=== PATIENT | male | born 1960 | race Caucasian/White ===

== ENCOUNTER → 2017-05-13 08:49 | Outpatient (CLI) | payer OTHER, SELFPAY ==
[2017-05-13 10:08] LABS: Absolute Lymphocyte Count 1.38 X10^3/ul (0.83-4.51); Absolute Neutrophil Count 2.8 X10^3/uL (2.0-7.7); Basophil# 0.06 X10^3/uL; Basophil% 1.3 % (0-1); Eosinophil# 0.06 X10^3/uL; Eosinophils% 1.3 % (0-5); Hematocrit 47.2 % (40-54); Hemoglobin 15.5 g/dl (13.0-16.5); Lymphocyte # 1.38 X10^3/ul (4.0); Lymphocyte % 28.9 % (19-41); Mean Corp Hgb Conc 32.8 g/gl (32-36); Mean Corpuscular Hgb 29.8 pg (27.0-32.0); Mean Corpuscular Volume 90.6 fL (80-94); Mean Platelet Vol. 10.5 fl (6.2-12.0); Monocyte% 10.5 % (0-10); Neutrophil # 2.76 X10^3/uL (2.7-7.7); Neutrophil % 57.8 % (47-70); POSITIVE COUNT NO; POSITIVE DIFFERENTIAL NO; POSITIVE MORPHOLOGY NO; Platelet Count 218 K/mm3 (150-450); RBC Distribution Width SD 43.3 fl (35.1-43.9); Red Blood Count 5.21 M/mm3 (4.6-6.2); White Blood Count 4.8 K/mm3 (4.4-11.0)
[2017-05-13 10:25] LABS: ALB/GLOB Ratio 1.1 RATIO (0.9-2.4); AST(SGOT) 20 U/L (15-37); Alanine Aminotransfer ALT/SGPT 21 U/L (16-61); Albumin, Serum 3.7 g/dL (3.2-5.0); Alkaline Phosphatase 82 U/L (45-117); Anion Gap 5 (5-15); BUN 12 mg/dL (7-18); BUN/Creat Ratio 15.7 RATIO (10-20); Calcium,Total 8.4 mg/dL (8.5-10.1); Chloride 105 mmol/L (98-107); Creatinine, Serum 0.76 mg/dL (0.70-1.30); EST Glomerular Filtration Rate 112 mL/min (>60); Est Glom Filt Rate - Afr Amer 135 mL/min (>60); Globulin 3.5 g/dL (2.2-4.2); Glucose 94 mg/dL (74-106); Potassium 4.2 mmol/L (3.5-5.1); Protein, Total 7.2 g/dL (6.4-8.2); Sodium Level 139 mmol/L (136-145)
== END ==
PROVIDERS: Family Provider Family Medicine; PCP Family Medicine; Visit Provider Family Medicine
DX: K62.5 Hemorrhage of anus and rectum (principal); R10.13 Epigastric pain
CPT/HCPCS: 36415; 80053; 85025

== ENCOUNTER 2017-07-01 19:18 | Emergency (ER) | payer OTHER, SELFPAY ==
[2017-07-01 19:19] VITALS: BP 145/88; PULSE 91; RESP 16; TEMP 37.1; O2SAT 96; BMI 25.0
--- NOTE | 2017-07-01 20:23 | RAD_ITS ---
STUDY: X-RAY - RIGHT KNEE REASON FOR EXAM: Male, 56 years old. Arthritis. Pain. TECHNIQUE: 4 view(s) of the knee. COMPARISON: None. FINDINGS: Normal visualized distal femur. Normal visualized proximal tibia and fibula. Normal proximal tibiofibular articulation. There is mild degenerative arthrosis of the medial femorotibial compartment. There is severe degenerative arthrosis of the lateral femorotibial compartment with severe joint space narrowing. Normal patellofemoral articulation. There is a moderate volume joint effusion. There is valgus angulation and lateral subluxation of the tibia. The soft tissue structures are unremarkable. RAD/Knee 4 or More Views IMPRESSION: No acute fracture or dislocation. Degenerative changes. Moderate effusion. Electronically Signed: Oscar Sher MD at 20:37 EDT , Service support ,
[2017-07-01] MEDS: Ibuprofen 400 MG Tablet 800 MG PO (20:34)
--- NOTE | 2017-07-01 22:02 | ED.DCSUM_ITS ---
- ER Visit Summary Date of Service: 07/01/17 Chief Complaint: [] Right knee pain/swelling History of Present Illness: The patient is a 56 M [] complaining of right knee pain/swelling beginning today. Reports she has a history of osteoarthritis in the knee. Denies a history of gout. He does have a history of pulmonary embolus for which he is chronically on Coumadin. Denies any injury to the knee. Patient reports he has so much swelling currently that he has a hard time flexing the leg and has painful ambulation. Denies fever or rash. No other complaints at this time. Physical Examination: [] There is significant swelling to the right knee. There is no warmth. There is no significant tenderness to palpation. There is difficulty with flexion past 15? as a result of pain. Remainder of exam is unremarkable. Test Results: [] Right knee x-ray 4 view reveals significant osteoarthritis with [id number] in the medial compartment. Emergency Department Course and Treatment: [] Patient provided ibuprofen orally for analgesia and swelling, Ritesh bandage. Patient was encouraged to follow-up with orthopedic surgeon for arthrocentesis and evaluation for total knee replacement. He voices understanding of discharge instructions. He was encouraged to ice. Return if symptoms worsen. Treatment Plan: [] Follow-up with orthopedic surgery. Disposition: [] Discharge, stable. Impression: [] Severe right knee osteoarthritis This note was generated with Llesiant dictation software. It may contain incorrect words, spelling, and punctuation that were not noted in review of the chart prior to signing ED Disposition - Plan for ED Patient: Chief Complaint: Lower Extremity Injury Referrals: Dc Glez MD [Primary Care Provider] -
--- NOTE | 2017-07-01 22:02 | ED.DEP ---
ED Disposition - Plan for ED Patient: Disposition: Home or Assisted Living Chief Complaint: Lower Extremity Injury Instructions: ED Effusion Knee, Osteoarthritis: Coping with Pain Prescriptions: Ibuprofen 800 mg PO TID PRN PRN #30 tab PRN Reason: Pain Referrals: Dc Glez MD [Primary Care Provider] -
[2017-07-01 22:14] VITALS: BP 141/70; PULSE 85; RESP 14; O2SAT 99
== END 2017-07-01 22:15 | disposition home or self-care (01) ==
PROVIDERS: Emergency Provider Emergency Medicine; Family Provider Family Medicine; PCP Family Medicine
DX: M17.11 Unilateral primary osteoarthritis, right knee (principal); Z86.711 Personal history of pulmonary embolism; Z79.01 Long term (current) use of anticoagulants
CPT/HCPCS: 73564; 99283

== ENCOUNTER 2017-08-15 07:18 | Inpatient (IN) | payer OTHER, SELFPAY ==
[2017-08-05 15:15] LABS: Hematocrit 36.6 % (40-54); Hemoglobin 11.5 g/dl (13.0-16.5); Mean Corp Hgb Conc 31.4 g/gl (32-36); Mean Corpuscular Hgb 28.9 pg (27.0-32.0); Mean Platelet Vol. 9.3 fl (6.2-12.0); Platelet Count 255 K/mm3 (150-450); RBC Distribution Width CV 14.4 % (11.6-14.6); RBC Distribution Width SD 48.4 fl (35.1-43.9); Red Blood Count 3.98 M/mm3 (4.6-6.2); White Blood Count 6.4 K/mm3 (4.4-11.0)
[2017-08-05 15:16] LABS: Scan Indicated on CBC? Y/N NO
--- NOTE | 2017-08-05 15:31 | RAD_ITS ---
STUDY: X-RAY CHEST REASON FOR EXAM: Male, 56 years old. Pre-op TECHNIQUE: Frontal and lateral views of the chest. COMPARISON: None. FINDINGS: There is hyperinflation of the lungs consistent with chronic obstructive lung disease (COPD). No infiltrates. No effusions. There is no demonstrated pleural abnormality. Normal size heart. Normal mediastinum and delia. Normal visualized pulmonary arteries. Normal visualized aortic arch and descending thoracic aorta. There are diffuse degenerative changes of the visualized thoracic spine. Normal visualized ribs, clavicles, and shoulders. There is no demonstrated abnormality of the visualized soft tissue structures of the upper abdomen. RAD/Chest PA and Lateral IMPRESSION: There are findings consistent with COPD. There is no evidence of acute chest disease. Electronically Signed: Oscar Sher MD at 15:40 EDT , Service support ,
[2017-08-05 15:39] VITALS: BP 109/63; PULSE 67; RESP 14; TEMP 37.4; O2SAT 97; BMI 24.7
--- NOTE | 2017-08-05 15:45 | EKG12_ITS ---
Test Reason : PRE OP Blood Pressure : / mmHG Vent. Rate : 057 BPM Atrial Rate : 057 BPM P-R Int : 144 ms QRS Dur : 078 ms QT Int : 406 ms P-R-T Axes : 048 019 022 degrees QTc Int : 395 ms Sinus bradycardia Otherwise normal ECG Confirmed by JENNIFER CONDON, SHAKEEL ([id number]), book or script editor MINA GRAYSON ([id number]) on 08/10/2017 3:18:37 PM Referred By: Hussain Flores Confirmed By:SHAKEEL RODRIGUEZ MD
[2017-08-05 15:55] LABS: Anion Gap 5 (5-15); BUN 14 mg/dL (7-18); BUN/Creat Ratio 17.7 RATIO (10-20); Calcium,Total 8.3 mg/dL (8.5-10.1); Chloride 106 mmol/L (98-107); Creatinine, Serum 0.79 mg/dL (0.70-1.30); EST Glomerular Filtration Rate 108 mL/min (>60); Est Glom Filt Rate - Afr Amer 130 mL/min (>60); Glucose 94 mg/dL (74-106); Potassium 4.3 mmol/L (3.5-5.1); Sodium Level 143 mmol/L (136-145)
[2017-08-05 16:50] LABS: AST(SGOT) 16 U/L (15-37); Alanine Aminotransfer ALT/SGPT 14 U/L (16-61); Albumin, Serum 3.1 g/dL (3.2-5.0); Alkaline Phosphatase 96 U/L (45-117); Bilirubin, Direct 0.15 mg/dL (0.00-0.30); Protein, Total 7.1 g/dL (6.4-8.2)
[2017-08-15] VITALS (20 sets, daily range): BP systolic 77–122; BP diastolic 39–85; PULSE 52–95; RESP 14–18; TEMP 36.3–37.2; O2SAT 97–100; BMI 24.7
[2017-08-15] MEDS: Acetaminophen 500 MG Tablet 1000 MG PO ×3 (06:03→22:57)
[2017-08-15] MEDS: oxyCODONE HCl Cr 10 MG Tablet PO (06:03)
[2017-08-15] MEDS: Lactated Ringers 1,000 ML 999 ML IV ×2 (06:30→13:30)
[2017-08-15 06:45] LABS: Partial Thromboplast Time 28.8 Seconds (24.1-36.2); Prothrombin Time (Protime)PT. 13.5 SECONDS (11.7-14.9)
[2017-08-15] MEDS: Cefazolin 2 GM in 0.9% Normal Saline 100 ML IV (07:22)
--- NOTE | 2017-08-15 07:25 | PCM.OPRPT ---
Report of Operation Date of Procedure: 08/15/17 Pre-Operative Diagnosis: Severe end-stage osteoarthritis right knee Post-Operative Diagnosis: Severe end-stage osteoarthritis right knee Surgery/Procedure Performed:: Total knee arthroplasty right Description of Surgical Findings:: Eburnation of bone, periarticular osteophytes consistent with tricompartmental osteoarthritis heat treat worker: Hussain Flores Type of Anesthesia:: Spinal Anesthesiologist: Chris Huber Special Medications: txa Specimen's removed: Bone and soft tissue Estimated Blood Loss (mL): 100 Fluids Replaced: See anesthesia report Description of Procedure: Implants: Beth triathlon size 5 CR femur, 6 tibia, 35 x 10 mm patella all cemented with Simplex. 11 mm ultra congruent CR implant Indications: Patient has severe end-stage osteoarthritis diagnosed via x-rays in the knee. They have failed all forms of conservative measures including activity modification, injections, anti-inflammatories, use of assistive device. The patient has pain that affects on a daily basis and prevents him from doing things that they enjoyed. They have elected to undergo the above procedure. The risks of the procedure were discussed at length and their questions were answered. Procedure description: The patient was greeted in the preoperative area. The right knee was then marked with a surgical marker. Patient was then taken to or [address]. They were administered a dose of antibiotics as well as tranexamic acid. Once adequate anesthesia was obtained and airway was secured to placed in supine position on the operating room table. A well-padded tourniquet was placed on the affected extremity. Leg was then prepped and draped in the usual sterile fashion from the knee down. Ioban was used on the skin. Surgical timeout was then performed and confirmed with all present. Six-inch Esmarch was used to examine the limb and tourniquet was then inflated to 250 mmHg. A longitudinal incision was then planned and carried out in the anterior aspect of the knee. The dissection was then carried the length of the incision the extensor mechanism was identified. Standard medial parapatellar arthrotomy was then performed revealing severe eburnation of bone and periarticular osteophytes. There is complete loss of cartilage especially in the medial compartment with varus alignment. Anterior fat pad was removed for visualization purposes and the anterior medial aspect of the tibia was skeletonized for exposure to the knee. The knee was then flexed the patella was inverted. Opening reamer was then used in the femur approximately 1 cm anterior to the attachment of the PCL. The intramedullary valgus wand was then placed in the femur set at 5? of valgus. The distal femoral cutting jig was then applied to the femur with anticipated resection of approximately 8 mm. This was then made with a oscillating saw. The sizing guide was then placed referencing off the posterior condyles and also reference off the epicondylar axis. This was measured and the appropriate size 4-in-1 cutting jig was then applied to the distal femur. Anterior posterior cuts were made followed by the anterior and posterior chamfer cuts. These bony pieces and fragments were removed and placed on the back table. Posterior retractor was then utilized and the tibia was subluxed anteriorly. Extramedullary tibial alignment jig was then applied to the tibia referencing off the medial one third of the tibial tubercle the anterior tibial spine the middle aspect of the tibiotalar joint. Also reference off patient's [place] slope. The tibial cutting jig was then pinned with anticipated resection of 2 mm off of the deficient medial tibial condyle. This cut was made with the oscillating saw. Once this was complete a laminar marketing data specialist was utilized in both medial lateral meniscus were removed and a posterior capsular osteophytes were also removed. Posterior capsule release was performed in the posterior capsule as well as the geniculate arteries are treated with the aqua Meron. The tibia was incised and the appropriate sized tibial tray was then pinned. The femoral trial was then placed and the knee was trialed. Full flexion-extension were easily achieved. The knee seemed to balance quite nicely. Any remaining osteophytes were removed at this time. Once this was complete the patella was everted and the Pedro patella reaming device was then utilized the patella was then placed in the appropriate jig and reamer was then used to remove approximately 9 mm of the undersurface of the patella. A soft tissue remaining was in the way was removed and patella trial was then placed listed maintain excellent tracking using the no thumbs technique. The tibial tray at this point was punched to accommodate the fins of the final implant. At this point cement was mixed on the back table. The trial components were removed and the knee was copiously irrigated. Did use a cocktail of injection for postoperative pain control. The final components were then cemented in the standard fashion and excess cement was removed with cement removal tools and patellar clamp is placed in the patella. As the cement had cured in full extension tourniquet was deflated and hemostasis was perfect with Bovie cautery as well as the aqua Manus. Needle is once again trialed with different size polyethylenes to ensure the full range of motion was achieved as well as excellent balancing ligamentously was achieved. At this point the knee was copiously irrigated. Final implant was then inserted locking mechanism was engaged and confirmed to be locked. The arthrotomy was then closed with #1 Vicryl aggravate type fashion interrupted. Subcutaneous tissue was closed with 0 Vicryl and surgical nirmal were placed in the skin. A occlusive silver impregnated dressing was then applied followed by well-padded sterile dressing secured with an Ritesh wrap. The patient was taken to the PACU in stable condition. No complications known at this time. Postoperatively we will maintain standard total knee postoperative protocol. The use of the physician phlebotomy lab assistant was integral during this procedure. They assisted with positioning placement of the tourniquet retracting closure and placement of the dressing. The procedure would have been much more difficult without their expertise and assistance. Given the patient's history of DVT as well as pulmonary embolism patient will likely require 2 midnight stay in full admission as he has been off Coumadin and has been bridged with Lovenox. He is certainly a higher level of care than standard total knee arthroplasty because of his medical comorbidities - Admit VTE Documentation VTE Present on Admission: Yes VTE Mechan Device Prophylaxis: SCD's, Thigh High SHINE Hose VTE Pharm Prophylaxis ordered?: Yes
[2017-08-15] MEDS: Scopolamine 1mg/72hr Patch 1 PATCH TD (09:38)
--- NOTE | 2017-08-15 09:44 | RAD_ITS ---
STUDY: X-RAY - RIGHT KNEE REASON FOR EXAM: Male, 56 years old. Total knee replacement. TECHNIQUE: AP and lateral view(s) of the knee. COMPARISON: Comparison is made with prior study dated July 01, 2017. FINDINGS: Normal visualized distal femur. Normal visualized proximal tibia and fibula. Normal proximal tibiofibular articulation. The patient is status post total knee replacement. There is good alignment. Postoperative soft tissue changes. RAD/Knee 1 or 2 Views IMPRESSION: Status post total knee replacement. There is good alignment. Postoperative soft tissue changes. Electronically Signed: Froylan Sims MD at 10:27 EDT Tel [phone], Service support ,
[2017-08-15] MEDS: Famotidine 20 MG Tablet PO (11:59)
[2017-08-15] MEDS: Celecoxib 200 MG Capsule PO ×2 (11:59→22:57)
[2017-08-15] MEDS: oxyCODONE 5 MG Tablet PO ×2 (12:49→19:17)
--- NOTE | 2017-08-15 13:42 | NURSING ---
Addendum entered by Jose Antonio Hirsch 08/15/17 14:28: Code blue hit to patient's room. Staff response to room. patient had apparently had a syncopal episode and was hypotensive at 77/39 just before syncope episode when patient begin complaining of feeling dizzy. Patient was assisted back to the bed once he regained conciousness and was placed in Trendelenburg position. His blood pressure progressively improved after returning to the bed (see vital signs intervention for values). Dr Vaz was paged and notified of the event. He ordered an IV bolus which was initiated. He also ordered a consultation for hospitalist service. Dr Vaz agreed to contact the hospitalist but requested that the electronic order be placed. Electronic order placed by this RN. Original Note: Code blue hit to patient's room. Staff response to room. patient had apparently had a syncopal episode and was hypotensive at 77/39 just before syncope episode when patient begin complaining of feeling dizzy. Patient was assisted back to the bed once he regained conciousness and was placed in reverse trendelenberg. His vital blood pressure progressively improved after returning to the bed. Dr Vaz was paged and notified of the event ordering an IV bolus of normal saline which was initiated. he also ordered a consultation for hospitalist service. Dr Vaz agreed to contact the hospitalist but requested that the electronic order be placed. electronic order placed.
[2017-08-15 13:50] LABS: Bedside Glucose 108 mg/dL (70-110)
[2017-08-15] MEDS: Lactated Ringers 1,000 ML 125 ML IV (14:04)
--- NOTE | 2017-08-15 14:27 | CHAPLAIN ---
Type of Pastoral Visit _x__ Initial Visit ___ Follow-up Visit ___ On-call Visit ___ General Patient Visit ___ Spiritual Assessment ___ Family Conference ___ Bereavement ___ Rapid Response ___ Code Blue ___ Other (describe below) Pastoral Care Referral From _x__ Patient _x__ Family ___ Nurse ___ Physician ___ Cable Installation Technician ___ Protection Officer ___ Other (describe below) Sacrament/Intervention _x__ Active listening ___ Anointing ___ Congregation ___ Bereavement ___ Communion ___ Dedra exploration ___ ___ Life review _x__ Prayer ___ Reconciliation ___ Sacrament of Sick _x__ Supportive presence ___ Wedding ___ Other (describe below) Pastoral Comments visit requested by daughter who is employee at hospital; visit occurred just moments after a fainting episode of patient, patient and family welcoming of support and a prayer
[2017-08-15] MEDS: Cefazolin 1 GM/50 ML BAG IV ×2 (14:51→23:00)
--- NOTE | 2017-08-15 15:29 | NURSING ---
spoke to Dr Vaz regarding patient condition and previous orders. Dr Vaz verified that he notified Dr Mas of the patient consult but could not confirm who would be seeing the patient
--- NOTE | 2017-08-15 16:21 | PCM.PROGNOTE ---
Subjective: Patient seen and examined. Patient is status post right total knee arthroplasty with Dr. Vaz earlier today. Patient reports a few hours after he was in his room from surgery, he was ambulated and became dizzy. He reports he told nursing he did not feel well and shortly after had an episode of syncope lasting a few minutes. He denies chest pain, shortness of breath. Denies other associated symptoms. He now states he feels well and has not had further episodes of dizziness or syncope. - Physical Exam General: Alert, Oriented x3, Cooperative HEENT: Atraumatic, PERRLA, EOMI, Normocephalic Neck: Supple, No JVD, Negative Carotid Bruits Lungs: Clear to auscultation, Normal air movement Cardiovascular: Regular rate, Regular Rhythm, Normal S1, Normal S2, No murmurs Abdomen: Bowel Sounds Present, Soft, Non Tender, Non-Distended Extremities: No clubbing, No cyanosis, No edema, Capillary Refill Less than 3 Seconds Skin: No rashes, No breakdown, - - Postop dressing dry and intact. Musculoskeletal: No Tenderness to Palpation of Joints or Extremities Neurological: Cranial nerves II-XII grossly intact, Neuro grossly intact Psych/Mental Status: Normal Affect, Appropriate Vital Signs Temp Pulse Resp BP Pulse Ox 98.4 F 57 L 16 119/85 H 100 08/15/17 14:58 08/15/17 14:58 08/15/17 14:58 08/15/17 14:58 08/15/17 14:58 Oxygen Flow Rate (L/min) 97 Oxygen Delivery Method Room Air Weight: 87.543 kg Body Mass Index (BMI) 24.7 Intake and Output for Last 24 Hours 08/13/17 08/14/17 08/15/17 23:59 23:59 23:59 Intake Total 1400 / 1400 Balance 1400 / 1400 Laboratory Tests Past 24 Hrs 08/15/17 06:20 PT 13.5 INR 1.0 APTT 28.8 POC Glucose 08/15/17 13:35 POC Glucose 108 Medical Necessity - Tobacco Use Smoking Status: Never smoker Assessment/Plan 1. Status post right total knee arthroplasty secondary to severe end-stage osteoarthritis right knee per Dr. Vaz. PT/OT. PRN pain regimen. IV cefazolin for 2 doses per surgery. 2. Syncopal episode-suspect secondary to hypotension. Blood pressure 77/39 at time of the event. Blood pressure now stable. Obtain orthostatic vitals. Continue IV fluids. Continue to monitor. 3. History of DVT/PE-restart Coumadin with Lovenox bridge tomorrow per surgery. Trend INR. DVT prophylaxis-Coumadin, bridge with Lovenox subcu This patient was seen by ELSY Kilpatrick under the supervision of Dr. Mas.
[2017-08-15] MEDS: 0.9% Normal Saline 1,000 ML 125 ML IV (16:50)
[2017-08-15] MEDS: Senna/Docusate Sodium 1 Tablet 2 TABLET PO (22:57)
[2017-08-15] MEDS: morphine SR 15 MG Tablet PO (22:57)
[2017-08-16] VITALS (11 sets, daily range): BP systolic 108–122; BP diastolic 53–70; PULSE 54–107; RESP 18; TEMP 36.5–37.3; O2SAT 97–100
[2017-08-16] MEDS: Acetaminophen 500 MG Tablet 1000 MG PO ×3 (05:52→21:11)
[2017-08-16 06:02] LABS: Hematocrit 34.8 % (40-54); Hemoglobin 10.6 g/dl (13.0-16.5); Mean Corp Hgb Conc 30.5 g/gl (32-36); Mean Corpuscular Hgb 28.6 pg (27.0-32.0); Mean Corpuscular Volume 93.8 fL (80-94); Mean Platelet Vol. 9.8 fl (6.2-12.0); Platelet Count 172 K/mm3 (150-450); RBC Distribution Width CV 14.8 % (11.6-14.6); RBC Distribution Width SD 50.6 fl (35.1-43.9); Red Blood Count 3.71 M/mm3 (4.6-6.2); White Blood Count 6.8 K/mm3 (4.4-11.0)
[2017-08-16 06:03] LABS: International Normalized Ratio 1.1; Prothrombin Time (Protime)PT. 14.3 SECONDS (11.7-14.9)
[2017-08-16 06:06] LABS: Scan Indicated on CBC? Y/N NO
[2017-08-16 06:18] LABS: Anion Gap 6 (5-15); BUN 10 mg/dL (7-18); Chloride 108 mmol/L (98-107); Creatinine, Serum 0.71 mg/dL (0.70-1.30); EST Glomerular Filtration Rate 121 mL/min (>60); Est Glom Filt Rate - Afr Amer 146 mL/min (>60); Estimated Creatinine Clearance 135.07 ml/min; Glucose 96 mg/dL (74-106); Potassium 4.3 mmol/L (3.5-5.1); Sodium Level 144 mmol/L (136-145)
--- NOTE | 2017-08-16 07:32 | PN.ORTHO_ITS ---
Subjective: Patient sitting up in bed sleeping. Patient easy to awake. Patient states pain is well-managed. Patient states he had an episode where he briefly passed out yesterday. States having fluid and rest he feels fine, and has not had any further episodes. Denies chest pain, shortness breath, calf pain, nausea vomiting. Objective: Dressing has a small amount of blood soaked at the distal third of the dressing , otherwise intact. Patient afebrile, neurovascular intact. Patient is bradycardic with a rate of 54. Vital signs otherwise within normal limits. Labs within normal limits. Negative signs and symptoms of DVT. - Physical Exam General: Alert, Oriented x3, Cooperative HEENT: PERRLA Oral: Moist Mucosa Neurological: Cranial nerves II-XII grossly intact Psych/Mental Status: Normal Affect, Alert and oriented to time, place, person, mood and affect Vital Signs Temp Pulse Resp BP Pulse Ox 98.8 F 54 L 18 111/59 L 98 08/16/17 04:15 08/16/17 04:15 08/16/17 04:15 08/16/17 04:15 08/16/17 04:15 Oxygen Flow Rate (L/min) 97 Oxygen Delivery Method Room Air Weight: 87.543 kg Body Mass Index (BMI) 24.7 Intake and Output for Last 24 Hours 08/14/17 08/15/17 08/16/17 23:59 23:59 23:59 Intake Total 2581 / 2581 2828 / 2828 Output Total 350 / 350 3200 / 3200 Balance 2231 / 2231 -372 / -372 Laboratory Tests Past 24 Hrs 08/16/17 08/16/17 08/16/17 05:30 05:30 05:30 WBC 6.8 RBC 3.71 L Hgb 10.6 L Hct 34.8 L MCV 93.8 MCH 28.6 MCHC 30.5 L RDW 14.8 H RDW Differential 50.6 H Plt Count 172 MPV 9.8 PT 14.3 INR 1.1 Sodium 144 Potassium 4.3 Chloride 108 H Carbon Dioxide 30.0 Anion Gap 6 BUN 10 Creatinine 0.71 Estim Creat Clear Calc 135.07 Est GFR (MDRD) Af Amer 146 Est GFR (MDRD) Non-Af 121 BUN/Creatinine Ratio 14.0 Glucose 96 Calcium 8.0 L POC Glucose 08/15/17 13:35 POC Glucose 108 Medical Necessity - Tobacco Use Smoking Status: Never smoker Assessment/Plan Status post right total knee arthroplasty Plan 1. Continue all pain medications as prescribed 2. Begin physical therapy today, weight-bear as tolerated, with walker. 3. Restart Coumadin today as prescribed, bridge with Lovenox as prescribed for postop DVT prophylaxis 4. Encourage incentive spirometry 5. Possible discharge home tomorrow 6. Medicine will continue to follow and manage medically
[2017-08-16] MEDS: oxyCODONE 5 MG Tablet PO (07:56)
[2017-08-16] MEDS: 0.9% NaCl Peripheral Flush Adult/Peds IV (07:57)
--- NOTE | 2017-08-16 08:45 | NURSING ---
Pt up with therapy in [place]. stated that he felt dizzy and lightheaded and clammy when sitting up. Pt lying on therapy cot when this nurse entered room. Pt states he was doing heel slides and felt a pop in his knee and then became lightheaded. Kelly charge nurse into therapy room and obtained bp. Marni Champagne RUG CLEANER HELPER also at pt's side. EKG completed, new orders obtained.
[2017-08-16 09:21] LABS: Bedside Glucose 100 mg/dL (70-110)
--- NOTE | 2017-08-16 09:25 | ECHOD_ITS ---
Reason For Study: Syncope Procedure This was a 2D Doppler, Color Flow transthoracic echocardiogram. Testing done with patient supine. Patient said he was unable to lay on his left side due to the recent surgery on his right knee. Exam performed portable in patient room. Left Ventricle Normal LV size. Left ventricular systolic function is normal. The estimated ejection fraction is 65 %. Diastolic function: considered indeterminate. No regional wall motion abnormalities noted. Right Ventricle Normal RV size. Normal systolic function. Atria Normal left atrium. Normal right atrium. No doppler evidence for ASD. Mitral Valve There is no mitral annular calcification. Normal mitral valve. Trivial mitral valve insufficiency. Tricuspid Valve Normal tricuspid valve. Trivial tricuspid valve insufficiency. Right ventricular systolic pressure estimated to be 35 mmHg. Aortic Valve Trisinus/trileaflet aortic valve. Normal aortic valve. Pulmonic Valve The pulmonic valve is not well visualized. Trivial pulmonic valve insufficiency. Great Vessels Normal sized aortic root. Pericardium/Pleural No pericardial effusion. MMode/2D Measurements & Calculations LVIDd: 5.4 cm IVSd: 1.0 cm LVOT diam: 2.0 cm LVIDs: 3.0 cm LVPWd: 0.95 cm LVOT area: 3.2 cm2 FS: 45.4 % Ao root diam: 3.0 cm LAV(MOD-bp): 42.7 ml LA A4 area: 19.4 cm2 LA dimension: 3.6 cm LAV(MOD-bp) Indexed: 20.0 ml/m2 LAV(MOD-sp2): 31.2 ml LAV(MOD-sp4): 53.0 ml RA A4 area: 16.6 cm2 Time Measurements MV dec time: 0.27 sec Doppler Measurements & Calculations MV E max michael: 83.4 cm/sec Lat Peak E' Michael: 19.7 cm/sec Med Peak E' Michael: 15.1 cm/sec MV A max michael: 84.6 cm/sec E/E' lat: 4.2 E/E' med: 5.5 MV E/A: 0.99 MV V2 max: 98.7 cm/sec MV P1/2t max michael: 99.2 cm/sec Ao V2 max: 185.5 cm/sec MV max P.9 mmHg MV P1/2t: 72.6 msec Ao max P.8 mmHg MV V2 mean: 48.1 cm/sec MV dec slope: 400.3 cm/sec2 Ao V2 mean: 117.5 cm/sec MV mean P.1 mmHg MVA(P1/2t): 3.0 cm2 Ao mean P.6 mmHg MV V2 VTI: 28.2 cm Ao V2 VTI: 33.4 cm MVA(VTI): 2.5 cm2 JOSE ANTONIO(I,D): 2.1 cm2 JOSE ANTONIO(V,D): 2.2 cm2 LV V1 max: 128.5 cm/sec SV(LVOT): 70.7 ml PA V2 max: 142.5 cm/sec LV V1 max P.6 mmHg LV V1 mean P.2 mmHg LV V1 mean: 81.7 cm/sec LV V1 VTI: 21.8 cm TR max michael: 281.7 cm/sec TR max P.7 mmHg Interpretation Summary Left ventricular systolic function is normal. The estimated ejection fraction is 65 %. Trivial mitral valve insufficiency. Trivial tricuspid valve insufficiency. Trivial pulmonic valve insufficiency. Right ventricular systolic pressure estimated to be 35 mmHg. Diastolic function: considered indeterminate. Ordering Physician: ELSY Kilpatrick Referring Physician: Hussain Flores Performed By: Mikel Fontanez RCS
--- NOTE | 2017-08-16 09:30 | NURSING ---
scopolamine patch removed at this time per Marni Champagne NP's order.
[2017-08-16] MEDS: Enoxaparin 80 MG/0.8 ML Syringe SC ×2 (10:35→21:49)
[2017-08-16] MEDS: Famotidine 20 MG Tablet PO (10:36)
[2017-08-16] MEDS: Celecoxib 200 MG Capsule PO (10:36)
[2017-08-16] MEDS: Senna/Docusate Sodium 1 Tablet 2 TABLET PO ×2 (10:36→21:10)
[2017-08-16] MEDS: traMADol 50 MG Tablet PO (13:25)
--- NOTE | 2017-08-16 13:45 | CASEMGMT ---
JG CASTANO Face to Face with patient for initial transition planning/care coordination assessment. RN OMAIRA introduced self and role at [facility]. Patient lying in bed, alert and oriented. Patient willing to participate in assessment and is able to answer all questions appropriately. Care providers, pharmacy, and demographics verified. Patient lives in 1 story home with . Patient states that he has a walker, cane, and crutches at home. Patient wishes to discharge home and is setup with outpatient therapy at [facility] with providing transportation. Patient states he has no further needs or concerns at this time. CM to follow for discharge planning needs that may arise. Disposition Plan: Patient to discharge home with outpatient therapy, family support and follow-up plans in place.
--- NOTE | 2017-08-16 13:56 | EKG12_ITS ---
Test Reason : Blood Pressure : / mmHG Vent. Rate : 060 BPM Atrial Rate : 060 BPM P-R Int : 146 ms QRS Dur : 088 ms QT Int : 402 ms P-R-T Axes : 056 009 061 degrees QTc Int : 402 ms Normal sinus rhythm Normal ECG When compared with ECG of 05-AUG-2017 15:09, No significant change was found Confirmed by DARSHANA CONDON, CRAMENZA ([id number]), proposal editor MINA GRAYSON ([id number]) on 08/30/2017 12:59:19 PM Referred By: Hussain Flores Confirmed By:CARMENZA GILLILAND MD
--- NOTE | 2017-08-16 16:04 | PN_ITS ---
<Marni Wills - Last Filed: 08/16/17 16:04> Subjective: Patient seen and examined. Currently in therapy room working with physical therapy. Patient suddenly became diaphoretic and felt like he was going to pass out, similar to yesterday's episode. He was lying flat at that time. Vital signs were stable. EKG without evidence of ischemia or acute changes. Patient did not pass out and felt better within a few minutes time. He denied chest pain, shortness of breath. - Physical Exam General: Alert, Oriented x3, Cooperative HEENT: Atraumatic, PERRLA, EOMI, Normocephalic Neck: Supple, No JVD, Negative Carotid Bruits Lungs: Clear to auscultation, Normal air movement Cardiovascular: Regular rate, Regular Rhythm, Normal S1, Normal S2, No murmurs Abdomen: Bowel Sounds Present, Soft, Non Tender, Non-Distended Extremities: No clubbing, No cyanosis, No edema, Capillary Refill Less than 3 Seconds Skin: No rashes, No breakdown, - - Right knee dressing clean dry and intact. Musculoskeletal: No Tenderness to Palpation of Joints or Extremities Neurological: Cranial nerves II-XII grossly intact, Neuro grossly intact Psych/Mental Status: Normal Affect, Appropriate Vital Signs Temp Pulse Resp BP Pulse Ox 98.7 F 72 18 108/53 L 97 08/16/17 14:38 08/16/17 14:38 08/16/17 14:38 08/16/17 14:38 08/16/17 14:38 Oxygen Flow Rate (L/min) 97 Oxygen Delivery Method Room Air Weight: 87.543 kg Body Mass Index (BMI) 24.7 Orthostatic Vital Signs Start: 08/16/17 11:55 Freq: Status: Active Protocol: Activity Type Activity Date Activity User E-Sign Co-Sign Detail Recorded Client Recorded Date Recorded By Document 08/16/17 11:55 [id number] 08/16/17 11:56 08/16/17 11:55 Orthostatic Vitals Sitting -Blood Pressure (90/60-120/80) 119/70 -Extremity Use Right Arm -Pulse Rate (60-100) 107 H Lying -Blood Pressure (90/60-120/80) 116/65 -Extremity Use Right Arm -Pulse Rate (60-100) 55 L Intake and Output for Last 24 Hours 08/14/17 08/15/17 08/16/17 23:59 23:59 23:59 Intake Total 2581 / 2581 2828 / 2828 Output Total 350 / 350 3200 / 3200 Balance 2231 / 2231 -372 / -372 Laboratory Tests Past 24 Hrs 08/16/17 08/16/17 08/16/17 05:30 05:30 05:30 WBC 6.8 RBC 3.71 L Hgb 10.6 L Hct 34.8 L MCV 93.8 MCH 28.6 MCHC 30.5 L RDW 14.8 H RDW Differential 50.6 H Plt Count 172 MPV 9.8 PT 14.3 INR 1.1 Sodium 144 Potassium 4.3 Chloride 108 H Carbon Dioxide 30.0 Anion Gap 6 BUN 10 Creatinine 0.71 Estim Creat Clear Calc 135.07 Est GFR (MDRD) Af Amer 146 Est GFR (MDRD) Non-Af 121 BUN/Creatinine Ratio 14.0 Glucose 96 Calcium 8.0 L Troponin I 08/16/17 05:30 WBC RBC Hgb Hct MCV MCH MCHC RDW RDW Differential Plt Count MPV PT INR Sodium Potassium Chloride Carbon Dioxide Anion Gap BUN Creatinine Estim Creat Clear Calc Est GFR (MDRD) Af Amer Est GFR (MDRD) Non-Af BUN/Creatinine Ratio Glucose Calcium Troponin I < 0.015 POC Glucose 08/16/17 09:13 POC Glucose 100 Medical Necessity - Tobacco Use Smoking Status: Never smoker Assessment/Plan 1. Status post right total knee arthroplasty secondary to severe end-stage osteoarthritis right knee per Dr. Vaz. PT/OT. PRN pain regimen. IV cefazolin for 2 doses per surgery. 2. Syncopal episode-suspect secondary to hypotension during initial episode. Patient had additional episode of presyncope today. His blood pressure was stable at that time. Further suspect his syncope/presyncope is due to previous pain regimen. Patient was placed on scheduled MS Contin as well as as needed OxyIR. Scheduled MS Contin has been discontinued. His pain is now well controlled on tramadol. EKG during presyncopal episode today unremarkable. Troponin negative. Echocardiogram ordered which is pending. Patient worked with therapy this afternoon after medication adjustments and denied further dizziness, presyncope. Continue to monitor. 3. History of DVT/PE-restart Coumadin with Lovenox bridge tomorrow per surgery. Trend INR. Discussed with patient's novel anticoagulation such as Eliquis or Xarelto. Patient is going to consider this however he feels like he will stay with Coumadin at this time. DVT prophylaxis-Coumadin, bridge with Lovenox subcu This patient was seen by ELSY Kilpatrick under the supervision of Dr. Greenwood. <TimoIram E - Last Filed: 08/16/17 16:32> - Physical Exam Vital Signs Temp Pulse Resp BP Pulse Ox 98.7 F 72 18 108/53 L 97 08/16/17 14:38 08/16/17 14:38 08/16/17 14:38 08/16/17 14:38 08/16/17 14:38 Oxygen Flow Rate (L/min) 97 Oxygen Delivery Method Room Air Weight: 193 lb Body Mass Index (BMI) 24.7 Orthostatic Vital Signs Start: 08/16/17 11:55 Freq: Status: Active Protocol: Activity Type Activity Date Activity User E-Sign Co-Sign Detail Recorded Client Recorded Date Recorded By Document 08/16/17 11:55 [id number] 08/16/17 11:56 08/16/17 11:55 Orthostatic Vitals Sitting -Blood Pressure (90/60-120/80) 119/70 -Extremity Use Right Arm -Pulse Rate (60-100) 107 H Lying -Blood Pressure (90/60-120/80) 116/65 -Extremity Use Right Arm -Pulse Rate (60-100) 55 L Intake and Output for Last 24 Hours 08/14/17 08/15/17 08/16/17 23:59 23:59 23:59 Intake Total 2581 / 2581 3228 / 3228 Output Total 350 / 350 3475 / 3475 Balance 2231 / 2231 -247 / -247 Laboratory Tests Past 24 Hrs 08/16/17 08/16/17 08/16/17 05:30 05:30 05:30 WBC 6.8 RBC 3.71 L Hgb 10.6 L Hct 34.8 L MCV 93.8 MCH 28.6 MCHC 30.5 L RDW 14.8 H RDW Differential 50.6 H Plt Count 172 MPV 9.8 PT 14.3 INR 1.1 Sodium 144 Potassium 4.3 Chloride 108 H Carbon Dioxide 30.0 Anion Gap 6 BUN 10 Creatinine 0.71 Estim Creat Clear Calc 135.07 Est GFR (MDRD) Af Amer 146 Est GFR (MDRD) Non-Af 121 BUN/Creatinine Ratio 14.0 Glucose 96 Calcium 8.0 L Troponin I 08/16/17 05:30 WBC RBC Hgb Hct MCV MCH MCHC RDW RDW Differential Plt Count MPV PT INR Sodium Potassium Chloride Carbon Dioxide Anion Gap BUN Creatinine Estim Creat Clear Calc Est GFR (MDRD) Af Amer Est GFR (MDRD) Non-Af BUN/Creatinine Ratio Glucose Calcium Troponin I < 0.015 POC Glucose 08/16/17 09:13 POC Glucose 100 Assessment/Plan Hospitalist note: I am seeing this patient in conjunction with Marni Wills. I independently seen and examined the patient. Progress note above and laboratory data reviewed and I agree with above treatment plan. Patient was seen for consultation after he had postoperative syncope. He underwent right total knee arthroplasty yesterday. Was supposed to be, patient became hypotensive and he passed out. Today, he had another episode of dizziness while he is doing physical therapy. He denies any preceding symptoms such as chest pain or shortness of breath. Denied palpitations. He stated that he was cold and clammy as well as sweating suggestive of vasovagal syncope. His EKG done today and revealed normal sinus rhythm without evidence of acute ischemic changes or cardiac arrhythmias. Troponin was negative ?1. He denies any past cardiac history. - Physical Exam General: Alert, Oriented x3, Cooperative, No apparent distress. HEENT: Atraumatic, PERRLA, EOMI. Neck: Supple, No JVD, Negative Carotid Bruits, Trachea Midline, Thyroid Normal. Lungs: Clear to auscultation, Normal air movement, No rhonchi, No wheeze, No rales. Cardiovascular: Regular rate, Regular Rhythm, Normal S1, Normal S2, PMI Normal. Abdomen: Bowel Sounds Present, Soft, Non Tender, Non-Distended, No Hepato- splenomegaly. Extremities: No clubbing, No cyanosis, No edema Skin: No rashes, No breakdown Neurological: Neuro grossly intact Vital Signs are stable. Assessment and plan: #1 syncope: Likely vasovagal syncope. EKG was unremarkable. He has been on IV fluids. Routine blood work was unremarkable except for postoperative anemia. 2D echocardiogram ordered. Plan to continue IV fluids, repeat orthostatic vitals tomorrow morning. #2 status post right total knee replacement: Orthopedic surgery is managing. #3 history of DVT/PE: Patient used to be on Coumadin. At this time, is on Lovenox twice daily for bridging as well as 20, INR still subtherapeutic. This note was generated with [email or web address] dictation software. It may contain incorrect words, spelling, and punctuation that were not noted in checking the note before signing. Code Visit Inpatient E&M: 58665 Subs Hosp L2
[2017-08-17] VITALS (12 sets, daily range): BP systolic 88–136; BP diastolic 51–97; PULSE 70–109; RESP 16–18; TEMP 36.4–37.1; O2SAT 97–99
[2017-08-17 05:49] LABS: Hematocrit 33.8 % (40-54); Hemoglobin 10.5 g/dl (13.0-16.5); Mean Corp Hgb Conc 31.1 g/gl (32-36); Mean Corpuscular Hgb 28.7 pg (27.0-32.0); Mean Corpuscular Volume 92.3 fL (80-94); Platelet Count 174 K/mm3 (150-450); RBC Distribution Width CV 14.6 % (11.6-14.6); RBC Distribution Width SD 49.7 fl (35.1-43.9); Red Blood Count 3.66 M/mm3 (4.6-6.2); White Blood Count 8.5 K/mm3 (4.4-11.0)
[2017-08-17 05:51] LABS: International Normalized Ratio 1.3; Prothrombin Time (Protime)PT. 15.8 SECONDS (11.7-14.9); Scan Indicated on CBC? Y/N NO
[2017-08-17] MEDS: Acetaminophen 500 MG Tablet 1000 MG PO ×3 (06:41→21:35)
[2017-08-17] MEDS: Senna/Docusate Sodium 1 Tablet 2 TABLET PO (09:52)
[2017-08-17] MEDS: Famotidine 20 MG Tablet PO (09:52)
[2017-08-17] MEDS: Enoxaparin 80 MG/0.8 ML Syringe SC ×2 (09:52→21:35)
--- NOTE | 2017-08-17 09:59 | PCM.PROGNOTE ---
<Marni Wills - Last Filed: 08/17/17 10:05> Subjective: Patient seen and examined. Working with therapy. States pain has been well controlled on tramadol. Did have another episode of dizziness this morning while standing from seated position to go to the restroom. No syncope. He states this was not is severe as previous episodes of dizziness/syncope. No other current complaints. - Physical Exam General: Alert, Oriented x3, Cooperative, No apparent distress HEENT: Atraumatic, PERRLA, EOMI, Normocephalic Neck: Supple, No JVD, Negative Carotid Bruits Lungs: Clear to auscultation, Normal air movement Cardiovascular: Regular rate, Regular Rhythm, Normal S1, Normal S2, No murmurs Abdomen: Bowel Sounds Present, Soft, Non Tender, Non-Distended Extremities: No clubbing, No cyanosis, No edema, Capillary Refill Less than 3 Seconds Skin: - - Right knee dressing clean dry and intact. Musculoskeletal: No Tenderness to Palpation of Joints or Extremities Neurological: Cranial nerves II-XII grossly intact Psych/Mental Status: Normal Affect, Appropriate Vital Signs Temp Pulse Resp BP Pulse Ox 97.6 F L 98 16 115/65 98 08/17/17 07:43 08/17/17 09:29 08/17/17 07:43 08/17/17 09:29 08/17/17 07:43 Oxygen Flow Rate (L/min) 97 Oxygen Delivery Method Room Air Weight: 87.543 kg Body Mass Index (BMI) 24.7 Orthostatic Vital Signs Start: 08/16/17 11:55 Freq: Status: Active Protocol: Activity Type Activity Date Activity User E-Sign Co-Sign Detail Recorded Client Recorded Date Recorded By Document 08/17/17 09:29 TDW [id number] 08/17/17 09:30 TDW 08/17/17 09:29 Orthostatic Vitals Standing -Blood Pressure (90/60-120/80) 88/61 L -Extremity Use Left Arm -Pulse Rate (60-100) 107 H Sitting -Blood Pressure (90/60-120/80) 106/58 L -Extremity Use Left Arm -Pulse Rate (60-100) 81 Lying -Blood Pressure (90/60-120/80) 115/65 -Extremity Use Left Arm -Pulse Rate (60-100) 98 Intake and Output for Last 24 Hours 08/15/17 08/16/17 08/17/17 23:59 23:59 23:59 Intake Total 2581 / 2581 3928 / 3928 400 / 400 Output Total 350 / 350 4125 / 4125 925 / 925 Balance 2231 / 2231 -197 / -197 -525 / -525 Laboratory Tests Past 24 Hrs 08/16/17 08/17/17 08/17/17 05:30 05:35 05:35 WBC 8.5 RBC 3.66 L Hgb 10.5 L Hct 33.8 L MCV 92.3 MCH 28.7 MCHC 31.1 L RDW 14.6 RDW Differential 49.7 H Plt Count 174 MPV 10.0 PT 15.8 H INR 1.3 Troponin I < 0.015 Medical Necessity - Tobacco Use Smoking Status: Never smoker Assessment/Plan 1. Status post right total knee arthroplasty secondary to severe end-stage osteoarthritis right knee per Dr. Vaz. PT/OT. PRN pain regimen. Patient's pain is well controlled on tramadol. Recommend discharging on tramadol. Patient did not tolerate MS Contin or OxyIR. 2. Orthostatic hypotension/dizziness/syncopal episode during admission-patient has not had further episodes of syncope but continues to have dizziness. Orthostatic vitals positive this morning. 500 mL normal saline bolus ordered, then continue normal saline at 125 mL an hour. Repeat orthostatic vitals in a.m. EKG unremarkable. Troponin negative. Echocardiogram showed an EF of 65%, RVSP 35 mmHg. No episodes on telemetry. 3. History of DVT/PE-continue Coumadin with Lovenox bridge. Trend INR. Discussed with patient's novel anticoagulation such as Eliquis or Xarelto. Patient is going to consider this however he feels like he will stay with Coumadin at this time. 4. Postoperative anemia, mild-expected outcome secondary to orthopedic surgery. Stable. DVT prophylaxis-Coumadin, bridge with Lovenox subcu This patient was seen by ELSY Kilpatrick under the supervision of Dr. Greenwood. <Iram Greenwood E - Last Filed: 08/17/17 10:56> - Physical Exam Vital Signs Temp Pulse Resp BP Pulse Ox 97.6 F L 98 16 115/65 98 08/17/17 07:43 08/17/17 09:29 08/17/17 07:43 08/17/17 09:29 08/17/17 07:43 Oxygen Flow Rate (L/min) 97 Oxygen Delivery Method Room Air Weight: 193 lb Body Mass Index (BMI) 24.7 Orthostatic Vital Signs Start: 08/16/17 11:55 Freq: Status: Active Protocol: Activity Type Activity Date Activity User E-Sign Co-Sign Detail Recorded Client Recorded Date Recorded By Document 08/17/17 09:29 TDW [id number] 08/17/17 09:30 TDW 08/17/17 09:29 Orthostatic Vitals Standing -Blood Pressure (90/60-120/80) 88/61 L -Extremity Use Left Arm -Pulse Rate (60-100) 107 H Sitting -Blood Pressure (90/60-120/80) 106/58 L -Extremity Use Left Arm -Pulse Rate (60-100) 81 Lying -Blood Pressure (90/60-120/80) 115/65 -Extremity Use Left Arm -Pulse Rate (60-100) 98 Intake and Output for Last 24 Hours 08/15/17 08/16/17 08/17/17 23:59 23:59 23:59 Intake Total 2581 / 2581 3928 / 3928 400 / 400 Output Total 350 / 350 4125 / 4125 925 / 925 Balance 2231 / 2231 -197 / -197 -525 / -525 Laboratory Tests Past 24 Hrs 08/17/17 08/17/17 05:35 05:35 WBC 8.5 RBC 3.66 L Hgb 10.5 L Hct 33.8 L MCV 92.3 MCH 28.7 MCHC 31.1 L RDW 14.6 RDW Differential 49.7 H Plt Count 174 MPV 10.0 PT 15.8 H INR 1.3 Assessment/Plan Hospitalist note: I am seeing this patient in conjunction with Marni Wills. I independently seen and examined the patient. Progress note above and I agree with the above treatment plan. He has no more syncopal episodes. He is still having dizziness on standing, had one episode this morning but he did not pass out. His orthostatic vitals are still positive this morning. a - Physical Exam General: Alert, Oriented x3, Cooperative, No apparent distress. HEENT: Atraumatic, PERRLA, EOMI. Neck: Supple, No JVD, Negative Carotid Bruits, Trachea Midline, Thyroid Normal. Lungs: Clear to auscultation, Normal air movement, No rhonchi, No wheeze, No rales. Cardiovascular: Regular rate, Regular Rhythm, Normal S1, Normal S2, PMI Normal. Abdomen: Bowel Sounds Present, Soft, Non Tender, Non-Distended, No Hepato-splenomegaly. Extremities: No clubbing, No cyanosis, No edema Skin: No rashes, No breakdown Neurological: Neuro grossly intact Vital Signs are stable. Assessment and plan: #1 syncope: Likely vasovagal syncope. Orthostatic vitals are still positive. EKG was unremarkable. 2D echocardiogram revealed normal ejection fraction, no significant valvular heart disease and no wall motion abnormalities. Plan to give him bolus of IV fluids and maintain him on IV fluids. #2 status post right total knee replacement: Orthopedic surgery is managing. #3 history of DVT/PE: Patient used to be on Coumadin. At this time, is on Lovenox twice daily for bridging as well as Coumadin, INR still subtherapeutic. This note was generated with [employer] dictation software. It may contain incorrect words, spelling, and punctuation that were not noted in checking the note before signing. Code Visit Inpatient E&M: 16694 Subs Hosp L2
--- NOTE | 2017-08-17 10:05 | PN_ITS ---
<Marni Wills - Last Filed: 08/17/17 10:05> Subjective: Patient seen and examined. Working with therapy. States pain has been well controlled on tramadol. Did have another episode of dizziness this morning while standing from seated position to go to the restroom. No syncope. He states this was not is severe as previous episodes of dizziness/syncope. No other current complaints. - Physical Exam General: Alert, Oriented x3, Cooperative, No apparent distress HEENT: Atraumatic, PERRLA, EOMI, Normocephalic Neck: Supple, No JVD, Negative Carotid Bruits Lungs: Clear to auscultation, Normal air movement Cardiovascular: Regular rate, Regular Rhythm, Normal S1, Normal S2, No murmurs Abdomen: Bowel Sounds Present, Soft, Non Tender, Non-Distended Extremities: No clubbing, No cyanosis, No edema, Capillary Refill Less than 3 Seconds Skin: - - Right knee dressing clean dry and intact. Musculoskeletal: No Tenderness to Palpation of Joints or Extremities Neurological: Cranial nerves II-XII grossly intact Psych/Mental Status: Normal Affect, Appropriate Vital Signs Temp Pulse Resp BP Pulse Ox 97.6 F L 98 16 115/65 98 08/17/17 07:43 08/17/17 09:29 08/17/17 07:43 08/17/17 09:29 08/17/17 07:43 Oxygen Flow Rate (L/min) 97 Oxygen Delivery Method Room Air Weight: 87.543 kg Body Mass Index (BMI) 24.7 Orthostatic Vital Signs Start: 08/16/17 11:55 Freq: Status: Active Protocol: Activity Type Activity Date Activity User E-Sign Co-Sign Detail Recorded Client Recorded Date Recorded By Document 08/17/17 09:29 TDW [id number] 08/17/17 09:30 TDW 08/17/17 09:29 Orthostatic Vitals Standing -Blood Pressure (90/60-120/80) 88/61 L -Extremity Use Left Arm -Pulse Rate (60-100) 107 H Sitting -Blood Pressure (90/60-120/80) 106/58 L -Extremity Use Left Arm -Pulse Rate (60-100) 81 Lying -Blood Pressure (90/60-120/80) 115/65 -Extremity Use Left Arm -Pulse Rate (60-100) 98 Intake and Output for Last 24 Hours 08/15/17 08/16/17 08/17/17 23:59 23:59 23:59 Intake Total 2581 / 2581 3928 / 3928 400 / 400 Output Total 350 / 350 4125 / 4125 925 / 925 Balance 2231 / 2231 -197 / -197 -525 / -525 Laboratory Tests Past 24 Hrs 08/16/17 08/17/17 08/17/17 05:30 05:35 05:35 WBC 8.5 RBC 3.66 L Hgb 10.5 L Hct 33.8 L MCV 92.3 MCH 28.7 MCHC 31.1 L RDW 14.6 RDW Differential 49.7 H Plt Count 174 MPV 10.0 PT 15.8 H INR 1.3 Troponin I < 0.015 Medical Necessity - Tobacco Use Smoking Status: Never smoker Assessment/Plan 1. Status post right total knee arthroplasty secondary to severe end-stage osteoarthritis right knee per Dr. Vaz. PT/OT. PRN pain regimen. Patient's pain is well controlled on tramadol. Recommend discharging on tramadol. Patient did not tolerate MS Contin or OxyIR. 2. Orthostatic hypotension/dizziness/syncopal episode during admission-patient has not had further episodes of syncope but continues to have dizziness. Orthostatic vitals positive this morning. 500 mL normal saline bolus ordered, then continue normal saline at 125 mL an hour. Repeat orthostatic vitals in a.m. EKG unremarkable. Troponin negative. Echocardiogram showed an EF of 65% , RVSP 35 mmHg. No episodes on telemetry. 3. History of DVT/PE-continue Coumadin with Lovenox bridge. Trend INR. Discussed with patient's novel anticoagulation such as Eliquis or Xarelto. Patient is going to consider this however he feels like he will stay with Coumadin at this time. 4. Postoperative anemia, mild-expected outcome secondary to orthopedic surgery. Stable. DVT prophylaxis-Coumadin, bridge with Lovenox subcu This patient was seen by ELSY Kilpatrick under the supervision of Dr. Greenwood. <Iram Greenwood E - Last Filed: 08/17/17 10:56> - Physical Exam Vital Signs Temp Pulse Resp BP Pulse Ox 97.6 F L 98 16 115/65 98 08/17/17 07:43 08/17/17 09:29 08/17/17 07:43 08/17/17 09:29 08/17/17 07:43 Oxygen Flow Rate (L/min) 97 Oxygen Delivery Method Room Air Weight: 193 lb Body Mass Index (BMI) 24.7 Orthostatic Vital Signs Start: 08/16/17 11:55 Freq: Status: Active Protocol: Activity Type Activity Date Activity User E-Sign Co-Sign Detail Recorded Client Recorded Date Recorded By Document 08/17/17 09:29 TDW [id number] 08/17/17 09:30 TDW 08/17/17 09:29 Orthostatic Vitals Standing -Blood Pressure (90/60-120/80) 88/61 L -Extremity Use Left Arm -Pulse Rate (60-100) 107 H Sitting -Blood Pressure (90/60-120/80) 106/58 L -Extremity Use Left Arm -Pulse Rate (60-100) 81 Lying -Blood Pressure (90/60-120/80) 115/65 -Extremity Use Left Arm -Pulse Rate (60-100) 98 Intake and Output for Last 24 Hours 08/15/17 08/16/17 08/17/17 23:59 23:59 23:59 Intake Total 2581 / 2581 3928 / 3928 400 / 400 Output Total 350 / 350 4125 / 4125 925 / 925 Balance 2231 / 2231 -197 / -197 -525 / -525 Laboratory Tests Past 24 Hrs 08/17/17 08/17/17 05:35 05:35 WBC 8.5 RBC 3.66 L Hgb 10.5 L Hct 33.8 L MCV 92.3 MCH 28.7 MCHC 31.1 L RDW 14.6 RDW Differential 49.7 H Plt Count 174 MPV 10.0 PT 15.8 H INR 1.3 Assessment/Plan Hospitalist note: I am seeing this patient in conjunction with Marni Wills. I independently seen and examined the patient. Progress note above and I agree with the above treatment plan. He has no more syncopal episodes. He is still having dizziness on standing, had one episode this morning but he did not pass out. His orthostatic vitals are still positive this morning. a - Physical Exam General: Alert, Oriented x3, Cooperative, No apparent distress. HEENT: Atraumatic, PERRLA, EOMI. Neck: Supple, No JVD, Negative Carotid Bruits, Trachea Midline, Thyroid Normal. Lungs: Clear to auscultation, Normal air movement, No rhonchi, No wheeze, No rales. Cardiovascular: Regular rate, Regular Rhythm, Normal S1, Normal S2, PMI Normal. Abdomen: Bowel Sounds Present, Soft, Non Tender, Non-Distended, No Hepato- splenomegaly. Extremities: No clubbing, No cyanosis, No edema Skin: No rashes, No breakdown Neurological: Neuro grossly intact Vital Signs are stable. Assessment and plan: #1 syncope: Likely vasovagal syncope. Orthostatic vitals are still positive. EKG was unremarkable. 2D echocardiogram revealed normal ejection fraction, no significant valvular heart disease and no wall motion abnormalities. Plan to give him bolus of IV fluids and maintain him on IV fluids. #2 status post right total knee replacement: Orthopedic surgery is managing. #3 history of DVT/PE: Patient used to be on Coumadin. At this time, is on Lovenox twice daily for bridging as well as Coumadin, INR still subtherapeutic. This note was generated with [employer] dictation software. It may contain incorrect words, spelling, and punctuation that were not noted in checking the note before signing. Code Visit Inpatient E&M: 62536 Subs Hosp L2
[2017-08-17] MEDS: 0.9% Normal Saline 1,000 ML 125 ML IV ×3 (10:33→23:04)
--- NOTE | 2017-08-17 14:16 | PCM.PN.ORT ---
Subjective: Patient sitting at bedside. Patient states pain is well-managed. Per nursing and patient he had one episode of near syncopal episode. But denied any other associated symptoms, and was symptom-free after sitting down for a few minutes. Patient states he has had no other episodes since this morning. Denies chest pain, shortness breath, calf pain, nausea vomiting. Objective: Dressings clean dry intact. Negative signs and symptoms of DVT. Vitals labs all within normal limits. Patient is afebrile neurovascular is otherwise intact. - Physical Exam General: Alert, Oriented x3, Cooperative HEENT: PERRLA Cardiovascular: Regular rate Neurological: Cranial nerves II-XII grossly intact Psych/Mental Status: Normal Affect, Alert and oriented to time, place, person, mood and affect Vital Signs Temp Pulse Resp BP Pulse Ox 98.8 F 94 16 114/69 98 08/17/17 13:58 08/17/17 13:58 08/17/17 13:58 08/17/17 13:58 08/17/17 13:58 Oxygen Flow Rate (L/min) 97 Oxygen Delivery Method Room Air Weight: 87.543 kg Body Mass Index (BMI) 24.7 Orthostatic Vital Signs Start: 08/16/17 11:55 Freq: Status: Active Protocol: Activity Type Activity Date Activity User E-Sign Co-Sign Detail Recorded Client Recorded Date Recorded By Document 08/17/17 09:29 TDW [id number] 08/17/17 09:30 TDW 08/17/17 09:29 Orthostatic Vitals Standing -Blood Pressure (90/60-120/80) 88/61 L -Extremity Use Left Arm -Pulse Rate (60-100) 107 H Sitting -Blood Pressure (90/60-120/80) 106/58 L -Extremity Use Left Arm -Pulse Rate (60-100) 81 Lying -Blood Pressure (90/60-120/80) 115/65 -Extremity Use Left Arm -Pulse Rate (60-100) 98 Intake and Output for Last 24 Hours 08/15/17 08/16/17 08/17/17 23:59 23:59 23:59 Intake Total 2581 / 2581 3928 / 3928 1455 / 1455 Output Total 350 / 350 4125 / 4125 1275 / 1275 Balance 2231 / 2231 -197 / -197 180 / 180 Laboratory Tests Past 24 Hrs 08/17/17 08/17/17 05:35 05:35 WBC 8.5 RBC 3.66 L Hgb 10.5 L Hct 33.8 L MCV 92.3 MCH 28.7 MCHC 31.1 L RDW 14.6 RDW Differential 49.7 H Plt Count 174 MPV 10.0 PT 15.8 H INR 1.3 Medical Necessity - Tobacco Use Smoking Status: Never smoker Assessment/Plan Status post right total knee arthroplasty Plan 1. Discontinue all pain medications. Tylenol Extra Strength every 8 hours ?2. Ultram 1 or 2 every 6 hours as needed severe pain 2. Begin physical therapy today, weight-bear as tolerated, with walker. 3. Restart Coumadin today as prescribed, bridge with Lovenox as prescribed for postop DVT prophylaxis 4. Encourage incentive spirometry 5. Possible discharge home tomorrow 6. Medicine will continue to follow and manage medically
--- NOTE | 2017-08-17 17:47 | CHAPLAIN ---
Type of Pastoral Visit ___ Initial Visit _x__ Follow-up Visit ___ On-call Visit ___ General Patient Visit ___ Spiritual Assessment ___ Family Conference ___ Bereavement ___ Rapid Response ___ Code Blue ___ Other (describe below) Pastoral Care Referral From _x__ Patient _x__ Family ___ Nurse ___ Physician ___ Radiography Technician ___ Automatic Spinning Lathe Setter ___ Other (describe below) Sacrament/Intervention _x__ Active listening ___ Anointing ___ Bahai ___ Bereavement ___ Communion ___ Dedra exploration ___ ___ Life review ___ Prayer ___ Reconciliation ___ Sacrament of Sick _x__ Supportive presence ___ Wedding ___ Other (describe below) Pastoral Comments
[2017-08-18 02:15] VITALS: BP 118/72; PULSE 91; RESP 16; TEMP 36.9; O2SAT 96
[2017-08-18 03:59] VITALS: PULSE 86
[2017-08-18 06:09] LABS: International Normalized Ratio 1.3; Prothrombin Time (Protime)PT. 15.9 SECONDS (11.7-14.9)
[2017-08-18 06:13] LABS: Absolute Neutrophil Count 6.1 X10^3/uL (2.0-7.7); Basophil# 0.02 X10^3/uL; Basophil% 0.2 % (0-1); Eosinophil# 0.29 X10^3/uL; Eosinophils% 3.5 % (0-5); Hematocrit 30.1 % (40-54); Hemoglobin 9.4 g/dl (13.0-16.5); Lymphocyte % 13.4 % (19-41); Mean Corp Hgb Conc 31.2 g/gl (32-36); Mean Corpuscular Hgb 29.3 pg (27.0-32.0); Mean Corpuscular Volume 93.8 fL (80-94); Mean Platelet Vol. 10.5 fl (6.2-12.0); Monocyte# 0.64 X10^3/uL; Monocyte% 7.8 % (0-10); Neutrophil # 6.14 X10^3/uL (2.7-7.7); Platelet Count 169 K/mm3 (150-450); RBC Distribution Width CV 14.5 % (11.6-14.6); RBC Distribution Width SD 47.7 fl (35.1-43.9); Red Blood Count 3.21 M/mm3 (4.6-6.2); White Blood Count 8.2 K/mm3 (4.4-11.0)
[2017-08-18 06:17] VITALS: BP 106/71; BP 109/71; BP 130/79; PULSE 105; PULSE 121; PULSE 91
[2017-08-18 06:21] LABS: POSITIVE COUNT NO; POSITIVE DIFFERENTIAL NO; POSITIVE MORPHOLOGY NO
[2017-08-18] MEDS: Acetaminophen 500 MG Tablet 1000 MG PO ×2 (06:24→10:54)
[2017-08-18 06:31] LABS: Anion Gap 6 (5-15); BUN 7 mg/dL (7-18); BUN/Creat Ratio 12.5 RATIO (10-20); Calcium,Total 7.9 mg/dL (8.5-10.1); Chloride 109 mmol/L (98-107); Creatinine, Serum 0.56 mg/dL (0.70-1.30); EST Glomerular Filtration Rate 159 mL/min (>60); Est Glom Filt Rate - Afr Amer 193 mL/min (>60); Estimated Creatinine Clearance 171.25 ml/min; Glucose 96 mg/dL (74-106); Potassium 3.9 mmol/L (3.5-5.1); Sodium Level 143 mmol/L (136-145)
[2017-08-18] MEDS: 0.9% Normal Saline 1,000 ML 125 ML IV (07:24)
--- NOTE | 2017-08-18 07:30 | PCM.PN.ORT ---
Subjective: Patient sitting at bedside, pain well-managed. States he had no period of lightheaded or dizziness this morning while getting out of bed. Patient denies chest pain, shortness breath, calf pain, nausea vomiting. Patient states ready for discharge home. Objective: Incision, has a large fracture blister along the lateral aspect of with some diffuse swelling, the incision is otherwise intact. Knee is cool to touch nonerythematous. Negative signs and symptoms of DVT. Patient is afebrile, neurovascular intact. INR is 1.3 today - Physical Exam General: Alert, Oriented x3 Cardiovascular: Regular rate Neurological: Cranial nerves II-XII grossly intact Psych/Mental Status: Normal Affect, Alert and oriented to time, place, person, mood and affect Vital Signs Temp Pulse Resp BP Pulse Ox 98.5 F 91 16 130/79 H 96 08/18/17 02:15 08/18/17 06:17 08/18/17 02:15 08/18/17 06:17 08/18/17 02:15 Oxygen Flow Rate (L/min) 97 Oxygen Delivery Method Room Air Weight: 87.543 kg Body Mass Index (BMI) 24.7 Orthostatic Vital Signs Start: 08/16/17 11:55 Freq: Status: Active Protocol: Activity Type Activity Date Activity User E-Sign Co-Sign Detail Recorded Client Recorded Date Recorded By Document 08/18/17 06:17 [facility] [id number] 08/18/17 06:17 KRYSTYNA 08/18/17 06:17 Orthostatic Vitals Standing -Blood Pressure (90/60-120/80) 109/71 -Extremity Use Left Arm -Pulse Rate (60-100) 105 H Sitting -Blood Pressure (90/60-120/80) 106/71 -Extremity Use Left Arm -Pulse Rate (60-100) 121 H Lying -Blood Pressure (90/60-120/80) 130/79 H -Extremity Use Left Arm -Pulse Rate (60-100) 91 Intake and Output for Last 24 Hours 08/16/17 08/17/17 08/18/17 23:59 23:59 23:59 Intake Total 3928 / 3928 3161 / 3161 1652 / 1652 Output Total 4125 / 4125 1275 / 1275 1800 / 1800 Balance -197 / -197 1886 / 1886 -148 / -148 Laboratory Tests Past 24 Hrs 08/18/17 08/18/17 08/18/17 05:30 05:30 05:30 WBC 8.2 RBC 3.21 L Hgb 9.4 L Hct 30.1 L MCV 93.8 MCH 29.3 MCHC 31.2 L RDW 14.5 RDW Differential 47.7 H Plt Count 169 MPV 10.5 Immature Gran % (Auto) 0.100 Neut % (Auto) 75.0 H Lymph % (Auto) 13.4 L [place] % (Auto) 7.8 Eos % (Auto) 3.5 Baso % (Auto) 0.2 Absolute Neuts (auto) 6.1 Absolute Lymphs (auto) 1.10 Total Counted Not Reportable PT 15.9 H INR 1.3 Sodium 143 Potassium 3.9 Chloride 109 H Carbon Dioxide 28.0 Anion Gap 6 BUN 7 Creatinine 0.56 L Estim Creat Clear Calc 171.25 Est GFR (MDRD) Af Amer 193 Est GFR (MDRD) Non-Af 159 BUN/Creatinine Ratio 12.5 Glucose 96 Calcium 7.9 L Medical Necessity - Tobacco Use Smoking Status: Never smoker Assessment/Plan Status post right total knee arthroplasty Fracture blister Plan 1. Discontinue all pain medications. Tylenol Extra Strength every 8 hours ?2. Ultram 1 or 2 every 6 hours as needed severe pain 2. Continue physical therapy outpatient, weight-bear as tolerated, with walker. 3. Continue Coumadin, bridging with Lovenox as prescribed. Repeat PT/INR 08/20/2017 with results to PCP 4. Follow-up with PCP on 08/22/2017 5. Follow-up with Dr. Vaz as scheduled 6. DC home today if clear with medicine.
--- NOTE | 2017-08-18 07:40 | PN.ORTHO_ITS ---
Subjective: Patient sitting at bedside, pain well-managed. States he had no period of lightheaded or dizziness this morning while getting out of bed. Patient denies chest pain, shortness breath, calf pain, nausea vomiting. Patient states ready for discharge home. Objective: Incision, has a large fracture blister along the lateral aspect of with some diffuse swelling, the incision is otherwise intact. Knee is cool to touch nonerythematous. Negative signs and symptoms of DVT. Patient is afebrile, neurovascular intact. INR is 1.3 today - Physical Exam General: Alert, Oriented x3 Cardiovascular: Regular rate Neurological: Cranial nerves II-XII grossly intact Psych/Mental Status: Normal Affect, Alert and oriented to time, place, person, mood and affect Vital Signs Temp Pulse Resp BP Pulse Ox 98.5 F 91 16 130/79 H 96 08/18/17 02:15 08/18/17 06:17 08/18/17 02:15 08/18/17 06:17 08/18/17 02:15 Oxygen Flow Rate (L/min) 97 Oxygen Delivery Method Room Air Weight: 87.543 kg Body Mass Index (BMI) 24.7 Orthostatic Vital Signs Start: 08/16/17 11:55 Freq: Status: Active Protocol: Activity Type Activity Date Activity User E-Sign Co-Sign Detail Recorded Client Recorded Date Recorded By Document 08/18/17 06:17 [facility] [id number] 08/18/17 06:17 KRYSTYNA 08/18/17 06:17 Orthostatic Vitals Standing -Blood Pressure (90/60-120/80) 109/71 -Extremity Use Left Arm -Pulse Rate (60-100) 105 H Sitting -Blood Pressure (90/60-120/80) 106/71 -Extremity Use Left Arm -Pulse Rate (60-100) 121 H Lying -Blood Pressure (90/60-120/80) 130/79 H -Extremity Use Left Arm -Pulse Rate (60-100) 91 Intake and Output for Last 24 Hours 08/16/17 08/17/17 08/18/17 23:59 23:59 23:59 Intake Total 3928 / 3928 3161 / 3161 1652 / 1652 Output Total 4125 / 4125 1275 / 1275 1800 / 1800 Balance -197 / -197 1886 / 1886 -148 / -148 Laboratory Tests Past 24 Hrs 08/18/17 08/18/17 08/18/17 05:30 05:30 05:30 WBC 8.2 RBC 3.21 L Hgb 9.4 L Hct 30.1 L MCV 93.8 MCH 29.3 MCHC 31.2 L RDW 14.5 RDW Differential 47.7 H Plt Count 169 MPV 10.5 Immature Gran % (Auto) 0.100 Neut % (Auto) 75.0 H Lymph % (Auto) 13.4 L [place] % (Auto) 7.8 Eos % (Auto) 3.5 Baso % (Auto) 0.2 Absolute Neuts (auto) 6.1 Absolute Lymphs (auto) 1.10 Total Counted Not Reportable PT 15.9 H INR 1.3 Sodium 143 Potassium 3.9 Chloride 109 H Carbon Dioxide 28.0 Anion Gap 6 BUN 7 Creatinine 0.56 L Estim Creat Clear Calc 171.25 Est GFR (MDRD) Af Amer 193 Est GFR (MDRD) Non-Af 159 BUN/Creatinine Ratio 12.5 Glucose 96 Calcium 7.9 L Medical Necessity - Tobacco Use Smoking Status: Never smoker Assessment/Plan Status post right total knee arthroplasty Fracture blister Plan 1. Discontinue all pain medications. Tylenol Extra Strength every 8 hours ?2. Ultram 1 or 2 every 6 hours as needed severe pain 2. Continue physical therapy outpatient, weight-bear as tolerated, with walker. 3. Continue Coumadin, bridging with Lovenox as prescribed. Repeat PT/INR 2017 with results to PCP 4. Follow-up with PCP on 08/22/2017 5. Follow-up with Dr. Vaz as scheduled 6. DC home today if clear with medicine.
--- NOTE | 2017-08-18 07:46 | PCM.DC.TKR ---
Discharge Diet: No Restrictions Discharge Activity: May Not Drive, May Shower, Use Walker May shower in (days): 2 Ice area for (Minutes): 20 - each hour while awake. Weight Bearing Status: Weight bearing as tolerated Elevate: Operative Extremity Additional Activity Instructions:: Wear elastic stockings for 2 weeks after your surgery. Call your doctor if your incision/area has: Continuous Slow Oozing, Sudden Increased Bleeding, Increased Pain/ Swelling, Increased Redness, Foul Smelling Discharge Call your doctor if you observe: Fever of 101 or Higher, Coldness, Increased Pain - in extremity, Numbness or Tingling, Change in Color, Calf discomfort, Uncontrolled pain Change Dressing in (Days):: 1 - and daily as needed. Cleanse incision/area with: Soap & Water Allergies/Adverse Reactions: Allergies Sulfa (Sulfonamide Antibiotics) Allergy (Verified 07/01/17 19:21) Unknown Medications to take at Discharge Warfarin Sodium 5 mg PO DAILY 09/05/13 Enoxaparin [Lovenox] 80 mg SC Q12 #28 syringe 08/17/17 Acetaminophen [Tylenol] 1,000 mg PO Q8 #90 tab 08/18/17 traMADol [Ultram] 50 mg PO Q6H PRN PRN #90 tab 08/18/17 traMADol [Ultram] 100 mg PO Q6H PRN PRN 7 Days #90 tab 08/18/17 The following prescriptions were given: traMADol [Ultram] 50 mg PO Q6H PRN PRN #90 tab PRN Reason: Moderate Pain (4-5/10) traMADol [Ultram] 100 mg PO Q6H PRN PRN 7 Days #90 tab PRN Reason: Mod-Severe Pain (4-10/10) Acetaminophen [Tylenol] 1,000 mg PO Q8 #90 tab Enoxaparin [Lovenox] 80 mg SC Q12 #28 syringe Orders to be completed after discharge: Prothrombin Time w/INR Time Frame: 08/20/17, Facility: [facility], Location: Laboratory Primary Care Physician: Dc Glez MD [Primary Care Provider] - Please Follow Up With: Chas Vaz DO When: as scheduled
--- NOTE | 2017-08-18 09:32 | PN_ITS ---
Subjective: Chief complaint: Follow-up after consultation for postoperative syncope and orthostatic hypotension. Patient seen and examined. No acute events overnight. He had no more episodes of dizziness or lightheadedness. He has no more syncopal episodes. His right knee pain is manageable at this time. This morning, his blood pressure dropped around 20 points from laying to standing he was asymptomatic. Other vital signs are stable. - Physical Exam General: Alert, Oriented x3, Cooperative, No apparent distress HEENT: Atraumatic, PERRLA, EOMI, Normocephalic Oral: Moist Mucosa, No Gingival or Mucosal Lesions/ Ulcerations Neck: Supple, No JVD, Negative Carotid Bruits, Trachea Midline, Thyroid Normal Size and Texture Lungs: Clear to auscultation, Normal air movement, No rhonchi, No wheeze, No rales Cardiovascular: Regular rate, Regular Rhythm, Normal S1, Normal S2, No murmurs Abdomen: Bowel Sounds Present, Soft, Non Tender, Non-Distended, No Hepato- splenomegaly Extremities: No clubbing, No cyanosis, No edema Skin: No rashes, No breakdown Lymphatic: No Cervical, Supraclavicular, or Inguinal Adenopathy Neurological: Cranial nerves II-XII grossly intact, Motor Exam 5/5 strength throughout Psych/Mental Status: Normal Affect, Appropriate Vital Signs Temp Pulse Resp BP Pulse Ox 98.5 F 91 16 130/79 H 96 08/18/17 02:15 08/18/17 06:17 08/18/17 02:15 08/18/17 06:17 08/18/17 02:15 Oxygen Flow Rate (L/min) 97 Oxygen Delivery Method Room Air Weight: 193 lb Body Mass Index (BMI) 24.7 Orthostatic Vital Signs Start: 08/16/17 11:55 Freq: Status: Active Protocol: Activity Type Activity Date Activity User E-Sign Co-Sign Detail Recorded Client Recorded Date Recorded By Document 08/18/17 06:17 KRYSTYNA [id number] 08/18/17 06:17 KRYSTYNA 08/18/17 06:17 Orthostatic Vitals Standing -Blood Pressure (90/60-120/80) 109/71 -Extremity Use Left Arm -Pulse Rate (60-100) 105 H Sitting -Blood Pressure (90/60-120/80) 106/71 -Extremity Use Left Arm -Pulse Rate (60-100) 121 H Lying -Blood Pressure (90/60-120/80) 130/79 H -Extremity Use Left Arm -Pulse Rate (60-100) 91 Intake and Output for Last 24 Hours 08/16/17 08/17/17 08/18/17 23:59 23:59 23:59 Intake Total 3928 / 3928 3161 / 3161 1652 / 1652 Output Total 4125 / 4125 1275 / 1275 1800 / 1800 Balance -197 / -197 1886 / 1886 -148 / -148 Laboratory Tests Past 24 Hrs 08/18/17 08/18/17 08/18/17 05:30 05:30 05:30 WBC 8.2 RBC 3.21 L Hgb 9.4 L Hct 30.1 L MCV 93.8 MCH 29.3 MCHC 31.2 L RDW 14.5 RDW Differential 47.7 H Plt Count 169 MPV 10.5 Immature Gran % (Auto) 0.100 Neut % (Auto) 75.0 H Lymph % (Auto) 13.4 L [place] % (Auto) 7.8 Eos % (Auto) 3.5 Baso % (Auto) 0.2 Absolute Neuts (auto) 6.1 Absolute Lymphs (auto) 1.10 Total Counted Not Reportable PT 15.9 H INR 1.3 Sodium 143 Potassium 3.9 Chloride 109 H Carbon Dioxide 28.0 Anion Gap 6 BUN 7 Creatinine 0.56 L Estim Creat Clear Calc 171.25 Est GFR (MDRD) Af Amer 193 Est GFR (MDRD) Non-Af 159 BUN/Creatinine Ratio 12.5 Glucose 96 Calcium 7.9 L Medical Necessity - Tobacco Use Smoking Status: Never smoker Assessment/Plan This is a 56 years old male patient underwent elective right total knee replacement for severe right knee osteoarthritis and postoperative course complicated by syncopal episode and orthostatic hypotension. #1 syncopal episode/orthostatic hypotension/dizziness: The syncopal episode attributed to vasovagal syncope. Repeat orthostatic vitals from today still positive but patient has normal symptoms. His EKG revealed normal sinus rhythm and without evidence of acute ischemic changes or cardiac arrhythmias. 2D echocardiogram revealed normal ejection fraction and no significant valvular disease or wall motion abnormalities. Routine blood work from today revealed postoperative anemia, otherwise unremarkable. From medical standpoint, patient has normal symptoms even with positive orthostatic vitals, he can be discharged from my standpoint, recommended to ambulate and stand up slowly. At this time, no indication for further workup. #2 status post right total knee replacement: Postoperative day 3. He is on Tylenol and tramadol for pain control, pain is manageable. Orthopedic surgery is managing. #3 history of PE/DVT: He is on Coumadin and Lovenox for bridging. INR still subtherapeutic. Today's INR is 1.3. Patient can be discharged on Lovenox injections twice a day 80 mg twice daily along with Coumadin same current dose, repeat daily INR and Lovenox can be discontinued once INR is above 2. #4 postoperative anemia: Hemoglobin has been dropping, today is 9.4 g/dL. This is most likely because of hemodilution as well as probable blood loss during surgery. Patient has been getting large amounts of IV fluids. No evidence of active bleeding at this time, no indication for transfusion. #5 DVT prophylaxis: He is on Coumadin and Lovenox for bridging as above. This note was generated with [employer] dictation software. It may contain incorrect words, spelling, and punctuation that were not noted in checking the note before signing. Code Visit Inpatient E&M: 68448 Subs Hosp L2
[2017-08-18 09:59] VITALS: PULSE 94
[2017-08-18] MEDS: Enoxaparin 80 MG/0.8 ML Syringe SC (10:53)
[2017-08-18] MEDS: Famotidine 20 MG Tablet PO (10:55)
[2017-08-18] MEDS: Senna/Docusate Sodium 1 Tablet 2 TABLET PO (10:55)
[2017-08-18 11:00] VITALS: BP 113/66; PULSE 94; RESP 16; TEMP 36.6; O2SAT 98
[2017-08-18 15:45] VITALS: BP 105/63; PULSE 93; RESP 18; TEMP 37.1; O2SAT 98
== END 2017-08-18 15:50 | disposition home or self-care (01) | DRG 470 ==
LOC: SDC 09:24 → MS3 09:28
PROVIDERS: Nurse Practitioner Family; Physician Assistant; Admitting Provider Orthopaedic Surgery; Family Provider Family Medicine; PCP Family Medicine; Visit Provider Orthopaedic Surgery
PROC: (CPT 27447; principal; 2017-08-15 06:50)
DX: M17.11 Unilateral primary osteoarthritis, right knee (principal); D68.51 Activated protein C resistance; D62 Acute posthemorrhagic anemia; Z86.718 Personal history of other venous thrombosis and embolism; Z86.711 Personal history of pulmonary embolism; R55 Syncope and collapse
CPT/HCPCS: 36415; 71046; 73560; 80048; 80076; 82962; 84484; 85025; 85027; 85610; 85730; 87081; 93005; 93306; 97110; 97116; 97162; 97165; 97530; 97535; C1776; J7030; J7040; J7120; A4216

== ENCOUNTER → 2017-08-20 10:53 | Outpatient (CLI) | payer OTHER, SELFPAY ==
[2017-08-20 12:25] LABS: International Normalized Ratio 1.4; Prothrombin Time (Protime)PT. 17.4 SECONDS (11.7-14.9)
== END ==
PROVIDERS: Family Provider Family Medicine; PCP Family Medicine; Visit Provider Physician Assistant
DX: Z79.01 Long term (current) use of anticoagulants (principal)
CPT/HCPCS: 36415; 85610

== ENCOUNTER 2017-08-24 12:32 | Inpatient (IN) | payer OTHER, SELFPAY ==
[2017-08-24] VITALS (11 sets, daily range): BP systolic 90–107; BP diastolic 49–65; PULSE 89–167; RESP 16–22; TEMP 36.9–39.2; O2SAT 93–97; BMI 25.4; BMI 25.1
--- NOTE | 2017-08-24 12:36 | RAD_ITS ---
STUDY: X-RAY CHEST REASON FOR EXAM: Male, 56 years old. Syncope TECHNIQUE: Single AP portable view of the chest. COMPARISON: 08/05/2017 FINDINGS: Cardiac monitoring leads overlie the chest. The lungs are clear and expanded. There is no demonstrated pleural abnormality. There is mild cardiac enlargement. Normal mediastinum and delia. Normal visualized pulmonary arteries. Normal visualized aortic arch and descending thoracic aorta. There are diffuse degenerative changes of the visualized thoracic spine. Normal visualized ribs, clavicles, and shoulders. There is no demonstrated abnormality of the visualized soft tissue structures of the upper abdomen. RAD/Chest 1 View (Portable) IMPRESSION: Mild cardiomegaly. No focal consolidation. Electronically Signed: Jorge Wills DO at 13:11 EDT Tel , Service support ,
--- NOTE | 2017-08-24 12:36 | EKG12_ITS ---
Test Reason : REPEAT Blood Pressure : / mmHG Vent. Rate : 102 BPM Atrial Rate : 102 BPM P-R Int : 136 ms QRS Dur : 086 ms QT Int : 350 ms P-R-T Axes : 041 018 009 degrees QTc Int : 456 ms Sinus tachycardia with Premature atrial complexes Otherwise normal ECG Confirmed by DARSHANA CONDON, CARMENZA ([id number]), editor in chief MINA GRAYSON ([id number]) on 08/29/2017 3:40:23 PM Referred By: Hussain Flores Confirmed By:CARMENZA GILLILAND MD
--- NOTE | 2017-08-24 12:38 | RAD_ITS ---
STUDY: X-RAY - RIGHT KNEE REASON FOR EXAM: Male, 56 years old. Fever, recent knee surgery TECHNIQUE: 2 view(s) of the knee. COMPARISON: 08/15/2017 FINDINGS: Postoperative changes are seen of recent total knee arthroplasty. There is a joint effusion, and increasing subcutaneous edema. The orthopedic hardware is intact. Surgical nirmal project along the anterior knee. RAD/Knee 1 or 2 Views IMPRESSION: Soft tissue edema, which appears increased from the prior study. Suprapatellar effusion. Intact orthopedic hardware. Electronically Signed: Jorge Wills DO at 13:18 EDT Tel , Service support ,
[2017-08-24] MEDS: 0.9% Normal Saline 1,000 ML IV.SOLN. 2000 ML IV (12:45)
[2017-08-24 12:49] LABS: Absolute Lymphocyte Count 1.19 X10^3/ul (0.83-4.51); Basophil# 0.02 X10^3/uL; Basophil% 0.2 % (0-1); Eosinophil# 0.02 X10^3/uL; Eosinophils% 0.2 % (0-5); Hemoglobin 9.1 g/dl (13.0-16.5); Lymphocyte # 1.19 X10^3/ul (4.0); Mean Corp Hgb Conc 31.4 g/gl (32-36); Mean Corpuscular Hgb 28.3 pg (27.0-32.0); Mean Corpuscular Volume 90.1 fL (80-94); Mean Platelet Vol. 8.7 fl (6.2-12.0); Monocyte# 0.55 X10^3/uL; Monocyte% 5.1 % (0-10); Neutrophil % 83.4 % (47-70); POSITIVE COUNT NO; POSITIVE DIFFERENTIAL NO; POSITIVE MORPHOLOGY NO; Platelet Count 298 K/mm3 (150-450); RBC Distribution Width CV 15.1 % (11.6-14.6); RBC Distribution Width SD 49.7 fl (35.1-43.9); Red Blood Count 3.22 M/mm3 (4.6-6.2); White Blood Count 10.8 K/mm3 (4.4-11.0)
[2017-08-24] MEDS: Ibuprofen 200 MG Tablet 800 MG PO (12:49)
[2017-08-24 12:56] LABS: International Normalized Ratio 2.2; Prothrombin Time (Protime)PT. 24.9 SECONDS (11.7-14.9)
[2017-08-24 12:57] LABS: Partial Thromboplast Time 70.8 Seconds (24.1-36.2)
[2017-08-24 13:05] LABS: ALB/GLOB Ratio 0.5 RATIO (0.9-2.4); AST(SGOT) 94 U/L (15-37); Alanine Aminotransfer ALT/SGPT 112 U/L (16-61); Albumin, Serum 2.2 g/dL (3.2-5.0); Alkaline Phosphatase 195 U/L (45-117); Anion Gap 6 (5-15); BUN 13 mg/dL (7-18); BUN/Creat Ratio 13.1 RATIO (10-20); Calcium,Total 7.8 mg/dL (8.5-10.1); Chloride 100 mmol/L (98-107); Creatinine, Serum 0.99 mg/dL (0.70-1.30); EST Glomerular Filtration Rate 83 mL/min (>60); Est Glom Filt Rate - Afr Amer 100 mL/min (>60); Estimated Creatinine Clearance 96.87 ml/min; Globulin 4.1 g/dL (2.2-4.2); Glucose 121 mg/dL (74-106); Potassium 3.7 mmol/L (3.5-5.1); Protein, Total 6.3 g/dL (6.4-8.2); Sodium Level 137 mmol/L (136-145)
[2017-08-24 13:16] LABS: Lactic Acid 2.5 mmol/L (0.4-2.0)
--- NOTE | 2017-08-24 13:38 | EKG12_ITS ---
Test Reason : SYNCOPE Blood Pressure : / mmHG Vent. Rate : 137 BPM Atrial Rate : 192 BPM P-R Int : 000 ms QRS Dur : 076 ms QT Int : 280 ms P-R-T Axes : 000 028 -25 degrees QTc Int : 422 ms Atrial fibrillation with premature ventricular or aberrantly conducted complexes Nonspecific ST abnormality Abnormal ECG Confirmed by DARSHANA CONDON, CARMENZA ([id number]), editor dictionary MINA GRAYSON ([id number]) on 08/29/2017 3:40:44 PM Referred By: Hussain Flores Confirmed By:CARMENZA GILLILAND MD
[2017-08-24 14:07] LABS: Color, Urine Yellow (Yellow); Glucose, Dipstick Normal (Normal); Ketone-Dipstick 5 mg/dl (Negative); Leukocyte Esterase-Dipstick 500 /ul (Negative); Nitrite-Dipstick Positive (Negative); Occult Blood-Urine 150 /ul (Negative); Protein-Dipstick 100 mg/dl (Negative); Urine Clarity Cloudy (Clear); Urine Urobilinogen 4 mg/dl (Normal)
[2017-08-24 14:08] LABS: Urine Bilirubin Dipstick 3 mg/dL (Negative)
[2017-08-24 14:15] LABS: Bacteria 2+ /hpf (None Seen); Hyaline Cast 0-5 SEEN /lpf (0-5); Mucous, Urine 1+ /hpf (<or=2+); Red Blood Cells-Urine 0-5 SEEN /hpf (0-5); Squamous Epithelial Cells - UA 0-5 SEEN /hpf (0-5); White Blood Cells 10-25 SEEN /hpf (0-5)
[2017-08-24] MEDS: Ceftriaxone 1 GM/50 ML BAG IV ×2 (14:58→18:04)
--- NOTE | 2017-08-24 15:04 | ED.VISSUMM ---
- ER Visit Summary Date of Service: 08/24/17 Chief Complaint: Generalized illness History of Present Illness: The patient is a 56 M presenting for evaluation secondary to generalized illness. Patient had a total knee replacement performed approximately 1 week ago. Patient reports that today he started to have generalized fevers and chills. He has had a mild cough that is nonproductive of sputum. He denies any other infectious signs or symptoms such as nausea vomiting or diarrhea. Denies any increase pain in his knee. Physical Examination: Vital signs notable for blood pressure 90/49 temperature of 102.6 heart rate of 140. Well-nourished male no acute distress. Head normocephalic. Moist mucous membranes. Heart was tachycardic and irregular. Lungs sounds are clear. Abdomen soft nontender. Lower extremity exam shows right knee with incision clean dry and intact no evidence of drainage. There is an effusion and mild warmth compared to the contralateral side but there is no erythema area Test Results: CBC shows no leukocytosis but shows a neutrophilic predominance, chemistry unremarkable, INR elevated at 2.2 lactic acid 2.5 chest x-ray unremarkable urinalysis shows evidence of nitrates and white blood cells Emergency Department Course and Treatment: Patient presented for evaluation secondary to fever in setting of recent surgery. Physical exam really does not exhibit that the patient's source is from his knee. Workup actually ended up being negative except for elevated lactic acid and urine as being the patient's source. I believe the patient requires admission at this time. He was given a dose of Rocephin. An initial EKG on presentation showed atrial fibrillation with rapid ventricular rate of 137 and the patient spontaneously converted to a sinus rate. Troponin was found to be negative. Patient was given a 30 cc/kg fluid bolus and the patient will be admitted. Disposition: Admission Impression: 1. Sepsis 2. UTI 3. A. fib with RVR, resolved 4. Recent knee replacement This note was generated with [employer] dictation software. It may contain incorrect words, spelling, and punctuation that were not noted in review of the chart prior to signing ED Disposition - Plan for ED Patient: Chief Complaint: Syncope Referrals: Dc Glez MD [Primary Care Provider] -
--- NOTE | 2017-08-24 15:42 | PCM.HP.STD ---
Problem List (1) Atrial fibrillation with RVR Status: Acute (2) Elevated LFTs Status: Acute (3) Acute cystitis Status: Acute (4) Severe sepsis Status: Acute (5) Anemia Status: Acute (6) Status post total right knee replacement Status: Acute (7) History of pulmonary embolism Status: Chronic (8) History of DVT (deep vein thrombosis) Status: Chronic History of Present Illness Date of Admission: 08/24/17 Chief Complaint: Fever, chills, nausea and vomiting. The patient is a 56 year old M with past medical history as mentioned above presented to the emergency room because of symptoms of not feeling well, fever, chills as well as nausea and vomiting. This patient had recent history of right total knee replacement for osteoarthritis on August 15, 2017 and his postoperative course complicated by syncopal episode, orthostatic hypotension and postoperative anemia. He was discharged from the hospital 6 days ago. According to his daughter, he had an episode of fever of up to 103 Fahrenheit at home 1 day after discharge and they contacted his orthopedic surgeon who recommended Tylenol and ibuprofen. Since yesterday, patient complained that he is not feeling well, having no specific symptoms and he had a fever of up to 102 Fahrenheit. Today, again he had a spike of fever, associated with nausea and vomiting, he threw up 3 times, also associated with generalized weakness and malaise and without aggravating or relieving factors. He complains of dry cough without sputum production. He mentioned that his right knee pain is fairly under control. He denied abdominal pain, constipation or diarrhea. He mentioned that his urine has been dark since yesterday. He denied hematuria or foul-smelling urine. Today after EMS arrived at the house, he had a syncopal episode. He denied chest pain or shortness of breath. At this time, his blood pressure stabilized, febrile, heart rate and pulse ox is normal. Upon arrival to ER, patient was in A. fib with RVR, heart rate was up to 140s and after he received IV fluid bolus, he converted spontaneously to sinus rhythm and now he is in sinus rhythm. Routine blood work is remarkable for hemoglobin of 9.1 g/dL, otherwise normal. His lactic acid is 2.5. LFT revealed elevated total bilirubin as well as liver transaminases and alkaline phosphatase. Troponin is negative. Chest x-ray showed no acute infiltrate, consolidation or effusion. Initial EKG revealed A. fib with RVR, heart rate was in the 130s, no acute ischemic changes. Repeat EKG revealed sinus tachycardia without evidence of acute ischemic changes. X-ray of the right knee revealed soft tissue edema. He is being admitted for severe sepsis secondary to acute cystitis, A. fib with RVR, elevated LFT, anemia and syncope. Past Medical History Past Medical History (Chronic Problems): Chronic Problems History of pulmonary embolism (Chronic) History of DVT (deep vein thrombosis) (Chronic) Allergies Sulfa (Sulfonamide Antibiotics) Allergy (Verified 08/24/17 12:40) Unknown Home Medications: Ambulatory Orders Medication Instructions Recorded Warfarin Sodium 5 mg PO DAILY 09/05/13 Enoxaparin [Lovenox] 80 mg SC Q12 #28 syringe 08/17/17 traMADol [Ultram] 50 mg PO Q6H PRN PRN #90 tab 08/18/17 Acetaminophen [Tylenol] 1,000 mg PO Q8 PRN 08/24/17 Ibuprofen [Motrin] 800 mg PO TID 08/24/17 Surgical History: total knee arthroplasty Psychiatric History: No pertinent psych hx Lives: Spouse/ Significant Other Smoking Status: Never smoker Alcohol: None Drugs: None - *Family History Maternal History Items: No pertinent history Paternal History Items: No pertinent history Review of Systems Constitutional: Reports: Chills, Fever, Weakness. Denies: Anorexia Eyes: Denies: Blurred vision, Double vision, Drainage, Redness HEENT: Denies: Difficulty Hearing, Ear Pain, Eye Pain, Nasal Congestion, Sore Throat Cardiovascular: Reports: Syncope. Denies: Chest Pain, Chest Pressure, Chest Tightness, Heaviness, Light Headedness, Palpitations Respiratory: Reports: Cough. Denies: Pleuritic Pain, Shortness of Breath, Sputum production, Wheezing Gastrointestinal: Reports: Nausea, Vomiting. Denies: Abdominal Pain, Constipation, Diarrhea Genitourinary: Denies: Dysuria, Frequency, Hematuria Musculoskeletal: Reports: Joint Pain. Denies: Arm Pain, Back Pain, Foot Pain Skin: Denies: Dryness, Rash Neurological: Denies: Balance problems, Double vision, Change in Speech, Slurred speech, Confusion, Headaches, Incoordination, Numbness Psychiatric: Denies: Anxiety, Depression Endocrine: Denies: Change in Body Habitus, Polydipsia VTE Information - Inpt Only VTE Present on Admission: No VTE Mechan Device Prophylaxis: None VTE Pharm Prophylaxis ordered?: No Patient Problems: Active and Suspected Problems Atrial fibrillation with RVR (Acute) Elevated LFTs (Acute) Acute cystitis (Acute) Severe sepsis (Acute) Anemia (Acute) Status post total right knee replacement (Acute) - Physical Exam General: Alert, Oriented x3, Cooperative, No apparent distress HEENT: Atraumatic, PERRLA, EOMI, Normocephalic Oral: Moist Mucosa, No Gingival or Mucosal Lesions/ Ulcerations Neck: Supple, No JVD, Negative Carotid Bruits, Trachea Midline, Thyroid Normal Size and Texture Lungs: Clear to auscultation, No rhonchi, No wheeze, No rales, Diminished Cardiovascular: Regular rate, Normal S1, Normal S2, No murmurs, PMI Normal, Tachycardic Abdomen: Bowel Sounds Present, Soft, Non Tender, Non-Distended, No Hepato-splenomegaly Extremities: No clubbing, No cyanosis, No edema Skin: No rashes, No breakdown, Incision - Surgical incision of the right knee is intact, dry and no evidence of infection. Lymphatic: No Cervical, Supraclavicular, or Inguinal Adenopathy Neurological: Cranial nerves II-XII grossly intact, Motor Exam 5/5 strength throughout Psych/Mental Status: Normal Affect, Appropriate, Alert and oriented to time, place, person, mood and affect Vital Signs Temp Pulse Resp BP Pulse Ox 99 F 94 18 103/51 L 97 08/24/17 15:00 08/24/17 15:00 08/24/17 15:00 08/24/17 15:00 08/24/17 15:00 Oxygen Flow Rate (L/min) 2 Oxygen Delivery Method Room Air Weight: 198 lb 10.184 oz Body Mass Index (BMI) 25.4 Laboratory Tests Past 24 Hrs 08/24/17 08/24/17 08/24/17 12:30 12:30 12:30 WBC 10.8 RBC 3.22 L Hgb 9.1 L Hct 29.0 L MCV 90.1 MCH 28.3 MCHC 31.4 L RDW 15.1 H RDW Differential 49.7 H Plt Count 298 MPV 8.7 Immature Gran % (Auto) 0.100 Neut % (Auto) 83.4 H Lymph % (Auto) 11.0 L Metcalfe % (Auto) 5.1 Eos % (Auto) 0.2 Baso % (Auto) 0.2 Absolute Neuts (auto) 9.0 H Absolute Lymphs (auto) 1.19 Total Counted Not Reportable PT 24.9 H INR 2.2 APTT 70.8 H Sodium 137 Potassium 3.7 Chloride 100 Carbon Dioxide 31.0 Anion Gap 6 BUN 13 Creatinine 0.99 Estim Creat Clear Calc 96.87 Est GFR (MDRD) Af Amer 100 Est GFR (MDRD) Non-Af 83 BUN/Creatinine Ratio 13.1 Glucose 121 H Lactic Acid Calcium 7.8 L Total Bilirubin 1.20 H AST 94 H ALT 112 H Alkaline Phosphatase 195 H Troponin I < 0.015 Total Protein 6.3 L Albumin 2.2 L Globulin 4.1 Albumin/Globulin Ratio 0.5 L Urine Color Urine Clarity Urine pH Ur Specific [place] Urine Protein Urine Glucose (UA) Urine Ketones Urine Occult Blood Urine Nitrite Urine Bilirubin Urine Urobilinogen Ur Leukocyte Esterase Urine RBC Urine WBC Ur Squamous Epith Cells Urine Bacteria Hyaline Casts Urine Mucus 08/24/17 08/24/17 12:30 14:00 WBC RBC Hgb Hct MCV MCH MCHC RDW RDW Differential Plt Count MPV Immature Gran % (Auto) Neut % (Auto) Lymph % (Auto) [place] % (Auto) Eos % (Auto) Baso % (Auto) Absolute Neuts (auto) Absolute Lymphs (auto) Total Counted PT INR APTT Sodium Potassium Chloride Carbon Dioxide Anion Gap BUN Creatinine Estim Creat Clear Calc Est GFR (MDRD) Af Amer Est GFR (MDRD) Non-Af BUN/Creatinine Ratio Glucose Lactic Acid 2.5 H Calcium Total Bilirubin AST ALT Alkaline Phosphatase Troponin I Total Protein Albumin Globulin Albumin/Globulin Ratio Urine Color Yellow Urine Clarity Cloudy Urine pH 5.0 Ur Specific [place] 1.020 Urine Protein 100 H Urine Glucose (UA) Normal Urine Ketones 5 H Urine Occult Blood 150 H Urine Nitrite Positive H Urine Bilirubin 3 H Urine Urobilinogen 4 H Ur Leukocyte Esterase 500 H Urine RBC 0-5 SEEN Urine WBC 10-25 SEEN Ur Squamous Epith Cells 0-5 SEEN Urine Bacteria 2+ Hyaline Casts 0-5 SEEN Urine Mucus 1+ Clinical Impression(s) from Imaging Studies Chest X-Ray 08/24/17 12:36 IMPRESSION: Mild cardiomegaly. No focal consolidation. Electronically Signed: Jorge WillsDO at 13:11 EDT Tel , Service support , Knee X-Ray 08/24/17 12:38 IMPRESSION: Soft tissue edema, which appears increased from the prior study. Suprapatellar effusion. Intact orthopedic hardware. Electronically Signed: Jorge WillsDO at 13:18 EDT Tel , Service support , Assessment/Plan All Active Problems Atrial fibrillation with RVR (Acute) Elevated LFTs (Acute) Acute cystitis (Acute) Severe sepsis (Acute) Anemia (Acute) Status post total right knee replacement (Acute) This is a 56 years old male patient presented to the emergency room because of fever, malaise, general illness, nausea and vomiting in context of recent history of right total knee replacement and he was found to have severe sepsis secondary to acute cystitis, went into A. fib with RVR and then converted back to sinus rhythm after IV fluid bolus, found to have elevated LFT, syncope and anemia. #1 severe sepsis/acute cystitis: Lactic acid is 2.5, heart rate and blood pressure stabilized. Initially, he was in A. fib with RVR, converted back to sinus rhythm with IV fluid bolus. Urinalysis reviewed. Urine culture and culture sent. He received 1 g of IV Rocephin. Plan: Admit to PCU, cardiac monitoring, follow blood and urine cultures, Rocephin 2 g IV every 24 hours, repeat lactic acid in 3 hours, IV fluids, input output chart, repeat CBC and CMP tomorrow morning, PT OT evaluation and treatment. #2 A. fib with RVR: Initial EKG revealed A. fib with RVR, rate of around 137 without acute ischemic changes. Repeat EKG after IV fluid bolus therapy, patient converted back to sinus tachycardia and heart rate has been around 90s. Blood pressure remained stable. He never history of A. fib and no history of cardiac disease. Plan: Cardiac monitoring, serial cardiac enzymes, check serum magnesium, TSH. He had 2D echocardiogram during his last admission 3 days ago and that showed ejection fraction 65%, no significant valvular heart disease and RVSP of 35. #3 syncope: This is chronic, last time attributed to orthostatic hypotension. Infection and sepsis contributing. Plan for IV fluids, cardiac monitoring, repeat orthostatic vitals tomorrow. #4 postoperative anemia: Due to blood loss and hemodilution. Admission hemoglobin is 9.1 g/dL. No evidence of active bleeding, no indication for transfusion. Plan to transfuse if hemoglobin less than 8 g/dL. #5 elevated LFT: Total bilirubin, alk phos and liver transaminases are elevated. This could be due to severe sepsis. Patient denied any right upper quadrant abdominal pain. Plan: Ultrasound gallbladder, repeat LFTs tomorrow morning. #6 status post recent right total knee replacement: Surgical incision is dry and clean, no evidence of infection. Plan to consult orthopedic surgery. #7 history of DVT/PE: His back on Coumadin, INR stable to 2.2. Plan to continue Coumadin, repeat INR tomorrow morning. #8 DVT prophylaxis: INR is 2.2. This note was generated with [employer] dictation software. It may contain incorrect words, spelling, and punctuation that were not noted in checking the note before signing. Code Visit Inpatient E&M: 67072 Init Hosp L3
--- NOTE | 2017-08-24 16:32 | ECHOD_ITS ---
Reason For Study: AFIB Procedure This was a 2D Doppler, Color Flow transthoracic echocardiogram. Exam performed portable in patient room. Left Ventricle Normal LV size. Left ventricular systolic function is normal. The estimated ejection fraction is 65 %. Unable to assess diastolic dysfunction due to arrhythmia. No regional wall motion abnormalities noted. Right Ventricle Normal RV size. Normal systolic function. Atria The left atrium is mildly enlarged. The right atrium is mildly enlarged. Hypermobile atrial septum. Mitral Valve Normal mitral valve. Tricuspid Valve Normal tricuspid valve. Mild (1+) tricuspid valve insufficiency. Pulmonary artery systolic pressure is 31 mmHg. Aortic Valve Normal aortic valve. Trisinus/trileaflet aortic valve. Pulmonic Valve Normal pulmonic valve. Great Vessels Normal aortic root. The pulmonary artery is normal size. Normal inferior vena cava. Pericardium/Pleural No pericardial effusion. MMode/2D Measurements & Calculations LVIDd: 5.6 cm IVSd: 0.96 cm Ao root diam: 3.1 cm LVIDs: 3.6 cm LVPWd: 1.0 cm RVDd: 4.1 cm FS: 36.5 % LAV(MOD-bp): 78.1 ml EDV(MOD-sp4): 168.7 ml EDV(MOD-sp2): 127.6 ml LAV(MOD-bp) Indexed: 36.3 ml/m2 ESV(MOD-sp4): 62.4 ml EF(MOD-sp2): 64.2 % LAV(MOD-sp2): 63.0 ml EF(MOD-sp4): 63.0 % LAV(MOD-sp4): 87.0 ml SV(MOD-sp4): 106.3 ml SV(MOD-sp2): 81.9 ml LA A4 area: 25.9 cm2 RA A4 area: 21.4 cm2 Doppler Measurements & Calculations MV E max ghassan: 99.7 cm/sec Ao V2 max: 156.3 cm/sec LV V1 max: 136.7 cm/sec MV A max ghassan: 60.6 cm/sec Ao max P.8 mmHg LV V1 max P.5 mmHg MV E/A: 1.6 TR max ghassan: 266.8 cm/sec TR max P.6 mmHg Interpretation Summary Hypermobile atrial septum. Normal LV size. Left ventricular systolic function is normal. The estimated ejection fraction is 65 %. Unable to assess diastolic dysfunction due to arrhythmia. Compared to prior study, there is no significant change. Ordering Physician: Iram Greenwood Referring Physician: SHAKEEL LOPEZ Performed By: Fernanda Guerrero, KEVAN, RVT
[2017-08-24 16:43] LABS: Reflex Lactate? Y
[2017-08-24 17:07] LABS: Lipase 95 U/L (73-393); Thyroid Stim Hormone (TSH) 1.43 uIU/mL (0.358-3.74)
[2017-08-24 17:46] LABS: Lactic Acid 1.1 mmol/L (0.4-2.0)
[2017-08-24] MEDS: Docusate Sodium 100 MG Capsule PO (22:46)
[2017-08-25] VITALS (12 sets, daily range): BP systolic 102–109; BP diastolic 54–62; PULSE 85–100; RESP 16–20; TEMP 37.1–38.2; O2SAT 92–97
[2017-08-25 06:27] LABS: Absolute Lymphocyte Count 1.37 X10^3/ul (0.83-4.51); Absolute Neutrophil Count 6.9 X10^3/uL (2.0-7.7); Basophil# 0.04 X10^3/uL; Basophil% 0.4 % (0-1); Eosinophil# 0.04 X10^3/uL; Eosinophils% 0.4 % (0-5); Hematocrit 26.5 % (40-54); Hemoglobin 8.4 g/dl (13.0-16.5); Lymphocyte # 1.37 X10^3/ul (4.0); Mean Corp Hgb Conc 31.7 g/gl (32-36); Mean Corpuscular Hgb 28.6 pg (27.0-32.0); Mean Corpuscular Volume 90.1 fL (80-94); Mean Platelet Vol. 9.4 fl (6.2-12.0); Monocyte# 0.75 X10^3/uL; Monocyte% 8.2 % (0-10); Neutrophil # 6.89 X10^3/uL (2.7-7.7); Neutrophil % 75.3 % (47-70); Platelet Count 292 K/mm3 (150-450); RBC Distribution Width CV 15.1 % (11.6-14.6); RBC Distribution Width SD 48.6 fl (35.1-43.9); Red Blood Count 2.94 M/mm3 (4.6-6.2); White Blood Count 9.2 K/mm3 (4.4-11.0)
[2017-08-25 06:31] LABS: POSITIVE COUNT NO; POSITIVE DIFFERENTIAL NO; POSITIVE MORPHOLOGY NO
[2017-08-25 06:34] LABS: International Normalized Ratio 2.1; Prothrombin Time (Protime)PT. 23.4 SECONDS (11.7-14.9)
[2017-08-25 06:46] LABS: ALB/GLOB Ratio 0.6 RATIO (0.9-2.4); AST(SGOT) 69 U/L (15-37); Alanine Aminotransfer ALT/SGPT 96 U/L (16-61); Albumin, Serum 2.1 g/dL (3.2-5.0); Alkaline Phosphatase 163 U/L (45-117); Anion Gap 7 (5-15); BUN 12 mg/dL (7-18); BUN/Creat Ratio 16.8 RATIO (10-20); Calcium,Total 7.8 mg/dL (8.5-10.1); Chloride 104 mmol/L (98-107); Creatinine, Serum 0.71 mg/dL (0.70-1.30); EST Glomerular Filtration Rate 121 mL/min (>60); Est Glom Filt Rate - Afr Amer 146 mL/min (>60); Estimated Creatinine Clearance 135.07 ml/min; Globulin 3.8 g/dL (2.2-4.2); Glucose 109 mg/dL (74-106); Potassium 3.6 mmol/L (3.5-5.1); Protein, Total 5.9 g/dL (6.4-8.2); Sodium Level 140 mmol/L (136-145)
--- NOTE | 2017-08-25 07:28 | PCM.PN.BLA ---
Progress Note Subjective: Shelton is a 56-year-old male that is well known to me. He had a total knee replacement on the right August 15, 2017. He has a history of previous DVTs as well as PEs. Postoperatively he did have a syncopal episode secondary to orthostatic hypotension. He did have an episode of spiking a fever 103?. I did speak with the family and instructed them to use ibuprofen and Tylenol and if this did not improve he was instructed to contact his primary care physician following day as the daughter who is a nurse felt that the knee did not look to be involved. Apparently he spiked another fever and had several episodes of nausea vomiting therefore he went to the emergency department and found to have a urine infection. He was admitted to the hospitalist service Objective: Temp 99.1 blood pressure 109/60 pulse 96 Patient's right lower extremity is neurovascularly intact. Head Waters are in place. There is some resolving blisters on the lateral aspect of the knee. There is no drainage no erythema and minimal swelling to the knee. No calf pain is identified. Range of motion 0-45? Assessment: Patient is status post right total knee arthroplasty August 15, 2017 Plan: Patient will require aggressive physical therapy in order to assist with his range of motion especially into flexion. He did have a contracture intraoperatively and some scarring especially in the quadriceps preventing him from flexing. The setbacks of affected his ability to participate in therapy aggressively and encouraged him to continue with that. The wound can be open to air at this time. Maintain nirmal until seen in the office. Okay to shower and get nirmal wet. Will follow remotely please contact me if things worsen for his knee
--- NOTE | 2017-08-25 08:00 | US_ITS ---
STUDY: ABDOMINAL ULTRASOUND - RIGHT UPPER QUADRANT REASON FOR VISIT: Male, 56 years old. Elevated LFTs TECHNIQUE: Ultrasound evaluation of the right upper quadrant was performed with real-time and static hampton-scale imaging. TECHNICAL QUALITY: Adequate. COMPARISON: None. FINDINGS: Liver: The liver measures 18.4 cm. There is normal echogenicity of the liver. The bile ducts are within normal limits. There is hepatic color flow. The direction of portal flow is hepatopetal. There is no demonstrated mass lesion. Gallbladder: Normal distended gallbladder. The gallbladder wall measures 2 mm. There is a negative sonographic Harper's sign. There is no pericholecystic fluid. There are no gallstones. Common Bile Duct (C.B.D.): The common bile duct measures 3.8 mm. Pancreas: Normal size of the head, body and tail of the pancreas. There is normal echogenicity of the pancreas. There is no demonstrated pancreatic mass or cyst. Right Kidney: Normal size of the right kidney. The right kidney measures 12.8 x 4.9 x 4.6 cm. Normal renal cortex. The right cortex measures 1.5 cm. There is again noted a hypoechoic focus of the midpole of the right kidney measuring 2.8 x 2.5 x 1.5 cm on this study. This is of unknown etiology or significance and may merely represent a prominent column of Hector. There is no right hydronephrosis. US/Gallbladder IMPRESSION: Hypoechoic focus of the midpole of the right kidney measuring 2.8 x 2.5 x 1.5 cm which is of unknown etiology or significance. Noncontrast CT of the kidneys or MRI may be helpful for further evaluation of this at this time. Electronically Signed: Nolberto Ambrocio MD at 19:20 EDT , Service support ,
[2017-08-25] MEDS: 0.9% NaCl Peripheral Flush Adult/Peds IV ×3 (09:47→21:24)
--- NOTE | 2017-08-25 10:44 | CASEMGMT ---
Face to Face with patient for initial transition planning/care coordination assessment. JG CASTANO introduced self and role at [facility], pt voices understanding and consents to assessment at this time. Pt is lying in bed in no distress at this time. Pt is A/O x4 at this time and answers all questions appropriately at this time. Care providers, pharmacy, and demographics verified. See attached link. Pt voices no further concerns/needs at this time. Advised pt to ask for CM if any further questions/concerns/needs arise, voices understanding. PLAN: [place] JG [place]ST[place]O
--- NOTE | 2017-08-25 10:45 | US_ITS ---
STUDY: RENAL ULTRASOUND - COMPLETE REASON FOR EXAM: Male, 56 years old. Renal insufficiency TECHNIQUE: Ultrasound evaluation of the kidneys was performed with real-time and static goyal-scale imaging. COMPARISON: None. FINDINGS: RIGHT KIDNEY: Normal location of the right kidney, which is normal in size. The right kidney measures 12.7 x 4.7 x 4.9 cm. There is a normal cortex of the right kidney. The renal cortex measures 1.4 cm. There is a hypoechoic focus in the midpole of the right kidney measuring 3.0 x 3.0 x 2.3 cm. There are no right renal calculi. There is no right hydronephrosis. DISTAL RIGHT URETER: There is non-visualization of the distal right ureter. There is no demonstrated right ureterovesical junction calculus. There is no demonstrated right ureteral jet. LEFT KIDNEY: Normal location of the left kidney, which is normal in size. The left kidney measures 12.8 x 6.4 x 6.8 cm. There is a normal cortex of the left kidney. The renal cortex measures 1.5 cm. There is no left renal mass or cyst. There are no left renal calculi. There is no left hydronephrosis. DISTAL LEFT URETER: There is non-visualization of the distal left ureter. There is no demonstrated left ureterovesical junction calculus. There is no demonstrated left ureteral jet. BLADDER: The distended urinary bladder has a volume of 115. ml. There is a normal wall thickness of the distended urinary bladder. There is no demonstrated mass within the urinary bladder. There are no demonstrated bladder calculi. US/Kidney and Bladder IMPRESSION: 1. There is a hypoechoic focus of the midpole of the right kidney measuring 3.0 x 3.0 x 2.3 cm. This does not appear to represent a simple cyst. This may merely represent a prominent column of Hector. 2. A small left renal cyst reported on prior CT of 2012 is not seen on this ultrasound study. 3. Noncontrast CT of the kidneys may be helpful for further evaluation at this time. Electronically Signed: Nolberto Ambrocio MD at 16:57 EDT , Service support ,
--- NOTE | 2017-08-25 11:13 | PCM.PN.HOSP ---
Patient Problems: Active and Suspected Problems Atrial fibrillation with RVR (Acute) Elevated LFTs (Acute) Acute cystitis (Acute) Severe sepsis (Acute) Anemia (Acute) Status post total right knee replacement (Acute) Subjective: Patient denies any previous history of nephrolithiasis or urinary tract stone, stricture or obstruction, urinary tract instrumentation or recent urology procedure. Patient is admitted with severe sepsis secondary to UTI. Was having fever at home, 103 Fahrenheit. The patient was started on ceftriaxone. Prelim urine culture suggestive of gram-negative walter possible Pseudomonas. Antibiotic changed to cefepime to cover Pseudomonas. In ED, he had fever 102.6 Fahrenheit, currently temperature range 99.1-99.7 Fahrenheit. Vitals/I&O's: Vital Signs Temp Pulse Resp BP Pulse Ox 99.7 F H 100 20 H 102/62 94 08/25/17 09:32 08/25/17 09:32 08/25/17 09:32 08/25/17 09:32 08/25/17 09:32 Oxygen Delivery Method Room Air Weight: 195 lb 8.8 oz Body Mass Index (BMI) 25.1 Intake and Output for Last 24 Hours 08/23/17 08/24/17 08/25/17 23:59 23:59 23:59 Intake Total 240 / 240 199.8 / 199.8 Balance 240 / 240 199.8 / 199.8 General: Alert, Oriented x3, Cooperative HEENT: Atraumatic, PERRLA, EOMI, Normocephalic Neck: Supple, No JVD, Negative Carotid Bruits Lungs: Clear to auscultation, Normal air movement, No rhonchi, No wheeze Cardiovascular: Regular rate, No murmurs Abdomen: Bowel Sounds Present, Soft, Non Tender, Non-Distended, - - No suprapubic tenderness. Hernial sites intact. Extremities: No edema, Capillary Refill Less than 3 Seconds Skin: No rashes, No breakdown Musculoskeletal: Arthritic Changes, - - Right knee is swollen. Marii intact. No obvious erythema or signs of infection on the postoperative site Neurological: Cranial nerves II-XII grossly intact, Motor Exam 5/5 strength throughout Psych/Mental Status: Normal Affect, Appropriate Laboratory Results 08/24/17 17:05: Troponin I < 0.015 08/24/17 17:05: Lactic Acid 1.1 08/24/17 20:10: Troponin I < 0.015 08/25/17 06:05: WBC 9.2, RBC 2.94 L, Hgb 8.4 L, Hct 26.5 L, MCV 90.1, MCH 28.6, MCHC 31.7 L, RDW 15.1 H, RDW Differential 48.6 H, Plt Count 292, MPV 9.4, Immature Gran % (Auto) 0.700, Neut % (Auto) 75.3 H, Lymph % (Auto) 15.0 L, Yates % (Auto) 8.2, Eos % (Auto) 0.4, Baso % (Auto) 0.4, Absolute Neuts (auto) 6.9, Absolute Lymphs (auto) 1.37, Total Counted Not Reportable 08/25/17 06:05: PT 23.4 H, INR 2.1 08/25/17 06:05: Sodium 140, Potassium 3.6, Chloride 104, Carbon Dioxide 29.0, Anion Gap 7, BUN 12, Creatinine 0.71, Estim Creat Clear Calc 135.07, Est GFR (MDRD) Af Amer 146, Est GFR (MDRD) Non-Af 121, BUN/Creatinine Ratio 16.8, Glucose 109 H, Calcium 7.8 L, Total Bilirubin 0.80, AST 69 H, ALT 96 H, Alkaline Phosphatase 163 H, Total Protein 5.9 L, Albumin 2.1 L, Globulin 3.8, Albumin/Globulin Ratio 0.6 L Current Medications Acetaminophen (Tylenol) 1,000 mg PO Q8H PRN PRN PRN Reason: Pain, headache, fever Docusate Sodium (Colace) 100 mg PO BID MAGDA Last Admin: 08/24/17 22:46 Dose: 100 mg Cefepime HCl 2 gm/ Sodium (Chloride) 100 mls @ 200 mls/hr IV Q12 MAGDA Magnesium Hydroxide (Milk Of Magnesia) 30 ml PO DAILY PRN PRN Reason: Constipation Ondansetron HCl (Zofran) 4 mg IV Q6H PRN PRN PRN Reason: NAUSEA/VOMITING Sodium Chloride () 5 - 30 ml IV UD PRN PRN Reason: SALINE FLUSH Last Admin: 08/25/17 09:47 Dose: 10 ml Tramadol HCl (Ultram) 50 mg PO Q6H PRN PRN PRN Reason: MODERATE PAIN (4-5/10) Warfarin Sodium (Coumadin (Pbkc)) 5 mg PO DAILY@1700 MAGDA Last Admin: 08/24/17 18:04 Dose: 5 mg Medical Necessity - Tobacco Use Smoking Status: Never smoker Assessment/Plan All Active Problems Atrial fibrillation with RVR (Acute) Elevated LFTs (Acute) Acute cystitis (Acute) Severe sepsis (Acute) Anemia (Acute) Status post total right knee replacement (Acute) This is a 56 years old male patient presented to the emergency room because of fever, malaise, general illness, nausea and vomiting in context of recent history of right total knee replacement and he was found to have severe sepsis secondary to acute cystitis, went into A. fib with RVR and then converted back to sinus rhythm after IV fluid bolus, found to have elevated LFT, syncope and anemia. #1 severe sepsis secondary to gram-negative walter acute cystitis lower UTI: Lactic acid is 2.5, heart rate and blood pressure stabilized. Initially, he was in A. fib with RVR, converted back to sinus rhythm with IV fluid bolus. Repeat lactic acid is normal. Urinalysis reviewed. Preliminary urine culture shows gram-negative rods with possibility of Pseudomonas. Initially was started on IV Rocephin and then changed to IV cefepime 2 g every 12 hourly. Patient is being admitted in PCU. Continue cardiac monitoring, follow blood and urine cultures, IV fluids, input output chart, repeat CBC and CMP tomorrow morning, PT OT evaluation and treatment. #2 A. fib with RVR; most probably precipitated by severe sepsis/UTI: Initial EKG revealed A. fib with RVR, rate of around 137 without acute ischemic changes. Repeat EKG after IV fluid bolus therapy, patient converted back to sinus tachycardia and heart rate has been around 90s. Blood pressure remained stable. He never history of A. fib and no history of cardiac disease. Serum magnesium normal, K3.6, TSH 1.43. Serial troponin enzymes are negative. He had 2D echocardiogram during his last admission 3 days ago and that showed ejection fraction 65%, no significant valvular heart disease and RVSP of 35. #3 syncope: This is chronic, last time attributed to orthostatic hypotension. Infection and sepsis contributing. Plan for IV fluids, cardiac monitoring, repeat orthostatic vitals today #4 postoperative anemia: Due to blood loss and hemodilution. Admission hemoglobin is 9.1 g/dL. No evidence of active bleeding, no indication for transfusion. Today 8.4. Plan to transfuse if hemoglobin less than 8 g/dL. #5 elevated LFT; most probably secondary to severe sepsis: Total bilirubin, alk phos and liver transaminases are elevated. Transaminases and alkaline phosphatase are improving. Patient denied any right upper quadrant abdominal pain. Plan: Ultrasound gallbladder, repeat LFTs tomorrow morning. #6 status post recent right total knee replacement: Surgical incision is dry and clean, no evidence of infection. Plan to consult orthopedic surgery. #7 history of DVT/PE with history of factor V Leiden positive/hypercoagulable disorder: The patient had pulmonary embolism. The patient is told to be on Coumadin lifelong. Continue Coumadin and monitor INR daily. #8 DVT prophylaxis: INR is 2.2. Code Visit Inpatient E&M: 19344 [facility] L3
[2017-08-25] MEDS: Docusate Sodium 100 MG Capsule PO (16:11)
[2017-08-25 20:32] LABS: Hematocrit 25.4 % (40-54); Hemoglobin 8.1 g/dl (13.0-16.5)
[2017-08-25] MEDS: Acetaminophen 500 MG Tablet 1000 MG PO (21:20)
[2017-08-25] MEDS: Zolpidem Tartrate 5 MG Tablet PO (21:28)
[2017-08-26] VITALS (9 sets, daily range): BP systolic 114–125; BP diastolic 66–76; PULSE 74–137; RESP 16; TEMP 36.7–36.9; O2SAT 94–97
[2017-08-26 06:32] LABS: International Normalized Ratio 2.2; Prothrombin Time (Protime)PT. 24.7 SECONDS (11.7-14.9)
[2017-08-26 06:51] LABS: ALB/GLOB Ratio 0.5 RATIO (0.9-2.4); AST(SGOT) 42 U/L (15-37); Alanine Aminotransfer ALT/SGPT 75 U/L (16-61); Albumin, Serum 2.1 g/dL (3.2-5.0); Alkaline Phosphatase 168 U/L (45-117); Anion Gap 7 (5-15); BUN 9 mg/dL (7-18); BUN/Creat Ratio 15.2 RATIO (10-20); Calcium,Total 8.1 mg/dL (8.5-10.1); Chloride 104 mmol/L (98-107); Creatinine, Serum 0.59 mg/dL (0.70-1.30); EST Glomerular Filtration Rate 150 mL/min (>60); Est Glom Filt Rate - Afr Amer 182 mL/min (>60); Estimated Creatinine Clearance 162.54 ml/min; Glucose 102 mg/dL (74-106); Potassium 3.3 mmol/L (3.5-5.1); Protein, Total 6.1 g/dL (6.4-8.2); Sodium Level 142 mmol/L (136-145)
[2017-08-26 07:00] LABS: Absolute Lymphocyte Count 1.66 X10^3/ul (0.83-4.51); Absolute Neutrophil Count 6.8 X10^3/uL (2.0-7.7); Basophil# 0.04 X10^3/uL; Basophil% 0.4 % (0-1); Eosinophil# 0.17 X10^3/uL; Eosinophils% 1.8 % (0-5); Hematocrit 27.4 % (40-54); Hemoglobin 8.6 g/dl (13.0-16.5); Lymphocyte # 1.66 X10^3/ul (4.0); Lymphocyte % 17.1 % (19-41); Mean Corp Hgb Conc 31.4 g/gl (32-36); Mean Corpuscular Hgb 28.4 pg (27.0-32.0); Mean Corpuscular Volume 90.4 fL (80-94); Mean Platelet Vol. 9.7 fl (6.2-12.0); Monocyte# 0.96 X10^3/uL; Monocyte% 9.9 % (0-10); Neutrophil # 6.76 X10^3/uL (2.7-7.7); Neutrophil % 69.9 % (47-70); Platelet Count 331 K/mm3 (150-450); RBC Distribution Width CV 15.2 % (11.6-14.6); Red Blood Count 3.03 M/mm3 (4.6-6.2); White Blood Count 9.7 K/mm3 (4.4-11.0)
[2017-08-26 07:02] LABS: Differential Indicated SCAN CRITERIA MET; POSITIVE COUNT NO; POSITIVE DIFFERENTIAL NO; POSITIVE MORPHOLOGY YES
--- NOTE | 2017-08-26 11:48 | DCINST_ITS ---
- Discharge Diagnoses Current Active Problems: Current Active and Chronic Problems Atrial fibrillation with RVR (Acute) Elevated LFTs (Acute) Acute cystitis (Acute) Severe sepsis (Acute) Anemia (Acute) Status post total right knee replacement (Acute) History of pulmonary embolism (Chronic) History of DVT (deep vein thrombosis) (Chronic) You will use the following diet at home:: Cardiac Discharge Activity: May not drive while taking narcotic pain medications. Additional Activity Instructions:: OUTPATIENT REHAB FOR RIGHT TKR Suture Line Care: Avoid Pulling/Pushing, Avoid Pinching/Bending Allergies/Adverse Reactions: Allergies Sulfa (Sulfonamide Antibiotics) Allergy (Verified 08/24/17 12:40) Unknown Medications to take at Discharge Warfarin Sodium 5 mg PO DAILY 09/05/13 traMADol [Ultram] 50 mg PO Q6H PRN PRN #90 tab 08/18/17 Acetaminophen [Tylenol] 1,000 mg PO Q8 PRN 08/24/17 Ibuprofen [Motrin] 800 mg PO TID 08/24/17 Ciprofloxacin [Cipro] 500 mg PO BID #14 tab 08/26/17 Ferrous Sulfate [Iron] 325 mg PO BID #60 tab 08/26/17 The following prescriptions were given: Ciprofloxacin [Cipro] 500 mg PO BID #14 tab Ferrous Sulfate [Iron] 325 mg PO BID #60 tab Primary Care Physician: Dc Glez MD [Primary Care Provider] - Please follow up with your Primary Care Physician in: in 1-2 weeks Test Results: Test results from this visit will be discussed in further detail at your follow- up appointment, if applicable. Please Follow Up With: Chas Vaz, When: in 2 weeks
--- NOTE | 2017-08-26 11:48 | PCM.DC.SUM ---
Discharge Date and Diagnosis Date of Admission: 08/24/17 Date of Discharge: 08/26/17 - Primary Discharge Diagnosis Active and Suspected Problems #1 severe sepsis secondary to Pseudomonas acute cystitis lower UTI: #2 A. fib with RVR; most probably precipitated by severe sepsis/UTI: Resolved. Converted to normal sinus rhythm #3 syncope, most probably from sepsis and orthostatic hypotension: #4 postoperative anemia from recent right TKR and possible due to Coumadin and Lovenox: #5 elevated LFT; most probably secondary to severe sepsis: - Secondary Discharge Diagnosis Chronic Problems History of pulmonary embolism (Chronic) History of DVT (deep vein thrombosis) (Chronic) Hospital Course and Treatment Summary of Care Provided: Herbert is a 56 years old male patient presented to the emergency room because of fever, malaise, general illness, nausea and vomiting in context of recent history of right total knee replacement and he was found to have severe sepsis secondary to acute cystitis, went into A. fib with RVR and then converted back to sinus rhythm after IV fluid bolus, found to have elevated LFT, syncope and anemia. Seen and examined. Patient feels much better. Does not have suprapubic pain/burning micturition or other lower urinary tract symptoms. No fever. Vital signs stable.; General: Alert, Oriented x3, Cooperative HEENT: Atraumatic, PERRLA, EOMI, Normocephalic Neck: Supple, No JVD, Negative Carotid Bruits Lungs: Clear to auscultation, Normal air movement, No rhonchi, No wheeze Cardiovascular: Regular rate, No murmurs Abdomen: Bowel Sounds Present, Soft, Non Tender, Non-Distended, - No suprapubic tenderness. Hernial sites intact. Extremities: No edema, Capillary Refill Less than 3 Seconds Skin: No rashes, No breakdown Musculoskeletal: Arthritic Changes, - Right knee is swollen. Marii intact. No obvious erythema or signs of infection on the postoperative site Neurological: Cranial nerves II-XII grossly intact, Motor Exam 5/5 strength throughout Psych/Mental Status: Normal Affect, Appropriate #1 severe sepsis secondary to Pseudomonas acute cystitis lower UTI: Lactic acid is 2.5, heart rate and blood pressure stabilized. Initially, he was in A. fib with RVR, converted back to sinus rhythm with IV fluid bolus. Repeat lactic acid is normal. Urinalysis reviewed. Urine culture grew Pseudomonas more than 100,000 colonies. Initially was started on IV Rocephin and then changed to IV cefepime 2 g every 12 hourly. Patient is being admitted in PCU. Continue cardiac monitoring, follow blood and urine cultures, IV fluids, input output chart, repeat CBC and CMP tomorrow morning, PT OT evaluation and treatment. Percentage of the report, patient is discharged on ciprofloxacin for 7 more days. Follow with PCP Ultrasound kidney and bladder was done as the patient has Pseudomonas UTI with no previous UTI or history of obstructive uropathy in the past. It is reported as there is a hypoechoic focus of the midpole of the right kidney measuring 3.0 x 3.0 x 2.3 cm which is dermatology sales representative of prominent column of Hector. This was discussed physically with the radiologist Dr. Gonzalez. This was present on the previous CT scan of 2012 with no change.. As per radiologist Dr. 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 No need to follow-up until clinical circumstances changes. #2 A. fib with RVR; most probably precipitated by severe sepsis/UTI: Initial EKG revealed A. fib with RVR, rate of around 137 without acute ischemic changes. Repeat EKG after IV fluid bolus therapy, patient converted back to sinus tachycardia and heart rate has been around 90s. Blood pressure remained stable. He never history of A. fib and no history of cardiac disease. Serum magnesium normal, K3.6, TSH 1.43. Serial troponin enzymes are negative. He had 2D echocardiogram during his last admission 3 days ago and that showed ejection fraction 65%, no significant valvular heart disease and RVSP of 35. #3 syncope, most probably from sepsis and orthostatic hypotension: This is chronic, last time attributed to orthostatic hypotension. Infection and sepsis contributing. She was treated with IV fluid. Orthostatic vital signs shows increasing heart rate from 83 in supine position to 118 in standing position but no significant change in blood pressure. #4 postoperative anemia and possible due to Coumadin and Lovenox: Due to blood loss and hemodilution. Admission hemoglobin is 9.1 g/dL. and hemoglobin stays between 8-9 g percent. No evidence of active bleeding but patient might have slow chronic GI loss because of Coumadin and was also on Lovenox prior to admission because INR was subtherapeutic. Patient did not require transfusion. IV iron sucrose infusion was given. Patient discharged on ferrous sulfate. #5 elevated LFT; most probably secondary to severe sepsis: Total bilirubin, alk phos and liver transaminases are elevated. Transaminases and alkaline phosphatase showed improving trend.. Patient denied any right upper quadrant abdominal pain. Right upper quadrant sonogram is negative for acute cholecystitis or cholelithiasis. #6 status post recent right total knee replacement: Surgical incision is dry and clean, no evidence of infection. Plan to consult orthopedic surgery. #7 history of DVT/PE with history of factor V Leiden positive/hypercoagulable disorder: The patient had pulmonary embolism. The patient is told to be on Coumadin lifelong. INR therapeutic. Coumadin dose decreased to 4 mg daily and prescription given. Coumadin dose decreased as the patient started on Cipro which tends to increase INR. #8 DVT prophylaxis: INR is 2.2. Discharge medication reconciliation done. Discharge follow-up instructions completed and discussed with the patient in detail. Potential drug to drug interaction of Cipro with Coumadin and requirement of low-dose Coumadin discussed with the patient. Patient was emphasized to follow-up with CBC and INR on 08/29/2017. Message left with the PCP Dr. Dc Le to follow-up on that. Total time spent, exact 35 minutes on discharge meds reconciliation, examination, review of imaging and blood test and discussion with the patient on follow-up instructions. Clinical Impression(s) from Imaging Studies Chest X-Ray 08/24/17 12:36 IMPRESSION: Mild cardiomegaly. No focal consolidation. Electronically Signed: Jorge Wills DO at 13:11 EDT Tel , Service support , Knee X-Ray 08/24/17 12:38 IMPRESSION: Soft tissue edema, which appears increased from the prior study. Suprapatellar effusion. Intact orthopedic hardware. Electronically Signed: Jorge Wills DO at 13:18 EDT Tel , Service support , Gallbladder Ultrasound 08/25/17 08:00 IMPRESSION: Hypoechoic focus of the midpole of the right kidney measuring 2.8 x 2.5 x 1.5 cm which is of unknown etiology or significance. Noncontrast CT of the kidneys or MRI may be helpful for further evaluation of this at this time. Electronically Signed: Nolberto Ambrocio MD at 19:20 EDT , Service support , Renal Ultrasound 08/25/17 10:45 IMPRESSION: 1. There is a hypoechoic focus of the midpole of the right kidney measuring 3.0 x 3.0 x 2.3 cm. This does not appear to represent a simple cyst. This may merely represent a prominent column of Hector. 2. A small left renal cyst reported on prior CT of 2012 is not seen on this ultrasound study. 3. Noncontrast CT of the kidneys may be helpful for further evaluation at this time. Electronically Signed: Nolberto Ambrocio MD at 16:57 EDT , Service support , Discharge Activity: May not drive while taking narcotic pain medications. Additional Activity Instructions:: OUTPATIENT REHAB FOR RIGHT TKR Suture Line Care: Avoid Pulling/Pushing, Avoid Pinching/Bending Home Medications: Medications to take at Discharge traMADol [Ultram] 50 mg PO Q6H PRN PRN #90 tab 08/18/17 Acetaminophen [Tylenol] 1,000 mg PO Q8 PRN 08/24/17 Ibuprofen [Motrin] 800 mg PO TID 08/24/17 Ciprofloxacin [Cipro] 500 mg PO BID #14 tab 08/26/17 Ferrous Sulfate [Iron] 325 mg PO BID #60 tab 08/26/17 Warfarin [Coumadin] 4 mg PO DAILY@1700 #7 tab 08/26/17 Following Prescrptions Were Given to Patient: Warfarin [Coumadin] 4 mg PO DAILY@1700 #7 tab Ciprofloxacin [Cipro] 500 mg PO BID #14 tab Ferrous Sulfate [Iron] 325 mg PO BID #60 tab Primary Care Physician: Dc Glez MD [Primary Care Provider] - Please follow up with your Primary Care Physician in: in 1-2 weeks Please Follow Up With: Milind,Chas, DO When: in 2 weeks Medical Necessity - Tobacco Use Smoking Status: Never smoker Meaningful Use Info Meaningful Use Diagnoses (Choose all that apply): None applicable Code Visit Inpatient E&M: 89601 Disch Hosp
== END 2017-08-26 14:32 | disposition home or self-care (01) | DRG 872 ==
LOC: ED 15:06 → PCU 16:02
PROVIDERS: Admitting Provider Hospitalist; Emergency Provider Emergency Medicine; Family Provider Family Medicine; PCP Family Medicine; Visit Provider Internal Medicine
DX: A41.9 Sepsis, unspecified organism (principal); N30.00 Acute cystitis without hematuria; D68.51 Activated protein C resistance; D62 Acute posthemorrhagic anemia; R65.20 Severe sepsis without septic shock; Z86.711 Personal history of pulmonary embolism; I95.1 Orthostatic hypotension; I48.91 Unspecified atrial fibrillation; Z96.651 Presence of right artificial knee joint; B96.5 Pseudomonas (aeruginosa) (mallei) (pseudomallei) as the cause of diseases classified elsewhere; Z86.718 Personal history of other venous thrombosis and embolism; Z79.01 Long term (current) use of anticoagulants
CPT/HCPCS: 36415; 71045; 73560; 76705; 76770; 80053; 81001; 83605; 83690; 83735; 84443; 84484; 85014; 85018; 85025; 85610; 85730; 87040; 87077; 87086; 87088; 87184; 87186; 93005; 93306; 97110; 97116; 97162; 97166; 97530; 99285; J1756; A4216; J0696

== ENCOUNTER → 2017-08-29 13:56 | Outpatient (CLI) | payer OTHER, SELFPAY ==
[2017-08-29 16:18] LABS: Hematocrit 28.3 % (40-54); Hemoglobin 8.7 g/dl (13.0-16.5); Mean Corp Hgb Conc 30.7 g/gl (32-36); Mean Corpuscular Hgb 28.2 pg (27.0-32.0); Mean Corpuscular Volume 91.6 fL (80-94); Mean Platelet Vol. 10.4 fl (6.2-12.0); Platelet Count 660 K/mm3 (150-450); RBC Distribution Width CV 15.5 % (11.6-14.6); RBC Distribution Width SD 50.4 fl (35.1-43.9); Red Blood Count 3.09 M/mm3 (4.6-6.2); White Blood Count 16.5 K/mm3 (4.4-11.0)
[2017-08-29 16:19] LABS: Scan Indicated on CBC? Y/N NO
[2017-08-29 16:20] LABS: International Normalized Ratio 2.5; Prothrombin Time (Protime)PT. 26.8 SECONDS (11.7-14.9)
== END ==
PROVIDERS: Family Provider Family Medicine; PCP Family Medicine; Visit Provider Internal Medicine
DX: D64.9 Anemia, unspecified (principal); Z79.01 Long term (current) use of anticoagulants
CPT/HCPCS: 36415; 85027; 85610

== ENCOUNTER → 2017-09-13 09:13 | Outpatient (CLI) | payer OTHER, SELFPAY ==
[2017-09-13 10:43] LABS: Absolute Lymphocyte Count 1.22 X10^3/ul (0.83-4.51); Absolute Neutrophil Count 13.9 X10^3/uL (2.0-7.7); Basophil# 0.06 X10^3/uL; Basophil% 0.4 % (0-1); Eosinophil# 0.05 X10^3/uL; Eosinophils% 0.3 % (0-5); Hemoglobin 9.7 g/dl (13.0-16.5); Lymphocyte # 1.22 X10^3/ul (4.0); Lymphocyte % 7.4 % (19-41); Mean Corp Hgb Conc 30.3 g/gl (32-36); Mean Corpuscular Hgb 26.4 pg (27.0-32.0); Mean Platelet Vol. 9.2 fl (6.2-12.0); Monocyte# 1.24 X10^3/uL; Monocyte% 7.5 % (0-10); Neutrophil # 13.87 X10^3/uL (2.7-7.7); Neutrophil % 84.2 % (47-70); POSITIVE COUNT NO; POSITIVE DIFFERENTIAL NO; POSITIVE MORPHOLOGY NO; Platelet Count 524 K/mm3 (150-450); RBC Distribution Width CV 16.5 % (11.6-14.6); RBC Distribution Width SD 52.6 fl (35.1-43.9); Red Blood Count 3.68 M/mm3 (4.6-6.2); White Blood Count 16.5 K/mm3 (4.4-11.0)
[2017-09-13 10:44] LABS: Erythrocyte Sedimentation Rate 65 mm/hr (0-20)
[2017-09-13 10:53] LABS: Prothrombin Time (Protime)PT. 22.6 SECONDS (11.7-14.9)
[2017-09-13 10:54] LABS: Partial Thromboplast Time 60.6 Seconds (24.1-36.2)
== END ==
PROVIDERS: Family Provider Family Medicine; PCP Family Medicine; Visit Provider Physician Assistant
DX: Z01.818 Encounter for other preprocedural examination (principal); I48.91 Unspecified atrial fibrillation
CPT/HCPCS: 36415; 85025; 85610; 85652; 85730; 86140; 93005

== ENCOUNTER → 2017-09-15 15:06 | Outpatient (CLI) | payer OTHER, SELFPAY ==
[2017-09-15 16:59] LABS: RBC /Synovial Fluid 0.067 10^6/uL (0); Synovial Fld Mononuclear WBC % 3.4 %; Synovial Fld Polynuclear WBC % 96.6 %
[2017-09-15 18:48] LABS: AUTO B FLUID DILUENT BKGD CT WBC <0.1 RBC <0.01 (W<.1,R<.01)
[2017-09-15 18:49] LABS: Color / Synovial Fluid Red (Pale Yellow)
[2017-09-15 18:50] LABS: Appearance /Synovial Fluid Turbid (CLEAR)
[2017-09-15 18:51] LABS: Source / Synovial Fluid RT KNEE
[2017-09-15 19:01] LABS: Lymph 1 %; Monocyte /Synovial Fluid 1 %; Neutrophil 98 % (0-25)
[2017-09-15 19:06] LABS: Body Fluid QC Type(s) BF4Q,BF5Q
[2017-09-16 09:33] LABS: Pathologist Comment Reviewed
== END ==
PROVIDERS: Family Provider Family Medicine; PCP Family Medicine; Visit Provider Orthopaedic Surgery
DX: Z96.651 Presence of right artificial knee joint (principal)
CPT/HCPCS: 87070; 87075; 87205; 89050; 89051

== ENCOUNTER 2017-09-18 17:36 | Inpatient (IN) | payer OTHER, SELFPAY ==
[2017-09-18 17:40] VITALS: BMI 23.6
[2017-09-18 17:48] VITALS: BP 109/74; PULSE 86; RESP 17; TEMP 36.8; O2SAT 100
[2017-09-18 17:56] VITALS: BMI 23.7
[2017-09-18 18:05] VITALS: PULSE 80
[2017-09-18] MEDS: 0.9% NaCl Peripheral Flush Adult/Peds IV ×2 (19:33→20:32)
[2017-09-18 19:35] LABS: Absolute Lymphocyte Count 2.31 X10^3/ul (0.83-4.51); Absolute Neutrophil Count 4.8 X10^3/uL (2.0-7.7); Basophil% 1.2 % (0-1); Eosinophil# 0.39 X10^3/uL; Eosinophils% 4.8 % (0-5); Hematocrit 30.1 % (40-54); Hemoglobin 9.2 g/dl (13.0-16.5); Lymphocyte # 2.31 X10^3/ul (4.0); Lymphocyte % 28.4 % (19-41); Mean Corp Hgb Conc 30.6 g/gl (32-36); Mean Corpuscular Hgb 26.1 pg (27.0-32.0); Mean Corpuscular Volume 85.3 fL (80-94); Mean Platelet Vol. 8.5 fl (6.2-12.0); Monocyte# 0.47 X10^3/uL; Monocyte% 5.8 % (0-10); Neutrophil # 4.84 X10^3/uL (2.7-7.7); Neutrophil % 59.6 % (47-70); Platelet Count 420 K/mm3 (150-450); RBC Distribution Width CV 16.4 % (11.6-14.6); RBC Distribution Width SD 51.3 fl (35.1-43.9); Red Blood Count 3.53 M/mm3 (4.6-6.2); White Blood Count 8.1 K/mm3 (4.4-11.0)
[2017-09-18 19:39] LABS: POSITIVE COUNT NO; POSITIVE DIFFERENTIAL NO; POSITIVE MORPHOLOGY NO
[2017-09-18 19:43] LABS: International Normalized Ratio 1.3; Prothrombin Time (Protime)PT. 16.6 SECONDS (11.7-14.9)
[2017-09-18 19:44] LABS: Anion Gap 4 (5-15); BUN 13 mg/dL (7-18); BUN/Creat Ratio 15.5 RATIO (10-20); Calcium,Total 8.7 mg/dL (8.5-10.1); Chloride 103 mmol/L (98-107); Creatinine, Serum 0.84 mg/dL (0.70-1.30); EST Glomerular Filtration Rate 100 mL/min (>60); Est Glom Filt Rate - Afr Amer 121 mL/min (>60); Estimated Creatinine Clearance 114.17 ml/min; Glucose 97 mg/dL (74-106); Potassium 3.8 mmol/L (3.5-5.1); Sodium Level 138 mmol/L (136-145)
--- NOTE | 2017-09-18 19:48 | HP.PCM_ITS ---
History of Present Illness Date of Admission: 09/18/17 Chief Complaint: Right knee pain status post total knee arthroplasty The patient is a 56 year old M that is well known to me. Shelton had a total knee arthroplasty completed on August 15, 2017. During the course of his postoperative recovery he did develop a severe urinary tract infection with fevers of over 102?F that required admission. He did appear to recover from that however earlier this week started developing severe pain in his knee that resulted on him coming to my office for evaluation. Preliminary lab work was obtained which was suspicious for possibility of further infection therefore his knee was aspirated on which did reveal a high suspicion for periprosthetic joint infection as his white blood cell count was over 20,000 in the knee aspirate and 98% neutrophils. Because of patient's chronic coagulopathy I have bridged him with Lovenox over the weekend and stopped his Coumadin in anticipation of proceeding with irrigation debridement and polyethylene exchange tomorrow. Patient has not had any antibiotics in the past 2 weeks. He is doing fairly well today with minimal discomfort Past Medical History Past Medical History (Chronic Problems): Chronic Problems History of pulmonary embolism (Chronic) History of DVT (deep vein thrombosis) (Chronic) Allergies Sulfa (Sulfonamide Antibiotics) Allergy (Verified 08/24/17 12:40) Unknown Home Medications: Ambulatory Orders Medication Instructions Recorded Acetaminophen [Tylenol] 1,000 mg PO BID 08/24/17 Ferrous Sulfate [Iron] 325 mg PO BID #60 tab 08/26/17 Docusate Sodium [Colace] 100 mg PO BID 09/18/17 Surgical History: total knee arthroplasty Psychiatric History: No pertinent psych hx Smoking Status: Never smoker - *Family History Maternal History Items: No pertinent history Paternal History Items: No pertinent history Review of Systems Constitutional: Denies: Chills, Fever, Weight Change HEENT: Denies: Head Aches, Sinus Congestion, Sinus Drainage Cardiovascular: Denies: Chest Pain, Palpitations Respiratory: Denies: Cough, Shortness of breath at rest, Sputum production Gastrointestinal: Denies: Abdominal Pain, Nausea, Vomiting Genitourinary: Denies: Dysuria Musculoskeletal: Reports: - - Per history of present illness. Denies: Joint Pain, Joint Tenderness Skin: Reports: Wounds - Healed anterior right knee incision Neurological: Denies: Numbness, Tingling, Focal weakness Psychiatric: Denies: Anxiety, Depression, Homicidal Ideations, Suicidal Ideations VTE Information - Inpt Only VTE Present on Admission: Yes VTE Mechan Device Prophylaxis: SCD's, Thigh High SHINE Hose VTE Pharm Prophylaxis ordered?: Yes - Physical Exam General: Alert, Oriented x3, Cooperative HEENT: Atraumatic, PERRLA, EOMI, Normocephalic Neck: Supple - What ever supposed Lungs: Normal air movement Cardiovascular: Regular rate Abdomen: Soft, Non Tender Skin: Incision Musculoskeletal: - - No calf pain is identified. Well-healed incision. Patient 's range of motion is 3?70? flexion. He is neurovascularly intact. Able to wiggle all of his toes. Neurological: Cranial nerves II-XII grossly intact Psych/Mental Status: Normal Affect Vital Signs Temp Pulse Resp BP Pulse Ox 98.2 F 80 17 109/74 100 09/18/17 17:48 09/18/17 18:05 09/18/17 17:48 09/18/17 17:48 09/18/17 17:48 Oxygen Delivery Method Room Air Weight: 184 lb 5 oz Body Mass Index (BMI) 23.6 Laboratory Tests Past 24 Hrs 09/18/17 09/18/17 09/18/17 19:15 19:15 19:15 WBC 8.1 RBC 3.53 L Hgb 9.2 L Hct 30.1 L MCV 85.3 MCH 26.1 L MCHC 30.6 L RDW 16.4 H RDW Differential 51.3 H Plt Count 420 MPV 8.5 Immature Gran % (Auto) 0.200 Neut % (Auto) 59.6 Lymph % (Auto) 28.4 [place] % (Auto) 5.8 Eos % (Auto) 4.8 Baso % (Auto) 1.2 H Absolute Neuts (auto) 4.8 Absolute Lymphs (auto) 2.31 Total Counted Not Reportable PT Pending INR Pending Sodium 138 Potassium 3.8 Chloride 103 Carbon Dioxide 31.0 Anion Gap 4 L BUN 13 Creatinine 0.84 Estim Creat Clear Calc 114.17 Est GFR (MDRD) Af Amer 121 Est GFR (MDRD) Non-Af 100 BUN/Creatinine Ratio 15.5 Glucose 97 Calcium 8.7 Assessment/Plan All Active Problems Atrial fibrillation with RVR (Acute) Elevated LFTs (Acute) Acute cystitis (Acute) Severe sepsis (Acute) Anemia (Acute) Status post total right knee replacement (Acute) 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 I discussed this with the patient at length including risks of surgery and alternatives to surgery. Patient is in agreement that aggressive treatment of this suspected infection is warranted and we will proceed with the above procedure. We will hold antibiotics until good cultures have been obtained intraoperatively and will consult medicine as well as infectious disease tomorrow after the procedure
[2017-09-18 20:21] VITALS: BMI 23.6
[2017-09-18] MEDS: Lactated Ringers 1,000 ML 100 ML IV (20:32)
[2017-09-18 20:40] VITALS: BP 128/69; PULSE 71; RESP 18; TEMP 36.9; O2SAT 99
[2017-09-18 20:42] VITALS: PULSE 71; RESP 18; O2SAT 99
[2017-09-18] MEDS: Enoxaparin 80 MG/0.8 ML Syringe SC (23:11)
[2017-09-19] VITALS (16 sets, daily range): BP systolic 100–133; BP diastolic 57–89; PULSE 58–100; RESP 14–18; TEMP 36.3–36.8; O2SAT 92–100; BMI 23.6
--- NOTE | 2017-09-19 05:55 | EKG12_ITS ---
Test Reason : Blood Pressure : / mmHG Vent. Rate : 067 BPM Atrial Rate : 067 BPM P-R Int : 156 ms QRS Dur : 088 ms QT Int : 422 ms P-R-T Axes : 047 002 031 degrees QTc Int : 445 ms Normal sinus rhythm Low voltage QRS (limb leads) Confirmed by JENNIFER CONDON, SHAKEEL ([id number]), food editor MINA GRAYSON ([id number] on 09/28/2017 11:20:16 AM Referred By: Confirmed By:SHAKEEL RODRIGUEZ MD
[2017-09-19] MEDS: Lactated Ringers 1,000 ML 100 ML IV (06:01)
--- NOTE | 2017-09-19 08:51 | NURSING ---
report called to AC
--- NOTE | 2017-09-19 10:35 | CASEMGMT ---
RN CM attempted to complete RN CM assessment at this time. Patient out of room and currently in surgery. RN CM will attempt again at a later time.
--- NOTE | 2017-09-19 11:22 | PCA ---
pt off floor
--- NOTE | 2017-09-19 11:30 | PCM.PN.HOSP ---
Subjective: Patient is a 56-year-old male with past medical history of DVT and PE due to Factor V Leiden deficiency. He was admitted by orthopedic surgery for periprosthetic knee infection and is due for surgery. He had total knee arthroplasty in July 2017 and during the postop recovery was noted to have a severe UTI with fevers of over 102 Fahrenheit that required admission. He subsequently recovered from the UTI but earlier during the week of presentation started having severe pain in his knee; he had aspiration of the left knee analysis of the fluid showed white cell count over 20,000 with 90% neutrophils. He was bridged with Lovenox on account of his history of coagulopathy and Coumadin stopped in anticipation of irrigation debridement and polyethylene exchange which occurred on 09/19/2017. Hospitalist service was consulted for medical management. Patient seen and examined after surgery. He complains of pain in the left knee, but says it is manageable. He denies any SOB, chest pain, palpitations, abdominal pain, diarrhea or vomiting. Review of systems is otherwise negative. Vitals/I&O's: Vital Signs Temp Pulse Resp BP Pulse Ox 98.2 F 72 18 128/70 H 97 09/19/17 08:53 09/19/17 08:53 09/19/17 08:53 09/19/17 08:53 09/19/17 08:53 Oxygen Delivery Method Room Air Weight: 184 lb 5 oz Body Mass Index (BMI) 23.6 Intake and Output for Last 24 Hours 09/17/17 09/18/17 09/19/17 23:59 23:59 23:59 Intake Total 1460 / 1460 Output Total 1350 / 1350 Balance 110 / 110 General: Alert, Oriented x3, Cooperative, No apparent distress HEENT: Atraumatic, PERRLA, EOMI, Normocephalic Oral: Moist Mucosa Neck: Supple, No JVD, Negative Carotid Bruits Lungs: Clear to auscultation, Normal air movement, No rhonchi, No wheeze, No rales Cardiovascular: Regular rate, Regular Rhythm, Normal S1, Normal S2, No murmurs Abdomen: Bowel Sounds Present, Soft, Non Tender, Non-Distended, No Hepato-splenomegaly Extremities: No edema, Capillary Refill Less than 3 Seconds Skin: No rashes, No breakdown Musculoskeletal: - - RLE knee wrapped in bandage Lymphatic: No Cervical, Supraclavicular, or Inguinal Adenopathy Neurological: Cranial nerves II-XII grossly intact Psych/Mental Status: Normal Affect, Alert and oriented to time, place, person, mood and affect Laboratory Results 09/18/17 19:15: WBC 8.1, RBC 3.53 L, Hgb 9.2 L, Hct 30.1 L, MCV 85.3, MCH 26.1 L, MCHC 30.6 L, RDW 16.4 H, RDW Differential 51.3 H, Plt Count 420, MPV 8.5, Immature Gran % (Auto) 0.200, Neut % (Auto) 59.6, Lymph % (Auto) 28.4, [place] % (Auto) 5.8, Eos % (Auto) 4.8, Baso % (Auto) 1.2 H, Absolute Neuts (auto) 4.8, Absolute Lymphs (auto) 2.31, Total Counted Not Reportable 09/18/17 19:15: Sodium 138, Potassium 3.8, Chloride 103, Carbon Dioxide 31.0, Anion Gap 4 L, BUN 13, Creatinine 0.84, Estim Creat Clear Calc 114.17, Est GFR (MDRD) Af Amer 121, Est GFR (MDRD) Non-Af 100, BUN/Creatinine Ratio 15.5, Glucose 97, Calcium 8.7 09/18/17 19:15: PT 16.6 H, INR 1.3 Current Medications Lactated Ringer's () 1,000 mls @ 125 mls/hr IV .Q8H COUNTS INCLUDE 234 BEDS AT THE [facility] Nutritional Formula (Lactose Free) (Ensure Enlive) 120 ml PO 4X/DAY COUNTS INCLUDE 234 BEDS AT THE [facility] Last Admin: 09/19/17 08:52 Dose: Not Given Sodium Chloride () 5 - 30 ml IV UD PRN PRN Reason: SALINE FLUSH Last Admin: 09/18/17 20:32 Dose: 10 ml Medical Necessity - Tobacco Use Smoking Status: Never smoker Assessment/Plan All Active Problems Atrial fibrillation with RVR (Acute) Elevated LFTs (Acute) Acute cystitis (Acute) Severe sepsis (Acute) Anemia (Acute) Status post total right knee replacement (Acute) 1.Periprosthetic right knee infection s/p debridement of knee arthroplasty with polyethylene exchange today is POD 0. complains of pain in his right knee, but pain is well controlled. pain meds as per orthopedics PT/OT on board incentive spirometry on ketorolac and morphine for pain. 2. Factor V Leiden deficiency with history of DVT and PE (2004 and 2005 respectively) on coumadin for senior living anticoagulation; was bridged with lovenox for this surgery will resume coumadin tomorrow will monitor INR 3. ANemia: Hb is 9.5; baseline ~ 11. due to possible blood loss from surgery. Currently stable. 'Will monitor DVT prophylaxis: currently PCDs and lovenox. To resume coumadin tomorrow Thank you for the courtesy of the consult. We will continue to follow with you. This note was generated with [employer] dictation software. It may contain incorrect words, spelling, and punctuation that were not noted in checking the note before signing. Code Visit OBSV E&M: 36079 Initial observation care L2
[2017-09-19] MEDS: Vancomycin IV 1,000 MG/200 ML BAG 200 MG IV (11:43)
--- NOTE | 2017-09-19 12:45 | PCM.OPRPT ---
Report of Operation Date of Procedure: 09/19/17 Pre-Operative Diagnosis: Periprosthetic joint infection right knee Post-Operative Diagnosis: Same with abscess right thigh Surgery/Procedure Performed:: Irrigation debridement with polyethylene exchange right knee and thigh Description of Surgical Findings:: Abscess noted deep to quadriceps muscle in anterior thigh precision lens grinder apprentice: Hussain Flores Type of Anesthesia:: General Anesthesiologist: Chris Huber Specimen's removed: Cultures within the knee and thigh Estimated Blood Loss (mL): 100 Fluids Replaced: See anesthesia report Description of Procedure: Implants: [place] triathlon ultra congruent size 6 9 mm polyethylene Surgical indications: Please see history and physical dated 09/18/2017 Procedure description: Tanmay was greeted in the preoperative area. His right thigh was marked with surgical marker. Preoperative antibiotics were held until cultures were obtained. She he was then taken or [address] 2 in a stable condition. After adequate anesthesia was obtained and airway secured a well-padded tourniquet was placed the patient's right thigh the leg was then prepped draped in usual sterile fashion. Surgical times performed surgery was commenced. Patient's previous incision site was utilized and extended proximally the extensor mechanism was identified and the Ethibond suture was noted a medial parapatellar arthrotomy was performed and the previous Ethibond suture material was removed. There is some sanguinous fluid within the knee. I did extend the incision and the quadriceps tendon proximally and quickly encountered substantial amount of purulent material in the anterior thigh deep to the quadriceps muscle superficial to the femur this was evacuated and extensively debrided. Separate cultures were obtained of this material but certainly this did appear to be grossly infection. This was copiously irrigated with approximately 12,000 mL of fluid also use a [facility] surgical scrub brush in order to debride the knee mechanically. Extensive removal of the involved tissue was also performed. The previous polyethylene was removed and the back of the knee was also irrigated and debrided. After adequate debridement was achieved I did place a drain in the knee high up in the thigh also replace the polyethylene with a slightly smaller 9 mm appropriate size polyethylene. The locking mechanism was engaged and this is confirmed to be locked. The wound was then closed with absorbable non-braided suture in layers. Unfortunately there is significant tightness to the knee because of the quadriceps involvement. Clinically intraoperatively he only has 0-65? of flexion. Postoperatively I am going to place him in a CPM machine in order to obtain additional motion as the patient rests and slowly hopefully to increase this to greater than 90? as this heals. Anticipate the patient will require 6 weeks of IV antibiotics and I am going to ask infectious disease to assist with managing this as well as S the hospitalist to consult because of his coagulopathy. Patient did tolerate the procedure well and was taken to the recovery room in stable condition Physician speech pathologist assistant was integral in all portions of this procedure. They assisted with positioning the patient, draping the extremity, holding retractors, closing the wound, and applying the dressing. This was all done under my direct supervision. The physician speech pathologist assistant was essential for a successful, efficient surgery. - Complications None known - Admit VTE Documentation VTE Present on Admission: Yes VTE Mechan Device Prophylaxis: SCD's, Thigh High SHINE Hose VTE Pharm Prophylaxis ordered?: Yes
--- NOTE | 2017-09-19 12:51 | OP.PCM_ITS ---
Report of Operation Date of Procedure: 09/19/17 Pre-Operative Diagnosis: Periprosthetic joint infection right knee Post-Operative Diagnosis: Same with abscess right thigh Surgery/Procedure Performed:: Irrigation debridement with polyethylene exchange right knee and thigh Description of Surgical Findings:: Abscess noted deep to quadriceps muscle in anterior thigh engraving operator: Hussain Flores Type of Anesthesia:: General Anesthesiologist: Chris Huber Specimen's removed: Cultures within the knee and thigh Estimated Blood Loss (mL): 100 Fluids Replaced: See anesthesia report Description of Procedure: Implants: [place] triathlon ultra congruent size 6 9 mm polyethylene Surgical indications: Please see history and physical dated 09/18/2017 Procedure description: Tanmay was greeted in the preoperative area. His right thigh was marked with surgical marker. Preoperative antibiotics were held until cultures were obtained. She he was then taken or [address] 2 in a stable condition. After adequate anesthesia was obtained and airway secured a well- padded tourniquet was placed the patient's right thigh the leg was then prepped draped in usual sterile fashion. Surgical times performed surgery was commenced. Patient's previous incision site was utilized and extended proximally the extensor mechanism was identified and the Ethibond suture was noted a medial parapatellar arthrotomy was performed and the previous Ethibond suture material was removed. There is some sanguinous fluid within the knee. I did extend the incision and the quadriceps tendon proximally and quickly encountered substantial amount of purulent material in the anterior thigh deep to the quadriceps muscle superficial to the femur this was evacuated and extensively debrided. Separate cultures were obtained of this material but certainly this did appear to be grossly infection. This was copiously irrigated with approximately 12,000 mL of fluid also use a [facility] surgical scrub brush in order to debride the knee mechanically. Extensive removal of the involved tissue was also performed. The previous polyethylene was removed and the back of the knee was also irrigated and debrided. After adequate debridement was achieved I did place a drain in the knee high up in the thigh also replace the polyethylene with a slightly smaller 9 mm appropriate size polyethylene. The locking mechanism was engaged and this is confirmed to be locked. The wound was then closed with absorbable non-braided suture in layers. Unfortunately there is significant tightness to the knee because of the quadriceps involvement. Clinically intraoperatively he only has 0-65? of flexion. Postoperatively I am going to place him in a CPM machine in order to obtain additional motion as the patient rests and slowly hopefully to increase this to greater than 90? as this heals. Anticipate the patient will require 6 weeks of IV antibiotics and I am going to ask infectious disease to assist with managing this as well as S the hospitalist to consult because of his coagulopathy. Patient did tolerate the procedure well and was taken to the recovery room in stable condition Physician practice assistant was integral in all portions of this procedure. They assisted with positioning the patient, draping the extremity, holding retractors , closing the wound, and applying the dressing. This was all done under my direct supervision. The physician practice assistant was essential for a successful, efficient surgery. - Complications None known - Admit VTE Documentation VTE Present on Admission: Yes VTE Mechan Device Prophylaxis: SCD's, Thigh High SHINE Hose VTE Pharm Prophylaxis ordered?: Yes
--- NOTE | 2017-09-19 13:11 | PCA ---
pt off floor
[2017-09-19] MEDS: Lactated Ringers 1,000 ML 125 ML IV ×2 (14:08→21:57)
[2017-09-19] MEDS: Acetaminophen 500 MG Tablet 1000 MG PO ×2 (15:30→21:58)
[2017-09-19] MEDS: Ketorolac 15 MG/ML Vial IV (15:31)
--- NOTE | 2017-09-19 15:45 | PCA ---
cori/rn in with pt
[2017-09-19] MEDS: Enoxaparin 80 MG/0.8 ML Syringe SC (21:57)
[2017-09-19] MEDS: Senna/Docusate Sodium 1 Tablet 2 TABLET PO (21:58)
[2017-09-20] MEDS: Ketorolac 15 MG/ML Vial IV (00:19)
[2017-09-20 03:50] VITALS: BP 103/57; PULSE 79; RESP 18; TEMP 36.6; O2SAT 98
[2017-09-20 03:56] VITALS: PULSE 79
[2017-09-20 06:06] LABS: Hematocrit 29.3 % (40-54); Hemoglobin 8.9 g/dl (13.0-16.5); Mean Corp Hgb Conc 30.4 g/gl (32-36); Mean Corpuscular Hgb 26.7 pg (27.0-32.0); Mean Platelet Vol. 8.8 fl (6.2-12.0); Platelet Count 386 K/mm3 (150-450); RBC Distribution Width CV 16.6 % (11.6-14.6); RBC Distribution Width SD 51.8 fl (35.1-43.9); Red Blood Count 3.33 M/mm3 (4.6-6.2); White Blood Count 8.8 K/mm3 (4.4-11.0)
[2017-09-20 06:09] LABS: International Normalized Ratio 1.2; Prothrombin Time (Protime)PT. 15.6 SECONDS (11.7-14.9)
[2017-09-20 06:21] LABS: Scan Indicated on CBC? Y/N NO
[2017-09-20] MEDS: Acetaminophen 500 MG Tablet 1000 MG PO ×3 (06:34→21:37)
[2017-09-20 06:39] LABS: Anion Gap 6 (5-15); BUN 9 mg/dL (7-18); BUN/Creat Ratio 14.3 RATIO (10-20); Calcium,Total 8.7 mg/dL (8.5-10.1); Chloride 104 mmol/L (98-107); Creatinine, Serum 0.63 mg/dL (0.70-1.30); EST Glomerular Filtration Rate 140 mL/min (>60); Est Glom Filt Rate - Afr Amer 170 mL/min (>60); Estimated Creatinine Clearance 152.22 ml/min; Glucose 89 mg/dL (74-106); Potassium 4.3 mmol/L (3.5-5.1); Sodium Level 143 mmol/L (136-145)
[2017-09-20] MEDS: 0.9% NaCl Peripheral Flush Adult/Peds IV ×4 (06:42→21:53)
[2017-09-20] MEDS: traMADol 50 MG Tablet PO ×2 (06:42→13:27)
--- NOTE | 2017-09-20 07:59 | PCM.PN.ORT ---
Subjective: Patient sitting at bedside, pain well-managed. Denies chest pain, shortness breath, calf pain, nausea vomiting. No other complaints Objective: Dressing was clean dry intact. Drain was removed, patient tolerated very well. Approximate 50 cc of fluid were noted in chamber. Patient's vitals and labs were all within normal limits. Vision is afebrile, neurovascular is otherwise intact. Negative signs and symptoms of DVT. The right knee thigh and calf are nonerythematous patient still has significant stiffness with any attempted flexion with flexion no greater than approximately 55? - Physical Exam General: Alert, Oriented x3, Cooperative HEENT: PERRLA Oral: Moist Mucosa Neurological: Cranial nerves II-XII grossly intact Psych/Mental Status: Normal Affect, Alert and oriented to time, place, person, mood and affect Vital Signs Temp Pulse Resp BP Pulse Ox 98 F 79 18 103/57 L 98 09/20/17 03:50 09/20/17 03:56 09/20/17 03:50 09/20/17 03:50 09/20/17 03:50 Oxygen Delivery Method Room Air Weight: 83.603 kg Body Mass Index (BMI) 23.6 Intake and Output for Last 24 Hours 09/18/17 09/19/17 09/20/17 23:59 23:59 23:59 Intake Total 4618 / 4618 2421 / 2421 Output Total 2750 / 2750 2054 / 2054 Balance 1868 / 1868 366 / 366 Laboratory Tests Past 24 Hrs 09/20/17 09/20/17 09/20/17 05:35 05:35 05:35 WBC 8.8 RBC 3.33 L Hgb 8.9 L Hct 29.3 L MCV 88.0 MCH 26.7 L MCHC 30.4 L RDW 16.6 H RDW Differential 51.8 H Plt Count 386 MPV 8.8 PT 15.6 H INR 1.2 Sodium 143 Potassium 4.3 Chloride 104 Carbon Dioxide 33.0 H Anion Gap 6 BUN 9 Creatinine 0.63 L Estim Creat Clear Calc 152.22 Est GFR (MDRD) Af Amer 170 Est GFR (MDRD) Non-Af 140 BUN/Creatinine Ratio 14.3 Glucose 89 Calcium 8.7 Medical Necessity - Tobacco Use Smoking Status: Never smoker Assessment/Plan All Active Problems Atrial fibrillation with RVR (Acute) Elevated LFTs (Acute) Acute cystitis (Acute) Severe sepsis (Acute) Anemia (Acute) Status post total right knee replacement (Acute) Status post incision,irrigated ,and debridement of right total knee periprosthetic infection with poly-exchange Plan 1. Continue all pain medications as prescribed 2. Begin physical therapy today ambulate weight-bear as tolerated 3. Continue bridging with Lovenox, restart Coumadin 4. Pending evaluation by I&D 5. Possible discharge home after evaluation by ID and antibiotic plan in place.
[2017-09-20] MEDS: Senna/Docusate Sodium 1 Tablet 2 TABLET PO ×2 (09:44→21:37)
[2017-09-20 09:50] VITALS: BP 104/66; PULSE 72; RESP 16; TEMP 36.6; O2SAT 99
[2017-09-20] MEDS: Enoxaparin 80 MG/0.8 ML Syringe SC ×2 (10:00→22:15)
--- NOTE | 2017-09-20 10:38 | PCM.PN.HOSP ---
Subjective: Patient seen and examined. Today's postop day 1. He has no complaints and feels well. Pain is well controlled. He was working with physical therapy at time of review. He denied any fever or chills, any cough or chest pain, shortness of breath, abdominal pain, any diarrhea vomiting. Review of systems otherwise negative. Vitals/I&O's: Vital Signs Temp Pulse Resp BP Pulse Ox 97.8 F 72 16 104/66 99 09/20/17 09:50 09/20/17 09:50 09/20/17 09:50 09/20/17 09:50 09/20/17 09:50 Oxygen Delivery Method Room Air Weight: 184 lb 5 oz Body Mass Index (BMI) 23.6 Intake and Output for Last 24 Hours 09/18/17 09/19/17 09/20/17 23:59 23:59 23:59 Intake Total 4618 / 4618 2421 / 2421 Output Total 2750 / 2750 5 / 2054 Balance 1868 / 1868 366 / 366 General: Alert, Oriented x3, Cooperative, No apparent distress HEENT: Atraumatic, PERRLA, EOMI, Normocephalic Oral: Moist Mucosa Neck: Supple, No JVD, Negative Carotid Bruits Lungs: Clear to auscultation, Normal air movement, No rhonchi, No wheeze, No rales Cardiovascular: Regular rate, Regular Rhythm, Normal S1, Normal S2, No murmurs Abdomen: Bowel Sounds Present, Soft, Non Tender, Non-Distended, No Hepato-splenomegaly Extremities: No edema, Capillary Refill Less than 3 Seconds, - - RLE knee bandaged Skin: No rashes, No breakdown Musculoskeletal: No Tenderness to Palpation of Joints or Extremities Lymphatic: No Cervical, Supraclavicular, or Inguinal Adenopathy Neurological: Cranial nerves II-XII grossly intact Psych/Mental Status: Normal Affect, Appropriate, Alert and oriented to time, place, person, mood and affect Microbiology Past 72 Hours 09/19/17 11:42 Tissue - Knee Gram Stain - Final 09/19/17 11:42 Tissue - Knee Wound Culture - Preliminary No growth-Final to follow 09/19/17 11:42 Tissue - Knee Gram Stain - Final 09/19/17 11:42 Tissue - Knee Wound Culture - Preliminary No growth-Final to follow 09/19/17 11:42 Tissue - Knee Gram Stain - Final 09/19/17 11:42 Tissue - Knee Wound Culture - Preliminary No growth-Final to follow Laboratory Results 09/20/17 05:35: WBC 8.8, RBC 3.33 L, Hgb 8.9 L, Hct 29.3 L, MCV 88.0, MCH 26.7 L, MCHC 30.4 L, RDW 16.6 H, RDW Differential 51.8 H, Plt Count 386, MPV 8.8 09/20/17 05:35: Sodium 143, Potassium 4.3, Chloride 104, Carbon Dioxide 33.0 H, Anion Gap 6, BUN 9, Creatinine 0.63 L, Estim Creat Clear Calc 152.22, Est GFR (MDRD) Af Amer 170, Est GFR (MDRD) Non-Af 140, BUN/Creatinine Ratio 14.3, Glucose 89, Calcium 8.7 09/20/17 05:35: PT 15.6 H, INR 1.2 Current Medications Acetaminophen (Tylenol) 1,000 mg PO Q8 [facility] Last Admin: 09/20/17 06:34 Dose: 1,000 mg Enoxaparin Sodium (Lovenox) 80 mg SC BID [facility] Last Admin: 09/20/17 10:00 Dose: 80 mg Vancomycin IV Pharmacy to Dose (1 ea/ Sodium Chloride) 500 mls @ 250 mls/hr IV X1 PRN; Protocol PRN Reason: Rx to Dose Ceftriaxone Sodium 2 gm/ (Dextrose) 50 mls @ 100 mls/hr IV Q24 [facility] Ketorolac Tromethamine (Toradol) 15 mg IV Q6H PRN PRN PRN Reason: MILD-MOD PAIN (1-5/10) Last Admin: 09/20/17 00:19 Dose: 15 mg Nutritional Formula (Lactose Free) (Ensure Enlive) 120 ml PO 4X/DAY [facility] Last Admin: 09/20/17 09:44 Dose: 120 ml Ondansetron HCl (Zofran) 4 mg IV Q8H PRN PRN PRN Reason: NAUSEA Oxycodone HCl (Oxyir) 5 - 10 mg PO Q4H PRN PRN PRN Reason: MOD-SEVERE PAIN (4-10/10) Promethazine HCl (Phenergan) 12.5 mg IM Q6H PRN PRN; Protocol PRN Reason: NAUSEA/VOMITING Senna/Docusate Sodium (Senokot-S, Adrienne-Colace) 2 tablet PO BID [facility] Last Admin: 09/20/17 09:44 Dose: 2 tablet Sodium Chloride () 5 - 30 ml IV UD PRN PRN Reason: SALINE FLUSH Last Admin: 09/20/17 06:42 Dose: 10 ml Tramadol HCl (Ultram) 50 mg PO Q6H PRN PRN PRN Reason: MODERATE PAIN (4-5/10) Last Admin: 09/20/17 06:42 Dose: 50 mg Warfarin Sodium (Coumadin (Pbkc)) 2.5 mg PO DAILY@1700 [facility] Medical Necessity - Tobacco Use Smoking Status: Never smoker Assessment/Plan All Active Problems Atrial fibrillation with RVR (Acute) Elevated LFTs (Acute) Acute cystitis (Acute) Severe sepsis (Acute) Anemia (Acute) Status post total right knee replacement (Acute) 1.Periprosthetic right knee infection s/p debridement of knee arthroplasty with polyethylene exchange today is POD 1. has no complaints. Pain is well controlled PT/OT on board on ketorolac and morphine for pain. management as per ortho 2. Factor V Leiden deficiency with history of DVT and PE (2004 and 2005 respectively) on coumadin for care home anticoagulation; was bridged with lovenox for this surgery will resume coumadin 2.5mg daily today; INR today is 1.2; continue lovenox for bridging 3. ANemia: Hb is 8.9 today; baseline ~ 11. due to possible blood loss from surgery. Currently stable. 'Will monitor DVT prophylaxis: currently PCDs and lovenox. Jeremias resume coumadin today, and monitor INR. This note was generated with [employer] dictation software. It may contain incorrect words, spelling, and punctuation that were not noted in checking the note before signing. Code Visit Inpatient E&M: 95819 Subs Hosp L2
--- NOTE | 2017-09-20 10:41 | PCM.HP.ID ---
Problem List (1) 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 knee joint Status: Acute Reason for Consult: pji Consulted by: Dr. Vaz History of Present Illness: The patient is a 56 year old M who had R TKA by Dr. Vaz on 08/15/17 due to severe OA. Did well until the past week when he noticed stiffness in the knee. Developed some medial redness, minimal pain, no fever or chills. Had aspiration done 09/15 which showed purulence. Taken to OR 09/19 for I&D and poly exchange; anterior thigh abscess was drained. Feeling better, given perioperative vanc/cefazolin. No h/o staph infection or skin boils/abscesses. Full ROS performed and neg except as noted above. - Medical History Past Medical History (Chronic Problems): Chronic Problems History of pulmonary embolism (Chronic) History of DVT (deep vein thrombosis) (Chronic) Allergies/Adverse Reactions: Allergies Sulfa (Sulfonamide Antibiotics) Allergy (Verified 08/24/17 12:40) Unknown Home Medications: Ambulatory Orders Medication Instructions Recorded Acetaminophen [Tylenol] 1,000 mg PO BID 08/24/17 Ferrous Sulfate [Iron] 325 mg PO BID #60 tab 08/26/17 Docusate Sodium [Colace] 100 mg PO BID 09/18/17 - Social History SMOKING STATUS:: Never smoker Vital Signs Temp Pulse Resp BP Pulse Ox 97.8 F 72 16 104/66 99 09/20/17 09:50 09/20/17 09:50 09/20/17 09:50 09/20/17 09:50 09/20/17 09:50 Oxygen Delivery Method Room Air Weight: 83.603 kg Body Mass Index (BMI) 23.6 Microbiology Past 72 Hours 09/19/17 11:42 Gram Stain - Final Tissue - Knee Wound Culture - Preliminary No growth-Final to follow 09/19/17 11:42 Gram Stain - Final Tissue - Knee Wound Culture - Preliminary No growth-Final to follow 09/19/17 11:42 Gram Stain - Final Tissue - Knee Wound Culture - Preliminary No growth-Final to follow Laboratory Tests Past 24 Hrs 09/20/17 09/20/17 09/20/17 05:35 05:35 05:35 WBC 8.8 RBC 3.33 L Hgb 8.9 L Hct 29.3 L MCV 88.0 MCH 26.7 L MCHC 30.4 L RDW 16.6 H RDW Differential 51.8 H Plt Count 386 MPV 8.8 PT 15.6 H INR 1.2 Sodium 143 Potassium 4.3 Chloride 104 Carbon Dioxide 33.0 H Anion Gap 6 BUN 9 Creatinine 0.63 L Estim Creat Clear Calc 152.22 Est GFR (MDRD) Af Amer 170 Est GFR (MDRD) Non-Af 140 BUN/Creatinine Ratio 14.3 Glucose 89 Calcium 8.7 - Other Studies Radiology: [] reviewed Other Studies: [] Route of nutrition/ use of supplements: [] Nutritional Intake: [] IV Site: [] [place] Catheter: [] - Physical Exam General: Alert, Oriented x3, Cooperative, No apparent distress HEENT: Atraumatic, PERRLA, EOMI Neck: Supple, No Nodes Lungs: Clear to auscultation, Normal air movement Cardiovascular: Regular rate, Regular Rhythm, No murmurs Abdomen: Soft, Non Tender, Non-Distended Extremities: - - RLE wrapped Skin: No rashes IV Site: Peripheral, without redness Neurological: Cranial nerves II-XII grossly intact - Assessment/Plan Antibiotics: [] Assessment/Plan: [] R knee PJI with thigh abscess - s/p TKA 08/15/[address] Vaz. Aspiration 09/15 with 28k wbc and 98%N. Taken back to OR 09/19 for I&D, poly exchange and abscess drainage. Fluid and surg cx pending. Plan is for 6 weeks iv abx. Will order picc. Cover with vanc and ceftriaxone for now. Weekly bmp, cbc, esr, and vanc trough while on iv abx. Stop date for iv abx will be 10/31/17 and then long course of po abx. Thank you, will follow, wrote rx for labs and abx pending further cx data. D/w wrapper caser.
--- NOTE | 2017-09-20 10:42 | PN_ITS ---
Subjective: Patient seen and examined. Today's postop day 1. He has no complaints and feels well. Pain is well controlled. He was working with physical therapy at time of review. He denied any fever or chills, any cough or chest pain, shortness of breath, abdominal pain, any diarrhea vomiting. Review of systems otherwise negative. Vitals/I&O's: Vital Signs Temp Pulse Resp BP Pulse Ox 97.8 F 72 16 104/66 99 09/20/17 09:50 09/20/17 09:50 09/20/17 09:50 09/20/17 09:50 09/20/17 09:50 Oxygen Delivery Method Room Air Weight: 184 lb 5 oz Body Mass Index (BMI) 23.6 Intake and Output for Last 24 Hours 09/18/17 09/19/17 09/20/17 23:59 23:59 23:59 Intake Total 4618 / 4618 2421 / 2421 Output Total 2750 / 2750 5 / 2054 Balance 1868 / 1868 366 / 366 General: Alert, Oriented x3, Cooperative, No apparent distress HEENT: Atraumatic, PERRLA, EOMI, Normocephalic Oral: Moist Mucosa Neck: Supple, No JVD, Negative Carotid Bruits Lungs: Clear to auscultation, Normal air movement, No rhonchi, No wheeze, No rales Cardiovascular: Regular rate, Regular Rhythm, Normal S1, Normal S2, No murmurs Abdomen: Bowel Sounds Present, Soft, Non Tender, Non-Distended, No Hepato- splenomegaly Extremities: No edema, Capillary Refill Less than 3 Seconds, - - RLE knee bandaged Skin: No rashes, No breakdown Musculoskeletal: No Tenderness to Palpation of Joints or Extremities Lymphatic: No Cervical, Supraclavicular, or Inguinal Adenopathy Neurological: Cranial nerves II-XII grossly intact Psych/Mental Status: Normal Affect, Appropriate, Alert and oriented to time, place, person, mood and affect Microbiology Past 72 Hours 09/19/17 11:42 Tissue - Knee Gram Stain - Final 09/19/17 11:42 Tissue - Knee Wound Culture - Preliminary No growth-Final to follow 09/19/17 11:42 Tissue - Knee Gram Stain - Final 09/19/17 11:42 Tissue - Knee Wound Culture - Preliminary No growth-Final to follow 09/19/17 11:42 Tissue - Knee Gram Stain - Final 09/19/17 11:42 Tissue - Knee Wound Culture - Preliminary No growth-Final to follow Laboratory Results 09/20/17 05:35: WBC 8.8, RBC 3.33 L, Hgb 8.9 L, Hct 29.3 L, MCV 88.0, MCH 26.7 L , MCHC 30.4 L, RDW 16.6 H, RDW Differential 51.8 H, Plt Count 386, MPV 8.8 09/20/17 05:35: Sodium 143, Potassium 4.3, Chloride 104, Carbon Dioxide 33.0 H, Anion Gap 6, BUN 9, Creatinine 0.63 L, Estim Creat Clear Calc 152.22, Est GFR ( MDRD) Af Amer 170, Est GFR (MDRD) Non-Af 140, BUN/Creatinine Ratio 14.3, Glucose 89, Calcium 8.7 09/20/17 05:35: PT 15.6 H, INR 1.2 Current Medications Acetaminophen (Tylenol) 1,000 mg PO Q8 [facility] Last Admin: 09/20/17 06:34 Dose: 1,000 mg Enoxaparin Sodium (Lovenox) 80 mg SC BID [facility] Last Admin: 09/20/17 10:00 Dose: 80 mg Vancomycin IV Pharmacy to Dose (1 ea/ Sodium Chloride) 500 mls @ 250 mls/hr IV X1 PRN; Protocol PRN Reason: Rx to Dose Ceftriaxone Sodium 2 gm/ (Dextrose) 50 mls @ 100 mls/hr IV Q24 [facility] Ketorolac Tromethamine (Toradol) 15 mg IV Q6H PRN PRN PRN Reason: MILD-MOD PAIN (1-5/10) Last Admin: 09/20/17 00:19 Dose: 15 mg Nutritional Formula (Lactose Free) (Ensure Enlive) 120 ml PO 4X/DAY [facility] Last Admin: 09/20/17 09:44 Dose: 120 ml Ondansetron HCl (Zofran) 4 mg IV Q8H PRN PRN PRN Reason: NAUSEA Oxycodone HCl (Oxyir) 5 - 10 mg PO Q4H PRN PRN PRN Reason: MOD-SEVERE PAIN (4-10/10) Promethazine HCl (Phenergan) 12.5 mg IM Q6H PRN PRN; Protocol PRN Reason: NAUSEA/VOMITING Senna/Docusate Sodium (Senokot-S, Adrienne-Colace) 2 tablet PO BID [facility] Last Admin: 09/20/17 09:44 Dose: 2 tablet Sodium Chloride () 5 - 30 ml IV UD PRN PRN Reason: SALINE FLUSH Last Admin: 09/20/17 06:42 Dose: 10 ml Tramadol HCl (Ultram) 50 mg PO Q6H PRN PRN PRN Reason: MODERATE PAIN (4-5/10) Last Admin: 09/20/17 06:42 Dose: 50 mg Warfarin Sodium (Coumadin (Pbkc)) 2.5 mg PO DAILY@1700 [facility] Medical Necessity - Tobacco Use Smoking Status: Never smoker Assessment/Plan All Active Problems Atrial fibrillation with RVR (Acute) Elevated LFTs (Acute) Acute cystitis (Acute) Severe sepsis (Acute) Anemia (Acute) Status post total right knee replacement (Acute) 1.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 * has no complaints. Pain is well controlled * PT/OT on board * on ketorolac and morphine for pain. * management as per ortho * 2. Factor V Leiden deficiency with history of DVT and PE (2004 and 2005 respectively) * on coumadin for correction anticoagulation; was bridged with lovenox for this surgery * will resume coumadin 2.5mg daily today; INR today is 1.2; continue lovenox for bridging * 3. ANemia: Hb is 8.9 today; baseline ~ 11. due to possible blood loss from surgery. Currently stable. 'Will monitor DVT prophylaxis: currently PCDs and lovenox. Jeremias resume coumadin today, and monitor INR. This note was generated with [employer] dictation software. It may contain incorrect words, spelling, and punctuation that were not noted in checking the note before signing. Code Visit Inpatient E&M: 08094 Subs Hosp L2
--- NOTE | 2017-09-20 10:49 | CASEMGMT ---
Readmission Note: Patient lives in a two story home with first floor setup. He resides with his , Aby Peck. No change in providers. Preferred Pharmacy is [facility] in [place]. Patient denies having advance directives and declines assistance at this time. No oxygen at home. Patient has a cane, crutches and walker at home. He had been in outpatient therapy at [facility] in [place]. He was told he may call to schedule further appointments if found to be appropriate for outpatient therapy rather than home health therapy. DC Plan: Patient is likely to need IV antibiotics at home. Cultures pending at this time. CM to follow for [facility] needs. Patient states he does not have a preferred company to provided services.
--- NOTE | 2017-09-20 11:03 | PCM.RX.CS ---
Consult Pharmacy has been consulted to manage selected antiobiotic: Vancomycin Type of Consult: New start Suspected Infection: Other Prior Doses of Antibiotics Received/Current Regimen: Received 1000mg IV vancomycin on 09/19/17 at 11:43 and 1250mg early this morning 09/20/17 at 00:11. Labs: Sodium 143 mmol/L (136-145) 09/20/17 05:35 Potassium 4.3 mmol/L (3.5-5.1) 09/20/17 05:35 Chloride 104 mmol/L (98-107) 09/20/17 05:35 Carbon Dioxide 33.0 mmol/L (21.0-32.0) H 09/20/17 05:35 Anion Gap 6 (5-15) 09/20/17 05:35 BUN 9 mg/dL (7-18) 09/20/17 05:35 Creatinine 0.63 mg/dL (0.70-1.30) L 09/20/17 05:35 Est GFR (MDRD) Af Amer 170 mL/min (>60) 09/20/17 05:35 Est GFR (MDRD) Non-Af 140 mL/min (>60) 09/20/17 05:35 BUN/Creatinine Ratio 14.3 RATIO (10-20) 09/20/17 05:35 Glucose 89 mg/dL (74-106) 09/20/17 05:35 Microbiology: Microbiology 09/19/17 11:42 Tissue - Knee Gram Stain - Final 09/19/17 11:42 Tissue - Knee Wound Culture - Preliminary No growth-Final to follow 09/19/17 11:42 Tissue - Knee Gram Stain - Final 09/19/17 11:42 Tissue - Knee Wound Culture - Preliminary No growth-Final to follow 09/19/17 11:42 Tissue - Knee Gram Stain - Final 09/19/17 11:42 Tissue - Knee Wound Culture - Preliminary No growth-Final to follow Weight used for dosin.6 kg Estimated Creatinine Clearance: 152 ml/min Goal Trough: 15-20 mcg/mL Pharmacy Plan for Drug Dosing: Patient received a preop dose of 1000mg yesterday and then 1 dose of 1250mg 12 hours later. Vancomycin will now be continued at 1000mg IV q8h. Pharmacy Service will continue to monitor and adjust dosing as required. Follow-Up Labs: Trough Vancomycin Labs to be done on [date and time ordered]: 09/21/17 11:30
--- NOTE | 2017-09-20 11:26 | NURSING ---
rail operator notified of order for PICC line. Will call back with an ETA.
[2017-09-20] MEDS: Vancomycin IV 1,000 MG/200 ML BAG 200 MG IV ×2 (13:15→21:37)
--- NOTE | 2017-09-20 14:46 | CASEMGMT ---
Per Dr. Estrada, pt to be sent home on IV antibx and script obtained from him at this time. Referral faxed to I at this time. Pt states would like [facility] at this time and this RN OMAIRA spoke with Kia at [facility] and she states that they will be able to take pt at this time. Script faxed to [facility] at this time and [facility] to be updated with pt discharge date when known. Order placed for C RN at this time. Shanell GREGORIO CM
[2017-09-20 15:50] VITALS: BP 113/73; PULSE 87; RESP 16; TEMP 36.4; O2SAT 100
[2017-09-20 21:20] VITALS: BP 115/71; PULSE 82; RESP 14; TEMP 36.4; O2SAT 100
[2017-09-21 03:27] VITALS: BP 124/72; PULSE 73; RESP 16; TEMP 36.4; O2SAT 97
[2017-09-21] MEDS: Acetaminophen 500 MG Tablet 1000 MG PO ×2 (05:06→14:26)
[2017-09-21] MEDS: Vancomycin IV 1,000 MG/200 ML BAG 200 MG IV ×2 (05:06→11:55)
[2017-09-21] MEDS: 0.9% NaCl Peripheral Flush Adult/Peds IV ×3 (05:07→09:08)
[2017-09-21 05:25] LABS: Hematocrit 28.5 % (40-54); Hemoglobin 8.9 g/dl (13.0-16.5); Mean Corp Hgb Conc 31.2 g/gl (32-36); Mean Corpuscular Hgb 27.1 pg (27.0-32.0); Mean Corpuscular Volume 86.6 fL (80-94); Mean Platelet Vol. 8.9 fl (6.2-12.0); Platelet Count 400 K/mm3 (150-450); RBC Distribution Width CV 16.9 % (11.6-14.6); RBC Distribution Width SD 52.8 fl (35.1-43.9); Red Blood Count 3.29 M/mm3 (4.6-6.2); White Blood Count 10.5 K/mm3 (4.4-11.0)
[2017-09-21 05:26] LABS: Scan Indicated on CBC? Y/N NO
[2017-09-21 08:21] LABS: International Normalized Ratio 1.2
[2017-09-21 08:50] VITALS: BP 110/58; PULSE 98; RESP 16; TEMP 37.5; O2SAT 99
[2017-09-21] MEDS: Ketorolac 15 MG/ML Vial IV (09:08)
[2017-09-21] MEDS: Enoxaparin 80 MG/0.8 ML Syringe SC (09:11)
[2017-09-21] MEDS: Senna/Docusate Sodium 1 Tablet 2 TABLET PO (09:11)
[2017-09-21 09:15] VITALS: PULSE 92
--- NOTE | 2017-09-21 09:53 | CASEMGMT ---
Call to [facility] to verify referral received and to check on benefits. Per Shante, this is her referral and she is still waiting on the financials to go through. Updated her that [facility], voices understanding. This RN OMAIRA is awaiting call back from Shante with financials at this time. Shanell GREGORIO CM
--- NOTE | 2017-09-21 11:55 | PCM.PN.ID ---
Patient Problems: Active and Suspected Problems 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 knee joint (Acute) Subjective: Feeling fine, no fever, no n/v/d. - Physical Exam General: Alert, Cooperative, No apparent distress Lungs: Clear to auscultation, Normal air movement Cardiovascular: Regular rate, Regular Rhythm Abdomen: Soft, Non Tender, Non-Distended Skin: No rashes Vital Signs Temp Pulse Resp BP Pulse Ox 99.5 F H 92 16 110/58 L 99 09/21/17 08:50 09/21/17 09:15 09/21/17 08:50 09/21/17 08:50 09/21/17 08:50 Oxygen Delivery Method Room Air Weight: 83.603 kg Body Mass Index (BMI) 23.6 Intake and Output for Last 24 Hours 09/19/17 09/20/17 09/21/17 23:59 23:59 23:59 Intake Total 4618 / 4618 2421 / 2421 1648 / 1648 Output Total 2750 / 2750 2055 / 2055 1800 / 1800 Balance 1868 / 1868 366 / 366 -152 / -152 Microbiology Past 72 Hours 09/19/17 11:42 Gram Stain - Final Tissue - Knee Wound Culture - Preliminary No growth-Final to follow 09/19/17 11:42 Gram Stain - Final Tissue - Knee Wound Culture - Preliminary No growth-Final to follow 09/19/17 11:42 Gram Stain - Final Tissue - Knee Wound Culture - Preliminary No growth-Final to follow Laboratory Tests Past 24 Hrs 09/21/17 09/21/17 09/21/17 05:15 08:00 11:24 WBC 10.5 RBC 3.29 L Hgb 8.9 L Hct 28.5 L MCV 86.6 MCH 27.1 MCHC 31.2 L RDW 16.9 H RDW Differential 52.8 H Plt Count 400 MPV 8.9 PT 15.0 H INR 1.2 Vancomycin Trough Pending Medical Necessity - Tobacco Use Smoking Status: Never smoker Route of nutrition/ use of supplements: [] Nutritional Intake: [] IV Site: [] [place] Catheter: [] - Assessment/Plan Antibiotics: [] Assessment/Plan: [] R knee PJI with thigh abscess - s/p TKA 08/15/[address] Vaz. Aspiration 09/15 with 28k wbc and 98%N. Taken back to OR 09/19 for I&D, poly exchange and abscess drainage. Fluid and surg cx pending. Plan is for 6 weeks iv abx. Placed picc. Cover with vanc and ceftriaxone for now. Weekly bmp, cbc, esr, and vanc trough while on iv abx. Stop date for iv abx will be 10/31/17 and then long course of po abx. Vanc trough pending. will follow, wrote rx for labs and abx pending further cx data. D/w caseworker protective services.
--- NOTE | 2017-09-21 12:11 | PCM.PN.ORT ---
Patient Problems: Active and Suspected Problems 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 knee joint (Acute) Subjective: Patient sitting at bedside. Pain well managed. Patient denies chest pain, shortness breath, calf pain, nausea vomiting. No other complaints. Patient states he is ready for discharge home. Objective: Dressing is clean dry intact. Negative signs and symptoms of DVT. Patient is lacking 5? full extension and has flexion to approximately 85?. Of the right knee patient is afebrile, and neurovascular is otherwise intact - Physical Exam General: Alert, Oriented x3, Cooperative HEENT: PERRLA Oral: Moist Mucosa Neurological: Cranial nerves II-XII grossly intact Psych/Mental Status: Normal Affect, Alert and oriented to time, place, person, mood and affect Vital Signs Temp Pulse Resp BP Pulse Ox 99.5 F H 92 16 110/58 L 99 09/21/17 08:50 09/21/17 09:15 09/21/17 08:50 09/21/17 08:50 09/21/17 08:50 Oxygen Delivery Method Room Air Weight: 83.603 kg Body Mass Index (BMI) 23.6 Intake and Output for Last 24 Hours 09/19/17 09/20/17 09/21/17 23:59 23:59 23:59 Intake Total 4618 / 4618 2421 / 2421 1648 / 1648 Output Total 2750 / 2750 2055 / 2055 1800 / 1800 Balance 1868 / 1868 366 / 366 -152 / -152 Microbiology Past 72 Hours 09/19/17 11:42 Gram Stain - Final Tissue - Knee Wound Culture - Preliminary No growth-Final to follow 09/19/17 11:42 Gram Stain - Final Tissue - Knee Wound Culture - Preliminary No growth-Final to follow 09/19/17 11:42 Gram Stain - Final Tissue - Knee Wound Culture - Preliminary No growth-Final to follow Laboratory Tests Past 24 Hrs 09/21/17 09/21/17 09/21/17 05:15 08:00 11:24 WBC 10.5 RBC 3.29 L Hgb 8.9 L Hct 28.5 L MCV 86.6 MCH 27.1 MCHC 31.2 L RDW 16.9 H RDW Differential 52.8 H Plt Count 400 MPV 8.9 PT 15.0 H INR 1.2 Vancomycin Trough Pending Medical Necessity - Tobacco Use Smoking Status: Never smoker Assessment/Plan All Active Problems 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 knee joint (Acute) Atrial fibrillation with RVR (Acute) Elevated LFTs (Acute) Acute cystitis (Acute) Severe sepsis (Acute) Anemia (Acute) Status post total right knee replacement (Acute) Status post incision,irrigated ,and debridement of right total knee periprosthetic infection with poly-exchange Plan 1. Continue all pain medications as prescribed 2. Continue physical therapy today ambulate weight-bear as tolerated 3. Continue bridging with Lovenox, restart Coumadin 4. Continue antibiotic therapy as directed by ID 5. Discharge home when home health has been approved and arranged.
--- NOTE | 2017-09-21 12:14 | CASEMGMT ---
Received call from Shante at [facility] and she states that pt's daily co-pay will be $26.00 until $619 out of pocket met and then will be paid at 100%. Mayi GREGORIO CM updated at this time and into speak with pt regarding co-pay and also preferred pharmacy for printed scripts so that CM can check Lovenox co-pay. Shanell GREGORIO CM
--- NOTE | 2017-09-21 12:21 | CASEMGMT ---
Pt's last vancomycin dose was 1000mg iv at 1155 and is pt's 2nd dose today. Call to Edin, pharmacist, to verify when next vancomycin home dose 1.25gm every 12hours should be given. He states that they are waiting on the Vanc trough, which was drawn about 1 hour ago. He states that he will call this RN CM back when obtained and with next dose time. SStgustavo GREGORIO CM
[2017-09-21 12:41] LABS: Vancomycin, Trough Level 19.1 ug/mL (5.0-15.0)
--- NOTE | 2017-09-21 12:43 | CASEMGMT ---
Addendum entered by Ayah Andrews 09/21/17 12:51: Received a call back from Shante at [facility] and she states that meds/supplies can be delivered today and she just needs to know when they need to be delivered by for next dose. This RN CM will call back when next dose time obtained. Shanell GREGORIO CM Original Note: Message left with Shante at [facility] to notify her that pt will be discharged today and to verify that meds/supplies can be obtained today. This RN CM asked for Shante to call this RN CM back regarding same. Shanell GREGORIO CM
--- NOTE | 2017-09-21 13:05 | PCM.PROGNOTE ---
<Kenji Calix - Last Filed: 09/21/17 13:05> Patient Problems: Active and Suspected Problems 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 knee joint (Acute) Subjective: No complaints. Pt has done lovenox bid at home before and does not think he will have any issues doing it again. No fevers or chills. No SOB/cough. No N/V. - Physical Exam General: Alert, Oriented x3, Cooperative HEENT: Atraumatic, PERRLA, EOMI, Normocephalic Neck: Supple, No JVD, Negative Carotid Bruits Lungs: Clear to auscultation, Normal air movement Cardiovascular: Regular rate, No murmurs Abdomen: Bowel Sounds Present, Soft, Non Tender Extremities: No edema, Capillary Refill Less than 3 Seconds Skin: No rashes, No breakdown Musculoskeletal: No Tenderness to Palpation of Joints or Extremities Neurological: Cranial nerves II-XII grossly intact Psych/Mental Status: Normal Affect, Appropriate Vital Signs Temp Pulse Resp BP Pulse Ox 99.5 F H 92 16 110/58 L 99 09/21/17 08:50 09/21/17 09:15 09/21/17 08:50 09/21/17 08:50 09/21/17 08:50 Oxygen Delivery Method Room Air Weight: 184 lb 5 oz Body Mass Index (BMI) 23.6 Intake and Output for Last 24 Hours 09/19/17 09/20/17 09/21/17 23:59 23:59 23:59 Intake Total 4618 / 4618 2421 / 2421 1648 / 1648 Output Total 2750 / 2750 2055 / 2055 1800 / 1800 Balance 1868 / 1868 366 / 366 -152 / -152 Microbiology Past 72 Hours 09/19/17 11:42 Gram Stain - Final Tissue - Knee Wound Culture - Preliminary No growth-Final to follow 09/19/17 11:42 Gram Stain - Final Tissue - Knee Wound Culture - Preliminary No growth-Final to follow 09/19/17 11:42 Gram Stain - Final Tissue - Knee Wound Culture - Preliminary No growth-Final to follow Laboratory Tests Past 24 Hrs 09/21/17 09/21/17 09/21/17 05:15 08:00 11:24 WBC 10.5 RBC 3.29 L Hgb 8.9 L Hct 28.5 L MCV 86.6 MCH 27.1 MCHC 31.2 L RDW 16.9 H RDW Differential 52.8 H Plt Count 400 MPV 8.9 PT 15.0 H INR 1.2 Vancomycin Trough 19.1 H Medical Necessity - Tobacco Use Smoking Status: Never smoker Assessment/Plan All Active Problems 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 knee joint (Acute) Atrial fibrillation with RVR (Acute) Elevated LFTs (Acute) Acute cystitis (Acute) Severe sepsis (Acute) Anemia (Acute) Status post total right knee replacement (Acute) 1. Periprosthetic right knee infection s/p debridement - to complete outpatient Abx per ID with 6 weeks of vanc and rocephin. PICC line in place 2. Factor V leiden - hx DVT PE. He will continue bridging at home. 5 mg Coumadin x 3 doses. check INR 2 days. back to 2.5 mg PO qd after that. Further care to be directed by PCP. I sent 5 days of lovenox 1mg/kg BID to the pharmacy for approval by his insurance. More can be ordered if he needs a longer bridge depending on his INR changes. 3. Anemia - stable Thank you for the opportunity to participate in the care of this patient. Kenji Calix PA-C, seen under the supervision of Dr. Mac. <Sandi Mac - Last Filed: 09/21/17 15:15> - Physical Exam Vital Signs Temp Pulse Resp BP Pulse Ox 99.5 F H 92 16 110/58 L 99 09/21/17 08:50 09/21/17 09:15 09/21/17 08:50 09/21/17 08:50 09/21/17 08:50 Oxygen Delivery Method Room Air Weight: 184 lb 5 oz Body Mass Index (BMI) 23.6 Intake and Output for Last 24 Hours 09/19/17 09/20/17 09/21/17 23:59 23:59 23:59 Intake Total 4618 / 4618 2421 / 2421 1648 / 1648 Output Total 2750 / 2750 2055 / 2055 1800 / 1800 Balance 1868 / 1868 366 / 366 -152 / -152 Microbiology Past 72 Hours 09/19/17 11:42 Gram Stain - Final Tissue - Knee Wound Culture - Preliminary No growth-Final to follow 09/19/17 11:42 Gram Stain - Final Tissue - Knee Wound Culture - Preliminary No growth-Final to follow 09/19/17 11:42 Gram Stain - Final Tissue - Knee Wound Culture - Preliminary No growth-Final to follow Laboratory Tests Past 24 Hrs 09/21/17 09/21/17 09/21/17 05:15 08:00 11:24 WBC 10.5 RBC 3.29 L Hgb 8.9 L Hct 28.5 L MCV 86.6 MCH 27.1 MCHC 31.2 L RDW 16.9 H RDW Differential 52.8 H Plt Count 400 MPV 8.9 PT 15.0 H INR 1.2 Vancomycin Trough 19.1 H Assessment/Plan Patient seen and examined. He has no complaint and feels well. Being discharged today per ortho. HE is to go on IV vancomycin and iV rocephine x 6 weeks, per ID. INR today is 1.2 today. He usually takes Coumadin 2.5 mg daily. Will give 5 mg today and is to go on bridging with therapeutic Lovenox 80 mg subcutaneous twice daily until INR is therapeutic. He is get his INR checked in 2 days and to follow-up with his primary care doctor for adjustment of his Coumadin dose. In light of his recent knee surgery, will be conservative with increasing Coumadin dose due to risk of bleeding into his knee. However he is at risk of blood clots in light of his factor V Leiden deficiency. He is to take 5 mg today and for the next 2 days. He is to get his INR checked in 2 days. He is to revert back to 2.5 mg of Coumadin daily after he completes a 3 day of 5 mg daily of Coumadin. His follow-up with his primary care doctor and Coumadin dose to be adjusted as per INR and bridging to be stopped once INR is therapeutic. Patient seen and examined prior to discharge. Agree with Kenji Calix's note and assessment and plan. Code Visit Inpatient E&M: 03409 Subs Hosp L2
--- NOTE | 2017-09-21 13:42 | PCM.RX.CS ---
Consult Pharmacy has been consulted to manage selected antiobiotic: Vancomycin Type of Consult: Follow-up Suspected Infection: Other Prior Doses of Antibiotics Received/Current Regimen: Currently on vancomycin 1000mg IV q8h and doses were given on 09/20/17 at 13:15 and 21:37 and today 09/21/17 at 05:06 and 11:55. Labs: Sodium 143 mmol/L (136-145) 09/20/17 05:35 Potassium 4.3 mmol/L (3.5-5.1) 09/20/17 05:35 Chloride 104 mmol/L (98-107) 09/20/17 05:35 Carbon Dioxide 33.0 mmol/L (21.0-32.0) H 09/20/17 05:35 Anion Gap 6 (5-15) 09/20/17 05:35 BUN 9 mg/dL (7-18) 09/20/17 05:35 Creatinine 0.63 mg/dL (0.70-1.30) L 09/20/17 05:35 Est GFR (MDRD) Af Amer 170 mL/min (>60) 09/20/17 05:35 Est GFR (MDRD) Non-Af 140 mL/min (>60) 09/20/17 05:35 BUN/Creatinine Ratio 14.3 RATIO (10-20) 09/20/17 05:35 Glucose 89 mg/dL (74-106) 09/20/17 05:35 Vancomycin Trough 19.1 ug/mL (5.0-15.0) H 09/21/17 11:24 Microbiology: Microbiology 09/19/17 11:42 Tissue - Knee Gram Stain - Final 09/19/17 11:42 Tissue - Knee Wound Culture - Preliminary No growth-Final to follow 09/19/17 11:42 Tissue - Knee Gram Stain - Final 09/19/17 11:42 Tissue - Knee Wound Culture - Preliminary No growth-Final to follow 09/19/17 11:42 Tissue - Knee Gram Stain - Final 09/19/17 11:42 Tissue - Knee Wound Culture - Preliminary No growth-Final to follow Goal Trough: 15-20 mcg/mL Pharmacy Plan for Drug Dosing: Vancomycin trough was obtained today at 11:24 and although being drawn a little early at only 6.5 hours after the previous dose, it still came back as 19.1 which was within goal range of 15-20. Plan is to continue the current dosing regimen of 1000mg IV q8h. Since patient is likely to be discharged soon, no further troughs will be scheduled at this time. Pharmacy Service will continue to monitor and adjust dosing as required.
--- NOTE | 2017-09-21 13:54 | CASEMGMT ---
JG CASTANO NOTE: Pt informed ATB'S and supplies will be $26/day, that he has $619 left on deductible, and then coverage will be 100%. Pt agreeable to this amt and proceeding with [facility] delivery. JG CASTANO also spoke with pt and daughter, Raheel, re: Lovenox. Raheel reports pt has a lot of Lovenox injections remaining and they would like to use those before purchasing additional medication. Raheel states they are 80 mg and are not /was just filled about 4 weeks ago. Lovenox Script given to pt so he can have filled if runs out of current supply. Pt and daughter both aware is to stop Lovenox injections once INR is between 2.0-3.0. Jo TUBBS RN, CM
--- NOTE | 2017-09-21 14:53 | CASEMGMT ---
This JG CASTANO received a call from Edin, pharmacist, and he states that pt's next Vancomycin dose will be due at 2000 tonight. Call to Mayi GREGORIO CM to inform and she states that [facility] is with her at this time and she will update her. Message left with Shante at [facility] to notify her of dose time and advised her to call this RN OMAIRA back with any concerns. Shanell GREGORIO CM
[2017-09-21 15:19] VITALS: BP 116/63; PULSE 96; RESP 18; TEMP 37.6; O2SAT 95
--- NOTE | 2017-09-30 08:56 | DS.PCM_ITS ---
Discharge Date and Diagnosis Date of Admission: 09/18/17 Date of Discharge: 09/21/17 - Primary Discharge Diagnosis Acute postop septic right total knee, with poly-exchange and washout - Secondary Discharge Diagnosis Chronic Problems History of pulmonary embolism (Chronic) History of DVT (deep vein thrombosis) (Chronic) Hospital Course and Treatment Operations: - - Poly-exchange, synovectomy, washout Procedures: None Summary of Care Provided: The patient is a 56 year old M [] Patient admitted with a painful postop right total knee with loss of motion patient had a poly-exchange with a synovectomy and washout for complete details of the procedure please see the dictated op note patient remained stable with his was admitted with [facility] third floor where infectious disease medicine were consulted for continued medical management and infectious disease management for complete details of their interaction please see their dictated notes pain patient orthopedically was stable upon discharge will follow-up in [address] Vaz Discharge Diet: No Restrictions Discharge Activity: May Not Drive, May Not Shower, Use Walker May shower in (days): 0 May resume sexual activity in: No Restrictions Weight Bearing Status: Weight bearing as tolerated Call your doctor if you observe: Fever of 101 or Higher, Coldness, Increased Pain, Numbness or Tingling, Change in Color, Inability to urinate, Inability to have a bowel movement, Using more than one pad per hour, Shortness of breath, Dizziness, Fainting spells, Swelling in the ankles, Chest pain, Prolonged hiccoughing, Increased palpitations (irregular heartbeat), Calf discomfort, Uncontrolled pain Change Dressing in (Days):: 7 Home Medications: Medications to take at Discharge Acetaminophen [Tylenol] 1,000 mg PO BID 08/24/17 Ferrous Sulfate [Iron] 325 mg PO BID #60 tab 08/26/17 Docusate Sodium [Colace] 100 mg PO BID 09/18/17 Enoxaparin Sodium [Lovenox] 80 mg SQ BID 5 Days #10 syringe 09/21/17 Warfarin [Coumadin] 2.5 mg PO DAILY #14 tablet 09/21/17 Warfarin [Coumadin] 5 mg PO DAILY #2 tablet 09/21/17 Following Prescrptions Were Given to Patient: Warfarin [Coumadin] 2.5 mg PO DAILY #14 tablet Warfarin [Coumadin] 5 mg PO DAILY #2 tablet Enoxaparin Sodium [Lovenox] 80 mg SQ BID 5 Days #10 syringe Primary Care Physician: Dc Glez MD [Primary Care Provider] - Please Follow Up With: Chas Vaz, DO When: 5 days Medical Necessity - Tobacco Use Smoking Status: Never smoker Meaningful Use Info Meaningful Use Diagnoses (Choose all that apply): None applicable
== END 2017-09-21 15:42 | disposition home or self-care (01) | DRG 486 ==
PROVIDERS: Internal Medicine Infectious Disease; Student in an Organized Health Care Education/Training Program; Admitting Provider Orthopaedic Surgery; Family Provider Family Medicine; PCP Family Medicine; Visit Provider Orthopaedic Surgery
PROC: 0SPC09Z Removal of Liner from Right Knee Joint, Open Approach (ICD-10-PCS; CPT 27301; principal; 2017-09-19 09:00)
DX: T84.53XA Infection and inflammatory reaction due to internal right knee prosthesis, initial encounter (principal); L02.415 Cutaneous abscess of right lower limb; D68.51 Activated protein C resistance; Z86.718 Personal history of other venous thrombosis and embolism; Z86.711 Personal history of pulmonary embolism; D64.9 Anemia, unspecified; Z79.01 Long term (current) use of anticoagulants
CPT/HCPCS: 36415; 36569; 80048; 80202; 85025; 85027; 85610; 87070; 87075; 87102; 87205; 87206; 93005; 97110; 97116; 97162; 97166; 97530; 97535; C1776; J7050; J7120; A4216; J0696; J2405

== ENCOUNTER 2017-09-26 10:04 | Outpatient (RCR) | payer OTHER, SELFPAY ==
[2017-09-26 10:22] LABS: Erythrocyte Sedimentation Rate 70 mm/hr (0-20)
[2017-09-26 10:26] LABS: Anion Gap 9 (5-15); BUN 8 mg/dL (7-18); BUN/Creat Ratio 11.4 RATIO (10-20); Calcium,Total 8.6 mg/dL (8.5-10.1); Chloride 104 mmol/L (98-107); EST Glomerular Filtration Rate 124 mL/min (>60); Est Glom Filt Rate - Afr Amer 150 mL/min (>60); Glucose 81 mg/dL (74-106); Hematocrit 29.4 % (40-54); Hemoglobin 8.7 g/dl (13.0-16.5); Mean Corp Hgb Conc 29.6 g/gl (32-36); Mean Corpuscular Hgb 25.8 pg (27.0-32.0); Mean Corpuscular Volume 87.2 fL (80-94); Mean Platelet Vol. 9.5 fl (6.2-12.0); Platelet Count 443 K/mm3 (150-450); Potassium 3.8 mmol/L (3.5-5.1); RBC Distribution Width CV 17.8 % (11.6-14.6); RBC Distribution Width SD 57.3 fl (35.1-43.9); Red Blood Count 3.37 M/mm3 (4.6-6.2); Sodium Level 143 mmol/L (136-145); White Blood Count 8.3 K/mm3 (4.4-11.0)
[2017-09-26 10:27] LABS: Vancomycin, Trough Level 9.3 ug/mL (5.0-15.0)
[2017-09-26 10:33] LABS: Scan Indicated on CBC? Y/N NO
[2017-10-04 10:55] LABS: Erythrocyte Sedimentation Rate 31 mm/hr (0-20)
[2017-10-04 10:57] LABS: Hematocrit 31.8 % (40-54); Hemoglobin 9.5 g/dl (13.0-16.5); Mean Corp Hgb Conc 29.9 g/gl (32-36); Mean Corpuscular Hgb 26.9 pg (27.0-32.0); Mean Corpuscular Volume 90.1 fL (80-94); Mean Platelet Vol. 9.7 fl (6.2-12.0); Platelet Count 305 K/mm3 (150-450); RBC Distribution Width CV 18.6 % (11.6-14.6); RBC Distribution Width SD 61.2 fl (35.1-43.9); Red Blood Count 3.53 M/mm3 (4.6-6.2); Scan Indicated on CBC? Y/N NO; White Blood Count 5.9 K/mm3 (4.4-11.0)
[2017-10-04 11:17] LABS: Anion Gap 10 (5-15); BUN 9 mg/dL (7-18); BUN/Creat Ratio 14.7 RATIO (10-20); Calcium,Total 8.1 mg/dL (8.5-10.1); Chloride 106 mmol/L (98-107); Creatinine, Serum 0.61 mg/dL (0.70-1.30); EST Glomerular Filtration Rate 144 mL/min (>60); Est Glom Filt Rate - Afr Amer 174 mL/min (>60); Glucose 84 mg/dL (74-106); Potassium 4.2 mmol/L (3.5-5.1); Sodium Level 144 mmol/L (136-145)
[2017-10-04 11:21] LABS: Vancomycin, Trough Level 10.4 ug/mL (5.0-15.0)
== END 2017-10-21 23:59 ==
LOC: HHLAB 10:04
PROVIDERS: Family Provider Family Medicine; PCP Family Medicine; Visit Provider Internal Medicine Infectious Disease
DX: M00.9 Pyogenic arthritis, unspecified (principal)
CPT/HCPCS: 80048; 80202; 85027; 85652

== ENCOUNTER → 2017-10-06 09:24 | Outpatient (CLI) | payer OTHER, SELFPAY ==
[2017-10-06 10:15] LABS: Absolute Lymphocyte Count 0.98 X10^3/ul (0.83-4.51); Absolute Neutrophil Count 3.9 X10^3/uL (2.0-7.7); Basophil# 0.07 X10^3/uL; Basophil% 1.2 % (0-1); Eosinophil# 0.44 X10^3/uL; Eosinophils% 7.3 % (0-5); Hematocrit 34.9 % (40-54); Hemoglobin 10.4 g/dl (13.0-16.5); Lymphocyte # 0.98 X10^3/ul (4.0); Lymphocyte % 16.3 % (19-41); Mean Corp Hgb Conc 29.8 g/gl (32-36); Mean Corpuscular Hgb 26.7 pg (27.0-32.0); Mean Corpuscular Volume 89.5 fL (80-94); Mean Platelet Vol. 9.8 fl (6.2-12.0); Monocyte# 0.67 X10^3/uL; Monocyte% 11.1 % (0-10); Neutrophil # 3.85 X10^3/uL (2.7-7.7); Neutrophil % 64.1 % (47-70); Platelet Count 279 K/mm3 (150-450); RBC Distribution Width CV 18.5 % (11.6-14.6); RBC Distribution Width SD 60.3 fl (35.1-43.9)
[2017-10-06 10:17] LABS: POSITIVE COUNT NO; POSITIVE DIFFERENTIAL NO; POSITIVE MORPHOLOGY NO
[2017-10-06 10:25] LABS: Erythrocyte Sedimentation Rate 75 mm/hr (0-20)
== END ==
PROVIDERS: Family Provider Family Medicine; PCP Family Medicine; Visit Provider Orthopaedic Surgery
DX: T84.53XD Infection and inflammatory reaction due to internal right knee prosthesis, subsequent encounter (principal)
CPT/HCPCS: 36415; 85025; 85652; 86140

== ENCOUNTER 2017-10-09 10:23 | Inpatient (IN) | payer OTHER, SELFPAY ==
[2017-10-09] VITALS (10 sets, daily range): BP systolic 100–107; BP diastolic 52–71; PULSE 82–105; RESP 16–18; TEMP 37.5–39.2; O2SAT 95–99; BMI 24.7; BMI 24.8
--- NOTE | 2017-10-09 10:40 | ED.VISSUMM ---
- ER Visit Summary Date of Service: 10/09/17 Chief Complaint: Fever, rash History of Present Illness: The patient is a 56 M presenting with fever, rash. He started to have a fever yesterday. At home his temperature went up to 103. He was given Tylenol at home. He has a history of right knee replacement in July per Dr. Vaz. This was followed by a UTI and infection above his right knee. He was taken to the operating room for washout of his right knee and was had found to have infection above the knee that did not involve the joint. He has a PICC line in place and is on ceftriaxone and vancomycin. This morning he noticed a rash to his entire body. He denies increasing pain, redness or swelling to his right knee. Denies other complaints. He is on Coumadin for history of PE. No other medical problems. Physical Examination: Vitals are stable. Temperature 100, heart rate 100. Alert no acute distress. HEENT exam is unremarkable. No mucous membrane involvement Neck is supple. No meningismus Lungs are clear and equal bilaterally. Heart is regular and tachycardic Abdomen is soft nontender nondistended. Extremities right knee incision clean dry and intact with mild swelling. Active full range of motion without pain. PICC line site clean dry and intact. Skin is warm and dry. Diffuse blanchable maculopapular rash No focal neurologic deficit. Remainder of exam is unremarkable. Emergency Department Course and Treatment: CBC shows a white count of 4.1, hemoglobin 10.9. Chemistries unremarkable other than sodium 135. INR 1.8. Urinalysis unremarkable. Lactic acid is normal. Blood cultures were sent. Chest x-ray shows atelectasis. EKG is sinus rate of 90 with no acute changes. Right knee x-ray shows soft tissue swelling. Patient has no increase in pain with range of motion of his right knee. Discussed with Dr. Carbajal and patient will be admitted. Disposition: Admission Impression: Febrile illness This note was generated with [employer] dictation software. It may contain incorrect words, spelling, and punctuation that were not noted in review of the chart prior to signing ED Disposition - Plan for ED Patient: Chief Complaint: Fever
[2017-10-09 11:07] LABS: Absolute Lymphocyte Count 0.32 X10^3/ul (0.83-4.51); Absolute Neutrophil Count 3.2 X10^3/uL (2.0-7.7); Basophil# 0.01 X10^3/uL; Basophil% 0.2 % (0-1); Eosinophil# 0.35 X10^3/uL; Eosinophils% 8.5 % (0-5); Hematocrit 34.3 % (40-54); Hemoglobin 10.9 g/dl (13.0-16.5); Lymphocyte # 0.32 X10^3/ul (4.0); Lymphocyte % 7.8 % (19-41); Mean Corp Hgb Conc 31.8 g/gl (32-36); Mean Corpuscular Hgb 27.6 pg (27.0-32.0); Mean Corpuscular Volume 86.8 fL (80-94); Mean Platelet Vol. 9.9 fl (6.2-12.0); Monocyte% 4.9 % (0-10); Neutrophil # 3.22 X10^3/uL (2.7-7.7); Neutrophil % 78.4 % (47-70); Platelet Count 188 K/mm3 (150-450); RBC Distribution Width CV 17.9 % (11.6-14.6); RBC Distribution Width SD 56.6 fl (35.1-43.9); Red Blood Count 3.95 M/mm3 (4.6-6.2); White Blood Count 4.1 K/mm3 (4.4-11.0)
[2017-10-09 11:08] LABS: Differential Indicated SCAN CRITERIA MET; POSITIVE COUNT NO; POSITIVE DIFFERENTIAL YES; POSITIVE MORPHOLOGY NO
[2017-10-09 11:12] LABS: International Normalized Ratio 1.8; Prothrombin Time (Protime)PT. 20.6 SECONDS (11.7-14.9)
[2017-10-09 11:35] LABS: Anion Gap 5 (5-15); BUN 11 mg/dL (7-18); BUN/Creat Ratio 11.2 RATIO (10-20); Calcium,Total 8.3 mg/dL (8.5-10.1); Chloride 101 mmol/L (98-107); Creatinine, Serum 0.98 mg/dL (0.70-1.30); EST Glomerular Filtration Rate 83 mL/min (>60); Est Glom Filt Rate - Afr Amer 101 mL/min (>60); Estimated Creatinine Clearance 97.86 ml/min; Glucose 105 mg/dL (74-106); Sodium Level 135 mmol/L (136-145)
[2017-10-09 11:38] LABS: Lactic Acid 1.1 mmol/L (0.4-2.0)
[2017-10-09 12:49] LABS: Bacteria 0 SEEN /hpf (None Seen); Mucous, Urine 0 SEEN /hpf (<or=2+); Red Blood Cells-Urine 0 SEEN /hpf (0-5)
[2017-10-09 12:50] LABS: Color, Urine Yellow (Yellow); Glucose, Dipstick Normal (Normal); Ketone-Dipstick Negative (Negative); Leukocyte Esterase-Dipstick 25 /ul (Negative); Nitrite-Dipstick Negative (Negative); Occult Blood-Urine 25 /ul (Negative); Protein-Dipstick 30 mg/dl (Negative); Urine Bilirubin Dipstick Negative (Negative); Urine Clarity Sl. Cloudy (Clear); Urine Urobilinogen Normal (Normal)
[2017-10-09 12:57] LABS: Squamous Epithelial Cells - UA 0-5 SEEN /hpf (0-5)
[2017-10-09 12:58] LABS: White Blood Cells 0-5 SEEN /hpf (0-5)
--- NOTE | 2017-10-09 14:25 | PCM.HP.STD ---
Problem List (1) Fever with exanthematous rash Status: Acute (2) Anemia Status: Chronic (3) Elevated LFTs Status: Chronic (4) Status post total right knee replacement Status: Chronic (5) History of DVT (deep vein thrombosis) Status: Chronic (6) History of pulmonary embolism Status: Chronic History of Present Illness Date of Admission: 10/09/17 Chief Complaint: Feverwith rash for 1 day The patient is a 56 year old M with history of right TKR in July by Dr. Vaz which was complicated by right knee infection status post washout and found to have infectious [id number] but did not involve the joint and then Pseudomonas UTI for which she was admitted in August 2017 came to ER for fever with rash for 1 day. As per the patient, his temperature at home was 103 Fahrenheit but in ER, temperature 100 Fahrenheit, 100.6, heart rate 9200/min, no hypotension, no tachypnea or hypoxia. WBC count is 4.1 thousand. INR 1.8 Patient has an erythematous rash mainly over trunk, both front and back and neck and little bit on thighs but his right operated knee does not have increased swelling or pain but is doing good with crutches. Lactic acid normal. UA negative [] Past Medical History Past Medical History (Chronic Problems): Chronic Problems Elevated LFTs (Chronic) Anemia (Chronic) Status post total right knee replacement (Chronic) History of pulmonary embolism (Chronic) History of DVT (deep vein thrombosis) (Chronic) Allergies Sulfa (Sulfonamide Antibiotics) Allergy (Verified 10/09/17 10:25) Unknown Home Medications: Ambulatory Orders Medication Instructions Recorded Acetaminophen [Tylenol] 1,000 mg PO PRN PRN 08/24/17 Ferrous Sulfate [Iron] 325 mg PO BID #60 tab 08/26/17 Docusate Sodium [Colace] 100 mg PO BID 09/18/17 Ceftriaxone 10/09/17 Vancomycin 10/09/17 Warfarin [Coumadin] 8 mg PO DAILY 10/09/17 Surgical History: total knee arthroplasty Psychiatric History: No pertinent psych hx Smoking Status: Never smoker - *Family History Maternal History Items: No pertinent history Paternal History Items: No pertinent history Review of Systems Constitutional: Reports: Chills, Fever, Malaise, Weakness HEENT: Denies: Head Aches, Sinus Congestion, Sinus Drainage Cardiovascular: Denies: Chest Pain, Palpitations Respiratory: Denies: Cough, Shortness of breath at rest, Sputum production Gastrointestinal: Denies: Abdominal Pain, Nausea, Vomiting Genitourinary: Denies: Dysuria Musculoskeletal: Reports: Joint stiffness, Joint swelling - Mild right knee swelling but no increased tenderness.. Denies: Joint Pain, Joint Tenderness Skin: Denies: Rash, Wounds Neurological: Denies: Numbness, Tingling, Focal weakness Psychiatric: Denies: Anxiety, Depression, Homicidal Ideations, Suicidal Ideations Hematologic/ Lymphatic: Denies: Easy Bruising, Easy Bleeding VTE Information - Inpt Only VTE Present on Admission: No VTE Mechan Device Prophylaxis: SCD's VTE Pharm Prophylaxis ordered?: Yes Patient Problems: Active and Suspected Problems Fever with exanthematous rash (Acute) - Physical Exam General: Alert, Oriented x3, Cooperative HEENT: Atraumatic, PERRLA, EOMI, Normocephalic Neck: Supple, No JVD, Negative Carotid Bruits Lungs: Clear to auscultation, Normal air movement, No rhonchi, No wheeze Cardiovascular: Regular rate, Regular Rhythm, Normal S1, Normal S2, No murmurs Abdomen: Bowel Sounds Present, Soft, Non Tender Extremities: No edema, Capillary Refill Less than 3 Seconds, Edema Skin: Rash Present - Diffuse erythematous maculopapular rash over trunk, front and back, back of neck and sparsely on the upper thighs. Musculoskeletal: No Tenderness to Palpation of Joints or Extremities, Arthritic Changes, - - Range of motion of right knee still about 60? Neurological: Cranial nerves II-XII grossly intact Psych/Mental Status: Normal Affect, Appropriate Vital Signs Temp Pulse Resp BP Pulse Ox 100.6 F H 95 18 102/60 95 10/09/17 14:17 10/09/17 14:17 10/09/17 14:17 10/09/17 14:17 10/09/17 14:17 Oxygen Delivery Method Room Air Weight: 193 lb Body Mass Index (BMI) 24.7 Assessment/Plan All Active Problems Fever with exanthematous rash (Acute) 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 knee joint (Resolved) Atrial fibrillation with RVR (Resolved) Acute cystitis (Resolved) Severe sepsis (Resolved) The patient is a 56 year old M with history of right TKR in July by Dr. Vaz which was complicated by right knee infection status post washout and found to have infectious [id number]-[id number] but did not involve the joint and then Pseudomonas UTI for which she was admitted in August 2017 came to ER for fever with rash for 1 day. As per the patient, his temperature at home was 103 Fahrenheit but in ER, temperature 100 Fahrenheit, 100.6, heart rate 9200/min, no hypotension, no tachypnea or hypoxia. WBC count is 4.1 thousand. INR 1.8 Patient has an erythematous rash mainly over trunk, both front and back and neck and little bit on thighs but his right operated knee does not have increased swelling or pain but is doing good with crutches. Lactic acid normal. UA negative 1. Fever with diffuse maculopapular rash, suspicion of drug fever/viral exanthem: Patient is being admitted on regular MedSurg floor. Discussed with ID Dr. Estrada and he advised to check vancomycin level. Blood cultures ?2 have been drawn. ESR and CRP are ordered. At home, patient is on ceftriaxone and vancomycin at week 3/ total 6 week. Hold antibiotics for now as the patient already had antibiotics in the morning. Monitor the rash. IV Solu-Medrol and Benadryl ordered. IV Pepcid ordered 2. Right TKR complicated with postoperative anemia, status post wash and recent history of Pseudomonas UTI. I do not see any appreciable change in x-ray as compared to previous x-ray in August 2017. Patient does not complain of pain and swelling although it has been better for last 3 weeks. 3. History of arrhythmia, last time paroxysmal A. fib probably prescribed by severe sepsis: In ED, EKG shows normal sinus rhythm 4. History of DVT/PE: INR is 1.8. On Coumadin. One dose of therapeutic Lovenox given. Coumadin 8 mg now and then 5 mg daily from tomorrow a.m. Daily INR and adjust her dose of Coumadin accordingly. 5. DVT prophylaxis: As mentioned above: Total time spent spent in [id number] encounter with patient, H&P, review of labs and imaging and discussion with workday consultant Dr. Estrada and review of plan of management with patient and his : 50 minutes. Plan of management discussed with the patient, patient daughter who is the nurse and his . Code Visit Inpatient E&M: 54900 Init Hosp L3
--- NOTE | 2017-10-09 14:29 | HP.PCM_ITS ---
Problem List (1) Fever with exanthematous rash Status: Acute (2) Anemia Status: Chronic (3) Elevated LFTs Status: Chronic (4) Status post total right knee replacement Status: Chronic (5) History of DVT (deep vein thrombosis) Status: Chronic (6) History of pulmonary embolism Status: Chronic History of Present Illness Date of Admission: 10/09/17 Chief Complaint: Fever?with rash for 1 day The patient is a 56 year old M with history of right TKR in July by Dr. Vaz which was complicated by right knee infection status post washout and found to have infectious [id number]-krj-jcyh but did not involve the joint and then Pseudomonas UTI for which she was admitted in August 2017 came to ER for fever with rash for 1 day. As per the patient, his temperature at home was 103 Fahrenheit but in ER, temperature 100 Fahrenheit, 100.6, heart rate 9200/min, no hypotension, no tachypnea or hypoxia. WBC count is 4.1 thousand. INR 1.8 Patient has an erythematous rash mainly over trunk, both front and back and neck and little bit on thighs but his right operated knee does not have increased swelling or pain but is doing good with crutches. Lactic acid normal. UA negative [] Past Medical History Past Medical History (Chronic Problems): Chronic Problems Elevated LFTs (Chronic) Anemia (Chronic) Status post total right knee replacement (Chronic) History of pulmonary embolism (Chronic) History of DVT (deep vein thrombosis) (Chronic) Allergies Sulfa (Sulfonamide Antibiotics) Allergy (Verified 10/09/17 10:25) Unknown Home Medications: Ambulatory Orders Medication Instructions Recorded Acetaminophen [Tylenol] 1,000 mg PO PRN PRN 08/24/17 Ferrous Sulfate [Iron] 325 mg PO BID #60 tab 08/26/17 Docusate Sodium [Colace] 100 mg PO BID 09/18/17 Ceftriaxone 10/09/17 Vancomycin 10/09/17 Warfarin [Coumadin] 8 mg PO DAILY 10/09/17 Surgical History: total knee arthroplasty Psychiatric History: No pertinent psych hx Smoking Status: Never smoker - *Family History Maternal History Items: No pertinent history Paternal History Items: No pertinent history Review of Systems Constitutional: Reports: Chills, Fever, Malaise, Weakness HEENT: Denies: Head Aches, Sinus Congestion, Sinus Drainage Cardiovascular: Denies: Chest Pain, Palpitations Respiratory: Denies: Cough, Shortness of breath at rest, Sputum production Gastrointestinal: Denies: Abdominal Pain, Nausea, Vomiting Genitourinary: Denies: Dysuria Musculoskeletal: Reports: Joint stiffness, Joint swelling - Mild right knee swelling but no increased tenderness.. Denies: Joint Pain, Joint Tenderness Skin: Denies: Rash, Wounds Neurological: Denies: Numbness, Tingling, Focal weakness Psychiatric: Denies: Anxiety, Depression, Homicidal Ideations, Suicidal Ideations Hematologic/ Lymphatic: Denies: Easy Bruising, Easy Bleeding VTE Information - Inpt Only VTE Present on Admission: No VTE Mechan Device Prophylaxis: SCD's VTE Pharm Prophylaxis ordered?: Yes Patient Problems: Active and Suspected Problems Fever with exanthematous rash (Acute) - Physical Exam General: Alert, Oriented x3, Cooperative HEENT: Atraumatic, PERRLA, EOMI, Normocephalic Neck: Supple, No JVD, Negative Carotid Bruits Lungs: Clear to auscultation, Normal air movement, No rhonchi, No wheeze Cardiovascular: Regular rate, Regular Rhythm, Normal S1, Normal S2, No murmurs Abdomen: Bowel Sounds Present, Soft, Non Tender Extremities: No edema, Capillary Refill Less than 3 Seconds, Edema Skin: Rash Present - Diffuse erythematous maculopapular rash over trunk, front and back, back of neck and sparsely on the upper thighs. Musculoskeletal: No Tenderness to Palpation of Joints or Extremities, Arthritic Changes, - - Range of motion of right knee still about 60? Neurological: Cranial nerves II-XII grossly intact Psych/Mental Status: Normal Affect, Appropriate Vital Signs Temp Pulse Resp BP Pulse Ox 100.6 F H 95 18 102/60 95 10/09/17 14:17 10/09/17 14:17 10/09/17 14:17 10/09/17 14:17 10/09/17 14:17 Oxygen Delivery Method Room Air Weight: 193 lb Body Mass Index (BMI) 24.7 Assessment/Plan All Active Problems Fever with exanthematous rash (Acute) 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 knee joint (Resolved) Atrial fibrillation with RVR (Resolved) Acute cystitis (Resolved) Severe sepsis (Resolved) The patient is a 56 year old M with history of right TKR in July by Dr. Vaz which was complicated by right knee infection status post washout and found to have infectious porlt-kel-usmm but did not involve the joint and then Pseudomonas UTI for which she was admitted in August 2017 came to ER for fever with rash for 1 day. As per the patient, his temperature at home was 103 Fahrenheit but in ER, temperature 100 Fahrenheit, 100.6, heart rate 9200/min, no hypotension, no tachypnea or hypoxia. WBC count is 4.1 thousand. INR 1.8 Patient has an erythematous rash mainly over trunk, both front and back and neck and little bit on thighs but his right operated knee does not have increased swelling or pain but is doing good with crutches. Lactic acid normal. UA negative 1. Fever with diffuse maculopapular rash, suspicion of drug fever/viral exanthem: Patient is being admitted on regular MedSurg floor. Discussed with ID Dr. Estrada and he advised to check vancomycin level. Blood cultures ?2 have been drawn. ESR and CRP are ordered. At home, patient is on ceftriaxone and vancomycin at week 3/ total 6 week. Hold antibiotics for now as the patient already had antibiotics in the morning. Monitor the rash. IV Solu- Medrol and Benadryl ordered. IV Pepcid ordered 2. Right TKR complicated with postoperative anemia, status post wash and recent history of Pseudomonas UTI. I do not see any appreciable change in x- ray as compared to previous x-ray in August 2017. Patient does not complain of pain and swelling although it has been better for last 3 weeks. 3. History of arrhythmia, last time paroxysmal A. fib probably prescribed by severe sepsis: In ED, EKG shows normal sinus rhythm 4. History of DVT/PE: INR is 1.8. On Coumadin. One dose of therapeutic Lovenox given. Coumadin 8 mg now and then 5 mg daily from tomorrow a.m. Daily INR and adjust her dose of Coumadin accordingly. 5. DVT prophylaxis: As mentioned above: Total time spent spent in [id number] encounter with patient, H&P, review of labs and imaging and discussion with medical sales consultant Dr. Estrada and review of plan of management with patient and his : 50 minutes. Plan of management discussed with the patient, patient daughter who is the nurse and his . Code Visit Inpatient E&M: 34440 Init Hosp L3
[2017-10-09] MEDS: 0.9% NaCl Peripheral Flush Adult/Peds IV ×2 (15:10→17:41)
[2017-10-09] MEDS: MethylPREDNISolone 125 MG/2 ML Vial 60 MG IV ×2 (15:15→22:41)
[2017-10-09 15:26] LABS: Erythrocyte Sedimentation Rate 19 mm/hr (0-20)
[2017-10-09 15:34] LABS: Vancomycin, Random Level 14.1 ug/mL (0.0-15.0)
[2017-10-09 15:36] LABS: AST(SGOT) 52 U/L (15-37); Alanine Aminotransfer ALT/SGPT 72 U/L (16-61); Alkaline Phosphatase 213 U/L (45-117); Bilirubin, Direct 0.39 mg/dL (0.00-0.30); Globulin 4.4 g/dL (2.2-4.2); Protein, Total 7.4 g/dL (6.4-8.2)
[2017-10-09] MEDS: Enoxaparin 100 MG/ML Syringe 90 MG SC (16:43)
[2017-10-09] MEDS: Acetaminophen 325 MG Tablet 650 MG PO (16:43)
[2017-10-09] MEDS: NYSTATIN 500,000 UNIT/5 ML UDC 500000 UNIT PO ×2 (17:41→22:42)
[2017-10-09 18:06] LABS: M R Staph aureus DNA By PCR Negative (Negative); Probe Check PASS; Specimen Processing Control PASS
[2017-10-09] MEDS: Docusate Sodium 100 MG Capsule PO (22:41)
[2017-10-09] MEDS: DiphenhydrAMINE 50 MG/ML Syringe 25 MG IV (22:49)
[2017-10-10] VITALS (10 sets, daily range): BP systolic 106–130; BP diastolic 63–85; PULSE 54–96; RESP 16–20; TEMP 36.8–37.2; O2SAT 93–96
[2017-10-10] MEDS: DiphenhydrAMINE 50 MG/ML Syringe 25 MG IV ×2 (05:13→23:48)
[2017-10-10] MEDS: MethylPREDNISolone 125 MG/2 ML Vial 60 MG IV (05:14)
[2017-10-10 06:31] LABS: Prothrombin Time (Protime)PT. 22.9 SECONDS (11.7-14.9)
[2017-10-10 06:49] LABS: Absolute Neutrophil Count 2.6 X10^3/uL (2.0-7.7); Basophil# 0.04 X10^3/uL; Basophil% 1.2 % (0-1); Eosinophil# 0.13 X10^3/uL; Eosinophils% 3.8 % (0-5); Hematocrit 33.6 % (40-54); Hemoglobin 10.6 g/dl (13.0-16.5); Lymphocyte % 11.8 % (19-41); Mean Corp Hgb Conc 31.5 g/gl (32-36); Mean Corpuscular Hgb 27.5 pg (27.0-32.0); Mean Platelet Vol. 10.3 fl (6.2-12.0); Monocyte# 0.28 X10^3/uL; Monocyte% 8.2 % (0-10); Neutrophil # 2.55 X10^3/uL (2.7-7.7); Platelet Count 166 K/mm3 (150-450); RBC Distribution Width CV 17.9 % (11.6-14.6); RBC Distribution Width SD 56.7 fl (35.1-43.9); Red Blood Count 3.86 M/mm3 (4.6-6.2); White Blood Count 3.4 K/mm3 (4.4-11.0)
[2017-10-10 06:52] LABS: Anion Gap 7 (5-15); BUN 10 mg/dL (7-18); BUN/Creat Ratio 13.1 RATIO (10-20); Calcium,Total 8.7 mg/dL (8.5-10.1); Chloride 103 mmol/L (98-107); Creatinine, Serum 0.76 mg/dL (0.70-1.30); EST Glomerular Filtration Rate 112 mL/min (>60); Est Glom Filt Rate - Afr Amer 136 mL/min (>60); Estimated Creatinine Clearance 126.18 ml/min; Glucose 119 mg/dL (74-106); Potassium 4.1 mmol/L (3.5-5.1); Sodium Level 137 mmol/L (136-145)
[2017-10-10 06:58] LABS: Differential Indicated SCAN CRITERIA MET; POSITIVE COUNT NO; POSITIVE DIFFERENTIAL YES; POSITIVE MORPHOLOGY NO
[2017-10-10 07:07] LABS: Differential Comment SCANNED
[2017-10-10] MEDS: 0.9% NaCl Peripheral Flush Adult/Peds IV ×2 (09:35→21:53)
[2017-10-10] MEDS: NYSTATIN 500,000 UNIT/5 ML UDC 500000 UNIT PO ×4 (09:35→21:57)
--- NOTE | 2017-10-10 11:49 | PCM.HP.ID ---
Problem List (1) Fever with exanthematous rash Status: Acute Reason for Consult: rash Consulted by: Dr. Karimi History of Present Illness: The patient is a 56 year old M with recent admit for R knee PJI with thigh abscess after TKA 08/15/[address] Vaz. Aspiration 09/15 with 28k wbc and 98%N. Taken back to OR 09/19 for I&D, poly exchange and abscess drainage. Fluid and surg cx finalized as neg, discharged on 6 week course of iv vanc/ceftriaxone. Had been doing well, no issues with picc. Knee healing well with no drainage. No abd pain or n/v/d. Yesterday, had new onset rash on chest/abd/back/limbs. Mild itching. Some fever/chills. No prior h/o rash with PCNs. Came to ED, given steroids and benadryl. Abx held. Vanc trough at goal. This AM feeling better, still rash. Full ROS performed and neg except as noted above. - Medical History Past Medical History (Chronic Problems): Chronic Problems Elevated LFTs (Chronic) Anemia (Chronic) Status post total right knee replacement (Chronic) History of pulmonary embolism (Chronic) History of DVT (deep vein thrombosis) (Chronic) Allergies/Adverse Reactions: Allergies Sulfa (Sulfonamide Antibiotics) Allergy (Verified 10/09/17 10:25) Unknown Home Medications: Ambulatory Orders Medication Instructions Recorded Acetaminophen [Tylenol] 1,000 mg PO PRN PRN 08/24/17 Ferrous Sulfate [Iron] 325 mg PO BID #60 tab 08/26/17 Docusate Sodium [Colace] 100 mg PO BID 09/18/17 Ceftriaxone 10/09/17 Vancomycin 10/09/17 Warfarin [Coumadin] 8 mg PO DAILY 10/09/17 - Social History SMOKING STATUS:: Never smoker Vital Signs Temp Pulse Resp BP Pulse Ox 98.2 F 96 16 130/85 H 93 10/10/17 09:28 10/10/17 09:28 10/10/17 09:28 10/10/17 09:28 10/10/17 11:20 Oxygen Delivery Method Room Air Weight: 87.543 kg Laboratory Tests Past 24 Hrs 10/10/17 10/10/17 10/10/17 05:45 05:45 05:45 WBC 3.4 L RBC 3.86 L Hgb 10.6 L Hct 33.6 L MCV 87.0 MCH 27.5 MCHC 31.5 L RDW 17.9 H RDW Differential 56.7 H Plt Count 166 MPV 10.3 Immature Gran % (Auto) 0.000 Neut % (Auto) 75.0 H Lymph % (Auto) 11.8 L [place] % (Auto) 8.2 Eos % (Auto) 3.8 Baso % (Auto) 1.2 H Absolute Neuts (auto) 2.6 Absolute Lymphs (auto) 0.40 L Total Counted Not Reportable Differential Comment SCANNED PT 22.9 H INR 2.0 Sodium 137 Potassium 4.1 Chloride 103 Carbon Dioxide 27.0 Anion Gap 7 BUN 10 Creatinine 0.76 Estim Creat Clear Calc 126.18 Est GFR (MDRD) Af Amer 136 Est GFR (MDRD) Non-Af 112 BUN/Creatinine Ratio 13.1 Glucose 119 H Calcium 8.7 - Other Studies Radiology: [] reviewed Other Studies: [] Route of nutrition/ use of supplements: [] Nutritional Intake: [] IV Site: [] [place] Catheter: [] - Physical Exam General: Alert, Oriented x3, Cooperative, No apparent distress HEENT: Atraumatic, PERRLA, EOMI Neck: Supple, No Nodes Lungs: Clear to auscultation, Normal air movement Cardiovascular: No murmurs, Irregular Rate Abdomen: Soft, Non Tender, Non-Distended Extremities: No edema Skin: Incision - R knee well healed, - - blanching erythema on trunk/limbs. Some petechiae on anterior thighs. IV Site: PICC, without redness Musculoskeletal: No Tenderness to Palpation of Joints or Extremities Neurological: Cranial nerves II-XII grossly intact - Assessment/Plan Antibiotics: [] Assessment/Plan: [] Active and Suspected Problems Fever with exanthematous rash (Acute) Drug rash - elevated eos. Hold ceftriaxone, ok to continue iv vanc. May add additional oral antibiotic tomorrow for broader coverage. R knee PJI with thigh abscess - s/p TKA 08/15/[address] Vaz. Aspiration 09/15 with 28k wbc and 98%N. Taken back to OR 09/19 for I&D, poly exchange and abscess drainage. Fluid and surg cx finalized as neg. Plan is for him to complete 6 week total course of vanc. Ceftriaxone stopped. ESR is now normal, no fever here, normal wbc. Weekly bmp, cbc, esr, and vanc trough while on iv abx. Stop date for iv abx will be 10/31/17 and then long course of po abx. Will follow, d/w primary team, thank you.
--- NOTE | 2017-10-10 11:50 | CASEMGMT ---
RN OMAIRA Face to Face with patient for initial transition planning/care coordination assessment. RN OMAIRA introduced self and role at [facility]. Patient lying in bed, alert and oriented. Patient willing to participate in assessment and is able to answer all questions appropriately. Care providers, pharmacy, and demographics verified. Patient was admitted 09/18/17-09/21/17 for total knee poly exchange. Patient was setup with HHC with [facility]HC and IV ATBs. Patient wishes to discharge home with resumption of HHC and IV ATBs. Patient states he has no further needs or concerns at this time. CM to follow for discharge planning needs that may arise. Disposition Plan: Patient to discharge home with resumption of HHC, family support, and follow-up plans in place.
--- NOTE | 2017-10-10 12:03 | PCM.PN.HOSP ---
Patient Problems: Active and Suspected Problems Fever with exanthematous rash (Acute) Subjective: still with rash, no change. Vitals/I&O's: Vital Signs Temp Pulse Resp BP Pulse Ox 36.8 C 96 16 130/85 H 93 10/10/17 09:28 10/10/17 09:28 10/10/17 09:28 10/10/17 09:28 10/10/17 11:20 Oxygen Delivery Method Room Air Weight: 87.543 kg Intake and Output for Last 24 Hours 10/08/17 10/09/17 10/10/17 23:59 23:59 23:59 Intake Total 436 / 436 972 / 972 Balance 436 / 436 972 / 972 General: Alert, No apparent distress HEENT: Atraumatic, Normocephalic Oral: Moist Mucosa, No Gingival or Mucosal Lesions/ Ulcerations Neck: No Nodes, Thyroid Normal Size and Texture Lungs: Clear to auscultation, Normal air movement, No rhonchi, No wheeze Cardiovascular: Regular rate, Regular Rhythm, Normal S1, Normal S2, No murmurs Abdomen: Bowel Sounds Present, Soft, Non Tender, Non-Distended, No Hepato-splenomegaly Extremities: No edema, No Calf Tenderness Skin: - - diffuse macular papular rash, most intense on abd and legs, less marked on arms. Musculoskeletal: No Tenderness to Palpation of Joints or Extremities, No Muscle Wasting Psych/Mental Status: Normal Affect, Appropriate Laboratory Results 10/10/17 05:45: WBC 3.4 L, RBC 3.86 L, Hgb 10.6 L, Hct 33.6 L, MCV 87.0, MCH 27.5, MCHC 31.5 L, RDW 17.9 H, RDW Differential 56.7 H, Plt Count 166, MPV 10.3, Immature Gran % (Auto) 0.000, Neut % (Auto) 75.0 H, Lymph % (Auto) 11.8 L, [place] % (Auto) 8.2, Eos % (Auto) 3.8, Baso % (Auto) 1.2 H, Absolute Neuts (auto) 2.6, Absolute Lymphs (auto) 0.40 L, Total Counted Not Reportable, Differential Comment SCANNED 10/10/17 05:45: Sodium 137, Potassium 4.1, Chloride 103, Carbon Dioxide 27.0, Anion Gap 7, BUN 10, Creatinine 0.76, Estim Creat Clear Calc 126.18, Est GFR (MDRD) Af Amer 136, Est GFR (MDRD) Non-Af 112, BUN/Creatinine Ratio 13.1, Glucose 119 H, Calcium 8.7 10/10/17 05:45: PT 22.9 H, INR 2.0 Current Medications Acetaminophen (Tylenol) 650 mg PO Q6H PRN PRN PRN Reason: FEVER OR TEMP >100.4 Last Admin: 10/09/17 16:43 Dose: 650 mg Al Hydroxide/Mg Hydroxide (Mylanta Ii) 30 ml PO Q6H PRN PRN PRN Reason: Gastric burning Diphenhydramine HCl (Benadryl) 25 mg IV Q4H PRN PRN PRN Reason: RASH/TOPICAL IRRITATION Last Admin: 10/10/17 05:13 Dose: 25 mg Docusate Sodium (Colace) 100 mg PO BID [facility] [place] Last Admin: 10/10/17 09:34 Dose: Not Given Famotidine 20 mg/ Sodium (Chloride) 10 mls @ 300 mls/hr IV Q12 [facility] Last Admin: 10/10/17 09:35 Dose: 300 mls/hr Magnesium Hydroxide (Milk Of Magnesia) 30 ml PO DAILY PRN PRN PRN Reason: Constipation Methylprednisolone (Solu-Medrol) 60 mg IV Q8 [facility] Last Admin: 10/10/17 05:14 Dose: 60 mg Nystatin (Nystatin) 500,000 unit PO 4X/DAY [facility] [place] Last Admin: 10/10/17 09:35 Dose: 500,000 unit Ondansetron HCl (Zofran) 4 mg IV Q6H PRN PRN PRN Reason: NAUSEA Promethazine HCl (Phenergan) 12.5 mg IV Q6H PRN PRN PRN Reason: NAUSEA/VOMITING Sodium Chloride () 5 - 30 ml IV UD PRN PRN Reason: SALINE FLUSH Last Admin: 10/10/17 09:35 Dose: 10 ml Warfarin Sodium (Coumadin (Pbkc)) 5 mg PO DAILY@1700 [facility] [place] [place] Zolpidem Tartrate (Ambien (Generic)) 5 mg PO QHS PRN PRN PRN Reason: INSOMNIA Medical Necessity - Tobacco Use Smoking Status: Never smoker Assessment/Plan All Active Problems Fever with exanthematous rash (Acute) 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 knee joint (Resolved) Atrial fibrillation with RVR (Resolved) Acute cystitis (Resolved) Severe sepsis (Resolved) 1. drug rash suspect ceftriaxone monitor Eos have decreased doubt viral exanthem, nor food allergy. 2. Right knee prosthetic joint infection DW Dr. Estrada, plan is to just continue vanc ID may consider addition of oral antibiotics 3.VTE: on warfarin 4. DVT proph: on warfarin, INR 2. Dispo: monitor rash and eosinophils. If improved may be ready for dc in next 24-48h. Code Visit Inpatient E&M: 90978 Subs Hosp L2
--- NOTE | 2017-10-10 12:08 | PN_ITS ---
Patient Problems: Active and Suspected Problems Fever with exanthematous rash (Acute) Subjective: still with rash, no change. Vitals/I&O's: Vital Signs Temp Pulse Resp BP Pulse Ox 36.8 C 96 16 130/85 H 93 10/10/17 09:28 10/10/17 09:28 10/10/17 09:28 10/10/17 09:28 10/10/17 11:20 Oxygen Delivery Method Room Air Weight: 87.543 kg Intake and Output for Last 24 Hours 10/08/17 10/09/17 10/10/17 23:59 23:59 23:59 Intake Total 436 / 436 972 / 972 Balance 436 / 436 972 / 972 General: Alert, No apparent distress HEENT: Atraumatic, Normocephalic Oral: Moist Mucosa, No Gingival or Mucosal Lesions/ Ulcerations Neck: No Nodes, Thyroid Normal Size and Texture Lungs: Clear to auscultation, Normal air movement, No rhonchi, No wheeze Cardiovascular: Regular rate, Regular Rhythm, Normal S1, Normal S2, No murmurs Abdomen: Bowel Sounds Present, Soft, Non Tender, Non-Distended, No Hepato- splenomegaly Extremities: No edema, No Calf Tenderness Skin: - - diffuse macular papular rash, most intense on abd and legs, less marked on arms. Musculoskeletal: No Tenderness to Palpation of Joints or Extremities, No Muscle Wasting Psych/Mental Status: Normal Affect, Appropriate Laboratory Results 10/10/17 05:45: WBC 3.4 L, RBC 3.86 L, Hgb 10.6 L, Hct 33.6 L, MCV 87.0, MCH 27.5, MCHC 31.5 L, RDW 17.9 H, RDW Differential 56.7 H, Plt Count 166, MPV 10.3 , Immature Gran % (Auto) 0.000, Neut % (Auto) 75.0 H, Lymph % (Auto) 11.8 L, [place] % (Auto) 8.2, Eos % (Auto) 3.8, Baso % (Auto) 1.2 H, Absolute Neuts (auto) 2.6, Absolute Lymphs (auto) 0.40 L, Total Counted Not Reportable, Differential Comment SCANNED 10/10/17 05:45: Sodium 137, Potassium 4.1, Chloride 103, Carbon Dioxide 27.0, Anion Gap 7, BUN 10, Creatinine 0.76, Estim Creat Clear Calc 126.18, Est GFR ( MDRD) Af Amer 136, Est GFR (MDRD) Non-Af 112, BUN/Creatinine Ratio 13.1, Glucose 119 H, Calcium 8.7 10/10/17 05:45: PT 22.9 H, INR 2.0 Current Medications Acetaminophen (Tylenol) 650 mg PO Q6H PRN PRN PRN Reason: FEVER OR TEMP >100.4 Last Admin: 10/09/17 16:43 Dose: 650 mg Al Hydroxide/Mg Hydroxide (Mylanta Ii) 30 ml PO Q6H PRN PRN PRN Reason: Gastric burning Diphenhydramine HCl (Benadryl) 25 mg IV Q4H PRN PRN PRN Reason: RASH/TOPICAL IRRITATION Last Admin: 10/10/17 05:13 Dose: 25 mg Docusate Sodium (Colace) 100 mg PO BID [facility] Last Admin: 10/10/17 09:34 Dose: Not Given Famotidine 20 mg/ Sodium (Chloride) 10 mls @ 300 mls/hr IV Q12 [facility] Last Admin: 10/10/17 09:35 Dose: 300 mls/hr Magnesium Hydroxide (Milk Of Magnesia) 30 ml PO DAILY PRN PRN PRN Reason: Constipation Methylprednisolone (Solu-Medrol) 60 mg IV Q8 [facility] Last Admin: 10/10/17 05:14 Dose: 60 mg Nystatin (Nystatin) 500,000 unit PO 4X/DAY [facility] Last Admin: 10/10/17 09:35 Dose: 500,000 unit Ondansetron HCl (Zofran) 4 mg IV Q6H PRN PRN PRN Reason: NAUSEA Promethazine HCl (Phenergan) 12.5 mg IV Q6H PRN PRN PRN Reason: NAUSEA/VOMITING Sodium Chloride () 5 - 30 ml IV UD PRN PRN Reason: SALINE FLUSH Last Admin: 10/10/17 09:35 Dose: 10 ml Warfarin Sodium (Coumadin (Pbkc)) 5 mg PO DAILY@1700 [facility] Zolpidem Tartrate (Ambien (Generic)) 5 mg PO QHS PRN PRN PRN Reason: INSOMNIA Medical Necessity - Tobacco Use Smoking Status: Never smoker Assessment/Plan All Active Problems Fever with exanthematous rash (Acute) 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 knee joint (Resolved) Atrial fibrillation with RVR (Resolved) Acute cystitis (Resolved) Severe sepsis (Resolved) 1. drug rash * suspect ceftriaxone * monitor * Eos have decreased * doubt viral exanthem, nor food allergy. 2. Right knee prosthetic joint infection * DW Dr. Estrada, plan is to just continue vanc * ID may consider addition of oral antibiotics 3.VTE: on warfarin 4. DVT proph: on warfarin, INR 2. Dispo: monitor rash and eosinophils. If improved may be ready for dc in next 24- 48h. Code Visit Inpatient E&M: 92451 Subs Hosp L2
--- NOTE | 2017-10-10 12:20 | PCM.RX.CS ---
<Jesse Pradhan - Last Filed: 10/10/17 12:20> Consult Pharmacy has been consulted to manage selected antiobiotic: Vancomycin Type of Consult: New start Suspected Infection: Skin/Soft tissue Prior Doses of Antibiotics Received/Current Regimen: 1250mg IV q12h at home @ 08-20 Labs: Sodium 137 mmol/L (136-145) 10/10/17 05:45 Potassium 4.1 mmol/L (3.5-5.1) 10/10/17 05:45 Chloride 103 mmol/L (98-107) 10/10/17 05:45 Carbon Dioxide 27.0 mmol/L (21.0-32.0) 10/10/17 05:45 Anion Gap 7 (5-15) 10/10/17 05:45 BUN 10 mg/dL (7-18) 10/10/17 05:45 Creatinine 0.76 mg/dL (0.70-1.30) 10/10/17 05:45 Est GFR (MDRD) Af Amer 136 mL/min (>60) 10/10/17 05:45 Est GFR (MDRD) Non-Af 112 mL/min (>60) 10/10/17 05:45 BUN/Creatinine Ratio 13.1 RATIO (10-20) 10/10/17 05:45 Glucose 119 mg/dL (74-106) H 10/10/17 05:45 Random Vancomycin 14.1 ug/mL (0.0-15.0) 10/09/17 15:00 Weight used for dosin kg Estimated Creatinine Clearance: > 100 Goal Trough: 10-15 mcg/mL Pharmacy Plan for Drug Dosing: Patient was previously maintained at home on vancomycin 1250mg IV q12h. Per Dr Estrada, will restart. Pharmacy Service will continue to monitor and adjust dosing as required. Follow-Up Labs: Trough Vancomycin - 10/12/17 @ 0800 <Shane Bullock - Last Filed: 10/10/17 13:11> Consult Labs: Sodium 137 mmol/L (136-145) 10/10/17 05:45 Potassium 4.1 mmol/L (3.5-5.1) 10/10/17 05:45 Chloride 103 mmol/L (98-107) 10/10/17 05:45 Carbon Dioxide 27.0 mmol/L (21.0-32.0) 10/10/17 05:45 Anion Gap 7 (5-15) 10/10/17 05:45 BUN 10 mg/dL (7-18) 10/10/17 05:45 Creatinine 0.76 mg/dL (0.70-1.30) 10/10/17 05:45 Est GFR (MDRD) Af Amer 136 mL/min (>60) 10/10/17 05:45 Est GFR (MDRD) Non-Af 112 mL/min (>60) 10/10/17 05:45 BUN/Creatinine Ratio 13.1 RATIO (10-20) 10/10/17 05:45 Glucose 119 mg/dL (74-106) H 10/10/17 05:45 Random Vancomycin 14.1 ug/mL (0.0-15.0) 10/09/17 15:00 Goal Trough: 15-20 mcg/mL Pharmacy Plan for Drug Dosing: Pharmacy Service will continue to monitor and adjust dosing as required.
[2017-10-10] MEDS: predniSONE 20 MG Tablet 40 MG PO (12:54)
[2017-10-11] VITALS (12 sets, daily range): BP systolic 102–128; BP diastolic 53–65; PULSE 77–107; RESP 16–20; TEMP 36.8–38.7; O2SAT 92–98
[2017-10-11 06:08] LABS: International Normalized Ratio 1.9; Prothrombin Time (Protime)PT. 22.2 SECONDS (11.7-14.9)
[2017-10-11 06:17] LABS: Anion Gap 7 (5-15); BUN 11 mg/dL (7-18); BUN/Creat Ratio 12.7 RATIO (10-20); Calcium,Total 8.4 mg/dL (8.5-10.1); Chloride 105 mmol/L (98-107); Creatinine, Serum 0.86 mg/dL (0.70-1.30); EST Glomerular Filtration Rate 97 mL/min (>60); Est Glom Filt Rate - Afr Amer 117 mL/min (>60); Estimated Creatinine Clearance 110.18 ml/min; Glucose 108 mg/dL (74-106); Potassium 3.7 mmol/L (3.5-5.1); Sodium Level 138 mmol/L (136-145)
[2017-10-11 06:37] LABS: Absolute Lymphocyte Count 0.57 X10^3/ul (0.83-4.51); Absolute Neutrophil Count 6.2 X10^3/uL (2.0-7.7); Basophil# 0.02 X10^3/uL; Basophil% 0.3 % (0-1); Eosinophils% 6.6 % (0-5); Hematocrit 32.9 % (40-54); Hemoglobin 10.2 g/dl (13.0-16.5); Lymphocyte # 0.57 X10^3/ul (4.0); Lymphocyte % 7.5 % (19-41); Mean Corpuscular Hgb 26.7 pg (27.0-32.0); Mean Corpuscular Volume 86.1 fL (80-94); Mean Platelet Vol. 9.6 fl (6.2-12.0); Monocyte# 0.32 X10^3/uL; Monocyte% 4.2 % (0-10); Neutrophil # 6.17 X10^3/uL (2.7-7.7); Neutrophil % 81.4 % (47-70); Platelet Count 186 K/mm3 (150-450); RBC Distribution Width CV 18.2 % (11.6-14.6); RBC Distribution Width SD 57.6 fl (35.1-43.9); Red Blood Count 3.82 M/mm3 (4.6-6.2); White Blood Count 7.6 K/mm3 (4.4-11.0)
[2017-10-11 06:46] LABS: Differential Indicated SCAN CRITERIA MET; POSITIVE COUNT NO; POSITIVE DIFFERENTIAL YES; POSITIVE MORPHOLOGY NO
[2017-10-11 07:31] LABS: Differential Comment SCANNED
[2017-10-11] MEDS: predniSONE 20 MG Tablet 40 MG PO (08:18)
[2017-10-11] MEDS: DiphenhydrAMINE 50 MG/ML Syringe 25 MG IV (08:26)
[2017-10-11] MEDS: 0.9% NaCl Peripheral Flush Adult/Peds IV ×3 (08:27→13:20)
[2017-10-11] MEDS: Acetaminophen 325 MG Tablet 650 MG PO ×2 (08:27→16:14)
--- NOTE | 2017-10-11 08:32 | NURSING ---
benadryl and tylenol given at this time. temp 101.6 and rash appears more red and solid today
--- NOTE | 2017-10-11 10:30 | PCM.PN.ID ---
Patient Problems: Active and Suspected Problems Fever with exanthematous rash (Acute) Subjective: Worsened rash and itching. Denies feeling fever or chills last night. - Physical Exam General: Alert, Cooperative Lungs: Clear to auscultation, Normal air movement Cardiovascular: Regular rate, Regular Rhythm Abdomen: Soft, Non Tender, Non-Distended Skin: Rash Present - diffuse maculopapular rash on trunk and extremities, worse today Vital Signs Temp Pulse Resp BP Pulse Ox 101.6 F H 107 H 16 116/57 L 94 10/11/17 08:14 10/11/17 08:14 10/11/17 08:14 10/11/17 08:14 10/11/17 08:14 Oxygen Delivery Method Room Air Weight: 87.543 kg Intake and Output for Last 24 Hours 10/09/17 10/10/17 10/11/17 23:59 23:59 23:59 Intake Total 436 / 436 3117 / 3117 100 / 100 Balance 436 / 436 3117 / 3117 100 / 100 Laboratory Tests Past 24 Hrs 10/11/17 10/11/17 10/11/17 05:40 05:40 05:40 WBC 7.6 RBC 3.82 L Hgb 10.2 L Hct 32.9 L MCV 86.1 MCH 26.7 L MCHC 31.0 L RDW 18.2 H RDW Differential 57.6 H Plt Count 186 MPV 9.6 Immature Gran % (Auto) 0.000 Neut % (Auto) 81.4 H Lymph % (Auto) 7.5 L [place] % (Auto) 4.2 Eos % (Auto) 6.6 H Baso % (Auto) 0.3 Absolute Neuts (auto) 6.2 Absolute Lymphs (auto) 0.57 L Total Counted Not Reportable Differential Comment SCANNED PT 22.2 H INR 1.9 Sodium 138 Potassium 3.7 Chloride 105 Carbon Dioxide 26.0 Anion Gap 7 BUN 11 Creatinine 0.86 Estim Creat Clear Calc 110.18 Est GFR (MDRD) Af Amer 117 Est GFR (MDRD) Non-Af 97 BUN/Creatinine Ratio 12.7 Glucose 108 H Calcium 8.4 L Medical Necessity - Tobacco Use Smoking Status: Never smoker Route of nutrition/ use of supplements: [] Nutritional Intake: [] IV Site: [] Morejon Catheter: [] - Assessment/Plan Antibiotics: [] Assessment/Plan: [] Active and Suspected Problems Fever with exanthematous rash (Acute) Drug rash - elevated eos. Stopped ceftriaxone, now rash worse. Will stop vanc. Start po doxy in the meantime, will need to eval for additional coverage tomorrow. Did get vanc this AM. R knee PJI with thigh abscess - s/p TKA 08/15/[address] Vaz. Aspiration 09/15 with 28k wbc and 98%N. Taken back to OR 09/19 for I&D, poly exchange and abscess drainage. Fluid and surg cx finalized as neg. Plan is for him to complete 6 week total course of iv abx then shelter po abx. Stop date for iv abx will be 10/31/17. Will follow, d/w primary team
[2017-10-11] MEDS: Doxycycline 100 MG CAPSULE PO ×2 (11:21→22:03)
[2017-10-11] MEDS: NYSTATIN 500,000 UNIT/5 ML UDC 500000 UNIT PO ×4 (11:21→22:03)
--- NOTE | 2017-10-11 11:36 | NURSING ---
0835-dr grimes instructed rate of vanc to be decreased by half and monitor rate. rate was decreased at that time.
--- NOTE | 2017-10-11 11:37 | NURSING ---
rash not quite as bright red as previously noted. pt c/o itching and mostly burning at this time.
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
[2017-10-11] MEDS: DiphenhydrAMINE 50 MG/ML Syringe IV ×2 (13:20→20:24)
--- NOTE | 2017-10-11 13:53 | PCM.PN.HOSP ---
Patient Problems: Active and Suspected Problems Fever with exanthematous rash (Acute) Subjective: Rash worsened this am per the nurse and the patient. The rash became more intensely red and warmer. Not itchy, mostly blanching Vitals/I&O's: Vital Signs Temp Pulse Resp BP Pulse Ox 99.0 F 98 16 116/53 L 98 10/11/17 13:28 10/11/17 13:28 10/11/17 13:28 10/11/17 13:28 10/11/17 13:28 Oxygen Delivery Method Room Air Weight: 193 lb Intake and Output for Last 24 Hours 10/09/17 10/10/17 10/11/17 23:59 23:59 23:59 Intake Total 436 / 436 3117 / 3117 100 / 100 Balance 436 / 436 3117 / 3117 100 / 100 General: Alert, Oriented x3, Cooperative, No apparent distress HEENT: Atraumatic, EOMI, Normocephalic Oral: Moist Mucosa Neck: Supple, No JVD Lungs: Clear to auscultation, Normal air movement, No rhonchi, No wheeze, No rales Cardiovascular: Regular rate, Regular Rhythm, Normal S1, Normal S2, No murmurs Abdomen: Soft, Non Tender, Non-Distended, No Hepato-splenomegaly Extremities: No edema, Capillary Refill Less than 3 Seconds Skin: - - total body, blanching, confluent rash Psych/Mental Status: Normal Affect, Appropriate Laboratory Results 10/11/17 05:40: PT 22.2 H, INR 1.9 10/11/17 05:40: WBC 7.6, RBC 3.82 L, Hgb 10.2 L, Hct 32.9 L, MCV 86.1, MCH 26.7 L, MCHC 31.0 L, RDW 18.2 H, RDW Differential 57.6 H, Plt Count 186, MPV 9.6, Immature Gran % (Auto) 0.000, Neut % (Auto) 81.4 H, Lymph % (Auto) 7.5 L, [place] % (Auto) 4.2, Eos % (Auto) 6.6 H, Baso % (Auto) 0.3, Absolute Neuts (auto) 6.2, Absolute Lymphs (auto) 0.57 L, Total Counted Not Reportable, Differential Comment SCANNED 10/11/17 05:40: Sodium 138, Potassium 3.7, Chloride 105, Carbon Dioxide 26.0, Anion Gap 7, BUN 11, Creatinine 0.86, Estim Creat Clear Calc 110.18, Est GFR (MDRD) Af Amer 117, Est GFR (MDRD) Non-Af 97, BUN/Creatinine Ratio 12.7, Glucose 108 H, Calcium 8.4 L Current Medications Acetaminophen (Tylenol) 650 mg PO Q6H PRN PRN PRN Reason: FEVER OR TEMP >100.4 Last Admin: 10/11/17 08:27 Dose: 650 mg Al Hydroxide/Mg Hydroxide (Mylanta Ii) 30 ml PO Q6H PRN PRN PRN Reason: Gastric burning Diphenhydramine HCl (Benadryl) 25 - 50 mg IV Q4H PRN PRN PRN Reason: rash/itching Last Admin: 10/11/17 13:20 Dose: 50 mg Docusate Sodium (Colace) 100 mg PO BID [facility] Last Admin: 10/11/17 08:18 Dose: Not Given Doxycycline Monohydrate (Doxycycline) 100 mg PO BID [facility] Last Admin: 10/11/17 11:21 Dose: 100 mg Famotidine 20 mg/ Sodium (Chloride) 10 mls @ 300 mls/hr IV Q12 [facility] Last Admin: 10/11/17 11:21 Dose: 300 mls/hr Magnesium Hydroxide (Milk Of Magnesia) 30 ml PO DAILY PRN PRN PRN Reason: Constipation Nystatin (Nystatin) 500,000 unit PO 4X/DAY [facility] Last Admin: 10/11/17 13:21 Dose: 500,000 unit Ondansetron HCl (Zofran) 4 mg IV Q6H PRN PRN PRN Reason: NAUSEA Prednisone () 40 mg PO DAILY@0800 [facility] Last Admin: 10/11/17 08:18 Dose: 40 mg Promethazine HCl (Phenergan) 12.5 mg IV Q6H PRN PRN PRN Reason: NAUSEA/VOMITING Sodium Chloride () 5 - 30 ml IV UD PRN PRN Reason: SALINE FLUSH Last Admin: 10/11/17 13:20 Dose: 10 ml Warfarin Sodium (Coumadin (Pbkc)) 5 mg PO DAILY@1700 [facility] Last Admin: 10/10/17 17:55 Dose: 5 mg Zolpidem Tartrate (Ambien (Generic)) 5 mg PO QHS PRN PRN PRN Reason: INSOMNIA Medical Necessity - Tobacco Use Smoking Status: Never smoker Assessment/Plan All Active Problems Fever with exanthematous rash (Acute) 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 knee joint (Resolved) Atrial fibrillation with RVR (Resolved) Acute cystitis (Resolved) Severe sepsis (Resolved) 1. S/p RTK/abscess formation s/p I&D/Drug rash - Completed 3 weeks of rocephin and vancomycin IV - Developed the rash on tuesday and stopped his rocephin - Today with the worsening rash, his vancomycin was stopped and his benadryl was increased to 50 mg - Start doxy PO and re-eval in the am, appreciate ID recs - c/w prednisone and taper on DC 2. Afib with RVR - Stable currently - c/w coumadin DVT: Coumadin Diet: regular Code: FULL Code Visit Inpatient E&M: 66002 Subs Hosp L2
[2017-10-11] MEDS: Zolpidem Tartrate 5 MG Tablet PO (22:03)
[2017-10-12 02:00] VITALS: BP 118/64; PULSE 82; RESP 16; TEMP 37.4; O2SAT 94
[2017-10-12 06:00] VITALS: PULSE 77
[2017-10-12 06:25] LABS: Prothrombin Time (Protime)PT. 23.1 SECONDS (11.7-14.9)
[2017-10-12 06:28] LABS: Absolute Neutrophil Count 2.8 X10^3/uL (2.0-7.7); Basophil# 0.06 X10^3/uL; Basophil% 1.1 % (0-1); Eosinophils% 17.5 % (0-5); Hematocrit 31.7 % (40-54); Hemoglobin 9.9 g/dl (13.0-16.5); Mean Corp Hgb Conc 31.2 g/gl (32-36); Mean Corpuscular Hgb 27.2 pg (27.0-32.0); Mean Corpuscular Volume 87.1 fL (80-94); Mean Platelet Vol. 10.6 fl (6.2-12.0); Monocyte# 0.66 X10^3/uL; Monocyte% 11.6 % (0-10); Neutrophil # 2.78 X10^3/uL (2.7-7.7); Neutrophil % 48.6 % (47-70); Platelet Count 186 K/mm3 (150-450); RBC Distribution Width CV 18.3 % (11.6-14.6); RBC Distribution Width SD 57.8 fl (35.1-43.9); Red Blood Count 3.64 M/mm3 (4.6-6.2); White Blood Count 5.7 K/mm3 (4.4-11.0)
[2017-10-12 06:29] LABS: POSITIVE COUNT NO; POSITIVE DIFFERENTIAL NO; POSITIVE MORPHOLOGY NO
[2017-10-12 06:53] VITALS: O2SAT 94
[2017-10-12 06:55] LABS: Albumin, Serum 2.5 g/dL (3.2-5.0); BUN 7 mg/dL (7-18); BUN/Creat Ratio 9.9 RATIO (10-20); EST Glomerular Filtration Rate 123 mL/min (>60); Est Glom Filt Rate - Afr Amer 148 mL/min (>60); Estimated Creatinine Clearance 135.37 ml/min; Glucose 93 mg/dL (74-106); Protein, Total 6.3 g/dL (6.4-8.2)
[2017-10-12 06:56] LABS: ALB/GLOB Ratio 0.7 RATIO (0.9-2.4); AST(SGOT) 27 U/L (15-37); Alanine Aminotransfer ALT/SGPT 51 U/L (16-61); Alkaline Phosphatase 183 U/L (45-117); Anion Gap 12 (5-15); Calcium,Total 8.1 mg/dL (8.5-10.1); Chloride 106 mmol/L (98-107); Globulin 3.8 g/dL (2.2-4.2); Potassium 3.3 mmol/L (3.5-5.1); Sodium Level 143 mmol/L (136-145)
[2017-10-12 08:37] VITALS: BP 112/72; PULSE 91; RESP 18; TEMP 36.8; O2SAT 98
[2017-10-12] MEDS: Docusate Sodium 100 MG Capsule PO (08:49)
[2017-10-12] MEDS: predniSONE 20 MG Tablet 40 MG PO (08:49)
[2017-10-12] MEDS: NYSTATIN 500,000 UNIT/5 ML UDC 500000 UNIT PO ×2 (08:49→14:15)
[2017-10-12] MEDS: 0.9% NaCl Peripheral Flush Adult/Peds IV ×3 (10:37→12:47)
[2017-10-12] MEDS: Doxycycline 100 MG CAPSULE PO ×2 (10:38→16:31)
--- NOTE | 2017-10-12 11:56 | PCM.PN.ID ---
Patient Problems: Active and Suspected Problems Fever with exanthematous rash (Acute) Subjective: Rash much better today, feeling good, no fever. - Physical Exam General: Alert, Cooperative, No apparent distress Lungs: Clear to auscultation, Normal air movement Cardiovascular: Regular rate, Regular Rhythm Abdomen: Soft, Non Tender, Non-Distended Skin: Rash Present - improved on trunk and extremities, Incision - R knee well healed Vital Signs Temp Pulse Resp BP Pulse Ox 98.3 F 91 18 112/72 98 10/12/17 08:37 10/12/17 08:37 10/12/17 08:37 10/12/17 08:37 10/12/17 08:37 Oxygen Delivery Method Room Air Weight: 87.543 kg Intake and Output for Last 24 Hours 10/10/17 10/11/17 10/12/17 23:59 23:59 23:59 Intake Total 3117 / 3117 100 / 100 500 / 500 Balance 3117 / 3117 100 / 100 500 / 500 Laboratory Tests Past 24 Hrs 10/12/17 10/12/17 10/12/17 05:45 05:45 05:45 WBC 5.7 RBC 3.64 L Hgb 9.9 L Hct 31.7 L MCV 87.1 MCH 27.2 MCHC 31.2 L RDW 18.3 H RDW Differential 57.8 H Plt Count 186 MPV 10.6 Immature Gran % (Auto) 0.200 Neut % (Auto) 48.6 Lymph % (Auto) 21.0 [place] % (Auto) 11.6 H Eos % (Auto) 17.5 H Baso % (Auto) 1.1 H Absolute Neuts (auto) 2.8 Absolute Lymphs (auto) 1.20 Total Counted Not Reportable PT 23.1 H INR 2.0 Sodium 143 Potassium 3.3 L Chloride 106 Carbon Dioxide 25.0 Anion Gap 12 BUN 7 Creatinine 0.70 Estim Creat Clear Calc 135.37 Est GFR (MDRD) Af Amer 148 Est GFR (MDRD) Non-Af 123 BUN/Creatinine Ratio 9.9 L Glucose 93 Calcium 8.1 L Total Bilirubin 0.30 AST 27 ALT 51 Alkaline Phosphatase 183 H Total Protein 6.3 L Albumin 2.5 L Globulin 3.8 Albumin/Globulin Ratio 0.7 L Medical Necessity - Tobacco Use Smoking Status: Never smoker Route of nutrition/ use of supplements: [] Nutritional Intake: [] IV Site: [] Morejon Catheter: [] - Assessment/Plan Antibiotics: [] Assessment/Plan: [] Active and Suspected Problems Fever with exanthematous rash (Acute) Drug rash - elevated eos. Stopped ceftriaxone. Rash improved today. Last vanc dose was yesterday AM. Discussed options with him, his daughter, and Dr. Gaines. Will try another dose of vanc; if he tolerates it, plan will be for d/c home on iv vanc and po doxy. Vanc to stop 10/31, doxy to continue after that. If rash worsens after vanc, would have him go home on po linezolid 600mg bid with stop date 10/31 and po doxy 100mg bid. R knee PJI with thigh abscess - s/p TKA 08/15/[address] Vaz. Aspiration 09/15 with 28k wbc and 98%N. Taken back to [place] 09/19 for I&D, poly exchange and abscess drainage. Fluid and surg cx finalized as neg. Plan is for him to complete 6 week total course of iv abx then residential po abx. Stop date for iv abx will be 10/31/17. Weekly bmp, cbc, and vanc trough. Will follow, d/w primary team. ID follow-up around 10/31. Rx written for iv vanc and labs.
--- NOTE | 2017-10-12 12:23 | NURSING ---
Checked on pt and states the redness has increased in legs, chest and arms. Medication stopped and Dr. Mohan was paged, left message with answering service to call nurse.
[2017-10-12] MEDS: DiphenhydrAMINE 50 MG/ML Syringe IV (12:47)
[2017-10-12 14:12] VITALS: BP 122/61; PULSE 84; RESP 18; TEMP 36.9; O2SAT 97
[2017-10-12] MEDS: Linezolid 600 MG Tablet PO (14:14)
--- NOTE | 2017-10-12 14:18 | PCM.DC ---
- Discharge Diagnoses Current Active Problems: Current Active and Chronic Problems Fever with exanthematous rash (Acute) You will use the following diet at home:: Regular Your food should be the consistency of: Regular Your liquids should be the consistency of: Regular/Thin Discharge Activity: Return to Normal Activity Call your doctor if your incision/area has: Increased Pain/ Swelling, Increased Redness Call your doctor if you observe: Fever of 101 or Higher Allergies/Adverse Reactions: Allergies Sulfa (Sulfonamide Antibiotics) Allergy (Verified 10/09/17 10:25) Unknown vancomycin Allergy (Verified 10/12/17 12:41) Fever and skin rash Medications to take at Discharge Acetaminophen [Tylenol] 1,000 mg PO PRN PRN 08/24/17 Ferrous Sulfate [Iron] 325 mg PO BID #60 tab 08/26/17 Docusate Sodium [Colace] 100 mg PO BID 09/18/17 Warfarin [Coumadin] 8 mg PO DAILY 10/09/17 Doxycycline 100 mg PO BID 30 Days #60 cap 10/12/17 Linezolid [Zyvox] 600 mg PO BID #40 tab 10/12/17 The following prescriptions were given: Doxycycline 100 mg PO BID 30 Days #60 cap Linezolid [Zyvox] 600 mg PO BID #40 tab Primary Care Physician: Dc Glez MD [Primary Care Provider] - Please follow up with your Primary Care Physician in: In 3-5 days Test Results: Test results from this visit will be discussed in further detail at your follow-up appointment, if applicable. Please Follow Up With: Shane Estrada MD When: On or after 10/31/2017
--- NOTE | 2017-10-12 14:23 | PCM.DC.SUM ---
Discharge Date and Diagnosis - Problem List Patient Problems: Active and Suspected Problems Fever with exanthematous rash (Acute) Date of Admission: 10/09/17 Date of Discharge: 10/12/17 - Primary Discharge Diagnosis Active and Suspected Problems Fever with exanthematous rash (Acute) - Secondary Discharge Diagnosis Chronic Problems Elevated LFTs (Chronic) Anemia (Chronic) Status post total right knee replacement (Chronic) History of pulmonary embolism (Chronic) History of DVT (deep vein thrombosis) (Chronic) Hospital Course and Treatment Imaging Results: None Consults: Infectious Disease Operations: None Procedures: None Summary of Care Provided: HPI: The patient is a 56 year old M with history of right TKR in July by Dr. Vaz which was complicated by right knee infection status post washout and found to have infectious [id number] but did not involve the joint and then Pseudomonas UTI for which she was admitted in August 2017 came to ER for fever with rash for 1 day. As per the patient, his temperature at home was 103 Fahrenheit but in ER, temperature 100 Fahrenheit, 100.6, heart rate 9200/min, no hypotension, no tachypnea or hypoxia. WBC count is 4.1 thousand. INR 1.8 Patient has an erythematous rash mainly over trunk, both front and back and neck and little bit on thighs but his right operated knee does not have increased swelling or pain but is doing good with crutches. Lactic acid normal. UA negative Vital Signs - 24 hr Temp Pulse Resp BP Pulse Ox 10/12/17 14:12 98.5 F 84 18 122/61 H 97 10/12/17 08:37 98.3 F 91 18 112/72 98 10/12/17 06:53 94 10/12/17 06:00 77 10/12/17 02:00 99.3 F H 82 16 118/64 94 10/11/17 22:00 77 10/11/17 20:03 98.2 F 77 18 102/59 L 97 10/11/17 17:18 98.4 F 10/11/17 16:12 99.9 F H General: Alert, Oriented x3, Cooperative, No apparent distress HEENT: Atraumatic, EOMI, Normocephalic Oral: Moist Mucosa Neck: Supple, No JVD Lungs: Clear to auscultation, Normal air movement, No rhonchi, No wheeze, No rales Cardiovascular: Regular rate, Regular Rhythm, Normal S1, Normal S2, No murmurs Abdomen: Soft, Non Tender, Non-Distended, No Hepato-splenomegaly Extremities: No edema, Capillary Refill Less than 3 Seconds Skin: - - total body, blanching, confluent rash Psych/Mental Status: Normal Affect, Appropriate Hospital Course: 1. S/p RTK/abscess formation s/p I&D/Drug rash - He was started on rocephin and vancomycin via PICC which he tolerated for 3 weeks before this drug rash emerged. Ultimately the rash was d/t the vancomycin as his rocephin was held on Tuesday and he continued to have the rash. Vanc was held yesterday and restarted today and his rash intensified within 10 minutes. He will transition to zyvox 600mg PO BID for 20 days with a stop date on 10/31 and he will continue with doxy for 30 days. He will need weekly CBC to follow his platelets while on the zyvox. Will hold off on a prednisone taper as he was feeling ok while the vancomycin was off. He will follow-up with his PCP who can restart the prednisone of needed. 2. His other diagnoses were evaluated and continued where appropriate. Discharge Activity: Return to Normal Activity Call your doctor if your incision/area has: Increased Pain/ Swelling, Increased Redness Call your doctor if you observe: Fever of 101 or Higher Home Medications: Medications to take at Discharge Acetaminophen [Tylenol] 1,000 mg PO PRN PRN 08/24/17 Ferrous Sulfate [Iron] 325 mg PO BID #60 tab 08/26/17 Docusate Sodium [Colace] 100 mg PO BID 09/18/17 Warfarin [Coumadin] 8 mg PO DAILY 10/09/17 Doxycycline 100 mg PO BID 30 Days #60 cap 10/12/17 Linezolid [Zyvox] 600 mg PO BID #40 tab 10/12/17 Following Prescrptions Were Given to Patient: Doxycycline 100 mg PO BID 30 Days #60 cap Linezolid [Zyvox] 600 mg PO BID #40 tab Primary Care Physician: Dc Glez MD [Primary Care Provider] - Please follow up with your Primary Care Physician in: In 3-5 days Please Follow Up With: Shane Estraad MD When: On or after 10/31/2017 Additional Instructions: Weekly CBC until seen by Dr. Estrada Disposition: Home Minutes spent on discharge:: 35 Patient Condition:: Good Medical Necessity - Tobacco Use Smoking Status: Never smoker Meaningful Use Info Meaningful Use Diagnoses (Choose all that apply): None applicable Code Visit Inpatient E&M: 59658 Disch Hosp
[2017-10-12 15:57] VITALS: PULSE 84
--- NOTE | 2017-10-12 16:01 | CASEMGMT ---
Patient is discharging home on oral antibiotics and would like outpatient therapy. JG CASTANO called [facility] and requested order for outpatient therapy be sent to [facility] in [place], patient preferred facility for outpatient therapy.
--- NOTE | 2017-10-13 16:06 | CASEMGMT ---
JG CASTANO Discharge Follow-up Phone Call: LACE: 9 Strata: 3 Call Date: 10/13/17 Discharge Date: 10/12/17 Time of Call: 1605 Duration: 3 min Admitting Diagnosis: S/P RTK, Cellulitis of RLE, Febrile illness JG CASTANO completed follow up phone call after recent hospitalization. Patient states that he is doing well but still has rash. Patient states that he has not received [facility] from [facility]. JG CASTANO instructed patient to call [facility] or [facility] to follow-up regarding outpatient therapy. Patient questioned what he should do regarding his PICC line. JG CASTANO instructed patient to call Dr. Estrada regard PICC line and to have daughter, who is RN, continue flushes and PICC line care.
== END 2017-10-12 16:39 | disposition home or self-care (01) | DRG 607 ==
LOC: ED 10:55 → MS3 13:36
PROVIDERS: Admitting Provider Internal Medicine; Emergency Provider Emergency Medicine; Family Provider Family Medicine; PCP Family Medicine; Visit Provider Family Medicine
DX: L27.0 Generalized skin eruption due to drugs and medicaments taken internally (principal); T36.8X5A Adverse effect of other systemic antibiotics, initial encounter; Z86.711 Personal history of pulmonary embolism; Z79.01 Long term (current) use of anticoagulants; Z96.651 Presence of right artificial knee joint
CPT/HCPCS: 36415; 71045; 73564; 80048; 80053; 80076; 80202; 81001; 83605; 85025; 85610; 85652; 86140; 87040; 87641; 93005; 97110; 97116; 97162; 97166; 97802; 99281; J7040; J7050; A4216; J3490

== ENCOUNTER 2017-10-28 18:48 | Inpatient (IN) | payer OTHER, SELFPAY ==
[2017-10-28] VITALS (12 sets, daily range): BP systolic 82–125; BP diastolic 38–79; PULSE 83–118; RESP 12–24; TEMP 36.7–39.3; O2SAT 87–99; BMI 24.6
--- NOTE | 2017-10-28 19:51 | EKG12_ITS ---
Test Reason : Blood Pressure : / mmHG Vent. Rate : 122 BPM Atrial Rate : 122 BPM P-R Int : 136 ms QRS Dur : 084 ms QT Int : 318 ms P-R-T Axes : 046 -03 054 degrees QTc Int : 453 ms Sinus tachycardia Low voltage QRS Cannot rule out Anterior infarct , age undetermined Abnormal ECG Confirmed by JESS BERMUDEZ ([id number]), brands editor MIAN GRAYSON ([id number]) on 11/01/2017 2:21:57 PM Referred By: Chas Vaz Confirmed By:JESS BERMUDEZ
[2017-10-28 20:35] LABS: ALB/GLOB Ratio 0.3 RATIO (0.9-2.4); AST(SGOT) 694 U/L (15-37); Alanine Aminotransfer ALT/SGPT 485 U/L (16-61); Albumin, Serum 1.7 g/dL (3.2-5.0); Alkaline Phosphatase 770 U/L (45-117); Anion Gap 9 (5-15); BUN 34 mg/dL (7-18); CPK Total, Creatine Kinase 22 U/L (39-308); Calcium,Total 7.9 mg/dL (8.5-10.1); Chloride 102 mmol/L (98-107); Creatinine, Serum 2.27 mg/dL (0.70-1.30); EST Glomerular Filtration Rate 32 mL/min (>60); Est Glom Filt Rate - Afr Amer 39 mL/min (>60); Estimated Creatinine Clearance 41.74 ml/min; Globulin 5.7 g/dL (2.2-4.2); Glucose 77 mg/dL (74-106); Potassium 4.7 mmol/L (3.5-5.1); Protein, Total 7.4 g/dL (6.4-8.2); Sodium Level 138 mmol/L (136-145)
[2017-10-28] MEDS: Acetaminophen 500 MG Tablet 1000 MG PO (20:39)
[2017-10-28] MEDS: 0.9% Normal Saline 1,000 ML 999 ML IV ×2 (20:39→22:42)
[2017-10-28 20:46] LABS: Hematocrit 29.1 % (40-54); Hemoglobin 9.5 g/dl (13.0-16.5); Mean Corp Hgb Conc 32.6 g/gl (32-36); Mean Corpuscular Volume 79.7 fL (80-94); Mean Platelet Vol. 10.7 fl (6.2-12.0); Platelet Count 166 K/mm3 (150-450); RBC Distribution Width SD 55.2 fl (35.1-43.9); Red Blood Count 3.65 M/mm3 (4.6-6.2); White Blood Count 23.2 K/mm3 (4.4-11.0)
[2017-10-28 20:47] LABS: Differential Indicated MANUAL DIFF; Lactic Acid 2.1 mmol/L (0.4-2.0); POSITIVE COUNT NO; POSITIVE DIFFERENTIAL YES; POSITIVE MORPHOLOGY YES
--- NOTE | 2017-10-28 20:47 | ED.RN ---
dr rubio notified of lactic acid results
[2017-10-28 20:53] LABS: Mucous, Urine 0 SEEN /hpf (<or=2+)
[2017-10-28] MEDS: 0.9% Normal Saline 1,000 ML IV.SOLN. 1000 ML IV (20:55)
[2017-10-28 20:58] LABS: International Normalized Ratio > 19.5; Partial Thromboplast Time 174.8 Seconds (24.1-36.2); Prothrombin Time (Protime)PT. > 120.0 SECONDS (11.7-14.9)
--- NOTE | 2017-10-28 21:04 | ED.RN ---
abnormal co ag lab results given to dr rubio
[2017-10-28 21:07] LABS: Color, Urine Amber (Yellow); Glucose, Dipstick Normal (Normal); Ketone-Dipstick 5 mg/dl (Negative); Leukocyte Esterase-Dipstick 25 /ul (Negative); Nitrite-Dipstick Negative (Negative); Occult Blood-Urine 150 /ul (Negative); Protein-Dipstick 30 mg/dl (Negative); Urine Bilirubin Dipstick Negative (Negative); Urine Clarity Clear (Clear); Urine Urobilinogen 4 mg/dl (Normal)
[2017-10-28 21:15] LABS: White Blood Cells 5-10 SEEN /hpf (0-5)
[2017-10-28 21:16] LABS: Red Blood Cells-Urine 10-25 SEEN /hpf (0-5)
[2017-10-28 21:17] LABS: Bacteria 2+ /hpf (None Seen); Squamous Epithelial Cells - UA 0-5 SEEN /hpf (0-5)
[2017-10-28 21:20] LABS: Eosinophil 23 % (0-5); Lymphocyte 19 % (19-41); Monocyte 1 % (0-10); Neutrophil-Band 1 % (0-5); Neutrophil-Segmented 56 % (47-70); Total Cells Counted 100 (MANUAL DIFF)
[2017-10-28 21:59] LABS: Absolute Lymphocyte Count 4.41 X10^3/ul (0.83-4.51); Absolute Neutrophil Count 13.2 X10^3/uL (2.0-7.7); Lymphocyte # 4.41 X10^3/ul (4.0); Neutrophil # 13.22 X10^3/uL (2.7-7.7)
[2017-10-28 22:00] LABS: Anisocytosis 2+; Platelet Estimate ADEQUATE (ADEQ)
[2017-10-28 22:01] LABS: Hypochromasia 2+; Microcytosis 1+
[2017-10-28 22:04] LABS: Differential Comment SCANNED; Smudge Cells 1+
[2017-10-28 22:13] LABS: Prothrombin Time (Protime)PT. > 120.0 SECONDS (11.7-14.9)
[2017-10-28 22:14] LABS: International Normalized Ratio > 19.5; Partial Thromboplast Time 184.5 Seconds (24.1-36.2)
--- NOTE | 2017-10-28 23:25 | ED.VISSUMM ---
- ER Visit Summary Date of Service: 10/28/17 Chief Complaint: Fever History of Present Illness: The patient is a [address] Dc Holt, Dr. Garcia, and Dr. Mohan. The patient had a right knee replacement August 15. He was admitted to the hospital August 24 with a pseudomonal UTI. He was taken back to the operating room September 07 and was found that his joint was not infected. However, he did have an abscess in his right thigh. He had a PICC line placed and was given ceftriaxone and vein through the PICC line. On October 09 he was admitted to the hospital with a fever and rash. Ultimately it was found that he was allergic to vancomycin and he was discharged on Zyvox and doxycycline. The Zyvox was stopped [address] 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 Patient developed a fever again today. Family reports that he has been more lethargic for the past 5 days. They report that his face and legs are more swollen. His skin is peeling. His tongue is swollen and bleeding. He has had a fever to 103.8? at home. He has also got generalized weakness. He has had nausea on and off. No emesis. Patient denies a sore throat or cough. No chest pain or shortness of breath. No abdominal pain, nausea, vomiting, diarrhea, melena, or hematochezia. No dysuria frequency. No headache. Physical Examination: Vitals: 102.7, 111/67, 118, 12, 92% on room air which is not hypoxic. General: Well-nourished and well-developed. Head: Normocephalic atraumatic. Neck: Supple, no lymphadenopathy. No JVD. Nontender. Cardiovascular: Tachycardic regular rhythm with a 2 out of 6 systolic murmur.. Respiratory: No respiratory distress. Clear to auscultation bilaterally. Abdominal: Soft, nontender, nondistended, normal bowel sounds. No guarding, rebound, or peritoneal signs. Back: Nontender. Extremities: Nontender, 3+ pitting edema of his lower extremities bilaterally. Right total knee arthroplasty incision is clean, dry and intact. There is no erythema or warmth here. He has good range of motion of his knee without any difficulty. Skin: Flaky, erythematous rash that is scattered over his face, trunk, and extremities. He has thickened skin on his face. He has no induration or fluctuance to the right thigh. It is nontender.. Neurologic: Alert and oriented ?3. Cranial nerves II through XII are intact. Normal strength and sensation. Psych: Normal affect. Test Results: EKG is sinus tach at [address] changes. CBC is remarkable for a white count of 23.2, H&H of 9.5 and 29.1. Chem-7 is more for BUN of 37 and creatinine of 2.27. Creatinine previously had range 0.560.98. LFTs marked for an Total bili of 2.6, alk phos of 770, ALT of 45, AST of 694, albumin 1.7, globulin of 5.7. INR is greater than 19.5 and PTT is greater than 174.8. This is repeated due to the concern for possible short drop. These numbers are accurate. UA is remarkable for 5-10 white blood cells, 10-25 red blood cells, and 2+ bacteria. This was sent for culture. CPK is 22. Lactic acid is 2.1. Clinical Impression(s) from Imaging Studies Chest X-Ray 10/28/17 19:51 IMPRESSION: Decreased inspiratory effort with bibasilar atelectasis. The study is otherwise unchanged. Electronically Signed: Frantz Paula DO at 20:07 EDT Tel [phone], Service support , Lower Extremity CT 10/28/17 19:52 IMPRESSION: 1. Right total knee arthroplasty. 2. Abscess which appears to involve the suprapatellar space and extends outward along the vastus medialis musculature. There is associated periosteal reaction on the femur without evidence of fracture or cortical disruption. Electronically Signed: Frantz Paula DO at 21:26 EDT Tel [phone], Service support , Gallbladder Ultrasound 10/28/17 20:42 IMPRESSION: 1. Mild hepatomegaly. This appears unchanged from prior study. 2. No evidence for gallbladder and biliary ductal abnormality. 3. Stable column of Hector within the right kidney. Electronically Signed: Frantz Paula DO at 21:32 EDT Tel [phone], Service support , Emergency Department Course and Treatment: Patient was given 3 L of normal saline the. This is greater than 30 cc/kg bolus. He is given Tylenol for the fever. He is given FFP and vitamin K for the coagulopathy. He was given Zosyn for the infection. He was started on Levophed IV through his PICC line. Treatment Plan: The patient was discussed with Dr. Wilson, Dr. Garcia, and Dr. Johansen. He will be admitted to the hospital for further evaluation and treatment. Family does understand that if he does not have improving liver function that he may need to be transferred to see a user support analyst supervisor. They also understand that if he needs go to the operating room that he may require transfer to a tertiary care center for this. Disposition: Admitted in critical condition Impression: 1. Septic shock. 2. Acute renal insufficiency. 3. Elevated liver enzymes. 4. Coagulopathy. 5. Right thigh abscess. 6. UTI. 7. Critical care time 30 minutes. This note was generated with [employer] dictation software. It may contain incorrect words, spelling, and punctuation that were not noted in review of the chart prior to signing ED Disposition - Plan for ED Patient: Chief Complaint: Fever Referrals: Dc Glez MD [Primary Care Provider] -
--- NOTE | 2017-10-28 23:32 | ED.DCSUM_ITS ---
- ER Visit Summary Date of Service: 10/28/17 Chief Complaint: Fever History of Present Illness: The patient is a [address] Dc Holt, Dr. Garcia, and Dr. Mohan. The patient had a right knee replacement August 15. He was admitted to the hospital August 24 with a pseudomonal UTI. He was taken back to the operating room September 07 and was found that his joint was not infected. However, he did have an abscess in his right thigh. He had a PICC line placed and was given ceftriaxone and vein through the PICC line. On October 09 he was admitted to the hospital with a fever and rash. Ultimately it was found that he was allergic to vancomycin and he was discharged on Zyvox and doxycycline. The Zyvox was stopped [address] 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 Patient developed a fever again today. Family reports that he has been more lethargic for the past 5 days. They report that his face and legs are more swollen. His skin is peeling. His tongue is swollen and bleeding. He has had a fever to 103.8? at home. He has also got generalized weakness. He has had nausea on and off. No emesis. Patient denies a sore throat or cough. No chest pain or shortness of breath. No abdominal pain, nausea, vomiting, diarrhea, melena, or hematochezia. No dysuria frequency. No headache. Physical Examination: Vitals: 102.7, 111/67, 118, 12, 92% on room air which is not hypoxic. General: Well-nourished and well-developed. Head: Normocephalic atraumatic. Neck: Supple, no lymphadenopathy. No JVD. Nontender. Cardiovascular: Tachycardic regular rhythm with a 2 out of 6 systolic murmur.. Respiratory: No respiratory distress. Clear to auscultation bilaterally. Abdominal: Soft, nontender, nondistended, normal bowel sounds. No guarding, rebound, or peritoneal signs. Back: Nontender. Extremities: Nontender, 3+ pitting edema of his lower extremities bilaterally. Right total knee arthroplasty incision is clean, dry and intact. There is no erythema or warmth here. He has good range of motion of his knee without any difficulty. Skin: Flaky, erythematous rash that is scattered over his face, trunk, and extremities. He has thickened skin on his face. He has no induration or fluctuance to the right thigh. It is nontender.. Neurologic: Alert and oriented ?3. Cranial nerves II through XII are intact. Normal strength and sensation. Psych: Normal affect. Test Results: EKG is sinus tach at [address] changes. CBC is remarkable for a white count of 23.2, H&H of 9.5 and 29.1. Chem-7 is more for BUN of 37 and creatinine of 2.27. Creatinine previously had range 0.560.98. LFTs marked for an Total bili of 2.6, alk phos of 770, ALT of 45, AST of 694, albumin 1.7, globulin of 5.7. INR is greater than 19.5 and PTT is greater than 174.8. This is repeated due to the concern for possible short drop. These numbers are accurate. UA is remarkable for 5-10 white blood cells, 10-25 red blood cells, and 2+ bacteria. This was sent for culture. CPK is 22. Lactic acid is 2.1. Clinical Impression(s) from Imaging Studies Chest X-Ray 10/28/17 19:51 IMPRESSION: Decreased inspiratory effort with bibasilar atelectasis. The study is otherwise unchanged. Electronically Signed: Frantz Paula DO at 20:07 EDT Tel [phone], Service support , Lower Extremity CT 10/28/17 19:52 IMPRESSION: 1. Right total knee arthroplasty. 2. Abscess which appears to involve the suprapatellar space and extends outward along the vastus medialis musculature. There is associated periosteal reaction on the femur without evidence of fracture or cortical disruption. Electronically Signed: Frantz Paula DO at 21:26 EDT Tel [phone], Service support , Gallbladder Ultrasound 10/28/17 20:42 IMPRESSION: 1. Mild hepatomegaly. This appears unchanged from prior study. 2. No evidence for gallbladder and biliary ductal abnormality. 3. Stable column of Hector within the right kidney. Electronically Signed: Frantz Paula DO at 21:32 EDT Tel [phone], Service support , Emergency Department Course and Treatment: Patient was given 3 L of normal saline the. This is greater than 30 cc/kg bolus. He is given Tylenol for the fever. He is given FFP and vitamin K for the coagulopathy. He was given Zosyn for the infection. He was started on Levophed IV through his PICC line. Treatment Plan: The patient was discussed with Dr. Wilson, Dr. Garcia, and Dr. Johansen. He will be admitted to the hospital for further evaluation and treatment. Family does understand that if he does not have improving liver function that he may need to be transferred to see a cdl flatbed truck driver. They also understand that if he needs go to the operating room that he may require transfer to a tertiary care center for this. Disposition: Admitted in critical condition Impression: 1. Septic shock. 2. Acute renal insufficiency. 3. Elevated liver enzymes. 4. Coagulopathy. 5. Right thigh abscess. 6. UTI. 7. Critical care time 30 minutes. This note was generated with [employer] dictation software. It may contain incorrect words, spelling, and punctuation that were not noted in review of the chart prior to signing ED Disposition - Plan for ED Patient: Chief Complaint: Fever Referrals: Dc Glez MD [Primary Care Provider] -
--- NOTE | 2017-10-28 23:42 | PCM.HP.STD ---
Problem List (1) Septic shock Status: Acute (2) Coagulopathy Status: Acute (3) DAYNA (acute kidney injury) Status: Acute (4) Abscess of right thigh Status: Acute (5) Elevated LFTs Status: Chronic History of Present Illness Date of Admission: 10/28/17 Chief Complaint: Fever and lethargy The patient is a 57 year old male w/ h/o factor V leiden, DVT on coumadin, and right knee replacement admitted for septic shock secondary to abscess of right thigh. He is a poor historian and history provided by his daughter. He has extensive history of hospitalization. He was admitted for pseudomonal UTI in August and was taken back to the OR for joint washout which was not infected. He had a PICC line placed for doxycycline treatment of abscess. He had an allergy rejection to vancomycin. 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 He has occasional fever despite being on antibiotic. He has been more confused and lethargic today compared to other days. He also spiked a fever to 103. Family took him to the ED for further workup. Past Medical History Past Medical History (Chronic Problems): Chronic Problems Elevated LFTs (Chronic) Anemia (Chronic) Status post total right knee replacement (Chronic) History of pulmonary embolism (Chronic) History of DVT (deep vein thrombosis) (Chronic) Allergies Sulfa (Sulfonamide Antibiotics) Allergy (Verified 10/09/17 10:25) Unknown vancomycin Allergy (Verified 10/12/17 12:41) Fever and skin rash ceftriaxone Adverse Reaction (Verified 10/28/17 18:59) Rash linezolid Adverse Reaction (Verified 10/28/17 18:59) Rash Home Medications: Ambulatory Orders Medication Instructions Recorded Acetaminophen [Tylenol] 1,000 mg PO PRN PRN 08/24/17 Ferrous Sulfate [Iron] 325 mg PO BID #60 tab 08/26/17 Docusate Sodium [Colace] 100 mg PO BID 09/18/17 Warfarin [Coumadin] 8 mg PO DAILY 10/09/17 Doxycycline 100 mg PO BID 30 Days #60 cap 10/12/17 Surgical History: total knee arthroplasty Psychiatric History: No pertinent psych hx Lives: With Family Smoking Status: Never smoker Alcohol: None Drugs: None - *Family History Maternal History Items: No pertinent history Paternal History Items: No pertinent history Review of Systems Constitutional: Reports: Chills, Fever. Denies: Weight Change HEENT: Denies: Head Aches, Sinus Congestion, Sinus Drainage Cardiovascular: Denies: Chest Pain, Palpitations Respiratory: Denies: Cough, Shortness of breath at rest, Sputum production Gastrointestinal: Denies: Abdominal Pain, Nausea, Vomiting Genitourinary: Denies: Dysuria Musculoskeletal: Denies: Joint Pain, Joint Tenderness Skin: Reports: Rash. Denies: Wounds Neurological: Denies: Numbness, Tingling, Focal weakness Psychiatric: Denies: Anxiety, Depression, Homicidal Ideations, Suicidal Ideations Hematologic/ Lymphatic: Reports: Easy Bruising, Easy Bleeding VTE Information - Inpt Only VTE Present on Admission: Yes VTE Mechan Device Prophylaxis: SCD's VTE Pharm Prophylaxis ordered?: No Patient Problems: Active and Suspected Problems Septic shock (Acute) Coagulopathy (Acute) DAYNA (acute kidney injury) (Acute) Abscess of right thigh (Acute) - Physical Exam General: Cooperative, Confused, Lethargic HEENT: Atraumatic, PERRLA, EOMI, Normocephalic Neck: Supple, No JVD, Negative Carotid Bruits Lungs: Clear to auscultation, Normal air movement Cardiovascular: Regular rate, No murmurs Abdomen: Bowel Sounds Present, Soft, Non Tender Extremities: Capillary Refill Less than 3 Seconds, Edema - 3+ edema, - - No noticable fluctuance or induration of right thigh Skin: Rash Present Musculoskeletal: No Tenderness to Palpation of Joints or Extremities Neurological: Cranial nerves II-XII grossly intact Psych/Mental Status: Appropriate Vital Signs Temp Pulse Resp BP Pulse Ox 98.1 F 100 18 90/48 L 96 10/28/17 23:27 10/28/17 23:27 10/28/17 23:27 10/28/17 23:27 10/28/17 23:27 Oxygen Flow Rate (L/min) 3 Oxygen Delivery Method Nasal Cannula Weight: 87 kg Body Mass Index (BMI) 24.6 Laboratory Tests Past 24 Hrs 10/28/17 10/28/17 10/28/17 19:15 19:15 19:15 WBC 23.2 H RBC 3.65 L Hgb 9.5 L Hct 29.1 L MCV 79.7 L MCH 26.0 L MCHC 32.6 RDW 19.0 H RDW Differential 55.2 H Plt Count 166 MPV 10.7 Neut % (Auto) Not Reportable Absolute Neuts (auto) 13.2 H Absolute Lymphs (auto) 4.41 Total Counted 100 Neutrophils % (Manual) 56 Band Neutrophils % 1 Lymphocytes % (Manual) 19 Monocytes % (Manual) 1 Eosinophils % (Manual) 23 H Differential Comment SCANNED Diff Path Review May foll Smudge Cells 1+ H Platelet Estimate ADEQUATE Hypochromasia 2+ Anisocytosis 2+ Microcytosis 1+ PT > 120.0 H INR > 19.5 H* APTT 174.8 H* Sodium 138 Potassium 4.7 Chloride 102 Carbon Dioxide 27.0 Anion Gap 9 BUN 34 H Creatinine 2.27 H Estim Creat Clear Calc 41.74 Est GFR (MDRD) Af Amer 39 L Est GFR (MDRD) Non-Af 32 L BUN/Creatinine Ratio 15.0 Glucose 77 Lactic Acid Calcium 7.9 L Total Bilirubin 2.60 H AST 694 H ALT 485 H Alkaline Phosphatase 770 H Total Creatine Kinase 22 L Total Protein 7.4 Albumin 1.7 L Globulin 5.7 H Albumin/Globulin Ratio 0.3 L Urine Color Urine Clarity Urine pH Ur Specific [place] Urine Protein Urine Glucose (UA) Urine Ketones Urine Occult Blood Urine Nitrite Urine Bilirubin Urine Urobilinogen Ur Leukocyte Esterase Urine RBC Urine WBC Ur Squamous Epith Cells Urine Bacteria Urine Mucus Blood Type Antibody Screen 10/28/17 10/28/17 10/28/17 19:15 20:40 21:37 WBC RBC Hgb Hct MCV MCH MCHC RDW RDW Differential Plt Count MPV Neut % (Auto) Absolute Neuts (auto) Absolute Lymphs (auto) Total Counted Neutrophils % (Manual) Band Neutrophils % Lymphocytes % (Manual) Monocytes % (Manual) Eosinophils % (Manual) Differential Comment Diff Path Review Smudge Cells Platelet Estimate Hypochromasia Anisocytosis Microcytosis PT > 120.0 H INR > 19.5 H* APTT 184.5 H* Sodium Potassium Chloride Carbon Dioxide Anion Gap BUN Creatinine Estim Creat Clear Calc Est GFR (MDRD) Af Amer Est GFR (MDRD) Non-Af BUN/Creatinine Ratio Glucose Lactic Acid 2.1 H Calcium Total Bilirubin AST ALT Alkaline Phosphatase Total Creatine Kinase Total Protein Albumin Globulin Albumin/Globulin Ratio Urine Color [place] Urine Clarity Clear Urine pH 7.0 Ur Specific [place] 1.010 Urine Protein 30 H Urine Glucose (UA) Normal Urine Ketones 5 H Urine Occult Blood 150 H Urine Nitrite Negative Urine Bilirubin Negative Urine Urobilinogen 4 H Ur Leukocyte Esterase 25 H Urine RBC 10-25 SEEN Urine WBC 5-10 SEEN Ur Squamous Epith Cells 0-5 SEEN Urine Bacteria 2+ Urine Mucus 0 SEEN Blood Type Antibody Screen 10/28/17 10/28/17 10/28/17 21:37 21:37 21:37 WBC RBC Hgb Hct MCV MCH MCHC RDW RDW Differential Plt Count MPV Neut % (Auto) Absolute Neuts (auto) Absolute Lymphs (auto) Total Counted Neutrophils % (Manual) Band Neutrophils % Lymphocytes % (Manual) Monocytes % (Manual) Eosinophils % (Manual) Differential Comment Diff Path Review Smudge Cells Platelet Estimate Hypochromasia Anisocytosis Microcytosis PT INR APTT Sodium Potassium Chloride Carbon Dioxide Anion Gap BUN Creatinine Estim Creat Clear Calc Est GFR (MDRD) Af Amer Est GFR (MDRD) Non-Af BUN/Creatinine Ratio Glucose Lactic Acid Calcium Total Bilirubin AST ALT Alkaline Phosphatase Total Creatine Kinase Total Protein Albumin Globulin Albumin/Globulin Ratio Urine Color Urine Clarity Urine pH Ur Specific [place] Urine Protein Urine Glucose (UA) Urine Ketones Urine Occult Blood Urine Nitrite Urine Bilirubin Urine Urobilinogen Ur Leukocyte Esterase Urine RBC Urine WBC Ur Squamous Epith Cells Urine Bacteria Urine Mucus Blood Type TNP A POSITIVE Antibody Screen Pending Assessment/Plan All Active Problems Fever with exanthematous rash (Acute) Septic shock (Acute) Coagulopathy (Acute) DAYNA (acute kidney injury) (Acute) Abscess of right thigh (Acute) 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 knee joint (Resolved) Atrial fibrillation with RVR (Resolved) Acute cystitis (Resolved) Severe sepsis (Resolved) 57 year old male w/ h/o factor V leiden, DVT on coumadin, and right knee replacement admitted for septic shock secondary to abscess of right thigh. 1) Septic shock secondary to abscess of right thigh: Cultures pending. Aggressive fluid resuscitation. C/w zosyn and vancomycin. Consulted architecture manager and ID. 2) Coagulopathy: Most likely secondary to coumadin. INR 19 S/p Vit K. No acute bleeding. Follow H and H. Hold coumadin. 3) DAYNA: Most likely secondary perfusion mediated. UA disclosed blood but likely secondary to coagulopathy. Hydration. Supportive care, ie avoid nephrotoxic drugs, renal dose meds. Serial labs. 4) Transaminitis: Total bili: 2.6, alk phos 770, AST 694, ALT 485 Probably secondary to shock liver? Will get LDH, heptatis panel. Consider transfer if worsening.
[2017-10-29] VITALS (40 sets, daily range): BP systolic 72–136; BP diastolic 45–99; PULSE 89–134; RESP 13–28; TEMP 37.5–39.7; O2SAT 91–100; BMI 23.6; BMI 23.7
[2017-10-29 00:10] LABS: Reflex Lactate? Y
[2017-10-29 01:08] LABS: Lactic Acid 1.8 mmol/L (0.4-2.0)
[2017-10-29 04:06] LABS: Red Blood Cells-Urine 0 SEEN /hpf (0-5)
[2017-10-29 04:12] LABS: Color, Urine YELLOW (Yellow); Glucose, Dipstick Normal (Normal); Ketone-Dipstick Negative (Negative); Protein-Dipstick 30 mg/dl (Negative); Specific Gravity, Urine 1.015 (1.002-1.030); Urine Bilirubin Dipstick Negative (Negative); Urine Clarity Clear (Clear); Urine Urobilinogen 1 mg/dl (Normal)
[2017-10-29 04:13] LABS: Leukocyte Esterase-Dipstick 25 /ul (Negative); Nitrite-Dipstick Negative (Negative); Occult Blood-Urine 150 /ul (Negative)
[2017-10-29 04:14] LABS: Bacteria RARE /hpf (None Seen); Squamous Epithelial Cells - UA 0-5 SEEN /hpf (0-5); White Blood Cells 0-5 SEEN /hpf (0-5)
[2017-10-29 04:15] LABS: Amorphous Sediment R; Mucous, Urine 1+ /hpf (<or=2+)
[2017-10-29 05:10] LABS: International Normalized Ratio 2.9; Prothrombin Time (Protime)PT. 30.6 SECONDS (11.7-14.9)
[2017-10-29 05:11] LABS: Hematocrit 25.2 % (40-54); Hemoglobin 8.1 g/dl (13.0-16.5); Mean Corp Hgb Conc 32.1 g/gl (32-36); Mean Corpuscular Volume 80.8 fL (80-94); Mean Platelet Vol. 10.2 fl (6.2-12.0); Partial Thromboplast Time 63.7 Seconds (24.1-36.2); Platelet Count 152 K/mm3 (150-450); RBC Distribution Width CV 19.3 % (11.6-14.6); Red Blood Count 3.12 M/mm3 (4.6-6.2); Scan Indicated on CBC? Y/N NO; White Blood Count 19.3 K/mm3 (4.4-11.0)
[2017-10-29 05:25] LABS: Anion Gap 8 (5-15); BUN 34 mg/dL (7-18); BUN/Creat Ratio 14.5 RATIO (10-20); Calcium,Total 7.2 mg/dL (8.5-10.1); Chloride 106 mmol/L (98-107); Creatinine, Serum 2.35 mg/dL (0.70-1.30); EST Glomerular Filtration Rate 31 mL/min (>60); Est Glom Filt Rate - Afr Amer 37 mL/min (>60); Estimated Creatinine Clearance 40.32 ml/min; Glucose 76 mg/dL (74-106); Potassium 4.5 mmol/L (3.5-5.1); Sodium Level 142 mmol/L (136-145)
[2017-10-29 05:27] LABS: LDH 645 U/L (87-241)
[2017-10-29] MEDS: Piperacil/Tazobactam 3.375 GM/50 ML ML IV ×3 (06:06→21:38)
--- NOTE | 2017-10-29 06:30 | CON.PCM_ITS ---
Problem List (1) Fever with exanthematous rash Status: Acute (2) Septic shock Status: Acute (3) Coagulopathy Status: Acute (4) DAYNA (acute kidney injury) Status: Acute (5) Abscess of right thigh Status: Acute (6) 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 knee joint Status: Resolved (7) Elevated LFTs Status: Chronic (8) Status post total right knee replacement Status: Chronic (9) History of pulmonary embolism Status: Chronic (10) History of DVT (deep vein thrombosis) Status: Chronic (11) Factor V Leiden Status: Chronic Reason for Consult Date of Consultation: 10/29/17 Reason for Consultation: Septic shock History of Present Illness: The patient is a 57 year old M, with past medical history listed below, who presented to [facility] multiple times over the last 3 months following a knee replacement on August 15. This has been complicated by pseudomonal UTI and a thigh abscess. While at home, patient reportedly developed a fever to 103.8?F, swelling of the legs and face, desquamation and a bleeding, swollen tongue. On presentation to the emergency room, patient was noted to be febrile at 102.7? F with generalized weakness and 3+ pitting edema of the lower extremities. Patient's INR was unmeasurable and lactate was elevated at 2.1. Patient was also found to be in acute renal failure with a creatinine above 2 (baseline less than 1). CT scan of the leg showed a possible abscess with osteomyelitis. Over patient's ER course, patient became profoundly hypotensive. Patient was given 3 L of saline, vitamin K and Zosyn. Patient was initiated on Levophed through his PICC line. Patient was then transferred to the intensive care unit for further evaluation. While in the intensive care unit, patient has remained on Levophed therapy. Patient feels subjectively improved compared to previous. No bleeding for the mouth is been reported. Patient does report some discomfort in the leg, but no nausea or vomiting is been noted. Patient has been urinating without a [place] catheter. Patient has been receiving antibiotics through a PICC line, but this was complicated by a fever that was reportedly attributed to vancomycin. Patient was placed on doxycycline and Zyvox, but patient's primary care physician recently discontinued Zyvox therapy. Throughout patient's complicated course, no cultures have ever come back positive for bacterial or fungal elements. Patient is on anticoagulation secondary to history of DVT, PE and factor V Leiden. Patient denies any history of smoking, drugs or alcohol. Patient tends to minimize symptoms, but review of systems otherwise negative ?10 systems outside of rash and easy bruising/bleeding. Past Medical History Past Medical History (Chronic Problems): Chronic Problems Factor V Leiden (Chronic) Elevated LFTs (Chronic) Anemia (Chronic) Status post total right knee replacement (Chronic) History of pulmonary embolism (Chronic) History of DVT (deep vein thrombosis) (Chronic) Allergies Sulfa (Sulfonamide Antibiotics) Allergy (Verified 10/09/17 10:25) Unknown vancomycin Allergy (Verified 10/12/17 12:41) Fever and skin rash ceftriaxone Adverse Reaction (Verified 10/28/17 18:59) Rash linezolid Adverse Reaction (Verified 10/28/17 18:59) Rash Home Medications: Ambulatory Orders Medication Instructions Recorded Acetaminophen [Tylenol] 1,000 mg PO PRN PRN 08/24/17 Ferrous Sulfate [Iron] 325 mg PO BID #60 tab 08/26/17 Docusate Sodium [Colace] 100 mg PO BID 09/18/17 Warfarin [Coumadin] 8 mg PO DAILY 10/09/17 Doxycycline 100 mg PO BID 30 Days #60 cap 10/12/17 Surgical History: total knee arthroplasty Psychiatric History: No pertinent psych hx Lives: With Family Smoking Status: Never smoker Alcohol: None Drugs: None - *Family History Maternal History Items: No pertinent history Paternal History Items: No pertinent history Review of Systems Comment: See HPI Patient Problems: Active and Suspected Problems Septic shock (Acute) Coagulopathy (Acute) DAYNA (acute kidney injury) (Acute) Abscess of right thigh (Acute) Objective: CT of the leg was reviewed. Area of interest was noted. Chest x-ray was relatively unremarkable except for some basilar atelectasis. - Physical Exam General: Alert, Oriented x3, Cooperative, No apparent distress, - - Speaking in full sentences. Appears stated age. HEENT: Atraumatic, PERRLA, EOMI, Normocephalic, - - Slight scleral injection without icterus Oral: Dry Mucosa, - - Some ulcerations noted of the tongue. Bleeding has subsided. Neck: Supple, No JVD, No Nodes, Trachea Midline Lungs: Clear to auscultation, No rhonchi, No wheeze, No rales, - - Symmetric expansion. No dullness to percussion. Cardiovascular: Regular rate, Regular Rhythm, Normal S1, Normal S2, No murmurs, No rub noted, No Gallop Abdomen: Bowel Sounds Present, Soft, Non Tender, Non-Distended Extremities: No clubbing, No cyanosis, Diminished Peripheral Pulses, Edema - 3-4 + pitting edema bilateral lower extremities Skin: - - This quadrant of the rash noted throughout body. Some chapping of the lips without obvious ulceration or desquamation. Musculoskeletal: Tenderness - Palpation of the knee Lymphatic: No Cervical, Supraclavicular, or Inguinal Adenopathy Neurological: Cranial nerves II-XII grossly intact, Neuro grossly intact, Motor Exam 5/5 strength throughout Psych/Mental Status: Alert and oriented to time, place, person, mood and affect Vital Signs Temp Pulse Resp BP Pulse Ox 37.7 C H 98 21 H 106/69 96 10/29/17 06:00 10/29/17 06:00 10/29/17 06:00 10/29/17 06:00 10/29/17 06:00 Oxygen Flow Rate (L/min) 1 Oxygen Delivery Method Room Air Weight: 85.2 kg Body Mass Index (BMI) 23.6 Intake and Output for Last 24 Hours 10/27/17 10/28/17 10/29/17 23:59 23:59 23:59 Intake Total 766 / 766 Output Total 200 / 200 Balance 566 / 566 Laboratory Tests Past 24 Hrs 10/29/17 10/29/17 10/29/17 00:35 03:55 04:35 WBC RBC Hgb Hct MCV MCH MCHC RDW RDW Differential Plt Count MPV PT INR APTT Sodium 142 Potassium 4.5 Chloride 106 Carbon Dioxide 28.0 Anion Gap 8 BUN 34 H Creatinine 2.35 H Estim Creat Clear Calc 40.32 Est GFR (MDRD) Af Amer 37 L Est GFR (MDRD) Non-Af 31 L BUN/Creatinine Ratio 14.5 Glucose 76 Lactic Acid 1.8 Calcium 7.2 L Lactate Dehydrogenase Troponin I 0.024 Urine Color YELLOW Urine Clarity Clear Urine pH 5.0 Ur Specific [place] 1.015 Urine Protein 30 H Urine Glucose (UA) Normal Urine Ketones Negative Urine Occult Blood 150 H Urine Nitrite Negative Urine Bilirubin Negative Urine Urobilinogen 1 H Ur Leukocyte Esterase 25 H Urine RBC 0 SEEN Urine WBC 0-5 SEEN Ur Squamous Epith Cells 0-5 SEEN Amorphous Sediment R Urine Bacteria RARE Urine Mucus 1+ Hepatitis A IgM Ab Hepatitis A Ab Total Hep Bs Antigen Hep B Core Total Ab Hep B Core IgM Ab 10/29/17 10/29/17 10/29/17 04:35 04:35 04:35 WBC 19.3 H RBC 3.12 L Hgb 8.1 L Hct 25.2 L MCV 80.8 MCH 26.0 L MCHC 32.1 RDW 19.3 H RDW Differential 57.0 H Plt Count 152 MPV 10.2 PT 30.6 H INR 2.9 APTT 63.7 H Sodium Potassium Chloride Carbon Dioxide Anion Gap BUN Creatinine Estim Creat Clear Calc Est GFR (MDRD) Af Amer Est GFR (MDRD) Non-Af BUN/Creatinine Ratio Glucose Lactic Acid Calcium Lactate Dehydrogenase 645 H Troponin I Urine Color Urine Clarity Urine pH Ur Specific [place] Urine Protein Urine Glucose (UA) Urine Ketones Urine Occult Blood Urine Nitrite Urine Bilirubin Urine Urobilinogen Ur Leukocyte Esterase Urine RBC Urine WBC Ur Squamous Epith Cells Amorphous Sediment Urine Bacteria Urine Mucus Hepatitis A IgM Ab Hepatitis A Ab Total Hep Bs Antigen Hep B Core Total Ab Hep B Core IgM Ab 10/29/17 05:00 WBC RBC Hgb Hct MCV MCH MCHC RDW RDW Differential Plt Count MPV PT INR APTT Sodium Potassium Chloride Carbon Dioxide Anion Gap BUN Creatinine Estim Creat Clear Calc Est GFR (MDRD) Af Amer Est GFR (MDRD) Non-Af BUN/Creatinine Ratio Glucose Lactic Acid Calcium Lactate Dehydrogenase Troponin I Urine Color Urine Clarity Urine pH Ur Specific [place] Urine Protein Urine Glucose (UA) Urine Ketones Urine Occult Blood Urine Nitrite Urine Bilirubin Urine Urobilinogen Ur Leukocyte Esterase Urine RBC Urine WBC Ur Squamous Epith Cells Amorphous Sediment Urine Bacteria Urine Mucus Hepatitis A IgM Ab Pending Hepatitis A Ab Total Pending Hep Bs Antigen Pending Hep B Core Total Ab Pending Hep B Core IgM Ab Pending Clinical Impression(s) from Imaging Studies Chest X-Ray 10/28/17 19:51 IMPRESSION: Decreased inspiratory effort with bibasilar atelectasis. The study is otherwise unchanged. Electronically Signed: Frantz Paula DO at 20:07 EDT Tel [phone], Service support , Lower Extremity CT 10/28/17 19:52 IMPRESSION: 1. Right total knee arthroplasty. 2. Abscess which appears to involve the suprapatellar space and extends outward along the vastus medialis musculature. There is associated periosteal reaction on the femur without evidence of fracture or cortical disruption. Electronically Signed: Frantz ChaiDO at 21:26 EDT Tel [phone], Service support , Gallbladder Ultrasound 10/28/17 20:42 IMPRESSION: 1. Mild hepatomegaly. This appears unchanged from prior study. 2. No evidence for gallbladder and biliary ductal abnormality. 3. Stable column of [place] within the right kidney. Electronically Signed: Frantz Paula DO at 21:32 EDT Tel [phone], Service support , Assessment/Plan Active and Suspected Problems Septic shock (Acute) Coagulopathy (Acute) DAYNA (acute kidney injury) (Acute) Abscess of right thigh (Acute) RECOMMENDATIONS: 1. Obtain ID consult for antibiotic recommendations 2. Obtain orthopedics consult for possible drainage 3. Wean Levophed as tolerated 4. Continue anticoagulation with daily INRs 5. Possible discontinuation of PICC line if blood cultures positive 6. Monitor hepatic panel 7. Obtain renal ultrasound IMPRESSIONS: 1. Septic shock secondary to thigh abscess Patient with right thigh abscess. Unfortunately, cultures previously have been showing no growth. Patient has been treated with vancomycin, Zyvox and doxycycline. Patient currently on pressor therapy. Infectious disease has been consulted for antibiotic recommendations. Will consult orthopedic surgery for possible drainage of area of interest. 2. Acute hepatitis Unclear etiology at this time. Patient does have hypotension, so this may be shock liver. Will monitor on a daily basis. Patient does have an elevated INR, but is on Coumadin therapy. Albumin level is significantly depressed, but this may be secondary to ongoing infectious issues. Gallbladder ultrasound was relatively unremarkable. 3. Acute kidney injury secondary to septic shock Likely secondary to septic shock with prerenal etiology. Patient's blood pressure will be maintained at appropriate levels. Patient's lab work does not show any immediate need for renal replacement therapy. Avoid dye if possible. 4. Factor V Leiden with history of PE/DVT with supratherapeutic INR On Coumadin therapy at baseline. Supratherapeutic INR on presentation likely secondary to ongoing sepsis, antibiotics and fever. INR currently in acceptable levels. Patient is on antibiotics, so anticipate prolongation. 5. 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 Unclear if patient's current erythema and desquamation is secondary to that allergic reaction or if patient has a scalded skin type of syndrome secondary to staph versus strep. Staph would be concerning given patient's reported intolerance to vancomycin or Zyvox therapy. May need to get dermatology to evaluate patient. This is likely leading to increased insensible losses, so volume resuscitation has been initiated. Patient is on doxycycline, which can lead to photosensitivity, but areas involved are typically covered and patient is not reporting any sun exposure. Patient does have some lesions in the mouth, but this appears to be secondary to severe dehydration and bleeding secondary to a supratherapeutic INR. We will continue to reevaluate. TIME: 33 minutes critical care time spent addressing patient's septic shock, acute kidney injury, acute hepatitis, review of all data and collaboration with care team (5:15 AM to 6:45 AM) Code Visit [id number]: [id number] Critical care first hour
[2017-10-29] MEDS: 0.9% Normal Saline 1,000 ML 150 ML IV ×3 (07:33→21:38)
[2017-10-29] MEDS: Acetaminophen 325 MG Tablet 650 MG PO ×2 (11:02→19:39)
--- NOTE | 2017-10-29 12:09 | CON.PCM_ITS ---
Reason for Consult Date of Consultation: 10/29/17 History of Present Illness: The patient is a 57 year old M who underwent a right TKR in july and then an I& D with poly exchange approximately 3 weeks later. Was admitted via ED last night with sepsis and possible osteomyelitis with abscess right thigh. He was on levophed and given IV antibiotics and is doing much better today. INR last night was unmeasurable and is 2.9 this morning. Patient is resting comfortably and family is at bedside. He reports minimal pain in the right leg and states PT has been going well.] Past Medical History Past Medical History (Chronic Problems): Chronic Problems Factor V Leiden (Chronic) Elevated LFTs (Chronic) Anemia (Chronic) Status post total right knee replacement (Chronic) History of pulmonary embolism (Chronic) History of DVT (deep vein thrombosis) (Chronic) Allergies Sulfa (Sulfonamide Antibiotics) Allergy (Verified 10/09/17 10:25) Unknown vancomycin Allergy (Verified 10/12/17 12:41) Fever and skin rash ceftriaxone Adverse Reaction (Verified 10/28/17 18:59) Rash linezolid Adverse Reaction (Verified 10/28/17 18:59) Rash Home Medications: Ambulatory Orders Medication Instructions Recorded Acetaminophen [Tylenol] 1,000 mg PO PRN PRN 08/24/17 Ferrous Sulfate [Iron] 325 mg PO BID #60 tab 08/26/17 Docusate Sodium [Colace] 100 mg PO BID 09/18/17 Warfarin [Coumadin] 8 mg PO DAILY 10/09/17 Doxycycline 100 mg PO BID 30 Days #60 cap 10/12/17 Surgical History: total knee arthroplasty Psychiatric History: No pertinent psych hx Lives: With Family Smoking Status: Never smoker Alcohol: None Drugs: None - *Family History Maternal History Items: No pertinent history Paternal History Items: No pertinent history Patient Problems: Active and Suspected Problems Septic shock (Acute) Coagulopathy (Acute) DAYNA (acute kidney injury) (Acute) Abscess of right thigh (Acute) - Physical Exam General: Alert, Oriented x3, Cooperative, No apparent distress Oral: Dry Mucosa - dried blood on lips secondary to tongue bleeding last night. Extremities: No Calf Tenderness, Edema - b/l le Skin: Incision - stable without erythema or drainage Musculoskeletal: Tenderness - RLE as expected but no increased tenderness to palpation about thigh. Right knee ROM -5 to 90 without significant pain. Neurological: Sensory exam intact to light touch and pain Psych/Mental Status: Appropriate Vital Signs Temp Pulse Resp BP Pulse Ox 102.3 F H 122 H 28 H 96/63 96 10/29/17 12:00 10/29/17 12:00 10/29/17 12:00 10/29/17 12:00 10/29/17 12:00 Oxygen Flow Rate (L/min) 1 Oxygen Delivery Method Room Air Weight: 187 lb 13.341 oz Body Mass Index (BMI) 23.6 Intake and Output for Last 24 Hours 10/27/17 10/28/17 10/29/17 23:59 23:59 23:59 Intake Total 766 / 766 Output Total 200 / 200 Balance 566 / 566 Laboratory Tests Past 24 Hrs 10/29/17 10/29/17 10/29/17 00:35 03:55 04:35 WBC RBC Hgb Hct MCV MCH MCHC RDW RDW Differential Plt Count MPV PT INR APTT Sodium 142 Potassium 4.5 Chloride 106 Carbon Dioxide 28.0 Anion Gap 8 BUN 34 H Creatinine 2.35 H Estim Creat Clear Calc 40.32 Est GFR (MDRD) Af Amer 37 L Est GFR (MDRD) Non-Af 31 L BUN/Creatinine Ratio 14.5 Glucose 76 Lactic Acid 1.8 Calcium 7.2 L Lactate Dehydrogenase Troponin I 0.024 Urine Color YELLOW Urine Clarity Clear Urine pH 5.0 Ur Specific [place] 1.015 Urine Protein 30 H Urine Glucose (UA) Normal Urine Ketones Negative Urine Occult Blood 150 H Urine Nitrite Negative Urine Bilirubin Negative Urine Urobilinogen 1 H Ur Leukocyte Esterase 25 H Urine RBC 0 SEEN Urine WBC 0-5 SEEN Ur Squamous Epith Cells 0-5 SEEN Amorphous Sediment R Urine Bacteria RARE Urine Mucus 1+ Hepatitis A IgM Ab Hepatitis A Ab Total Hep Bs Antigen Hep B Core Total Ab Hep B Core IgM Ab 10/29/17 10/29/17 10/29/17 04:35 04:35 04:35 WBC 19.3 H RBC 3.12 L Hgb 8.1 L Hct 25.2 L MCV 80.8 MCH 26.0 L MCHC 32.1 RDW 19.3 H RDW Differential 57.0 H Plt Count 152 MPV 10.2 PT 30.6 H INR 2.9 APTT 63.7 H Sodium Potassium Chloride Carbon Dioxide Anion Gap BUN Creatinine Estim Creat Clear Calc Est GFR (MDRD) Af Amer Est GFR (MDRD) Non-Af BUN/Creatinine Ratio Glucose Lactic Acid Calcium Lactate Dehydrogenase 645 H Troponin I Urine Color Urine Clarity Urine pH Ur Specific [place] Urine Protein Urine Glucose (UA) Urine Ketones Urine Occult Blood Urine Nitrite Urine Bilirubin Urine Urobilinogen Ur Leukocyte Esterase Urine RBC Urine WBC Ur Squamous Epith Cells Amorphous Sediment Urine Bacteria Urine Mucus Hepatitis A IgM Ab Hepatitis A Ab Total Hep Bs Antigen Hep B Core Total Ab Hep B Core IgM Ab 10/29/17 10/29/17 10/29/17 05:00 07:30 11:15 WBC RBC Hgb Hct MCV MCH MCHC RDW RDW Differential Plt Count MPV PT INR APTT Sodium Potassium Chloride Carbon Dioxide Anion Gap BUN Creatinine Estim Creat Clear Calc Est GFR (MDRD) Af Amer Est GFR (MDRD) Non-Af BUN/Creatinine Ratio Glucose Lactic Acid Calcium Lactate Dehydrogenase Troponin I 0.018 0.025 Urine Color Urine Clarity Urine pH Ur Specific [place] Urine Protein Urine Glucose (UA) Urine Ketones Urine Occult Blood Urine Nitrite Urine Bilirubin Urine Urobilinogen Ur Leukocyte Esterase Urine RBC Urine WBC Ur Squamous Epith Cells Amorphous Sediment Urine Bacteria Urine Mucus Hepatitis A IgM Ab Pending Hepatitis A Ab Total Pending Hep Bs Antigen Pending Hep B Core Total Ab Pending Hep B Core IgM Ab Pending Assessment/Plan All Active Problems Fever with exanthematous rash (Acute) Septic shock (Acute) Coagulopathy (Acute) DAYNA (acute kidney injury) (Acute) Abscess of right thigh (Acute) 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 knee joint (Resolved) Atrial fibrillation with RVR (Resolved) Acute cystitis (Resolved) Severe sepsis (Resolved) Sepsis with possible abscess and osteomyelitis right thigh versus post-op changes s/p TKR with subsequent I&D/poly exchange. Will monitor patient response to antibiotics closely. Will monitor serial INRs. May need repeat I&D if responds poorly and/or resumes septic shock picture.
[2017-10-29] MEDS: Lactated Ringers 500 ML 999 ML IV (14:30)
--- NOTE | 2017-10-29 15:03 | NURSING ---
Clarke catheter inserted following standard protocol. Resistance met at about the level of prostate, retracted and reinserted catheter and resistance still met. New catheter obtained and attempted insertion, was able to insert successfully. Urine return for dark blood and clots, manually irrigated clarke, draining well. Dr Wilson notified
[2017-10-29] MEDS: Lidocaine Jelly 2% 20 ML Syringe (URO-JET) 20 APPLIC TOPICAL (15:25)
[2017-10-29 16:16] LABS: Hemoglobin 8.1 g/dl (13.0-16.5)
--- NOTE | 2017-10-29 16:19 | PCM.PN.HOSP ---
Patient Problems: Active and Suspected Problems Septic shock (Acute) Coagulopathy (Acute) DAYNA (acute kidney injury) (Acute) Abscess of right thigh (Acute) Subjective: Patient was seen and examined. He feels slightly improved. No itching or burning of skin. Remains on low-dose pressors Vitals/I&O's: Vital Signs Temp Pulse Resp BP Pulse Ox 102.3 F H 122 H 28 H 96/63 96 10/29/17 12:00 10/29/17 12:00 10/29/17 12:00 10/29/17 12:00 10/29/17 12:00 Oxygen Flow Rate (L/min) 1 Oxygen Delivery Method Room Air Weight: 85.2 kg Body Mass Index (BMI) 23.6 Intake and Output for Last 24 Hours 10/27/17 10/28/17 10/29/17 23:59 23:59 23:59 Intake Total 766 / 766 Output Total 200 / 200 Balance 566 / 566 General: Alert, Oriented x3, Cooperative, - - Looks very unwell HEENT: Atraumatic, PERRLA, EOMI, Normocephalic Oral: Dry Mucosa Neck: Supple, No JVD, Negative Carotid Bruits Lungs: Normal air movement, Diminished, Rales - at the lung bases Cardiovascular: Regular rate, No murmurs Abdomen: Bowel Sounds Present, Soft, Non Tender, Non-Distended, No Hepato-splenomegaly Extremities: No edema Skin: - - Redness and peeling of the skin of the face and extremities, with some petechiae and evidence of old blood around the mouth Musculoskeletal: No Tenderness to Palpation of Joints or Extremities Lymphatic: No Cervical, Supraclavicular, or Inguinal Adenopathy Neurological: Cranial nerves II-XII grossly intact, Neuro grossly intact Psych/Mental Status: Normal Affect, Appropriate Microbiology Past 72 Hours 10/29/17 12:30 Stool C. difficile DNA Amplification - Final 10/29/17 12:30 Stool Stool Occult Blood (SANDRA) - Final Laboratory Results 10/29/17 00:35: Lactic Acid 1.8 10/29/17 03:55: Urine Color YELLOW, Urine Clarity Clear, Urine pH 5.0, Ur Specific [place] 1.015, Urine Protein 30 H, Urine Glucose (UA) Normal, Urine Ketones Negative, Urine Occult Blood 150 H, Urine Nitrite Negative, Urine Bilirubin Negative, Urine Urobilinogen 1 H, Ur Leukocyte Esterase 25 H, Urine RBC 0 SEEN, Urine WBC 0-5 SEEN, Ur Squamous Epith Cells 0-5 SEEN, Amorphous Sediment R, Urine Bacteria RARE, Urine Mucus 1+ 10/29/17 04:35: Sodium 142, Potassium 4.5, Chloride 106, Carbon Dioxide 28.0, Anion Gap 8, BUN 34 H, Creatinine 2.35 H, Estim Creat Clear Calc 40.32, Est GFR (MDRD) Af Amer 37 L, Est GFR (MDRD) Non-Af 31 L, BUN/Creatinine Ratio 14.5, Glucose 76, Calcium 7.2 L, Troponin I 0.024 10/29/17 04:35: WBC 19.3 H, RBC 3.12 L, Hgb 8.1 L, Hct 25.2 L, MCV 80.8, MCH 26.0 L, MCHC 32.1, RDW 19.3 H, RDW Differential 57.0 H, Plt Count 152, MPV 10.2 10/29/17 04:35: PT 30.6 H, INR 2.9, APTT 63.7 H 10/29/17 04:35: Lactate Dehydrogenase 645 H 10/29/17 05:00: Hepatitis A IgM Ab Pending, Hepatitis A Ab Total Pending, Hep Bs Antigen Pending, Hep B Core Total Ab Pending, Hep B Core IgM Ab Pending 10/29/17 07:30: Troponin I 0.018 10/29/17 11:15: Troponin I 0.025 10/29/17 16:00: Hgb 8.1 L, Hct 24.0 L Current Medications Acetaminophen (Tylenol) 650 mg PO Q6H PRN PRN PRN Reason: pain/Temp>101 Last Admin: 10/29/17 11:02 Dose: 650 mg Norepinephrine Bitartrate 8 mg (/ Dextrose) 258 mls @ 9.67 mls/hr IV .[id number] MAGDA PRN Reason: 5 MCG/MIN Last Admin: 10/28/17 23:06 Dose: 9.67 mls/hr Sodium Chloride () 1,000 mls @ 150 mls/hr IV .[id number] MAGDA Last Admin: 10/29/17 15:26 Dose: 150 mls/hr Piperacillin Sod/Tazobactam Sod (Zosyn) 3.375 gm in 50 mls @ 12.5 mls/hr IV Q8 [facility] Last Admin: 10/29/17 14:47 Dose: 12.5 mls/hr Doxycycline Hyclate 100 mg/ (Dextrose) 260 mls @ 250 mls/hr IV Q12 [facility] Last Admin: 10/29/17 10:24 Dose: 250 mls/hr Magnesium Hydroxide (Milk Of Magnesia) 30 ml PO DAILY PRN PRN PRN Reason: Constipation Nutritional Formula (Lactose Free) (Ensure Enlive) 120 ml PO 4X/DAY [facility] Last Admin: 10/29/17 15:26 Dose: Not Given Medical Necessity - Tobacco Use Smoking Status: Never smoker Assessment/Plan All Active Problems Fever with exanthematous rash (Acute) Septic shock (Acute) Coagulopathy (Acute) DAYNA (acute kidney injury) (Acute) Abscess of right thigh (Acute) 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 knee joint (Resolved) Atrial fibrillation with RVR (Resolved) Acute cystitis (Resolved) Severe sepsis (Resolved) 57 year old male with PMHx of factor V Leiden, DVT on coumadin, s/p right knee replacement in July and later I&D with poly exchange 3 weeks later admitted with septic shock secondary to abscess of right thigh. 1. Septic shock secondary to abscess of the right thigh, on doxycycline and Zosyn, reported allergy to vancomycin and Zyvox Blood culture and urine culture are pending Patient remains on low-dose pressors, remains in ICU, continue antibiotics, orthopedics consulted, having low-grade fevers, WBC count is slightly improved, will continue to monitor per protocol in the ICU. 2. Supratherapeutic INR, history of factor V Leiden with h/o DVT on Coumadin status post 2 units of FFP's, INR is 2.9 today, off Coumadin, will continue to monitor INR in am 3. Right thigh abscess, orthopedics consulted, on IV antibiotics 4. DAYNA, likely hemodynamic mediated, patient's baseline creatinine is normal 0.70, admitted with creatinine of 2.27, increased to 2.35, will continue on IV fluids trend BMP 5. Elevated liver enzymes likely related to septic shock/hypotension, will continue to trend 6. Allergic skin reaction, not likely to be Bender Alan's syndrome, possible cause medications stopped, will continue to monitor and treat symptomatically 7. DVT prophylaxis-INR is therapeutic Code Visit Inpatient E&M: 23052 Subs Hosp L3
--- NOTE | 2017-10-29 16:38 | CASEMGMT ---
Case Management Readmission Assessment: Patient has h/o right TKR in July, complicated by knee infection. Patient was admitted 09/18/17-09/21/17 for total knee poly exchange. Patient was setup with [facility] and IV ATBs. Patient was readmitted from 10/09/17 - 10/12/17 with fever and rash. Patient discharged home with oral antibiotics and outpatient therapy at [facility] in [place]. Patient returned on 10/28/17 in septic shock secondary to abscess of right thigh. DC Plan: TBD
[2017-10-29 17:27] LABS: AST(SGOT) 1016 U/L (15-37); Alanine Aminotransfer ALT/SGPT 484 U/L (16-61); Albumin, Serum 1.5 g/dL (3.2-5.0); Alkaline Phosphatase 640 U/L (45-117); Bilirubin, Direct 2.28 mg/dL (0.00-0.30); Globulin 4.9 g/dL (2.2-4.2); Protein, Total 6.4 g/dL (6.4-8.2)
[2017-10-29 18:12] LABS: International Normalized Ratio 2.9; Prothrombin Time (Protime)PT. 30.5 SECONDS (11.7-14.9)
[2017-10-30] VITALS (44 sets, daily range): BP systolic 77–113; BP diastolic 39–82; PULSE 94–113; RESP 14–22; TEMP 36.4–38.1; O2SAT 94–100
[2017-10-30] MEDS: Acetaminophen 325 MG Tablet 650 MG PO ×3 (01:44→20:17)
[2017-10-30] MEDS: 0.9% Normal Saline 1,000 ML 999 ML IV (03:19)
[2017-10-30] MEDS: CHLORHEXIDINE GLUC 2% CLOTH 1 EACH TOWELETTE TOPICAL (04:46)
[2017-10-30] MEDS: 0.9% NaCl Peripheral Flush Adult/Peds IV ×2 (04:46→17:39)
[2017-10-30] MEDS: Piperacil/Tazobactam 3.375 GM/50 ML ML IV ×3 (05:08→21:13)
[2017-10-30] MEDS: 0.9% Normal Saline 1,000 ML 150 ML IV (05:09)
[2017-10-30 05:14] LABS: Absolute Lymphocyte Count 5.07 X10^3/ul (0.83-4.51); Absolute Neutrophil Count 6.2 X10^3/uL (2.0-7.7); Basophil# 0.29 X10^3/uL; Basophil% 1.8 % (0-1); Eosinophils% 24.1 % (0-5); Hematocrit 20.1 % (40-54); Hemoglobin 6.6 g/dl (13.0-16.5); Lymphocyte # 5.07 X10^3/ul (4.0); Mean Corp Hgb Conc 32.8 g/gl (32-36); Mean Corpuscular Hgb 26.1 pg (27.0-32.0); Mean Corpuscular Volume 79.4 fL (80-94); Mean Platelet Vol. 9.7 fl (6.2-12.0); Monocyte# 0.79 X10^3/uL; Monocyte% 4.8 % (0-10); Neutrophil # 6.17 X10^3/uL (2.7-7.7); Neutrophil % 37.9 % (47-70); Platelet Count 125 K/mm3 (150-450); RBC Distribution Width CV 19.4 % (11.6-14.6); RBC Distribution Width SD 56.6 fl (35.1-43.9); Red Blood Count 2.53 M/mm3 (4.6-6.2); White Blood Count 16.3 K/mm3 (4.4-11.0)
[2017-10-30 05:15] LABS: Prothrombin Time (Protime)PT. 38.2 SECONDS (11.7-14.9)
[2017-10-30 05:37] LABS: Differential Indicated SCAN CRITERIA MET; Eosinophil# 3.94 X10^3/uL; POSITIVE COUNT NO; POSITIVE DIFFERENTIAL YES; POSITIVE MORPHOLOGY YES
[2017-10-30 05:40] LABS: ALB/GLOB Ratio 0.3 RATIO (0.9-2.4); AST(SGOT) 1723 U/L (15-37); Alanine Aminotransfer ALT/SGPT 659 U/L (16-61); Albumin, Serum 1.2 g/dL (3.2-5.0); Alkaline Phosphatase 559 U/L (45-117); Anion Gap 12 (5-15); BUN 37 mg/dL (7-18); BUN/Creat Ratio 13.6 RATIO (10-20); Calcium,Total 6.9 mg/dL (8.5-10.1); Chloride 110 mmol/L (98-107); Creatinine, Serum 2.72 mg/dL (0.70-1.30); EST Glomerular Filtration Rate 26 mL/min (>60); Est Glom Filt Rate - Afr Amer 31 mL/min (>60); Estimated Creatinine Clearance 34.84 ml/min; Globulin 4.3 g/dL (2.2-4.2); Glucose 61 mg/dL (74-106); Potassium 4.2 mmol/L (3.5-5.1); Protein, Total 5.5 g/dL (6.4-8.2); Sodium Level 143 mmol/L (136-145)
[2017-10-30 05:42] LABS: International Normalized Ratio 3.9
[2017-10-30 06:28] LABS: Differential Comment SCANNED
--- NOTE | 2017-10-30 06:39 | PN_ITS ---
Subjective: Patient did okay overnight. Yesterday's hospital course was complicated by hematuria after Morejon placement. Patient was able to come off of pressor agents , but did receive a 1 L bolus overnight secondary to hypotension. Patient does remain on room air, but continues to spike high fevers. Patient has received significant bladder irrigation. Patient reports he overall feels subjectively improved compared to previous. Patient feels that he is more alert and has better strength. Patient denies any dyspnea. General: Alert, Oriented x3, Cooperative, No apparent distress, - - Appears older than stated age. Speaking in full sentences. HEENT: Atraumatic, PERRLA, EOMI, Normocephalic, - - Slightly disconjugate gaze. Scleral injection without icterus noted. Oral: Moist Mucosa, No Gingival or Mucosal Lesions/ Ulcerations Neck: Supple, No JVD, No Nodes, Trachea Midline Lungs: No rhonchi, No wheeze, No rales, Diminished, - - Symmetric expansion. No dullness to percussion. Cardiovascular: Normal S1, Normal S2, No murmurs, No rub noted, No Gallop, Tachycardic Abdomen: Bowel Sounds Present, Soft, Non Tender, Non-Distended Extremities: No clubbing, No cyanosis, Diminished Peripheral Pulses, Edema Skin: Rash Present - Grossly unchanged compared to previous Musculoskeletal: No Tenderness to Palpation of Joints or Extremities, No Muscle Wasting Lymphatic: No Cervical, Supraclavicular, or Inguinal Adenopathy Neurological: Cranial nerves II-XII grossly intact, Neuro grossly intact, Motor Exam 5/5 strength throughout, Sensory exam intact to light touch and pain Psych/Mental Status: Alert and oriented to time, place, person, mood and affect Vital Signs Temp Pulse Resp BP Pulse Ox 37.0 C 97 16 92/55 L 96 10/30/17 04:00 10/30/17 05:00 10/30/17 05:00 10/30/17 05:00 10/30/17 05:00 Oxygen Flow Rate (L/min) 1 Oxygen Delivery Method Room Air Weight: 88 kg Body Mass Index (BMI) 23.6 Intake and Output for Last 24 Hours 10/28/17 10/29/17 10/30/17 23:59 23:59 23:59 Intake Total 4724 / 4724 Output Total 1100 / 1100 Balance 3624 / 3624 Labs (Last 48 Hours) 10/29/17 10/29/17 10/29/17 00:35 03:55 04:35 WBC RBC Hgb Hct MCV MCH MCHC RDW RDW Differential Plt Count MPV Immature Gran % (Auto) Neut % (Auto) Lymph % (Auto) [place] % (Auto) Eos % (Auto) Baso % (Auto) Absolute Neuts (auto) Absolute Lymphs (auto) Total Counted Differential Comment Diff Path Review PT INR APTT Sodium 142 Potassium 4.5 Chloride 106 Carbon Dioxide 28.0 Anion Gap 8 BUN 34 H Creatinine 2.35 H Estim Creat Clear Calc 40.32 Est GFR (MDRD) Af Amer 37 L Est GFR (MDRD) Non-Af 31 L BUN/Creatinine Ratio 14.5 Glucose 76 Lactic Acid 1.8 Calcium 7.2 L Total Bilirubin Direct Bilirubin AST ALT Alkaline Phosphatase Lactate Dehydrogenase Troponin I 0.024 Total Protein Albumin Globulin Albumin/Globulin Ratio Urine Color YELLOW Urine Clarity Clear Urine pH 5.0 Ur Specific [place] 1.015 Urine Protein 30 H Urine Glucose (UA) Normal Urine Ketones Negative Urine Occult Blood 150 H Urine Nitrite Negative Urine Bilirubin Negative Urine Urobilinogen 1 H Ur Leukocyte Esterase 25 H Urine RBC 0 SEEN Urine WBC 0-5 SEEN Ur Squamous Epith Cells 0-5 SEEN Amorphous Sediment R Urine Bacteria RARE Urine Mucus 1+ Hepatitis A IgM Ab Hepatitis A Ab Total Hep Bs Antigen Hep B Core Total Ab Hep B Core IgM Ab 10/29/17 10/29/17 10/29/17 04:35 04:35 04:35 WBC 19.3 H RBC 3.12 L Hgb 8.1 L Hct 25.2 L MCV 80.8 MCH 26.0 L MCHC 32.1 RDW 19.3 H RDW Differential 57.0 H Plt Count 152 MPV 10.2 Immature Gran % (Auto) Neut % (Auto) Lymph % (Auto) [place] % (Auto) Eos % (Auto) Baso % (Auto) Absolute Neuts (auto) Absolute Lymphs (auto) Total Counted Differential Comment Diff Path Review PT 30.6 H INR 2.9 APTT 63.7 H Sodium Potassium Chloride Carbon Dioxide Anion Gap BUN Creatinine Estim Creat Clear Calc Est GFR (MDRD) Af Amer Est GFR (MDRD) Non-Af BUN/Creatinine Ratio Glucose Lactic Acid Calcium Total Bilirubin Direct Bilirubin AST ALT Alkaline Phosphatase Lactate Dehydrogenase 645 H Troponin I Total Protein Albumin Globulin Albumin/Globulin Ratio Urine Color Urine Clarity Urine pH Ur Specific [place] Urine Protein Urine Glucose (UA) Urine Ketones Urine Occult Blood Urine Nitrite Urine Bilirubin Urine Urobilinogen Ur Leukocyte Esterase Urine RBC Urine WBC Ur Squamous Epith Cells Amorphous Sediment Urine Bacteria Urine Mucus Hepatitis A IgM Ab Hepatitis A Ab Total Hep Bs Antigen Hep B Core Total Ab Hep B Core IgM Ab 10/29/17 10/29/17 10/29/17 05:00 07:30 11:15 WBC RBC Hgb Hct MCV MCH MCHC RDW RDW Differential Plt Count MPV Immature Gran % (Auto) Neut % (Auto) Lymph % (Auto) [place] % (Auto) Eos % (Auto) Baso % (Auto) Absolute Neuts (auto) Absolute Lymphs (auto) Total Counted Differential Comment Diff Path Review PT INR APTT Sodium Potassium Chloride Carbon Dioxide Anion Gap BUN Creatinine Estim Creat Clear Calc Est GFR (MDRD) Af Amer Est GFR (MDRD) Non-Af BUN/Creatinine Ratio Glucose Lactic Acid Calcium Total Bilirubin Direct Bilirubin AST ALT Alkaline Phosphatase Lactate Dehydrogenase Troponin I 0.018 0.025 Total Protein Albumin Globulin Albumin/Globulin Ratio Urine Color Urine Clarity Urine pH Ur Specific [place] Urine Protein Urine Glucose (UA) Urine Ketones Urine Occult Blood Urine Nitrite Urine Bilirubin Urine Urobilinogen Ur Leukocyte Esterase Urine RBC Urine WBC Ur Squamous Epith Cells Amorphous Sediment Urine Bacteria Urine Mucus Hepatitis A IgM Ab Pending Hepatitis A Ab Total Pending Hep Bs Antigen Pending Hep B Core Total Ab Pending Hep B Core IgM Ab Pending 10/29/17 10/29/17 10/29/17 11:15 16:00 17:40 WBC RBC Hgb 8.1 L Hct 24.0 L MCV MCH MCHC RDW RDW Differential Plt Count MPV Immature Gran % (Auto) Neut % (Auto) Lymph % (Auto) [place] % (Auto) Eos % (Auto) Baso % (Auto) Absolute Neuts (auto) Absolute Lymphs (auto) Total Counted Differential Comment Diff Path Review PT 30.5 H INR 2.9 APTT Sodium Potassium Chloride Carbon Dioxide Anion Gap BUN Creatinine Estim Creat Clear Calc Est GFR (MDRD) Af Amer Est GFR (MDRD) Non-Af BUN/Creatinine Ratio Glucose Lactic Acid Calcium Total Bilirubin 3.10 H Direct Bilirubin 2.28 H AST 1016 H ALT 484 H Alkaline Phosphatase 640 H Lactate Dehydrogenase Troponin I Total Protein 6.4 Albumin 1.5 L Globulin 4.9 H Albumin/Globulin Ratio Urine Color Urine Clarity Urine pH Ur Specific [place] Urine Protein Urine Glucose (UA) Urine Ketones Urine Occult Blood Urine Nitrite Urine Bilirubin Urine Urobilinogen Ur Leukocyte Esterase Urine RBC Urine WBC Ur Squamous Epith Cells Amorphous Sediment Urine Bacteria Urine Mucus Hepatitis A IgM Ab Hepatitis A Ab Total Hep Bs Antigen Hep B Core Total Ab Hep B Core IgM Ab 10/30/17 10/30/17 10/30/17 04:50 04:50 04:50 WBC 16.3 H RBC 2.53 L Hgb 6.6 L Hct 20.1 L MCV 79.4 L MCH 26.1 L MCHC 32.8 RDW 19.4 H RDW Differential 56.6 H Plt Count 125 L MPV 9.7 Immature Gran % (Auto) 0.400 Neut % (Auto) 37.9 L Lymph % (Auto) 31.0 [place] % (Auto) 4.8 Eos % (Auto) 24.1 H Baso % (Auto) 1.8 H Absolute Neuts (auto) 6.2 Absolute Lymphs (auto) 5.07 H Total Counted Not Reportable Differential Comment SCANNED Diff Path Review ED TRANSPORTER PT 38.2 H INR 3.9 H* APTT Sodium 143 Potassium 4.2 Chloride 110 H Carbon Dioxide 21.0 Anion Gap 12 BUN 37 H Creatinine 2.72 H Estim Creat Clear Calc 34.84 Est GFR (MDRD) Af Amer 31 L Est GFR (MDRD) Non-Af 26 L BUN/Creatinine Ratio 13.6 Glucose 61 L Lactic Acid Calcium 6.9 L Total Bilirubin 4.10 H Direct Bilirubin AST 1723 H ALT 659 H Alkaline Phosphatase 559 H Lactate Dehydrogenase Troponin I Total Protein 5.5 L Albumin 1.2 L Globulin 4.3 H Albumin/Globulin Ratio 0.3 L Urine Color Urine Clarity Urine pH Ur Specific [place] Urine Protein Urine Glucose (UA) Urine Ketones Urine Occult Blood Urine Nitrite Urine Bilirubin Urine Urobilinogen Ur Leukocyte Esterase Urine RBC Urine WBC Ur Squamous Epith Cells Amorphous Sediment Urine Bacteria Urine Mucus Hepatitis A IgM Ab Hepatitis A Ab Total Hep Bs Antigen Hep B Core Total Ab Hep B Core IgM Ab Microbiology 10/29/17 12:30 Stool C. difficile DNA Amplification - Final 10/29/17 12:30 Stool Stool Occult Blood (SANDRA) - Final Medical Necessity - Tobacco Use Smoking Status: Never smoker Assessment/Plan All Active Problems Fever with exanthematous rash (Acute) Septic shock (Acute) Coagulopathy (Acute) DAYNA (acute kidney injury) (Acute) Abscess of right thigh (Acute) 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 knee joint (Resolved) Atrial fibrillation with RVR (Resolved) Acute cystitis (Resolved) Severe sepsis (Resolved) RECOMMENDATIONS: 1. Obtain ID consult for antibiotic recommendations 2. Defer to orthopedic some possible I&D 3. Transfuse 2 units of packed red blood cells 4. Continue daily INRs, FFP today 5. Possible discontinuation of PICC line if blood cultures positive 6. Initiate fingerstick blood sugars 7. Await renal ultrasound IMPRESSIONS: 1. Septic shock secondary to thigh abscess Patient with right thigh abscess. Unfortunately, cultures previously have been showing no growth. Patient has been treated with vancomycin, Zyvox and doxycycline in the past, but has had reported allergy complications to vancomycin and Zyvox. Patient currently off pressor therapy. Infectious disease has been consulted for antibiotic recommendations. Orthopedic surgery following for possible drainage of area of interest. 2. Acute hepatitis Unclear etiology at this time. Patient did have hypotension, so this may be shock liver. Will monitor on a daily basis. Patient does have an elevated INR, but was on Coumadin therapy. Albumin level is significantly depressed, but this may be secondary to ongoing infectious issues. Gallbladder ultrasound was relatively unremarkable. 3. Acute kidney injury secondary to septic shock Likely secondary to septic shock with prerenal etiology. Patient's blood pressure will be maintained at appropriate levels. Slight worsening compared to yesterday. Patient's lab work does not show any immediate need for renal replacement therapy. Avoid dye if possible. 4. Factor V Leiden with history of PE/DVT with supratherapeutic INR On Coumadin therapy at baseline. Supratherapeutic INR on presentation likely secondary to ongoing sepsis, antibiotics and fever. INR currently not at acceptable levels given hematuria. Patient is on antibiotics, so anticipate prolongation. FFP will be given today. Attempting to avoid complete reversal given patient's underlying factor V Leiden 5. 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 Unclear if patient's current erythema and desquamation is secondary to that allergic reaction or if patient has a scalded skin type of syndrome secondary to staph versus strep. Staph would be concerning given patient's reported intolerance to vancomycin or Zyvox therapy. May need to get dermatology to evaluate patient. This is likely leading to increased insensible losses, so volume resuscitation has been initiated. Patient is on doxycycline, which can lead to photosensitivity, but areas involved are typically covered and patient is not reporting any sun exposure. Patient does have some lesions in the mouth, but this appears to be secondary to severe dehydration and bleeding secondary to a supratherapeutic INR. We will continue to reevaluate. 6. Acute blood loss anemia secondary to hematuria Patient has been reporting hesitancy and [place] was difficult to place. Some concern for urethral stricture and dropping of the balloon into the prostate leading to bleeding. Extra fluid has been added to the balloon with clearing of urine. Significant irrigation overnight. Will transfuse 2 units of packed red blood cells and decrease INR to more acceptable levels. TIME: 31 minutes critical care time spent addressing patient's septic shock, acute kidney injury, acute hepatitis, review of all data and collaboration with care team (5:30 AM to 6:30 AM) Code Visit [id number]: [id number] Critical care first hour
[2017-10-30 06:51] LABS: Bedside Glucose 68 mg/dL (70-110)
[2017-10-30] MEDS: Dextrose 50%-Water 25 GM/50 ML DISP.SYRIN IV (07:01)
--- NOTE | 2017-10-30 08:25 | PCM.PN.HOSP ---
Patient Problems: Active and Suspected Problems Septic shock (Acute) Coagulopathy (Acute) DAYNA (acute kidney injury) (Acute) Abscess of right thigh (Acute) Subjective: Patient seen and examined. Had an eventful stay. Had hematuria, started on irrigation. Had consequent drop in hemoglobin. INR is elevated. He is getting whole blood as well as FFP. He feels well. Skin lesions are getting better. Had 3 BM yesterday, none today. Objective: Physical exam: General: Alert, Oriented x3, Cooperative, - - Looks very unwell HEENT: Atraumatic, PERRLA, EOMI, Normocephalic Oral: Dry Mucosa Neck: Supple, No JVD, Negative Carotid Bruits Lungs: Normal air movement, Diminished, Rales - at the lung bases Cardiovascular: Regular rate, No murmurs Abdomen: Bowel Sounds Present, Soft, Non Tender, Non-Distended, No Hepato-splenomegaly Extremities: No edema Skin: - - Redness and peeling of the skin of the face and extremities, with some petechiae and evidence of old blood around the mouth Musculoskeletal: No Tenderness to Palpation of Joints or Extremities Lymphatic: No Cervical, Supraclavicular, or Inguinal Adenopathy Neurological: Cranial nerves II-XII grossly intact, Neuro grossly intact Psych/Mental Status: Normal Affect, Appropriate Vitals/I&O's: Vital Signs Temp Pulse Resp BP Pulse Ox 98.2 F 102 H 19 H 91/58 L 96 10/30/17 06:00 10/30/17 07:00 10/30/17 06:00 10/30/17 06:00 10/30/17 06:00 Oxygen Flow Rate (L/min) 1 Oxygen Delivery Method Room Air Weight: 88 kg Body Mass Index (BMI) 23.6 Intake and Output for Last 24 Hours 10/28/17 10/29/17 10/30/17 23:59 23:59 23:59 Intake Total 4724 / 4724 2502 / 2502 Output Total 1100 / 1100 475 / 475 Balance 3624 / 3624 2026 / 2026 Microbiology Past 72 Hours 10/29/17 12:30 Stool C. difficile DNA Amplification - Final 10/29/17 12:30 Stool Stool Occult Blood (SANDRA) - Final Laboratory Results 10/29/17 07:30: Troponin I 0.018 10/29/17 11:15: Troponin I 0.025 10/29/17 11:15: Total Bilirubin 3.10 H, Direct Bilirubin 2.28 H, AST 1016 H, ALT 484 H, Alkaline Phosphatase 640 H, Total Protein 6.4, Albumin 1.5 L, Globulin 4.9 H 10/29/17 16:00: Hgb 8.1 L, Hct 24.0 L 10/29/17 17:40: PT 30.5 H, INR 2.9 10/30/17 04:50: WBC 16.3 H, RBC 2.53 L, Hgb 6.6 L, Hct 20.1 L, MCV 79.4 L, MCH 26.1 L, MCHC 32.8, RDW 19.4 H, RDW Differential 56.6 H, Plt Count 125 L, MPV 9.7, Immature Gran % (Auto) 0.400, Neut % (Auto) 37.9 L, Lymph % (Auto) 31.0, [place] % (Auto) 4.8, Eos % (Auto) 24.1 H, Baso % (Auto) 1.8 H, Absolute Neuts (auto) 6.2, Absolute Lymphs (auto) 5.07 H, Total Counted Not Reportable, Differential Comment SCANNED, Diff Path Review CONSTRUCTION OPERATIONS MANAGER 10/30/17 04:50: Sodium 143, Potassium 4.2, Chloride 110 H, Carbon Dioxide 21.0, Anion Gap 12, BUN 37 H, Creatinine 2.72 H, Estim Creat Clear Calc 34.84, Est GFR (MDRD) Af Amer 31 L, Est GFR (MDRD) Non-Af 26 L, BUN/Creatinine Ratio 13.6, Glucose 61 L, Calcium 6.9 L, Total Bilirubin 4.10 H, AST 1723 H, ALT 659 H, Alkaline Phosphatase 559 H, Total Protein 5.5 L, Albumin 1.2 L, Globulin 4.3 H, Albumin/Globulin Ratio 0.3 L 10/30/17 04:50: PT 38.2 H, INR 3.9 H* 10/30/17 06:45: POC Glucose 68 L Current Medications Acetaminophen (Tylenol) 650 mg PO Q6H PRN PRN PRN Reason: pain/Temp>101 Last Admin: 10/30/17 01:44 Dose: 650 mg Chlorhexidine Gluconate () 1 each TOPICAL DAILY MAGDA Last Admin: 10/30/17 04:46 Dose: 1 each Emollient Ointment (Eucerin Intensive Repair) 1 applic TOPICAL 4X/DAY PRN PRN; Protocol PRN Reason: Dry Skin Last Admin: 10/30/17 01:48 Dose: 1 applicatio Sodium Chloride () 1,000 mls @ 150 mls/hr IV .[id number] [facility] Last Admin: 10/30/17 05:09 Dose: 150 mls/hr Piperacillin Sod/Tazobactam Sod (Zosyn) 3.375 gm in 50 mls @ 12.5 mls/hr IV Q8 [facility] Last Admin: 10/30/17 05:08 Dose: 12.5 mls/hr Doxycycline Hyclate 100 mg/ (Dextrose) 260 mls @ 250 mls/hr IV Q12 [facility] Last Admin: 10/29/17 21:38 Dose: 250 mls/hr Magnesium Hydroxide (Milk Of Magnesia) 30 ml PO DAILY PRN PRN PRN Reason: Constipation Nutritional Formula (Lactose Free) (Ensure Enlive) 120 ml PO 4X/DAY [facility] Last Admin: 10/29/17 22:11 Dose: 120 ml Medical Necessity - Tobacco Use Smoking Status: Never smoker Assessment/Plan All Active Problems Fever with exanthematous rash (Acute) Septic shock (Acute) Coagulopathy (Acute) DAYNA (acute kidney injury) (Acute) Abscess of right thigh (Acute) 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 knee joint (Resolved) Atrial fibrillation with RVR (Resolved) Acute cystitis (Resolved) Severe sepsis (Resolved) 57 year old male with PMHx of factor V Leiden, DVT on coumadin, s/p right knee replacement in July and later I&D with poly exchange 3 weeks later admitted with septic shock secondary to abscess of right thigh. 1. Septic shock secondary to abscess of the right thigh, on doxycycline and Zosyn, reported allergy to vancomycin and Zyvox Urine culture is negative, Blood cultures are pending. Off pressors since 10/29/17. Remains in ICU. BP relatively stable. Had to be given bolus of 1L fluids, WBC slightly improved from 19.3 to 16.3 2. Hematuria, difficulty inserting clarke catheter, urine is bloody, likely secondary to supratherapeutic INR, will continue with bladder irrigation 3. Acute blood loss anemia from hematuria, HB dropped to 6.6, being transfused, will continue to monitor, 4. Supratherapeutic INR, history of factor V Leiden with h/o DV, was on Coumadin, now off because of supratherapeutic state Being transfused 2 units of FFP's, INR elevated at 3.9, INR in am 5. Right thigh abscess, orthopedics consulted, no indication for surgery yet, will need to have right thigh re-imaged in a couple days to monitor improvement, continue on IV antibiotics 6. DAYNA, likely hemodynamic mediated, patient's baseline creatinine is normal 0.70, admitted with creatinine of 2.27, slightly worse in light of blood loss from hematuria, will reassess in am. 7. Elevated liver enzymes likely related to septic shock/hypotension, mild hepatomegaly on ultrasound, hepatitis panel is pending, liver function is worse, will trend 8. Allergic skin reaction, not likely to be Bender Alan's syndrome, possible causal medications stopped, will continue to monitor and treat symptomatically 9. DVT prophylaxis-INR is therapeutic Code Visit Inpatient E&M: [id number] [facility] Hosp L3
--- NOTE | 2017-10-30 09:53 | PCM.PN.ORT ---
Patient Problems: Active and Suspected Problems Septic shock (Acute) Coagulopathy (Acute) DAYNA (acute kidney injury) (Acute) Abscess of right thigh (Acute) Subjective: Patient much improved today. Denies pain in right knee or thigh. - Physical Exam General: Alert, Oriented x3, No apparent distress HEENT: Atraumatic Oral: Moist Mucosa Extremities: Tenderness - Right knee as expected post TKR. No warmth or erythema. No pain with palpation of joint or right thigh. ROM well tolerated. Skin: Incision - stable without drainage Vital Signs Temp Pulse Resp BP Pulse Ox 97.8 F 98 16 98/60 99 10/30/17 09:47 10/30/17 09:47 10/30/17 09:47 10/30/17 09:47 10/30/17 09:47 Oxygen Flow Rate (L/min) 1 Oxygen Delivery Method Room Air Weight: 194 lb 0.108 oz Body Mass Index (BMI) 23.6 Intake and Output for Last 24 Hours 10/28/17 10/29/17 10/30/17 23:59 23:59 23:59 Intake Total 4724 / 4724 2502 / 2502 Output Total 1100 / 1100 475 / 475 Balance 3624 / 3624 2026 / 2026 Microbiology Past 72 Hours 10/29/17 12:30 C. difficile DNA Amplification - Final Stool 10/29/17 12:30 Stool Occult Blood (SANDRA) - Final Stool Laboratory Tests Past 24 Hrs 10/29/17 10/29/17 10/29/17 11:15 11:15 16:00 WBC RBC Hgb 8.1 L Hct 24.0 L MCV MCH MCHC RDW RDW Differential Plt Count MPV Immature Gran % (Auto) Neut % (Auto) Lymph % (Auto) [place] % (Auto) Eos % (Auto) Baso % (Auto) Absolute Neuts (auto) Absolute Lymphs (auto) Total Counted Differential Comment Diff Path Review PT INR Sodium Potassium Chloride Carbon Dioxide Anion Gap BUN Creatinine Estim Creat Clear Calc Est GFR (MDRD) Af Amer Est GFR (MDRD) Non-Af BUN/Creatinine Ratio Glucose Calcium Total Bilirubin 3.10 H Direct Bilirubin 2.28 H AST 1016 H ALT 484 H Alkaline Phosphatase 640 H Troponin I 0.025 Total Protein 6.4 Albumin 1.5 L Globulin 4.9 H Albumin/Globulin Ratio 10/29/17 10/30/17 10/30/17 17:40 04:50 04:50 WBC 16.3 H RBC 2.53 L Hgb 6.6 L Hct 20.1 L MCV 79.4 L MCH 26.1 L MCHC 32.8 RDW 19.4 H RDW Differential 56.6 H Plt Count 125 L MPV 9.7 Immature Gran % (Auto) 0.400 Neut % (Auto) 37.9 L Lymph % (Auto) 31.0 [place] % (Auto) 4.8 Eos % (Auto) 24.1 H Baso % (Auto) 1.8 H Absolute Neuts (auto) 6.2 Absolute Lymphs (auto) 5.07 H Total Counted Not Reportable Differential Comment SCANNED Diff Path Review DIRECT SELLING COUNSELOR PT 30.5 H INR 2.9 Sodium 143 Potassium 4.2 Chloride 110 H Carbon Dioxide 21.0 Anion Gap 12 BUN 37 H Creatinine 2.72 H Estim Creat Clear Calc 34.84 Est GFR (MDRD) Af Amer 31 L Est GFR (MDRD) Non-Af 26 L BUN/Creatinine Ratio 13.6 Glucose 61 L Calcium 6.9 L Total Bilirubin 4.10 H Direct Bilirubin AST 1723 H ALT 659 H Alkaline Phosphatase 559 H Troponin I Total Protein 5.5 L Albumin 1.2 L Globulin 4.3 H Albumin/Globulin Ratio 0.3 L 10/30/17 04:50 WBC RBC Hgb Hct MCV MCH MCHC RDW RDW Differential Plt Count MPV Immature Gran % (Auto) Neut % (Auto) Lymph % (Auto) [place] % (Auto) Eos % (Auto) Baso % (Auto) Absolute Neuts (auto) Absolute Lymphs (auto) Total Counted Differential Comment Diff Path Review PT 38.2 H INR 3.9 H* Sodium Potassium Chloride Carbon Dioxide Anion Gap BUN Creatinine Estim Creat Clear Calc Est GFR (MDRD) Af Amer Est GFR (MDRD) Non-Af BUN/Creatinine Ratio Glucose Calcium Total Bilirubin Direct Bilirubin AST ALT Alkaline Phosphatase Troponin I Total Protein Albumin Globulin Albumin/Globulin Ratio POC Glucose 10/30/17 06:45 POC Glucose 68 L Medical Necessity - Tobacco Use Smoking Status: Never smoker Assessment/Plan All Active Problems Fever with exanthematous rash (Acute) Septic shock (Acute) Coagulopathy (Acute) DAYNA (acute kidney injury) (Acute) Abscess of right thigh (Acute) 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 knee joint (Resolved) Atrial fibrillation with RVR (Resolved) Acute cystitis (Resolved) Severe sepsis (Resolved) Sepsis -- improving Case discussed with Dr. Rodriguez. No surgical intervention warranted at this time. Will re-image right thigh/knee in a few days and follow up as scheduled as an outpatient.
[2017-10-30 12:06] LABS: HEPATITIS B SURFACE AG Negative (Negative); Hepatitis A AB, Total Positive (Negative); Hepatitis A IgM Antibody Negative (Negative); Hepatitis B Core AB IgM Negative (Negative); Hepatitis B Core Ab Total Negative (Negative); Hepatitis C Ab 0.6 s/co ratio (0.0-0.9)
[2017-10-30 12:51] LABS: Bedside Glucose 98 mg/dL (70-110)
[2017-10-30] MEDS: Doxycycline 100 MG CAPSULE PO ×2 (12:57→21:07)
[2017-10-30 13:32] LABS: Hep B Surface Antibodies Non Reactive (.)
[2017-10-30 18:46] LABS: Bedside Glucose 118 mg/dL (70-110)
[2017-10-30 21:50] LABS: Bedside Glucose 102 mg/dL (70-110)
[2017-10-31] VITALS (27 sets, daily range): BP systolic 93–118; BP diastolic 53–73; PULSE 91–103; RESP 13–21; TEMP 36.4–37.3; O2SAT 94–100
[2017-10-31] MEDS: 0.9% Normal Saline 1,000 ML 150 ML IV (04:51)
[2017-10-31] MEDS: CHLORHEXIDINE GLUC 2% CLOTH 1 EACH TOWELETTE TOPICAL (04:51)
[2017-10-31] MEDS: Acetaminophen 325 MG Tablet 650 MG PO (04:53)
[2017-10-31 05:23] LABS: Anion Gap 12 (5-15); BUN 33 mg/dL (7-18); BUN/Creat Ratio 12.8 RATIO (10-20); Calcium,Total 7.9 mg/dL (8.5-10.1); Chloride 112 mmol/L (98-107); Creatinine, Serum 2.57 mg/dL (0.70-1.30); EST Glomerular Filtration Rate 28 mL/min (>60); Est Glom Filt Rate - Afr Amer 33 mL/min (>60); Estimated Creatinine Clearance 36.87 ml/min; Glucose 63 mg/dL (74-106); Potassium 4.5 mmol/L (3.5-5.1); Sodium Level 145 mmol/L (136-145)
[2017-10-31 05:37] LABS: Absolute Lymphocyte Count 5.89 X10^3/ul (0.83-4.51); Absolute Neutrophil Count 7.3 X10^3/uL (2.0-7.7); Basophil# 0.38 X10^3/uL; Basophil% 1.6 % (0-1); Hematocrit 27.1 % (40-54); Hemoglobin 8.9 g/dl (13.0-16.5); Lymphocyte # 5.89 X10^3/ul (4.0); Lymphocyte % 25.5 % (19-41); Mean Corp Hgb Conc 32.8 g/gl (32-36); Mean Corpuscular Hgb 26.6 pg (27.0-32.0); Mean Corpuscular Volume 81.1 fL (80-94); Mean Platelet Vol. 10.2 fl (6.2-12.0); Monocyte% 4.8 % (0-10); Neutrophil # 7.29 X10^3/uL (2.7-7.7); Neutrophil % 31.7 % (47-70); Platelet Count 125 K/mm3 (150-450); RBC Distribution Width CV 18.7 % (11.6-14.6); RBC Distribution Width SD 55.6 fl (35.1-43.9); Red Blood Count 3.34 M/mm3 (4.6-6.2); White Blood Count 23.1 K/mm3 (4.4-11.0)
[2017-10-31 05:55] LABS: Eosinophil# 8.32 X10^3/uL
[2017-10-31 05:56] LABS: Differential Indicated SCAN CRITERIA MET; POSITIVE COUNT NO; POSITIVE DIFFERENTIAL YES; POSITIVE MORPHOLOGY YES
[2017-10-31 06:09] LABS: International Normalized Ratio 4.4
[2017-10-31] MEDS: Piperacil/Tazobactam 3.375 GM/50 ML ML IV (06:11)
[2017-10-31] MEDS: Dextrose 50%-Water 25 GM/50 ML DISP.SYRIN IV (06:49)
[2017-10-31 06:56] LABS: Bedside Glucose 58 mg/dL (70-110)
[2017-10-31 07:08] LABS: Differential Comment SCANNED
--- NOTE | 2017-10-31 07:24 | PN_ITS ---
Subjective: The patient was seen and examined at the bedside this morning. Events from the last 24 hours have been reviewed. The patient is currently afebrile, hemodynamically stable and maintaining appropriate oxygen saturations on room air. No overnight issues were identified by the nursing staff. Hemoglobin is stable following transfusion of packed red blood cells. INR remains elevated at 4.4. The patient's rash is clinically improving, per patient and nursing staff reports. Issues still remain pertaining to the patient's Morejon catheter. There has been a significant amount of urine leakage around his current indwelling Morejon catheter. Objective: The patient's most recent lab work, culture data and imaging studies have all been personally reviewed. Blood and urine cultures have shown no growth to date. General: Alert, Oriented x3, Cooperative, No apparent distress HEENT: Atraumatic, PERRLA, Normocephalic Oral: No Gingival or Mucosal Lesions/ Ulcerations Neck: Supple, No Nodes, Trachea Midline Lungs: No rhonchi, No wheeze, No rales, Diminished Cardiovascular: Regular rate, Regular Rhythm, Normal S1, Normal S2, No murmurs Abdomen: Bowel Sounds Present, Soft, Non Tender Extremities: No clubbing, No cyanosis, Edema Skin: - - Diffuse desquamating maculopapular rash Musculoskeletal: No Muscle Wasting Lymphatic: No Cervical, Supraclavicular, or Inguinal Adenopathy Neurological: Neuro grossly intact Psych/Mental Status: Normal Affect, Appropriate Vital Signs Temp Pulse Resp BP Pulse Ox 99.2 F H 91 14 103/56 L 94 10/31/17 00:00 10/31/17 06:00 10/31/17 06:00 10/31/17 06:00 10/31/17 07:01 Oxygen Flow Rate (L/min) 1 Oxygen Delivery Method Room Air Weight: 199 lb 8.293 oz Body Mass Index (BMI) 23.6 Intake and Output for Last 24 Hours 10/29/17 10/30/17 10/31/17 23:59 23:59 23:59 Intake Total 4724 / 4724 6234.6 / 6234.6 1014 / 1014 Output Total 1100 / 1100 1635 / 1635 500 / 500 Balance 3624 / 3624 4599.6 / 4599.6 514 / 514 Labs (Last 48 Hours) 10/29/17 10/29/17 10/29/17 05:00 07:30 11:15 WBC RBC Hgb Hct MCV MCH MCHC RDW RDW Differential Plt Count MPV Immature Gran % (Auto) Neut % (Auto) Lymph % (Auto) [place] % (Auto) Eos % (Auto) Baso % (Auto) Absolute Neuts (auto) Absolute Lymphs (auto) Total Counted Differential Comment Diff Path Review PT INR Sodium Potassium Chloride Carbon Dioxide Anion Gap BUN Creatinine Estim Creat Clear Calc Est GFR (MDRD) Af Amer Est GFR (MDRD) Non-Af BUN/Creatinine Ratio Glucose Calcium Total Bilirubin Direct Bilirubin AST ALT Alkaline Phosphatase Troponin I 0.018 0.025 Total Protein Albumin Globulin Albumin/Globulin Ratio Hepatitis A IgM Ab Negative Hepatitis A Ab Total Positive H Hep Bs Antigen Negative Hep B Core Total Ab Negative Hep B Core IgM Ab Negative Hepatitis C Ab Confirm 0.6 Hepatitis C Comment Comment POC Glucose 10/29/17 10/29/17 10/29/17 11:15 16:00 17:40 WBC RBC Hgb 8.1 L Hct 24.0 L MCV MCH MCHC RDW RDW Differential Plt Count MPV Immature Gran % (Auto) Neut % (Auto) Lymph % (Auto) [place] % (Auto) Eos % (Auto) Baso % (Auto) Absolute Neuts (auto) Absolute Lymphs (auto) Total Counted Differential Comment Diff Path Review PT 30.5 H INR 2.9 Sodium Potassium Chloride Carbon Dioxide Anion Gap BUN Creatinine Estim Creat Clear Calc Est GFR (MDRD) Af Amer Est GFR (MDRD) Non-Af BUN/Creatinine Ratio Glucose Calcium Total Bilirubin 3.10 H Direct Bilirubin 2.28 H AST 1016 H ALT 484 H Alkaline Phosphatase 640 H Troponin I Total Protein 6.4 Albumin 1.5 L Globulin 4.9 H Albumin/Globulin Ratio Hepatitis A IgM Ab Hepatitis A Ab Total Hep Bs Antigen Hep B Core Total Ab Hep B Core IgM Ab Hepatitis C Ab Confirm Hepatitis C Comment POC Glucose 10/30/17 10/30/17 10/30/17 04:50 04:50 04:50 WBC 16.3 H RBC 2.53 L Hgb 6.6 L Hct 20.1 L MCV 79.4 L MCH 26.1 L MCHC 32.8 RDW 19.4 H RDW Differential 56.6 H Plt Count 125 L MPV 9.7 Immature Gran % (Auto) 0.400 Neut % (Auto) 37.9 L Lymph % (Auto) 31.0 [place] % (Auto) 4.8 Eos % (Auto) 24.1 H Baso % (Auto) 1.8 H Absolute Neuts (auto) 6.2 Absolute Lymphs (auto) 5.07 H Total Counted Not Reportable Differential Comment SCANNED Diff Path Review June foll PT 38.2 H INR 3.9 H* Sodium 143 Potassium 4.2 Chloride 110 H Carbon Dioxide 21.0 Anion Gap 12 BUN 37 H Creatinine 2.72 H Estim Creat Clear Calc 34.84 Est GFR (MDRD) Af Amer 31 L Est GFR (MDRD) Non-Af 26 L BUN/Creatinine Ratio 13.6 Glucose 61 L Calcium 6.9 L Total Bilirubin 4.10 H Direct Bilirubin AST 1723 H ALT 659 H Alkaline Phosphatase 559 H Troponin I Total Protein 5.5 L Albumin 1.2 L Globulin 4.3 H Albumin/Globulin Ratio 0.3 L Hepatitis A IgM Ab Hepatitis A Ab Total Hep Bs Antigen Hep B Core Total Ab Hep B Core IgM Ab Hepatitis C Ab Confirm Hepatitis C Comment POC Glucose 10/30/17 10/30/17 10/30/17 06:45 11:23 17:52 WBC RBC Hgb Hct MCV MCH MCHC RDW RDW Differential Plt Count MPV Immature Gran % (Auto) Neut % (Auto) Lymph % (Auto) [place] % (Auto) Eos % (Auto) Baso % (Auto) Absolute Neuts (auto) Absolute Lymphs (auto) Total Counted Differential Comment Diff Path Review PT INR Sodium Potassium Chloride Carbon Dioxide Anion Gap BUN Creatinine Estim Creat Clear Calc Est GFR (MDRD) Af Amer Est GFR (MDRD) Non-Af BUN/Creatinine Ratio Glucose Calcium Total Bilirubin Direct Bilirubin AST ALT Alkaline Phosphatase Troponin I Total Protein Albumin Globulin Albumin/Globulin Ratio Hepatitis A IgM Ab Hepatitis A Ab Total Hep Bs Antigen Hep B Core Total Ab Hep B Core IgM Ab Hepatitis C Ab Confirm Hepatitis C Comment POC Glucose 68 L 98 118 H 10/30/17 10/31/17 10/31/17 21:35 04:50 04:50 WBC RBC Hgb Hct MCV MCH MCHC RDW RDW Differential Plt Count MPV Immature Gran % (Auto) Neut % (Auto) Lymph % (Auto) [place] % (Auto) Eos % (Auto) Baso % (Auto) Absolute Neuts (auto) Absolute Lymphs (auto) Total Counted Differential Comment Diff Path Review PT 42.0 H INR 4.4 H* Sodium 145 Potassium 4.5 Chloride 112 H Carbon Dioxide 21.0 Anion Gap 12 BUN 33 H Creatinine 2.57 H Estim Creat Clear Calc 36.87 Est GFR (MDRD) Af Amer 33 L Est GFR (MDRD) Non-Af 28 L BUN/Creatinine Ratio 12.8 Glucose 63 L Calcium 7.9 L Total Bilirubin Direct Bilirubin AST ALT Alkaline Phosphatase Troponin I Total Protein Albumin Globulin Albumin/Globulin Ratio Hepatitis A IgM Ab Hepatitis A Ab Total Hep Bs Antigen Hep B Core Total Ab Hep B Core IgM Ab Hepatitis C Ab Confirm Hepatitis C Comment POC Glucose 102 10/31/17 10/31/17 04:50 06:48 WBC 23.1 H RBC 3.34 L Hgb 8.9 L Hct 27.1 L MCV 81.1 MCH 26.6 L MCHC 32.8 RDW 18.7 H RDW Differential 55.6 H Plt Count 125 L MPV 10.2 Immature Gran % (Auto) 0.400 Neut % (Auto) 31.7 L Lymph % (Auto) 25.5 [place] % (Auto) 4.8 Eos % (Auto) 36.0 H Baso % (Auto) 1.6 H Absolute Neuts (auto) 7.3 Absolute Lymphs (auto) 5.89 H Total Counted Not Reportable Differential Comment SCANNED Diff Path Review May foll PT INR Sodium Potassium Chloride Carbon Dioxide Anion Gap BUN Creatinine Estim Creat Clear Calc Est GFR (MDRD) Af Amer Est GFR (MDRD) Non-Af BUN/Creatinine Ratio Glucose Calcium Total Bilirubin Direct Bilirubin AST ALT Alkaline Phosphatase Troponin I Total Protein Albumin Globulin Albumin/Globulin Ratio Hepatitis A IgM Ab Hepatitis A Ab Total Hep Bs Antigen Hep B Core Total Ab Hep B Core IgM Ab Hepatitis C Ab Confirm Hepatitis C Comment POC Glucose 58 L Microbiology 10/29/17 12:30 Stool C. difficile DNA Amplification - Final 10/29/17 12:30 Stool Stool Occult Blood (SANDRA) - Final Clinical Impression(s) from Imaging Studies Chest X-Ray 10/28/17 19:51 IMPRESSION: Decreased inspiratory effort with bibasilar atelectasis. The study is otherwise unchanged. Electronically Signed: Frantz Paula DO at 20:07 EDT Tel [phone], Service support , Lower Extremity CT 10/28/17 19:52 IMPRESSION: 1. Right total knee arthroplasty. 2. Abscess which appears to involve the suprapatellar space and extends outward along the vastus medialis musculature. There is associated periosteal reaction on the femur without evidence of fracture or cortical disruption. Electronically Signed: Frantz Paula DO at 21:26 EDT Tel [phone], Service support , Gallbladder Ultrasound 10/28/17 20:42 IMPRESSION: 1. Mild hepatomegaly. This appears unchanged from prior study. 2. No evidence for gallbladder and biliary ductal abnormality. 3. Stable column of Hector within the right kidney. Electronically Signed: Frantz Paula DO at 21:32 EDT Tel [phone], Service support , Medical Necessity - Tobacco Use Smoking Status: Never smoker Assessment/Plan All Active Problems Fever with exanthematous rash (Acute) Septic shock (Acute) Coagulopathy (Acute) DAYNA (acute kidney injury) (Acute) Abscess of right thigh (Acute) Hematuria (Acute) 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 knee joint (Resolved) Atrial fibrillation with RVR (Resolved) Acute cystitis (Resolved) Severe sepsis (Resolved) RECOMMENDATIONS: 1. Hold all antibiotics pending evaluation by infectious diseases. 2. Discontinue supplemental IV fluids. 3. Check DARIELA, ANCA, urine eosinophils and dysmorphic RBCs. 4. Await evaluation by urology due to persistent leakage from Morejon catheter. 5. Continue to monitor INR daily along with hepatic function profile. 6. Check acetaminophen level. IMPRESSIONS: 1. Septic shock versus systemic drug reaction with multisystem involvement The patient was on treatment with IV antibiotics on an outpatient basis due to a right thigh abscess. However, culture data has been negative to date. The patient has been treated with vancomycin, Zyvox and doxycycline and reportedly developed a drug reaction to both vancomycin and Zyvox. The patient was transiently on vasopressor support. His antibiotics were transitioned to Zosyn and doxycycline on admission to the hospital. However, the patient had evidence of a desquamating rash concerning for a possible hypersensitivity reaction like DRESS vs SJS/TEN. Although he has stabilized from a hemodynamic perspective, the patient continues to have significant peripheral eosinophilia and worsening hepatitis and renal insufficiency. At this time, given the lack of culture data, I have advocated for the discontinuation of all antibiotics. I did have a lengthy discussion with dermatology regarding the patient's case. 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 I am also in agreement and do think it would be beneficial to have the patient evaluated by a formal dermatology team and followed longitudinally with regards to this issue. However, following a discussion with the patient, he is insistent that he remain here for ongoing treatment unless it becomes absolutely necessary that he be transferred. Therefore, I have discontinued all antibiotics and have placed the patient on IV steroids. We will continue to monitor him over the next 24-48 hours. 2. Acute hepatitis Unclear etiology at this time. Although the patient did have impaired hemodynamics, would anticipate plateau in transaminases if this is related to shock liver. Other potential etiologies include systemic involvement from a potential drug reaction. At this time, we will continue to monitor and provide supportive care. Recommend discontinuation of acetaminophen. Prior gallbladder ultrasound was unremarkable. 3. Acute kidney injury Possibly related to ischemic ATN from prior hypotension. Alternatively, given the patient's significant eosinophilia, acute interstitial nephritis is a possibility. Will check urine eosinophils and dysmorphic RBCs, given hematuria previously noted. Nephrology evaluation is pending. 4. Factor V Leiden with history of PE/DVT with supratherapeutic INR On Coumadin therapy at baseline. Supratherapeutic INR on presentation likely secondary to ongoing sepsis, antibiotics and fever. Continue to monitor INR daily. There is no evidence of active bleeding at this time. Systemic anticoagulation will need to be initiated, once the patient's INR becomes subtherapeutic. 5. Acute blood loss anemia secondary to hematuria The patient received 2 units of packed red blood cells with appropriate incrementation in hemoglobin level. Hematuria appears to have resolved at this time. However, there continues to be issues with the patient's Morejon. Urology consultation is currently pending. This note was generated with Peerideaation software. It may contain incorrect words, spelling, and punctuation that were not noted in checking the note before signing. Code Visit Inpatient E&M: 65171 [facility] L3
[2017-10-31 08:24] LABS: AST(SGOT) 2034 U/L (15-37); Alanine Aminotransfer ALT/SGPT 863 U/L (16-61); Albumin, Serum 1.6 g/dL (3.2-5.0); Alkaline Phosphatase 553 U/L (45-117); Bilirubin, Direct 5.12 mg/dL (0.00-0.30); Globulin 5.2 g/dL (2.2-4.2); Protein, Total 6.8 g/dL (6.4-8.2)
--- NOTE | 2017-10-31 09:52 | CASEMGMT ---
RN CM Note: Met with pt's daughter and . Pt's condition has weakened at home and they are concerned he may need rehab prior to returning home. 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 they request evaluation for [facility] first, and if this is not possible, then will consider SNF. CM will continue to follow and assist with dc planning. Sameera TUBBS RN ACM
--- NOTE | 2017-10-31 10:59 | PCM.PN.HOSP ---
Patient Problems: Active and Suspected Problems Septic shock (Acute) Coagulopathy (Acute) DAYNA (acute kidney injury) (Acute) Abscess of right thigh (Acute) Hematuria (Acute) Subjective: Patient seen and examined. He was lying comfortably in bed. He denies any fever or chills, any cough or chest pain, any shortness of breath, abdominal pain, any diarrhea vomiting. Review of systems is otherwise negative. Labs and vitals reviewed. Vitals/I&O's: Vital Signs Temp Pulse Resp BP Pulse Ox 97.8 F 94 18 112/55 L 99 10/31/17 08:00 10/31/17 08:00 10/31/17 08:00 10/31/17 08:00 10/31/17 08:00 Oxygen Flow Rate (L/min) 1 Oxygen Delivery Method Room Air Weight: 199 lb 8.293 oz Body Mass Index (BMI) 23.6 Intake and Output for Last 24 Hours 10/29/17 10/30/17 10/31/17 23:59 23:59 23:59 Intake Total 4724 / 4724 6234.6 / 6234.6 1014 / 1014 Output Total 1100 / 1100 1635 / 1635 500 / 500 Balance 3624 / 3624 4599.6 / 4599.6 514 / 514 General: Alert, Oriented x3, Cooperative HEENT: Atraumatic, PERRLA, EOMI, Normocephalic, - - Jaundiced sclera Oral: Moist Mucosa Neck: Supple, No JVD, Negative Carotid Bruits Lungs: Clear to auscultation, Normal air movement, No rhonchi, No wheeze, No rales Cardiovascular: Regular rate, Regular Rhythm, Normal S1, Normal S2, No murmurs Abdomen: Bowel Sounds Present, Soft, Non Tender, Non-Distended, No Hepato-splenomegaly Extremities: No clubbing, No cyanosis, No edema, Capillary Refill Less than 3 Seconds Skin: No breakdown, - - flaky rash all over his face and head. Musculoskeletal: No Tenderness to Palpation of Joints or Extremities Lymphatic: No Cervical, Supraclavicular, or Inguinal Adenopathy Neurological: Cranial nerves II-XII grossly intact, Neuro grossly intact, Motor Exam 5/5 strength throughout Psych/Mental Status: Normal Affect, Appropriate, Alert and oriented to time, place, person, mood and affect Microbiology Past 72 Hours 10/29/17 12:30 Stool C. difficile DNA Amplification - Final 10/29/17 12:30 Stool Stool Occult Blood (SANDRA) - Final Laboratory Results 10/29/17 05:00: Hepatitis A IgM Ab Negative, Hepatitis A Ab Total Positive H, Hep Bs Antigen Negative, Hep B Core Total Ab Negative, Hep B Core IgM Ab Negative, Hepatitis C Ab Confirm 0.6, Hepatitis C Comment Comment 10/30/17 04:50: Diff Path Review June [facility] 10/30/17 11:23: POC Glucose 98 10/30/17 17:52: POC Glucose 118 H 10/30/17 21:35: POC Glucose 102 10/31/17 04:50: PT 42.0 H, INR 4.4 H* 10/31/17 04:50: Sodium 145, Potassium 4.5, Chloride 112 H, Carbon Dioxide 21.0, Anion Gap 12, BUN 33 H, Creatinine 2.57 H, Estim Creat Clear Calc 36.87, Est GFR (MDRD) Af Amer 33 L, Est GFR (MDRD) Non-Af 28 L, BUN/Creatinine Ratio 12.8, Glucose 63 L, Calcium 7.9 L 10/31/17 04:50: WBC 23.1 H, RBC 3.34 L, Hgb 8.9 L, Hct 27.1 L, MCV 81.1, MCH 26.6 L, MCHC 32.8, RDW 18.7 H, RDW Differential 55.6 H, Plt Count 125 L, MPV 10.2, Immature Gran % (Auto) 0.400, Neut % (Auto) 31.7 L, Lymph % (Auto) 25.5, [place] % (Auto) 4.8, Eos % (Auto) 36.0 H, Baso % (Auto) 1.6 H, Absolute Neuts (auto) 7.3, Absolute Lymphs (auto) 5.89 H, Total Counted Not Reportable, Differential Comment SCANNED, Diff Path Review [facility] 10/31/17 04:50: Total Bilirubin 6.60 H, Direct Bilirubin 5.12 H, AST 2034 H, ALT 863 H, Alkaline Phosphatase 553 H, Total Protein 6.8, Albumin 1.6 L, Globulin 5.2 H 10/31/17 06:48: POC Glucose 58 L Current Medications Chlorhexidine Gluconate () 1 each TOPICAL DAILY [facility] Last Admin: 10/31/17 04:51 Dose: 1 each Doxycycline Monohydrate (Doxycycline) 100 mg PO Q12 [facility] Last Admin: 10/30/17 21:07 Dose: 100 mg Emollient Ointment (Eucerin Intensive Repair) 1 applic TOPICAL 4X/DAY PRN PRN; Protocol PRN Reason: Dry Skin Last Admin: 10/31/17 04:52 Dose: 1 applicatio Heparin Sodium (Beef Lung) (Heparin 500 Unit/5 Ml (100/Ml)) 500 unit IV UD PRN PRN Reason: HEPARIN FLUSH Piperacillin Sod/Tazobactam Sod (Zosyn) 3.375 gm in 50 mls @ 12.5 mls/hr IV Q8 [facility] Last Admin: 10/31/17 06:11 Dose: 12.5 mls/hr Sodium Chloride () 250 mls @ 15 mls/hr IV .[id number] PRN PRN Reason: SALINE FLUSH Lactobacillus Acidophilus (Acidophilus) 2 tablet PO 4X/DAY [facility] Last Admin: 10/30/17 21:07 Dose: 2 tablet Magnesium Hydroxide (Milk Of Magnesia) 30 ml PO DAILY PRN PRN PRN Reason: Constipation Nutritional Formula (Lactose Free) (Ensure Enlive) 120 ml PO 4X/DAY [facility] Last Admin: 10/30/17 21:13 Dose: 120 ml Sodium Chloride () 5 - 30 ml IV UD PRN PRN Reason: SALINE FLUSH Last Admin: 10/30/17 17:39 Dose: 30 ml Sodium Chloride () 10 - 20 ml IV UD PRN PRN Reason: PICC FLUSH Medical Necessity - Tobacco Use Smoking Status: Never smoker Assessment/Plan All Active Problems Fever with exanthematous rash (Acute) Septic shock (Acute) Coagulopathy (Acute) DAYNA (acute kidney injury) (Acute) Abscess of right thigh (Acute) Hematuria (Acute) 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 knee joint (Resolved) Atrial fibrillation with RVR (Resolved) Acute cystitis (Resolved) Severe sepsis (Resolved) 1. Septic shock due to possible left thigh abscess admitted with septic shock which has now resolved with ad inistration of IVF urine cultures and blood cultures negative. has been off pressors since 10/29/17 BP this morning is 112/55 wbc up to 23.1 today; was 23.2 on admission and trended down to 16.3, but is now up again; neutrophil count however is down. SIRS criteria is 1/4- leucocytosis; temperature peaked at 99.4F overnight. was on IV doxycycline and zosyn orhtopedics on board; do not think it is a thigh abscess recommend reimaging of thigh in a few days. 2. 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 Blood ultrasound done earlier during this admission was essentially normal with mild hepatomegaly unchanged from previous scans done. per discussion with critical care, plan is to trend liver enzymes as patient is clinically improving; critical care physician seeking dermatology opinion to see- channel rougher recommended transfer to tertiary facility as we dont have inhouse dermatology at [facility]. Patient refused transfer. Started on IV steroids 3. Anemia due to acute blood loss Hb dropped to 6.6 from hematuria. s/p transfusion of 2 units of pRBC Hb today is up to 8.9. will continue to monitor 4. Supratherapeutic INR, due to worsening liver function INR today is 4.4 coumadin on hold. is s/p infusion of FFP's. No Active bleeding focus now. will monitor 5. DAYNA Cr is 2.57; baseline Cr is <1 it was initially thought that DAYNA was due to septic shock; however, even though she has resolved, creatinine still remained elevated. It was believed that it was due to ATN; urine output was 1.1 on day of admission in 1 yesterday the patient has remained in positive balance of about 8.7 L since admission. will get nephrology consult 6. Factor V Leiden Deficiency coumadin held o/a of supratherapeutic INR will monitor DVT prophylaxis: SCDs. No anticoagulation o/a of liver derangement and elevated INR. This note was generated with [employer] software. It may contain incorrect words, spelling, and punctuation that were not noted in checking the note before signing. Code Visit Inpatient E&M: 37890 [facility] L3
--- NOTE | 2017-10-31 11:24 | PN_ITS ---
Patient Problems: Active and Suspected Problems Septic shock (Acute) Coagulopathy (Acute) DAYNA (acute kidney injury) (Acute) Abscess of right thigh (Acute) Hematuria (Acute) Subjective: Patient seen and examined. He was lying comfortably in bed. He denies any fever or chills, any cough or chest pain, any shortness of breath, abdominal pain, any diarrhea vomiting. Review of systems is otherwise negative. Labs and vitals reviewed. Vitals/I&O's: Vital Signs Temp Pulse Resp BP Pulse Ox 97.8 F 94 18 112/55 L 99 10/31/17 08:00 10/31/17 08:00 10/31/17 08:00 10/31/17 08:00 10/31/17 08:00 Oxygen Flow Rate (L/min) 1 Oxygen Delivery Method Room Air Weight: 199 lb 8.293 oz Body Mass Index (BMI) 23.6 Intake and Output for Last 24 Hours 10/29/17 10/30/17 10/31/17 23:59 23:59 23:59 Intake Total 4724 / 4724 6234.6 / 6234.6 1014 / 1014 Output Total 1100 / 1100 1635 / 1635 500 / 500 Balance 3624 / 3624 4599.6 / 4599.6 514 / 514 General: Alert, Oriented x3, Cooperative HEENT: Atraumatic, PERRLA, EOMI, Normocephalic, - - Jaundiced sclera Oral: Moist Mucosa Neck: Supple, No JVD, Negative Carotid Bruits Lungs: Clear to auscultation, Normal air movement, No rhonchi, No wheeze, No rales Cardiovascular: Regular rate, Regular Rhythm, Normal S1, Normal S2, No murmurs Abdomen: Bowel Sounds Present, Soft, Non Tender, Non-Distended, No Hepato- splenomegaly Extremities: No clubbing, No cyanosis, No edema, Capillary Refill Less than 3 Seconds Skin: No breakdown, - - flaky rash all over his face and head. Musculoskeletal: No Tenderness to Palpation of Joints or Extremities Lymphatic: No Cervical, Supraclavicular, or Inguinal Adenopathy Neurological: Cranial nerves II-XII grossly intact, Neuro grossly intact, Motor Exam 5/5 strength throughout Psych/Mental Status: Normal Affect, Appropriate, Alert and oriented to time, place, person, mood and affect Microbiology Past 72 Hours 10/29/17 12:30 Stool C. difficile DNA Amplification - Final 10/29/17 12:30 Stool Stool Occult Blood (SANDRA) - Final Laboratory Results 10/29/17 05:00: Hepatitis A IgM Ab Negative, Hepatitis A Ab Total Positive H, Hep Bs Antigen Negative, Hep B Core Total Ab Negative, Hep B Core IgM Ab Negative, Hepatitis C Ab Confirm 0.6, Hepatitis C Comment Comment 10/30/17 04:50: Diff Path Review [facility] 10/30/17 11:23: POC Glucose 98 10/30/17 17:52: POC Glucose 118 H 10/30/17 21:35: POC Glucose 102 10/31/17 04:50: PT 42.0 H, INR 4.4 H* 10/31/17 04:50: Sodium 145, Potassium 4.5, Chloride 112 H, Carbon Dioxide 21.0, Anion Gap 12, BUN 33 H, Creatinine 2.57 H, Estim Creat Clear Calc 36.87, Est GFR (MDRD) Af Amer 33 L, Est GFR (MDRD) Non-Af 28 L, BUN/Creatinine Ratio 12.8, Glucose 63 L, Calcium 7.9 L 10/31/17 04:50: WBC 23.1 H, RBC 3.34 L, Hgb 8.9 L, Hct 27.1 L, MCV 81.1, MCH 26.6 L, MCHC 32.8, RDW 18.7 H, RDW Differential 55.6 H, Plt Count 125 L, MPV 10.2, Immature Gran % (Auto) 0.400, Neut % (Auto) 31.7 L, Lymph % (Auto) 25.5, Gray % (Auto) 4.8, Eos % (Auto) 36.0 H, Baso % (Auto) 1.6 H, Absolute Neuts ( auto) 7.3, Absolute Lymphs (auto) 5.89 H, Total Counted Not Reportable, Differential Comment SCANNED, Diff Path Review [facility] 10/31/17 04:50: Total Bilirubin 6.60 H, Direct Bilirubin 5.12 H, AST 2034 H, ALT 863 H, Alkaline Phosphatase 553 H, Total Protein 6.8, Albumin 1.6 L, Globulin 5.2 H 10/31/17 06:48: POC Glucose 58 L Current Medications Chlorhexidine Gluconate () 1 each TOPICAL DAILY [facility] Last Admin: 10/31/17 04:51 Dose: 1 each Doxycycline Monohydrate (Doxycycline) 100 mg PO Q12 [facility] Last Admin: 10/30/17 21:07 Dose: 100 mg Emollient Ointment (Eucerin Intensive Repair) 1 applic TOPICAL 4X/DAY PRN PRN; Protocol PRN Reason: Dry Skin Last Admin: 10/31/17 04:52 Dose: 1 applicatio Heparin Sodium (Beef Lung) (Heparin 500 Unit/5 Ml (100/Ml)) 500 unit IV UD PRN PRN Reason: HEPARIN FLUSH Piperacillin Sod/Tazobactam Sod (Zosyn) 3.375 gm in 50 mls @ 12.5 mls/hr IV Q8 [facility] Last Admin: 10/31/17 06:11 Dose: 12.5 mls/hr Sodium Chloride () 250 mls @ 15 mls/hr IV .[id number] PRN PRN Reason: SALINE FLUSH Lactobacillus Acidophilus (Acidophilus) 2 tablet PO 4X/DAY [facility] Last Admin: 10/30/17 21:07 Dose: 2 tablet Magnesium Hydroxide (Milk Of Magnesia) 30 ml PO DAILY PRN PRN PRN Reason: Constipation Nutritional Formula (Lactose Free) (Ensure Enlive) 120 ml PO 4X/DAY [facility] Last Admin: 10/30/17 21:13 Dose: 120 ml Sodium Chloride () 5 - 30 ml IV UD PRN PRN Reason: SALINE FLUSH Last Admin: 10/30/17 17:39 Dose: 30 ml Sodium Chloride () 10 - 20 ml IV UD PRN PRN Reason: PICC FLUSH Medical Necessity - Tobacco Use Smoking Status: Never smoker Assessment/Plan All Active Problems Fever with exanthematous rash (Acute) Septic shock (Acute) Coagulopathy (Acute) DAYNA (acute kidney injury) (Acute) Abscess of right thigh (Acute) Hematuria (Acute) 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 knee joint (Resolved) Atrial fibrillation with RVR (Resolved) Acute cystitis (Resolved) Severe sepsis (Resolved) 1. Septic shock due to possible left thigh abscess * admitted with septic shock which has now resolved with ad inistration of IVF * urine cultures and blood cultures negative. * has been off pressors since 10/29/17 * BP this morning is 112/55 * wbc up to 23.1 today; was 23.2 on admission and trended down to 16.3, but is now up again; neutrophil count however is down. * SIRS criteria is 1/4- leucocytosis; temperature peaked at 99.4F overnight. * was on IV doxycycline and zosyn * orhtopedics on board; do not think it is a thigh abscess * recommend reimaging of thigh in a few days. * 2. 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 * Blood ultrasound done earlier during this admission was essentially normal with mild hepatomegaly unchanged from previous scans done. * per discussion with critical care, plan is to trend liver enzymes as patient is clinically improving; * critical care physician seeking dermatology opinion to see- presentation specialist recommended transfer to tertiary facility as we dont have inhouse dermatology at [facility]. Patient refused transfer. Started on IV steroids * 3. Anemia due to acute blood loss * Hb dropped to 6.6 from hematuria. s/p transfusion of 2 units of pRBC * Hb today is up to 8.9. * will continue to monitor * 4. Supratherapeutic INR, due to worsening liver function * INR today is 4.4 * coumadin on hold. is s/p infusion of FFP's. * No Active bleeding focus now. * will monitor * 5. DAYNA * Cr is 2.57; baseline Cr is <1 * it was initially thought that DAYNA was due to septic shock; however, even though she has resolved, creatinine still remained elevated. * It was believed that it was due to ATN; urine output was 1.1 on day of admission in 1 yesterday the patient has remained in positive balance of about 8.7 L since admission. * will get nephrology consult * 6. Factor V Leiden Deficiency * coumadin held o/a of supratherapeutic INR * will monitor * DVT prophylaxis: SCDs. No anticoagulation o/a of liver derangement and elevated INR. This note was generated with [employer] software. It may contain incorrect words, spelling, and punctuation that were not noted in checking the note before signing. Code Visit Inpatient E&M: 18618 Subs Hosp L3
[2017-10-31 11:55] LABS: Acetaminophen (Tylenol) Level 2.5 ug/mL (10.0-30.0)
--- NOTE | 2017-10-31 12:29 | PCM.HP.ID ---
Reason for Consult: Multiorgan system failure concern of severe sepsis. Rash Consulted by: Dr. Moeller History of Present Illness: The patient is a 57 year old M [] This a very pleasant 57-year-old gentleman with a recent history of a right total knee arthroplasty and had reexploration in late August. Patient is well-known to my partner with management of antimicrobial therapy. Patient was admitted late last week with high fevers and worsening diffuse rash. Patient was found to have multiorgan system failure with acute renal injury, markedly elevated liver function test, patient was also noted to have a leukocytosis with predominance of eosinophils. He is currently responsive conversive denies any abdominal pain denies any right knee pain. No significant gastrointestinal distress. Cardiopulmonary status appears stable. Patient was placed on broad-spectrum antimicrobial therapy early during this hospitalization. Patient apparently was on doxycycline as an outpatient. Patient has been on parenteral vancomycin upon discharge from his last hospitalization. Microbiological data from this admission and previous admissions reviewed. Also the opportunity to talk to Dr. Moeller critical care physician earlier today. - Medical History Past Medical History (Chronic Problems): Chronic Problems Factor V Leiden (Chronic) Elevated LFTs (Chronic) Anemia (Chronic) Status post total right knee replacement (Chronic) History of pulmonary embolism (Chronic) History of DVT (deep vein thrombosis) (Chronic) Allergies/Adverse Reactions: Allergies Sulfa (Sulfonamide Antibiotics) Allergy (Verified 10/09/17 10:25) Unknown vancomycin Allergy (Verified 10/12/17 12:41) Fever and skin rash ceftriaxone Adverse Reaction (Verified 10/28/17 18:59) Rash linezolid Adverse Reaction (Verified 10/28/17 18:59) Rash Home Medications: Ambulatory Orders Medication Instructions Recorded Acetaminophen [Tylenol] 1,000 mg PO PRN PRN 08/24/17 Ferrous Sulfate [Iron] 325 mg PO BID #60 tab 08/26/17 Docusate Sodium [Colace] 100 mg PO BID 09/18/17 Warfarin [Coumadin] 8 mg PO DAILY 10/09/17 Doxycycline 100 mg PO BID 30 Days #60 cap 10/12/17 - Social History SMOKING STATUS:: Never smoker Review of Systems Comment: Review of systems as stated in history of present illness others negative Vital Signs Temp Pulse Resp BP Pulse Ox 97.8 F 94 18 112/55 L 99 10/31/17 08:00 10/31/17 08:00 10/31/17 08:00 10/31/17 08:00 10/31/17 08:00 Oxygen Flow Rate (L/min) 1 Oxygen Delivery Method Room Air Weight: 90.5 kg Body Mass Index (BMI) 23.6 Microbiology Past 72 Hours 10/29/17 12:30 C. difficile DNA Amplification - Final Stool 10/29/17 12:30 Stool Occult Blood (SANDRA) - Final Stool Laboratory Tests Past 24 Hrs 10/29/17 10/30/17 10/31/17 05:00 04:50 04:50 WBC RBC Hgb Hct MCV MCH MCHC RDW RDW Differential Plt Count MPV Immature Gran % (Auto) Neut % (Auto) Lymph % (Auto) [place] % (Auto) Eos % (Auto) Baso % (Auto) Absolute Neuts (auto) Absolute Lymphs (auto) Total Counted Differential Comment Diff Path Review May foll PT 42.0 H INR 4.4 H* Sodium Potassium Chloride Carbon Dioxide Anion Gap BUN Creatinine Estim Creat Clear Calc Est GFR (MDRD) Af Amer Est GFR (MDRD) Non-Af BUN/Creatinine Ratio Glucose Calcium Total Bilirubin Direct Bilirubin AST ALT Alkaline Phosphatase Total Protein Albumin Globulin Acetaminophen DARIELA Screen c-ANCA Antibody p-ANCA Antibody ALIVIA-1 Antibody SS-A/Ro IgG Antibody SS-B/La IgG Antibody Sm (Howe) Antibody DROSS PULLER Antibody Scl-70 Scleroderma Ab Double Strand DNA Ab Centromere B Antibody Hepatitis A IgM Ab Negative Hepatitis A Ab Total Positive H Hep Bs Antigen Negative Hep B Core Total Ab Negative Hep B Core IgM Ab Negative Hepatitis C Ab Confirm 0.6 Hepatitis C Comment Comment 10/31/17 10/31/17 10/31/17 04:50 04:50 04:50 WBC 23.1 H RBC 3.34 L Hgb 8.9 L Hct 27.1 L MCV 81.1 MCH 26.6 L MCHC 32.8 RDW 18.7 H RDW Differential 55.6 H Plt Count 125 L MPV 10.2 Immature Gran % (Auto) 0.400 Neut % (Auto) 31.7 L Lymph % (Auto) 25.5 [place] % (Auto) 4.8 Eos % (Auto) 36.0 H Baso % (Auto) 1.6 H Absolute Neuts (auto) 7.3 Absolute Lymphs (auto) 5.89 H Total Counted Not Reportable Differential Comment SCANNED Diff Path Review May foll PT INR Sodium 145 Potassium 4.5 Chloride 112 H Carbon Dioxide 21.0 Anion Gap 12 BUN 33 H Creatinine 2.57 H Estim Creat Clear Calc 36.87 Est GFR (MDRD) Af Amer 33 L Est GFR (MDRD) Non-Af 28 L BUN/Creatinine Ratio 12.8 Glucose 63 L Calcium 7.9 L Total Bilirubin 6.60 H Direct Bilirubin 5.12 H AST 2034 H ALT 863 H Alkaline Phosphatase 553 H Total Protein 6.8 Albumin 1.6 L Globulin 5.2 H Acetaminophen DARIELA Screen c-ANCA Antibody p-ANCA Antibody ALIVIA-1 Antibody SS-A/Ro IgG Antibody SS-B/La IgG Antibody Sm (Howe) Antibody DROSS PULLER Antibody Scl-70 Scleroderma Ab Double Strand DNA Ab Centromere B Antibody Hepatitis A IgM Ab Hepatitis A Ab Total Hep Bs Antigen Hep B Core Total Ab Hep B Core IgM Ab Hepatitis C Ab Confirm Hepatitis C Comment 10/31/17 10/31/17 10/31/17 11:00 11:00 11:00 WBC RBC Hgb Hct MCV MCH MCHC RDW RDW Differential Plt Count MPV Immature Gran % (Auto) Neut % (Auto) Lymph % (Auto) [place] % (Auto) Eos % (Auto) Baso % (Auto) Absolute Neuts (auto) Absolute Lymphs (auto) Total Counted Differential Comment Diff Path Review PT INR Sodium Potassium Chloride Carbon Dioxide Anion Gap BUN Creatinine Estim Creat Clear Calc Est GFR (MDRD) Af Amer Est GFR (MDRD) Non-Af BUN/Creatinine Ratio Glucose Calcium Total Bilirubin Direct Bilirubin AST ALT Alkaline Phosphatase Total Protein Albumin Globulin Acetaminophen 2.5 L DARIELA Screen Pending c-ANCA Antibody Pending p-ANCA Antibody Pending ALIVIA-1 Antibody Pending SS-A/Ro IgG Antibody Pending SS-B/La IgG Antibody Pending Sm (Howe) Antibody Pending DROSS PULLER Antibody Pending Scl-70 Scleroderma Ab Pending Double Strand DNA Ab Pending Centromere B Antibody Pending Hepatitis A IgM Ab Hepatitis A Ab Total Hep Bs Antigen Hep B Core Total Ab Hep B Core IgM Ab Hepatitis C Ab Confirm Hepatitis C Comment - Other Studies Radiology: [] Other Studies: [] Route of nutrition/ use of supplements: [] Nutritional Intake: [] IV Site: [] Morejon Catheter: [] Patient is alert and oriented ?3 is uncomfortable he has a diffuse erythematous rash and some desquamation of skin in his forehead oral mucosa is dry but no evidence of mucosal involvement or conjunctival involvement lungs are clear heart exam S1-S2 abdomen soft nontender his right knee looks relatively benign with good range of motion. Patient has a Morejon catheter in place - Assessment/Plan Antibiotics: [] Assessment/Plan: [] Active and Suspected Problems Septic shock (Acute) Coagulopathy (Acute) DAYNA (acute kidney injury) (Acute) Abscess of right thigh (Acute) Diffuse rash which I suspect is related to his drug exposure. At this point I would discontinue antimicrobial therapy as discussed with Dr. Moeller and closely follow him off antimicrobial therapy.
--- NOTE | 2017-10-31 12:51 | PCM.CONS.GEN ---
Problem List (1) Hematuria Status: Acute (2) Fever with exanthematous rash Status: Acute (3) Septic shock Status: Acute (4) DAYNA (acute kidney injury) Status: Acute Reason for Consult Date of Consultation: 10/31/17 History of Present Illness: The patient is a 57 year old M admitted to the ICU with multiple medical issues regarding septic shock multiple organ injury. I was called by the nurse to assess his urethral Morejon catheter. Apparently the urine has been leaking around the catheter. It was inserted with difficulty 2 days ago and it has been draining clear urine since yesterday. He did have gross hematuria earlier. The Morejon catheter that is inserted presently is a 16 [place] coud?. The patient denies a previous urologic history. He does not have urinary tract infections at home, no previous gross hematuria, no incontinence, no prostate pathology. He denies a history of kidney stones. He has not had a Morejon catheter for over 30 years aside from this medical admission. Past Medical History Past Medical History (Chronic Problems): Chronic Problems Factor V Leiden (Chronic) Elevated LFTs (Chronic) Anemia (Chronic) Status post total right knee replacement (Chronic) History of pulmonary embolism (Chronic) History of DVT (deep vein thrombosis) (Chronic) Allergies Sulfa (Sulfonamide Antibiotics) Allergy (Verified 10/09/17 10:25) Unknown vancomycin Allergy (Verified 10/12/17 12:41) Fever and skin rash ceftriaxone Adverse Reaction (Verified 10/28/17 18:59) Rash linezolid Adverse Reaction (Verified 10/28/17 18:59) Rash Home Medications: Ambulatory Orders Medication Instructions Recorded Acetaminophen [Tylenol] 1,000 mg PO PRN PRN 08/24/17 Ferrous Sulfate [Iron] 325 mg PO BID #60 tab 08/26/17 Docusate Sodium [Colace] 100 mg PO BID 09/18/17 Warfarin [Coumadin] 8 mg PO DAILY 10/09/17 Doxycycline 100 mg PO BID 30 Days #60 cap 10/12/17 Surgical History: total knee arthroplasty Psychiatric History: No pertinent psych hx Lives: With Family Smoking Status: Never smoker Alcohol: None Drugs: None - *Family History Maternal History Items: No pertinent history Paternal History Items: No pertinent history Review of Systems Constitutional: Reports: Weakness, Fatigue. Denies: Chills Eyes: Denies: Vision Change HEENT: Denies: Difficulty Hearing, Dysphasia Cardiovascular: Denies: Chest Pain Respiratory: Denies: Shortness of Breath Gastrointestinal: Reports: Abdominal Pain - With palpation Genitourinary: Reports: Hematuria - Only with this Morejon catheter, not in the past., -. Denies: Dysuria, Frequency, Incontinence, Retention Skin: Reports: Rash, Skin Changes Neurological: Denies: Change in Speech Patient Problems: Active and Suspected Problems Septic shock (Acute) Coagulopathy (Acute) DAYNA (acute kidney injury) (Acute) Abscess of right thigh (Acute) Hematuria (Acute) - Physical Exam General: Alert, Oriented x3, Cooperative HEENT: Atraumatic Oral: Dry Mucosa Neck: Supple Lungs: Normal air movement Abdomen: Soft, Tender - Mild diffuse tenderness, bladder not significantly distended, - - Circumcised phallus within normal limits. A 16 [place]ian Morejon catheter irrigated with small clot and pink tinged urine out. I feel that the catheter is in good position and the urine in the bag is amina in color. Bladder scan at bedside with approximately 200 and at greatest 250 cc questionably secondary to some clot that may have formed from Saturdays traumatic Morejon catheter insertion. Morejon is now draining well. Skin: Rash Present Musculoskeletal: No Muscle Wasting Neurological: Cranial nerves II-XII grossly intact, Neuro grossly intact Psych/Mental Status: Appropriate Vital Signs Temp Pulse Resp BP Pulse Ox 97.8 F 94 18 112/55 L 99 10/31/17 08:00 10/31/17 08:00 10/31/17 08:00 10/31/17 08:00 10/31/17 08:00 Oxygen Flow Rate (L/min) 1 Oxygen Delivery Method Room Air Weight: 90.5 kg Body Mass Index (BMI) 23.6 Intake and Output for Last 24 Hours 10/29/17 10/30/17 10/31/17 23:59 23:59 23:59 Intake Total 4724 / 4724 6234.6 / 6234.6 1014 / 1014 Output Total 1100 / 1100 1635 / 1635 500 / 500 Balance 3624 / 3624 4599.6 / 4599.6 514 / 514 Microbiology Past 72 Hours 10/29/17 12:30 C. difficile DNA Amplification - Final Stool 10/29/17 12:30 Stool Occult Blood (SANDRA) - Final Stool Laboratory Tests Past 24 Hrs 10/29/17 10/30/17 10/31/17 05:00 04:50 04:50 WBC RBC Hgb Hct MCV MCH MCHC RDW RDW Differential Plt Count MPV Immature Gran % (Auto) Neut % (Auto) Lymph % (Auto) [place] % (Auto) Eos % (Auto) Baso % (Auto) Absolute Neuts (auto) Absolute Lymphs (auto) Total Counted Differential Comment Diff Path Review June foll PT 42.0 H INR 4.4 H* Sodium Potassium Chloride Carbon Dioxide Anion Gap BUN Creatinine Estim Creat Clear Calc Est GFR (MDRD) Af Amer Est GFR (MDRD) Non-Af BUN/Creatinine Ratio Glucose Calcium Total Bilirubin Direct Bilirubin AST ALT Alkaline Phosphatase Total Protein Albumin Globulin Acetaminophen DARIELA Screen c-ANCA Antibody p-ANCA Antibody ALIVIA-1 Antibody SS-A/Ro IgG Antibody SS-B/La IgG Antibody Sm (Howe) Antibody LDR NURSE Antibody Scl-70 Scleroderma Ab Double Strand DNA Ab Centromere B Antibody Hepatitis A IgM Ab Negative Hepatitis A Ab Total Positive H Hep Bs Antigen Negative Hep B Core Total Ab Negative Hep B Core IgM Ab Negative Hepatitis C Ab Confirm 0.6 Hepatitis C Comment Comment 10/31/17 10/31/17 10/31/17 04:50 04:50 04:50 WBC 23.1 H RBC 3.34 L Hgb 8.9 L Hct 27.1 L MCV 81.1 MCH 26.6 L MCHC 32.8 RDW 18.7 H RDW Differential 55.6 H Plt Count 125 L MPV 10.2 Immature Gran % (Auto) 0.400 Neut % (Auto) 31.7 L Lymph % (Auto) 25.5 [place] % (Auto) 4.8 Eos % (Auto) 36.0 H Baso % (Auto) 1.6 H Absolute Neuts (auto) 7.3 Absolute Lymphs (auto) 5.89 H Total Counted Not Reportable Differential Comment SCANNED Diff Path Review June foll PT INR Sodium 145 Potassium 4.5 Chloride 112 H Carbon Dioxide 21.0 Anion Gap 12 BUN 33 H Creatinine 2.57 H Estim Creat Clear Calc 36.87 Est GFR (MDRD) Af Amer 33 L Est GFR (MDRD) Non-Af 28 L BUN/Creatinine Ratio 12.8 Glucose 63 L Calcium 7.9 L Total Bilirubin 6.60 H Direct Bilirubin 5.12 H AST 2034 H ALT 863 H Alkaline Phosphatase 553 H Total Protein 6.8 Albumin 1.6 L Globulin 5.2 H Acetaminophen DARIELA Screen c-ANCA Antibody p-ANCA Antibody ALIVIA-1 Antibody SS-A/Ro IgG Antibody SS-B/La IgG Antibody Sm (Howe) Antibody LDR NURSE Antibody Scl-70 Scleroderma Ab Double Strand DNA Ab Centromere B Antibody Hepatitis A IgM Ab Hepatitis A Ab Total Hep Bs Antigen Hep B Core Total Ab Hep B Core IgM Ab Hepatitis C Ab Confirm Hepatitis C Comment 10/31/17 10/31/17 10/31/17 11:00 11:00 11:00 WBC RBC Hgb Hct MCV MCH MCHC RDW RDW Differential Plt Count MPV Immature Gran % (Auto) Neut % (Auto) Lymph % (Auto) [place] % (Auto) Eos % (Auto) Baso % (Auto) Absolute Neuts (auto) Absolute Lymphs (auto) Total Counted Differential Comment Diff Path Review PT INR Sodium Potassium Chloride Carbon Dioxide Anion Gap BUN Creatinine Estim Creat Clear Calc Est GFR (MDRD) Af Amer Est GFR (MDRD) Non-Af BUN/Creatinine Ratio Glucose Calcium Total Bilirubin Direct Bilirubin AST ALT Alkaline Phosphatase Total Protein Albumin Globulin Acetaminophen 2.5 L DARIELA Screen Pending c-ANCA Antibody Pending p-ANCA Antibody Pending ALIVIA-1 Antibody Pending SS-A/Ro IgG Antibody Pending SS-B/La IgG Antibody Pending Sm (Howe) Antibody Pending LDR NURSE Antibody Pending Scl-70 Scleroderma Ab Pending Double Strand DNA Ab Pending Centromere B Antibody Pending Hepatitis A IgM Ab Hepatitis A Ab Total Hep Bs Antigen Hep B Core Total Ab Hep B Core IgM Ab Hepatitis C Ab Confirm Hepatitis C Comment POC Glucose 10/31/17 10/30/17 10/30/17 06:48 21:35 17:52 POC Glucose 58 L 102 118 H 10/30/17 11:23 POC Glucose 98 Assessment/Plan All Active Problems Fever with exanthematous rash (Acute) Septic shock (Acute) Coagulopathy (Acute) DAYNA (acute kidney injury) (Acute) Abscess of right thigh (Acute) Hematuria (Acute) 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 knee joint (Resolved) Atrial fibrillation with RVR (Resolved) Acute cystitis (Resolved) Severe sepsis (Resolved) 57 yr old male admitted to the ICU with sepsis, had traumatic Morejon catheter insertion 2 days ago with some gross hematuria that is now resolving. 1. ICU and supportive care 2. From a standpoint, the Morejon catheter that is now indwelling appears to be draining clear urine and the blood in the catheter is likely secondary to traumatic Morejon insertion from 2 days ago. Do not recommend removal of Morejon at this time. Will continue as needed irrigation and will be more aggressive if necessary. Not concerned regarding urine leaking around catheter, likely secondary to bladder spasms. 3. Will follow with you. 4. For outpatient follow-up will be seeing Dr. Pedroza.
[2017-10-31 13:55] LABS: Pathologist Review Reviewed
[2017-10-31 14:04] LABS: Pathologist Review Reviewed
[2017-10-31] MEDS: 0.9% NaCl Peripheral Flush Adult/Peds IV (15:08)
[2017-10-31 15:42] LABS: Pathologist Review Reviewed
[2017-10-31 16:25] LABS: Bedside Glucose 102 mg/dL (70-110)
--- NOTE | 2017-10-31 17:30 | PCM.CONS.R ---
Problem List (1) DAYNA (acute kidney injury) Status: Acute Consultation - Renal PCP/ Referring MD: Requesting physician: [] Primary care physician: Dc Glez - History of Present Illness History of Present Illness: The patient is a 57 year old M past medical history of factor V deficiency, DVT on Coumadin. Patient presented on October 28 with septic shock from right thigh abscess. Patient also have worsening liver function tests with a skin rash from possible DRES . Renal team was consulted today for worsening kidney function. Patient has normal kidney function at the baseline. Creatinine peaked yesterday at 2.7. Creatinine slightly better today 2.5. Nonoliguric. Patient also has been having hematuria from Morejon catheter placement. Patient is getting bladder irrigation. No NSAID use. No IV contrast exposure. Patient said his skin rash is better. Has a Morejon catheter. Review of system: 12 systems review is negative except for hematuria, skin rash. [] - Allergies Allergies: Allergies Sulfa (Sulfonamide Antibiotics) Allergy (Verified 10/09/17 10:25) Unknown vancomycin Allergy (Verified 10/12/17 12:41) Fever and skin rash ceftriaxone Adverse Reaction (Verified 10/28/17 18:59) Rash linezolid Adverse Reaction (Verified 10/28/17 18:59) Rash - Current Medications Current Medications: Current Medications Chlorhexidine Gluconate () 1 each TOPICAL DAILY [facility] Last Admin: 10/31/17 04:51 Dose: 1 each Emollient Ointment (Eucerin Intensive Repair) 1 applic TOPICAL 4X/DAY PRN PRN; Protocol PRN Reason: Dry Skin Last Admin: 10/31/17 04:52 Dose: 1 applicatio Heparin Sodium (Beef Lung) (Heparin 500 Unit/5 Ml (100/Ml)) 500 unit IV UD PRN PRN Reason: HEPARIN FLUSH Sodium Chloride () 250 mls @ 15 mls/hr IV .[id number] PRN PRN Reason: SALINE FLUSH Lactobacillus Acidophilus (Acidophilus) 2 tablet PO 4X/DAY [facility] Last Admin: 10/31/17 15:08 Dose: 2 tablet Magnesium Hydroxide (Milk Of Magnesia) 30 ml PO DAILY PRN PRN PRN Reason: Constipation Methylprednisolone (Solu-Medrol) 40 mg IV DAILY [facility] Nutritional Formula (Lactose Free) (Ensure Enlive) 120 ml PO 4X/DAY [facility] Last Admin: 10/31/17 11:45 Dose: 120 ml Sodium Chloride () 5 - 30 ml IV UD PRN PRN Reason: SALINE FLUSH Last Admin: 10/31/17 15:08 Dose: 30 ml Sodium Chloride () 10 - 20 ml IV UD PRN PRN Reason: PICC FLUSH - Past Medical History Past Medical History (Chronic Problems): Chronic Problems Factor V Leiden (Chronic) Elevated LFTs (Chronic) Anemia (Chronic) Status post total right knee replacement (Chronic) History of pulmonary embolism (Chronic) History of DVT (deep vein thrombosis) (Chronic) - Past Surgical History Surgical History: total knee arthroplasty - Social History Smoking Status: Never smoker Alcohol: None Drugs: None - Family History Maternal History Items: No pertinent history Paternal History Items: No pertinent history Patient Problems: Active and Suspected Problems Septic shock (Acute) Coagulopathy (Acute) DAYNA (acute kidney injury) (Acute) Abscess of right thigh (Acute) Hematuria (Acute) - Physical Exam General: Alert, Oriented x3 HEENT: Atraumatic, PERRLA Oral: Moist Mucosa Neck: Supple, No JVD Lungs: Clear to auscultation, Normal air movement, No rhonchi, No wheeze Cardiovascular: Regular rate, Regular Rhythm, Normal S1, Normal S2 Abdomen: Bowel Sounds Present, Soft, Non Tender Extremities: No clubbing, No cyanosis, No edema Skin: Rash Present Musculoskeletal: No Tenderness to Palpation of Joints or Extremities Lymphatic: No Cervical, Supraclavicular, or Inguinal Adenopathy Neurological: Cranial nerves II-XII grossly intact Psych/Mental Status: Normal Affect Vital Signs Temp Pulse Resp BP Pulse Ox 97.5 F L 94 17 118/53 L 100 10/31/17 12:00 10/31/17 15:58 10/31/17 13:00 10/31/17 13:00 10/31/17 13:00 Oxygen Flow Rate (L/min) 1 Oxygen Delivery Method Room Air Weight: 90.5 kg Body Mass Index (BMI) 23.6 Intake and Output for Last 24 Hours 10/29/17 10/30/17 10/31/17 23:59 23:59 23:59 Intake Total 4724 / 4724 6234.6 / 6234.6 2065.4 / 2065.4 Output Total 1100 / 1100 1635 / 1635 1025 / 1025 Balance 3624 / 3624 4599.6 / 4599.6 1040.4 / 1040.4 Microbiology Past 72 Hours 10/29/17 12:30 C. difficile DNA Amplification - Final Stool 10/29/17 12:30 Stool Occult Blood (SANDRA) - Final Stool Laboratory Tests Past 24 Hrs 10/30/17 10/31/17 10/31/17 04:50 04:50 04:50 WBC RBC Hgb Hct MCV MCH MCHC RDW RDW Differential Plt Count MPV Immature Gran % (Auto) Neut % (Auto) Lymph % (Auto) [place] % (Auto) Eos % (Auto) Baso % (Auto) Absolute Neuts (auto) Absolute Lymphs (auto) Total Counted Differential Comment Diff Path Review Reviewed PT 42.0 H INR 4.4 H* Sodium 145 Potassium 4.5 Chloride 112 H Carbon Dioxide 21.0 Anion Gap 12 BUN 33 H Creatinine 2.57 H Estim Creat Clear Calc 36.87 Est GFR (MDRD) Af Amer 33 L Est GFR (MDRD) Non-Af 28 L BUN/Creatinine Ratio 12.8 Glucose 63 L Calcium 7.9 L Total Bilirubin Direct Bilirubin AST ALT Alkaline Phosphatase Total Protein Albumin Globulin Acetaminophen DARIELA Screen c-ANCA Antibody p-ANCA Antibody ALIVIA-1 Antibody SS-A/Ro IgG Antibody SS-B/La IgG Antibody Sm (Howe) Antibody [employer] Antibody Scl-70 Scleroderma Ab Double Strand DNA Ab Centromere B Antibody 10/31/17 10/31/17 10/31/17 04:50 04:50 11:00 WBC 23.1 H RBC 3.34 L Hgb 8.9 L Hct 27.1 L MCV 81.1 MCH 26.6 L MCHC 32.8 RDW 18.7 H RDW Differential 55.6 H Plt Count 125 L MPV 10.2 Immature Gran % (Auto) 0.400 Neut % (Auto) 31.7 L Lymph % (Auto) 25.5 [place] % (Auto) 4.8 Eos % (Auto) 36.0 H Baso % (Auto) 1.6 H Absolute Neuts (auto) 7.3 Absolute Lymphs (auto) 5.89 H Total Counted Not Reportable Differential Comment SCANNED Diff Path Review Reviewed PT INR Sodium Potassium Chloride Carbon Dioxide Anion Gap BUN Creatinine Estim Creat Clear Calc Est GFR (MDRD) Af Amer Est GFR (MDRD) Non-Af BUN/Creatinine Ratio Glucose Calcium Total Bilirubin 6.60 H Direct Bilirubin 5.12 H AST 2034 H ALT 863 H Alkaline Phosphatase 553 H Total Protein 6.8 Albumin 1.6 L Globulin 5.2 H Acetaminophen 2.5 L DARIELA Screen c-ANCA Antibody p-ANCA Antibody ALIVIA-1 Antibody SS-A/Ro IgG Antibody SS-B/La IgG Antibody Sm (Howe) Antibody [employer] Antibody Scl-70 Scleroderma Ab Double Strand DNA Ab Centromere B Antibody 10/31/17 10/31/17 11:00 11:00 WBC RBC Hgb Hct MCV MCH MCHC RDW RDW Differential Plt Count MPV Immature Gran % (Auto) Neut % (Auto) Lymph % (Auto) [place] % (Auto) Eos % (Auto) Baso % (Auto) Absolute Neuts (auto) Absolute Lymphs (auto) Total Counted Differential Comment Diff Path Review PT INR Sodium Potassium Chloride Carbon Dioxide Anion Gap BUN Creatinine Estim Creat Clear Calc Est GFR (MDRD) Af Amer Est GFR (MDRD) Non-Af BUN/Creatinine Ratio Glucose Calcium Total Bilirubin Direct Bilirubin AST ALT Alkaline Phosphatase Total Protein Albumin Globulin Acetaminophen DARIELA Screen Pending c-ANCA Antibody Pending p-ANCA Antibody Pending ALIVIA-1 Antibody Pending SS-A/Ro IgG Antibody Pending SS-B/La IgG Antibody Pending Sm (Howe) Antibody Pending [employer] Antibody Pending Scl-70 Scleroderma Ab Pending Double Strand DNA Ab Pending Centromere B Antibody Pending POC Glucose 10/31/17 10/31/17 10/30/17 16:21 06:48 21:35 POC Glucose 102 58 L 102 10/30/17 17:52 POC Glucose 118 H Assessment/Plan All Active Problems Fever with exanthematous rash (Acute) Septic shock (Acute) Coagulopathy (Acute) DAYNA (acute kidney injury) (Acute) Abscess of right thigh (Acute) Hematuria (Acute) 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 knee joint (Resolved) Atrial fibrillation with RVR (Resolved) Acute cystitis (Resolved) Severe sepsis (Resolved) 1-acute kidney injury. Patient has normal creatinine at baseline. Acute kidney injury is most probably from ischemic ATN. Creatinine peaked at 2.7 mg/dL yesterday. Creatinine is slightly better today. Nonoliguric. Hopefully the patient is in the recovery phase of ATN. I will continue to monitor kidney function daily along with urine output. No need for renal replacement therapy. Keep mean arterial pressure more than 65. 2-hematuria most probably traumatic Morejon catheter placement. Continue bladder irrigation. Continue bladder scan 3-skin rash most probably from IV antibiotics. Patient IV Solu-Medrol. Improving. 4-high LFTs most probably DRES. He might need to be transferred to tertiary center for further workup. Continue to monitor LFT. 5-septic shock. Better. Of pressor. Continue antibiotics as per the ID service Thank you for the consult. Renal team will continue to follow. Please do not hesitate to call me with any question at my cell phone [phone] Mary Medina MD
--- NOTE | 2017-10-31 17:36 | CON.PCM_ITS ---
Problem List (1) DAYNA (acute kidney injury) Status: Acute Consultation - Renal PCP/ Referring MD: Requesting physician: [] Primary care physician: Dc Glez - History of Present Illness History of Present Illness: The patient is a 57 year old M past medical history of factor V deficiency, DVT on Coumadin. Patient presented on October 28 with septic shock from right thigh abscess. Patient also have worsening liver function tests with a skin rash from possible DRES . Renal team was consulted today for worsening kidney function. Patient has normal kidney function at the baseline. Creatinine peaked yesterday at 2.7. Creatinine slightly better today 2.5. Nonoliguric. Patient also has been having hematuria from Morejon catheter placement. Patient is getting bladder irrigation. No NSAID use. No IV contrast exposure. Patient said his skin rash is better. Has a Morejon catheter. Review of system: 12 systems review is negative except for hematuria, skin rash. [] - Allergies Allergies: Allergies Sulfa (Sulfonamide Antibiotics) Allergy (Verified 10/09/17 10:25) Unknown vancomycin Allergy (Verified 10/12/17 12:41) Fever and skin rash ceftriaxone Adverse Reaction (Verified 10/28/17 18:59) Rash linezolid Adverse Reaction (Verified 10/28/17 18:59) Rash - Current Medications Current Medications: Current Medications Chlorhexidine Gluconate () 1 each TOPICAL DAILY [facility] Last Admin: 10/31/17 04:51 Dose: 1 each Emollient Ointment (Eucerin Intensive Repair) 1 applic TOPICAL 4X/DAY PRN PRN; Protocol PRN Reason: Dry Skin Last Admin: 10/31/17 04:52 Dose: 1 applicatio Heparin Sodium (Beef Lung) (Heparin 500 Unit/5 Ml (100/Ml)) 500 unit IV UD PRN PRN Reason: HEPARIN FLUSH Sodium Chloride () 250 mls @ 15 mls/hr IV .[id number] PRN PRN Reason: SALINE FLUSH Lactobacillus Acidophilus (Acidophilus) 2 tablet PO 4X/DAY [facility] Last Admin: 10/31/17 15:08 Dose: 2 tablet Magnesium Hydroxide (Milk Of Magnesia) 30 ml PO DAILY PRN PRN PRN Reason: Constipation Methylprednisolone (Solu-Medrol) 40 mg IV DAILY [facility] Nutritional Formula (Lactose Free) (Ensure Enlive) 120 ml PO 4X/DAY [facility] Last Admin: 10/31/17 11:45 Dose: 120 ml Sodium Chloride () 5 - 30 ml IV UD PRN PRN Reason: SALINE FLUSH Last Admin: 10/31/17 15:08 Dose: 30 ml Sodium Chloride () 10 - 20 ml IV UD PRN PRN Reason: PICC FLUSH - Past Medical History Past Medical History (Chronic Problems): Chronic Problems Factor V Leiden (Chronic) Elevated LFTs (Chronic) Anemia (Chronic) Status post total right knee replacement (Chronic) History of pulmonary embolism (Chronic) History of DVT (deep vein thrombosis) (Chronic) - Past Surgical History Surgical History: total knee arthroplasty - Social History Smoking Status: Never smoker Alcohol: None Drugs: None - Family History Maternal History Items: No pertinent history Paternal History Items: No pertinent history Patient Problems: Active and Suspected Problems Septic shock (Acute) Coagulopathy (Acute) DAYNA (acute kidney injury) (Acute) Abscess of right thigh (Acute) Hematuria (Acute) - Physical Exam General: Alert, Oriented x3 HEENT: Atraumatic, PERRLA Oral: Moist Mucosa Neck: Supple, No JVD Lungs: Clear to auscultation, Normal air movement, No rhonchi, No wheeze Cardiovascular: Regular rate, Regular Rhythm, Normal S1, Normal S2 Abdomen: Bowel Sounds Present, Soft, Non Tender Extremities: No clubbing, No cyanosis, No edema Skin: Rash Present Musculoskeletal: No Tenderness to Palpation of Joints or Extremities Lymphatic: No Cervical, Supraclavicular, or Inguinal Adenopathy Neurological: Cranial nerves II-XII grossly intact Psych/Mental Status: Normal Affect Vital Signs Temp Pulse Resp BP Pulse Ox 97.5 F L 94 17 118/53 L 100 10/31/17 12:00 10/31/17 15:58 10/31/17 13:00 10/31/17 13:00 10/31/17 13:00 Oxygen Flow Rate (L/min) 1 Oxygen Delivery Method Room Air Weight: 90.5 kg Body Mass Index (BMI) 23.6 Intake and Output for Last 24 Hours 10/29/17 10/30/17 10/31/17 23:59 23:59 23:59 Intake Total 4724 / 4724 6234.6 / 6234.6 2065.4 / 2065.4 Output Total 1100 / 1100 1635 / 1635 1025 / 1025 Balance 3624 / 3624 4599.6 / 4599.6 1040.4 / 1040.4 Microbiology Past 72 Hours 10/29/17 12:30 C. difficile DNA Amplification - Final Stool 10/29/17 12:30 Stool Occult Blood (SANDRA) - Final Stool Laboratory Tests Past 24 Hrs 10/30/17 10/31/17 10/31/17 04:50 04:50 04:50 WBC RBC Hgb Hct MCV MCH MCHC RDW RDW Differential Plt Count MPV Immature Gran % (Auto) Neut % (Auto) Lymph % (Auto) [place] % (Auto) Eos % (Auto) Baso % (Auto) Absolute Neuts (auto) Absolute Lymphs (auto) Total Counted Differential Comment Diff Path Review Reviewed PT 42.0 H INR 4.4 H* Sodium 145 Potassium 4.5 Chloride 112 H Carbon Dioxide 21.0 Anion Gap 12 BUN 33 H Creatinine 2.57 H Estim Creat Clear Calc 36.87 Est GFR (MDRD) Af Amer 33 L Est GFR (MDRD) Non-Af 28 L BUN/Creatinine Ratio 12.8 Glucose 63 L Calcium 7.9 L Total Bilirubin Direct Bilirubin AST ALT Alkaline Phosphatase Total Protein Albumin Globulin Acetaminophen DARIELA Screen c-ANCA Antibody p-ANCA Antibody ALIVIA-1 Antibody SS-A/Ro IgG Antibody SS-B/La IgG Antibody Sm (Howe) Antibody [employer] LECTURER Antibody Scl-70 Scleroderma Ab Double Strand DNA Ab Centromere B Antibody 10/31/17 10/31/17 10/31/17 04:50 04:50 11:00 WBC 23.1 H RBC 3.34 L Hgb 8.9 L Hct 27.1 L MCV 81.1 MCH 26.6 L MCHC 32.8 RDW 18.7 H RDW Differential 55.6 H Plt Count 125 L MPV 10.2 Immature Gran % (Auto) 0.400 Neut % (Auto) 31.7 L Lymph % (Auto) 25.5 [place] % (Auto) 4.8 Eos % (Auto) 36.0 H Baso % (Auto) 1.6 H Absolute Neuts (auto) 7.3 Absolute Lymphs (auto) 5.89 H Total Counted Not Reportable Differential Comment SCANNED Diff Path Review Reviewed PT INR Sodium Potassium Chloride Carbon Dioxide Anion Gap BUN Creatinine Estim Creat Clear Calc Est GFR (MDRD) Af Amer Est GFR (MDRD) Non-Af BUN/Creatinine Ratio Glucose Calcium Total Bilirubin 6.60 H Direct Bilirubin 5.12 H AST 2034 H ALT 863 H Alkaline Phosphatase 553 H Total Protein 6.8 Albumin 1.6 L Globulin 5.2 H Acetaminophen 2.5 L DARIELA Screen c-ANCA Antibody p-ANCA Antibody ALIVIA-1 Antibody SS-A/Ro IgG Antibody SS-B/La IgG Antibody Sm (Hoew) Antibody [employer] LECTURER Antibody Scl-70 Scleroderma Ab Double Strand DNA Ab Centromere B Antibody 10/31/17 10/31/17 11:00 11:00 WBC RBC Hgb Hct MCV MCH MCHC RDW RDW Differential Plt Count MPV Immature Gran % (Auto) Neut % (Auto) Lymph % (Auto) [place] % (Auto) Eos % (Auto) Baso % (Auto) Absolute Neuts (auto) Absolute Lymphs (auto) Total Counted Differential Comment Diff Path Review PT INR Sodium Potassium Chloride Carbon Dioxide Anion Gap BUN Creatinine Estim Creat Clear Calc Est GFR (MDRD) Af Amer Est GFR (MDRD) Non-Af BUN/Creatinine Ratio Glucose Calcium Total Bilirubin Direct Bilirubin AST ALT Alkaline Phosphatase Total Protein Albumin Globulin Acetaminophen DARIELA Screen Pending c-ANCA Antibody Pending p-ANCA Antibody Pending ALIVIA-1 Antibody Pending SS-A/Ro IgG Antibody Pending SS-B/La IgG Antibody Pending Sm (Howe) Antibody Pending [employer] LECTURER Antibody Pending Scl-70 Scleroderma Ab Pending Double Strand DNA Ab Pending Centromere B Antibody Pending POC Glucose 10/31/17 10/31/17 10/30/17 16:21 06:48 21:35 POC Glucose 102 58 L 102 10/30/17 17:52 POC Glucose 118 H Assessment/Plan All Active Problems Fever with exanthematous rash (Acute) Septic shock (Acute) Coagulopathy (Acute) DAYNA (acute kidney injury) (Acute) Abscess of right thigh (Acute) Hematuria (Acute) 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 knee joint (Resolved) Atrial fibrillation with RVR (Resolved) Acute cystitis (Resolved) Severe sepsis (Resolved) 1-acute kidney injury. Patient has normal creatinine at baseline. Acute kidney injury is most probably from ischemic ATN. Creatinine peaked at 2.7 mg/dL yesterday. Creatinine is slightly better today. Nonoliguric. Hopefully the patient is in the recovery phase of ATN. I will continue to monitor kidney function daily along with urine output. No need for renal replacement therapy. Keep mean arterial pressure more than 65. 2-hematuria most probably traumatic Morejon catheter placement. Continue bladder irrigation. Continue bladder scan 3-skin rash most probably from IV antibiotics. Patient IV Solu-Medrol. Improving. 4-high LFTs most probably DRES. He might need to be transferred to tertiary center for further workup. Continue to monitor LFT. 5-septic shock. Better. Of pressor. Continue antibiotics as per the ID service Thank you for the consult. Renal team will continue to follow. Please do not hesitate to call me with any question at my cell phone Mary Medina MD
[2017-10-31 23:40] LABS: Protein, Urine (Random) 187.4 mg/dL (<11.9); Protein:Creat Ratio 3042 mg/g CRE (0-200)
[2017-11-01] VITALS (25 sets, daily range): BP systolic 102–126; BP diastolic 64–86; PULSE 72–107; RESP 12–22; TEMP 36.4–37.1; O2SAT 92–100
[2017-11-01] MEDS: 0.9% NaCl Peripheral Flush Adult/Peds IV ×3 (04:10→10:54)
[2017-11-01 04:34] LABS: Prothrombin Time (Protime)PT. 58.9 SECONDS (11.7-14.9)
[2017-11-01 04:45] LABS: Absolute Lymphocyte Count 5.48 X10^3/ul (0.83-4.51); Absolute Neutrophil Count 7.7 X10^3/uL (2.0-7.7); Basophil# 0.41 X10^3/uL; Basophil% 2.6 % (0-1); Differential Indicated SCAN CRITERIA MET; Eosinophil# 0.82 X10^3/uL; Eosinophils% 5.3 % (0-5); Hematocrit 25.4 % (40-54); Hemoglobin 8.4 g/dl (13.0-16.5); Lymphocyte # 5.48 X10^3/ul (4.0); Lymphocyte % 35.2 % (19-41); Mean Corp Hgb Conc 33.1 g/gl (32-36); Mean Corpuscular Hgb 26.6 pg (27.0-32.0); Mean Corpuscular Volume 80.4 fL (80-94); Monocyte# 1.12 X10^3/uL; Monocyte% 7.2 % (0-10); Neutrophil # 7.71 X10^3/uL (2.7-7.7); Neutrophil % 49.4 % (47-70); POSITIVE COUNT NO; POSITIVE DIFFERENTIAL YES; POSITIVE MORPHOLOGY YES; Platelet Count 104 K/mm3 (150-450); RBC Distribution Width SD 56.2 fl (35.1-43.9); Red Blood Count 3.16 M/mm3 (4.6-6.2); White Blood Count 15.6 K/mm3 (4.4-11.0)
[2017-11-01 04:47] LABS: International Normalized Ratio 6.7
[2017-11-01 05:05] LABS: ALB/GLOB Ratio 0.3 RATIO (0.9-2.4); AST(SGOT) 1227 U/L (15-37); Alanine Aminotransfer ALT/SGPT 757 U/L (16-61); Albumin, Serum 1.4 g/dL (3.2-5.0); Alkaline Phosphatase 475 U/L (45-117); Anion Gap 13 (5-15); BUN 27 mg/dL (7-18); BUN/Creat Ratio 12.6 RATIO (10-20); Calcium,Total 8.3 mg/dL (8.5-10.1); Chloride 115 mmol/L (98-107); Creatinine, Serum 2.15 mg/dL (0.70-1.30); EST Glomerular Filtration Rate 34 mL/min (>60); Est Glom Filt Rate - Afr Amer 41 mL/min (>60); Estimated Creatinine Clearance 44.07 ml/min; Globulin 5.4 g/dL (2.2-4.2); Glucose 79 mg/dL (74-106); Potassium 4.8 mmol/L (3.5-5.1); Protein, Total 6.8 g/dL (6.4-8.2); Sodium Level 149 mmol/L (136-145)
--- NOTE | 2017-11-01 07:08 | PCM.PN.INT ---
Subjective: The patient was seen and examined at the bedside this morning. Events from the last 24 hours have been reviewed. The patient is currently afebrile, hemodynamically stable and maintaining appropriate oxygen saturations on room air. The patient's antibiotics were completely discontinued yesterday. He was additionally started on IV steroids over presumption for an underlying DRESS syndrome. The patient's leukocytosis is improving this morning. His peripheral eosinophilia has improved. However, his INR remains significantly elevated to 6.7. Creatinine is improved to 2.15 with appropriate urine output. Transaminases are now down trending. Nevertheless, the total bilirubin level remains elevated to 8.6. Objective: The patient's most recent lab work, culture data and imaging studies have all been personally reviewed. Infectious workup has been negative to date. General: Alert, Cooperative, No apparent distress HEENT: Atraumatic, PERRLA, Normocephalic, - - Jaundiced sclera present Oral: No Gingival or Mucosal Lesions/ Ulcerations Neck: Supple, No Nodes, Trachea Midline Lungs: Normal air movement, No rhonchi, No wheeze, No rales Cardiovascular: Regular rate, Regular Rhythm, Normal S1, Normal S2, No murmurs Abdomen: Bowel Sounds Present, Soft, Non Tender Extremities: No clubbing, No cyanosis, Edema Skin: - - Improving superficial desquamative rash Musculoskeletal: No Tenderness to Palpation of Joints or Extremities Lymphatic: No Cervical, Supraclavicular, or Inguinal Adenopathy Neurological: Neuro grossly intact Psych/Mental Status: Alert and oriented to time, place, person, mood and affect Vital Signs Temp Pulse Resp BP Pulse Ox 98.0 F 93 20 H 102/64 97 11/01/17 04:00 11/01/17 06:00 11/01/17 06:00 11/01/17 06:00 11/01/17 06:00 Oxygen Flow Rate (L/min) 1 Oxygen Delivery Method Room Air Weight: 200 lb 9.93 oz Body Mass Index (BMI) 23.6 Intake and Output for Last 24 Hours 10/30/17 10/31/17 11/01/17 23:59 23:59 23:59 Intake Total 6234.6 / 6234.6 2065.4 / 2065.4 480 / 480 Output Total 1635 / 1635 1325 / 1325 575 / 575 Balance 4599.6 / 4599.6 740.4 / 740.4 -95 / -95 Labs (Last 48 Hours) 10/29/17 10/30/17 10/30/17 05:00 04:50 11:23 WBC RBC Hgb Hct MCV MCH MCHC RDW RDW Differential Plt Count MPV Immature Gran % (Auto) Neut % (Auto) Lymph % (Auto) [place] % (Auto) Eos % (Auto) Baso % (Auto) Absolute Neuts (auto) Absolute Lymphs (auto) Total Counted Differential Comment Diff Path Review Reviewed Eos Smear Total Cells PT INR Sodium Potassium Chloride Carbon Dioxide Anion Gap BUN Creatinine Estim Creat Clear Calc Est GFR (MDRD) Af Amer Est GFR (MDRD) Non-Af BUN/Creatinine Ratio Glucose Calcium Total Bilirubin Direct Bilirubin AST ALT Alkaline Phosphatase Total Protein Albumin Globulin Albumin/Globulin Ratio U Random Total Protein Urine Creatinine Protein/Creatinin Ratio Acetaminophen DARIELA Screen c-ANCA Antibody p-ANCA Antibody ALIVIA-1 Antibody SS-A/Ro IgG Antibody SS-B/La IgG Antibody Sm (Howe) Antibody ASSISTANT COMMUNITY MANAGER Antibody Scl-70 Scleroderma Ab Double Strand DNA Ab Centromere B Antibody Hepatitis A IgM Ab Negative Hepatitis A Ab Total Positive H Hep Bs Antigen Negative Hep B Core Total Ab Negative Hep B Core IgM Ab Negative Hepatitis C Ab Confirm 0.6 Hepatitis C Comment Comment Miscellaneous Test POC Glucose 98 10/30/17 10/30/17 10/31/17 17:52 21:35 04:50 WBC RBC Hgb Hct MCV MCH MCHC RDW RDW Differential Plt Count MPV Immature Gran % (Auto) Neut % (Auto) Lymph % (Auto) [place] % (Auto) Eos % (Auto) Baso % (Auto) Absolute Neuts (auto) Absolute Lymphs (auto) Total Counted Differential Comment Diff Path Review Eos Smear Total Cells PT 42.0 H INR 4.4 H* Sodium Potassium Chloride Carbon Dioxide Anion Gap BUN Creatinine Estim Creat Clear Calc Est GFR (MDRD) Af Amer Est GFR (MDRD) Non-Af BUN/Creatinine Ratio Glucose Calcium Total Bilirubin Direct Bilirubin AST ALT Alkaline Phosphatase Total Protein Albumin Globulin Albumin/Globulin Ratio U Random Total Protein Urine Creatinine Protein/Creatinin Ratio Acetaminophen DARIELA Screen c-ANCA Antibody p-ANCA Antibody ALIVIA-1 Antibody SS-A/Ro IgG Antibody SS-B/La IgG Antibody Sm (Howe) Antibody ASSISTANT COMMUNITY MANAGER Antibody Scl-70 Scleroderma Ab Double Strand DNA Ab Centromere B Antibody Hepatitis A IgM Ab Hepatitis A Ab Total Hep Bs Antigen Hep B Core Total Ab Hep B Core IgM Ab Hepatitis C Ab Confirm Hepatitis C Comment Miscellaneous Test POC Glucose 118 H 102 10/31/17 10/31/17 10/31/17 04:50 04:50 04:50 WBC 23.1 H RBC 3.34 L Hgb 8.9 L Hct 27.1 L MCV 81.1 MCH 26.6 L MCHC 32.8 RDW 18.7 H RDW Differential 55.6 H Plt Count 125 L MPV 10.2 Immature Gran % (Auto) 0.400 Neut % (Auto) 31.7 L Lymph % (Auto) 25.5 [place] % (Auto) 4.8 Eos % (Auto) 36.0 H Baso % (Auto) 1.6 H Absolute Neuts (auto) 7.3 Absolute Lymphs (auto) 5.89 H Total Counted Not Reportable Differential Comment SCANNED Diff Path Review Reviewed Eos Smear Total Cells PT INR Sodium 145 Potassium 4.5 Chloride 112 H Carbon Dioxide 21.0 Anion Gap 12 BUN 33 H Creatinine 2.57 H Estim Creat Clear Calc 36.87 Est GFR (MDRD) Af Amer 33 L Est GFR (MDRD) Non-Af 28 L BUN/Creatinine Ratio 12.8 Glucose 63 L Calcium 7.9 L Total Bilirubin 6.60 H Direct Bilirubin 5.12 H AST 2034 H ALT 863 H Alkaline Phosphatase 553 H Total Protein 6.8 Albumin 1.6 L Globulin 5.2 H Albumin/Globulin Ratio U Random Total Protein Urine Creatinine Protein/Creatinin Ratio Acetaminophen DARIELA Screen c-ANCA Antibody p-ANCA Antibody ALIVIA-1 Antibody SS-A/Ro IgG Antibody SS-B/La IgG Antibody Sm (Howe) Antibody ASSISTANT COMMUNITY MANAGER Antibody Scl-70 Scleroderma Ab Double Strand DNA Ab Centromere B Antibody Hepatitis A IgM Ab Hepatitis A Ab Total Hep Bs Antigen Hep B Core Total Ab Hep B Core IgM Ab Hepatitis C Ab Confirm Hepatitis C Comment Miscellaneous Test POC Glucose 10/31/17 10/31/17 10/31/17 06:48 11:00 11:00 WBC RBC Hgb Hct MCV MCH MCHC RDW RDW Differential Plt Count MPV Immature Gran % (Auto) Neut % (Auto) Lymph % (Auto) [place] % (Auto) Eos % (Auto) Baso % (Auto) Absolute Neuts (auto) Absolute Lymphs (auto) Total Counted Differential Comment Diff Path Review Eos Smear Total Cells PT INR Sodium Potassium Chloride Carbon Dioxide Anion Gap BUN Creatinine Estim Creat Clear Calc Est GFR (MDRD) Af Amer Est GFR (MDRD) Non-Af BUN/Creatinine Ratio Glucose Calcium Total Bilirubin Direct Bilirubin AST ALT Alkaline Phosphatase Total Protein Albumin Globulin Albumin/Globulin Ratio U Random Total Protein Urine Creatinine Protein/Creatinin Ratio Acetaminophen 2.5 L DARIELA Screen Pending c-ANCA Antibody p-ANCA Antibody ALIVIA-1 Antibody Pending SS-A/Ro IgG Antibody Pending SS-B/La IgG Antibody Pending Sm (Howe) Antibody Pending ASSISTANT COMMUNITY MANAGER Antibody Pending Scl-70 Scleroderma Ab Pending Double Strand DNA Ab Pending Centromere B Antibody Pending Hepatitis A IgM Ab Hepatitis A Ab Total Hep Bs Antigen Hep B Core Total Ab Hep B Core IgM Ab Hepatitis C Ab Confirm Hepatitis C Comment Miscellaneous Test POC Glucose 58 L 10/31/17 10/31/17 10/31/17 11:00 16:21 22:45 WBC RBC Hgb Hct MCV MCH MCHC RDW RDW Differential Plt Count MPV Immature Gran % (Auto) Neut % (Auto) Lymph % (Auto) [place] % (Auto) Eos % (Auto) Baso % (Auto) Absolute Neuts (auto) Absolute Lymphs (auto) Total Counted Differential Comment Diff Path Review Eos Smear Total Cells Pending PT INR Sodium Potassium Chloride Carbon Dioxide Anion Gap BUN Creatinine Estim Creat Clear Calc Est GFR (MDRD) Af Amer Est GFR (MDRD) Non-Af BUN/Creatinine Ratio Glucose Calcium Total Bilirubin Direct Bilirubin AST ALT Alkaline Phosphatase Total Protein Albumin Globulin Albumin/Globulin Ratio U Random Total Protein Urine Creatinine Protein/Creatinin Ratio Acetaminophen DARIELA Screen c-ANCA Antibody Pending p-ANCA Antibody Pending ALIVIA-1 Antibody SS-A/Ro IgG Antibody SS-B/La IgG Antibody Sm (Howe) Antibody ASSISTANT COMMUNITY MANAGER Antibody Scl-70 Scleroderma Ab Double Strand DNA Ab Centromere B Antibody Hepatitis A IgM Ab Hepatitis A Ab Total Hep Bs Antigen Hep B Core Total Ab Hep B Core IgM Ab Hepatitis C Ab Confirm Hepatitis C Comment Miscellaneous Test POC Glucose 102 10/31/17 10/31/17 11/01/17 22:45 22:45 04:14 WBC RBC Hgb Hct MCV MCH MCHC RDW RDW Differential Plt Count MPV Immature Gran % (Auto) Neut % (Auto) Lymph % (Auto) [place] % (Auto) Eos % (Auto) Baso % (Auto) Absolute Neuts (auto) Absolute Lymphs (auto) Total Counted Differential Comment Diff Path Review Eos Smear Total Cells PT 58.9 H INR 6.7 H* Sodium Potassium Chloride Carbon Dioxide Anion Gap BUN Creatinine Estim Creat Clear Calc Est GFR (MDRD) Af Amer Est GFR (MDRD) Non-Af BUN/Creatinine Ratio Glucose Calcium Total Bilirubin Direct Bilirubin AST ALT Alkaline Phosphatase Total Protein Albumin Globulin Albumin/Globulin Ratio U Random Total Protein 187.4 H Urine Creatinine 61.60 Protein/Creatinin Ratio 3042 H Acetaminophen DARIELA Screen c-ANCA Antibody p-ANCA Antibody ALIVIA-1 Antibody SS-A/Ro IgG Antibody SS-B/La IgG Antibody Sm (Howe) Antibody ASSISTANT COMMUNITY MANAGER Antibody Scl-70 Scleroderma Ab Double Strand DNA Ab Centromere B Antibody Hepatitis A IgM Ab Hepatitis A Ab Total Hep Bs Antigen Hep B Core Total Ab Hep B Core IgM Ab Hepatitis C Ab Confirm Hepatitis C Comment Miscellaneous Test Pending POC Glucose 11/01/17 11/01/17 04:14 04:14 WBC 15.6 H RBC 3.16 L Hgb 8.4 L Hct 25.4 L MCV 80.4 MCH 26.6 L MCHC 33.1 RDW 19.0 H RDW Differential 56.2 H Plt Count 104 L MPV 10.0 Immature Gran % (Auto) 0.300 Neut % (Auto) 49.4 Lymph % (Auto) 35.2 [place] % (Auto) 7.2 Eos % (Auto) 5.3 H Baso % (Auto) 2.6 H Absolute Neuts (auto) 7.7 Absolute Lymphs (auto) 5.48 H Total Counted Not Reportable Differential Comment Diff Path Review Eos Smear Total Cells PT INR Sodium 149 H Potassium 4.8 Chloride 115 H Carbon Dioxide 21.0 Anion Gap 13 BUN 27 H Creatinine 2.15 H Estim Creat Clear Calc 44.07 Est GFR (MDRD) Af Amer 41 L Est GFR (MDRD) Non-Af 34 L BUN/Creatinine Ratio 12.6 Glucose 79 Calcium 8.3 L Total Bilirubin 8.60 H Direct Bilirubin AST 1227 H ALT 757 H Alkaline Phosphatase 475 H Total Protein 6.8 Albumin 1.4 L Globulin 5.4 H Albumin/Globulin Ratio 0.3 L U Random Total Protein Urine Creatinine Protein/Creatinin Ratio Acetaminophen DARIELA Screen c-ANCA Antibody p-ANCA Antibody ALIVIA-1 Antibody SS-A/Ro IgG Antibody SS-B/La IgG Antibody Sm (Howe) Antibody ASSISTANT COMMUNITY MANAGER Antibody Scl-70 Scleroderma Ab Double Strand DNA Ab Centromere B Antibody Hepatitis A IgM Ab Hepatitis A Ab Total Hep Bs Antigen Hep B Core Total Ab Hep B Core IgM Ab Hepatitis C Ab Confirm Hepatitis C Comment Miscellaneous Test POC Glucose Clinical Impression(s) from Imaging Studies Chest X-Ray 10/28/17 19:51 IMPRESSION: Decreased inspiratory effort with bibasilar atelectasis. The study is otherwise unchanged. Electronically Signed: Frantz Paula DO at 20:07 EDT Tel [phone], Service support , Lower Extremity CT 10/28/17 19:52 IMPRESSION: 1. Right total knee arthroplasty. 2. Abscess which appears to involve the suprapatellar space and extends outward along the vastus medialis musculature. There is associated periosteal reaction on the femur without evidence of fracture or cortical disruption. Electronically Signed: Frantz Paula DO at 21:26 EDT Tel [phone], Service support , Gallbladder Ultrasound 10/28/17 20:42 IMPRESSION: 1. Mild hepatomegaly. This appears unchanged from prior study. 2. No evidence for gallbladder and biliary ductal abnormality. 3. Stable column of Hector within the right kidney. Electronically Signed: Frantz Paula DO at 21:32 EDT Tel [phone], Service support , Medical Necessity - Tobacco Use Smoking Status: Never smoker Assessment/Plan All Active Problems Fever with exanthematous rash (Acute) Septic shock (Acute) Coagulopathy (Acute) DAYNA (acute kidney injury) (Acute) Abscess of right thigh (Acute) Hematuria (Acute) 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 knee joint (Resolved) Atrial fibrillation with RVR (Resolved) Acute cystitis (Resolved) Severe sepsis (Resolved) RECOMMENDATIONS: 1. Repeat gallbladder ultrasound, given rising bilirubin level. 2. Continue to hold antibiotics. 3. Continue steroids as ordered. 4. No indication currently for vitamin K or FFP. Continue to monitor INR daily. 5. Check ammonia level 6. Gentle IV fluid hydration with D5W given elevated sodium and chloride. IMPRESSIONS: 1. Septic shock versus systemic drug reaction with multisystem involvement The patient was on treatment with IV antibiotics on an outpatient basis due to a right thigh abscess. However, culture data has been negative to date. The patient had been treated with vancomycin, Zyvox and doxycycline and reportedly developed a drug reaction to both vancomycin and Zyvox. The patient was transiently on vasopressor support. His antibiotics were transitioned to Zosyn and doxycycline on admission to the hospital. However, the patient had evidence of a desquamating rash concerning for a possible hypersensitivity reaction like DRESS vs SJS/TEN. Although he has stabilized from a hemodynamic perspective, the patient continued to have significant peripheral eosinophilia and worsening hepatitis and renal insufficiency. At this time, given the lack of culture data, his antibiotics were discontinued and the patient was placed on IV steroids. He is improving clinically, with the exception of worsening hyperbilirubinemia. We will plan to repeat the patient's right upper quadrant ultrasound accordingly and check serum ammonia level. IV steroids can likely be transitioned to prednisone beginning tomorrow. 2. Acute hepatitis Unclear etiology at this time. Although the patient did have impaired hemodynamics, would anticipate plateau in transaminases if this is related to shock liver. Other potential etiologies include systemic involvement from a potential drug reaction. At this time, we will continue to monitor and provide supportive care. Recommend discontinuation of acetaminophen. Prior gallbladder ultrasound was unremarkable. However, given the patient's rising bilirubin level, a repeat right upper quadrant ultrasound will be repeated. 3. Acute kidney injury Possibly related to ischemic ATN from prior hypotension. Alternatively, given the patient's significant eosinophilia, acute interstitial nephritis is a possibility. The patient's creatinine has improved with stabilization of hemodynamics. Urine output is appropriate. No indication for renal replacement therapy. 4. Factor V Leiden with history of PE/DVT with supratherapeutic INR On Coumadin therapy at baseline. Supratherapeutic INR on presentation likely secondary to ongoing sepsis, antibiotics and fever. Continue to monitor INR daily. There is no evidence of active bleeding at this time. Systemic anticoagulation will need to be initiated, once the patient's INR becomes subtherapeutic. Anticipate continued derangements in coagulation, given the patient's underlying hepatic dysfunction. 5. Acute blood loss anemia secondary to hematuria The patient received 2 units of packed red blood cells with appropriate incrementation in hemoglobin level. Hematuria appears to have resolved at this time. However, there continues to be issues with the patient's More[place]. Urology is following. Unless indicated by urology, recommend consideration for removal of Morejon catheter. This note was generated with [employer] dictation software. It may contain incorrect words, spelling, and punctuation that were not noted in checking the note before signing. Code Visit Inpatient E&M: 44974 Subs Hosp L3
--- NOTE | 2017-11-01 07:11 | US_ITS ---
STUDY: ABDOMINAL ULTRASOUND - RIGHT UPPER QUADRANT REASON FOR VISIT: Male, 57 years old. Increasing bilirubin. TECHNIQUE: Ultrasound evaluation of the right upper quadrant was performed with real-time and static hampton-scale imaging. TECHNICAL QUALITY: Adequate. COMPARISON: Comparison is made with prior sonogram dated October 28, 2017. FINDINGS: Tiny right pleural effusion. Liver: The liver is enlarged and measures 18.5 cm. There is increased echogenicity consistent with fatty infiltration. The bile ducts are within normal limits. There is hepatic color flow. The direction of portal flow is hepatopetal. There is no demonstrated mass lesion. Minimal perihepatic fluid. Gallbladder: Normal distended gallbladder. The gallbladder wall is thickened and measures 4.9 mm. There is a negative sonographic Harper's sign. There is a small amount of pericholecystic fluid. Pericholecystic fluid. There are no gallstones. Common Bile Duct (C.B.D.): The common bile duct measures 4.4 mm. Pancreas: Normal size of the head, body and tail of the pancreas. There is normal echogenicity of the pancreas. There is no demonstrated pancreatic mass or cyst. Right Kidney: Normal size of the right kidney. The right kidney measures 14.2 cm x 6.3 cm x 4.9 cm. Normal renal cortex. The right cortex measures 1.3 cm. There is a 1.4 cm x 1.1 cm x 1.1 cm cyst. There is no right hydronephrosis. US/Gallbladder IMPRESSION: Thickened gallbladder wall with a small amount of pericholecystic fluid. Mild hepatomegaly and mild degree of fatty infiltration of the liver. Minimal amount of perihepatic fluid. Tiny right pleural effusion. Electronically Signed: Froylan Sims MD at 12:34 EDT Tel [phone], Service support ,
--- NOTE | 2017-11-01 08:31 | PCM.PN.REN ---
Patient Problems: Active and Suspected Problems Septic shock (Acute) Coagulopathy (Acute) DAYNA (acute kidney injury) (Acute) Abscess of right thigh (Acute) Hematuria (Acute) Subjective: Pt is doing okay. No CP. No SOB. No nausea No vomiting - Physical Exam General: Alert, Oriented x3 HEENT: Atraumatic Oral: Moist Mucosa Neck: Supple, No JVD Lungs: Clear to auscultation, Normal air movement, No rhonchi, No wheeze Cardiovascular: Regular rate, Regular Rhythm, Normal S1, Normal S2 Abdomen: Bowel Sounds Present, Soft, Non Tender Extremities: Edema Skin: Rash Present Lymphatic: No Cervical, Supraclavicular, or Inguinal Adenopathy Neurological: Cranial nerves II-XII grossly intact, Neuro grossly intact Psych/Mental Status: Normal Affect Vital Signs Temp Pulse Resp BP Pulse Ox 98.0 F 90 15 113/71 97 11/01/17 04:00 11/01/17 07:00 11/01/17 07:00 11/01/17 07:00 11/01/17 07:00 Oxygen Flow Rate (L/min) 1 Oxygen Delivery Method Room Air Weight: 91 kg Body Mass Index (BMI) 23.6 Intake and Output for Last 24 Hours 10/30/17 10/31/17 11/01/17 23:59 23:59 23:59 Intake Total 6234.6 / 6234.6 2065.4 / 2065.4 480 / 480 Output Total 1635 / 1635 1325 / 1325 575 / 575 Balance 4599.6 / 4599.6 740.4 / 740.4 -95 / -95 Microbiology Past 72 Hours 10/29/17 12:30 C. difficile DNA Amplification - Final Stool 10/29/17 12:30 Stool Occult Blood (SANDRA) - Final Stool Laboratory Tests Past 24 Hrs 10/30/17 10/31/17 10/31/17 04:50 04:50 11:00 WBC RBC Hgb Hct MCV MCH MCHC RDW RDW Differential Plt Count MPV Immature Gran % (Auto) Neut % (Auto) Lymph % (Auto) [place] % (Auto) Eos % (Auto) Baso % (Auto) Absolute Neuts (auto) Absolute Lymphs (auto) Total Counted Diff Path Review Reviewed Reviewed Eos Smear Total Cells PT INR Sodium Potassium Chloride Carbon Dioxide Anion Gap BUN Creatinine Estim Creat Clear Calc Est GFR (MDRD) Af Amer Est GFR (MDRD) Non-Af BUN/Creatinine Ratio Glucose Calcium Total Bilirubin AST ALT Alkaline Phosphatase Total Protein Albumin Globulin Albumin/Globulin Ratio U Random Total Protein Urine Creatinine Protein/Creatinin Ratio Acetaminophen 2.5 L DARIELA Screen c-ANCA Antibody p-ANCA Antibody ALIVIA-1 Antibody SS-A/Ro IgG Antibody SS-B/La IgG Antibody Sm (Howe) Antibody SENIOR SOFTWARE DEVELOPER Antibody Scl-70 Scleroderma Ab Double Strand DNA Ab Centromere B Antibody Miscellaneous Test 10/31/17 10/31/17 10/31/17 11:00 11:00 22:45 WBC RBC Hgb Hct MCV MCH MCHC RDW RDW Differential Plt Count MPV Immature Gran % (Auto) Neut % (Auto) Lymph % (Auto) [place] % (Auto) Eos % (Auto) Baso % (Auto) Absolute Neuts (auto) Absolute Lymphs (auto) Total Counted Diff Path Review Eos Smear Total Cells Pending PT INR Sodium Potassium Chloride Carbon Dioxide Anion Gap BUN Creatinine Estim Creat Clear Calc Est GFR (MDRD) Af Amer Est GFR (MDRD) Non-Af BUN/Creatinine Ratio Glucose Calcium Total Bilirubin AST ALT Alkaline Phosphatase Total Protein Albumin Globulin Albumin/Globulin Ratio U Random Total Protein Urine Creatinine Protein/Creatinin Ratio Acetaminophen DARIELA Screen Pending c-ANCA Antibody Pending p-ANCA Antibody Pending ALIVIA-1 Antibody Pending SS-A/Ro IgG Antibody Pending SS-B/La IgG Antibody Pending Sm (Howe) Antibody Pending SENIOR SOFTWARE DEVELOPER Antibody Pending Scl-70 Scleroderma Ab Pending Double Strand DNA Ab Pending Centromere B Antibody Pending Miscellaneous Test 10/31/17 10/31/17 11/01/17 22:45 22:45 04:14 WBC RBC Hgb Hct MCV MCH MCHC RDW RDW Differential Plt Count MPV Immature Gran % (Auto) Neut % (Auto) Lymph % (Auto) [place] % (Auto) Eos % (Auto) Baso % (Auto) Absolute Neuts (auto) Absolute Lymphs (auto) Total Counted Diff Path Review Eos Smear Total Cells PT 58.9 H INR 6.7 H* Sodium Potassium Chloride Carbon Dioxide Anion Gap BUN Creatinine Estim Creat Clear Calc Est GFR (MDRD) Af Amer Est GFR (MDRD) Non-Af BUN/Creatinine Ratio Glucose Calcium Total Bilirubin AST ALT Alkaline Phosphatase Total Protein Albumin Globulin Albumin/Globulin Ratio U Random Total Protein 187.4 H Urine Creatinine 61.60 Protein/Creatinin Ratio 3042 H Acetaminophen DARIELA Screen c-ANCA Antibody p-ANCA Antibody ALIVIA-1 Antibody SS-A/Ro IgG Antibody SS-B/La IgG Antibody Sm (Howe) Antibody SENIOR SOFTWARE DEVELOPER Antibody Scl-70 Scleroderma Ab Double Strand DNA Ab Centromere B Antibody Miscellaneous Test Pending 11/01/17 11/01/17 04:14 04:14 WBC 15.6 H RBC 3.16 L Hgb 8.4 L Hct 25.4 L MCV 80.4 MCH 26.6 L MCHC 33.1 RDW 19.0 H RDW Differential 56.2 H Plt Count 104 L MPV 10.0 Immature Gran % (Auto) 0.300 Neut % (Auto) 49.4 Lymph % (Auto) 35.2 [place] % (Auto) 7.2 Eos % (Auto) 5.3 H Baso % (Auto) 2.6 H Absolute Neuts (auto) 7.7 Absolute Lymphs (auto) 5.48 H Total Counted Not Reportable Diff Path Review Eos Smear Total Cells PT INR Sodium 149 H Potassium 4.8 Chloride 115 H Carbon Dioxide 21.0 Anion Gap 13 BUN 27 H Creatinine 2.15 H Estim Creat Clear Calc 44.07 Est GFR (MDRD) Af Amer 41 L Est GFR (MDRD) Non-Af 34 L BUN/Creatinine Ratio 12.6 Glucose 79 Calcium 8.3 L Total Bilirubin 8.60 H AST 1227 H ALT 757 H Alkaline Phosphatase 475 H Total Protein 6.8 Albumin 1.4 L Globulin 5.4 H Albumin/Globulin Ratio 0.3 L U Random Total Protein Urine Creatinine Protein/Creatinin Ratio Acetaminophen DARIELA Screen c-ANCA Antibody p-ANCA Antibody AILVIA-1 Antibody SS-A/Ro IgG Antibody SS-B/La IgG Antibody Sm (Howe) Antibody SENIOR SOFTWARE DEVELOPER Antibody Scl-70 Scleroderma Ab Double Strand DNA Ab Centromere B Antibody Miscellaneous Test POC Glucose 10/31/17 16:21 POC Glucose 102 Medical Necessity - Tobacco Use Smoking Status: Never smoker Assessment/Plan All Active Problems Fever with exanthematous rash (Acute) Septic shock (Acute) Coagulopathy (Acute) DAYNA (acute kidney injury) (Acute) Abscess of right thigh (Acute) Hematuria (Acute) 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 knee joint (Resolved) Atrial fibrillation with RVR (Resolved) Acute cystitis (Resolved) Severe sepsis (Resolved) 1-Acute kidney injury. Patient has normal creatinine at baseline. Acute kidney injury is most probably from ischemic ATN. Less likely AIN because the fist UA did not show RBC and or WBC in the urine. Creatinine peaked at 2.7 mg/dL 10/30. ATN is on the recovery phase. Cr is trending down. Nonoliguric. No polyuria Keep mean arterial pressure more than 65. 2-hematuria most probably traumatic More[place] catheter placement. Continue bladder irrigation. Improving 3- Proteinuria: Pro/Cr 3 g. Most probably related to hematuria. Will repeat the ratio when hematuria resolves 4-skin rash/impaired LFTs. 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 Patient is receiving IV Solu-Medrol. off Abx 5-septic shock. resolved.. Of pressor.Off Abx Renal team will continue to follow. Please do not hesitate to call me with any question at my cell phone [phone] Mary Medina MD
--- NOTE | 2017-11-01 08:37 | PN.RENAL_ITS ---
Patient Problems: Active and Suspected Problems Septic shock (Acute) Coagulopathy (Acute) DAYNA (acute kidney injury) (Acute) Abscess of right thigh (Acute) Hematuria (Acute) Subjective: Pt is doing okay. No CP. No SOB. No nausea No vomiting - Physical Exam General: Alert, Oriented x3 HEENT: Atraumatic Oral: Moist Mucosa Neck: Supple, No JVD Lungs: Clear to auscultation, Normal air movement, No rhonchi, No wheeze Cardiovascular: Regular rate, Regular Rhythm, Normal S1, Normal S2 Abdomen: Bowel Sounds Present, Soft, Non Tender Extremities: Edema Skin: Rash Present Lymphatic: No Cervical, Supraclavicular, or Inguinal Adenopathy Neurological: Cranial nerves II-XII grossly intact, Neuro grossly intact Psych/Mental Status: Normal Affect Vital Signs Temp Pulse Resp BP Pulse Ox 98.0 F 90 15 113/71 97 11/01/17 04:00 11/01/17 07:00 11/01/17 07:00 11/01/17 07:00 11/01/17 07:00 Oxygen Flow Rate (L/min) 1 Oxygen Delivery Method Room Air Weight: 91 kg Body Mass Index (BMI) 23.6 Intake and Output for Last 24 Hours 10/30/17 10/31/17 11/01/17 23:59 23:59 23:59 Intake Total 6234.6 / 6234.6 2065.4 / 2065.4 480 / 480 Output Total 1635 / 1635 1325 / 1325 575 / 575 Balance 4599.6 / 4599.6 740.4 / 740.4 -95 / -95 Microbiology Past 72 Hours 10/29/17 12:30 C. difficile DNA Amplification - Final Stool 10/29/17 12:30 Stool Occult Blood (SANDRA) - Final Stool Laboratory Tests Past 24 Hrs 10/30/17 10/31/17 10/31/17 04:50 04:50 11:00 WBC RBC Hgb Hct MCV MCH MCHC RDW RDW Differential Plt Count MPV Immature Gran % (Auto) Neut % (Auto) Lymph % (Auto) Bartholomew % (Auto) Eos % (Auto) Baso % (Auto) Absolute Neuts (auto) Absolute Lymphs (auto) Total Counted Diff Path Review Reviewed Reviewed Eos Smear Total Cells PT INR Sodium Potassium Chloride Carbon Dioxide Anion Gap BUN Creatinine Estim Creat Clear Calc Est GFR (MDRD) Af Amer Est GFR (MDRD) Non-Af BUN/Creatinine Ratio Glucose Calcium Total Bilirubin AST ALT Alkaline Phosphatase Total Protein Albumin Globulin Albumin/Globulin Ratio U Random Total Protein Urine Creatinine Protein/Creatinin Ratio Acetaminophen 2.5 L DARIELA Screen c-ANCA Antibody p-ANCA Antibody ALIVIA-1 Antibody SS-A/Ro IgG Antibody SS-B/La IgG Antibody Sm (Howe) Antibody HYDROPRESS OPERATOR Antibody Scl-70 Scleroderma Ab Double Strand DNA Ab Centromere B Antibody Miscellaneous Test 10/31/17 10/31/17 10/31/17 11:00 11:00 22:45 WBC RBC Hgb Hct MCV MCH MCHC RDW RDW Differential Plt Count MPV Immature Gran % (Auto) Neut % (Auto) Lymph % (Auto) Bartholomew % (Auto) Eos % (Auto) Baso % (Auto) Absolute Neuts (auto) Absolute Lymphs (auto) Total Counted Diff Path Review Eos Smear Total Cells Pending PT INR Sodium Potassium Chloride Carbon Dioxide Anion Gap BUN Creatinine Estim Creat Clear Calc Est GFR (MDRD) Af Amer Est GFR (MDRD) Non-Af BUN/Creatinine Ratio Glucose Calcium Total Bilirubin AST ALT Alkaline Phosphatase Total Protein Albumin Globulin Albumin/Globulin Ratio U Random Total Protein Urine Creatinine Protein/Creatinin Ratio Acetaminophen DARIELA Screen Pending c-ANCA Antibody Pending p-ANCA Antibody Pending ALIVIA-1 Antibody Pending SS-A/Ro IgG Antibody Pending SS-B/La IgG Antibody Pending Sm (Howe) Antibody Pending HYDROPRESS OPERATOR Antibody Pending Scl-70 Scleroderma Ab Pending Double Strand DNA Ab Pending Centromere B Antibody Pending Miscellaneous Test 10/31/17 10/31/17 11/01/17 22:45 22:45 04:14 WBC RBC Hgb Hct MCV MCH MCHC RDW RDW Differential Plt Count MPV Immature Gran % (Auto) Neut % (Auto) Lymph % (Auto) Bartholomew % (Auto) Eos % (Auto) Baso % (Auto) Absolute Neuts (auto) Absolute Lymphs (auto) Total Counted Diff Path Review Eos Smear Total Cells PT 58.9 H INR 6.7 H* Sodium Potassium Chloride Carbon Dioxide Anion Gap BUN Creatinine Estim Creat Clear Calc Est GFR (MDRD) Af Amer Est GFR (MDRD) Non-Af BUN/Creatinine Ratio Glucose Calcium Total Bilirubin AST ALT Alkaline Phosphatase Total Protein Albumin Globulin Albumin/Globulin Ratio U Random Total Protein 187.4 H Urine Creatinine 61.60 Protein/Creatinin Ratio 3042 H Acetaminophen DARIELA Screen c-ANCA Antibody p-ANCA Antibody ALIVIA-1 Antibody SS-A/Ro IgG Antibody SS-B/La IgG Antibody Sm (Howe) Antibody HYDROPRESS OPERATOR Antibody Scl-70 Scleroderma Ab Double Strand DNA Ab Centromere B Antibody Miscellaneous Test Pending 11/01/17 11/01/17 04:14 04:14 WBC 15.6 H RBC 3.16 L Hgb 8.4 L Hct 25.4 L MCV 80.4 MCH 26.6 L MCHC 33.1 RDW 19.0 H RDW Differential 56.2 H Plt Count 104 L MPV 10.0 Immature Gran % (Auto) 0.300 Neut % (Auto) 49.4 Lymph % (Auto) 35.2 Bartholomew % (Auto) 7.2 Eos % (Auto) 5.3 H Baso % (Auto) 2.6 H Absolute Neuts (auto) 7.7 Absolute Lymphs (auto) 5.48 H Total Counted Not Reportable Diff Path Review Eos Smear Total Cells PT INR Sodium 149 H Potassium 4.8 Chloride 115 H Carbon Dioxide 21.0 Anion Gap 13 BUN 27 H Creatinine 2.15 H Estim Creat Clear Calc 44.07 Est GFR (MDRD) Af Amer 41 L Est GFR (MDRD) Non-Af 34 L BUN/Creatinine Ratio 12.6 Glucose 79 Calcium 8.3 L Total Bilirubin 8.60 H AST 1227 H ALT 757 H Alkaline Phosphatase 475 H Total Protein 6.8 Albumin 1.4 L Globulin 5.4 H Albumin/Globulin Ratio 0.3 L U Random Total Protein Urine Creatinine Protein/Creatinin Ratio Acetaminophen DARIELA Screen c-ANCA Antibody p-ANCA Antibody ALIVIA-1 Antibody SS-A/Ro IgG Antibody SS-B/La IgG Antibody Sm (Howe) Antibody HYDROPRESS OPERATOR Antibody Scl-70 Scleroderma Ab Double Strand DNA Ab Centromere B Antibody Miscellaneous Test POC Glucose 10/31/17 16:21 POC Glucose 102 Medical Necessity - Tobacco Use Smoking Status: Never smoker Assessment/Plan All Active Problems Fever with exanthematous rash (Acute) Septic shock (Acute) Coagulopathy (Acute) DAYNA (acute kidney injury) (Acute) Abscess of right thigh (Acute) Hematuria (Acute) 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 knee joint (Resolved) Atrial fibrillation with RVR (Resolved) Acute cystitis (Resolved) Severe sepsis (Resolved) 1-Acute kidney injury. Patient has normal creatinine at baseline. Acute kidney injury is most probably from ischemic ATN. Less likely AIN because the fist UA did not show RBC and or WBC in the urine. Creatinine peaked at 2.7 mg/dL 10/30. ATN is on the recovery phase. Cr is trending down. Nonoliguric. No polyuria Keep mean arterial pressure more than 65. 2-hematuria most probably traumatic [place] catheter placement. Continue bladder irrigation. Improving 3- Proteinuria: Pro/Cr 3 g. Most probably related to hematuria. Will repeat the ratio when hematuria resolves 4-skin rash/impaired LFTs. 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 Patient is receiving IV Solu-Medrol. off Abx 5-septic shock. resolved.. Of pressor.Off Abx Renal team will continue to follow. Please do not hesitate to call me with any question at my cell phone [phone] Mary Medina MD
--- NOTE | 2017-11-01 08:57 | PCM.PN.GU ---
Physical Exam Subjective: Patient is awake, lying in bed. He is looking better overall than he did yesterday and reports feeling better than he did yesterday. Denies abdominal pain or complaints regarding his Clarke catheter. - Physical Exam Vital Signs Temp 98.0 F 11/01/17 08:00 Pulse 90 11/01/17 08:00 Resp 12 11/01/17 08:00 BP 114/73 11/01/17 08:00 Pulse Ox 100 11/01/17 08:00 Intake & Output 10/30/17 10/31/17 11/01/17 23:59 23:59 23:59 Intake Total 6234.6 / 6234.6 2065.4 / 2065.4 480 / 480 Output Total 1635 / 1635 1325 / 1325 575 / 575 Balance 4599.6 / 4599.6 740.4 / 740.4 -95 / -95 Weight: 88 kg 90.5 kg 91 kg Intake: Oral 1340 / 1340 540 / 540 480 / 480 IV fluid/meds 3834.6 / 3834.6 1525.4 / 1525.4 Blood Product 1000 / 1000 Frozen Plasma, Single Donor 200 / 200 Unit [id number] Frozen Plasma, Single Donor 200 / 200 Unit [id number] Frozen Plasma, Single Donor 200 / 200 Unit [id number] Leuko-Reduced Red Blood Cells 0 / 0 Unit [id number] Leuko-Reduced Red Blood Cells 400 / 400 Unit [id number] Other 60 / 60 Output: Urine 1635 / 1635 1325 / 1325 575 / 575 Other: Incontinent Amount Urine #2 Large Number of times incontinent 3 Urine #2 Number of Bowel Movements 1 2 General: Alert, Oriented x3, Cooperative, No apparent distress HEENT: Atraumatic, Normocephalic Oral: Moist Mucosa Neck: Trachea Midline Lungs: Normal air movement Abdomen: Soft Rectal: Exam deferred Groin: - - clarke catheter with clear yellow urine. Skin: Rash Present Neurological: Cranial nerves II-XII grossly intact, Neuro grossly intact Psych/Mental Status: Normal Affect Microbiology Past 72 Hours 10/29/17 12:30 C. difficile DNA Amplification - Final Stool 10/29/17 12:30 Stool Occult Blood (SANDRA) - Final Stool Laboratory Tests Past 24 Hrs 10/30/17 10/31/17 10/31/17 04:50 04:50 11:00 WBC RBC Hgb Hct MCV MCH MCHC RDW RDW Differential Plt Count MPV Immature Gran % (Auto) Neut % (Auto) Lymph % (Auto) Giles % (Auto) Eos % (Auto) Baso % (Auto) Absolute Neuts (auto) Absolute Lymphs (auto) Total Counted Diff Path Review Reviewed Reviewed Eos Smear Total Cells PT INR Sodium Potassium Chloride Carbon Dioxide Anion Gap BUN Creatinine Estim Creat Clear Calc Est GFR (MDRD) Af Amer Est GFR (MDRD) Non-Af BUN/Creatinine Ratio Glucose Calcium Total Bilirubin AST ALT Alkaline Phosphatase Ammonia Total Protein Albumin Globulin Albumin/Globulin Ratio U Random Total Protein Urine Creatinine Protein/Creatinin Ratio Acetaminophen 2.5 L DARIELA Screen c-ANCA Antibody p-ANCA Antibody ALIVIA-1 Antibody SS-A/Ro IgG Antibody SS-B/La IgG Antibody Sm (Howe) Antibody COMMERCIAL CONSTRUCTION PROJECT MANAGER Antibody Scl-70 Scleroderma Ab Double Strand DNA Ab Centromere B Antibody Miscellaneous Test 10/31/17 10/31/17 10/31/17 11:00 11:00 22:45 WBC RBC Hgb Hct MCV MCH MCHC RDW RDW Differential Plt Count MPV Immature Gran % (Auto) Neut % (Auto) Lymph % (Auto) Giles % (Auto) Eos % (Auto) Baso % (Auto) Absolute Neuts (auto) Absolute Lymphs (auto) Total Counted Diff Path Review Eos Smear Total Cells Pending PT INR Sodium Potassium Chloride Carbon Dioxide Anion Gap BUN Creatinine Estim Creat Clear Calc Est GFR (MDRD) Af Amer Est GFR (MDRD) Non-Af BUN/Creatinine Ratio Glucose Calcium Total Bilirubin AST ALT Alkaline Phosphatase Ammonia Total Protein Albumin Globulin Albumin/Globulin Ratio U Random Total Protein Urine Creatinine Protein/Creatinin Ratio Acetaminophen DARIELA Screen Pending c-ANCA Antibody Pending p-ANCA Antibody Pending ALIVIA-1 Antibody Pending SS-A/Ro IgG Antibody Pending SS-B/La IgG Antibody Pending Sm (Howe) Antibody Pending COMMERCIAL CONSTRUCTION PROJECT MANAGER Antibody Pending Scl-70 Scleroderma Ab Pending Double Strand DNA Ab Pending Centromere B Antibody Pending Miscellaneous Test 10/31/17 10/31/17 11/01/17 22:45 22:45 04:14 WBC RBC Hgb Hct MCV MCH MCHC RDW RDW Differential Plt Count MPV Immature Gran % (Auto) Neut % (Auto) Lymph % (Auto) Giles % (Auto) Eos % (Auto) Baso % (Auto) Absolute Neuts (auto) Absolute Lymphs (auto) Total Counted Diff Path Review Eos Smear Total Cells PT 58.9 H INR 6.7 H* Sodium Potassium Chloride Carbon Dioxide Anion Gap BUN Creatinine Estim Creat Clear Calc Est GFR (MDRD) Af Amer Est GFR (MDRD) Non-Af BUN/Creatinine Ratio Glucose Calcium Total Bilirubin AST ALT Alkaline Phosphatase Ammonia Total Protein Albumin Globulin Albumin/Globulin Ratio U Random Total Protein 187.4 H Urine Creatinine 61.60 Protein/Creatinin Ratio 3042 H Acetaminophen DARIELA Screen c-ANCA Antibody p-ANCA Antibody ALIVIA-1 Antibody SS-A/Ro IgG Antibody SS-B/La IgG Antibody Sm (Howe) Antibody COMMERCIAL CONSTRUCTION PROJECT MANAGER Antibody Scl-70 Scleroderma Ab Double Strand DNA Ab Centromere B Antibody Miscellaneous Test Cancelled 11/01/17 11/01/17 11/01/17 04:14 04:14 08:28 WBC 15.6 H RBC 3.16 L Hgb 8.4 L Hct 25.4 L MCV 80.4 MCH 26.6 L MCHC 33.1 RDW 19.0 H RDW Differential 56.2 H Plt Count 104 L MPV 10.0 Immature Gran % (Auto) 0.300 Neut % (Auto) 49.4 Lymph % (Auto) 35.2 Giles % (Auto) 7.2 Eos % (Auto) 5.3 H Baso % (Auto) 2.6 H Absolute Neuts (auto) 7.7 Absolute Lymphs (auto) 5.48 H Total Counted Not Reportable Diff Path Review Eos Smear Total Cells PT INR Sodium 149 H Potassium 4.8 Chloride 115 H Carbon Dioxide 21.0 Anion Gap 13 BUN 27 H Creatinine 2.15 H Estim Creat Clear Calc 44.07 Est GFR (MDRD) Af Amer 41 L Est GFR (MDRD) Non-Af 34 L BUN/Creatinine Ratio 12.6 Glucose 79 Calcium 8.3 L Total Bilirubin 8.60 H AST 1227 H ALT 757 H Alkaline Phosphatase 475 H Ammonia Pending Total Protein 6.8 Albumin 1.4 L Globulin 5.4 H Albumin/Globulin Ratio 0.3 L U Random Total Protein Urine Creatinine Protein/Creatinin Ratio Acetaminophen DARIELA Screen c-ANCA Antibody p-ANCA Antibody ALIVIA-1 Antibody SS-A/Ro IgG Antibody SS-B/La IgG Antibody Sm (Howe) Antibody COMMERCIAL CONSTRUCTION PROJECT MANAGER Antibody Scl-70 Scleroderma Ab Double Strand DNA Ab Centromere B Antibody Miscellaneous Test Medical Necessity - Tobacco Use Smoking Status: Never smoker Assessment/Plan All Active Problems Fever with exanthematous rash (Acute) Septic shock (Acute) Coagulopathy (Acute) DAYNA (acute kidney injury) (Acute) Abscess of right thigh (Acute) Hematuria (Acute) 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 knee joint (Resolved) Atrial fibrillation with RVR (Resolved) Acute cystitis (Resolved) Severe sepsis (Resolved) Continue clarke catheter until no longer medically necessary. Cr is trending down. No need for irrigation at present. Will need follow up as outpatient for cystoscopy. Will follow peripherally, please call with questions or concerns.
--- NOTE | 2017-11-01 09:01 | PN_ITS ---
Physical Exam Subjective: Patient is awake, lying in bed. He is looking better overall than he did yesterday and reports feeling better than he did yesterday. Denies abdominal pain or complaints regarding his Clarke catheter. - Physical Exam Vital Signs Temp 98.0 F 11/01/17 08:00 Pulse 90 11/01/17 08:00 Resp 12 11/01/17 08:00 BP 114/73 11/01/17 08:00 Pulse Ox 100 11/01/17 08:00 Intake & Output 10/30/17 10/31/17 11/01/17 23:59 23:59 23:59 Intake Total 6234.6 / 6234.6 2065.4 / 2065.4 480 / 480 Output Total 1635 / 1635 1325 / 1325 575 / 575 Balance 4599.6 / 4599.6 740.4 / 740.4 -95 / -95 Weight: 88 kg 90.5 kg 91 kg Intake: Oral 1340 / 1340 540 / 540 480 / 480 IV fluid/meds 3834.6 / 3834.6 1525.4 / 1525.4 Blood Product 1000 / 1000 Frozen Plasma, Single Donor 200 / 200 Unit [id number] Frozen Plasma, Single Donor 200 / 200 Unit [id number] Frozen Plasma, Single Donor 200 / 200 Unit [id number] Leuko-Reduced Red Blood Cells 0 / 0 Unit [id number] Leuko-Reduced Red Blood Cells 400 / 400 Unit [id number] Other 60 / 60 Output: Urine 1635 / 1635 1325 / 1325 575 / 575 Other: Incontinent Amount Urine #2 Large Number of times incontinent 3 Urine #2 Number of Bowel Movements 1 2 General: Alert, Oriented x3, Cooperative, No apparent distress HEENT: Atraumatic, Normocephalic Oral: Moist Mucosa Neck: Trachea Midline Lungs: Normal air movement Abdomen: Soft Rectal: Exam deferred Groin: - - clarke catheter with clear yellow urine. Skin: Rash Present Neurological: Cranial nerves II-XII grossly intact, Neuro grossly intact Psych/Mental Status: Normal Affect Microbiology Past 72 Hours 10/29/17 12:30 C. difficile DNA Amplification - Final Stool 10/29/17 12:30 Stool Occult Blood (SANDRA) - Final Stool Laboratory Tests Past 24 Hrs 10/30/17 10/31/17 10/31/17 04:50 04:50 11:00 WBC RBC Hgb Hct MCV MCH MCHC RDW RDW Differential Plt Count MPV Immature Gran % (Auto) Neut % (Auto) Lymph % (Auto) Parmer % (Auto) Eos % (Auto) Baso % (Auto) Absolute Neuts (auto) Absolute Lymphs (auto) Total Counted Diff Path Review Reviewed Reviewed Eos Smear Total Cells PT INR Sodium Potassium Chloride Carbon Dioxide Anion Gap BUN Creatinine Estim Creat Clear Calc Est GFR (MDRD) Af Amer Est GFR (MDRD) Non-Af BUN/Creatinine Ratio Glucose Calcium Total Bilirubin AST ALT Alkaline Phosphatase Ammonia Total Protein Albumin Globulin Albumin/Globulin Ratio U Random Total Protein Urine Creatinine Protein/Creatinin Ratio Acetaminophen 2.5 L DARIELA Screen c-ANCA Antibody p-ANCA Antibody ALIVIA-1 Antibody SS-A/Ro IgG Antibody SS-B/La IgG Antibody Sm (Howe) Antibody FIRE ALARM REPAIRER Antibody Scl-70 Scleroderma Ab Double Strand DNA Ab Centromere B Antibody Miscellaneous Test 10/31/17 10/31/17 10/31/17 11:00 11:00 22:45 WBC RBC Hgb Hct MCV MCH MCHC RDW RDW Differential Plt Count MPV Immature Gran % (Auto) Neut % (Auto) Lymph % (Auto) Parmer % (Auto) Eos % (Auto) Baso % (Auto) Absolute Neuts (auto) Absolute Lymphs (auto) Total Counted Diff Path Review Eos Smear Total Cells Pending PT INR Sodium Potassium Chloride Carbon Dioxide Anion Gap BUN Creatinine Estim Creat Clear Calc Est GFR (MDRD) Af Amer Est GFR (MDRD) Non-Af BUN/Creatinine Ratio Glucose Calcium Total Bilirubin AST ALT Alkaline Phosphatase Ammonia Total Protein Albumin Globulin Albumin/Globulin Ratio U Random Total Protein Urine Creatinine Protein/Creatinin Ratio Acetaminophen DARIELA Screen Pending c-ANCA Antibody Pending p-ANCA Antibody Pending ALIVIA-1 Antibody Pending SS-A/Ro IgG Antibody Pending SS-B/La IgG Antibody Pending Sm (Howe) Antibody Pending FIRE ALARM REPAIRER Antibody Pending Scl-70 Scleroderma Ab Pending Double Strand DNA Ab Pending Centromere B Antibody Pending Miscellaneous Test 10/31/17 10/31/17 11/01/17 22:45 22:45 04:14 WBC RBC Hgb Hct MCV MCH MCHC RDW RDW Differential Plt Count MPV Immature Gran % (Auto) Neut % (Auto) Lymph % (Auto) Parmer % (Auto) Eos % (Auto) Baso % (Auto) Absolute Neuts (auto) Absolute Lymphs (auto) Total Counted Diff Path Review Eos Smear Total Cells PT 58.9 H INR 6.7 H* Sodium Potassium Chloride Carbon Dioxide Anion Gap BUN Creatinine Estim Creat Clear Calc Est GFR (MDRD) Af Amer Est GFR (MDRD) Non-Af BUN/Creatinine Ratio Glucose Calcium Total Bilirubin AST ALT Alkaline Phosphatase Ammonia Total Protein Albumin Globulin Albumin/Globulin Ratio U Random Total Protein 187.4 H Urine Creatinine 61.60 Protein/Creatinin Ratio 3042 H Acetaminophen DARIELA Screen c-ANCA Antibody p-ANCA Antibody ALIVIA-1 Antibody SS-A/Ro IgG Antibody SS-B/La IgG Antibody Sm (Howe) Antibody FIRE ALARM REPAIRER Antibody Scl-70 Scleroderma Ab Double Strand DNA Ab Centromere B Antibody Miscellaneous Test Cancelled 11/01/17 11/01/17 11/01/17 04:14 04:14 08:28 WBC 15.6 H RBC 3.16 L Hgb 8.4 L Hct 25.4 L MCV 80.4 MCH 26.6 L MCHC 33.1 RDW 19.0 H RDW Differential 56.2 H Plt Count 104 L MPV 10.0 Immature Gran % (Auto) 0.300 Neut % (Auto) 49.4 Lymph % (Auto) 35.2 Parmer % (Auto) 7.2 Eos % (Auto) 5.3 H Baso % (Auto) 2.6 H Absolute Neuts (auto) 7.7 Absolute Lymphs (auto) 5.48 H Total Counted Not Reportable Diff Path Review Eos Smear Total Cells PT INR Sodium 149 H Potassium 4.8 Chloride 115 H Carbon Dioxide 21.0 Anion Gap 13 BUN 27 H Creatinine 2.15 H Estim Creat Clear Calc 44.07 Est GFR (MDRD) Af Amer 41 L Est GFR (MDRD) Non-Af 34 L BUN/Creatinine Ratio 12.6 Glucose 79 Calcium 8.3 L Total Bilirubin 8.60 H AST 1227 H ALT 757 H Alkaline Phosphatase 475 H Ammonia Pending Total Protein 6.8 Albumin 1.4 L Globulin 5.4 H Albumin/Globulin Ratio 0.3 L U Random Total Protein Urine Creatinine Protein/Creatinin Ratio Acetaminophen DARIELA Screen c-ANCA Antibody p-ANCA Antibody ALIVIA-1 Antibody SS-A/Ro IgG Antibody SS-B/La IgG Antibody Sm (Howe) Antibody FIRE ALARM REPAIRER Antibody Scl-70 Scleroderma Ab Double Strand DNA Ab Centromere B Antibody Miscellaneous Test Medical Necessity - Tobacco Use Smoking Status: Never smoker Assessment/Plan All Active Problems Fever with exanthematous rash (Acute) Septic shock (Acute) Coagulopathy (Acute) DAYNA (acute kidney injury) (Acute) Abscess of right thigh (Acute) Hematuria (Acute) 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 knee joint (Resolved) Atrial fibrillation with RVR (Resolved) Acute cystitis (Resolved) Severe sepsis (Resolved) Continue clarke catheter until no longer medically necessary. Cr is trending down. No need for irrigation at present. Will need follow up as outpatient for cystoscopy. Will follow peripherally, please call with questions or concerns.
--- NOTE | 2017-11-01 10:27 | PCM.PN.HOSP ---
Patient Problems: Active and Suspected Problems Septic shock (Acute) Coagulopathy (Acute) DAYNA (acute kidney injury) (Acute) Abscess of right thigh (Acute) Hematuria (Acute) Subjective: Patient seen and examined. He is more lethargic today. He denies any fever, chills, cough, chest pain, SOB, abdominal pain, diarrhea or vomiting. LAbs and vitals reviewed. Recommendation for transfer to to [facility] offered, but patient refused transfer. Vitals/I&O's: Vital Signs Temp Pulse Resp BP Pulse Ox 98.0 F 90 12 114/73 100 11/01/17 08:00 11/01/17 08:00 11/01/17 08:00 11/01/17 08:00 11/01/17 08:00 Oxygen Flow Rate (L/min) 1 Oxygen Delivery Method Room Air Weight: 200 lb 9.93 oz Body Mass Index (BMI) 23.6 Intake and Output for Last 24 Hours 10/30/17 10/31/17 11/01/17 23:59 23:59 23:59 Intake Total 6234.6 / 6234.6 2065.4 / 2065.4 480 / 480 Output Total 1635 / 1635 1325 / 1325 575 / 575 Balance 4599.6 / 4599.6 740.4 / 740.4 -95 / -95 General: Alert, Oriented x3, Cooperative, No apparent distress HEENT: Atraumatic, PERRLA, EOMI, Normocephalic, - - jaundiced sclera Oral: Moist Mucosa Neck: Supple, No JVD, Negative Carotid Bruits Lungs: Clear to auscultation, Normal air movement, No rhonchi, No wheeze, No rales Cardiovascular: Regular rate, Regular Rhythm, Normal S1, Normal S2, No murmurs Abdomen: Bowel Sounds Present, Soft, Non Tender, Non-Distended, No Hepato-splenomegaly Extremities: No clubbing, No cyanosis, No edema, Capillary Refill Less than 3 Seconds Skin: No rashes, No breakdown Musculoskeletal: No Tenderness to Palpation of Joints or Extremities Lymphatic: No Cervical, Supraclavicular, or Inguinal Adenopathy Neurological: Cranial nerves II-XII grossly intact, Motor Exam 5/5 strength throughout Psych/Mental Status: Normal Affect, Appropriate, Alert and oriented to time, place, person, mood and affect Microbiology Past 72 Hours 10/29/17 12:30 Stool C. difficile DNA Amplification - Final 10/29/17 12:30 Stool Stool Occult Blood (SANDRA) - Final Laboratory Results 10/30/17 04:50: Diff Path Review Reviewed 10/31/17 04:50: Diff Path Review Reviewed 10/31/17 11:00: Acetaminophen 2.5 L 10/31/17 11:00: DARIELA Screen Pending, ALIVIA-1 Antibody Pending, SS-A/Ro IgG Antibody Pending, SS-B/La IgG Antibody Pending, Sm (Howe) Antibody Pending, PRIMER POWDER BLENDER WET Antibody Pending, Scl-70 Scleroderma Ab Pending, Double Strand DNA Ab Pending, Centromere B Antibody Pending 10/31/17 11:00: c-ANCA Antibody Pending, p-ANCA Antibody Pending 10/31/17 16:21: POC Glucose 102 10/31/17 22:45: Eos Smear Total Cells Pending 10/31/17 22:45: Miscellaneous Test Cancelled 10/31/17 22:45: U Random Total Protein 187.4 H, Urine Creatinine 61.60, Protein/Creatinin Ratio 3042 H 11/01/17 04:14: PT 58.9 H, INR 6.7 H* 11/01/17 04:14: WBC 15.6 H, RBC 3.16 L, Hgb 8.4 L, Hct 25.4 L, MCV 80.4, MCH 26.6 L, MCHC 33.1, RDW 19.0 H, RDW Differential 56.2 H, Plt Count 104 L, MPV 10.0, Immature Gran % (Auto) 0.300, Neut % (Auto) 49.4, Lymph % (Auto) 35.2, [place] % (Auto) 7.2, Eos % (Auto) 5.3 H, Baso % (Auto) 2.6 H, Absolute Neuts (auto) 7.7, Absolute Lymphs (auto) 5.48 H, Total Counted Not Reportable 11/01/17 04:14: Sodium 149 H, Potassium 4.8, Chloride 115 H, Carbon Dioxide 21.0, Anion Gap 13, BUN 27 H, Creatinine 2.15 H, Estim Creat Clear Calc 44.07, Est GFR (MDRD) Af Amer 41 L, Est GFR (MDRD) Non-Af 34 L, BUN/Creatinine Ratio 12.6, Glucose 79, Calcium 8.3 L, Total Bilirubin 8.60 H, AST 1227 H, ALT 757 H, Alkaline Phosphatase 475 H, Total Protein 6.8, Albumin 1.4 L, Globulin 5.4 H, Albumin/Globulin Ratio 0.3 L 11/01/17 08:28: Ammonia 14.0 Current Medications Chlorhexidine Gluconate () 1 each TOPICAL DAILY MAGDA Last Admin: 10/31/17 04:51 Dose: 1 each Emollient Ointment (Eucerin Intensive Repair) 1 applic TOPICAL 4X/DAY PRN PRN; Protocol PRN Reason: Dry Skin Last Admin: 10/31/17 04:52 Dose: 1 applicatio Heparin Sodium (Beef Lung) (Heparin 500 Unit/5 Ml (100/Ml)) 500 unit IV UD PRN PRN Reason: HEPARIN FLUSH Sodium Chloride () 250 mls @ 15 mls/hr IV .[id number] PRN PRN Reason: SALINE FLUSH Dextrose () 1,000 mls @ 100 mls/hr IV .Q10H [facility] Last Admin: 11/01/17 08:43 Dose: 100 mls/hr Lactobacillus Acidophilus (Acidophilus) 2 tablet PO 4X/DAY MAGDA Last Admin: 10/31/17 21:52 Dose: 2 tablet Magnesium Hydroxide (Milk Of Magnesia) 30 ml PO DAILY PRN PRN PRN Reason: Constipation Methylprednisolone (Solu-Medrol) 40 mg IV DAILY [facility] Nutritional Formula (Lactose Free) (Ensure Enlive) 120 ml PO 4X/DAY MAGDA Last Admin: 10/31/17 21:52 Dose: 120 ml Sodium Chloride () 5 - 30 ml IV UD PRN PRN Reason: SALINE FLUSH Last Admin: 11/01/17 08:39 Dose: 20 ml Sodium Chloride () 10 - 20 ml IV UD PRN PRN Reason: PICC FLUSH Medical Necessity - Tobacco Use Smoking Status: Never smoker Assessment/Plan All Active Problems Fever with exanthematous rash (Acute) Septic shock (Acute) Coagulopathy (Acute) DAYNA (acute kidney injury) (Acute) Abscess of right thigh (Acute) Hematuria (Acute) 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 knee joint (Resolved) Atrial fibrillation with RVR (Resolved) Acute cystitis (Resolved) Severe sepsis (Resolved) 1. Septic shock due to possible left thigh abscess- resolved admitted with septic shock which has now resolved with ad inistration of IVF urine cultures and blood cultures negative. off pressors. BP now WNL wbc is 15.6. IV doxycycline and IV zosyn stopped orthopedics on board; dont think its a thigh abscess. recommend reimaging in a few days. 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 To have repeat ultrasound of the gallbladder today. Critical care on board. 3. Anemia due to acute blood loss Hb dropped to 6.6 from hematuria. s/p transfusion of 2 units of pRBC Hb today is up to 8.4 will continue to monitor 4. Supratherapeutic INR, due to worsening liver function INR today is up to 6.7 coumadin on hold. is s/p infusion of FFP's. No Active bleeding focus now. will monitor 5. DAYNA Cr trended down slightly to 2.17 today; baseline Cr is <1 discussed with nephrology, likely due to ATN continue to trend Cr and monitor nephrology on board 6. Factor V Leiden Deficiency coumadin held o/a of supratherapeutic INR will monitor DVT prophylaxis: SCDs. No anticoagulation o/a of liver derangement and elevated INR. This note was generated with [employer] dictation software. It may contain incorrect words, spelling, and punctuation that were not noted in checking the note before signing. Code Visit Inpatient E&M: 80783 Subs Hosp L3
--- NOTE | 2017-11-01 10:37 | PN_ITS ---
Patient Problems: Active and Suspected Problems Septic shock (Acute) Coagulopathy (Acute) DAYNA (acute kidney injury) (Acute) Abscess of right thigh (Acute) Hematuria (Acute) Subjective: Patient seen and examined. He is more lethargic today. He denies any fever, chills, cough, chest pain, SOB, abdominal pain, diarrhea or vomiting. LAbs and vitals reviewed. Recommendation for transfer to to [facility] offered, but patient refused transfer. Vitals/I&O's: Vital Signs Temp Pulse Resp BP Pulse Ox 98.0 F 90 12 114/73 100 11/01/17 08:00 11/01/17 08:00 11/01/17 08:00 11/01/17 08:00 11/01/17 08:00 Oxygen Flow Rate (L/min) 1 Oxygen Delivery Method Room Air Weight: 200 lb 9.93 oz Body Mass Index (BMI) 23.6 Intake and Output for Last 24 Hours 10/30/17 10/31/17 11/01/17 23:59 23:59 23:59 Intake Total 6234.6 / 6234.6 2065.4 / 2065.4 480 / 480 Output Total 1635 / 1635 1325 / 1325 575 / 575 Balance 4599.6 / 4599.6 740.4 / 740.4 -95 / -95 General: Alert, Oriented x3, Cooperative, No apparent distress HEENT: Atraumatic, PERRLA, EOMI, Normocephalic, - - jaundiced sclera Oral: Moist Mucosa Neck: Supple, No JVD, Negative Carotid Bruits Lungs: Clear to auscultation, Normal air movement, No rhonchi, No wheeze, No rales Cardiovascular: Regular rate, Regular Rhythm, Normal S1, Normal S2, No murmurs Abdomen: Bowel Sounds Present, Soft, Non Tender, Non-Distended, No Hepato- splenomegaly Extremities: No clubbing, No cyanosis, No edema, Capillary Refill Less than 3 Seconds Skin: No rashes, No breakdown Musculoskeletal: No Tenderness to Palpation of Joints or Extremities Lymphatic: No Cervical, Supraclavicular, or Inguinal Adenopathy Neurological: Cranial nerves II-XII grossly intact, Motor Exam 5/5 strength throughout Psych/Mental Status: Normal Affect, Appropriate, Alert and oriented to time, place, person, mood and affect Microbiology Past 72 Hours 10/29/17 12:30 Stool C. difficile DNA Amplification - Final 10/29/17 12:30 Stool Stool Occult Blood (SANDRA) - Final Laboratory Results 10/30/17 04:50: Diff Path Review Reviewed 10/31/17 04:50: Diff Path Review Reviewed 10/31/17 11:00: Acetaminophen 2.5 L 10/31/17 11:00: DARIELA Screen Pending, ALIVIA-1 Antibody Pending, SS-A/Ro IgG Antibody Pending, SS-B/La IgG Antibody Pending, Sm (Howe) Antibody Pending, VEGETABLE WASHING MACHINE OPERATOR Antibody Pending, Scl-70 Scleroderma Ab Pending, Double Strand DNA Ab Pending, Centromere B Antibody Pending 10/31/17 11:00: c-ANCA Antibody Pending, p-ANCA Antibody Pending 10/31/17 16:21: POC Glucose 102 10/31/17 22:45: Eos Smear Total Cells Pending 10/31/17 22:45: Miscellaneous Test Cancelled 10/31/17 22:45: U Random Total Protein 187.4 H, Urine Creatinine 61.60, Protein/ Creatinin Ratio 3042 H 11/01/17 04:14: PT 58.9 H, INR 6.7 H* 11/01/17 04:14: WBC 15.6 H, RBC 3.16 L, Hgb 8.4 L, Hct 25.4 L, MCV 80.4, MCH 26.6 L, MCHC 33.1, RDW 19.0 H, RDW Differential 56.2 H, Plt Count 104 L, MPV 10.0, Immature Gran % (Auto) 0.300, Neut % (Auto) 49.4, Lymph % (Auto) 35.2, [place] % (Auto) 7.2, Eos % (Auto) 5.3 H, Baso % (Auto) 2.6 H, Absolute Neuts (auto ) 7.7, Absolute Lymphs (auto) 5.48 H, Total Counted Not Reportable 11/01/17 04:14: Sodium 149 H, Potassium 4.8, Chloride 115 H, Carbon Dioxide 21.0 , Anion Gap 13, BUN 27 H, Creatinine 2.15 H, Estim Creat Clear Calc 44.07, Est GFR (MDRD) Af Amer 41 L, Est GFR (MDRD) Non-Af 34 L, BUN/Creatinine Ratio 12.6, Glucose 79, Calcium 8.3 L, Total Bilirubin 8.60 H, AST 1227 H, ALT 757 H, Alkaline Phosphatase 475 H, Total Protein 6.8, Albumin 1.4 L, Globulin 5.4 H, Albumin/Globulin Ratio 0.3 L 11/01/17 08:28: Ammonia 14.0 Current Medications Chlorhexidine Gluconate () 1 each TOPICAL DAILY MAGDA Last Admin: 10/31/17 04:51 Dose: 1 each Emollient Ointment (Eucerin Intensive Repair) 1 applic TOPICAL 4X/DAY PRN PRN; Protocol PRN Reason: Dry Skin Last Admin: 10/31/17 04:52 Dose: 1 applicatio Heparin Sodium (Beef Lung) (Heparin 500 Unit/5 Ml (100/Ml)) 500 unit IV UD PRN PRN Reason: HEPARIN FLUSH Sodium Chloride () 250 mls @ 15 mls/hr IV .[id number] PRN PRN Reason: SALINE FLUSH Dextrose () 1,000 mls @ 100 mls/hr IV .Q10H [facility] Last Admin: 11/01/17 08:43 Dose: 100 mls/hr Lactobacillus Acidophilus (Acidophilus) 2 tablet PO 4X/DAY MAGDA Last Admin: 10/31/17 21:52 Dose: 2 tablet Magnesium Hydroxide (Milk Of Magnesia) 30 ml PO DAILY PRN PRN PRN Reason: Constipation Methylprednisolone (Solu-Medrol) 40 mg IV DAILY [facility] Nutritional Formula (Lactose Free) (Ensure Enlive) 120 ml PO 4X/DAY MAGDA Last Admin: 10/31/17 21:52 Dose: 120 ml Sodium Chloride () 5 - 30 ml IV UD PRN PRN Reason: SALINE FLUSH Last Admin: 11/01/17 08:39 Dose: 20 ml Sodium Chloride () 10 - 20 ml IV UD PRN PRN Reason: PICC FLUSH Medical Necessity - Tobacco Use Smoking Status: Never smoker Assessment/Plan All Active Problems Fever with exanthematous rash (Acute) Septic shock (Acute) Coagulopathy (Acute) DAYNA (acute kidney injury) (Acute) Abscess of right thigh (Acute) Hematuria (Acute) 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 knee joint (Resolved) Atrial fibrillation with RVR (Resolved) Acute cystitis (Resolved) Severe sepsis (Resolved) 1. Septic shock due to possible left thigh abscess- resolved * admitted with septic shock which has now resolved with ad inistration of IVF * urine cultures and blood cultures negative. * off pressors. * BP now WNL * wbc is 15.6. * IV doxycycline and IV zosyn stopped * orthopedics on board; dont think its a thigh abscess. * recommend reimaging in a few days. 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 * To have repeat ultrasound of the gallbladder today. * Critical care on board. * 3. Anemia due to acute blood loss * Hb dropped to 6.6 from hematuria. s/p transfusion of 2 units of pRBC * Hb today is up to 8.4 * will continue to monitor * 4. Supratherapeutic INR, due to worsening liver function * INR today is up to 6.7 * coumadin on hold. is s/p infusion of FFP's. * No Active bleeding focus now. * will monitor * 5. DAYNA * Cr trended down slightly to 2.17 today; baseline Cr is <1 * discussed with nephrology, likely due to ATN * continue to trend Cr and monitor * nephrology on board * 6. Factor V Leiden Deficiency * coumadin held o/a of supratherapeutic INR * will monitor * DVT prophylaxis: SCDs. No anticoagulation o/a of liver derangement and elevated INR. This note was generated with [employer] dictation software. It may contain incorrect words, spelling, and punctuation that were not noted in checking the note before signing. Code Visit Inpatient E&M: [id number] [facility] Hosp L3
--- NOTE | 2017-11-01 12:57 | PCM.PN.ID ---
Patient Problems: Active and Suspected Problems Septic shock (Acute) Coagulopathy (Acute) DAYNA (acute kidney injury) (Acute) Abscess of right thigh (Acute) Hematuria (Acute) Subjective: Patient states of feeling better. No nausea or vomiting no abdominal pain. Morejon catheter removed earlier today. No fevers. Cardiopulmonary status appears stable Objective: Diffuse rash which appears dry. Sclera is icteric oral mucosa is moist lungs are clear heart exam S1-S2 abdomen soft no focal tenderness. Right knee appears stable - Physical Exam Vital Signs Temp Pulse Resp BP Pulse Ox 97.8 F 84 18 115/77 96 11/01/17 12:00 11/01/17 12:17 11/01/17 12:00 11/01/17 12:00 11/01/17 12:00 Oxygen Flow Rate (L/min) 1 Oxygen Delivery Method Room Air Weight: 91 kg Body Mass Index (BMI) 23.6 Intake and Output for Last 24 Hours 10/30/17 10/31/17 11/01/17 23:59 23:59 23:59 Intake Total 6234.6 / 6234.6 2065.4 / 2065.4 840 / 840 Output Total 1635 / 1635 1325 / 1325 575 / 575 Balance 4599.6 / 4599.6 740.4 / 740.4 265 / 265 Microbiology Past 72 Hours 10/29/17 12:30 C. difficile DNA Amplification - Final Stool 10/29/17 12:30 Stool Occult Blood (SANDRA) - Final Stool Laboratory Tests Past 24 Hrs 10/30/17 10/31/17 10/31/17 04:50 04:50 22:45 WBC RBC Hgb Hct MCV MCH MCHC RDW RDW Differential Plt Count MPV Immature Gran % (Auto) Neut % (Auto) Lymph % (Auto) [place] % (Auto) Eos % (Auto) Baso % (Auto) Absolute Neuts (auto) Absolute Lymphs (auto) Total Counted Diff Path Review Reviewed Reviewed Eos Smear Total Cells Pending PT INR Sodium Potassium Chloride Carbon Dioxide Anion Gap BUN Creatinine Estim Creat Clear Calc Est GFR (MDRD) Af Amer Est GFR (MDRD) Non-Af BUN/Creatinine Ratio Glucose Calcium Total Bilirubin AST ALT Alkaline Phosphatase Ammonia Total Protein Albumin Globulin Albumin/Globulin Ratio U Random Total Protein Urine Creatinine Protein/Creatinin Ratio Miscellaneous Test 09/12/0810/31/17 11/01/17 22:45 22:45 04:14 WBC RBC Hgb Hct MCV MCH MCHC RDW RDW Differential Plt Count MPV Immature Gran % (Auto) Neut % (Auto) Lymph % (Auto) [place] % (Auto) Eos % (Auto) Baso % (Auto) Absolute Neuts (auto) Absolute Lymphs (auto) Total Counted Diff Path Review Eos Smear Total Cells PT 58.9 H INR 6.7 H* Sodium Potassium Chloride Carbon Dioxide Anion Gap BUN Creatinine Estim Creat Clear Calc Est GFR (MDRD) Af Amer Est GFR (MDRD) Non-Af BUN/Creatinine Ratio Glucose Calcium Total Bilirubin AST ALT Alkaline Phosphatase Ammonia Total Protein Albumin Globulin Albumin/Globulin Ratio U Random Total Protein 187.4 H Urine Creatinine 61.60 Protein/Creatinin Ratio 3042 H Miscellaneous Test Cancelled 11/01/17 11/01/17 11/01/17 04:14 04:14 08:28 WBC 15.6 H RBC 3.16 L Hgb 8.4 L Hct 25.4 L MCV 80.4 MCH 26.6 L MCHC 33.1 RDW 19.0 H RDW Differential 56.2 H Plt Count 104 L MPV 10.0 Immature Gran % (Auto) 0.300 Neut % (Auto) 49.4 Lymph % (Auto) 35.2 [place] % (Auto) 7.2 Eos % (Auto) 5.3 H Baso % (Auto) 2.6 H Absolute Neuts (auto) 7.7 Absolute Lymphs (auto) 5.48 H Total Counted Not Reportable Diff Path Review Eos Smear Total Cells PT INR Sodium 149 H Potassium 4.8 Chloride 115 H Carbon Dioxide 21.0 Anion Gap 13 BUN 27 H Creatinine 2.15 H Estim Creat Clear Calc 44.07 Est GFR (MDRD) Af Amer 41 L Est GFR (MDRD) Non-Af 34 L BUN/Creatinine Ratio 12.6 Glucose 79 Calcium 8.3 L Total Bilirubin 8.60 H AST 1227 H ALT 757 H Alkaline Phosphatase 475 H Ammonia 14.0 Total Protein 6.8 Albumin 1.4 L Globulin 5.4 H Albumin/Globulin Ratio 0.3 L U Random Total Protein Urine Creatinine Protein/Creatinin Ratio Miscellaneous Test POC Glucose 10/31/17 16:21 POC Glucose 102 Medical Necessity - Tobacco Use Smoking Status: Never smoker Route of nutrition/ use of supplements: [] Nutritional Intake: [] IV Site: [] Morejon Catheter: [] - Assessment/Plan Diffuse rash with multiorgan system failure, clinically improving. Currently on 40 mg of Solu-Medrol daily. I agreed to hold off on antimicrobial therapy.
[2017-11-02] VITALS (11 sets, daily range): BP systolic 105–119; BP diastolic 62–72; PULSE 69–98; RESP 16–18; TEMP 36.4–36.7; O2SAT 92–98
[2017-11-02] MEDS: 0.9% NaCl Peripheral Flush Adult/Peds IV ×2 (05:51→08:36)
[2017-11-02 06:20] LABS: Prothrombin Time (Protime)PT. 78.3 SECONDS (11.7-14.9)
[2017-11-02 06:31] LABS: ALB/GLOB Ratio 0.3 RATIO (0.9-2.4); AST(SGOT) 566 U/L (15-37); Alanine Aminotransfer ALT/SGPT 585 U/L (16-61); Albumin, Serum 1.4 g/dL (3.2-5.0); Alkaline Phosphatase 467 U/L (45-117); Anion Gap 10 (5-15); BUN 23 mg/dL (7-18); BUN/Creat Ratio 12.3 RATIO (10-20); Calcium,Total 8.3 mg/dL (8.5-10.1); Chloride 112 mmol/L (98-107); Creatinine, Serum 1.87 mg/dL (0.70-1.30); EST Glomerular Filtration Rate 40 mL/min (>60); Est Glom Filt Rate - Afr Amer 48 mL/min (>60); Estimated Creatinine Clearance 50.67 ml/min; Globulin 5.5 g/dL (2.2-4.2); Glucose 115 mg/dL (74-106); Potassium 4.1 mmol/L (3.5-5.1); Protein, Total 6.9 g/dL (6.4-8.2); Sodium Level 146 mmol/L (136-145)
[2017-11-02 06:33] LABS: International Normalized Ratio 9.6
[2017-11-02 06:49] LABS: Absolute Lymphocyte Count 5.51 X10^3/ul (0.83-4.51); Basophil# 0.31 X10^3/uL; Basophil% 2.1 % (0-1); Eosinophil# 0.65 X10^3/uL; Eosinophils% 4.4 % (0-5); Hematocrit 22.2 % (40-54); Hemoglobin 7.2 g/dl (13.0-16.5); Lymphocyte # 5.51 X10^3/ul (4.0); Lymphocyte % 37.3 % (19-41); Mean Corp Hgb Conc 32.4 g/gl (32-36); Mean Corpuscular Hgb 26.1 pg (27.0-32.0); Mean Corpuscular Volume 80.4 fL (80-94); Mean Platelet Vol. 10.8 fl (6.2-12.0); Monocyte# 1.28 X10^3/uL; Monocyte% 8.7 % (0-10); Neutrophil % 47.2 % (47-70); Platelet Count 134 K/mm3 (150-450); RBC Distribution Width CV 19.5 % (11.6-14.6); RBC Distribution Width SD 57.2 fl (35.1-43.9); Red Blood Count 2.76 M/mm3 (4.6-6.2); White Blood Count 14.8 K/mm3 (4.4-11.0)
[2017-11-02 06:53] LABS: Differential Indicated SCAN CRITERIA MET; POSITIVE COUNT NO; POSITIVE DIFFERENTIAL YES; POSITIVE MORPHOLOGY YES
--- NOTE | 2017-11-02 07:12 | PN.ORTHO_ITS ---
Patient Problems: Active and Suspected Problems Septic shock (Acute) Coagulopathy (Acute) DAYNA (acute kidney injury) (Acute) Abscess of right thigh (Acute) Hematuria (Acute) Subjective: Pt reports some pain in right hip and low back. Denies pain in thigh or knee. - Physical Exam General: Alert, Oriented x3, No apparent distress Extremities: Tenderness - low back ROM right knee -8-95 without pain Skin: Incision - stable Musculoskeletal: No Tenderness to Palpation of Joints or Extremities Vital Signs Temp Pulse Resp BP Pulse Ox 97.9 F 69 16 109/62 92 11/02/17 03:24 11/02/17 03:24 11/02/17 03:24 11/02/17 03:24 11/02/17 03:24 Oxygen Flow Rate (L/min) 1 Oxygen Delivery Method Room Air Weight: 200 lb 9.93 oz Body Mass Index (BMI) 23.6 Intake and Output for Last 24 Hours 10/31/17 11/01/17 11/02/17 23:59 23:59 23:59 Intake Total 2065.4 / 2065.4 2751 / 2751 512 / 512 Output Total 1325 / 1325 1125 / 1125 350 / 350 Balance 740.4 / 740.4 1626 / 1626 162 / 162 Laboratory Tests Past 24 Hrs 10/31/17 11/01/17 11/02/17 22:45 08:28 05:40 WBC 14.8 H RBC 2.76 L Hgb 7.2 L Hct 22.2 L MCV 80.4 MCH 26.1 L MCHC 32.4 RDW 19.5 H RDW Differential 57.2 H Plt Count 134 L MPV 10.8 Immature Gran % (Auto) 0.300 Neut % (Auto) 47.2 Lymph % (Auto) 37.3 [place] % (Auto) 8.7 Eos % (Auto) 4.4 Baso % (Auto) 2.1 H Absolute Neuts (auto) 7.0 Absolute Lymphs (auto) 5.51 H Total Counted Pending PT INR Sodium Potassium Chloride Carbon Dioxide Anion Gap BUN Creatinine Estim Creat Clear Calc Est GFR (MDRD) Af Amer Est GFR (MDRD) Non-Af BUN/Creatinine Ratio Glucose Calcium Total Bilirubin AST ALT Alkaline Phosphatase Ammonia 14.0 Total Protein Albumin Globulin Albumin/Globulin Ratio Miscellaneous Test Cancelled 11/02/17 11/02/17 05:40 05:40 WBC RBC Hgb Hct MCV MCH MCHC RDW RDW Differential Plt Count MPV Immature Gran % (Auto) Neut % (Auto) Lymph % (Auto) [place] % (Auto) Eos % (Auto) Baso % (Auto) Absolute Neuts (auto) Absolute Lymphs (auto) Total Counted PT 78.3 H INR 9.6 H* Sodium 146 H Potassium 4.1 Chloride 112 H Carbon Dioxide 24.0 Anion Gap 10 BUN 23 H Creatinine 1.87 H Estim Creat Clear Calc 50.67 Est GFR (MDRD) Af Amer 48 L Est GFR (MDRD) Non-Af 40 L BUN/Creatinine Ratio 12.3 Glucose 115 H Calcium 8.3 L Total Bilirubin 9.50 H AST 566 H ALT 585 H Alkaline Phosphatase 467 H Ammonia Total Protein 6.9 Albumin 1.4 L Globulin 5.5 H Albumin/Globulin Ratio 0.3 L Miscellaneous Test Medical Necessity - Tobacco Use Smoking Status: Never smoker Assessment/Plan All Active Problems Fever with exanthematous rash (Acute) Septic shock (Acute) Coagulopathy (Acute) DAYNA (acute kidney injury) (Acute) Abscess of right thigh (Acute) Hematuria (Acute) 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 knee joint (Resolved) Atrial fibrillation with RVR (Resolved) Acute cystitis (Resolved) Severe sepsis (Resolved) Sepsis Rash Leukocytosis Hypernatremia Coagulopathy No surgical intervention warranted at this time. Consider updated CT of RLE to compare to one done on admission.
--- NOTE | 2017-11-02 07:31 | PCM.PROGNOTE ---
Patient Problems: Active and Suspected Problems Septic shock (Acute) Coagulopathy (Acute) DAYNA (acute kidney injury) (Acute) Abscess of right thigh (Acute) Hematuria (Acute) Subjective: The patient was seen and examined at the bedside this morning. Events from the last 24 hours have been reviewed. The patient is currently afebrile, hemodynamically stable and maintaining appropriate oxygen saturations on room air. Leukocytosis with peripheral eosinophilia is improved. The patient remains coagulopathic with an INR of 9.6. Hemoglobin is down this morning 7.2 g/dL. Creatinine continues to improve and urine output remains appropriate. Patient is without any significant complaints. Objective: The patient's most recent lab work, culture data and imaging studies have all been personally reviewed. Infectious workup remains negative to date. Repeat gallbladder ultrasound completed on November 01 revealed a thickened gallbladder wall with a small amount of pericholecystic fluid and mild hepatomegaly with a mild degree of fatty infiltration of the liver. - Physical Exam General: Alert, Cooperative, No apparent distress HEENT: Atraumatic, PERRLA, Normocephalic, - - Jaundiced sclera Oral: No Gingival or Mucosal Lesions/ Ulcerations Neck: Supple, No Nodes, Trachea Midline Lungs: Normal air movement, No rhonchi, No wheeze, No rales Cardiovascular: Regular rate, Regular Rhythm, Normal S1, Normal S2, No murmurs Abdomen: Bowel Sounds Present, Soft, Non Tender Extremities: No clubbing, No cyanosis, Edema Skin: - - The previously noted rash continues to improve Musculoskeletal: No Tenderness to Palpation of Joints or Extremities Lymphatic: No Cervical, Supraclavicular, or Inguinal Adenopathy Neurological: Neuro grossly intact Psych/Mental Status: Alert and oriented to time, place, person, mood and affect Vital Signs Temp Pulse Resp BP Pulse Ox 97.9 F 69 16 109/62 92 11/02/17 03:24 11/02/17 03:24 11/02/17 03:24 11/02/17 03:24 11/02/17 03:24 Oxygen Flow Rate (L/min) 1 Oxygen Delivery Method Room Air Weight: 200 lb 9.93 oz Body Mass Index (BMI) 23.6 Intake and Output for Last 24 Hours 10/31/17 11/01/17 11/02/17 23:59 23:59 23:59 Intake Total 2065.4 / 2065.4 2751 / 2751 512 / 512 Output Total 1325 / 1325 1125 / 1125 350 / 350 Balance 740.4 / 740.4 1626 / 1626 162 / 162 Laboratory Tests Past 24 Hrs 10/31/17 11/01/17 11/02/17 22:45 08:28 05:40 WBC 14.8 H RBC 2.76 L Hgb 7.2 L Hct 22.2 L MCV 80.4 MCH 26.1 L MCHC 32.4 RDW 19.5 H RDW Differential 57.2 H Plt Count 134 L MPV 10.8 Immature Gran % (Auto) 0.300 Neut % (Auto) 47.2 Lymph % (Auto) 37.3 [place] % (Auto) 8.7 Eos % (Auto) 4.4 Baso % (Auto) 2.1 H Absolute Neuts (auto) 7.0 Absolute Lymphs (auto) 5.51 H Total Counted Not Reportable PT INR Sodium Potassium Chloride Carbon Dioxide Anion Gap BUN Creatinine Estim Creat Clear Calc Est GFR (MDRD) Af Amer Est GFR (MDRD) Non-Af BUN/Creatinine Ratio Glucose Calcium Total Bilirubin AST ALT Alkaline Phosphatase Ammonia 14.0 Total Protein Albumin Globulin Albumin/Globulin Ratio Miscellaneous Test Cancelled 11/02/17 11/02/17 05:40 05:40 WBC RBC Hgb Hct MCV MCH MCHC RDW RDW Differential Plt Count MPV Immature Gran % (Auto) Neut % (Auto) Lymph % (Auto) [place] % (Auto) Eos % (Auto) Baso % (Auto) Absolute Neuts (auto) Absolute Lymphs (auto) Total Counted PT 78.3 H INR 9.6 H* Sodium 146 H Potassium 4.1 Chloride 112 H Carbon Dioxide 24.0 Anion Gap 10 BUN 23 H Creatinine 1.87 H Estim Creat Clear Calc 50.67 Est GFR (MDRD) Af Amer 48 L Est GFR (MDRD) Non-Af 40 L BUN/Creatinine Ratio 12.3 Glucose 115 H Calcium 8.3 L Total Bilirubin 9.50 H AST 566 H ALT 585 H Alkaline Phosphatase 467 H Ammonia Total Protein 6.9 Albumin 1.4 L Globulin 5.5 H Albumin/Globulin Ratio 0.3 L Miscellaneous Test Clinical Impression(s) from Imaging Studies Chest X-Ray 10/28/17 19:51 IMPRESSION: Decreased inspiratory effort with bibasilar atelectasis. The study is otherwise unchanged. Electronically Signed: Frantz ChaiDO at 20:07 EDT Tel [phone], Service support , Lower Extremity CT 10/28/17 19:52 IMPRESSION: 1. Right total knee arthroplasty. 2. Abscess which appears to involve the suprapatellar space and extends outward along the vastus medialis musculature. There is associated periosteal reaction on the femur without evidence of fracture or cortical disruption. Electronically Signed: Frantz Paula DO at 21:26 EDT Tel [phone], Service support , Gallbladder Ultrasound 10/28/17 20:42 IMPRESSION: 1. Mild hepatomegaly. This appears unchanged from prior study. 2. No evidence for gallbladder and biliary ductal abnormality. 3. Stable column of Hector within the right kidney. Electronically Signed: Frantz Paula DO at 21:32 EDT Tel [phone], Service support , Gallbladder Ultrasound 11/01/17 07:11 IMPRESSION: Thickened gallbladder wall with a small amount of pericholecystic fluid. Mild hepatomegaly and mild degree of fatty infiltration of the liver. Minimal amount of perihepatic fluid. Tiny right pleural effusion. Electronically Signed: Froylan Sims MD at 12:34 EDT Tel [phone], Service support , Medical Necessity - Tobacco Use Smoking Status: Never smoker Assessment/Plan All Active Problems Fever with exanthematous rash (Acute) Septic shock (Acute) Coagulopathy (Acute) DAYNA (acute kidney injury) (Acute) Abscess of right thigh (Acute) Hematuria (Acute) 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 knee joint (Resolved) Atrial fibrillation with RVR (Resolved) Acute cystitis (Resolved) Severe sepsis (Resolved) RECOMMENDATIONS: 1. Okay from my perspective to transition from IV steroids to prednisone 40 mg daily by mouth. 2. Give 5 mg of p.o. vitamin K given INR greater than 9 today. 3. Continue gentle IV fluid hydration with D5W given elevated sodium and chloride. 4. Monitor CBC daily and transfuse if hemoglobin drops below 7 g/dL. 5. Encourage incentive spirometer use and mobilize patient as tolerated. 6. Consider surgery evaluation given climbing bilirubin and negative gallbladder ultrasound. IMPRESSIONS: 1. Septic shock versus systemic drug reaction with multisystem involvement The patient was on treatment with IV antibiotics on an outpatient basis due to a right thigh abscess. However, culture data has been negative to date. The patient had been treated with vancomycin, Zyvox and doxycycline and reportedly developed a drug reaction to both vancomycin and Zyvox. The patient was transiently on vasopressor support. His antibiotics were transitioned to Zosyn and doxycycline on admission to the hospital. However, the patient had evidence of a desquamating rash concerning for a possible hypersensitivity reaction like DRESS vs SJS/TEN. Although he has stabilized from a hemodynamic perspective, the patient continued to have significant peripheral eosinophilia and worsening hepatitis and renal insufficiency. At this time, given the lack of culture data, his antibiotics were discontinued and the patient was placed on IV steroids. He is improving clinically, with the exception of worsening hyperbilirubinemia. A repeat gallbladder ultrasound was completed yesterday and revealed a thickened gallbladder wall with a small amount of pericholecystic fluid. 2. Acute hepatitis Unclear etiology at this time. Although the patient did have impaired hemodynamics, would anticipate plateau in transaminases if this is related to shock liver. Other potential etiologies include systemic involvement from a potential drug reaction. At this time, we will continue to monitor and provide supportive care. Recommend discontinuation of acetaminophen. Prior gallbladder ultrasound was unremarkable. However, given the patient's rising bilirubin level, a repeat right upper quadrant ultrasound was repeated. 3. Acute kidney injury Possibly related to ischemic ATN from prior hypotension. Alternatively, given the patient's significant eosinophilia, acute interstitial nephritis is a possibility. The patient's creatinine has improved with stabilization of hemodynamics. Urine output is appropriate. No indication for renal replacement therapy. 4. Factor V Leiden with history of PE/DVT with supratherapeutic INR On Coumadin therapy at baseline. Supratherapeutic INR on presentation likely secondary to ongoing sepsis, antibiotics and fever. Continue to monitor INR daily. There is no evidence of active bleeding at this time. Systemic anticoagulation will need to be initiated, once the patient's INR becomes subtherapeutic. Anticipate continued derangements in coagulation, given the patient's underlying hepatic dysfunction. 5. Acute blood loss anemia secondary to hematuria The patient received 2 units of packed red blood cells with appropriate incrementation in hemoglobin level. Hematuria appears to have resolved at this time. However, there continues to be issues with the patient's [place]. Urology is following. This note was generated with [employer] dictation software. It may contain incorrect words, spelling, and punctuation that were not noted in checking the note before signing. Code Visit Inpatient E&M: 16064 Subs Hosp L2
--- NOTE | 2017-11-02 07:35 | PN_ITS ---
Patient Problems: Active and Suspected Problems Septic shock (Acute) Coagulopathy (Acute) DAYNA (acute kidney injury) (Acute) Abscess of right thigh (Acute) Hematuria (Acute) Subjective: The patient was seen and examined at the bedside this morning. Events from the last 24 hours have been reviewed. The patient is currently afebrile, hemodynamically stable and maintaining appropriate oxygen saturations on room air. Leukocytosis with peripheral eosinophilia is improved. The patient remains coagulopathic with an INR of 9.6. Hemoglobin is down this morning 7.2 g /dL. Creatinine continues to improve and urine output remains appropriate. Patient is without any significant complaints. Objective: The patient's most recent lab work, culture data and imaging studies have all been personally reviewed. Infectious workup remains negative to date. Repeat gallbladder ultrasound completed on November 01 revealed a thickened gallbladder wall with a small amount of pericholecystic fluid and mild hepatomegaly with a mild degree of fatty infiltration of the liver. - Physical Exam General: Alert, Cooperative, No apparent distress HEENT: Atraumatic, PERRLA, Normocephalic, - - Jaundiced sclera Oral: No Gingival or Mucosal Lesions/ Ulcerations Neck: Supple, No Nodes, Trachea Midline Lungs: Normal air movement, No rhonchi, No wheeze, No rales Cardiovascular: Regular rate, Regular Rhythm, Normal S1, Normal S2, No murmurs Abdomen: Bowel Sounds Present, Soft, Non Tender Extremities: No clubbing, No cyanosis, Edema Skin: - - The previously noted rash continues to improve Musculoskeletal: No Tenderness to Palpation of Joints or Extremities Lymphatic: No Cervical, Supraclavicular, or Inguinal Adenopathy Neurological: Neuro grossly intact Psych/Mental Status: Alert and oriented to time, place, person, mood and affect Vital Signs Temp Pulse Resp BP Pulse Ox 97.9 F 69 16 109/62 92 11/02/17 03:24 11/02/17 03:24 11/02/17 03:24 11/02/17 03:24 11/02/17 03:24 Oxygen Flow Rate (L/min) 1 Oxygen Delivery Method Room Air Weight: 200 lb 9.93 oz Body Mass Index (BMI) 23.6 Intake and Output for Last 24 Hours 10/31/17 11/01/17 11/02/17 23:59 23:59 23:59 Intake Total 2065.4 / 2065.4 2751 / 2751 512 / 512 Output Total 1325 / 1325 1125 / 1125 350 / 350 Balance 740.4 / 740.4 1626 / 1626 162 / 162 Laboratory Tests Past 24 Hrs 10/31/17 11/01/17 11/02/17 22:45 08:28 05:40 WBC 14.8 H RBC 2.76 L Hgb 7.2 L Hct 22.2 L MCV 80.4 MCH 26.1 L MCHC 32.4 RDW 19.5 H RDW Differential 57.2 H Plt Count 134 L MPV 10.8 Immature Gran % (Auto) 0.300 Neut % (Auto) 47.2 Lymph % (Auto) 37.3 [place] % (Auto) 8.7 Eos % (Auto) 4.4 Baso % (Auto) 2.1 H Absolute Neuts (auto) 7.0 Absolute Lymphs (auto) 5.51 H Total Counted Not Reportable PT INR Sodium Potassium Chloride Carbon Dioxide Anion Gap BUN Creatinine Estim Creat Clear Calc Est GFR (MDRD) Af Amer Est GFR (MDRD) Non-Af BUN/Creatinine Ratio Glucose Calcium Total Bilirubin AST ALT Alkaline Phosphatase Ammonia 14.0 Total Protein Albumin Globulin Albumin/Globulin Ratio Miscellaneous Test Cancelled 11/02/17 11/02/17 05:40 05:40 WBC RBC Hgb Hct MCV MCH MCHC RDW RDW Differential Plt Count MPV Immature Gran % (Auto) Neut % (Auto) Lymph % (Auto) [place] % (Auto) Eos % (Auto) Baso % (Auto) Absolute Neuts (auto) Absolute Lymphs (auto) Total Counted PT 78.3 H INR 9.6 H* Sodium 146 H Potassium 4.1 Chloride 112 H Carbon Dioxide 24.0 Anion Gap 10 BUN 23 H Creatinine 1.87 H Estim Creat Clear Calc 50.67 Est GFR (MDRD) Af Amer 48 L Est GFR (MDRD) Non-Af 40 L BUN/Creatinine Ratio 12.3 Glucose 115 H Calcium 8.3 L Total Bilirubin 9.50 H AST 566 H ALT 585 H Alkaline Phosphatase 467 H Ammonia Total Protein 6.9 Albumin 1.4 L Globulin 5.5 H Albumin/Globulin Ratio 0.3 L Miscellaneous Test Clinical Impression(s) from Imaging Studies Chest X-Ray 10/28/17 19:51 IMPRESSION: Decreased inspiratory effort with bibasilar atelectasis. The study is otherwise unchanged. Electronically Signed: Frantz ChaiDO at 20:07 EDT Tel [phone], Service support , Lower Extremity CT 10/28/17 19:52 IMPRESSION: 1. Right total knee arthroplasty. 2. Abscess which appears to involve the suprapatellar space and extends outward along the vastus medialis musculature. There is associated periosteal reaction on the femur without evidence of fracture or cortical disruption. Electronically Signed: Frantz Paula DO at 21:26 EDT Tel [phone], Service support , Gallbladder Ultrasound 10/28/17 20:42 IMPRESSION: 1. Mild hepatomegaly. This appears unchanged from prior study. 2. No evidence for gallbladder and biliary ductal abnormality. 3. Stable column of [place]ector within the right kidney. Electronically Signed: Frantz Paula DO at 21:32 EDT Tel [phone], Service support , Gallbladder Ultrasound 11/01/17 07:11 IMPRESSION: Thickened gallbladder wall with a small amount of pericholecystic fluid. Mild hepatomegaly and mild degree of fatty infiltration of the liver. Minimal amount of perihepatic fluid. Tiny right pleural effusion. Electronically Signed: Froylan Sims MD at 12:34 EDT Tel [phone], Service support , Medical Necessity - Tobacco Use Smoking Status: Never smoker Assessment/Plan All Active Problems Fever with exanthematous rash (Acute) Septic shock (Acute) Coagulopathy (Acute) DAYNA (acute kidney injury) (Acute) Abscess of right thigh (Acute) Hematuria (Acute) 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 knee joint (Resolved) Atrial fibrillation with RVR (Resolved) Acute cystitis (Resolved) Severe sepsis (Resolved) RECOMMENDATIONS: 1. Okay from my perspective to transition from IV steroids to prednisone 40 mg daily by mouth. 2. Give 5 mg of p.o. vitamin K given INR greater than 9 today. 3. Continue gentle IV fluid hydration with D5W given elevated sodium and chloride. 4. Monitor CBC daily and transfuse if hemoglobin drops below 7 g/dL. 5. Encourage incentive spirometer use and mobilize patient as tolerated. 6. Consider surgery evaluation given climbing bilirubin and negative gallbladder ultrasound. IMPRESSIONS: 1. Septic shock versus systemic drug reaction with multisystem involvement The patient was on treatment with IV antibiotics on an outpatient basis due to a right thigh abscess. However, culture data has been negative to date. The patient had been treated with vancomycin, Zyvox and doxycycline and reportedly developed a drug reaction to both vancomycin and Zyvox. The patient was transiently on vasopressor support. His antibiotics were transitioned to Zosyn and doxycycline on admission to the hospital. However, the patient had evidence of a desquamating rash concerning for a possible hypersensitivity reaction like DRESS vs SJS/TEN. Although he has stabilized from a hemodynamic perspective, the patient continued to have significant peripheral eosinophilia and worsening hepatitis and renal insufficiency. At this time, given the lack of culture data, his antibiotics were discontinued and the patient was placed on IV steroids. He is improving clinically, with the exception of worsening hyperbilirubinemia. A repeat gallbladder ultrasound was completed yesterday and revealed a thickened gallbladder wall with a small amount of pericholecystic fluid. 2. Acute hepatitis Unclear etiology at this time. Although the patient did have impaired hemodynamics, would anticipate plateau in transaminases if this is related to shock liver. Other potential etiologies include systemic involvement from a potential drug reaction. At this time, we will continue to monitor and provide supportive care. Recommend discontinuation of acetaminophen. Prior gallbladder ultrasound was unremarkable. However, given the patient's rising bilirubin level, a repeat right upper quadrant ultrasound was repeated. 3. Acute kidney injury Possibly related to ischemic ATN from prior hypotension. Alternatively, given the patient's significant eosinophilia, acute interstitial nephritis is a possibility. The patient's creatinine has improved with stabilization of hemodynamics. Urine output is appropriate. No indication for renal replacement therapy. 4. Factor V Leiden with history of PE/DVT with supratherapeutic INR On Coumadin therapy at baseline. Supratherapeutic INR on presentation likely secondary to ongoing sepsis, antibiotics and fever. Continue to monitor INR daily. There is no evidence of active bleeding at this time. Systemic anticoagulation will need to be initiated, once the patient's INR becomes subtherapeutic. Anticipate continued derangements in coagulation, given the patient's underlying hepatic dysfunction. 5. Acute blood loss anemia secondary to hematuria The patient received 2 units of packed red blood cells with appropriate incrementation in hemoglobin level. Hematuria appears to have resolved at this time. However, there continues to be issues with the patient's [place]. Urology is following. This note was generated with [employer] dictation software. It may contain incorrect words, spelling, and punctuation that were not noted in checking the note before signing. Code Visit Inpatient E&M: 74310 Subs Hosp L2
[2017-11-02] MEDS: Phytonadione (Vit K) 10 MG/ML Ampul 5 MG PO (08:35)
--- NOTE | 2017-11-02 10:08 | CASEMGMT ---
According to [employer] website, the following are in-network tertiary facilities: [facility], [facility], [facility], [facility], [facility], [facility], [facility], [facility] and . Shanell GREGORIO CM
--- NOTE | 2017-11-02 10:21 | PCM.PN.HOSP ---
Patient Problems: Active and Suspected Problems Septic shock (Acute) Coagulopathy (Acute) DAYNA (acute kidney injury) (Acute) Abscess of right thigh (Acute) Hematuria (Acute) Subjective: Patient seen and examined. He has no complaints and feels well. He denies any fever or chills, any cough or chest pain, shortness of breath, any abdominal pain, any nausea vomiting or diarrhea. 12 point review of systems otherwise negative. Labs and vitals reviewed. Of note, patient's bilirubin still trending up so that the liver enzymes are trending down. Kidney function is also improving. Vitals/I&O's: Vital Signs Temp Pulse Resp BP Pulse Ox 98.1 F 70 16 111/72 96 11/02/17 09:00 11/02/17 09:00 11/02/17 09:00 11/02/17 09:00 11/02/17 09:00 Oxygen Flow Rate (L/min) 1 Oxygen Delivery Method Room Air Weight: 201 lb 4.513 oz Body Mass Index (BMI) 23.6 Intake and Output for Last 24 Hours 10/31/17 11/01/17 11/02/17 23:59 23:59 23:59 Intake Total 2065.4 / 2065.4 2751 / 2751 512 / 512 Output Total 1325 / 1325 1125 / 1125 350 / 350 Balance 740.4 / 740.4 1626 / 1626 162 / 162 General: Alert, Oriented x3, Cooperative, No apparent distress HEENT: Atraumatic, PERRLA, EOMI, Normocephalic, - - jaundiced sclera Oral: Moist Mucosa Neck: Supple, No JVD, Negative Carotid Bruits Lungs: Clear to auscultation, Normal air movement, No rhonchi, No wheeze, No rales Cardiovascular: Regular rate, Regular Rhythm, Normal S1, Normal S2, No murmurs Abdomen: Bowel Sounds Present, Soft, Non Tender, Non-Distended, No Hepato-splenomegaly Extremities: No clubbing, No cyanosis, No edema, Capillary Refill Less than 3 Seconds Skin: - - jaundiced skin. Has desquamating rash over face, head and neck. Musculoskeletal: No Tenderness to Palpation of Joints or Extremities Lymphatic: No Cervical, Supraclavicular, or Inguinal Adenopathy Neurological: Cranial nerves II-XII grossly intact, Motor Exam 5/5 strength throughout Psych/Mental Status: Normal Affect, Appropriate, Alert and oriented to time, place, person, mood and affect Laboratory Results 11/02/17 05:40: WBC 14.8 H, RBC 2.76 L, Hgb 7.2 L, Hct 22.2 L, MCV 80.4, MCH 26.1 L, MCHC 32.4, RDW 19.5 H, RDW Differential 57.2 H, Plt Count 134 L, MPV 10.8, Immature Gran % (Auto) 0.300, Neut % (Auto) 47.2, Lymph % (Auto) 37.3, [place] % (Auto) 8.7, Eos % (Auto) 4.4, Baso % (Auto) 2.1 H, Absolute Neuts (auto) 7.0, Absolute Lymphs (auto) 5.51 H, Total Counted Not Reportable 11/02/17 05:40: Sodium 146 H, Potassium 4.1, Chloride 112 H, Carbon Dioxide 24.0, Anion Gap 10, BUN 23 H, Creatinine 1.87 H, Estim Creat Clear Calc 50.67, Est GFR (MDRD) Af Amer 48 L, Est GFR (MDRD) Non-Af 40 L, BUN/Creatinine Ratio 12.3, Glucose 115 H, Calcium 8.3 L, Total Bilirubin 9.50 H, AST 566 H, ALT 585 H, Alkaline Phosphatase 467 H, Total Protein 6.9, Albumin 1.4 L, Globulin 5.5 H, Albumin/Globulin Ratio 0.3 L 11/02/17 05:40: PT 78.3 H, INR 9.6 H* Diagnostic Data Chest X-Ray 10/28/17 19:51 IMPRESSION: Decreased inspiratory effort with bibasilar atelectasis. The study is otherwise unchanged. Electronically Signed: Frantz Paula DO at 20:07 EDT Tel [phone], Service support , Lower Extremity CT 10/28/17 19:52 IMPRESSION: 1. Right total knee arthroplasty. 2. Abscess which appears to involve the suprapatellar space and extends outward along the vastus medialis musculature. There is associated periosteal reaction on the femur without evidence of fracture or cortical disruption. Electronically Signed: Frantz Paula DO at 21:26 EDT Tel [phone], Service support , Gallbladder Ultrasound 11/01/17 07:11 IMPRESSION: Thickened gallbladder wall with a small amount of pericholecystic fluid. Mild hepatomegaly and mild degree of fatty infiltration of the liver. Minimal amount of perihepatic fluid. Tiny right pleural effusion. Electronically Signed: Froylan Sims MD at 12:34 EDT Tel [phone], Service support , Current Medications Emollient Ointment (Eucerin Intensive Repair) 1 applic TOPICAL 4X/DAY PRN PRN; Protocol PRN Reason: Dry Skin Last Admin: 10/31/17 04:52 Dose: 1 applicatio Heparin Sodium (Beef Lung) (Heparin 500 Unit/5 Ml (100/Ml)) 500 unit IV UD PRN PRN Reason: HEPARIN FLUSH Sodium Chloride () 250 mls @ 15 mls/hr IV .[id number] PRN PRN Reason: SALINE FLUSH Dextrose () 1,000 mls @ 100 mls/hr IV .[facility] Last Admin: 11/02/17 10:12 Dose: 100 mls/hr Lactobacillus Acidophilus (Acidophilus) 2 tablet PO 4X/DAY MAGDA Last Admin: 11/02/17 08:36 Dose: 2 tablet Magnesium Hydroxide (Milk Of Magnesia) 30 ml PO DAILY PRN PRN PRN Reason: Constipation Methylprednisolone (Solu-Medrol) 40 mg IV DAILY MAGDA Last Admin: 11/02/17 09:04 Dose: 40 mg Nutritional Formula (Lactose Free) (Ensure Enlive) 120 ml PO 4X/DAY MAGDA Last Admin: 11/02/17 09:04 Dose: 120 ml Sodium Chloride () 5 - 30 ml IV UD PRN PRN Reason: SALINE FLUSH Last Admin: 11/02/17 08:36 Dose: 10 ml Sodium Chloride () 10 - 20 ml IV UD PRN PRN Reason: PICC FLUSH Medical Necessity - Tobacco Use Smoking Status: Never smoker Assessment/Plan All Active Problems Fever with exanthematous rash (Acute) Septic shock (Acute) Coagulopathy (Acute) DAYNA (acute kidney injury) (Acute) Abscess of right thigh (Acute) Hematuria (Acute) 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 knee joint (Resolved) Atrial fibrillation with RVR (Resolved) Acute cystitis (Resolved) Severe sepsis (Resolved) 1. Septic shock due to possible left thigh abscess- resolved now off antibiotics as there was no microbiologic evidence of infection Orthopedics on board-didnt think there was any evidence of an abscess and recommended conservative management o 2. 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 repeat RUQ USG showed fatty liver infiltration, measuring 18.5cm. Aldactone within normal limits and there is no demonstrated mass lesion. Gallbladder showed normal distended gallbladder with thickened gallbladder wall measuring about 4.9 mm. Negative sonographic Harper sign and there is a small amount of pericholecystic fluid. There are no gallstones. At this point, patient still prefers to stay [facility] and does want to be transferred. We will continue trending liver enzymes and bilirubin. If bilirubin trends up tomorrow, will discuss with patient about the need for experience GI assessment as we do not have a GI service here, so he is transferred continue IV solumedrol 40mg daily; to transition to oral steroids tomorrow will get general surgery to evaluate him due to thickened gallbladder and pericholecystic fluid. 3. Anemia due to acute blood loss Stable. Hemoglobin is 7.2 today. We will continue to monitor. Hematuria has not recurred. He status post transfusion of 2 units of packed red blood cells. will transfuse if Hb falls <7 4. Supratherapeutic INR, due to worsening liver function INR today has trended up to 9.6 coumadin on hold. Given oral vitamin K coumadin on hold. No Active bleeding focus now. will monitor 5. DAYNA Cr trended down to 1.87. likely due to ATN will monitor for further improvement 6. Factor V Leiden Deficiency coumadin held o/a of supratherapeutic INR will monitor 7. Thrombocytopenia platelets down to 134 today; was normal on admission will continue to monitor. 8. Hypernatremia: Na down to 146; was 149 yesterday. Will continue to trend and monitor DVT prophylaxis: SCDs. No anticoagulation o/a of liver derangement and elevated INR. This note was generated with [employer] dictation software. It may contain incorrect words, spelling, and punctuation that were not noted in checking the note before signing. Code Visit Inpatient E&M: 18450 Subs Hosp L3
--- NOTE | 2017-11-02 10:36 | PCM.PN.REN ---
Patient Problems: Active and Suspected Problems Septic shock (Acute) Coagulopathy (Acute) DAYNA (acute kidney injury) (Acute) Abscess of right thigh (Acute) Hematuria (Acute) Subjective: Doing okay. No nausea No vomiting. No SOB. No CP - Physical Exam General: Alert, Oriented x3 HEENT: Atraumatic Oral: Moist Mucosa Neck: Supple, No JVD Lungs: Clear to auscultation, No wheeze, No rales Cardiovascular: Regular rate, Regular Rhythm, Normal S1, Normal S2 Abdomen: Bowel Sounds Present, Soft, Non Tender Extremities: Edema Musculoskeletal: No Tenderness to Palpation of Joints or Extremities Lymphatic: No Cervical, Supraclavicular, or Inguinal Adenopathy Neurological: Cranial nerves II-XII grossly intact Psych/Mental Status: Normal Affect Vital Signs Temp Pulse Resp BP Pulse Ox 98.1 F 70 16 111/72 96 11/02/17 09:00 11/02/17 09:00 11/02/17 09:00 11/02/17 09:00 11/02/17 09:00 Oxygen Flow Rate (L/min) 1 Oxygen Delivery Method Room Air Weight: 91.3 kg Body Mass Index (BMI) 23.6 Intake and Output for Last 24 Hours 10/31/17 11/01/17 11/02/17 23:59 23:59 23:59 Intake Total 2065.4 / 2065.4 2751 / 2751 512 / 512 Output Total 1325 / 1325 1125 / 1125 350 / 350 Balance 740.4 / 740.4 1626 / 1626 162 / 162 Laboratory Tests Past 24 Hrs 11/02/17 11/02/17 11/02/17 05:40 05:40 05:40 WBC 14.8 H RBC 2.76 L Hgb 7.2 L Hct 22.2 L MCV 80.4 MCH 26.1 L MCHC 32.4 RDW 19.5 H RDW Differential 57.2 H Plt Count 134 L MPV 10.8 Immature Gran % (Auto) 0.300 Neut % (Auto) 47.2 Lymph % (Auto) 37.3 Elbert % (Auto) 8.7 Eos % (Auto) 4.4 Baso % (Auto) 2.1 H Absolute Neuts (auto) 7.0 Absolute Lymphs (auto) 5.51 H Total Counted Not Reportable PT 78.3 H INR 9.6 H* Sodium 146 H Potassium 4.1 Chloride 112 H Carbon Dioxide 24.0 Anion Gap 10 BUN 23 H Creatinine 1.87 H Estim Creat Clear Calc 50.67 Est GFR (MDRD) Af Amer 48 L Est GFR (MDRD) Non-Af 40 L BUN/Creatinine Ratio 12.3 Glucose 115 H Calcium 8.3 L Total Bilirubin 9.50 H AST 566 H ALT 585 H Alkaline Phosphatase 467 H Total Protein 6.9 Albumin 1.4 L Globulin 5.5 H Albumin/Globulin Ratio 0.3 L Medical Necessity - Tobacco Use Smoking Status: Never smoker Assessment/Plan All Active Problems Fever with exanthematous rash (Acute) Septic shock (Acute) Coagulopathy (Acute) DAYNA (acute kidney injury) (Acute) Abscess of right thigh (Acute) Hematuria (Acute) 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 knee joint (Resolved) Atrial fibrillation with RVR (Resolved) Acute cystitis (Resolved) Severe sepsis (Resolved) 1-Acute kidney injury. Patient has normal creatinine at baseline. Acute kidney injury is most probably from ischemic ATN. Less likely AIN because the fist UA did not show RBC and or WBC in the urine. Creatinine peaked at 2.7 mg/dL 10/30. ATN is on the recovery phase. Cr is trending down. Nonoliguric. No polyuria Keep mean arterial pressure more than 65. Might use lasix PRN for edema 2-hematuria most probably traumatic [place] catheter placement. Urology is following. Not on irrigation any more. 3- Proteinuria: Pro/Cr 3 g. Most probably related to hematuria. Will repeat the ratio when hematuria resolves 4-skin rash/impaired LFTs. 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 Patient is receiving IV Solu-Medrol. off Abx AST and ALT are trending down. INR and TB are trending up. Will defer management to the primary service 5-septic shock. resolved.. Of pressor.Off Abx Renal team will continue to follow. Please do not hesitate to call me with any question at my cell phone [phone] Mary Medina MD
--- NOTE | 2017-11-02 10:37 | PN_ITS ---
Patient Problems: Active and Suspected Problems Septic shock (Acute) Coagulopathy (Acute) DAYNA (acute kidney injury) (Acute) Abscess of right thigh (Acute) Hematuria (Acute) Subjective: Patient seen and examined. He has no complaints and feels well. He denies any fever or chills, any cough or chest pain, shortness of breath, any abdominal pain, any nausea vomiting or diarrhea. 12 point review of systems otherwise negative. Labs and vitals reviewed. Of note, patient's bilirubin still trending up so that the liver enzymes are trending down. Kidney function is also improving. Vitals/I&O's: Vital Signs Temp Pulse Resp BP Pulse Ox 98.1 F 70 16 111/72 96 11/02/17 09:00 11/02/17 09:00 11/02/17 09:00 11/02/17 09:00 11/02/17 09:00 Oxygen Flow Rate (L/min) 1 Oxygen Delivery Method Room Air Weight: 201 lb 4.513 oz Body Mass Index (BMI) 23.6 Intake and Output for Last 24 Hours 10/31/17 11/01/17 11/02/17 23:59 23:59 23:59 Intake Total 2065.4 / 2065.4 2751 / 2751 512 / 512 Output Total 1325 / 1325 1125 / 1125 350 / 350 Balance 740.4 / 740.4 1626 / 1626 162 / 162 General: Alert, Oriented x3, Cooperative, No apparent distress HEENT: Atraumatic, PERRLA, EOMI, Normocephalic, - - jaundiced sclera Oral: Moist Mucosa Neck: Supple, No JVD, Negative Carotid Bruits Lungs: Clear to auscultation, Normal air movement, No rhonchi, No wheeze, No rales Cardiovascular: Regular rate, Regular Rhythm, Normal S1, Normal S2, No murmurs Abdomen: Bowel Sounds Present, Soft, Non Tender, Non-Distended, No Hepato- splenomegaly Extremities: No clubbing, No cyanosis, No edema, Capillary Refill Less than 3 Seconds Skin: - - jaundiced skin. Has desquamating rash over face, head and neck. Musculoskeletal: No Tenderness to Palpation of Joints or Extremities Lymphatic: No Cervical, Supraclavicular, or Inguinal Adenopathy Neurological: Cranial nerves II-XII grossly intact, Motor Exam 5/5 strength throughout Psych/Mental Status: Normal Affect, Appropriate, Alert and oriented to time, place, person, mood and affect Laboratory Results 11/02/17 05:40: WBC 14.8 H, RBC 2.76 L, Hgb 7.2 L, Hct 22.2 L, MCV 80.4, MCH 26.1 L, MCHC 32.4, RDW 19.5 H, RDW Differential 57.2 H, Plt Count 134 L, MPV 10.8, Immature Gran % (Auto) 0.300, Neut % (Auto) 47.2, Lymph % (Auto) 37.3, [place] % (Auto) 8.7, Eos % (Auto) 4.4, Baso % (Auto) 2.1 H, Absolute Neuts (auto) 7.0, Absolute Lymphs (auto) 5.51 H, Total Counted Not Reportable 11/02/17 05:40: Sodium 146 H, Potassium 4.1, Chloride 112 H, Carbon Dioxide 24.0 , Anion Gap 10, BUN 23 H, Creatinine 1.87 H, Estim Creat Clear Calc 50.67, Est GFR (MDRD) Af Amer 48 L, Est GFR (MDRD) Non-Af 40 L, BUN/Creatinine Ratio 12.3, Glucose 115 H, Calcium 8.3 L, Total Bilirubin 9.50 H, AST 566 H, ALT 585 H, Alkaline Phosphatase 467 H, Total Protein 6.9, Albumin 1.4 L, Globulin 5.5 H, Albumin/Globulin Ratio 0.3 L 11/02/17 05:40: PT 78.3 H, INR 9.6 H* Diagnostic Data Chest X-Ray 10/28/17 19:51 IMPRESSION: Decreased inspiratory effort with bibasilar atelectasis. The study is otherwise unchanged. Electronically Signed: Frantz Paula DO at 20:07 EDT Tel [phone], Service support , Lower Extremity CT 10/28/17 19:52 IMPRESSION: 1. Right total knee arthroplasty. 2. Abscess which appears to involve the suprapatellar space and extends outward along the vastus medialis musculature. There is associated periosteal reaction on the femur without evidence of fracture or cortical disruption. Electronically Signed: Frantz Paula DO at 21:26 EDT Tel [phone], Service support , Gallbladder Ultrasound 11/01/17 07:11 IMPRESSION: Thickened gallbladder wall with a small amount of pericholecystic fluid. Mild hepatomegaly and mild degree of fatty infiltration of the liver. Minimal amount of perihepatic fluid. Tiny right pleural effusion. Electronically Signed: Froylan Sims MD at 12:34 EDT Tel [phone], Service support , Current Medications Emollient Ointment (Eucerin Intensive Repair) 1 applic TOPICAL 4X/DAY PRN PRN; Protocol PRN Reason: Dry Skin Last Admin: 10/31/17 04:52 Dose: 1 applicatio Heparin Sodium (Beef Lung) (Heparin 500 Unit/5 Ml (100/Ml)) 500 unit IV UD PRN PRN Reason: HEPARIN FLUSH Sodium Chloride () 250 mls @ 15 mls/hr IV .[id number] PRN PRN Reason: SALINE FLUSH Dextrose () 1,000 mls @ 100 mls/hr IV .Q10H [facility] Last Admin: 11/02/17 10:12 Dose: 100 mls/hr Lactobacillus Acidophilus (Acidophilus) 2 tablet PO 4X/DAY MAGDA Last Admin: 11/02/17 08:36 Dose: 2 tablet Magnesium Hydroxide (Milk Of Magnesia) 30 ml PO DAILY PRN PRN PRN Reason: Constipation Methylprednisolone (Solu-Medrol) 40 mg IV DAILY MAGDA Last Admin: 11/02/17 09:04 Dose: 40 mg Nutritional Formula (Lactose Free) (Ensure Enlive) 120 ml PO 4X/DAY MAGDA Last Admin: 11/02/17 09:04 Dose: 120 ml Sodium Chloride () 5 - 30 ml IV UD PRN PRN Reason: SALINE FLUSH Last Admin: 11/02/17 08:36 Dose: 10 ml Sodium Chloride () 10 - 20 ml IV UD PRN PRN Reason: PICC FLUSH Medical Necessity - Tobacco Use Smoking Status: Never smoker Assessment/Plan All Active Problems Fever with exanthematous rash (Acute) Septic shock (Acute) Coagulopathy (Acute) DAYNA (acute kidney injury) (Acute) Abscess of right thigh (Acute) Hematuria (Acute) 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 knee joint (Resolved) Atrial fibrillation with RVR (Resolved) Acute cystitis (Resolved) Severe sepsis (Resolved) 1. Septic shock due to possible left thigh abscess- resolved * now off antibiotics as there was no microbiologic evidence of infection * Orthopedics on board-didnt think there was any evidence of an abscess and recommended conservative management * o * 2. 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 * repeat RUQ USG showed fatty liver infiltration, measuring 18.5cm. Aldactone within normal limits and there is no demonstrated mass lesion. Gallbladder showed normal distended gallbladder with thickened gallbladder wall measuring about 4.9 mm. Negative sonographic Harper sign and there is a small amount of pericholecystic fluid. There are no gallstones. * At this point, patient still prefers to stay [facility] and does want to be transferred. We will continue trending liver enzymes and bilirubin. If bilirubin trends up tomorrow, will discuss with patient about the need for experience GI assessment as we do not have a GI service here, so he is transferred * continue IV solumedrol 40mg daily; to transition to oral steroids tomorrow * will get general surgery to evaluate him due to thickened gallbladder and pericholecystic fluid. * 3. Anemia due to acute blood loss * Stable. Hemoglobin is 7.2 today. We will continue to monitor. Hematuria has not recurred. He status post transfusion of 2 units of packed red blood cells. * will transfuse if Hb falls <7 * 4. Supratherapeutic INR, due to worsening liver function * INR today has trended up to 9.6 * coumadin on hold. Given oral vitamin K * coumadin on hold. * No Active bleeding focus now. * will monitor * 5. DAYNA * Cr trended down to 1.87. likely due to ATN * will monitor for further improvement * 6. Factor V Leiden Deficiency * coumadin held o/a of supratherapeutic INR * will monitor * 7. Thrombocytopenia * platelets down to 134 today; was normal on admission * will continue to monitor. * 8. Hypernatremia: Na down to 146; was 149 yesterday. Will continue to trend and monitor DVT prophylaxis: SCDs. No anticoagulation o/a of liver derangement and elevated INR. This note was generated with [employer] dictation software. It may contain incorrect words, spelling, and punctuation that were not noted in checking the note before signing. Code Visit Inpatient E&M: 71682 Subs Hosp L3
[2017-11-02 11:37] LABS: ANTINUCLEAR ANTIBODIES DIRECT Negative (Negative)
--- NOTE | 2017-11-02 12:11 | PCM.CONS.GEN ---
<Shane Caballero - Last Filed: 11/02/17 19:50> Reason for Consult History of Present Illness: The patient is a 57 year old M [] Past Medical History Past Medical History (Chronic Problems): Chronic Problems Factor V Leiden (Chronic) Elevated LFTs (Chronic) Anemia (Chronic) Status post total right knee replacement (Chronic) History of pulmonary embolism (Chronic) History of DVT (deep vein thrombosis) (Chronic) Allergies Sulfa (Sulfonamide Antibiotics) Allergy (Verified 10/09/17 10:25) Unknown vancomycin Allergy (Verified 10/12/17 12:41) Fever and skin rash ceftriaxone Adverse Reaction (Verified 10/28/17 18:59) Rash linezolid Adverse Reaction (Verified 10/28/17 18:59) Rash Home Medications: Ambulatory Orders Medication Instructions Recorded Acetaminophen [Tylenol] 1,000 mg PO PRN PRN 08/24/17 Ferrous Sulfate [Iron] 325 mg PO BID #60 tab 08/26/17 Docusate Sodium [Colace] 100 mg PO BID 09/18/17 Warfarin [Coumadin] 8 mg PO DAILY 10/09/17 Doxycycline 100 mg PO BID 30 Days #60 cap 10/12/17 Patient Problems: Active and Suspected Problems Septic shock (Acute) Coagulopathy (Acute) DAYNA (acute kidney injury) (Acute) Abscess of right thigh (Acute) Hematuria (Acute) - Physical Exam Vital Signs Temp Pulse Resp BP Pulse Ox 97.6 F L 78 18 119/71 98 11/02/17 15:00 11/02/17 15:09 11/02/17 15:00 11/02/17 15:00 11/02/17 15:00 Oxygen Flow Rate (L/min) 1 Oxygen Delivery Method Room Air Weight: 201 lb 4.513 oz Body Mass Index (BMI) 23.6 Intake and Output for Last 24 Hours 10/31/17 11/01/17 11/02/17 23:59 23:59 23:59 Intake Total 2065.4 / 2065.4 2751 / 2751 1559 / 1559 Output Total 1325 / 1325 1125 / 1125 500 / 500 Balance 740.4 / 740.4 1626 / 1626 1059 / 1059 Laboratory Tests Past 24 Hrs 10/31/17 11/02/17 11/02/17 11:00 05:40 05:40 WBC 14.8 H RBC 2.76 L Hgb 7.2 L Hct 22.2 L MCV 80.4 MCH 26.1 L MCHC 32.4 RDW 19.5 H RDW Differential 57.2 H Plt Count 134 L MPV 10.8 Immature Gran % (Auto) 0.300 Neut % (Auto) 47.2 Lymph % (Auto) 37.3 [place] % (Auto) 8.7 Eos % (Auto) 4.4 Baso % (Auto) 2.1 H Absolute Neuts (auto) 7.0 Absolute Lymphs (auto) 5.51 H Total Counted Not Reportable PT INR Sodium 146 H Potassium 4.1 Chloride 112 H Carbon Dioxide 24.0 Anion Gap 10 BUN 23 H Creatinine 1.87 H Estim Creat Clear Calc 50.67 Est GFR (MDRD) Af Amer 48 L Est GFR (MDRD) Non-Af 40 L BUN/Creatinine Ratio 12.3 Glucose 115 H Calcium 8.3 L Total Bilirubin 9.50 H AST 566 H ALT 585 H Alkaline Phosphatase 467 H Total Protein 6.9 Albumin 1.4 L Globulin 5.5 H Albumin/Globulin Ratio 0.3 L DARIELA Screen Negative 11/02/17 05:40 WBC RBC Hgb Hct MCV MCH MCHC RDW RDW Differential Plt Count MPV Immature Gran % (Auto) Neut % (Auto) Lymph % (Auto) [place] % (Auto) Eos % (Auto) Baso % (Auto) Absolute Neuts (auto) Absolute Lymphs (auto) Total Counted PT 78.3 H INR 9.6 H* Sodium Potassium Chloride Carbon Dioxide Anion Gap BUN Creatinine Estim Creat Clear Calc Est GFR (MDRD) Af Amer Est GFR (MDRD) Non-Af BUN/Creatinine Ratio Glucose Calcium Total Bilirubin AST ALT Alkaline Phosphatase Total Protein Albumin Globulin Albumin/Globulin Ratio DARIELA Screen Assessment/Plan All Active Problems Fever with exanthematous rash (Acute) Septic shock (Acute) Coagulopathy (Acute) DAYNA (acute kidney injury) (Acute) Abscess of right thigh (Acute) Hematuria (Acute) 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 knee joint (Resolved) Atrial fibrillation with RVR (Resolved) Acute cystitis (Resolved) Severe sepsis (Resolved) I have had an opportunity to completely review the patient's history and physical as noted above. Although the patient's admitting diagnosis was septic shock there seems to be some question from the consultants as to whether he actually has a right total knee related abscess or not. All antibiotics have currently been held and in fact the patient is being treated with methylprednisolone for his felt to be allergic rash related to previous antibiotic therapy. It is a very important note to make that upon his admission his gallbladder on ultrasound was completely normal. Since that time October 28 - November 02 he has gone from a body weight of 191 pounds to now 201 pounds. Although the current gallbladder ultrasound suggests gallbladder wall thickening and some pericholecystic fluid this would be very much consistent with shock liver and his generalized fluid sequestration. At no point has he been complaining of abdominal pain or epigastric pain or right upper quadrant pain. It is of additional note that upon admission 10/28/2017 his hemoglobin is 9.5 and currently it is 7.2. As noted he is received 2 units of packed red cells and 3 units of FFP. His INR on admission was greater than 19.5. On October 29 the subsequent day it was 2.9. And since that time it has been ever increasing. Today his INR was 9.6. The patient notes that he had a small bowel movement earlier today. Slightly diarrhea. He did not notice any bright red blood or clots. On his admission his total bilirubin was 2.6. It has steadily and progressively consistently increased since that time and today was 9.5. The patient is clearly jaundiced. On his presentation and his AST was 694. It climbed to a high of 4 on October 31 and now has declined to 566. On his admission his ALT was 485. It climbed to a high of 863 on October 31 and now has declined to 585. On admission his alkaline phosphatase was 770. That was a high and he has retreated to 467. He denies any previous history of hepatitis or cholelithiasis or cirrhosis. On his admission his BUN was 34 and it climbed to a high of 37 on October 30 and now has retreated to 23. On presentation his creatinine was 2.27 and it reached a high of 2.72 on October 30 and now has improved to 1.87 My impression currently is that the patient does not have an acute surgical illness or an acute surgical abdomen. He would not be a candidate for any type of surgical intervention be that cholecystectomy or percutaneous cholecystostomy or even endoscopy at this time because of his marked degree of anticoagulation. I do not believe however that he has acute cholecystitis as he has no symptoms or clinical exam findings that would correlate with this diagnosis. Might consider CT abdomen with oral contrast only for further liver definition pending labs in the a.m. I do not have distinct explanation for his elevated bilirubin unless there is a hidden degree of blood resorption. As mentioned by , if his bilirubin continues to climb then consulting GI would likely be beneficial. It is of note however with the patient's ongoing level of anticoagulation they could not pursue any intervention either. My current suspicion is that the patient will continue to benefit from maximization of his medical care. I appreciate the opportunity of assisting with her surgical care. We will review tomorrow morning's laboratory as well but unfortunately likely will not be able to provide any definitive diagnosis. Shane Caballero M.D., F.A.C.S. <Leana Walker - Last Filed: 11/03/17 06:15> Problem List (1) Elevated LFTs Status: Chronic Reason for Consult Date of Consultation: 11/02/17 Reason for Consultation: Elevated Bilirubin History of Present Illness: The patient is a 57 year old M who presents with fever, lethargy, and septic shock. Patient noted he had a right knee replacement on August [address] Vaz. He was treated 1 week later for a pseudomonal urinary tract infection. On September 19, patient developed a right anterior thigh abscess. He was taken back to the OR for perioperative joint infection. He had a PICC line placed and was given IV antibiotics, ceftriaxone. He has been following with Dr. Mohan. On Oct 08, patient developed a fever and rash and was hospitalized. He was switched to Zyvox and doxycycline due to allergy to Vanco. October 19, patient's PCP stopped the Zyvox due to concern of [id number]. Patient had developed a fever on 10/28 along with increased lethargy. He noted more swollen hands and face. His tongue was swollen and bleeding. His temperature at home was 103.8. Patient was brought into the ED with family. Patient is on chronic anticoagulation for history of DVT, PE, and factor V Leiden. In the ED patient had an INR of 19.5. Patient was given Vitamin K. Patient also had elevated liver enzymes which prompted RUQ u/s which demonstrated normal distended gallbladder, wall measures 2 mm, no pericholecystic fluid, no gallstones noted. CBD measured 4mm. CT of the right lower extremity demonstrated abscess involving suprapatellar space extending along musculature. Orthopedics is following the patient and recommending repeat imaging at some time. No surgical intervention is being recommended. Patient denies abdominal pain. He notes single episode of diarrhea. Patient's bilirubin continued to increase. Repeat RUQ u/s was repeated on 11/01 demonstrating normal distended gallbladder, wall measures 4.9 mm, small amount of pericholecystic fluid, no gallstones, mild hepatomegaly. CBD 4.4 mm. Patient has also been anemic. He has been given 2 units of PRBC and 3 units of Plasma. Patient's bilirubin has increased from 2.6 ---> 9.50. Patient's Hgb today is 7.2. Past Medical History Allergies Sulfa (Sulfonamide Antibiotics) Allergy (Verified 10/09/17 10:25) Unknown vancomycin Allergy (Verified 10/12/17 12:41) Fever and skin rash ceftriaxone Adverse Reaction (Verified 10/28/17 18:59) Rash linezolid Adverse Reaction (Verified 10/28/17 18:59) Rash Surgical History: total knee arthroplasty Lives: With Family Smoking Status: Never smoker Alcohol: None Drugs: None - *Family History Maternal History Items: No pertinent history Paternal History Items: No pertinent history Review of Systems Constitutional: Reports: Anorexia, Malaise HEENT: Denies: Head Aches, Sinus Congestion, Sinus Drainage Cardiovascular: Denies: Chest Pain, Palpitations Respiratory: Denies: Cough, Shortness of breath at rest, Sputum production Gastrointestinal: Reports: Diarrhea. Denies: Abdominal Pain, Nausea, Vomiting Genitourinary: Reports: Urgency Musculoskeletal: Reports: Joint stiffness, Joint swelling, Joint Tenderness Skin: Reports: Dryness, Jaundice, Rash Neurological: Denies: Numbness, Tingling, Focal weakness Psychiatric: Denies: Anxiety, Depression, Homicidal Ideations, Suicidal Ideations Hematologic/ Lymphatic: Reports: Anemia, Easy Bruising, Easy Bleeding, Hx of blood transfusion - Physical Exam General: Alert, Oriented x3, Cooperative, - - Jaundice appearance HEENT: Atraumatic, PERRLA, EOMI, Normocephalic Neck: Supple, No JVD, Negative Carotid Bruits Lungs: Clear to auscultation, Normal air movement Cardiovascular: Regular rate, No murmurs Abdomen: Bowel Sounds Present, Soft, Non Tender, Non-Distended Extremities: No edema, Capillary Refill Less than 3 Seconds Skin: Incision - Right anterior knee, - - Rede/purplish rash on abdomen/lower extremities Musculoskeletal: No Tenderness to Palpation of Joints or Extremities Neurological: Neuro grossly intact Psych/Mental Status: Normal Affect, Appropriate Vital Signs Temp Pulse Resp BP Pulse Ox 98.1 F 76 16 111/72 96 11/02/17 09:00 11/02/17 11:05 11/02/17 09:00 11/02/17 09:00 11/02/17 09:00 Oxygen Flow Rate (L/min) 1 Oxygen Delivery Method Room Air Weight: 201 lb 4.513 oz Body Mass Index (BMI) 23.6 Intake and Output for Last 24 Hours 10/31/17 11/01/17 11/02/17 23:59 23:59 23:59 Intake Total 2065.4 / 2065.4 2751 / 2751 1231 / 1231 Output Total 1325 / 1325 1125 / 1125 500 / 500 Balance 740.4 / 740.4 1626 / 1626 731 / 731 Laboratory Tests Past 24 Hrs 10/31/17 11/02/17 11/02/17 11:00 05:40 05:40 WBC 14.8 H RBC 2.76 L Hgb 7.2 L Hct 22.2 L MCV 80.4 MCH 26.1 L MCHC 32.4 RDW 19.5 H RDW Differential 57.2 H Plt Count 134 L MPV 10.8 Immature Gran % (Auto) 0.300 Neut % (Auto) 47.2 Lymph % (Auto) 37.3 [place] % (Auto) 8.7 Eos % (Auto) 4.4 Baso % (Auto) 2.1 H Absolute Neuts (auto) 7.0 Absolute Lymphs (auto) 5.51 H Total Counted Not Reportable PT INR Sodium 146 H Potassium 4.1 Chloride 112 H Carbon Dioxide 24.0 Anion Gap 10 BUN 23 H Creatinine 1.87 H Estim Creat Clear Calc 50.67 Est GFR (MDRD) Af Amer 48 L Est GFR (MDRD) Non-Af 40 L BUN/Creatinine Ratio 12.3 Glucose 115 H Calcium 8.3 L Total Bilirubin 9.50 H AST 566 H ALT 585 H Alkaline Phosphatase 467 H Total Protein 6.9 Albumin 1.4 L Globulin 5.5 H Albumin/Globulin Ratio 0.3 L DARIELA Screen Negative 11/02/17 05:40 WBC RBC Hgb Hct MCV MCH MCHC RDW RDW Differential Plt Count MPV Immature Gran % (Auto) Neut % (Auto) Lymph % (Auto) [place] % (Auto) Eos % (Auto) Baso % (Auto) Absolute Neuts (auto) Absolute Lymphs (auto) Total Counted PT 78.3 H INR 9.6 H* Sodium Potassium Chloride Carbon Dioxide Anion Gap BUN Creatinine Estim Creat Clear Calc Est GFR (MDRD) Af Amer Est GFR (MDRD) Non-Af BUN/Creatinine Ratio Glucose Calcium Total Bilirubin AST ALT Alkaline Phosphatase Total Protein Albumin Globulin Albumin/Globulin Ratio DARIELA Screen Assessment/Plan I have been consulted in conjunction with Dr. Caballero Impression: Acute hepatic injury Plan: I have discussed this patient with Dr. Caballero. Patient past events would indicate acute injury to the liver. Patient does not appear to have abdominal discomfort/pain. Surgical intervention is not being recommended at this time. Patient has had the opportunity to ask and have questions answered. Patient verbally understands and agrees with the plan. Thank you for allowing us to participate in this patient's care. Code Visit Office Visits / Consults: [id number] IP Consult L3
--- NOTE | 2017-11-02 12:27 | PN.ID_ITS ---
Patient Problems: Active and Suspected Problems Septic shock (Acute) Coagulopathy (Acute) DAYNA (acute kidney injury) (Acute) Abscess of right thigh (Acute) Hematuria (Acute) Subjective: Feeling a little better. Rash improving. No knee pain/redness/swelling/ drainage. - Physical Exam General: Alert, Cooperative, No apparent distress Lungs: Clear to auscultation, Normal air movement Cardiovascular: Regular rate, Regular Rhythm Abdomen: Soft, Non Tender, Non-Distended Skin: Rash Present - diffuse desquamation Musculoskeletal: No Tenderness to Palpation of Joints or Extremities Vital Signs Temp Pulse Resp BP Pulse Ox 98.1 F 76 16 111/72 96 11/02/17 09:00 11/02/17 11:05 11/02/17 09:00 11/02/17 09:00 11/02/17 09:00 Oxygen Flow Rate (L/min) 1 Oxygen Delivery Method Room Air Weight: 91.3 kg Body Mass Index (BMI) 23.6 Intake and Output for Last 24 Hours 10/31/17 11/01/17 11/02/17 23:59 23:59 23:59 Intake Total 2065.4 / 2065.4 2751 / 2751 1231 / 1231 Output Total 1325 / 1325 1125 / 1125 500 / 500 Balance 740.4 / 740.4 1626 / 1626 731 / 731 Laboratory Tests Past 24 Hrs 10/31/17 11/02/17 11/02/17 11:00 05:40 05:40 WBC 14.8 H RBC 2.76 L Hgb 7.2 L Hct 22.2 L MCV 80.4 MCH 26.1 L MCHC 32.4 RDW 19.5 H RDW Differential 57.2 H Plt Count 134 L MPV 10.8 Immature Gran % (Auto) 0.300 Neut % (Auto) 47.2 Lymph % (Auto) 37.3 [place] % (Auto) 8.7 Eos % (Auto) 4.4 Baso % (Auto) 2.1 H Absolute Neuts (auto) 7.0 Absolute Lymphs (auto) 5.51 H Total Counted Not Reportable PT INR Sodium 146 H Potassium 4.1 Chloride 112 H Carbon Dioxide 24.0 Anion Gap 10 BUN 23 H Creatinine 1.87 H Estim Creat Clear Calc 50.67 Est GFR (MDRD) Af Amer 48 L Est GFR (MDRD) Non-Af 40 L BUN/Creatinine Ratio 12.3 Glucose 115 H Calcium 8.3 L Total Bilirubin 9.50 H AST 566 H ALT 585 H Alkaline Phosphatase 467 H Total Protein 6.9 Albumin 1.4 L Globulin 5.5 H Albumin/Globulin Ratio 0.3 L DARIELA Screen Negative 11/02/17 05:40 WBC RBC Hgb Hct MCV MCH MCHC RDW RDW Differential Plt Count MPV Immature Gran % (Auto) Neut % (Auto) Lymph % (Auto) [place] % (Auto) Eos % (Auto) Baso % (Auto) Absolute Neuts (auto) Absolute Lymphs (auto) Total Counted PT 78.3 H INR 9.6 H* Sodium Potassium Chloride Carbon Dioxide Anion Gap BUN Creatinine Estim Creat Clear Calc Est GFR (MDRD) Af Amer Est GFR (MDRD) Non-Af BUN/Creatinine Ratio Glucose Calcium Total Bilirubin AST ALT Alkaline Phosphatase Total Protein Albumin Globulin Albumin/Globulin Ratio DARIELA Screen Medical Necessity - Tobacco Use Smoking Status: Never smoker Route of nutrition/ use of supplements: [] Nutritional Intake: [] IV Site: [] [place] Catheter: [] - Assessment/Plan Antibiotics: [] Assessment/Plan: [] Active and Suspected Problems Septic shock (Acute) Coagulopathy (Acute) DAYNA (acute kidney injury) (Acute) Abscess of right thigh (Acute) Hematuria (Acute) R knee PJI - stable off of abx. LFTs improving, Cr improving, BP better. On steroids. 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
[2017-11-03] VITALS (21 sets, daily range): BP systolic 81–116; BP diastolic 49–77; PULSE 77–105; RESP 15–21; TEMP 36.1–36.8; O2SAT 84–100
--- NOTE | 2017-11-03 03:33 | NURSING ---
Was with patient taking VS and changing bed with help of LITERACY COACH, patient began to be very tachypneic and anxious. He suddenly began to loose consciousness and his eyes rolled back in his head. He never lost a pulse, after about 10 seconds and after we raised his head in the bed he became alert and responsive. At that point he did complain of some dizziness. His BP was 99/[address] Osborne was already on the floor and had him come and elvaluate him. No new orders at this time. The patient quickly began to feel better. Will continue to monitor patient closely.
[2017-11-03] MEDS: 0.9% NaCl Peripheral Flush Adult/Peds IV ×3 (03:44→11:27)
[2017-11-03 04:09] LABS: Absolute Lymphocyte Count 6.07 X10^3/ul (0.83-4.51); Absolute Neutrophil Count 7.9 X10^3/uL (2.0-7.7); Basophil# 0.19 X10^3/uL; Basophil% 1.1 % (0-1); Eosinophil# 0.25 X10^3/uL; Eosinophils% 1.5 % (0-5); Hematocrit 16.9 % (40-54); Lymphocyte # 6.07 X10^3/ul (4.0); Lymphocyte % 36.6 % (19-41); Mean Corpuscular Hgb 25.8 pg (27.0-32.0); Mean Corpuscular Volume 80.9 fL (80-94); Mean Platelet Vol. 10.5 fl (6.2-12.0); Monocyte# 2.11 X10^3/uL; Monocyte% 12.7 % (0-10); Neutrophil # 7.85 X10^3/uL (2.7-7.7); Neutrophil % 47.5 % (47-70); Platelet Count 179 K/mm3 (150-450); RBC Distribution Width CV 20.2 % (11.6-14.6); RBC Distribution Width SD 59.6 fl (35.1-43.9); Red Blood Count 2.09 M/mm3 (4.6-6.2); White Blood Count 16.6 K/mm3 (4.4-11.0)
[2017-11-03 04:23] LABS: Prothrombin Time (Protime)PT. 66.7 SECONDS (11.7-14.9)
[2017-11-03 04:25] LABS: ALB/GLOB Ratio 0.2 RATIO (0.9-2.4); AST(SGOT) 284 U/L (15-37); Alanine Aminotransfer ALT/SGPT 428 U/L (16-61); Albumin, Serum 1.3 g/dL (3.2-5.0); Alkaline Phosphatase 474 U/L (45-117); Anion Gap 14 (5-15); BUN 28 mg/dL (7-18); BUN/Creat Ratio 12.1 RATIO (10-20); Calcium,Total 8.5 mg/dL (8.5-10.1); Chloride 112 mmol/L (98-107); Creatinine, Serum 2.32 mg/dL (0.70-1.30); EST Glomerular Filtration Rate 31 mL/min (>60); Est Glom Filt Rate - Afr Amer 38 mL/min (>60); Estimated Creatinine Clearance 40.84 ml/min; Globulin 5.5 g/dL (2.2-4.2); Glucose 115 mg/dL (74-106); Potassium 4.6 mmol/L (3.5-5.1); Protein, Total 6.8 g/dL (6.4-8.2); Sodium Level 146 mmol/L (136-145)
[2017-11-03 04:30] LABS: Differential Indicated SCAN CRITERIA MET; Hemoglobin 5.4 g/dl (13.0-16.5); International Normalized Ratio 7.8; POSITIVE COUNT YES; POSITIVE DIFFERENTIAL YES; POSITIVE MORPHOLOGY YES
[2017-11-03 04:31] LABS: Anisocytosis 2+; Differential Comment SCAN; Hypochromasia 2+; Microcytosis 2+
--- NOTE | 2017-11-03 06:15 | CT_ITS ---
STUDY: CT ABDOMEN AND PELVIS WITHOUT CONTRAST REASON FOR EXAM: Male, 57 years old. Hematuria. Anemia. Left flank pain and left lower quadrant pain. Hypotensive. Tachycardia. Patient is on anticoagulants. RADIATION DOSAGE (If Supplied By Facility): CTDIvol = ( 8.41 ) mGy, DLP = ( 479.31 ) mGycm TECHNIQUE: Transaxial images were obtained from the dome of the diaphragm to the symphysis pubis with oral contrast, and without intravenous contrast. Sagittal and coronal images were reconstructed. Individualized dose optimization techniques were used for this CT. COMPARISON: Comparison is made with prior examination dated June 17, 2012. FINDINGS: There are small bilateral pleural effusions with underlying bibasilar infiltration and/or atelectasis. Mild cardiomegaly. Small pericardial effusion. Perihepatic and perisplenic fluid. Normal liver. Mild contraction of the gallbladder with thickening of the gallbladder wall and small amount of pericholecystic fluid. Normal spleen. Normal pancreas. Normal bilateral adrenal glands. Mild degree of right perinephric stranding. The left kidney is displaced anteriorly due to the large left hematoma. There is left perinephric stranding as well as left posterior perinephric fluid collection. Increased density seen within the calyces of the mid and lower region of the left kidney. I suspect blood within the calyceal system. Normal visualized stomach. Normal small intestine. There are multiple colonic diverticula consistent with diverticulosis. The appendix is visualized and appears normal. Normal abdominal aorta. Normal inferior vena cava. There is evidence of a large retroperitoneal hematoma arising from the posterior aspect of the left kidney down into the lower abdomen and pelvis. This is more pronounced on the left side of the pelvis down to the region of the groin. This is of inhomogeneous density suggestive of acute on subacute bleed. This extends into the left psoas muscle. The hematoma measures 12.4 cm x 10.5 cm x 18.4 cm. Diffuse bladder wall thickening. Central prostatic calcification. Free fluid is seen in the posterior pelvis. There is a left-sided inguinal hernia containing adipose tissue. There are degenerative changes of the visualized lumbar spine. CT/Abdomen/Pel W ORAL Cont Only IMPRESSION: Large left retroperitoneal hematoma as described. Findings suggest a lumbar blood within the collecting system of the left kidney. Ascites. Diffuse bladder wall thickening. Bilateral pleural effusions with bibasilar atelectasis and/or infiltration. Electronically Signed: Froylan Sims MD at 8:44 EDT Tel [phone], Service support ,
--- NOTE | 2017-11-03 06:33 | PN.SURG_ITS ---
Patient Problems: Active and Suspected Problems Septic shock (Acute) Coagulopathy (Acute) DAYNA (acute kidney injury) (Acute) Abscess of right thigh (Acute) Hematuria (Acute) Subjective: Pt c/o new left lower quadrant,mid abdomen, flank pain When pt was moved last night he has acute tachypnea and dyspnea. Same thing occurred with my attempting to inspect his left flank this a.m. Labs Hgb 5.4 INR 7.8 TB 9.7 - Physical Exam General: - - weak, ill appearing Abdomen: Soft, - - tender with mild guarding LLQ and left mid abdomen and tender left flank Vital Signs Temp Pulse Resp BP Pulse Ox 97.5 F L 105 H 18 98/51 L 95 11/03/17 04:27 11/03/17 04:27 11/03/17 04:27 11/03/17 04:27 11/03/17 04:27 Oxygen Flow Rate (L/min) 1 Oxygen Delivery Method Room Air Weight: 201 lb 15.095 oz Body Mass Index (BMI) 23.6 Intake and Output for Last 24 Hours 11/01/17 11/02/17 11/03/17 23:59 23:59 23:59 Intake Total 2751 / 2751 1659 / 1659 Output Total 1125 / 1125 500 / 500 Balance 1626 / 1626 1159 / 1159 Laboratory Tests Past 24 Hrs 10/31/17 11/02/17 11/02/17 11:00 05:40 05:40 WBC 14.8 H RBC 2.76 L Hgb 7.2 L Hct 22.2 L MCV 80.4 MCH 26.1 L MCHC 32.4 RDW 19.5 H RDW Differential 57.2 H Plt Count 134 L MPV 10.8 Immature Gran % (Auto) 0.300 Neut % (Auto) 47.2 Lymph % (Auto) 37.3 [place] % (Auto) 8.7 Eos % (Auto) 4.4 Baso % (Auto) 2.1 H Absolute Neuts (auto) 7.0 Absolute Lymphs (auto) 5.51 H Total Counted Not Reportable Differential Comment Diff Path Review Hypochromasia Anisocytosis Microcytosis PT INR Sodium 146 H Potassium 4.1 Chloride 112 H Carbon Dioxide 24.0 Anion Gap 10 BUN 23 H Creatinine 1.87 H Estim Creat Clear Calc 50.67 Est GFR (MDRD) Af Amer 48 L Est GFR (MDRD) Non-Af 40 L BUN/Creatinine Ratio 12.3 Glucose 115 H Calcium 8.3 L Total Bilirubin 9.50 H AST 566 H ALT 585 H Alkaline Phosphatase 467 H Total Protein 6.9 Albumin 1.4 L Globulin 5.5 H Albumin/Globulin Ratio 0.3 L DARIELA Screen Negative Blood Type Antibody Screen Crossmatch 11/02/17 11/03/17 11/03/17 05:40 03:45 03:45 WBC 16.6 H RBC 2.09 L Hgb 5.4 L* Hct 16.9 L MCV 80.9 MCH 25.8 L MCHC 32.0 RDW 20.2 H RDW Differential 59.6 H Plt Count 179 MPV 10.5 Immature Gran % (Auto) 0.600 Neut % (Auto) 47.5 Lymph % (Auto) 36.6 [place] % (Auto) 12.7 H Eos % (Auto) 1.5 Baso % (Auto) 1.1 H Absolute Neuts (auto) 7.9 H Absolute Lymphs (auto) 6.07 H Total Counted Not Reportable Differential Comment SCAN Diff Path Review May foll Hypochromasia 2+ Anisocytosis 2+ Microcytosis 2+ PT 78.3 H INR 9.6 H* Sodium 146 H Potassium 4.6 Chloride 112 H Carbon Dioxide 20.0 L Anion Gap 14 BUN 28 H Creatinine 2.32 H Estim Creat Clear Calc 40.84 Est GFR (MDRD) Af Amer 38 L Est GFR (MDRD) Non-Af 31 L BUN/Creatinine Ratio 12.1 Glucose 115 H Calcium 8.5 Total Bilirubin 9.70 H AST 284 H ALT 428 H Alkaline Phosphatase 474 H Total Protein 6.8 Albumin 1.3 L Globulin 5.5 H Albumin/Globulin Ratio 0.2 L DARIELA Screen Blood Type Antibody Screen Crossmatch 11/03/17 11/03/17 03:45 04:55 WBC RBC Hgb Hct MCV MCH MCHC RDW RDW Differential Plt Count MPV Immature Gran % (Auto) Neut % (Auto) Lymph % (Auto) [place] % (Auto) Eos % (Auto) Baso % (Auto) Absolute Neuts (auto) Absolute Lymphs (auto) Total Counted Differential Comment Diff Path Review Hypochromasia Anisocytosis Microcytosis PT 66.7 H INR 7.8 H* Sodium Potassium Chloride Carbon Dioxide Anion Gap BUN Creatinine Estim Creat Clear Calc Est GFR (MDRD) Af Amer Est GFR (MDRD) Non-Af BUN/Creatinine Ratio Glucose Calcium Total Bilirubin AST ALT Alkaline Phosphatase Total Protein Albumin Globulin Albumin/Globulin Ratio DARIELA Screen Blood Type A POSITIVE Antibody Screen NEGATIVE Crossmatch See Detail Medical Necessity - Tobacco Use Smoking Status: Never smoker Assessment/Plan All Active Problems Fever with exanthematous rash (Acute) Septic shock (Acute) Coagulopathy (Acute) DAYNA (acute kidney injury) (Acute) Abscess of right thigh (Acute) Hematuria (Acute) 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 knee joint (Resolved) Atrial fibrillation with RVR (Resolved) Acute cystitis (Resolved) Severe sepsis (Resolved) Suspect left retroperitoneal bleed secondary to over anticoagulation. No stools since earlier yesterday so not likely GI source of loss. Suspect blood resorption as partial cause of increased TB. TB is currently stable Suspect fluid overload and pleural effusions as source of significant dyspnea with minimal movement complicated by anemia I will obtain an urgent abd/pelvic CT with oral contrast only Pt needs diuresis to allow for blood and plasma transfusion. Needs more urgent correction of anticoagulation. I will not have a surgical means of treatment. Might require interventional radiology for embolization if anticoagulation is corrected and bleeding persists. Pt appears more ill this a.m. than last night, Mild tachycardia and relative hypotension noted. Hospitalist notified by nursing.
[2017-11-03] MEDS: Phytonadione (Vit K) 10 MG/ML Ampul 5 MG PO (06:53)
[2017-11-03 08:16] LABS: Eosinophil Ct. Urine 14 % (.)
[2017-11-03 08:23] LABS: Cytoplasmic Ab (C-ANCA) 1:40 titer (Neg:<1:20); Perinuclear Ab (P-ANCA) <1:20 titer (Neg:<1:20)
--- NOTE | 2017-11-03 09:43 | NURSING ---
Report called to Mckayla with [facility] transport. She will be calling ICU with an ETA. Report should be called to [phone]. He will be going to [facility]
[2017-11-03] MEDS: 0.9% Normal Saline 1,000 ML 999 ML IV (09:45)
--- NOTE | 2017-11-03 09:48 | CASEMGMT ---
Patient's was in hallway tearful and shaking. SW and floorman provided emotional support until patient's daughter arrived. Joyce LUCAS MSW
--- NOTE | 2017-11-03 10:37 | PN.ID_ITS ---
Patient Problems: Active and Suspected Problems Septic shock (Acute) Coagulopathy (Acute) DAYNA (acute kidney injury) (Acute) Abscess of right thigh (Acute) Hematuria (Acute) Subjective: Hypotensive overnight, transferred to icu, found to have RP bleed. Some mild L flank pain. No issues with R knee. No fever. - Physical Exam General: Alert, Cooperative, No apparent distress Lungs: Clear to auscultation, Normal air movement Cardiovascular: Tachycardic Abdomen: Soft, Non Tender, Non-Distended Musculoskeletal: No Tenderness to Palpation of Joints or Extremities Vital Signs Temp Pulse Resp BP Pulse Ox 97.0 F L 94 20 H 96/74 100 11/03/17 10:15 11/03/17 10:15 11/03/17 10:15 11/03/17 10:15 11/03/17 10:15 Oxygen Flow Rate (L/min) 15 Oxygen Delivery Method Non-Rebreather Weight: 91.6 kg Body Mass Index (BMI) 23.6 Intake and Output for Last 24 Hours 11/01/17 11/02/17 11/03/17 23:59 23:59 23:59 Intake Total 2751 / 2751 1659 / 1659 800 / 800 Output Total 1125 / 1125 500 / 500 Balance 1626 / 1626 1159 / 1159 800 / 800 Laboratory Tests Past 24 Hrs 10/31/17 10/31/17 10/31/17 11:00 11:00 22:45 WBC RBC Hgb Hct MCV MCH MCHC RDW RDW Differential Plt Count MPV Immature Gran % (Auto) Neut % (Auto) Lymph % (Auto) [place] % (Auto) Eos % (Auto) Baso % (Auto) Absolute Neuts (auto) Absolute Lymphs (auto) Total Counted Differential Comment Diff Path Review Hypochromasia Anisocytosis Microcytosis Eos Smear Total Cells 14 PT INR Sodium Potassium Chloride Carbon Dioxide Anion Gap BUN Creatinine Estim Creat Clear Calc Est GFR (MDRD) Af Amer Est GFR (MDRD) Non-Af BUN/Creatinine Ratio Glucose Calcium Total Bilirubin AST ALT Alkaline Phosphatase Total Protein Albumin Globulin Albumin/Globulin Ratio DARIELA Screen Negative c-ANCA Antibody 1:40 H Atypical p-ANCA <1:20 p-ANCA Antibody <1:20 Blood Type Antibody Screen Crossmatch 11/03/17 11/03/17 11/03/17 03:45 03:45 03:45 WBC 16.6 H RBC 2.09 L Hgb 5.4 L* Hct 16.9 L MCV 80.9 MCH 25.8 L MCHC 32.0 RDW 20.2 H RDW Differential 59.6 H Plt Count 179 MPV 10.5 Immature Gran % (Auto) 0.600 Neut % (Auto) 47.5 Lymph % (Auto) 36.6 [place] % (Auto) 12.7 H Eos % (Auto) 1.5 Baso % (Auto) 1.1 H Absolute Neuts (auto) 7.9 H Absolute Lymphs (auto) 6.07 H Total Counted Not Reportable Differential Comment SCAN Diff Path Review May foll Hypochromasia 2+ Anisocytosis 2+ Microcytosis 2+ Eos Smear Total Cells PT 66.7 H INR 7.8 H* Sodium 146 H Potassium 4.6 Chloride 112 H Carbon Dioxide 20.0 L Anion Gap 14 BUN 28 H Creatinine 2.32 H Estim Creat Clear Calc 40.84 Est GFR (MDRD) Af Amer 38 L Est GFR (MDRD) Non-Af 31 L BUN/Creatinine Ratio 12.1 Glucose 115 H Calcium 8.5 Total Bilirubin 9.70 H AST 284 H ALT 428 H Alkaline Phosphatase 474 H Total Protein 6.8 Albumin 1.3 L Globulin 5.5 H Albumin/Globulin Ratio 0.2 L DARIELA Screen c-ANCA Antibody Atypical p-ANCA p-ANCA Antibody Blood Type Antibody Screen Crossmatch 11/03/17 04:55 WBC RBC Hgb Hct MCV MCH MCHC RDW RDW Differential Plt Count MPV Immature Gran % (Auto) Neut % (Auto) Lymph % (Auto) [place] % (Auto) Eos % (Auto) Baso % (Auto) Absolute Neuts (auto) Absolute Lymphs (auto) Total Counted Differential Comment Diff Path Review Hypochromasia Anisocytosis Microcytosis Eos Smear Total Cells PT INR Sodium Potassium Chloride Carbon Dioxide Anion Gap BUN Creatinine Estim Creat Clear Calc Est GFR (MDRD) Af Amer Est GFR (MDRD) Non-Af BUN/Creatinine Ratio Glucose Calcium Total Bilirubin AST ALT Alkaline Phosphatase Total Protein Albumin Globulin Albumin/Globulin Ratio DARIELA Screen c-ANCA Antibody Atypical p-ANCA p-ANCA Antibody Blood Type A POSITIVE Antibody Screen NEGATIVE Crossmatch See Detail Medical Necessity - Tobacco Use Smoking Status: Never smoker Route of nutrition/ use of supplements: [] Nutritional Intake: [] IV Site: [] [place] Catheter: [] - Assessment/Plan Antibiotics: [] Assessment/Plan: [] Active and Suspected Problems Septic shock (Acute) Coagulopathy (Acute) DAYNA (acute kidney injury) (Acute) Abscess of right thigh (Acute) Hematuria (Acute) R knee PJI - knee stable off of abx. Moved to icu due to RP bleed with hypotension. Will follow
--- NOTE | 2017-11-03 11:16 | PN.RENAL_ITS ---
Patient Problems: Active and Suspected Problems Septic shock (Acute) Coagulopathy (Acute) DAYNA (acute kidney injury) (Acute) Abscess of right thigh (Acute) Hematuria (Acute) Subjective: Pt was transferred back to ICU yesterday for hypotension, severe anemia, left flank pain and large RP bleeding. Pt was given RBC and FFP. BP is better this am. Pt is being transferred to [facility] - Physical Exam General: Alert, Oriented x3 HEENT: Atraumatic Oral: Moist Mucosa Neck: Supple, No JVD Lungs: Clear to auscultation Cardiovascular: Regular rate, Regular Rhythm, Normal S1, Normal S2 Abdomen: Bowel Sounds Present, Tender Extremities: Edema Musculoskeletal: No Tenderness to Palpation of Joints or Extremities Neurological: Cranial nerves II-XII grossly intact, Neuro grossly intact Vital Signs Temp Pulse Resp BP Pulse Ox 97.0 F L 92 21 H 103/60 100 11/03/17 10:30 11/03/17 10:30 11/03/17 10:30 11/03/17 10:30 11/03/17 10:30 Oxygen Flow Rate (L/min) 15 Oxygen Delivery Method Non-Rebreather Weight: 91.6 kg Body Mass Index (BMI) 23.6 Intake and Output for Last 24 Hours 11/01/17 11/02/17 11/03/17 23:59 23:59 23:59 Intake Total 2751 / 2751 1659 / 1659 1000 / 1000 Output Total 1125 / 1125 500 / 500 Balance 1626 / 1626 1159 / 1159 1000 / 1000 Laboratory Tests Past 24 Hrs 10/31/17 10/31/17 10/31/17 11:00 11:00 22:45 WBC RBC Hgb Hct MCV MCH MCHC RDW RDW Differential Plt Count MPV Immature Gran % (Auto) Neut % (Auto) Lymph % (Auto) [place] % (Auto) Eos % (Auto) Baso % (Auto) Absolute Neuts (auto) Absolute Lymphs (auto) Total Counted Differential Comment Diff Path Review Hypochromasia Anisocytosis Microcytosis Eos Smear Total Cells 14 PT INR Sodium Potassium Chloride Carbon Dioxide Anion Gap BUN Creatinine Estim Creat Clear Calc Est GFR (MDRD) Af Amer Est GFR (MDRD) Non-Af BUN/Creatinine Ratio Glucose Calcium Total Bilirubin AST ALT Alkaline Phosphatase Total Protein Albumin Globulin Albumin/Globulin Ratio DARIELA Screen Negative c-ANCA Antibody 1:40 H Atypical p-ANCA <1:20 p-ANCA Antibody <1:20 Blood Type Antibody Screen Crossmatch 11/03/17 11/03/17 11/03/17 03:45 03:45 03:45 WBC 16.6 H RBC 2.09 L Hgb 5.4 L* Hct 16.9 L MCV 80.9 MCH 25.8 L MCHC 32.0 RDW 20.2 H RDW Differential 59.6 H Plt Count 179 MPV 10.5 Immature Gran % (Auto) 0.600 Neut % (Auto) 47.5 Lymph % (Auto) 36.6 [place] % (Auto) 12.7 H Eos % (Auto) 1.5 Baso % (Auto) 1.1 H Absolute Neuts (auto) 7.9 H Absolute Lymphs (auto) 6.07 H Total Counted Not Reportable Differential Comment SCAN Diff Path Review May foll Hypochromasia 2+ Anisocytosis 2+ Microcytosis 2+ Eos Smear Total Cells PT 66.7 H INR 7.8 H* Sodium 146 H Potassium 4.6 Chloride 112 H Carbon Dioxide 20.0 L Anion Gap 14 BUN 28 H Creatinine 2.32 H Estim Creat Clear Calc 40.84 Est GFR (MDRD) Af Amer 38 L Est GFR (MDRD) Non-Af 31 L BUN/Creatinine Ratio 12.1 Glucose 115 H Calcium 8.5 Total Bilirubin 9.70 H AST 284 H ALT 428 H Alkaline Phosphatase 474 H Total Protein 6.8 Albumin 1.3 L Globulin 5.5 H Albumin/Globulin Ratio 0.2 L DARIELA Screen c-ANCA Antibody Atypical p-ANCA p-ANCA Antibody Blood Type Antibody Screen Crossmatch 11/03/17 04:55 WBC RBC Hgb Hct MCV MCH MCHC RDW RDW Differential Plt Count MPV Immature Gran % (Auto) Neut % (Auto) Lymph % (Auto) [place] % (Auto) Eos % (Auto) Baso % (Auto) Absolute Neuts (auto) Absolute Lymphs (auto) Total Counted Differential Comment Diff Path Review Hypochromasia Anisocytosis Microcytosis Eos Smear Total Cells PT INR Sodium Potassium Chloride Carbon Dioxide Anion Gap BUN Creatinine Estim Creat Clear Calc Est GFR (MDRD) Af Amer Est GFR (MDRD) Non-Af BUN/Creatinine Ratio Glucose Calcium Total Bilirubin AST ALT Alkaline Phosphatase Total Protein Albumin Globulin Albumin/Globulin Ratio DARIELA Screen c-ANCA Antibody Atypical p-ANCA p-ANCA Antibody Blood Type A POSITIVE Antibody Screen NEGATIVE Crossmatch See Detail Medical Necessity - Tobacco Use Smoking Status: Never smoker Assessment/Plan All Active Problems Fever with exanthematous rash (Acute) Septic shock (Acute) Coagulopathy (Acute) DAYNA (acute kidney injury) (Acute) Abscess of right thigh (Acute) Hematuria (Acute) 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 knee joint (Resolved) Atrial fibrillation with RVR (Resolved) Acute cystitis (Resolved) Severe sepsis (Resolved) 1-Acute kidney injury. Patient has normal creatinine at baseline. Acute kidney injury is most probably from ischemic ATN. Less likely AIN because the fist UA did not show RBC and or WBC in the urine. Creatinine peaked at 2.7 mg/dL 10/30. Cr improved to 1.8 mg/dL on 11/02. Cr started to g up again. Cr today is 2.2 mg/dL . this is most probably from hemodynamic instability. Pt remains non oliguric. Please keep MAP > 65. No need of STEREOPLOTTER OPERATOR today. Continue accurate I/O charting Might use lasix PRN for edema if he is hemodynamically stable 2-hematuria .CT showed blood in the left renal collecting system. most probably from high INR. Continue bladder irrigation as per urology team recs 3- Proteinuria: Pro/Cr 3 g. Most probably related to hematuria. Will repeat the ratio when hematuria resolves 4-skin rash/impaired LFTs. 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 Patient is receiving IV Solu-Medrol. off Abx AST and ALT are trending down. INR and TB are still elevated Pt needs GI input. Pt is being transferred to [facility] where GI physician will see him 5-Retroperitoneal bleeding with severe anemia and hemodynamic instability. due to coagulopathy . received FFP and RBC. BP is stable now. Keep MPA >65 D/W Dr. Moeller and Dr. Mac Please do not hesitate to call me with any question at my cell phone Mary Medina MD
--- NOTE | 2017-11-03 11:18 | PCM.PN.INT ---
Subjective: The patient was seen and examined at the bedside this morning. Events from the last 24 hours have been reviewed. The patient is currently afebrile, hemodynamically stable and maintaining appropriate oxygen saturations on a nonrebreather mask currently. The patient was noted to decompensate clinically overnight with worsening acute blood loss anemia, with a hemoglobin this morning of 5.4 g/dL. The patient continues to be coagulopathic with an elevated INR to 7.8. Creatinine also increased. A stat CT abdomen/pelvis was obtained this morning which revealed a large left retroperitoneal hematoma. The patient was noted to be hypotensive and was subsequently transferred back to the medical intensive care unit. He received 2 units of packed red blood cells and is currently receiving an infusion of FFP. Objective: The patient's most recent lab work, culture data and imaging studies have all been personally reviewed. Infectious workup remains negative to date. Repeat gallbladder ultrasound completed on November 01 revealed a thickened gallbladder wall with a small amount of pericholecystic fluid and mild hepatomegaly with a mild degree of fatty infiltration of the liver. General: Alert, Cooperative, Lethargic, - - Ill in appearance. HEENT: Atraumatic, PERRLA, Normocephalic, - - Scleral jaundice present Oral: Moist Mucosa Neck: Supple, No Nodes, Trachea Midline Lungs: No rhonchi, No wheeze, Diminished, Rales Cardiovascular: Regular rate, Regular Rhythm, Normal S1, Normal S2, No murmurs Abdomen: Bowel Sounds Present, Soft, Tender Extremities: No clubbing, No cyanosis, Edema Skin: - - No significant change from that previously noted. Musculoskeletal: No Muscle Wasting Lymphatic: No Cervical, Supraclavicular, or Inguinal Adenopathy Neurological: Neuro grossly intact Psych/Mental Status: Flat Affect Vital Signs Temp Pulse Resp BP Pulse Ox 97.7 F L 97 17 105/68 100 11/03/17 11:12 11/03/17 11:12 11/03/17 11:12 11/03/17 11:12 11/03/17 11:12 Oxygen Flow Rate (L/min) 15 Oxygen Delivery Method Non-Rebreather Weight: 201 lb 15.095 oz Body Mass Index (BMI) 23.6 Intake and Output for Last 24 Hours 11/01/17 11/02/17 11/03/17 23:59 23:59 23:59 Intake Total 2751 / 2751 1659 / 1659 1000 / 1000 Output Total 1125 / 1125 500 / 500 Balance 1626 / 1626 1159 / 1159 1000 / 1000 Labs (Last 48 Hours) 10/31/17 10/31/17 10/31/17 11:00 11:00 22:45 WBC RBC Hgb Hct MCV MCH MCHC RDW RDW Differential Plt Count MPV Immature Gran % (Auto) Neut % (Auto) Lymph % (Auto) [place] % (Auto) Eos % (Auto) Baso % (Auto) Absolute Neuts (auto) Absolute Lymphs (auto) Total Counted Differential Comment Diff Path Review Hypochromasia Anisocytosis Microcytosis Eos Smear Total Cells 14 PT INR Sodium Potassium Chloride Carbon Dioxide Anion Gap BUN Creatinine Estim Creat Clear Calc Est GFR (MDRD) Af Amer Est GFR (MDRD) Non-Af BUN/Creatinine Ratio Glucose Calcium Total Bilirubin AST ALT Alkaline Phosphatase Total Protein Albumin Globulin Albumin/Globulin Ratio DARIELA Screen Negative c-ANCA Antibody 1:40 H Atypical p-ANCA <1:20 p-ANCA Antibody <1:20 Blood Type Antibody Screen Crossmatch 11/02/17 11/02/17 11/02/17 05:40 05:40 05:40 WBC 14.8 H RBC 2.76 L Hgb 7.2 L Hct 22.2 L MCV 80.4 MCH 26.1 L MCHC 32.4 RDW 19.5 H RDW Differential 57.2 H Plt Count 134 L MPV 10.8 Immature Gran % (Auto) 0.300 Neut % (Auto) 47.2 Lymph % (Auto) 37.3 [place] % (Auto) 8.7 Eos % (Auto) 4.4 Baso % (Auto) 2.1 H Absolute Neuts (auto) 7.0 Absolute Lymphs (auto) 5.51 H Total Counted Not Reportable Differential Comment Diff Path Review Hypochromasia Anisocytosis Microcytosis Eos Smear Total Cells PT 78.3 H INR 9.6 H* Sodium 146 H Potassium 4.1 Chloride 112 H Carbon Dioxide 24.0 Anion Gap 10 BUN 23 H Creatinine 1.87 H Estim Creat Clear Calc 50.67 Est GFR (MDRD) Af Amer 48 L Est GFR (MDRD) Non-Af 40 L BUN/Creatinine Ratio 12.3 Glucose 115 H Calcium 8.3 L Total Bilirubin 9.50 H AST 566 H ALT 585 H Alkaline Phosphatase 467 H Total Protein 6.9 Albumin 1.4 L Globulin 5.5 H Albumin/Globulin Ratio 0.3 L DARIELA Screen c-ANCA Antibody Atypical p-ANCA p-ANCA Antibody Blood Type Antibody Screen Crossmatch 11/03/17 11/03/17 11/03/17 03:45 03:45 03:45 WBC 16.6 H RBC 2.09 L Hgb 5.4 L* Hct 16.9 L MCV 80.9 MCH 25.8 L MCHC 32.0 RDW 20.2 H RDW Differential 59.6 H Plt Count 179 MPV 10.5 Immature Gran % (Auto) 0.600 Neut % (Auto) 47.5 Lymph % (Auto) 36.6 [place] % (Auto) 12.7 H Eos % (Auto) 1.5 Baso % (Auto) 1.1 H Absolute Neuts (auto) 7.9 H Absolute Lymphs (auto) 6.07 H Total Counted Not Reportable Differential Comment SCAN Diff Path Review May foll Hypochromasia 2+ Anisocytosis 2+ Microcytosis 2+ Eos Smear Total Cells PT 66.7 H INR 7.8 H* Sodium 146 H Potassium 4.6 Chloride 112 H Carbon Dioxide 20.0 L Anion Gap 14 BUN 28 H Creatinine 2.32 H Estim Creat Clear Calc 40.84 Est GFR (MDRD) Af Amer 38 L Est GFR (MDRD) Non-Af 31 L BUN/Creatinine Ratio 12.1 Glucose 115 H Calcium 8.5 Total Bilirubin 9.70 H AST 284 H ALT 428 H Alkaline Phosphatase 474 H Total Protein 6.8 Albumin 1.3 L Globulin 5.5 H Albumin/Globulin Ratio 0.2 L DARIELA Screen c-ANCA Antibody Atypical p-ANCA p-ANCA Antibody Blood Type Antibody Screen Crossmatch 11/03/17 04:55 WBC RBC Hgb Hct MCV MCH MCHC RDW RDW Differential Plt Count MPV Immature Gran % (Auto) Neut % (Auto) Lymph % (Auto) [place] % (Auto) Eos % (Auto) Baso % (Auto) Absolute Neuts (auto) Absolute Lymphs (auto) Total Counted Differential Comment Diff Path Review Hypochromasia Anisocytosis Microcytosis Eos Smear Total Cells PT INR Sodium Potassium Chloride Carbon Dioxide Anion Gap BUN Creatinine Estim Creat Clear Calc Est GFR (MDRD) Af Amer Est GFR (MDRD) Non-Af BUN/Creatinine Ratio Glucose Calcium Total Bilirubin AST ALT Alkaline Phosphatase Total Protein Albumin Globulin Albumin/Globulin Ratio DARIELA Screen c-ANCA Antibody Atypical p-ANCA p-ANCA Antibody Blood Type A POSITIVE Antibody Screen NEGATIVE Crossmatch See Detail Clinical Impression(s) from Imaging Studies Chest X-Ray 10/28/17 19:51 IMPRESSION: Decreased inspiratory effort with bibasilar atelectasis. The study is otherwise unchanged. Electronically Signed: Frantz Paula DO at 20:07 EDT Tel [phone], Service support , Lower Extremity CT 10/28/17 19:52 IMPRESSION: 1. Right total knee arthroplasty. 2. Abscess which appears to involve the suprapatellar space and extends outward along the vastus medialis musculature. There is associated periosteal reaction on the femur without evidence of fracture or cortical disruption. Electronically Signed: Frantz Paula DO at 21:26 EDT Tel [phone], Service support , Gallbladder Ultrasound 10/28/17 20:42 IMPRESSION: 1. Mild hepatomegaly. This appears unchanged from prior study. 2. No evidence for gallbladder and biliary ductal abnormality. 3. Stable column of Hector within the right kidney. Electronically Signed: Frantz Paula DO at 21:32 EDT Tel [phone], Service support , Gallbladder Ultrasound 11/01/17 07:11 IMPRESSION: Thickened gallbladder wall with a small amount of pericholecystic fluid. Mild hepatomegaly and mild degree of fatty infiltration of the liver. Minimal amount of perihepatic fluid. Tiny right pleural effusion. Electronically Signed: Froylan Sims MD at 12:34 EDT Tel [phone], Service support , Abdomen CT 11/03/17 06:15 IMPRESSION: Large left retroperitoneal hematoma as described. Findings suggest a lumbar blood within the collecting system of the left kidney. Ascites. Diffuse bladder wall thickening. Bilateral pleural effusions with bibasilar atelectasis and/or infiltration. Electronically Signed: Froylan Sims MD at 8:44 EDT Tel [phone], Service support , Medical Necessity - Tobacco Use Smoking Status: Never smoker Assessment/Plan All Active Problems Fever with exanthematous rash (Acute) Septic shock (Acute) Coagulopathy (Acute) DAYNA (acute kidney injury) (Acute) Abscess of right thigh (Acute) Hematuria (Acute) 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 knee joint (Resolved) Atrial fibrillation with RVR (Resolved) Acute cystitis (Resolved) Severe sepsis (Resolved) RECOMMENDATIONS: 1. Continue transfusion of blood products as ordered. 2. Place appropriate large-bore peripheral IV access. 3. Vitamin K already given. FFP pending. 4. Continue steroids as ordered. 5. Awaiting transfer to tertiary care facility, given newly diagnosed retroperitoneal bleed. IMPRESSIONS: 1. Septic shock versus systemic drug reaction with multisystem involvement The patient was on treatment with IV antibiotics on an outpatient basis due to a right thigh abscess. However, culture data has been negative to date. The patient had been treated with vancomycin, Zyvox and doxycycline and reportedly developed a drug reaction to both vancomycin and Zyvox. The patient was transiently on vasopressor support. His antibiotics were transitioned to Zosyn and doxycycline on admission to the hospital. However, the patient had evidence of a desquamating rash concerning for a possible hypersensitivity reaction like DRESS vs SJS/TEN. Although he has stabilized from a hemodynamic perspective, the patient continued to have significant peripheral eosinophilia and worsening hepatitis and renal insufficiency. At this time, given the lack of culture data, his antibiotics were discontinued and the patient was placed on IV steroids. He had improved clinically, with the exception of worsening hyperbilirubinemia. A repeat gallbladder ultrasound was completed yesterday and revealed a thickened gallbladder wall with a small amount of pericholecystic fluid. The patient was evaluated by surgery without plans for any additional workup. 2. Acute blood loss anemia secondary to retroperitoneal bleed in the setting of coagulopathic state The patient underwent a stat CT abdomen/pelvis earlier this morning which revealed evidence of a retroperitoneal bleed. The patient's hemoglobin fell from 7.2 g/dL to 5.4 g/dL this morning. Despite this, he has remained hemodynamically stable. He is currently receiving transfusion of blood products, including packed red blood cells and fresh frozen plasma. Will place appropriate peripheral large bore IV access. There is a pending transfer already in process to the [facility]. The patient will continue to be monitored in the ICU setting until arrival of the transfer team. 3. Acute hepatitis Unclear etiology at this time. Although the patient did have impaired hemodynamics, would anticipate plateau in transaminases if this is related to shock liver. Other potential etiologies include systemic involvement from a potential drug reaction. At this time, we will continue to monitor and provide supportive care. Recommend discontinuation of acetaminophen. Prior gallbladder ultrasound was unremarkable. However, given the patient's rising bilirubin level, a repeat right upper quadrant ultrasound was repeated and also found to be negative. 4. Acute kidney injury Possibly related to ischemic ATN from prior hypotension. Alternatively, given the patient's significant eosinophilia, acute interstitial nephritis is a possibility. The patient's creatinine has improved with stabilization of hemodynamics. Urine output is appropriate. No indication for renal replacement therapy. 5. Factor V Leiden with history of PE/DVT with supratherapeutic INR On Coumadin therapy at baseline. Supratherapeutic INR on presentation likely secondary to ongoing sepsis, antibiotics and fever. Continue to monitor INR daily. This note was generated with [employer] dictation software. It may contain incorrect words, spelling, and punctuation that were not noted in checking the note before signing. Code Visit Inpatient E&M: [id number] [facility] L3
--- NOTE | 2017-11-03 11:21 | PN_ITS ---
Subjective: The patient was seen and examined at the bedside this morning. Events from the last 24 hours have been reviewed. The patient is currently afebrile, hemodynamically stable and maintaining appropriate oxygen saturations on a nonrebreather mask currently. The patient was noted to decompensate clinically overnight with worsening acute blood loss anemia, with a hemoglobin this morning of 5.4 g/dL. The patient continues to be coagulopathic with an elevated INR to 7.8. Creatinine also increased. A stat CT abdomen/pelvis was obtained this morning which revealed a large left retroperitoneal hematoma. The patient was noted to be hypotensive and was subsequently transferred back to the medical intensive care unit. He received 2 units of packed red blood cells and is currently receiving an infusion of FFP. Objective: The patient's most recent lab work, culture data and imaging studies have all been personally reviewed. Infectious workup remains negative to date. Repeat gallbladder ultrasound completed on November 01 revealed a thickened gallbladder wall with a small amount of pericholecystic fluid and mild hepatomegaly with a mild degree of fatty infiltration of the liver. General: Alert, Cooperative, Lethargic, - - Ill in appearance. HEENT: Atraumatic, PERRLA, Normocephalic, - - Scleral jaundice present Oral: Moist Mucosa Neck: Supple, No Nodes, Trachea Midline Lungs: No rhonchi, No wheeze, Diminished, Rales Cardiovascular: Regular rate, Regular Rhythm, Normal S1, Normal S2, No murmurs Abdomen: Bowel Sounds Present, Soft, Tender Extremities: No clubbing, No cyanosis, Edema Skin: - - No significant change from that previously noted. Musculoskeletal: No Muscle Wasting Lymphatic: No Cervical, Supraclavicular, or Inguinal Adenopathy Neurological: Neuro grossly intact Psych/Mental Status: Flat Affect Vital Signs Temp Pulse Resp BP Pulse Ox 97.7 F L 97 17 105/68 100 11/03/17 11:12 11/03/17 11:12 11/03/17 11:12 11/03/17 11:12 11/03/17 11:12 Oxygen Flow Rate (L/min) 15 Oxygen Delivery Method Non-Rebreather Weight: 201 lb 15.095 oz Body Mass Index (BMI) 23.6 Intake and Output for Last 24 Hours 11/01/17 11/02/17 11/03/17 23:59 23:59 23:59 Intake Total 2751 / 2751 1659 / 1659 1000 / 1000 Output Total 1125 / 1125 500 / 500 Balance 1626 / 1626 1159 / 1159 1000 / 1000 Labs (Last 48 Hours) 10/31/17 10/31/17 10/31/17 11:00 11:00 22:45 WBC RBC Hgb Hct MCV MCH MCHC RDW RDW Differential Plt Count MPV Immature Gran % (Auto) Neut % (Auto) Lymph % (Auto) [place] % (Auto) Eos % (Auto) Baso % (Auto) Absolute Neuts (auto) Absolute Lymphs (auto) Total Counted Differential Comment Diff Path Review Hypochromasia Anisocytosis Microcytosis Eos Smear Total Cells 14 PT INR Sodium Potassium Chloride Carbon Dioxide Anion Gap BUN Creatinine Estim Creat Clear Calc Est GFR (MDRD) Af Amer Est GFR (MDRD) Non-Af BUN/Creatinine Ratio Glucose Calcium Total Bilirubin AST ALT Alkaline Phosphatase Total Protein Albumin Globulin Albumin/Globulin Ratio DARIELA Screen Negative c-ANCA Antibody 1:40 H Atypical p-ANCA <1:20 p-ANCA Antibody <1:20 Blood Type Antibody Screen Crossmatch 11/02/17 11/02/17 11/02/17 05:40 05:40 05:40 WBC 14.8 H RBC 2.76 L Hgb 7.2 L Hct 22.2 L MCV 80.4 MCH 26.1 L MCHC 32.4 RDW 19.5 H RDW Differential 57.2 H Plt Count 134 L MPV 10.8 Immature Gran % (Auto) 0.300 Neut % (Auto) 47.2 Lymph % (Auto) 37.3 [place] % (Auto) 8.7 Eos % (Auto) 4.4 Baso % (Auto) 2.1 H Absolute Neuts (auto) 7.0 Absolute Lymphs (auto) 5.51 H Total Counted Not Reportable Differential Comment Diff Path Review Hypochromasia Anisocytosis Microcytosis Eos Smear Total Cells PT 78.3 H INR 9.6 H* Sodium 146 H Potassium 4.1 Chloride 112 H Carbon Dioxide 24.0 Anion Gap 10 BUN 23 H Creatinine 1.87 H Estim Creat Clear Calc 50.67 Est GFR (MDRD) Af Amer 48 L Est GFR (MDRD) Non-Af 40 L BUN/Creatinine Ratio 12.3 Glucose 115 H Calcium 8.3 L Total Bilirubin 9.50 H AST 566 H ALT 585 H Alkaline Phosphatase 467 H Total Protein 6.9 Albumin 1.4 L Globulin 5.5 H Albumin/Globulin Ratio 0.3 L DARIELA Screen c-ANCA Antibody Atypical p-ANCA p-ANCA Antibody Blood Type Antibody Screen Crossmatch 11/03/17 11/03/17 11/03/17 03:45 03:45 03:45 WBC 16.6 H RBC 2.09 L Hgb 5.4 L* Hct 16.9 L MCV 80.9 MCH 25.8 L MCHC 32.0 RDW 20.2 H RDW Differential 59.6 H Plt Count 179 MPV 10.5 Immature Gran % (Auto) 0.600 Neut % (Auto) 47.5 Lymph % (Auto) 36.6 [place] % (Auto) 12.7 H Eos % (Auto) 1.5 Baso % (Auto) 1.1 H Absolute Neuts (auto) 7.9 H Absolute Lymphs (auto) 6.07 H Total Counted Not Reportable Differential Comment SCAN Diff Path Review May foll Hypochromasia 2+ Anisocytosis 2+ Microcytosis 2+ Eos Smear Total Cells PT 66.7 H INR 7.8 H* Sodium 146 H Potassium 4.6 Chloride 112 H Carbon Dioxide 20.0 L Anion Gap 14 BUN 28 H Creatinine 2.32 H Estim Creat Clear Calc 40.84 Est GFR (MDRD) Af Amer 38 L Est GFR (MDRD) Non-Af 31 L BUN/Creatinine Ratio 12.1 Glucose 115 H Calcium 8.5 Total Bilirubin 9.70 H AST 284 H ALT 428 H Alkaline Phosphatase 474 H Total Protein 6.8 Albumin 1.3 L Globulin 5.5 H Albumin/Globulin Ratio 0.2 L DARIELA Screen c-ANCA Antibody Atypical p-ANCA p-ANCA Antibody Blood Type Antibody Screen Crossmatch 11/03/17 04:55 WBC RBC Hgb Hct MCV MCH MCHC RDW RDW Differential Plt Count MPV Immature Gran % (Auto) Neut % (Auto) Lymph % (Auto) [place] % (Auto) Eos % (Auto) Baso % (Auto) Absolute Neuts (auto) Absolute Lymphs (auto) Total Counted Differential Comment Diff Path Review Hypochromasia Anisocytosis Microcytosis Eos Smear Total Cells PT INR Sodium Potassium Chloride Carbon Dioxide Anion Gap BUN Creatinine Estim Creat Clear Calc Est GFR (MDRD) Af Amer Est GFR (MDRD) Non-Af BUN/Creatinine Ratio Glucose Calcium Total Bilirubin AST ALT Alkaline Phosphatase Total Protein Albumin Globulin Albumin/Globulin Ratio DARIELA Screen c-ANCA Antibody Atypical p-ANCA p-ANCA Antibody Blood Type A POSITIVE Antibody Screen NEGATIVE Crossmatch See Detail Clinical Impression(s) from Imaging Studies Chest X-Ray 10/28/17 19:51 IMPRESSION: Decreased inspiratory effort with bibasilar atelectasis. The study is otherwise unchanged. Electronically Signed: Frantz Paula DO at 20:07 EDT Tel [phone], Service support , Lower Extremity CT 10/28/17 19:52 IMPRESSION: 1. Right total knee arthroplasty. 2. Abscess which appears to involve the suprapatellar space and extends outward along the vastus medialis musculature. There is associated periosteal reaction on the femur without evidence of fracture or cortical disruption. Electronically Signed: Frantz Paula DO at 21:26 EDT Tel [phone], Service support , Gallbladder Ultrasound 10/28/17 20:42 IMPRESSION: 1. Mild hepatomegaly. This appears unchanged from prior study. 2. No evidence for gallbladder and biliary ductal abnormality. 3. Stable column of Hector within the right kidney. Electronically Signed: Frantz Paula DO at 21:32 EDT Tel [phone], Service support , Gallbladder Ultrasound 11/01/17 07:11 IMPRESSION: Thickened gallbladder wall with a small amount of pericholecystic fluid. Mild hepatomegaly and mild degree of fatty infiltration of the liver. Minimal amount of perihepatic fluid. Tiny right pleural effusion. Electronically Signed: Froylan Sims MD at 12:34 EDT Tel [phone], Service support , Abdomen CT 11/03/17 06:15 IMPRESSION: Large left retroperitoneal hematoma as described. Findings suggest a lumbar blood within the collecting system of the left kidney. Ascites. Diffuse bladder wall thickening. Bilateral pleural effusions with bibasilar atelectasis and/or infiltration. Electronically Signed: Froylan Sims MD at 8:44 EDT Tel [phone], Service support , Medical Necessity - Tobacco Use Smoking Status: Never smoker Assessment/Plan All Active Problems Fever with exanthematous rash (Acute) Septic shock (Acute) Coagulopathy (Acute) DAYNA (acute kidney injury) (Acute) Abscess of right thigh (Acute) Hematuria (Acute) 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 knee joint (Resolved) Atrial fibrillation with RVR (Resolved) Acute cystitis (Resolved) Severe sepsis (Resolved) RECOMMENDATIONS: 1. Continue transfusion of blood products as ordered. 2. Place appropriate large-bore peripheral IV access. 3. Vitamin K already given. FFP pending. 4. Continue steroids as ordered. 5. Awaiting transfer to tertiary care facility, given newly diagnosed retroperitoneal bleed. IMPRESSIONS: 1. Septic shock versus systemic drug reaction with multisystem involvement The patient was on treatment with IV antibiotics on an outpatient basis due to a right thigh abscess. However, culture data has been negative to date. The patient had been treated with vancomycin, Zyvox and doxycycline and reportedly developed a drug reaction to both vancomycin and Zyvox. The patient was transiently on vasopressor support. His antibiotics were transitioned to Zosyn and doxycycline on admission to the hospital. However, the patient had evidence of a desquamating rash concerning for a possible hypersensitivity reaction like DRESS vs SJS/TEN. Although he has stabilized from a hemodynamic perspective, the patient continued to have significant peripheral eosinophilia and worsening hepatitis and renal insufficiency. At this time, given the lack of culture data, his antibiotics were discontinued and the patient was placed on IV steroids. He had improved clinically, with the exception of worsening hyperbilirubinemia. A repeat gallbladder ultrasound was completed yesterday and revealed a thickened gallbladder wall with a small amount of pericholecystic fluid. The patient was evaluated by surgery without plans for any additional workup. 2. Acute blood loss anemia secondary to retroperitoneal bleed in the setting of coagulopathic state The patient underwent a stat CT abdomen/pelvis earlier this morning which revealed evidence of a retroperitoneal bleed. The patient's hemoglobin fell from 7.2 g/dL to 5.4 g/dL this morning. Despite this, he has remained hemodynamically stable. He is currently receiving transfusion of blood products , including packed red blood cells and fresh frozen plasma. Will place appropriate peripheral large bore IV access. There is a pending transfer already in process to the [facility]. The patient will continue to be monitored in the ICU setting until arrival of the transfer team. 3. Acute hepatitis Unclear etiology at this time. Although the patient did have impaired hemodynamics, would anticipate plateau in transaminases if this is related to shock liver. Other potential etiologies include systemic involvement from a potential drug reaction. At this time, we will continue to monitor and provide supportive care. Recommend discontinuation of acetaminophen. Prior gallbladder ultrasound was unremarkable. However, given the patient's rising bilirubin level, a repeat right upper quadrant ultrasound was repeated and also found to be negative. 4. Acute kidney injury Possibly related to ischemic ATN from prior hypotension. Alternatively, given the patient's significant eosinophilia, acute interstitial nephritis is a possibility. The patient's creatinine has improved with stabilization of hemodynamics. Urine output is appropriate. No indication for renal replacement therapy. 5. Factor V Leiden with history of PE/DVT with supratherapeutic INR On Coumadin therapy at baseline. Supratherapeutic INR on presentation likely secondary to ongoing sepsis, antibiotics and fever. Continue to monitor INR daily. This note was generated with [employer] dictation software. It may contain incorrect words, spelling, and punctuation that were not noted in checking the note before signing. Code Visit Inpatient E&M: [id number] [facility] L3
--- NOTE | 2017-11-03 13:07 | NURSING ---
Report called to [facility]. JG Willams received a detailed report. Belongings sent with family. Pt left our facility at 1220 with mobile ICU.
--- NOTE | 2017-11-03 13:27 | DS.PCM_ITS ---
Discharge Date and Diagnosis Date of Admission: 10/28/17 Date of Discharge: 11/03/17 - Primary Discharge Diagnosis DRESS synrome Acute liver failure with coagulopathy septic shock due to thigh abscess - Secondary Discharge Diagnosis Chronic Problems Factor V Leiden (Chronic) Elevated LFTs (Chronic) Anemia (Chronic) Status post total right knee replacement (Chronic) History of pulmonary embolism (Chronic) History of DVT (deep vein thrombosis) (Chronic) Hospital Course and Treatment Imaging Results: 11/03/17 06:15 CT Abd [Abdomen/Pel W ORAL Cont Only] [CT] Urgent Diagnostic Data Chest X-Ray 10/28/17 19:51 IMPRESSION: Decreased inspiratory effort with bibasilar atelectasis. The study is otherwise unchanged. Electronically Signed: Frantz Paula DO at 20:07 EDT Tel [phone], Service support , Lower Extremity CT 10/28/17 19:52 IMPRESSION: 1. Right total knee arthroplasty. 2. Abscess which appears to involve the suprapatellar space and extends outward along the vastus medialis musculature. There is associated periosteal reaction on the femur without evidence of fracture or cortical disruption. Electronically Signed: Frantz Paula DO at 21:26 EDT Tel [phone], Service support , Gallbladder Ultrasound 11/01/17 07:11 IMPRESSION: Thickened gallbladder wall with a small amount of pericholecystic fluid. Mild hepatomegaly and mild degree of fatty infiltration of the liver. Minimal amount of perihepatic fluid. Tiny right pleural effusion. Electronically Signed: Froylan Sims MD at 12:34 EDT Tel [phone], Service support , Abdomen CT 11/03/17 06:15 IMPRESSION: Large left retroperitoneal hematoma as described. Findings suggest a lumbar blood within the collecting system of the left kidney. Ascites. Diffuse bladder wall thickening. Bilateral pleural effusions with bibasilar atelectasis and/or infiltration. Electronically Signed: Froylan Sims MD at 8:44 EDT Tel [phone], Service support , Laboratory Tests 10/28/17 10/28/17 10/28/17 19:15 19:15 19:15 WBC 23.2 H RBC 3.65 L Hgb 9.5 L Hct 29.1 L MCV 79.7 L MCH 26.0 L MCHC 32.6 RDW 19.0 H RDW Differential 55.2 H Plt Count 166 MPV 10.7 Immature Gran % (Auto) Neut % (Auto) Not Reportable Lymph % (Auto) [place] % (Auto) Eos % (Auto) Baso % (Auto) Absolute Neuts (auto) 13.2 H Absolute Lymphs (auto) 4.41 Total Counted 100 Neutrophils % (Manual) 56 Band Neutrophils % 1 Lymphocytes % (Manual) 19 Monocytes % (Manual) 1 Eosinophils % (Manual) 23 H Differential Comment SCANNED Diff Path Review Reviewed Smudge Cells 1+ H Platelet Estimate ADEQUATE Hypochromasia 2+ Anisocytosis 2+ Microcytosis 1+ Eos Smear Total Cells PT > 120.0 H INR > 19.5 H* APTT 174.8 H* Sodium 138 Potassium 4.7 Chloride 102 Carbon Dioxide 27.0 Anion Gap 9 BUN 34 H Creatinine 2.27 H Estim Creat Clear Calc 41.74 Est GFR (MDRD) Af Amer 39 L Est GFR (MDRD) Non-Af 32 L BUN/Creatinine Ratio 15.0 Glucose 77 Lactic Acid Calcium 7.9 L Total Bilirubin 2.60 H Direct Bilirubin AST 694 H ALT 485 H Alkaline Phosphatase 770 H Ammonia Lactate Dehydrogenase Total Creatine Kinase 22 L Troponin I Total Protein 7.4 Albumin 1.7 L Globulin 5.7 H Albumin/Globulin Ratio 0.3 L Urine Color Urine Clarity Urine pH Ur Specific [place] Urine Protein Urine Glucose (UA) Urine Ketones Urine Occult Blood Urine Nitrite Urine Bilirubin Urine Urobilinogen Ur Leukocyte Esterase Urine RBC Urine WBC Ur Squamous Epith Cells Amorphous Sediment Urine Bacteria Urine Mucus U Random Total Protein Urine Creatinine Protein/Creatinin Ratio Acetaminophen DARIELA Screen c-ANCA Antibody Atypical p-ANCA p-ANCA Antibody Hepatitis A IgM Ab Hepatitis A Ab Total Hep Bs Antigen Hep B Core Total Ab Hep B Core IgM Ab Hepatitis C Ab Confirm Hepatitis C Comment Miscellaneous Test POC Glucose Blood Type A1 Antigen Typing Rho(D) Type Antibody Screen Crossmatch 10/28/17 10/28/17 10/28/17 19:15 20:40 21:37 WBC RBC Hgb Hct MCV MCH MCHC RDW RDW Differential Plt Count MPV Immature Gran % (Auto) Neut % (Auto) Lymph % (Auto) [place] % (Auto) Eos % (Auto) Baso % (Auto) Absolute Neuts (auto) Absolute Lymphs (auto) Total Counted Neutrophils % (Manual) Band Neutrophils % Lymphocytes % (Manual) Monocytes % (Manual) Eosinophils % (Manual) Differential Comment Diff Path Review Smudge Cells Platelet Estimate Hypochromasia Anisocytosis Microcytosis Eos Smear Total Cells PT > 120.0 H INR > 19.5 H* APTT 184.5 H* Sodium Potassium Chloride Carbon Dioxide Anion Gap BUN Creatinine Estim Creat Clear Calc Est GFR (MDRD) Af Amer Est GFR (MDRD) Non-Af BUN/Creatinine Ratio Glucose Lactic Acid 2.1 H Calcium Total Bilirubin Direct Bilirubin AST ALT Alkaline Phosphatase Ammonia Lactate Dehydrogenase Total Creatine Kinase Troponin I Total Protein Albumin Globulin Albumin/Globulin Ratio Urine Color [place] Urine Clarity Clear Urine pH 7.0 Ur Specific [place] 1.010 Urine Protein 30 H Urine Glucose (UA) Normal Urine Ketones 5 H Urine Occult Blood 150 H Urine Nitrite Negative Urine Bilirubin Negative Urine Urobilinogen 4 H Ur Leukocyte Esterase 25 H Urine RBC 10-25 SEEN Urine WBC 5-10 SEEN Ur Squamous Epith Cells 0-5 SEEN Amorphous Sediment Urine Bacteria 2+ Urine Mucus 0 SEEN U Random Total Protein Urine Creatinine Protein/Creatinin Ratio Acetaminophen DARIELA Screen c-ANCA Antibody Atypical p-ANCA p-ANCA Antibody Hepatitis A IgM Ab Hepatitis A Ab Total Hep Bs Antigen Hep B Core Total Ab Hep B Core IgM Ab Hepatitis C Ab Confirm Hepatitis C Comment Miscellaneous Test POC Glucose Blood Type A1 Antigen Typing Rho(D) Type Antibody Screen Crossmatch 10/28/17 10/28/17 10/28/17 21:37 21:37 21:37 WBC RBC Hgb Hct MCV MCH MCHC RDW RDW Differential Plt Count MPV Immature Gran % (Auto) Neut % (Auto) Lymph % (Auto) [place] % (Auto) Eos % (Auto) Baso % (Auto) Absolute Neuts (auto) Absolute Lymphs (auto) Total Counted Neutrophils % (Manual) Band Neutrophils % Lymphocytes % (Manual) Monocytes % (Manual) Eosinophils % (Manual) Differential Comment Diff Path Review Smudge Cells Platelet Estimate Hypochromasia Anisocytosis Microcytosis Eos Smear Total Cells PT INR APTT Sodium Potassium Chloride Carbon Dioxide Anion Gap BUN Creatinine Estim Creat Clear Calc Est GFR (MDRD) Af Amer Est GFR (MDRD) Non-Af BUN/Creatinine Ratio Glucose Lactic Acid Calcium Total Bilirubin Direct Bilirubin AST ALT Alkaline Phosphatase Ammonia Lactate Dehydrogenase Total Creatine Kinase Troponin I Total Protein Albumin Globulin Albumin/Globulin Ratio Urine Color Urine Clarity Urine pH Ur Specific [place] Urine Protein Urine Glucose (UA) Urine Ketones Urine Occult Blood Urine Nitrite Urine Bilirubin Urine Urobilinogen Ur Leukocyte Esterase Urine RBC Urine WBC Ur Squamous Epith Cells Amorphous Sediment Urine Bacteria Urine Mucus U Random Total Protein Urine Creatinine Protein/Creatinin Ratio Acetaminophen DARIELA Screen c-ANCA Antibody Atypical p-ANCA p-ANCA Antibody Hepatitis A IgM Ab Hepatitis A Ab Total Hep Bs Antigen Hep B Core Total Ab Hep B Core IgM Ab Hepatitis C Ab Confirm Hepatitis C Comment Miscellaneous Test POC Glucose Blood Type TNP A POSITIVE A1 Antigen Typing Rho(D) Type Antibody Screen Cancelled Crossmatch 10/28/17 10/28/17 10/29/17 21:37 21:37 00:35 WBC RBC Hgb Hct MCV MCH MCHC RDW RDW Differential Plt Count MPV Immature Gran % (Auto) Neut % (Auto) Lymph % (Auto) [place] % (Auto) Eos % (Auto) Baso % (Auto) Absolute Neuts (auto) Absolute Lymphs (auto) Total Counted Neutrophils % (Manual) Band Neutrophils % Lymphocytes % (Manual) Monocytes % (Manual) Eosinophils % (Manual) Differential Comment Diff Path Review Smudge Cells Platelet Estimate Hypochromasia Anisocytosis Microcytosis Eos Smear Total Cells PT INR APTT Sodium Potassium Chloride Carbon Dioxide Anion Gap BUN Creatinine Estim Creat Clear Calc Est GFR (MDRD) Af Amer Est GFR (MDRD) Non-Af BUN/Creatinine Ratio Glucose Lactic Acid 1.8 Calcium Total Bilirubin Direct Bilirubin AST ALT Alkaline Phosphatase Ammonia Lactate Dehydrogenase Total Creatine Kinase Troponin I Total Protein Albumin Globulin Albumin/Globulin Ratio Urine Color Urine Clarity Urine pH Ur Specific [place] Urine Protein Urine Glucose (UA) Urine Ketones Urine Occult Blood Urine Nitrite Urine Bilirubin Urine Urobilinogen Ur Leukocyte Esterase Urine RBC Urine WBC Ur Squamous Epith Cells Amorphous Sediment Urine Bacteria Urine Mucus U Random Total Protein Urine Creatinine Protein/Creatinin Ratio Acetaminophen DARIELA Screen c-ANCA Antibody Atypical p-ANCA p-ANCA Antibody Hepatitis A IgM Ab Hepatitis A Ab Total Hep Bs Antigen Hep B Core Total Ab Hep B Core IgM Ab Hepatitis C Ab Confirm Hepatitis C Comment Miscellaneous Test POC Glucose Blood Type Cancelled A1 Antigen Typing Cancelled Rho(D) Type Cancelled Antibody Screen NEGATIVE Cancelled Crossmatch See Detail 10/29/17 10/29/17 10/29/17 03:55 04:35 04:35 WBC 19.3 H RBC 3.12 L Hgb 8.1 L Hct 25.2 L MCV 80.8 MCH 26.0 L MCHC 32.1 RDW 19.3 H RDW Differential 57.0 H Plt Count 152 MPV 10.2 Immature Gran % (Auto) Neut % (Auto) Lymph % (Auto) [place] % (Auto) Eos % (Auto) Baso % (Auto) Absolute Neuts (auto) Absolute Lymphs (auto) Total Counted Neutrophils % (Manual) Band Neutrophils % Lymphocytes % (Manual) Monocytes % (Manual) Eosinophils % (Manual) Differential Comment Diff Path Review Smudge Cells Platelet Estimate Hypochromasia Anisocytosis Microcytosis Eos Smear Total Cells PT INR APTT Sodium 142 Potassium 4.5 Chloride 106 Carbon Dioxide 28.0 Anion Gap 8 BUN 34 H Creatinine 2.35 H Estim Creat Clear Calc 40.32 Est GFR (MDRD) Af Amer 37 L Est GFR (MDRD) Non-Af 31 L BUN/Creatinine Ratio 14.5 Glucose 76 Lactic Acid Calcium 7.2 L Total Bilirubin Direct Bilirubin AST ALT Alkaline Phosphatase Ammonia Lactate Dehydrogenase Total Creatine Kinase Troponin I 0.024 Total Protein Albumin Globulin Albumin/Globulin Ratio Urine Color YELLOW Urine Clarity Clear Urine pH 5.0 Ur Specific [place] 1.015 Urine Protein 30 H Urine Glucose (UA) Normal Urine Ketones Negative Urine Occult Blood 150 H Urine Nitrite Negative Urine Bilirubin Negative Urine Urobilinogen 1 H Ur Leukocyte Esterase 25 H Urine RBC 0 SEEN Urine WBC 0-5 SEEN Ur Squamous Epith Cells 0-5 SEEN Amorphous Sediment R Urine Bacteria RARE Urine Mucus 1+ U Random Total Protein Urine Creatinine Protein/Creatinin Ratio Acetaminophen DARIELA Screen c-ANCA Antibody Atypical p-ANCA p-ANCA Antibody Hepatitis A IgM Ab Hepatitis A Ab Total Hep Bs Antigen Hep B Core Total Ab Hep B Core IgM Ab Hepatitis C Ab Confirm Hepatitis C Comment Miscellaneous Test POC Glucose Blood Type A1 Antigen Typing Rho(D) Type Antibody Screen Crossmatch 10/29/17 10/29/17 10/29/17 04:35 04:35 05:00 WBC RBC Hgb Hct MCV MCH MCHC RDW RDW Differential Plt Count MPV Immature Gran % (Auto) Neut % (Auto) Lymph % (Auto) [place] % (Auto) Eos % (Auto) Baso % (Auto) Absolute Neuts (auto) Absolute Lymphs (auto) Total Counted Neutrophils % (Manual) Band Neutrophils % Lymphocytes % (Manual) Monocytes % (Manual) Eosinophils % (Manual) Differential Comment Diff Path Review Smudge Cells Platelet Estimate Hypochromasia Anisocytosis Microcytosis Eos Smear Total Cells PT 30.6 H INR 2.9 APTT 63.7 H Sodium Potassium Chloride Carbon Dioxide Anion Gap BUN Creatinine Estim Creat Clear Calc Est GFR (MDRD) Af Amer Est GFR (MDRD) Non-Af BUN/Creatinine Ratio Glucose Lactic Acid Calcium Total Bilirubin Direct Bilirubin AST ALT Alkaline Phosphatase Ammonia Lactate Dehydrogenase 645 H Total Creatine Kinase Troponin I Total Protein Albumin Globulin Albumin/Globulin Ratio Urine Color Urine Clarity Urine pH Ur Specific [place] Urine Protein Urine Glucose (UA) Urine Ketones Urine Occult Blood Urine Nitrite Urine Bilirubin Urine Urobilinogen Ur Leukocyte Esterase Urine RBC Urine WBC Ur Squamous Epith Cells Amorphous Sediment Urine Bacteria Urine Mucus U Random Total Protein Urine Creatinine Protein/Creatinin Ratio Acetaminophen DARIELA Screen c-ANCA Antibody Atypical p-ANCA p-ANCA Antibody Hepatitis A IgM Ab Negative Hepatitis A Ab Total Positive H Hep Bs Antigen Negative Hep B Core Total Ab Negative Hep B Core IgM Ab Negative Hepatitis C Ab Confirm 0.6 Hepatitis C Comment Comment Miscellaneous Test POC Glucose Blood Type A1 Antigen Typing Rho(D) Type Antibody Screen Crossmatch 10/29/17 10/29/17 10/29/17 07:30 11:15 11:15 WBC RBC Hgb Hct MCV MCH MCHC RDW RDW Differential Plt Count MPV Immature Gran % (Auto) Neut % (Auto) Lymph % (Auto) [place] % (Auto) Eos % (Auto) Baso % (Auto) Absolute Neuts (auto) Absolute Lymphs (auto) Total Counted Neutrophils % (Manual) Band Neutrophils % Lymphocytes % (Manual) Monocytes % (Manual) Eosinophils % (Manual) Differential Comment Diff Path Review Smudge Cells Platelet Estimate Hypochromasia Anisocytosis Microcytosis Eos Smear Total Cells PT INR APTT Sodium Potassium Chloride Carbon Dioxide Anion Gap BUN Creatinine Estim Creat Clear Calc Est GFR (MDRD) Af Amer Est GFR (MDRD) Non-Af BUN/Creatinine Ratio Glucose Lactic Acid Calcium Total Bilirubin 3.10 H Direct Bilirubin 2.28 H AST 1016 H ALT 484 H Alkaline Phosphatase 640 H Ammonia Lactate Dehydrogenase Total Creatine Kinase Troponin I 0.018 0.025 Total Protein 6.4 Albumin 1.5 L Globulin 4.9 H Albumin/Globulin Ratio Urine Color Urine Clarity Urine pH Ur Specific [place] Urine Protein Urine Glucose (UA) Urine Ketones Urine Occult Blood Urine Nitrite Urine Bilirubin Urine Urobilinogen Ur Leukocyte Esterase Urine RBC Urine WBC Ur Squamous Epith Cells Amorphous Sediment Urine Bacteria Urine Mucus U Random Total Protein Urine Creatinine Protein/Creatinin Ratio Acetaminophen DARIELA Screen c-ANCA Antibody Atypical p-ANCA p-ANCA Antibody Hepatitis A IgM Ab Hepatitis A Ab Total Hep Bs Antigen Hep B Core Total Ab Hep B Core IgM Ab Hepatitis C Ab Confirm Hepatitis C Comment Miscellaneous Test POC Glucose Blood Type A1 Antigen Typing Rho(D) Type Antibody Screen Crossmatch 10/29/17 10/29/17 10/30/17 16:00 17:40 04:50 WBC 16.3 H RBC 2.53 L Hgb 8.1 L 6.6 L Hct 24.0 L 20.1 L MCV 79.4 L MCH 26.1 L MCHC 32.8 RDW 19.4 H RDW Differential 56.6 H Plt Count 125 L MPV 9.7 Immature Gran % (Auto) 0.400 Neut % (Auto) 37.9 L Lymph % (Auto) 31.0 [place] % (Auto) 4.8 Eos % (Auto) 24.1 H Baso % (Auto) 1.8 H Absolute Neuts (auto) 6.2 Absolute Lymphs (auto) 5.07 H Total Counted Not Reportable Neutrophils % (Manual) Band Neutrophils % Lymphocytes % (Manual) Monocytes % (Manual) Eosinophils % (Manual) Differential Comment SCANNED Diff Path Review Reviewed Smudge Cells Platelet Estimate Hypochromasia Anisocytosis Microcytosis Eos Smear Total Cells PT 30.5 H INR 2.9 APTT Sodium Potassium Chloride Carbon Dioxide Anion Gap BUN Creatinine Estim Creat Clear Calc Est GFR (MDRD) Af Amer Est GFR (MDRD) Non-Af BUN/Creatinine Ratio Glucose Lactic Acid Calcium Total Bilirubin Direct Bilirubin AST ALT Alkaline Phosphatase Ammonia Lactate Dehydrogenase Total Creatine Kinase Troponin I Total Protein Albumin Globulin Albumin/Globulin Ratio Urine Color Urine Clarity Urine pH Ur Specific [place] Urine Protein Urine Glucose (UA) Urine Ketones Urine Occult Blood Urine Nitrite Urine Bilirubin Urine Urobilinogen Ur Leukocyte Esterase Urine RBC Urine WBC Ur Squamous Epith Cells Amorphous Sediment Urine Bacteria Urine Mucus U Random Total Protein Urine Creatinine Protein/Creatinin Ratio Acetaminophen DARIELA Screen c-ANCA Antibody Atypical p-ANCA p-ANCA Antibody Hepatitis A IgM Ab Hepatitis A Ab Total Hep Bs Antigen Hep B Core Total Ab Hep B Core IgM Ab Hepatitis C Ab Confirm Hepatitis C Comment Miscellaneous Test POC Glucose Blood Type A1 Antigen Typing Rho(D) Type Antibody Screen Crossmatch 10/30/17 10/30/17 10/30/17 04:50 04:50 06:45 WBC RBC Hgb Hct MCV MCH MCHC RDW RDW Differential Plt Count MPV Immature Gran % (Auto) Neut % (Auto) Lymph % (Auto) [place] % (Auto) Eos % (Auto) Baso % (Auto) Absolute Neuts (auto) Absolute Lymphs (auto) Total Counted Neutrophils % (Manual) Band Neutrophils % Lymphocytes % (Manual) Monocytes % (Manual) Eosinophils % (Manual) Differential Comment Diff Path Review Smudge Cells Platelet Estimate Hypochromasia Anisocytosis Microcytosis Eos Smear Total Cells PT 38.2 H INR 3.9 H* APTT Sodium 143 Potassium 4.2 Chloride 110 H Carbon Dioxide 21.0 Anion Gap 12 BUN 37 H Creatinine 2.72 H Estim Creat Clear Calc 34.84 Est GFR (MDRD) Af Amer 31 L Est GFR (MDRD) Non-Af 26 L BUN/Creatinine Ratio 13.6 Glucose 61 L Lactic Acid Calcium 6.9 L Total Bilirubin 4.10 H Direct Bilirubin AST 1723 H ALT 659 H Alkaline Phosphatase 559 H Ammonia Lactate Dehydrogenase Total Creatine Kinase Troponin I Total Protein 5.5 L Albumin 1.2 L Globulin 4.3 H Albumin/Globulin Ratio 0.3 L Urine Color Urine Clarity Urine pH Ur Specific [place] Urine Protein Urine Glucose (UA) Urine Ketones Urine Occult Blood Urine Nitrite Urine Bilirubin Urine Urobilinogen Ur Leukocyte Esterase Urine RBC Urine WBC Ur Squamous Epith Cells Amorphous Sediment Urine Bacteria Urine Mucus U Random Total Protein Urine Creatinine Protein/Creatinin Ratio Acetaminophen DARIELA Screen c-ANCA Antibody Atypical p-ANCA p-ANCA Antibody Hepatitis A IgM Ab Hepatitis A Ab Total Hep Bs Antigen Hep B Core Total Ab Hep B Core IgM Ab Hepatitis C Ab Confirm Hepatitis C Comment Miscellaneous Test POC Glucose 68 L Blood Type A1 Antigen Typing Rho(D) Type Antibody Screen Crossmatch 10/30/17 10/30/17 10/30/17 11:23 17:52 21:35 WBC RBC Hgb Hct MCV MCH MCHC RDW RDW Differential Plt Count MPV Immature Gran % (Auto) Neut % (Auto) Lymph % (Auto) [place] % (Auto) Eos % (Auto) Baso % (Auto) Absolute Neuts (auto) Absolute Lymphs (auto) Total Counted Neutrophils % (Manual) Band Neutrophils % Lymphocytes % (Manual) Monocytes % (Manual) Eosinophils % (Manual) Differential Comment Diff Path Review Smudge Cells Platelet Estimate Hypochromasia Anisocytosis Microcytosis Eos Smear Total Cells PT INR APTT Sodium Potassium Chloride Carbon Dioxide Anion Gap BUN Creatinine Estim Creat Clear Calc Est GFR (MDRD) Af Amer Est GFR (MDRD) Non-Af BUN/Creatinine Ratio Glucose Lactic Acid Calcium Total Bilirubin Direct Bilirubin AST ALT Alkaline Phosphatase Ammonia Lactate Dehydrogenase Total Creatine Kinase Troponin I Total Protein Albumin Globulin Albumin/Globulin Ratio Urine Color Urine Clarity Urine pH Ur Specific [place] Urine Protein Urine Glucose (UA) Urine Ketones Urine Occult Blood Urine Nitrite Urine Bilirubin Urine Urobilinogen Ur Leukocyte Esterase Urine RBC Urine WBC Ur Squamous Epith Cells Amorphous Sediment Urine Bacteria Urine Mucus U Random Total Protein Urine Creatinine Protein/Creatinin Ratio Acetaminophen DARIELA Screen c-ANCA Antibody Atypical p-ANCA p-ANCA Antibody Hepatitis A IgM Ab Hepatitis A Ab Total Hep Bs Antigen Hep B Core Total Ab Hep B Core IgM Ab Hepatitis C Ab Confirm Hepatitis C Comment Miscellaneous Test POC Glucose 98 118 H 102 Blood Type A1 Antigen Typing Rho(D) Type Antibody Screen Crossmatch 10/31/17 10/31/17 10/31/17 04:50 04:50 04:50 WBC 23.1 H RBC 3.34 L Hgb 8.9 L Hct 27.1 L MCV 81.1 MCH 26.6 L MCHC 32.8 RDW 18.7 H RDW Differential 55.6 H Plt Count 125 L MPV 10.2 Immature Gran % (Auto) 0.400 Neut % (Auto) 31.7 L Lymph % (Auto) 25.5 [place] % (Auto) 4.8 Eos % (Auto) 36.0 H Baso % (Auto) 1.6 H Absolute Neuts (auto) 7.3 Absolute Lymphs (auto) 5.89 H Total Counted Not Reportable Neutrophils % (Manual) Band Neutrophils % Lymphocytes % (Manual) Monocytes % (Manual) Eosinophils % (Manual) Differential Comment SCANNED Diff Path Review Reviewed Smudge Cells Platelet Estimate Hypochromasia Anisocytosis Microcytosis Eos Smear Total Cells PT 42.0 H INR 4.4 H* APTT Sodium 145 Potassium 4.5 Chloride 112 H Carbon Dioxide 21.0 Anion Gap 12 BUN 33 H Creatinine 2.57 H Estim Creat Clear Calc 36.87 Est GFR (MDRD) Af Amer 33 L Est GFR (MDRD) Non-Af 28 L BUN/Creatinine Ratio 12.8 Glucose 63 L Lactic Acid Calcium 7.9 L Total Bilirubin Direct Bilirubin AST ALT Alkaline Phosphatase Ammonia Lactate Dehydrogenase Total Creatine Kinase Troponin I Total Protein Albumin Globulin Albumin/Globulin Ratio Urine Color Urine Clarity Urine pH Ur Specific [place] Urine Protein Urine Glucose (UA) Urine Ketones Urine Occult Blood Urine Nitrite Urine Bilirubin Urine Urobilinogen Ur Leukocyte Esterase Urine RBC Urine WBC Ur Squamous Epith Cells Amorphous Sediment Urine Bacteria Urine Mucus U Random Total Protein Urine Creatinine Protein/Creatinin Ratio Acetaminophen DARIELA Screen c-ANCA Antibody Atypical p-ANCA p-ANCA Antibody Hepatitis A IgM Ab Hepatitis A Ab Total Hep Bs Antigen Hep B Core Total Ab Hep B Core IgM Ab Hepatitis C Ab Confirm Hepatitis C Comment Miscellaneous Test POC Glucose Blood Type A1 Antigen Typing Rho(D) Type Antibody Screen Crossmatch 10/31/17 10/31/17 10/31/17 04:50 06:48 11:00 WBC RBC Hgb Hct MCV MCH MCHC RDW RDW Differential Plt Count MPV Immature Gran % (Auto) Neut % (Auto) Lymph % (Auto) [place] % (Auto) Eos % (Auto) Baso % (Auto) Absolute Neuts (auto) Absolute Lymphs (auto) Total Counted Neutrophils % (Manual) Band Neutrophils % Lymphocytes % (Manual) Monocytes % (Manual) Eosinophils % (Manual) Differential Comment Diff Path Review Smudge Cells Platelet Estimate Hypochromasia Anisocytosis Microcytosis Eos Smear Total Cells PT INR APTT Sodium Potassium Chloride Carbon Dioxide Anion Gap BUN Creatinine Estim Creat Clear Calc Est GFR (MDRD) Af Amer Est GFR (MDRD) Non-Af BUN/Creatinine Ratio Glucose Lactic Acid Calcium Total Bilirubin 6.60 H Direct Bilirubin 5.12 H AST 2034 H ALT 863 H Alkaline Phosphatase 553 H Ammonia Lactate Dehydrogenase Total Creatine Kinase Troponin I Total Protein 6.8 Albumin 1.6 L Globulin 5.2 H Albumin/Globulin Ratio Urine Color Urine Clarity Urine pH Ur Specific [place] Urine Protein Urine Glucose (UA) Urine Ketones Urine Occult Blood Urine Nitrite Urine Bilirubin Urine Urobilinogen Ur Leukocyte Esterase Urine RBC Urine WBC Ur Squamous Epith Cells Amorphous Sediment Urine Bacteria Urine Mucus U Random Total Protein Urine Creatinine Protein/Creatinin Ratio Acetaminophen 2.5 L DARIELA Screen c-ANCA Antibody Atypical p-ANCA p-ANCA Antibody Hepatitis A IgM Ab Hepatitis A Ab Total Hep Bs Antigen Hep B Core Total Ab Hep B Core IgM Ab Hepatitis C Ab Confirm Hepatitis C Comment Miscellaneous Test POC Glucose 58 L Blood Type A1 Antigen Typing Rho(D) Type Antibody Screen Crossmatch 10/31/17 10/31/17 10/31/17 11:00 11:00 16:21 WBC RBC Hgb Hct MCV MCH MCHC RDW RDW Differential Plt Count MPV Immature Gran % (Auto) Neut % (Auto) Lymph % (Auto) [place] % (Auto) Eos % (Auto) Baso % (Auto) Absolute Neuts (auto) Absolute Lymphs (auto) Total Counted Neutrophils % (Manual) Band Neutrophils % Lymphocytes % (Manual) Monocytes % (Manual) Eosinophils % (Manual) Differential Comment Diff Path Review Smudge Cells Platelet Estimate Hypochromasia Anisocytosis Microcytosis Eos Smear Total Cells PT INR APTT Sodium Potassium Chloride Carbon Dioxide Anion Gap BUN Creatinine Estim Creat Clear Calc Est GFR (MDRD) Af Amer Est GFR (MDRD) Non-Af BUN/Creatinine Ratio Glucose Lactic Acid Calcium Total Bilirubin Direct Bilirubin AST ALT Alkaline Phosphatase Ammonia Lactate Dehydrogenase Total Creatine Kinase Troponin I Total Protein Albumin Globulin Albumin/Globulin Ratio Urine Color Urine Clarity Urine pH Ur Specific [place] Urine Protein Urine Glucose (UA) Urine Ketones Urine Occult Blood Urine Nitrite Urine Bilirubin Urine Urobilinogen Ur Leukocyte Esterase Urine RBC Urine WBC Ur Squamous Epith Cells Amorphous Sediment Urine Bacteria Urine Mucus U Random Total Protein Urine Creatinine Protein/Creatinin Ratio Acetaminophen DARIELA Screen Negative c-ANCA Antibody 1:40 H Atypical p-ANCA <1:20 p-ANCA Antibody <1:20 Hepatitis A IgM Ab Hepatitis A Ab Total Hep Bs Antigen Hep B Core Total Ab Hep B Core IgM Ab Hepatitis C Ab Confirm Hepatitis C Comment Miscellaneous Test POC Glucose 102 Blood Type A1 Antigen Typing Rho(D) Type Antibody Screen Crossmatch 10/31/17 10/31/17 10/31/17 22:45 22:45 22:45 WBC RBC Hgb Hct MCV MCH MCHC RDW RDW Differential Plt Count MPV Immature Gran % (Auto) Neut % (Auto) Lymph % (Auto) [place] % (Auto) Eos % (Auto) Baso % (Auto) Absolute Neuts (auto) Absolute Lymphs (auto) Total Counted Neutrophils % (Manual) Band Neutrophils % Lymphocytes % (Manual) Monocytes % (Manual) Eosinophils % (Manual) Differential Comment Diff Path Review Smudge Cells Platelet Estimate Hypochromasia Anisocytosis Microcytosis Eos Smear Total Cells 14 PT INR APTT Sodium Potassium Chloride Carbon Dioxide Anion Gap BUN Creatinine Estim Creat Clear Calc Est GFR (MDRD) Af Amer Est GFR (MDRD) Non-Af BUN/Creatinine Ratio Glucose Lactic Acid Calcium Total Bilirubin Direct Bilirubin AST ALT Alkaline Phosphatase Ammonia Lactate Dehydrogenase Total Creatine Kinase Troponin I Total Protein Albumin Globulin Albumin/Globulin Ratio Urine Color Urine Clarity Urine pH Ur Specific [place] Urine Protein Urine Glucose (UA) Urine Ketones Urine Occult Blood Urine Nitrite Urine Bilirubin Urine Urobilinogen Ur Leukocyte Esterase Urine RBC Urine WBC Ur Squamous Epith Cells Amorphous Sediment Urine Bacteria Urine Mucus U Random Total Protein 187.4 H Urine Creatinine 61.60 Protein/Creatinin Ratio 3042 H Acetaminophen DARIELA Screen c-ANCA Antibody Atypical p-ANCA p-ANCA Antibody Hepatitis A IgM Ab Hepatitis A Ab Total Hep Bs Antigen Hep B Core Total Ab Hep B Core IgM Ab Hepatitis C Ab Confirm Hepatitis C Comment Miscellaneous Test Cancelled POC Glucose Blood Type A1 Antigen Typing Rho(D) Type Antibody Screen Crossmatch 11/01/17 11/01/17 11/01/17 04:14 04:14 04:14 WBC 15.6 H RBC 3.16 L Hgb 8.4 L Hct 25.4 L MCV 80.4 MCH 26.6 L MCHC 33.1 RDW 19.0 H RDW Differential 56.2 H Plt Count 104 L MPV 10.0 Immature Gran % (Auto) 0.300 Neut % (Auto) 49.4 Lymph % (Auto) 35.2 [place] % (Auto) 7.2 Eos % (Auto) 5.3 H Baso % (Auto) 2.6 H Absolute Neuts (auto) 7.7 Absolute Lymphs (auto) 5.48 H Total Counted Not Reportable Neutrophils % (Manual) Band Neutrophils % Lymphocytes % (Manual) Monocytes % (Manual) Eosinophils % (Manual) Differential Comment Diff Path Review Smudge Cells Platelet Estimate Hypochromasia Anisocytosis Microcytosis Eos Smear Total Cells PT 58.9 H INR 6.7 H* APTT Sodium 149 H Potassium 4.8 Chloride 115 H Carbon Dioxide 21.0 Anion Gap 13 BUN 27 H Creatinine 2.15 H Estim Creat Clear Calc 44.07 Est GFR (MDRD) Af Amer 41 L Est GFR (MDRD) Non-Af 34 L BUN/Creatinine Ratio 12.6 Glucose 79 Lactic Acid Calcium 8.3 L Total Bilirubin 8.60 H Direct Bilirubin AST 1227 H ALT 757 H Alkaline Phosphatase 475 H Ammonia Lactate Dehydrogenase Total Creatine Kinase Troponin I Total Protein 6.8 Albumin 1.4 L Globulin 5.4 H Albumin/Globulin Ratio 0.3 L Urine Color Urine Clarity Urine pH Ur Specific [place] Urine Protein Urine Glucose (UA) Urine Ketones Urine Occult Blood Urine Nitrite Urine Bilirubin Urine Urobilinogen Ur Leukocyte Esterase Urine RBC Urine WBC Ur Squamous Epith Cells Amorphous Sediment Urine Bacteria Urine Mucus U Random Total Protein Urine Creatinine Protein/Creatinin Ratio Acetaminophen DARIELA Screen c-ANCA Antibody Atypical p-ANCA p-ANCA Antibody Hepatitis A IgM Ab Hepatitis A Ab Total Hep Bs Antigen Hep B Core Total Ab Hep B Core IgM Ab Hepatitis C Ab Confirm Hepatitis C Comment Miscellaneous Test POC Glucose Blood Type A1 Antigen Typing Rho(D) Type Antibody Screen Crossmatch 11/01/17 11/02/17 11/02/17 08:28 05:40 05:40 WBC 14.8 H RBC 2.76 L Hgb 7.2 L Hct 22.2 L MCV 80.4 MCH 26.1 L MCHC 32.4 RDW 19.5 H RDW Differential 57.2 H Plt Count 134 L MPV 10.8 Immature Gran % (Auto) 0.300 Neut % (Auto) 47.2 Lymph % (Auto) 37.3 [place] % (Auto) 8.7 Eos % (Auto) 4.4 Baso % (Auto) 2.1 H Absolute Neuts (auto) 7.0 Absolute Lymphs (auto) 5.51 H Total Counted Not Reportable Neutrophils % (Manual) Band Neutrophils % Lymphocytes % (Manual) Monocytes % (Manual) Eosinophils % (Manual) Differential Comment Diff Path Review Smudge Cells Platelet Estimate Hypochromasia Anisocytosis Microcytosis Eos Smear Total Cells PT INR APTT Sodium 146 H Potassium 4.1 Chloride 112 H Carbon Dioxide 24.0 Anion Gap 10 BUN 23 H Creatinine 1.87 H Estim Creat Clear Calc 50.67 Est GFR (MDRD) Af Amer 48 L Est GFR (MDRD) Non-Af 40 L BUN/Creatinine Ratio 12.3 Glucose 115 H Lactic Acid Calcium 8.3 L Total Bilirubin 9.50 H Direct Bilirubin AST 566 H ALT 585 H Alkaline Phosphatase 467 H Ammonia 14.0 Lactate Dehydrogenase Total Creatine Kinase Troponin I Total Protein 6.9 Albumin 1.4 L Globulin 5.5 H Albumin/Globulin Ratio 0.3 L Urine Color Urine Clarity Urine pH Ur Specific [place] Urine Protein Urine Glucose (UA) Urine Ketones Urine Occult Blood Urine Nitrite Urine Bilirubin Urine Urobilinogen Ur Leukocyte Esterase Urine RBC Urine WBC Ur Squamous Epith Cells Amorphous Sediment Urine Bacteria Urine Mucus U Random Total Protein Urine Creatinine Protein/Creatinin Ratio Acetaminophen DARIELA Screen c-ANCA Antibody Atypical p-ANCA p-ANCA Antibody Hepatitis A IgM Ab Hepatitis A Ab Total Hep Bs Antigen Hep B Core Total Ab Hep B Core IgM Ab Hepatitis C Ab Confirm Hepatitis C Comment Miscellaneous Test POC Glucose Blood Type A1 Antigen Typing Rho(D) Type Antibody Screen Crossmatch 11/02/17 11/03/17 11/03/17 05:40 03:45 03:45 WBC 16.6 H RBC 2.09 L Hgb 5.4 L* Hct 16.9 L MCV 80.9 MCH 25.8 L MCHC 32.0 RDW 20.2 H RDW Differential 59.6 H Plt Count 179 MPV 10.5 Immature Gran % (Auto) 0.600 Neut % (Auto) 47.5 Lymph % (Auto) 36.6 [place] % (Auto) 12.7 H Eos % (Auto) 1.5 Baso % (Auto) 1.1 H Absolute Neuts (auto) 7.9 H Absolute Lymphs (auto) 6.07 H Total Counted Not Reportable Neutrophils % (Manual) Band Neutrophils % Lymphocytes % (Manual) Monocytes % (Manual) Eosinophils % (Manual) Differential Comment SCAN Diff Path Review May foll Smudge Cells Platelet Estimate Hypochromasia 2+ Anisocytosis 2+ Microcytosis 2+ Eos Smear Total Cells PT 78.3 H INR 9.6 H* APTT Sodium 146 H Potassium 4.6 Chloride 112 H Carbon Dioxide 20.0 L Anion Gap 14 BUN 28 H Creatinine 2.32 H Estim Creat Clear Calc 40.84 Est GFR (MDRD) Af Amer 38 L Est GFR (MDRD) Non-Af 31 L BUN/Creatinine Ratio 12.1 Glucose 115 H Lactic Acid Calcium 8.5 Total Bilirubin 9.70 H Direct Bilirubin AST 284 H ALT 428 H Alkaline Phosphatase 474 H Ammonia Lactate Dehydrogenase Total Creatine Kinase Troponin I Total Protein 6.8 Albumin 1.3 L Globulin 5.5 H Albumin/Globulin Ratio 0.2 L Urine Color Urine Clarity Urine pH Ur Specific [place] Urine Protein Urine Glucose (UA) Urine Ketones Urine Occult Blood Urine Nitrite Urine Bilirubin Urine Urobilinogen Ur Leukocyte Esterase Urine RBC Urine WBC Ur Squamous Epith Cells Amorphous Sediment Urine Bacteria Urine Mucus U Random Total Protein Urine Creatinine Protein/Creatinin Ratio Acetaminophen DARIELA Screen c-ANCA Antibody Atypical p-ANCA p-ANCA Antibody Hepatitis A IgM Ab Hepatitis A Ab Total Hep Bs Antigen Hep B Core Total Ab Hep B Core IgM Ab Hepatitis C Ab Confirm Hepatitis C Comment Miscellaneous Test POC Glucose Blood Type A1 Antigen Typing Rho(D) Type Antibody Screen Crossmatch 11/03/17 11/03/17 03:45 04:55 WBC RBC Hgb Hct MCV MCH MCHC RDW RDW Differential Plt Count MPV Immature Gran % (Auto) Neut % (Auto) Lymph % (Auto) [place] % (Auto) Eos % (Auto) Baso % (Auto) Absolute Neuts (auto) Absolute Lymphs (auto) Total Counted Neutrophils % (Manual) Band Neutrophils % Lymphocytes % (Manual) Monocytes % (Manual) Eosinophils % (Manual) Differential Comment Diff Path Review Smudge Cells Platelet Estimate Hypochromasia Anisocytosis Microcytosis Eos Smear Total Cells PT 66.7 H INR 7.8 H* APTT Sodium Potassium Chloride Carbon Dioxide Anion Gap BUN Creatinine Estim Creat Clear Calc Est GFR (MDRD) Af Amer Est GFR (MDRD) Non-Af BUN/Creatinine Ratio Glucose Lactic Acid Calcium Total Bilirubin Direct Bilirubin AST ALT Alkaline Phosphatase Ammonia Lactate Dehydrogenase Total Creatine Kinase Troponin I Total Protein Albumin Globulin Albumin/Globulin Ratio Urine Color Urine Clarity Urine pH Ur Specific [place] Urine Protein Urine Glucose (UA) Urine Ketones Urine Occult Blood Urine Nitrite Urine Bilirubin Urine Urobilinogen Ur Leukocyte Esterase Urine RBC Urine WBC Ur Squamous Epith Cells Amorphous Sediment Urine Bacteria Urine Mucus U Random Total Protein Urine Creatinine Protein/Creatinin Ratio Acetaminophen DARIELA Screen c-ANCA Antibody Atypical p-ANCA p-ANCA Antibody Hepatitis A IgM Ab Hepatitis A Ab Total Hep Bs Antigen Hep B Core Total Ab Hep B Core IgM Ab Hepatitis C Ab Confirm Hepatitis C Comment Miscellaneous Test POC Glucose Blood Type A POSITIVE A1 Antigen Typing Rho(D) Type Antibody Screen NEGATIVE Crossmatch See Detail regulatory 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 He was admitted with a complaint of fever, swelling of the legs and face, desquamating rash over his face and a bleeding, swollen tongue. On admission, he had a fever of 102.7 Fahrenheit, 3+ pitting edema of the lower extremities and INR was greater than 19 and lactate was elevated at 2.1. He was also found to be in acute renal failure with creatinine more than 2. CT of the right lower extremity showed a possible abscess with osteomyelitis. Whilst in the ED, he became profoundly hypotensive and was resuscitated with 3 L of IV fluid he was given vitamin K for the elevated INR and started on Zosyn as well as Levophed through his PICC line. He was then admitted to the ICU . Patient did have an antecedent history of a knee replacement on August 15, complicated pseudomonal UTI and a thigh abscess. Patient was started on IV levophed in the ED. she remained on Levophed in the ED and subjectively improved with no evidence of bleeding. 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 PD surgery reviewed patient and did not believe there was an indication for surgery as they did not think he really had an abscess. Nephrology was also consulted on account of AK patient was hydrated with IV fluids. Patient had an episode of hematuria as well. Daycare was thought to be due to ATN from septic shock and gradually kidney function improved slightly with initiation of IV fluid. Patient's liver enzymes were however noted to be trending up with AST and ALT going up into the thousands and total bilirubin also trending up. 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 Passenger Conductor discussed with a insurance and financial services agent in the community and conclusion was that this was likely D RES syndrome versus SJS/CANDICE and syndrome. Patient was informed that he would benefit from a referral to a tertiary facility as we did not have an in-house insurance and financial services agent here. Patient however refused transfer and said he wanted staying [facility]. Patient was started on IV steroids. Patient's AST and ALT and ALP subsequently improved after steroids were started. However his total bilirubin continued trending upwards peaking at above 9. Again, we informed patient that in light of worsening bilirubin levels , we would need to transfer him to a tertiary facility. Again, patient refused transfer and said he wanted to stay in [facility]. gallbladder ultrasound obtained showed normal distended gallbladder, with thickened gallbladder wall measuring 4.9mm and small amount of pericholecystic fluid, and fatty liver. General surgery was consulted, and did not think the patient would benefit from any invasive intervention. During patient's admission, he received 2 units of blood on account of anemia. INR remained elevated and patient received 2 doses of vitamin K to help bring down INR. On 11/03/2017, patient was noted to become very short of breath with sitting up and also complained of severe left lower quadrant pain. His hemoglobin was noted to have dropped to 5.4 from 7.2 the day before. His baseline had been around [address] urgent [address] scan of the abdomen done on 11/03/2017 showed a large left-sided retroperitoneal hematoma. Patient was emergently transfused 2 units of blood and transfuse 2 units of FFP's as well. Decision was made to urgently transfer patient to [facility] and patient was accepted in the ICU. Patient was seen and examined prior to discharge. He was on oxygen in bed and looked uncomfortable. He complained of left lower quadrant pain and said it was quite severe. Was short of breath on lying down but said whenever he sat up he became very short of breath. He denied any fever or chills, any cough or chest pain, any neuro vomiting. 12 point review of systems is otherwise negative. On examination Vital Signs Height 6 ft 2 in Weight: 201 lb 15.095 oz Weight in Pounds 201.9 lbs Pulse Ox 100 Temperature 97.7 F Pulse Rate 99 Respiratory Rate 15 Blood Pressure [BP] 111/69 Blood Pressure 116/77 Blood Pressure Position [BP] Semi-Fowlers Blood Pressure Position Semi-Fowlers General: Alert, Oriented x3, Cooperative, No apparent distress HEENT: Atraumatic, PERRLA, EOMI, Normocephalic, - - jaundiced sclera Oral: Moist Mucosa Neck: Supple, No JVD, Negative Carotid Bruits Lungs: Clear to auscultation, Normal air movement, No rhonchi, No wheeze, No rales, on oxygen Cardiovascular: Regular rate, Regular Rhythm, Normal S1, Normal S2, No murmurs Abdomen: Bowel Sounds Present, Soft, moderate tenderness in LLQ, with fullness in left lower quadrant. Mild guarding but no rebound tenderness. N Extremities: No clubbing, No cyanosis, No edema, Capillary Refill Less than 3 Seconds Skin: - - worsening jaundiced skin. Has desquamating rash over face, head and neck. Musculoskeletal: No Tenderness to Palpation of Joints or Extremities Lymphatic: No Cervical, Supraclavicular, or Inguinal Adenopathy Neurological: Cranial nerves II-XII grossly intact, Motor Exam 5/5 strength throughout Psych/Mental Status: Normal Affect, Appropriate, Alert and oriented to time, place, person, mood and affect Patient was emergently transferred to [facility] by [facility] o/a of massive retroperitoneal bleed in light of acute liver failure and severe coagulopathy. Weight Bearing Status: Weight bearing as tolerated Home Medications: Medications to take at Discharge Acetaminophen [Tylenol] 1,000 mg PO PRN PRN 08/24/17 Ferrous Sulfate [Iron] 325 mg PO BID #60 tab 08/26/17 Docusate Sodium [Colace] 100 mg PO BID 09/18/17 Warfarin [Coumadin] 8 mg PO DAILY 10/09/17 Doxycycline 100 mg PO BID 30 Days #60 cap 10/12/17 Primary Care Physician: Dc Glez MD [Primary Care Provider] - Please follow up with your Primary Care Physician in: 1 week Disposition: Acute care Hospital - [facility] ICU Minutes spent on discharge:: 50 Patient Condition:: Critical Medical Necessity - Tobacco Use Smoking Status: Never smoker Meaningful Use Info Meaningful Use Diagnoses (Choose all that apply): None applicable Code Visit Inpatient E&M: 27852 Disch Hosp
[2017-11-04 10:14] LABS: Pathologist Review Reviewed
== END 2017-11-03 12:30 | disposition short-term general hospital (02) | DRG 871 ==
LOC: ED 19:24 → ICU 23:51 → PCU 11-01 16:41 → ICU 11-03 09:15
PROVIDERS: Hospitalist; Internal Medicine; Internal Medicine Critical Care Medicine; Admitting Provider Internal Medicine; Emergency Provider Emergency Medicine; Family Provider Family Medicine; PCP Family Medicine; Visit Provider Student in an Organized Health Care Education/Training Program
DX: A41.9 Sepsis, unspecified organism (principal); R65.21 Severe sepsis with septic shock; K72.00 Acute and subacute hepatic failure without coma; K66.1 Hemoperitoneum; D68.4 Acquired coagulation factor deficiency; D68.51 Activated protein C resistance; N17.9 Acute kidney failure, unspecified; L02.415 Cutaneous abscess of right lower limb; D62 Acute posthemorrhagic anemia; D72.1 Eosinophilia; R23.4 Changes in skin texture; L27.0 Generalized skin eruption due to drugs and medicaments taken internally; T50.905A Adverse effect of unspecified drugs, medicaments and biological substances, initial encounter; Z86.718 Personal history of other venous thrombosis and embolism; Z79.01 Long term (current) use of anticoagulants; Z96.651 Presence of right artificial knee joint; Z86.711 Personal history of pulmonary embolism; R31.0 Gross hematuria
CPT/HCPCS: 36592; 71045; 73700; 74176; 76705; 80048; 80053; 80076; 80329; 81001; 82140; 82274; 82550; 82570; 82962; 83605; 83615; 84156; 84484; 85014; 85018; 85025; 85027; 85610; 85730; 86038; 86225; 86235; 86256; 86644; 86704; 86705; 86706; 86708; 86709; 86803; 86850; 86900; 86901; 86920; 86922; 87040; 87086; 87205; 87340; 87493; 93005; 97110; 97162; 97165; 97530; 97535; 97802; 99285; J7030; J7040; J7120; P9016; P9017; A4216; G0480; J3490

== ENCOUNTER → 2017-11-21 09:59 | Outpatient (CLI) | payer OTHER, SELFPAY ==
[2017-11-21 12:16] LABS: Absolute Lymphocyte Count 2.48 X10^3/ul (0.83-4.51); Absolute Neutrophil Count 7.1 X10^3/uL (2.0-7.7); Basophil% 1.6 % (0-1); Eosinophils% 16.4 % (0-5); Hematocrit 31.8 % (40-54); Hemoglobin 9.6 g/dl (13.0-16.5); Lymphocyte # 2.48 X10^3/ul (4.0); Lymphocyte % 20.3 % (19-41); Mean Corp Hgb Conc 30.2 g/gl (32-36); Mean Corpuscular Hgb 29.8 pg (27.0-32.0); Mean Corpuscular Volume 98.8 fL (80-94); Mean Platelet Vol. 11.1 fl (6.2-12.0); Monocyte% 3.3 % (0-10); Neutrophil % 58.3 % (47-70); Platelet Count 229 K/mm3 (150-450); RBC Distribution Width CV 18.2 % (11.6-14.6); RBC Distribution Width SD 64.9 fl (35.1-43.9); Red Blood Count 3.22 M/mm3 (4.6-6.2); White Blood Count 12.2 K/mm3 (4.4-11.0)
[2017-11-21 12:24] LABS: POSITIVE COUNT NO; POSITIVE DIFFERENTIAL NO; POSITIVE MORPHOLOGY NO
[2017-11-21 12:29] LABS: ALB/GLOB Ratio 0.3 RATIO (0.9-2.4); AST(SGOT) 31 U/L (15-37); Alanine Aminotransfer ALT/SGPT 33 U/L (16-61); Albumin, Serum 2.4 g/dL (3.2-5.0); Alkaline Phosphatase 228 U/L (45-117); Anion Gap 6 (5-15); BUN 22 mg/dL (7-18); BUN/Creat Ratio 13.8 RATIO (10-20); Calcium,Total 8.4 mg/dL (8.5-10.1); Chloride 107 mmol/L (98-107); Creatinine, Serum 1.59 mg/dL (0.70-1.30); EST Glomerular Filtration Rate 48 mL/min (>60); Est Glom Filt Rate - Afr Amer 58 mL/min (>60); Glucose 83 mg/dL (74-106); Potassium 3.4 mmol/L (3.5-5.1); Protein, Total 9.4 g/dL (6.4-8.2); Sodium Level 140 mmol/L (136-145)
== END ==
PROVIDERS: Family Provider Family Medicine; PCP Family Medicine; Visit Provider Family Medicine
DX: L27.0 Generalized skin eruption due to drugs and medicaments taken internally (principal); D72.1 Eosinophilia
CPT/HCPCS: 36415; 80053; 85025

== ENCOUNTER 2017-12-11 21:19 | Observation (INO) | payer OTHER, SELFPAY ==
[2017-12-11 21:20] VITALS: BP 141/66; PULSE 107; RESP 24; TEMP 37.5; O2SAT 95; BMI 22.6
[2017-12-11 21:32] VITALS: BP 109/75; PULSE 96; RESP 21; O2SAT 98
--- NOTE | 2017-12-11 21:39 | EKG12_ITS ---
Test Reason : CP Blood Pressure : / mmHG Vent. Rate : 093 BPM Atrial Rate : 093 BPM P-R Int : 142 ms QRS Dur : 084 ms QT Int : 340 ms P-R-T Axes : 041 -21 017 degrees QTc Int : 422 ms Normal sinus rhythm Leftward axis Poor R wave progression Confirmed by JENNIFER CONDON, SHAKEEL ([id number]), scientific editor JOSE CARLOS AWAD ([id number]) on 12/13/2017 11:27:14 AM Referred By: DR SHERMAN Confirmed By:SHAKEEL RODRIGUEZ MD
[2017-12-11 21:49] LABS: Absolute Lymphocyte Count 1.48 X10^3/ul (0.83-4.51); Absolute Neutrophil Count 5.8 X10^3/uL (2.0-7.7); Basophil% 1.2 % (0-1); Eosinophil# 0.28 X10^3/uL; Eosinophils% 3.3 % (0-5); Hematocrit 35.9 % (40-54); Hemoglobin 11.4 g/dl (13.0-16.5); Lymphocyte # 1.48 X10^3/ul (4.0); Lymphocyte % 17.4 % (19-41); Mean Corp Hgb Conc 31.8 g/gl (32-36); Mean Corpuscular Hgb 30.7 pg (27.0-32.0); Mean Corpuscular Volume 96.8 fL (80-94); Mean Platelet Vol. 9.9 fl (6.2-12.0); Monocyte# 0.82 X10^3/uL; Monocyte% 9.7 % (0-10); Neutrophil # 5.78 X10^3/uL (2.7-7.7); POSITIVE COUNT NO; POSITIVE DIFFERENTIAL NO; POSITIVE MORPHOLOGY NO; Platelet Count 242 K/mm3 (150-450); RBC Distribution Width SD 50.3 fl (35.1-43.9); Red Blood Count 3.71 M/mm3 (4.6-6.2); White Blood Count 8.5 K/mm3 (4.4-11.0)
--- NOTE | 2017-12-11 21:50 | RAD_ITS ---
STUDY: X-RAY CHEST REASON FOR EXAM: Male, 57 years old. Right chest pain TECHNIQUE: A single frontal view of the chest was obtained. COMPARISON: October 28, 2017 FINDINGS: The lungs are underaerated. There are patchy airspace opacities in the mid right lung. There is bibasilar atelectasis and possible minimal scarring in the left lung base. There is no demonstrated pleural abnormality. The cardiac silhouette is normal in size allowing for low volume inspiration. The mediastinum and hilar regions are unremarkable. Normal visualized pulmonary arteries. Normal visualized aortic arch and descending thoracic aorta. There are diffuse degenerative changes of the visualized spine. The visualized ribs, clavicles, and shoulders are unremarkable. There is no demonstrated abnormality of the visualized upper abdomen. RAD/Chest 1 View (Portable) IMPRESSION: Patchy opacities in the mid right lung likely represent mild focal consolidation/pneumonia. There is no obvious effusion. Electronically Signed: Caryl Arias MD at 22:39 EDT Tel Direct: [phone], Service support ,
--- NOTE | 2017-12-11 21:54 | ED.VISSUMM ---
- ER Visit Summary Date of Service: 12/11/17 Chief Complaint: Right-sided chest pain History of Present Illness: The patient is a 57 M history of recent septic shock from after having a knee replacement developed postop lower extremity infection. And a prolonged hospital stay both here and at the [facility]. Patient was on anticoagulation at one time. He is currently off of that. He has had prior DVTs and PEs. States tonight around 830 he developed right-sided chest pain. No significant shortness of breath. No hemoptysis. No chest wall trauma. Physical Examination: Vital signs are stable. Pulse ox is 98% on oxygen. Temperature 99.5. H EENT exam small bruise in the mid forehead from a recent fall. He was round reactive light. Scalp nontender. C-spine nontender. Trachea midline. No JVD. No lymphadenopathy. Lungs clear to auscultation bilaterally. Heart regular rhythm rate about 90 no murmur. Chest wall nontender. No ecchymosis or bruising. No subcu air. No crepitance. No bony deformities. Abdomen soft nontender. Normal bowel sounds no peritoneal signs. Moving all 4 extremities. Neurovascular intact. Calves nontender without edema or cords. Neurologically awake alert with no focal motor deficits. Back nontender. Test Results: EKG shows a sinus rhythm rate of 93 with no acute signs of [place] or ischemia. Chest x-ray has density on the right lateral lower aspect of the upper lung that may be pulmonary infarct versus density versus overlapping shadows.. CBC shows a white count of 8. Hemoglobin of 11 previously was 9. Electrolytes unremarkable. BUN of 12 and creatinine of 1. Normal gap. Troponin is normal. D-dimer is elevated at 16.1. I discussed this with the patient and his due to my concern for a PE, his elevated d-dimer and his now normal renal function I am been obtained a CTA of his chest. CT of the chest shows a right-sided pulmonary embolus involving the right superior pulmonary artery tract. I spoke to the radiologist about the CTA. She stated that otherwise it was a limited study due to cardiac motion artifact. Emergency Department Course and Treatment: Middle-age male recent prolonged hospitalization for sepsis. Prior history of DVT and PEs. Complaining of right-sided chest pain that is pleuritic. I am very concerned this could be recurrent pulmonary emboli. Versus other etiologies. Treatment Plan: Patient will be admitted to the hospitalist. He will need to be started on anticoagulation I will discuss what anticoagulation the hospitalist has a preference for. Patient previously did have a GI bleed while on Coumadin. Disposition: Admission Impression: Acute right-sided chest pain secondary to right pulmonary emboli Prior history of DVT and PEs. This note was generated with [email or web address] dictation software. It may contain incorrect words, spelling, and punctuation that were not noted in review of the chart prior to signing ED Disposition - Plan for ED Patient: Chief Complaint: Chest Pain Referrals: Dc Glez MD [Primary Care Provider] -
--- NOTE | 2017-12-11 21:58 | ED.DCSUM_ITS ---
- ER Visit Summary Date of Service: 12/11/17 Chief Complaint: Right-sided chest pain History of Present Illness: The patient is a 57 M history of recent septic shock from after having a knee replacement developed postop lower extremity infection. And a prolonged hospital stay both here and at the [facility]. Patient was on anticoagulation at one time. He is currently off of that. He has had prior DVTs and PEs. States tonight around 830 he developed right-sided chest pain. No significant shortness of breath. No hemoptysis. No chest wall trauma. Physical Examination: Vital signs are stable. Pulse ox is 98% on oxygen. Temperature 99.5. H EENT exam small bruise in the mid forehead from a recent fall. He was round reactive light. Scalp nontender. C-spine nontender. Trachea midline. No JVD. No lymphadenopathy. Lungs clear to auscultation bilaterally. Heart regular rhythm rate about 90 no murmur. Chest wall nontender. No ecchymosis or bruising. No subcu air. No crepitance. No bony deformities. Abdomen soft nontender. Normal bowel sounds no peritoneal signs. Moving all 4 extremities. Neurovascular intact. Calves nontender without edema or cords. Neurologically awake alert with no focal motor deficits. Back nontender. Test Results: EKG shows a sinus rhythm rate of 93 with no acute signs of [place] or ischemia. Chest x-ray has density on the right lateral lower aspect of the upper lung that may be pulmonary infarct versus density versus overlapping shadows.. CBC shows a white count of 8. Hemoglobin of 11 previously was 9. Electrolytes unremarkable. BUN of 12 and creatinine of 1. Normal gap. Troponin is normal. D-dimer is elevated at 16.1. I discussed this with the patient and his due to my concern for a PE, his elevated d-dimer and his now normal renal function I am been obtained a CTA of his chest. CT of the chest shows a right-sided pulmonary embolus involving the right superior pulmonary artery tract. I spoke to the radiologist about the CTA. She stated that otherwise it was a limited study due to cardiac motion artifact. Emergency Department Course and Treatment: Middle-age male recent prolonged hospitalization for sepsis. Prior history of DVT and PEs. Complaining of right-sided chest pain that is pleuritic. I am very concerned this could be recurrent pulmonary emboli. Versus other etiologies. Treatment Plan: Patient will be admitted to the hospitalist. He will need to be started on anticoagulation I will discuss what anticoagulation the hospitalist has a preference for. Patient previously did have a GI bleed while on Coumadin. Disposition: Admission Impression: Acute right-sided chest pain secondary to right pulmonary emboli Prior history of DVT and PEs. This note was generated with [employer] dictation software. It may contain incorrect words, spelling, and punctuation that were not noted in review of the chart prior to signing ED Disposition - Plan for ED Patient: Chief Complaint: Chest Pain Referrals: Dc Glez MD [Primary Care Provider] -
[2017-12-11 22:07] LABS: Anion Gap 7 (5-15); BUN 12 mg/dL (7-18); BUN/Creat Ratio 11.3 RATIO (10-20); Calcium,Total 8.5 mg/dL (8.5-10.1); Chloride 101 mmol/L (98-107); Creatinine, Serum 1.06 mg/dL (0.70-1.30); EST Glomerular Filtration Rate 77 mL/min (>60); Est Glom Filt Rate - Afr Amer 93 mL/min (>60); Estimated Creatinine Clearance 86.89 ml/min; Glucose 99 mg/dL (74-106); Sodium Level 135 mmol/L (136-145)
[2017-12-11 22:27] VITALS: BP 105/77; PULSE 90; RESP 25; O2SAT 100
[2017-12-11] MEDS: 0.9% Normal Saline 1,000 ML 999 ML IV (22:32)
[2017-12-11 22:52] LABS: D-Dimer Quantitative (DVT/PE) 16.14 FEU/ug/m (0.27-0.49)
--- NOTE | 2017-12-11 22:53 | ED.RN ---
DR SHERMAN MADE AWARE OF D-DIMER OF 16.14.
--- NOTE | 2017-12-11 22:54 | CT_ITS ---
STUDY: CTA CHEST REASON FOR EXAM: Male, 57 years old. Right-sided chest pain and elevated d-dimer, history of PE, DVT, currently not on thinners. RADIATION DOSAGE (If Supplied By Facility): CTDIvol = ( 15.79 ) mGy, DLP = ( 547.99 ) mGycm TECHNIQUE: The examination was performed with the intravenous administration of 75 ml of Isovue 370 contrast material. Post-processing of the angiographic images was performed, with multiplanar reformation and 3D reconstruction. There is image blurring as a result of cardiac motion. Diagnostic accuracy is severely reduced. However, there is substantial diagnostic information remaining available on this study. Individualized dose optimization techniques were used for this CT. COMPARISON: Chest x-ray 12/11/2017. Prior CT examination of the chest from 2009 are not available but were requested. FINDINGS: Normal enhancement of the main pulmonary artery and filling defect in the right right pulmonary arteries. Normal enhancement of the bilateral peripheral pulmonary arteries. There is no demonstrated pulmonary embolism. Normal thoracic aorta and visualized great vessels. There is no demonstrated aortic dissection. There is cardiomegaly. There are calcifications of the coronary arteries. Normal mediastinum. Normal hilar regions. Normal visualized trachea and bronchi. The lungs are well expanded. Peripheral airspace opacification in the right upper lobe lung periphery corresponding to the filling defects within the right superior pulmonary artery. No cavitation or effusions. There are few scattered calcified small parenchymal nodules. Normal pleura. Normal chest wall structures. There are degenerative changes of thoracic spine. Normal visualized upper abdomen. CT/CTA Chest W/WO Contrast IMPRESSION: Central right pulmonary artery filling defect including the superior pulmonary artery. The remainder of the pulmonary arteries are slightly degraded due to the cardiac motion. Other sites of pulmonary emboli cannot be verified or excluded. Airspace opacification peripheral right upper lobe corresponding to the filling defects, no cavitation seen. Early pulmonary infarcts may be present. No aneurysm, leak or arterial dissection. These findings were discussed on the telephone with Dr. Gunter at [address] [place] [address]. EST on 12/12/2017. Electronically Signed: Payton Rothman MD at 0:10 EDT , Service support ,
[2017-12-11 23:06] VITALS: BP 115/77; PULSE 82; RESP 16; O2SAT 99
[2017-12-12] VITALS (11 sets, daily range): BP systolic 121–128; BP diastolic 72–80; PULSE 84–111; RESP 16–21; TEMP 36.6–37.3; O2SAT 94–96; BMI 22.6
[2017-12-12 04:17] LABS: International Normalized Ratio 1.1; Prothrombin Time (Protime)PT. 14.6 SECONDS (11.7-14.9)
[2017-12-12 04:18] LABS: Partial Thromboplast Time 32.6 Seconds (24.1-36.2)
[2017-12-12] MEDS: Heparin Injection (Vial) 5,000 UNIT/ML VIAL 5000 UNIT IV (04:34)
[2017-12-12] MEDS: HEPARIN/D5w 25,000 UNITS 25,000 UNITS/250 ML IV.SOLN. 11 UNITS IV (04:35)
[2017-12-12] MEDS: 0.9% NaCl Peripheral Flush Adult/Peds IV ×2 (04:35→11:55)
--- NOTE | 2017-12-12 04:42 | PCM.HP.STD ---
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 He rates his pain as 3 out of 10. When his pain started it was sharp but now his pain is dull. His pain is constant and of same severity; it is nonradiating. Patient was admitted at ICU about 2 months ago but because of DRESS syndrome he was sent to [facility] where he had a complicated illness and even ended up having dialysis for 2 days. Patient was on Coumadin but his Coumadin was stopped about 6-1/2 weeks ago. Patient reported that because of the DRESS Syndrome, doctors wanted all his medications to be stopped until he is stabilized. Further he had a GI bleed and probable hematuria. Because of the reasons stated above his Coumadin was stopped. Patient denies any recent history of travel. He had a knee replacement in July of this year. He denies any shortness of breath. On presentation to the emergency department patient had severely elevated d-dimer. Chest CT showed right upper lobe airspace disease and right superior pulmonary artery embolus. Past Medical History Past Medical History (Chronic Problems): Chronic Problems Factor V Leiden (Chronic) Elevated LFTs (Chronic) Anemia (Chronic) Status post total right knee replacement (Chronic) History of pulmonary embolism (Chronic) History of DVT (deep vein thrombosis) (Chronic) Allergies Sulfa (Sulfonamide Antibiotics) Allergy (Verified 12/11/17 21:20) Unknown vancomycin Allergy (Verified 12/11/17 21:20) Fever and skin rash ceftriaxone Adverse Reaction (Verified 12/11/17 21:20) Rash linezolid Adverse Reaction (Verified 12/11/17 21:20) Rash Home Medications: Ambulatory Orders Medication Instructions Recorded Omeprazole 40 mg PO DAILY 12/11/17 Prednisone 10 mg PO DAILY 12/11/17 Surgical History: total knee arthroplasty Lives: Spouse/ Significant Other Smoking Status: Never smoker Alcohol: Occasional - *Family History Maternal History Items: - - Patient denies that her mother had any medical condition Paternal History Items: Diabetes Review of Systems Constitutional: Denies: Chills, Fever, Weight Change HEENT: Denies: Head Aches, Sinus Congestion, Sinus Drainage Cardiovascular: Reports: Chest Pain - Pain at the right breast.. Denies: Palpitations Respiratory: Denies: Cough, Shortness of breath at rest, Sputum production Gastrointestinal: Denies: Abdominal Pain, Nausea, Vomiting Genitourinary: Denies: Dysuria Musculoskeletal: Denies: Joint Pain, Joint Tenderness Skin: Denies: Rash, Wounds Neurological: Denies: Numbness, Tingling, Focal weakness Psychiatric: Denies: Anxiety, Depression, Homicidal Ideations, Suicidal Ideations Hematologic/ Lymphatic: Denies: Easy Bruising, Easy Bleeding VTE Information - Inpt Only VTE Present on Admission: Yes VTE Mechan Device Prophylaxis: None VTE Pharm Prophylaxis ordered?: No Reason prophylaxis not ordered:: Treatment Not Indicated - Patient started on heparin drip for treatment of PE - Physical Exam General: Alert, Oriented x3, Cooperative HEENT: Atraumatic, PERRLA, EOMI, Normocephalic Neck: Supple, No JVD, Negative Carotid Bruits Lungs: Clear to auscultation, Normal air movement Cardiovascular: Regular rate, No murmurs Abdomen: Bowel Sounds Present, Soft, Non Tender Extremities: No edema, Capillary Refill Less than 3 Seconds Skin: No rashes, No breakdown Musculoskeletal: No Tenderness to Palpation of Joints or Extremities Neurological: Cranial nerves II-XII grossly intact Psych/Mental Status: Normal Affect, Appropriate Vital Signs Temp Pulse Resp BP Pulse Ox 98.1 F 88 16 122/72 H 95 12/12/17 04:36 12/12/17 04:36 12/12/17 04:36 12/12/17 04:36 12/12/17 04:36 Oxygen Flow Rate (L/min) 2 Oxygen Delivery Method Room Air Weight: 79.8 kg Body Mass Index (BMI) 22.6 Laboratory Tests Past 24 Hrs 12/11/17 12/11/17 12/11/17 21:35 21:35 22:20 WBC 8.5 RBC 3.71 L Hgb 11.4 L Hct 35.9 L MCV 96.8 H MCH 30.7 MCHC 31.8 L RDW 15.0 H RDW Differential 50.3 H Plt Count 242 MPV 9.9 Immature Gran % (Auto) 0.400 Neut % (Auto) 68.0 Lymph % (Auto) 17.4 L Swain % (Auto) 9.7 Eos % (Auto) 3.3 Baso % (Auto) 1.2 H Absolute Neuts (auto) 5.8 Absolute Lymphs (auto) 1.48 Total Counted Not Reportable PT INR APTT D-Dimer Quant (PE/DVT) 16.14 H* Sodium 135 L Potassium 4.0 Chloride 101 Carbon Dioxide 27.0 Anion Gap 7 BUN 12 Creatinine 1.06 Estim Creat Clear Calc 86.89 Est GFR (MDRD) Af Amer 93 Est GFR (MDRD) Non-Af 77 BUN/Creatinine Ratio 11.3 Glucose 99 Calcium 8.5 Troponin I < 0.015 12/12/17 03:54 WBC RBC Hgb Hct MCV MCH MCHC RDW RDW Differential Plt Count MPV Immature Gran % (Auto) Neut % (Auto) Lymph % (Auto) Swain % (Auto) Eos % (Auto) Baso % (Auto) Absolute Neuts (auto) Absolute Lymphs (auto) Total Counted PT 14.6 INR 1.1 APTT 32.6 D-Dimer Quant (PE/DVT) Sodium Potassium Chloride Carbon Dioxide Anion Gap BUN Creatinine Estim Creat Clear Calc Est GFR (MDRD) Af Amer Est GFR (MDRD) Non-Af BUN/Creatinine Ratio Glucose Calcium Troponin I Assessment/Plan All Active Problems Fever with exanthematous rash (Acute) Septic shock (Acute) Coagulopathy (Acute) DAYNA (acute kidney injury) (Acute) Abscess of right thigh (Acute) Hematuria (Acute) 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 knee joint (Resolved) Atrial fibrillation with RVR (Resolved) Acute cystitis (Resolved) Severe sepsis (Resolved) The patient is a 57 year old M with a significant history of factor V Leiden deficiency with subsequent blood clot in his right knee and two blood clot in his lungs and previously on Coumadin; dress syndrome attributed to vancomycin that was started for infected right knee; who presents with pain under the right side of his breast and found to have severely elevated d-dimer; and chest CT findings of right upper lobe airspace disease and right superior pulmonary artery embolus. Acute PE Because of his history of GI bleed and probably hematuria from warfarin; heparin has been started. Echocardiogram and Doppler studies of bilateral leg. Tylenol as needed for pain. Patient patient is hemodynamically stable. Patient can be probably discharged home after home regimen is worked out with patient. History of DRESS syndrome On prednisone taper 10 mg on 12/12/2017 after which he will be started on 5 mg daily; continue. GERD Omeprazole continued. DVT prophylaxis Not indicated in the setting of heparin for acute PE. Code Visit OBSV E&M: 16688 Initial observation care L3
[2017-12-12] MEDS: predniSONE 10 MG Tablet PO (09:12)
--- NOTE | 2017-12-12 11:22 | ECHOD_ITS ---
Reason For Study: Emboli Procedure This was a 2D Doppler, Color Flow transthoracic echocardiogram. The exam was of adequate technical quality. Exam performed portable in patient room. Left Ventricle Normal LV size. Left ventricular systolic function is normal. The estimated ejection fraction is 70 %. No evidence for diastolic dysfunction. No regional wall motion abnormalities noted. Right Ventricle Normal RV size. Normal systolic function. Atria The left atrium is mildly enlarged. Normal right atrium. No doppler evidence for ASD. Bubble contrast study negative for right to left interatrial shunt. Mitral Valve There is no mitral annular calcification. Normal mitral valve. Trivial mitral valve insufficiency. Tricuspid Valve Normal tricuspid valve. Trivial tricuspid valve insufficiency. Right ventricular systolic pressure estimated to be 30 mmHg. Aortic Valve Trisinus/trileaflet aortic valve. Normal aortic valve. Pulmonic Valve The pulmonic valve is not well visualized. Trivial pulmonic valve insufficiency. Great Vessels Normal sized aortic root. Pericardium/Pleural No pericardial effusion. Medication Performed a rapid injection of agitated mix of 9 cc saline and 1cc air to assess for atrial septal defect. MMode/2D Measurements & Calculations LVIDd: 5.3 cm IVSd: 1.0 cm Ao root diam: 2.9 cm LVIDs: 3.3 cm LVPWd: 1.0 cm RVDd: 4.5 cm FS: 38.9 % LAV(MOD-bp): 60.0 ml LVAd ap4: 32.8 cm2 SV(MOD-sp4): 70.2 ml LAV(MOD-bp) Indexed: 29.2 ml/m2 EDV(MOD-sp4): 105.7 ml LAV(MOD-sp2): 53.5 ml EDV(sp4-el): 105.8 ml LAV(MOD-sp4): 56.9 ml LVAs ap4: 16.6 cm2 ESV(MOD-sp4): 35.5 ml ESV(sp4-el): 34.4 ml EF(MOD-sp4): 66.4 % EF(sp4-el): 67.5 % SV(sp4-el): 71.4 ml LA A4 area: 21.2 cm2 RA A4 area: 19.7 cm2 Doppler Measurements & Calculations MV E max michael: 57.1 cm/sec Lat Peak E' Michael: 19.6 cm/sec Med Peak E' Michael: 7.6 cm/sec MV A max michael: 62.0 cm/sec E/E' lat: 2.9 E/E' med: 7.5 MV E/A: 0.92 Ao V2 max: 155.8 cm/sec LV V1 max: 121.1 cm/sec PA V2 max: 130.8 cm/sec Ao max P.7 mmHg LV V1 max P.9 mmHg Ao V2 mean: 118.7 cm/sec Ao mean P.3 mmHg Ao V2 VTI: 27.1 cm TR max michael: 258.5 cm/sec TR max P.7 mmHg Interpretation Summary Left ventricular systolic function is normal. The estimated ejection fraction is 70 %. The left atrium is mildly enlarged. Trivial mitral valve insufficiency. Trivial tricuspid valve insufficiency. Trivial pulmonic valve insufficiency. Right ventricular systolic pressure estimated to be 30 mmHg. No evidence for diastolic dysfunction. Bubble contrast study negative for right to left interatrial shunt. Ordering Physician: Kenji Calix Referring Physician: Dc Glez Performed By: Mesha Sullivan RDCS, RVT
--- NOTE | 2017-12-12 11:26 | DCINST_ITS ---
You will use the following diet at home:: Cardiac Your food should be the consistency of: Regular Your liquids should be the consistency of: Regular/Thin Discharge Activity: Return to Normal Activity Allergies/Adverse Reactions: Allergies Sulfa (Sulfonamide Antibiotics) Allergy (Verified 12/11/17 21:20) Unknown vancomycin Allergy (Verified 12/11/17 21:20) Fever and skin rash ceftriaxone Adverse Reaction (Verified 12/11/17 21:20) Rash linezolid Adverse Reaction (Verified 12/11/17 21:20) Rash Medications to take at Discharge Omeprazole 40 mg PO DAILY 12/11/17 Prednisone 10 mg PO DAILY 12/11/17 Rivaroxaban [Xarelto] 15 mg PO BIDCM #41 tablet 12/12/17 Rivaroxaban [Xarelto] 20 mg PO DAILY #30 tablet 12/12/17 The following prescriptions were given: Rivaroxaban [Xarelto] 15 mg PO BIDCM #41 tablet Rivaroxaban [Xarelto] 20 mg PO DAILY #30 tablet Primary Care Physician: Dc Glez MD [Primary Care Provider] - Please follow up with your Primary Care Physician in: 1 week Test Results: Test results from this visit will be discussed in further detail at your follow- up appointment, if applicable. Please Follow Up With: Orthopedics When: As directed
[2017-12-12 11:27] LABS: Partial Thromboplast Time 42.8 Seconds (24.1-36.2)
--- NOTE | 2017-12-12 11:28 | CASEMGMT ---
Addendum entered by Ayah Andrews 12/12/17 11:56: This RN CM received call from Elieser at [facility] retail pharmacy and he states that pt's co-pay is $30 and they will apply a coupon card for the 1st month for pt. Pt to be updated on all at this time. Shanell GREGORIO CM Original Note: Call to Kia at [facility] and she is aware that pt to be discharged today. Resumption of care order placed in [facility] at this time. Call to [facility] retail pharmacy to check loya on Xarelto and per Feb, they have not run med yet but will call this RN CM once they do. Shanell GREGORIO CM
[2017-12-12] MEDS: Rivaroxaban 15 MG Tablet PO (11:54)
--- NOTE | 2017-12-12 12:00 | CASEMGMT ---
JG CASTANO assessment: Face to Face with patient for initial transition planning/care coordination assessment. JG CASTANO introduced self and role at [facility], pt voices understanding and consents to assessment at this time. Pt's is at bedside during assessment. Pt is sitting up in bed in no distress at this time. Pt is A/Ox4 at this time and answers all questions appropriately at this time. Care providers, pharmacy, and demographics verified/updated at this time. PCP: Amaris Specialists: Radha-ortho; Mike-jonathan Preferred Pharmacy: [facility] retail pharmacy/[facility] [place] Insurance: MMO Prescription Benefit: MMO Living Will/HPOA: Pt states does not have LW/HPOA and states no interest in info at this time. LNOK: Aby Peck, Living Arrangements: Pt lives on main level of 2 story home and states no concerns at home at this time. Transportation: Pt is still not cleared to drive but /family drive and states no transportation concerns at this time. DME/HHC: Pt has the following DME: cane, crutches and walker. Pt states no need for any further DME at this time. Pt is current with [facility] for RN and PT at this time. Resumption of care order placed at this time. Kia at [facility] aware that pt to be discharged today, voices understanding. Pt has been to [facility] in the recent past. Pt/ voice no concerns with pt going home at time of discharge. Pt states does not smoke and drinks ETOH occasionally. Pt/ voice no further concerns/needs at this time. Advised pt/ to ask for CM if any further questions/concerns/needs arise, voices understanding. Plan: Home w/ resumption of care [place] JG CASTANO
--- NOTE | 2017-12-12 13:17 | PCM.DC.SUM ---
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 There is no obvious effusion. CT/CTA Chest W/WO Contrast IMPRESSION: Central right pulmonary artery filling defect including the superior pulmonary artery. The remainder of the pulmonary arteries are slightly degraded due to the cardiac motion. Other sites of pulmonary emboli cannot be verified or excluded. Airspace opacification peripheral right upper lobe corresponding to the filling defects, no cavitation seen. Early pulmonary infarcts may be present. No aneurysm, leak or arterial dissection. These findings were discussed on the telephone with Dr. Gunter at [address] [place] [address] on 12/12/2017. Operations: None Procedures: 2-D Echocardiogram Summary of Care Provided: Physical exam on day of discharge: General: Resting comfortably NAD Psych: A/Ox3 normal affect HEENT: PEARRLA AT NC Neck: Supple NT CV: RRR no m/t/r/g/h Resp: CTA Abd: [id number] Soft NT no guarding or rigidity Ext: DP2+= no edema Skin: W/D normal turgor Lymph/Heme: No active bleeding or adenopathy Neuro: CN2-12 intact Hospital course: The patient is a 57 year old M with a past medical history of factor V Leiden with prior DVTs and PEs, who used to be on warfarin however had his warfarin discontinued after developing severely elevated INR with retroperitoneal bleeding which required urgent transfer to [facility] about 1 month prior to this presentation. 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 After he was discharged from the clinic he was taken off of most of his medications and started on prednisone for dress. The day of presentation he had a sudden onset of right-sided chest pain and came to the emergency room. In the ER he had a severely elevated d-dimer and a CTA of the chest was performed which did reveal pulmonary embolism. He is placed on a heparin drip and admitted to the PCU for monitoring. An echo was obtained which is pending at this time. He had no further chest pain after admission. He had no shortness of breath and no increased oxygen demand. His vital signs remained stable. The decision was made to start him on oral anticoagulation with Xarelto. As he had no further symptoms he was discharged home with resumption of his previous home health care in stable condition. He will follow-up with his PCP in 1-2 weeks. He will need to follow-up with his orthopedic surgeon as previously directed. This patient was seen by Kenji Calix PA-C under the supervision of Doctor Eder. [] - Physical Exam General: Alert, Oriented x3, Cooperative HEENT: Atraumatic, PERRLA, EOMI, Normocephalic Neck: Supple, No JVD, Negative Carotid Bruits Lungs: Clear to auscultation, Normal air movement Cardiovascular: Regular rate, No murmurs Abdomen: Bowel Sounds Present, Soft, Non Tender Extremities: No edema, Capillary Refill Less than 3 Seconds Skin: No rashes, No breakdown Musculoskeletal: No Tenderness to Palpation of Joints or Extremities Neurological: Cranial nerves II-XII grossly intact Psych/Mental Status: Normal Affect, Appropriate Vital Signs Temp Pulse Resp BP Pulse Ox 98.7 F 111 H 18 122/77 H 94 12/12/17 09:07 12/12/17 11:38 12/12/17 09:07 12/12/17 09:07 12/12/17 09:07 Oxygen Flow Rate (L/min) 2 Oxygen Delivery Method Room Air Weight: 175 lb 14.862 oz Body Mass Index (BMI) 22.6 Intake and Output for Last 24 Hours 12/10/17 12/11/17 12/12/17 23:59 23:59 23:59 Intake Total 440 / 440 Balance 440 / 440 Laboratory Tests Past 24 Hrs 12/11/17 12/11/17 12/11/17 21:35 21:35 22:20 WBC 8.5 RBC 3.71 L Hgb 11.4 L Hct 35.9 L MCV 96.8 H MCH 30.7 MCHC 31.8 L RDW 15.0 H RDW Differential 50.3 H Plt Count 242 MPV 9.9 Immature Gran % (Auto) 0.400 Neut % (Auto) 68.0 Lymph % (Auto) 17.4 L Ada % (Auto) 9.7 Eos % (Auto) 3.3 Baso % (Auto) 1.2 H Absolute Neuts (auto) 5.8 Absolute Lymphs (auto) 1.48 Total Counted Not Reportable PT INR APTT D-Dimer Quant (PE/DVT) 16.14 H* Sodium 135 L Potassium 4.0 Chloride 101 Carbon Dioxide 27.0 Anion Gap 7 BUN 12 Creatinine 1.06 Estim Creat Clear Calc 86.89 Est GFR (MDRD) Af Amer 93 Est GFR (MDRD) Non-Af 77 BUN/Creatinine Ratio 11.3 Glucose 99 Calcium 8.5 Troponin I < 0.015 12/12/17 12/12/17 03:54 10:40 WBC RBC Hgb Hct MCV MCH MCHC RDW RDW Differential Plt Count MPV Immature Gran % (Auto) Neut % (Auto) Lymph % (Auto) Ada % (Auto) Eos % (Auto) Baso % (Auto) Absolute Neuts (auto) Absolute Lymphs (auto) Total Counted PT 14.6 INR 1.1 APTT 32.6 42.8 H D-Dimer Quant (PE/DVT) Sodium Potassium Chloride Carbon Dioxide Anion Gap BUN Creatinine Estim Creat Clear Calc Est GFR (MDRD) Af Amer Est GFR (MDRD) Non-Af BUN/Creatinine Ratio Glucose Calcium Troponin I Discharge Diet: No Restrictions Discharge Activity: Return to Normal Activity Home Medications: Medications to take at Discharge Omeprazole 40 mg PO DAILY 12/11/17 Prednisone 10 mg PO DAILY 12/11/17 Rivaroxaban [Xarelto] 15 mg PO BIDCM #41 tablet 12/12/17 Rivaroxaban [Xarelto] 20 mg PO DAILY #30 tablet 12/12/17 Following Prescrptions Were Given to Patient: Rivaroxaban [Xarelto] 15 mg PO BIDCM #41 tablet Rivaroxaban [Xarelto] 20 mg PO DAILY #30 tablet Primary Care Physician: Dc Santa MD [Primary Care Provider] - Please follow up with your Primary Care Physician in: 1 week Please Follow Up With: Orthopedics When: As directed Please Follow Up With: dc santa Disposition: Home with Home Health Minutes spent on discharge:: 35 Patient Condition:: Stable Medical Necessity - Tobacco Use Smoking Status: Never smoker Meaningful Use Info Meaningful Use Diagnoses (Choose all that apply): VTE - VTE Anticoag overlap given w/in hospital stay or rx'd at dc?: No Pt receive overlap for 5 days?: No Reason overlap not ordered, prescribed, or given for 5 days: Procedure Not Indicated <Chaparro Gaines F - Last Filed: 12/12/17 16:26> Discharge Date and Diagnosis - Secondary Discharge Diagnosis Chronic Problems Factor V Leiden (Chronic) Elevated LFTs (Chronic) Anemia (Chronic) Status post total right knee replacement (Chronic) History of pulmonary embolism (Chronic) History of DVT (deep vein thrombosis) (Chronic) Hospital Course and Treatment Imaging Results: 12/12/17 11:22 Echo Complete [ECHO] Routine Summary of Care Provided: The patient is a 57 year old M [] - Physical Exam Vital Signs Temp Pulse Resp BP Pulse Ox 99.2 F H 86 17 123/80 H 94 12/12/17 14:59 12/12/17 14:59 12/12/17 14:59 12/12/17 14:59 12/12/17 14:59 Oxygen Flow Rate (L/min) 2 Oxygen Delivery Method Room Air Weight: 175 lb 14.862 oz Body Mass Index (BMI) 22.6 Intake and Output for Last 24 Hours 12/10/17 12/11/17 12/12/17 23:59 23:59 23:59 Intake Total 440 / 440 Balance 440 / 440 Laboratory Tests Past 24 Hrs 12/11/17 12/11/17 12/11/17 21:35 21:35 22:20 WBC 8.5 RBC 3.71 L Hgb 11.4 L Hct 35.9 L MCV 96.8 H MCH 30.7 MCHC 31.8 L RDW 15.0 H RDW Differential 50.3 H Plt Count 242 MPV 9.9 Immature Gran % (Auto) 0.400 Neut % (Auto) 68.0 Lymph % (Auto) 17.4 L Ada % (Auto) 9.7 Eos % (Auto) 3.3 Baso % (Auto) 1.2 H Absolute Neuts (auto) 5.8 Absolute Lymphs (auto) 1.48 Total Counted Not Reportable PT INR APTT D-Dimer Quant (PE/DVT) 16.14 H* Sodium 135 L Potassium 4.0 Chloride 101 Carbon Dioxide 27.0 Anion Gap 7 BUN 12 Creatinine 1.06 Estim Creat Clear Calc 86.89 Est GFR (MDRD) Af Amer 93 Est GFR (MDRD) Non-Af 77 BUN/Creatinine Ratio 11.3 Glucose 99 Calcium 8.5 Troponin I < 0.015 12/12/17 12/12/17 03:54 10:40 WBC RBC Hgb Hct MCV MCH MCHC RDW RDW Differential Plt Count MPV Immature Gran % (Auto) Neut % (Auto) Lymph % (Auto) Ada % (Auto) Eos % (Auto) Baso % (Auto) Absolute Neuts (auto) Absolute Lymphs (auto) Total Counted PT 14.6 INR 1.1 APTT 32.6 42.8 H D-Dimer Quant (PE/DVT) Sodium Potassium Chloride Carbon Dioxide Anion Gap BUN Creatinine Estim Creat Clear Calc Est GFR (MDRD) Af Amer Est GFR (MDRD) Non-Af BUN/Creatinine Ratio Glucose Calcium Troponin I Code Visit Addendum: Dr. Gaines I personally examined the patient and reviewed the chart. I agree with the above. 7-year-old male with a history of factor V Leiden, who was previously on Coumadin for the last 16 years presenting with a PE after having his Coumadin stopped for the last 6 weeks secondary to a retroperitoneal bleed when he was supratherapeutic to an INR of 20. Currently the PE is symptomatic with only mild chest pain and echo is pending however patient is agreeable to discharge home with 3 weeks of Xarelto twice daily followed by maintenance on Xarelto 20. His diagnosis of factor V Leiden and the PE after stopping Coumadin, I feel that he will need to be on lifelong anticoagulated on Xarelto. Inpatient E&M: [id number] [facility]
--- NOTE | 2017-12-12 13:23 | DS.PCM_ITS ---
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 There is no obvious effusion. CT/CTA Chest W/WO Contrast IMPRESSION: Central right pulmonary artery filling defect including the superior pulmonary artery. The remainder of the pulmonary arteries are slightly degraded due to the cardiac motion. Other sites of pulmonary emboli cannot be verified or excluded. Airspace opacification peripheral right upper lobe corresponding to the filling defects, no cavitation seen. Early pulmonary infarcts may be present. No aneurysm, leak or arterial dissection. These findings were discussed on the telephone with Dr. Gunter at [address] [place] [address] on 12/12/2017. Operations: None Procedures: 2-D Echocardiogram Summary of Care Provided: Physical exam on day of discharge: General: Resting comfortably NAD Psych: A/Ox3 normal affect HEENT: PEARRLA AT NC Neck: Supple NT CV: RRR no m/t/r/g/h Resp: CTA Abd: [id number] Soft NT no guarding or rigidity Ext: DP2+= no edema Skin: W/D normal turgor Lymph/Heme: No active bleeding or adenopathy Neuro: CN2-12 intact Hospital course: The patient is a 57 year old M with a past medical history of factor V Leiden with prior DVTs and PEs, who used to be on warfarin however had his warfarin discontinued after developing severely elevated INR with retroperitoneal bl eeding which required urgent transfer to [facility] about 1 month prior to this presentation. He was treated at the [place] [facility] and was diagnosed with dress syndrome. 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 After he was discharged from the clinic he was taken off of most of his medications and started on prednisone for dress. The day of presentation he had a sudden onset of right-sided chest pain and came to the emergency room. In the ER he had a severely elevated d-dimer and a CTA of the chest was performed which did reveal pulmonary embolism. He is placed on a heparin drip and admitted to the PCU for monitoring. An echo was obtained which is pending at this time. He had no further chest pain after admission. He had no shortness of breath and no increased oxygen demand. His vital signs remained stable. The decision was made to start him on oral anticoagulation with Xarelto. As he had no further symptoms he was discharged home with resumption of his previous home health care in stable condition. He will follow-up with his PCP in 1-2 weeks. He will need to follow-up with his orthopedic surgeon as previously directed. This patient was seen by Kenji Calix PA-C under the supervision of Doctor Eder. [] - Physical Exam General: Alert, Oriented x3, Cooperative HEENT: Atraumatic, PERRLA, EOMI, Normocephalic Neck: Supple, No JVD, Negative Carotid Bruits Lungs: Clear to auscultation, Normal air movement Cardiovascular: Regular rate, No murmurs Abdomen: Bowel Sounds Present, Soft, Non Tender Extremities: No edema, Capillary Refill Less than 3 Seconds Skin: No rashes, No breakdown Musculoskeletal: No Tenderness to Palpation of Joints or Extremities Neurological: Cranial nerves II-XII grossly intact Psych/Mental Status: Normal Affect, Appropriate Vital Signs Temp Pulse Resp BP Pulse Ox 98.7 F 111 H 18 122/77 H 94 12/12/17 09:07 12/12/17 11:38 12/12/17 09:07 12/12/17 09:07 12/12/17 09:07 Oxygen Flow Rate (L/min) 2 Oxygen Delivery Method Room Air Weight: 175 lb 14.862 oz Body Mass Index (BMI) 22.6 Intake and Output for Last 24 Hours 12/10/17 12/11/17 12/12/17 23:59 23:59 23:59 Intake Total 440 / 440 Balance 440 / 440 Laboratory Tests Past 24 Hrs 12/11/17 12/11/17 12/11/17 21:35 21:35 22:20 WBC 8.5 RBC 3.71 L Hgb 11.4 L Hct 35.9 L MCV 96.8 H MCH 30.7 MCHC 31.8 L RDW 15.0 H RDW Differential 50.3 H Plt Count 242 MPV 9.9 Immature Gran % (Auto) 0.400 Neut % (Auto) 68.0 Lymph % (Auto) 17.4 L [place] % (Auto) 9.7 Eos % (Auto) 3.3 Baso % (Auto) 1.2 H Absolute Neuts (auto) 5.8 Absolute Lymphs (auto) 1.48 Total Counted Not Reportable PT INR APTT D-Dimer Quant (PE/DVT) 16.14 H* Sodium 135 L Potassium 4.0 Chloride 101 Carbon Dioxide 27.0 Anion Gap 7 BUN 12 Creatinine 1.06 Estim Creat Clear Calc 86.89 Est GFR (MDRD) Af Amer 93 Est GFR (MDRD) Non-Af 77 BUN/Creatinine Ratio 11.3 Glucose 99 Calcium 8.5 Troponin I < 0.015 12/12/17 12/12/17 03:54 10:40 WBC RBC Hgb Hct MCV MCH MCHC RDW RDW Differential Plt Count MPV Immature Gran % (Auto) Neut % (Auto) Lymph % (Auto) [place] % (Auto) Eos % (Auto) Baso % (Auto) Absolute Neuts (auto) Absolute Lymphs (auto) Total Counted PT 14.6 INR 1.1 APTT 32.6 42.8 H D-Dimer Quant (PE/DVT) Sodium Potassium Chloride Carbon Dioxide Anion Gap BUN Creatinine Estim Creat Clear Calc Est GFR (MDRD) Af Amer Est GFR (MDRD) Non-Af BUN/Creatinine Ratio Glucose Calcium Troponin I Discharge Diet: No Restrictions Discharge Activity: Return to Normal Activity Home Medications: Medications to take at Discharge Omeprazole 40 mg PO DAILY 12/11/17 Prednisone 10 mg PO DAILY 12/11/17 Rivaroxaban [Xarelto] 15 mg PO BIDCM #41 tablet 12/12/17 Rivaroxaban [Xarelto] 20 mg PO DAILY #30 tablet 12/12/17 Following Prescrptions Were Given to Patient: Rivaroxaban [Xarelto] 15 mg PO BIDCM #41 tablet Rivaroxaban [Xarelto] 20 mg PO DAILY #30 tablet Primary Care Physician: Dc Santa MD [Primary Care Provider] - Please follow up with your Primary Care Physician in: 1 week Please Follow Up With: Orthopedics When: As directed Please Follow Up With: dc santa Disposition: Home with Home Health Minutes spent on discharge:: 35 Patient Condition:: Stable Medical Necessity - Tobacco Use Smoking Status: Never smoker Meaningful Use Info Meaningful Use Diagnoses (Choose all that apply): VTE - VTE Anticoag overlap given w/in hospital stay or rx'd at dc?: No Pt receive overlap for 5 days?: No Reason overlap not ordered, prescribed, or given for 5 days: Procedure Not Indicated <Chaparro Gaines - Last Filed: 12/12/17 16:26> Discharge Date and Diagnosis - Secondary Discharge Diagnosis Chronic Problems Factor V Leiden (Chronic) Elevated LFTs (Chronic) Anemia (Chronic) Status post total right knee replacement (Chronic) History of pulmonary embolism (Chronic) History of DVT (deep vein thrombosis) (Chronic) Hospital Course and Treatment Imaging Results: 12/12/17 11:22 Echo Complete [ECHO] Routine Summary of Care Provided: The patient is a 57 year old M [] - Physical Exam Vital Signs Temp Pulse Resp BP Pulse Ox 99.2 F H 86 17 123/80 H 94 12/12/17 14:59 12/12/17 14:59 12/12/17 14:59 12/12/17 14:59 12/12/17 14:59 Oxygen Flow Rate (L/min) 2 Oxygen Delivery Method Room Air Weight: 175 lb 14.862 oz Body Mass Index (BMI) 22.6 Intake and Output for Last 24 Hours 12/10/17 12/11/17 12/12/17 23:59 23:59 23:59 Intake Total 440 / 440 Balance 440 / 440 Laboratory Tests Past 24 Hrs 12/11/17 12/11/17 12/11/17 21:35 21:35 22:20 WBC 8.5 RBC 3.71 L Hgb 11.4 L Hct 35.9 L MCV 96.8 H MCH 30.7 MCHC 31.8 L RDW 15.0 H RDW Differential 50.3 H Plt Count 242 MPV 9.9 Immature Gran % (Auto) 0.400 Neut % (Auto) 68.0 Lymph % (Auto) 17.4 L [place] % (Auto) 9.7 Eos % (Auto) 3.3 Baso % (Auto) 1.2 H Absolute Neuts (auto) 5.8 Absolute Lymphs (auto) 1.48 Total Counted Not Reportable PT INR APTT D-Dimer Quant (PE/DVT) 16.14 H* Sodium 135 L Potassium 4.0 Chloride 101 Carbon Dioxide 27.0 Anion Gap 7 BUN 12 Creatinine 1.06 Estim Creat Clear Calc 86.89 Est GFR (MDRD) Af Amer 93 Est GFR (MDRD) Non-Af 77 BUN/Creatinine Ratio 11.3 Glucose 99 Calcium 8.5 Troponin I < 0.015 12/12/17 12/12/17 03:54 10:40 WBC RBC Hgb Hct MCV MCH MCHC RDW RDW Differential Plt Count MPV Immature Gran % (Auto) Neut % (Auto) Lymph % (Auto) [place] % (Auto) Eos % (Auto) Baso % (Auto) Absolute Neuts (auto) Absolute Lymphs (auto) Total Counted PT 14.6 INR 1.1 APTT 32.6 42.8 H D-Dimer Quant (PE/DVT) Sodium Potassium Chloride Carbon Dioxide Anion Gap BUN Creatinine Estim Creat Clear Calc Est GFR (MDRD) Af Amer Est GFR (MDRD) Non-Af BUN/Creatinine Ratio Glucose Calcium Troponin I Code Visit Addendum: Dr. Gaines I personally examined the patient and reviewed the chart. I agree with the above. 7-year-old male with a history of factor V Leiden, who was previously on Coumadin for the last 16 years presenting with a PE after having his Coumadin stopped for the last 6 weeks secondary to a retroperitoneal bleed when he was supratherapeutic to an INR of 20. Currently the PE is symptomatic with only mild chest pain and echo is pending however patient is agreeable to discharge home with 3 weeks of Xarelto twice daily followed by maintenance on Xarelto 20. His diagnosis of factor V Leiden and the PE after stopping Coumadin, I feel that he will need to be on lifelong anticoagulated on Xarelto. Inpatient E&M: [id number] [facility] H[facility]
== END 2017-12-12 17:30 | disposition home health service (06) ==
LOC: ED 21:59 → PCU 12-12 00:51
PROVIDERS: Admitting Provider Hospitalist; Emergency Provider Emergency Medicine; Family Provider Family Medicine; PCP Family Medicine; Visit Provider Family Medicine
DX: R07.89 Other chest pain (principal); Z23 Encounter for immunization; Z86.718 Personal history of other venous thrombosis and embolism; Z86.711 Personal history of pulmonary embolism; Z79.899 Other long term (current) drug therapy; Z79.52 Long term (current) use of systemic steroids; D68.51 Activated protein C resistance; K21.9 Gastro-esophageal reflux disease without esophagitis
CPT/HCPCS: 36415; 71045; 71275; 80048; 84484; 85025; 85379; 85610; 85730; 93005; 93306; 96361; 96365; 96366; 96376; 99218; 99282; J7030; Q9967; 90686; A4216; G0378

== ENCOUNTER → 2017-12-26 10:12 | Outpatient (CLI) | payer OTHER, SELFPAY ==
[2017-12-26 11:16] LABS: Color, Urine Yellow (Yellow); Glucose, Dipstick Normal (Normal); Ketone-Dipstick Negative (Negative); Leukocyte Esterase-Dipstick 25 /ul (Negative); Nitrite-Dipstick Negative (Negative); Occult Blood-Urine Negative /ul (Negative); Protein-Dipstick 30 mg/dl (Negative); Urine Bilirubin Dipstick Negative (Negative); Urine Clarity Sl. Cloudy (Clear); Urine Urobilinogen Normal (Normal)
[2017-12-26 11:24] LABS: Absolute Lymphocyte Count 1.56 X10^3/ul (0.83-4.51); Absolute Neutrophil Count 5.5 X10^3/uL (2.0-7.7); Basophil# 0.12 X10^3/uL; Basophil% 1.5 % (0-1); Eosinophil# 0.21 X10^3/uL; Eosinophils% 2.6 % (0-5); Hemoglobin 11.8 g/dl (13.0-16.5); Lymphocyte # 1.56 X10^3/ul (4.0); Lymphocyte % 19.6 % (19-41); Mean Corp Hgb Conc 31.1 g/gl (32-36); Mean Corpuscular Hgb 30.1 pg (27.0-32.0); Mean Corpuscular Volume 96.9 fL (80-94); Mean Platelet Vol. 9.9 fl (6.2-12.0); Monocyte# 0.57 X10^3/uL; Monocyte% 7.2 % (0-10); Neutrophil # 5.47 X10^3/uL (2.7-7.7); Neutrophil % 68.8 % (47-70); Platelet Count 332 K/mm3 (150-450); RBC Distribution Width CV 14.3 % (11.6-14.6); RBC Distribution Width SD 48.9 fl (35.1-43.9); Red Blood Count 3.92 M/mm3 (4.6-6.2)
[2017-12-26 11:31] LABS: POSITIVE COUNT NO; POSITIVE DIFFERENTIAL NO; POSITIVE MORPHOLOGY NO
[2017-12-26 11:55] LABS: AST(SGOT) 24 U/L (15-37); Alanine Aminotransfer ALT/SGPT 17 U/L (16-61); Albumin, Serum 2.7 g/dL (3.2-5.0); Alkaline Phosphatase 107 U/L (45-117); Anion Gap 7 (5-15); BUN 19 mg/dL (7-18); BUN/Creat Ratio 19.1 RATIO (10-20); Bilirubin, Direct 0.32 mg/dL (0.00-0.30); Calcium,Total 9.1 mg/dL (8.5-10.1); Chloride 101 mmol/L (98-107); EST Glomerular Filtration Rate 82 mL/min (>60); Est Glom Filt Rate - Afr Amer 99 mL/min (>60); Globulin 6.3 g/dL (2.2-4.2); Glucose 85 mg/dL (74-106); Potassium 4.5 mmol/L (3.5-5.1); Sodium Level 139 mmol/L (136-145); T4 Free Direct 0.87 ng/dL (0.76-1.46); Thyroid Stim Hormone (TSH) 2.02 uIU/mL (0.358-3.74)
== END ==
PROVIDERS: Family Provider Family Medicine; PCP Family Medicine; Referring Provider Dermatology; Visit Provider Dermatology
DX: T50.995A Adverse effect of other drugs, medicaments and biological substances, initial encounter (principal)
CPT/HCPCS: 36415; 80048; 80076; 81002; 84439; 84443; 85025

== ENCOUNTER → 2018-01-11 14:38 | Outpatient (CLI) | payer OTHER, SELFPAY ==
[2017-12-12 01:20] VITALS: BMI 22.6
[2018-01-14 03:06] LABS: HEPATITIS B SURFACE AG 6510 Negative (Negative); Hepatitis C Ab 0.2 s/co ratio (0.0-0.9)
[2018-01-16 16:12] LABS: Hep B Surface Antibodies Non Reactive (.)
== END ==
PROVIDERS: Family Provider Family Medicine; PCP Family Medicine; Visit Provider Family Medicine
DX: Z20.5 Contact with and (suspected) exposure to viral hepatitis (principal)
CPT/HCPCS: 36415; 86706; 86803; 87340

== ENCOUNTER → 2018-02-09 09:09 | Outpatient (CLI) | payer OTHER, SELFPAY ==
[2018-02-02 16:02] VITALS: BMI 25.1
--- NOTE | 2018-02-09 09:29 | CDU_ITS ---
Reason For Study: syncope Rt. Velocities/BP Lt. Velocities/BP Prox CCA 116/31.4 cm/sec. Prox CCA 129/26.7 cm/sec. Mid CCA 101/30.6 cm/sec. Mid CCA 102/27.5 cm/sec. Dist CCA 87.2/26.7 cm/sec. Dist CCA 73.3/27.0 cm/sec. Prox ICA 39.3/20.5 cm/sec. Prox ICA 42.2/21.7 cm/sec. Mid ICA 59.8/27.6 cm/sec. Mid ICA 62.1/26.4 cm/sec. Dist ICA 67.4/29.9 cm/sec. Dist ICA 82.7/34.0 cm/sec. Rt. ICA/CCA = .7. Lt. ICA/CCA = .8. Prox ECA 115/18.9 cm/sec. Prox ECA 115/20.5 cm/sec. Rt. Vert. 38.1/15.8 cm/sec. Lt. Vert. 48.1/18.2 cm/sec. Right Extracranial There is intimal thickening but no significant atherosclerotic plaque noted in the right common carotid artery. There is intimal thickening but no significant atherosclerotic plaque noted in the right internal carotid artery. There is intimal thickening but no significant atherosclerotic plaque noted in the right external carotid artery. Antegrade flow is noted in the right vertebral artery. Left Extracranial There is intimal thickening but no significant atherosclerotic plaque noted in the left common carotid artery. There is intimal thickening but no significant atherosclerotic plaque noted in the left internal carotid artery. There is intimal thickening but no significant atherosclerotic plaque noted in the left external carotid artery. Antegrade flow is noted in the left vertebral artery. Procedure Carotid Duplex [id number]. The exam was diagnostic. Exam performed in department. Interpretation Summary No hemodynamically significant plague or stenosis bilateral extracranial internal carotids with <50% stenosis bilaterally Normal flow bilateral external carotids Patent and antegrade vertebrals bilaterally Ordering Physician: Dc Mazariegos Performed By: Ridge Chu RVT
[2018-02-09 10:13] LABS: Anion Gap 6 (5-15); BUN 16 mg/dL (7-18); BUN/Creat Ratio 17.5 RATIO (10-20); Calcium,Total 8.9 mg/dL (8.5-10.1); Chloride 105 mmol/L (98-107); Creatinine, Serum 0.91 mg/dL (0.70-1.30); EST Glomerular Filtration Rate 91 mL/min (>60); Est Glom Filt Rate - Afr Amer 110 mL/min (>60); Glucose 74 mg/dL (74-106); Potassium 4.2 mmol/L (3.5-5.1); Sodium Level 141 mmol/L (136-145)
== END ==
PROVIDERS: Family Provider Family Medicine; PCP Family Medicine; Referring Provider Internal Medicine Cardiovascular Disease; Visit Provider Internal Medicine Cardiovascular Disease
DX: I48.91 Unspecified atrial fibrillation (principal); R55 Syncope and collapse
CPT/HCPCS: 36415; 80048; 93880

== ENCOUNTER → 2018-02-23 08:13 | Outpatient (CLI) | payer OTHER, SELFPAY ==
[2018-02-02 16:02] VITALS: BMI 25.1
[2018-02-23 09:13] LABS: Hematocrit 42.6 % (40-54); Hemoglobin 13.7 g/dl (13.0-16.5); Mean Corp Hgb Conc 32.2 g/gl (32-36); Mean Corpuscular Hgb 30.4 pg (27.0-32.0); Mean Corpuscular Volume 94.7 fL (80-94); Mean Platelet Vol. 10.3 fl (6.2-12.0); Platelet Count 245 K/mm3 (150-450); RBC Distribution Width CV 12.8 % (11.6-14.6); White Blood Count 6.2 K/mm3 (4.4-11.0)
[2018-02-23 09:14] LABS: Scan Indicated on CBC? Y/N NO
[2018-02-23 19:38] VITALS: BP 0/0; BP 101/68; BP 112/66
--- NOTE | 2018-02-23 19:38 | TILTTABLE_ITS ---
- Staff Staff: Nguyen Villa, - - Leana Lott - Summary Pre Test Resting HR: 50 - Alert and oriented: Warm and dry Pre Test Resting BP: 101/68 - Alert and oriented: Warm and dry Minimum Test HR: 45 - Alert and oriented: Clammy Maximum Test HR: 80 - Alert and oriented: Warm and dry Minimum Test BP: 0/0 - Unresponsive Maximum Test BP: 112/66 - Alert and oriented: Warm and dry Reason for Test Termination: Syncope Physician Tilt Table Report - Patient's Physicians Primary Care Physician: Dc Glez Child Monitor: Dc Mazariegos Indications/Diagnosis: Syncope Procedure Comments: The patient presented to the tilt table laboratory. The patient was alert and oriented and warm and dry. The baseline heart rate was 50 bpm with a baseline blood pressure 101/68 mmHg. The baseline ECG demonstrated sinus bradycardia. The patient was placed in the 70 degree upright tilt table position for approximately 23 minutes. The patient was initially alert and oriented and warm and dry, however, at peak tilt table time the patient became unresponsive. The minimal heart rate was 45 bpm (patient had been returned to the supine position) and the patient was alert and oriented and clammy. The minimal blood pressure was 0/0 when the patient was unresponsive. The maximal heart rate was 80 bpm at which time the patient was alert and oriented and warm and dry. The maximal blood pressure was 112/66 mmHg (during recovery) with the patient was alert and oriented and warm and dry. The cardiac rhythm remained sinus rhythm with PACs. The patient noted initially no symptoms and then subsequently noting the fingers felt cool and the hands felt clammy prior to becoming unresponsive. The patient was returned to the supine position. The patient became alert and oriented and was subsequently noted to be warm and dry. The concluding heart rate was 61 bpm with a concluding blood pressure 101/56 mmHg. The cardiac rhythm remained sinus rhythm. The patient had no further complaints. The patient was subsequently released from the tilt table laboratory. Summary: 70 degree upright tilt table study considered positive for reproducible vasovagal/neurocardiogenic disease combined cardioinhibitory and vasodilatory) syncope.
== END ==
PROVIDERS: Family Provider Family Medicine; PCP Family Medicine; Referring Provider Internal Medicine Cardiovascular Disease; Visit Provider Internal Medicine Cardiovascular Disease
DX: D68.51 Activated protein C resistance (principal); R55 Syncope and collapse
CPT/HCPCS: 36415; 85027; 93660; J7040; A4216

== ENCOUNTER → 2018-02-28 06:09 | Outpatient (CLI) | payer OTHER, SELFPAY ==
[2018-02-02 16:02] VITALS: BMI 25.1
--- NOTE | 2018-02-28 16:21 | STRESSREP_ITS ---
Stress Test Report Date: 03/01/2018 Procedure: Pharmacologic stress nuclear imaging study Indications: Atrial fibrillation Consent: Per the patient Procedure: The patient underwent pharmacologic (Regadenoson) evaluation with a peak heart rate of 123 beats per minute (75 predicted maximal heart rate) and a peak blood pressure of 118/80 mmHg. The baseline ECG demonstrated sinus rhythm. The peak pharmacologic ECG demonstrated no obvious ECG changes. There were no cardiac dysrhythmias pretest, during pharmacologic infusion, or recovery. There was no complaint of chest discomfort during pharmacologic infusion or recovery. The examination was discontinued secondary to completion of protocol. Impression: 1. Pharmacologic (Regadenoson) evaluation 2. Peak pharmacologic ECG with no obvious ECG changes. 3. There were no cardiac dysrhythmias pretest, during pharmacologic infusion, or recovery. 4. Nuclear images pending Myocardial perfusion imaging study: Technique: The patient was injected with 14.5 millicuries of technetium 99m Cardiolite and subsequently rest SPECT Cardiolite nuclear imaging was obtained in the horizontal long, vertical long, and short axis views. The patient underwent pharmacologic (Regadenoson) evaluation with a peak heart rate of 123 beats per minute (75 % percent predicted maximal heart rate) and a peak blood pressure of 118/80 mmHg. The patient was injected with 44.3 millicuries of technetium 99m Cardiolite and subsequently stress SPECT Cardiolite nuclear imaging was obtained in the horizontal long, vertical long, and short axis views. A gated Cardiolite study at peak stress was obtained. Interpretation: Rest and stress SPECT Cardiolite nuclear imaging status post realignment, normalization, and attenuation correction demonstrate relative uniform tracer uptake in myocardial perfusion appearing within normal limits. There is end systolic thickening and brightening. The gated Cardiolite study demonstrates myocardial thickening and inward wall motion. The reported LVEF is 66 %. Impression: 1. Rest and stress SPECT Cardiolite nuclear imaging demonstrate relative uniform tracer uptake and myocardial perfusion appearing within normal limits. 2. The gated Cardiolite study reports an LVEF of 66 %. This note was generated with [employer] software. It may contain incorrect words, spelling, and punctuation that were not noted in checking the note before signing.
== END ==
PROVIDERS: Family Provider Family Medicine; PCP Family Medicine; Referring Provider Nurse Practitioner Family; Visit Provider Nurse Practitioner Family
DX: I48.91 Unspecified atrial fibrillation (principal); I25.10 Atherosclerotic heart disease of native coronary artery without angina pectoris
CPT/HCPCS: 78452; 93017; A9500; A4216; J2785

== ENCOUNTER → 2018-04-03 15:37 | Outpatient (CLI) | payer OTHER, SELFPAY ==
[2018-02-02 16:02] VITALS: BMI 25.1
[2018-04-03 16:24] LABS: Absolute Lymphocyte Count 1.97 X10^3/ul (0.83-4.51); Absolute Neutrophil Count 5.5 X10^3/uL (2.0-7.7); Basophil# 0.08 X10^3/uL; Eosinophil# 0.15 X10^3/uL; Eosinophils% 1.8 % (0-5); Hematocrit 43.8 % (40-54); Hemoglobin 13.7 g/dl (13.0-16.5); Lymphocyte # 1.97 X10^3/ul (4.0); Lymphocyte % 23.9 % (19-41); Mean Corp Hgb Conc 31.3 g/gl (32-36); Mean Corpuscular Hgb 29.2 pg (27.0-32.0); Mean Corpuscular Volume 93.4 fL (80-94); Mean Platelet Vol. 10.2 fl (6.2-12.0); Monocyte# 0.57 X10^3/uL; Monocyte% 6.9 % (0-10); Neutrophil # 5.46 X10^3/uL (2.7-7.7); Neutrophil % 66.2 % (47-70); Platelet Count 241 K/mm3 (150-450); RBC Distribution Width CV 13.1 % (11.6-14.6); RBC Distribution Width SD 44.3 fl (35.1-43.9); Red Blood Count 4.69 M/mm3 (4.6-6.2); White Blood Count 8.3 K/mm3 (4.4-11.0)
[2018-04-03 16:30] LABS: POSITIVE COUNT NO; POSITIVE DIFFERENTIAL NO; POSITIVE MORPHOLOGY NO
[2018-04-03 16:52] LABS: AST(SGOT) 16 U/L (15-37); Alanine Aminotransfer ALT/SGPT 14 U/L (16-61); Albumin, Serum 3.4 g/dL (3.2-5.0); Alkaline Phosphatase 109 U/L (45-117); Globulin 4.6 g/dL (2.2-4.2); T4 Free Direct 1.02 ng/dL (0.76-1.46)
== END ==
PROVIDERS: Family Provider Family Medicine; PCP Family Medicine; Referring Provider Dermatology; Visit Provider Dermatology
DX: T50.995A Adverse effect of other drugs, medicaments and biological substances, initial encounter (principal); L21.8 Other seborrheic dermatitis
CPT/HCPCS: 36415; 80076; 84439; 85025

== ENCOUNTER 2018-07-03 16:13 | Outpatient (RCR) | payer OTHER, SELFPAY ==
[2018-04-28 14:02] VITALS: BMI 25.1
--- NOTE | 2018-07-12 08:54 | HP.OTFCE_ITS ---
HP OT Functional Capacity Eval - Task Lift Floor (Occasional 1-33% of Day): 55# Floor (Frequent 34-66% of Day): 27# Floor (Constant 67-100% of Day): 11# Floor PDL: Medium Knee (Occasional 1-33% of Day): 55# Knee (Frequent 34-66% of Day): 27# Knee (Constant 67-100% of Day): 11# Knee PDL: Medium Waist (Occasional 1-33% of Day): 55# Waist (Frequent 34-66% of Day): 27# Waist (Constant 67-100% of Day): 11# Waist PDL: Medium Shoulder (Occasional 1-33% of Day): 35# Shoulder (Frequent 34-66% of Day): 18# Shoulder (Constant 67-100% of Day): 7# Shoulder PDL: Light-Medium Overhead (Occasional 1-33% of Day): 25# Overhead (Frequent 34-66% of Day): 12# Overhead (Constant 67-100% of Day): 5# Overhead PDL: Light Comments: pt demo good ability to lift from all levels. Demo good body mechanics with lift. - Work Activity/Posture Bending: Frequent Ability (34-66% of day) Squatting: Occasional Ability (1-33% of day) Kneeling: Occasional Ability (1-33% of day) Comments: with external support Reaching out: Frequent Ability (34-66% of day) Reaching up: Frequent Ability (34-66% of day) Sitting: Frequent Ability (34-66% of day) Walking: Frequent Ability (34-66% of day) Standing: Frequent Ability (34-66% of day) - Reference Duration Sedentary Sedentary Light Light Light Medium Medium Medium Heavy Very Heavy Heavy Occasional (0-33% of day) Frequent (34-66% of day) Constant (67-100% of day) 10 # Negligible Negligible 15 # 8 # Negligible 20 # 10# Negli. 35 # 18 # 7 # 50 # 25 # 10 # 75 # 100 # >100 # 38 # 50 # >50 # 15 # 20 # >20 # - Patient Information Height: 1.88 m Weight:: 93.894 kg Hand Dominance: right - Medical History Medical History Including Restrictions: Pt reports he was in good health until he underwent a right TKR in July 2017. He had his knee replaced and then ended up with an infection pt states it affected his entire body. pt states he did go through physical therapy for his need. Pt states he used both the wheeled walker and a cane following. Pt noticed weakness and numbness in his hands. Numbness mostly on ulnar side of his hand-little finger and ring finger. pt states sometimes they all go numb. - Diagnoses Diagnoses: Bilateral hand numbness. Bilateral hand weakness - Symptoms Symptoms: weakness in hands. weakness in arms. numbness. tingling - Pain Pain: Denies pain - Work History Work History: [employer] and has worked there 33 years. 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 - Behavioral Behavioral: Pt pleasant and cooperative during the assessment. - ADLS ADLS: This 57 year old male lives with his in a two story home with 2 entry stesps with one rail. pt states he has not difficulty getting in his home. Bedroom and bathroom on second floor with railing. pt states his is ind with all ADls and IADLS. pt ind. with driving etc. - Physical Examination ROM: pt demo overall ROM WFL. Strength: Pt demo with bilateral shoulder flex at 4/5. bilateral bicep flex 4/5 tricep 3+/5. all other LB ROM 4/5 grossly throughout. 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 Right thumb 3.84 left 3.84. right IF 3.84 left 3.84. right MF 3.84 left 3.84. right RF 3.84 left 3.84. right LF 3.84 left 4.31. sensory testing indicates pt demo with a decrease in sensation. Fine Motor: 9 hole peg test. right 21.09 seconds = 50%. left 18.94 seconds = 90% Balance: No loss of balance noted during assessment. - Non Material Handling Activities Bending: Pt demo the ability to bend forward three times, ten times and ten times rapidly, Pt can bend forward on a frequent basis. Squatting: Pt demo the ability to squat three times and ten times. pt was unable to completed squatting ten times rapidly due to right knee discomfort /. pt can squat on a occasional basis. Kneeling: pt demo the ability to kneel three times and then ten times with external support pt unable to perform ten times rapidly. Pt c/o LE muscle burning and feeling of being fatigue. Pt can kneel on a low occasional basis with external support. Reaching out/up: Pt demo the ability to reach up/out three times, ten times and ten times rapidly- pt states he noticed a increase in finger tip tingling. Pt can reach out/up on a frequent basis. Walking: pt amb with reciprical gait with tilted pelvis and keeping knees slightly bent with amb. pt amb 15 min with good reciprical step pattern. Pt can ambulate on a frequent basis. Standing: pt demo good standing ability for 6 min with no expressed or apparent discomfort. pt can stand on a frequent basis with shifting body weight. Sitting: Pt demo the ability to sit for 30 min with no expressed or apparent discomfort. Pt can sit on a frequent basis. Climbing Stairs: pt demo the ability to ascend/descend ten steps with a reciprical step pattern. - Dynamic Occasional Lifting Capacity Floor Lift: Pt demo the ability to lift 55# from floor level Knee Lift: pt will demo the ability to lift 55# from knee level Waist Lift: pt demo the ability to lift 55# from waist level Shoulder Lift: pt demo the ability to lift 35# from shoulder level Overhead Lift: pt demo the ability to lift 25# from overhead level. Carrying: pt demo the ability to carry 35# for 40 feet with good ability- reported increase tingling with carry. Comments: pt reported increase lifting tingling in bilateral hands increased- pt numerous times would open close hands throughout. It is indicated that with increased use of UE pts symptoms of tingling/numbness increases.
== END 2018-07-03 19:00 | disposition home or self-care (01) ==
LOC: OT 16:13
PROVIDERS: Family Provider Family Medicine; PCP Family Medicine; Referring Provider Family Medicine; Visit Provider Family Medicine
DX: R20.0 Anesthesia of skin (principal); R53.1 Weakness
CPT/HCPCS: 97750

== ENCOUNTER → 2018-07-12 07:31 | Outpatient (CLI) | payer OTHER, SELFPAY ==
[2018-02-02 16:02] VITALS: BMI 25.1
[2018-04-28 14:02] VITALS: BMI 25.1
--- NOTE | 2018-07-12 14:24 | NEURO ---
NCS and/or EMG Patient Report Ordering Doctor: Dc Glez DATE OF SERVICE: 07/12/18 Tanmay Peck is a 57-year-old male presents for electrodiagnostic testing of the upper limbs. He reports numbness and weakness in both hands. Electrodiagnostic findings: Right median motor nerve demonstrates prolonged distal latency with normal amplitude and reduced conduction velocity. Left median motor nerve demonstrates prolonged distal latency with normal amplitude and conduction velocity. Ulnar motor responses within normal limits bilaterally. Prolonged median F wave bilaterally. Prolonged right ulnar F-wave. Prolonged median sensory latency noted at the wrist bilaterally. Prolonged median palmar latency noted bilaterally. Prolonged ulnar sensory latency is noted bilaterally. Needle EMG testing reveals no evidence of denervation in muscles tested. Motor action potentials are of normal amplitude and duration. Electrodiagnostic findings: This is an abnormal study in the upper limbs. 1. Electrodiagnostic findings demonstrate bilateral median mononeuropathy. This is consistent with a moderate right carpal tunnel syndrome and a mild left carpal tunnel syndrome 2. 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 3. No electrodiagnostic evidence noted for cervical radiculopathy. If there are any further questions, please do not hesitate to contact me.
--- NOTE | 2018-07-12 14:28 | NEURO_ITS ---
NCS and/or EMG Patient Report Ordering Doctor: Dc Glez DATE OF SERVICE: 07/12/18 Tanmay Peck is a 57-year-old male presents for electrodiagnostic testing of the upper limbs. He reports numbness and weakness in both hands. Electrodiagnostic findings: Right median motor nerve demonstrates prolonged distal latency with normal amplitude and reduced conduction velocity. Left median motor nerve demonstrates prolonged distal latency with normal amplitude and conduction velocity. Ulnar motor responses within normal limits bilaterally. Prolonged median F wave bilaterally. Prolonged right ulnar F- wave. Prolonged median sensory latency noted at the wrist bilaterally. Prolonged median palmar latency noted bilaterally. Prolonged ulnar sensory latency is noted bilaterally. Needle EMG testing reveals no evidence of denervation in muscles tested. Motor action potentials are of normal amplitude and duration. Electrodiagnostic findings: This is an abnormal study in the upper limbs. 1. Electrodiagnostic findings demonstrate bilateral median mononeuropathy. This is consistent with a moderate right carpal tunnel syndrome and a mild left carpal tunnel syndrome 2. 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 3. No electrodiagnostic evidence noted for cervical radiculopathy. If there are any further questions, please do not hesitate to contact me.
== END ==
PROVIDERS: Family Provider Family Medicine; PCP Family Medicine; Referring Provider Family Medicine; Visit Provider Family Medicine
DX: R20.2 Paresthesia of skin (principal)
CPT/HCPCS: 95886; 95912

== ENCOUNTER → 2018-10-25 16:03 | Outpatient (CLI) | payer OTHER, SELFPAY ==
[2018-10-25 15:11] VITALS: BMI 25.7
[2018-10-25 17:22] LABS: Absolute Lymphocyte Count 2.21 X10^3/uL (0.83-4.51); Absolute Neutrophil Count 5.5 X10^3/uL (2.0-7.7); Basophil% 0.8 % (0-1); Eosinophils% 1.1 % (0-5); Hematocrit 47.6 % (40-54); Lymphocyte # 2.21 X10^3/ul (4.0); Mean Corp Hgb Conc 31.5 g/dL (32-36); Mean Corpuscular Hgb 29.8 pg (27.0-32.0); Mean Corpuscular Volume 94.6 fL (80-94); Mean Platelet Vol. 10.5 fl (6.2-12.0); Monocyte% 7.1 % (0-10); Neutrophil # 5.51 X10^3/uL (2.7-7.7); Neutrophil % 64.6 % (47-70); Platelet Count 231 K/mm3 (150-450); RBC Distribution Width CV 12.9 % (11.6-14.6); RBC Distribution Width SD 43.8 fl (35.1-43.9); Red Blood Count 5.03 M/mm3 (4.6-6.2); White Blood Count 8.5 K/mm3 (4.4-11.0)
[2018-10-25 17:23] LABS: Basophil# 0.07 X10^3/uL; Eosinophil# 0.09 X10^3/uL; NRBC Flagged by Analyzer 0 % (0-5)
[2018-10-25 18:11] LABS: Anion Gap 3 (5-15); BUN 14 mg/dL (7-18); BUN/Creat Ratio 14.1 RATIO (10-20); Calcium,Total 8.9 mg/dL (8.5-10.1); Chloride 107 mmol/L (98-107); Creatinine, Serum 0.99 mg/dL (0.70-1.30); EST Glomerular Filtration Rate 83 mL/min (>60); Est Glom Filt Rate - Afr Amer 100 mL/min (>60); Glucose 72 mg/dL (74-106); Potassium 4.2 mmol/L (3.5-5.1); Sodium Level 141 mmol/L (136-145); T4 Total, Thyroxin 9.6 ug/dL (4.5-12.1); Thyroid Stim Hormone (TSH) 1.97 uIU/mL (0.358-3.74)
== END ==
PROVIDERS: Family Provider Family Medicine; PCP Family Medicine; Referring Provider Internal Medicine Cardiovascular Disease; Visit Provider Internal Medicine Cardiovascular Disease
DX: I48.91 Unspecified atrial fibrillation (principal); I48.92 Unspecified atrial flutter
CPT/HCPCS: 36415; 80048; 84436; 84443; 85025

== ENCOUNTER → 2020-06-25 09:42 | Outpatient (CLI) | payer OTHER, SELFPAY ==
[2020-06-25 08:48] VITALS: BMI 27.5
[2020-06-25 10:34] LABS: Absolute Neutrophil Count 3.7 X10^3/uL (2.0-7.7); Basophil# 0.06 X10^3/uL; Eosinophil# 0.14 X10^3/uL; Eosinophils% 2.3 % (0-5); Hematocrit 50.3 % (40-54); Hemoglobin 15.9 g/dL (13.0-16.5); Lymphocyte % 26.5 % (19-41); Mean Corp Hgb Conc 31.6 g/dL (32-36); Mean Corpuscular Hgb 29.9 pg (27.0-32.0); Mean Corpuscular Volume 94.5 fL (80-94); Mean Platelet Vol. 10.5 fl (6.2-12.0); Monocyte# 0.48 X10^3/uL; Monocyte% 7.9 % (0-10); NRBC Flagged by Analyzer 0 % (0-5); Neutrophil # 3.74 X10^3/uL (2.7-7.7); Platelet Count 206 K/mm3 (150-450); RBC Distribution Width CV 12.7 % (11.6-14.6); Red Blood Count 5.32 M/mm3 (4.6-6.2)
[2020-06-25 11:11] LABS: Anion Gap 3 (5-15); BUN 13 mg/dL (7-18); BUN/Creat Ratio 13.2 RATIO (10-20); Calcium,Total 8.8 mg/dL (8.5-10.1); Chloride 106 mmol/L (98-107); Creatinine, Serum 0.98 mg/dL (0.70-1.30); EST Glomerular Filtration Rate 83 mL/min (>60); Est Glom Filt Rate - Afr Amer 100 mL/min (>60); Glucose 85 mg/dL (74-106); Potassium 4.5 mmol/L (3.5-5.1); Sodium Level 141 mmol/L (136-145)
== END ==
PROVIDERS: PCP Family Medicine; Referring Provider Nurse Practitioner Family; Visit Provider Nurse Practitioner Family
DX: R06.00 Dyspnea, unspecified (principal); I48.0 Paroxysmal atrial fibrillation; I47.2 Ventricular tachycardia; I49.3 Ventricular premature depolarization; I49.1 Atrial premature depolarization; D68.51 Activated protein C resistance
CPT/HCPCS: 36415; 80048; 83880; 85025

== ENCOUNTER → 2020-07-10 14:36 | Outpatient (CLI) | payer OTHER, SELFPAY ==
[2020-06-25 08:48] VITALS: BMI 27.5
--- NOTE | 2020-07-10 14:39 | ECHOD_ITS ---
Reason For Study: DYSPNEA/SOB Procedure This was a 2D Doppler, Color Flow transthoracic echocardiogram. The study was technically difficult. Due to arrhythmia. Exam performed in department. Left Ventricle Normal LV size. Left ventricular systolic function is normal. The estimated ejection fraction is 65 %. Unable to assess diastolic dysfunction. No regional wall motion abnormalities noted. Right Ventricle Normal RV size. Normal systolic function. Atria The left atrium is mildly enlarged. The right atrium is mildly enlarged. No doppler evidence for ASD. Mitral Valve There is no mitral annular calcification. Normal mitral valve. Trivial mitral valve insufficiency. Tricuspid Valve Normal tricuspid valve. Mild tricuspid valve insufficiency. Right ventricular systolic pressure estimated to be 30 mmHg. Aortic Valve Trisinus/trileaflet aortic valve. Normal aortic valve. Pulmonic Valve The pulmonic valve is not well visualized. Great Vessels Normal sized aortic root. Pericardium/Pleural No pericardial effusion. MMode/2D Measurements & Calculations LVIDd: 5.2 cm IVSd: 1.0 cm Ao root diam: 3.2 cm LVIDs: 3.1 cm LVPWd: 1.1 cm RVDd: 3.9 cm FS: 39.1 % LAV(MOD-bp): 88.7 ml LA A4 area: 26.0 cm2 LA dimension(2D): 4.9 cm LAV(MOD-bp) Indexed: 45.7 ml/m2 LAV(MOD-sp2): 80.6 ml LAV(MOD-sp4): 80.9 ml RA A4 area: 24.3 cm2 Doppler Measurements & Calculations MV E max ghassan: 96.6 cm/sec Ao V2 max: 103.5 cm/sec LV V1 max: 82.6 cm/sec Ao max P.3 mmHg LV V1 max P.7 mmHg TR max ghassan: 257.8 cm/sec TR max P.6 mmHg ECHO/Echo Complete Interpretation Summary The study was technically difficult. Left ventricular systolic function is normal. The estimated ejection fraction is 65 %. The left atrium is mildly enlarged. The right atrium is mildly enlarged. Trivial mitral valve insufficiency. Mild tricuspid valve insufficiency. Right ventricular systolic pressure estimated to be 30 mmHg. Unable to assess diastolic dysfunction. Ordering Physician: Robbie Sullivan Referring Physician: Dc Glez Performed By: Magdalena Corado, KEVAN, RVT
== END ==
PROVIDERS: PCP Family Medicine; Referring Provider Nurse Practitioner Family; Visit Provider Nurse Practitioner Family
DX: R06.00 Dyspnea, unspecified (principal); I48.0 Paroxysmal atrial fibrillation; I47.2 Ventricular tachycardia; I49.3 Ventricular premature depolarization; I49.1 Atrial premature depolarization; D68.51 Activated protein C resistance; R06.02 Shortness of breath
CPT/HCPCS: 93306

== ENCOUNTER 2020-12-22 12:45 | Emergency (ER) | payer BC, OTHER, SELFPAY ==
[2020-12-22 12:45] VITALS: BP 116/83; PULSE 74; RESP 18; TEMP 37.1; O2SAT 99; BMI 24.3
--- NOTE | 2020-12-22 12:57 | EKG12_ITS ---
Test Reason : SOB Blood Pressure : / mmHG Vent. Rate : 068 BPM Atrial Rate : 441 BPM P-R Int : 000 ms QRS Dur : 084 ms QT Int : 386 ms P-R-T Axes : 000 -18 -19 degrees QTc Int : 410 ms Atrial fibrillation Low voltage QRS (Limb Leads) Abnormal ECG Confirmed by JENNIFER CONDON, SHAKEEL ([id number]), supervising editor trailer ANDREI NAVARRO ([id number]) on 12/24/2020 8:30:05 AM Referred By: YAMILET/SUSAN Confirmed By:SHAKEEL RODRIGUEZ MD
--- NOTE | 2020-12-22 14:30 | EDS_ITS ---
HPI History of Present Illness Chief Complaint: Shortness of Breath Detail of Chief Complaint: Shortness of breath and lightheadedness that lasted 15 minutes with 1 minut Informant: patient and spouse/S.O. Onset/Context/Timing Onset: Today (This morning upon awakening) and Yesterday (Last evening at work) Context: sudden and exertion Timing: Intermittent (Last night's episode lasted 15 minutes this morning's episode lasted minutes as well) Quality: Positive for Orthopnea (Last night which is unusual for patient); Negative for Dyspnea on exertion, PND and Wheezing Current Severity: Gone Maximum Severity: Moderate Worsened by: Nothing Relieved by: Nothing Associated Symptoms cough and other; Negative for rhinorrhea, post nasal drip, ear pain, fever, sore throat, subjective, chills, sweats, clear sputum, white sputum, yellow sputum or green sputum Chest Pain: Positive for Intermittent (Approximately 1 minute) and Aching (Aching tight sensation) Narrative Narrative: Patient is a 60-year-old male who had an episode of lightheadedness shortness of breath lasting the last to 15 minutes. This was associated with 1 minute of chest tightness. He denied diaphoresis, nausea vomiting or radiation of pain. He denies pleuritic chest pain. Does have history of DVT and PE. He has a history of factor V Leiden deficiency. Patient states he has not missed any of his Xarelto doses. Patient denies fever, chills night sweats. He denies rhinorrhea, postnasal drainage or sore throat. He states he has chronic ringing of his ears. Said no decreased hearing or drainage from his ears. He denies any blurred vision, change in vision or double vision. He denies black or maroon-colored stool. He denies bruising easily. He denies blood in his urine or bleeding from his gums. He denies any leg pain, swelling or discoloration. He denies paresthesia, anesthesia motors. He denies problems with balance. PE Risk Factors: Positive for Prior DVT or PE; Negative for Cancer, OCP + Smokin g + > 35, Recent immobilization, Recent surgery and Recent travel Prior similar symptoms: No Recent Illness/Hospitalization: No [facility] Medical History Abscess of right thigh Acute cystitis DAYNA (acute kidney injury) Anemia Asymptomatic premature ventricular contractions Atrial fibrillation with RVR Coagulopathy Dyspnea on exertion Elevated LFTs Factor V Leiden Fever with exanthematous rash Hematuria History of DVT (deep vein thrombosis) History of pulmonary embolism 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 knee joint Paroxysmal atrial fibrillation Premature atrial contraction Septic shock Severe sepsis Syncope and collapse Wide-complex tachycardia Home Medications rivaroxaban 20 mg PO DAILY #30 tab 12/12/17 [Rx Last Taken Unknown] B-complex with vitamin C 1 tab PO DAILY 04/28/18 [History Last Taken Unknown] fludrocortisone 0.1 mg tablet 0.1 mg PO DAILY #90 tablet 05/12/20 [Rx Last Taken Unknown] metoprolol tartrate 50 mg tablet 50 mg PO BID #180 tab 05/12/20 [Rx Last Taken Unknown] Allergy/AdvReac Type Severity Reaction Status Date / Time Sulfa (Sulfonamide Allergy Unknown Verified 06/25/20 08:45 Antibiotics) vancomycin Allergy Fever and Verified 06/25/20 08:45 skin rash ceftriaxone AdvReac Rash Verified 06/25/20 08:45 linezolid AdvReac Rash Verified 06/25/20 08:45 Surgical History History of ankle surgery Status post total right knee replacement Social History (Updated 12/22/20 @ 14:[address] Brayden Melendez MD) household members: spouse Smoking Status: Never smoker alcohol intake: current details: occasional substance use type: does not use caffeine: No ROS ROS ED Constitutional Constitutional ED: Denies chills, fever(s), sweats or weight loss Eyes Eyes: Denies blurry vision, change in vision or diplopia ENT ENT ED: Reports other Details: He endorses hoarse voice for the past 3 days. ; Denies ear pain, rhinorrhea or sore throat Cardiovascular Cardiovascular: Reports chest pain and orthopnea; Denies paroxysmal nocturnal dyspnea Respiratory/Chest Respiratory/Chest: Reports orthopnea; Denies cough, dyspnea on exertion, paroxysmal nocturnal dyspnea or sputum Gastrointestinal Gastrointestinal: Denies abdominal pain, diarrhea, melena, nausea or vomiting Genitourinary Genitourinary ED: Denies dysuria, hematuria or urinary frequency Musculoskeletal Musculoskeletal: Denies arthralgias, back pain, myalgias or neck pain Integumentary Denies rash Neurologic Neurologic: Denies headache(s), paresthesias or weakness Endocrine Endocrinology: Reports polydipsia and polyuria; Denies cold intolerance, heat intolerance or polyphagia Hematologic/Lymphatic Hematologic/Lymphatic: Reports easy bruising; Denies easy bleeding EXAM Physical Exam Const Vital Signs: 12/22/20 12:45 12/22/20 14:43 12/22/20 14:44 Temperature 98.7 F Temperature Source Temporal Pulse Rate 74 70 Pulse Rate [Lying] 70 Pulse Rate [Sitting] 89 Pulse Rate [Standing] 82 Respiratory Rate 18 17 Respiratory Effort Respiratory Depth Respiratory Pattern Blood Pressure 116/83 H Blood Pressure [Lying] 117/79 Blood Pressure [Sitting] 125/93 H Blood Pressure [Standing] 107/87 H Blood Pressure Mean 94 Blood Pressure Mean [Lying] 91 Blood Pressure Mean [Sitting] 103 Blood Pressure Mean [Standing] 93 Pulse Ox 99 96 Oxygen Delivery Method Room Air Room Air 12/22/20 14:50 12/22/20 16:07 Temperature Temperature Source Pulse Rate 70 Pulse Rate [Lying] Pulse Rate [Sitting] Pulse Rate [Standing] Respiratory Rate 15 Respiratory Effort Normal Respiratory Depth Normal Respiratory Pattern Normal Blood Pressure 109/85 H Blood Pressure [Lying] Blood Pressure [Sitting] Blood Pressure [Standing] Blood Pressure Mean 93 Blood Pressure Mean [Lying] Blood Pressure Mean [Sitting] Blood Pressure Mean [Standing] Pulse Ox 98 Oxygen Delivery Method Room Air Room Air Positive well nourished and well developed General Appearance ED: well developed and NAD; Negative for pallor HEENT Reports TM's clear and moist mucous membranes atraumatic and trauma Tympanic Membrane ED: Yes TM's clear Eyes PERRL and EOMs intact bilaterally General Eye ED: Negative for pale conjunctiva or scleral icterus Neck no lymphadenopathy, supple, no meningeal signs and no JVD Resp normal respiratory effort and clear to auscultation bilaterally Cardio regular rate and no murmurs Rhythm: abnormal rhythm GI non-tender, non-distended and no masses GI Narrative: No palpable or pulsatile mass. No abdominal bruit. Auscultation: normoactive bowel sounds Palpation: soft; Negative for hepatomegaly or splenomegaly Back/Spine no CVA tenderness and normal to inspection Extremity normal to inspection General Extremety ED: Negative for edema or tenderness General Extremity: Negative for edema Neuro oriented x3 and no sensory deficits noted Sensorium / Orientation: alert Speech: speech normal Motor Exam: strength 5/5 throughout Psych mental status grossly normal Thought Process: normal thought process Skin no wounds and skin turgor normal General Skin Exam: Negative for jaundice or pallor Lesions: no lesions Rashes: no rashes MDM MDM MDM Narrative Medical decision making narrative: Patient with short duration shortness of breath and lightheadedness. He and his state that he has had problems with lightheadedness before but never with shortness of breath. The orthopnea is new as well. He denies history of coronary disease. He denies history of congestive heart failure. Will obtain troponin to assess for atypical presentation for cardiac ischemia. With him not complain shortness of breath presently compliant with Xarelto no pleuritic chest pain no swelling of his legs with discoloration or leg redness or leg vein distention doubt VTE. EKG was taken to rule out cardiac ischemia. CBC to rule out anemia. Lab Data Attestation: I reviewed the patient's lab results. Lab results narrative: High-sensitivity troponin is normal with onset of pain greater than 12 hours ago. Basic metabolic panel is unremarkable. CBC is unremarkable. Labs: Laboratory Results - last 24 hr 12/22/20 12/22/20 14:41 14:41 WBC 6.4 RBC 5.08 Hgb 15.2 Hct 46.2 MCV 90.9 MCH 29.9 MCHC 32.9 RDW Std Deviation 41.4 RDW Coeff of Donna 12.5 Plt Count 212 MPV 10.2 Immature Gran % (Auto) 0.200 Neut % (Auto) 65.9 Lymph % (Auto) 22.5 Mccracken % (Auto) 8.5 Eos % (Auto) 2.0 Baso % (Auto) 0.9 Absolute Neuts (auto) 4.2 Absolute Lymphs (auto) 1.43 Nucleated RBC % 0 Sodium 141 Potassium 4.8 Chloride 109 H Carbon Dioxide 31.0 Anion Gap 1 L BUN 15 Creatinine 0.90 Estim Creat Clear Calc 101.48 Est GFR (MDRD) Af Amer 110 Est GFR (MDRD) Non-Af 91 BUN/Creatinine Ratio 16.6 Glucose 85 Calcium 8.9 Troponin I High Sens 6 EKG Initial EKG: Attestation: I personally reviewed and interpreted this EKG as follows: Interpretation: Atrial Fibrillation (Ventricular rate 68. Cures duration 84 ms. QT duration 386 ms. [place] is normal. There is low voltage. There is no acute ischemic changes noted.) Discharge Plan Triage Chief Complaint: Shortness of Breath ED Provider: Brayden Melendez Dx/Rx/DC Orders Clinical Impression: Dyspnea, Light-headedness, Left-sided chest pain Instructions: ED Chest Pain, Noncardiac, ED Dyspnea Prescriptions: No Action B-complex with vitamin C [Super B Complex-Vitamin C] tablet 1 tab PO DAILY RF: 0 rivaroxaban 20 MG tablet 20 mg PO DAILY Qty: 30 RF: 0 fludrocortisone 0.1 mg tablet 0.1 mg PO DAILY Qty: 90 RF: 4 metoprolol tartrate 50 mg tablet 50 mg PO BID Qty: 180 RF: 4 Primary Care Provider: Dc Glez Referrals: Dc Mazariegos MD [STAFF PHYSICIAN] - 3-5 Days Dc Glez MD [Primary Care Provider] - 3-5 Days Disposition Disposition: Home, Self Care
[2020-12-22 14:43] VITALS: PULSE 70; RESP 17; O2SAT 96
[2020-12-22 14:44] VITALS: BP 107/87; BP 117/79; BP 125/93; PULSE 70; PULSE 82; PULSE 89
[2020-12-22 14:50] VITALS: O2SAT 98
[2020-12-22 15:09] LABS: Absolute Lymphocyte Count 1.43 X10^3/uL (0.83-4.51); Absolute Neutrophil Count 4.2 X10^3/uL (2.0-7.7); Basophil# 0.06 X10^3/uL; Basophil% 0.9 % (0-1); Eosinophil# 0.13 X10^3/uL; Hematocrit 46.2 % (40-54); Hemoglobin 15.2 g/dL (13.0-16.5); Lymphocyte # 1.43 X10^3/ul (0.83-4.51); Lymphocyte % 22.5 % (19-41); Mean Corp Hgb Conc 32.9 g/dL (32-36); Mean Corpuscular Hgb 29.9 pg (27.0-32.0); Mean Corpuscular Volume 90.9 fL (80-94); Mean Platelet Vol. 10.2 fl (6.2-12.0); Monocyte# 0.54 X10^3/uL; Monocyte% 8.5 % (0-10); NRBC Flagged by Analyzer 0 % (0-5); Neutrophil # 4.19 X10^3/uL (2.7-7.7); Neutrophil % 65.9 % (47-70); Platelet Count 212 K/mm3 (150-450); RBC Distribution Width CV 12.5 % (11.6-14.6); RBC Distribution Width SD 41.4 fl (35.1-43.9); Red Blood Count 5.08 M/mm3 (4.6-6.2); White Blood Count 6.4 K/mm3 (4.4-11.0)
[2020-12-22 15:27] LABS: Anion Gap 1 (5-15); BUN 15 mg/dL (7-18); BUN/Creat Ratio 16.6 RATIO (10-20); Calcium,Total 8.9 mg/dL (8.5-10.1); Chloride 109 mmol/L (98-107); EST Glomerular Filtration Rate 91 mL/min (>60); Est Glom Filt Rate - Afr Amer 110 mL/min (>60); Estimated Creatinine Clearance 101.48 ml/min; Glucose 85 mg/dL (74-106); Potassium 4.8 mmol/L (3.5-5.1); Sodium Level 141 mmol/L (136-145); Troponin-I HS 6 pg/mL (3.0-78.0)
[2020-12-22 16:07] VITALS: BP 109/85; PULSE 70; RESP 15; O2SAT 98
[2020-12-22 17:17] VITALS: BP 122/74; PULSE 78; RESP 18; O2SAT 98
== END 2020-12-22 17:18 | disposition home or self-care (01) ==
PROVIDERS: Emergency Provider Emergency Medicine; PCP Family Medicine
DX: R06.00 Dyspnea, unspecified (principal); R42 Dizziness and giddiness; R07.9 Chest pain, unspecified; I48.0 Paroxysmal atrial fibrillation; Z79.01 Long term (current) use of anticoagulants; Z86.711 Personal history of pulmonary embolism; Z86.718 Personal history of other venous thrombosis and embolism; Z79.899 Other long term (current) drug therapy
CPT/HCPCS: 80048; 84484; 85025; 93005; 99285

== ENCOUNTER → 2021-07-31 | Outpatient (CLI) | payer SELFPAY ==
[2021-07-31 12:52] LABS: Anion Gap 3 (5-15); BUN 17 mg/dL (7-18); BUN/Creat Ratio 16.5 RATIO (10-20); Calcium,Total 9.2 mg/dL (8.5-10.1); Chloride 106 mmol/L (98-107); Cholesterol 189 mg/dL (200); Creatinine, Serum 1.03 mg/dL (0.70-1.30); EST Glomerular Filtration Rate 78 mL/min (>60); Est Glom Filt Rate - Afr Amer 95 mL/min (>60); Glucose 86 mg/dL (74-106); High Density Lipoprotein 56 mg/dL; PSA,Total - Annual Screen 0.76 ng/mL (0.00-4.00); Potassium 3.9 mmol/L (3.5-5.1); Sodium Level 140 mmol/L (136-145); Triglycerides 70 mg/dL; Very Low Density Lipoprotein 14 mg/dL (5-40)
== END | disposition home or self-care (01) ==
LOC: MFPLAB 10:50
PROVIDERS: PCP Family Medicine; Referring Provider Family Medicine; Visit Provider Family Medicine
DX: Z00.00 Encounter for general adult medical examination without abnormal findings (principal)
CPT/HCPCS: 36415; 80048; 80061; 84153; G0103

== ENCOUNTER → 2021-09-01 | Outpatient (CLI) | payer SELFPAY ==
--- NOTE | 2021-09-01 10:34 | ART_ITS ---
Reason For Study: Pain Procedure A bilateral lower extremity continuous wave Doppler with analog waveform analysis,segmental pressures,and ankle brachial indexes with exercise. Left Segmental Pressures Left brachial= 119mmHg. Left posterior tibial artery = 166mmHg. Left dorsalis pedis artery = 146mmHg. The left dorsalis pedis waveforms are triphasic. The left posterior tibial artery waveforms are triphasic. Right Segmental Pressures Right brachial= 122mmHg. Right posterior tibial artery = 165mmHg. Right dorsalis pedis artery = 158mmHg. The right dorsalis pedis waveforms are triphasic. The right posterior tibial artery waveforms are triphasic. Indices The right ankle brachial index by the dorsalis pedis is 1.30. The right ankle brachial index by the posterior tibial artery is 1.35. The right post exercise ankle brachial index is 1.28. The left ankle brachial index by the dorsalis pedis is 1.20. The left ankle brachial index by the posterior tibial artery is 1.36. The left post exercise ankle brachial index is 1.42. VL/Lower Ext Art Exam w/ Exercise Interpretation Summary Triphasic Doppler waveforms are noted at ankle level bilaterally. Pulse-volume recordings appear satisfactory at ankle level bilaterally. Resting ankle-brachial indices are nor mal bilaterally. The patient was ambulated on a treadmill for 5 minutes at 1.5 MPH and a 5% grade, f ollowing which ankle pressures augmented bilaterally, a normal physiological response. There is no evidence of significant arterial occlusive disease in the lower ext remities bilaterally. Ordering Physician: Dc Glez Referring Physician: Dc Glez Performed By: Ayah Sosa RVT
== END | disposition home or self-care (01) ==
PROVIDERS: PCP Family Medicine; Visit Provider Family Medicine
DX: M79.604 Pain in right leg (principal); M79.605 Pain in left leg
CPT/HCPCS: 93924

== ENCOUNTER → 2021-09-16 | Outpatient (CLI) | payer SELFPAY ==
[2021-09-16 10:47] LABS: Hematocrit 46.4 % (40-54); Mean Corp Hgb Conc 32.3 g/dL (32-36); Mean Corpuscular Hgb 30.7 pg (27.0-32.0); Mean Corpuscular Volume 94.9 fL (80-94); Mean Platelet Vol. 11.4 fl (6.2-12.0); Platelet Count 193 K/mm3 (150-450); RBC Distribution Width CV 13.3 % (11.6-14.6); RBC Distribution Width SD 46.7 fl (35.1-43.9); Red Blood Count 4.89 M/mm3 (4.6-6.2); White Blood Count 6.9 K/mm3 (4.4-11.0)
[2021-09-16 11:12] LABS: Anion Gap 5 (5-15); BUN 16 mg/dL (7-18); BUN/Creat Ratio 15.1 RATIO (10-20); Calcium,Total 8.8 mg/dL (8.5-10.1); Chloride 107 mmol/L (98-107); Creatinine, Serum 1.06 mg/dL (0.70-1.30); EST Glomerular Filtration Rate 76 mL/min (>60); Est Glom Filt Rate - Afr Amer 91 mL/min (>60); Glucose 88 mg/dL (74-106); Potassium 4.1 mmol/L (3.5-5.1); Sodium Level 142 mmol/L (136-145)
== END | disposition home or self-care (01) ==
PROVIDERS: PCP Family Medicine; Referring Provider Nurse Practitioner Family; Visit Provider Nurse Practitioner Family
DX: R55 Syncope and collapse (principal); I47.2 Ventricular tachycardia; I48.0 Paroxysmal atrial fibrillation; I49.3 Ventricular premature depolarization; I49.1 Atrial premature depolarization
CPT/HCPCS: 36415; 80048; 85027; 93225; 93226

== ENCOUNTER 2021-11-10 16:00 | Inpatient (IN) | payer OTHER, SELFPAY ==
[2021-11-10 16:01] VITALS: BP 134/82; PULSE 45; RESP 16; TEMP 36.6; O2SAT 97; BMI 25.2
[2021-11-10 19:18] VITALS: PULSE 41; RESP 12; O2SAT 99
[2021-11-10 19:32] VITALS: BP 120/71; BP 135/78; BP 141/75; PULSE 41; PULSE 44; PULSE 52
--- NOTE | 2021-11-10 19:33 | EX.ED.DYSGE1 ---
HPI History of Present Illness Chief Complaint: Syncope Informant: patient Onset/Context/Timing Onset: Today Context: Sudden Onset Timing: Intermittent and Lasts (Few seconds) Quality: Dizzy, lightheaded Location: Generalized Worsened by: Nothing Relieved by: Nothing Narrative Narrative: Patient presents with syncopal episode that occurred today. Patient states he was feeling lightheaded and dizzy. Patient states he sat down on the floor and laid down. Patient states he then passed out for a few seconds. Patient denies any palpitations. Patient denies any shortness of breath. Patient states he did have some palpitations yesterday but was not feeling any heart racing or skipping tonight. Patient denies any chest pain. Patient denies any nausea or vomiting. [facility] Medical History Abscess of right thigh Acute cystitis DAYNA (acute kidney injury) Anemia Asymptomatic premature ventricular contractions Atrial fibrillation with RVR Coagulopathy Dyspnea on exertion Elevated LFTs Factor V Leiden Fever with exanthematous rash Hematuria History of DVT (deep vein thrombosis) History of pulmonary embolism 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 knee joint Paroxysmal atrial fibrillation Premature atrial contraction Septic shock Severe sepsis Syncope and collapse Ventricular tachycardia Wide-complex tachycardia Home Medications fludrocortisone 0.1 mg tablet 0.1 mg PO DAILY #90 tabs 01/29/21 [Rx Last Taken Unknown] rivaroxaban 20 mg tablet 20 mg PO DAILY #90 tabs 06/16/21 [Rx Last Taken Unknown] metoprolol tartrate 25 mg tablet 25 mg PO BID #180 tabs 09/29/21 [Rx Last Taken Unknown] amiodarone 200 mg tablet 200 mg PO BID 11/10/21 [History Last Taken Unknown] Allergy/AdvReac Type Severity Reaction Status Date / Time Sulfa (Sulfonamide Allergy Unknown Verified 11/10/21 16:01 Antibiotics) vancomycin Allergy Fever and Verified 11/10/21 16:01 skin rash ceftriaxone AdvReac Rash Verified 11/10/21 16:01 linezolid AdvReac Rash Verified 11/10/21 16:01 Family History (Updated 11/10/21 @ 19:[address] America Lei MD) Mother Ulcerative colitis Grandfather No problems noted. Father Diabetes Hypertension BPH (benign prostatic hyperplasia) Surgical History History of ankle surgery Status post total right knee replacement Social History household members: spouse Smoking Status: Never smoker alcohol intake: current details: occasional substance use type: does not use caffeine: No ROS ROS ED Constitutional Constitutional ED: Denies chills or fever(s) Eyes Eyes: Denies blurry vision or change in vision ENT ENT ED: Denies rhinorrhea or sore throat Cardiovascular Cardiovascular: Reports palpitations; Denies chest pain Respiratory/Chest Respiratory/Chest: Denies cough or dyspnea Gastrointestinal Gastrointestinal: Denies nausea or vomiting Genitourinary Genitourinary ED: Denies dysuria or hematuria Musculoskeletal Musculoskeletal: Reports back pain; Denies neck pain Integumentary Denies abscess or rash Neurologic Neurologic: Denies headache(s) or weakness Allergic/Immunologic Allergic/Immunologic ED: Denies mouth swelling or urticaria EXAM Physical Exam Const Vital Signs: 11/10/21 16:01 11/10/21 19:18 11/10/21 19:18 Temperature 97.9 F Temperature Source Temporal Pulse Rate 45 L 41 L Pulse Rate [Lying] Pulse Rate [Sitting (for 1 minute prior to obtaining)] Pulse Rate [Standing (for 1 minute prior to obtaining)] Respiratory Rate 16 12 Respiratory Effort Respiratory Pattern Blood Pressure 134/82 H Blood Pressure [Lying] Blood Pressure [Sitting (for 1 minute prior to obtaining)] Blood Pressure [Standing (for 1 minute prior to obtaining)] Blood Pressure Mean 99 Blood Pressure Mean [Lying] Blood Pressure Mean [Sitting (for 1 minute prior to obtaining)] Blood Pressure Mean [Standing (for 1 minute prior to obtaining)] Pulse Ox 97 99 Oxygen Delivery Method Room Air Room Air Room Air 11/10/21 19:20 11/10/21 19:32 Temperature Temperature Source Pulse Rate Pulse Rate [Lying] 41 L Pulse Rate [Sitting (for 1 minute prior to obtaining)] 44 L Pulse Rate [Standing (for 1 minute prior to obtaining)] 52 L Respiratory Rate Respiratory Effort Normal Non-Labored Respiratory Pattern Normal Blood Pressure Blood Pressure [Lying] 120/71 Blood Pressure [Sitting (for 1 minute prior to obtaining)] 141/75 H Blood Pressure [Standing (for 1 minute prior to obtaining)] 135/78 H Blood Pressure Mean Blood Pressure Mean [Lying] 87 Blood Pressure Mean [Sitting (for 1 minute prior to obtaining)] 97 Blood Pressure Mean [Standing (for 1 minute prior to obtaining)] 97 Pulse Ox Oxygen Delivery Method Positive well nourished and well developed General Appearance ED: well developed HEENT Reports moist mucous membranes Neck supple and no JVD Resp normal respiratory effort and clear to auscultation bilaterally Cardio regular rhythm and no murmurs Rate: bradycardia GI normal to inspection, nondistended, normoactive bowel sounds and non-tender Palpation: soft Extremity normal to inspection General Extremety ED: Negative for edema or tenderness General Extremity: Negative for edema Neuro oriented x3, CN's II-XII intact bilaterally and no sensory deficits noted Sensorium / Orientation: alert Motor Exam: strength 5/5 throughout Psych mental status grossly normal Skin no rashes or lesions noted MDM MDM MDM Narrative Medical decision making narrative: EKG was obtained. On my interpretation, shows sinus bradycardia with a rate of 40. RI interval and QRS intervals were within normal limits. QTc interval was normal. There is left axis deviation at -34. There are no acute ST or T wave changes. Previous EKG dated 12/22/2020 shows atrial fibrillation but was otherwise unchanged. CBC was obtained and was within normal limits. Comprehensive metabolic profile was within normal limits. High-sensitivity troponin was normal. Orthostatic vital signs were obtained and were within normal limits. Portable 1 view chest x-ray was obtained. On my interpretation, lung teixeira are clear. There is normal cardiac silhouette. Bony thorax is normal. There is no acute process noted. Radiologist also interpreted the x-ray and agrees. Due to the patient's bradycardia, I feel the patient would benefit from admission to the hospital. Case was discussed with the hospitalist. She will admit the patient to her service. Patient understood and was agreeable with the plan. All questions were answered. Lab Data Attestation: I reviewed the patient's lab results. Labs: Laboratory Results - last 24 hr 11/10/21 11/10/21 19:30 19:30 WBC 6.1 RBC 4.89 Hgb 14.8 Hct 45.1 MCV 92.2 MCH 30.3 MCHC 32.8 RDW Std Deviation 46.2 H RDW Coeff of Donna 13.3 Plt Count 192 MPV 10.1 Immature Gran % (Auto) 0.300 Neut % (Auto) 63.3 Lymph % (Auto) 24.3 Cole % (Auto) 8.5 Eos % (Auto) 2.3 Baso % (Auto) 1.3 H Absolute Neuts (auto) 3.9 Absolute Lymphs (auto) 1.49 Nucleated RBC % 0 Sodium 142 Potassium 4.0 Chloride 107 Carbon Dioxide 30.0 Anion Gap 5 BUN 18 Creatinine 1.08 Estim Creat Clear Calc 83.51 Est GFR (MDRD) Af Amer 89 Est GFR (MDRD) Non-Af 74 BUN/Creatinine Ratio 16.7 Glucose 87 Calcium 9.1 Total Bilirubin 1.10 H AST 16 ALT 17 Alkaline Phosphatase 80 Troponin I High Sens 8 Total Protein 7.3 Albumin 3.8 Globulin 3.5 Albumin/Globulin Ratio 1.1 Radiography Chest X-Ray - ED: 1 View, Read by ED Physician, Read by Radiologist and No Acute Disease EKG Initial EKG: Attestation: I personally reviewed and interpreted this EKG as follows: Interpretation: No Acute Injury Pattern and Sinus Bradycardia (40) Prior EKG tracings: available for review Prior: Unchanged (12/22/2020) Discharge Plan Triage Chief Complaint: Syncope ED Provider: Dhruv De La Fuente Dx/Rx/DC Orders Clinical Impression: Syncope and collapse, Bradycardia Prescriptions: No Action metoprolol tartrate 25 mg tablet 25 mg PO BID Qty: 180 3RF amiodarone 200 mg tablet 200 mg PO BID fludrocortisone 0.1 mg tablet 0.1 mg PO DAILY Qty: 90 4RF rivaroxaban 20 mg tablet 20 mg PO DAILY Qty: 90 3RF Primary Care Provider: Dc Glez Referrals: Dc Glez MD [Primary Care Provider] - Disposition Disposition: Acute Care Hospital [facility]
--- NOTE | 2021-11-10 19:48 | RAD_ITS ---
STUDY: AP UPRIGHT CHEST X-RAY OF 1949 HOURS ON 11/10/2021 REASON FOR EXAM: 61-year-old male with syncope. TECHNIQUE: A 2 view portable AP upright chest x-ray was performed per protocol COMPARISON: 12/11/2017. FINDINGS: Moderate osteophytic degenerative changes of the thoracic spine. Otherwise, normal osseous structures. Mild cardiomegaly, unchanged since the previous study of 12/11/2017. No heart failure, infiltrates, atelectasis, effusion. No pulmonary mass lesions. Mild emphysema. No significant interval change since the previous study of 12/11/2017. RAD/Chest 1 View (Portable) IMPRESSION: 1. No significant interval change since the previous study of 12/11/2017. 2. Mild cardiomegaly without heart failure. 3. Mild emphysema. 4. No other active cardiopulmonary disease. Electronically Signed: Fritz Erwin MD at 20:26 EDT ,
[2021-11-10 19:52] LABS: Absolute Lymphocyte Count 1.49 X10^3/uL (0.83-4.51); Absolute Neutrophil Count 3.9 X10^3/uL (2.0-7.7); Basophil# 0.08 X10^3/uL; Basophil% 1.3 % (0-1); Eosinophil# 0.14 X10^3/uL; Eosinophils% 2.3 % (0-5); Hematocrit 45.1 % (40-54); Hemoglobin 14.8 g/dL (13.0-16.5); Lymphocyte # 1.49 X10^3/ul (0.83-4.51); Lymphocyte % 24.3 % (19-41); Mean Corp Hgb Conc 32.8 g/dL (32-36); Mean Corpuscular Hgb 30.3 pg (27.0-32.0); Mean Corpuscular Volume 92.2 fL (80-94); Mean Platelet Vol. 10.1 fl (6.2-12.0); Monocyte# 0.52 X10^3/uL; Monocyte% 8.5 % (0-10); NRBC Flagged by Analyzer 0 % (0-5); Neutrophil # 3.88 X10^3/uL (2.7-7.7); Neutrophil % 63.3 % (47-70); Platelet Count 192 K/mm3 (150-450); RBC Distribution Width CV 13.3 % (11.6-14.6); RBC Distribution Width SD 46.2 fl (35.1-43.9); Red Blood Count 4.89 M/mm3 (4.6-6.2); White Blood Count 6.1 K/mm3 (4.4-11.0)
[2021-11-10 20:12] LABS: ALB/GLOB Ratio 1.1 RATIO (0.9-2.4); AST(SGOT) 16 U/L (15-37); Alanine Aminotransfer ALT/SGPT 17 U/L (16-61); Albumin, Serum 3.8 g/dL (3.2-5.0); Alkaline Phosphatase 80 U/L (45-117); Anion Gap 5 (5-15); BUN 18 mg/dL (7-18); BUN/Creat Ratio 16.7 RATIO (10-20); Calcium,Total 9.1 mg/dL (8.5-10.1); Chloride 107 mmol/L (98-107); Creatinine, Serum 1.08 mg/dL (0.70-1.30); EST Glomerular Filtration Rate 74 mL/min (>60); Est Glom Filt Rate - Afr Amer 89 mL/min (>60); Estimated Creatinine Clearance 83.51 ml/min; Globulin 3.5 g/dL (2.2-4.2); Glucose 87 mg/dL (74-106); Protein, Total 7.3 g/dL (6.4-8.2); Sodium Level 142 mmol/L (136-145); Troponin-I HS (w/2H Reflex) 8 pg/mL (3.0-78.0)
--- NOTE | 2021-11-10 20:29 | PCM.HP.STD ---
HPI - General General Date of Admission: 11/10/21 Date of Service: 11/10/21 Chief Complaint: Syncope, tachycardia, bradycardia. HPI Narrative The patient is a 61 y/o M w/ PMHx: Hx Syncopal events, PAF, Hx frequent PAC/PVC, Hx Wide-complex tachycardia with ? ventricular rhythm versus atrial fibrillation with aberrancy on holter monitor, Factor V Leiden with prior VTE (DVT, PE), Hx DRESS, Previously on coumadin with unfortunate supratherapeutic INR with associated retroperitoneal bleed transitioned eventually to andreas who presents to the [facility] ED on 11/10/21 with history of onset the evening prior to presentation while at rest palpitations, sensation of racing heart which eventually subsided; however, upon day of presentation at ~ 2:30 pm onset while in the restroom getting ready for work lightheadedness, dizziness with near syncope sensation prompting him to try to lay himself down, knocking a chair down while doing so with eventual syncope, noted to have lasted maximum 5 seconds, found diaphoretic and pale per family. He recalls the entire event. He notes he does have chronic issues with lightheadedness and dizziness with positional changes often. He was able to get up from the bathroom floor and go to the EMS transport without any notable symptoms. Since transition to the ED he notes feeling improved even with noted persistent bradycardia while in the ED with rates 30-40s. He denies any marked or recurrent symptoms with orthostatic VS assessment in the ED. In the ED included or the static vital signs with laying BP 120/71, heart rate 41, sitting BP 141/75, heart rate 44, standing BP 135/78, heart rate 52 noted to be asymptomatic with no lightheadedness or dizziness at that time, initial presentation EKG vital signs included T97.9, heart rate 45, BP 134/82, respiratory rate 16, 97% on room air, chest x-ray with mild cardiomegaly with no overt evidence of overload, mild emphysematous changes with otherwise no acute cardiopulmonary finding, EKG with sinus bradycardia with no acute evidence of ischemia and noted continued bradycardia with rate down into the 30s on monitor during evaluation, CBC with WC 6.1, hemoglobin 14.8, platelet 192 without marked shift, CMP unremarkable aside mild total bilirubin elevation 1.10. Discussed case with Dr. Moodispaw upon patient admission as prior recent Cardiology notes discuss concept of possible pacemaker placement needs. [facility] Medical History Abscess of right thigh Acute cystitis DAYNA (acute kidney injury) Anemia Asymptomatic premature ventricular contractions Atrial fibrillation with RVR Coagulopathy Dyspnea on exertion Elevated LFTs Factor V Leiden Fever with exanthematous rash Hematuria History of DVT (deep vein thrombosis) History of pulmonary embolism 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 knee joint Paroxysmal atrial fibrillation Premature atrial contraction Septic shock Severe sepsis Syncope and collapse Ventricular tachycardia Wide-complex tachycardia Home Medications fludrocortisone 0.1 mg tablet 0.1 mg PO DAILY #90 tabs 01/29/21 [Rx Last Taken Unknown] rivaroxaban 20 mg tablet 20 mg PO DAILY #90 tabs 06/16/21 [Rx Last Taken Unknown] metoprolol tartrate 25 mg tablet 25 mg PO BID #180 tabs 09/29/21 [Rx Last Taken Unknown] amiodarone 200 mg tablet 200 mg PO BID 11/10/21 [History Last Taken Unknown] Allergy/AdvReac Type Severity Reaction Status Date / Time Sulfa (Sulfonamide Allergy Unknown Verified 11/10/21 16:01 Antibiotics) vancomycin Allergy Fever and Verified 11/10/21 16:01 skin rash ceftriaxone AdvReac Rash Verified 11/10/21 16:01 linezolid AdvReac Rash Verified 11/10/21 16:01 Family History Mother Ulcerative colitis Grandfather No problems noted. 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 HEENT: Eyes: No visual loss, blurred vision, double vision or yellow sclerae. Ears, Nose, Throat: No hearing loss, sneezing, congestion, runny nose or sore throat. SKIN: No rash or itching, lesions, wounds. CARDIOVASCULAR: + Syncope/LH/Dizziness, palpitations. No chest pain, chest pressure or chest discomfort, edema, orthopnea. RESPIRATORY: No shortness of breath, cough or sputum, wheezing, hemoptysis. GASTROINTESTINAL: No anorexia, nausea, vomiting or diarrhea, abdominal pain, melena, BRBPR. GENITOURINARY: No dysuria, frequency, urgency or retention. NEUROLOGICAL: + LH/Dizziness, syncope. No headache, paralysis, ataxia, numbness or tingling in the extremities, focal weakness, change in bowel or bladder control, seizure. MUSCULOSKELETAL: No muscle, back pain, joint pain or stiffness. HEMATOLOGIC: + anemia, bleeding or bruising. LYMPHATICS: No enlarged nodes. No history of splenectomy. PSYCHIATRIC: No history of depression or anxiety. ENDOCRINOLOGIC: + reports of sweating. No cold or heat intolerance. No polyuria or polydipsia. ALLERGIES: No history of asthma, hives, eczema or rhinitis. Vital Signs Vital Signs Vital Signs: 11/10/21 16:01 11/10/21 19:18 11/10/21 19:18 Temperature 97.9 F Temperature Source Temporal Pulse Rate 45 L 41 L Pulse Rate [Lying] Pulse Rate [Sitting (for 1 minute prior to obtaining)] Pulse Rate [Standing (for 1 minute prior to obtaining)] Respiratory Rate 16 12 Respiratory Effort Respiratory Pattern Blood Pressure 134/82 H Blood Pressure [Lying] Blood Pressure [Sitting (for 1 minute prior to obtaining)] Blood Pressure [Standing (for 1 minute prior to obtaining)] Blood Pressure Mean 99 Blood Pressure Mean [Lying] Blood Pressure Mean [Sitting (for 1 minute prior to obtaining)] Blood Pressure Mean [Standing (for 1 minute prior to obtaining)] Pulse Ox 97 99 Oxygen Delivery Method Room Air Room Air Room Air 11/10/21 19:20 11/10/21 19:32 Temperature Temperature Source Pulse Rate Pulse Rate [Lying] 41 L Pulse Rate [Sitting (for 1 minute prior to obtaining)] 44 L Pulse Rate [Standing (for 1 minute prior to obtaining)] 52 L Respiratory Rate Respiratory Effort Normal Non-Labored Respiratory Pattern Normal Blood Pressure Blood Pressure [Lying] 120/71 Blood Pressure [Sitting (for 1 minute prior to obtaining)] 141/75 H Blood Pressure [Standing (for 1 minute prior to obtaining)] 135/78 H Blood Pressure Mean Blood Pressure Mean [Lying] 87 Blood Pressure Mean [Sitting (for 1 minute prior to obtaining)] 97 Blood Pressure Mean [Standing (for 1 minute prior to obtaining)] 97 Pulse Ox Oxygen Delivery Method Weight Weight: 197 lb Body Mass Index (BMI) 25.2 Physical Exam Narrative Physical Examination: General: Awake, alert, oriented x 3 and cooperative, seated upright in the ED bed in no apparent distress. Skin: Normal color, normal turgor, no icterus, no cyanosis. HEENT: AT/NC, EOMI, PERRLA, MMM, no carotid bruits or JVD noted. Lungs: Mildly diminished, greater bases, appropriate effort, no rales, ronchi or wheezing. Heart: Bradycardic with regular rhythm; no gallop, rub audible, + SM. Abdomen: Soft, NTTP, ND, normal BS, no HSM. Extremities: No cyanosis, clubbing, or edema. Neurological: Patient awake, alert, oriented as noted, cognitive function intact; pupils equally reactive to light and accommodation, cranial nerves II-XII grossly normal, moving all 4 extremities, no focal deficits, strength improved, mildly globally decreased. Psychiatric: Affect appears mildly fatigued otherwise normal, no acute evidence of depressive or anxiety feelings. Results Lab / Micro Data Result Diagrams: 11/10/21 19:30 11/10/21 19:30 Labs: Laboratory Results - last 24 hr 11/10/21 19:30: WBC 6.1, RBC 4.89, Hgb 14.8, Hct 45.1, MCV 92.2, MCH 30.3, MCHC 32.8, RDW Std Deviation 46.2 H, RDW Coeff of Donna 13.3, Plt Count 192, MPV 10.1, Immature Gran % (Auto) 0.300, Neut % (Auto) 63.3, Lymph % (Auto) 24.3, Phelps % (Auto) 8.5, Eos % (Auto) 2.3, Baso % (Auto) 1.3 H, Absolute Neuts (auto) 3.9, Absolute Lymphs (auto) 1.49, Nucleated RBC % 0 11/10/21 19:30: Sodium 142, Potassium 4.0, Chloride 107, Carbon Dioxide 30.0, Anion Gap 5, BUN 18, Creatinine 1.08, Estim Creat Clear Calc 83.51, Est GFR (MDRD) Af Amer 89, Est GFR (MDRD) Non-Af 74, BUN/Creatinine Ratio 16.7, Glucose 87, Calcium 9.1, Total Bilirubin 1.10 H, AST 16, ALT 17, Alkaline Phosphatase 80, Troponin I High Sens 8, Total Protein 7.3, Albumin 3.8, Globulin 3.5, Albumin/Globulin Ratio 1.1 Radiology Impression Chest X-Ray 11/10/21 19:48 IMPRESSION: 1. No significant interval change since the previous study of 12/11/2017. 2. Mild cardiomegaly without heart failure. 3. Mild emphysema. 4. No other active cardiopulmonary disease. Electronically Signed: Fritz Erwin MD at 20:26 EDT , Assessment & Plan Assessment/Plan (1) Syncope and collapse: (2) Bradycardia: PLAN: Plan The patient is a 61 y/o M w/ PMHx: Hx Syncopal events, PAF, Hx frequent PAC/PVC, Hx Wide-complex tachycardia with ? ventricular rhythm versus atrial fibrillation with aberrancy on holter monitor, Factor V Leiden with prior VTE (DVT, PE), Hx DRESS, Previously on coumadin with unfortunate supratherapeutic INR with associated retroperitoneal bleed transitioned eventually to xarelto who presents to the [facility] ED on 11/10/21 with history of onset the evening prior to presentation while at rest palpitations, sensation of racing heart which eventually subsided; however, upon day of presentation at ~ 2:30 pm onset while in the restroom getting ready for work lightheadedness, dizziness with near syncope sensation prompting him to try to lay himself down, knocking a chair down while doing so with eventual syncope, noted to have lasted maximum 5 seconds, found diaphoretic and pale per family. He recalls the entire event. #1. Syncopal Event with associated bradycardia and potentially tachycardia in the evening prior: EKG in ED w/ sinus bradycardia without evidence of acute ischemia, CXR w/ no acute cardiopulmonary findings, initial trop normal. Will admit to PCU, place on a monitored bed, will cycle cardiac enzymes, will obtain magnesium as well as TSH level, will obtain echocardiogram, maintain on fall precautions, cardiology consulted and aware of case with planned evaluation a.m. and at this time plan continuation of Xarelto regimen with hold on metoprolol and amiodarone given bradycardia. #2. PAF with history frequent PAC/PVC, history of wide-complex tachycardia: Patient with recent Holter monitor assessment, closely following with cardiology, will hold metoprolol and amiodarone temporarily given bradycardia upon presentation as noted, resume once appropriate, continue home Xarelto regimen. #3. History of syncopal events with orthostatic hypotension history: Will continue home fludrocortisone oral regimen. #4. Factor V Leiden with Prior VTE: Prior history of DVT, PE, also noted recurrent events, history of retroperitoneal bleed on coumadin w/ supratherapeutic INR, transitioned to xarelto, will continue. #5. Hx DRESS: Patient with history 2018 with notable elevated LFT, bili at that time, since normalized, admission T bili mildly elevated 1.10, plan repeat CMP in AM. #6. DVT prophylaxis: SCDs, continue home xarelto regimen. Charges/Coding Visit Charges OBSV E&M: 41097 Initial observation care L3
[2021-11-10 20:52] VITALS: BP 125/90; PULSE 39; RESP 18; TEMP 36.7; O2SAT 98
[2021-11-10 21:13] LABS: Magnesium 2.5 mg/dL (1.6-2.6)
--- NOTE | 2021-11-10 21:23 | ECHOD_ITS ---
Reason For Study: BRADYCARDIA Procedure This was a 2D Doppler, Color Flow transthoracic echocardiogram. The exam was of adequate technical quality. Exam performed portable in patient room. Left Ventricle Normal LV size. Left ventricular systolic function is normal. The estimated ejection fraction is 60 %. Diastolic function is indeterminate. No regional wall motion abnormalities noted. Right Ventricle Normal RV size. Normal systolic function. Atria The left atrium is mildly enlarged. Normal right atrium. No doppler evidence for ASD. Mitral Valve There is no mitral annular calcification. Normal mitral valve. Mild (1+) mitral valve insufficiency. Tricuspid Valve Normal tricuspid valve. Mild tricuspid valve insufficiency. Right ventricular systolic pressure estimated to be 36 mmHg. Aortic Valve Trisinus/trileaflet aortic valve. Normal aortic valve. Pulmonic Valve The pulmonic valve is not well visualized. Trivial pulmonic valve insufficiency. Great Vessels Normal sized aortic root. Pericardium/Pleural No pericardial effusion. MMode/2D Measurements & Calculations LVIDd: 6.0 cm IVSd: 0.80 cm Ao root diam: 3.4 cm LVIDs: 3.8 cm LVPWd: 0.81 cm RVDd: 4.2 cm FS: 36.2 % LAV(MOD-bp): 88.7 ml LVAd ap4: 45.9 cm2 SV(MOD-sp4): 131.6 ml LAV(MOD-bp) Indexed: 41.9 ml/m2 LVLd ap4: 8.9 cm LAV(MOD-sp2): 83.3 ml EDV(MOD-sp4): 199.8 ml LAV(MOD-sp4): 80.5 ml EDV(sp4-el): 201.9 ml LVAs ap4: 24.0 cm2 LVLs ap4: 6.9 cm ESV(MOD-sp4): 68.2 ml ESV(sp4-el): 70.5 ml EF(MOD-sp4): 65.9 % EF(sp4-el): 65.1 % SV(sp4-el): 131.4 ml LA A4 area: 26.5 cm2 LA dimension(2D): 4.4 cm RA A4 area: 23.6 cm2 Time Measurements MV dec time: 0.19 sec Doppler Measurements & Calculations MV E max micheal: 70.2 cm/sec Lat Peak E' Michael: 14.1 cm/sec Med Peak E' Michael: 8.8 cm/sec MV A max michael: 59.6 cm/sec E/E' lat: 5.0 E/E' med: 7.9 MV E/A: 1.2 Ao V2 max: 130.4 cm/sec LV V1 max: 123.0 cm/sec PA V2 max: 87.1 cm/sec Ao max P.8 mmHg LV V1 max P.1 mmHg TR max michael: 287.1 cm/sec TR max P.0 mmHg ECHO/Echo Complete Interpretation Summary Left ventricular systolic function is normal. The estimated ejection fraction is 60 %. The left atrium is mildly enlarged. Mild (1+) mitral valve insufficiency. Mild tricuspid valve insufficiency. Trivial pulmonic valve insufficiency. Right ventricular systolic pressure estimated to be 36 mmHg. Diastolic function is indeterminate. Ordering Physician: America Lei Referring Physician: DC LOPEZ Performed By: Nieves Johns RDCS
[2021-11-10 21:24] VITALS: BMI 24.1
[2021-11-10 21:36] VITALS: PULSE 48
[2021-11-10 21:41] VITALS: BP 130/65; PULSE 77; RESP 18; TEMP 36.5; O2SAT 100
[2021-11-10 21:50] LABS: Reflex Troponin-HS? (from REC) Y
[2021-11-10 22:25] LABS: Troponin-I HS 8 pg/mL (3.0-78.0)
[2021-11-10] MEDS: 0.9% Normal Saline 1,000 ML 100 ML IV (22:48)
[2021-11-10] MEDS: 0.9% Saline Lock 10 ML Syringe IV (22:49)
[2021-11-11] VITALS (10 sets, daily range): BP systolic 124–143; BP diastolic 64–82; PULSE 40–57; RESP 16–18; TEMP 36.5–36.8; O2SAT 96–99
[2021-11-11 02:31] LABS: Absolute Lymphocyte Count 1.76 X10^3/uL (0.83-4.51); Absolute Neutrophil Count 3.1 X10^3/uL (2.0-7.7); Basophil# 0.07 X10^3/uL; Basophil% 1.2 % (0-1); Eosinophil# 0.19 X10^3/uL; Eosinophils% 3.4 % (0-5); Hematocrit 42.3 % (40-54); Hemoglobin 13.4 g/dL (13.0-16.5); Lymphocyte # 1.76 X10^3/ul (0.83-4.51); Lymphocyte % 31.1 % (19-41); Mean Corp Hgb Conc 31.7 g/dL (32-36); Mean Corpuscular Hgb 30.1 pg (27.0-32.0); Mean Corpuscular Volume 95.1 fL (80-94); Mean Platelet Vol. 10.7 fl (6.2-12.0); Monocyte# 0.55 X10^3/uL; Monocyte% 9.7 % (0-10); NRBC Flagged by Analyzer 0 % (0-5); Neutrophil # 3.08 X10^3/uL (2.7-7.7); Neutrophil % 54.4 % (47-70); Platelet Count 162 K/mm3 (150-450); RBC Distribution Width CV 13.2 % (11.6-14.6); RBC Distribution Width SD 46.5 fl (35.1-43.9); Red Blood Count 4.45 M/mm3 (4.6-6.2); White Blood Count 5.7 K/mm3 (4.4-11.0)
[2021-11-11 03:30] LABS: Troponin-I HS 7 pg/mL (3.0-78.0)
[2021-11-11 03:44] LABS: AST(SGOT) 11 U/L (15-37); Alanine Aminotransfer ALT/SGPT 12 U/L (16-61); Alkaline Phosphatase 69 U/L (45-117); Anion Gap 8 (5-15); BUN 16 mg/dL (7-18); BUN/Creat Ratio 15.8 RATIO (10-20); Calcium,Total 8.2 mg/dL (8.5-10.1); Chloride 109 mmol/L (98-107); Creatinine, Serum 1.01 mg/dL (0.70-1.30); EST Glomerular Filtration Rate 80 mL/min (>60); Est Glom Filt Rate - Afr Amer 97 mL/min (>60); Globulin 3.1 g/dL (2.2-4.2); Glucose 81 mg/dL (74-106); Potassium 3.7 mmol/L (3.5-5.1); Protein, Total 6.1 g/dL (6.4-8.2); Sodium Level 143 mmol/L (136-145); Thyroid Stim Hormone (TSH) 2.07 uIU/mL (0.358-3.74)
--- NOTE | 2021-11-11 05:55 | EKG12_ITS ---
Test Reason : AM EKG Blood Pressure : / mmHG Vent. Rate : 056 BPM Atrial Rate : 056 BPM P-R Int : 182 ms QRS Dur : 096 ms QT Int : 570 ms P-R-T Axes : 040 -49 007 degrees QTc Int : 550 ms Sinus bradycardia Left axis deviation Inferior infarct (cited on or before 10-NOV-2021) Abnormal ECG Confirmed by DARSHANA CONDON, CARMENZA ([id number]), restaurant expeditor ANDREI NAVARRO ([id number]) on 11/16/2021 9:49:25 AM Referred By: Confirmed By:CARMENZA GILLILAND MD
--- NOTE | 2021-11-11 08:41 | PN.HOSP_ITS ---
Subjective Subjective Feels well. Has been up and felt slightly dizzy but did not pass out. Stated yesterday he just felt unwell then laid on the floor and then he passed out while he was on the floor. Objective Data Objective Data Vital Signs: Vital Signs Temp Pulse Resp BP Pulse Ox O2 Del Method 36.7 C 43 L 18 143/70 H 98 Room Air 11/11/21 03:39 11/11/21 07:20 11/11/21 03:39 11/11/21 03:39 11/11/21 03:39 11/11/21 04:52 Oxygen Delivery Method Room Air Weight: 84.3 kg Body Mass Index (BMI) 24.1 Intake & Output: Intake and Output for Last 24 Hours 11/09/21 11/10/21 11/11/21 23:59 23:59 23:59 Intake Total 290 / 290 Balance 290 / 290 Lab / Micro Data Result Diagrams: 11/11/21 02:05 11/11/21 02:05 Labs: Laboratory Results - last 24 hr 11/10/21 19:30: WBC 6.1, RBC 4.89, Hgb 14.8, Hct 45.1, MCV 92.2, MCH 30.3, MCHC 32.8, RDW Std Deviation 46.2 H, RDW Coeff of Donna 13.3, Plt Count 192, MPV 10.1, Immature Gran % (Auto) 0.300, Neut % (Auto) 63.3, Lymph % (Auto) 24.3, [place] % (Auto) 8.5, Eos % (Auto) 2.3, Baso % (Auto) 1.3 H, Absolute Neuts (auto) 3.9, Absolute Lymphs (auto) 1.49, Nucleated RBC % 0 11/10/21 19:30: Sodium 142, Potassium 4.0, Chloride 107, Carbon Dioxide 30.0, Anion Gap 5, BUN 18, Creatinine 1.08, Estim Creat Clear Calc 83.51, Est GFR ( RD) Af Amer 89, Est GFR (MDRD) Non-Af 74, BUN/Creatinine Ratio 16.7, Glucose 87, Calcium 9.1, Total Bilirubin 1.10 H, AST 16, ALT 17, Alkaline Phosphatase 80, Troponin I High Sens 8, Total Protein 7.3, Albumin 3.8, Globulin 3.5, Albumin/Globulin Ratio 1.1 09/20/22 19:30: Magnesium 2.5 11/10/21 22:00: Troponin I High Sens 8 11/11/21 02:05: WBC 5.7, RBC 4.45 L, Hgb 13.4, Hct 42.3, MCV 95.1 H, MCH 30.1, MCHC 31.7 L, RDW Std Deviation 46.5 H, RDW Coeff of Donna 13.2, Plt Count 162, MPV 10.7, Immature Gran % (Auto) 0.200, Neut % (Auto) 54.4, Lymph % (Auto) 31.1, [place] % (Auto) 9.7, Eos % (Auto) 3.4, Baso % (Auto) 1.2 H, Absolute Neuts (auto) 3.1, Absolute Lymphs (auto) 1.76, Nucleated RBC % 0 11/11/21 02:05: Sodium 143, Potassium 3.7, Chloride 109 H, Carbon Dioxide 26.0, Anion Gap 8, BUN 16, Creatinine 1.01, Estim Creat Clear Calc 89.30, Est GFR (MDRD) Af Amer 97, Est GFR (MDRD) Non-Af 80, BUN/Creatinine Ratio 15.8, Glucose 81, Calcium 8.2 L, Total Bilirubin 1.00, AST 11 L, ALT 12 L, Alkaline Phosphatase 69, Total Protein 6.1 L, Albumin 3.0 L, Globulin 3.1, Albumin/Globulin Ratio 1.0, TSH 2.07 11/11/21 02:05: Troponin I High Sens 7 Radiography Diagnostic Testing: Radiology Impression Chest X-Ray 11/10/21 19:48 IMPRESSION: 1. No significant interval change since the previous study of 12/11/2017. 2. Mild cardiomegaly without heart failure. 3. Mild emphysema. 4. No other active cardiopulmonary disease. Electronically Signed: Fritz Erwin MD at 20:26 EDT , Physical Exam Const alert and no apparent distress Resp normal respiratory effort, no retractions, no use of accessory muscles and clear to auscultation bilaterally Cardio regular rate, regular rhythm, S1 normal heart sound and S2 normal heart sound GI normal to inspection, nondistended, normoactive bowel sounds and soft to palpation Psych affect normal Assessment & Plan Assessment/Plan (1) Syncope and collapse: PLAN: Concerned that this could be related or exacerbated by bradycardia, however patient does have a history of vasovagal/neurocardiogenic mediated syncope EKG in ED w/ sinus bradycardia without evidence of acute ischemia (2) Bradycardia: PLAN: Hold on metoprolol and amiodarone given bradycardia. Cards consult May need permanent pacemaker but will allow for medications to flush out of his system and defer to cardiology whether or not that would be indicated. PLAN: Plan Chronic conditions: * PAF with history frequent PAC/PVC, history of wide-complex tachycardia: Patient with recent Holter monitor assessment, closely following with cardiology, will hold metoprolol and amiodarone temporarily given bradycardia upon presentation as noted, resume once appropriate, continue home Xarelto regimen. * History of syncopal events with orthostatic hypotension history: Will continue home fludrocortisone oral regimen. * Factor V Leiden with Prior VTE: Prior history of DVT, PE, also noted recurrent events, history of retroperitoneal bleed on coumadin w/ supratherapeutic INR, transitioned to xarelto, will continue. * Hx DRESS: Patient with history 2018 with notable elevated LFT, bili at that time, since normalized, admission T bili mildly elevated 1.10, plan repeat CMP in AM. DVT prophylaxis: not indicated as already anticoagulated Charges/Coding Visit Charges Inpatient E&M: 39681 Subs Hosp L2
[2021-11-11] MEDS: Fludrocortisone Acetate 0.1 MG Tablet PO (08:46)
--- NOTE | 2021-11-11 09:05 | CON.PCM.CA_ITS ---
Assessment & Plan Assessment/Plan (1) Syncope and collapse: PLAN: The patient has a history of tilt table positive syncope thought related to vasovagal/neurocardiogenic mediated syncope with cardioinhibitory/vasodilatory components. He has been maintaining fluid resuscitation. He has been on medical management with fludrocortisone. He is also been on beta-jb therapy for variety of reasons. Overall he is done well until just recently. It is unclear with respect to his symptoms of palpitations the day prior to his event as to whether this was an attempt at recurrence of his atrial dysrhythmia. Based upon his presenting episode and the description of his episode there is concern that he may have experienced another vasovagal mediated type event. There is concern as to whether this was exacerbated by his changing of his cardiac rhythm and rate from atrial fibrillation to sinus rhythm with sinus bradycardia. At the present time he appears to be resting comfortably. He is being monitored. He has continued fluid hydration. His rate limiting medications have been placed on hold at this time. (2) Bradycardia: PLAN: The patient has been noted to have a change in his cardiac rhythm and ca rdiac rate as previously described. His medications had previously been decreased with respect to dosage. Based upon his bradycardia at this time his rate limiting medicine and antiarrhythmic medication have been placed on hold. Over time consideration can be given with respect to his rate as to how to further adjust medication. Also, if he is demonstrating concerns with his changing cardiac rhythm and rate and concerns of bradycardia and tachycardia he may eventually need to be evaluated by electrophysiology as to whether or not he requires any further diagnostic studies and/or consideration as to whether he may require a permanent pacemaker to assist with the management of bradycardia/tachycardia. (3) Paroxysmal atrial fibrillation: PLAN: The patient had a history of atrial fibrillation. He has been back in sinus rhythm. As noted above, based upon his recent symptoms there is a question of whether or not he attempted to return to atrial fibrillation with an elevated heart rate. Based upon his bradycardia his medications are on hold. Depending upon his future rhythm he may or may not need to be placed back on antiarrhythmic therapy. Ideally he would continue anticoagulant therapy with the exception of interruption for other reasons. (4) Wide-complex tachycardia: PLAN: He did have a history of wide-complex tachycardia. Based on his previous studies there was concern this may have been a combination of aberrancy and ventricular ectopy/tachycardia. He is undergone noninvasive studies which thus far have revealed preserved left ventricular wall motion and systolic function and no obvious evidence of myocardial ischemia. It is unclear as to whether his palpitations recently were related to any wide- complex dysrhythmia. At the moment he is being monitored with respect to his bradycardia and any other dysrhythmias. An echocardiogram has been requested to reassess his left ventricular wall motion and systolic function. Consideration will have to be given with respect to his cardiovascular diagnosis and management as to whether or not he should be considered for further definitive evaluation in the cardiac catheterization laboratory to assist with diagnosis, medication management, etc. This has been discussed with the patient and his family in the past. Thus far he has continued with medical management. However, based upon his recurrent event and concerns with his cardiac rate and rhythm this issue is being reconsidered. (5) Premature atrial contraction: PLAN: He also has a history of ectopy with PACs and PVCs. At the moment he appears without obvious symptoms and or adverse events. (6) Asymptomatic premature ventricular contractions: PLAN: Again he has a history of PACs and PVCs. He is being monitored for any concerns. (7) Factor V Leiden: PLAN: He does have a prothrombotic event. He has been on anticoagulant therapy. He states he did not have his dose yesterday. It is on temporary hold at the moment pending the need for additional invasive cardiovascular evaluation or care or any other type of invasive studies/procedures. Addt'l Comments The patient's case was discussed and reviewed with the patient and previously with Dr. Lei of the [facility] hospitalist staff. This note was generated using a voice recognition system and there may be incorrect words, spelling or punctuation that were not noted when reviewing the office note prior to saving. HPI Consult Data Date of Consult: 11/11/21 HPI Narrative HPI Narrative: HUNG LWASON, is a 61 year old white male who presents patient with concerns with respect to palpitations, PACs/PVCs, atrial fibrillation, nonsustained wide-complex tachycardia with a differential diagnosis of atrial fibrillation with aberrancy versus ventricular dysrhythmia, syncope (tilt table positive), and Factor V Leiden deficiency with a history of thromboembolic events for recurrent syncope with subsequent concerns of sinus bradycardia. The patient has undergone outpatient cardiovascular evaluation/noninvasive evaluation over time which is included studies such as Holter monitors, event monitors, transthoracic echocardiograms, stress test/imaging studies, and a tilt table test. He has been on medical management with fluid support, rate control therapy, antiarrhythmic therapy, and anticoagulant therapy. He has continued with outpatient follow-up with adjustment of medications based upon his clinical course and his objective findings. He states he was doing well until Tuesday when he noted at work a brief episode of a rapid heart rate sensation that spontaneously returned to normal. He does not recall any adverse associated symptoms or events with this episode. He noted yesterday at home he felt like something was not quite right. He states he felt like he needed to sit down or lie down in order to avoid another syncopal event. He did so in the bathroom without injuring himself. He states everything may have gone dark for a second or two. He states he was checked on by his family members. He notes he was told he appeared to be somewhat clammy looking. He does not recall any chest discomfort, difficulty breathing, nausea, or emesis. There was no sensation of palpitations. He states this was not an abrupt loss of consciousness. The EMS was summoned and evaluated him. He states he walked with the EMS team out to the EMS vehicle to be transported to the hospital. He was subsequently brought to the hospital for further evaluation and care. He states that he had no further symptoms. During his evaluation he was noted to have a marked sinus bradycardia. He was subsequently placed in the PCU for further evaluation and care. He had cardiac enzymes performed which were negative. His ECG demonstrated sinus bradycardia with a left axis deviation and poor R wave progression. An echocardiogram has been requested for further evaluation and care. Of note, based upon his cardiac dysrhythmia history he had been on medication with respect to rate control therapy and antiarrhythmic therapy. His medicat ions have been recently reassessed and his dose is decreased as he was noted to be in sinus rhythm/sinus bradycardia. He had continued anticoagulant therapy based upon a combination of his issues with respect to his prothrombotic history as well as his atrial dysrhythmia history. He states he has not had ongoing concerns with activity of chest discomfort. There is been no orthopnea or PND or worsening peripheral pitting edema. He states there has been no other recent episode of loss of consciousness with or without any type of warning. [facility] Medical History Abscess of right thigh Acute cystitis DAYNA (acute kidney injury) Anemia Asymptomatic premature ventricular contractions Atrial fibrillation with RVR Coagulopathy Dyspnea on exertion Elevated LFTs Factor V Leiden Fever with exanthematous rash Hematuria History of DVT (deep vein thrombosis) History of pulmonary embolism 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 knee joint Paroxysmal atrial fibrillation Premature atrial contraction Septic shock Severe sepsis Syncope and collapse Ventricular tachycardia Wide-complex tachycardia Home Medications fludrocortisone 0.1 mg tablet 0.1 mg PO DAILY #90 tabs 01/29/21 [Rx Last Taken Unknown] rivaroxaban 20 mg tablet 20 mg PO DAILY #90 tabs 06/16/21 [Rx Last Taken Unknown] metoprolol tartrate 25 mg tablet 25 mg PO BID #180 tabs 09/29/21 [Rx Last Taken Unknown] amiodarone 200 mg tablet 200 mg PO BID 11/10/21 [History Last Taken Unknown] Allergy/AdvReac Type Severity Reaction Status Date / Time Sulfa (Sulfonamide Allergy Unknown Verified 11/10/21 16:01 Antibiotics) vancomycin Allergy Fever and Verified 11/10/21 16:01 skin rash ceftriaxone AdvReac Rash Verified 11/10/21 16:01 linezolid AdvReac Rash Verified 11/10/21 16:01 Family History Mother Ulcerative colitis Grandfather No problems noted. 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 pets and animals: Yes (cat) Smoking Status: Never smoker alcohol intake: current details: occasional substance use type: does not use caffeine: No ROS Constitutional Constitutional: Reports as per HPI Eyes Eyes: Reports as per HPI ENT HEENT: Reports as per HPI Cardiovascular Cardiovascular: Reports palpitations and syncope Respiratory/Chest Respiratory/Chest: Reports as per HPI Gastrointestinal Gastrointestinal: Reports as per HPI Genitourinary Genitourinary: Reports as per HPI Musculoskeletal Musculoskeletal: Reports as per HPI Integumentary Integumentary: Reports as per HPI Neurologic Neurologic: Reports syncope Physical Exam Const alert, oriented x3 and no apparent distress Orientation / Consciousness: awake HEENT normocephalic, head/scalp atraumatic and hearing grossly normal bilaterally Eyes PERRL, EOMs intact bilaterally, conjunctivae normal and no scleral icterus Neck full ROM, supple and no JVD Carotids: normal carotid upstroke Resp normal respiratory effort Cardio regular rhythm, S1 normal heart sound and S2 normal heart sound Rate: bradycardia GI normal to inspection, nondistended, normoactive bowel sounds Extremity no pedal edema Skin no rashes or lesions noted Psych mental status grossly normal Risk Stratification Risk Stratification Applicable: No Procedure Criteria Type of Procedure Procedure Type: Elective Elective Risks - COVID COVID Risk Discussion: The surgeon/proceduralist and patient have discussed in detail the risk of exposure to and/or potential harm posed by the COVID-19 virus with having a surgery/procedure at this time versus the risk of delaying the surgery/procedure. It is not possible to know either the risk of delaying the surgery or procedure or chance of getting an infection with perfect accuracy, but a joint decision was made between the patient and the surgeon/proceduralist to proceed at this time with the scheduled surgery/procedure as indicated on the consent form. Objective Data Vital Signs: Vital Signs Temp Pulse Resp BP Pulse Ox O2 Del Method 97.7 F L 49 L 16 142/82 H 99 Room Air 11/11/21 08:42 11/11/21 08:42 11/11/21 08:42 11/11/21 08:42 11/11/21 08:42 11/11/21 08:42 Oxygen Delivery Method Room Air Weight: 185 lb 13.595 oz Body Mass Index (BMI) 24.1 Intake & Output: Intake and Output for Last 24 Hours 11/09/21 11/10/21 11/11/21 23:59 23:59 23:59 Intake Total 290 / 290 Balance 290 / 290 Lab / Micro Data Result Diagrams: 11/11/21 02:05 11/11/21 02:05 Labs: Laboratory Results - last 24 hr 11/10/21 19:30: WBC 6.1, RBC 4.89, Hgb 14.8, Hct 45.1, MCV 92.2, MCH 30.3, MCHC 32.8, RDW Std Deviation 46.2 H, RDW Coeff of Donna 13.3, Plt Count 192, MPV 10.1, Immature Gran % (Auto) 0.300, Neut % (Auto) 63.3, Lymph % (Auto) 24.3, [place] % (Auto) 8.5, Eos % (Auto) 2.3, Baso % (Auto) 1.3 H, Absolute Neuts (auto) 3.9, Absolute Lymphs (auto) 1.49, Nucleated RBC % 0 11/10/21 19:30: Sodium 142, Potassium 4.0, Chloride 107, Carbon Dioxide 30.0, Anion Gap 5, BUN 18, Creatinine 1.08, Estim Creat Clear Calc 83.51, Est GFR (MDRD) Af Amer 89, Est GFR (MDRD) Non-Af 74, BUN/Creatinine Ratio 16.7, Glucose 87, Calcium 9.1, Total Bilirubin 1.10 H, AST 16, ALT 17, Alkaline Phosphatase 80, Troponin I High Sens 8, Total Protein 7.3, Albumin 3.8, Globulin 3.5, Albumin/Globulin Ratio 1.1 11/10/21 19:30: Magnesium 2.5 11/10/21 22:00: Troponin I High Sens 8 11/11/21 02:05: WBC 5.7, RBC 4.45 L, Hgb 13.4, Hct 42.3, MCV 95.1 H, MCH 30.1, MCHC 31.7 L, RDW Std Deviation 46.5 H, RDW Coeff of Donna 13.2, Plt Count 162, MPV 10.7, Immature Gran % (Auto) 0.200, Neut % (Auto) 54.4, Lymph % (Auto) 31.1, [place] % (Auto) 9.7, Eos % (Auto) 3.4, Baso % (Auto) 1.2 H, Absolute Neuts (auto) 3.1, Absolute Lymphs (auto) 1.76, Nucleated RBC % 0 11/11/21 02:05: Sodium 143, Potassium 3.7, Chloride 109 H, Carbon Dioxide 26.0, Anion Gap 8, BUN 16, Creatinine 1.01, Estim Creat Clear Calc 89.30, Est GFR (MDRD) Af Amer 97, Est GFR (MDRD) Non-Af 80, BUN/Creatinine Ratio 15.8, Glucose 81, Calcium 8.2 L, Total Bilirubin 1.00, AST 11 L, ALT 12 L, Alkaline Phosphatase 69, Total Protein 6.1 L, Albumin 3.0 L, Globulin 3.1, Albumin/Globulin Ratio 1.0, TSH 2.07 11/11/21 02:05: Troponin I High Sens 7 Cardiology Labs/Tests 11/10/21 19:30: WBC 6.1, RBC 4.89, Hgb 14.8, Hct 45.1, MCV 92.2, MCH 30.3, MCHC 32.8, Plt Count 192, MPV 10.1, Immature Gran % (Auto) 0.300, Neut % (Auto) 63.3, Lymph % (Auto) 24.3, [place] % (Auto) 8.5, Eos % (Auto) 2.3, Baso % (Auto) 1.3 H, Absolute Neuts (auto) 3.9, Nucleated RBC % 0 11/10/21 19:30: Sodium 142, Potassium 4.0, Chloride 107, Carbon Dioxide 30.0, Anion Gap 5, BUN 18, Creatinine 1.08, Est GFR (MDRD) Af Amer 89, Est GFR (MDRD) Non-Af 74, BUN/Creatinine Ratio 16.7, Glucose 87, Calcium 9.1, Total Bilirubin 1.10 H 11/10/21 19:30: Magnesium 2.5 11/11/21 02:05: WBC 5.7, RBC 4.45 L, Hgb 13.4, Hct 42.3, MCV 95.1 H, MCH 30.1, MCHC 31.7 L, Plt Count 162, MPV 10.7, Immature Gran % (Auto) 0.200, Neut % (Auto) 54.4, Lymph % (Auto) 31.1, [place] % (Auto) 9.7, Eos % (Auto) 3.4, Baso % (Auto) 1.2 H, Absolute Neuts (auto) 3.1, Nucleated RBC % 0 11/11/21 02:05: Sodium 143, Potassium 3.7, Chloride 109 H, Carbon Dioxide 26.0, Anion Gap 8, BUN 16, Creatinine 1.01, Est GFR (MDRD) Af Amer 97, Est GFR (MDRD) Non-Af 80, BUN/Creatinine Ratio 15.8, Glucose 81, Calcium 8.2 L, Total Bilirubin 1.00 Rhythm: Sinus bradycardia EKG: As noted above Transthoracic echocardiogram: 12-12-17 Interpretation Summary Left ventricular systolic function is normal. The estimated ejection fraction is 70 %. The left atrium is mildly enlarged. Trivial mitral valve insufficiency. Trivial tricuspid valve insufficiency. Trivial pulmonic valve insufficiency. Right ventricular systolic pressure estimated to be 30 mmHg. No evidence for diastolic dysfunction. Bubble contrast study negative for right to left interatrial shunt. Transthoracic echocardiogram: 07-10-2020 Interpretation Summary The study was technically difficult. ? Left ventricular systolic function is normal. The estimated ejection fraction is 65 %. The left atrium is mildly enlarged. The right atrium is mildly enlarged. Trivial mitral valve insufficiency. Mild tricuspid valve insufficiency. Right ventricular systolic pressure estimated to be 30 mmHg. Unable to assess diastolic dysfunction. Stress Test Report Date: 03/01/2018 Procedure: Pharmacologic stress nuclear imaging study? Indications: Atrial fibrillation Consent: Per the patient Procedure: The patient underwent pharmacologic (Regadenoson) evaluation with a peak heart rate of 123 beats per minute (75 predicted maximal heart rate) and a peak blood pressure of 118/80 mmHg. The baseline ECG demonstrated sinus rhythm.? The peak pharmacologic ECG demonstrated no obvious ECG changes. There were no cardiac dysrhythmias pretest, during pharmacologic infusion, or recovery. There was no complaint of chest discomfort during pharmacologic infusion or recovery. The examination was discontinued secondary to completion of protocol. Impression: 1.? Pharmacologic (Regadenoson) evaluation 2.? Peak pharmacologic ECG with no obvious ECG changes. 3.? There were no cardiac dysrhythmias pretest, during pharmacologic infusion, or recovery. 4.? Nuclear images pending Myocardial perfusion imaging study: Technique: The patient was injected with 14.5 millicuries of technetium 99m Cardiolite and subsequently rest SPECT Cardiolite nuclear imaging was obtained in the horizontal long, vertical long, and short axis views. The patient underwent pharmacologic (Regadenoson) evaluation with a peak heart rate of 123 beats per minute (75 % percent predicted maximal heart rate) and a peak blood pressure of 118/80 mmHg. The patient was injected with 44.3 millicuries of technetium 99m Cardiolite and subsequently stress SPECT Cardiolite nuclear imaging was obtained in the horizontal long, vertical long, and short axis views.? A gated Cardiolite study at peak stress was obtained. Interpretation: Rest and stress SPECT Cardiolite nuclear imaging status post realignment, normalization, and attenuation correction demonstrate relative uniform tracer uptake in myocardial perfusion appearing within normal limits.? There is end systolic thickening and brightening.? The gated Cardiolite study demonstrates myocardial thickening and inward wall motion.? The reported LVEF is 66 %. Impression: 1.? Rest and stress SPECT Cardiolite nuclear imaging demonstrate relative uniform tracer uptake and myocardial perfusion appearing within normal limits. 2.? The gated Cardiolite study reports an LVEF of 66 %. Tilt table: 02-23-18 Indications/Diagnosis:? Syncope Procedure Comments: The patient presented to the tilt table laboratory.? The patient was alert and oriented and warm and dry.? The baseline heart rate was 50 bpm with a baseline blood pressure 101/68 mmHg.? The baseline ECG demonstrated sinus bradycardia. The patient was placed in the 70 degree upright tilt table position for approxim ately 23 minutes.? The patient was initially alert and oriented and warm and dry, however, at peak tilt table time the patient became unresponsive.? The minimal heart rate was 45 bpm (patient had been returned to the supine position) and the patient was alert and oriented and clammy.? The minimal blood pressure was 0/0 when the patient was unresponsive.? The maximal heart rate was 80 bpm at which time the patient was alert and oriented and warm and dry.? The maximal blood pressure was 112/66 mmHg (during recovery) with the patient was alert and oriented and warm and dry.? The cardiac rhythm remained sinus rhythm with PACs.? The patient noted initially no symptoms and then subsequently noting the fingers felt cool and the hands felt clammy prior to becoming unresponsive. The patient was returned to the supine position.? The patient became alert and oriented and was subsequently noted to be warm and dry.? The concluding heart rate was 61 bpm with a concluding blood pressure 101/56 mmHg.? The cardiac rhythm remained sinus rhythm.? The patient had no further complaints.? The patient was subsequently released from the tilt table laboratory. Summary: 70 degree upright tilt table study considered positive for reproducible vasovagal/neurocardiogenic disease combined cardioinhibitory and vasodilatory) syncope. Holter monitor: 09-16-2021 Sinus rhythm/sinus bradycardia: Average heart rate 43 bpm Rare PAC Isolated PVC Longest R-R interval of 2.1 seconds 30-day ambulatory event monitor: Findings compatible with atrial fibrillation with a wide-complex rhythm with a combination of aberrancy and ventricular ectopy/tachycardia Radiography Diagnostic Testing: Radiology Impression Chest X-Ray 11/10/21 19:48 IMPRESSION: 1. No significant interval change since the previous study of 12/11/2017. 2. Mild cardiomegaly without heart failure. 3. Mild emphysema. 4. No other active cardiopulmonary disease. Electronically Signed: Fritz Erwin MD at 20:26 EDT ,
--- NOTE | 2021-11-11 10:50 | CASEMGMT ---
RN CM Face to Face with patient for initial transition planning/care coordination assessment. RN CM introduced self and role at [facility]. Patient lying in bed, alert and oriented. Patient willing to participate in assessment and is able to answer all questions appropriately. Care providers, pharmacy, and demographics verified. Patient wishes to discharge home, denies need for home health at this time. Patient states he has no further needs or concerns at this time. CM to follow for discharge planning needs that may arise. 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 Patient is independent and able to ambulate stairs. Transportation: self, DME/HHC: Patient states he has raised toilet, walker, and crutches at home. Patient has had HHC in the past but could not recall agency. Disposition Plan: Patient to discharge home with family support and follow-up plans in place. Ayah TUBBS, RN, CM
--- NOTE | 2021-11-11 11:44 | CHAPLAIN ---
Type of Pastoral Visit _x__ Initial Visit ___ Follow-up Visit ___ On-call Visit ___ General Patient Visit ___ Spiritual Assessment ___ Family Conference ___ Bereavement ___ Rapid Response ___ Code Blue ___ Other (describe below) Pastoral Care Referral From _x__ Patient ___ Family ___ Nurse ___ Physician ___ Tower Crane Operator ___ Shooter'S Helper ___ Other (describe below) Sacrament/Intervention _x__ Active listening ___ Anointing ___ Christian ___ Bereavement ___ Communion ___ Dedra exploration ___ ___ Life review _x__ Prayer ___ Reconciliation ___ Sacrament of Sick _x__ Supportive presence ___ Wedding ___ Other (describe below) Pastoral Comments patient gives update on his health concerns and the possible interventions that are coming today; pt states somewhat anxious about having a heart cath but others are reassuring him that it will be fine; pt waiting on decisions to be made; pt would like to have some answers about his heart issues so trying to stay positive about today's admission; pt has spouse for his support; pt states otherwise he has no needs; casual conversation to help pass the time
[2021-11-11] MEDS: traZODone 50 MG Tablet PO (21:00)
[2021-11-11] MEDS: MELATONIN 3 MG TABLET PO (21:00)
[2021-11-12] VITALS (22 sets, daily range): BP systolic 88–169; BP diastolic 55–118; PULSE 43–75; RESP 14–20; TEMP 36.2–36.8; O2SAT 93–100
--- NOTE | 2021-11-12 06:41 | CT_ITS ---
EXAM: CT cervical spine. HISTORY: fall with head lac TECHNIQUE: No intravenous contrast. A radiation dose optimization technique was used for this scan. COMPARISON: None. LIMITATIONS: None. FRACTURES: None. SPINAL CANAL: No significant stenosis. DEGENERATIVE CHANGE: Moderate degenerative change. SOFT TISSUE: Normal. OTHER: None. CONCLUSION: No acute fracture. Electronically Signed: Rolando Mariscal MD at 7:48 EDT , CT/Spine Cervical without Contras IMPRESSION: undefined
--- NOTE | 2021-11-12 06:41 | CT_ITS ---
EXAM: CT brain without contrast HISTORY: fall with head lac TECHNIQUE: No intravenous contrast. A radiation dose optimization technique was used for this scan. COMPARISON: None. LIMITATIONS: None. BRAIN: Normal hampton/white matter differentiation. VENTRICLES: No hydrocephalus. EXTRA-AXIAL SPACES: No acute hemorrhage. CALVARIUM/SKULL BASE: No acute fracture. FACE/SINUSES: No significant abnormality. SOFT TISSUES: Laceration of the right parieto-occipital scalp. OTHER: None. CONCLUSION: No acute intracranial abnormality. Electronically Signed: Rolando Mariscal MD at 7:38 EDT , CT/Brain/Head without Contrast IMPRESSION: undefined
--- NOTE | 2021-11-12 06:50 | NURSING ---
patient sent to CT
--- NOTE | 2021-11-12 07:07 | PCM.HOSP.N ---
Hospitalist Note RAPID RESPONSE CALL: Patient with fall following coming from the bathroom, standing position, felt lightheadedness/dizziness, fell and hit the back of his head upon falling. He notes mild neck and headache associated with event. Patient with bradycardia, rate in the 30s, atropine administered although patient notes similar to prior events with positional/orthostatic hypotension near syncope events. He noted no further pre-syncopal symptoms. BP stable. Transitioned with neck control to bed with soft color placed and to CT scanner with CT head and neck obtained. Awaiting results to clear neck to be able to clean scalp and place nirmal if appropriate. Patient daytime hospitalist Dr. Castano aware of event and will take over evaluation of scalp post-CT scan results if cleared. Patient daughter made aware of event and came for evaluation also. Cardiology, Dr. Mazariegos made aware of event and will keep him updated.
--- NOTE | 2021-11-12 07:31 | ED.RN ---
pt. was sent to bathroom as a stand by assist. patient was advised to call for help when standing, the patient then attempted to grab CHG wipes to prep for heart cath planned for today. Patient fell through bathroom doors with a head strike to the floor. Patient did not lose consciousness, Rapid response was called
--- NOTE | 2021-11-12 07:36 | NURSING ---
patient brought back to the floor from CT
--- NOTE | 2021-11-12 08:19 | PN.CARD_ITS ---
Subjective Subjective The patient is awake and alert at this time. He noted he was up, with assistance earlier this morning, urinating, began to sense the feelings he has with his near syncopal/syncopal events, and subsequently fell and struck his head. An BOBBIN PAINTER was called. He was subsequently evaluated by the [facility] hospitalist group, placed in the soft C-spine collar, and underwent radiology evaluation with head CT and neck CT both of which were reported as demonstrating no acute findings. He was noted to have a laceration in his occipital area which is being addressed by the [facility] staff-with sutures. He does not recall any sensation of palpitations. He did not recall any chest discomfort or difficulty breathing. He noted once he was supine he felt better. His cardiac rhythm at the time remained his sinus rhythm/marked sinus bradycardia. He was treated by the [facility] staff with IV atropine in which his sinus rate did improve. He has blood pressures were obtained and he was not reported as being hypotensive. Objective Data Vital Signs: Vital Signs Temp Pulse Resp BP Pulse Ox O2 Del Method 97.3 F L 62 18 120/79 98 Room Air 11/12/21 07:29 11/12/21 07:29 11/12/21 07:29 11/12/21 07:29 11/12/21 07:32 11/12/21 07:32 Oxygen Delivery Method Room Air Weight: 185 lb 13.595 oz Body Mass Index (BMI) 24.1 Intake & Output: Intake and Output for Last 24 Hours 11/10/21 11/11/21 11/12/21 23:59 23:59 23:59 Intake Total 1740 / 1740 Balance 1740 / 1740 Lab / Micro Data Result Diagrams: 11/11/21 02:05 11/11/21 02:05 Cardiology Labs/Tests Rhythm: Sinus rhythm/marked sinus bradycardia Radiography Diagnostic Testing: Radiology Impression Echocardiogram 11/10/21 21:23 Interpretation Summary Left ventricular systolic function is normal. The estimated ejection fraction is 60 %. The left atrium is mildly enlarged. Mild (1+) mitral valve insufficiency. Mild tricuspid valve insufficiency. Trivial pulmonic valve insufficiency. Right ventricular systolic pressure estimated to be 36 mmHg. Diastolic function is indeterminate. Ordering Physician: America Lei Referring Physician: DC LOPEZ Performed By: Nieves Johns RDCS Brain CT 11/12/21 06:41 IMPRESSION: undefined Cervical Spine CT 11/12/21 06:41 IMPRESSION: undefined Physical Exam Const alert and oriented x3 Orientation / Consciousness: awake HEENT HEENT Narrative: Occipital area: Laceration Eyes PERRL, EOMs intact bilaterally, conjunctivae normal and no scleral icterus Neck full ROM, supple and no JVD Carotids: normal carotid upstroke Resp normal respiratory effort and clear to auscultation bilaterally Cardio regular rhythm, S1 normal heart sound and S2 normal heart sound Rate: bradycardia GI normal to inspection, nondistended, normoactive bowel sounds Extremity no pedal edema Skin Skin Narrative: Occipital area: Laceration Psych mental status grossly normal Assessment & Plan Assessment/Plan (1) Syncope and collapse: PLAN: The patient has a history of tilt table positive syncope thought related to vasovagal/neurocardiogenic mediated syncope with cardioinhibitory/vasodilatory components. He has been maintaining fluid resuscitation. He has been on medical management with fludrocortisone. He is also been on beta-jb therapy for variety of reasons. Overall he is done well until just recently. It is unclear with respect to his symptoms of palpitations the day prior to his event as to whether this was an attempt at recurrence of his atrial dysrhythmia. Based upon his presenting episode and the description of his episode there is concern that he may have experienced another vasovagal mediated type event. There is concern as to whether this was exacerbated by his changing of his cardiac rhythm and rate from atrial fibrillation to sinus rhythm with sinus bradycardia. He has now experienced an episode after getting out of bed, standing to urinate, of a similar type near-syncope/syncope event leading to a fall and subsequent head trauma. He was evaluated by the hospital staff, placed in a soft C-spine collar, underwent radiologic studies which were reported as unremarkable for any acute changes, and is now having a occipital area laceration addressed. As noted before, this episode may have been a situational type orthostatic/vagal mediated event. It is unclear if this was exacerbated by his ongoing bradycardia. (2) Bradycardia: PLAN: The patient has been noted to have a change in his cardiac rhythm and cardiac rate as previously described. His medications had previously been decreased with respect to dosage. Based upon his bradycardia at this time his rate limiting medicine and antiarrhythmic medication have been placed on hold. Over time consideration can be given with respect to his rate as to how to further adjust medication. Also, if he is demonstrating concerns with his changing cardiac rhythm and rate and concerns of bradycardia and tachycardia he may eventually need to be evaluated by electrophysiology as to whether or not he requires any further diagnostic studies and/or consideration as to whether he may require a permanent pacemaker to assist with the management of bradycardia/tachycardia. (3) Paroxysmal atrial fibrillation: PLAN: The patient had a history of atrial fibrillation. He has been back in sinus rhythm. Based upon his bradycardia his medications are on hold. Depending upon his future rhythm he may or may not need to be placed back on antiarrhythmic therapy. Ideally he would continue anticoagulant therapy with the exception of interruption for other reasons. There is still a concern as to whether or not he is demonstrating evidence of bradycardia/tachycardia and will need not only medical therapy but potentially a permanent pacemaker support. (4) Wide-complex tachycardia: PLAN: He did have a history of wide-complex tachycardia. Based on his previous studies there was concern this may have been a combination of aberrancy and ventricular ectopy/tachycardia. He is undergone noninvasive studies which thus far have revealed preserved left ventricular wall motion and systolic function and no obvious evidence of myocardial ischemia. It is unclear as to whether his palpitations recently were related to any wide- complex dysrhythmia. He has continued with underlying bradycardia but no other dysrhythmias reported thus far. He has undergone further evaluation with a transthoracic echocardiogram. The results are as noted. His overall LV systolic function/LVEF remains preserved. Based upon his history and objective findings there has been concern as to whether or not there is any element of CAD contributing to any of his clinical course and thus consideration has been given to further definitive evaluation with diagnostic cardiac catheterization. This was tentatively planned for this morning. The timing of this procedure may be adjusted based upon his fall, head trauma and laceration, however, Dr. Castano of the [facility] staff states that once his laceration is cared for he should be able to proceed with his cardiac catheterization procedure. (5) Premature atrial contraction: PLAN: He also has a history of ectopy with PACs and PVCs. At the moment he appears without obvious symptoms and or adverse events. (6) Asymptomatic premature ventricular contractions: PLAN: Again he has a history of PACs and PVCs. He is being monitored for any concerns. (7) Factor V Leiden: PLAN: He does have a prothrombotic event. He has been on anticoagulant therapy. He states he did not have his dose yesterday. It is on temporary hold at the moment pending the need for additional invasive cardiovascular evaluation or care or any other type of invasive studies/procedures. Addt'l Comments Overall, at the present time, he will continue to be monitored. He will continue his local laceration care. Hopefully he will be able to proceed with his diagnostic cardiac catheterization and further define whether he truly has any angiographically/hemodynamically significant CAD contributing to any of his symptoms and/or objective findings. If those findings are present then he will need additional evaluation and care as deemed appropriate at the time. If not, then consideration will have to be given as to how to further care for his cardiac rate and rhythm with respect to not only holding his medications but whether he should be considered for further device evaluation/care/placement. The patient's case has been discussed and reviewed with the patient with his daughter present along with the [facility] staff. This note was generated using a voice recognition system and there may be inco rrect words, spelling or punctuation that were not noted when reviewing the office note prior to saving. Procedure Criteria Type of Procedure Procedure Type: Elective Elective Risks - COVID COVID Risk Discussion: The surgeon/proceduralist and patient have discussed in detail the risk of exposure to and/or potential harm posed by the COVID-19 virus with having a surgery/procedure at this time versus the risk of delaying the surgery/procedure. It is not possible to know either the risk of delaying the surgery or procedure or chance of getting an infection with perfect accuracy, but a joint decision was made between the patient and the surgeon/proceduralist to proceed at this time with the scheduled surgery/procedure as indicated on the consent form.
[2021-11-12] MEDS: Ondansetron 4 MG/2 ML Vial IV (08:24)
[2021-11-12] MEDS: 0.9% Saline Lock 10 ML Syringe IV (08:24)
--- NOTE | 2021-11-12 08:35 | NURSING ---
Pt head is cleaned up by this nurse with saline and gauze. Dr Castano is at bedside as well as pt daughter Ramiro LOGGING TRUCK DRIVER. Pt numbed with Lidocaine 1% and given 6 sutures to right lower scalp. Pt tolerated well. States while Dr Castano was numbing his site that he felt like he would pass out. Pt given Zofran IV and coached to deep breathe and close his eyes. Zofran effective and pt tolerated the suturing well. Pt resting in bed at this time and rest of head and site cleansed. Will continue to monitor
--- NOTE | 2021-11-12 08:43 | PN.HOSP_ITS ---
Hospitalist Note Suture Placement: Patient suffered from a large laceration (approximately 4 cm) to the right occipital/parietal area of his posterior scalp during a fall which she sustained earlier this morning. The area was cleaned extensively with sterile saline and the wound was flushed via jet irrigation utilizing syringe with sterile saline. The hair in the surrounding area was cut for better visualization and closure of the wound. After irrigation, the area was cleaned with Betadine x2 and sterile procedure was utilized and suturing the wound closed with 3.0 suture. A total of 6 interrupted sutures were placed in his posterior right scalp with good approximation of the wound. The suture should be maintained for at least 7 to 1 0 days and I have instructed family to evaluate the wound periodically for any signs of infection. Procedures Hospitalists Procedures: Other Procedure - See Report (Suturing acute wound)
--- NOTE | 2021-11-12 10:06 | CASEMGMT ---
Tertiary facilities in-network with patient's insurance: [facility], [facility], [facility], , [facility]
[2021-11-12] MEDS: Fludrocortisone Acetate 0.1 MG Tablet PO (10:31)
[2021-11-12] MEDS: 0.9% Normal Saline 1,000 ML 75 ML IV ×2 (10:31→23:05)
[2021-11-12] MEDS: Lidocaine 1% (20 ml mdv) 20 ML Vial INFILT (10:32)
[2021-11-12] MEDS: Acetaminophen 325 MG Tablet 650 MG PO ×2 (10:42→16:40)
--- NOTE | 2021-11-12 11:38 | PCM.PN.HOSP ---
Subjective Subjective Patient with syncopal episode early this morning which resulted in fall and injury. CT of the head and neck were performed and negative. The patient was going to the bathroom and felt it coming on but was able to get back to the bed in time before he passed out. Is unclear where he hit his head whether it be on the bed of the floor however he suffered from a large laceration which required suturing for approximation. Objective Data Objective Data Vital Signs: Vital Signs Temp Pulse Resp BP Pulse Ox O2 Del Method 97.3 F L 67 20 H 99/58 L 96 Room Air 11/12/21 07:29 11/12/21 08:40 11/12/21 08:29 11/12/21 08:40 11/12/21 08:40 11/12/21 08:40 Oxygen Delivery Method Room Air Weight: 84.3 kg Body Mass Index (BMI) 24.1 Intake & Output: Intake and Output for Last 24 Hours 11/10/21 11/11/21 11/12/21 23:59 23:59 23:59 Intake Total 1740 / 1740 Balance 1740 / 1740 Lab / Micro Data Result Diagrams: 11/11/21 02:05 11/11/21 02:05 Radiography Diagnostic Testing: Radiology Impression Echocardiogram 11/10/21 21:23 Interpretation Summary Left ventricular systolic function is normal. The estimated ejection fraction is 60 %. The left atrium is mildly enlarged. Mild (1+) mitral valve insufficiency. Mild tricuspid valve insufficiency. Trivial pulmonic valve insufficiency. Right ventricular systolic pressure estimated to be 36 mmHg. Diastolic function is indeterminate. Ordering Physician: America Lie Referring Physician: DC LOPEZ Performed By: Nieves Johns RDCS Brain CT 11/12/21 06:41 IMPRESSION: undefined Cervical Spine CT 11/12/21 06:41 IMPRESSION: undefined Physical Exam Const alert, oriented x3, no apparent distress, average body habitus, healthy appearing and well nourished Constitutional Narrative: Upper middle-aged white male sitting up in bed, bloodstain all over the back of the head of the bed, patient is mentating well and having no significant issues at this time other than headache HEENT moist oral mucous membranes HEENT Narrative: Large approximately 4 cm laceration to the posterior and lateral surface of his right head with bleeding, Mallampati 2, no thrush, dentition is fair Head and Scalp: normocephalic Eyes PERRL, EOMs intact bilaterally and conjunctivae normal Eyes Narrative: No scleral icterus Neck no lymphadenopathy, supple and no JVD Neck Narrative: Trachea midline, no thyroid enlargement Resp normal respiratory effort, no retractions, no use of accessory muscles and clear to auscultation bilaterally Auscultation: Negative for crackles, rales, rhonchi or wheezes Cardio S1 normal heart sound, S2 normal heart sound, no murmurs, no rub, no gallops, no clicks and no JVD Cardio Narrative: Bradycardic-mild GI normal to inspection, nondistended, normoactive bowel sounds, soft to palpation and non-distended Extremity no clubbing, cyanosis or edema Extremity Narrative: 2+ pedal pulses Skin Skin Narrative: Notable venous stasis changes with large varicose veins bilateral lower extremities Neuro oriented x3, CN's II-XII intact bilaterally, moves all extremities, no focal motor deficits and no sensory deficits noted Speech: speech normal Psych affect normal Psych Narrative: Very pleasant and appropriately interactive Assessment & Plan Assessment/Plan (1) Syncope and collapse: (2) Bradycardia: (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: (4) tank terminal gauger 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 anticoagulant: (5) Occipital scalp laceration: PLAN: Plan Syncope -Patient has known vasovagal/neurocardiogenic mediated syncope previously with positive tilt table -Continue Florinef -Noted to be bradycardic and beta-jb and amiodarone on hold -Telemetry has been reviewed and no marked abnormalities other than bradycardia which is improving with discontinuation of his beta-jb and amiodarone -Did have a syncopal event this morning while urinating that was similar to previous episodes -CT of the head and cervical spine are negative for any acute injuries -Cardiac catheterization was done and negative for any obstructive disease -Plan is for discussion with Dr. Cano for possible pacemaker placement Bradycardia -This is a change in his previous rhythm prior to admission -Beta-jb and amiodarone have been held -TSH is 2.07 -Seems to be improving -Management per cardiology Scalp laceration -Laceration was irrigated and cleaned and sutured -Ice as needed to the area -Suture removal in 7 to 10 days History of cardiac arrhythmias -See above -Cardiology following and may be evaluated for pacemaker placement -Anticoagulation on hold for now History of factor V Leiden -Previous DVT and PE with recurrent events -Patient with history of retroperitoneal bleed on Coumadin secondary to subtherapeutic INR -Has been on Xarelto -Xarelto on hold secondary to possible interventional strategies History of DRESS -No current issues DVT prophylaxis -SCDs -Chemoprophylaxis on hold until procedures completed -Last dose of Xarelto was 2 days ago--> hopefully will be able to restart in the next 24 to 48 hours CODE STATUS -full code Charges/Coding Visit Charges Inpatient E&M: 16715 Subs Hosp L3
--- NOTE | 2021-11-12 18:10 | CL.D_ITS ---
Patient Name: HUNG LAWSON Study Date: 11/12/2021 Performing: Dc Mazariegos MD Ht: 74 inches 187.96 cm : 1960 Wt: 186.1 lbs 84.3 kg Age: 61 Gender: male BSA: 2.11 PROCEDURE(S) PERFORMED [id number]-([id number])[facility] CLINICAL PROFILE AND INDICATIONS Indications: Syncope Heart Failure: None Stress/Imaging Date: 02/28/2018Stress Test with SPECT MPI: Negative Angina Classification Anginal Classification w/in 2 Weeks: No symptoms CAD Presentations: Other: Syncope; Arrhythmia CONCLUSIONS Elevated Left Ventricular End Diastolic Pressure Single vessel CAD of the LAD: mild luminal irregularities RECOMMENDATIONS Risk factor modification Medical therapy DESCRIPTION OF PROCEDURE The patient arrived to the procedure lab. The risks and benefits of the procedure as well as a full description of our services here and current unavailability of surgical backup were fully explained to the patient and/or their significant other prior to the catheterization. The Timeout was completed, verifying the correct patient and procedure. The patient's procedural site was prepped and draped in the usual fashion. Local anesthetic was given subcutaneously to right radial region with Lidocaine 2%. Using a modified Seldinger technique, arterial access was obtained via the right radial artery, a 6Fr sheath was inserted. Right Coronary Artery selective angiography was then performed in multiple views using a 5 Fr. 4.0 [place] catheter. Left Coronary Artery selective angiography was performed in multiple views using a 5 Fr. 4.0 [place] catheter. Left Coronary Artery selective angiography was performed in multiple views using a 5 Fr. JL3.5 catheter. LV to AO pullback pressures were then recorded.The arterial sheath was pulled and a TR Band was applied for hemostasis. 10cc of air CORONARY ANGIOGRAPHY DOMINANCE: Co- Dominant LEFT HEART ASSESSMENT Left Ventricular Ejection Fraction: Not assessed Elevated Left Ventricular End Diastolic Pressure LVEDP: 21 mmHg LEFT MAIN: Angiographically normal LEFT ANTERIOR DESCENDING ARTERY: MID LAD: Mild luminal irregularities (s/p SP) CIRCUMFLEX ARTERY: Angiographically normal RIGHT CORONARY ARTERY: Angiographically normal COMPLICATIONS No Complications PROCEDURE MEDICATIONS Fentanyl 50 mcg IV Versed 1 mg IV Oxygen: 2 L/min via nasal cannula Oxygen: 4 L/min via nasal cannula Heparin given IA 11/12/2021 09:45:35 SUMMARY OF HEMODYNAMIC DATA Time AIR REST ECG 09:23:15 AO 83/63 (73) SA 09:47:25 LV 138/0, 21 09:59:13 LV 138/0, 21 09:59:21 LVp 137/-4, 22 09:59:27 AOp 105/60 (79) 09:59:34 Signed By Dc Mazariegos MD On 11/12/2021 18:09:44 Dc Mazariegos MD
[2021-11-12] MEDS: traZODone 50 MG Tablet PO (21:02)
[2021-11-13 03:00] VITALS: PULSE 51
[2021-11-13 04:35] VITALS: BP 126/71; PULSE 51; RESP 16; TEMP 36.8; O2SAT 95
--- NOTE | 2021-11-13 05:55 | EKG12_ITS ---
Test Reason : AM Blood Pressure : / mmHG Vent. Rate : 041 BPM Atrial Rate : 041 BPM P-R Int : 176 ms QRS Dur : 092 ms QT Int : 520 ms P-R-T Axes : 049 -38 013 degrees QTc Int : 429 ms Marked sinus bradycardia Left axis deviation Low voltage QRS Cannot rule out Anterior infarct , age undetermined Abnormal ECG When compared with ECG of 10-NOV-2021 19:21, Nonspecific T wave abnormality, worse in Anterior leads Confirmed by DARSHANA CONDON, CARMENZA ([id number]), editorial intern ANDREI NAVARRO ([id number]) on 11/17/2021 1:07:09 PM Referred By: KALEIGH Confirmed By:CARMENZA GILLILAND MD
[2021-11-13 06:27] LABS: Absolute Lymphocyte Count 0.81 X10^3/uL (0.83-4.51); Absolute Neutrophil Count 6.8 X10^3/uL (2.0-7.7); Basophil# 0.04 X10^3/uL; Basophil% 0.5 % (0-1); Eosinophil# 0.16 X10^3/uL; Eosinophils% 1.9 % (0-5); Hematocrit 41.9 % (40-54); Hemoglobin 13.9 g/dL (13.0-16.5); Lymphocyte # 0.81 X10^3/ul (0.83-4.51); Lymphocyte % 9.6 % (19-41); Mean Corp Hgb Conc 33.2 g/dL (32-36); Mean Corpuscular Volume 93.3 fL (80-94); Mean Platelet Vol. 10.4 fl (6.2-12.0); Monocyte# 0.65 X10^3/uL; Monocyte% 7.7 % (0-10); NRBC Flagged by Analyzer 0 % (0-5); Neutrophil # 6.77 X10^3/uL (2.7-7.7); Neutrophil % 80.1 % (47-70); Platelet Count 147 K/mm3 (150-450); RBC Distribution Width CV 13.4 % (11.6-14.6); RBC Distribution Width SD 45.8 fl (35.1-43.9); Red Blood Count 4.49 M/mm3 (4.6-6.2); White Blood Count 8.5 K/mm3 (4.4-11.0)
[2021-11-13 06:52] VITALS: BP 134/69; PULSE 55; RESP 17; TEMP 36.6; O2SAT 98
[2021-11-13 06:55] LABS: Anion Gap 5 (5-15); BUN 13 mg/dL (7-18); BUN/Creat Ratio 13.7 RATIO (10-20); Calcium,Total 8.3 mg/dL (8.5-10.1); Chloride 109 mmol/L (98-107); Creatinine, Serum 0.95 mg/dL (0.70-1.30); EST Glomerular Filtration Rate 85 mL/min (>60); Est Glom Filt Rate - Afr Amer 103 mL/min (>60); Estimated Creatinine Clearance 94.94 ml/min; Glucose 117 mg/dL (74-106); Phosphorus 2.7 mg/dL (2.5-4.9); Potassium 4.2 mmol/L (3.5-5.1); Sodium Level 143 mmol/L (136-145)
[2021-11-13 07:02] VITALS: PULSE 53
[2021-11-13 07:11] VITALS: O2SAT 93
[2021-11-13] MEDS: Fludrocortisone Acetate 0.1 MG Tablet PO (07:55)
--- NOTE | 2021-11-13 09:36 | PCM.PN.CARD ---
Subjective Subjective The patient is awake and alert. He denies any ongoing chest discomfort or difficulty breathing. He has had no recurrent near syncopal or syncopal events since yesterday morning. Objective Data Vital Signs: Vital Signs Temp Pulse Resp BP Pulse Ox O2 Del Method 97.9 F 53 L 17 134/69 H 93 Room Air 11/13/21 06:52 11/13/21 07:02 11/13/21 06:52 11/13/21 06:52 11/13/21 07:11 11/13/21 09:31 Oxygen Delivery Method Room Air Weight: 191 lb 9.307 oz Body Mass Index (BMI) 24.1 Intake & Output: Intake and Output for Last 24 Hours 11/11/21 11/12/21 11/13/21 23:59 23:59 23:59 Intake Total 1740 / 1740 1792.5 / 1792.5 Output Total 950 / 950 0 / 0 Balance 1740 / 1740 842.5 / 842.5 0 / 0 Lab / Micro Data Result Diagrams: 11/13/21 06:00 11/13/21 06:00 Labs: Laboratory Results - last 24 hr 11/13/21 06:00: WBC 8.5, RBC 4.49 L, Hgb 13.9, Hct 41.9, MCV 93.3, MCH 31.0, MCHC 33.2, RDW Std Deviation 45.8 H, RDW Coeff of Donna 13.4, Plt Count 147 L, MPV 10.4, Immature Gran % (Auto) 0.200, Neut % (Auto) 80.1 H, Lymph % (Auto) 9.6 L, Alcorn % (Auto) 7.7, Eos % (Auto) 1.9, Baso % (Auto) 0.5, Absolute Neuts (auto) 6.8, Absolute Lymphs (auto) 0.81 L, Nucleated RBC % 0 11/13/21 06:00: Sodium 143, Potassium 4.2, Chloride 109 H, Carbon Dioxide 29.0, Anion Gap 5, BUN 13, Creatinine 0.95, Estim Creat Clear Calc 94.94, Est GFR (MDRD) Af Amer 103, Est GFR (MDRD) Non-Af 85, BUN/Creatinine Ratio 13.7, Glucose 117 H, Calcium 8.3 L, Phosphorus 2.7, Magnesium 2.0 Cardiology Labs/Tests 11/13/21 06:00: WBC 8.5, RBC 4.49 L, Hgb 13.9, Hct 41.9, MCV 93.3, MCH 31.0, MCHC 33.2, Plt Count 147 L, MPV 10.4, Immature Gran % (Auto) 0.200, Neut % (Auto) 80.1 H, Lymph % (Auto) 9.6 L, Alcorn % (Auto) 7.7, Eos % (Auto) 1.9, Baso % (Auto) 0.5, Absolute Neuts (auto) 6.8, Nucleated RBC % 0 11/13/21 06:00: Sodium 143, Potassium 4.2, Chloride 109 H, Carbon Dioxide 29.0, Anion Gap 5, BUN 13, Creatinine 0.95, Est GFR (MDRD) Af Amer 103, Est GFR (MDRD) Non-Af 85, BUN/Creatinine Ratio 13.7, Glucose 117 H, Calcium 8.3 L, Phosphorus 2.7, Magnesium 2.0 Rhythm: Sinus rhythm/sinus bradycardia Physical Exam Const alert and oriented x3 Orientation / Consciousness: awake HEENT HEENT Narrative: Occipital area: Laceration/sutures Eyes PERRL, EOMs intact bilaterally, conjunctivae normal and no scleral icterus Neck full ROM, supple and no JVD Carotids: normal carotid upstroke Resp normal respiratory effort and clear to auscultation bilaterally Cardio regular rhythm, S1 normal heart sound and S2 normal heart sound Rate: bradycardia GI normal to inspection, nondistended, normoactive bowel sounds Extremity no pedal edema Skin Skin Narrative: Occipital area: Laceration Psych mental status grossly normal Assessment & Plan Assessment/Plan (1) Syncope and collapse: PLAN: The patient has a history of tilt table positive syncope thought related to vasovagal/neurocardiogenic mediated syncope with cardioinhibitory/vasodilatory components. He has been maintaining fluid resuscitation. He has been on medical management with fludrocortisone. He is also been on beta-jb therapy for variety of reasons. Overall he is done well until just recently. It is unclear with respect to his symptoms of palpitations the day prior to his event as to whether this was an attempt at recurrence of his atrial dysrhythmia. Based upon his presenting episode and the description of his episode there is concern that he may have experienced another vasovagal mediated type event. There is concern as to whether this was exacerbated by his changing of his cardiac rhythm and rate from atrial fibrillation to sinus rhythm with sinus bradycardia. He has now experienced an episode after getting out of bed, standing to urinate, of a similar type near-syncope/syncope event leading to a fall and subsequent head trauma. He was evaluated by the hospital staff, placed in a soft C-spine collar, underwent radiologic studies which were reported as unremarkable for any acute changes, and is status post an occipital area laceration/sutures. As noted before, this episode may have been a situational type orthostatic/vagal mediated event. (2) Bradycardia: PLAN: The patient has been noted to have a change in his cardiac rhythm and cardiac rate as previously described. His medications had previously been decreased with respect to dosage. Based upon his bradycardia at this time his rate limiting medicine and antiarrhythmic medication have been placed on hold. Over time consideration can be given with respect to his rate as to how to further adjust medication. With the patient's permission his case was reviewed by Dr. Cano with respect to consideration for possible future permanent pacemaker placement. He recommended additional input from electrophysiology. Again with the patient's permission his case was reviewed with Dr. Rios of [facility] electrophysiology who assists in the care of patients at [facility]. He noted concerns with bradycardia/tachycardia and a sick sinus syndrome as well as potential chronotropic incompetence which would lead to a future permanent pacemaker placement. He also noted concerns that the patient's near syncopal/syncopal events appeared more compatible with his vasovagal type mediated events as opposed to being related to his underlying cardiac rate, dysrhythmia, or conduction system related issues and thus would not be remedied by a permanent pacemaker.. He did recommend an attempt at having the patient exercise as best as possible on a treadmill and monitoring his heart rate response which would help guide the need for further EP evaluation/care including the concern of permanent pacemaker placement and the timing of such. Thus the plan at the moment will be to have the patient exercise on a treadmill as best as possible taking into consideration his multiple medical issues and monitor his heart rate response. His case can then be further discussed with electrophysiology for additional recommendations. (3) Paroxysmal atrial fibrillation: PLAN: The patient had a history of atrial fibrillation. He has been back in sinus rhythm. Based upon his bradycardia his medications are on hold. Depending upon his future rhythm he may or may not need to be placed back on antiarrhythmic therapy. Ideally he would continue anticoagulant therapy with the exception of interruption for other reasons. There is still a concern as to whether or not he is demonstrating evidence of bradycardia/tachycardia and will need not only medical therapy but potentially a permanent pacemaker support as noted above. (4) Wide-complex tachycardia: PLAN: He did have a history of wide-complex tachycardia. Based on his previous studies there was concern this may have been a combination of aberrancy and ventricular ectopy/tachycardia. He is undergone noninvasive studies which thus far have revealed preserved left ventricular wall motion and systolic function and no obvious evidence of myocardial ischemia. It is unclear as to whether his palpitations recently were related to any wide-complex dysrhythmia. He has continued with underlying bradycardia but no other dysrhythmias reported thus far. He has undergone further evaluation with a transthoracic echocardiogram. The results are as noted. His overall LV systolic function/LVEF remains preserved. He has subsequently undergone further definitive evaluation with a diagnostic cardiac catheterization. He did not appear to have any angiographically significant appearing CAD that would contribute to a CAD/ischemic mediated cardiac dysrhythmia such as a ventricular dysrhythmia. (5) Premature atrial contraction: PLAN: He also has a history of ectopy with PACs and PVCs. At the moment he appears without obvious symptoms and or adverse events. (6) Asymptomatic premature ventricular contractions: PLAN: Again he has a history of PACs and PVCs. He is being monitored for any concerns. (7) Factor V Leiden: PLAN: He does have a prothrombotic event. He has been on anticoagulant therapy. He will need to restart anticoagulant therapy-the timing of which is based upon his recent laceration/sutures and whether or not he is going to be having any other invasive procedures performed. Addt'l Comments The patient's case has been discussed with the patient and previously with his multiple family members. This note was generated using a voice recognition system and there may be incorrect words, spelling or punctuation that were not noted when reviewing the office note prior to saving. Procedure Criteria Type of Procedure Procedure Type: Elective Elective Risks - COVID COVID Risk Discussion: The surgeon/proceduralist and patient have discussed in detail the risk of exposure to and/or potential harm posed by the COVID-19 virus with having a surgery/procedure at this time versus the risk of delaying the surgery/procedure. It is not possible to know either the risk of delaying the surgery or procedure or chance of getting an infection with perfect accuracy, but a joint decision was made between the patient and the surgeon/proceduralist to proceed at this time with the scheduled surgery/procedure as indicated on the consent form.
--- NOTE | 2021-11-13 09:48 | STRESSREP_ITS ---
Stress Test Report Date: 11-13-2021 Procedure: Exercise tolerance test Indications: Cardiac dysrhythmia; syncope Consent: Per the patient Procedure: The patient exercised on a Modified Avinash protocol for 6 minutes completing Stage II achieving a peak heart rate of 122 bpm (76% predicted maximal heart rate) with a peak blood pressure 164/80 mmHg and a peak MET capacity of approximately 3 MET's. The baseline ECG demonstrated sinus bradycardia; nonspecific ST/T wave abnormality. The peak exercise ECG demonstrated somatic/motion artifact with continued nonspecific ST/T wave abnormality at the heart rate achieved. There was a rare PVC during exercise/recovery. The functional capacity was considered decreased. The patient had no complaint of chest discomfort during exercise or recovery. The examination was discontinued secondary to dyspnea and fatigue. Impression: 1. Technically inadequate (percent predicted maximal heart rate less than 85%) exercise tolerance test 2. Peak exercise ECG with continued somatic/motion artifact with continued nonspecific ST/T wave abnormality at the heart rate achieved 3. There was a rare PVC during exercise and recovery This note was generated with [employer] software. It may contain incorrect words, spelling, and punctuation that were not noted in checking the note before signing.
[2021-11-13 10:10] VITALS: BP 117/69; PULSE 56; RESP 18; TEMP 36.4; O2SAT 96
[2021-11-13] MEDS: DiphenhydrAMINE 25 MG Capsule PO (12:53)
--- NOTE | 2021-11-13 13:10 | DS.PCM_ITS ---
Providers Date of Admission: 11/10/21 Date of Discharge: 11/13/21 Primary Care Physician: Dr. Dc Glez MD Consultations 11/10/21 21:23 Consult: Cardiology Routine Consulting Provider: Dc Mazariegos Reason for Consult: Syncope, bradycardia EMERGENT Consult: No Notified: Yes Date Notified: 11/10/21 Time Notified: 20:42 Method of Notification: called Reason For Visit: SYNCOPE, BRADYCARDIA Diagnosis Discharge Diagnosis (1) Syncope and collapse: Status: Acute Code(s): R55 - Syncope and collapse (2) Bradycardia: Status: Acute Code(s): R00.1 - Bradycardia, unspecified (3) Paroxysmal atrial fibrillation: Status: Chronic Code(s): I48.0 - Paroxysmal atrial fibrillation (4) Wide-complex tachycardia: Status: Chronic Code(s): I47.2 - Ventricular tachycardia (5) Premature atrial contraction: Status: Chronic Code(s): I49.1 - Atrial premature depolarization (6) Asymptomatic premature ventricular contractions: Status: Chronic Code(s): I49.3 - Ventricular premature depolarization (7) Factor V Leiden: Status: Chronic Code(s): D68.51 - Activated protein C resistance Plan Syncope -Patient has known vasovagal/neurocardiogenic mediated syncope previously with positive tilt table -Continue Florinef -Noted to be bradycardic and beta-jb and amiodarone on hold -Telemetry has been reviewed and no marked abnormalities other than bradycardia which is improving with discontinuation of his beta-jb and amiodarone -Did have a syncopal event this morning while urinating that was similar to previous episodes -CT of the head and cervical spine are negative for any acute injuries -Cardiac catheterization was done and negative for any obstructive disease -Plan is for discussion with Dr. Cano for possible pacemaker placement Bradycardia -This is a change in his previous rhythm prior to admission -Beta-jb and amiodarone have been held -TSH is 2.07 -Seems to be improving -Management per cardiology Scalp laceration -Laceration was irrigated and cleaned and sutured -Ice as needed to the area -Suture removal in 7 to 10 days History of cardiac arrhythmias -See above -Cardiology following and may be evaluated for pacemaker placement -Anticoagulation on hold for now History of factor V Leiden -Previous DVT and PE with recurrent events -Patient with history of retroperitoneal bleed on Coumadin secondary to subtherapeutic INR -Has been on Xarelto -Xarelto on hold secondary to possible interventional strategies History of DRESS -No current issues DVT prophylaxis -SCDs -Chemoprophylaxis on hold until procedures completed -Last dose of Xarelto was 2 days ago--> hopefully will be able to restart in the next 24 to 48 hours CODE STATUS -full code Medications at Discharge Home Medications fludrocortisone 0.1 mg tablet 0.1 mg PO DAILY #90 tabs 01/29/21 rivaroxaban 20 mg tablet 20 mg PO DAILY #90 tabs 11/13/21 Hospital Course Operations None Procedures 2-D Echocardiogram, Cardiac catheterization and - (Modified Avinash protocol stress test) Summary of Care Provided Minutes Spent on Discharge: 39 Hospital Course: Mr. Peck is a 61-year-old white male who presented to emergency department on 11/10/2021 with syncope. On the evening prior to presentation the patient was suffering from palpitations at rest, then cessation of his heart racing and a near syncopal event that occurred at approximately 2:30 in the afternoon prior to presentation. The patient eventually ended up with a full syncopal event with no injury. He was found diaphoretic and pale by the family but states he recalls the entire event and feels that it lasted no more than 5 to 10 seconds. He is known to have vasovagal issues with a positive tilt table test previously and takes Florinef for this. In the emergency department he was noted to have persistent bradycardic events with heart rates in the 30s to 40s. He was on amiodarone and beta-jb on presentation. In the ED included or the static vital signs with laying BP 120/71, heart rate 41, sitting BP 141/75, heart rate 44, standing BP 135/78, heart rate 52 noted to be asymptomatic with no lightheadedness or dizziness at that time, initial presentation EKG vital signs included T97.9, heart rate 45, BP 134/82, respiratory rate 16, 97% on room air, chest x-ray with mild cardiomegaly with no overt evidence of overload, mild emphysematous changes with otherwise no acute cardiopulmonary finding, EKG with sinus bradycardia with no acute evidence of ischemia and noted continued bradycardia with rate down into the 30s on monitor during evaluation, CBC with WC 6.1, hemoglobin 14.8, platelet 192 without marked shift, CMP unremarkable aside mild total bilirubin elevation 1.10. He was evaluated by cardiology on the a.m. of 11/11/2021 and given his ongoing issues he was scheduled to be taken to the cardiac catheterization lab on the a.m. of 11/12/2021. He unfortunately suffered from another syncopal event early in the morning while getting up to go to the bathroom on the and suffered from a laceration on the posterior parietal/occipital region of his right head. CT of his head and neck were performed and both found to be unremarkable other than soft tissue swelling. His laceration was irrigated aggressively and sutured closed with 6 sutures that are interrupted. Good approximation was obtained and the patient had no further bleeding. Fortunately his anticoagulation was held for his upcoming catheterization. He does have a history of factor V Leiden with recurrent DVTs and PEs and takes Xarelto for this at baseline. He was taken to cardiac catheterization lab after he was cleared from a neurological and injury stand point with regards to his fall. He was found to have nonobstructive coronary disease on his cardiac catheterization. His beta-jb and amiodarone were held since admission given his bradycardia and his case was discussed with an traffic circuit engineer. They recommended a stress test which was performed with a modified Avinash protocol and he was able to get his heart rate up into the 120s with exertion. His case was rediscussed with the EP and it was felt that he may benefit from pacemaker placement. Pacemaker placement was discussed by cardiology with the family and they are aware that this will likely not be 800% of his events given that he has a vasovagal history as well however it is felt that some of his syncope is tachybradycardia mediated. It was felt that he was safe to be discharged home with limited activity and no work and driving on 11/13/2021. He is to follow-up at Dr. Mazariegos office for pacemaker teaching at 11 AM on 11/16/2021 and to continue his Xarelto until 11/17/2021 with his last dose being on Tuesday. He will be brought in on for pacemaker placement have an overnight stay after pacemaker placement. The patient and family did indicate that he has some lower extremity weakness which has been problematic since his hospitalization for DRESS and it occurs with prolonged sitting and improves with ambulation. I did recommend that he possibly follow- up with his primary care physician for an MRI of the lumbar spine and depending on those results possibly consider an nerve conduction and EMG of his lower extremities. Family stated they would discuss this with his primary care physician. I recommended follow-up with his PCP within the next 2 to 4 weeks. He has an appointment as noted above with Dr. Mazariegos's office on Tuesday for his pacemaker instruction. He was discharged home in stable condition off of his beta-jb and amiodarone on 11/13/2021. Discharge diagnoses: Syncope History of vasovagal syncope Tachybradycardia syndrome Fall Scalp laceration History of cardiac arrhythmias Factor V Leiden with history of PE/DVT History of DRESS Weight / BMI Weight Weight: 86.9 kg Body Mass Index (BMI) 24.1 ABG / Lab / Microbiology Data Result Diagrams: 11/13/21 06:00 11/13/21 06:00 Laboratory: Laboratory Results - last 24 hr 11/13/21 06:00: WBC 8.5, RBC 4.49 L, Hgb 13.9, Hct 41.9, MCV 93.3, MCH 31.0, MCHC 33.2, RDW Std Deviation 45.8 H, RDW Coeff of Donna 13.4, Plt Count 147 L, MPV 10.4, Immature Gran % (Auto) 0.200, Neut % (Auto) 80.1 H, Lymph % (Auto) 9.6 L, Angelina % (Auto) 7.7, Eos % (Auto) 1.9, Baso % (Auto) 0.5, Absolute Neuts (auto) 6.8, Absolute Lymphs (auto) 0.81 L, Nucleated RBC % 0 11/13/21 06:00: Sodium 143, Potassium 4.2, Chloride 109 H, Carbon Dioxide 29.0, Anion Gap 5, BUN 13, Creatinine 0.95, Estim Creat Clear Calc 94.94, Est GFR (MDRD) Af Amer 103, Est GFR (MDRD) Non-Af 85, BUN/Creatinine Ratio 13.7, Glucose 117 H, Calcium 8.3 L, Phosphorus 2.7, Magnesium 2.0 D/C Instructions Discharge Diet: Low fat / Low cholesterol Discharge Activity: May Not Drive and - (Limit activity until pacemaker placement) Call your doctor if your incision/area has: Continuous Slow Oozing, Sudden Increased Bleeding, Increased Pain/ Swelling, Increased Redness, Foul Smelling Discharge, Swelling at the incision site and - (Do not soak head laceration until sutures are removed) Cleanse incision/area with: Soap & Water (Pat gently daily) Meaningful Use Info Meaningful Use Diagnoses (Choose all that apply): None applicable Discharge Plan Admission Admit Date/Time: 11/10/21 20:37 Primary Reason for Your Visit: Syncope Attending Provider: Jackie Castano Primary Care Provider: Dc Glez Consulting Providers: Dc Mazariegos ; America Lei ; Dhruv Karimi Instructions Additional Instructions / Restrictions: 1. Remove sutures on 11/23/2021 2. Follow-up for pacemaker instruction/teaching at Dr. Mazariegos office on Tuesday as noted below 3. Continue Xarelto for now and stop after dose on 11/17/2021 for pacemaker placement 4. No work until cleared by cardiology after pacemaker placement Discharge Orders/Prescriptions Prescriptions: Continued rivaroxaban 20 mg tablet 20 mg PO DAILY Qty: 90 3RF Rx Instructions: Hold after dose on 11/17/2021 for pacemaker placement fludrocortisone 0.1 mg tablet 0.1 mg PO DAILY Qty: 90 4RF Discontinued metoprolol tartrate 25 mg tablet 25 mg PO BID Qty: 180 3RF amiodarone 200 mg tablet 200 mg PO BID Referrals / Follow Up: Dc Mazariegos MD [Med Staff - Active Staff] - See Referral Note (11/16/2021 at 11 AM for pacemaker teaching) Dc Glez MD [Primary Care Provider] - Within 2 Weeks Disposition Disposition (needs filled in before D/C Order can be placed): Home, Self Care Charges/Coding Visit Charges Inpatient E&M: 16595 Disch Hosp
--- NOTE | 2021-11-13 16:13 | CASEMGMT ---
Patient and his were interested in Healthcare Power of Roofing Contractor and Healthcare Living Will. SW provided them with documents and they would like to take them home to review them. Joyce June DISPUTE RESOLUTION SPECIALISTLeonidas LUCAS
== END 2021-11-13 14:15 | disposition home or self-care (01) | DRG 287 ==
LOC: ED 20:32 → PCU 11-11 08:23
PROVIDERS: Admitting Provider Family Medicine; Emergency Provider Emergency Medicine; PCP Family Medicine; Visit Provider Internal Medicine
DX: I49.8 Other specified cardiac arrhythmias (principal); D68.51 Activated protein C resistance; I25.10 Atherosclerotic heart disease of native coronary artery without angina pectoris; S01.01XA Laceration without foreign body of scalp, initial encounter; I49.1 Atrial premature depolarization; I47.2 Ventricular tachycardia; I48.0 Paroxysmal atrial fibrillation; I95.1 Orthostatic hypotension; W18.39XA Other fall on same level, initial encounter; I49.3 Ventricular premature depolarization; Y92.239 Unspecified place in hospital as the place of occurrence of the external cause; Z79.01 Long term (current) use of anticoagulants; Z79.899 Other long term (current) drug therapy; Z87.2 Personal history of diseases of the skin and subcutaneous tissue; Z86.711 Personal history of pulmonary embolism; Z86.718 Personal history of other venous thrombosis and embolism
CPT/HCPCS: 36415; 70450; 71045; 72125; 80048; 80053; 83735; 84100; 84443; 84484; 85025; 87426; 93005; 93017; 93306; 93454; 99152; 99153; 99285; J7030; Q9967; A4216; C1769; C1894; J2405

== ENCOUNTER 2021-11-14 10:19 | Emergency (ER) | payer OTHER, BC, SELFPAY ==
[2021-11-14 10:20] VITALS: BP 172/90; PULSE 73; RESP 18; TEMP 36.9; O2SAT 96; BMI 25.2
--- NOTE | 2021-11-14 10:32 | EDS_ITS ---
HPI History of Present Illness Chief Complaint: Allergic Reaction Detail of Chief Complaint: Rash that started yesterday prior to discharge Informant: patient, spouse/S.O. and family Onset/Context/Timing Onset: Yesterday Context: Sudden Onset Timing: Continuous Quality: Erythematous rash with pustules and now swelling of the periorbital region Location: Predominately face and tongue are swollen per patient Current Severity: Moderate Maximum Severity: Moderate Worsened by: Possible systemic drug reaction versus infectious cause. Relieved by: Nothing Associated Symptoms Associated Symptoms: Symptoms of angioedema Narrative Narrative: Patient is a 61-year-old male with history of sick sinus syndrome, bradycardia, paroxysmal atrial fibrillation, wide-complex tachycardia and factor V Leiden deficiency. He is presently on Eliquis. The Eliquis was discontinued prior to cardiac catheterization. Only new exposures during his most recent hospi talization or Zofran and contrast for cardiac catheterization. He had a similar rash which was treated as infectious October 2017. It was later determined after consultation with dermatology that patient had systemic drug reaction. He had a prolonged hospital stay for that illness. Daughter who is a nurse practitioner states the rash is similar to the rash he had in 2018. She states he had pustules and there was concern the patient had septic shock because of multiorgan dysfunction. It was later determined to be a systemic drug reaction. They believe it was due to vancomycin. Patient denies fever, chills night sweats. He denies rhinorrhea or congestion. Denies sore throat. He does not believe he has change in voice. He had difficulty swallowing his pills. He states the rash is not pruritic. The rash initially involve the upper extremities. He was seen by Dr. Castano yesterday and treated with Benadryl per patient and family. He presents because the rash has gotten worse and now involves his torso and face with facial swelling. He denies vomiting or diarrhea. He denies swelling of his legs. He denies paresthesia, anesthesia or motor weakness. Prior similar symptoms: Yes (Systemic drug reaction with multiorgan dysfunction) Recent Illness/Hospitalization: Yes (For syncope requiring pacemaker) [facility] Medical History Abscess of right thigh Acute cystitis DAYNA (acute kidney injury) Anemia Asymptomatic premature ventricular contractions Atrial fibrillation with RVR Coagulopathy Elevated LFTs Factor V Leiden Fever with exanthematous rash Hematuria History of DVT (deep vein thrombosis) History of left heart catheterization (LHC) (~11/12/21) History of pulmonary embolism 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 knee joint Paroxysmal atrial fibrillation Premature atrial contraction Septic shock Severe sepsis Sick sinus syndrome Syncope and collapse Wide-complex tachycardia Home Medications fludrocortisone 0.1 mg tablet 0.1 mg PO DAILY #90 tabs 01/29/21 [Rx Last Taken Unknown] rivaroxaban 20 mg tablet 20 mg PO DAILY #90 tabs 11/13/21 [Rx Last Taken Unknown] diphenhydramine HCl 25 mg capsule (Benadryl) 25 mg PO TID #14 caps 11/14/21 [Rx Last Taken Unknown] famotidine 20 mg tablet 20 mg PO BID #10 TABLETS 11/14/21 [Rx Last Taken Unknown] prednisone 20 mg tablet 60 mg PO DAILY #15 TABLETS 11/14/21 [Rx Last Taken Unknown] Allergy/AdvReac Type Severity Reaction Status Date / Time Sulfa (Sulfonamide Allergy Unknown Verified 11/14/21 10:19 Antibiotics) vancomycin Allergy Fever and Verified 11/14/21 10:19 skin rash ceftriaxone AdvReac Rash Verified 11/14/21 10:19 linezolid AdvReac Rash Verified 11/14/21 10:19 Family History Mother Ulcerative colitis Grandfather No problems noted. 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 pets and animals: Yes (cat) Smoking Status: Never smoker alcohol intake: current details: occasional substance use type: does not use caffeine: No ROS ROS ED Constitutional Constitutional ED: Denies chills, fever(s), subjective, sweats or weight loss Eyes Eyes: Denies blurry vision, change in vision or diplopia ENT ENT ED: Reports other Details: Swelling of tongue ; Denies ear pain, rhinorrhea or sore throat Cardiovascular Cardiovascular: Denies chest pain, orthopnea, palpitations, paroxysmal nocturnal dyspnea or racing heartbeat Respiratory/Chest Respiratory/Chest: Denies cough, dyspnea, dyspnea on exertion, orthopnea, paroxysmal nocturnal dyspnea or sputum Gastrointestinal Gastrointestinal: Denies abdominal pain, constipation, diarrhea, melena, nausea or vomiting Genitourinary Genitourinary ED: Denies dysuria or hematuria Musculoskeletal Musculoskeletal: Denies arthralgias, back pain, myalgias or neck pain Integumentary Reports rash; Denies abscess or Abrasions Neurologic Neurologic: Reports weakness; Denies headache(s) or paresthesias Psychiatric Psychiatric: Denies anxiety Endocrine Endocrinology: Denies cold intolerance, heat intolerance or polydipsia Hematologic/Lymphatic Hematologic/Lymphatic: Reports systems reviewed and no addt'l complaints, except as documented and easy bruising; Denies anemia Allergic/Immunologic Allergic/Immunologic ED: Reports mouth swelling, tongue swelling and urticaria EXAM Physical Exam Const Vital Signs: 11/14/21 10:20 11/14/21 11:31 11/14/21 12:34 Temperature 98.5 F Temperature Source Temporal Pulse Rate 73 56 L 71 Respiratory Rate 18 17 22 H Blood Pressure 172/90 H 134/81 H 129/80 H Blood Pressure Mean 117 98 96 Pulse Ox 96 Oxygen Delivery Method Room Air 11/14/21 14:14 Temperature Temperature Source Pulse Rate 66 Respiratory Rate 18 Blood Pressure 132/74 H Blood Pressure Mean 93 Pulse Ox 95 Oxygen Delivery Method Room Air Positive well nourished and well developed General Appearance ED: well developed and NAD; Negative for cyanotic, diaphoretic or pallor HEENT Reports moist mucous membranes HEENT Narrative: Patient has facial swelling with periorbital swelling predominately right compared to left. There is swelling of his tongue. There is swelling of the uvula. There is an erythematous rash which blanches somewhat. There is also significant mount of pustules. Ears are normal. Nares patent. There is no drainage. There is no erythema or exudate the posterior pharynx. There is no deviation of tongue with protrusion. Eyes PERRL and EOMs intact bilaterally General Eye ED: Negative for pale conjunctiva or scleral icterus Neck no lymphadenopathy, supple and no JVD Neck Narrative: Trachea is midline. There is no inspiratory expiratory stridor. Chest Wall palpation of chest normal; Negative for inspection of chest normal Chest Narrative: She has erythematous rash as well as pustules. Resp normal respiratory effort and clear to auscultation bilaterally Cardio regular rate, regular rhythm, S1 normal heart sound, S2 normal heart sound and no murmurs GI normal to inspection, nondistended, normoactive bowel sounds, non-tender, non- distended and no masses; Negative for hepatosplenomegaly Palpation: soft Back/Spine no CVA tenderness Extremity Extremity Narrative: Changes consistent with venous stasis dermatitis. Neuro oriented x3, CN's II-XII intact bilaterally and no sensory deficits noted Sensorium / Orientation: alert Motor Exam: strength 5/5 throughout Psych mental status grossly normal Skin No no rashes or lesions noted Skin Narrative: Erythematous rash that is slightly raised. The rash is not indurated. There may be slight warmth. There are pustules noted involving the face, extremities and torso. There are hives noted on the upper extremities more so right than left. 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 This may also represent allergic reaction as well as infectious reaction. She states treatment was steroids with his prior reaction. Since the differential includes infectious process he was initially treated with H1 and H2 jb. If his tongue or uvula become more swollen we will treat with epinephrine. Of note he is not on an VIVIANA inhibitor. Patient was reassessed. His rash improved markedly including pustules. Patient still has evidence of angioedema. The uvula has decreased in size. Patient states he is now able to swallow more easily without difficulty. Since he still has angioedema and suspect this represents DRESS we will treat with epinephrine knowing that he had a cardiac catheterization that revealed normal coronaries earlier this week. He also received a dose of Solu-Medrol since he is still having difficulty swallowing. Patient was reassessed at 1315. Facial rash is almost resolved. There is marked improvement of the perioral orbital edema. There is no swelling of the soft palate or uvula. Tongue is still slightly swollen. Voice has improved. Patient was reassessed at 1431. He no longer has tongue or uvula swelling. There is mild swelling of the right upper eyelid. He has improved markedly. Will reassess again in 30 minutes. If he continues to improve will discharge to home with prescription for H1, H2 jb and systemic steroids. Patient was reassessed at 1453. He has minimal amount of pustules noted. There is no erythema. There is slight swelling of the right upper eyelid. There is no swelling of lips, tongue or uvula. Plan is to discharge to home Lab Data Attestation: I reviewed the patient's lab results. Lab results narrative: White count is normal. Differential is normal. There is no evidence of eosinophilia. Lactate is normal. Comprehensive metabolic panel is unremarkable. Labs: Laboratory Results - last 24 hr 11/14/21 11/14/21 11/14/21 10:40 10:40 10:40 WBC 8.6 RBC 4.72 Hgb 14.8 Hct 44.2 MCV 93.6 MCH 31.4 MCHC 33.5 RDW Std Deviation 45.1 H RDW Coeff of Donna 13.1 Plt Count 156 MPV 10.7 Immature Gran % (Auto) 0.200 Neut % (Auto) 77.5 H Lymph % (Auto) 9.8 L [place] % (Auto) 8.4 Eos % (Auto) 3.8 Baso % (Auto) 0.3 Absolute Neuts (auto) 6.6 Absolute Lymphs (auto) 0.84 Nucleated RBC % 0 Sodium 142 Potassium 3.8 Chloride 106 Carbon Dioxide 30.0 Anion Gap 6 BUN 9 Creatinine 0.94 Estim Creat Clear Calc 95.95 Est GFR (MDRD) Af Amer 105 Est GFR (MDRD) Non-Af 87 BUN/Creatinine Ratio 9.6 L Glucose 92 Lactic Acid 0.8 Calcium 8.7 Total Bilirubin 1.10 H AST 21 ALT 25 Alkaline Phosphatase 89 Total Protein 6.9 Albumin 3.3 Globulin 3.6 Albumin/Globulin Ratio 0.9 Discharge Plan Triage Chief Complaint: Allergic Reaction ED Provider: Brayden Melendez Dx/Rx/DC Orders Clinical Impression: Drug reaction with eosinophilia and systemic symptoms, Angioedema with urticaria due to drug Instructions: ED Angioedema, ED Drug Reaction, Other Prescriptions: New prednisone 20 mg tablet 60 mg PO DAILY Qty: 15 0RF famotidine [famotidine] 20 mg tablet 20 mg PO BID Qty: 10 0RF diphenhydramine HCl [Benadryl] 25 mg capsule 25 mg PO TID Qty: 14 0RF No Action rivaroxaban 20 mg tablet 20 mg PO DAILY Qty: 90 3RF Rx Instructions: Hold after dose on 11/17/2021 for pacemaker placement fludrocortisone 0.1 mg tablet 0.1 mg PO DAILY Qty: 90 4RF Primary Care Provider: Dc Glez Referrals: Dc Glez MD [Primary Care Provider] - 3-5 Days Disposition Disposition: Home, Self Care
[2021-11-14] MEDS: Famotidine 200 MG/20 ML MDV 20 MG in 0.9% Normal Saline (Pres. free 8 ML 300 MG IV (10:53)
[2021-11-14] MEDS: DiphenhydrAMINE 50 MG/ML Syringe 25 MG IV (10:53)
[2021-11-14 11:02] LABS: Absolute Lymphocyte Count 0.84 X10^3/uL (0.83-4.51); Absolute Neutrophil Count 6.6 X10^3/uL (2.0-7.7); Basophil# 0.03 X10^3/uL; Basophil% 0.3 % (0-1); Eosinophil# 0.33 X10^3/uL; Eosinophils% 3.8 % (0-5); Hematocrit 44.2 % (40-54); Hemoglobin 14.8 g/dL (13.0-16.5); Lymphocyte # 0.84 X10^3/ul (0.83-4.51); Lymphocyte % 9.8 % (19-41); Mean Corp Hgb Conc 33.5 g/dL (32-36); Mean Corpuscular Hgb 31.4 pg (27.0-32.0); Mean Corpuscular Volume 93.6 fL (80-94); Mean Platelet Vol. 10.7 fl (6.2-12.0); Monocyte# 0.72 X10^3/uL; Monocyte% 8.4 % (0-10); NRBC Flagged by Analyzer 0 % (0-5); Neutrophil # 6.64 X10^3/uL (2.7-7.7); Neutrophil % 77.5 % (47-70); Platelet Count 156 K/mm3 (150-450); RBC Distribution Width CV 13.1 % (11.6-14.6); RBC Distribution Width SD 45.1 fl (35.1-43.9); Red Blood Count 4.72 M/mm3 (4.6-6.2); White Blood Count 8.6 K/mm3 (4.4-11.0)
[2021-11-14 11:13] LABS: ALB/GLOB Ratio 0.9 RATIO (0.9-2.4); AST(SGOT) 21 U/L (15-37); Alanine Aminotransfer ALT/SGPT 25 U/L (16-61); Albumin, Serum 3.3 g/dL (3.2-5.0); Alkaline Phosphatase 89 U/L (45-117); Anion Gap 6 (5-15); BUN 9 mg/dL (7-18); BUN/Creat Ratio 9.6 RATIO (10-20); Calcium,Total 8.7 mg/dL (8.5-10.1); Chloride 106 mmol/L (98-107); Creatinine, Serum 0.94 mg/dL (0.70-1.30); EST Glomerular Filtration Rate 87 mL/min (>60); Est Glom Filt Rate - Afr Amer 105 mL/min (>60); Estimated Creatinine Clearance 95.95 ml/min; Globulin 3.6 g/dL (2.2-4.2); Glucose 92 mg/dL (74-106); Potassium 3.8 mmol/L (3.5-5.1); Protein, Total 6.9 g/dL (6.4-8.2); Sodium Level 142 mmol/L (136-145)
[2021-11-14 11:22] LABS: Lactic Acid 0.8 mmol/L (0.4-1.9)
[2021-11-14 11:31] VITALS: BP 134/81; PULSE 56; RESP 17
[2021-11-14] MEDS: Epi Pen (EQUIV) 0.3 MG Syringe IM (12:30)
[2021-11-14] MEDS: MethylPREDNISolone 125 MG/2 ML Vial IV (12:30)
[2021-11-14 12:34] VITALS: BP 129/80; PULSE 71; RESP 22
[2021-11-14 14:14] VITALS: BP 132/74; PULSE 66; RESP 18; O2SAT 95
--- NOTE | 2021-11-14 15:02 | EX.ED.DYSGE1 ---
HPI History of Present Illness Chief Complaint: Allergic Reaction Narrative Narrative: This is a duplicate chart because I was unable to access the original document that was signed. This chart was created to document critical care time. [facility] Medical History Abscess of right thigh Acute cystitis DAYNA (acute kidney injury) Anemia Asymptomatic premature ventricular contractions Atrial fibrillation with RVR Coagulopathy Elevated LFTs Factor V Leiden Fever with exanthematous rash Hematuria History of DVT (deep vein thrombosis) History of left heart catheterization (LHC) (~11/12/21) History of pulmonary embolism 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 knee joint Paroxysmal atrial fibrillation Premature atrial contraction Septic shock Severe sepsis Sick sinus syndrome Syncope and collapse Wide-complex tachycardia Home Medications fludrocortisone 0.1 mg tablet 0.1 mg PO DAILY #90 tabs 01/29/21 [Rx Last Taken Unknown] rivaroxaban 20 mg tablet 20 mg PO DAILY #90 tabs 11/13/21 [Rx Last Taken Unknown] diphenhydramine HCl 25 mg capsule (Benadryl) 25 mg PO TID #14 caps 11/14/21 [Rx Last Taken Unknown] famotidine 20 mg tablet 20 mg PO BID #10 TABLETS 11/14/21 [Rx Last Taken Unknown] prednisone 20 mg tablet 60 mg PO DAILY #15 TABLETS 11/14/21 [Rx Last Taken Unknown] Allergy/AdvReac Type Severity Reaction Status Date / Time Sulfa (Sulfonamide Allergy Unknown Verified 11/14/21 10:19 Antibiotics) vancomycin Allergy Fever and Verified 11/14/21 10:19 skin rash ceftriaxone AdvReac Rash Verified 11/14/21 10:19 linezolid AdvReac Rash Verified 11/14/21 10:19 Family History Mother Ulcerative colitis Grandfather No problems noted. 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 pets and animals: Yes (cat) Smoking Status: Never smoker alcohol intake: current details: occasional substance use type: does not use caffeine: No EXAM Physical Exam Const Vital Signs: 11/14/21 10:20 11/14/21 11:31 11/14/21 12:34 Temperature 98.5 F Temperature Source Temporal Pulse Rate 73 56 L 71 Respiratory Rate 18 17 22 H Blood Pressure 172/90 H 134/81 H 129/80 H Blood Pressure Mean 117 98 96 Pulse Ox 96 Oxygen Delivery Method Room Air 11/14/21 14:14 Temperature Temperature Source Pulse Rate 66 Respiratory Rate 18 Blood Pressure 132/74 H Blood Pressure Mean 93 Pulse Ox 95 Oxygen Delivery Method Room Air MDM MDM Lab Data Labs: Laboratory Results - last 24 hr 11/14/21 11/14/21 11/14/21 10:40 10:40 10:40 WBC 8.6 RBC 4.72 Hgb 14.8 Hct 44.2 MCV 93.6 MCH 31.4 MCHC 33.5 RDW Std Deviation 45.1 H RDW Coeff of Donna 13.1 Plt Count 156 MPV 10.7 Immature Gran % (Auto) 0.200 Neut % (Auto) 77.5 H Lymph % (Auto) 9.8 L [place] % (Auto) 8.4 Eos % (Auto) 3.8 Baso % (Auto) 0.3 Absolute Neuts (auto) 6.6 Absolute Lymphs (auto) 0.84 Nucleated RBC % 0 Sodium 142 Potassium 3.8 Chloride 106 Carbon Dioxide 30.0 Anion Gap 6 BUN 9 Creatinine 0.94 Estim Creat Clear Calc 95.95 Est GFR (MDRD) Af Amer 105 Est GFR (MDRD) Non-Af 87 BUN/Creatinine Ratio 9.6 L Glucose 92 Lactic Acid 0.8 Calcium 8.7 Total Bilirubin 1.10 H AST 21 ALT 25 Alkaline Phosphatase 89 Total Protein 6.9 Albumin 3.3 Globulin 3.6 Albumin/Globulin Ratio 0.9 Critical Care Time Critical Care Time: Yes Critical care time (excluding procedures): 30-74 minutes (32 minutes), Including time spent: (History, physical, documentation, review of prior records, discussion with family members and patient, interpretation laboratory results) and Discussing w/Patient &/or Family/Innovation Analyst Discharge Plan Triage Chief Complaint: Allergic Reaction ED Provider: Brayden Melendez Dx/Rx/DC Orders Clinical Impression: Drug reaction with eosinophilia and systemic symptoms, Angioedema with urticaria due to drug Instructions: ED Angioedema, ED Drug Reaction, Other Prescriptions: New prednisone 20 mg tablet 60 mg PO DAILY Qty: 15 0RF famotidine [famotidine] 20 mg tablet 20 mg PO BID Qty: 10 0RF diphenhydramine HCl [Benadryl] 25 mg capsule 25 mg PO TID Qty: 14 0RF No Action rivaroxaban 20 mg tablet 20 mg PO DAILY Qty: 90 3RF Rx Instructions: Hold after dose on 11/17/2021 for pacemaker placement fludrocortisone 0.1 mg tablet 0.1 mg PO DAILY Qty: 90 4RF Primary Care Provider: Dc Glez Referrals: Dc Glez MD [Primary Care Provider] - 3-5 Days Disposition Disposition: Home, Self Care
[2021-11-14 15:06] VITALS: BP 135/70; PULSE 62; RESP 17; O2SAT 97
--- NOTE | 2021-11-18 09:51 | HP.PCM_ITS ---
History and Physical Date of Admission: 11/19/21 [facility] Medical Records Department [address] [place] [place] [address] Progress Note - Cardiology 11/13/2136 MR#:? [id number] Acct: [id number] Name: HUNG LAWSON Rep #: [id number] :? 1960 61 From:? Dc Mazariegos MD PCP: Dr. Dc Glez MD Status: ADM IN Location: [place] [address] Subjective Subjective The patient is awake and alert.? He denies any ongoing chest discomfort or difficulty breathing.? He has had no recurrent near syncopal or syncopal events since yesterday morning. Objective Data Vital Signs: Vital Signs Temp Pulse Resp BP Pulse Ox O2 Del Method ?97.9 F ?53 L ?17 ?134/69 H ?93 ?Room Air ?11/13/21 06:52 ?11/13/21 07:02 ?11/13/21 06:52 ?11/13/21 06:52 ?11/13/21 07:11 ?11/13/21 09:31 Oxygen Delivery Method? Room Air? Weight: ? 191 lb 9.307 oz ? Body Mass Index (BMI) ? 24.1? Intake & Output: Intake and Output for Last 24 Hours ? 11/11/21 11/12/21 11/13/21 ? 23:59 23:59 23:59 Intake Total 1740 / 1740 1792.5 / 1792.5 ? Output Total ? 950 / 950 0 / 0 Balance 1740 / 1740 842.5 / 842.5 0 / 0 Lab / Micro Data Result Diagrams: 11/13/21 06:00? 11/13/21 06:00? Labs: Laboratory Results - last 24 hr 11/13/21 06:00:?WBC 8.5,?RBC 4.49 L, Hgb 13.9, Hct 41.9, MCV 93.3, MCH 31.0, MCHC 33.2,?RDW Std Deviation 45.8 H, RDW Coeff of Donna 13.4,?Plt Count 147 L, MPV 10.4, Immature Gran % (Auto) 0.200,?Neut % (Auto) 80.1 H,?Lymph % (Auto) 9.6 L, Creek % (Auto) 7.7, Eos % (Auto) 1.9, Baso % (Auto) 0.5, Absolute Neuts (auto) 6.8,?Absolute Lymphs (auto) 0.81 L, Nucleated RBC % 0 11/13/21 06:00:?Sodium 143, Potassium 4.2,?Chloride 109 H, Carbon Dioxide 29.0, Anion Gap 5, BUN 13, Creatinine 0.95, Estim Creat Clear Calc 94.94, Est GFR (MDRD) Af Amer 103, Est GFR (MDRD) Non-Af 85, BUN/Creatinine Ratio 13.7,?Glucose 117 H,?Calcium 8.3 L, Phosphorus 2.7, Magnesium 2.0 Cardiology Labs/Tests 11/13/21 06:00:?WBC 8.5,?RBC 4.49 L, Hgb 13.9, Hct 41.9, MCV 93.3, MCH 31.0, MCH C 33.2,?Plt Count 147 L, MPV 10.4, Immature Gran % (Auto) 0.200,?Neut % (Auto) 80.1 H,?Lymph % (Auto) 9.6 L, Creek % (Auto) 7.7, Eos % (Auto) 1.9, Baso % (Auto) 0.5, Absolute Neuts (auto) 6.8, Nucleated RBC % 0 11/13/21 06:00:?Sodium 143, Potassium 4.2,?Chloride 109 H, Carbon Dioxide 29.0, Anion Gap 5, BUN 13, Creatinine 0.95, Est GFR (MDRD) Af Amer 103, Est GFR (MDRD) Non-Af 85, BUN/Creatinine Ratio 13.7,?Glucose 117 H,?Calcium 8.3 L, Phosphorus 2.7, Magnesium 2.0 Rhythm: Sinus rhythm/sinus bradycardia Physical Exam Const alert and oriented x3 Orientation / Consciousness: awake HEENT HEENT Narrative: Occipital area: Laceration/sutures Eyes PERRL, EOMs intact bilaterally, conjunctivae normal and no scleral icterus Neck full ROM, supple and no JVD Carotids: normal carotid upstroke Resp normal respiratory effort and clear to auscultation bilaterally Cardio regular rhythm, S1 normal heart sound and S2 normal heart sound Rate: bradycardia GI normal to inspection, nondistended, normoactive bowel sounds Extremity no pedal edema Skin Skin Narrative: Occipital area: Laceration Psych mental status grossly normal Assessment & Plan Assessment/Plan (1) Syncope and collapse: PLAN: The patient has a history of tilt table positive syncope thought related to vasovagal/neurocardiogenic mediated syncope with cardioinhibitory/vasodilatory components. He has been maintaining fluid resuscitation.? He has been on medical management with fludrocortisone.? He is also been on beta-jb therapy for variety of reasons. Overall he is done well until just recently. It is unclear with respect to his symptoms of palpitations the day prior to his event as to whether this was an attempt at recurrence of his atrial dysrhythmia. Based upon his presenting episode and the description of his episode there is concern that he may have experienced another vasovagal mediated type event.? There is concern as to whether this was exacerbated by his changing of his cardiac rhythm and rate from atrial fibrillation to sinus rhythm with sinus bradycardia. He has now experienced an episode after getting out of bed, standing to urinate, of a similar type near-syncope/syncope event leading to a fall and subsequent head trauma.? He was evaluated by the hospital staff, placed in a soft C-spine collar, underwent radiologic studies which were reported as unremarkable for any acute changes, and is status post an occipital area laceration/sutures. As noted before, this episode may have been a situational type orthostatic/vagal mediated event.? (2) Bradycardia: PLAN: The patient has been noted to have a change in his cardiac rhythm and cardiac rate as previously described.? His medications had previously been decreased with respect to dosage. Based upon his bradycardia at this time his rate limiting medicine and antiarrhythmic medication have been placed on hold.? Over time consideration can be given with respect to his rate as to how to further adjust medication. With the patient's permission his case was reviewed by Dr. Cano with respect to consideration for possible future permanent pacemaker placement.? He recommended additional input from electrophysiology.? Again with the patient's permission his case was reviewed with Dr. Rios of [facility] electrophysiology who assists in the care of patients at [facility].? He noted concerns with bradycardia/tachycardia and a sick sinus syndrome as well as potential chronotropic incompetence which would lead to a future permanent pacemaker placement.? He also noted concerns that the patient's near syncopal/syncopal events appeared more compatible with his vasovagal type mediated events as opposed to being related to his underlying cardiac rate, dysrhythmia, or conduction system related issues and thus would not be remedied by a permanent pacemaker..? He did recommend an attempt at having the patient exercise as best as possible on a treadmill and monitoring his heart rate response which would help guide the need for further EP evaluation/care including the concern of permanent pacemaker placement and the timing of such. Thus the plan at the moment will be to have the patient exercise on a treadmill as best as possible taking into consideration his multiple medical issues and monitor his heart rate response.? His case can then be further discussed with electrophysiology for additional recommendations. (3) Paroxysmal atrial fibrillation: PLAN: The patient had a history of atrial fibrillation.? He has been back in sinus rhythm. Based upon his bradycardia his medications are on hold. Depending upon his future rhythm he may or may not need to be placed back on antiarrhythmic therapy. Ideally he would continue anticoagulant therapy with the exception of interruption for other reasons. There is still a concern as to whether or not he is demonstrating evidence of bradycardia/tachycardia and will need not only medical therapy but potentially a permanent pacemaker support as noted above. (4) Wide-complex tachycardia: PLAN: He did have a history of wide-complex tachycardia. Based on his previous studies there was concern this may have been a combination of aberrancy and ventricular ectopy/tachycardia. He is undergone noninvasive studies which thus far have revealed preserved left ventricular wall motion and systolic function and no obvious evidence of myocardial ischemia. It is unclear as to whether his palpitations recently were related to any wide- complex dysrhythmia. He has continued with underlying bradycardia but no other dysrhythmias reported thus far. He has undergone further evaluation with a transthoracic echocardiogram.? The results are as noted.? His overall LV systolic function/LVEF remains preserved. He has subsequently undergone further definitive evaluation with a diagnostic c ardiac catheterization.? He did not appear to have any angiographically significant appearing CAD that would contribute to a CAD/ischemic mediated cardiac dysrhythmia such as a ventricular dysrhythmia. (5) Premature atrial contraction: PLAN: He also has a history of ectopy with PACs and PVCs. At the moment he appears without obvious symptoms and or adverse events. (6) Asymptomatic premature ventricular contractions: PLAN: Again he has a history of PACs and PVCs. He is being monitored for any concerns. (7) Factor V Leiden: PLAN: He does have a prothrombotic event. He has been on anticoagulant therapy. He will need to restart anticoagulant therapy-the timing of which is based upon his recent laceration/sutures and whether or not he is going to be having any other invasive procedures performed. Addt'l Comments The patient's case has been discussed with the patient and previously with his multiple family members. This note was generated using a voice recognition system and there may be incorrect words, spelling or punctuation that were not noted when reviewing the office note prior to saving. Procedure Criteria Type of Procedure Procedure Type: Elective Elective Risks - COVID COVID Risk Discussion: The surgeon/proceduralist and patient have discussed in detail the risk of exposure to and/or potential harm posed by the COVID-19 virus with having a surgery/procedure at this time versus the risk of delaying the surgery/procedure.? It is not possible to know either the risk of delaying the surgery or procedure or chance of getting an infection with perfect accuracy, but a joint decision was made between the patient and the surgeon/proceduralist to proceed at this time with the scheduled surgery/procedure as indicated on the consent form. 11/13/21 0944 <Electronically signed by Dc Mazariegos MD> Cosigner Signature (if applicable): ? CC:? ~ Signed ADDENDUM by Dr. Dc Mazariegos MD on 11/13/21 at 1322 Addendum The patient did proceed with his treadmill stress test as noted previously.? The results are noted below. Stress Test Report Date: 11-13-2021 Procedure: Exercise tolerance test Indications: Cardiac dysrhythmia; syncope Consent: Per the patient Procedure: The patient exercised on a Modified Avinash protocol for 6 minutes completing Stage II achieving a peak heart rate of 122 bpm (76% predicted maximal heart rate) with a peak blood pressure 164/80 mmHg and a peak MET capacity of approximately 3 MET's. The baseline ECG demonstrated sinus bradycardia; nonspecific ST/T wave abnormality.? The peak exercise ECG demonstrated somatic/motion artifact with continued nonspecific ST/T wave abnormality at the heart rate achieved. There was a rare PVC during exercise/recovery. The functional capacity was considered decreased. The patient had no complaint of chest discomfort during exercise or recovery. The examination was discontinued secondary to dyspnea and fatigue. Impression: 1.? Technically inadequate (percent predicted maximal heart rate less than 85%) exercise tolerance test 2.? Peak exercise ECG with continued somatic/motion artifact with continued nonspecific ST/T wave abnormality at the heart rate achieved 3.? There was a rare PVC during exercise and recovery The patient's case was subsequently discussed with Dr. iRos of [facility] electrophysiology. Overall it appears the patient carries a diagnosis of bradycardia/tachycardia/sick sinus syndrome.? This is superimposed upon his history of paroxysmal atrial fibrillation with RVR. Noting that the patient has not tolerated rate limiting medication and/or antiarrhythmic medication that affects his cardiac rate as he has developed marked bradycardia and noting that the patient will be returning to at least rate limiting medication to assist with his episodes of paroxysmal atrial fibrillation with RVR as well as potentially additional antiarrhythmic therapy that may affect his rate with respect to contributing to any bradycardia it was thought reasonable that the patient undergo evaluation/care with a permanent pacemaker to assist with this issue noting that this would not offset his separate vasovagal/vasodepressor events. The above was discussed with the patient with his spouse and daughter present.? They acknowledge the aforementioned information.? They are agreeable to proceeding with permanent pacemaker placement-MRI compatible as the patient will be having future MRI studies of his musculoskeletal/neurologic system. Thus, the patient at the present time will remain off of his rate limiting medication.? He will restart his anticoagulant therapy.? He will be scheduled for an upcoming MRI compatible permanent pacemaker placement on 11-19-2021 under the direction [address] Rios.? He will need to refrain from his place of employment during this time as he is recuperating from his current hospitalization and pending his upcoming permanent pacemaker placement. The patient's case has also been discussed and reviewed with Dr. Castano. 11/13/21 6832<Electronically signed by Dc Mazariegos MD> Cosigner Signature (if applicable):? cc: ? ~* Signed Assessment & Plan Addt'l Comments I have examined the patient the following changes are noted: The patient presented to [facility] ED on 11/14/2021 for concerns of a rash. The ED note was reviewed. There were concerns this may have been related to his medical therapy/IV contrast. He was treated with anti- inflammatory agents/corticosteroids, etc. He appeared to have overall improvement. He did not require hospitalization. He was released home for continued outpatient follow-up. The patient did have a preprocedure UA. Based upon the UA findings it was elected to take a conservative approach and attempt antibiotic therapy. He was treated with Cipro. After his first dose he noted concerns of a rash. This was discontinued. He was subsequently placed on nitrofurantoin. He has not had a adverse reaction to that medication thus far. Otherwise he states he has been stable with no recurrent near syncopal or syncopal events. His previous head laceration is healing. On examination this day his head laceration does appear to be healing. His lungs appear to be clear. His cardiovascular exam demonstrates a regular rhythm with normal S1 and S2. He does appear to have a resolving rash on various areas of his body. Overall, at the present time, the patient will continue medical therapy with adjustment as deemed appropriate. As he appears to be symptomatically and hemodynamically stable at this time with no acute findings superimposed upon his previous findings he will proceed with his permanent pacemaker placement under the direction of Dr. Rios of [facility] EP. This note was generated using a voice recognition system and there may be incorrect words, spelling or punctuation that were not noted when reviewing the office note prior to saving.
== END 2021-11-14 15:18 | disposition home or self-care (01) ==
PROVIDERS: Emergency Provider Emergency Medicine; PCP Family Medicine; Visit Provider Emergency Medicine
DX: T50.905A Adverse effect of unspecified drugs, medicaments and biological substances, initial encounter (principal); I48.0 Paroxysmal atrial fibrillation; D68.2 Hereditary deficiency of other clotting factors; L50.9 Urticaria, unspecified; T78.40XA Allergy, unspecified, initial encounter; D72.10 Eosinophilia, unspecified; D64.9 Anemia, unspecified; Z86.718 Personal history of other venous thrombosis and embolism; Z86.711 Personal history of pulmonary embolism; Z79.899 Other long term (current) drug therapy; Z79.52 Long term (current) use of systemic steroids; Z95.0 Presence of cardiac pacemaker
CPT/HCPCS: 80053; 83605; 85025; 96374; 96375; 99283; A4216; J3490

== ENCOUNTER 2021-11-19 09:09 | Day surgery (SDC) | payer OTHER, BC, SELFPAY ==
[2021-11-16 11:35] LABS: Mucous, Urine 0 SEEN /hpf (<or=2+)
[2021-11-16 12:26] LABS: Color, Urine Yellow (Yellow); Glucose, Dipstick Normal (Normal); Ketone-Dipstick Negative (Negative); Leukocyte Esterase-Dipstick 500 /ul (Negative); Nitrite-Dipstick Positive (Negative); Occult Blood-Urine 25 /ul (Negative); Protein-Dipstick 30 mg/dl (Negative); Urine Bilirubin Dipstick Negative (Negative); Urine Clarity Sl. Cloudy (Clear); Urine Urobilinogen Normal (Normal); Urine pH 6.5 (5.0 - 8.0)
[2021-11-16 12:35] LABS: Bacteria 2+ /hpf (None Seen); Red Blood Cells-Urine 0-5 SEEN /hpf (0-5); Squamous Epithelial Cells - UA 0-5 SEEN /hpf (0-5); White Blood Cells 25-50 SEEN /hpf (0-5)
[2021-11-18 07:59] VITALS: BMI 24.2
[2021-11-19] VITALS (11 sets, daily range): BP systolic 113–144; BP diastolic 77–92; PULSE 60–78; RESP 18; TEMP 37–37.2; O2SAT 94–98; BMI 24.7
--- NOTE | 2021-11-19 12:37 | EX.PACEMAKER ---
Pacemaker Procedure Note Pacemaker Procedure Note Diagnosis: SSS WITH IMPLANTATION OF DDD PACER Preoperative diagnosis implantation of DDD pacer via left axillary vein Postoperative diagnosis same as above After informed consent and IV antibiotics the patient was brought to the [facility] catheterization laboratory. The left side of the chest was prepped and draped in the usual sterile manner. The patient was sedated with intermittent boluses of IV Versed and fentanyl as well as subcutaneous 1% lidocaine. An incision was made inferior to the clavicle to accommodate the size of the hardware device. The pocket was created using blunt and Bovie dissection. Hemostasis was obtained. Using the Seldinger technique the axillary vein was cannulated twice and guidewires were advanced under fluoroscopic guidance. Over the guidewire a sheath was advanced. Through this sheath, the electrode was positioned under fluoroscopic guidance into the right ventricle and was actively fixated. Through the second sheath, the RA lead was advanced and actively fixated in the RA appendage. Once actively fixated, the leads were tested to check for proper sensing, capture threshold, impedance and to exclude diaphragmatic stimulation. Once the leads were implanted and all electrical parameters were confirmed to be functioning normally with appropriate values, the leads were then sutured to the pectoralis muscle with 2-0 silk on the Silastic collar ?2. The sponge and needle count were correct. Hemostasis was obtained. Antibiotic solution was used to flush the pocket. The new device was brought to the field. The lead was placed in the appropriate position of the header of the device and were secured by the setscrews and confirmed by the tug test. The device and the leads were then placed in the pocket. Pocket was closed with a deep layer of running 2-0 Vicryl, superficial layer of running 4-0 Vicryl and skin with Steri-Strips that were covered with a rolled 4 x 4's and Tegaderm. The patient left the lab with the device programmed to chronic parameters. There were no complications. Implanted system is a DDD chamber [employer] Chuck Ayannah pacemaker Lead and device serial and model numbers are available in the chart documents provided by the device company ambulatory services representative procedure summary.
--- NOTE | 2021-11-19 14:00 | RAD_ITS ---
EXAM: XR CHEST, 1 VIEW CLINICAL INDICATION: rule out pneumothorax; s/p pacemaker on left TECHNIQUE: Frontal view of the chest. This report was created using [employer] report generation technology. COMPARISON: 11/10/2021 FINDINGS: LUNGS AND PLEURAL SPACES: Unremarkable. No consolidation or edema. No pneumothorax. No effusion. HEART: Unremarkable. Cardiac silhouette not enlarged. MEDIASTINUM: Central airways and mediastinal contour are unremarkable. BONES/JOINTS: Unremarkable. SOFT TISSUES: Unremarkable. TUBES, LINES AND DEVICES: Left chest pacer placement with leads overlying the right atrium and right ventricle. RAD/Chest 1 View (Portable) IMPRESSION: Left chest pacer placement with leads overlying the right atrium and right ventricle. No pneumothorax or other complication identified. Electronically Signed: Esteban Lorenzo MD at 0:34 EDT ,
[2021-11-20 02:29] VITALS: BP 153/89; PULSE 60; RESP 18; TEMP 36.8; O2SAT 97
[2021-11-20 03:03] VITALS: PULSE 61
[2021-11-20 05:55] LABS: Absolute Lymphocyte Count 1.45 X10^3/uL (0.83-4.51); Absolute Neutrophil Count 7.5 X10^3/uL (2.0-7.7); Basophil# 0.07 X10^3/uL; Basophil% 0.7 % (0-1); Eosinophil# 0.18 X10^3/uL; Eosinophils% 1.8 % (0-5); Hematocrit 41.6 % (40-54); Hemoglobin 13.9 g/dL (13.0-16.5); Lymphocyte # 1.45 X10^3/ul (0.83-4.51); Lymphocyte % 14.4 % (19-41); Mean Corp Hgb Conc 33.4 g/dL (32-36); Mean Corpuscular Hgb 30.6 pg (27.0-32.0); Mean Corpuscular Volume 91.6 fL (80-94); Mean Platelet Vol. 9.8 fl (6.2-12.0); Monocyte# 0.79 X10^3/uL; Monocyte% 7.9 % (0-10); NRBC Flagged by Analyzer 0 % (0-5); Neutrophil # 7.53 X10^3/uL (2.7-7.7); Neutrophil % 74.8 % (47-70); Platelet Count 168 K/mm3 (150-450); RBC Distribution Width CV 13.2 % (11.6-14.6); RBC Distribution Width SD 44.8 fl (35.1-43.9); Red Blood Count 4.54 M/mm3 (4.6-6.2); White Blood Count 10.1 K/mm3 (4.4-11.0)
--- NOTE | 2021-11-20 05:55 | RAD_ITS ---
INDICATION: Post permanant ICD/Pacemaker -- inspiration/expiration. Arms Down. Wet read to EXAMINATION/TECHNIQUE: X-RAY - XR Chest 3 Views COMPARISON: 11/19/2021 FINDINGS: Expiratory and inspiratory phases. LINES/DEVICES: Left chest pacemaker remains in similar position. LUNGS: No consolidation, edema or effusion. No pneumothorax. MEDIASTINUM AND CARDIOVASCULAR STRUCTURES: Cardiac silhouette not enlarged. Central airways and mediastinal contour are unremarkable. BONES AND SOFT TISSUES: Unremarkable. RAD/Chest 3 View IMPRESSION: No acute cardiopulmonary disease. Electronically Signed: Evelio Gaytan MD at 5:11 EDT ,
[2021-11-20 06:27] LABS: Anion Gap 6 (5-15); BUN 16 mg/dL (7-18); BUN/Creat Ratio 18.1 RATIO (10-20); Calcium,Total 8.7 mg/dL (8.5-10.1); Chloride 106 mmol/L (98-107); Creatinine, Serum 0.88 mg/dL (0.70-1.30); EST Glomerular Filtration Rate 93 mL/min (>60); Est Glom Filt Rate - Afr Amer 113 mL/min (>60); Estimated Creatinine Clearance 102.49 ml/min; Glucose 103 mg/dL (74-106); Potassium 3.8 mmol/L (3.5-5.1); Sodium Level 141 mmol/L (136-145)
[2021-11-20 06:58] VITALS: PULSE 60
[2021-11-20] MEDS: Acetaminophen 325 MG Tablet PO (08:04)
[2021-11-20 08:30] VITALS: BP 148/90; PULSE 67; RESP 18; TEMP 36.6; O2SAT 96
--- NOTE | 2021-11-20 09:05 | DCINST_ITS ---
Discharge Instructions Diet Discharge Diet: Low fat / Low cholesterol Activity Lifting Restrictions: Follow Post Pacemaker Instructions given by Dr. Rios and Christian Longoria RN Dressing / Incision Call your doctor if your incision/area has: - (Follow Post Pacemaker instructions given by Dr. Rios and Christian Longoria RN.) Call your doctor if you observe: Fever of 101 or Higher, Shortness of breath, Dizziness, Fainting spells, Chest pain, Increased palpitations (irregular heartbeat) and Uncontrolled pain Additional Dressing/Incision Instructions:: Follow Post Pacemaker instructions given by Dr. Rios and Christian Longoria RN Follow Up Care Please Follow Up With: Francisca Longoria When: 11/27/2021 at 1:00 PM Test Results: Test results from this visit will be discussed in further detail at your follow- up appointment, if applicable. Discharge Plan Admission Attending Provider: Talat Rios Primary Care Provider: Dc Glez Discharge Orders/Prescriptions Prescriptions: New metoprolol tartrate 25 mg tablet 25 mg PO BID Qty: 60 6RF Continued fludrocortisone 0.1 mg tablet 0.1 mg PO DAILY nitrofurantoin macrocrystal 100 mg capsule 100 mg PO .COMPLEX Qty: 6 0RF Rx Instructions: 100 mg orally take 1 cap by mouth twice daily for 3 days; must administer with a meal/food Held rivaroxaban 20 mg tablet 20 mg PO DAILY Hold Instructions: Resume on 11/27/21. If pacemaker / wound check stable. Rx Instructions: Hold after dose on 11/17/2021 for pacemaker placement Discontinued prednisone 20 mg tablet 60 mg PO DAILY PRN (Reason: Allergy Symptoms) famotidine [famotidine] 20 mg tablet 20 mg PO BID PRN (Reason: reflux) diphenhydramine HCl [Benadryl] 25 mg capsule 25 mg PO TID PRN (Reason: allergies) Referrals / Follow Up: Dc Mazariegos MD [Med Staff - Active Staff] - Dc Glez MD [Primary Care Provider] - Disposition Disposition (needs filled in before D/C Order can be placed): Home, Self Care
--- NOTE | 2021-11-20 09:14 | PCM.DC.SUM ---
Providers Date of Admission: 11/19/21 Date of Discharge: 11/20/21 Primary Care Physician: Dr. Dc Glez MD Reason For Visit: SSS, PAF Diagnosis Discharge Diagnosis (1) Sick sinus syndrome: Status: Acute Code(s): I49.5 - Sick sinus syndrome (2) Paroxysmal atrial fibrillation: Status: Chronic Code(s): I48.0 - Paroxysmal atrial fibrillation Medications at Discharge Home Medications nitrofurantoin macrocrystal 100 mg capsule 100 mg PO .COMPLEX #6 caps 11/18/21 fludrocortisone 0.1 mg tablet 0.1 mg PO DAILY hypotension 11/19/21 rivaroxaban 20 mg tablet 20 mg PO DAILY blood thinner 11/19/21 metoprolol tartrate 25 mg tablet 25 mg PO BID #60 tabs 11/20/21 Hospital Course Operations None Procedures - (Pacemaker) Summary of Care Provided Minutes Spent on Discharge: 60 Hospital Course: Is a 61-year-old white male who was brought to the hospital based upon diagnosis of sick sinus syndrome/paroxysmal atrial fibrillation for permanent pacemaker placement. He underwent permanent pacemaker placement on 11-19-[address] Rios of [facility]. He received a [employer] LIII [employer] MRI DR IS-1 dual-chamber pacemaker. His lower rate limit was set at 60 ppm with an upper rate limit at 130 ppm He was monitored overnight. He remains symptomatically and hemodynamically stable. He has follow-up laboratory studies, ECG, chest x-ray, and pacemaker evaluation appeared to be appropriate. On this day he was felt stable for release home for continued outpatient follow-up. Physical Exam Const alert and oriented x3 Orientation / Consciousness: awake HEENT HEENT Narrative: Occipital area: Laceration/sutures Head and Scalp: other Other Details: Occipital head laceration: Positive sutures: Healing well Eyes PERRL, EOMs intact bilaterally, conjunctivae normal and no scleral icterus Neck full ROM, supple and no JVD Carotids: normal carotid upstroke Chest Chest: left pectoral incision and other Left pectoral incision site: Surgical dressing: Clean and dry Resp normal respiratory effort and clear to auscultation bilaterally Cardio regular rate, regular rhythm, S1 normal heart sound and S2 normal heart sound GI normal to inspection, nondistended, normoactive bowel sounds Extremity no pedal edema Skin Skin Narrative: Occipital area: Laceration Psych mental status grossly normal Weight / BMI Weight Weight: 193 lb Body Mass Index (BMI) 24.7 ABG / Lab / Microbiology Data Result Diagrams: 11/20/21 05:30 11/20/21 05:30 Laboratory: Laboratory Results - last 24 hr 11/20/21 05:30: WBC 10.1, RBC 4.54 L, Hgb 13.9, Hct 41.6, MCV 91.6, MCH 30.6, MCHC 33.4, RDW Std Deviation 44.8 H, RDW Coeff of Donna 13.2, Plt Count 168, MPV 9.8, Immature Gran % (Auto) 0.400, Neut % (Auto) 74.8 H, Lymph % (Auto) 14.4 L, [place] % (Auto) 7.9, Eos % (Auto) 1.8, Baso % (Auto) 0.7, Absolute Neuts (auto) 7.5, Absolute Lymphs (auto) 1.45, Nucleated RBC % 0 11/20/21 05:30: Sodium 141, Potassium 3.8, Chloride 106, Carbon Dioxide 29.0, Anion Gap 6, BUN 16, Creatinine 0.88, Estim Creat Clear Calc 102.49, Est GFR (MDRD) Af Amer 113, Est GFR (MDRD) Non-Af 93, BUN/Creatinine Ratio 18.1, Glucose 103, Calcium 8.7 Radiography Diagnostic Testing: Radiology Impression Chest X-Ray 11/19/21 14:00 IMPRESSION: Left chest pacer placement with leads overlying the right atrium and right ventricle. No pneumothorax or other complication identified. Electronically Signed: Esteban Lorenzo MD at 0:34 EDT , Chest X-Ray 11/20/21 05:55 IMPRESSION: No acute cardiopulmonary disease. Electronically Signed: Evelio Gaytan MD at 5:11 EDT , D/C Instructions Discharge Diet: Low fat / Low cholesterol Call your doctor if your incision/area has: - (Follow Post Pacemaker instructions given by Dr. Rios and Christian Longoria, RN.) Call your doctor if you observe: Fever of 101 or Higher, Shortness of breath, Dizziness, Fainting spells, Chest pain, Increased palpitations (irregular heartbeat) and Uncontrolled pain Additional Dressing/Incision Instructions: Follow Post Pacemaker instructions given by Dr. Rios and Christian Longoria, RN Please Follow Up With: Francisca Longoria When: 11/27/2021 at 1:00 PM Meaningful Use Info Meaningful Use Diagnoses (Choose all that apply): None applicable Discharge Plan Admission Primary Reason for Your Visit: PPM Attending Provider: Talat Rios Primary Care Provider: Dc Glez Discharge Orders/Prescriptions Prescriptions: New metoprolol tartrate 25 mg tablet 25 mg PO BID Qty: 60 6RF Continued fludrocortisone 0.1 mg tablet 0.1 mg PO DAILY nitrofurantoin macrocrystal 100 mg capsule 100 mg PO .COMPLEX Qty: 6 0RF Rx Instructions: 100 mg orally take 1 cap by mouth twice daily for 3 days; must administer with a meal/food Held rivaroxaban 20 mg tablet 20 mg PO DAILY Hold Instructions: Resume on 11/27/21. If pacemaker / wound check stable. Rx Instructions: Hold after dose on 11/17/2021 for pacemaker placement Discontinued prednisone 20 mg tablet 60 mg PO DAILY PRN (Reason: Allergy Symptoms) famotidine [famotidine] 20 mg tablet 20 mg PO BID PRN (Reason: reflux) diphenhydramine HCl [Benadryl] 25 mg capsule 25 mg PO TID PRN (Reason: allergies) Referrals / Follow Up: Dc Mazariegos MD [Med Staff - Active Staff] - Dc Glez MD [Primary Care Provider] - Disposition Disposition (needs filled in before D/C Order can be placed): Home, Self Care
--- NOTE | 2021-11-20 11:27 | PHA.DC.MR ---
Pharmacy Service has performed discharge medication reconciliation for this patient. The patient's discharge medication list was reviewed for discrepancies and discrepancies were resolved. Home Medications nitrofurantoin macrocrystal 100 mg capsule 100 mg PO .COMPLEX #6 caps 11/18/21 fludrocortisone 0.1 mg tablet 0.1 mg PO DAILY hypotension 11/19/21 rivaroxaban 20 mg tablet 20 mg PO DAILY blood thinner 11/19/21 metoprolol tartrate 25 mg tablet 25 mg PO BID #60 tabs 11/20/21
== END 2021-11-20 09:14 | disposition home or self-care (01) ==
LOC: CLSP 11:25 → PCU 13:10
PROVIDERS: Internal Medicine Cardiovascular Disease; PCP Family Medicine; Visit Provider Internal Medicine Cardiovascular Disease
DX: Z95.810 Presence of automatic (implantable) cardiac defibrillator (principal); I48.0 Paroxysmal atrial fibrillation; Z86.718 Personal history of other venous thrombosis and embolism; Z79.01 Long term (current) use of anticoagulants
CPT/HCPCS: 33208; 36415; 71045; 71047; 80048; 81001; 85025; 93005; 99152; 99153; J7040; J7050; C1894

== ENCOUNTER 2022-02-06 09:43 | Emergency (ER) | payer OTHER, SELFPAY ==
[2022-02-06 09:44] VITALS: BP 142/71; PULSE 78; RESP 18; TEMP 36.2; O2SAT 96; BMI 26.2
--- NOTE | 2022-02-06 10:21 | EDS_ITS ---
HPI History of Present Illness Chief Complaint: Allergic Reaction Narrative Narrative: 61-year-old male presenting with allergic reaction. He states he has a history of that he does not know what it was caused by. It was previously presumed that he had allergic reaction to contrast dye. He was seen in the ER for this and was given Benadryl, Pepcid, Solu-Medrol. He states that nothing really worked until he received epinephrine. He states that today his tongue felt a little swollen. He denies shortness of breath, or abdominal pain. He does state his face feels a little swollen and he has a little bit of a rash. He actually states is improved since he woke up this morning. He does not have any trouble swallowing or breathing. Patient states that he ate a calzone, peanut butter and jelly sandwich, Risi cups yesterday but is not allergic to any of these things. The only thing new that he did was take a dose of Tylenol which is not previously allergic to. [facility] Medical History Abscess of right thigh Acute cystitis DAYNA (acute kidney injury) Anemia Asymptomatic premature ventricular contractions Atrial fibrillation with RVR Coagulopathy Elevated LFTs Factor V Leiden Fever with exanthematous rash Hematuria History of DVT (deep vein thrombosis) History of left heart catheterization (LHC) (~11/12/21) History of pulmonary embolism 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 knee joint FDC 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 amiodarone Paroxysmal atrial fibrillation Premature atrial contraction Presence of cardiac pacemaker Septic shock Severe sepsis Syncope and collapse Syncope and collapse Wide-complex tachycardia Home Medications fludrocortisone 0.1 mg tablet 0.1 mg PO DAILY hypotension 11/19/21 [History Last Taken Unknown] metoprolol tartrate 25 mg tablet 25 mg PO BID #60 tabs 11/20/21 [Rx Last Taken Unknown] rivaroxaban 20 mg tablet 20 mg PO DAILY blood thinner #90 tabs 12/07/21 [Rx Last Taken Unknown] epinephrine 0.3 mg/0.3 mL injection, auto-injector (EpiPen 2-Franklin) 0.3 mg (0.3 mL) IM Q10M PRN PRN anaphylaxis #2 ea 02/06/22 [Rx Last Taken Unknown] prednisone 50 mg tablet 50 mg PO DAILY 5 days #5 tabs 02/06/22 [Rx Last Taken Unknown] Allergy/AdvReac Type Severity Reaction Status Date / Time ciprofloxacin Allergy Unknown Rash Verified 11/18/21 08:19 ceftriaxone Allergy Rash Verified 11/18/21 09:26 Iodinated Contrast Media Allergy Angioedema Verified 11/14/21 15:06 [contrast dye - iodinated] linezolid Allergy Rash Verified 11/18/21 09:26 Sulfa (Sulfonamide Allergy Unknown Verified 11/14/21 10:19 Antibiotics) vancomycin Allergy Fever and Verified 11/14/21 10:19 skin rash Family History Mother Ulcerative colitis Grandfather No problems noted. 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 pets and animals: Yes (cat) Smoking Status: Never smoker alcohol intake: current details: occasional substance use type: does not use caffeine: No ROS ROS ED Constitutional Constitutional ED: Denies chills, fever(s) or sweats Eyes Eyes: Denies blurry vision or change in vision ENT ENT ED: Reports sore throat and other Details: Tongue swelling ; Denies ear pain Cardiovascular Cardiovascular: Denies chest pain, palpitations or racing heartbeat Respiratory/Chest Respiratory/Chest: Denies cough, dyspnea or sputum Gastrointestinal Gastrointestinal: Denies abdominal pain, constipation, diarrhea, nausea or vomiting Genitourinary Genitourinary ED: Denies dysuria, hematuria or urinary frequency Musculoskeletal Musculoskeletal: Denies arthralgias, myalgias or neck pain Integumentary Reports rash; Denies abscess or Abrasions Neurologic Neurologic: Denies headache(s), paresthesias or weakness Psychiatric Psychiatric: Denies anxiety, depression, suicidal ideation or suicidal thoughts Endocrine Endocrinology: Denies polydipsia or polyuria EXAM Physical Exam Const Vital Signs: 02/06/22 09:44 02/06/22 12:34 Temperature 97.2 F L Temperature Source Temporal Pulse Rate 78 72 Respiratory Rate 18 13 Blood Pressure 142/71 H 112/84 H Blood Pressure Mean 94 93 Pulse Ox 96 93 Oxygen Delivery Method Room Air Room Air Positive well nourished General Appearance ED: NAD HEENT Reports moist mucous membranes Eyes PERRL and EOMs intact bilaterally Chest Wall inspection of chest normal and palpation of chest normal Resp normal respiratory effort and clear to auscultation bilaterally Auscultation: Negative for rales, rhonchi or wheezes Cardio regular rate and regular rhythm GI normal to inspection, nondistended, normoactive bowel sounds Back/Spine no CVA tenderness Neuro oriented x3 and CN's II-XII intact bilaterally Sensorium / Orientation: alert Motor Exam: strength 5/5 throughout Psych mental status grossly normal Skin Skin Narrative: Maculopapular rash noted to the face. Mild edema. Rashes: rashes noted MDM MDM MDM Narrative Medical decision making narrative: It is unclear what the source of the patient's allergic reaction is. Patient treated with Solu-Medrol 125 mg, Benadryl 50 mg, Pepcid 20 mg IV. 0.2 mg epinephrine given IM. Patient did not meet criteria for anaphylaxis but states that his symptoms only resolved last time after getting epinephrine. He is reevaluated at 12:20 PM and is doing well. He states his symptoms are improving. We will continue to monitor. Patient reevaluated at 2:45 PM. He is doing well. I feel at this time he can be discharged home. I will put him on a burst of prednisone and given an EpiPen just in case. He is return if he has to use the EpiPen. Patient will follow-up with his PCP. Impression: 1. Allergic reaction Lab Data Attestation: I reviewed the patient's lab results. Discharge Plan Triage Chief Complaint: Allergic Reaction ED Provider: Sukhwinder Rashid Dx/Rx/DC Orders Instructions: ED General Allergic Reactions Prescriptions: New prednisone 50 mg tablet 50 mg PO DAILY 5 Days Qty: 5 0RF epinephrine [EpiPen 2-Franklin] 0.3 mg/0.3 mL auto-injector 0.3 mg IM Q10M PRN PRN (Reason: anaphylaxis) Qty: 2 0RF Rx Instructions: for 2 doses No Action fludrocortisone 0.1 mg tablet 0.1 mg PO DAILY metoprolol tartrate 25 mg tablet 25 mg PO BID Qty: 60 6RF rivaroxaban 20 mg tablet 20 mg PO DAILY Qty: 90 3RF Hold Instructions: Resume on 11/27/21. If pacemaker / wound check stable. Rx Instructions: Hold after dose on 11/17/2021 for pacemaker placement Primary Care Provider: Dc Glez Referrals: Dc Glez MD [Primary Care Provider] - Disposition Disposition: Home, Self Care
[2022-02-06] MEDS: Epi Pen (EQUIV) 0.3 MG Syringe IM (10:28)
[2022-02-06] MEDS: DiphenhydrAMINE 50 MG/ML Syringe IV (10:28)
[2022-02-06] MEDS: MethylPREDNISolone 125 MG/2 ML Vial IV (10:29)
[2022-02-06] MEDS: Famotidine 200 MG/20 ML MDV 20 MG in 0.9% Normal Saline (Pres. free 8 ML 300 MG IV (11:14)
[2022-02-06 12:34] VITALS: BP 112/84; PULSE 72; RESP 13; O2SAT 93
[2022-02-06 13:00] VITALS: RESP 16
[2022-02-06 14:00] VITALS: BP 112/76
[2022-02-06 15:17] VITALS: RESP 18
== END 2022-02-06 15:17 | disposition home or self-care (01) ==
PROVIDERS: Emergency Provider Student in an Organized Health Care Education/Training Program; PCP Family Medicine; Visit Provider Student in an Organized Health Care Education/Training Program
DX: T78.40XA Allergy, unspecified, initial encounter (principal); Z79.52 Long term (current) use of systemic steroids; X58.XXXA Exposure to other specified factors, initial encounter
CPT/HCPCS: 96372; 96374; 96375; 99283; J7030; A4216; J3490

== ENCOUNTER → 2022-05-20 | Outpatient (CLI) | payer OTHER, SELFPAY ==
[2022-05-20 15:27] LABS: Absolute Lymphocyte Count 1.77 X10^3/uL (0.83-4.51); Absolute Neutrophil Count 4.3 X10^3/uL (2.0-7.7); Basophil# 0.08 X10^3/uL; Basophil% 1.2 % (0-1); Eosinophils% 1.5 % (0-5); Hematocrit 53.4 % (40-54); Hemoglobin 17.1 g/dL (13.0-16.5); Lymphocyte # 1.77 X10^3/ul (0.83-4.51); Lymphocyte % 25.8 % (19-41); Mean Corpuscular Volume 93.7 fL (80-94); Mean Platelet Vol. 11.5 fl (6.2-12.0); Monocyte# 0.55 X10^3/uL; NRBC Flagged by Analyzer 0 % (0-5); Neutrophil # 4.34 X10^3/uL (2.7-7.7); Neutrophil % 63.4 % (47-70); Platelet Count 212 K/mm3 (150-450); RBC Distribution Width SD 44.7 fl (35.1-43.9); White Blood Count 6.9 K/mm3 (4.4-11.0)
[2022-05-20 16:20] LABS: Anion Gap 5 (5-15); BUN 11 mg/dL (7-18); BUN/Creat Ratio 11.3 RATIO (10-20); Calcium,Total 8.6 mg/dL (8.5-10.1); Chloride 106 mmol/L (98-107); Creatinine, Serum 0.97 mg/dL (0.70-1.30); EST Glomerular Filtration Rate 83 mL/min (>60); Est Glom Filt Rate - Afr Amer 101 mL/min (>60); Glucose 82 mg/dL (74-106); Potassium 4.7 mmol/L (3.5-5.1); Sodium Level 141 mmol/L (136-145); Thyroid Stim Hormone (TSH) 1.86 uIU/mL (0.358-3.74)
== END | disposition home or self-care (01) ==
PROVIDERS: PCP Family Medicine; Referring Provider Family Medicine; Visit Provider Family Medicine
DX: R42 Dizziness and giddiness (principal)
CPT/HCPCS: 36415; 80048; 84443; 85025

== ENCOUNTER 2022-06-17 10:30 | Outpatient (RCR) | payer OTHER, SELFPAY ==
--- NOTE | 2022-06-02 13:52 | HP.PTEVAL ---
Patient's Visit Information HUNG LAWSON is a 61 year old M referred to Physical Therapy by Dr. Dc Glez MD with a diagnosis of imbalance and dizzyness. Date of Evaluation: 06/02/22 Physical Therapist: DIMITRY BryantT, OCS, CSCS - Visit Plan Frequency: 2x /Week Duration: 2-4 Weeks Plan: 2x/week x 2-4 weeks for teaching home based LE adn postural strength program(rows, pot stirs, pulkl downs, bridges, inchworms, squats, RDL, clamshells, step ups) and work to I with pics and progressions. given today gastroc, HS adn quad stretching with pics. - Subjective Dr. Glez sent him for dizzyness. Also passes out. 2018 first pass out. Over the years has had issues and taken blood pressure meds and to keep heart rate up. passed out at home in December and hospital for heart cath. heart cath was good. Got a pacemaker the next week and has not passed out since. Does get lightheaded feeling at times bending, kneeling, getting up form chair. Quick sensation upon standing. No problems lying down or in bed. balance feels Ok in between these episodes outside of first standing up. No spinning. , maybe once sitting in recliner chair when he was drunk. Has been off work since October due to pacemaker and spine surgeon suggested no work due to unpredictable nature adn applied for medical disability. 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 Spends day doing housework and putz around outside. Mows yard. Walks when it is nice. Sleep is OK. basic ADLS are OK. Used to pass out 2x/month before pacemaker, now none since. - Objective Walks I back to PT easily, transfers I bed and chair, sitting up gives lightheaded feeling, not lying down. Steps reciprocal without rail. cervical aROm WFL as is UE AROM. LE AROM WFL, max tightness in HS, quads and gastroc. reflexes 2/3 patella and achilles. sensation LE WNL to gross light touch. strength ankles 3+ r eversion otherwise 4- in ankles, 4- in knees and 3+ hip abd and ext and 4 hip flexion. coordination to reciprocal toe tap is good. - B hallpike eddie. - roll test. Oculomotor is unremarkable today: - skew eye deviation. - head thrust. - oculkar tilt. no nystagmus with gaze or head shake. normal pursuit and saccades and VOR. DVA is 3 lines different form SVA. Consistently patient get slight transient lightheadedness upon sitting up or arising from bending over, otherwise has some weakness in legs and sedentary lifestyle. looks good otherwise. - Balance/Special Test Scores Functional Gait Assessment Score: 28 % Disability: 6.6700 CATSIB Score (Max score 120 seconds): 120 Lower Extremity Functional Score: 46 - Goals Goal 1:: I appropriate HEp for LE and postural strength to limit future problems Goal Time Frame: 2-4 Weeks Goal 2:: Pt feel 50% better overall mobility Goal Time Frame: 2-4 Weeks - Rehabilitation Potential Physical Therapy Diagnosis: Weakness in legs and likely ortho hypotension like symptoms. Rehabilitation Potential: Fair - Anticipated Interventions Patient/Client Instruction: Educate patient on: Condition, Plan of Care For the Purpose of:: To improve nutrient delivery to tissue, To increase tolerance to activity/condition/position Therapeutic Exercise to Include: Strength training For the Purpose of:: To increase oxygenation perfusion, To improve muscle performance and motor function Thank you for the opportunity to evaluate your patient. For Medicare and Medicare HMO plans, please review the plan of care and approve it. It will need to be FAXED BACK to us at [phone] for Medicare purposes. For Medicare only, by signing this I certify the plan of care. Please let me know if there are questions or concerns regarding this plan of care. Physician Signature: Date:
--- NOTE | 2022-06-17 11:13 | HP.PTDCSUM ---
It has been my pleasure to treat HUNG LAWSON referred by Dr. Dc Glez MD, with the diagnosis of imbalance and dizzyness for a total of 4 visit(s). Discharge Date: 06/17/22 Please see the following information for a summary of their discharge status. Subjective: Legs feel a little stronger. Not sure much difference is made yet. has home exercises to get him stronger. Dizzyness(lightheadedness) one time while sitting in chair without moving this week. No passing out. Working with doctors on this. Working with phlebotomy specialist. % Improvement: 15 Objective/Function: FGA +1. VOr today without symptoms. Goal 1:: I appropriate HEp for LE and postural strength to limit future problems Goal Progress: Goal Met Goal 2:: Pt feel 50% better overall mobility Goal Progress: 15% Plan: d/c Discharge Comments: Will continue HEP. If there are questions or concerns regarding this patient's physical therapy, please feel free to call me at [phone]. Thank you for the referral of this patient. Sincerely, Dhruv Moscoso, DPT, OCS, CSCS Balance/Gait/Functional tests - Balance/Special Test Scores Functional Gait Assessment Score: 29 % Disability: 3.3400 CATSIB Score (Max score 120 seconds): 120 Lower Extremity Functional Score: 46
== END 2022-06-17 13:10 | disposition home or self-care (01) ==
LOC: PT 10:30
PROVIDERS: PCP Family Medicine; Referring Provider Family Medicine; Visit Provider Family Medicine
DX: R26.81 Unsteadiness on feet (principal); R42 Dizziness and giddiness
CPT/HCPCS: 97110; 97162

== ENCOUNTER 2022-09-18 09:55 | Emergency (ER) | payer OTHER, SELFPAY ==
[2022-09-18 09:56] VITALS: BP 136/80; PULSE 127; RESP 18; TEMP 36.6; O2SAT 98
[2022-09-18 10:08] VITALS: BMI 29.4
--- NOTE | 2022-09-18 10:16 | EDS_ITS ---
HPI History of Present Illness Chief Complaint: Allergic Reaction Informant: patient Narrative Narrative: Patient presents secondary to allergic reaction. He woke this morning with facial and tongue swelling pain around 930. He presents here at 10 AM. He states his tongue swelling is significantly improving. Patient states he has had some head congestion recently after mowing. He took 2 tabs of allergy and sinus headache medicine at 10 PM last evening before bed. This has acetaminophen, diphenhydramine, and phenylephrine in it. Patient states his eyelids are swollen and itchy. He has a diffuse rash over his trunk but does not itch. He denies throat tightness or shortness of breath. 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 Paroxysmal atrial fibrillation Premature atrial contraction Presence of cardiac pacemaker Septic shock Severe sepsis Syncope and collapse Syncope and collapse Wide-complex tachycardia Home Medications epinephrine 0.3 mg/0.3 mL injection, auto-injector (EpiPen 2-Franklin) 0.3 mg (0.3 mL) IM Q10M PRN PRN anaphylaxis #2 ea 02/06/22 [Rx Last Taken Unknown] prednisone 50 mg tablet 50 mg PO DAILY 5 days #5 tabs 02/06/22 [Rx Last Taken Unknown] rivaroxaban 20 mg tablet 20 mg PO DAILY blood thinner #90 tabs 06/29/22 [Rx Last Taken Unknown] fludrocortisone 0.1 mg tablet 0.1 mg PO DAILY hypotension #90 tabs 07/13/22 [Rx Last Taken Unknown] metoprolol tartrate 50 mg tablet 50 mg PO BID #180 tabs 08/13/22 [Rx Last Taken Unknown] prednisone 20 mg tablet 40 mg (2 x 20 mg) PO DAILY #8 tabs 09/18/22 [Rx Last Taken Unknown] Allergy/AdvReac Type Severity Reaction Status Date / Time ciprofloxacin Allergy Unknown Rash Verified 09/18/22 09:56 ceftriaxone Allergy Rash Verified 09/18/22 09:56 Iodinated Contrast Media Allergy Angioedema Verified 09/18/22 09:56 [contrast dye - iodinated] linezolid Allergy Rash Verified 09/18/22 09:56 Sulfa (Sulfonamide Allergy Unknown Verified 09/18/22 09:56 Antibiotics) vancomycin Allergy Fever and Verified 09/18/22 09:56 skin rash Family History Mother Ulcerative colitis Grandfather No problems noted. 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 pets and animals: Yes (cat) Smoking Status: Never smoker alcohol intake: current details: occasional substance use type: does not use caffeine: No ROS ROS ED Constitutional Constitutional ED: Denies chills or fever(s) Eyes Eyes: Reports other Details: Eyelid edema ; Denies change in vision or discharge from eye(s) ENT ENT ED: Denies discharge from eye(s), rhinorrhea or sore throat Cardiovascular Cardiovascular: Reports racing heartbeat; Denies chest pain or palpitations Respiratory/Chest Respiratory/Chest: Reports cough and other Details: Head congestion ; Denies dyspnea Gastrointestinal Gastrointestinal: Denies abdominal pain, nausea or vomiting Musculoskeletal Musculoskeletal: Denies back pain or extremity pain Integumentary Reports rash; Denies Abrasions Neurologic Neurologic: Denies headache(s) or weakness Psychiatric Psychiatric: Denies anxiety or depression Allergic/Immunologic Allergic/Immunologic ED: Denies lip swelling or urticaria EXAM Physical Exam Const Vital Signs: 09/18/22 09:56 09/18/22 11:19 Temperature 97.8 F Temperature Source Temporal Pulse Rate 127 H 105 H Respiratory Rate 18 20 H Blood Pressure 136/80 H 115/85 H Blood Pressure Mean 98 95 Pulse Ox 98 95 Oxygen Delivery Method Room Air Room Air Positive well nourished and well developed Constitutional Narrative: Mild facial edema and erythema. Speaking with a strong voice and tolerating secretions well. No significant tongue edema noted at this time. General Appearance ED: well developed HEENT Reports normocephalic and head/scalp atraumatic Eyes PERRL and EOMs intact bilaterally Neck supple Chest Wall palpation of chest normal Resp normal respiratory effort and clear to auscultation bilaterally Cardio Rate: tachycardic GI non-tender Palpation: soft Extremity normal to inspection Neuro oriented x3 and no sensory deficits noted Sensorium / Orientation: alert Motor Exam: strength 5/5 throughout Psych mental status grossly normal Skin Skin Narrative: Diffuse, flat erythematous rash over the trunk. No significant lesions noted on the extremities. MDM MDM MDM Narrative Medical decision making narrative: Patient placed on winding inspector. EKG obtained. Patient given Pepcid and Solu-Medrol. He was not given Benadryl at this time as this was one of the ingredients in the medication he took last night and reacted to. He is not sure if he has had Benadryl previously. EKG Initial EKG: Attestation: I personally reviewed and interpreted this EKG as follows: Interpretation: Atrial Flutter (Atrial flutter RVR with minimal 1/[address] depression in the lateral precordial leads.) Treatment and Re-Evaluation :: Patient was observed for a period of 2 hours. He has had no symptoms of recurrent infection. He remains to have a very slight rash over his chest. He will be given a 4-day burst of steroids at home. Patient does have another EpiPen at home that he can use. Return instructions provided. Discharge Plan Triage Chief Complaint: Allergic Reaction ED Provider: Caryl Vann Dx/Rx/DC Orders Clinical Impression: Allergic drug reaction Instructions: ED ADVERSE DRUG REACTION Allergic Prescriptions: New prednisone 20 mg tablet 40 mg PO DAILY Qty: 8 0RF No Action prednisone 50 mg tablet 50 mg PO DAILY 5 Days Qty: 5 0RF epinephrine [EpiPen 2-[place]lin] 0.3 mg/0.3 mL auto-injector 0.3 mg IM Q10M PRN PRN (Reason: anaphylaxis) Qty: 2 0RF Rx Instructions: for 2 doses rivaroxaban 20 mg tablet 20 mg PO DAILY Qty: 90 3RF Hold Instructions: Resume on 11/27/21. If pacemaker / wound check stable. Rx Instructions: Hold after dose on 11/17/2021 for pacemaker placement fludrocortisone 0.1 mg tablet 0.1 mg PO DAILY Qty: 90 3RF metoprolol tartrate 50 mg tablet 50 mg PO BID Qty: 180 3RF Primary Care Provider: Dc Glez Referrals: Dc Glez MD [Primary Care Provider] - 3-5 Days Disposition Disposition: Home, Self Care
--- NOTE | 2022-09-18 10:16 | EKG12_ITS ---
Test Reason : ALLERGIC REACTION Blood Pressure : / mmHG Vent. Rate : 132 BPM Atrial Rate : 000 BPM P-R Int : 000 ms QRS Dur : 084 ms QT Int : 284 ms P-R-T Axes : 000 -10 218 degrees QTc Int : 420 ms Atrial flutter with RVR ST & T wave abnormality, consider anterolateral ischemia Abnormal ECG Confirmed by NIRMAL CONDON, DRE ([id number]), general expeditor ANDREI NAVARRO ([id number]) on 09/23/2022 8:29:08 AM Referred By: BRIDGETTE Confirmed By:VANDANA KINNEY MD
--- NOTE | 2022-09-18 10:35 | ED.RN ---
CALLED PHARMACY ABOUT PEPCID AND SOLUMEDROL-STILL NOT IN ER
[2022-09-18] MEDS: MethylPREDNISolone 125 MG/2 ML Vial IV (10:49)
[2022-09-18] MEDS: Famotidine 200 MG/20 ML MDV 20 MG in 0.9% Normal Saline (Pres. free 8 ML 300 MG IV (10:49)
[2022-09-18] MEDS: 0.9% Normal Saline 1,000 ML 150 ML IV (10:49)
[2022-09-18 11:19] VITALS: BP 115/85; PULSE 105; RESP 20; O2SAT 95
[2022-09-18 12:31] VITALS: BP 124/66; PULSE 100; RESP 18; O2SAT 98
== END 2022-09-18 12:32 | disposition home or self-care (01) ==
PROVIDERS: Emergency Provider Emergency Medicine; PCP Family Medicine; Visit Provider Emergency Medicine
DX: T50.995A Adverse effect of other drugs, medicaments and biological substances, initial encounter (principal); Z86.718 Personal history of other venous thrombosis and embolism; Z86.711 Personal history of pulmonary embolism; Z95.0 Presence of cardiac pacemaker
CPT/HCPCS: 93005; 96365; 96375; 99284; A4216; J3490

== ENCOUNTER → 2022-11-11 | Outpatient (CLI) | payer OTHER, SELFPAY ==
[2022-11-11 18:26] LABS: Absolute Lymphocyte Count 1.03 X10^3/uL (0.83-4.51); Absolute Neutrophil Count 4.2 X10^3/uL (2.0-7.7); Basophil# 0.06 X10^3/uL; Eosinophil# 0.12 X10^3/uL; Hematocrit 52.8 % (40-54); Hemoglobin 16.9 g/dL (13.0-16.5); Lymphocyte # 1.03 X10^3/ul (0.83-4.51); Lymphocyte % 17.3 % (19-41); Mean Corpuscular Volume 93.6 fL (80-94); Mean Platelet Vol. 11.4 fl (6.2-12.0); Monocyte# 0.56 X10^3/uL; Monocyte% 9.4 % (0-10); NRBC Flagged by Analyzer 0 % (0-5); Neutrophil # 4.16 X10^3/uL (2.7-7.7); Neutrophil % 70.1 % (47-70); Platelet Count 201 K/mm3 (150-450); RBC Distribution Width SD 45.1 fl (35.1-43.9); Red Blood Count 5.64 M/mm3 (4.6-6.2); White Blood Count 5.9 K/mm3 (4.4-11.0)
== END | disposition home or self-care (01) ==
LOC: MFPLAB 15:49
PROVIDERS: PCP Family Medicine; Visit Provider Family Medicine
DX: R31.9 Hematuria, unspecified (principal)
CPT/HCPCS: 36415; 85025

== ENCOUNTER → 2022-11-17 | Outpatient (CLI) | payer OTHER, SELFPAY ==
[2022-11-17 18:23] LABS: Anion Gap 4 (5-15); BUN 20 mg/dL (7-18); BUN/Creat Ratio 18.3 RATIO (10-20); Calcium,Total 9.6 mg/dL (8.5-10.1); Chloride 106 mmol/L (98-107); Cholesterol 212 mg/dL (200); Creatinine, Serum 1.09 mg/dL (0.70-1.30); EST Glomerular Filtration Rate 73 mL/min (>60); Est Glom Filt Rate - Afr Amer 88 mL/min (>60); Glucose 79 mg/dL (74-106); High Density Lipoprotein 38 mg/dL; Potassium 4.7 mmol/L (3.5-5.1); Sodium Level 138 mmol/L (136-145); Triglycerides 242 mg/dL; Very Low Density Lipoprotein 48 mg/dL (5-40)
== END | disposition home or self-care (01) ==
LOC: MFPLAB 14:20
PROVIDERS: PCP Family Medicine; Visit Provider Family Medicine
DX: R00.0 Tachycardia, unspecified (principal)
CPT/HCPCS: 36415; 80048; 80061

== ENCOUNTER 2022-12-13 10:18 | Day surgery (SDC) | payer OTHER, SELFPAY ==
--- NOTE | 2022-11-23 09:00 | PCM.HP.BLA ---
History and Physical Date of Admission: 12/13/22 HUNG LAWSON, is a 62 year old white male who presents to the cardiac laborer [facility] today for a cardioversion. He has a history of syncope, PACs/PVCs, atrial fibrillation, wide-complex tachycardia with differential of a ventricular rhythm versus atrial fibrillation with aberrancy, and factor V Leiden deficiency with previous thromboembolic events. Patient was admitted and evaluated at [facility] in October 2021 for symptomatic bradycardia. Echocardiogram on 11/10/2021 showed ejection fraction 60%, mildly enlarged left atrium, mild mitral valve insufficiency, and RVSP of 36 mmHg. Heart catheterization on 11/12/2021 showed single-vessel mild coronary artery disease of the LAD. He underwent pacemaker placement on 11/19/[address] Rios for sick sinus syndrome. He denies chest, arm, jaw, or neck discomfort. He acknowledges palpitations that he describes as fast and fluttery. He denies bilateral lower extremity edema. He denies claudication. He states shortness of breath with activity such as going up the steps or exertion such as moving furniture. He denies shortness of breath at rest, orthopnea, or PND. He denies chronic cough. He denies significant, sudden weight gain. He states two episodes of dizziness. He denies lightheadedness, near-syncope, or syncope. He denies blood in urine, blood in stool, or epistaxis. He denies fever or chills. He denies myalgia. He states fatigue with activity. His exercise level has remained stable. 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 pets and animals: Yes (cat) Smoking Status: Never smoker alcohol intake: current details: occasional substance use type: does not use caffeine: No ROS Const Const: Negative for fatigue, weakness, headache(s), daytime sleepiness or difficulty sleeping Eyes Eyes: Negative for change in vision ENT ENT: Negative for headache(s), dizziness or Nosebleed/epistaxis Cardio Chest Pain: No Palpitations: Yes feels like its: fast and other (fluttery) Edema: None Muscle aches with walking: None Resp Respiratory: Positive for SOB with activity; Negative for SOB at rest, SOB orthopnea\SOB lying down or Cough GI GI: Negative nausea, vomiting or heartburn : Negative for hematuria or frequent nighttime urination/ nocturia Musc Musc: Negative for muscle aches/ myalgia Skin Skin: Negative non-healing lesions or rash Neuro Neuro: Negative for dizziness, lightheadedness, near syncope, headache(s) or weakness Endo Endo: Negative for fatigue Allergy Allergy/Immunology: Negative for rash Cardiology Exam Const Appearance: cooperative, healthy appearing, comfortable and no acute distress Nutritional Appearance: well nourished and overweight Orientation: alert, awake and oriented x3 Head Head: normal to inspection Ears: hearing grossly normal bilaterally Nose: external nose normal Face and Sinus: face symmetric Mouth: moist mucous membranes Eyes General: appearance normal, both eyes and all related structures Eyelids: eyelids normal EOM: EOM intact bilaterally Neck Neck: normal visual inspection and no JVD Carotids: normal carotid upstroke Chest Chest inspection: normal inspection of the chest, symmetric chest movement and normal respiratory effort; Negative cough Auscultation: Bilateral: Clear to Auscultation Cardio Rate: regular rate Rhythm: regular rhythm Heart sounds: S1 normal and S2 normal; Negative rub, gallop or murmur GI GI: normal to inspection Neuro General: patient alert, patient awake, patient oriented x3 and CN's II-XI intact bilaterally Skin Skin: no rashes or lesions noted Extremities Pulses: Normal: Right Posterior Tibial Pulse, Left Posterior Tibial Pulse, Right Radial Pulse and Left Radial Pulse Lower Extremity Edema: None: Bilateral Psych Psychological: normal affect Supplemental Info Supplemental Information Echocardiogram from 11/10/2021: Interpretation Summary Left ventricular systolic function is normal. The estimated ejection fraction is 60 %. The left atrium is mildly enlarged. Mild (1+) mitral valve insufficiency. Mild tricuspid valve insufficiency. Trivial pulmonic valve insufficiency. Right ventricular systolic pressure estimated to be 36 mmHg. Diastolic function is indeterminate. Echocardiogram from 07/10/2020: Interpretation Summary The study was technically difficult. Left ventricular systolic function is normal. The estimated ejection fraction is 65 %. The left atrium is mildly enlarged. The right atrium is mildly enlarged. Trivial mitral valve insufficiency. Mild tricuspid valve insufficiency. Right ventricular systolic pressure estimated to be 30 mmHg. Unable to assess diastolic dysfunction. Echocardiogram from 12/12/2017: Interpretation Summary Left ventricular systolic function is normal. The estimated ejection fraction is 70 %. The left atrium is mildly enlarged. Trivial mitral valve insufficiency. Trivial tricuspid valve insufficiency. Trivial pulmonic valve insufficiency. Right ventricular systolic pressure estimated to be 30 mmHg. No evidence for diastolic dysfunction. Bubble contrast study negative for right to left interatrial shunt. Heart catheterization from 11/12/2021: CONCLUSIONS Elevated Left Ventricular End Diastolic Pressure Single vessel CAD of the LAD: mild luminal irregularities RECOMMENDATIONS Risk factor modification Medical therapy CORONARY ANGIOGRAPHY DOMINANCE: Co- Dominant LEFT HEART ASSESSMENT Left Ventricular Ejection Fraction: Not assessed Elevated Left Ventricular End Diastolic Pressure LVEDP: 21 mmHg LEFT MAIN: Angiographically normal LEFT ANTERIOR DESCENDING ARTERY: MID LAD: Mild luminal irregularities (s/p SP) CIRCUMFLEX ARTERY: Angiographically normal RIGHT CORONARY ARTERY: Angiographically normal COMPLICATIONS No Complications Stress Test Report Date: 11-13-2021 Procedure: Exercise tolerance test Indications: Cardiac dysrhythmia; syncope Consent: Per the patient Procedure: The patient exercised on a Modified Avinash protocol for 6 minutes completing Stage II achieving a peak heart rate of 122 bpm (76% predicted maximal heart rate) with a peak blood pressure 164/80 mmHg and a peak MET capacity of approximately 3 MET's. The baseline ECG demonstrated sinus bradycardia; nonspecific ST/T wave abnormality. The peak exercise ECG demonstrated somatic/motion artifact with continued nonspecific ST/T wave abnormality at the heart rate achieved. There was a rare PVC during exercise/recovery. The functional capacity was considered decreased. The patient had no complaint of chest discomfort during exercise or recovery. The examination was discontinued secondary to dyspnea and fatigue. Impression: 1. Technically inadequate (percent predicted maximal heart rate less than 85%) exercise tolerance test 2. Peak exercise ECG with continued somatic/motion artifact with continued nonspecific ST/T wave abnormality at the heart rate achieved 3. There was a rare PVC during exercise and recovery 24-hour Holter monitor from August 2021: Minimum heart rate 30 bpm at 11:03 AM. Average heart rate 43 beats minute. Maximal heart rate 66 bpm at 7:18 AM. Ventricular ectopy 0.0%. Supraventricular ectopy 0.1%. Atrial fibrillation 0.0%. Longest R to R interval 2.1 seconds. The patient kept a 24-hour diary and noted 1 episode of chest pain/palpitations which did not correlate with the scan. Assessment and Plan Assessment and Plan (1) Paroxysmal atrial fibrillation: Status: Chronic Plan: Patient has a history of atrial fibrillation/flutter. His echocardiogram in October 2021 showed an ejection fraction of 60% and mildly enlarged left atrium. Twelve-lead ECG on 10/15/2022 shows electronic paced rhythm with underlying atrial fibrillation. On 08/13/2022 he was noted be in atrial flutter and appears to have remained in it since. Would like to proceed with cardioversion.
[2022-12-10 08:17] VITALS: BMI 29.0
--- NOTE | 2022-12-13 12:10 | PCM.OP.PRO ---
Procedure Report Date of Procedure: 12/13/22 DC cardioversion. 62-year-old man with a history of atrial fibrillation status post pacemaker placement who is in persistent atrial fibrillation. Patient presents for DC cardioversion. Patient has been on anticoagulation continuously for at least 3 to 4 weeks. The patient was seen by Dr. Wilson of the critical care division. Informed consent was obtained. Anterior-posterior pads were applied. The patient was administered 80 mg of intravenous propofol. 200 J of biphasic DC cardioversion energy were applied with prompt reversal to sinus rhythm. Patient tolerated the procedure well. Conclusion: Successful DC cardioversion from atrial fibrillation to sinus rhythm. Continue current medical therapy as per office protocol.
--- NOTE | 2022-12-13 14:06 | PRO.PCM_ITS ---
Procedure Report Date of Procedure: 12/13/22 CONSCIOUS SEDATION REPORT BRIEF HISTORY OF PRESENT ILLNESS: The patient is a 62-year-old male who presented to [facility] for an elective outpatient cardioversion due to underlying atrial fibrillation. The patient reports no PO intake since midnight, but is currently therapeutic on anticoagulation. The patient does not have a history of ROSA formally, but does snore on a routine basis. The patient reports no history of smoking or COPD. The patient denies any recent constitutional symptoms such as fevers, chills, nausea or vomiting. The patient denies previous applicable anesthetic complications. Patient's last known ejection fraction was 60%. Patient has not had a previous cardioversion PHYSICAL EXAMINATION: VITAL SIGNS: Reviewed and were acceptable. GENERAL: The patient is a male, in no apparent distress, speaking in full sentences. HEENT: Normocephalic, atraumatic. Mucous membranes are moist and pink. Good mouth opening noted. Trachea is midline. Good neck mobility. MP I CHEST: S1, S2 irregularly irregular. No murmurs, rubs or gallops were noted. LUNGS: Clear to auscultation bilaterally without appreciable wheezes, rales or rhonchi. ABDOMEN: Soft, nontender, nondistended. Positive bowel sounds. EXTREMITIES: There is no clubbing, cyanosis or edema. ASA Class: II DESCRIPTION OF PROCEDURE: After confirmation of informed consent, the patient's anesthesia plan was reviewed in detail. Propofol was chosen. Risks and benefits were reviewed and the patient agreed to proceed. At 12:01 PM, the patient was given 40 mg of propofol. The patient required a total of 80 mg of propofol throughout the procedure to achieve appropriate sedation. The patient achieved an appropriate level of sedation and received 1 attempt synchronized cardioversion, at [address] Cano at the bedside. This was successful in achieving normal sinus rhythm. The patient was monitored until 12:15 PM, at which time the patient reached their baseline mental status and function. The patient tolerated the procedure well. COMPLICATIONS: None ESTIMATED BLOOD LOSS: None RECOMMENDATIONS: Okay to recover in usual fashion. Procedures Pulmonary [id number]: [id number] Con Sedation
== END 2022-12-13 13:07 | disposition home or self-care (01) ==
LOC: CLSP 10:19
PROVIDERS: PCP Family Medicine; Referring Provider Internal Medicine Cardiovascular Disease; Visit Provider Internal Medicine Cardiovascular Disease
DX: I48.19 Other persistent atrial fibrillation (principal); I48.0 Paroxysmal atrial fibrillation; Z79.899 Other long term (current) drug therapy; Z79.01 Long term (current) use of anticoagulants; Z86.718 Personal history of other venous thrombosis and embolism; Z95.0 Presence of cardiac pacemaker
CPT/HCPCS: 92960; 93005; J7040

== ENCOUNTER → 2023-03-02 | Outpatient (CLI) | payer OTHER, SELFPAY ==
[2023-03-07 15:08] LABS: C1 EST Inhibitor, Functional >93 (.)
== END | disposition home or self-care (01) ==
PROVIDERS: PCP Family Medicine; Referring Provider Specialist; Visit Provider Specialist
DX: J30.9 Allergic rhinitis, unspecified (principal); D84.9 Immunodeficiency, unspecified; J45.50 Severe persistent asthma, uncomplicated; R06.00 Dyspnea, unspecified; J32.9 Chronic sinusitis, unspecified; L50.1 Idiopathic urticaria; E55.9 Vitamin D deficiency, unspecified; E07.9 Disorder of thyroid, unspecified; Z91.038 Other insect allergy status
CPT/HCPCS: 36415; 83520; 86160; 86161

== ENCOUNTER 2023-03-11 21:59 | Observation (INO) | payer OTHER, SELFPAY ==
[2023-03-11 22:03] VITALS: BP 115/66; PULSE 136; RESP 25; TEMP 36.8; O2SAT 94; BMI 29.9
[2023-03-11 22:15] VITALS: BP 72/61; BP 89/69; BP 93/60; PULSE 128; PULSE 80; PULSE 81
--- NOTE | 2023-03-11 22:18 | EX.ED.DYSGE1 ---
HPI History of Present Illness Chief Complaint: Syncope Detail of Chief Complaint: Near syncope. No LOC. Informant: patient and family Onset/Context/Timing Onset: Today Context: Sudden Onset Current Severity: Gone Maximum Severity: Moderate Narrative Narrative: 62-year-old male history of A-fib, DVT, factor V on Xarelto. Pacemaker. Adrenal insufficiency. Had a near syncopal event around 845 tonight. Denies any chest pain. No shortness of breath. No abdominal pain. Denies nausea, vomiting or diarrhea. Denies fever or chills. Denies dysuria or melena. No recent illness. Prior similar symptoms: Yes Recent Illness/Hospitalization: No PFSH PFS Medical History Abscess of right thigh Acute cystitis DAYNA (acute kidney injury) Anemia Asymptomatic premature ventricular contractions Atrial fibrillation with RVR Atrial flutter Atrial flutter with rapid ventricular response Coagulopathy Elevated LFTs Factor V Leiden Fever with exanthematous rash Hematuria History of DVT (deep vein thrombosis) History of left heart catheterization (LHC) (~11/12/21) History of pulmonary embolism 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 knee joint long-term 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 amiodarone Paroxysmal atrial fibrillation Premature atrial contraction Presence of cardiac pacemaker Septic shock Severe sepsis Syncope and collapse Syncope and collapse Wide-complex tachycardia Home Medications epinephrine 0.3 mg/0.3 mL injection, auto-injector (EpiPen 2-Franklin) 0.3 mg (0.3 mL) IM Q10M PRN PRN anaphylaxis #2 ea 02/06/22 [Rx Last Taken Unknown] rivaroxaban 20 mg tablet 20 mg PO DAILY blood thinner #90 tabs 06/29/22 [Rx Last Taken 12/12/22] fludrocortisone 0.1 mg tablet 0.1 mg PO DAILY hypotension #90 tabs 07/13/22 [Rx Last Taken Unknown] metoprolol tartrate 50 mg tablet 50 mg PO BID #180 tabs 08/13/22 [Rx Last Taken 12/13/22] Allergy/AdvReac Type Severity Reaction Status Date / Time ciprofloxacin Allergy Unknown Rash Verified 03/11/23 22:03 ceftriaxone Allergy Rash Verified 03/11/23 22:03 Iodinated Contrast Media Allergy Angioedema Verified 03/11/23 22:03 [contrast dye - iodinated] linezolid Allergy Rash Verified 03/11/23 22:03 Sulfa (Sulfonamide Allergy Unknown Verified 03/11/23 22:03 Antibiotics) vancomycin Allergy Fever and Verified 03/11/23 22:03 skin rash Family History Mother Ulcerative colitis Grandfather No problems noted. 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 Review of Systems ROS Unobtainable: Denies due to encephalopathy Constitutional Constitutional ED: Denies chills or fever(s) Eyes Eyes: Denies blurry vision ENT ENT ED: Denies ear pain Cardiovascular Cardiovascular: Denies chest pain or palpitations Respiratory/Chest Respiratory/Chest: Denies cough or dyspnea Gastrointestinal Gastrointestinal: Denies abdominal pain Genitourinary Genitourinary ED: Denies dysuria or hematuria Musculoskeletal Musculoskeletal: Denies arthralgias or back pain Integumentary Denies abscess or Abrasions Neurologic Neurologic: Reports headache(s) Psychiatric Psychiatric: Denies anxiety Endocrine Endocrinology: Denies cold intolerance or heat intolerance Hematologic/Lymphatic Hematologic/Lymphatic: Reports none Allergic/Immunologic Allergic/Immunologic ED: Denies mouth swelling, tongue swelling or urticaria EXAM Physical Exam Narrative Exam Narrative: 62-year-old male vital signs are stable except he is in A-fib RVR when I am in the room his heart rate is 111. On triage it was 136. Initial blood pressure 115/66. Pulse ox 94% on room air. H EENT exam unremarkable. Pupils round reactive light. No facial droop. No trauma. Nontender. Lungs clear to auscultation bilaterally. Heart A-fib rapid rate about 111 no murmur. Chest wall nontender. Abdomen soft nontender. Moving all 4 extremities. Nontender no edema. Neurologically is awake and alert with no focal motor deficits. Const Vital Signs: 03/11/23 22:03 03/11/23 22:10 03/11/23 22:53 Temperature 98.3 F Temperature Source Temporal Pulse Rate 136 H Pulse Rate [Lying] Pulse Rate [Sitting (for 1 minute prior to obtaining)] Pulse Rate [Standing (for 1 minute prior to obtaining)] Respiratory Rate 25 H Respiratory Pattern Normal Blood Pressure 115/66 Blood Pressure [Lying] Blood Pressure [Sitting (for 1 minute prior to obtaining)] Blood Pressure [Standing (for 1 minute prior to obtaining)] Blood Pressure Mean 82 Blood Pressure Mean [Lying] Blood Pressure Mean [Sitting (for 1 minute prior to obtaining)] Blood Pressure Mean [Standing (for 1 minute prior to obtaining)] Pulse Ox 94 Oxygen Delivery Method Room Air Room Air 03/11/23 22:15 03/11/23 23:01 Temperature 98.3 F Temperature Source Oral Pulse Rate Pulse Rate [Lying] 80 Pulse Rate [Sitting (for 1 minute prior to obtaining)] 81 Pulse Rate [Standing (for 1 minute prior to obtaining)] 128 H Respiratory Rate Respiratory Pattern Blood Pressure Blood Pressure [Lying] 93/60 Blood Pressure [Sitting (for 1 minute prior to obtaining)] 89/69 L Blood Pressure [Standing (for 1 minute prior to obtaining)] 72/61 L Blood Pressure Mean Blood Pressure Mean [Lying] 71 Blood Pressure Mean [Sitting (for 1 minute prior to obtaining)] 75 Blood Pressure Mean [Standing (for 1 minute prior to obtaining)] 64 Pulse Ox Oxygen Delivery Method Positive well nourished and well developed; Negative for obese, cachectic, contractures or unkempt General Appearance ED: well developed and NAD; Negative for unkempt, cachectic, contractures or diaphoretic Nutritional Appearance: Negative for cachectic or obese HEENT Reports moist mucous membranes; Denies dry mucous membranes Negative for trauma or tenderness Mouth ED: No dry mucous membranes Mouth: No dry mucous membranes Eyes PERRL and EOMs intact bilaterally General Eye ED: Negative for pale conjunctiva, scleral icterus or other Neck no lymphadenopathy, supple and No no JVD General: Negative for tenderness Lymph Lymphatic: Negative for other Chest Wall inspection of chest normal and palpation of chest normal Chest: Negative for other Resp normal respiratory effort and clear to auscultation bilaterally Effort and Inspection: Negative for retractions Auscultation: Negative for rales, rhonchi or wheezes Cardio Negative for regular rate or regular rhythm Rate: tachycardic Rhythm: abnormal rhythm GI normal to inspection, nondistended, normoactive bowel sounds, non-tender and no masses Auscultation: normoactive bowel sounds Palpation: soft; Negative for tender or guarding Back/Spine no CVA tenderness General Back: Negative for CVA tenderness Cervical Spine: Negative for cervical spine tenderness Lumbar Spine / Lower Back: Negative for lumbar spinal tenderness Extremity normal to inspection General Extremety ED: Negative for edema or tenderness General Extremity: Negative for edema Neuro oriented x3 and CN's II-XII intact bilaterally Sensorium / Orientation: alert; Negative for orientation impaired, lethargic or stuporous Motor Exam: strength 5/5 throughout; Negative for general weakness or strength abnormal Psych mental status grossly normal Appearance: Negative for unkempt Mood & Affect: Negative for depressed, anxious or tearful Skin No no rashes or lesions noted, no wounds and skin turgor normal General Skin Exam: Negative for jaundice Lesions: No lesion noted Rashes: rashes noted Trauma: Negative for abrasion Wounds: Negative for wounds noted MDM MDM MDM Narrative Medical decision making narrative: 62-year-old male extensive past medical history of the near syncopal episode today. Occurred about 845. He is on blood thinner Xarelto he has a history of A-fib and currently is in A-fib RVR. Cardiac and infectious workup will be pursued. Currently he is afebrile. Repeat exam at 12 1:20 AM he remains in A-fib but is getting controlled rate. After the IV Cardizem. Currently he is in A-fib still and his rates around 100-110. We placed on a Cardizem drip. Given IV fluid bolus. I will speak to the hospitalist about admission. History & Record Review Discussion w/independent historian: Patient and Family Additional record(s) reviewed:: Prior inpatient record, Prior outpatient record, Prior ED visit and Prior labs Lab Data Attestation: I reviewed the patient's lab results. Lab results narrative: CBC shows a white count 8. H&H is 17 and 56. Platelets 175. Electrolytes show a gap of 6. Normal BUN of 16 and creatinine 1.1. Glucose 124. Troponin 10. COVID, flu and RSV are all negative. Labs: Laboratory Results - last 24 hr 03/11/23 22:37 WBC 8.4 RBC 6.17 Hgb 17.9 H Hct 56.5 H MCV 91.6 MCH 29.0 MCHC 31.7 L RDW Std Deviation 43.6 RDW Coeff of Donna 12.8 Plt Count 175 MPV 10.9 Immature Gran % (Auto) 0.200 Neut % (Auto) 77.6 H Lymph % (Auto) 11.6 L Storey % (Auto) 6.5 Eos % (Auto) 3.6 Baso % (Auto) 0.5 Absolute Neuts (auto) 6.5 Absolute Lymphs (auto) 0.97 Nucleated RBC % 0 Sodium 137 Potassium 3.7 Chloride 103 Carbon Dioxide 28.0 Anion Gap 6 BUN 16 Creatinine 1.13 Estim Creat Clear Calc 87.89 Est GFR (MDRD) Af Amer 85 Est GFR (MDRD) Non-Af 70 BUN/Creatinine Ratio 14.2 Glucose 124 H Calcium 8.9 Troponin I High Sens 10 Radiography Chest X-Ray - ED: 1 View, Read by ED Physician, Heart, Lungs, Mediastinum, Bony Structures, No Acute Disease and Chronic Changes Diagnostic Testing: Clinical Impression(s) from Imaging Studies Chest X-Ray 03/11/23 22:39 IMPRESSION: No radiographic evidence of acute cardiopulmonary disease. Electronically Signed: Burke Luis DO at 23:47 EST Reading Location ID and State: [facility] / ID Tel [phone], Service support , Chest x-ray, portable, single view shows no acute abnormality. Normal cardiac silhouette. Left-sided pacemaker. No infiltrates. No effusions. Interpreted by myself. Rhythm Strip Rhythm Strip: A-fib Rate: 111 Ectopy: PVC(s) EKG Initial EKG: Attestation: I personally reviewed and interpreted this EKG as follows: Interpretation: No Acute Injury Pattern and Atrial Fibrillation Comments: A-fib RVR rate 111. No acute signs of AL or ischemia. PVCs. Follow-up EKG: Attestation: I personally reviewed and interpreted this EKG as follows: Interpretation: No Acute Injury Pattern and Atrial Fibrillation Comments: Repeat EKG after he received Cardizem. It was questionable if he was back in sinus rhythm but he is not. He remains in A-fib but his rate is 95. He has occasional PVCs. Prior EKG tracings: available for review Prior: Unchanged Discharge Plan Triage Chief Complaint: Syncope Other Complaint: Rash ED Provider: Rene Gunter Dx/Rx/DC Orders Clinical Impression: Hx of adrenal insufficiency, Chronic hypotension, Chronic anticoagulation, Near syncope, Atrial fibrillation with rapid ventricular response Prescriptions: No Action epinephrine [EpiPen 2-Franklin] 0.3 mg/0.3 mL auto-injector 0.3 mg IM Q10M PRN PRN (Reason: anaphylaxis) Qty: 2 0RF Rx Instructions: for 2 doses rivaroxaban 20 mg tablet 20 mg PO DAILY Qty: 90 3RF Hold Instructions: Resume on 11/27/21. If pacemaker / wound check stable. Rx Instructions: Hold after dose on 11/17/2021 for pacemaker placement fludrocortisone 0.1 mg tablet 0.1 mg PO DAILY Qty: 90 3RF metoprolol tartrate 50 mg tablet 50 mg PO BID Qty: 180 3RF Primary Care Provider: Dc Glez Referrals: Dc Glez MD [Primary Care Provider] - Disposition Disposition: Acute Care Hospital [facility]
--- NOTE | 2023-03-11 22:39 | RAD_ITS ---
INDICATION: chest pain EXAMINATION/TECHNIQUE: X-RAY - XR Chest 1 View COMPARISON: November 20, 2021 FINDINGS: LINES/DEVICES: None. LUNGS: No consolidation, edema or effusion. No pneumothorax. MEDIASTINUM AND CARDIOVASCULAR STRUCTURES: Cardiac silhouette not enlarged. Central airways and mediastinal contour are unremarkable. BONES AND SOFT TISSUES: Degenerative vertebral changes. RAD/Chest 1 View (Portable) IMPRESSION: No radiographic evidence of acute cardiopulmonary disease. Electronically Signed: Burke Luis DO at 23:47 EST ,
[2023-03-11] MEDS: Ondansetron 4 MG/2 ML Vial IV (22:48)
[2023-03-11] MEDS: dilTIAZem 25 MG/5 ML Vial 20 MG IV BOLUS (22:51)
[2023-03-11 22:59] LABS: Absolute Lymphocyte Count 0.97 X10^3/uL (0.83-4.51); Absolute Neutrophil Count 6.5 X10^3/uL (2.0-7.7); Basophil# 0.04 X10^3/uL; Basophil% 0.5 % (0-1); Eosinophils% 3.6 % (0-5); Hemoglobin 17.9 g/dL (13.0-16.5); Lymphocyte # 0.97 X10^3/ul (0.83-4.51); Lymphocyte % 11.6 % (19-41); Mean Corp Hgb Conc 31.7 g/dL (32-36); Mean Corpuscular Volume 91.6 fL (80-94); Mean Platelet Vol. 10.9 fl (6.2-12.0); Monocyte# 0.54 X10^3/uL; Monocyte% 6.5 % (0-10); NRBC Flagged by Analyzer 0 % (0-5); Neutrophil # 6.49 X10^3/uL (2.7-7.7); Neutrophil % 77.6 % (47-70); Platelet Count 175 K/mm3 (150-450); RBC Distribution Width CV 12.8 % (11.6-14.6); RBC Distribution Width SD 43.6 fl (35.1-43.9); Red Blood Count 6.17 M/mm3 (4.6-6.2); White Blood Count 8.4 K/mm3 (4.4-11.0)
[2023-03-11 23:01] VITALS: TEMP 36.8
[2023-03-11 23:02] LABS: Hematocrit 56.5 % (40-54)
[2023-03-11 23:18] LABS: Anion Gap 6 (5-15); BUN 16 mg/dL (7-18); BUN/Creat Ratio 14.2 RATIO (10-20); Calcium,Total 8.9 mg/dL (8.5-10.1); Chloride 103 mmol/L (98-107); Creatinine, Serum 1.13 mg/dL (0.70-1.30); EST Glomerular Filtration Rate 70 mL/min (>60); Est Glom Filt Rate - Afr Amer 85 mL/min (>60); Estimated Creatinine Clearance 87.89 ml/min; Glucose 124 mg/dL (74-106); Potassium 3.7 mmol/L (3.5-5.1); Sodium Level 137 mmol/L (136-145); Troponin-I HS 10 pg/mL (3.0-78.0)
[2023-03-11 23:30] VITALS: BP 91/59; PULSE 82; RESP 19
[2023-03-12] VITALS (16 sets, daily range): BP systolic 86–123; BP diastolic 60–77; PULSE 69–137; RESP 16–23; TEMP 36.6–36.8; O2SAT 91–95; BMI 29.7; BMI 29.8
--- NOTE | 2023-03-12 00:38 | PCM.HP.STD ---
[facility] - General General Date of Admission: 03/12/23 Date of Service: 03/12/23 Chief Complaint: Near Syncope. HPI Narrative HUNG LAWSON, is a 62 M with a past medical history of essential hypertension, obesity; with BMI of 30 this admission, adrenal insufficiency; on fludrocortisone 0.1 mg daily, Ngnhea-W-Biczcr disorder; with history of DVT/PE, paroxysmal atrial fibrillation; on Apixaban with patient intolerant to Amiodarone and followed by [facility], history of arrhythmia; s/p PPM, history of infected right prosthetic knee joint with sepsis, history of Wide Complex Tachycardia and history of syncope with collapse who presents to [facility] ER complaining of near syncope. Mr. Lawson reports his symptoms began approximately 18:45 hours yesterday evening with a near syncopal event. He denies associated chest pain, chest pressure, SOB, diaphoresis, nausea, vomiting, recent illness or recent medication changes. He admits his symptoms are similar to his previous syncopal episodes except that he did not have a complete LOC. In the ER he was diagnosed with Atrial Fibrillation; with RVR @ ~136 bpm with a normal blood pressure of 115/66 mm Hg saturating 94% on RA - but he was noted to be orthostatic with his blood pressure dropping to 72/61 mm Hg with standing up for which he was treated with IV Cardizem and IVF's and he was then admitted to the CDU under observation status for ongoing care for a stay that is expected to be less than 48 hours. 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 Paroxysmal atrial fibrillation Premature atrial contraction Presence of cardiac pacemaker Septic shock Severe sepsis Syncope and collapse Syncope and collapse Wide-complex tachycardia Home Medications epinephrine 0.3 mg/0.3 mL injection, auto-injector (EpiPen 2-Franklin) 0.3 mg (0.3 mL) IM Q10M PRN PRN anaphylaxis #2 ea 02/06/22 [Rx Last Taken Unknown] rivaroxaban 20 mg tablet 20 mg PO DAILY blood thinner #90 tabs 06/29/22 [Rx Last Taken 12/12/22] fludrocortisone 0.1 mg tablet 0.1 mg PO DAILY hypotension #90 tabs 07/13/22 [Rx Last Taken Unknown] metoprolol tartrate 50 mg tablet 50 mg PO BID #180 tabs 08/13/22 [Rx Last Taken 12/13/22] Allergy/AdvReac Type Severity Reaction Status Date / Time ciprofloxacin Allergy Unknown Rash Verified 03/11/23 22:03 ceftriaxone Allergy Rash Verified 03/11/23 22:03 Iodinated Contrast Media Allergy Angioedema Verified 03/11/23 22:03 [contrast dye - iodinated] linezolid Allergy Rash Verified 03/11/23 22:03 Sulfa (Sulfonamide Allergy Unknown Verified 03/11/23 22:03 Antibiotics) vancomycin Allergy Fever and Verified 03/11/23 22:03 skin rash Family History Mother Ulcerative colitis Grandfather No problems noted. 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 pets and animals: Yes (cat) Smoking Status: Never smoker alcohol intake: current details: occasional substance use type: does not use caffeine: No ROS ROS Narrative Review of systems: Constitutional: Vital Signs Vital Signs Vital Signs: 03/11/23 22:03 03/11/23 22:10 03/11/23 22:53 Temperature 98.3 F Temperature Source Temporal Pulse Rate 136 H Pulse Rate [Lying] Pulse Rate [Sitting (for 1 minute prior to obtaining)] Pulse Rate [Standing (for 1 minute prior to obtaining)] Respiratory Rate 25 H Respiratory Pattern Normal Blood Pressure 115/66 Blood Pressure [Lying] Blood Pressure [Sitting (for 1 minute prior to obtaining)] Blood Pressure [Standing (for 1 minute prior to obtaining)] Blood Pressure Mean 82 Blood Pressure Mean [Lying] Blood Pressure Mean [Sitting (for 1 minute prior to obtaining)] Blood Pressure Mean [Standing (for 1 minute prior to obtaining)] Pulse Ox 94 Oxygen Delivery Method Room Air Room Air 03/11/23 22:15 03/11/23 23:01 Temperature 98.3 F Temperature Source Oral Pulse Rate Pulse Rate [Lying] 80 Pulse Rate [Sitting (for 1 minute prior to obtaining)] 81 Pulse Rate [Standing (for 1 minute prior to obtaining)] 128 H Respiratory Rate Respiratory Pattern Blood Pressure Blood Pressure [Lying] 93/60 Blood Pressure [Sitting (for 1 minute prior to obtaining)] 89/69 L Blood Pressure [Standing (for 1 minute prior to obtaining)] 72/61 L Blood Pressure Mean Blood Pressure Mean [Lying] 71 Blood Pressure Mean [Sitting (for 1 minute prior to obtaining)] 75 Blood Pressure Mean [Standing (for 1 minute prior to obtaining)] 64 Pulse Ox Oxygen Delivery Method Weight Weight: 233 lb 7.512 oz Body Mass Index (BMI) 29.9 Physical Exam Const alert, oriented x3, no apparent distress, average body habitus and healthy appearing General Appearance: cooperative HEENT normocephalic, head/scalp atraumatic, hearing grossly normal bilaterally, moist oral mucous membranes and oropharynx normal Eyes PERRL and EOMs intact bilaterally Neck no lymphadenopathy and supple Resp normal respiratory effort, no retractions, no use of accessory muscles and clear to auscultation bilaterally Cardio Cardio Narrative: Iregularly irregular. GI normal to inspection, nondistended, normoactive bowel sounds, soft to palpation, non-tender and non-distended Extremity normal to inspection and full ROM Skin Skin Narrative: Patient has no evidence of rash at this time. Neuro oriented x3, CN's II-XII intact bilaterally, moves all extremities and no focal motor deficits Sensorium / Orientation: awake, alert, oriented to person, oriented to place and oriented to time Speech: speech normal Motor Exam: strength 5/5 throughout Psych affect normal Results Medical Records Data Attestation: I reviewed the patient's medical records Lab / Micro Data Attestation: I reviewed the patient's lab results. 03/12/23 06:33 03/11/23 22:37 Labs: Laboratory Results - last 24 hr 03/11/23 22:37: WBC 8.4, RBC 6.17, Hgb 17.9 H, Hct 56.5 H, MCV 91.6, MCH 29.0, MCHC 31.7 L, RDW Std Deviation 43.6, RDW Coeff of Donna 12.8, Plt Count 175, MPV 10.9, Immature Gran % (Auto) 0.200, Neut % (Auto) 77.6 H, Lymph % (Auto) 11.6 L, Phelps % (Auto) 6.5, Eos % (Auto) 3.6, Baso % (Auto) 0.5, Absolute Neuts (auto) 6.5, Absolute Lymphs (auto) 0.97, Nucleated RBC % 0, Sodium 137, Potassium 3.7, Chloride 103, Carbon Dioxide 28.0, Anion Gap 6, BUN 16, Creatinine 1.13, Estim Creat Clear Calc 87.89, Est GFR (MDRD) Af Amer 85, Est GFR (MDRD) Non-Af 70, BUN/Creatinine Ratio 14.2, Glucose 124 H, Calcium 8.9, Troponin I High Sens 10 Micro: Microbiology 03/11/23 23:07 Mucosa - Nose SARS-CoV-2, Influenza & RSV (PCR) - Final Rhythm Strip Rhythm Strip: A-fib Rate: 111 Ectopy: PVC(s) Imagaing Radiology Impression Chest X-Ray 03/11/23 22:39 IMPRESSION: No radiographic evidence of acute cardiopulmonary disease. Electronically Signed: Burke Luis DO at 23:47 EST Reading Location ID and State: [address] [place] [address] Tel [phone], Service support , Assessment & Plan Assessment/Plan (1) Atrial fibrillation with rapid ventricular response: (2) Near syncope: (3) Hx of adrenal insufficiency: (4) Presence of cardiac pacemaker: PLAN: Plan 1. Atrial Fibrillation; with RVR - Admit to CDU under observation status. Stop IV Cardizem now in favor of IV Digoxin to get good rate control without increased risk for hypotension. Check echocardiogram to evaluate LVEF. Avoid Amiodarone with a history of intolerance to this agent. Finally, we will consult cardiology to see this patient on-rounds in the AM for further recommendations with help appreciated in advance. 2. Near Syncope secondary to Orthostatic Hypotension in the setting of known adrenal insufficiency complicating #1 - Continue fludrocortisone as previous and consider increasing dose and possibly adding midodrine of okay with cardiology. Check carotid doppler to evaluate for stenosis. Check 8:00 AM cortisol. 3. Essential hypertension - Continue Metoprolol at 50% of the current dose in light of #1 & #2. 4. [id number] disorder; with history of DVT/PE - Noted. Continue Rivaroxaban as previous. 5. Obesity; with BMI of 30 this admission - Weight loss will be recommended. Check TSH. 6. History of arrhythmia; s/p PPM - Noted. 7. History of infected prosthetic knee joint with sepsis - Noted. 8. History of Wide Complex Tachycardia and history of syncope with collapse - Noted. 9. DVT prophylaxis - Patient on Xarelto for #1 which will be continued. Total time: Approximately 45 minutes. Charges/Coding Visit Charges OBSV E&M: 11541 Observ/hosp same date L1
[2023-03-12] MEDS: 0.9% Normal Saline (500mL Bag) 500 ML 999 ML IV (00:46)
[2023-03-12] MEDS: Digoxin 250 MCG/ML Ampul IV (02:38)
[2023-03-12] MEDS: 0.9% Normal Saline (1000mL) 1,000 ML 100 ML IV ×2 (02:39→08:43)
[2023-03-12 06:40] LABS: Absolute Lymphocyte Count 0.82 X10^3/uL (0.83-4.51); Absolute Neutrophil Count 4.8 X10^3/uL (2.0-7.7); Basophil# 0.02 X10^3/uL; Basophil% 0.3 % (0-1); Eosinophil# 0.46 X10^3/uL; Hematocrit 51.1 % (40-54); Hemoglobin 16.5 g/dL (13.0-16.5); Lymphocyte # 0.82 X10^3/ul (0.83-4.51); Lymphocyte % 12.5 % (19-41); Mean Corp Hgb Conc 32.3 g/dL (32-36); Mean Corpuscular Hgb 29.4 pg (27.0-32.0); Mean Corpuscular Volume 90.9 fL (80-94); Mean Platelet Vol. 10.4 fl (6.2-12.0); Monocyte# 0.39 X10^3/uL; NRBC Flagged by Analyzer 0 % (0-5); Neutrophil # 4.83 X10^3/uL (2.7-7.7); Neutrophil % 73.7 % (47-70); Platelet Count 156 K/mm3 (150-450); RBC Distribution Width SD 43.6 fl (35.1-43.9); Red Blood Count 5.62 M/mm3 (4.6-6.2); White Blood Count 6.6 K/mm3 (4.4-11.0)
[2023-03-12 07:20] LABS: ALB/GLOB Ratio 0.8 RATIO (0.9-2.4); AST(SGOT) 15 U/L (15-37); Alanine Aminotransfer ALT/SGPT 16 U/L (16-61); Albumin, Serum 2.9 g/dL (3.2-5.0); Alkaline Phosphatase 95 U/L (45-117); Anion Gap 5 (5-15); BUN 15 mg/dL (7-18); Calcium,Total 8.7 mg/dL (8.5-10.1); Chloride 109 mmol/L (98-107); Creatinine, Serum 1.07 mg/dL (0.70-1.30); EST Glomerular Filtration Rate 74 mL/min (>60); Est Glom Filt Rate - Afr Amer 90 mL/min (>60); Estimated Creatinine Clearance 92.66 ml/min; Globulin 3.6 g/dL (2.2-4.2); Glucose 108 mg/dL (74-106); Magnesium 2.3 mg/dL (1.6-2.6); Phosphorus 3.2 mg/dL (2.5-4.9); Potassium 4.7 mmol/L (3.5-5.1); Protein, Total 6.5 g/dL (6.4-8.2); Sodium Level 137 mmol/L (136-145); Thyroid Stim Hormone (TSH) 0.91 uIU/mL (0.358-3.74)
[2023-03-12] MEDS: Fludrocortisone Acetate 0.1 MG Tablet 0.100000000000000006 MG PO (08:43)
[2023-03-12] MEDS: Metoprolol Tartrate 25 MG Tablet PO (08:44)
--- NOTE | 2023-03-12 11:21 | PCM.CONS.C ---
Assessment & Plan Assessment/Plan (1) Hx of adrenal insufficiency: (2) Atrial flutter: (3) Paroxysmal atrial fibrillation: (4) Presence of cardiac pacemaker: (5) Sick sinus syndrome: (6) History of left heart catheterization (LHC): (7) Near syncope: (8) Atrial fibrillation with rapid ventricular response: PLAN: Plan 62-year-old patient presented with a syncopal episode Has multiple medical comorbidities History of paroxysmal A-fib prior cardioversion Has cardiac evaluation by cardiac catheterization which showed nonobstructive CAD and echocardiographic assessment showed LV function is preserved Patient has underlying sick sinus syndrome and had a pacemaker by Evidently he was at home and he has episode of near syncope around 845 while at home with his mother. Denied any symptoms of chest pain. Card exam essentially showed underlying A-fib controlled rate and a paced ventricular rhythm Cardiac care plan recommendation I reviewed and discussed all his current medication he been on anticoagulation with Xarelto. As well patient had a history of hypotension with history of adrenal insufficiency. Cardiac care plan recommendations; no further cardiac evaluation would be required Patient to follow-up as an outpatient with primary air sampling and monitoring for monitoring of the pacemaker as well as to monitor his medication. Will sign off HPI Consult Data Date of Consult: 03/13/23 HPI Narrative Reason for Consultation: Syncope/A-fib HPI Narrative: HUNG LAWSON, is a 62 M who presents [facility] Medical History Abscess of right thigh Acute cystitis DAYNA (acute kidney injury) Anemia Asymptomatic premature ventricular contractions Atrial fibrillation with RVR Atrial flutter Atrial flutter with rapid ventricular response Coagulopathy Elevated LFTs Factor V Leiden Fever with exanthematous rash Hematuria History of DVT (deep vein thrombosis) History of left heart catheterization (LHC) (~11/12/21) History of pulmonary embolism 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 knee joint 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 Paroxysmal atrial fibrillation Premature atrial contraction Presence of cardiac pacemaker Septic shock Severe sepsis Syncope and collapse Syncope and collapse Wide-complex tachycardia Home Medications epinephrine 0.3 mg/0.3 mL injection, auto-injector (EpiPen 2-Franklin) 0.3 mg (0.3 mL) IM Q10M PRN PRN anaphylaxis #2 ea 02/06/22 [Rx Last Taken Unknown] rivaroxaban 20 mg tablet 20 mg PO DAILY blood thinner #90 tabs 06/29/22 [Rx Last Taken 12/12/22] fludrocortisone 0.1 mg tablet 0.1 mg PO DAILY hypotension #90 tabs 07/13/22 [Rx Last Taken Unknown] metoprolol tartrate 25 mg tablet 25 mg PO BID 30 days #60 tabs 03/12/23 [Rx Last Taken Unknown] Allergy/AdvReac Type Severity Reaction Status Date / Time ciprofloxacin Allergy Unknown Rash Verified 03/11/23 22:03 ceftriaxone Allergy Rash Verified 03/11/23 22:03 Iodinated Contrast Media Allergy Angioedema Verified 03/11/23 22:03 [contrast dye - iodinated] linezolid Allergy Rash Verified 03/11/23 22:03 Sulfa (Sulfonamide Allergy Unknown Verified 03/11/23 22:03 Antibiotics) vancomycin Allergy Fever and Verified 03/11/23 22:03 skin rash Family History Mother Ulcerative colitis Grandfather No problems noted. 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 Risk Stratification Risk Stratification Applicable: No Objective Data Vital Signs: Vital Signs Temp Pulse Resp BP Pulse Ox O2 Del Method 97.8 F 85 16 123/77 H 95 Room Air 03/12/23 08:46 03/12/23 08:46 03/12/23 08:46 03/12/23 08:46 03/12/23 08:46 03/12/23 08:59 Oxygen Delivery Method Room Air Weight: 232 lb 9.403 oz Body Mass Index (BMI) 29.8 Intake & Output: Intake and Output for Last 24 Hours 03/10/23 03/11/23 03/12/23 23:59 23:59 23:59 Intake Total 1346.67 / 1346.67 Balance 1346.67 / 1346.67 Lab / Micro Data 03/12/23 06:33 03/12/23 06:33 Labs: Laboratory Results - last 24 hr 03/11/23 22:37: WBC 8.4, RBC 6.17, Hgb 17.9 H, Hct 56.5 H, MCV 91.6, MCH 29.0, MCHC 31.7 L, RDW Std Deviation 43.6, RDW Coeff of Donna 12.8, Plt Count 175, MPV 10.9, Immature Gran % (Auto) 0.200, Neut % (Auto) 77.6 H, Lymph % (Auto) 11.6 L, Howard % (Auto) 6.5, Eos % (Auto) 3.6, Baso % (Auto) 0.5, Absolute Neuts (auto) 6.5, Absolute Lymphs (auto) 0.97, Nucleated RBC % 0, Sodium 137, Potassium 3.7, Chloride 103, Carbon Dioxide 28.0, Anion Gap 6, BUN 16, Creatinine 1.13, Estim Creat Clear Calc 87.89, Est GFR (MDRD) Af Amer 85, Est GFR (MDRD) Non-Af 70, BUN/Creatinine Ratio 14.2, Glucose 124 H, Calcium 8.9, Troponin I High Sens 10 03/12/23 06:33: WBC 6.6, RBC 5.62, Hgb 16.5, Hct 51.1, MCV 90.9, MCH 29.4, MCHC 32.3, RDW Std Deviation 43.6, RDW Coeff of Donna 13.0, Plt Count 156, MPV 10.4, Immature Gran % (Auto) 0.500, Neut % (Auto) 73.7 H, Lymph % (Auto) 12.5 L, [place] % (Auto) 6.0, Eos % (Auto) 7.0 H, Baso % (Auto) 0.3, Absolute Neuts (auto) 4.8, Absolute Lymphs (auto) 0.82 L, Nucleated RBC % 0, Sodium 137, Potassium 4.7, Chloride 109 H, Carbon Dioxide 23.0, Anion Gap 5, BUN 15, Creatinine 1.07, Estim Creat Clear Calc 92.66, Est GFR (MDRD) Af Amer 90, Est GFR (MDRD) Non-Af 74, BUN/Creatinine Ratio 14.0, Glucose 108 H, Calcium 8.7, Phosphorus 3.2, Magnesium 2.3, Total Bilirubin 1.40 H, AST 15, ALT 16, Alkaline Phosphatase 95, Total Protein 6.5, Albumin 2.9 L, Globulin 3.6, Albumin/Globulin Ratio 0.8 L, TSH 0.91, Cortisol 21.90 Micro: Microbiology 03/11/23 23:07 Mucosa - Nose SARS-CoV-2, Influenza & RSV (PCR) - Final Rhythm Strip Rhythm Strip: A-fib Rate: 111 Ectopy: PVC(s) Cardiology Labs/Tests 03/11/23 22:37: WBC 8.4, RBC 6.17, Hgb 17.9 H, Hct 56.5 H, MCV 91.6, MCH 29.0, MCHC 31.7 L, Plt Count 175, MPV 10.9, Immature Gran % (Auto) 0.200, Neut % (Auto) 77.6 H, Lymph % (Auto) 11.6 L, [place] % (Auto) 6.5, Eos % (Auto) 3.6, Baso % (Auto) 0.5, Absolute Neuts (auto) 6.5, Nucleated RBC % 0, Sodium 137, Potassium 3.7, Chloride 103, Carbon Dioxide 28.0, Anion Gap 6, BUN 16, Creatinine 1.13, Est GFR (MDRD) Af Amer 85, Est GFR (MDRD) Non-Af 70, BUN/Creatinine Ratio 14.2, Glucose 124 H, Calcium 8.9 03/12/23 06:33: WBC 6.6, RBC 5.62, Hgb 16.5, Hct 51.1, MCV 90.9, MCH 29.4, MCHC 32.3, Plt Count 156, MPV 10.4, Immature Gran % (Auto) 0.500, Neut % (Auto) 73.7 H, Lymph % (Auto) 12.5 L, [place] % (Auto) 6.0, Eos % (Auto) 7.0 H, Baso % (Auto) 0.3, Absolute Neuts (auto) 4.8, Nucleated RBC % 0, Sodium 137, Potassium 4.7, Chloride 109 H, Carbon Dioxide 23.0, Anion Gap 5, BUN 15, Creatinine 1.07, Est GFR (MDRD) Af Amer 90, Est GFR (MDRD) Non-Af 74, BUN/Creatinine Ratio 14.0, Glucose 108 H, Calcium 8.7, Phosphorus 3.2, Magnesium 2.3, Total Bilirubin 1.40 H Rhythm: EKG: ECHO: Stress Test: Cardiac Cath: PCI: CT Surgery: Holter monitor: EPS: PPM: CXR: Chest CT Scan: Radiography Diagnostic Testing: Radiology Impression Chest X-Ray 03/11/23 22:39 IMPRESSION: No radiographic evidence of acute cardiopulmonary disease. Electronically Signed: Burke Luis DO at 23:47 EST Reading Location ID and State: [facility] / [place] Tel [phone], Service support ,
--- NOTE | 2023-03-12 14:51 | PCM.DC ---
Discharge Instructions Diet Discharge Diet: Low fat / Low cholesterol Activity Discharge Activity: Return to Normal Activity Dressing / Incision Call your doctor if you observe: Fever of 101 or Higher, Shortness of breath, Dizziness, Fainting spells, Swelling in the ankles, Chest pain and Increased palpitations (irregular heartbeat) Follow Up Care Test Results: Test results from this visit will be discussed in further detail at your follow-up appointment, if applicable. Discharge Plan Admission Admit Date/Time: 03/12/23 01:04 Attending Provider: Chaparro Gaines Primary Care Provider: Dc Glez Consulting Providers: Julisa Banda; Daija Cortes; Ko Sanchez; Olivier Bullock; Claude Carcamo; Trae Cano; Talat Rios; Dhruv Rosas; Reece Preston; Shlomo Neely; Memo Gallo; Jeni Harkins; Kike Ritchie; Dc Mazariegos; Varinder Luciano; Butch Gamble; Trevor Prieto; Robbie Sullivan NP; Julisa Howard NP; Kia Kirkpatrick; Ryan Castellano Instructions Additional Instructions / Restrictions: Please remain hydrated and we lowered her metoprolol from 50 mg p.o. twice daily to 25 mg p.o. twice daily. If you notice any palpitations please return to the hospital. Discharge Orders/Prescriptions Prescriptions: New metoprolol tartrate 25 mg Tablet 25 mg PO BID 30 Days Qty: 60 0RF Continued epinephrine [EpiPen 2-Franklin] 0.3 mg/0.3 mL auto-injector 0.3 mg IM Q10M PRN PRN (Reason: anaphylaxis) Qty: 2 0RF Rx Instructions: for 2 doses rivaroxaban 20 mg tablet 20 mg PO DAILY Qty: 90 3RF Hold Instructions: Resume on 11/27/21. If pacemaker / wound check stable. Rx Instructions: Hold after dose on 11/17/2021 for pacemaker placement fludrocortisone 0.1 mg tablet 0.1 mg PO DAILY Qty: 90 3RF Discontinued metoprolol tartrate 50 mg tablet 50 mg PO BID Qty: 180 3RF Referrals / Follow Up: Dc Glez MD [Primary Care Provider] - Within 1 Week Robbie Sullivan CORK PRESSING MACHINE OPERATOR, CORK PRESSING MACHINE OPERATOR-C [Med Staff - Adv Practice Prof] - Within 1 Month Disposition Disposition (needs filled in before D/C Order can be placed): Home, Self Care
--- NOTE | 2023-03-12 15:06 | DS.PCM_ITS ---
Providers Date of Admission: 03/12/23 Primary Care Physician: Dr. Dc Glez MD Consultations 03/12/23 02:08 Consult: Cardiology Routine Consulting Provider: [facility] Reason for Consult: Near Syncope, AFIB with RVR and Orthostatic + EMERGENT Consult: No MD Notified: Yes Date Notified: 03/12/23 Time Notified: 06:35 Method of Notification: Text Method of Consult:: In-Person Reason For Visit: NEAR SYNCOPE, AFIB WITH RVR AND ORTHOSTATIC Diagnosis Discharge Diagnosis (1) Hx of adrenal insufficiency: Status: Acute Code(s): Z86.39 - Personal history of other endocrine, nutritional and metabolic disease (2) Atrial flutter: Status: Acute Code(s): I48.92 - Unspecified atrial flutter (3) Paroxysmal atrial fibrillation: Status: Chronic Code(s): I48.0 - Paroxysmal atrial fibrillation (4) Presence of cardiac pacemaker: Status: Chronic Code(s): Z95.0 - Presence of cardiac pacemaker (5) Sick sinus syndrome: Status: Resolved Code(s): I49.5 - Sick sinus syndrome (6) History of left heart catheterization (LHC): Status: Acute Code(s): Z98.890 - Other specified postprocedural states (7) Near syncope: Status: Acute Code(s): R55 - Syncope and collapse (8) Atrial fibrillation with rapid ventricular response: Status: Acute Code(s): I48.91 - Unspecified atrial fibrillation Medications at Discharge Home Medications epinephrine 0.3 mg/0.3 mL injection, auto-injector (EpiPen 2-Franklin) 0.3 mg (0.3 mL) IM Q10M PRN PRN anaphylaxis #2 ea 02/06/22 rivaroxaban 20 mg tablet 20 mg PO DAILY blood thinner #90 tabs 06/29/22 fludrocortisone 0.1 mg tablet 0.1 mg PO DAILY hypotension #90 tabs 07/13/22 metoprolol tartrate 25 mg tablet 25 mg PO BID 30 days #60 tabs 03/12/23 Hospital Course Operations None Procedures None Summary of Care Provided Minutes Spent on Discharge: 36 Hospital Course: Per HPI: HUNG PECK, is a 62 M with a past medical history of essential hypertension, obesity; with BMI of 30 this admission, adrenal insufficiency; on fludrocortisone 0.1 mg daily, Uyvnol-[id number]-[id number] disorder; with history of DVT/PE, paroxysmal atrial fibrillation; on Apixaban with patient intolerant to Amiodarone and followed by [facility], history of arrhythmia; s/p PPM, history of infected right prosthetic knee joint with sepsis, history of Wide Complex Tachycardia and history of syncope with collapse who presents to [facility] ER complaining of near syncope. Mr. Peck reports his symptoms began approximately 18:45 hours yesterday evening with a near syncopal event. He denies associated chest pain, chest pressure, SOB, diaphoresis, nause a, vomiting, recent illness or recent medication changes. He admits his symptoms are similar to his previous syncopal episodes except that he did not have a complete LOC. In the ER he was diagnosed with Atrial Fibrillation; with RVR @ ~136 bpm with a normal blood pressure of 115/66 mm Hg saturating 94% on RA - but he was noted to be orthostatic with his blood pressure dropping to 72/61 mm Hg with standing up for which he was treated with IV Cardizem and IVF's and he was then admitted to the CDU under observation status for ongoing care for a stay that is expected to be less than 48 hours. Hospital Course: 1. A-fib with RVR/near syncope with orthostatic hypotension in the setting of adrenal insufficiency/pacemaker for sick sinus syndrome?60-year-old male who has extensive cardiac history presented to the hospital with near syncope and palpitations. His RVR resolved with a dose of Cardizem and his metoprolol was decreased from 50 mg p.o. twice daily to 25 mg p.o. twice daily by the admitting physician. He has not had palpitations for the rest of the day, he was given initial dose of digoxin x 1 as well. He has an intolerance to amiodarone. Cardiology was consulted and felt that he was stable for discharge today that he would likely need to follow-up as an outpatient with electrophysiology for possible ablation for his A-fib. He does have a pacemaker in place for sick sinus syndrome and he did have a cardioversion for his A-fib back in November. Will continue him on his Xarelto. He did have orthostatic vital signs obtained again after IV fluids were given today and his orthostatic vital signs were normal so will not change his fludrocortisone dosage either. I discussed with him the plan for discharge she expressed understanding of the risk benefits of going home and would like to go home today. Recommend he follow-up with his PCP in 3 to 5 days and his advertising operations manager within the month we discussed reasons for returning to the hospital not limited to palpitations and chest pain. 2. Hypertension, factor V Leiden are chronic medical conditions which complicate his care. His home medications were continued where appropriate Physical Exam Narrative General: Alert, Oriented x3, Cooperative, No apparent distress HEENT: Atraumatic, PERRLA, EOMI, Normocephalic Oral: Moist Mucosa Neck: Supple, No JVD Lungs: Diminished, Normal air movement, No rhonchi, No wheeze, No rales Cardiovascular: Regular rate, Regular Rhythm, Normal S1, Normal S2, No murmurs Abdomen: Soft, Non Tender, Non-Distended, No Hepato-splenomegaly Extremities: No edema, Capillary Refill Less than 3 Seconds Skin: No rashes, No breakdown Musculoskeletal: No Tenderness to Palpation of Joints or Extremities Neurological: Cranial nerves II-XII grossly intact, Motor Exam 5/5 strength throughout, Sensory exam intact to light touch and pain Psych/Mental Status: Normal Affect, Appropriate Weight / BMI Weight Weight: 232 lb 9.403 oz Body Mass Index (BMI) 29.8 ABG / Lab / Microbiology Data 03/12/23 06:33 03/12/23 06:33 Laboratory: Laboratory Results - last 24 hr 03/11/23 22:37: WBC 8.4, RBC 6.17, Hgb 17.9 H, Hct 56.5 H, MCV 91.6, MCH 29.0, MCHC 31.7 L, RDW Std Deviation 43.6, RDW Coeff of Donna 12.8, Plt Count 175, MPV 10.9, Immature Gran % (Auto) 0.200, Neut % (Auto) 77.6 H, Lymph % (Auto) 11.6 L, [place] % (Auto) 6.5, Eos % (Auto) 3.6, Baso % (Auto) 0.5, Absolute Neuts (auto) 6. 5, Absolute Lymphs (auto) 0.97, Nucleated RBC % 0, Sodium 137, Potassium 3.7, Chloride 103, Carbon Dioxide 28.0, Anion Gap 6, BUN 16, Creatinine 1.13, Estim Creat Clear Calc 87.89, Est GFR (MDRD) Af Amer 85, Est GFR (MDRD) Non-Af 70, BUN/Creatinine Ratio 14.2, Glucose 124 H, Calcium 8.9, Troponin I High Sens 10 03/12/23 06:33: WBC 6.6, RBC 5.62, Hgb 16.5, Hct 51.1, MCV 90.9, MCH 29.4, MCHC 32.3, RDW Std Deviation 43.6, RDW Coeff of Donna 13.0, Plt Count 156, MPV 10.4, Immature Gran % (Auto) 0.500, Neut % (Auto) 73.7 H, Lymph % (Auto) 12.5 L, [place] % (Auto) 6.0, Eos % (Auto) 7.0 H, Baso % (Auto) 0.3, Absolute Neuts (auto) 4.8, Absolute Lymphs (auto) 0.82 L, Nucleated RBC % 0, Sodium 137, Potassium 4.7, Chloride 109 H, Carbon Dioxide 23.0, Anion Gap 5, BUN 15, Creatinine 1.07, Estim Creat Clear Calc 92.66, Est GFR (MDRD) Af Amer 90, Est GFR (MDRD) Non-Af 74, BUN/Creatinine Ratio 14.0, Glucose 108 H, Calcium 8.7, Phosphorus 3.2, Magnesium 2.3, Total Bilirubin 1.40 H, AST 15, ALT 16, Alkaline Phosphatase 95, Total Protein 6.5, Albumin 2.9 L, Globulin 3.6, Albumin/Globulin Ratio 0.8 L, TSH 0.91, Cortisol 21.90 Microbiology: Microbiology 03/11/23 23:07 Mucosa - Nose SARS-CoV-2, Influenza & RSV (PCR) - Final Radiography Diagnostic Testing: Radiology Impression Chest X-Ray 03/11/23 22:39 IMPRESSION: No radiographic evidence of acute cardiopulmonary disease. Electronically Signed: Burke Luis DO at 23:47 EST Reading Location ID and State: [facility] / [place] Tel [phone], Service support , D/C Instructions Discharge Diet: Low fat / Low cholesterol Call your doctor if you observe: Fever of 101 or Higher, Shortness of breath, Dizziness, Fainting spells, Swelling in the ankles, Chest pain and Increased palpitations (irregular heartbeat) Meaningful Use Info Meaningful Use Diagnoses (Choose all that apply): None applicable Discharge Plan Admission Admit Date/Time: 03/12/23 01:04 Attending Provider: Chaparro Gaines Primary Care Provider: Dc Glez Consulting Providers: Julisa Banda; Daija Cortes; Ko Sanchez; Olivier Bullock; Claude Carcamo; Trae Cano; Talat Rios; Dhruv Rosas; Reece Preston; Shlomo Neely; Memo Gallo; Jeni Harkins; Kike Ritchie; Dc Mazariegos; Varinder Luciano; Butch Gamble; Trevor Prieto; Robbie Sullivan NP; Julisa Howard NP; Kia Kirkpatrick; Ryan Castellano Instructions Additional Instructions / Restrictions: Please remain hydrated and we lowered her metoprolol from 50 mg p.o. twice daily to 25 mg p.o. twice daily. If you notice any palpitations please return to the hospital. Discharge Orders/Prescriptions Prescriptions: New metoprolol tartrate 25 mg Tablet 25 mg PO BID 30 Days Qty: 60 0RF Continued epinephrine [EpiPen 2-Franklin] 0.3 mg/0.3 mL auto-injector 0.3 mg IM Q10M PRN PRN (Reason: anaphylaxis) Qty: 2 0RF Rx Instructions: for 2 doses rivaroxaban 20 mg tablet 20 mg PO DAILY Qty: 90 3RF Hold Instructions: Resume on 11/27/21. If pacemaker / wound check stable. Rx Instructions: Hold after dose on 11/17/2021 for pacemaker placement fludrocortisone 0.1 mg tablet 0.1 mg PO DAILY Qty: 90 3RF Discontinued metoprolol tartrate 50 mg tablet 50 mg PO BID Qty: 180 3RF Referrals / Follow Up: Dc Glez MD [Primary Care Provider] - Within 1 Week Robbie Sullivan NP, MICROBIOLOGY LAB TECHNICIAN-C [Med Staff - [facility] Practice Prof] - Within 1 Month Disposition Disposition (needs filled in before D/C Order can be placed): Home, Self Care Charges/Coding Visit Charges Inpatient E&M: 84504 Disch Hosp >30min
== END 2023-03-12 14:54 | disposition home or self-care (01) ==
LOC: ED 03-12 00:25 → PCU 03-12 01:35
PROVIDERS: Admitting Provider Internal Medicine; Emergency Provider Emergency Medicine; PCP Family Medicine; Referring Provider Internal Medicine; Visit Provider Family Medicine
DX: I95.1 Orthostatic hypotension (principal); I48.0 Paroxysmal atrial fibrillation; I48.92 Unspecified atrial flutter; E27.40 Unspecified adrenocortical insufficiency; D68.51 Activated protein C resistance; R21 Rash and other nonspecific skin eruption; I10 Essential (primary) hypertension; Z95.0 Presence of cardiac pacemaker; Z79.899 Other long term (current) drug therapy; Z79.01 Long term (current) use of anticoagulants; E66.9 Obesity, unspecified; Z68.30 Body mass index [BMI] 30.0-30.9, adult
CPT/HCPCS: 36415; 71045; 80048; 80053; 82533; 83735; 84100; 84443; 84484; 85025; 87040; 87631; 93005; 94668; 96361; 96374; 96375; 96376; 99221; 99285; J7030; A4216; G0378; J2405

== ENCOUNTER 2023-05-13 12:12 | Inpatient (IN) | payer OTHER, SELFPAY ==
[2023-05-04 10:45] LABS: Anion Gap 5 (5-15); BUN 15 mg/dL (7-18); BUN/Creat Ratio 12.8 RATIO (10-20); Calcium,Total 8.9 mg/dL (8.5-10.1); Chloride 108 mmol/L (98-107); Creatinine, Serum 1.17 mg/dL (0.70-1.30); EST Glomerular Filtration Rate 67 mL/min (>60); Est Glom Filt Rate - Afr Amer 81 mL/min (>60); Glucose 95 mg/dL (74-106); Potassium 4.2 mmol/L (3.5-5.1); Sodium Level 141 mmol/L (136-145)
--- NOTE | 2023-05-11 15:55 | PCM.HP.CAR ---
HPI - General General Date of Admission: 05/13/23 Chief Complaint: Afib HPI Narrative HUNG LAWSON, is a 62 M who presents here today for a DCCV and the initiation of sotalol therapy. He has a hx of syncope, PACs/PVCs, atrial fibrillation, wide-complex tachycardia with differential of a ventricular rhythm versus atrial fibrillation with aberrancy, and factor V Leiden deficiency with previous thromboembolic events. Patient was admitted and evaluated at [facility] in October 2021 for symptomatic bradycardia. Echocardiogram on 11/10/2021 showed ejection fraction 60%, mildly enlarged left atrium, mild mitral valve insufficiency, and RVSP of 36 mmHg. Heart catheterization on 11/12/2021 showed single-vessel mild coronary artery disease of the LAD. He underwent pacemaker placement on 11/19/[address] Rios for sick sinus syndrome. He did undergo a DCCV 12/13/22. Pt was hospitalized in February 2023 for near-syncope and atrial fibrillation with RVR. Remote report from 03/04/2023 showed 60% cumulative atrial arrhythmia burden with 2274 high ventricular rate episodes. His metoprolol was reduced on account of orthostatic changes and reduced systolic blood pressure at 70 mmHg. It is noted that he is intolerant to amiodarone. During a phone call after he was discharged home it was discussed antiarrhythmic therapy such as sotalol/Tikosyn therapy versus EP evaluation for ablation. Prior to pursuing ablation, patient wished to try sotalol therapy. [facility], [facility] Medical History Abscess of right thigh Acute cystitis DAYNA (acute kidney injury) Anemia Asymptomatic premature ventricular contractions Atrial fibrillation with RVR Atrial flutter Atrial flutter with rapid ventricular response Coagulopathy Elevated LFTs Factor V Leiden Fever with exanthematous rash Hematuria History of DVT (deep vein thrombosis) History of left heart catheterization (LHC) (~11/12/21) History of pulmonary embolism 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 knee joint senior care 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 amiodarone Paroxysmal atrial fibrillation Premature atrial contraction Presence of cardiac pacemaker Septic shock Severe sepsis Syncope and collapse Syncope and collapse Wide-complex tachycardia Home Medications epinephrine 0.3 mg/0.3 mL injection, auto-injector (EpiPen 2-Franklin) 0.3 mg (0.3 mL) IM Q10M PRN PRN anaphylaxis #2 ea 02/06/22 [Rx Last Taken Unknown] rivaroxaban 20 mg tablet 20 mg PO DAILY blood thinner #90 tabs 06/29/22 [Rx Last Taken 12/12/22] fludrocortisone 0.1 mg tablet 0.1 mg PO DAILY hypotension #90 tabs 07/13/22 [Rx Last Taken Unknown] metoprolol tartrate 25 mg tablet 25 mg PO BID #180 tabs 04/15/23 [Rx Last Taken Unknown] Allergy/AdvReac Type Severity Reaction Status Date / Time ciprofloxacin Allergy Unknown Rash Verified 04/08/23 15:19 ceftriaxone Allergy Rash Verified 04/08/23 15:19 Iodinated Contrast Media Allergy Angioedema Verified 04/08/23 15:19 [contrast dye - iodinated] linezolid Allergy Rash Verified 04/08/23 15:19 Sulfa (Sulfonamide Allergy Unknown Verified 04/08/23 15:19 Antibiotics) vancomycin Allergy Fever and Verified 04/08/23 15:19 skin rash Family History Mother Ulcerative colitis Grandfather No problems noted. 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 pets and animals: Yes (cat) Smoking Status: Never smoker alcohol intake: current details: occasional substance use type: does not use caffeine: No ROS Constitutional Constitutional: Reports fatigue; Denies frequent falls Eyes Eyes: Denies acute decrease in peripheral vision, blurry vision or change in vision ENT HEENT: Denies dizziness, epistaxis, tinnitus or vertigo Cardiovascular Cardiovascular: Denies chest pain at rest, chest pain with activity, claudication, dyspnea at rest, dyspnea on exertion or edema Respiratory/Chest Respiratory/Chest: Denies cough, dyspnea, dyspnea on exertion, tachypnea or wheezing Gastrointestinal Gastrointestinal: Denies abdominal pain, coffee ground emesis, diarrhea, heartburn, hematochezia, melena or nausea Genitourinary Genitourinary: Denies hematuria Musculoskeletal Musculoskeletal: Denies myalgias, numbness or tingling Physical Exam Const alert, oriented x3, no apparent distress and healthy appearing HEENT normocephalic, head/scalp atraumatic, hearing grossly normal bilaterally, external ears normal, external nose normal and moist oral mucous membranes Eyes PERRL, EOMs intact bilaterally, conjunctivae normal and no scleral icterus Neck no lymphadenopathy, supple and no JVD Cardio regular rate, S1 normal heart sound, S2 normal heart sound, no murmurs, no rub, no gallops, no clicks, no JVD and peripheral pulses 2+ throughout Cardio Narrative: Irregularly irregular GI normal to inspection, nondistended, normoactive bowel sounds, soft to palpation, non-tender and non-distended Extremity normal to inspection, normal capillary refill, no clubbing, cyanosis or edema and no pedal edema Neuro oriented x3, CN's II-XII intact bilaterally, moves all extremities and no focal motor deficits Psych cooperative and affect normal Cardiology Labs/Tests Cardiology Labs/Tests: Rhythm: EKG: ECHO: Stress Test: Cardiac Cath: PCI: CT Surgery: Holter monitor: EPS: PPM: CXR: Chest CT Scan: Assessment & Plan Assessment/Plan (1) Atrial fibrillation with rapid ventricular response: PLAN: Patient will undergo a cardioversion. He will then be admitted to PCU for initiation of sotalol therapy. His Xarelto has not been interrupted. (2) Presence of cardiac pacemaker:
[2023-05-13 10:20] VITALS: BMI 29.0
--- NOTE | 2023-05-13 12:16 | PCM.OP.PRO ---
Procedure Report Date of Procedure: 05/13/23 DC cardioversion. 62-year-old man with a history of paroxysmal atrial fibrillation status post permanent pacemaker implantation. Patient is here for elective DC cardioversion. After informed consent was obtained the patient was brought to the cardiac catheterization lab in the postabsorptive nonsedated state. Informed consent was obtained. The patient was seen by Dr. Moeller of the critical care division. Anterior-posterior pads were applied. The patient was administered 80 mg of intravenous propofol. 200 J of synchronized biphasic DC cardioversion energy were applied with prompt reversal to AV sequential paced rhythm and intermittent sinus rhythm. Patient tolerated the procedure well. Conclusion: Successful DC cardioversion from atrial fibrillation to sinus rhythm. Admit patient for sotalol initiation. Will observe patient for 5 doses of sotalol. And then can be discharged for outpatient follow-up.
--- NOTE | 2023-05-13 12:28 | PCM.OP.PRO ---
Procedure Report Date of Procedure: 05/13/23 CONSCIOUS SEDATION REPORT DATE OF SERVICE: May 13, 2023 BRIEF HISTORY OF PRESENT ILLNESS: The patient is a 62-year-old male who presented to [facility] for elective outpatient cardioversion due to underlying atrial fibrillation. The patient did undergo a prior cardioversion in November 2022, during which time, he required 80 mg of propofol to achieve an appropriate level of sedation. The patient denied any prior anesthetic complications. He is systemically anticoagulated on Xarelto. His last surface echocardiogram demonstrated an ejection fraction of approximately 60%. PHYSICAL EXAMINATION: VITAL SIGNS: Reviewed and were acceptable. GENERAL: The patient is a male, in no apparent distress, speaking in full sentences. HEENT: Normocephalic, atraumatic. Mucous membranes are moist and pink. Good mouth opening noted. Trachea is midline. CHEST: S1, S2 irregularly irregular. No murmurs, rubs or gallops were noted. LUNGS: Clear to auscultation bilaterally without appreciable wheezes, rales or rhonchi. ABDOMEN: Soft, nontender, nondistended. Positive bowel sounds. EXTREMITIES: There is no clubbing, cyanosis or edema. ASA Class: II DESCRIPTION OF PROCEDURE: After confirmation of informed consent, the patient's anesthesia plan was reviewed in detail. Propofol was chosen. Risks and benefits were reviewed and the patient agreed to proceed. At 1204, the patient was given 80 mg of propofol. The patient achieved an appropriate level of sedation and was given a 200 joule synchronized cardioversion by Dr. Cano at the bedside. This was successful in achieving normal sinus rhythm. The patient was monitored until 1217, at which time he reached his baseline mental status and function. The patient tolerated the procedure well. COMPLICATIONS: None ESTIMATED BLOOD LOSS: None RECOMMENDATIONS: Okay to recover in usual fashion. Procedures Pulmonary 9xxxx: [id number] Con Sedation
--- NOTE | 2023-05-13 13:19 | HP.PCM.CAR_ITS ---
[facility] - General General Date of Admission: 05/13/23 Chief Complaint: Afib HPI Narrative HUNG LAWSON, is a 62 M who presents here today for a DCCV and the initiation of sotalol therapy. He has a hx of syncope, PACs/PVCs, atrial fibrillation, wide-complex tachycardia with differential of a ventricular rhythm versus atrial fibrillation with aberrancy, and factor V Leiden deficiency with previous thromboembolic events. Patient was admitted and evaluated at [facility] in October 2021 for symptomatic bradycardia. Echocardiogram on 11/10/2021 showed ejection fraction 60%, mildly enlarged left atrium, mild mitral valve insufficiency, and RVSP of 36 mmHg. Heart catheterization on 11/12/2021 showed single-vessel mild coronary artery disease of the LAD. He underwent pacemaker placement on 11/19/[address] Rios for sick sinus syndrome. He did undergo a DCCV 12/13/22. Pt was hospitalized in February 2023 for near-syncope and atrial fibrillation with RVR. Remote report from 03/04/2023 showed 60% cumulative atrial arrhythmia burden with 2274 high ventricular rate episodes. His metoprolol was reduced on account of orthostatic changes and reduced systolic blood pressure at 70 mmHg. It is noted that he is intolerant to amiodarone. During a phone call after he was discharged home it was discussed antiarrhythmic therapy such as sotalol/Tikosyn therapy versus EP evaluation for ablation. Prior to pursuing ablation, patient wished to try sotalol therapy. 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 Paroxysmal atrial fibrillation Persistent atrial fibrillation Premature atrial contraction Presence of cardiac pacemaker Septic shock Severe sepsis Syncope and collapse Syncope and collapse Wide-complex tachycardia Home Medications epinephrine 0.3 mg/0.3 mL injection, auto-injector (EpiPen 2-Franklin) 0.3 mg (0.3 m L) IM Q10M PRN PRN anaphylaxis #2 ea 02/06/22 [Rx Last Taken Unknown] rivaroxaban 20 mg tablet 20 mg PO DAILY blood thinner #90 tabs 06/29/22 [Rx Last Taken 05/12/23 17:00] fludrocortisone 0.1 mg tablet 0.1 mg PO DAILY hypotension #90 tabs 07/13/22 [Rx Last Taken Unknown] metoprolol tartrate 25 mg tablet 25 mg PO BID #180 tabs 04/15/23 [Rx Last Taken 05/13/23] Allergy/AdvReac Type Severity Reaction Status Date / Time ciprofloxacin Allergy Unknown Rash Verified 04/08/23 15:19 ceftriaxone Allergy Rash Verified 04/08/23 15:19 Iodinated Contrast Media Allergy Angioedema Verified 04/08/23 15:19 [contrast dye - iodinated] linezolid Allergy Rash Verified 04/08/23 15:19 Sulfa (Sulfonamide Allergy Unknown Verified 04/08/23 15:19 Antibiotics) vancomycin Allergy Fever and Verified 04/08/23 15:19 skin rash Family History Mother Ulcerative colitis Grandfather No problems noted. 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 pets and animals: Yes (cat) Smoking Status: Never smoker alcohol intake: current details: occasional substance use type: does not use caffeine: No Vital Signs Vital Signs Vital Signs: Weight Weight: 226 lb Body Mass Index (BMI) 29.0 Physical Exam Const alert, oriented x3, no apparent distress and healthy appearing HEENT normocephalic, head/scalp atraumatic, hearing grossly normal bilaterally, external ears normal, external nose normal and moist oral mucous membranes Eyes PERRL, EOMs intact bilaterally, conjunctivae normal and no scleral icterus Neck no lymphadenopathy, supple and no JVD Cardio regular rate, regular rhythm, S1 normal heart sound, S2 normal heart sound, no murmurs, no rub, no gallops, no clicks, no JVD and peripheral pulses 2+ throughout GI normal to inspection, nondistended, normoactive bowel sounds, soft to palpation, non-tender and non-distended Extremity normal to inspection, normal capillary refill, no clubbing, cyanosis or edema and no pedal edema Neuro oriented x3, CN's II-XII intact bilaterally, moves all extremities and no focal motor deficits Psych cooperative and affect normal Cardiology Labs/Tests Cardiology Labs/Tests: Rhythm: EKG: ECHO: Stress Test: Cardiac Cath: PCI: CT Surgery: Holter monitor: EPS: PPM: CXR: Chest CT Scan: Assessment & Plan Assessment/Plan (1) Persistent atrial fibrillation: PLAN: Patient did undergo a cardioversion prior to be admitted to PCU. He did convert to sinus rhythm. Will stop his metoprolol and start him on sotalol. He will continue with his Xarelto. Did speak with pharmacy, they will adjust the timing of his medicines so that he is able to get 2 doses of his sotalol in . This way he will be able to be discharged home on Tuesday. Will obtain daily EKGs. (2) Chronic hypotension: PLAN: Patient is on Florinef. Will continue to monitor. (3) Presence of cardiac pacemaker: PLAN: Patient is having his pacemaker interrogated in the outpatient setting. Charges/Coding Visit Charges Inpatient E&M: 60735 Init Hosp L3
[2023-05-13 13:23] VITALS: BP 117/85; PULSE 64; RESP 18; TEMP 36.6; O2SAT 96
[2023-05-13 13:26] VITALS: BMI 29.9
[2023-05-13] MEDS: Sotalol Hydrochloride 80 MG Tablet PO ×2 (14:28→21:05)
[2023-05-13 18:11] VITALS: BP 103/79; PULSE 60; RESP 18; TEMP 36.8; O2SAT 96
[2023-05-13 21:09] VITALS: BP 111/77; PULSE 60; RESP 14; TEMP 36.7; O2SAT 96
[2023-05-14 03:34] VITALS: BP 115/61; PULSE 60; RESP 14; TEMP 36.8; O2SAT 97
--- NOTE | 2023-05-14 05:55 | EKG12_ITS ---
Test Reason : AM EKG Blood Pressure : / mmHG Vent. Rate : 060 BPM Atrial Rate : 060 BPM P-R Int : 230 ms QRS Dur : 086 ms QT Int : 454 ms P-R-T Axes : 035 008 -10 degrees QTc Int : 454 ms Atrial-paced rhythm with prolonged AV conduction Low voltage QRS Nonspecific T wave abnormality Abnormal ECG When compared with ECG of 13-MAY-2023 10:49, Electronic atrial pacemaker has replaced Sinus rhythm Criteria for Inferior infarct are no longer Present Confirmed by TRAE CANO MD ([id number]), science editor ANDREI NAVARRO ([id number]) on 05/18/2023 1:33:54 PM Referred By: Trae Cano Confirmed By:TRAE CANO MD
[2023-05-14 06:14] LABS: Anion Gap 4 (5-15); BUN 20 mg/dL (7-18); Calcium,Total 8.3 mg/dL (8.5-10.1); Chloride 108 mmol/L (98-107); EST Glomerular Filtration Rate 80 mL/min (>60); Est Glom Filt Rate - Afr Amer 97 mL/min (>60); Estimated Creatinine Clearance 99.19 ml/min; Glucose 96 mg/dL (74-106); Potassium 4.1 mmol/L (3.5-5.1); Sodium Level 140 mmol/L (136-145)
[2023-05-14 09:08] VITALS: BP 118/89; PULSE 67; RESP 17; TEMP 36.6; O2SAT 96
[2023-05-14] MEDS: Sotalol Hydrochloride 80 MG Tablet PO ×2 (09:12→21:16)
[2023-05-14] MEDS: Fludrocortisone Acetate 0.1 MG Tablet PO (09:12)
--- NOTE | 2023-05-14 10:20 | CASEMGMT ---
RN CM Face to Face with patient for initial transition planning/care coordination assessment. RN CM introduced self and role at [facility]. Patient sitting up in in bed. Pt is A&O x4 and answers all questions appropriately at this time. Care providers, pharmacy, and demographics verified/updated. Admitting Dx: Afib PCP: Amaris Specialists: Cardio Tom Le Pharmacy: [facility] Insurance: [facility] [employer] Prescription Benefit: yes LNOK: Aby, daughter Marcia Living Arrangements: Patient lives with and mother in a 2 story home. Patient is independent and able to ambulate stairs. The bathroom is on the main level, and bedroom on the upper level. Stais have a rail. There are 4 steps to enter the home and do not have a rail. Transportation: Pt drives self and denies concerns with transportation. DME:Patient states he has raised toilet, walker, cane, and crutches at home. Patient does not use the walker or crutches at baseline. Pt does use his cane when walking longer distances. HHC/SNF: Patient has had HHC in the past but could not recall agency as it was 6 years ago. Pt states no concerns with going home at time of dc. Pt states no further concerns/needs. CM to follow. Advised pt to ask CM if any further question/concerns/needs arise, voices understanding. Pt Goal: Home Plan: Home with self care Senia BUSTAMANTE, RN, CCM
[2023-05-14 13:52] LABS: Phosphorus 2.7 mg/dL (2.5-4.9)
[2023-05-14 13:54] LABS: Magnesium 2.4 mg/dL (1.6-2.6)
[2023-05-14 15:21] VITALS: BP 103/75; PULSE 60; RESP 16; TEMP 36.6; O2SAT 94
--- NOTE | 2023-05-14 16:05 | DCINST_ITS ---
Discharge Instructions Diet Discharge Diet: No restrictions Activity Discharge Activity: Return to Normal Activity Weight Bearing Status: Full weight bearing Follow Up Care Test Results: Test results from this visit will be discussed in further detail at your follow- up appointment, if applicable. Discharge Plan Admission Admit Date/Time: 05/13/23 12:12 Primary Reason for Your Visit: A fib DCCV Attending Provider: Trae Cano Primary Care Provider: Dc Glez Consulting Providers: Kia Kirkpatrick Discharge Orders/Prescriptions Prescriptions: New sotalol 80 mg Tablet 80 mg PO BID Qty: 60 0RF Continued epinephrine [EpiPen 2-Franklin] 0.3 mg/0.3 mL auto-injector 0.3 mg IM Q10M PRN PRN (Reason: anaphylaxis) Qty: 2 0RF Rx Instructions: for 2 doses rivaroxaban 20 mg tablet 20 mg PO DAILY Qty: 90 3RF Hold Instructions: Resume on 11/27/21. If pacemaker / wound check stable. Rx Instructions: Hold after dose on 11/17/2021 for pacemaker placement fludrocortisone 0.1 mg tablet 0.1 mg PO DAILY Qty: 90 3RF Discontinued metoprolol tartrate 25 mg tablet 25 mg PO BID Qty: 180 3RF Referrals / Follow Up: Dc Glez MD [Primary Care Provider] - Trae Cano MD [Med Staff - Active Staff] - Within 1 Week Disposition Disposition (needs filled in before D/C Order can be placed): Home, Self Care
--- NOTE | 2023-05-14 16:18 | PCM.PN.CARD ---
Subjective Subjective Seen and evaluated at bedside along with the nursing staff Comfortable no symptoms reported. Objective Data Vital Signs: Vital Signs Temp Pulse Resp BP Pulse Ox O2 Del Method 97.8 F 60 16 103/75 94 Room Air 05/14/23 15:21 05/14/23 15:21 05/14/23 15:21 05/14/23 15:21 05/14/23 15:21 05/14/23 15:21 Oxygen Delivery Method Room Air Weight: 232 lb 12.8 oz Body Mass Index (BMI) 29.9 Intake & Output: Intake and Output for Last 24 Hours 05/12/23 05/13/23 05/14/23 23:59 23:59 23:59 Intake Total 420 / 420 Balance 420 / 420 Lab / Micro Data 05/14/23 05:32 Labs: Laboratory Results - last 24 hr 05/14/23 05:32: Sodium 140, Potassium 4.1, Chloride 108 H, Carbon Dioxide 28.0, Anion Gap 4 L, BUN 20 H, Creatinine 1.00, Estim Creat Clear Calc 99.19, Est GFR (MDRD) Af Amer 97, Est GFR (MDRD) Non-Af 80, BUN/Creatinine Ratio 20.0, Glucose 96, Calcium 8.3 L, Phosphorus 2.7, Magnesium 2.4 Cardiology Labs/Tests 05/14/23 05:32: Sodium 140, Potassium 4.1, Chloride 108 H, Carbon Dioxide 28.0, Anion Gap 4 L, BUN 20 H, Creatinine 1.00, Est GFR (MDRD) Af Amer 97, Est GFR (MDRD) Non-Af 80, BUN/Creatinine Ratio 20.0, Glucose 96, Calcium 8.3 L, Phosphorus 2.7, Magnesium 2.4 Rhythm: EKG: ECHO: Stress Test: Cardiac Cath: PCI: CT Surgery: Holter monitor: EPS: PPM: CXR: Chest CT Scan: Physical Exam Cardio Cardio Narrative: Review ekg monitor tech showed normal sinus rhythm With a paced atrial rhythm episode of 6 beats of nonsustained V. tach Stable hemodynamically cardiac exam S1-S2 is regular Chest exam clear auscultation bilateral. Assessment & Plan Assessment/Plan (1) Persistent atrial fibrillation: (2) Chronic anticoagulation: (3) Factor V Leiden: (4) Sick sinus syndrome: (5) Presence of cardiac pacemaker: PLAN: Plan 62-year-old patient admitted following elective DCCVB Has a history of persistent atrial fibrillation Patient started on sotalol therapy Has a underlying sick sinus syndrome with a permanent pacemaker. He remains stable on sotalol maintaining normal sinus rhythm and intermittent atrial paced rhythm With episode of nonsustained ventricular tachycardia of 6 beats Electrolytes were normal including magnesium and potassium and patient has been stable hemodynamically. Cardiac care plan recommendation. Will continue to monitor his electrolytes and renal function The creatinine has been within normal The dosage of sotalol discussed which is 80 mg twice daily in addition patient is on chronic anticoagulation using rivaroxaban 20 mg at bedtime. 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 Sadler for continuation of cardiac care and for monitoring antiarrhythmic medication sotalol
[2023-05-14] MEDS: Rivaroxaban 20 MG Tablet PO (17:48)
[2023-05-14 21:15] VITALS: BP 119/83; PULSE 60; RESP 18; TEMP 36.5; O2SAT 96
[2023-05-14] MEDS: 0.9% Saline Lock 10 ML Syringe IV (21:16)
[2023-05-15 04:45] VITALS: BP 115/92; PULSE 60; RESP 18; TEMP 36.6; O2SAT 98
--- NOTE | 2023-05-15 05:55 | EKG12_ITS ---
Test Reason : AM EKG Blood Pressure : / mmHG Vent. Rate : 060 BPM Atrial Rate : 060 BPM P-R Int : 224 ms QRS Dur : 086 ms QT Int : 464 ms P-R-T Axes : 019 028 -01 degrees QTc Int : 464 ms Atrial-paced rhythm with prolonged AV conduction Nonspecific T wave abnormality Prolonged QT Abnormal ECG When compared with ECG of 13-MAY-2023 10:49, Electronic atrial pacemaker has replaced Sinus rhythm Criteria for Inferior infarct are no longer Present Confirmed by TRAE CANO MD ([id number]), online editor ANDREI NAVARRO ([id number]) on 05/18/2023 1:34:03 PM Referred By: Trae Cano Confirmed By:TRAE CANO MD
[2023-05-15 09:49] VITALS: BP 112/81; PULSE 64; RESP 16; TEMP 36.6; O2SAT 95
[2023-05-15] MEDS: Fludrocortisone Acetate 0.1 MG Tablet PO (09:51)
[2023-05-15] MEDS: Sotalol Hydrochloride 80 MG Tablet PO (09:51)
== END 2023-05-15 12:31 | disposition home or self-care (01) | DRG 309 ==
LOC: PCU 13:14
PROVIDERS: Physician Assistant Medical; Admitting Provider Internal Medicine Cardiovascular Disease; PCP Family Medicine; Referring Provider Internal Medicine Cardiovascular Disease; Visit Provider Internal Medicine Cardiovascular Disease
DX: I48.19 Other persistent atrial fibrillation (principal); D68.51 Activated protein C resistance; I49.5 Sick sinus syndrome; I95.89 Other hypotension; Z95.0 Presence of cardiac pacemaker; Z79.01 Long term (current) use of anticoagulants; Z79.899 Other long term (current) drug therapy; Z86.711 Personal history of pulmonary embolism; Z86.718 Personal history of other venous thrombosis and embolism
CPT/HCPCS: 36415; 80048; 83735; 84100; 92960; 93005; J7040; A4216

== ENCOUNTER → 2023-07-20 | Outpatient (CLI) | payer OTHER, SELFPAY ==
[2023-07-20 16:18] LABS: PSA,Total- Diagnostic 0.78 ng/mL (0.0-4.0)
== END | disposition home or self-care (01) ==
LOC: MFPLAB 11:36
PROVIDERS: PCP Family Medicine; Visit Provider Family Medicine
DX: R39.11 Hesitancy of micturition (principal)
CPT/HCPCS: 36415; 84153

== ENCOUNTER → 2023-11-02 | Outpatient (CLI) | payer OTHER, SELFPAY ==
--- NOTE | 2023-11-02 13:30 | ECHOD_ITS ---
Reason For Study: ATIRAL FIBRILLATION/ATRIAL FLUTTER Procedure This was a 2D Doppler, Color Flow transthoracic echocardiogram. Exam performed in department. Left Ventricle Normal LV size. Left ventricular systolic function is normal. The left ventricular ejection fraction is 60 %. Stage 2 diastolic dysfunction. No regional wall motion abnormalities noted. Right Ventricle Normal RV size. ICD or pacer leads identified within the right ventricle. Normal systolic function. Atria Normal left atrium. Normal right atrium. Mitral Valve Normal mitral valve. Tricuspid Valve Normal tricuspid valve. Mild tricuspid valve insufficiency. Pulmonary artery systolic pressure is 33 mmHg. Aortic Valve Trisinus/trileaflet aortic valve. Pulmonic Valve Normal pulmonic valve. Great Vessels Normal aortic root. The pulmonary artery is normal size. Normal inferior vena cava. Pericardium/Pleural No pericardial effusion. MMode/2D Measurements & Calculations LVIDd: 5.6 cm IVSd: 1.1 cm Ao root diam: 3.5 cm LVIDs: 3.6 cm LVPWd: 1.00 cm RVDd: 4.4 cm FS: 34.8 % LAV(MOD-bp): 96.1 ml LVAd ap4: 34.0 cm2 SV(MOD-sp4): 74.9 ml LAV(MOD-bp) Indexed: 41.5 ml/m2 LVLd ap4: 8.3 cm LAV(MOD-sp2): 73.9 ml EDV(MOD-sp4): 118.6 ml LAV(MOD-sp4): 117.9 ml EDV(sp4-el): 118.0 ml LVAs ap4: 18.4 cm2 LVLs ap4: 6.7 cm ESV(MOD-sp4): 43.7 ml ESV(sp4-el): 42.6 ml EF(MOD-sp4): 63.2 % EF(sp4-el): 63.9 % SV(sp4-el): 75.4 ml LA A4 area: 28.8 cm2 LA dimension(2D): 4.5 cm RA A4 area: 19.3 cm2 TAPSE: 3.1 cm Time Measurements MV dec time: 0.23 sec Doppler Measurements & Calculations MV E max michael: 66.5 cm/sec Lat Peak E' Michael: 5.5 cm/sec Med Peak E' Michael: 8.0 cm/sec MV A max michael: 43.6 cm/sec E/E' lat: 12.1 E/E' med: 8.3 MV E/A: 1.5 MV P1/2t max michael: 75.4 cm/sec Ao V2 max: 128.9 cm/sec LV V1 max: 98.3 cm/sec MV P1/2t: 80.6 msec Ao max P.6 mmHg LV V1 max P.9 mmHg Ao V2 mean: 83.4 cm/sec LV V1 mean P.0 mmHg MV dec slope: 274.0 cm/sec2 Ao mean P.3 mmHg LV V1 mean: 68.5 cm/sec MVA(P1/2t): 2.7 cm2 Ao V2 VTI: 27.7 cm LV V1 VTI: 21.9 cm AV (velocity ratio): 0.79 PA V2 max: 114.0 cm/sec TR max michael: 268.3 cm/sec PA V2 mean: 73.5 cm/sec PI dec slope: 143.9 cm/sec2 TR max P.8 mmHg ECHO/Echo Complete Interpretation Summary Normal LV size. Left ventricular systolic function is normal. The left ventricular ejection fraction is 60 %. Stage 2 diastolic dysfunction. Ordering Physician: Kia Kirkpatrick Referring Physician: Dc Glez Performed By: Magdalena Corado, KEVAN, RVT
== END | disposition home or self-care (01) ==
LOC: CVS 13:28
PROVIDERS: PCP Family Medicine; Referring Provider Physician Assistant Medical; Visit Provider Physician Assistant Medical
DX: I48.0 Paroxysmal atrial fibrillation (principal)
CPT/HCPCS: 93306

== ENCOUNTER → 2023-11-22 | Day surgery (SDC) | payer OTHER, SELFPAY ==
--- NOTE | 2023-11-09 09:00 | RAD_ITS ---
STUDY: X-RAY CHEST REASON FOR EXAM: Male, 63 years old. PAF TECHNIQUE: Single frontal view of the chest. COMPARISON: Chest x-ray March 11, 2023 FINDINGS: Bipolar pacer on the left unchanged. Scarring right mid lung. The lungs are clear and expanded. There is no demonstrated pleural abnormality. Normal size heart. Normal mediastinum and delia. Normal visualized pulmonary arteries. Normal visualized aortic arch and descending thoracic aorta. Normal visualized thoracic spine. Normal visualized ribs, clavicles, and shoulders. There is no demonstrated abnormality of the visualized soft tissue structures of the upper abdomen. RAD/Chest PA and Lateral IMPRESSION: No acute disease Electronically Signed: Yang Ambriz MD at 17:39 EDT ,
[2023-11-09 10:33] LABS: Anion Gap 4 (5-15); BUN 14 mg/dL (7-18); Calcium,Total 9.1 mg/dL (8.5-10.1); Chloride 109 mmol/L (98-107); EST Glomerular Filtration Rate 80 mL/min (>60); Est Glom Filt Rate - Afr Amer 97 mL/min (>60); Glucose 102 mg/dL (74-106); Potassium 3.8 mmol/L (3.5-5.1); Sodium Level 140 mmol/L (136-145)
[2023-11-21 09:31] VITALS: BMI 29.9
--- NOTE | 2023-11-23 06:43 | HP.PCM_ITS ---
History and Physical Date of Admission: 11/22/23 HUNG LAWSON, is a 63 year old white male with a hx of syncope, PACs/PVCs, atrial fibrillation, wide-complex tachycardia with differential of a ventricular rhythm versus atrial fibrillation with aberrancy, and factor V Leiden deficiency with previous thromboembolic events. Patient was admitted and evaluated at [facility] in October 2021 for symptomatic bradycardia. Echocardiogram on 11/10/2021 showed ejection fraction 60%, mildly enlarged left atrium, mild mitral valve insufficiency, and RVSP of 36 mmHg. Heart catheterization on 11/12/2021 showed single-vessel mild coronary artery disease of the LAD. He underwent pacemaker placement on 11/19/[address] Rios for sick sinus syndrome. He did undergo a DCCV 12/13/22. Pt was hospitalized in February 2023 for near-syncope and atrial fibrillation with RVR. Remote report from 03/04/2023 showed 60% cumulative atrial arrhythmia burden with 2274 high ventricular rate episodes. His metoprolol was reduced on account of orthostatic changes and reduced systolic blood pressure at 70 mmHg. It is noted that he is intolerant to amiodarone. He underwent DC cardioversion successfully and also underwent sotalol loading. EKG today demonstrates Afib with a HR of 84. Patient is not aware of his atrial fibrillation. From a cardiac standpoint he is doing well. He does not have any chest pain, heaviness, tightness, worsening shortness of breath. He does not have any lower extremity edema. Does not have any lightheadedness or dizziness. He is here today for a second DCCV on sotalol. Medical History Abscess of right thigh Acute cystitis DAYNA (acute kidney injury) Anemia Asymptomatic premature ventricular contractions Atrial fibrillation with RVR Atrial flutter Atrial flutter with rapid ventricular response Coagulopathy Elevated LFTs Factor V Leiden Fever with exanthematous rash Hematuria History of cardioversion History of DVT (deep vein thrombosis) History of left heart catheterization (LHC) (~11/12/21) History of pulmonary embolism 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 knee joint custodial 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 amiodarone Paroxysmal atrial fibrillation Persistent atrial fibrillation Premature atrial contraction Presence of cardiac pacemaker Septic shock Severe sepsis Syncope and collapse Syncope and collapse Wide-complex tachycardia Surgical History History of ankle surgery Status post total right knee replacement Family History Mother Ulcerative colitis Grandfather No problems noted. 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 pets and animals: Yes (cat) Smoking Status: Never smoker alcohol intake: current details: occasional substance use type: does not use caffeine: No ROS Const Const: Negative for fatigue, weakness, daytime sleepiness or difficulty sleeping ENT ENT: Negative for dizziness or Nosebleed/epistaxis Cardio Chest Pain: No Palpitations: No Edema: None Resp Respiratory: Negative for SOB with activity, SOB at rest, SOB orthopnea\SOB lying down or Cough GI GI: Negative nausea, vomiting or heartburn Neuro Neuro: Negative for dizziness, lightheadedness, near syncope or weakness Endo Endo: Negative for fatigue Cardiology Exam Const Appearance: cooperative, healthy appearing, comfortable and no acute distress Nutritional Appearance: well nourished and overweight Orientation: alert, awake and oriented x3 Head Head: normal to inspection Ears: hearing grossly normal bilaterally Nose: external nose normal Face and Sinus: face symmetric Mouth: moist mucous membranes Eyes General: appearance normal, both eyes and all related structures Eyelids: eyelids normal EOM: EOM intact bilaterally Neck Neck: normal visual inspection and no JVD Carotids: normal carotid upstroke Chest Chest inspection: normal inspection of the chest, symmetric chest movement and normal respiratory effort; Negative cough Auscultation: Bilateral: Clear to Auscultation Cardio Rhythm: irregularly irregular Heart sounds: S1 normal and S2 normal; Negative rub, gallop or murmur GI GI: normal to inspection Neuro General: patient alert, patient awake, patient oriented x3 and CN's II-XI intact bilaterally Skin Skin: no rashes or lesions noted Extremities Pulses: Normal: Right Posterior Tibial Pulse, Left Posterior Tibial Pulse, Right Radial Pulse and Left Radial Pulse Lower Extremity Edema: None: Bilateral Psych Psychological: normal affect Assessment & Plan Assessment/Plan (1) Atrial flutter with rapid ventricular response: PLAN: Pt will undergo a DCCV and f/u in the office after.
== END | disposition home or self-care (01) ==
LOC: CLSP 10:38
PROVIDERS: Physician Assistant Medical; PCP Family Medicine; Referring Provider Internal Medicine Cardiovascular Disease; Visit Provider Internal Medicine Cardiovascular Disease
DX: I48.92 Unspecified atrial flutter (principal); Z86.718 Personal history of other venous thrombosis and embolism
CPT/HCPCS: 36415; 71046; 80048; 93005

== ENCOUNTER → 2024-04-25 | Outpatient (CLI) | payer OTHER, SELFPAY ==
--- NOTE | 2024-04-25 14:46 | RAD_ITS ---
PROCEDURE: KNEE 4 OR MORE VIEWS REASON FOR EXAM: Left knee pain, swelling TECHNIQUE: 4 view(s) of the left knee COMPARISON: None. FINDINGS: No fracture. No suspicious bone lesion. Severe tricompartmental degenerative changes No effusion. Soft tissues are unremarkable. RAD/Knee 4 or More Views IMPRESSION: Severe degenerative changes in the left knee with no acute osseous abnormality. Reading Location: [facility]
[2024-04-25 19:50] LABS: ALB/GLOB Ratio 1.2 RATIO (0.9-2.4); AST(SGOT) 20 U/L (<=37); Alanine Aminotransfer ALT/SGPT 11 U/L (<=46); Alkaline Phosphatase 104 U/L (40-129); Anion Gap 13 (5-15); BUN 15 mg/dL (4-19); BUN/Creat Ratio 12.4 RATIO (10-20); Calcium,Total 9.3 mg/dL (7.6-11.0); Carbon Dioxide 22.8 mmol/L (21.0-32.0); Chloride 104 mmol/L (98-108); Cholesterol 214 mg/dL (<=200); Creatinine, Serum 1.17 mg/dL (0.70-1.20); EST Glomerular Filtration Rate 70 (>60); Globulin 3.3 g/dL (2.2-4.2); Glucose 94 mg/dL (70-99); High Density Lipoprotein 40 mg/dL; Low Density Lipoprotein Calc. 129 mg/dL; PSA,Total- Diagnostic 0.96 ng/mL (0.00-4.00); Potassium 4.6 mmol/L (3.3-5.1); Protein, Total 7.3 g/dL (5.9-8.4); Sodium Level 140 mmol/L (133-145); Total Bilirubin 0.71 mg/dL (0.00-1.30); Triglycerides 227 mg/dL; Very Low Density Lipoprotein 45 mg/dL (5-40); cholesterol:hdl ratio screen 5.36
[2024-05-07 12:08] LABS: Testosterone, % Free 3.01 % (1.50-4.20); Testosterone, Free 11.62 ng/dL (5.00-21.00); Testosterone, Total 386 ng/dL (264-916)
== END | disposition home or self-care (01) ==
PROVIDERS: PCP Family Medicine; Referring Provider Family Medicine; Visit Provider Family Medicine
DX: M25.562 Pain in left knee (principal)
CPT/HCPCS: 36415; 73564; 80053; 80061; 84153; 84402; 84403

== ENCOUNTER → 2024-05-04 | Outpatient (CLI) | payer OTHER, SELFPAY ==
--- NOTE | 2024-05-04 14:05 | RAD_ITS ---
EXAM: XR Chest, 2 Views CLINICAL INDICATION: SOB TECHNIQUE: Frontal and lateral views of the chest. COMPARISON: XR Chest dated 11/09/2023 FINDINGS: LUNGS AND PLEURAL SPACES: Pulmonary venous congestion. No consolidation. No pneumothorax. HEART: Unremarkable. No cardiomegaly. MEDIASTINUM: Unremarkable. Normal mediastinal contour. BONES/JOINTS: Unremarkable. No acute fracture. TUBES, LINES AND DEVICES: Left-sided cardiac pacemaker. RAD/Chest PA and Lateral IMPRESSION: Pulmonary venous congestion. No significant change from the prior exam. [facility]
== END | disposition home or self-care (01) ==
LOC: RAD 14:08
PROVIDERS: PCP Family Medicine; Referring Provider Physician Assistant Medical; Visit Provider Physician Assistant Medical
DX: I48.19 Other persistent atrial fibrillation (principal)
CPT/HCPCS: 71046

== ENCOUNTER 2024-05-16 10:31 | Day surgery (SDC) | payer OTHER, SELFPAY ==
[2024-05-15 09:05] VITALS: BMI 29.4
--- NOTE | 2024-05-16 10:31 | HP_ITS ---
History of Present Illness Details: HUNG LAWSON, is a 63 year old white male with a hx of syncope, PACs/PVCs, atrial fibrillation, wide-complex tachycardia with differential of a ventricular rhythm versus atrial fibrillation with aberrancy, and factor V Leiden deficiency with previous thromboembolic events. Patient was admitted and evaluated at [facility] in October 2021 for symptomatic bradycardia. Echocardiogram on 11/10/2021 showed ejection fraction 60%, mildly enlarged left atrium, mild mitral valve insufficiency, and RVSP of 36 mmHg. Heart catheterization on 11/12/2021 showed single-vessel mild coronary artery disease of the LAD. He underwent pacemaker placement on 11/19/[address] Rios for sick sinus syndrome. He did undergo a DCCV 12/13/22. Pt was hospitalized in February 2023 for near-syncope and atrial fibrillation with RVR. Remote report from 03/04/2023 showed 60% cumulative atrial arrhythmia burden with 2274 high ventricular rate episodes. His metoprolol was reduced on account of orthostatic changes and reduced systolic blood pressure at 70 mmHg. It is noted that he is intolerant to amiodarone. He underwent DC cardioversion successfully and also underwent sotalol loading. In September patient was noted to be in atrial fibrillation. He was not aware of this. Patient was initially scheduled to undergo a cardioversion in November 22, 2023. At that time he was noted to be in sinus rhythm. Patient was seen in the office in December 2023. He had returned to atrial fibrillation at the end of November. He has remained in atrial fibrillation. We did talk about a cardioversion at that time however his was undergoing back surgery and he felt that he needed to take care of her before he pursued this. He is here today to now discuss undergoing a cardioversion. Pt does feel that he is more fatigued with his Afib. His remote checks still indicate Afib. Intake Vital Signs 01/10/2414:28 05/04/2506:48 Height 6 ft 2 in 6 ft 2 in Weight: 229 lb BMI 29.4 BP 126/81 H Blood Pressure Location Lt brachial Position Sitting Respiration 18 Pulse 75 Pulse Source Monitor Pulse Oximetry (%) 94 Intake Visit Reasons: DCCV Discussion/EKG Rheumatology Specialist Required: No Is patient in pain?: No Allergies ciprofloxacin Allergy (Unknown, Verified 05/04/24 13:21) Rashceftriaxone Allergy (Verified 05/04/24 13:21) RashIodinated Contrast Media (contrast dye - iodinated) Allergy (Verified 05/04/24 13:21) Angioedemalinezolid Allergy (Verified 05/04/24 13:21) RashSulfa (Sulfonamide Antibiotics) Allergy (Verified 05/04/24 13:21) Unknownvancomycin Allergy (Verified 05/04/24 13:21) Fever and skin rash Medications ?Medication ?Instructions ?Recorded ?Confirmed ?Type epinephrine 0.3 mg/0.3 mL 0.3 mg (0.3 mL) IM Q10M PRN PRN 02/06/22 05/04/24 Rx injection, auto-injector (EpiPen anaphylaxis #2 ea 2-[place]) fludrocortisone 0.1 mg tablet 0.1 mg PO DAILY hypotension #90 10/05/23 05/04/24 Rx tabs tamsulosin 0.4 mg capsule (Flomax) 0.4 mg PO QHS 10/07/23 05/04/24 History rivaroxaban 20 mg tablet 20 mg PO DAILY blood thinner #90 4 05/04/24 Rx tabs sotalol 120 mg tablet 120 mg PO BID 90 days #180 tabs 02/20/24 05/04/24 Rx rosuvastatin 5 mg tablet 5 mg PO QDAY 05/04/24 05/04/24 History sildenafil 50 mg tablet 50 mg PO QDAY 05/04/24 05/04/24 History Ejection fraction %: 60 Have you fallen in the past year?: No Nurse's Note: patient is on a cholesterol medication, but does not know what it is. 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 Paroxysmal atrial fibrillation Wide-complex tachycardia Asymptomatic premature ventricular contractions Premature atrial contraction Syncope and collapse Hematuria Factor V Leiden Abscess of right thigh DAYNA (acute kidney injury) Coagulopathy Septic shock Fever with exanthematous rash 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 knee joint Atrial fibrillation with RVR Elevated LFTs Acute cystitis Severe sepsis Anemia History of pulmonary embolism History of DVT (deep vein thrombosis) Surgical History History of ankle surgery Status post total right knee replacement Family History Mother Ulcerative colitisGrandfather No problems noted. 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 pets and animals: Yes (cat) Smoking Status: Never smoker alcohol intake: current details: occasional substance use type: does not use caffeine: No ROS Const Const: Positive for fatigue; Negative for weakness, headache(s) or frequent falls Eyes Eyes: Negative for blurry vision ENT ENT: Negative for headache(s), dizziness or Nosebleed/epistaxis Cardio Chest Pain: No Palpitations: No Edema: None Muscle aches with walking: None Resp Respiratory: Negative for SOB with activity, SOB at rest or SOB orthopnea\SOB lying down GI GI: Negative nausea, vomiting, heartburn, bright, red blood in stools or black,tarry stools : Negative for hematuria Neuro Neuro: Negative for dizziness, lightheadedness, near syncope, syncope, frequent falls, headache(s), weakness or blurry vision Endo Endo: Positive for fatigue Cardiology Exam Const Appearance: cooperative, healthy appearing, comfortable and no acute distress Nutritional Appearance: well nourished and overweight Orientation: alert, awake and oriented x3 Head Head: normal to inspection Ears: hearing grossly normal bilaterally Nose: external nose normal Face and Sinus: face symmetric Mouth: moist mucous membranes Eyes General: appearance normal, both eyes and all related structures Eyelids: eyelids normal EOM: EOM intact bilaterally Neck Neck: normal visual inspection and no JVD Carotids: normal carotid upstroke Chest Chest inspection: normal inspection of the chest, symmetric chest movement and normal respiratory effort; Negative cough Auscultation: Bilateral: Clear to Auscultation Cardio Rhythm: irregularly irregular Heart sounds: S1 normal and S2 normal; Negative rub, gallop or murmur GI GI: normal to inspection Neuro General: patient alert, patient awake, patient oriented x3 and CN's II-XI intact bilaterally Skin Skin: no rashes or lesions noted Extremities Pulses: Normal: Right Posterior Tibial Pulse, Left Posterior Tibial Pulse, Right Radial Pulse and Left Radial Pulse Lower Extremity Edema: None: Bilateral Psych Psychological: normal affect Supplemental Info Supplemental Information Echocardiogram 10/2023; Normal LV size. Left ventricular systolic function is normal. The left ventricular ejection fraction is 60 %. Stage 2 diastolic dysfunction. Echocardiogram from 11/10/2021: Interpretation Summary Left ventricular systolic function is normal. The estimated ejection fraction is 60 %. The left atrium is mildly enlarged. Mild (1+) mitral valve insufficiency. Mild tricuspid valve insufficiency. Trivial pulmonic valve insufficiency. Right ventricular systolic pressure estimated to be 36 mmHg. Diastolic function is indeterminate. Echocardiogram from 07/10/2020: Interpretation Summary The study was technically difficult. Left ventricular systolic function is normal. The estimated ejection fraction is 65 %. The left atrium is mildly enlarged. The right atrium is mildly enlarged. Trivial mitral valve insufficiency. Mild tricuspid valve insufficiency. Right ventricular systolic pressure estimated to be 30 mmHg. Unable to assess diastolic dysfunction. Echocardiogram from 12/12/2017: Interpretation Summary Left ventricular systolic function is normal. The estimated ejection fraction is 70 %. The left atrium is mildly enlarged. Trivial mitral valve insufficiency. Trivial tricuspid valve insufficiency. Trivial pulmonic valve insufficiency. Right ventricular systolic pressure estimated to be 30 mmHg. No evidence for diastolic dysfunction. Bubble contrast study negative for right to left interatrial shunt. Heart catheterization from 11/12/2021: CONCLUSIONS Elevated Left Ventricular End Diastolic Pressure Single vessel CAD of the LAD: mild luminal irregularities CORONARY ANGIOGRAPHY DOMINANCE: Co- Dominant LEFT HEART ASSESSMENT Left Ventricular Ejection Fraction: Not assessed Elevated Left Ventricular End Diastolic Pressure LVEDP: 21 mmHg LEFT MAIN: Angiographically normal LEFT ANTERIOR DESCENDING ARTERY: MID LAD: Mild luminal irregularities (s/p SP) CIRCUMFLEX ARTERY: Angiographically normal RIGHT CORONARY ARTERY: Angiographically normal Stress Test Report 11-13-2021 Impression: 1. Technically inadequate (percent predicted maximal heart rate less than 85%) exercise tolerance test 2. Peak exercise ECG with continued somatic/motion artifact with continued nonspecific ST/T wave abnormality at the heart rate achieved 3. There was a rare PVC during exercise and recovery 24-hour Holter monitor from August 2021: Minimum heart rate 30 bpm at 11:03 AM. Average heart rate 43 beats minute. Maximal heart rate 66 bpm at 7:18 AM. Ventricular ectopy 0.0%. Supraventricular ectopy 0.1%. Atrial fibrillation 0.0%. Longest R to R interval 2.1 seconds. The patient kept a 24-hour diary and noted 1 episode of chest pain/palpitations which did not correlate with the scan. Labs: HDL Cholesterol 40 mg/dL (40-) Cholesterol 214 mg/dL (<=200) H Triglycerides 227 mg/dL (-199) H Diagnostics: Electrocardiogram Pacemaker Check Chest X-Ray Pulmonary: No Data to Display Past Visits: Cardiology Visit 05/04/24 Assessment and Plan Assessment and Plan (1) Persistent atrial fibrillation: Status: Acute Plan: Patient is now in persistent atrial fibrillation. He does feel that he is more fatigued. Will pursue a cardioversion. If this is not successful would consider an EP referral for possible ablation. For now he will continue with his sotalol and Xarelto. (2) Wide-complex tachycardia: Status: Chronic Plan: While he was in the hospital in October 2021 he had a syncopal episode. He proceeded with heart catheterization that showed single-vessel coronary artery of the LAD with mild luminal irregularities. Medical therapy was recommended. He later proceeded with permanent pacemaker placement by Dr. Rios at [facility]. We will monitor any further activity of this on his device checks (3) Presence of cardiac pacemaker: Status: Chronic Plan: Pacemaker is functioning appropriately. Pt will continue with regular scheduled pacemaker interrogations. Orders: Orders 12 Lead EKG performed by [facility] Today I48.92 - Unspecified atrial flutter Cardioversion Today I48.19 - Other persistent atrial fibrillation Chest PA and Lateral Today I48.19 - Other persistent atrial fibrillation Patient Instructions: Your procedure is schedule for 05/16 at 1215. You will arrive at 1045 Nothing to eat or drink after midnight. With a small sip of water take your morning medications (sotalol and xarelto) You will need a residential driver. Get CXR done today Plan Details Additional Comments: Thank you for allowing us to participate in the patients plan of care, if you have any questions please do not hesitate to call. This note was generated using a voice recognition system and there may be incorrect words, spelling or punctuation that were not noted when reviewing the office note prior to saving. Portions of this documentation were copied and pasted from previous office visit notes to provide a cohesive continuity of the history. The note has been reviewed, edited, and updated, as necessary. Follow Up: 05/04/24 (needs an EKG 1 wk after 05/16) 05/04/24 (keep as is with me) Coding Level of Care Code Off vis,est,level 4 Diagnoses Persistent atrial fibrillation I48.19 Wide-complex tachycardia I47.2 Presence of cardiac pacemaker Z95.0 Coding Level of Care Code Off vis,est,level 4 Diagnoses Persistent atrial fibrillation I48.19 Wide-complex tachycardia I47.2 Presence of cardiac pacemaker Z95.0 Clinical Quality Measures Falls Risk Screening/Assistive Devices Have you fallen in the past year?: No Cardiac Ejection fraction %: 60
--- NOTE | 2024-05-16 12:48 | PRO.PCM_ITS ---
Procedures Pulmonary Pulmonary Procedures /Diagnostic Testin Con Sedation Non-invasive Procedural Procedure Information Date of Procedure: 05/16/24 Description of procedure: CONSCIOUS SEDATION REPORT DATE OF SERVICE: May 16, 2024 BRIEF HISTORY OF PRESENT ILLNESS: The patient is a 63-year-old male who presented to [facility] for elective outpatient cardioversion due to a history of atrial fibrillation. The patient did undergo a prior cardioversion in April 2023, during which time, propofol was utilized for sedation purposes. The patient denied any prior anesthetic complications. He is systemically anticoagulated on Xarelto. His last surface echocardiogram demonstrated an ejection fraction of approximately 60%. PHYSICAL EXAMINATION: VITAL SIGNS: Reviewed and were acceptable. GENERAL: The patient is a male, in no apparent distress, speaking in full sentences. HEENT: Normocephalic, atraumatic. Mucous membranes are moist and pink. Good mouth opening noted. Trachea is midline. Good neck mobility. CHEST: S1, S2 irregularly irregular. No murmurs, rubs or gallops were noted. LUNGS: Clear to auscultation bilaterally without appreciable wheezes, rales or rhonchi. ABDOMEN: Soft, nontender, nondistended. Positive bowel sounds. EXTREMITIES: There is no clubbing, cyanosis or edema. ASA Class: II DESCRIPTION OF PROCEDURE: After confirmation of informed consent, the patient's anesthesia plan was reviewed in detail. Propofol was chosen. Risks and benefits were reviewed and the patient agreed to proceed. At 1220, the patient was given 50 mg of propofol. The patient achieved an appropriate level of sedation and was given a 200 joule synchronized cardioversion by Dr. Cano at the bedside. This was successful in achieving normal sinus rhythm. The patient was monitored until 1235, at which time he reached his baseline mental status and function. The patient tolerated the procedure well. COMPLICATIONS: None ESTIMATED BLOOD LOSS: None RECOMMENDATIONS: Okay to recover in usual fashion.
--- NOTE | 2024-05-16 13:01 | CARDIOVERS ---
Cardioversion Cardioversion: DC cardioversion 63-year-old man with a history of atrial fibrillation status post permanent pacemaker implantation. Placed patient has been on anticoagulation for minimum of 4 weeks. Patient was seen by Dr. Moeller of the critical care division. Informed consent was obtained. Anterior-posterior pads were applied. The patient was then administered 50 mg of intravenous propofol. 200 J of synchronized biphasic DC cardioversion energy were applied with prompt reversal to sinus rhythm. Patient tolerated the procedure well. Conclusion: Successful DC cardioversion from atrial fibrillation to sinus rhythm. AV sequential pacing noted. Follow-up as per office protocol.
== END 2024-05-16 13:20 | disposition home or self-care (01) ==
PROVIDERS: PCP Family Medicine; Referring Provider Internal Medicine Cardiovascular Disease; Visit Provider Internal Medicine Cardiovascular Disease
DX: I48.19 Other persistent atrial fibrillation (principal); I47.29 Other ventricular tachycardia; E66.3 Overweight; Z86.718 Personal history of other venous thrombosis and embolism; Z86.711 Personal history of pulmonary embolism; Z95.0 Presence of cardiac pacemaker; Z79.899 Other long term (current) drug therapy; Z79.01 Long term (current) use of anticoagulants; Z68.29 Body mass index [BMI] 29.0-29.9, adult
CPT/HCPCS: 92960; 93005

== ENCOUNTER → 2024-07-26 | Outpatient (CLI) | payer OTHER, SELFPAY ==
[2024-07-26 10:51] LABS: ALB/GLOB Ratio 1.2 RATIO (0.9-2.4); AST(SGOT) 18 U/L (<=37); Alanine Aminotransfer ALT/SGPT 11 U/L (<=46); Alkaline Phosphatase 105 U/L (40-129); Anion Gap 12 (5-15); BUN 16 mg/dL (4-19); BUN/Creat Ratio 16.2 RATIO (10-20); Calcium,Total 9.1 mg/dL (7.6-11.0); Carbon Dioxide 24.3 mmol/L (21.0-32.0); Chloride 105 mmol/L (98-108); Cholesterol 157 mg/dL (<=200); EST Glomerular Filtration Rate 85 (>60); Globulin 3.3 g/dL (2.2-4.2); Glucose 88 mg/dL (70-99); High Density Lipoprotein 43 mg/dL; Low Density Lipoprotein Calc. 92 mg/dL; Potassium 4.5 mmol/L (3.3-5.1); Protein, Total 7.3 g/dL (5.9-8.4); Sodium Level 141 mmol/L (133-145); Total Bilirubin 0.84 mg/dL (0.00-1.30); Triglycerides 109 mg/dL; Very Low Density Lipoprotein 22 mg/dL (5-40); cholesterol:hdl ratio screen 3.62
== END | disposition home or self-care (01) ==
LOC: MFPLAB 09:44
PROVIDERS: PCP Family Medicine; Referring Provider Family Medicine; Visit Provider Family Medicine
DX: E78.00 Pure hypercholesterolemia, unspecified (principal)
CPT/HCPCS: 36415; 80053; 80061

== ENCOUNTER → 2025-01-24 | Outpatient (CLI) | payer OTHER, SELFPAY ==
[2025-01-24 13:23] LABS: AST(SGOT) 21 U/L (<=37); Alanine Aminotransfer ALT/SGPT 17 U/L (<=46); Albumin, Serum 4.1 g/dL (3.4-4.8); Alkaline Phosphatase 103 U/L (40-129); Anion Gap 8 (5-15); BUN 15 mg/dL (4-19); BUN/Creat Ratio 15.9 RATIO (10-20); Calcium,Total 9.2 mg/dL (7.6-11.0); Carbon Dioxide 28.0 mmol/L (21.0-32.0); Chloride 104 mmol/L (98-108); Globulin 2.9 g/dL (2.2-4.2); Glucose 96 mg/dL (70-99); Potassium 4.7 mmol/L (3.3-5.1)
[2025-01-24 13:52] LABS: Cholesterol 137 mg/dL (<=200); Low Density Lipoprotein Calc. 79 mg/dL; Triglycerides 93 mg/dL; Very Low Density Lipoprotein 19 mg/dL (5-40); cholesterol:hdl ratio screen 3.40
== END | disposition home or self-care (01) ==
LOC: MFPLAB 10:47
PROVIDERS: PCP Family Medicine; Visit Provider Family Medicine
DX: E78.00 Pure hypercholesterolemia, unspecified (principal)
CPT/HCPCS: 36415; 80053; 80061

== ENCOUNTER 2025-02-10 21:30 | Emergency (ER) | payer OTHER, SELFPAY ==
[2025-02-10 21:30] VITALS: BP 131/110; PULSE 46; RESP 12; TEMP 36.4; O2SAT 97; BMI 30.2
--- OUTSIDE RECORDS SUMMARY | 2025-02-10 21:58 | XMS RPT_ITS | CCD ---
Author Organization [facility] Care Team Providers Care Television Presenter Name Role Phone JACKY FERNANDO Unavailable Unavailable SHRADDHA, MARNI Unavailable Unavailable SARAVANAN ALLEN (PA-C) Unavailable Unavail able SHRADDHA, MARNI Unavailable Unavailable SHRADDHA, MARNI Unavailable Unavailable Dc Glez Unavailable Unavailable Dc Glez Unavailable Unavailable Dc Glez Unavailable Unavailable Stuart Mckeon Unavailable Unavailable Stuart Mckeon Unavailable Unavailable Stuart Mckeon Unavailable Unavailable Dr. Dc Glez Primary Care Provider Dr. Dc Glez Referring Provider Roof TUBE SPLICER, TUBE SPLICER-C Robbie Rivera Attending Provider Dr. Dhruv De La Fuente Emergency Provider Dr. America Lei Admit Provider Dr. America Lei Other Provider Dr. Dc Mazariegos Other Provider Dr. Dhruv Karimi Attending Provider Dr. Dhruv Karimi Other Provider Dr. Dc Mazariegos Attending Provider Dr. America Lei Attending Provider Dr. Jackie Castano Other Provider Dr. Jackie Castano Attending Provider Dr. Jackie Castano Attending Provider Francisca Longoria Attending Provider Unavailable Dr. Brayden Melendez Emergency Provider [phone] Talat Rios Other Provider Dr. Dc Glez Primary Care Provider Dr. Dhruv De La Fuente Emergency Provider Dr. America Lei Admit Provider Dr. America Lei Other Provider Dr. Dc Mazariegos Other Provider Dr. Dhruv Karimi Attending Provider Dr. Dhruv Karimi Other Provider Dr. Dc Mazariegos Attending Provider Dr. Jackie Castano Attending Provider Dr. Jackie Castano Other Provider Dr. Dc Glez Referring Provider Francisca Longoria Attending Provider Unavailable Dr. Brayden Melendez Emergency Provider Dr. Talat Rios Other Provider Dr. Dc Mazariegos Referring Provider Dr. Dc Glez Primary Care Provider Dr. Dc Glez Referring Provider Francisca Longoria Attending Provider Unavailable Roof TUBE SPLICER, TUBE SPLICER-C Robbie Rivera Attending Provider Dr. Dc Glez Primary Care Provider Dr. Trae Cano Attending Provider Dr. Trae Cano Referring Provider Dr. Dc Glez Referring Provider Francisca Longoria Attending Provider Unavailable Roof TUBE SPLICER, TUBE SPLICER-C Robbie Rivera Attending Provider Dr. Dc Glez Primary Care Provider Dr. Dc Glez Referring Provider Dr. Trae Cano Attending Provider Dr. Trae Cano Other Provider Dr. Trae Cano Referring Provider Glez, Dr. Dc Primary Care Provider Jerome, Dr. Larkin Attending Provider Jerome, Dr. Larkin Other Provider Jerome, Dr. Larkin Referring Provider Dr. Avinash Wilson Attending Provider Amaris, Dr. Irwin Referring Provider Amaris, Dr. Irwin Primary Care Provider Jerome, Dr. Larkin Attending Provider Jerome, Dr. Larkin Referring Provider Dr. Rene Gunter Emergency Provider Castellano, Dr. Davis Admit Provider Unavailabl e de Jens, Dr. Davis Referring Provider Unavail able de Jens, Dr. Davis Other Provider Unavailabl e Julisa Banda Other Provider Unavailable Sebastian, Dr. Choe Other Provider Unavailable Daniel, Dr. Connell Other Provider Dr. Olivier Bullock Other Provider Dr. Claude Carcamo Other Provider Unavailable Jerome, Dr. Larkin Other Provider Dr. Talat Rios Other Provider Dr. Dhruv Rosas Other Provider Dr. Reece Preston Attending Provider Dr. Reece Preston Other Provider Dr. Shlomo Neely Other Provider Dr. Memo Gallo Other Provider Dr. Jeni Harkins Other Provider Dr. Kike Ritchie Other Provider Dr. Dc Mazariegos Other Provider Dr. Varinder Luciano Other Provider Dr. Butch Gamble Other Provider Dr. Trevor Prieto Other Provider Roof TUBE SPLICER, TUBE SPLICER-C Robbie Rivera Other Provider Howard TUBE SPLICER, TUBE SPLICER-C Julisa Other Provider Kirkpatrick PA, PA Kia Everett Other Provider Dr. Chaparro Gaines Other Provider Dr. Dc Glez Referring Provider Kirkpatrick PA, PA Kia Everett Attending Provider Dr. Sanjiv Bowden Attending Provider Dr. Trae Cano Admit Provider Dr. Dc Glez MD Primary Care Provider Dr. Trae Cano MD Attending Provider Dr. Trae Cano MD Referring Provider Dr. Dc Glez MD Referring Provider Kia Mccarty Attending Provider Amaris CONDON, Dr. Irwin Attending Provider Kai Mccarty Referring Provider Dr. Dc Glez MD Primary Care Provider Dr. Trae Cano MD Attending Provider Dr. Trae Cano MD Referring Provider Dr. Dc Glez MD Referring Provider Kia Mccarty Attending Provider Dr. Trae Cano MD Other Provider Dr. Sanjiv Bowden DO Attending Provider Dr. Dc Glez MD Primary Care Provider Dr. Trae Cano MD Attending Provider Dr. Trae Cano MD Referring Provider Karri Balderas Attending Provider Amaris CONDON, Dr. Irwin Primary Care Provider Jerome CONDON, Dr. Larkin Attending Provider Jerome CONDON, Dr. Larkin Referring Provider STACEY VILLELA Referring Unavailable GLEZDC NAYAK Primary Care Unavailable STACEY VILLELA Referring Unavailable GLEZDC NAYAK Primary Care Unavailable STACEY VILLELA Referring Unavailable STACEY VILLELA Referring Unavailable STACEY VILLELA Referring Unavailable STACEY VILLELA Referring Unavailable STACEY VILLELA Referring Unavailable Amaris CONDON, Dr. Irwin Primary Care Provider Amaris CONDON, Dr. Irwin Referring Provider Amaris CONDON, Dr. Irwin Attending Provider Jerome CONDON, Dr. Larkin Attending Provider Lee CONDON, Dr. Fischer Attending Provider Amaris CONDON, Dr. Irwin Primary Care Physician Amaris CONDON, Dr. Irwin Attending Physician Amaris CONDON, Dr. Irwin Referring Provider Jerome CONDON, Dr. Larkin Attending Physician Lee CONDON, Dr. Fischer Attending Physician Trae Cano Attending Unavailable GlezDc nayak Primary Care Unavailable Jerome, [place] Referring Unavailable Glez, Dc Referring Unavailable Karri Dubois Attending Unavailable Glez, Dc Primary Care Unavailable Jerome, Trae Referring Unavailable Glez, Dc Primary Care Unavailable JeromeTrae Attending Unavailable Glez, Dc Referring Unavailable Glez, Dc Primary Care Unavailable Kia Mccarty Attending Unavail able Sanjiv Bowden Attending Unavailable Jerome, [place] Referring Unavailable Jerome, [place] Consulting Unavailable Glez, Dc Primary Care Unavailable Jerome, [place] Referring Unavailable Glez, Dc Primary Care Unavailable Jerome, Trae Attending Unavailable Glez, Dc Referring Unavailable Glez, Dc Primary Care Unavailable Kia Mccarty Attending Unavail able GlezDc nayak Primary Care Unavailable Jerome, Trae Attending Unavailable Glez, Dc Referring Unavailable Glez, Dc Attending Unavailable Glez, Dc Primary Care Unavailable Jerome, Trae Referring Unavailable Glez, Dc Primary Care Unavailable Jerome, Trae Attending Unavailable SatAmado zuniga Attending Unavailable Glez, Dc Primary Care Unavailable Glez, Dc Referring Unavailable Glez, Dc Referring Unavailable Glez, Dc Attending Unavailable Glez, Dc Primary Care Unavailable Casimiro WALL, Kia Everett Referring Unavail able Kia Mccarty Attending Unavail able Glez, Dc Primary Care Unavailable Jerome, [place] Attending Unavailable Jerome, Trae Referring Unavailable Glez, Dc Primary Care Unavailable Jerome, [place] Referring Unavailable Glez, Dc Primary Care Unavailable Jerome, Trae Attending Unavailable Jermoe, [place] Referring Unavailable Glez, Dc Primary Care Unavailable Jerome, Trae Attending Unavailable Glez, Dc Primary Care Unavailable Jerome, [place] Attending Unavailable Jerome, [place] Referring Unavailable Glez, Dc Primary Care Unavailable Jerome, [place] Attending Unavailable Glez, Dc Referring Unavailable Jerome, Trae Attending Unavailable Glez, Dc Primary Care Unavailable Jerome, [place] Referring Unavailable Glez, Dc Primary Care Unavailable Jerome, [place] Attending Unavailable Jerome, [place] Attending Unavailable Glez, Dc Primary Care Unavailable Jerome, Trae Consulting Unavailable Jerome, Trae Referring Unavailable Allergies Allergy Classification Reported Allergen(s) Allergy Type Date of Onset Reaction(s) Facility (20 sources) ceftriaxone; Translations: [CEFTRIAXONE] Drug Allergy 11-16-19 [facility], Rash [facility] (20 sources) linezolid; Translations: [LINEZOLID] Drug Allergy 11-04-19 AOF, Rash [facility] (20 sources) Sulfonamides (Antibiotic); Translations: [SULFA (SULFONAMIDE ANTIBIOTICS)] Propensity to adverse reactions to drug (disorder) 11-18-19 AOF, Unknown [facility] (20 sources) vancomycin; Translations: [VANCOMYCIN] Drug Allergy 11-04-19 [facility], Fever and skin rash [facility] (20 sources) Triiodobenzoic Acids Allergy to substance 11-15-19 Angioedema [facility] (19 sources) Ciprofloxacin Drug Allergy 11-19-19 Rash [facility] (1 source) ALLERGIES NOT ON FILE; Translations: [ALLERGIES NOT ON FILE] Propensity to adverse reactions (disorder) [facility] Repository (1 source) Ciprofloxacin Drug Allergy 10-12-19 [facility] Repository (1 source) Iodinated Contrast Media Drug allergy (disorder) 10-12-19 [facility] Repository Medications Current Medications Medication Drug Class(es) Dates Sig (Normalized) Sig (Original) [id number] 0.3 ml EPINEPHrine 1 mg/ml auto-injector (18 sources) alpha-Adrenergic Agonist, beta-Adrenergic Agonist, Catecholamine Start: 02-06-2022 rosuvastatin calcium 5 mg oral tablet (8 sources) HMG-CoA Reductase Inhibitor Start: 05-04-2024 take 1 tablet by mouth once daily Start: 05-04-2024 take 1 tablet by flori th once daily Rosuvastatin 5 mg tablet Active 5 mg PO daily May 04, 2024 12:00am sildenafil 50 mg oral tablet (10 sources) Phosphodiesterase 5 Inhibitor Start: 05-04-2024 End: 2024 take 1 tablet by mouth once daily as needed tamsulosin hydrochloride 0.4 mg oral capsule (8 sources) alpha-Adrenergic David Start: 10-07-2023 take 1 capsule by mouth at bedtime Completed/Discontinued Medications Medication Drug Class(es) Dates Sig (Normalized) Sig (Original) acetaminophen 500 mg oral tablet (20 sources) Start: 08-18-2017 End: 08-24-2017 take 2 tablets by mouth every eight hours Acetaminophen 500 MG tablet Discontinued 1000 mg PO EVERY 8 HOURS 90 0 August 18, 2017 12:00am August 24, 2017 12:41pm Start: 08-18-2017 End: 08-24-2017 take 1000 mg by mouth every eight hours Acetaminophen Discontinued 1000 MG PO EVERY 8 HOURS 90 August 18, 2017 12:00am August 24, 2017 12:41pm amiodarone hydrochloride 200 mg oral tablet (20 sources) Antiarrhythmic Start: 11-10-2021 End: 11-13-2021 take 1 tablet by mouth twice daily Amiodarone 200 mg tablet Discontinued 200 mg PO TWICE A DAY November 10, 2021 7:26pm November 13, 2021 1:11pm Start: 09-23-2021 End: 11-10-2021 take 1 tablet by mouth once daily Amiodarone 200 mg tablet Discontinued 200 mg PO DAILY 60 11 September 23, 2021 11:54am November 10, 2021 7:26pm Start: 01-22-2021 End: 09-23-2021 take 1 tablet by mouth twice daily Amiodarone 200 mg tablet Discontinued 200 mg PO TWICE A DAY 60 11 March 26, 2021 10:30am September 23, 2021 11:54am B-Complex With Vitamin C (Maynard per B Complex-Vitamin C) tablet (20 sources) Start: 04-28-2018 End: 09-29-2021 B-Complex With Vitamin C (Maynard per B Complex-Vitamin C) tablet Discontinued 1 {tbl} PO DAILY April 28, 2018 1:00am September 29, 2021 9:48am Start: 04-28-2018 End: 09-29-2021 take 1 tablet by mouth once daily B-Complex With Vitamin C (Super B Complex-Vitamin C) tablet Discontinued 1 TABLET PO DAILY April 28, 2018 12:00am September 29, 2021 8:48am Start: 04-28-2018 End: 09-29-2021 take 1 tablet by mouth once daily B-Complex With Vitamin C (Super B Complex-Vitamin C) tablet Discontinued 1 TABLET PO DAILY April 28, 2018 1:00am September 29, 2021 9:48am Start: 04-28-2018 take 1 tablet by flori th once daily B-Complex With Vitamin C (Super B Complex-Vitamin C) tablet Active 1 TABLET PO DAILY April 28, 2018 1:00am cefTRIAXone (20 sources) Cephalosporin Antibacterial Start: 10-09-2017 End: 10-12-2017 Ceftriaxone Discontinued October 08, 2017 11:00pm October 12, 2017 1:17pm Start: 10-09-2017 End: 10-12-2017 Ceftriaxone Discontinued Sep 12:00am October 12, 2017 2:17pm ciprofloxacin 250 mg oral tablet (20 sources) Quinolone Antimicrobial Start: 11-17-2021 End: 11-18-2021 take 1 tablet by mouth twice daily Ciprofloxacin Hcl 250 mg tablet Discontinued 250 mg PO .COMPLEX 6 0 November 17, 2021 9:07am November 18, 2021 8:20am 250 mg orally take 1 tab by mouth twice daily for 3 days.; diphenhydrAMINE hydrochloride 25 mg oral capsule (20 sources) Histamine-1 Receptor Antagonist Start: 11-14-2021 End: 11-20-2021 take 1 capsule by mouth three times daily as needed Diphenhydramine Hcl (Benadryl) 25 mg capsule Discontinued 25 mg PO THREE TIMES A DAY as needed for allergies November 19, 2021 1:21pm November 20, 2021 9:08am 0.8 ml enoxaparin sodium 100 mg/ml prefilled syringe (20 sources) Low Molecular Weight Heparin Start: 08-17-2017 End: 08-26-2017 Enoxaparin 80 MG/0.8 ML syringe Discontinued 80 mg SC EVERY 12 HOURS 28 0 August 17, 2017 12:00am August 26, 2017 11:39am famotidine 20 mg oral tablet (20 sources) Histamine-2 Receptor Antagonist Start: 11-14-2021 End: 11-20-2021 take 1 tablet by mouth twice daily as needed for gastroesophageal reflux disease Famotidine 20 mg tablet Discontinued 20 mg PO TWICE A DAY as needed for reflux November 19, 2021 1:21pm November 20, 2021 9:08am fludrocortisone acetate 0.1 mg oral tablet (20 sources) Start: 12-26-2020 End: 01-07-2021 take 0.2 mg by mouth once daily Fludrocortisone Discontinued 0.2 MG PO DAILY 90 December 26, 2020 10:59am January 07, 2021 10:53am Start: 03-03-2018 End: 07-26-2024 take 1 tablet by mouth once daily Fludrocortisone 0.1 mg tablet Discontinued 0.1 mg PO DAILY 90 October 05, 2023 11:25am July 26, 2024 12:54pm hypotension Start: 02-27-2018 End: 02-28-2018 take 1 tablet by mouth once daily Fludrocortisone 0.1 mg tablet Discontinued 0.1 mg PO DAILY 30 February 27, 2018 1:00am February 28, 2018 3:37pm metoprolol tartrate 25 mg oral tablet (20 sources) beta-Adrenergic David Start: 03-12-2023 End: 05-14-2023 take 1 tablet by mouth twice daily Metoprolol Tartrate 25 mg tablet Discontinued 25 mg PO TWICE A DAY 180 April 15, 2023 4:07pm May 14, 2023 4:07pm Start: 08-13-2022 End: 03-12-2023 take 1 tablet by mouth twice daily Metoprolol Tartrate 50 mg tablet Discontinued 50 mg PO TWICE A DAY 180 August 13, 2022 4:21pm March 12, 2023 3:52pm Start: 11-20-2021 End: 08-13-2022 take 1 tablet by mouth twice daily Metoprolol Tartrate 25 mg tablet Discontinued 25 mg PO TWICE A DAY 180 March 03, 2022 1:38pm August 13, 2022 4:24pm Start: 09-29-2021 End: 11-13-2021 take 1 tablet by mouth twice daily Metoprolol Tartrate 25 mg tablet Discontinued 25 mg PO TWICE A DAY 180 September 29, 2021 10:23am November 13, 2021 1:11pm Start: 09-23-2021 End: 09-29-2021 take 1 tablet by mouth twice daily Metoprolol Tartrate 50 mg tablet Discontinued 50 mg PO TWICE A DAY 180 September 23, 2021 11:54am September 29, 2021 10:24am Start: 01-29-2021 End: 09-23-2021 take 1 tablet by mouth twice daily Metoprolol Tartrate 100 mg tablet Discontinued 100 mg PO TWICE A DAY 180 January 29, 2021 10:10am September 23, 2021 11:54am Start: 01-22-2021 End: 01-29-2021 take 2 tablets by mouth twice daily Metoprolol Tartrate 50 mg tablet Discontinued 100 mg PO TWICE A DAY 180 January 22, 2021 12:02pm January 29, 2021 10:11am Start: 01-22-2021 End: 01-29-2021 take 100 mg by mouth twice daily Metoprolol Tartrate Discontinued 100 MG PO TWICE A DAY 180 January 22, 2021 12:02pm January 29, 2021 10:11am Start: 03-08-2018 End: 01-22-2021 take 1 tablet by mouth twice daily Metoprolol Tartrate 50 mg tablet Discontinued 50 mg PO TWICE A DAY 180 May 12, 2020 8:29am January 22, 2021 12:08pm Start: 02-17-2018 End: 03-08-2018 take 1 tablet by mouth twice daily Metoprolol Tartrate 25 mg tablet Discontinued 25 mg PO TWICE A DAY 60 February 17, 2018 1:00am March 08, 2018 4:21pm midodrine hydrochloride 5 mg oral tablet (20 sources) alpha-Adrenergic Agonist Start: 02-28-2018 End: 03-03-2018 take 1 tablet by mouth three times daily Midodrine 5 mg tablet Discontinued 5 mg PO THREE TIMES A DAY 90 February 28, 2018 3:37pm March 03, 2018 11:38am nitrofurantoin, macrocrystals 100 mg oral capsule (20 sources) Nitrofuran Antibacterial Start: 11-18-2021 End: 01-01-2022 take 1 capsule by mouth twice daily at mealtime Nitrofurantoin Macrocrystal 100 mg capsule Discontinued 100 mg PO .COMPLEX 6 November 18, 2021 8:49am January 01, 2022 10:00am 100 mg orally take 1 cap by mouth twice daily for 3 days; must administer with a meal/food omeprazole 40 mg delayed release oral capsule (20 sources) Proton Pump Inhibitor Start: 12-11-2017 End: 02-02-2018 take 1 capsule by mouth once daily Omeprazole 40 MG capsule,delayed release(DR/EC) Discontinued 40 mg PO DAILY December 11, 2017 12:00am February 02, 2018 5:03pm GERD predniSONE 20 mg oral tablet (20 sources) Start: 09-18-2022 End: 10-15-2022 take 2 tablets by mouth once daily Prednisone 20 mg tablet Discontinued 40 mg PO DAILY 8 September 18, 2022 12:00am October 15, 2022 2:20pm Start: 09-18-2022 End: 10-15-2022 take 40 mg by mouth once daily Prednisone Discontinued 40 MG PO DAILY September 18, 2022 12:00am October 15, 2022 2:20pm Start: 02-06-2022 End: 10-15-2022 take 1 tablet by mouth once daily Prednisone 50 mg tablet Discontinued 50 mg PO DAILY 5 5 0 February 06, 2022 4:00pm October 15, 2022 2:20pm Start: 11-14-2021 End: 11-20-2021 take 3 tablets by mouth once daily as needed Prednisone 20 mg tablet Discontinued 60 mg PO DAILY as needed for Allergy Symptoms November 19, 2021 1:21pm November 20, 2021 9:08am Start: 11-14-2021 End: 11-20-2021 take 60 mg by mouth once daily Prednisone Discontinued 60 MG PO DAILY November 19, 2021 1:21pm November 20, 2021 9:08am Start: 02-02-2018 End: 04-28-2018 take 1 tablet by mouth every other day Prednisone 5 mg tablet Discontinued 5 mg PO every other day February 02, 2018 1:00am April 28, 2018 3:03pm Start: 12-11-2017 End: 01-31-2018 take 1 tablet by mouth once daily Prednisone 10 MG tablet Discontinued 10 mg PO DAILY December 11, 2017 12:00am January 31, 2018 5:37pm rash This upcoming tuesday, wean to 5 rivaroxaban 20 mg oral tablet (20 sources) Factor Xa Inhibitor Start: 01-29-2021 End: 05-29-2024 take 1 tablet by mouth once daily Rivaroxaban 20 mg tablet Discontinued 20 mg PO DAILY 90 3 October 31, 2023 12:32pm May 29, 2024 11:56am blood thinner Start: 12-12-2017 End: 01-31-2018 take 1 tablet by mouth twice daily at mealtime, then take 1 tablet by mouth once daily Rivaroxaban 15 MG tablet Discontinued 15 mg PO TWICE DAILY WITH MEALS 41 0 December 12, 2017 12:00am January 31, 2018 5:36pm next dose tonight. Continue until 21 days total therapy complete, after which switch to once daily dose. Start: 12-12-2017 End: 01-29-2021 take 1 tablet by mouth twice daily Rivaroxaban 20 MG tablet Discontinued 20 mg PO DAILY 30 0 December 12, 2017 12:00am January 29, 2021 10:11am do not start this until you have completed the 21 day twice daily dose. sotalol hydrochloride 120 mg oral tablet (20 sources) Antiarrhythmic Start: 08-01-2023 End: 07-02-2024 take 1 tablet by mouth twice daily Sotalol 120 mg tablet Discontinued 120 mg PO TWICE A DAY 14 90 July 02, 2024 10:09am July 02, 2024 10:11am small quantity until mail order arrives Start: 05-14-2023 End: 08-01-2023 take 1 tablet by mouth twice daily Sotalol 80 mg tablet Discontinued 80 mg PO TWICE A DAY 180 3 May 16, 2023 3:47pm May 20, 2023 10:15am traMADol hydrochloride 50 mg oral tablet (20 sources) Opioid Agonist Start: 08-05-2017 End: 08-18-2017 take 2 tablets by mouth every six hours as needed for pain Tramadol 50 MG tablet Discontinued 100 mg PO EVERY 6 HOURS NEEDED as needed for Mod-Severe Pain (4-10/10) August 05, 2017 12:00am August 18, 2017 7:45am Start: 08-05-2017 End: 08-18-2017 take 100 mg by mouth every six hours as needed Tramadol Discontinued 100 MG PO EVERY 6 HOURS NEEDED August 05, 2017 12:00am August 18, 2017 7:45am Vancomycin (20 sources) Glycopeptide Antibacterial Start: 10-09-2017 End: 10-12-2017 Vancomycin Discontinued October 08, 2017 11:00pm October 12, 2017 1:17pm Start: 10-09-2017 End: 10-12-2017 Vancomycin Discontinued 2017 12:00am October 12, 2017 2:17pm warfarin sodium 5 mg oral tablet (20 sources) Vitamin K Antagonist Start: 09-21-2017 End: 10-09-2017 take 1 tablet by mouth once daily Warfarin (Jantoven) 5 MG tablet Discontinued 5 mg PO DAILY 2 0 September 21, 2017 12:00am October 09, 2017 10:38am start 09/22/2017 Start: 09-05-2013 End: 08-26-2017 take 1 tablet by mouth once daily Warfarin 5 MG tablet Discontinued 5 mg PO DAILY September 05, 2013 12:00am August 26, 2017 1:32pm BLOOD CLOTS Problems Active Problems Problem Classification Problem Date Documented Date Episodic/Chronic Acute and unspecified renal failure (2 sources) Acute kidney failure, unspecified; Translations: [Acute kidney failure with tubular necrosis] Onset: 11-03-2017 Episodic Allergic reactions (16 sources) Generalized skin eruption due to drugs and medicaments taken internally; Translations: [Allergic reaction to drug] Onset: 11-16-2017 09-18-2022 Episodic Cardiac dysrhythmias (20 sources) Ventricular premature beats; Translations: [Ventricular premature depolarization] Onset: 01-11-2024 Chronic Comment on above: The patient has a hi story of sick sinus syndrome, appropriately managed with a [employer] dual-chamber pacemaker implanted in 2021. The device is critical for preventing symptomatic bradycardia, particularly as he is on sotalol, which has negative chronotropic effects. The most recent device interrogation in July 2024 confirmed normal device function, adequate lead parameters, and an estimated battery longevity of 5 years. The device also serves as a valuable diagnostic tool, and the last check confirmed episodes of atrial fibrillation with a well-controlled ventricular response, consistent with his clinical picture. The pacemaker is functioning as intended, providing both therapeutic support and monitoring. The patient is a 63- year-old male with symptomatic paroxysmal atrial fibrillation, characterized by fatigue. His rhythm is currently sinus per today's examination. His condition has proven refractory to medical management, as he continues to have breakthrough episodes despite therapy with sotalol and has a documented intolerance to amiodarone. This represents a failure of or intolerance to at least two different antiarrhythmic drug therapies, making him an appropriate candidate for advanced rhythm control strategies.A comprehensive discussion was held regarding the progressive nature of atrial fibrillation and the management options. We reviewed that continuing current medical therapy is an option, but it is likely that his AFib burden and associated symptoms will increase over time, while the efficacy of future ablation may decrease with disease progression. The primary alternative is catheter ablation via pulmonary vein isolation. The rationale, procedural details, risks (including but not limited to groin hematoma, stroke, cardiac perforation, phrenic nerve injury, and atrioesophageal fistula), and benefits (primarily symptom improvement and potential cessation of sotalol) were reviewed in detail.The patient's stroke risk is significantly elevated, with a [id number] score of 2 (S2 = prior thromboembolic event). Furthermore, his underlying Factor V Leiden deficiency confers an independent and high risk of thromboembolism. It was explicitly stated and understood by the patient that catheter ablation is a strategy for symptom control and is not curative, and that lifelong anticoagulation with Xarelto will be required regardless of the procedure's outcome. The patient is deemed a good candidate for the procedure given his otherwise good health and cardiac function. After thorough review, the patient verbalized understanding and elected to proceed with a referral for catheter ablation.Plan:I discussed with him the risk and benefits of A-fib ablation. He is agreeable to proceed.Therapeutics/Medications:Continue Xarelto for stroke prophylaxis. Emphasized the critical importance of adherence and to hold only under the explicit direction of the proceduralist.Continue sotalol for rhythm control pending the ablation procedure. Potentially patient may be able to come off antiarrhythmic drug therapy post ablation and continue on beta-blockers alone.Referral:Will place a referral to Dr. Cordero at [facility] for consultation and scheduling of a catheter ablation for atrial fibrillation. Cardiac dysrhythmias (20 sources) Tachycardia, unspecified; Translations: [Bradycardia] Onset: 11-03-2017 Episodic Coagulation and hemorrhagic disorders (20 sources) Activated protein C resistance; Translations: [Factor V Leiden mutation] Onset: 11-16-2017 Chronic Conditions associated with dizziness or vertigo (20 sources) Lightheadedness; Translations: [Dizziness and giddiness] 04-09-2022 Episodic Conduction disorders (20 sources) Cardiac pacemaker in situ; Translations: [Presence of cardiac pacemaker] Chronic Comment on above: Normal pacemaker fun ction. Deficiency and other anemia (1 source) Iron deficiency anemia secondary to blood loss (chronic); Translations: [Iron deficiency anemia secondary to blood loss (chronic)] Onset: 11-16-2017 Chronic Diseases of white blood cells (20 sources) Elevated white blood cell count, unspecified; Translations: [Eosinophilia] Onset: 11-03-2017 11-22-2021 Chronic Disorders of lipid metabolism (1 source) Pure hypercholesterolemia, unspecified; Translations: [Pure hypercholesterolemia, unspecified] Onset: 07-30-2024 Chronic External Injury - Adverse effects of medical drugs (1 source) Adverse effect of unspecified drugs, medicaments and biological substances, initial encounter; Translations: [Adverse effect of unspecified drugs, medicaments and biological substances, initial encounter] Onset: 11-16-2017 Fluid and electrolyte disorders (1 source) Hyperosmolality and hypernatremia; Translations: [Hyperosmolality and hypernatremia] Onset: 11-03-2017 Episodic Genitourinary symptoms and ill-defined conditions (20 sources) Other polyuria; Translations: [Blood in urine] Onset: 11-03-2017 10-20-2018 Episodic Nonspecific chest pain (20 sources) Left sided chest pain; Translations: [Chest pain, unspecified] 12-30-2020 Episodic Nutritional deficiencies (2 sources) Moderate protein-calorie malnutrition; Translations: [Mild protein-calorie malnutrition] Onset: 11-16-2017 Chronic Open wounds of head; neck; and trunk (20 sources) Scalp laceration; Translations: [Laceration without foreign body of scalp, initial encounter] Episodic Osteoarthritis (2 sources) Unilateral primary osteoarthritis, left knee; Translations: [Unilateral primary osteoarthritis, left knee] Onset: 05-11-2024 Chronic Other aftercare (15 sources) Long-term 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 anticoagulant; Translations: [director long term care (current) use of anticoagulants] 03-12-2023 Episodic Other aftercare (17 sources) Drug therapy finding; Translations: [Other group home (current) drug therapy] 11-21-2021 Episodic Other aftercare (7 sources) Other group home (current) drug therapy; Translations: [Long-term (current) use of other medications] Episodic Other aftercare (7 sources) halfway (current) use of anticoagulants; Translations: [Long-term (current) use of anticoagulants] Episodic Other aftercare (5 sources) Long-term 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 amiodarone; Translations: [Other director long term care (current) drug therapy] 11-21-2021 Episodic Other circulatory disease (1 source) Hemorrhage, not elsewhere classified; Translations: [Hemorrhage, not elsewhere classified] Onset: 11-16-2017 Episodic Other circulatory disease (11 sources) Chronic hypotension; Translations: [Other hypotension] 03-12-2023 Episodic Other circulatory disease (4 sources) Other hypotension; Translations: [Chronic hypotension] 03-12-2023 Episodic Other circulatory disease (7 sources) Orthostatic hypotension; Translations: [Orthostatic hypotension] 07-11-2024 Episodic Other injuries and conditions due to external causes (20 sources) Angioneurotic edema, initial encounter; Translations: [Angioedema with urticaria due to drug] 11-22-2021 Episodic Other liver diseases (1 source) Inflammatory liver disease, unspecified; Translations: [Inflammatory liver disease, unspecified] Onset: 11-16-2017 Chronic Other liver diseases (1 source) Nonspecific elevation of levels of transaminase and lactic acid dehydrogenase [LDH]; Translations: [Nonspecific elevation of levels of transaminase and lactic acid dehydrogenase (ldh)] Onset: 11-03-2017 Episodic Other lower respiratory disease (2 sources) Dyspnea on exertion; Translations: [Other forms of dyspnea] Episodic Other lower respiratory disease (20 sources) Dyspnea; Translations: [Dyspnea, unspecified] 12-30-2020 Episodic Other nutritional; endocrine; and metabolic disorders (11 sources) H/O: endocrine disorder; Translations: [Personal history of other endocrine, nutritional and metabolic disease] 03-12-2023 Episodic Other nutritional; endocrine; and metabolic disorders (3 sources) Personal history of other endocrine, nutritional and metabolic disease; Translations: [Personal history of other endocrine, metabolic, and immunity disorders] 03-12-2023 Episodic Residual codes; unclassified (2 sources) Hypersomnia; Translations: [Hypersomnia, unspecified] Chronic Residual codes; unclassified (1 source) Hypersomnia, unspecified; Translations: [Hypersomnia, unspecified] Chronic Respiratory failure; insufficiency; arrest (1 source) Acute respiratory failure with hypoxia; Translations: [Acute respiratory failure with hypoxia] Onset: 11-05-2017 Episodic Septicemia (except in labor) (20 sources) Septic shock; Translations: [Sepsis, unspecified organism] 10-20-2018 Episodic Skin and subcutaneous tissue infections (20 sources) Cutaneous abscess, unspecified; Translations: [Abscess of right thigh] Onset: 11-03-2017 10-20-2018 Episodic Syncope (20 sources) Near syncope; Translations: [Syncope and collapse] Episodic Unclassified (3 sources) Other specified abnormal findings of blood chemistry; Translations: [Abnormal coagulation profile] Onset: 11-03-2017 Episodic Unclassified (7 sources) I48.19 - Other persistent atrial fibrillation Unclassified (1 source) Other persistent atrial fibrillation; Translations: [Other persistent atrial fibrillation] Onset: 2024 Urinary tract infections (20 sources) Acute cystitis; Translations: [Acute cystitis without hematuria] 10-20-2018 Episodic Past or Other Problems Problem Classification Problem Date Documented Date Episodic/Chronic Other non-traumatic joint disorders (3 sources) Pain in left knee; Translations: [Pain in left knee] Onset: 05-09-2024 Episodic Other non-traumatic joint disorders (2 sources) Stiffness of left knee, not elsewhere classified; Translations: [Stiffness of left knee, not elsewhere classified] Onset: 05-11-2024 Episodic Residual codes; unclassified (20 sources) History of cardiac catheterization; Translations: [Other specified postprocedural states] Onset: 10-22-2021 11-13-2021 Episodic Comment on above: LEFT MAIN: Angiograp hically normal; LEFT ANTERIOR DESCENDING ARTERY:MID LAD: Mild luminal irregularities (s/p SP);CIRCUMFLEX ARTERY: Angiographically normal; RIGHT CORONARY ARTERY: Angiographically normal per cardia cath Dr. Mazariegos 11/12/21 Residual codes; unclassified (2 sources) Other specified postprocedural states; Translations: [Personal history of surgery to heart and great vessels, presenting hazards to health] Onset: 10-22-2021 03-12-2023 Episodic Unclassified (20 sources) Fever with exanthematous rash 10-20-2018 Results Test Name Value Interpretation Reference Range Facility Cardiology Visit Reporton Cardiology Visit Report [facility] [address] [place] [address] OFFICE VISIT Date of Service: 10/11/24 MR#: [id number] Acct: [id number] Name: HUNG PECK Rep #: [id number] : 1960 Provider: Dr. Amado flores MD Age/Sex: 64/M [place] [facility] [place]: Signed HPI HPI History of Present Illness Surgical H P: No Details: The patient presents for evaluation of persistent atrial fibrillation and to discuss further management options, including catheter ablation. He is a 63-year-old male with a history of paroxysmal atrial fibrillation, sick sinus syndrome status post dual-chamber pacemaker implantation, and Factor V Leyden deficiency requiring lifelong anticoagulation. He has a history of intolerance to amiodarone and is currently managed with sotalol for rhythm control. The patient reports his primary symptom associated with atrial fibrillation is significant fatigue. He denies experiencing palpitations or other distinct cardiac sensations and notes that feeling tired is the main indicator that he is out of sinus rhythm. He continues to experience breakthrough episodes of atrial fibrillation despite being on sotalol, with an increasing burden of arrhythmia over time. Hung Peck is a 63-year-old male who presents to the office today for follow-up for monitoring his cardiovascular health. 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 The patient has a history of bradycardia status post dual-chamber pacemaker implantation on November 19, 2021. He has undergone cardioversion on December 13, 2022 and May 16, 2024. He has a history of intolerance to amiodarone and is currently maintained on sotalol. The last pacemaker evaluation on August 15, 2024, shows 5 years of battery life remaining. The device interrogation noted the patient was in persistent atrial fibrillation with a controlled ventricular rate between 60-70 bpm. Problem list includes: Paroxysmal atrial fibrillation, maintained on sotalol and Xarelto. Sick sinus syndrome, status post dual-chamber pacemaker implantation November 19, 2021 ([employer]). Review of systems: CONSTITUTIONAL: Fatigue, positive RESPIRATORY: Shortness of breath, negative CARDIOVASCULAR: Palpitations, negative GASTROINTESTINAL: Vomiting, negative NEUROLOGICAL: Dizziness, negative HEMATOLOGIC: Easily bleeds, positive Physical examination: GENERAL APPEARANCE: The patient is alert, well-appearing, and in no acute distress. LUNGS: Lungs are clear to auscultation bilaterally. There is no evidence of increased work of breathing. CARDIAC: Auscultation reveals a regular rate and rhythm. No murmurs, rubs, or gallops were appreciated. NEUROLOGICAL: The patient is alert and oriented. Speech is clear and fluent. PSYCHIATRIC: Mood is euthymic. Affect is appropriate to the situation. Behavior is cooperative. 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 Accompanied by: Is patient in pain?: No Allergies ciprofloxacin Allergy (Unknown, Verified 10/11/24 11:59) Rash ceftriaxone Allergy (Verified 10/11/24 11:59) Rash Iodinated Contrast Media (contrast dye - iodinated) Allergy (Verified 10/11/24 11:59) Angioedema linezolid Allergy (Verified 10/11/24 11:59) Rash Sulfa (Sulfonamide Antibiotics) Allergy (Verified 10/11/24 11:59) Unknown vancomycin Allergy (Verified 10/11/24 11:59) Fever and skin rash Medications ???Medication ???Instructions ???Recorded ???Confirmed ???Type epinephrine 0.3 mg/0.3 mL 0.3 mg (0.3 mL) IM Q10M PRN PRN 10/11/24 Rx injection, auto-injector (EpiPen anaphylaxis #2 ea 2-[place]) tamsulosin 0.4 mg capsule (Flomax) 0.4 mg PO QHS 10/07/23 10/11/24 History rosuvastatin 5 mg tablet 5 mg PO QDAY 05/04/24 10/11/24 His tory rivaroxaban 20 mg tablet 20 mg PO DAILY blood thinner #10 0 05/29/24 10/11/24 Rx tabs sotalol 120 mg tablet 120 mg PO BID 90 days #180 tabs 10/11/24 Rx fludrocortisone 0.1 mg tablet 0.1 mg PO DAILY hypotension #90 10/11/24 Rx tabs sildenafil 50 mg tablet 50 mg PO QDAY PRN 10/11/24 5 History Have you fallen in the past year?: No [facility] Medical History Persistent atrial fibrillation History of cardioversion Atrial flutter Presence of ca (more content not included)... Normal [facility] Anion gap in Serum or Plasma Ordered By: Dc Glez on 07-26-2024 Anion gap [Moles/Vol] 12 mmol/L 5-15 [facility] BUN/creatinine ratioOrdered By: Dc Glez on 07-26-2024 Urea nitrogen/Creatinine [Mass ratio] 16.2 mg/mg 10- [facility] Bilirubin, totalOrdered By: Dc Glez on 07-26-2024 Bilirubin [Mass/Vol] 0.84 mg/dL 0.00-1.30 [facility] Calculated very low density lipoprotein (VLDL) cholesterol measurementOrdered By: Dc Glez on 07-26-2024 Calculated very low density lipoprotein (VLDL) cholesterol measurement 22 mg/dL 5-40 [facility] Carbon dioxide, total [Moles /volume] in Central venous bloodOrdered By: Dc Glez on 07-26-2024 CO2 [Moles/Vol] 24.3 mmol/L 21.0-32.0 [facility] Chloride assayOrdered By: Mae Glez on 07-26-2024 Chloride [Moles/Vol] 105 mmol/L 98-108 [facility] Comprehensive Metabolic Prof ilon 07-26-2024 Albumin [Mass/Vol] 4.0 g/dL Normal 3.4-4.8 [facility] Comment on above: Performed By: #### L 3100.5310, L500.4050, L500.4100, L501.9940 #### [facility] [address] [place], [address] Albumin/Globulin [Mass ratio] 1.2 {ratio} Normal 0.9-2.4 [facility] Comment on above: Performed By: #### L 3100.5310, L500.4050, L500.4100, L501.9940 #### [facility] [address] [place], [address] ALK PHOS 105 U/L Normal 40-129 [facility] Comment on above: Performed By: #### L 3100.5310, L500.4050, L500.4100, L501.9940 #### [facility] [address] [place], [address] ALT [Catalytic activity/Vol] 11 U/L Normal <=46 [facility] Comment on above: Performed By: #### L 3100.5310, L500.4050, L500.4100, L501.9940 #### [facility] [address] [place], [address] AST [Catalytic activity/Vol] 18 U/L Normal <=37 [facility] Comment on above: Performed By: #### L 3100.5310, L500.4050, L500.4100, L501.9940 #### [facility] [address] [place], [address] Bilirubin [Mass/Vol] 0.84 mg/dL Normal 0.00-1.30 [facility] Comment on above: Performed By: #### L 3100.5310, L500.4050, L500.4100, L501.9940 #### [facility] [address] [place], [address] BUN/CRE 16.2 RATIO Normal 10-20 [facility] Comment on above: Performed By: #### L 3100.5310, L500.4050, L500.4100, L501.9940 #### [facility] [address] [place], [address] Calcium [Mass/Vol] 9.1 mg/dL Normal 7.6-11.0 [facility] Comment on above: Performed By: #### L 3100.5310, L500.4050, L500.4100, L501.9940 #### [facility] [address] [place], [address] Chloride [Moles/Vol] 105 mmol/L Normal 98-108 [facility] Comment on above: Performed By: #### L 3100.5310, L500.4050, L500.4100, L501.9940 #### [facility] [address] [place], [address] CO2 [Moles/Vol] 24.3 mmol/L Normal 21.0-32.0 [facility] Comment on above: Performed By: #### L 3100.5310, L500.4050, L500.4100, L501.9940 #### [facility] [address] [place], [address] Creatinine [Mass/Vol] 1.00 mg/dL Normal 0.70-1.20 [facility] Comment on above: Performed By: #### L 3100.5310, L500.4050, L500.4100, L501.9940 #### [facility] [address] [place], [address] GAP 12 Normal 5-15 [facility] Comment on above: Performed By: #### L 3100.5310, L500.4050, L500.4100, L501.9940 #### [facility] [address] [place], [address] GFR/1.73 sq M.predicted among non-blacks MDRD (S/P/Bld) [Vol rate/Area] 85 mL/min/{1.73_m2} Normal >60 [facility] Comment on above: Result Comment: mL/m in/1.73m2 CKD-EPI Creatinine Equation (2020) Performed By: #### L 3100.5310, L500.4050, L500.4100, L501.9940 #### [facility] [address] [place], [address] Globulin (S) [Mass/Vol] 3.3 g/dL Normal 2.2-4.2 [facility] Comment on above: Performed By: #### L 3100.5310, L500.4050, L500.4100, L501.9940 #### [facility] [address] [place], [address] Glucose [Mass/Vol] 88 mg/dL Normal 70-99 [facility] Comment on above: Performed By: #### L 3100.5310, L500.4050, L500.4100, L501.9940 #### [facility] [address] [place], [address] Potassium [Moles/Vol] 4.5 mmol/L Normal 3.3-5.1 [facility] Comment on above: Performed By: #### L 3100.5310, L500.4050, L500.4100, L501.9940 #### [facility] [address] [place], [address] Sodium [Moles/Vol] 141 mmol/L Normal 133-145 [facility] Comment on above: Performed By: #### L 3100.5310, L500.4050, L500.4100, L501.9940 #### [facility] [address] [place], [address] T PROT 7.3 g/dL Normal 5.9-8.4 [facility] Comment on above: Performed By: #### L 3100.5310, L500.4050, L500.4100, L501.9940 #### [facility] [address] [place], [address] Urea nitrogen [Mass/Vol] 16 mg/dL Normal 4-19 [facility] Comment on above: Performed By: #### L 3100.5310, L500.4050, L500.4100, L501.9940 #### [facility] [address] [place], [address] ALB Normal 3.4-4.8 [facility] Comment on above: Result Comment: DUPL ICATE Performed By: #### L 500.4050, L500.4100 #### [facility] [address] [place], [address] ALK PHOS Normal 40-129 [facility] Comment on above: Result Comment: DUPL ICATE Performed By: #### L 500.4050, L500.4100 #### [facility] [address] [place], [address] ALT Normal <=46 [facility] Comment on above: Result Comment: DUPL ICATE Performed By: #### L 500.4050, L500.4100 #### [facility] [address] [place], [address] AST Normal <=37 [facility] Comment on above: Result Comment: DUPL ICATE Performed By: #### L 500.4050, L500.4100 #### [facility] [address] [place], [address] BUN Normal 4-19 [facility] Comment on above: Result Comment: DUPL ICATE Performed By: #### L 500.4050, L500.4100 #### [facility] [address] [place], [address] BUN/CRE Normal 10-20 [facility] Comment on above: Result Comment: DUPL ICATE Performed By: #### L 500.4050, L500.4100 #### [facility] [address] [place], [address] Calcium Normal 7.6-11.0 [facility] Comment on above: Result Comment: DUPL ICATE Performed By: #### L 500.4050, L500.4100 #### [facility] [address] [place], [address] CL Normal 98-108 [facility] Comment on above: Result Comment: DUPL ICATE Performed By: #### L 500.4050, L500.4100 #### [facility] [address] [place], [address] CO2 Normal 21.0-32.0 [facility] Comment on above: Result Comment: DUPL ICATE Performed By: #### L 500.4050, L500.4100 #### [facility] [address] [place], [address] CREAT,SERUM Normal 0.70-1.20 [facility] Comment on above: Result Comment: DUPL ICATE Performed By: #### L 500.4050, L500.4100 #### [facility] [address] [place], [address] eGFR Normal >60 [facility] Comment on above: Result Comment: DUPL ICATE Performed By: #### L 500.4050, L500.4100 #### [facility] [address] [place], [address] GAP Normal 5-15 [facility] Comment on above: Result Comment: DUPL ICATE Performed By: #### L 500.4050, L500.4100 #### [facility] [address] [place], [address] GLU Normal 70-99 [facility] Comment on above: Result Comment: DUPL ICATE Performed By: #### L 500.4050, L500.4100 #### [facility] [address] [place], [address] Potassium Normal 3.3-5.1 [facility] Comment on above: Result Comment: DUPL ICATE Performed By: #### L 500.4050, L500.4100 #### [facility] [address] [place], [address] T BILI Normal 0.00-1.30 [facility] Comment on above: Result Comment: DUPL ICATE Performed By: #### L 500.4050, L500.4100 #### [facility] [address] [place], [address] T PROT Normal 5.9-8.4 [facility] Comment on above: Result Comment: DUPL ICATE Performed By: #### L 500.4050, L500.4100 #### [facility] [address] [place], [address] Comprehensive Metabolic Profil Normal 133-145 [facility] Comment on above: Result Comment: DUPL ICATE Performed By: #### L 500.4050, L500.4100 #### [facility] [address] [place], [address] Glomerular filtration rate ( GFR) estimation/1.73 sq m using serum, plasma, or whole bOrdered By: Dc Glez on 07-26-2024 GFR/1.73 sq M.predicted among non-blacks MDRD (S/P/Bld) [Vol rate/Area] 85 mL/min/{1.73_m2} >60 [facility] Comment on above: mL/min/1.73m2 CKD-EP I Creatinine Equation (2020) LDL calc ser/plasOrdered By: Dc Glez on 07-26-2024 Cholesterol in LDL [Mass/Vol] 92 mg/dL [facility] Comment on above: Fybanlataf=733-633 m g/dL & Higher Kiit=757 mg/dL or greater Laboratory - Chemistry and C hemistry - challengeOrdered By: Dc Glez on 07-26-2024 AST [Catalytic activity/Vol] 18 U/L <38 [facility] Lipid Profileon 07-26-2024 CHOL:HDL 3.62 Normal [facility] Comment on above: Performed By: #### L 3100.5310, L500.4050, L500.4100, L501.9940 #### [facility] [address] [place], [address] Cholesterol [Mass/Vol] 157 mg/dL Normal <=200 [facility] Comment on above: Result Comment: Chol esterol level, Desirable <200 mg/dL Borderline high cholesterol 200-239 mg/dL High cholesterol >=240 mg/dL Recommendations of the NCEP Adult Treatment Panel for the following risk-cutoff thresholds for the [place] population. Performed By: #### L 3100.5310, L500.4050, L500.4100, L501.9940 #### [facility] [address] [place], [address] Cholesterol in HDL [Mass/Vol] 43 mg/dL Normal [facility] Comment on above: Result Comment: Sammi onal Cholesterol Education Program (NCEP) guidelines: <40 mg/dL: Low HDL-cholesterol (major risk factor for CHD) >= 60 mg/dL: High HDL-cholesterol (negative risk factor for CHD) HDL-cholesterol is affected by a number of factors, e.g. smoking, exercise, hormones, sex and age. Performed By: #### L 3100.5310, L500.4050, L500.4100, L501.9940 #### [facility] [address] [place], [address] Cholesterol in LDL [Mass/Vol] 92 mg/dL Normal [facility] Comment on above: Result Comment: Bord ltdqcj=084-051 mg/dL Higher Omxh=819 mg/dL or greater Performed By: #### L 3100.5310, L500.4050, L500.4100, L501.9940 #### [facility] [address] [place], [address] Cholesterol in VLDL [Mass/Vol] 22 mg/dL Normal 5-40 [facility] Comment on above: Performed By: #### L 3100.5310, L500.4050, L500.4100, L501.9940 #### [facility] [address] [place], [address] Triglyceride [Mass/Vol] 109 mg/dL Normal [facility] Comment on above: Result Comment: The drugs N-Acetylcysteine and Metamizole may falsely depress this assay. Normal range: <150 mg/dL Borderline High: 150-199 mg/dL High: 200-499 mg/dL Very High: >500 mg/dL Performed By: #### L 3100.5310, L500.4050, L500.4100, L501.9940 #### [facility] [address] [place], [address] TRIG Normal [facility] Comment on above: Result Comment: DUPL ICATE The drugs N-Acetylcysteine and Metamizole may falsely depress this assay. Performed By: #### L 500.4050, L500.4100 #### [facility] [address] [place], [address] CHOL Normal <=200 [facility] Comment on above: Result Comment: DUPL ICATE Performed By: #### L 500.4050, L500.4100 #### [facility] [address] [place], [address] CHOL:HDL Normal [facility] Comment on above: Result Comment: DUPL ICATE Performed By: #### L 500.4050, L500.4100 #### [facility] [address] [place], [address] CLDL Normal [facility] Comment on above: Result Comment: DUPL ICATE Performed By: #### L 500.4050, L500.4100 #### [facility] [address] [place], [address] HDL Normal [facility] Comment on above: Result Comment: DUPL ICATE Performed By: #### L 500.4050, L500.4100 #### [facility] [address] [place], [address] VLDL Normal 5-40 [facility] Comment on above: Result Comment: DUPL ICATE Performed By: #### L 500.4050, L500.4100 #### [facility] [address] [place], [address] Potassium measurement (mass/ volume)Ordered By: Dc Glez on 07-26-2024 Potassium (Unsp spec) [Mass/Vol] 4.5 mmol/L 3.3-5.1 [facility] Screening total cholesterol/ high density lipoprotein (HDL) cholesterol ratioOrdered By: Dc Glez on 07-26-2024 Cholesterol.total/Chol esterol in HDL [Mass ratio] 3.62 {ratio} [facility] Serum creatinine measurement (mass/volume)Ordered By: Dc Glez on 07-26-2024 Creatinine [Mass/Vol] 1.00 mg/dL 0.70-1.20 [facility] Serum globulin measurementOr dered By: Dc Glez on 07-26-2024 Globulin (S) [Mass/Vol] 3.3 g/dL 2.2-4.2 [facility] Serum glucose measurement (m ass/volume)Ordered By: Dc Glez on 07-26-2024 Glucose [Mass/Vol] 88 mg/dL 70-99 [facility] Serum or plasma alanine villela otransferase (ALT) measurementOrdered By: Dc Glez on 07-26-2024 ALT [Catalytic activity/Vol] 11 U/L <47 [facility] Serum or plasma albumin wilma urement (mass/volume)Ordered By: Dc Glez on 07-26-2024 Albumin [Mass/Vol] 4.0 g/dL 3.4-4.8 [facility] Serum or plasma albumin/glob ulin mass ratioOrdered By: Dc Glez on 07-26-2024 Albumin/Globulin [Mass ratio] 1.2 {ratio} 0.9-2.4 [facility] Serum or plasma alkaline jose c sphatase measurementOrdered By: Dc Glez on 07-26-2024 ALP [Catalytic activity/Vol] 105 U/L 40-129 [facility] Serum or plasma calcium wilma urement (mass/volume)Ordered By: Dc Glez on 07-26-2024 Calcium [Mass/Vol] 9.1 mg/dL 7.6-11.0 [facility] Serum or plasma cholesterol in HDL measurement (mass/volume)Ordered By: Dc Glez on 07-26-2024 Cholesterol in HDL [Mass/Vol] 43 mg/dL >40 [facility] Comment on above: National Cholesterol Education Program (NCEP) guidelines:<40 mg/dL: Low HDL-cholesterol (major risk factor for CHD)>= 60 mg/dL: High HDL-cholesterol (negative risk factor for CHD)HDL-cholesterol is affected by a number of factors, e.g. smoking, exercise, hormones, sex and age. Serum or plasma cholesterol measurement (mass/volume)Ordered By: Dc Glez on 07-26-2024 Cholesterol [Mass/Vol] 157 mg/dL <201 [facility] Comment on above: Cholesterol level, D esirable <200 mg/dLBorderline high cholesterol 200-239 mg/dLHigh cholesterol >=240 mg/dLRecommendations of the NCEP Adult Treatment Panel for the following risk-cutoff thresholds for the [place] population. Serum or plasma urea nitroge n measurement (mass/volume)Ordered By: Dc Glez on 07-26-2024 Urea nitrogen [Mass/Vol] 16 mg/dL 4-19 [facility] Sodium levelOrdered By: Dc Glez on 07-26-2024 Sodium [Moles/Vol] 141 mmol/L 133-145 [facility] Total proteinOrdered By: Rocio Glez on 07-26-2024 Protein [Mass/Vol] 7.3 g/dL 5.9-8.4 [facility] Triglycerides measurementOrd ered By: Dc Glez on 07-26-2024 Triglyceride [Mass/Vol] 109 mg/dL <199 [facility] Comment on above: The drugs N-Acetylcy steine and Metamizole may falsely depress this assay. Normal range: <150 mg/dLBorderline High: 150-199 mg/dLHigh: 200-499 mg/dLVery High: >500 mg/dL 12 Lead EKG performed by [facility] on 07-11-2024 12 Lead EKG performed by [address] [place] [address] 12 Lead EKG performed by [facility] 07/11/24 0652 MR#: [id number] Acct: [id number] Name: HUNG PECK Rep #: [id number] : 1960 63 From: Karri WALL Attending Dr: MAE Asencio Status: DEP B Ordering Dr: Karri Dubois Date: 07/11/24 [place] [facility] [place] M C Admitted: [facility]/12 Lead EKG performed by [facility] ECG Report Interpretation El ectronic ventricular pacemaker -possibly demand type Pacemaker ECG, No further analysis INSUFFICIENT DATAElectronically signed on 07/11/2024 at 16:06 by Trae Cano Software Version [id number] 07/11/24 1608 Date Karri WALL CC: Dr. Dc Glez MD Date Dictated: 07/11/2452 Date Transcribed: 07/11/24651 [employer] Operations Center Operator: ALVION Signed Normal [facility] Cardiology Visit Reporton Cardiology Visit Report [facility] [address] [place] [address] OFFICE VISIT Date of Service: 07/11/24 MR#: [id number] Acct: [id number] Name: HUNG PECK Rep #: [id number] : 1960 Provider: MAE Asencio Age/Sex: 63/M [place] [facility] [place]: Signed HPI HPI History of Present Illness Details: Hung Peck is a 63-year-old male who presents to the office today for follow-up for monitoring his cardiovascular health. 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 Patient was admitted to [facility] in October 2021 with symptomatic bradycardia. Echocardiogram at that time demonstrated preserved ejection fraction, mildly enlarged left atrium, mild mitral valve insufficiency and RVSP of 36 mmHg. Patient underwent heart catheterization in October 2021 that showed single-vessel mild coronary artery disease of the LAD. Patient then underwent pacemaker placement 11/19/2021 for sick sinus syndrome. He did undergo DCCV 12/13/2022 for his atrial fibrillation. In February 2023, patient was hospitalized for near syncope and atrial fibrillation with RVR. Pacemaker report from 03/04/2023 showed 60% cumulation atrial arrhythmia burden with 2274 high ventricular rate episodes. His metoprolol was reduced on the account of orthostatic changes and reduced systolic blood pressure as 70 mmHg. Patient has been intolerant to amiodarone in the past. Patient underwent DC cardioversion successfully and was loaded with sotalol. In September 2023, patient was noted to be in atrial fibrillation but was unaware of this as he was asymptomatic. He was scheduled to undergo DCCV again in November 2023 but was noted to be in sinus rhythm. He did have recurrence of atrial fibrillation captured after this and has remained in atrial fibrillation. Patient was seen 05/04/2024 and was noted to have persistent atrial fibrillation, he was more fatigued and decided to pursue cardioversion. Patient underwent DCCV 05/16/2024. Follow-up EKG/11/15 demonstrated ventricular paced with underlying atrial fibrillation. Upon presentation to office today, EKG demonstrated ventricular paced with underlying atrial fibrillation at 79 bpm. Patient's only previous symptom with his atrial fibrillation was fatigue. He reports that currently, he feels well and only notices increased fatigue about twice per month. Patient denies any other associated symptoms and is unaware that he is currently in atrial fibrillation. Further ROS below. Intake Vital Signs 01/11/24 14:28 05/16/24 11:09 07/11/24 06:53 Height 6 ft 2 in 6 ft 2 in 6 ft 2 in Weight: 229 lb BMI 29.4 BP 141/78 H Blood Pressure Location Lt brachial Position Sitting Respiration 18 Pulse 80 Pulse Source Monitor Pulse Oximetry (%) 96 Intake Visit Reasons: 6 M FU Maintenance Engineer Required: No Is patient in pain?: No Allergies ciprofloxacin Allergy (Unknown, Verified 07/11/24 14:48) Rash ceftriaxone Allergy (Verified 07/11/24 14:48) Rash Iodinated Contrast Media (contrast dye - iodinated) Allergy (Verified 07/11/24 14:48) Angioedema linezolid Allergy (Verified 07/11/24 14:48) Rash Sulfa (Sulfonamide Antibiotics) Allergy (Verified 07/11/24 14:48) Unknown vancomycin Allergy (Verified 07/11/24 14:48) Fever and skin rash Medications ???Medication ???Instructions ???Recorded ???Confirmed ???Type epinephrine 0.3 mg/0.3 mL 0.3 mg (0.3 mL) IM Q10M PRN PRN 07/11/24 Rx injection, auto-injector (EpiPen anaphylaxis #2 ea 2-Franklin) fludrocortisone 0.1 mg tablet 0.1 mg PO DAILY hypotension #90 07/11/24 Rx tabs tamsulosin 0.4 mg capsule (Flomax) 0.4 mg PO QHS 10/07/23 07/11/24 History rosuvastatin 5 mg tablet 5 mg PO QDAY 05/04/24 07/11/24 His tory sildenafil 50 mg tablet 50 mg PO QDAY 05/04/24 07/11/24 Hi story rivaroxaban 20 mg tablet 20 mg PO DAILY blood thinner #10 0 05/29/24 07/11/24 Rx tabs sotalol 120 mg tablet 120 mg PO BID 90 days #180 tabs 07/11/24 Rx Ejection fraction %: 60 Have you fallen in the past year?: No [facility] Medical History (Updated 07/11/24 @ 15:51 by MAE Asencio) Persistent atrial fibrillation History of cardioversion Atrial flutter Presence of cardiac pacemaker History of left heart catheterization (LHC) ( 11/12/21) 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 Normal [facility] 12 Lead EKG performed by [facility] on 05-24-2024 12 Lead EKG performed by [address] [place] [address] 12 Lead EKG performed by [facility] 05/24/24 1307 MR#: [id number] Acct: [id number] Name: HUNG PECK Rep #: [id number] : 1960 63 From: Trae Cano MD Attending Dr: Dr. Trae Cano MD Status: DEP A MB Ordering Dr: Trae Cano MD Date: 05/24/24 [place] [facility] Sex: M C Admitted: [facility]/12 Lead EKG performed by [facility] ECG Report Interpretation El ectronic ventricular pacemaker -possibly demand type Pacemaker ECG, No further analysis Electronically signed on 05/30/2024 at 11:25 by Trae Cano [employer] Version [id number] 05/30/24 1130 Date Trae Cano MD CC: Dr. Dc Glez MD Date Dictated: 05/24/24 1307 Date Transcribed: 05/24/241306 [employer] Operations Center Operator: CO Signed [facility] Office Visit Reporton 2024 Office Visit Report [facility] [address] [place] [address] OFFICE VISIT Date of Service: 05/24/24 MR#: [id number] Acct: [id number] Patient: HUNG PECK Rep #: [id number] : 1960 Provider: Dr. Trae Cano MD Age/Sex: 63/M Location: [facility] Status: Signed Intake Vital Signs 05/04/24 07:48 05/16/24 11:09 Height 6 ft 2 in 6 ft 2 in Intake Visit Reasons: 1 W DCCV Allergies ciprofloxacin Allergy (Unknown, Verified 05/04/24 13:21) Rash ceftriaxone Allergy (Verified 05/04/24 13:21) Rash Iodinated Contrast Media (contrast dye - iodinated) Allergy (Verified 05/04/24 13:21) Angioedema linezolid Allergy (Verified 05/04/24 13:21) Rash Sulfa (Sulfonamide Antibiotics) Allergy (Verified 05/04/24 13:21) Unknown vancomycin Allergy (Verified 05/04/24 13:21) Fever and skin rash Nursing Note Patient in office for post-cardioversion EKG. States he has been feeling fine, although he was never able to feel when he was in afib. He states increased fatigue is typically the only symptom he would have. States since DCCV, he has been feeling great. EKG given to MMM. She states she will call patient after reviewing with Dr. Cano. Patient aware and discharged home. Assessment and Plan Assessment and Plan Orders: Orders 12 Lead EKG performed by [facility] Today I48.19 - Other persistent atrial fibrillation 05/25/24 0713 Date Trae Cano MD Cosigner Signature: Date (if applicable) CC: Normal [facility] Cardioversion Reporton 05-16 Cardioversion Report [facility] [address] [place] [address] MR#: [id number] Acct: [id number] Name: HUNG PECK Rep #: [id number] : 1960 63 From: Trae Cano MD Primary Care: Dr. Dc Glez MD Status: REG SDC Referring Dr: Trae Cano MD Sex: M C Cardioversion Cardioversion: DC cardioversion 63-year-old man with a history of atrial fibrillation status post permanent pacemaker implantation. Placed patient has been on anticoagulation for minimum of 4 weeks. Patient was seen by Dr. Bowden of the critical care division. Informed consent was obtained. Anterior-posterior pads were applied. The patient was then administered 50 mg of intravenous propofol. 200 J of synchronized biphasic DC cardioversion energy were applied with prompt reversal to sinus rhythm. Patient tolerated the procedure well. Conclusion: Successful DC cardioversion from atrial fibrillation to sinus rhythm. AV sequential pacing noted. Follow-up as per office protocol. 05/16/24 1302 Date Trae Cano MD CC: Dr. Trae Cano MD; Dr. Dc Glez MD Date Dictated: 05/16/24 1301 Date Transcribed: 05/16/24 130 Security Operations Center Operator: CO Signed Normal [facility] Cardioversion reportOrdered By: Trae Cano on 05-16-2024 Study report [facility] [address] [facility] [place] [address] MR#: [id number] Acct: [id number] Name: HUNG PECK Rep #: [id number] : 1960 63 From: Trae Cano MD Primary Care: Dr. Dc Glez MD Status : REG SDC Referring Dr: Trae Cano MD Sex: M C Cardioversion Cardioversion: DC cardioversion 63-year-old man with a history of atrial fibrillation status post permanent pacemaker implantation. Placed patient has been on anticoagulation for minimum of 4 weeks. Patient was seen by Dr. Bowden of the critical care division. Informed consent was obtained. Anterior-posterior pads were applied. The patient was then administered 50 mg of intravenous propofol. 200 J of synchronized biphasic DC cardioversion energy were applied with prompt reversal to sinus rhythm. Patient tolerated the procedure well. Conclusion: Successful DC cardioversion from atrial fibrillation to sinus rhythm. AV sequential pacing noted. Follow-up as per office protocol. 05/16/24 1302 Date _ Trae Cano MD CC: Dr. Trae Cano MD; Dr. Dc Glez MD ~ Date Dictated: 05/16/241300 Date Transcribed: 05/16/241300 Security Operations Center Operator: CO Signed [facility] Work Phone: Procedure Reporton Procedure Report [facility] Medical Records Department [address] [place] [address] Procedure Report 05/16/24 1248 MR#: [id number] Acct: [id number] Name: HUNG PECK Rep #: [id number] : 1960 63 From: Sanjiv Bowden DO PCP: Dr. Dc Glez MD Status:REG [facility] Location: [facility] Procedures Pulmonary Pulmonary Procedures /Diagnostic Testin Con Sedation Non-invasive Procedural Procedure Information Date of Procedure: 05/16/24 Description of procedure: CONSCIOUS SEDATION REPORT DATE OF SERVICE: May 16, 2024 BRIEF HISTORY OF PRESENT ILLNESS: The patient is a 63-year-old male who presented to [facility] for elective outpatient cardioversion due to a history of atrial fibrillation. The patient did undergo a prior cardioversion in April 2023, during which time, propofol was utilized for sedation purposes. The patient denied any prior anesthetic complications. He is systemically anticoagulated on Xarelto. His last surface echocardiogram demonstrated an ejection fraction of approximately 60%. PHYSICAL EXAMINATION: VITAL SIGNS: Reviewed and were acceptable. GENERAL: The patient is a male, in no apparent distress, speaking in full sentences. HEENT: Normocephalic, atraumatic. Mucous membranes are moist and pink. Good mouth opening noted. Trachea is midline. Good neck mobility. CHEST: S1, S2 irregularly irregular. No murmurs, rubs or gallops were noted. LUNGS: Clear to auscultation bilaterally without appreciable wheezes, rales or rhonchi. ABDOMEN: Soft, nontender, nondistended. Positive bowel sounds. EXTREMITIES: There is no clubbing, cyanosis or edema. ASA Class: II DESCRIPTION OF PROCEDURE: After confirmation of informed consent, the patient's anesthesia plan was reviewed in detail. Propofol was chosen. Risks and benefits were reviewed and the patient agreed to proceed. At 1220, the patient was given 50 mg of propofol. The patient achieved an appropriate level of sedation and was given a 200 joule synchronized cardioversion by Dr. Cano at the bedside. This was successful in achieving normal sinus rhythm. The patient was monitored until 1235, at which time he reached his baseline mental status and function. The patient tolerated the procedure well. COMPLICATIONS: None ESTIMATED BLOOD LOSS: None RECOMMENDATIONS: Okay to recover in usual fashion. 05/16/24 1252 Cosigner Signature (if applicable): CC: Dr. Trae Cano MD; Dr. Sanjiv Bowden DO; Dr. Dc Glez MD Signed Normal [facility] Testosterone, Total / Freeon 05-07-2024 TESTOSTER,FREE 11.62 ng/dL Normal 5.00-21.00 [facility] Comment on above: Order Comment: N Performed By: #### L 3100.5310, L500.4050, L500.4100, L501.9940 #### [facility] [address] [place], [address] TESTOSTER,TOTAL 386 ng/dL Normal 264-916 [facility] Comment on above: Order Comment: N Result Comment: Adul t male reference interval is based on a population of healthy nonobese males (BMI <30) between 19 and 39 years old. sean Ross.al. JCEM 2017,102;2944-4219. PMID: [id number]. Performed By: #### L 3100.5310, L500.4050, L500.4100, L501.9940 #### [facility] [address] [place], [place], [address] TESTOSTERONE,%F 3.01 Normal 1.50-4.20 [facility] Comment on above: Order Comment: N Result Comment: Perf ormed at: [facility] [id number] [employer] Machine Setter: Ronnie Raymond PhD, Phone: [phone] Performed at: - [facility] [id number] [employer] Machine Setter: Sunday Chavez MD, Phone: [phone] Performed By: #### L 3100.3826, L500.4050, L500.4100, L501.8555 #### [facility] [address] [place], [address] 12 Lead EKG performed by [facility] on 05-04-2024 12 Lead EKG performed by [address] [place] [address] 12 Lead EKG performed by [facility] 05/04/24 0747 MR#: [id number] Acct: [id number] Name: HUNG PECK Rep #: [id number] : 1960 63 From: Kia Barrett Attending Dr: MAE Hernández Status: DEP AMB Ordering Dr: Kia Kirkpatrick Date: 04/21 06/15 [place] [facility] [place]: M C Admitted: [facility]/12 Lead EKG performed by [facility] ECG Report Interpretation El ectronic ventricular pacemaker -possibly demand type Pacemaker ECG, No further analysis INSUFFICIENT DATAElectronically signed on 05/10/2024 at 07:37 by Trae Cano Software Version [id number] 05/10/24 0741 Date Kia WALL CC: Dr. Dc Glez MD Date Dictated: 05/04/24 0747 Date Transcribed: 05/04/2447 Security Operations Center Operator: NICOLA Signed Normal [facility] Cardiology Visit Reporton Cardiology Visit Report [facility] [address] [place] [address] OFFICE VISIT Date of Service: 05/04/24 MR#: [id number] Acct: [id number] Name: HUNG PECK Rep #: [id number] : 1960 Provider: MAE Miller Age/Sex: 63/M Location: [facility] Status: Signed HPI HPI History of Present Illness Details: HUNG PECK, is a 63 year old white male with a hx of syncope, PACs/PVCs, atrial fibrillation, wide-complex tachycardia with differential of a ventricular rhythm versus atrial fibrillation with aberrancy, and factor V Leiden deficiency with previous thromboembolic events. Patient was admitted and evaluated at [facility] in October 2021 for symptomatic bradycardia. Echocardiogram on 11/10/2021 showed ejection fraction 60%, mildly enlarged left atrium, mild mitral valve insufficiency, and RVSP of 36 mmHg. Heart catheterization on 11/12/2021 showed single-vessel mild coronary artery disease of the LAD. He underwent pacemaker placement on 11/19/[address] Rios for sick sinus syndrome. He did undergo a DCCV 12/13/22. Pt was hospitalized in February 2023 for near-syncope and atrial fibrillation with RVR. Remote report from 03/04/2023 showed 60% cumulative atrial arrhythmia burden with 2274 high ventricular rate episodes. His metoprolol was reduced on account of orthostatic changes and reduced systolic blood pressure at 70 mmHg. It is noted that he is intolerant to amiodarone. He underwent DC cardioversion successfully and also underwent sotalol loading. In September patient was noted to be in atrial fibrillation. He was not aware of this. Patient was initially scheduled to undergo a cardioversion in November 22, 2023. At that time he was noted to be in sinus rhythm. Patient was seen in the office in December 2023. He had returned to atrial fibrillation at the end of November. He has remained in atrial fibrillation. We did talk about a cardioversion at that time however his was undergoing back surgery and he felt that he needed to take care of her before he pursued this. He is here today to now discuss undergoing a cardioversion. Pt does feel that he is more fatigued with his Afib. His remote checks still indicate Afib. Intake Vital Signs 01/11/24 14:28 05/04/24 07:48 Height 6 ft 2 in 6 ft 2 in Weight: 229 lb BMI 29.4 BP 126/81 H Blood Pressure Location Lt brachial Position Sitting Respiration 18 Pulse 75 Pulse Source Monitor Pulse Oximetry (%) 94 Intake Visit Reasons: DCCV Discussion/EKG Maintenance Engineer Required: No Is patient in pain?: No Allergies ciprofloxacin Allergy (Unknown, Verified 05/04/24 13:21) Rash ceftriaxone Allergy (Verified 05/04/24 13:21) Rash Iodinated Contrast Media (contrast dye - iodinated) Allergy (Verified 05/04/24 13:21) Angioedema linezolid Allergy (Verified 05/04/24 13:21) Rash Sulfa (Sulfonamide Antibiotics) Allergy (Verified 05/04/24 13:21) Unknown vancomycin Allergy (Verified 05/04/24 13:21) Fever and skin rash Medications ???Medication ???Instructions ???Recorded ???Confirmed ???Type epinephrine 0.3 mg/0.3 mL 0.3 mg (0.3 mL) IM Q10M PRN PRN 05/04/24 Rx injection, auto-injector (EpiPen anaphylaxis #2 ea 2-Franklin) fludrocortisone 0.1 mg tablet 0.1 mg PO DAILY hypotension #90 05/04/24 Rx tabs tamsulosin 0.4 mg capsule (Flomax) 0.4 mg PO QHS 10/07/23 05/04/24 History rivaroxaban 20 mg tablet 20 mg PO DAILY blood thinner #90 0 10/31/23 05/04/24 Rx tabs sotalol 120 mg tablet 120 mg PO BID 90 days #180 tabs 05/04/24 Rx rosuvastatin 5 mg tablet 5 mg PO QDAY 05/04/24 05/04/24 His tory sildenafil 50 mg tablet 50 mg PO QDAY 05/04/24 05/04/24 Hi story Ejection fraction %: 60 Have you fallen in the past year?: No Nurse's Note: patient is on a cholesterol medication, but does not know what it is. [facility] Medical History Persistent atrial fibrillation History of cardioversion Atrial flutter with rapid ventricular response Atrial flutter Presence of cardiac pacemaker History of left heart catheterization (LHC) ( 11/12/21) Syncope and collapse halfway 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 amiodarone Paroxysmal atrial fibrillation Wide-complex tachycardia Asymptomatic premature ventricular contractions Premature atrial contraction Syncope and collapse Hematuria Factor V Leiden Abscess of right thigh DAYNA (acute kidney injury) Coagulopathy Septic shock Fever with exanthematous rash 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 knee joint Atrial fibrillation with RVR Elevated LFTs Acute cystitis Severe sepsis Anemia History of pulmonary embolism History of DVT (deep vein thrombosis) Surgical History ... Normal [facility] Chest PA and Lateralon 05-04 Chest PA and Lateral [facility] [facility] [address] [place] [address] Chest PA and Lateral MR#: [id number] Acct: [id number] Name: HUNG PECK Rep #: [id number] : 1960 M 63 From: Humberto Perdue MD PCP: Dr. Dc Glez MD Status: REG CLI Study: Chest PA and Lateral Date of Exam: 05/04/24 Exam# [id number] Ordering Dr: Kia Kirkpatrick PA EXAM: XR Chest, 2 Views CLINICAL INDICATION: SOB TECHNIQUE: Frontal and lateral views of the chest. COMPARISON: XR Chest dated 11/09/2023 FINDINGS: LUNGS AND PLEURAL SPACES: Pulmonary venous congestion. No consolidation. No pneumothorax. HEART: Unremarkable. No cardiomegaly. MEDIASTINUM: Unremarkable. Normal mediastinal contour. BONES/JOINTS: Unremarkable. No acute fracture. TUBES, LINES AND DEVICES: Left-sided cardiac pacemaker. RAD/Chest PA and Lateral IMPRESSION: Pulmonary venous congestion. No significant change from the prior exam. Reading Location: [facility] CC: Dr. Dc Glez MD; MAE Hernández [employer] Operator: Signed Normal [facility] Anion gap in Serum or Plasma Ordered By: Dc Glez on 04-25-2024 Anion gap [Moles/Vol] 13 mmol/L 5-15 [facility] BUN/creatinine ratioOrdered By: Dc Glez on 04-25-2024 Urea nitrogen/Creatinine [Mass ratio] 12.4 mg/mg 10-20 [facility] Bilirubin, totalOrdered By: Dc Glez on 04-25-2024 Bilirubin [Mass/Vol] 0.71 mg/dL 0.00-1.30 [facility] Calculated very low density lipoprotein (VLDL) cholesterol measurementOrdered By: Dc Glez on 04-25-2024 Calculated very low density lipoprotein (VLDL) cholesterol measurement 45 mg/dL High 5-40 [facility] VLDL Cholesterol 45 mg/dL High 5-40 [facility] Carbon dioxide, total [Moles /volume] in Central venous bloodOrdered By: Dc Glez on 04-25-2024 CO2 [Moles/Vol] 22.8 mmol/L 21.0-32.0 [facility] Chloride assayOrdered By: Mae Glez on 04-25-2024 Chloride [Moles/Vol] 104 mmol/L 98-108 [facility] Comprehensive Metabolic Prof ilon 04-25-2024 Albumin [Mass/Vol] 4.0 g/dL Normal 3.4-4.8 [facility] Comment on above: Performed By: #### L 3100.5310, L500.4050, L500.4100, L501.9940 #### [facility] [address] [place], [address] Albumin/Globulin [Mass ratio] 1.2 {ratio} Normal 0.9-2.4 [facility] Comment on above: Performed By: #### L 3100.5310, L500.4050, L500.4100, L501.9940 #### [facility] [address] [place], [address] ALK PHOS 104 U/L Normal 40-129 [facility] Comment on above: Performed By: #### L 3100.5310, L500.4050, L500.4100, L501.9940 #### [facility] [address] [place], [address] ALT [Catalytic activity/Vol] 11 U/L Normal <=46 [facility] Comment on above: Performed By: #### L 3100.5310, L500.4050, L500.4100, L501.9940 #### [facility] [address] [place], [address] AST [Catalytic activity/Vol] 20 U/L Normal <=37 [facility] Comment on above: Performed By: #### L 3100.5310, L500.4050, L500.4100, L501.9940 #### [facility] [address] [place], [address] Bilirubin [Mass/Vol] 0.71 mg/dL Normal 0.00-1.30 [facility] Comment on above: Performed By: #### L 3100.5310, L500.4050, L500.4100, L501.9940 #### [facility] [address] [place], [address] BUN/CRE 12.4 RATIO Normal 10-20 [facility] Comment on above: Performed By: #### L 3100.5310, L500.4050, L500.4100, L501.9940 #### [facility] [address] [place], [address] Calcium [Mass/Vol] 9.3 mg/dL Normal 7.6-11.0 [facility] Comment on above: Performed By: #### L 3100.5310, L500.4050, L500.4100, L501.9940 #### [facility] [address] [place], [address] Chloride [Moles/Vol] 104 mmol/L Normal 98-108 [facility] Comment on above: Performed By: #### L 3100.5310, L500.4050, L500.4100, L501.9940 #### [facility] [address] [place], [address] CO2 [Moles/Vol] 22.8 mmol/L Normal 21.0-32.0 [facility] Comment on above: Performed By: #### L 3100.5310, L500.4050, L500.4100, L501.9940 #### [facility] [address] [place], [address] Creatinine [Mass/Vol] 1.17 mg/dL Normal 0.70-1.20 [facility] Comment on above: Performed By: #### L 3100.5310, L500.4050, L500.4100, L501.9940 #### [facility] [address] [place], [address] GAP 13 Normal 5-15 [facility] Comment on above: Performed By: #### L 3100.5310, L500.4050, L500.4100, L501.9940 #### [facility] [address] [place], [address] GFR/1.73 sq M.predicted among non-blacks MDRD (S/P/Bld) [Vol rate/Area] 70 mL/min/{1.73_m2} Normal >60 [facility] Comment on above: Result Comment: mL/m in/1.73m2 CKD-EPI Creatinine Equation (2020) Performed By: #### L 3100.5310, L500.4050, L500.4100, L501.9940 #### [facility] [address] [place], [address] Globulin (S) [Mass/Vol] 3.3 g/dL Normal 2.2-4.2 [facility] Comment on above: Performed By: #### L 3100.5310, L500.4050, L500.4100, L501.9940 #### [facility] [address] [place], [address] Glucose [Mass/Vol] 94 mg/dL Normal 70-99 [facility] Comment on above: Performed By: #### L 3100.5310, L500.4050, L500.4100, L501.9940 #### [facility] [address] [place], [address] Potassium [Moles/Vol] 4.6 mmol/L Normal 3.3-5.1 [facility] Comment on above: Performed By: #### L 3100.5310, L500.4050, L500.4100, L501.9940 #### [facility] [address] [place], [address] Sodium [Moles/Vol] 140 mmol/L Normal 133-145 [facility] Comment on above: Performed By: #### L 3100.5310, L500.4050, L500.4100, L501.9940 #### [facility] [address] [place], [address] T PROT 7.3 g/dL Normal 5.9-8.4 [facility] Comment on above: Performed By: #### L 3100.5310, L500.4050, L500.4100, L501.9940 #### [facility] [address] [place], [address] Urea nitrogen [Mass/Vol] 15 mg/dL Normal 4-19 [facility] Comment on above: Performed By: #### L 3100.5310, L500.4050, L500.4100, L501.9940 #### [facility] [address] [place], [place], [id number] Diagnostic total prostate sp ecific antigen (PSA) measurementOrdered By: Dc Glez on 04-25-2024 Prostate Specific Antigen Total 0.96 ng/mL 0.00-4.00 [facility] Comment on above: This test was perfor med using the [employer] tPSA method. Measured values of a patient sample can vary depending on the testing procedure used. PSA values determined on patient samples by different testing procedures cannot be used interchangeably. If there is a change in PSA assays while monitoring therapy, sequential testing should be performed to confirm baseline values. Free testosterone percentage Ordered By: Dc Glez on 04-25-2024 Testosterone Free/Testosterone.tota l [Mass fraction] 3.01 % 1.50-4.20 [facility] Comment on above: Performed at: [facility] [employer] [address] [id number] Director: Ronine Raymond PhD, Phone: [phone] at: [facility] [id number] Director: Sunday Chavez MD, Phone: [phone] GFR/1.73 sq M.predicted tigist g non-blacks MDRD (S/P/Bld) [Vol rate/Area]Ordered By: Dc Glez on 04-25-2024 Estimated GFR (MDRD) Non-Af Amer 70 >60 [facility] Comment on above: mL/min/1.73m2 CKD-EP I Creatinine Equation (2020) Glomerular filtration rate ( GFR) estimation/1.73 sq m using serum, plasma, or whole bOrdered By: Dc Glez on 04-25-2024 GFR/1.73 sq M.predicted among non-blacks MDRD (S/P/Bld) [Vol rate/Area] 70 mL/min/{1.73_m2} >60 [facility] Comment on above: mL/min/1.73m2 CKD-EP I Creatinine Equation (2020) Knee 4 or More Viewson 04-25 Knee 4 or More Views [facility] [address] [place] [address] Knee 4 or More Views MR#: [id number] Acct: [id number] Name: HUNG PECK Rep #: [id number] : 1960 M 63 From: Dc Littlejohn MD PCP: Dr. Dc Glez MD Status: REG CLI Study: Knee 4 or More Views Date of Exam: 04/25/24 Exam# [id number] Ordering Dr: Dc Glez MD PROCEDURE: KNEE 4 OR MORE VIEWS REASON FOR EXAM: Left knee pain, swelling TECHNIQUE: 4 view(s) of the left knee COMPARISON: None. FINDINGS: No fracture. No suspicious bone lesion. Severe tricompartmental degenerative changes No effusion. Soft tissues are unremarkable. RAD/Knee 4 or More Views IMPRESSION: Severe degenerative changes in the left knee with no acute osseous abnormality. Reading Location: [facility] CC: Dr. Dc Glez MD [employer] Operator: Signed Normal [facility] LDL calc ser/plasOrdered By: Dc Glez on 04-25-2024 Cholesterol in LDL [Mass/Vol] 129 mg/dL [facility] Comment on above: Mrgmcezcwx=505-569 m g/dL & Higher Ilpo=598 mg/dL or greater LDL Cholesterol, Calculated 129 mg/dL [facility] Comment on above: Wbimgupcey=448-728 m g/dL & Higher Uoag=461 mg/dL or greater Laboratory - Chemistry and C hemistry - challengeOrdered By: Dc Glez on 04-25-2024 AST [Catalytic activity/Vol] 20 U/L <38 [facility] Lipid Profileon 04-25-2024 CHOL:HDL 5.36 Normal [facility] Comment on above: Performed By: #### L 3100.5310, L500.4050, L500.4100, L501.9940 #### [facility] [address] [place], [place], [id number] Cholesterol [Mass/Vol] 214 mg/dL High <=200 [facility] Comment on above: Result Comment: Chol esterol level, Desirable <200 mg/dL Borderline high cholesterol 200-239 mg/dL High cholesterol >=240 mg/dL Recommendations of the NCEP Adult Treatment Panel for the following risk-cutoff thresholds for the [place] population. Performed By: #### L 3100.5310, L500.4050, L500.4100, L501.9940 #### [facility] [address] [place], [address] Cholesterol in HDL [Mass/Vol] 40 mg/dL Normal [facility] Comment on above: Result Comment: Sammi onal Cholesterol Education Program (NCEP) guidelines: <40 mg/dL: Low HDL-cholesterol (major risk factor for CHD) >= 60 mg/dL: High HDL-cholesterol (negative risk factor for CHD) HDL-cholesterol is affected by a number of factors, e.g. smoking, exercise, hormones, sex and age. Performed By: #### L 3100.5310, L500.4050, L500.4100, L501.9940 #### [facility] [address] [place], [address] Cholesterol in LDL [Mass/Vol] 129 mg/dL Normal [facility] Comment on above: Result Comment: Bord zpvmep=025-933 mg/dL Higher Orxs=177 mg/dL or greater Performed By: #### L 3100.5310, L500.4050, L500.4100, L501.9940 #### [facility] [address] [place], [address] Cholesterol in VLDL [Mass/Vol] 45 mg/dL High 5-40 [facility] Comment on above: Performed By: #### L 3100.5310, L500.4050, L500.4100, L501.9940 #### [facility] [address] [place], [address] Triglyceride [Mass/Vol] 227 mg/dL High [facility] Comment on above: Result Comment: The drugs N-Acetylcysteine and Metamizole may falsely depress this assay. Normal range: <150 mg/dL Borderline High: 150-199 mg/dL High: 200-499 mg/dL Very High: >500 mg/dL Performed By: #### L 3100.5310, L500.4050, L500.4100, L501.9940 #### [facility] [address] [place], [address] PSA,Total- Diagnosticon 03-0 PSA, DIAGNOSTIC 0.96 ng/mL Normal 0.00-4.00 [facility] Comment on above: Result Comment: This test was performed using the [employer] tPSA method. Measured values of a patient??sample can vary depending on the testing procedure used. PSA values determined on patient samples by different testing procedures cannot be used interchangeably. If there is a change in PSA assays while monitoring therapy, sequential testing should be performed to confirm baseline values. Performed By: #### L 3100.5310, L500.4050, L500.4100, L501.9940 #### [facility] [address] [place], [place], [address] Potassium (Unsp spec) [Mass/ Vol]Ordered By: Dc Glez on 04-25-2024 Potassium [Moles/Vol] 4.6 mmol/L 3.3-5.1 [facility] Potassium measurement (mass/ volume)Ordered By: Dc Glez on 04-25-2024 Potassium (Unsp spec) [Mass/Vol] 4.6 mmol/L 3.3-5.1 [facility] Screening total cholesterol/ high density lipoprotein (HDL) cholesterol ratioOrdered By: Dc Glez on 04-25-2024 Cholesterol.total/Chol esterol in HDL [Mass ratio] 5.36 {ratio} [facility] Serum creatinine measurement (mass/volume)Ordered By: Dc Glez on 04-25-2024 Creatinine [Mass/Vol] 1.17 mg/dL 0.70-1.20 [facility] Serum globulin measurementOr dered By: Dc Glez on 04-25-2024 Globulin (S) [Mass/Vol] 3.3 g/dL 2.2-4.2 [facility] Serum glucose measurement (m ass/volume)Ordered By: Dc Glez on 04-25-2024 Glucose [Mass/Vol] 94 mg/dL 70-99 [facility] Serum or plasma alanine villela otransferase (ALT) measurementOrdered By: Dc Glez on 04-25-2024 ALT [Catalytic activity/Vol] 11 U/L <47 [facility] Serum or plasma albumin wilma urement (mass/volume)Ordered By: Dc Glez on 04-25-2024 Albumin [Mass/Vol] 4.0 g/dL 3.4-4.8 [facility] Serum or plasma albumin/glob ulin mass ratioOrdered By: Dc Glez on 04-25-2024 Albumin/Globulin [Mass ratio] 1.2 {ratio} 0.9-2.4 [facility] Serum or plasma alkaline jose c sphatase measurementOrdered By: Dc Glez on 04-25-2024 ALP [Catalytic activity/Vol] 104 U/L 40-129 [facility] Serum or plasma calcium wilma urement (mass/volume)Ordered By: Dc Glez on 04-25-2024 Calcium [Mass/Vol] 9.3 mg/dL 7.6-11.0 [facility] Serum or plasma cholesterol in HDL measurement (mass/volume)Ordered By: Dc Glez on 04-25-2024 Cholesterol in HDL [Mass/Vol] 40 mg/dL >40 [facility] Comment on above: National Cholesterol Education Program (NCEP) guidelines:<40 mg/dL: Low HDL-cholesterol (major risk factor for CHD)>= 60 mg/dL: High HDL-cholesterol (negative risk factor for CHD)HDL-cholesterol is affected by a number of factors, e.g. smoking, exercise, hormones, sex and age. Serum or plasma cholesterol measurement (mass/volume)Ordered By: Dc Glez on 04-25-2024 Cholesterol [Mass/Vol] 214 mg/dL High <201 [facility] Comment on above: Cholesterol level, D esirable <200 mg/dLBorderline high cholesterol 200-239 mg/dLHigh cholesterol >=240 mg/dLRecommendations of the NCEP Adult Treatment Panel for the following risk-cutoff thresholds for the [place] population. Serum or plasma free testost erone measurement (mass/volume)Ordered By: Dc Glez on 04-25-2024 Testosterone Free [Mass/Vol] 11.62 ng/dL 5.00-21.00 [facility] Serum or plasma urea nitroge n measurement (mass/volume)Ordered By: Dc Glez on 04-25-2024 Urea nitrogen [Mass/Vol] 15 mg/dL 4-19 [facility] Sodium levelOrdered By: Dc Glez on 04-25-2024 Sodium [Moles/Vol] 140 mmol/L 133-145 [facility] Testosterone Free [Mass/Vol] Ordered By: Dc Glez on 04-25-2024 Free Testosterone 11.62 ng/dL 5.00-21.00 [facility] Testosterone Free/Testostero ne.total [Mass fraction]Ordered By: Dc Glez on 04-25-2024 Percent Free Testosterone 3.01 % 1.50-4.20 [facility] Comment on above: Performed at: [address] [id number] Director: Ronnie Raymond PhD, Phone: [phone] at: [facility] [id number] Director: Sunday Chavez MD, Phone: [phone] Testosterone, totalOrdered B y: Dc Glez on 04-25-2024 Testosterone [Mass/Vol] 386 ng/dL 264-916 [facility] Comment on above: Adult male reference interval is based on a population ofhealthy nonobese males (BMI <30) between 19 and 39 yearsold. Vandana, et.al. JCEM 2017,102;6044-7324. PMID:[id number]. Total proteinOrdered By: Rocio Glez on 04-25-2024 Protein [Mass/Vol] 7.3 g/dL 5.9-8.4 [facility] Triglycerides measurementOrd ered By: Dc Glez on 04-25-2024 Triglyceride [Mass/Vol] 227 mg/dL High <199 [facility] Comment on above: The drugs N-Acetylcy steine and Metamizole may falsely depress this assay. Normal range: <150 mg/dLBorderline High: 150-199 mg/dLHigh: 200-499 mg/dLVery High: >500 mg/dL 12 Lead EKG performed by [facility] on 01-11-2024 12 Lead EKG performed by [facility] [address] [place] [address] 12 Lead EKG performed by [facility] 01/11/24803 MR#: [id number] Acct: [id number] Name: HUNG PECK Rep #: [id number] : 1960 63 From: Kia Barrett Attending Dr: MAE Hernández Status: DEP AMB Ordering Dr: Kia Kirkpatrick Date: 12/23 Location: [facility] Sex: M C Admitted: [facility]/12 Lead EKG performed by [facility] ECG Report Interpretation El ectronic ventricular pacemaker -possibly demand type Pacemaker ECG, No further analysis INSUFFICIENT DATAElectronically signed on 01/27/2024 at 16:36 by Trae Cano [employer] Version [id number] 01/27/24 1638 Date Kia WALL CC: Dr. Dc Glez MD Date Dictated: 01/11/24803 Date Transcribed: 01/11/24803 [employer] Operator: NICOLA Signed Normal [facility] Cardiology Visit Reporton Cardiology Visit Report [facility] [address] [place] [address] OFFICE VISIT Date of Service: 01/11/24 MR#: [id number] Acct: [id number] Name: HUNG PECK Rep #: [id number] : 1960 Provider: MAE Miller Age/Sex: 63/M [place] [facility] [place]: Signed HPI HPI History of Present Illness Details: HUNG PECK, is a 63 year old white male with a hx of syncope, PACs/PVCs, atrial fibrillation, wide-complex tachycardia with differential of a ventricular rhythm versus atrial fibrillation with aberrancy, and factor V Leiden deficiency with previous thromboembolic events. Patient was admitted and evaluated at [facility] in October 2021 for symptomatic bradycardia. Echocardiogram on 11/10/2021 showed ejection fraction 60%, mildly enlarged left atrium, mild mitral valve insufficiency, and RVSP of 36 mmHg. Heart catheterization on 11/12/2021 showed single-vessel mild coronary artery disease of the LAD. He underwent pacemaker placement on 11/19/[address] Rios for sick sinus syndrome. He did undergo a DCCV 12/13/22. Pt was hospitalized in February 2023 for near-syncope and atrial fibrillation with RVR. Remote report from 03/04/2023 showed 60% cumulative atrial arrhythmia burden with 2274 high ventricular rate episodes. His metoprolol was reduced on account of orthostatic changes and reduced systolic blood pressure at 70 mmHg. It is noted that he is intolerant to amiodarone. He underwent DC cardioversion successfully and also underwent sotalol loading. In September patient was noted to be in atrial fibrillation. He was not aware of this. Patient was initially scheduled to undergo a cardioversion in November 22, 2023. At that time he was noted to be in sinus rhythm. Recent pacemaker interrogation did demonstrate ongoing atrial fibrillation since December 15, 2023. Pacemaker interrogation demonstrated to decreases in atrial fibrillation burden of 53%. It was discussed with him about pursuing another cardioversion however patient declined. He is currently taking care of his . And would like to wait till after the first of the year. Pt is not symptomatic with his atrial fib. He does not have any chest pain/heaviness/worsening SOB. He does not have any lightheadedness/dizziness. 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3 mL) IM Q10M PRN PRN 02/06/22 01/11/24 Rx injection, auto-injector (EpiPen anaphylaxis #2 ea 2-[place]) sotalol 120 mg tablet 120 mg PO BID 30 days #60 tabs 08/01/23 01/11/24 Rx fludrocortisone 0.1 mg tablet 0.1 mg PO DAILY hypotension #90 10/05/23 01/11/24 Rx tabs tamsulosin 0.4 mg capsule (Flomax) 0.4 mg PO QHS 10/07/23 01/11/24 History rivaroxaban 20 mg tablet 20 mg PO DAILY blood thinner #90 10/31/23 01/11/24 Rx tabs Have you fallen in the past year?: No PFSH Medical History History of cardioversion Persistent atrial fibrillation Atrial flutter with rapid ventricular response Atrial flutter Presence of cardiac pacemaker History of left heart catheterization (LHC) ( 11/12/21) 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 Paroxysmal atrial fibrillation Wide-complex tachycardia Asymptomatic premature ventricular contractions Premature atrial contraction Syncope and collapse Hematuria Factor V Leiden Abscess of right thigh DAYNA (acute kidney injury) Coagulopathy Septic shock Fever with exanthematous rash 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 knee joint Atrial fibrillation with RVR Elevated LFTs Acute cystitis Severe sepsis Anemia History of pulmonary embolism History of DVT (deep vein thrombosis) Surgical History History of ankle surgery Status post total right knee replacement Family History Mother Ulcerative colitis Grandfather No problems noted. Father Diabete (more content not included)... Normal [facility] Basophil percentageOrdered B y: Trae Cano on 05-14-2023 Basophil percentage 2.7 mg/dL 2.5-4.9 [facility] Chloride [Moles/Vol] 108 mmol/L 98-107 [facility] Glucose [Mass/Vol] 96 mg/dL 74-106 [facility] Potassium [Moles/Vol] 4.1 mmol/L 3.5-5.1 [facility] Sodium [Moles/Vol] 140 mmol/L 136-145 [facility] Laboratory - Chemistry and C hemistry - challengeOrdered By: Trae Cano on 05-14-2023 CO2 [Moles/Vol] 28.0 mmol/L 21.0-32.0 [facility] Magnesium [Mass/Vol] 2.4 mg/dL 1.6-2.6 [facility] Urea nitrogen/Creatinine [Mass ratio] 20.0 mg/mg 10-20 [facility] No Panel InformationOrdered By: Trae Cano on 05-14-2023 Estimated Creatinine Clearance Calc 99.19 ml/min [facility] Estimated GFR (MDRD) Amer 97 mL/min >60 [facility] Comment on above: GFR Calc Estimated GFR (MDRD) Non-Af Amer 80 mL/min >60 [facility] Comment on above: Non- GFR Calc Serum or plasma calcium wilma urement (mass/volume)Ordered By: Trae Cano on 05-14-2023 Calcium [Mass/Vol] 8.3 mg/dL 8.5-10.1 [facility] Serum or plasma creatinine m easurement (mass/volume)Ordered By: Trae Cano on 05-14-2023 Creatinine [Mass/Vol] 1.00 mg/dL 0.70-1.30 [facility] Comment on above: The validity of the calculated GFR & GFRAA in patients over 70 years has not been determined. Clinical correlation is essential. Serum or plasma urea nitroge n measurement (mass/volume)Ordered By: Trae Cano on 05-14-2023 Urea nitrogen [Mass/Vol] 20 mg/dL 7-18 [facility] Thin prep Papanicolaou smear with manual screeningOrdered By: Trae Cano on 05-14-2023 Thin prep Papanicolaou smear with manual screening 4 5-15 [facility] Absolute lymphocyte countOrd ered By: Ann Marie Colindres on 03-12-2023 Lymphocytes Auto (Unsp spec) [#/Vol] 0.82 10*3/uL 0.83-4.51 [facility] Automated lymphocyte count a s percentage of total leukocytesOrdered By: Ann Marie Colindres on 03-12-2023 Lymphocytes/100 WBC Auto (Unsp spec) 12.5 % 19-41 [facility] Basophil percentageOrdered B y: Ann Marie Colindres on 03-12-2023 Basophil percentage 3.2 mg/dL 2.5-4.9 [facility] Basophils/100 WBC (Bld) 0.3 % 0-1 [facility] Bilirubin [Mass/Vol] 1.40 mg/dL 0.20-1.00 [facility] Comment on above: For patients on eltr ombopag therapy, use of Dimension Frederica TBIL is not recommended. Chloride [Moles/Vol] 109 mmol/L 98-107 [facility] Eosinophils/100 WBC (Bld) 7.0 % 0-5 [facility] Glucose [Mass/Vol] 108 mg/dL 74-106 [facility] Comment on above: Fasting Glucose resu lt from 100 to 125 mg/dL suggests IMPAIRED HOMEOSTASIS per A.D.A. criteria. Hemoglobin (Bld) [Mass/Vol] 16.5 g/dL 13.0-16.5 [facility] Monocytes/100 WBC (Bld) 6.0 % 0-10 [facility] Neutrophils (Bld) [#/Vol] 4.8 10*3/uL 2.0-7.7 [facility] Neutrophils/100 WBC (Bld) 73.7 % 47-70 [facility] Potassium [Moles/Vol] 4.7 mmol/L 3.5-5.1 [facility] Protein [Mass/Vol] 6.5 g/dL 6.4-8.2 [facility] Sodium [Moles/Vol] 137 mmol/L 136-145 [facility] WBC (Bld) [#/Vol] 6.6 10*3/uL 4.4-11.0 [facility] Determination of erythrocyte mean corpuscular volume (MCV)Ordered By: Ann Marie Colindres on 03-12-2023 MCV (RBC) [Entitic vol] 90.9 fL 80-94 [facility] Erythrocyte distribution wid th ratioOrdered By: Ann Marie Colindres on 03-12-2023 Erythrocyte distribution width (RBC) [Ratio] 13.0 % 11.6-14.6 [facility] Erythrocyte distribution wid th standard deviationOrdered By: Ann Marie Colindres on 03-12-2023 Erythrocyte distribution width (RBC) [Entitic vol] 43.6 fL 35.1-43.9 [facility] Hematocrit Auto (Bld) [Volum e fraction]Ordered By: Ann Marie Colindres on 03-12-2023 Hematocrit (Bld) [Volume fraction] 51.1 % 40-54 [facility] Immature granulocytes/100 WB C Auto (Bld)Ordered By: Ann Marie Colindres on 03-12-2023 Immature granulocytes/100 WBC (Bld) 0.500 % 0.0-0.9 [facility] Comment on above: IG% - Immature Granu locytes (promyelocytes, myelocytes and metamyelocytes) > 1% indicates that a LEFT SHIFT is Present. Laboratory - Chemistry and C hemistry - challengeOrdered By: Ann Marie Colindres on 03-12-2023 Albumin/Globulin [Mass ratio] 0.8 {ratio} 0.9-2.4 [facility] ALP [Catalytic activity/Vol] 95 U/L 45-117 [facility] ALT [Catalytic activity/Vol] 16 U/L 16-61 [facility] CO2 [Moles/Vol] 23.0 mmol/L 21.0-32.0 [facility] Globulin (S) [Mass/Vol] 3.6 g/dL 2.2-4.2 [facility] Magnesium [Mass/Vol] 2.3 mg/dL 1.6-2.6 [facility] Urea nitrogen/Creatinine [Mass ratio] 14.0 mg/mg 10-20 [facility] Laboratory - Hematology and Cell countsOrdered By: Ann Marie Colindres on 03-12-2023 MCH (RBC) [Entitic mass] 29.4 pg 27.0-32.0 [facility] MCHC (RBC) [Mass/Vol] 32.3 g/dL 32-36 [facility] Nucleated RBC/100 WBC (Bld) [Ratio] 0 % 0-5 [facility] Platelets (Bld) [#/Vol] 156 10*3/uL 150-450 [facility] No Panel InformationOrdered By: Ann Marie Colindres on 03-12-2023 Estimated Creatinine Clearance Calc 92.66 ml/min [facility] Estimated GFR (MDRD) Amer 90 mL/min >60 [facility] Comment on above: GFR Calc Estimated GFR (MDRD) Non-Af Amer 74 mL/min >60 [facility] Comment on above: Non- GFR Calc Platelet mean volume Tereso-Ec ker (Bld) [Entitic vol]Ordered By: Ann Marie Colindres on 03-12-2023 Platelet mean volume (Bld) [Entitic vol] 10.4 fL 6.2-12.0 [facility] RBC Auto (Bld) [#/Vol]Ordere d By: Ann Marie Colindres on 03-12-2023 RBC (Bld) [#/Vol] 5.62 10*6/uL 4.6-6.2 [facility] Serum or plasma calcium wilma urement (mass/volume)Ordered By: Ann Marie Colindres on 03-12-2023 Calcium [Mass/Vol] 8.7 mg/dL 8.5-10.1 [facility] Serum or plasma cortisol clare surement (mass/volume)Ordered By: Ann Marie Colindres on 03-12-2023 Cortisol [Mass/Vol] 21.90 ug/dL 3.44-22.45 [facility] Comment on above: Adult (AM) 5.27 - 22 .45 ug/dL Adult (PM) 3.44 - 16.76 ug/dLPlease note revised CORTISOL reference range effective 2019. Serum or plasma creatinine m easurement (mass/volume)Ordered By: Ann Marie Colindres on 03-12-2023 Creatinine [Mass/Vol] 1.07 mg/dL 0.70-1.30 [facility] Comment on above: The validity of the calculated GFR & GFRAA in patients over 70 years has not been determined. Clinical correlation is essential. Serum or plasma thyroid stim ulating hormone (TSH) measurement (units/volume)Ordered By: Ann Marie Colindres on 03-12-2023 TSH Qn 0.91 uIU/mL 0.358-3.74 [facility] Serum or plasma urea nitroge n measurement (mass/volume)Ordered By: Ann Marie Colindres on 03-12-2023 Urea nitrogen [Mass/Vol] 15 mg/dL 7-18 [facility] Thin prep Papanicolaou smear with manual screeningOrdered By: Ann Marie Colindres on 03-12-2023 Thin prep Papanicolaou smear with manual screening 2.9 g/dL 3.2-5.0 [facility] Thin prep Papanicolaou smear with manual screening 15 U/L 15-37 [facility] Thin prep Papanicolaou smear with manual screening 5 5-15 [facility] Absolute lymphocyte countOrd ered By: Rene Gunter on 03-11-2023 Lymphocytes Auto (Unsp spec) [#/Vol] 0.97 10*3/uL 0.83-4.51 [facility] Automated lymphocyte count a s percentage of total leukocytesOrdered By: Rene Gunter on 03-11-2023 Lymphocytes/100 WBC Auto (Unsp spec) 11.6 % 19-41 [facility] Basophil percentageOrdered B y: Rene Gunter on 03-11-2023 Basophils/100 WBC (Bld) 0.5 % 0-1 [facility] Chloride [Moles/Vol] 103 mmol/L 98-107 [facility] Eosinophils/100 WBC (Bld) 3.6 % 0-5 [facility] Glucose [Mass/Vol] 124 mg/dL 74-106 [facility] Comment on above: Fasting Glucose resu lt from 100 to 125 mg/dL suggests IMPAIRED HOMEOSTASIS per A.D.A. criteria. Hemoglobin (Bld) [Mass/Vol] 17.9 g/dL 13.0-16.5 [facility] Monocytes/100 WBC (Bld) 6.5 % 0-10 [facility] Neutrophils (Bld) [#/Vol] 6.5 10*3/uL 2.0-7.7 [facility] Neutrophils/100 WBC (Bld) 77.6 % 47-70 [facility] Potassium [Moles/Vol] 3.7 mmol/L 3.5-5.1 [facility] Sodium [Moles/Vol] 137 mmol/L 136-145 [facility] WBC (Bld) [#/Vol] 8.4 10*3/uL 4.4-11.0 [facility] Determination of erythrocyte mean corpuscular volume (MCV)Ordered By: Rene Gunter on 03-11-2023 MCV (RBC) [Entitic vol] 91.6 fL 80-94 [facility] Erythrocyte distribution wid th ratioOrdered By: Rene Gunter on 03-11-2023 Erythrocyte distribution width (RBC) [Ratio] 12.8 % 11.6-14.6 [facility] Erythrocyte distribution wid th standard deviationOrdered By: Rene Gunter on 03-11-2023 Erythrocyte distribution width (RBC) [Entitic vol] 43.6 fL 35.1-43.9 [facility] Hematocrit Auto (Bld) [Volum e fraction]Ordered By: Rene Gunter on 03-11-2023 Hematocrit (Bld) [Volume fraction] 56.5 % 40-54 [facility] Immature granulocytes/100 WB C Auto (Bld)Ordered By: Rene Gunter on 03-11-2023 Immature granulocytes/100 WBC (Bld) 0.200 % 0.0-0.9 [facility] Comment on above: IG% - Immature Granu locytes (promyelocytes, myelocytes and metamyelocytes) > 1% indicates that a LEFT SHIFT is Present. Laboratory - Chemistry and C hemistry - challengeOrdered By: Rene Gunter on 03-11-2023 CO2 [Moles/Vol] 28.0 mmol/L 21.0-32.0 [facility] Urea nitrogen/Creatinine [Mass ratio] 14.2 mg/mg 10-20 [facility] Laboratory - Hematology and Cell countsOrdered By: Rene Gunter on 03-11-2023 MCH (RBC) [Entitic mass] 29.0 pg 27.0-32.0 [facility] MCHC (RBC) [Mass/Vol] 31.7 g/dL 32-36 [facility] Nucleated RBC/100 WBC (Bld) [Ratio] 0 % 0-5 [facility] Platelets (Bld) [#/Vol] 175 10*3/uL 150-450 [facility] Laboratory - Microbiology an d Antimicrobial susceptibilityOrdered By: Rene Gunter on 03-11-2023 SARS-CoV-2 (COVID-19) RNA BROOKS+probe Ql (Unsp spec) [facility] SARS-CoV-2 (COVID-19) RNA BROOKS+probe Ql (Unsp spec) [facility] Bacteria identified Cx Nom (Bld) No growth in 5 days. [facility] No Panel InformationOrdered By: Rene Gunter on 03-11-2023 Estimated Creatinine Clearance Calc 87.89 ml/min [facility] Estimated GFR (MDRD) Amer 85 mL/min >60 [facility] Comment on above: GFR Calc Estimated GFR (MDRD) Non-Af Amer 70 mL/min >60 [facility] Comment on above: Non- GFR Calc Troponin I High Sensitivity 10 pg/mL 3.0-78.0 [facility] Comment on above: Please Note: New Marry t Units and Gender Specific Reference Ranges. For more information see Policy Stat Procedure Frederica High Sensitivity Troponin (TNIH) and attachments. Platelet mean volume Tereso-Ec ker (Bld) [Entitic vol]Ordered By: Rene Gunter on 03-11-2023 Platelet mean volume (Bld) [Entitic vol] 10.9 fL 6.2-12.0 [facility] RBC Auto (Bld) [#/Vol]Ordere d By: Rene Gunter on 03-11-2023 RBC (Bld) [#/Vol] 6.17 10*6/uL 4.6-6.2 [facility] Serum or plasma calcium wilma urement (mass/volume)Ordered By: Rene Gunter on 03-11-2023 Calcium [Mass/Vol] 8.9 mg/dL 8.5-10.1 [facility] Serum or plasma creatinine m easurement (mass/volume)Ordered By: Rene Gunter on 03-11-2023 Creatinine [Mass/Vol] 1.13 mg/dL 0.70-1.30 [facility] Comment on above: The validity of the calculated GFR & GFRAA in patients over 70 years has not been determined. Clinical correlation is essential. Serum or plasma urea nitroge n measurement (mass/volume)Ordered By: Rene Gunter on 03-11-2023 Urea nitrogen [Mass/Vol] 16 mg/dL 7-18 [facility] Thin prep Papanicolaou smear with manual screeningOrdered By: Rene Gunter on 03-11-2023 Thin prep Papanicolaou smear with manual screening 6 5-15 [facility] No Panel InformationOrdered By: Duncan Spencer on 03-02-2023 Miscellaneous Test See comment [facility] Comment on above: TEST RESULTS [facility] lass Description: Levels of Specific IgE Class Description of Class ----- < 0.10 0 Negative 0.10 - 0.31 0/I Equivocal/Low 0.32 - 0.55 I Low 0.56 - 1.40 II Moderate 1.41 - 3.90 III High 3.91 - 19.00 IV Very High19.01 - 100.00 V Very High >100.00 Very HighImmunoglobulin E, Total 1139 High IU/mL [id number] Alpha-Gal <0.10 kU/L Class [id number] Beef 0.11 Abnormal kU/L Class 0/[id number]-[id number] Pork <0.10 kU/L Class [id number] Mcintosh 0.18 Abnormal kU/L Class 0/I TESTING PERFORMED AT [facility]. ORIGINAL REPORT ON FILE IN LAB CONTAINS ADDITIONAL TEST SITE INFORMATION. Tryptase 7.7 ug/L 2.2-13.2 [facility] Serum or plasma complement C 4 measurement (mass/volume)Ordered By: Duncan Spencer on 03-02-2023 Complement C4 [Mass/Vol] 32 mg/dL 12-38 [facility] Serum or plasma functional c omplement C1 esterase inhibitor detectionOrdered By: Duncan Spencer on 03-02-2023 Complement C1 esterase inhibitor.functional Ql >93 . [facility] Comment on above: Result Units: %mean normal Abnormal <41 Equivocal 41 - 67 Normal >67Performed at: [facility] [id number] [place], [place] [id number] Director: Ronnie Raymond PhD, Phone: [phone] at: [facility] [id number] Director: Sunday Chavez MD, Phone: [phone] Basophil percentageOrdered B y: Dc Glez on 11-17-2022 Chloride [Moles/Vol] 106 mmol/L 98-107 [facility] Cholesterol [Mass/Vol] 212 mg/dL <200 [facility] Comment on above: <200 mg/dL Desirable 200-240 mg/dL Borderline >240 mg/dL High Risk Glucose [Mass/Vol] 79 mg/dL 74-106 [facility] Potassium [Moles/Vol] 4.7 mmol/L 3.5-5.1 [facility] Sodium [Moles/Vol] 138 mmol/L 136-145 [facility] Triglyceride [Mass/Vol] 242 mg/dL <199 [facility] Comment on above: The drugs N-Acetylcy steine and Metamizole may falsely depress this assay.Serum Triglycerides Reference Interval Normal <150 mg/dL Borderline high 150 - 199 mg/dL High 200 - 499 mg/dL Very High > or = 500 mg/dL Laboratory - Chemistry and C hemistry - challengeOrdered By: Dc Glez on 11-17-2022 CO2 [Moles/Vol] 28.0 mmol/L 21.0-32.0 [facility] Urea nitrogen/Creatinine [Mass ratio] 18.3 mg/mg 10- [facility] No Panel InformationOrdered By: Dc Glez on 11-17-2022 Estimated GFR (MDRD) Amer 88 mL/min >60 [facility] Comment on above: GFR Calc Estimated GFR (MDRD) Non-Af Amer 73 mL/min >60 [facility] Comment on above: Non- GFR Calc Serum or plasma calcium wilma urement (mass/volume)Ordered By: Dc Glez on 11-17-2022 Calcium [Mass/Vol] 9.6 mg/dL 8.5-10.1 [facility] Serum or plasma cholesterol in HDL measurement (mass/volume)Ordered By: Dc Glez on 11-17-2022 Cholesterol in HDL [Mass/Vol] 38 mg/dL >40 [facility] Comment on above: The drugs N-Acetylcy steine and Metamizole may falsely depress this assay. Reference Range HDL <40 mg/dL Low HDL Cholesterol HDL >or= 60 mg/dL High HDL Cholesterol Serum or plasma cholesterol in VLDL measurement (mass/volume)Ordered By: Dc Glez on 11-17-2022 Cholesterol in VLDL [Mass/Vol] 48 mg/dL 5-40 [facility] Serum or plasma creatinine m easurement (mass/volume)Ordered By: Dc Glez on 11-17-2022 Creatinine [Mass/Vol] 1.09 mg/dL 0.70-1.30 [facility] Comment on above: The validity of the calculated GFR & GFRAA in patients over 70 years has not been determined. Clinical correlation is essential. Serum or plasma low density lipoprotein (LDL) cholesterol measurement (mass/volume)Ordered By: Dc Glez on 11-17-2022 Cholesterol in LDL [Mass/Vol] 126 mg/dL 0-130 [facility] Serum or plasma urea nitroge n measurement (mass/volume)Ordered By: Dc Glez on 11-17-2022 Urea nitrogen [Mass/Vol] 20 mg/dL 7-18 [facility] Thin prep Papanicolaou smear with manual screeningOrdered By: Dc Glez on 11-17-2022 Thin prep Papanicolaou smear with manual screening 4 5-15 [facility] Absolute lymphocyte countOrd ered By: Dc Glez on 11-11-2022 Lymphocytes Auto (Unsp spec) [#/Vol] 1.03 10*3/uL 0.83-4.51 [facility] Basophil percentageOrdered B y: Dc Glez on 11-11-2022 Basophils/100 WBC (Bld) 1.0 % 0-1 [facility] Eosinophils/100 WBC (Bld) 2.0 % 0-5 [facility] Neutrophils (Bld) [#/Vol] 4.2 10*3/uL 2.0-7.7 [facility] Neutrophils/100 WBC (Bld) 70.1 % 47-70 [facility] WBC (Bld) [#/Vol] 5.9 10*3/uL 4.4-11.0 [facility] Blood erythrocytes count (nu mber/volume)Ordered By: Dc Glez on 11-11-2022 RBC (Bld) [#/Vol] 5.64 10*6/uL 4.6-6.2 [facility] Blood hemoglobin measurement (mass/volume)Ordered By: Dc Gelz on 11-11-2022 Hemoglobin (Bld) [Mass/Vol] 16.9 g/dL 13.0-16.5 [facility] Blood lymphocytes/100 leukoc ytesOrdered By: Dc Glez on 11-11-2022 Lymphocytes/100 WBC (Bld) 17.3 % 19-41 [facility] Blood monocytes/100 leukocyt esOrdered By: Dc Glez on 11-11-2022 Monocytes/100 WBC (Bld) 9.4 % 0-10 [facility] Blood platelet mean volumeOr dered By: Dc Glez on 11-11-2022 Platelet mean volume (Bld) [Entitic vol] 11.4 fL 6.2-12.0 [facility] Determination of erythrocyte mean corpuscular volume (MCV)Ordered By: Dc Glez on 11-11-2022 MCV (RBC) [Entitic vol] 93.6 fL 80-94 [facility] Hematocrit Auto (Bld) [Volum e fraction]Ordered By: Dc Glez on 11-11-2022 Hematocrit (Bld) [Volume fraction] 52.8 % 40-54 [facility] Laboratory - Hematology and Cell countsOrdered By: Dc Glez on 11-11-2022 Erythrocyte distribution width (RBC) [Entitic vol] 45.1 fL 35.1-43.9 [facility] Erythrocyte distribution width (RBC) [Ratio] 13.0 % 11.6-14.6 [facility] Immature granulocytes/100 WBC (Bld) 0.200 % 0.0-0.9 [facility] Comment on above: IG% - Immature Granu locytes (promyelocytes, myelocytes and metamyelocytes) > 1% indicates that a LEFT SHIFT is Present. MCH (RBC) [Entitic mass] 30.0 pg 27.0-32.0 [facility] Nucleated RBC/100 WBC (Bld) [Ratio] 0 % 0-5 [facility] MCHC Auto (RBC) [Mass/Vol]Or dered By: Dc Glez on 11-11-2022 MCHC (RBC) [Mass/Vol] 32.0 g/dL 32-36 [facility] Platelets bldOrdered By: Rocio Glez on 11-11-2022 Platelets (Bld) [#/Vol] 201 10*3/uL 150-450 [facility] Absolute lymphocyte countOrd ered By: Dr. Glez on 05-20-2022 Lymphocytes Auto (Unsp spec) [#/Vol] 1.77 10*3/uL 0.83-4.51 [facility] Basophil percentageOrdered B y: Dr. Glez on 05-20-2022 Basophils/100 WBC (Bld) 1.2 % 0-1 [facility] Chloride [Moles/Vol] 106 mmol/L 98-107 [facility] Eosinophils/100 WBC (Bld) 1.5 % 0-5 [facility] Glucose [Mass/Vol] 82 mg/dL 74-106 [facility] Neutrophils (Bld) [#/Vol] 4.3 10*3/uL 2.0-7.7 [facility] Neutrophils/100 WBC (Bld) 63.4 % 47-70 [facility] Potassium [Moles/Vol] 4.7 mmol/L 3.5-5.1 [facility] Sodium [Moles/Vol] 141 mmol/L 136-145 [facility] WBC (Bld) [#/Vol] 6.9 10*3/uL 4.4-11.0 [facility] Blood erythrocytes count (nu mber/volume)Ordered By: Dr. Glez on 05-20-2022 RBC (Bld) [#/Vol] 5.70 10*6/uL 4.6-6.2 [facility] Blood hemoglobin measurement (mass/volume)Ordered By: Dr. Glez on 05-20-2022 Hemoglobin (Bld) [Mass/Vol] 17.1 g/dL 13.0-16.5 [facility] Blood lymphocytes/100 leukoc ytesOrdered By: Dr. Glez on 05-20-2022 Lymphocytes/100 WBC (Bld) 25.8 % 19-41 [facility] Blood monocytes/100 leukocyt esOrdered By: Dr. Glez on 05-20-2022 Monocytes/100 WBC (Bld) 8.0 % 0-10 [facility] Blood platelet mean volumeOr dered By: Dr. Glez on 05-20-2022 Platelet mean volume (Bld) [Entitic vol] 11.5 fL 6.2-12.0 [facility] Determination of erythrocyte mean corpuscular volume (MCV)Ordered By: Dr. Glez on 05-20-2022 MCV (RBC) [Entitic vol] 93.7 fL 80-94 [facility] Hematocrit Auto (Bld) [Volum e fraction]Ordered By: Dr. Glez on 05-20-2022 Hematocrit (Bld) [Volume fraction] 53.4 % 40-54 [facility] Laboratory - Chemistry and C hemistry - challengeOrdered By: Dr. Glez on 05-20-2022 CO2 [Moles/Vol] 30.0 mmol/L 21.0-32.0 [facility] Urea nitrogen/Creatinine [Mass ratio] 11.3 mg/mg 10-20 [facility] Laboratory - Hematology and Cell countsOrdered By: Dr. Glez on 05-20-2022 Erythrocyte distribution width (RBC) [Entitic vol] 44.7 fL 35.1-43.9 [facility] Erythrocyte distribution width (RBC) [Ratio] 13.0 % 11.6-14.6 [facility] Immature granulocytes/100 WBC (Bld) 0.100 % 0.0-0.9 [facility] Comment on above: IG% - Immature Granu locytes (promyelocytes, myelocytes and metamyelocytes) > 1% indicates that a LEFT SHIFT is Present. MCH (RBC) [Entitic mass] 30.0 pg 27.0-32.0 [facility] Nucleated RBC/100 WBC (Bld) [Ratio] 0 % 0-5 [facility] MCHC Auto (RBC) [Mass/Vol]Or dered By: Dr. Glez on 05-20-2022 MCHC (RBC) [Mass/Vol] 32.0 g/dL 32-36 [facility] No Panel InformationOrdered By: Dr. Glez on 05-20-2022 Estimated GFR (MDRD) Amer 101 mL/min >60 [facility] Comment on above: GFR Calc Estimated GFR (MDRD) Non-Af Amer 83 mL/min >60 [facility] Comment on above: Non- GFR Calc Thyroid Stimulating Hormone (TSH) 1.86 uIU/mL 0.358-3.74 [facility] Platelets bldOrdered By: Dr. Glez on 05-20-2022 Platelets (Bld) [#/Vol] 212 10*3/uL 150-450 [facility] Serum or plasma calcium wilma urement (mass/volume)Ordered By: Dr. Glez on 05-20-2022 Calcium [Mass/Vol] 8.6 mg/dL 8.5-10.1 [facility] Serum or plasma creatinine m easurement (mass/volume)Ordered By: Dr. Glez on 05-20-2022 Creatinine [Mass/Vol] 0.97 mg/dL 0.70-1.30 [facility] Comment on above: The validity of the calculated GFR & GFRAA in patients over 70 years has not been determined. Clinical correlation is essential. Serum or plasma urea nitroge n measurement (mass/volume)Ordered By: Dr. Glez on 05-20-2022 Urea nitrogen [Mass/Vol] 11 mg/dL 7-18 [facility] Thin prep Papanicolaou smear with manual screeningOrdered By: Dr. Gelz on 05-20-2022 Thin prep Papanicolaou smear with manual screening 5 5-15 [facility] Absolute lymphocyte counton 11-20-2021 Lymphocytes Auto (Unsp spec) [#/Vol] 1.45 10*3/uL 0.83-4.51 [facility] Work Phone: Basophil percentageon 2021 Basophils/100 WBC (Bld) 0.7 % 0-1 [facility] Work Phone: Chloride [Moles/Vol] 106 mmol/L 98-107 [facility] Work Phone: Eosinophils/100 WBC (Bld) 1.8 % 0-5 [facility] Work Phone: Glucose [Mass/Vol] 103 mg/dL 74-106 [facility] Work Phone: Comment on above: Fasting Glucose resu lt from 100 to 125 mg/dL suggests IMPAIRED HOMEOSTASIS per A.D.A. criteria. Neutrophils (Bld) [#/Vol] 7.5 10*3/uL 2.0-7.7 [facility] Work Phone: Neutrophils/100 WBC (Bld) 74.8 % 47-70 [facility] Work Phone: Potassium [Moles/Vol] 3.8 mmol/L 3.5-5.1 [facility] Work Phone: Sodium [Moles/Vol] 141 mmol/L 136-145 [facility] Work Phone: WBC (Bld) [#/Vol] 10.1 10*3/uL 4.4-11.0 [facility] Work Phone: Blood erythrocytes count (nu mber/volume)on 11-20-2021 RBC (Bld) [#/Vol] 4.54 10*6/uL 4.6-6.2 [facility] Work Phone: Blood hemoglobin measurement (mass/volume)on 11-20-2021 Hemoglobin (Bld) [Mass/Vol] 13.9 g/dL 13.0-16.5 [facility] Work Phone: Blood lymphocytes/100 leukoc yteson 11-20-2021 Lymphocytes/100 WBC (Bld) 14.4 % 19-41 [facility] Work Phone: Blood monocytes/100 leukocyt eson 11-20-2021 Monocytes/100 WBC (Bld) 7.9 % 0-10 [facility] Work Phone: Blood platelet mean volumeon 09-30-2022 Platelet mean volume (Bld) [Entitic vol] 9.8 fL 6.2-12.0 [facility] Work Phone: Determination of erythrocyte mean corpuscular volume (MCV)on 11-20-2021 MCV (RBC) [Entitic vol] 91.6 fL 80-94 [facility] Work Phone: Hematocrit Auto (Bld) [Volum e fraction]on 11-20-2021 Hematocrit (Bld) [Volume fraction] 41.6 % 40-54 [facility] Work Phone: [phone] Laboratory - Chemistry and C hemistry - challengeon 11-20-2021 CO2 [Moles/Vol] 29.0 mmol/L 21.0-32.0 [facility] Work Phone: [phone] Urea nitrogen/Creatinine [Mass ratio] 18.1 mg/mg 10-20 [facility] Work Phone: Laboratory - Hematology and Cell countson 11-20-2021 Erythrocyte distribution width (RBC) [Entitic vol] 44.8 fL 35.1-43.9 [facility] Work Phone: [phone] Erythrocyte distribution width (RBC) [Ratio] 13.2 % 11.6-14.6 [facility] Work Phone: [phone] Immature granulocytes/100 WBC (Bld) 0.400 % 0.0-0.9 [facility] Work Phone: Comment on above: IG% - Immature Granu locytes (promyelocytes, myelocytes and metamyelocytes) > 1% indicates that a LEFT SHIFT is Present. MCH (RBC) [Entitic mass] 30.6 pg 27.0-32.0 [facility] Work Phone: [phone] Nucleated RBC/100 WBC (Bld) [Ratio] 0 % 0-5 [facility] Work Phone: [phone] MCHC Auto (RBC) [Mass/Vol]on 11-20-2021 MCHC (RBC) [Mass/Vol] 33.4 g/dL 32-36 [facility] Work Phone: No Panel Informationon 11-20 Estimated Creatinine Clearance Calc 102.49 ml/min [facility] Work Phone: Estimated GFR (MDRD) Amer 113 mL/min >60 [facility] Work Phone: Comment on above: GFR Calc Estimated GFR (MDRD) Non-Af Amer 93 mL/min >60 [facility] Work Phone: Comment on above: Non- GFR Calc Platelets bldon 11-20-2021 Platelets (Bld) [#/Vol] 168 10*3/uL 150-450 [facility] Work Phone: Serum or plasma calcium wilma urement (mass/volume)on 11-20-2021 Calcium [Mass/Vol] 8.7 mg/dL 8.5-10.1 [facility] Work Phone: Serum or plasma creatinine m easurement (mass/volume)on 11-20-2021 Creatinine [Mass/Vol] 0.88 mg/dL 0.70-1.30 [facility] Work Phone: Comment on above: The validity of the calculated GFR & GFRAA in patients over 70 years has not been determined. Clinical correlation is essential. Serum or plasma urea nitroge n measurement (mass/volume)on 11-20-2021 Urea nitrogen [Mass/Vol] 16 mg/dL 7-18 [facility] Work Phone: Thin prep Papanicolaou smear with manual screeningon 11-20-2021 Thin prep Papanicolaou smear with manual screening 6 5-15 [facility] Work Phone: Basophil percentageon 2021 Basophil percentage 25-50 SEEN /hpf 0-5 [facility] Work Phone: Bilirubin Test strip Ql (U)o n 11-16-2021 Bilirubin Ql (U) Negative Negative [facility] Work Phone: Ketones Test strip Ql (U)on 11-16-2021 Ketones Ql (U) Negative Negative [facility] Work Phone: Mucus LM Ql (Urine sed)on Mucus Ql (Urine sed) 0 SEEN /hpf [facility] Work Phone: Nitrite Test strip Ql (U)on 11-16-2021 Nitrite Ql (U) Positive Negative [facility] Work Phone: [phone] Protein Test strip Ql (U)on 11-16-2021 Protein Ql (U) 30 mg/dl Negative [facility] Work Phone: Squamous epithelial cells de tection in urine sediment by light microscopyon 11-16-2021 Epithelial cells.squamous LM Ql (Urine sed) 0-5 SEEN /hpf 0-5 [facility] Work Phone: [phone] Urine blood detectionon 10-23 RBC Ql (U) 25 /ul Negative [facility] Work Phone: [phone] RBC Ql (U) 0-5 SEEN /hpf 0-5 [facility] Work Phone: Urine clarityon 11-16-2021 Clarity (U) Sl. Cloudy Clear [facility] Work Phone: [phone] Urine color determinationon 11-16-2021 Color (U) Yellow Yellow [facility] Work Phone: [phone] Urine glucose detectionon Glucose Ql (U) Normal mg/dl Normal [facility] Work Phone: [phone] Urine leukocyte esterase det ection by dipstickon 11-16-2021 Leukocyte esterase Test strip Ql (U) 500 /ul Negative [facility] Work Phone: [phone] Urine pHon 11-16-2021 pH (U) 6.5 [pH] 5.0 - 8.0 [facility] Work Phone: [phone] Urine sediment bacteria coun t by microscopy (number/high power field)on 11-16-2021 Bacteria LM.HPF (Urine sed) [#/Area] 2 /[HPF] None Seen [facility] Work Phone: [phone] Urine specific gravity measu rementon 11-16-2021 Specific gravity (U) [Rel density] 1.020 1.002-1.03 0 [facility] Work Phone: Urobilinogen Auto test strip Ql (U)on 11-16-2021 Urobilinogen Ql (U) Normal mg/dl Normal [facility] Work Phone: Absolute lymphocyte counton 11-14-2021 Lymphocytes Auto (Unsp spec) [#/Vol] 0.84 10*3/uL 0.83-4.51 [facility] Work Phone: Basophil percentageon 2021 Basophils/100 WBC (Bld) 0.3 % 0-1 [facility] Work Phone: Bilirubin [Mass/Vol] 1.10 mg/dL 0.20-1.00 [facility] Work Phone: Comment on above: For patients on eltr ombopag therapy, use of Dimension Frederica TBIL is not recommended. Chloride [Moles/Vol] 106 mmol/L 98-107 [facility] Work Phone: Eosinophils/100 WBC (Bld) 3.8 % 0-5 [facility] Work Phone: Glucose [Mass/Vol] 92 mg/dL 74-106 [facility] Work Phone: Lactate [Moles/Vol] 0.8 mmol/L 0.4-2.0 [facility] Work Phone: Neutrophils (Bld) [#/Vol] 6.6 10*3/uL 2.0-7.7 [facility] Work Phone: Neutrophils/100 WBC (Bld) 77.5 % 47-70 [facility] Work Phone: Potassium [Moles/Vol] 3.8 mmol/L 3.5-5.1 [facility] Work Phone: Protein [Mass/Vol] 6.9 g/dL 6.4-8.2 [facility] Work Phone: Sodium [Moles/Vol] 142 mmol/L 136-145 [facility] Work Phone: WBC (Bld) [#/Vol] 8.6 10*3/uL 4.4-11.0 [facility] Work Phone: [phone] Blood erythrocytes count (nu mber/volume)on 11-14-2021 RBC (Bld) [#/Vol] 4.72 10*6/uL 4.6-6.2 [facility] Work Phone: [phone] Blood hemoglobin measurement (mass/volume)on 11-14-2021 Hemoglobin (Bld) [Mass/Vol] 14.8 g/dL 13.0-16.5 [facility] Work Phone: Blood lymphocytes/100 leukoc yteson 11-14-2021 Lymphocytes/100 WBC (Bld) 9.8 % 19-41 [facility] Work Phone: Blood monocytes/100 leukocyt eson 11-14-2021 Monocytes/100 WBC (Bld) 8.4 % 0-10 [facility] Work Phone: Blood platelet mean volumeon 11-14-2021 Platelet mean volume (Bld) [Entitic vol] 10.7 fL 6.2-12.0 [facility] Work Phone: [phone] Determination of erythrocyte mean corpuscular volume (MCV)on 11-14-2021 MCV (RBC) [Entitic vol] 93.6 fL 80-94 [facility] Work Phone: [phone] Hematocrit Auto (Bld) [Volum e fraction]on 11-14-2021 Hematocrit (Bld) [Volume fraction] 44.2 % 40-54 [facility] Work Phone: [phone] Laboratory - Chemistry and C hemistry - challengeon 11-14-2021 ALP [Catalytic activity/Vol] 89 U/L 45-117 [facility] Work Phone: ALT [Catalytic activity/Vol] 25 U/L 16-61 [facility] Work Phone: [phone] CO2 [Moles/Vol] 30.0 mmol/L 21.0-32.0 [facility] Work Phone: Globulin (S) [Mass/Vol] 3.6 g/dL 2.2-4.2 [facility] Work Phone: Urea nitrogen/Creatinine [Mass ratio] 9.6 mg/mg 10-20 [facility] Work Phone: Laboratory - Hematology and Cell countson 11-14-2021 Erythrocyte distribution width (RBC) [Entitic vol] 45.1 fL 35.1-43.9 [facility] Work Phone: Erythrocyte distribution width (RBC) [Ratio] 13.1 % 11.6-14.6 [facility] Work Phone: Immature granulocytes/100 WBC (Bld) 0.200 % 0.0-0.9 [facility] Work Phone: Comment on above: IG% - Immature Granu locytes (promyelocytes, myelocytes and metamyelocytes) > 1% indicates that a LEFT SHIFT is Present. MCH (RBC) [Entitic mass] 31.4 pg 27.0-32.0 [facility] Work Phone: Nucleated RBC/100 WBC (Bld) [Ratio] 0 % 0-5 [facility] Work Phone: MCHC Auto (RBC) [Mass/Vol]on 11-14-2021 MCHC (RBC) [Mass/Vol] 33.5 g/dL 32-36 [facility] Work Phone: No Panel Informationon 11-14 Estimated Creatinine Clearance Calc 95.95 ml/min [facility] Work Phone: Estimated GFR (MDRD) Amer 105 mL/min >60 [facility] Work Phone: Comment on above: GFR Calc Estimated GFR (MDRD) Non-Af Amer 87 mL/min >60 [facility] Work Phone: Comment on above: Non- GFR Calc Platelets bldon 11-14-2021 Platelets (Bld) [#/Vol] 156 10*3/uL 150-450 [facility] Work Phone: Serum or plasma albumin wilma urement (mass/volume)on 11-14-2021 Albumin [Mass/Vol] 3.3 g/dL 3.2-5.0 [facility] Work Phone: Serum or plasma albumin/glob ulin mass ratioon 11-14-2021 Albumin/Globulin [Mass ratio] 0.9 {ratio} 0.9-2.4 [facility] Work Phone: Serum or plasma calcium wilma urement (mass/volume)on 11-14-2021 Calcium [Mass/Vol] 8.7 mg/dL 8.5-10.1 [facility] Work Phone: Serum or plasma creatinine m easurement (mass/volume)on 11-14-2021 Creatinine [Mass/Vol] 0.94 mg/dL 0.70-1.30 [facility] Work Phone: Comment on above: The validity of the calculated GFR & GFRAA in patients over 70 years has not been determined. Clinical correlation is essential. Serum or plasma urea nitroge n measurement (mass/volume)on 11-14-2021 Urea nitrogen [Mass/Vol] 9 mg/dL 7-18 [facility] Work Phone: Thin prep Papanicolaou smear with manual screeningon 11-14-2021 Thin prep Papanicolaou smear with manual screening 21 U/L 15-37 [facility] Work Phone: Thin prep Papanicolaou smear with manual screening 6 5-15 [facility] Work Phone: [phone] Absolute lymphocyte counton 11-13-2021 Lymphocytes Auto (Unsp spec) [#/Vol] 0.81 10*3/uL 0.83-4.51 [facility] Work Phone: Basophil percentageon 2021 Basophil percentage 2.7 mg/dL 2.5-4.9 [facility] Work Phone: [phone] Basophils/100 WBC (Bld) 0.5 % 0-1 [facility] Work Phone: Chloride [Moles/Vol] 109 mmol/L 98-107 [facility] Work Phone: Eosinophils/100 WBC (Bld) 1.9 % 0-5 [facility] Work Phone: Glucose [Mass/Vol] 117 mg/dL 74-106 [facility] Work Phone: Comment on above: Fasting Glucose resu lt from 100 to 125 mg/dL suggests IMPAIRED HOMEOSTASIS per A.D.A. criteria. Neutrophils (Bld) [#/Vol] 6.8 10*3/uL 2.0-7.7 [facility] Work Phone: Neutrophils/100 WBC (Bld) 80.1 % 47-70 [facility] Work Phone: Potassium [Moles/Vol] 4.2 mmol/L 3.5-5.1 [facility] Work Phone: Sodium [Moles/Vol] 143 mmol/L 136-145 [facility] Work Phone: WBC (Bld) [#/Vol] 8.5 10*3/uL 4.4-11.0 [facility] Work Phone: Blood erythrocytes count (nu mber/volume)on 11-13-2021 RBC (Bld) [#/Vol] 4.49 10*6/uL 4.6-6.2 [facility] Work Phone: Blood hemoglobin measurement (mass/volume)on 11-13-2021 Hemoglobin (Bld) [Mass/Vol] 13.9 g/dL 13.0-16.5 [facility] Work Phone: Blood lymphocytes/100 leukoc yteson 11-13-2021 Lymphocytes/100 WBC (Bld) 9.6 % 19-41 [facility] Work Phone: Blood monocytes/100 leukocyt eson 11-13-2021 Monocytes/100 WBC (Bld) 7.7 % 0-10 [facility] Work Phone: Blood platelet mean volumeon 11-13-2021 Platelet mean volume (Bld) [Entitic vol] 10.4 fL 6.2-12.0 [facility] Work Phone: Determination of erythrocyte mean corpuscular volume (MCV)on 11-13-2021 MCV (RBC) [Entitic vol] 93.3 fL 80-94 [facility] Work Phone: [phone] Hematocrit Auto (Bld) [Volum e fraction]on 11-13-2021 Hematocrit (Bld) [Volume fraction] 41.9 % 40-54 [facility] Work Phone: [phone] Laboratory - Chemistry and C hemistry - challengeon 11-13-2021 CO2 [Moles/Vol] 29.0 mmol/L 21.0-32.0 [facility] Work Phone: [phone] Magnesium [Mass/Vol] 2.0 mg/dL 1.6-2.6 [facility] Work Phone: [phone] Urea nitrogen/Creatinine [Mass ratio] 13.7 mg/mg 10-20 [facility] Work Phone: [phone] Laboratory - Hematology and Cell countson 11-13-2021 Erythrocyte distribution width (RBC) [Entitic vol] 45.8 fL 35.1-43.9 [facility] Work Phone: [phone] Erythrocyte distribution width (RBC) [Ratio] 13.4 % 11.6-14.6 [facility] Work Phone: [phone] Immature granulocytes/100 WBC (Bld) 0.200 % 0.0-0.9 [facility] Work Phone: [phone] Comment on above: IG% - Immature Granu locytes (promyelocytes, myelocytes and metamyelocytes) > 1% indicates that a LEFT SHIFT is Present. MCH (RBC) [Entitic mass] 31.0 pg 27.0-32.0 [facility] Work Phone: [phone] Nucleated RBC/100 WBC (Bld) [Ratio] 0 % 0-5 [facility] Work Phone: [phone] MCHC Auto (RBC) [Mass/Vol]on 11-13-2021 MCHC (RBC) [Mass/Vol] 33.2 g/dL 32-36 [facility] Work Phone: No Panel Informationon 11-13 Estimated Creatinine Clearance Calc 94.94 ml/min [facility] Work Phone: Estimated GFR (MDRD) Amer 103 mL/min >60 [facility] Work Phone: Comment on above: GFR Calc Estimated GFR (MDRD) Non-Af Amer 85 mL/min >60 [facility] Work Phone: Comment on above: Non- GFR Calc Platelets bldon 11-13-2021 Platelets (Bld) [#/Vol] 147 10*3/uL 150-450 [facility] Work Phone: Serum or plasma calcium wilma urement (mass/volume)on 11-13-2021 Calcium [Mass/Vol] 8.3 mg/dL 8.5-10.1 [facility] Work Phone: Serum or plasma creatinine m easurement (mass/volume)on 11-13-2021 Creatinine [Mass/Vol] 0.95 mg/dL 0.70-1.30 [facility] Work Phone: Comment on above: The validity of the calculated GFR & GFRAA in patients over 70 years has not been determined. Clinical correlation is essential. Serum or plasma urea nitroge n measurement (mass/volume)on 11-13-2021 Urea nitrogen [Mass/Vol] 13 mg/dL 7-18 [facility] Work Phone: Thin prep Papanicolaou smear with manual screeningon 11-13-2021 Thin prep Papanicolaou smear with manual screening 5 5-15 [facility] Work Phone: Basophil percentageon 2021 Bilirubin [Mass/Vol] 1.00 mg/dL 0.20-1.00 [facility] Work Phone: Comment on above: For patients on eltr ombopag therapy, use of Dimension Frederica TBIL is not recommended. Protein [Mass/Vol] 6.1 g/dL 6.4-8.2 [facility] Work Phone: Laboratory - Chemistry and C hemistry - challengeon 11-11-2021 ALP [Catalytic activity/Vol] 69 U/L 45-117 [facility] Work Phone: ALT [Catalytic activity/Vol] 12 U/L 16-61 [facility] Work Phone: Globulin (S) [Mass/Vol] 3.1 g/dL 2.2-4.2 [facility] Work Phone: No Panel Informationon 11-11 Thyroid Stimulating Hormone (TSH) 2.07 uIU/mL 0.358-3.74 [facility] Work Phone: Troponin I High Sensitivity 7 pg/mL 3.0-78.0 [facility] Work Phone: Comment on above: Please Note: New Marry t Units and Gender Specific Reference Ranges. For more information see Policy Stat Procedure Frederica High Sensitivity Troponin (TNIH) and attachments. Serum or plasma albumin wilma urement (mass/volume)on 11-11-2021 Albumin [Mass/Vol] 3.0 g/dL 3.2-5.0 [facility] Work Phone: Serum or plasma albumin/glob ulin mass ratioon 11-11-2021 Albumin/Globulin [Mass ratio] 1.0 {ratio} 0.9-2.4 [facility] Work Phone: Thin prep Papanicolaou smear with manual screeningon 11-11-2021 Thin prep Papanicolaou smear with manual screening 11 U/L 15-37 [facility] Work Phone: [phone] Absolute lymphocyte counton 11-10-2021 Lymphocytes Auto (Unsp spec) [#/Vol] 1.49 10*3/uL 0.83-4.51 [facility] Work Phone: [phone] Basophil percentageon 2021 Basophils/100 WBC (Bld) 1.3 % 0-1 [facility] Work Phone: Bilirubin [Mass/Vol] 1.10 mg/dL 0.20-1.00 [facility] Work Phone: Comment on above: For patients on eltr ombopag therapy, use of Dimension Frederica TBIL is not recommended. Chloride [Moles/Vol] 107 mmol/L 98-107 [facility] Work Phone: Eosinophils/100 WBC (Bld) 2.3 % 0-5 [facility] Work Phone: Glucose [Mass/Vol] 87 mg/dL 74-106 [facility] Work Phone: Neutrophils (Bld) [#/Vol] 3.9 10*3/uL 2.0-7.7 [facility] Work Phone: Neutrophils/100 WBC (Bld) 63.3 % 47-70 [facility] Work Phone: Potassium [Moles/Vol] 4.0 mmol/L 3.5-5.1 [facility] Work Phone: Protein [Mass/Vol] 7.3 g/dL 6.4-8.2 [facility] Work Phone: Sodium [Moles/Vol] 142 mmol/L 136-145 [facility] Work Phone: WBC (Bld) [#/Vol] 6.1 10*3/uL 4.4-11.0 [facility] Work Phone: Blood erythrocytes count (nu mber/volume)on 11-10-2021 RBC (Bld) [#/Vol] 4.89 10*6/uL 4.6-6.2 [facility] Work Phone: Blood hemoglobin measurement (mass/volume)on 11-10-2021 Hemoglobin (Bld) [Mass/Vol] 14.8 g/dL 13.0-16.5 [facility] Work Phone: Blood lymphocytes/100 leukoc yteson 11-10-2021 Lymphocytes/100 WBC (Bld) 24.3 % 19-41 [facility] Work Phone: Blood monocytes/100 leukocyt eson 11-10-2021 Monocytes/100 WBC (Bld) 8.5 % 0-10 [facility] Work Phone: Blood platelet mean volumeon 11-10-2021 Platelet mean volume (Bld) [Entitic vol] 10.1 fL 6.2-12.0 [facility] Work Phone: Determination of erythrocyte mean corpuscular volume (MCV)on 11-10-2021 MCV (RBC) [Entitic vol] 92.2 fL 80-94 [facility] Work Phone: Hematocrit Auto (Bld) [Volum e fraction]on 11-10-2021 Hematocrit (Bld) [Volume fraction] 45.1 % 40-54 [facility] Work Phone: Laboratory - Chemistry and C hemistry - challengeon 11-10-2021 ALP [Catalytic activity/Vol] 80 U/L 45-117 [facility] Work Phone: ALT [Catalytic activity/Vol] 17 U/L 16-61 [facility] Work Phone: CO2 [Moles/Vol] 30.0 mmol/L 21.0-32.0 [facility] Work Phone: Globulin (S) [Mass/Vol] 3.5 g/dL 2.2-4.2 [facility] Work Phone: Urea nitrogen/Creatinine [Mass ratio] 16.7 mg/mg 10-20 [facility] Work Phone: Laboratory - Hematology and Cell countson 11-10-2021 Erythrocyte distribution width (RBC) [Entitic vol] 46.2 fL 35.1-43.9 [facility] Work Phone: Erythrocyte distribution width (RBC) [Ratio] 13.3 % 11.6-14.6 [facility] Work Phone: Immature granulocytes/100 WBC (Bld) 0.300 % 0.0-0.9 [facility] Work Phone: Comment on above: IG% - Immature Granu locytes (promyelocytes, myelocytes and metamyelocytes) > 1% indicates that a LEFT SHIFT is Present. MCH (RBC) [Entitic mass] 30.3 pg 27.0-32.0 [facility] Work Phone: Nucleated RBC/100 WBC (Bld) [Ratio] 0 % 0-5 [facility] Work Phone: MCHC Auto (RBC) [Mass/Vol]on 11-10-2021 MCHC (RBC) [Mass/Vol] 32.8 g/dL 32-36 [facility] Work Phone: No Panel Informationon 11-10 Estimated Creatinine Clearance Calc 83.51 ml/min [facility] Work Phone: Estimated GFR (MDRD) Amer 89 mL/min >60 [facility] Work Phone: Comment on above: GFR Calc Estimated GFR (MDRD) Non-Af Amer 74 mL/min >60 [facility] Work Phone: Comment on above: Non- GFR Calc Troponin I High Sensitivity 8 pg/mL 3.0-78.0 [facility] Work Phone: Comment on above: Please Note: New Marry t Units and Gender Specific Reference Ranges. For more information see Policy Stat Procedure Frederica High Sensitivity Troponin (TNIH) and attachments. Platelets bldon 11-10-2021 Platelets (Bld) [#/Vol] 192 10*3/uL 150-450 [facility] Work Phone: Serum or plasma albumin wilma urement (mass/volume)on 11-10-2021 Albumin [Mass/Vol] 3.8 g/dL 3.2-5.0 [facility] Work Phone: Serum or plasma albumin/glob ulin mass ratioon 11-10-2021 Albumin/Globulin [Mass ratio] 1.1 {ratio} 0.9-2.4 [facility] Work Phone: Serum or plasma calcium wilma urement (mass/volume)on 11-10-2021 Calcium [Mass/Vol] 9.1 mg/dL 8.5-10.1 [facility] Work Phone: Serum or plasma creatinine m easurement (mass/volume)on 11-10-2021 Creatinine [Mass/Vol] 1.08 mg/dL 0.70-1.30 [facility] Work Phone: Comment on above: The validity of the calculated GFR & GFRAA in patients over 70 years has not been determined. Clinical correlation is essential. Serum or plasma urea nitroge n measurement (mass/volume)on 11-10-2021 Urea nitrogen [Mass/Vol] 18 mg/dL 7-18 [facility] Work Phone: Thin prep Papanicolaou smear with manual screeningon 11-10-2021 Thin prep Papanicolaou smear with manual screening 16 U/L 15-37 [facility] Work Phone: Thin prep Papanicolaou smear with manual screening 5 5-15 [facility] Work Phone: Basophil percentageon 2021 Chloride [Moles/Vol] 107 mmol/L 98-107 [facility] Work Phone: Glucose [Mass/Vol] 88 mg/dL 74-106 [facility] Work Phone: Potassium [Moles/Vol] 4.1 mmol/L 3.5-5.1 [facility] Work Phone: Sodium [Moles/Vol] 142 mmol/L 136-145 [facility] Work Phone: WBC (Bld) [#/Vol] 6.9 10*3/uL 4.4-11.0 [facility] Work Phone: Blood erythrocytes count (nu mber/volume)on 09-16-2021 RBC (Bld) [#/Vol] 4.89 10*6/uL 4.6-6.2 [facility] Work Phone: Blood hemoglobin measurement (mass/volume)on 09-16-2021 Hemoglobin (Bld) [Mass/Vol] 15.0 g/dL 13.0-16.5 [facility] Work Phone: Blood platelet mean volumeon 09-16-2021 Platelet mean volume (Bld) [Entitic vol] 11.4 fL 6.2-12.0 [facility] Work Phone: Determination of erythrocyte mean corpuscular volume (MCV)on 09-16-2021 MCV (RBC) [Entitic vol] 94.9 fL 80-94 [facility] Work Phone: Hematocrit Auto (Bld) [Volum e fraction]on 09-16-2021 Hematocrit (Bld) [Volume fraction] 46.4 % 40-54 [facility] Work Phone: Laboratory - Chemistry and C hemistry - challengeon 09-16-2021 CO2 [Moles/Vol] 30.0 mmol/L 21.0-32.0 [facility] Work Phone: Urea nitrogen/Creatinine [Mass ratio] 15.1 mg/mg 10-20 [facility] Work Phone: Laboratory - Hematology and Cell countson 09-16-2021 Erythrocyte distribution width (RBC) [Entitic vol] 46.7 fL 35.1-43.9 [facility] Work Phone: Erythrocyte distribution width (RBC) [Ratio] 13.3 % 11.6-14.6 [facility] Work Phone: MCH (RBC) [Entitic mass] 30.7 pg 27.0-32.0 [facility] Work Phone: MCHC Auto (RBC) [Mass/Vol]on 09-16-2021 MCHC (RBC) [Mass/Vol] 32.3 g/dL 32-36 [facility] Work Phone: No Panel Informationon 09-16 Estimated GFR (MDRD) Amer 91 mL/min >60 [facility] Work Phone: Comment on above: GFR Calc Estimated GFR (MDRD) Non-Af Amer 76 mL/min >60 [facility] Work Phone: Comment on above: Non- GFR Calc Platelets bldon 09-16-2021 Platelets (Bld) [#/Vol] 193 10*3/uL 150-450 [facility] Work Phone: Serum or plasma calcium wilma urement (mass/volume)on 09-16-2021 Calcium [Mass/Vol] 8.8 mg/dL 8.5-10.1 [facility] Work Phone: Serum or plasma creatinine m easurement (mass/volume)on 09-16-2021 Creatinine [Mass/Vol] 1.06 mg/dL 0.70-1.30 [facility] Work Phone: Comment on above: The validity of the calculated GFR & GFRAA in patients over 70 years has not been determined. Clinical correlation is essential. Serum or plasma urea nitroge n measurement (mass/volume)on 09-16-2021 Urea nitrogen [Mass/Vol] 16 mg/dL 7-18 [facility] Work Phone: Thin prep Papanicolaou smear with manual screeningon 09-16-2021 Thin prep Papanicolaou smear with manual screening 5 5-15 [facility] Work Phone: Basophil percentageon 2021 Chloride [Moles/Vol] 106 mmol/L 98-107 [facility] Work Phone: Cholesterol [Mass/Vol] 189 mg/dL <200 [facility] Work Phone: Comment on above: <200 mg/dL Desirable 200-240 mg/dL Borderline >240 mg/dL High Risk Glucose [Mass/Vol] 86 mg/dL 74-106 [facility] Work Phone: Potassium [Moles/Vol] 3.9 mmol/L 3.5-5.1 [facility] Work Phone: Sodium [Moles/Vol] 140 mmol/L 136-145 [facility] Work Phone: Triglyceride [Mass/Vol] 70 mg/dL <199 [facility] Work Phone: Comment on above: The drugs N-Acetylcy steine and Metamizole may falsely depress this assay.Serum Triglycerides Reference Interval Normal <150 mg/dL Borderline high 150 - 199 mg/dL High 200 - 499 mg/dL Very High > or = 500 mg/dL Laboratory - Chemistry and C hemistry - challengeon 07-31-2021 CO2 [Moles/Vol] 31.0 mmol/L 21.0-32.0 [facility] Work Phone: Urea nitrogen/Creatinine [Mass ratio] 16.5 mg/mg 10- [facility] Work Phone: No Panel Informationon 07-31 Estimated GFR (MDRD) Amer 95 mL/min >60 [facility] Work Phone: Comment on above: GFR Calc Estimated GFR (MDRD) Non-Af Amer 78 mL/min >60 [facility] Work Phone: Comment on above: Non- GFR Calc Prostate Specific Antigen Screen 0.76 ng/mL 0.00-4.00 [facility] Work Phone: Comment on above: This test was perfor med using the TPSA assay method [facility]. Values obtained with differentassay methods cannot be used interchangably.When changing PSA assays in the course of monitoring apatient, additional sequential testing should be carriedout to confirm baseline values. Serum or plasma calcium wilma urement (mass/volume)on 07-31-2021 Calcium [Mass/Vol] 9.2 mg/dL 8.5-10.1 [facility] Work Phone: Serum or plasma cholesterol in HDL measurement (mass/volume)on 07-31-2021 Cholesterol in HDL [Mass/Vol] 56 mg/dL >40 [facility] Work Phone: Comment on above: The drugs N-Acetylcy steine and Metamizole may falsely depress this assay. Reference Range HDL <40 mg/dL Low HDL Cholesterol HDL >or= 60 mg/dL High HDL Cholesterol Serum or plasma cholesterol in VLDL measurement (mass/volume)on 07-31-2021 Cholesterol in VLDL [Mass/Vol] 14 mg/dL 5-40 [facility] Work Phone: Serum or plasma creatinine m easurement (mass/volume)on 07-31-2021 Creatinine [Mass/Vol] 1.03 mg/dL 0.70-1.30 [facility] Work Phone: Comment on above: The validity of the calculated GFR & GFRAA in patients over 70 years has not been determined. Clinical correlation is essential. Serum or plasma low density lipoprotein (LDL) cholesterol measurement (mass/volume)on 07-31-2021 Cholesterol in LDL [Mass/Vol] 119 mg/dL 0-130 [facility] Work Phone: Serum or plasma urea nitroge n measurement (mass/volume)on 07-31-2021 Urea nitrogen [Mass/Vol] 17 mg/dL 7-18 [facility] Work Phone: Thin prep Papanicolaou smear with manual screeningon 07-31-2021 Thin prep Papanicolaou smear with manual screening 3 5-15 [facility] Work Phone: Provider Note - ED v2on 04-22 Provider Note - ED v2 Provider Note - ED v2: Chart Review: HISTORY OF PRESENTING ILLNESS HUNG is a 59 year old Male and was seen by me at 12-May-2020 17:44. The historian is the patient. Triage Information: Most recent Vital Sign Value Date PAST MEDICAL HISTORY ATTESTATION: I have reviewed and confirmed nurse's/medic's notes for patient's medications, allergies, and medical, surgical, family and social history ALLERGIES/INTOLERANCES: Allergy Allergen: vancomycin Type: Drug Reaction: Unknown Allergen: ceftriaxone Type: Drug Reaction: Unknown Allergen: linezolid Type: Drug Reaction: Unknown HEALTH HISTORY: No documented data. OUTPATIENT MEDICATIONS: Home Medications Review Status for Reconciliation: Complete Med Status: Patient Currently Takes Medications Drug Name: propranolol 10 mg oral tablet Instructions: 1 tab(s) orally 2 times a day Drug Name: Xarelto 2.5 mg oral tablet Instructions: 1 tab(s) orally 2 times a day SIGNIFICANT EVENTS: No documented data. RESULTS/VITAL SIGNS VITAL SIGNS: T PRBP SpO2O2(LPM) %FiO2 Method 12-May-2020 17:09:[id number] 96 MEDICAL DECISION MAKING/ED COURSE MDM/ED COURSE: This note was generated with voice recognition software and may contain errors including spelling, grammar, syntax, and misrecognization of what was dictated Chief Complaint Nail puncture to L foot; requesting Tetanus vaccine History of Present Illness Patient presented today d/t injury to L foot after stepping on a dirty nail yesterday while working outside at his house. is unsure how far into his foot the nail went as soon as I felt it, I picked my foot back off of it; broke the skin just enough to bleed a little. Was wearing tennis shoes at the time of the injury. pain is minimal today, pain scale 2/10 and noted only when ambulating. In general, feels he is able to walk on foot without much difficulty. Denies any swelling, redness, or drainage from the area; does not feel there is any debris left inside the puncture site. daughter helped him to clean the area well last night. No fever or other symptoms. mainly came in for a tetanus vaccine today is unsure when his last one was. During exam, cuauhtemoc has a history of A. Fib and poor circulation in LEs x 20+ years. At one point, had cellulitis of his leg and had to see a specialist, so still has a lot of residual discoloration on his leg. Denies any history of diabetes and denies any history of numbness/tingling in the feet. Denies any history of kidney dysfunction. Review of Systems 10 systems reviewed negative with exception of history of present illness listed above Physical Examination General: Pleasant male, in no acute distress. Neck: Supple, Non-tender, No lymphadenopathy. Respiratory: Respirations are non-labored, Symmetrical chest wall expansion, Lungs are clear to auscultation, Breath sounds are equal Cardiovascular: Irregularly irregular rate and rhythm; no m/c/r Gastrointestinal: Soft, non-tender, non-distended Musculoskeletal: Normal range of motion, normal strength, no tenderness, no swelling. Integumentary: Mackay, warm, dry. Large area of purplish/red discoloration noted to medial L ankle/lower leg no tenderness or swelling pt states is chronic discoloration. Plantar surface of L foot (inspected post-cleaning): pinpoint scab noted to plantolateral aspect of mid-foot. No surrounding erythema, induration, or drainage, but area including puncture site (site not centralized) and extending to lateral side of foot noted to have prominent thickened, slightly yellowed, dry callous formation (pt states unchanged x years). Area of scab/puncture injury very mildly tender to palpation, but without foreign body sensation, per pt. Has FROM ankle/toes without pain or limitation; sensation intact to light touch, cap refill <3 seconds, DP/PT pulses normal. Ambulates normally, without evidence of discomfort. Neurologic: Alert, Oriented, Normal sensory, Normal motor function. Cognition and Speech: Oriented, Speech clear and coherent. Psychiatric: Cooperative, Appropriate mood & affect. Medical Decision Making Course: Worsening; stable Plan: Wound thoroughly examined in office today no red flags or indication of residual foreign body at this point puncture injury appears to have been fairly superficial. Reviewed risks - discussed XR and encouraged debridement/irrigation to confirm absence of FB, but pt declined at this time; also declined wound dressing for the area. Tetanus vaccine updated in office today. Due to risk factors and reported history of PVD/venous insufficiency, although no signs of infection on exam today, to err on the side of caution, will start prophylactic antibiotic treatment today. Multiple medication allergies consulted with Cris Pitts MD (collaborating physician) - will start Bactrim DS BID x 10 days reviewed possible side effects and encouraged to complete full course of medication, even if symptoms resolving more quickly. Encouraged to keep area clean/dry/covered with dressing/bandage, and to monitor closely. Reviewed red flags and signs of developing infection, as well as the potential for other complications related to puncture wounds urged to f/u with PCP or ER if not continuing to improve over the next 24-48 hours, or if there is continued discomfort 1-2 weeks post-injury. Reminded that even with proper care, foreign material can be embedded deeply in the wound so will need close very close monitoring and follow up. Pt verbalized understanding and agreed with discussion and plan; questions were answered and encouraged. Encouraged to continue close f/u with PCP and cardiology - should let them know he was rx'd antibiotics for this injury so they can be attune for any potential adverse reactions that could occur. Problem: nail puncture injury to L foot; peripheral vascular disease; need for tetanus vaccine Data reviewed/analyzed: Reviewed most recent labwork and consulted with Cris Pitts MD. No imaging or tests outside of physical exam done today Risk: Low risk of morbidity/mortality but starting antibiotic treatment prophylaxis d/t multiple risk factors. Problems addressed: Puncture wound to L plantar foot; peripheral vascular disease; need for tetanus vaccine Education: See above. Data Reviewed: old records, vital signs and nurses notes CLINICAL IMPRESSION Diagnosis/Annotation: ED Dx Name:Puncture wound of foot, left Code:S91.332A Name:Peripheral artery disease Code:I73.9 Disposition: discharged Type: home ATTESTATION CRITICAL CARE TIME Is this a critically ill patient: no Electronic Signatures: Dayami Ramon ([employer]ATOR) (Signed 13-May-2020 08:20) Authored: HPI, PMH, Results/Vital Signs, MDM/ED Course, Clinical Impression, Attestation, Chart Review, Scores Last Updated: 13-May-2020 08:20 by Dayami Ramon ([employer]ATOR) [facility] Prot Electroon 01-28-2018 M-Fabricio Percent Mariola Randell [facility] Comment on above: Performed By: #### 8 [id number] ####MY POC Vpmiplhgpg4383 [place] [address] Protein mass conc contacted [facility] Comment on above: Performed By: #### 8 [id number] ####MY POC Pdytwcaxrz8145 [place] [address] Protein mass conc Only Urine Normal 0-10 [facility] Comment on above: Performed By: #### 8 [id number] ####MY POC Ebvacnuxof5638 [place] [address] U Albumin immunofixation [facility] Comment on above: Performed By: #### 8 [id number] ####MY POC Vytnznmdif8903 [place] [address] U Alpha 1 Glob performed [facility] Comment on above: Performed By: #### 8 [id number] ####MY POC Tjjgcswlnr0264 [place] [address] U Alpha 2 Glob requested new [facility] Comment on above: Performed By: #### 8 [id number] ####MY POC Kegsjdfbyt9895 [place] [address] U Beta Glob specimen [facility] Comment on above: Performed By: #### 8 [id number] ####MY POC Pqvolvhvnv3585 [place] [address] U Gamma Glob per [facility] Comment on above: Performed By: #### 8 [id number] ####MY POC [address] [place], [place] [id number] Lab Miscellaneouson 01-05-20 18 Status See Ref Lab Report [facility] Comment on above: Performed By: #### 8 [id number] ####MY POC [address] [place] [address] Immunofixation Serumon 01-02 EMMETT Interp Comment: [facility] Comment on above: Result Comment: Pres ence of monoclonal protein is unclear at this time. Suggestrepeat in 3 to 6 months if clinically indicated.Performed At: [facility] [address] [id number] Vincent PhD Ph:[phone] Performed By: #### 8 [id number] ####MY POC [address] [place], [place] [id number] SPEon 01-02-2018 Albumin mass conc 3.3 g/dL [facility] Comment on above: Result Comment: No p atient age and/or gender provided Age Male Female 0 - 30 days Not Estab. Not Estab. >30 days 2.9 - 4.4 2.9 - 4.4 Performed By: #### 8 [id number] ####MY POC [address] [place] [address] Albumin/Globulin mass ratio 0.6 {ratio} [facility] Comment on above: Result Comment: No p atient age and/or gender provided Age Male Female 0 - 30 days Not Estab. Not Estab. >30 days 0.7 - 1.7 0.7 - 1.7 Performed By: #### 8 [id number] ####MY POC [address] [place], [place] [address] Alpha 1 Glob 0.3 gm/dL [facility] Comment on above: Result Comment: No p atient age and/or gender provided Age Male Female 0 - 30 days Not Estab. Not Estab. >30 days 0.0 - 0.4 0.0 - 0.4 Performed By: #### 8 [id number] ####MY POC Z[address]npmiwo9443 [place] [address] Alpha 2 Glob 0.5 gm/dL Normal [facility] Comment on above: Result Comment: No p atient age and/or gender provided Age Male Female 0 - 30 days Not Estab. Not Estab. >30 days 0.4 - 1.0 0.4 - 1.0 Performed By: #### 8 [id number] ####MY POC [address] [place] [address] Beta Glob 2.2 gm/dL [facility] Comment on above: Result Comment: No p atient age and/or gender provided Age Male Female 0 - 30 days Not Estab. Not Estab. 1 - 6 months 0.5 - 1.3 0.5 - 1.3 >6 months 0.7 - 1.3 0.7 - 1.3 Performed By: #### 8 [id number] ####MY POC [address] [place] [address] Gamma Glob 2.5 gm/dL [facility] Comment on above: Result Comment: No p atient age and/or gender provided Age Male Female 0 - 30 days Not Estab. Not Estab. 1 - 6 months 0.3 - 1.6 0.3 - 1.6 7 months - 5 years 0.4 - 1.3 0.4 - 1.3 6 - 17 years 0.6 - 1.5 0.6 - 1.5 >17 years 0.4 - 1.8 0.4 - 1.8 Performed By: #### 8 [id number] ####MY POC [address] [place] [id number] Globulin Calculated mass conc (S) 5.4 g/dL [facility] Comment on above: Result Comment: No p atient age and/or gender provided Age Male Female 0 - 30 days Not Estab. Not Estab. >30 days 2.2 - 3.9 2.2 - 3.9 Performed By: #### 8 [id number] ####MY POC Exfcodrxpf9616 [place] [address] M-Fabricio Comment: Normal Not Observed [facility] Comment on above: Result Comment: SPE shows asymmetrical gamma. Performed By: #### 8 [id number] ####MY POC [address]unh[address]497 [place] [address] Protein mass conc Comment: Normal [facility] Comment on above: Result Comment: Refe r to serum EMMETT for further evaluation.Performed At: [facility] [address] [place], [place] [id number] Vincent PhD Ph:[phone] Performed By: #### 8 [id number] ####MY POC L[address]qsod3655 [place] [address] Immunofixation Serumon 12-31 IgA Quant 1317 mg/dL Normal [facility] Comment on above: Result Comment: No p atient age and/or gender provided Male 0 - 10 days 2 - 362 11 days - 6 months 8 - 37 7 - 11 months 12 - 58 1 - 3 years 21 - 111 4 - 15 years 52 - 221 16 - 60 years 90 - 386 >60 years 61 - 437 Female 0 - 10 days 2 - 362 11 days - 6 months 8 - 32 7 - 11 months 11 - 45 1 - 3 years 19 - 102 4 - 15 years 51 - 220 16 - 70 years 87 - 352 >70 years 64 - 422Results confirmed ondilution. Performed By: #### 8 [id number] ####MY POC [address]clz8766 [place] [address] IgG Quant 2750 mg/dL High 700-1600 [facility] Comment on above: Performed By: #### 8 [id number] ####MY POC [address]re3837 [place] [address] IgM Quant 159 mg/dL Normal [facility] Comment on above: Result Comment: No p atient age and/or gender provided Male 0 - 10 days 3 - 10 11 days - 6 months 18 - 91 7 - 11 months 27 - 112 1 - 3 years 39 - 146 4 - 6 years 40 - 152 7 - 9 years 37 - 151 10 - 11 years 36 - 153 12 - 13 years 36 - 156 14 - 15 years 35 - 163 16 - 19 years 35 - 168 20 - 70 years 20 - 172 >70 years 15 - 143 Female 0 - 10 days 1 - 19 11 days - 6 months 18 - 96 7 - 11 months 32 - 127 1 - 3 years 45 - 163 4 - 6 years 51 - 181 7 - 9 years 51 - 187 10 - 11 years 53 - 194 12 - 13 years 57 - 209 14 - 15 years 59 - 220 16 - 19 years 58 - 230 >19 years 26 - 217Performed At: [facility]amawx[facility] [place], [place] [id number] Vincent PhD Ph:[phone] Performed By: #### 8 [id number] ####MY POC Qkrkxgrrcp4953 [place] [address] SPEon 12-31-2017 Protein mass conc 8.7 g/dL High 6.0-8.5 [facility] Comment on above: Performed By: #### 8 [id number] ####MY POC [address]av[address]my4670 [place] [address] Protein mass conc Comment Normal [facility] Comment on above: Result Comment: Prot ein electrophoresis scan will follow via computer,mail, or washtub worker delivery.Performed At: [facility] JerseyCubgiv5185 [place], [place] [id number] Vincent PhD Ph:[phone] Performed By: #### 8 [id number] ####MY POC [address]fsjno[address]702 [place] [address] Lab Miscellaneouson 12-31-19 Test Name ua immunofixati Normal [facility] Comment on above: Performed By: #### 8 [id number] ####MY POC Gxismwblrc1453 [place] [address] Basic Metabolic Panlon 11-17 Anion gap 3 molar conc 12 mmol/L Normal 9-18 Cl [facility] Comment on above: Performed By: #### P T, PTT, LACT, CMP, MG1, PHOS, CBCDIF ####[facility] [address] [place], [place] [phone] Calcium mass conc 8.4 mg/dL Low 8.5-10.2 [facility] Comment on above: Performed By: #### P T, PTT, LACT, CMP, MG1, PHOS, CBCDIF ####[facility] [phone] Chloride molar conc 110 mmol/L High 97-105 [facility] Comment on above: Performed By: #### P T, PTT, LACT, CMP, MG1, PHOS, CBCDIF ####[place] [address] [address] [phone] CO2 molar conc 23 mmol/L Normal 22-30 [facility] Comment on above: Performed By: #### P T, PTT, LACT, CMP, MG1, PHOS, CBCDIF ####[place] [address] [address] [place] [phone] Creatinine mass conc 2.54 mg/dL High 0.73-1.22 [facility] Comment on above: Performed By: #### P T, PTT, LACT, CMP, MG1, PHOS, CBCDIF ####[place] [address] [address] [phone] eGFR- Amer. 32 Normal [facility] Comment on above: Performed By: #### P T, PTT, LACT, CMP, MG1, PHOS, CBCDIF ####[place] [address] [address] [place] [phone] GFR/1.73 sq M predicted among non-blacks MDRD vol rate/area (S/P/Bld) 26 . Normal [facility] Comment on above: Result Comment: eGFR (Estimated GFR) Units of measure: mL/min/1.73 meters squaredeGFR is derived from the reexpressed MDRD Study equation using the following parameters: serum creatinine, age, gender and race. The creatinine assay has been calibrated to be traceable to IDMS.An eGFR <60 mL/min/1.73m2 for >3 months is consistent with chronic kidney disease. Refer to KDOQI guidelines for clinical interpretation.In patients with unstable renal function, e.g. those with acute kidney injury, the eGFR may not accurately reflect actual GFR. Performed By: #### P T, PTT, LACT, CMP, MG1, PHOS, CBCDIF ####[address] [phone] Glucose mass conc 73 mg/dL Low 74-99 [facility] Comment on above: Result Comment: The [place] Diabetes Association (ADA) provides guidance for cutoff values for fasting glucose and random glucose. The ADA defines fasting as no caloric intake for at least 8 hours. Fasting plasma glucose results between 100 to 125 mg/dL indicate increased risk for diabetes (prediabetes).Fasting plasma glucose results greater than or equal to 126 mg/dL meet the criteria for diagnosis of diabetes. In the absence of unequivocal hyperglycemia, results should be confirmed by repeat testing. In a patient with classic symptoms of hyperglycemia or hyperglycemic crisis, random plasma glucose results greater than or equal to 200 mg/dL meet the criteria for diagnosis of diabetes.Reference: Standards of Medical Care in Diabetes 2016, [place] Diabetes Association. Diabetes Care. 2016.39(Suppl 1). Performed By: #### P T, PTT, LACT, CMP, MG1, PHOS, CBCDIF ####[address] [phone] Potassium molar conc 3.2 mmol/L Low 3.7-5.1 [facility] Comment on above: Performed By: #### P T, PTT, LACT, CMP, MG1, PHOS, CBCDIF ####[place] [address] [place], [place] [phone] Sodium molar conc 145 mmol/L High 136-144 [facility] Comment on above: Performed By: #### P T, PTT, LACT, CMP, MG1, PHOS, CBCDIF ####[place] [address] [place], [place] [phone] Urea nitrogen mass conc 53 mg/dL High 9-24 [facility] Comment on above: Performed By: #### P T, PTT, LACT, CMP, MG1, PHOS, CBCDIF ####[facility] [address] [place], [place] [phone] CASE MANAGEMon 11-17-2017 CASE MANAGEM HNO ID: [id number] thor: Brittney Everett (Rn) Dewayne RNService: Care ManagementAuthor Type: Registered NurseType: Care Mgt Progress NoteFiled: 11/17/2017 12:17 PMNote Text:CARE MANAGEMENT DISCHARGE NOTESERVICE DATE: 11/17/2017SERVICE TIME: 12:15 PM LOS: 14 daysAdmission Date: 11/03/2017DISCHARGE ARRANGEMENT (list agency and phone number)Home Care - Nursing, PT and OTProvider: [facility] WGFGGYIPO ASSESSMENT:Caregiver is ready, willing and able to meet the patient's needs asrecommended by the inter-professional team? YesPatient's transition needs and plan for meeting these needs: dc w homecare, OP MD follow upDoes the patient have an acute stroke diagnosis, or has the patient had astroke during this admission? NoHANDOFF COMMUNICATION:Primary Care Physician: Dc Bailey ()TRANSPORTATI ON ARRANGEMENTS:Car w familyADDITIONAL CONTACT RESOURCES: DC orders, F2F faxed. Pt agrees to plan.SIGNATURE: Brittney Buchanan RN PATIENT NAME: Hung AhumadaoneDATE: November 17, 2017 : 12:15 PM PAGER/CONTACT #: [phone] [facility] CNDSon 11-17-2017 CNDS HNO ID: [id number] thor: Marni Layvice: General Internal MedicineAuthor Type: PhysicianType: Discharge SummariesFiled: 11/17/2017 4:43 PMNote Text: DISCHARGE SUMMARYPATIENT NAME: Hung Peck ADMISSION DATE: 11/03/2017MRN: [id number] DISCHARGE DATE: 11/17/2017ATTENDING PHYSICIAN: Marni Roth Code Status: FullHighest Readmission Risk Score: 26 The 30 day readmissions risk score is derived from an internallyvalidated risk model which evaluates patient level characteristics,utilization history, medication orders and lab results up until the day ofdischarge. Patients with a score of 40 or above are considered highestrisk for readmission. 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 OSH labs notable for INR 19.5, WBC 23(23% eos), BUN/Cr 37/2.2, AST/ALT 694/485. He was given Vit K and hiscoumadin was held. CT of the right lower extremity demonstrated again aconcern for abscess and was started on doxycyline and Zosyn. He was notedto be hypotensive, with sbp ~100's, received 3.5L of fluid and started onnorepi. He was admitted to the MICU for treatment of septic shock. Heremained on Doxy and Zosyn and transiently on pressor support fortreatment of treatment of abscess. All of his cultures were negative. Stan developed a desquamating rash concerning for DRESS vs SJS/TEN. He wasalso noted to have worsening eosinophilia, worsening transaminitis, DAYNA,proteinuria. All of his antibiotics were stopped and he was started onIV Methylpred 40mg daily.?He had a CT a/p on 11/03 and there was concernfor R/P bleed. He was found to have a hgb of 5.4 and received 2 units ofPRBC and 2 of FFP for an INR of 7.9. He was [facility] to [facility] MICU forfurther management. On admission, he was HDS, not on pressors. He wasplaced on 50% VM.# RP bleed: Received 7u pRBCs from 11/04-11/07 and 4u FFP. Seen by BROOKE. Gillo hold anticoagulation for 3-4 weeks after the bleed. PCP should restartcoumadin 1-2 weeks after discharge.# DRESS: Pt presented initially to the OSH 10/09 with fever and rash andwas admitted 10/09-10/12. Limited records available but WBC at that time was4 (unknown diff). Pt then presented 10/28 with fever, total rash, peripheraleosinophilia, hepatitis, DAYNA and facial edema typical of DRESS. ExtensiveOSH records obtained and potential med culprits in preceding 2-6 weeksbefore clear DRESS onset include: CTX and Vanc. Pt also received linezolidduring this time though a less likely culprit. Pt received doxy brieflyduring this time as well but also felt less likely culprit. Allergiesupdated to include CTX, Vanc, Linezolid.Pt was seen by derm and put on a slow steroid taper. His absoluteeosinophil count normalized to < 200 with normal WBC count. However,starting 11/12, the abs eos uptrended again and reached a peak of 4.2K on11/16. This was discussed extensively with derm; given normalization ofLFTs and improvement clinically, careful observation was recommended. Ptwill continue pred taper as outlined below. Triamcinolone + hydrocortisonefor topical treatment.Recommend lab monitoring of CBC with diff and CMP at PCP f/u on 11/21 andagain at 2 weeks and 4 weeks after discharge. More frequent lab monitoringif needed pending trend.# DAYNA: felt to be ischemic ATN from shock. Nephrology was consulted. Dueto refractory hyperkalemia and unresponsiveness to lasix, CVVHD startedon 11/06 - 11/07. Pt showed signs of renal recovery and so DIRECTOR CAREER stopped andTDC removed. Cr continued to improve during his stay and at discharge was2.5 on day of discharge.# Hypernatremia: Developed from 11/14-11/16 and given D5W to correct freewater deficit due to post ATN diuresis. We continued to monitor BMPclosely during his stay. Sodium level 145 at discharge. Recommended repeatBMP and follow up with PCP 4 days after discharge, Tuesday. Ptcounseled on important of free water intake PO.# Hepatitis: AST/ALT normalized, Bili improved to 2. [place] 2/2 DRESS.# Hematuria: developed on the RNF, likely from prior traumatic morejon. Seenby urology. Voiding well prior to dischargeTransitions of Care Critical Issues:- LAB MONITORING NEEDED: CBC with diff and CMP at PCP f/u on 11/21 andagain at 2 weeks and 4 weeks after discharge. More frequent lab monitoringif needed pending trend.- Follow-up with: PCP and derm locally within the next week- Please restart coumadin 1-2 weeks after discharge (3-4 weeks after RPbleed) per recs. No need to bridge when restart. Restart date to bedetermined by PCP- MADRIGAL MED CHANGES: Prednisone taper -- 30mg daily through 11/22, then 20mgdaily for the next 10 days (11/23-12/02) , then 10 mg daily for the next 10days (12/03-12/12) , 5mg daily for another week (12/13-12/19) , then 5 mgevery alternate day for another one week (12/20-12/26).- PPI while on steroids, no need for correction PPI therapy Please note new allergies: Ceftriaxone, Vancomycin, LinezolidLABS AND PROCEDURES PENDING AT DISCHARGE: No pending results.CONSULTING TEAMS DURING HOSPITALIZATION: Nephrology, Pulm- Critical care,Hepatology, UrologyPATIENT CONDITION AT DISCHARGE: StableDISCHARGE DISPOSITION: Home with Home Health CareDischarge Physical Exam:VITAL SIGNS: BP 124/79 Pulse 80 Temp 37.3 ?C (99.2 ?F) (Oral) Resp 16 Ht 188 cm (6' 2) Wt 89.2 kg (196 lb 10.4 oz) SpO2 98% BMI 25.25 kg/m?General: No acute distress, [id number]: no facial edemaCV: RRR, no murmursLungs: clear to auscultation bilaterally, no wheezing, rhonchi or ralesAbdomen: Soft, non-tender, non-distendedExtremities: 2+ edema of LLE, 1+ R ankle edemaSkin: diffuse erythroderma with scaling over face and some exfoliationover legsDIET: Resume pre-hospital dietACTIVITY: Resume pre-hospital activityWOUND/SURGICAL SITE CARE: NoneALLERGIESAllergen Reactions- Ceftriaxone Rash Concern for DRESS- Linezolid Rash Concern of DRESS- Vancomycin Rash Concern of DRESSDISCHARGE MEDICATION:Discharge Medication List as of 11/17/2017 11:51 AMCONTINUE these medications which have CHANGED!! predniSONE (DELTASONE) 10 mg tabletTake 3 tablets by mouth once daily for 6 doses.Print RX, Disp-18 tablet, R-0!! predniSONE (DELTASONE) 10 mg tabletTake 1 tablet by mouth once daily for 10 doses.Print RX, Disp-10 tablet, R-0!! predniSONE (DELTASONE) 20 mg tabletTake 1 tablet by mouth once daily for 10 doses.Print RX, Disp-10 tablet, R-0!! predniSONE (DELTASONE) 5 mg tabletTake 1 tablet by mouth once daily for 7 doses.Print RX, Disp-7 tablet, R-0!! predniSONE (DELTASONE) 5 mg tabletTake 1 tablet by mouth every 48 hours for 7 days.Print RX, Disp-4 tablet, R-0pantoprazole DR (PROTONIX) 40 mg tabletTake 1 tablet by mouth once daily.Print RX, Disp-30 tablet, R-1, Long-termhydrocortisone 2.5 % creamApply 1 application to affected area twice daily for 39 doses.Print RX, Disp-453.6 g, R-5triamcinolone acetonide (KENALOG) 0.1 % ointmentApply 1 application to affected area twice daily for 81 doses.Print RX, Disp-453.6 g, R-11Cholecalciferol, Vitamin D3, (VITAMIN D) 1,000 unit capTake 1 capsule by mouth once daily.Print RX, Disp-30 capsule, R-1, Long-termCOMPOUNDED PRESCRIPTIONCBC with DIFFBMP (BUN, Cr, Na, K, Cl, CO2)Tuesdayonday 11/28Print RX, Disp-1 Each, R-0!! - Potential duplicate medications found. Please discuss with provider.FUTURE APPOINTMENTS:Appointments for Next 60 Days Date Time Provider Location Dept Phone 11/17/2017 12:25 PM DISCHARGE AREA MAIN 11/29/2017 8:00 AM TRIP RUSSELL (RES) DERM AANDE d [phone] 12/09/2017 11:15 AM PRE SCREENING VISIT [facility] [phone] 12/09/2017 11:45 AM CORINNE FINLEY (FEL) UROL Q [facility] [phone] patient's risk for 30-day readmission is determined using thefollowing contributing factors:Pt variables contributing to increased readmission risk: 56 Most Recent BUN Result 11 Active Medication Orders 8.1 First Resulted Calcium During Admission 1 Insurance - Private Coverage 1 History of AnemiaSIGNATURE: Marni Noble MD PAGER/CONTACT #: [id number]: November 17, 2017TIME: 6:48 AMStaff Addendum:Pt seen and examined on day of discharge. The above has been reviewed andedited to reflect my clinical evaluation. I personally spent > 30min onthis discharge in the coordination of care, medication reconciliation, andpatient counseling.Marin Roth MD11/17/2017 4:24 PM Normal [facility] CBC and Differentialon 11-16 Abs Baso 0.29 k/uL High <0.11 [facility] Comment on above: Performed By: #### P T, PTT, LACT, CMP, MG1, PHOS, CBCDIF ####[facility] [address], [place] [phone] Abs Haskell 0.42 k/uL Normal <0.87 [facility] Comment on above: Performed By: #### P T, PTT, LACT, CMP, MG1, PHOS, CBCDIF ####[facility] [address] AveCSan [place], [place] [phone] Abs Neut 10.91 k/uL High 1.45-7.50 [facility] Comment on above: Performed By: #### P T, PTT, LACT, CMP, MG1, PHOS, CBCDIF ####[facility] [address]CSan [address]andro, [place] [phone] Anisocytosis Auto Ql (Bld) Present Normal [facility] Comment on above: Performed By: #### P T, PTT, LACT, CMP, MG1, PHOS, CBCDIF ####[facility] [address] AveCSan [place]andro, [place] [phone] Basophils/100 WBC Auto (Bld) 1.7 % Normal [facility] Comment on above: Performed By: #### P T, PTT, LACT, CMP, MG1, PHOS, CBCDIF ####[place] [address], [place] [phone] DTYPE Manual Diff Normal [facility] Comment on above: Performed By: #### P T, PTT, LACT, CMP, MG1, PHOS, CBCDIF ####[place] [address] [place] [phone] Eosinophils Auto #/vol (Bld) 4.20 10*3/uL High <0.46 [facility] Comment on above: Performed By: #### P T, PTT, LACT, CMP, MG1, PHOS, CBCDIF ####[place] [address] [place] [phone] Eosinophils/100 WBC Auto (Bld) 24.8 % Normal [facility] Comment on above: Performed By: #### P T, PTT, LACT, CMP, MG1, PHOS, CBCDIF ####[place] [address] [place] [phone] Erythrocyte distribution width Auto Ratio (RBC) 18.8 % High 11.5-15.0 [facility] Comment on above: Performed By: #### P T, PTT, LACT, CMP, MG1, PHOS, CBCDIF ####[place] [address], [place] [phone] Hematocrit Auto Volume Fraction (Bld) 28.3 % Low 39.0-51.0 [facility] Comment on above: Performed By: #### P T, PTT, LACT, CMP, MG1, PHOS, CBCDIF ####[place] [address], [place] [phone] Hemoglobin mass conc (Bld) 8.7 g/dL Low 13.0-17.0 [facility] Comment on above: Performed By: #### P T, PTT, LACT, CMP, MG1, PHOS, CBCDIF ####[address] [phone] Lymphocytes Auto #/vol (Bld) 1.12 10*3/uL Normal 1.00-4.00 [facility] Comment on above: Performed By: #### P T, PTT, LACT, CMP, MG1, PHOS, CBCDIF ####[address] [phone] Lymphocytes/100 WBC Auto (Bld) 6.6 % Normal [facility] Comment on above: Performed By: #### P T, PTT, LACT, CMP, MG1, PHOS, CBCDIF ####[place] [phone] MCH Auto Entitic mass (RBC) 30.4 pG Normal 26.0-34.0 [facility] Comment on above: Performed By: #### P T, PTT, LACT, CMP, MG1, PHOS, CBCDIF ####[address] [phone] MCHC Auto mass conc (RBC) 30.7 g/dL Normal 30.5-36.0 [facility] Comment on above: Performed By: #### P T, PTT, LACT, CMP, MG1, PHOS, CBCDIF ####[address] [phone] MCV Auto Entitic volume (RBC) 99.0 fL Normal 80.0-100.0 [facility] Comment on above: Performed By: #### P T, PTT, LACT, CMP, MG1, PHOS, CBCDIF ####[address] [phone] Monocytes/100 WBC Auto (Bld) 2.5 % Normal [facility] Comment on above: Performed By: #### P T, PTT, LACT, CMP, MG1, PHOS, CBCDIF ####[address] [place], [place] [phone] Neutrophils/100 WBC Auto (Bld) 64.4 % Normal [facility] Comment on above: Performed By: #### P T, PTT, LACT, CMP, MG1, PHOS, CBCDIF ####[address] [phone] Platelet mean volume Auto Entitic volume (Bld) 11.1 fL Normal 9.0-12.7 [facility] Comment on above: Performed By: #### P T, PTT, LACT, CMP, MG1, PHOS, CBCDIF ####[address] [phone] Platelets Auto #/vol (Bld) 239 10*3/uL Normal 150-400 [facility] Comment on above: Performed By: #### P T, PTT, LACT, CMP, MG1, PHOS, CBCDIF ####[address] [phone] Platelets Auto #/vol (Bld) Platelet estimate adequate Normal [facility] Comment on above: Performed By: #### P T, PTT, LACT, CMP, MG1, PHOS, CBCDIF ####[address] [phone] Polychromasia Slight Normal [facility] Comment on above: Performed By: #### P T, PTT, LACT, CMP, MG1, PHOS, CBCDIF ####[address] [phone] RBC Auto #/vol (Bld) 2.86 10*6/uL Low 4.20-6.00 [facility] Comment on above: Performed By: #### P T, PTT, LACT, CMP, MG1, PHOS, CBCDIF ####[facility] [address] [place], [place] [phone] RBC Fragments Few Normal [facility] Comment on above: Performed By: #### P T, PTT, LACT, CMP, MG1, PHOS, CBCDIF ####[facility] [place], [place] [phone] WBC Auto #/vol (Bld) 16.94 10*3/uL High 3.70-11.00 [facility] Comment on above: Performed By: #### P T, PTT, LACT, CMP, MG1, PHOS, CBCDIF ####[facility] [address] [place], [place] [phone] CONSULT PROGon 11-16-2017 Protein mass conc HNO ID: [id number] thor: Cordell (Becca) AracelyabelService: DermatologyAuthor Type: ResidentType: Consult Progress NoteFiled: 11/16/2017 8:06 PMNote Text: -Attestation signed by Robbie Salazar at 11/16/2017 11:34 PMI have seen and examined Mr. Peck. I have discussed the case and themanagement of this patient's care with the Resident.Agree that the elevated eosinophila is of uncertain significance. I discussedwith the team that symptoms of facial swelling, lymphadenopathy and/orworsening rash may be more reliable indicators of reactivation of the DRESS.No specific change to therapy is recommended at this time.I also have reviewed and agree with the assessment and plan as stated above andagree with all of its relevant components. There were no procedures performedduring this patient's visit.Robbie Salazar MD DE RMATOLOGY CONSULT PROGRESS NOTEHPI:Re-consulted by primary team for input on DRESS with up-trending /increased eosinophil level on treatment.Briefly, Mr. Peck is a pleasant 57 yo gentleman with past medicalhistory of factor 5 Leiden (on coumadin) c/b DVT/PE, with recent R TKA inJune of 2017 and recovery c/b thigh abscess in August, s/p ABx (vanco,ceftriaxone, linesolid, doxy) after which patient developed a rashsometime in late August or early September. Given diagnosis of DRESS syndromewith transaminitis and DAYNA (hypotensive ATN > DRESS-related ATN) requiringCVVHD.Was initiated on steroids in house with improvement in hepatic and renalfunction to within normal limits. Eosinophilia has increased recently inthe context of a leukocytosis. Per patient, rash is slowly improving.Interval history:- Eosinophils continue to trend up- More serous exudate appreciated on sheets- Patient stablePERTINENT ROS: Denies recent fevers, chills, nausea, vomiting. Endorsesitch, irritated skinPHYSICAL EXAM: BP 122/66 Pulse 104 Temp 36.6 ?C (97.8 ?F) (Oral) Resp 16 Ht 188 cm (6' 2) Wt 89.2 kg (196 lb 10.4 oz) SpO2 98% BMI 25.25 kg/m?Gen: AANDOx3 in NADSkin exam performed including scalp, face, neck, chest, abdomen, arms,hands, legs, feet and noted findings of:- Over >90% of the body (trunk, extremities, face) are confluent pink,xerotic plaques with overlying dry scale- Lower extremities with serous exudate from erythematous plaques- No obvious facial edemaDATA:Component Latest Ref Rng AND Units 11/03/2017 11/05/2017 11/07/201711/11/2017 11/12/2017 11/13/2017 11/14/2017 11/15/2017WBC 3.70 - 11.00 k/uL 12.91 (H) 13.90 (H) 8.68 9.40 11.73 (H) 12.08 (H)14.18 (H) 13.99 (H) 17.30 (H) 18.50 (H)RBC 4.20 - 6.00 m/uL 2.91 (L) 2.25 (L) 2.48 (L) 2.57 (L) 2.57 (L) 2.69 (L)2.72 (L) 2.91 (L) 3.17 (L) 3.02 (L)Hemoglobin 13.0 - 17.0 g/dL 8.1 (L) 6.7 (L) 7.6 (L) 7.7 (L) 7.9 (L) 8.2(L) 8.3 (L) 8.9 (L) 9.6 (L) 9.3 (L)Hematocrit 39.0 - 51.0 % 24.5 (L) 19.8 (L) 22.5 (L) 23.9 (L) 24.5 (L) 26.7(L) 26.1 (L) 28.4 (L) 31.4 (L) 29.8 (L)MCV 80.0 - 100.0 fL 84.2 88.0 90.7 93.0 95.3 99.3 96.0 97.6 99.1 98.7MCH 26.0 - 34.0 pG 27.8 29.8 30.6 30.0 30.7 30.5 30.5 30.6 30.3 30.8MCHC 30.5 - 36.0 g/dL 33.1 33.8 33.8 32.2 32.2 30.7 31.8 31.3 30.6 31.2RDW-CV 11.5 - 15.0 % 18.4 (H) 18.7 (H) 20.8 (H) 20.5 (H) 20.2 (H) 19.9 (H)19.8 (H) 19.6 (H) 19.9 (H) 19.9 (H)Platelet Count 150 - 400 k/uL 122 (L) 180 209 235 271 283 284 316 315 286MPV 9.0 - 12.7 fL 10.8 10.6 11.1 10.5 11.0 11.3 10.8 11.1 11.0 11.2Neut% % 50.0 78.0 68.9 71.2 69.9 74.2 70.5 63.9 71.4 82.6Abs Neut (ANC) 1.45 - 7.50 k/uL 6.46 10.84 (H) 5.98 6.69 8.21 (H) 8.95 (H)10.00 (H) 8.94 (H) 12.35 (H) 15.28 (H)Lymph% % 35.0 9.6 16.9 14.6 14.4 12.7 6.3 13.9 6.0 2.6Abs Lymph 1.00 - 4.00 k/uL 4.52 (H) 1.33 1.47 1.37 1.69 1.54 0.89 (L) 1.951.04 0.48 (L)Haskell% % 9.0 8.8 11.1 12.2 9.9 8.3 7.1 9.4 4.9 0.0Abs Haskell <0.87 k/uL 1.16 (H) 1.22 (H) 0.96 (H) 1.15 (H) 1.16 (H) 1.00 (H)1.01 (H) 1.31 (H) 0.85 0.00Eosin% % 2.0 1.8 3.0 1.9 5.5 4.6 15.2 12.2 17.4 14.8Abs Eosin <0.46 k/uL 0.26 0.25 0.26 0.18 0.64 (H) 0.56 (H) 2.16 (H) 1.70(H) 3.01 (H) 2.74 (H)Baso% % 1.0 0.0 0.1 0.1 0.3 0.2 0.9 0.6 0.3 0.0Abs Baso <0.11 k/uL 0.13 (H) 0.00 <0.03 <0.03 0.03 0.03 0.13 (H) 0.09 0.050.00ANC(includeSEG+BAND) k/uL 6.46Myelo% % 2.0Realym% % 1.0Anisocytosis Present Present Present PresentLeft Shift Present PresentOvalocytes FewPolychromasia Slight Slight Slight SlightTarget Cells FewPlatelet Estimate Platelet estimate decreased Platelet estimate adequate Platelet estimate adequate Platelet estimate adequateDiff Type Manual Diff Manual Diff Auto Diff Auto Diff Auto Diff Auto DiffManual Diff Auto Diff Auto Diff Manual DiffMeta% % 1.8RBC Fragments Few FewNucleated Reds 0 /100 WBC 0.0 0.0 0.0 0.0 0.0 0.0Absolute nRBC <0.01 k/uL <0.01 <0.01 <0.01 <0.01 <0.01 <0.01Component Latest Ref Rng AND Units 11/03/2017 11/05/2017 11/07/201711/14/2017 11/15/2017Protein, Total 6.3 - 8.0 g/dL 6.4 6.8 7.0 7.4 7.3 7.6 7.2Albumin 3.9 - 4.9 g/dL 1.7 (L) 2.0 (L) 1.8 (L) 2.1 (L) 1.9 (L) 2.3 (L) 1.9(L)Calcium 8.5 - 10.2 mg/dL 7.4 (L) 7.4 (L) 7.0 (L) 7.7 (L) 8.4 (L) 8.7 8.2(L)Bilirubin, Total 0.2 - 1.3 mg/dL 11.0 (H) 7.4 (H) 4.2 (H) 3.4 (H) 2.8 (H)2.5 (H) 2.2 (H)Alkaline Phosphatase 36 - 108 U/L 508 (H) 708 (H) 506 (H) 461 (H) 312 (H)241 (H) 197 (H)AST 14 - 40 U/L 168 (H) 85 (H) 49 (H) 42 (H) 31 25 22Glucose 74 - 99 mg/dL 101 (H) 112 (H) 101 (H) 121 (H) 79 88 101 (H)BUN 9 - 24 mg/dL 38 (H) 66 (H) 53 (H) 65 (H) 80 (H) 71 (H) 60 (H)Creatinine 0.73 - 1.22 mg/dL 2.97 (H) 5.48 (H) 4.56 (H) 5.46 (H) 5.46 (H)3.58 (H) 3.44 (H)Sodium 136 - 144 mmol/L 143 139 138 140 141 150 (H) 149 (H)Potassium 3.7 - 5.1 mmol/L 5.1 5.8 (H) 4.8 4.7 4.6 3.8 3.8Chloride 97 - 105 mmol/L 110 (H) 106 (H) 102 103 103 112 (H) 113 (H)CO2 22 - 30 mmol/L 21 (L) 19 (L) 25 24 21 (L) 23 21 (L)Anion Gap 9 - 18 mmol/L 12 14 11 13 17 15 15ALT 10 - 54 U/L 256 (H) 154 (H) 98 (H) 86 (H) 56 (H) 37 29eGFR- 27 13 16 13 13 21 22eGFR-All Other Races . 22 11 13 11 11 18 19ASSESSMENT AND PLAN:Mr. Peck is a pleasant 57 yo gentleman with past medical history offactor 5 Leiden (on coumadin) c/b DVT/PE, with recent R TKA in July and recovery c/b thigh abscess in August, s/p ABx (vanco, ceftriaxone,linesolid, doxy) after which patient developed a rash sometime in lately or early September. Given diagnosis of DRESS syndrome with transaminitisand DAYNA (hypotensive ATN > DRESS-related ATN) requiring CVVHD.History and exam remains most consistent with DRESS. LFTs have normalizedand renal function improving. Although eosinophils remain elevated, thereis no evidence that following eosinophilia is recommended and eosinophiliadoes not appear to be a marker of impeding worsening of DRESS or have anysignificant prognostic value (although the evidence is limited) [1]Discussed this with patient and stressed the importance of following upwith PCP and a pig sticker close to home (patient's [facility] not to[facility] to [facility] due [facility]). Patient should have labs checked in3-4 weeks - stable LFTs and improving renal function expected. If rashworsens, labs show increaesd LFTs or worsening renal function, patient mayrequire longer steroid taper.> At this point, OK to continue with the steroid taper as planned with theaddition of an additional week of prednisone 5 mg daily followed by 2weeks of prednisone 5 mg every other day as discussed.> ContinueTriamcinolone ointment 0.1% over the body twice dailyMond-Tuesday for up to 6 weeks> Continue Hydrocortisone 2.5% cream over the face twice dailyTuesday-Tuesday for up to 3 weeks.> Would request 1 lb jar of Triamcinolone be placed in patient's room andgiven at discharge. Appropriate use of this medication will require a 1lb jar every 10 days.Will sign off, please contact the dermatology service for any questions orconcerns in the future.[1] Anca Y, Deloris H, Juan Miranda. Drug reaction with eosinophilia and systemicsymptoms: a retrospective study of 60 cases. Arch Dermatol. 2010Dec;146(12):1373-9.Faustino Fulton, MAXager: [id number] Resident, PGY-4September 2017 Normal [facility] Comp Metabolic Panelon 11-16 Albumin mass conc 1.9 g/dL Low 3.9-4.9 [facility] Comment on above: Performed By: #### P T, PTT, LACT, CMP, MG1, PHOS, CBCDIF ####[facility] [address] [place], [place] [phone] ALP enzyme act/vol 198 U/L High 38-113 [facility] Comment on above: Performed By: #### P T, PTT, LACT, CMP, MG1, PHOS, CBCDIF ####[facility] [address] [place], [place] [phone] ALT enzyme act/vol 26 U/L Normal 10-54 [facility] Comment on above: Performed By: #### P T, PTT, LACT, CMP, MG1, PHOS, CBCDIF ####[facility] [place], [place] [phone] Anion gap 3 molar conc 11 mmol/L Normal 9-18 [facility] Comment on above: Performed By: #### P T, PTT, LACT, CMP, MG1, PHOS, CBCDIF ####[address] [phone] AST enzyme act/vol 21 U/L Normal 14-40 [facility] Comment on above: Performed By: #### P T, PTT, LACT, CMP, MG1, PHOS, CBCDIF ####[address] [phone] Bilirubin mass conc 2.1 mg/dL High 0.2-1.3 [facility] Comment on above: Performed By: #### P T, PTT, LACT, CMP, MG1, PHOS, CBCDIF ####[place] [phone] Calcium mass conc 8.2 mg/dL Low 8.5-10.2 [facility] Comment on above: Performed By: #### P T, PTT, LACT, CMP, MG1, PHOS, CBCDIF ####[address] [phone] Chloride molar conc 108 mmol/L High 97-105 [facility] Comment on above: Performed By: #### P T, PTT, LACT, CMP, MG1, PHOS, CBCDIF ####[address] [phone] CO2 molar conc 24 mmol/L Normal 22-30 [facility] Comment on above: Performed By: #### P T, PTT, LACT, CMP, MG1, PHOS, CBCDIF ####[address] [phone] Creatinine mass conc 2.99 mg/dL High 0.73-1.22 [facility] Comment on above: Performed By: #### P T, PTT, LACT, CMP, MG1, PHOS, CBCDIF ####[facility] [place], [place] [phone] eGFR- Amer. 26 Normal [facility] Comment on above: Performed By: #### P T, PTT, LACT, CMP, MG1, PHOS, CBCDIF ####[facility] [place], [place] [phone] GFR/1.73 sq M predicted among non-blacks MDRD vol rate/area (S/P/Bld) 22 . Normal [facility] Comment on above: Result Comment: eGFR (Estimated GFR) Units of measure: mL/min/1.73 meters squaredeGFR is derived from the reexpressed MDRD Study equation using the following parameters: serum creatinine, age, gender and race. The creatinine assay has been calibrated to be traceable to IDMS.An eGFR <60 mL/min/1.73m2 for >3 months is consistent with chronic kidney disease. Refer to KDOQI guidelines for clinical interpretation.In patients with unstable renal function, e.g. those with acute kidney injury, the eGFR may not accurately reflect actual GFR. Performed By: #### P T, PTT, LACT, CMP, MG1, PHOS, CBCDIF ####[facility] [place], [place] [phone] Glucose mass conc 98 mg/dL Normal 74-99 [facility] Comment on above: Result Comment: The [place] Diabetes Association (ADA) provides guidance for cutoff values for fasting glucose and random glucose. The ADA defines fasting as no caloric intake for at least 8 hours. Fasting plasma glucose results between 100 to 125 mg/dL indicate increased risk for diabetes (prediabetes).Fasting plasma glucose results greater than or equal to 126 mg/dL meet the criteria for diagnosis of diabetes. In the absence of unequivocal hyperglycemia, results should be confirmed by repeat testing. In a patient with classic symptoms of hyperglycemia or hyperglycemic crisis, random plasma glucose results greater than or equal to 200 mg/dL meet the criteria for diagnosis of diabetes.Reference: Standards of Medical Care in Diabetes 2016, [place] Diabetes Association. Diabetes Care. 2016.39(Suppl 1). Performed By: #### P T, PTT, LACT, CMP, MG1, PHOS, CBCDIF ####[address] [phone] Potassium molar conc 3.4 mmol/L Low 3.7-5.1 [facility] Comment on above: Performed By: #### P T, PTT, LACT, CMP, MG1, PHOS, CBCDIF ####[address] [phone] Protein mass conc 6.8 g/dL Normal 6.3-8.0 [facility] Comment on above: Performed By: #### P T, PTT, LACT, CMP, MG1, PHOS, CBCDIF ####[address] [phone] Sodium molar conc 143 mmol/L Normal 136-144 [facility] Comment on above: Performed By: #### P T, PTT, LACT, CMP, MG1, PHOS, CBCDIF ####[address] [phone] Urea nitrogen mass conc 56 mg/dL High 9-24 [facility] Comment on above: Performed By: #### P T, PTT, LACT, CMP, MG1, PHOS, CBCDIF ####[address] [phone] NUTRITIONon 11-16-2017 NUTRITION HNO ID: [id number] thor: Rojas Leach) DimattioService: Nutrition TherapyAuthor Type: Registered DietitianType: NutritionFiled: 11/16/2017 9:32 AMNote Text:NUTRITION THERAPY REASSESSMENTSERVICE DATE: 11/16/2017SERVICE TIME: 8:45amRECOMMENDED MALNUTRITION DIAGNOSIS: MODERATE PROTEIN CALORIE MALNUTRITIONIn the context of Chronic Illness or Injury based on:Insufficient Energy Intake: Less than or equal to 75% energy intakecompared to estimated needs for greater than or equal to 1 monthSubcutaneous Fat Loss: Mild LossMuscle Loss Mild LossNUTRITION CARE PLAN:Problem, Etiology and Signs/Symptoms:Suboptimal protein/energy intake related to poor appetite as evidenced bypt report and variable/intermittent po intake since admissionIntervention:1. Recommend 2gm Na diet2. Continue Ensure Enlive (350 calories + 20gm protein) + Nepro QD (425calories + 19gm protein each) + d/c Magic Cup BID (290 calories + 9gmprotein each) per pt request3. Encourage PO intake and diet complianceCoordination of Care:PCNAs- please record percentage of meal intakes and supplement intakes inI/Os for most accurate nutrient analysis - thank youMonitor and Evaluation:Goal: Meet >75% of estimated needsMonitor fluid/electrolyte balanceMonitor labs, I/Os, vital signs, weightDischarge Nutrition Recommendations:Diet: as aboveSupplements: high calorie, high protein oral supplements of pt preferencewhen meeting <75% estimated needs via mealsPer HPI: Hung Peck is a 57 year old male with pertinent PMH of?- Factor V Leiden c/b DVT and PE on coumadin- Right Total Knee Replacement 07/2017 c/b Pseudomonas UTI infection08/2017, reexploration 08/2017 d/t concern of joint infection. Negative forjoint infection, but found to have R. Thigh Abscess and d/c'ed onCeftriaxone and Vanco. All cultures have been negative.- Re-admitted to OSH in 09/2017 with fever and rash, concern for allergy toVanco. Antibiotics changed to Zyvox and Doxycycline PO and patient wasdischarged. Rash worsened, patient saw outpatient provider who wasconcerned for allergy to?Zyvox, Zyvox?was d/c'ed 10/19 d/t concern of SJS.Patient was continued on PO Doxycycline.Presented to OSH on 10/28 with increased lethargy, swollen hands, face,tongue, new fever. In the ED he was found to have INR of 19.5. He wasgiven Vit K and his coumadin was held. He was also noted to havetransaminitis. CT of the right lower extremity demonstrated again aconcern for abscess and was started on doxycyline and Zosyn. He was notedto be hypotensive, with sbp ~100's, received 3.5L of fluid and started onnorepi. He was admitted to the MICU for treatment of septic shock. Heremained on Doxy and Zosyn and transiently on pressor support fortreatment of treatment of abscess. All of his cultures were negative. ?Stan developed a desquamating rash concerning for DRESS vs SJS/TEN. He wasalso noted to have worsening eosinophilia, worsening transaminitis, DAYNA,proteinuria. ??All of his antibiotics were stopped and he was started onIV Methylpred 40mg daily. The patient continued to improve. His liverenzymes peaked on 10/31 with AST 2034/ ALT 863/ Alk Phos 553 and sCr peakedat 2.57. Except his t-bili continued. ?General surgery evaluated him d/tthickened gallbladder and pericholecystic fluid and did not think he hadacute cholecystitis.?PAST MEDICAL HISTORYDiagnosis Date- Factor V Leiden (HCC)Interval History: Pt seen at bedside reporting of a healthy appetite.Denied any chewing or swallowing difficulties, along with any nausea orvomiting. Pt is able to feed himself independently. Pt tolerating allnutrition supplements except magic cup- will d/c. Recommend liberalizingdiet to 2gm Na diet. Pt has been receiving D5% d/t hypernatremia. Willcontinue to monitor and encourage adequate energy intake and dietcompliance.Current Diet Order DIET RENAL Order Specific Question: Renal Answer: 90GM PRO / 2GM K / 2 GM NA / LOW PHOSPHORUSLines and Drains:Peripheral 11/16/17 0357 Assessment Short Right Forearm 20 Gauge (Active)Nutritional Intake: Per Epic records, pt is eating intermittently [id number]% of documented meals. Some days, only one meal documented. However,pt states he has been drinking almost all of his nutrition supplementsexcept the magic cup. Per observation, pt ate 100% of documented meals.Will continue to monitor and encourage adequate energy intake and dietcompliance.GI symptoms: noneNutrition Abdominal Exam: and not assessedANTHROPOMETRICSHeigh t: 188 cm (6' 2)Admission Weight: 94.9 kg (209 lb 3.5 oz)Current Weight: 89.2 kg (196 lb 10.4 oz)Body mass index is 25.25 kg/m?. overweightPer RD initial assessment, UBW 200lbs.Last Wt11/14/17 : 89.2 kg (196 lb 10.4 oz)Resting Metabolic Rate: 1790UBW 200 lbs/90.9 kgDosing Weight: 90.9?kgEstimated kilocalorie needs: 7969-4493?kilocalories determined by25-30?kcal/kgEstimated protein needs: 109-137?grams determined by 1.2-1.5g/kg?Dosing?weightEst imated fluid needs: 2300?milliliters based on 1 mL per kcalNUTRITION FOCUSED PHYSICAL EXAM:Subcutaneous Fat LossOrbital MildTriceps MildMid-axillary at the iliac crest Unable to determine at this timeMuscle Loss Locations:Temporalis MildPectoralis MildDeltoids MildInterosseous MildLatissimus dorsi, trapezius Unable to determine at this timeQuadriceps No muscle lossGastrocnemius Unable to determine at this timePotential micronutrient deficiency revealed in: Skin - dermatitis, dry andflakyEdema: Yes Lower extremities Mild 1+Ascites: NoAssessment of Functional Status: Functional, yet not normal, able to be upand about with fairly normal activities for a duration of 2 weeksTemperature Max in 24 hours: Temp (24hrs), Av.7 ?C (98.1 ?F), Min:36.7?C (98 ?F), Max:36.8 ?C (98.2 ?F) BP 123/78 Pulse 82 Temp 36.7 ?C (98 ?F) (Oral) Resp 16 Ht 188cm (6' 2) Wt 89.2 kg (196 lb 10.4 oz) SpO2 99% BMI 25.25 kg/m?Recent Labs 1 GLUC 98 < > 88BUN 56* < > 71*CREAT 2.99* < > 3.58*NA 143 < > 150*K 3.4* < > 3.8CHLOR 108* < > 112*CO2 24 < > 23ALB 1.9* < > 2.3*P -- -- 3.9HB 8.7* < > 9.6*HCT 28.3* < > 31.4*WBC 16.94* < > 17.30*MG -- -- 1.9< > = values in this interval not displayed.Potential Signs of Inflammation: leukocytosis, hypoalbuminemia andmicrobiologic culturesALLERGIESAllergen Reactions- Ceftriaxone Rash Concern for DRESS- Linezolid Rash Concern of DRESS- Vancomycin Rash Concern of DRESSCurrent Facility-Administered Medications:triamcinolone acetonide 0.1 % (KENALOG) TOPICAL BIDhydrocortisone topical cream 2.5% TOPICAL BIDbisacodyl 10 mg suppository (DULCOLAX) 10 mg RECTAL ONCEdextrose 5% in water iv infusion 125 mL/hr INTRAVENOUS CONTINUOUSpredniSONE (DELTASONE) tab(s) 30 mg 30 mg ORAL DAILYpantoprazole 40 mg CUP (PROTONIX) 40 mg ORAL/FEEDING TUBE DAILY (6 AM)0.9% NaCl 10 mL 10 mL INTRAVENOUS q 12 H0.9% NaCl 20 mL 20 mL INTRAVENOUS PRNVitamin and Mineral Labs in the past year:Recent Labs 11/06/738371MGYW 156*FE 46FER 1,435.0*MNT Billing Type: Re-assess/15 min 4 unitsSIGNATURE: Rojas Contreras RD PATIENT NAME: Hung AhumadaoneDATE: November 16, 2017 : 9:21 AM PAGER: [phone] Normal [facility] PROGRESSon 11-16-2017 Protein mass conc HNO ID: [id number] thor: Marni Frazier: General Internal MedicineAuthor Type: PhysicianType: Progress NotesFiled: 11/16/2017 3:30 PMNote Text:INTERNAL MEDICINE - Otilio BPROGRESS NOTEWeekdays 7am to 5pm/Weekends 7am to 3pm: Please page [phone] 5pm to 7am/Weekends 3pm to 7am: Please page on-call [phone]: Hung PeckMRN: [id number] plan for the day:- Appreciate derm recs regarding eosinophilia, will continue with thesteroid taper for DRESS and add two more weeks of steroids, 5 mg daily forone week and 5 mg every alternate day for the next week after the currentplan of steroid taper ends.- Follow BMP tomorrow, if Na levels maintained within normal range and Crdown trending, can be discharged tomorrow- Appreciate PT recs, dispo is home PT.- DC D5W based on the Na levels.Interval History of Present Illness- No acute events overnight- HDS, HR stable around 80Interval Review of SystemsAll ROS reviewed and are negative except as noted in HPI.Physical ExamBody mass index is 25.25 kg/m?.BP 121/70 Pulse 60 Temp 36.5 ?C (97.7 ?F) (Oral) Resp 18 Ht188 cm (6' 2) Wt 89.2 kg (196 lb 10.4 oz) SpO2 100% BMI 25.25kg/m?Intake/Output Summary (Last 24 hours) at 11/16/17 1451Last data filed at 11/16/17 1300 Gross per 24 hourIntake 2580 mlOutput 1725 mlNet 855 mlGeneral: No acute distress, AANDOx3 , shiveringNeck: supple, no LAD, no JVDEyes: PERRLA, EOMILungs: clear to auscultation bilaterally, no wheezing, rhonchi or ralesHeart: RRR, normal S1 and S2, no murmurs, rubs or gallopsAbdomen: Soft, non-tender, non-distended. Bowel sounds normal. No ascites.No masses or hepatosplenomegaly.Extremiti es: Pulses intact and symmetric.Skin: +pale pink-red, flaking rash over arms, legs, hands and feet,?chest,Increased swelling of LLE compared to the R. Pitting edema 2+SKIN ULCERS:Please refer to Nursing documentationLabs AND ImagingDiagnostic tests reviewed:Labs:CBC, Coags, BMP, Mg, PhosRecent Labs 11/16/1803706WBC 16.94* 18.50* 17.30*HB 8.7* 9.3* 9.6*HCT 28.3* 29.8* 31.4*PLT 239 286 315INR 1.2 1.2 1.2NA 143 149* 150*K 3.4* 3.8 3.8CHLOR 108* 113* 112*CO2 24 21* 23BUN 56* 60* 71*CREAT 2.99* 3.44* 3.58*GLUC 98 101* 88CA 8.2* 8.2* 8.7MG -- -- 1.9P -- -- 3.9Current MedicationsReviewed:Current hospital medications:triamcinolone acetonide 0.1 % (KENALOG) TOPICAL BIDhydrocortisone topical cream 2.5% TOPICAL BID[START ON 12/13/2017] predniSONE 5 mg tab(s) (DELTASONE) 5 mg ORAL DAILY[START ON 12/20/2017] predniSONE 5 mg tab(s) (DELTASONE) 5 mg ORAL q 48 HRbisacodyl 10 mg suppository (DULCOLAX) 10 mg RECTAL ONCEpredniSONE (DELTASONE) tab(s) 30 mg 30 mg ORAL DAILY[START ON 11/23/2017] predniSONE 20 mg tab(s) (DELTASONE) 20 mg ORAL DAILY[START ON 12/03/2017] predniSONE 10 mg tab(s) (DELTASONE) 10 mg ORAL DAILYpantoprazole 40 mg CUP (PROTONIX) 40 mg ORAL/FEEDING TUBE DAILY (6 AM)0.9% NaCl 10 mL 10 mL INTRAVENOUS q 12 H0.9% NaCl 20 mL 20 mL INTRAVENOUS PRNAssessment AND [id number] with past medical history of FVL (on coumadin long-term) c/b DVT/PE('05, '06) and R TKA recovery c/b thigh abscess s/p 4 weeks ABx (vanco,ceftriaxone, linesolid, doxy) c/b DRESS syndrome with transaminitis andoliguric DAYNA requiring CVVHD; now recovering on steroid taper, also nowproducing urine, per renal consider etiology DRESS AIN vs morelikely?hypotensive ATN (due to overall illness, acute blood loss).Recovery c/b RP bleed with supratheraputic INR (19.5) requiring manytransfusions and coumadin reversal. Now off all AC. Monitoring Hb, renalstatus.Cr downtrending over the last couple of days.?Active Hospital Problems? Diagnosis- Status post total right knee replacement? ? Assessment: Unclear hx of PJI/thigh abscess. Patient had presentedlate August with swelling and loss of mobility of joint. S/p IANDD 09/18 ofthigh fluid pocket, no revision to TKA, per patient/family original tapfrom knee was cx negative. S/p 4 weeks ABx (vanco, ceftriaxone, linezolid,doxy). CT OSH from 10/28 with reported right leg ?abscess/fluid collectionsuprapatellar space. No leukocytosis, no fevers, but + groin adenopathyseen on DVT studies. On PE, no signs erythema/swelling/pain.PLAN: ?-per patient/family, ID doctor informed them that they had completed allrequired ABx-R Knee XR UR-No ABX at this time??- Mild protein-calorie malnutrition (HCC)- Retroperitoneal bleed? ? Assessment:OSH CT A/P (11/03) with RP bleed in setting ofsupratherapeutic INR (19.5). S/p many transfusions at OSH and hereincluding PRBC, vitamin K, and FFP.PLAN:-IR consulted- no intervention at this time, continue medical management.-Vasc consulted - no intervention at this time, remain off ALL AC for 2-4weeks-F/u with Dr. Le (manages coumadin long-term) in 2 weeks-No evidence of ?DVT study 11/07; superficial thrombus noted LLE??- DAYNA (acute kidney injury) (HCC)? ? Assessment: Nonoliguric DAYNA/ATN secondary to hemodynamic instabilityvs DRESS syndrome. Normal SCr at baseline. Started on CVVHD on 11/06 forhyperkalemia not responding to medical management. CVVHD stopped early on11/07 due to clots in filter. Per renal, no need for CVVHD (11/10) willcontinue to monitor. Patient urinating.# Na levels back to normal - 143PLAN:-removal of RIJ per renal, UO polyuric-Avoid Nephrotoxic agents-Renally dose meds-Nephrology following, appreciate input.?-# DC D5W?- Hepatitis? ? Assessment: Likely 2/2 to DRESS. US (11/01) thickened GB wall with asmall amt of pericholecystic fluid. Mild hepatomegaly with with mild fattyinfiltration. Transaminase trending down, hyperbilirubinemia improving.Acute hep panel significant for previous B exposure, Hep C antibody +. ?USwith appropriate flow, no biliary dilation, non-specific GB wallthickening. ?PLAN:- Trend LFTs- Given 2 doses of Vit K, 11/06 and 11/07.?- Factor V Leiden (HCC)? ? Assessment: H/o Factor V Leiden with h/o PE/DVT on coumadin.Supratherapetic INR of 19 on presentation to OSH 10/28.PLAN:- Holding anticoagulation in setting of supratherapeutic INR and acuteblood loss anemia.- PAS and SHINE rand.- Encourage ambulation.- Updated Dr. Glez [phone], local physician who manages coumadin;apt in 2 weeks to consider restarting without bridge??- Drug induced rash with eosinophilia and systemic symptoms? ? Assessment: Suspected DRESS at OSH with fever, desquamating rash,peripheral eosinophilia, DAYNA, hepatitis in setting ofvanco/linezolid/ceftriaxon e/doxy therapy in 08/2017 for thigh abscess.Timeline most suggestive of vanc/ceftriaxone being culprit; by the timepatient started linezolid/doxy, he was already +rash, swelling.# Absolute Eosinophilia noticed on labs againPLAN:?- Supportive management- Methylprednisolone 40 mg daily ?- Taper by 10 mg q10 days per Derm recs- Derm consulted, appreciate recommendations# Follow up with derm Recs - will continue with the steroid taper forDRESS and add two more weeks of steroids, 5 mg daily for one week and 5 mgevery alternate day for the next week after the current plan of steroidtaper ends.??- Anemia due to blood loss? ? Assessment: Due to RP bleed s/p many RBC, FFP transfusions.Plan:-Hb daily-Transfuse goal: Hb >7- Currently Hb steady at 8.7???# Lines:? ?Lines, Drains, and Airways?Line? Peripheral 11/09/17 1600 Left Arm 20 Gauge 3 days ?? Peripheral 11/09/17 1600 Right Arm 22 Gauge 3 days ?# VTE PPx: compression stockings, pneumatic devices# GI PPx: pantoprazole# Diet: Regular# Dispo: to appropriate level of care when medically stable, per PT/OTconsidder home with PT however have not seen patient since 11/09# Code Status: Full codeSIGNATURE: Bonita Pete MD PATIENT NAME: Hung AhumadaoneDATE: November 16, 2017 : 2:51 PM PAGER/CONTACT #: [phone] recommendations are not final until staffed by attending provider.[facility] STAFF PHYSICIAN NOTE OF PERSONAL INVOLVEMENT IN CAREI have reviewed the progress note obtained and documented by the residentand I personally participated in the madrigal components. I have discussed thecase and management of the patient's care. The following comments reviseor confirm relevant madrigal components of their note.IMPRESSION: This is a 57M with h/o VTE on coumadin, factor V leidenpresents with rash, fever, facial swelling, DAYNA and hepatitis concerningfor DRESS.?Pt reports no complaints. Denies dysuria, SOB, cough, pain.?Exam:Nontoxic, sitting up in bedRRR, no murmursLungs clearDiffuse erythema with some exfoliation over feet and R lateral lau,extensive scaling over face, serous fluid on beddingL calf > in circumference than R calf, 2+ distal LLE edema, 1+ R distal LEedemaabd soft NT?PLAN:?# Tachycardia, resolved: infectious workup negative. Suspect euvolemia asimproved with IVF?# DRESS: absolute eos have uptrended from 180 earlier in course to 4200,rise in eos most noted on 11/12; methylpred dose reduced on 11/13. Unclearrise in eos - derm reassured by clinical improvement- extensive review of OSH, based on timeline, potential culprit ABX in 2-6weeks before skin symptom onset include: Vanc + CTX, linezolid is possibleas well in this time frame so will keep this on the allergy list. Ciprowas administered in early August and seems an unlikely culprit. Doxy wasadministered briefly in 10/11 timeframe but also seems to be less likelyculprit --> added CTX to allergy list- will need CBC monitoring as out- triamcinolone + hydrocort per derm recs- pred taper as outlined by derm?# RP bleed: in setting of supratherapeutic INR at OSH, s/p 7u pRBCs inICU. H/H stable- hold coumadin for 3-4 weeks per VM, PCP f/u?# DAYNA: required CRRT 11/06-11/07, now with good UOP and improvement in labs,likely ischemic ATN 2/2 hypotension- f/u labs and IANDOs# Hypernatremia: from post-ATN diuresis, normalized with D5W - stop todayand monitor with PO fluid intake; pt counseled to increase PO water intake# Hepatitis: likely 2/2 DRESS, LFTs improved# Hematuria: seen by uro, resolved?Dispo?- home with C likely tomorrow if Na remains WNL with PO intakeSIGNATURE: Marni Roth, MDPAGER: [phone] of SERVICE: 11/16/2017TIME of SERVICE: 3:25 PM Normal [facility] Protimeon 11-16-2017 INR Coag RelTime (Bld) 1.2 {INR} Normal 0.9-1.3 [facility] Comment on above: Result Comment: Nini min K Antagonist (VKA) Therapeutic Range: INR 2 to 3 (Target INR of 2.5)Note: For patients treated with VKA drugs, such as warfarin, the [employer] 2012 Guideline recommends a therapeutic INR range of 2 to 3 (target INR of 2.5). This recommendation includes high-risk patients with antiphospholipid syndrome with previous arterial or venous thromboembolism, current-generation mechanical or bioprosthetic aortic heart valve replacement.Note: Patients with mechanical aortic valve replacement and additional risk factors for thromboembolic events (atrial fibrillation, previous thromboembolism, LV dysfunction, hypercoagulable conditions) or an older generation mechanical AVR (i.e., ball in-Cage) or any mechanical MVR should have a INR therapeutic range of 2.5 to 3.5 (target INR of 3).Raghav GH, et al. Chest 2012, 141:7S-47SNishimbill RA, et al. JACC 2017, 70: 252-289 Performed By: #### P T, PTT, LACT, CMP, MG1, PHOS, CBCDIF ####[facility] [address] [place], [place] [phone] PT Sec 12.4 sec Normal 9.7-13.0 [facility] Comment on above: Performed By: #### P T, PTT, LACT, CMP, MG1, PHOS, CBCDIF ####[place] [address] [address] [place] [phone] CBC and Differentialon 11-15 Abs Baso 0.00 k/uL Normal <0.11 [facility] Comment on above: Performed By: #### P T, PTT, LACT, CMP, MG1, PHOS, CBCDIF ####[place] [address] [address] [place] [phone] Abs Haskell 0.00 k/uL Normal <0.87 [facility] Comment on above: Performed By: #### P T, PTT, LACT, CMP, MG1, PHOS, CBCDIF ####[address] [phone] Abs Neut 15.28 k/uL High 1.45-7.50 [facility] Comment on above: Performed By: #### P T, PTT, LACT, CMP, MG1, PHOS, CBCDIF ####[place] [address] [address] [phone] Anisocytosis Auto Ql (Bld) Present Normal [facility] Comment on above: Performed By: #### P T, PTT, LACT, CMP, MG1, PHOS, CBCDIF ####[address] Av[address] [phone] Basophils/100 WBC Auto (Bld) 0.0 % Normal [facility] Comment on above: Performed By: #### P T, PTT, LACT, CMP, MG1, PHOS, CBCDIF ####[address] [phone] DTYPE Manual Diff Normal [facility] Comment on above: Performed By: #### P T, PTT, LACT, CMP, MG1, PHOS, CBCDIF ####[place] [address] [address] [phone] Eosinophils Auto #/vol (Bld) 2.74 10*3/uL High <0.46 [facility] Comment on above: Performed By: #### P T, PTT, LACT, CMP, MG1, PHOS, CBCDIF ####[place] [address] [address] [place] [phone] Eosinophils/100 WBC Auto (Bld) 14.8 % Normal [facility] Comment on above: Performed By: #### P T, PTT, LACT, CMP, MG1, PHOS, CBCDIF ####[place] [address] [address] [place] [phone] Erythrocyte distribution width Auto Ratio (RBC) 19.9 % High 11.5-15.0 [facility] Comment on above: Performed By: #### P T, PTT, LACT, CMP, MG1, PHOS, CBCDIF ####[place] [address] [address] [phone] Hematocrit Auto Volume Fraction (Bld) 29.8 % Low 39.0-51.0 [facility] Comment on above: Performed By: #### P T, PTT, LACT, CMP, MG1, PHOS, CBCDIF ####[place] [address] [address] [phone] Hemoglobin mass conc (Bld) 9.3 g/dL Low 13.0-17.0 [facility] Comment on above: Performed By: #### P T, PTT, LACT, CMP, MG1, PHOS, CBCDIF ####[place] [address] [address] [phone] Lymphocytes Auto #/vol (Bld) 0.48 10*3/uL Low 1.00-4.00 [facility] Comment on above: Performed By: #### P T, PTT, LACT, CMP, MG1, PHOS, CBCDIF ####[place] [address] [address] [phone] Lymphocytes/100 WBC Auto (Bld) 2.6 % Normal [facility] Comment on above: Performed By: #### P T, PTT, LACT, CMP, MG1, PHOS, CBCDIF ####[place] [address] AveCSan Leandro, [place] [phone] MCH Auto Entitic mass (RBC) 30.8 pG Normal 26.0-34.0 [facility] Comment on above: Performed By: #### P T, PTT, LACT, CMP, MG1, PHOS, CBCDIF ####[place] [address] [address] [place] [phone] MCHC Auto mass conc (RBC) 31.2 g/dL Normal 30.5-36.0 [facility] Comment on above: Performed By: #### P T, PTT, LACT, CMP, MG1, PHOS, CBCDIF ####[place] [address] [address] [place] [phone] MCV Auto Entitic volume (RBC) 98.7 fL Normal 80.0-100.0 [facility] Comment on above: Performed By: #### P T, PTT, LACT, CMP, MG1, PHOS, CBCDIF ####[place] [address] [address] [place] [phone] Monocytes/100 WBC Auto (Bld) 0.0 % Normal [facility] Comment on above: Performed By: #### P T, PTT, LACT, CMP, MG1, PHOS, CBCDIF ####[facility] [place] [phone] Neutrophils/100 WBC Auto (Bld) 82.6 % Normal [facility] Comment on above: Performed By: #### P T, PTT, LACT, CMP, MG1, PHOS, CBCDIF ####[place] [id number] AveCSan [place]andro, [place] [phone] Platelet mean volume Auto Entitic volume (Bld) 11.2 fL Normal 9.0-12.7 [facility] Comment on above: Performed By: #### P T, PTT, LACT, CMP, MG1, PHOS, CBCDIF ####[address] [phone] Platelets Auto #/vol (Bld) 286 10*3/uL Normal 150-400 [facility] Comment on above: Performed By: #### P T, PTT, LACT, CMP, MG1, PHOS, CBCDIF ####[address] [phone] Platelets Auto #/vol (Bld) Platelet estimate adequate Normal [facility] Comment on above: Performed By: #### P T, PTT, LACT, CMP, MG1, PHOS, CBCDIF ####[address] [phone] Polychromasia Slight Normal [facility] Comment on above: Performed By: #### P T, PTT, LACT, CMP, MG1, PHOS, CBCDIF ####[address] [phone] RBC Auto #/vol (Bld) 3.02 10*6/uL Low 4.20-6.00 Cl [facility] Comment on above: Performed By: #### P T, PTT, LACT, CMP, MG1, PHOS, CBCDIF ####[address] [phone] RBC Fragments Few Normal [facility] Comment on above: Performed By: #### P T, PTT, LACT, CMP, MG1, PHOS, CBCDIF ####[address] [phone] WBC Auto #/vol (Bld) 18.50 10*3/uL High 3.70-11.00 C [facility] Comment on above: Performed By: #### P T, PTT, LACT, CMP, MG1, PHOS, CBCDIF ####[facility] [address] [place], [place] [phone] CONSULT PROGon 11-15-2017 Protein mass conc HNO ID: [id number] thor: Cordell Pandaice: DermatologyAuthor Type: ResidentType: Consult Progress NoteFiled: 11/15/2017 6:36 PMNote Text: -Attestation signed by Robbie De Luna) Martin at 11/15/2017 9:45 PMI have seen and examined Mr. Peck. I have discussed the case and themanagement of this patient's care with the Resident.For this patient, I recommend rechecking the LFTs, CBC and renal panel in about1 month. Clinically, he appears to be improving and I would not recommendfollowing the eosinophil count closely. I do not believe that it hassignificant prognostic value at this point, given the improvement in his otherclinical and laboratory parameters. Please do not hesitate to contact us ifthere are questions. I agree with the remainder of the plan outlined in theresident note.I also have reviewed and agree with the assessment and plan as stated above andagree with all of its relevant components. There were no procedures performedduring this patient's visit.Robbie Salazar MD DE RMATOLOGY CONSULT PROGRESS NOTEINTERVAL HISTORY:Re-consulted by primary team for input on DRESS with up-trending /increased eosinophil level on treatment.Briefly, Mr. Peck is a pleasant 57 yo gentleman with past medicalhistory of factor 5 Leiden (on coumadin) c/b DVT/PE, with recent R TKA inJune of 2017 and recovery c/b thigh abscess in August, s/p ABx (vanco,ceftriaxone, linesolid, doxy) after which patient developed a rashsometime in late August or early September. Given diagnosis of DRESS syndromewith transaminitis and DAYNA (hypotensive ATN > DRESS-related ATN) requiringCVVHD.Was initiated on steroids in house with improvement in hepatic and renalfunction to within normal limits. Eosinophilia has increased recently inthe context of a leukocytosis. Per patient, rash is slowly improving.PERTINENT ROS: Denies recent fevers, chills, nausea, vomiting. Endorsesitch.PHYSICAL EXAM: BP 113/50 Pulse 111 Temp 36.8 ?C (98.2 ?F) (Oral) Resp 20 Ht 188 cm (6' 2) Wt 89.2 kg (196 lb 10.4 oz) SpO2 98% BMI 25.25 kg/m?Gen: AANDOx3 [facility] performed including scalp, face, neck, chest, abdomen, arms,hands, legs, feet and noted findings of:- Over >90% of the body (trunk, extremities, face) are confluent pink,xerotic plaques with overlying dry scale- No obvious facial edemaDATA:Component Latest Ref Rng AND Units 11/03/2017 11/05/2017 11/07/201711/11/2017 11/12/2017 11/13/2017 11/14/2017 11/15/2017WBC 3.70 - 11.00 k/uL 12.91 (H) 13.90 (H) 8.68 9.40 11.73 (H) 12.08 (H)14.18 (H) 13.99 (H) 17.30 (H) 18.50 (H)RBC 4.20 - 6.00 m/uL 2.91 (L) 2.25 (L) 2.48 (L) 2.57 (L) 2.57 (L) 2.69 (L)2.72 (L) 2.91 (L) 3.17 (L) 3.02 (L)Hemoglobin 13.0 - 17.0 g/dL 8.1 (L) 6.7 (L) 7.6 (L) 7.7 (L) 7.9 (L) 8.2(L) 8.3 (L) 8.9 (L) 9.6 (L) 9.3 (L)Hematocrit 39.0 - 51.0 % 24.5 (L) 19.8 (L) 22.5 (L) 23.9 (L) 24.5 (L) 26.7(L) 26.1 (L) 28.4 (L) 31.4 (L) 29.8 (L)MCV 80.0 - 100.0 fL 84.2 88.0 90.7 93.0 95.3 99.3 96.0 97.6 99.1 98.7MCH 26.0 - 34.0 pG 27.8 29.8 30.6 30.0 30.7 30.5 30.5 30.6 30.3 30.8MCHC 30.5 - 36.0 g/dL 33.1 33.8 33.8 32.2 32.2 30.7 31.8 31.3 30.6 31.2RDW-CV 11.5 - 15.0 % 18.4 (H) 18.7 (H) 20.8 (H) 20.5 (H) 20.2 (H) 19.9 (H)19.8 (H) 19.6 (H) 19.9 (H) 19.9 (H)Platelet Count 150 - 400 k/uL 122 (L) 180 209 235 271 283 284 316 315 286MPV 9.0 - 12.7 fL 10.8 10.6 11.1 10.5 11.0 11.3 10.8 11.1 11.0 11.2Neut% % 50.0 78.0 68.9 71.2 69.9 74.2 70.5 63.9 71.4 82.6Abs Neut (ANC) 1.45 - 7.50 k/uL 6.46 10.84 (H) 5.98 6.69 8.21 (H) 8.95 (H)10.00 (H) 8.94 (H) 12.35 (H) 15.28 (H)Lymph% % 35.0 9.6 16.9 14.6 14.4 12.7 6.3 13.9 6.0 2.6Abs Lymph 1.00 - 4.00 k/uL 4.52 (H) 1.33 1.47 1.37 1.69 1.54 0.89 (L) 1.951.04 0.48 (L)Haskell% % 9.0 8.8 11.1 12.2 9.9 8.3 7.1 9.4 4.9 0.0Abs Haskell <0.87 k/uL 1.16 (H) 1.22 (H) 0.96 (H) 1.15 (H) 1.16 (H) 1.00 (H)1.01 (H) 1.31 (H) 0.85 0.00Eosin% % 2.0 1.8 3.0 1.9 5.5 4.6 15.2 12.2 17.4 14.8Abs Eosin <0.46 k/uL 0.26 0.25 0.26 0.18 0.64 (H) 0.56 (H) 2.16 (H) 1.70(H) 3.01 (H) 2.74 (H)Baso% % 1.0 0.0 0.1 0.1 0.3 0.2 0.9 0.6 0.3 0.0Abs Baso <0.11 k/uL 0.13 (H) 0.00 <0.03 <0.03 0.03 0.03 0.13 (H) 0.09 0.050.00ANC(includeSEG+BAND) k/uL 6.46Myelo% % 2.0Realym% % 1.0Anisocytosis Present Present Present PresentLeft Shift Present PresentOvalocytes FewPolychromasia Slight Slight Slight SlightTarget Cells FewPlatelet Estimate Platelet estimate decreased Platelet estimate adequate Platelet estimate adequate Platelet estimate adequateDiff Type Manual Diff Manual Diff Auto Diff Auto Diff Auto Diff Auto DiffManual Diff Auto Diff Auto Diff Manual DiffMeta% % 1.8RBC Fragments Few FewNucleated Reds 0 /100 WBC 0.0 0.0 0.0 0.0 0.0 0.0Absolute nRBC <0.01 k/uL <0.01 <0.01 <0.01 <0.01 <0.01 <0.01Component Latest Ref Rng AND Units 11/03/2017 11/05/2017 11/07/201711/14/2017 11/15/2017Protein, Total 6.3 - 8.0 g/dL 6.4 6.8 7.0 7.4 7.3 7.6 7.2Albumin 3.9 - 4.9 g/dL 1.7 (L) 2.0 (L) 1.8 (L) 2.1 (L) 1.9 (L) 2.3 (L) 1.9(L)Calcium 8.5 - 10.2 mg/dL 7.4 (L) 7.4 (L) 7.0 (L) 7.7 (L) 8.4 (L) 8.7 8.2(L)Bilirubin, Total 0.2 - 1.3 mg/dL 11.0 (H) 7.4 (H) 4.2 (H) 3.4 (H) 2.8 (H)2.5 (H) 2.2 (H)Alkaline Phosphatase 36 - 108 U/L 508 (H) 708 (H) 506 (H) 461 (H) 312 (H)241 (H) 197 (H)AST 14 - 40 U/L 168 (H) 85 (H) 49 (H) 42 (H) 31 25 22Glucose 74 - 99 mg/dL 101 (H) 112 (H) 101 (H) 121 (H) 79 88 101 (H)BUN 9 - 24 mg/dL 38 (H) 66 (H) 53 (H) 65 (H) 80 (H) 71 (H) 60 (H)Creatinine 0.73 - 1.22 mg/dL 2.97 (H) 5.48 (H) 4.56 (H) 5.46 (H) 5.46 (H)3.58 (H) 3.44 (H)Sodium 136 - 144 mmol/L 143 139 138 140 141 150 (H) 149 (H)Potassium 3.7 - 5.1 mmol/L 5.1 5.8 (H) 4.8 4.7 4.6 3.8 3.8Chloride 97 - 105 mmol/L 110 (H) 106 (H) 102 103 103 112 (H) 113 (H)CO2 22 - 30 mmol/L 21 (L) 19 (L) 25 24 21 (L) 23 21 (L)Anion Gap 9 - 18 mmol/L 12 14 11 13 17 15 15ALT 10 - 54 U/L 256 (H) 154 (H) 98 (H) 86 (H) 56 (H) 37 29eGFR- 27 13 16 13 13 21 22eGFR-All Other Races . 22 11 13 11 11 18 19ASSESSMENT AND PLAN:Mr. Peck is a pleasant 57 yo gentleman with past medical history offactor 5 Leiden (on coumadin) c/b DVT/PE, with recent R TKA in July and recovery c/b thigh abscess in August, s/p ABx (vanco, ceftriaxone,linesolid, doxy) after which patient developed a rash sometime in lateAugust or early September. Given diagnosis of DRESS syndrome with transaminitisand DAYNA (hypotensive ATN > DRESS-related ATN) requiring CVVHD.History and exam remains most consistent with DRESS. LFTs have normalizedand renal function improving. Although eosinophils remain elevated, thereis no evidence that following eosinophilia is recommended and eosinophiliadoes not appear to be a marker of impeding worsening of DRESS.Discussed this with patient and stressed the importance of following upwith PCP and a pig sticker close to home (patient's preference not to[facility] to [facility] due [facility]). Patient should have labs checked in3-4 weeks - stable LFTs and improving renal function expected. If rashworsens, labs show increaesd LFTs or worsening renal function, patient mayrequire longer steroid taper.> At this point, OK to continue with the steroid taper as planned with theaddition of an additional week of prednisone 5 mg daily followed by 2weeks of prednisone 5 mg every other day.> Start Triamcinolone ointment 0.1% over the body twice dailyTuesday-Tuesday for up to 6 weeks> Start Hydrocortisone 2.5% cream over the face twice daily Tuesday-Tuesdayfor up to 3 weeks.Will sign off, please contact the dermatology service for any questions orconcerns in the future.Cordell Fulton, MAXager: [phone] Resident, PGY-4Sept2017 Normal [facility] Protein mass conc HNO ID: [id number] thor: Marlo Lopezervice: NephrologyAuthor Type: PhysicianType: Consult Progress NoteFiled: 11/15/2017 5:00 PMNote Text:CONSULT PROGRESS NOTENEPHROLOGY SERVICESubjectiveINTERVAL HISTORY:Tmax 100 yesterdayNon oliguricHematuria resolvingRemains hypernatremicMEDICATIONS:[facility]:polyethylene glycol 3350 17 g packet (MIRALAX, GLYCOLAX) 17 g ORAL ONCEdextrose 5% in water iv infusion 100 mL/hr INTRAVENOUS CONTINUOUSpredniSONE (DELTASONE) tab(s) 30 mg 30 mg ORAL DAILY[START ON 11/23/2017] predniSONE 20 mg tab(s) (DELTASONE) 20 mg ORAL DAILY[START ON 12/03/2017] predniSONE 10 mg tab(s) (DELTASONE) 10 mg ORAL DAILYpantoprazole 40 mg CUP (PROTONIX) 40 mg ORAL/FEEDING TUBE DAILY (6 AM)0.9% NaCl 10 mL 10 mL INTRAVENOUS q 12 H0.9% NaCl 20 mL 20 mL INTRAVENOUS PRNObjectivePHYSICAL EXAM:BP 103/63 Pulse 105 Temp 36.7 ?C (98.1 ?F) (Oral) Resp 18 Ht188 cm (6' 2) Wt 89.2 kg (196 lb 10.4 oz) SpO2 97% BMI 25.25kg/m?Intake/Output Summary (Last 24 hours) at 11/15/17 0759Last data filed at 11/15/17 0749 Gross per 24 hourIntake 2980 mlOutput 2100 mlNet 880 mlConstitutional: No acute distress and ResponsiveNeck: Trachea midlineNo jugular venous distensionCardiovascular: Regular rate and ryhthm, normal S1 and S2, no murmurs,rubs, or gallops+2 edemaRespiratory: Normal respiratory effort.Lungs clear bilaterally.Abdomen: Soft, non-tender, non-distended. Normal bowel sounds. Nohepatosplenomegaly.Psychia tric: Alert and oriented x self, place, time, and settingNormal mood/affectIntegumentary: rash on upper extremities bilaterallyDATA:Diagnostic tests reviewed for today's visit:Most recent labs and imaging results.Recent Labs 09/25/180366 0911/13/1804NA 149* 150* 144 141 141 143K 3.8 3.8 3.9 3.9 4.6 4.4CHLOR 113* 112* 107* 105 103 106*CO2 21* 23 23 22 21* 22BUN 60* 71* 77* 84* 80* 79*CREAT 3.44* 3.58* 4.13* 4.83* 5.46* 5.98*GLUC 101* 88 77 82 79 108*ANION 15 15 14 14 17 15CA 8.2* 8.7 8.7 8.4* 8.4* 7.9*P -- 3.9 4.1 4.8 5.4* 5.7*MG -- 1.9 2.0 2.0 2.0 2.2Recent Labs 11/14/1806WBC 18.50* 17.30* -- 13.99*HB 9.3* 9.6* 9.0* 8.9*HCT 29.8* 31.4* -- 28.4*PLT 286 315 -- 316Recent Labs 11/14/1806INR 1.2 1.2 1.1Recent Labs 3COLOR Senia*CLARITY Cloudy*UGLUC NegativeUBILI NegativeUKET NegativeSPGR 1.012UHB 2+*UPH 6.0UPROT 30*NITRITES NegativeLEUKEST 1+*UWBC 11-25*URBC >25*Recent Labs LACT 2.0Recent Labs 11/06/1809FER -- -- 1,435.0*TRANSFERSAT -- -- 29HB 9.3* < > 8.2*< > = values in this interval not displayed.Recent Labs 11/14/1806A 8.2* 8.7P -- 3.9ALB 1.9* 2.3*No results for input(s): BUNRAT, BUNPR, BUNPO in the last 168 hours.Recent Labs [id number] Positive*Recent Labs 11/14/18062TBILI 2.2* 2.5* 2.7*ALT 29 37 46AST 22 25 32ALKPHOS 197* 241* 270*No results for input(s): CK, CKMB, TROPT in the last 168 hours.Assessment/Plan57 year old male with history of DVT and PE in the setting of factor VLeiden mutation. S/p R TKR in 08/2017 post op course c/b R thigh abscessand pseudomonas UTI initially treated with vancomycin (developed rash)subsequently switched to zyvox /doxycycline resulting in worseningdesquamative rash with concerns for DRESS (treated with steroids) coursefurther c/b retroperitoneal bleed . Nephrology following for AKI1. Non oligirc DAYNA requiring DIRECTOR CAREER from 11/06 to 11/07-Baseline Cr <1 (no records)-Etiology unclear . Differentials includeischemic ATN in the setting ofhypotension and RP bleed and AIN-Renal ultrasound: R kidney 12cm , L 13cm , increased echogenicity, nohydronephrosis-renal fucntion gradually recovering2.HypernatremiaFre e water deficit 3.5L3. Azotemia -gradually improvingNo uremic symptoms4. Gross Hematuria -improvingHx of traumatic catheterization at OSHAssociated problems-Electrolytes: as above-.Acid-base: non gap metabolic acidosis- AnemiaPLAN-Continue D5W increase rate to 125ml/hr-Encourage oral intake-Avoid nephrotoxic medicationsConsent for DIRECTOR CAREER:DIRECTOR CAREER initiation date: not applicableSIGNATURE: Mae Foster MD PATIENT NAME: Hung AhumadaoneDATE: November 15, 2017 : 8:04 AM PAGER: [phone] have seen and examined the patient with the resident and fellow team. Ihave confirmed the madrigal portions of the history and physical above.Recent Labs 11/14/18062CREAT 3.44* 3.58* -- 4.13*K 3.8 3.8 -- 3.9HB 9.3* 9.6* 9.0* 8.9*WBC 18.50* 17.30* -- 13.99*I agree with the Assessment and Plan as outlined above. In addition:anticipate further renal recovering, agree with free water replacement.Signed:Marlo Rand MD Normal [facility] Comp Metabolic Panelon 11-15 Albumin mass conc 1.9 g/dL Low 3.9-4.9 [facility] Comment on above: Performed By: #### P T, PTT, LACT, CMP, MG1, PHOS, CBCDIF ####[place] [address] [address], [place] [phone] ALP enzyme act/vol 197 U/L High 36-108 [facility] Comment on above: Performed By: #### P T, PTT, LACT, CMP, MG1, PHOS, CBCDIF ####[address] [phone] ALT enzyme act/vol 29 U/L Normal 10-54 [facility] Comment on above: Performed By: #### P T, PTT, LACT, CMP, MG1, PHOS, CBCDIF ####[address] [phone] Anion gap 3 molar conc 15 mmol/L Normal 9-18 [facility] Comment on above: Performed By: #### P T, PTT, LACT, CMP, MG1, PHOS, CBCDIF ####[address] [phone] AST enzyme act/vol 22 U/L Normal 14-40 [facility] Comment on above: Performed By: #### P T, PTT, LACT, CMP, MG1, PHOS, CBCDIF ####[address] [phone] Bilirubin mass conc 2.2 mg/dL High 0.2-1.3 [facility] Comment on above: Performed By: #### P T, PTT, LACT, CMP, MG1, PHOS, CBCDIF ####[facility], [place] [phone] Calcium mass conc 8.2 mg/dL Low 8.5-10.2 [facility] Comment on above: Performed By: #### P T, PTT, LACT, CMP, MG1, PHOS, CBCDIF ####[address] [place] [place] [phone] Chloride molar conc 113 mmol/L High 97-105 [facility] Comment on above: Performed By: #### P T, PTT, LACT, CMP, MG1, PHOS, CBCDIF ####[address] [place] [place] [phone] CO2 molar conc 21 mmol/L Low 22-30 [facility] Comment on above: Performed By: #### P T, PTT, LACT, CMP, MG1, PHOS, CBCDIF ####[address] [place] [place] [phone] Creatinine mass conc 3.44 mg/dL High 0.73-1.22 [facility] Comment on above: Performed By: #### P T, PTT, LACT, CMP, MG1, PHOS, CBCDIF ####[place] [phone] eGFR- Amer. 22 Normal [facility] Comment on above: Performed By: #### P T, PTT, LACT, CMP, MG1, PHOS, CBCDIF ####[place] [phone] GFR/1.73 sq M predicted among non-blacks MDRD vol rate/area (S/P/Bld) 19 . Normal [facility] Comment on above: Result Comment: eGFR (Estimated GFR) Units of measure: mL/min/1.73 meters squaredeGFR is derived from the reexpressed MDRD Study equation using the following parameters: serum creatinine, age, gender and race. The creatinine assay has been calibrated to be traceable to IDAK.An eGFR <60 mL/min/1.73m2 for >3 months is consistent with chronic kidney disease. Refer to KDOQI guidelines for clinical interpretation.In patients with unstable renal function, e.g. those with acute kidney injury, the eGFR may not accurately reflect actual GFR. Performed By: #### P T, PTT, LACT, CMP, MG1, PHOS, CBCDIF ####[facility] [place], [place] [phone] Glucose mass conc 101 mg/dL High 74-99 [facility] Comment on above: Result Comment: The [place] Diabetes Association (ADA) provides guidance for cutoff values for fasting glucose and random glucose. The ADA defines fasting as no caloric intake for at least 8 hours. Fasting plasma glucose results between 100 to 125 mg/dL indicate increased risk for diabetes (prediabetes).Fasting plasma glucose results greater than or equal to 126 mg/dL meet the criteria for diagnosis of diabetes. In the absence of unequivocal hyperglycemia, results should be confirmed by repeat testing. In a patient with classic symptoms of hyperglycemia or hyperglycemic crisis, random plasma glucose results greater than or equal to 200 mg/dL meet the criteria for diagnosis of diabetes.Reference: Standards of Medical Care in Diabetes 2016, [place] Diabetes Association. Diabetes Care. 2016.39(Suppl 1). Performed By: #### P T, PTT, LACT, CMP, MG1, PHOS, CBCDIF ####[facility] [place], [place] [phone] Potassium molar conc 3.8 mmol/L Normal 3.7-5.1 [facility] Comment on above: Performed By: #### P T, PTT, LACT, CMP, MG1, PHOS, CBCDIF ####[facility] [place], [place] [phone] Protein mass conc 7.2 g/dL Normal 6.3-8.0 [facility] Comment on above: Performed By: #### P T, PTT, LACT, CMP, MG1, PHOS, CBCDIF ####[facility] [address], [place] [phone] Sodium molar conc 149 mmol/L High 136-144 [facility] Comment on above: Performed By: #### P T, PTT, LACT, CMP, MG1, PHOS, CBCDIF ####[facility] [place], [place] [phone] Urea nitrogen mass conc 60 mg/dL High 9-24 [facility] Comment on above: Performed By: #### P T, PTT, LACT, CMP, MG1, PHOS, CBCDIF ####[facility] [address] [place], [place] [phone] PROGRESSon 11-15-2017 Protein mass conc HNO ID: [id number] thor: Marni Frazier: General Internal MedicineAuthor Type: PhysicianType: Progress NotesFiled: 11/15/2017 5:17 PMNote Text:INTERNAL MEDICINE - [place] BPROGRESS NOTEWeekdays 7am to 5pm/Weekends 7am to 3pm: Please page [phone] 5pm to 7am/Weekends 3pm to 7am: Please page on-call [phone]: Hung PeckMRN: [id number] plan for the day:- Continues to be hypernatremic with Na of 149. Increase D5W to 125/hr- Follow up with derm regarding absolute eosinophilia in light of DRESSand steroid taper.- Follow up with urology for any further plan regarding the suspectedurethral obstruction. No more episodes of hematuriaInterval History of Present Illness- No acute events overnight.- HR stable around 90-110- Not complaining of any more chills as well.- ECG, lactate and BCs not positive for a septic process, responded to aliter of fluid bolus- PVR 268 yesterday but repeat was normal.- Follow up with getting outside hospital recordsInterval Review of SystemsAll ROS reviewed and are negative except as noted in HPI.Physical ExamBody mass index is 25.25 kg/m?.BP 113/50 Pulse 111 Temp 36.8 ?C (98.2 ?F) (Oral) Resp 20 Ht188 cm (6' 2) Wt 89.2 kg (196 lb 10.4 oz) SpO2 98% BMI 25.25kg/m?General: No acute distress, AANDOx3 , shiveringNeck: supple, no LAD, no JVDEyes: PERRLA, EOMILungs: clear to auscultation bilaterally, no wheezing, rhonchi or ralesHeart: RRR, normal S1 and S2, no murmurs, rubs or gallopsAbdomen: Soft, non-tender, non-distended. Bowel sounds normal. No ascites.No masses or hepatosplenomegaly.Extremiti es: Pulses intact and symmetric.Skin: +pale pink-red, flaking rash over arms, legs, hands and feet, chest,Increased swelling of LLE compared to the R. Pitting edema 2+Neuro: No focal neurological deficits. CN II-XII grossly intact. Sensationand Strength grossly intact.Intake/Output Summary (Last 24 hours) at 11/15/17 1147Last data filed at 11/15/17 1000 Gross per 24 hourIntake 3425 mlOutput 1725 mlNet 1700 mlSKIN ULCERS:Please refer to Nursing documentationLabs AND ImagingDiagnostic tests reviewed:Labs:CBC, Coags, BMP, Mg, PhosRecent Labs 11/14/1806542WBC 18.50* 17.30* -- 13.99*HB 9.3* 9.6* 9.0* 8.9*HCT 29.8* 31.4* -- 28.4*PLT 286 315 -- 316INR 1.2 1.2 -- 1.1NA 149* 150* -- 144K 3.8 3.8 -- 3.9CHLOR 113* 112* -- 107*CO2 21* 23 -- 23BUN 60* 71* -- 77*CREAT 3.44* 3.58* -- 4.13*GLUC 101* 88 -- 77CA 8.2* 8.7 -- 8.7MG -- 1.9 -- 2.0P -- 3.9 -- 4.1Current MedicationsReviewed:Current hospital medications:dextrose 5% in water iv infusion 125 mL/hr INTRAVENOUS CONTINUOUSpredniSONE (DELTASONE) tab(s) 30 mg 30 mg ORAL DAILY[START ON 11/23/2017] predniSONE 20 mg tab(s) (DELTASONE) 20 mg ORAL DAILY[START ON 12/03/2017] predniSONE 10 mg tab(s) (DELTASONE) 10 mg ORAL DAILYpantoprazole 40 mg CUP (PROTONIX) 40 mg ORAL/FEEDING TUBE DAILY (6 AM)0.9% NaCl 10 mL 10 mL INTRAVENOUS q 12 H0.9% NaCl 20 mL 20 mL INTRAVENOUS PRNAssessment AND Pyxp19raZ with past medical history of FVL (on coumadin long-term) c/b DVT/PE(', ') and R TKA recovery c/b thigh abscess s/p 4 weeks ABx (vanco,ceftriaxone, linesolid, doxy) c/b DRESS syndrome with transaminitis andoliguric DAYNA requiring CVVHD; now recovering on steroid taper, also nowproducing urine, per renal consider etiology DRESS AIN vs morelikely?hypotensive ATN (due to overall illness, acute blood loss).Recovery c/b RP bleed with supratheraputic INR (19.5) requiring manytransfusions and coumadin reversal. Now off all AC. Monitoring Hb, renalstatus.?This morning developed tachycardia with chills. Following up on sepsisworkup and ECG.?Active Hospital Problems? Diagnosis- Status post total right knee replacement? ? Assessment: Unclear hx of PJI/thigh abscess. Patient had presentedlate August with swelling and loss of mobility of joint. S/p IANDD 09/18 ofthigh fluid pocket, no revision to TKA, per patient/family original tapfrom knee was cx negative. S/p 4 weeks ABx (vanco, ceftriaxone, linezolid,doxy). CT OSH from 10/28 with reported right leg ?abscess/fluid collectionsuprapatellar space. No leukocytosis, no fevers, but + groin adenopathyseen on DVT studies. On PE, no signs erythema/swelling/pain.PLAN: ?-per patient/family, ID doctor informed them that they had completed allrequired ABx-R Knee XR UR-No ABX at this time??- Mild protein-calorie malnutrition (HCC)- Retroperitoneal bleed? ? Assessment:OSH CT A/P (11/03) with RP bleed in setting ofsupratherapeutic INR (19.5). S/p many transfusions at OSH and hereincluding PRBC, vitamin K, and FFP.PLAN:-Hb daily-IR consulted- no intervention at this time, continue medical management.-Vasc consulted - no intervention at this time, remain off ALL AC for 2-4weeks-F/u with Dr. Le (manages coumadin long-term) in 2 weeks-No evidence of ?DVT study 11/07; superficial thrombus noted LLE??- DAYNA (acute kidney injury) (HCC)? ? Assessment: Nonoliguric DAYNA/ATN secondary to hemodynamic instabilityvs DRESS syndrome. Normal SCr at baseline. Started on CVVHD on 11/06 forhyperkalemia not responding to medical management. CVVHD stopped early on11/07 due to clots in filter. Per renal, no need for CVVHD (11/10) willcontinue to monitor. Patient urinating.# Hypernatremia Na of 149PLAN:-removal of RIJ per renal, UO polyuric-Avoid Nephrotoxic agents-Renally dose meds EGFR 09-28-Nyfvvhvpal following, appreciate input.?-# Administer D5W at 125 ml/hr?- Hepatitis? ? Assessment: Likely 2/2 to DRESS. US (11/01) thickened GB wall with asmall amt of pericholecystic fluid. Mild hepatomegaly with with mild fattyinfiltration. Transaminase trending down, hyperbilirubinemia improving.Acute hep panel significant for previous B exposure, Hep C antibody +. ?USwith appropriate flow, no biliary dilation, non-specific GB wallthickening. ?PLAN:- Trend LFTs- Hepatology following, appreciate input.- Given 2 doses of Vit K, 11/06 and 11/07.?- Factor V Leiden (HCC)? ? Assessment: H/o Factor V Leiden with h/o PE/DVT on coumadin.Supratherapetic INR of 19 on presentation to OSH 10/28.PLAN:- Holding anticoagulation in setting of supratherapeutic INR and acuteblood loss anemia.- PAS and SHINE rand.- Encourage ambulation.- Updated Dr. Glez [phone], local physician who manages coumadin;apt in 2 weeks to consider restarting without bridge??- Drug induced rash with eosinophilia and systemic symptoms? ? Assessment: Suspected DRESS at OSH with fever, desquamating rash,peripheral eosinophilia, DAYNA, hepatitis in setting ofvanco/linezolid/ceftriaxon e/doxy therapy in 08/2017 for thigh abscess.Timeline most suggestive of vanc/ceftriaxone being culprit; by the timepatient started linezolid/doxy, he was already +rash, swelling.# Absolute Eosinophilia noticed on labs againPLAN:?- Supportive management- Methylprednisolone 40 mg daily ?- Taper by 10 mg q10 days per Derm recs- Derm consulted, appreciate recommendations# Follow up with derm Recs??- Anemia due to blood loss? ? Assessment: Due to RP bleed s/p many RBC, FFP transfusions.Plan:-Hb daily-Transfuse goal: Hb >7???# Lines:? ?Lines, Drains, and Airways?Line? Peripheral 11/09/17 1600 Left Arm 20 Gauge 3 days ?? Peripheral 11/09/17 1600 Right Arm 22 Gauge 3 days ??# VTE PPx: compression stockings, pneumatic devices# GI PPx: pantoprazole# Diet: Regular# Dispo: to appropriate level of care when medically stable, per PT/OTconsidder home with PT however have not seen patient since 11/09# Code Status: Full codeSIGNATURE: Bonita Pete MD PATIENT NAME: Hung AhuamdaoneDATE: November 15, 2017 : 11:47 AM PAGER/CONTACT #: [phone] recommendations are not final until staffed by attending provider.[facility] STAFF PHYSICIAN NOTE OF PERSONAL INVOLVEMENT IN CAREI have reviewed the progress note obtained and documented by the residentand I personally participated in the madrigal components. I have discussed thecase and management of the patient's care. The following comments reviseor confirm relevant madrigal components of their note.IMPRESSION: This is a 57M with h/o VTE on coumadin, factor V leidenpresents with rash, fever, facial swelling, DAYNA and hepatitis concerningfor DRESS.?Pt reports no complaints. Denies dysuria, SOB, cough, pain.?Exam:Nontoxic, sitting up in bedtachy to 100, regularLungs clearDiffuse erythroderma with some exfoliation over feet and R lateral lau,extensive scaling over faceL calf > in circumference than R calf, 2+ distal LLE edema, 1+ R distal LEedemaabd soft NT?PLAN:?# Tachycardia: improved after IVF bolus yesterday to 90-100s suggestinghypovolemia; sepsis is also possible given worsening leukocytosis but noneutrophilia and no localizing signs/symptoms of infection. Ucx neg, bl cxnegative to date.- monitor, maintain euvolemia# DRESS: absolute eos have uptrended from 180 earlier in course [id number], rise in eos most noted on 11/12; methylpred dose reduced on11/13. Unclear rise in eos - ? Inadequate steroids. Still with erythrodermaon exam. Leukocytosis also worsening from normal range up to 18 today.- derm recs appreciated- trend CBC with diff- will review OSH records to try to determine culprit ABX for DRESS# RP bleed: in setting of supratherapeutic INR at OSH, s/p 7u pRBCs in ICU- hold coumadin for 3-4 weeks per , trend H/H?# DAYNA: required CRRT 11/06-11/07, now with good UOP and improvement in labs,likely ischemic ATN 2/2 hypotension- f/u labs and IANDOs# Hypernatremia: from post-ATN diuresis, increase and continue D5W,encourage PO intake, trend lytes# Hepatitis: likely 2/2 DRESS, LFTs improving, trend LFTs# Hematuria: seen by uro, resolved?Dispo?- home with C pending above, possibly 1-2 more daysSIGNATURE: Marni Roth, MAXAGER: [phone] of SERVICE: 11/15/2017TIME of SERVICE: 4:24 PM Normal [facility] Protimeon 11-15-2017 INR Coag RelTime (Bld) 1.2 {INR} Normal 0.9-1.3 [facility] Comment on above: Result Comment: Nini min K Antagonist (VKA) Therapeutic Range: INR 2 to 3 (Target INR of 2.5)Note: For patients treated with VKA drugs, such as warfarin, the [place] [employer] 2012 Guideline recommends a therapeutic INR range of 2 to 3 (target INR of 2.5). This recommendation includes high-risk patients with antiphospholipid syndrome with previous arterial or venous thromboembolism, current-generation mechanical or bioprosthetic aortic heart valve replacement.Note: Patients with mechanical aortic valve replacement and additional risk factors for thromboembolic events (atrial fibrillation, previous thromboembolism, LV dysfunction, hypercoagulable conditions) or an older generation mechanical AVR (i.e., ball in-Cage) or any mechanical MVR should have a INR therapeutic range of 2.5 to 3.5 (target INR of 3).Raghav GH, et al. Chest 2012, 141:7S-47SNishimura RA, et al. [facility] 2017, 70: 252-289 Performed By: #### P T, PTT, LACT, CMP, MG1, PHOS, CBCDIF ####[facility] [place], [place] [phone] PT Sec 12.7 sec Normal 9.7-13.0 [facility] Comment on above: Performed By: #### P T, PTT, LACT, CMP, MG1, PHOS, CBCDIF ####[facility] [place], [place] [phone] THERAPY NTon 11-15-2017 THERAPY NT HNO ID: [id number] thor: Chaparro (Pt) EberhardtService: Physical TherapyAuthor Type: Physical TherapistType: Therapy (PT/OT/Speech/Resp)Filed: 11/15/2017 3:53 PMNote Text:Physical Therapy TreatmentSERVICE DATE: 11/15/2017SERVICE TIME: 1355 to 1425ROOM: [id number] Discharge Disposition: Home PTAnticipated Discharge Needs: UndeterminedPT Recommendations to Nursing: Ambulate with device;To bathroom;Inhalls;Transfer to/from chair;OOB for Meals;With assist of 1 personDevice: Wheeled WalkerPT 6 Clicks Score: 21Precautions/Activity Restrictions: Fall RiskIsolation Type: NoneASSESSMENT :Pt demonstrated improved mobility performance this date with increaseddistance using FWW and decreased assist required. Pt declined stairnegotiation this date reporting he does not feel quite up to that yet.Pt completed seated strengthening exercises and educated on continuing HEPduring hospital stay. From a PT perspective anticipate for d/c Home PT aspt demonstrates adequate safety awareness and mobility to return home atthis time, with support available and will continue to benefit fromskilled PT intervention. Emphasis on continued skilled mobility trainingand functional capacity improvement during acute hospital stay. Ptrequires further skilled PT intervention for appropriate activity andexercise dosing and safe progression with all mobilization to improveoverall functional capacity and allow for a safe d/c.Patient Disposition at Start of Session: Other: See Comment (sitting EOB Llateral lean into HOB)Patient Disposition at End of Session: OOB in Chair;Call Price in ReachTolerated Full SessionPhysical Therapy Problem List: Decreased Activity Tolerance;DecreasedStrength; Functional Mobility Impairment;Balance Impaired;Cognitive DeficitPatient /Caregiver Goals: Go HomeGoals for Plan of Care:Rolling with: Modified IndependentTransfer supine to/from sit with: Modified IndependentTransfer sit to/from stand with: Modified IndependentAmbulate with: Modified IndependentDistance: 400Device: Wheeled WalkerProgress Toward Goals: Progressing as expectedRehab Potential: ExcellentPLAN:Treatment Frequency (times per week): 3 Current admissionTreatment Interventions: Education;Energy ConservationTraining;Strengt hening;Functional Mobility Training;Balance TrainingPlan of Care developed with: PatientTREATMENT INTERVENTIONS:Therapy Diagnosis: Reduced mobility-otherInterventions Provided: Gait Training (68019);Therapeutic Exercise (63751)Therapeutic Exercise (70577) Treatment Minutes: 101 unitSkilled Intervention(s):Instruction in performance and dosing of therapeutic exercises listedbelow.Verbal and tactile cuing provided for optimal performance, efficiency, andeccentric control.Facilitation of muscle control, optimal recruitment and alignment ofjoints during exercises listed below.Education in performing these exercises 1-2x/day and benefits of doing isidro improve strength, blood flow, and overall functional mobility andcapacity.Pt performed the following exercises listed below with verbal and tactilecuing PRN for performance and maximal strengthening benefits:-seated LAQ with 5 sec hold, 15x ea-seated hip flex marches, 15x ea-seated heel/toe raises, 20x-seated hip ADD squeezes with pillow, 15xGait Training (63164) Treatment Minutes: 151 unitSkilled Intervention(s):Pt performed 2 bout(s) of ambulation of 200' and 300' with FWW,appropriate level of hands on assist, verbal cueing, and facilitationdescribed below. Pt completed with seated rest break between bouts withoutany onset of adverse physiologic symptoms during bout(s). PT provided VCthroughout bout(s) as needed to improve and promote upright posture, FWWmanagement, increase step length and joyce, improve heel strike, and forassessment of any pt self-reported physiologic symptoms. Pt demonstratedfair carryover with this. Pt demonstrated increased steadiness as boutprogressed. Pt was educated on performance.Pt completed sit > stand transfer to FWW with appropriate level of handson assist and verbal cues described below and was instructed in safe handplacement pushing from stable surface to FWW device, having feet flat onthe floor and scooted back, trunk scooted forward on stable surface, andto lean forward for successful nose over toes technique to improvetransfer efficiency. Pt initially required min A and CGA with followingtransfer.Pt completed stand > sit transfer with appropriate level of hands onassist and verbal cues described below and was instructed in safe handplacement from FWW and to reach back to arm chair and for pt to feel theback of chair with both legs prior to descent into seated position safely.PT educated pt on safe and efficient ambulation with FWW and PT providedAD demonstration, recommendation, fitting of AD, and education to promotemaximal independence, safety, decreased pain, and most efficientfunctional mobility and ambulation speed. Pt receptive to using FWW.Total Timed Code Treatment Minutes: 25Total Treatment Time (minutes): 30FUNCTIONAL G CODE:PT 6 Clicks Score: 21 (11/15/17 1355)Mobility: Walking and Moving Around Current Status (G8978): CJ ()Mobility: Walking and Moving Around Goal Status (G8979): CI ()Based on clinical assessment and the score on the 6 Clicks FunctionalAssessment Tool, the G code and corresponding severity modifiers aredocumented above.SUBJECTIVE:Current Hospital Course: Chart reviewed and no significant medical updatesrelevant to therapy were notedPatient Report: I don't think I feel quite up to that yet. (re:negotiating stairs)Home EnvironmentPatient Lives With: Significant OtherAssistance Available: 24 HourEntry To Home: StairsNumber Of Stairs Into Home: 2Prior Functional Level: Within Functional Limits (recently using a walkerafter last admit)OBJECTIVE:CURRENT FUNCTIONAL STATUS:Current Functional Mobility Assist Level Additional InformationRolling Contact Guard AssistanceSupine to Sit Contact Guard AssistanceSit to Supine Contact Guard AssistanceScooting Modified IndependentSit to Stand Contact Guard Assistance (min A initially)Stand to Sit Stand By AssistanceBed to Chair Contact Guard Assistance Bed To Chair Transfer Type: StandPivotBed To Chair Transfer Equipment: Gait BeltToilet/CommodeGait Stand By Assistance Gait Device: Wheeled Walker Gait Distance (feet): 200', 300'Stairs (NT. Pt declined this date)Curb StepCar Transfer*BLANK MON INDICATE ACTIVITY NOT ATTEMPTED EITHER D/T SAFETY CONCERNS,COMPLIANCE OR NOT INDICATED D/T PATIENT'S PERFORMANCE AND MEDICAL STATUS.General Gait Deviations: Joyce decreased;Step length decreased;Flexedtrunk postureBalance: Static Sitting;Dynamic Sitting;Static Standing;Dynamic StandingStatic Sitting Balance: Modified IndependentDynamic Sitting Balance: Modified IndependentStatic Standing Balance: SupervisionDynamic Standing Balance: Contact Guard AssistancePlease see discipline specific clinical documentation flowsheet forcomplete details for this therapy evaluation/treatment.SIGNATU RE: Chaparro Galeana, PT PATIENT NAME: Hung TamkroneDATE: November 15, 2017 : 3:44 PM [address] [facility] HEALTH 11-14-2017 ALLIED HEALTH HNO ID: [id number] thor: Eliane (Rn) JESSI Ruvalcabaervice: Healing ServiceAuthor Type: Registered NurseType: Allied HealthFiled: 11/14/2017 2:23 PMNote Text:HEALING SERVICESTHERAPY NOTESERVICE DATE: 11/14/2017SERVICE TIME: 12:35 PMINTERVENTIONAL FOCUS: Self-directed Care / Patient ExperienceVisit With: Patient Urgency of Visit: Routine Type of Visit:Patient Not AvailableHS visit attempted. Pt sleeping soundly in bed; no family member present.Left written HS information at the bedside along with contact number if ptis interested. Will return upon request.SIGNATURE: Eliane Ruvalcaba RN PATIENT NAME: Hung Figueroa: November 14, 2017 : 2:22 PM PAGER/CONTACT #: [phone] Normal [facility] Blood Cultureon 11-14-2017 Bacteria identified Cx Nom (Bld) Culture Result - No growth 5 days Normal [facility] Comment on above: Performed By: #### P T, PTT, LACT, CMP, MG1, PHOS, CBCDIF ####[facility] [address] [place], [place] [phone] Bacteria identified Cx Nom (Bld) Culture Result - No growth 5 days Normal [facility] Comment on above: Performed By: #### P T, PTT, LACT, CMP, MG1, PHOS, CBCDIF ####[facility] [place], [place] [phone] CASE MANAGEMon 11-14-2017 CASE MANAGEM HNO ID: [id number] thor: Brittney Everett (Rn) JESSI Buchananervice: Care ManagementAuthor Type: Registered NurseType: Care Mgt Progress NoteFiled: 11/14/2017 12:52 PMNote Text:CARE MANAGEMENT PROGRESS NOTESERVICE DATE: 11/14/2017SERVICE TIME: 12:52 PM LOS: 11 daysNeeds Prior to Discharge: Ready for Discharge Dc date TBD.Skilled for Home PT. referral accepted by [facility].F2F on referral. CM to continue to followSIGNATURE: Brittney Buchanan RN PATIENT NAME: Hung CervantesATE: November 14, 2017 : 12:52 PM PAGER/CONTACT #: [phone] Normal [facility] CBC and Differentialon 11-14 Abs Baso 0.05 k/uL Normal <0.11 [facility] Comment on above: Performed By: #### P T, PTT, LACT, CMP, MG1, PHOS, CBCDIF ####[facility] [address] [place], [place] [phone] Abs Haskell 0.85 k/uL Normal <0.87 [facility] Comment on above: Performed By: #### P T, PTT, LACT, CMP, MG1, PHOS, CBCDIF ####[address] [place], [place] [phone] Abs Neut 12.35 k/uL High 1.45-7.50 [facility] Comment on above: Performed By: #### P T, PTT, LACT, CMP, MG1, PHOS, CBCDIF ####[place] [phone] Absolute nRBC <0.01 Normal <0.01 [facility] Comment on above: Performed By: #### P T, PTT, LACT, CMP, MG1, PHOS, CBCDIF ####[place] [phone] Basophils/100 WBC Auto (Bld) 0.3 % Normal [facility] Comment on above: Performed By: #### P T, PTT, LACT, CMP, MG1, PHOS, CBCDIF ####[place] [phone] DTYPE Auto Diff Normal [facility] Comment on above: Performed By: #### P T, PTT, LACT, CMP, MG1, PHOS, CBCDIF ####[place] [phone] Eosinophils Auto #/vol (Bld) 3.01 10*3/uL High <0.46 [facility] Comment on above: Performed By: #### P T, PTT, LACT, CMP, MG1, PHOS, CBCDIF ####[address] [place] [phone] Eosinophils/100 WBC Auto (Bld) 17.4 % Normal [facility] Comment on above: Performed By: #### P T, PTT, LACT, CMP, MG1, PHOS, CBCDIF ####[address] [place] [phone] Erythrocyte distribution width Auto Ratio (RBC) 19.9 % High 11.5-15.0 [facility] Comment on above: Performed By: #### P T, PTT, LACT, CMP, MG1, PHOS, CBCDIF ####[place] [phone] Hematocrit Auto Volume Fraction (Bld) 31.4 % Low 39.0-51.0 [facility] Comment on above: Performed By: #### P T, PTT, LACT, CMP, MG1, PHOS, CBCDIF ####[place] [phone] Hemoglobin mass conc (Bld) 9.6 g/dL Low 13.0-17.0 [facility] Comment on above: Performed By: #### P T, PTT, LACT, CMP, MG1, PHOS, CBCDIF ####[place] [phone] Lymphocytes Auto #/vol (Bld) 1.04 10*3/uL Normal 1.00-4.00 [facility] Comment on above: Performed By: #### P T, PTT, LACT, CMP, MG1, PHOS, CBCDIF ####[place] [phone] Lymphocytes/100 WBC Auto (Bld) 6.0 % Normal [facility] Comment on above: Performed By: #### P T, PTT, LACT, CMP, MG1, PHOS, CBCDIF ####[address] [place] [phone] MCH Auto Entitic mass (RBC) 30.3 pG Normal 26.0-34.0 [facility] Comment on above: Performed By: #### P T, PTT, LACT, CMP, MG1, PHOS, CBCDIF ####[address] [place], [place] [phone] MCHC Auto mass conc (RBC) 30.6 g/dL Normal 30.5-36.0 [facility] Comment on above: Performed By: #### P T, PTT, LACT, CMP, MG1, PHOS, CBCDIF ####[address] [place] [place] [phone] MCV Auto Entitic volume (RBC) 99.1 fL Normal 80.0-100.0 [facility] Comment on above: Performed By: #### P T, PTT, LACT, CMP, MG1, PHOS, CBCDIF ####[place] [phone] Monocytes/100 WBC Auto (Bld) 4.9 % Normal [facility] Comment on above: Performed By: #### P T, PTT, LACT, CMP, MG1, PHOS, CBCDIF ####[place] [phone] Neutrophils/100 WBC Auto (Bld) 71.4 % Normal [facility] Comment on above: Result Comment: Diff erential confirmed by visual scan of peripheral blood smear slide. Performed By: #### P T, PTT, LACT, CMP, MG1, PHOS, CBCDIF ####[place] [phone] NRBCs 0.0 /100 WBC Normal 0 [facility] Comment on above: Performed By: #### P T, PTT, LACT, CMP, MG1, PHOS, CBCDIF ####[address] [place] [phone] Platelet mean volume Auto Entitic volume (Bld) 11.0 fL Normal 9.0-12.7 [facility] Comment on above: Performed By: #### P T, PTT, LACT, CMP, MG1, PHOS, CBCDIF ####[facility] [place], [place] [phone] Platelets Auto #/vol (Bld) 315 10*3/uL Normal 150-400 [facility] Comment on above: Performed By: #### P T, PTT, LACT, CMP, MG1, PHOS, CBCDIF ####[address] [phone] RBC Auto #/vol (Bld) 3.17 10*6/uL Low 4.20-6.00 Cl [facility] Comment on above: Performed By: #### P T, PTT, LACT, CMP, MG1, PHOS, CBCDIF ####[address] [phone] WBC Auto #/vol (Bld) 17.30 10*3/uL High 3.70-11.00 C [facility] Comment on above: Performed By: #### P T, PTT, LACT, CMP, MG1, PHOS, CBCDIF ####[address] [phone] Comp Metabolic Panelon 11-14 Albumin mass conc 2.3 g/dL Low 3.9-4.9 [facility] Comment on above: Performed By: #### P T, PTT, LACT, CMP, MG1, PHOS, CBCDIF ####[address] [phone] ALP enzyme act/vol 241 U/L High 36-108 [facility] Comment on above: Performed By: #### P T, PTT, LACT, CMP, MG1, PHOS, CBCDIF ####[place] [address] [place], [place] [phone] ALT enzyme act/vol 37 U/L Normal 10-54 [facility] Comment on above: Performed By: #### P T, PTT, LACT, CMP, MG1, PHOS, CBCDIF ####[place] [address], [place] [phone] Anion gap 3 molar conc 15 mmol/L Normal 9-18 [facility] Comment on above: Performed By: #### P T, PTT, LACT, CMP, MG1, PHOS, CBCDIF ####[address] [place] [phone] AST enzyme act/vol 25 U/L Normal 14-40 [facility] Comment on above: Performed By: #### P T, PTT, LACT, CMP, MG1, PHOS, CBCDIF ####[place] [phone] Bilirubin mass conc 2.5 mg/dL High 0.2-1.3 [facility] Comment on above: Performed By: #### P T, PTT, LACT, CMP, MG1, PHOS, CBCDIF ####[place] [phone] Calcium mass conc 8.7 mg/dL Normal 8.5-10.2 [facility] Comment on above: Performed By: #### P T, PTT, LACT, CMP, MG1, PHOS, CBCDIF ####[address] [phone] Chloride molar conc 112 mmol/L High 97-105 [facility] Comment on above: Performed By: #### P T, PTT, LACT, CMP, MG1, PHOS, CBCDIF ####[place] [phone] CO2 molar conc 23 mmol/L Normal 22-30 [facility] Comment on above: Performed By: #### P T, PTT, LACT, CMP, MG1, PHOS, CBCDIF ####[address] [place] [phone] Creatinine mass conc 3.58 mg/dL High 0.73-1.22 [facility] Comment on above: Performed By: #### P T, PTT, LACT, CMP, MG1, PHOS, CBCDIF ####[facility] [address] [place], [place] [phone] eGFR- Amer. 21 Normal [facility] Comment on above: Performed By: #### P T, PTT, LACT, CMP, MG1, PHOS, CBCDIF ####[facility] [address] [place], [place] [phone] GFR/1.73 sq M predicted among non-blacks MDRD vol rate/area (S/P/Bld) 18 . Normal [facility] Comment on above: Result Comment: eGFR (Estimated GFR) Units of measure: mL/min/1.73 meters squaredeGFR is derived from the reexpressed MDRD Study equation using the following parameters: serum creatinine, age, gender and race. The creatinine assay has been calibrated to be traceable to IDMS.An eGFR <60 mL/min/1.73m2 for >3 months is consistent with chronic kidney disease. Refer to KDOQI guidelines for clinical interpretation.In patients with unstable renal function, e.g. those with acute kidney injury, the eGFR may not accurately reflect actual GFR. Performed By: #### P T, PTT, LACT, CMP, MG1, PHOS, CBCDIF ####[facility] [address] [place], [place] [phone] Glucose mass conc 88 mg/dL Normal 74-99 [facility] Comment on above: Result Comment: The [place] Diabetes Association (ADA) provides guidance for cutoff values for fasting glucose and random glucose. The ADA defines fasting as no caloric intake for at least 8 hours. Fasting plasma glucose results between 100 to 125 mg/dL indicate increased risk for diabetes (prediabetes).Fasting plasma glucose results greater than or equal to 126 mg/dL meet the criteria for diagnosis of diabetes. In the absence of unequivocal hyperglycemia, results should be confirmed by repeat testing. In a patient with classic symptoms of hyperglycemia or hyperglycemic crisis, random plasma glucose results greater than or equal to 200 mg/dL meet the criteria for diagnosis of diabetes.Reference: Standards of Medical Care in Diabetes 2016, [place] Diabetes Association. Diabetes Care. 2016.39(Suppl 1). Performed By: #### P T, PTT, LACT, CMP, MG1, PHOS, CBCDIF ####[address] [phone] Potassium molar conc 3.8 mmol/L Normal 3.7-5.1 [facility] Comment on above: Performed By: #### P T, PTT, LACT, CMP, MG1, PHOS, CBCDIF ####[address] [phone] Protein mass conc 7.6 g/dL Normal 6.3-8.0 [facility] Comment on above: Performed By: #### P T, PTT, LACT, CMP, MG1, PHOS, CBCDIF ####[address] [phone] Sodium molar conc 150 mmol/L High 136-144 [facility] Comment on above: Performed By: #### P T, PTT, LACT, CMP, MG1, PHOS, CBCDIF ####[place] [address] [place], [place] [phone] Urea nitrogen mass conc 71 mg/dL High 9-24 [facility] Comment on above: Performed By: #### P T, PTT, LACT, CMP, MG1, PHOS, CBCDIF ####[address] [phone] ECG COMPLETE W INTERPRETATIO Non 11-14-2017 Protein mass conc NAME : FAUSTINA PECK : [id number] : 1960 Gender : MaleRace : CaucasianORD : [id number] Procedure Date : Nov 14 2017 13:07:35Edit Date : Nov 16 2017 11:06:14 Diagnosis:SINUS TACHYCARDIAST & ANTERIOR T WAVE ABNORMALITYABNORMAL ECGConfirmed by ZACHARY ARAUJO M.D. ([id number]) on 11/16/2017 10:59:18 AM Ventricular Rate : 114 BPMAtrial Rate : 114 BPMP-R Interval : 144 msQRS Duration : 76 msQ-T Interval : 324 msQTC Calculation(Bezet) : 446 msP [place] : 51 degreesR [place] : -11 degreesT [place] : 56 degrees Test Reason : Location : : [place] [address] Overread By : GAYLE Jones,RORYEdited By : GAYLE Jones,RORYReferred By : ,Acquired by : JOANNE ROMANO Normal [facility] Magnesiumon 11-14-2017 Magnesium mass conc 1.9 mg/dL Normal 1.7-2.3 [facility] Comment on above: Performed By: #### P T, PTT, LACT, CMP, MG1, PHOS, CBCDIF ####[facility] [address] [place], [place] [phone] NURSING PROGon 11-14-2017 Protein mass conc HNO ID: [id number] thor: Britton (Rn) JESSI Mcclendonervice: NursingAuthor Type: Registered NurseType: Nursing Progress NoteFiled: 11/14/2017 8:16 PMNote Text: Nursing Progress NotePatient Name: Hung AhumadaoneMRN: [id number] [address]: [address] Daily Note:No episodes of hematuria this shift. Sepsis alert popped up. Sepsislactate and BC x2 drawn and sent to lab. Sepsis lactate came back at 2.0.1L LR bolus given. Patient is hypernatremic so D5W was started as acontinuous infusion and oral intake of water was encouraged. BLE UScompleted. PVR completed in evening and Otilio nights notified of theresults.This note was completed by: Britton Mcclendon RN Normal [facility] PLAN OF CAREon 11-14-2017 PLAN OF CARE HNO ID: [id number] thor: Mae Musa (Fel)ervice: NephrologyAuthor Type: FellowType: Plan of CareFiled: 11/14/2017 8:47 AMNote Text:Brief Nephrology Note:Chart reviewed. Non oliguric , cr downtrendingHypernatremiaFre e water deficit 3.8LEncourage free water fyxorlJ7W at 100ml/hr for 24 hoursMae Foster MDNephrology FellowPager [phone] Normal [facility] PLAN OF CARE HNO ID: [id number] thor: Marni Augusteice: General Internal MedicineAuthor Type: ResidentType: Plan of CareFiled: 11/14/2017 7:02 AMNote Text:?Primary service: Otilio Kat??Weekdays 7am to 5pm/Weekends 7am to 3pm:First call: Bonita Pete MD, PGY-I, [phone] call: Marni Noble MD, PGY-III, [phone]??Weekdays 5pm to 7am/Weekends 3pm to 7am:Please page on-call Night Team [place]ager [place] [phone] Noble, MDPGY-III Internal MedicineConneaut, [place] [address]Phone: Pager: [phone] 2017; 7:02 AM Normal [facility] PROGRESSon 11-14-2017 Protein mass conc HNO ID: [id number] thor: Marni Frazier: General Internal MedicineAuthor Type: PhysicianType: Progress NotesFiled: 11/14/2017 6:53 PMNote Text:INTERNAL MEDICINE - Otilio BPROGRESS NOTEWeekdays 7am to 5pm/Weekends 7am to 3pm: Please page [phone] 5pm to 7am/Weekends 3pm to 7am: Please page on-call [phone]: Hung PeckMRN: [id number] plan for the day:- No acute event overnight,- This morning complaining of fever (100 F Tmax) chills and feeling cold,pulse was in 120s, HR was regular.- Getting an ECG, lactate and blood cultures.- Talk to urology regarding any continued indication for Ceftriaxone.- Follow up with PVR to monitor for obstruction.- Start on D5W at 100 ml per hour in light of hypernatremia- Follow up on renal US- Follow up with Derm about recs regarding steroid taper.Diet: Renal DietGI prophylaxis: Protonix 40 mgDispo: Home PT/OTCode status: Full code by defaultInterval Review of SystemsAll ROS reviewed and are negative except as noted in HPI.Physical ExamBody mass index is 25.25 kg/m?.BP 123/72 Pulse (!) 123 Temp 36.9 ?C (98.4 ?F) (Oral) Resp 18 Ht 188 cm (6' 2) Wt 89.2 kg (196 lb 10.4 oz) SpO2 95% BMI 25.25kg/m?Intake/Output Summary (Last 24 hours) at 11/14/17 1334Last data filed at 11/14/17 0916 Gross per 24 hourIntake 350 mlOutput 2000 mlNet -1650 mlGeneral: No acute distress, AANDOx3 , shiveringNeck: supple, no LAD, no JVDEyes: PERRLA, EOMILungs: clear to auscultation bilaterally, no wheezing, rhonchi or ralesHeart: RRR, normal S1 and S2, no murmurs, rubs or gallopsAbdomen: Soft, non-tender, non-distended. Bowel sounds normal. No ascites.No masses or hepatosplenomegaly.Extremiti es: Pulses intact and symmetric.Skin: +pale pink-red, flaking rash over arms, legs, hands and feet, chest,Increased swelling of LLE compared to the R. Pitting edema 2+Neuro: No focal neurological deficits. CN II-XII grossly intact. Sensationand Strength grossly intact.SKIN ULCERS:Please refer to Nursing documentationLabs AND ImagingDiagnostic tests reviewed:Labs:CBC, Coags, BMP, Mg, PhosRecent Labs 11/13/1812720WBC 17.30* -- 13.99* 14.18*HB 9.6* 9.0* 8.9* 8.3*HCT 31.4* -- 28.4* 26.1*PLT 315 -- 316 284INR 1.2 -- 1.1 1.2NA 150* -- 144 141K 3.8 -- 3.9 3.9CHLOR 112* -- 107* 105CO2 23 -- 23 22BUN 71* -- 77* 84*CREAT 3.58* -- 4.13* 4.83*GLUC 88 -- 77 82CA 8.7 -- 8.7 8.4*MG 1.9 -- 2.0 2.0P 3.9 -- 4.1 4.8Current MedicationsReviewed:Current hospital medications:dextrose 5% in water iv infusion 100 mL/hr INTRAVENOUS CONTINUOUSmethylPREDNISolone 32 mg tab(s) (MEDROL) 32 mg ORAL DAILY[START ON 11/23/2017] methylPREDNISolone (MEDROL) tab(s) 24 mg 24 mg ORALDAILY[START ON 12/03/2017] methylPREDNISolone (MEDROL) tab(s) 12 mg 12 mg ORALDAILYpantoprazole 40 mg CUP (PROTONIX) 40 mg ORAL/FEEDING TUBE DAILY (6 AM)0.9% NaCl 10 mL 10 mL INTRAVENOUS q 12 H0.9% NaCl 20 mL 20 mL INTRAVENOUS PRNAssessment AND [id number] with past medical history of FVL (on coumadin long-term) c/b DVT/PE('05, '06) and R TKA recovery c/b thigh abscess s/p 4 weeks ABx (vanco,ceftriaxone, linesolid, doxy) c/b DRESS syndrome with transaminitis andoliguric DAYNA requiring CVVHD; now recovering on steroid taper, also nowproducing urine, per renal consider etiology DRESS AIN vs more likelyhypotensive ATN (due to overall illness, acute blood loss). Recovery c/bRP bleed with supratheraputic INR (19.5) requiring many transfusions andcoumadin reversal. Now off all AC. Monitoring Hb, renal status.This morning developed tachycardia with chills. Following up on sepsisworkup and ECG.?Active Hospital Problems? Diagnosis- Status post total right knee replacement? ? Assessment: Unclear hx of PJI/thigh abscess. Patient had presentedlate August with swelling and loss of mobility of joint. S/p IANDD 09/18 ofthigh fluid pocket, no revision to TKA, per patient/family original tapfrom knee was cx negative. S/p 4 weeks ABx (vanco, ceftriaxone, linezolid,doxy). CT OSH from 10/28 with reported right leg ?abscess/fluid collectionsuprapatellar space. No leukocytosis, no fevers, but + groin adenopathyseen on DVT studies. On PE, no signs erythema/swelling/pain.PLAN: ?-per patient/family, ID doctor informed them that they had completed allrequired ABx-R Knee XR UR-No ABX at this time??- Mild protein-calorie malnutrition (HCC)- Retroperitoneal bleed? ? Assessment:OSH CT A/P (11/03) with RP bleed in setting ofsupratherapeutic INR (19.5). S/p many transfusions at OSH and hereincluding PRBC, vitamin K, and FFP.PLAN:-Hb daily-IR consulted- no intervention at this time, continue medical management.-Vasc consulted - no intervention at this time, remain off ALL AC for 2-4weeks-F/u with Dr. Le (manages coumadin long-term) in 2 weeks-No evidence of DVT study 11/07; superficial thrombus noted LLE??- DAYNA (acute kidney injury) (HCC)? ? Assessment: Nonoliguric DAYNA/ATN secondary to hemodynamic instabilityvs DRESS syndrome. Normal SCr at baseline. Started on CVVHD on 11/06 forhyperkalemia not responding to medical management. CVVHD stopped early on11/07 due to clots in filter. Per renal, no need for CVVHD (11/10) willcontinue to monitor. Patient urinating.PLAN:-removal of RIJ per renal, UO polyuric-Avoid Nephrotoxic agents-Renally dose meds EGFR 99-56-Xfpmedxmus following, appreciate input.??- Hepatitis? ? Assessment: Likely 2/2 to DRESS. US (11/01) thickened GB wall with asmall amt of pericholecystic fluid. Mild hepatomegaly with with mild fattyinfiltration. Transaminase trending down, hyperbilirubinemia improving.Acute hep panel significant for previous B exposure, Hep C antibody +. ?USwith appropriate flow, no biliary dilation, non-specific GB wallthickening. ?PLAN:- Trend LFTs- Hepatology following, appreciate input.- Given 2 doses of Vit K, 11/06 and 11/07.?- Factor V Leiden (HCC)? ? Assessment: H/o Factor V Leiden with h/o PE/DVT on coumadin.Supratherapetic INR of 19 on presentation to OSH 10/28.PLAN:- Holding anticoagulation in setting of supratherapeutic INR and acuteblood loss anemia.- PAS and SHINE rand.- Encourage ambulation.- Updated Dr. Glez [phone], local physician who manages coumadin;apt in 2 weeks to consider restarting without bridge??- Drug induced rash with eosinophilia and systemic symptoms? ? Assessment: Suspected DRESS at OSH with fever, desquamating rash,peripheral eosinophilia, DAYNA, hepatitis in setting ofvanco/linezolid/ceftriaxon e/doxy therapy in 08/2017 for thigh abscess.Timeline most suggestive of vanc/ceftriaxone being culprit; by the timepatient started linezolid/doxy, he was already +rash, swelling.PLAN:?- Supportive management- Methylprednisolone 40 mg daily ?- Taper by 10 mg q10 days per Derm recs- Derm consulted, appreciate recommendations- Has f/u appointment with Derm 11/29??- Anemia due to blood loss? ? Assessment: Due to RP bleed s/p many RBC, FFP transfusions.Plan:-Hb daily-Transfuse goal: Hb >7???# Lines:Lines, Drains, and Airways?Line?? Peripheral 11/09/17 1600 Left Arm 20 Gauge 3 days? Peripheral 11/09/17 1600 Right Arm 22 Gauge 3 days?# VTE PPx: compression stockings, pneumatic devices# GI PPx: pantoprazole# Diet: Regular# Dispo: to appropriate level of care when medically stable, per PT/OTconsidder home with PT however have not seen patient since 11/09# Code Status: Full code?SIGNATURE: Bonita Pete MD PATIENT NAME: Hung AhumadaoneDATE: November 14, 2017 : 1:34 PM PAGER/CONTACT #: [phone] recommendations are not final until staffed by attending provider.[facility] STAFF PHYSICIAN NOTE OF PERSONAL INVOLVEMENT IN CARE?I have reviewed the progress note?obtained and documented by theresident?and I personally participated in the madrigal components. I havediscussed the case and management of the patient's care. The followingcomments revise or confirm relevant madrigal components of their note.?IMPRESSION:?This is a 57M with h/o VTE on coumadin, factor V leidenpresents with rash, fever, facial swelling, DAYNA and hepatitis concerningfor DRESS.?Pt reports no complaints. Denies dysuria. Reports hematuria resolved.Denies SOB, cough, chills. Reports feeling unchanged and rash improvedfrom prior??Exam:Nontoxic, sitting up in bedtachy to 120, regularLungs clearErythematous rash diffusely, scaling and some exfoliation over feetbilaterally, R lateral shinL calf > in circumference than R calf, 2+ distal LLE edema, no significantRLE edemaabd soft NT?PLAN:?# Tachycardia: etiology unclear, DDx includes PE, sepsis, hypovolemia,DRESS. Temp to 100. No localizing symptoms of infection. WBC uptrending.- U/S without acute LLE DVT (given asymmetric calves)?# RP bleed: in setting of supratherapeutic INR at OSH, s/p 7u pRBCs in ICU- hold coumadin for 3-4 weeks per - trend H/H?# DAYNA: required CRRT 11/06-11/07, now with good UOP and improvement in labs,likely ischemic ATN 2/2 hypotension- f/u labs and IANDOs# Hypernatremia: from post-ATN diuresis, D5W, encourage PO intake# Hepatitis: likely 2/2 DRESS, LFTs improving, trend LFTs# DRESS:?steroid taper per derm, derm f/u, allergies updated, get OSH totry to better clarify most likely culprit ABX# Hematuria: seen by uro, stop CTX as no dysuria and ucx not suggestive ofUTI?Dispo?- home with [facility] pending above??SIGNATURE: Marni Roth, MDPAGER: [phone] of SERVICE: 11/14/2017TIME of SERVICE: 3:33 PM Normal [facility] Phosphoruson 11-14-2017 Phosphate mass conc 3.9 mg/dL Normal 2.7-4.8 [facility] Comment on above: Performed By: #### P T, PTT, LACT, CMP, MG1, PHOS, CBCDIF ####[facility] [place], [place] [phone] Protimeon 11-14-2017 INR Coag RelTime (Bld) 1.2 {INR} Normal 0.9-1.3 [facility] Comment on above: Result Comment: Nini min K Antagonist (VKA) Therapeutic Range: INR 2 to 3 (Target INR of 2.5)Note: For patients treated with VKA drugs, such as warfarin, the [employer] 2012 Guideline recommends a therapeutic INR range of 2 to 3 (target INR of 2.5). This recommendation includes high-risk patients with antiphospholipid syndrome with previous arterial or venous thromboembolism, current-generation mechanical or bioprosthetic aortic heart valve replacement.Note: Patients with mechanical aortic valve replacement and additional risk factors for thromboembolic events (atrial fibrillation, previous thromboembolism, LV dysfunction, hypercoagulable conditions) or an older generation mechanical AVR (i.e., ball in-Cage) or any mechanical MVR should have a INR therapeutic range of 2.5 to 3.5 (target INR of 3).Raghav GH, et al. Chest 2012, 141:7S-47SNishimura RA, et al. [facility] 2017, 70: 252-289 Performed By: #### P T, PTT, LACT, CMP, MG1, PHOS, CBCDIF ####[facility] [address], [place] [phone] PT Sec 12.2 sec Normal 9.7-13.0 [facility] Comment on above: Performed By: #### P T, PTT, LACT, CMP, MG1, PHOS, CBCDIF ####[facility] [address], [place] [phone] Sepsis Lactateon 11-14-2017 Blood Gas Comm, Jovani Urgent value Normal [facility] Comment on above: Result Comment: SLAC T Performed By: #### P T, PTT, LACT, CMP, MG1, PHOS, CBCDIF ####[facility] [address] [place], [place] [phone] Notified Whom, Jovani Called to and read back by [facility] Comment on above: Result Comment: MICHELLE CHRISTIANSON Performed By: #### P T, PTT, LACT, CMP, MG1, PHOS, CBCDIF ####[place] [address] [place], [place] [phone] Notify Date, Jovani [id number] [facility] Comment on above: Performed By: #### P T, PTT, LACT, CMP, MG1, PHOS, CBCDIF ####[address] [phone] Notify Time, Jovani [id number] [facility] Comment on above: Performed By: #### P T, PTT, LACT, CMP, MG1, PHOS, CBCDIF ####[facility] [place], [place] [phone] Sepsis Lactate 2.0 mmol/L Normal <2.1 [facility] Comment on above: Performed By: #### P T, PTT, LACT, CMP, MG1, PHOS, CBCDIF ####[facility] [place] [phone] CBC and Differentialon 11-13 Abs Baso 0.09 k/uL Normal <0.11 [facility] Comment on above: Performed By: #### P T, PTT, LACT, CMP, MG1, PHOS, CBCDIF ####[facility] [place], [place] [phone] Abs Haskell 1.31 k/uL High <0.87 [facility] Comment on above: Performed By: #### P T, PTT, LACT, CMP, MG1, PHOS, CBCDIF ####[place] [address] [place] [phone] Abs Neut 8.94 k/uL High 1.45-7.50 [facility] Comment on above: Performed By: #### P T, PTT, LACT, CMP, MG1, PHOS, CBCDIF ####[place] [address] [phone] Absolute nRBC <0.01 Normal <0.01 [facility] Comment on above: Performed By: #### P T, PTT, LACT, CMP, MG1, PHOS, CBCDIF ####[place] [address], [place] [phone] Basophils/100 WBC Auto (Bld) 0.6 % Normal [facility] Comment on above: Performed By: #### P T, PTT, LACT, CMP, MG1, PHOS, CBCDIF ####[place] [address] [phone] DTYPE Auto Diff Normal [facility] Comment on above: Performed By: #### P T, PTT, LACT, CMP, MG1, PHOS, CBCDIF ####[place] [address] [phone] Eosinophils Auto #/vol (Bld) 1.70 10*3/uL High <0.46 [facility] Comment on above: Performed By: #### P T, PTT, LACT, CMP, MG1, PHOS, CBCDIF ####[place] [address] [phone] Eosinophils/100 WBC Auto (Bld) 12.2 % Normal [facility] Comment on above: Performed By: #### P T, PTT, LACT, CMP, MG1, PHOS, CBCDIF ####[place] [phone] Erythrocyte distribution width Auto Ratio (RBC) 19.6 % High 11.5-15.0 [facility] Comment on above: Performed By: #### P T, PTT, LACT, CMP, MG1, PHOS, CBCDIF ####[address] [phone] Hematocrit Auto Volume Fraction (Bld) 28.4 % Low 39.0-51.0 [facility] Comment on above: Performed By: #### P T, PTT, LACT, CMP, MG1, PHOS, CBCDIF ####[place] [phone] Hemoglobin mass conc (Bld) 8.9 g/dL Low 13.0-17.0 [facility] Comment on above: Performed By: #### P T, PTT, LACT, CMP, MG1, PHOS, CBCDIF ####[place] [phone] Lymphocytes Auto #/vol (Bld) 1.95 10*3/uL Normal 1.00-4.00 [facility] Comment on above: Performed By: #### P T, PTT, LACT, CMP, MG1, PHOS, CBCDIF ####[place] [phone] Lymphocytes/100 WBC Auto (Bld) 13.9 % Normal [facility] Comment on above: Performed By: #### P T, PTT, LACT, CMP, MG1, PHOS, CBCDIF ####[place] [phone] MCH Auto Entitic mass (RBC) 30.6 pG Normal 26.0-34.0 [facility] Comment on above: Performed By: #### P T, PTT, LACT, CMP, MG1, PHOS, CBCDIF ####[address] [place] [phone] MCHC Auto mass conc (RBC) 31.3 g/dL Normal 30.5-36.0 [facility] Comment on above: Performed By: #### P T, PTT, LACT, CMP, MG1, PHOS, CBCDIF ####[place] [phone] MCV Auto Entitic volume (RBC) 97.6 fL Normal 80.0-100.0 [facility] Comment on above: Performed By: #### P T, PTT, LACT, CMP, MG1, PHOS, CBCDIF ####[place] [phone] Monocytes/100 WBC Auto (Bld) 9.4 % Normal [facility] Comment on above: Performed By: #### P T, PTT, LACT, CMP, MG1, PHOS, CBCDIF ####[place] [phone] Neutrophils/100 WBC Auto (Bld) 63.9 % Normal [facility] Comment on above: Performed By: #### P T, PTT, LACT, CMP, MG1, PHOS, CBCDIF ####[place] [phone] NRBCs 0.0 /100 WBC Normal 0 [facility] Comment on above: Performed By: #### P T, PTT, LACT, CMP, MG1, PHOS, CBCDIF ####[place] [phone] Platelet mean volume Auto Entitic volume (Bld) 11.1 fL Normal 9.0-12.7 [facility] Comment on above: Performed By: #### P T, PTT, LACT, CMP, MG1, PHOS, CBCDIF ####[address] [place] [phone] Platelets Auto #/vol (Bld) 316 10*3/uL Normal 150-400 [facility] Comment on above: Performed By: #### P T, PTT, LACT, CMP, MG1, PHOS, CBCDIF ####[facility] [address] [place], [place] [phone] RBC Auto #/vol (Bld) 2.91 10*6/uL Low 4.20-6.00 Cl [facility] Comment on above: Performed By: #### P T, PTT, LACT, CMP, MG1, PHOS, CBCDIF ####[facility], [place] [phone] WBC Auto #/vol (Bld) 13.99 10*3/uL High 3.70-11.00 C [facility] Comment on above: Performed By: #### P T, PTT, LACT, CMP, MG1, PHOS, CBCDIF ####[facility] [address] [place], [place] [phone] CONSULTon 11-13-2017 CONSULT HNO ID: [id number] thor: Shlomo (ResALHAJI Luzervice: UrologyAuthor Type: ResidentType: ConsultsFiled: 11/13/2017 9:26 PMNote Text:BEDSIDE PROCEDURE NOTEPROCEDURE DATE: November 13, 2017PROCEDURE START TIME: ~6PMPRIMARY PROCEDURALIST: Shlomo Medeiros MDASSISTANT(S): Yuri Botello MDINFORMKENYETTA CONSENT: Informed Consent obtained and on the chartUNIVERSAL PROTOCOL / SAFETY CHECKLISTSign in Communication: CompletedTime Out: Team Confirms the Correct Patient, Correct Procedure, CorrectSite and Site Marking, Correct Position (if applicable), Prep and Dry Time(if applicable). Time: 6PMAffirmation of Time Out: YESSign Out Discussion: CompletedPROCEDURE:CYSTOSCOP YIndication: Hematuria, Inability to Place CatheterAnalgesia/Sedation: Lidocaine jellyAntibiotics: Ceftriaxone 1g IV x 1Procedure:After obtaining proper consent, the patient was placed into the supineposition and prepped/draped in sterile fashion. Lidocaine jelly wasinserted per urethra. Flexible cystoscopy was performed. There wassignificant old clot and some fresh bleeding immediately upon entering thepenile urethra. Visualization was severely limited. The urethra displayedsignificant damage from likely previous traumatic morejon attempts. Aftersignificant attempts to reach the bladder to allow for wire and catheterplacement, the procedure was aborted due to extremely poor visibility.Complications: NoneAnatomic Site: Urethra, Laterality: Not applicableApproach: EndoscopicDevice: NoneQualifier: NoneSpecimens: NoneEstimated Blood Loss: NonePost-Operative Diagnosis:Encounter Diagnosis ICD-10-CM1. Acute respiratory failure with hypoxia ([facility]) J96.012. DAYNA (acute kidney injury) ([facility]) N17.9 DIALYSIS CATHETER PROCEDURE (WNOTE)3. Elevated LFTs R94.54. Factor V Leiden ([facility]) D68.515. Retroperitoneal bleed R586. Supratherapeutic INR R79.17. Anemia due to blood loss D50.08. Drug induced rash with eosinophilia and systemic symptoms L27.0 D72.1 T50.905A9. Hepatitis K75.910. Azotemia R79.8911. DRESS syndrome L27.0 D72.1 T50.905A12. Transaminitis R74.013. Abscess L02.9114. Mild protein-calorie malnutrition ([facility]) E44.115. ATN (acute tubular necrosis) ([facility]) N17.016. Polyuria R35.8SIGNATURE: Shlomo Medeiros MD PATIENT NAME: Hung AhumadaoneDATE: November 13, 2017 : 9:21 PM PAGER/CONTACT #: [phone] Normal [facility] CONSULT HNO ID: [id number] thor: ALHAJI Cornell Reservice: UrologyAuthor Type: ResidentType: ConsultsFiled: 11/14/2017 7:52 AMNote Text:UROLOGY SERVICE CONSULT NOTEPATIENT NAME: Hung PeckMRN: [id number] 2017ASSESSMENT AND PAOU08hpZ with past medical history of FVL (on coumadin long-term) c/b DVT/PE('05, '06) and R TKA recovery c/b thigh abscess s/p 4 weeks ABx (vanco,ceftriaxone, linesolid, doxy) c/b DRESS syndrome with transaminitis andoliguric DAYNA requiring CVVHD; now recovering on steroid taper, also nowproducing urine, per renal consider etiology DRESS AIN vs more likelyhypotensive ATN (due to overall illness, acute blood loss). Recovery c/bRP bleed with supratheraputic INR (19.5) requiring many transfusions andcoumadin reversal. Now off all AC.Urology consulted for gross hematuria plus clots. Blood clots at themeatus + dark arce red gross hematuria on exam.Unable to place 22fr prostatectomy, 18 coude, or 16Fr catheter.Attempted to place cystoscopically but unable to visualize 2/2 fairlysignificant bleeding + blood clots.Patient is still voiding. PVR 240cc.Will obtain serial PVRs overnight. Please obtain renal US to rule outhydronephrosis/large clot in the bladder.If PVRs worsen or patient unable to urinate, will re-attempt cystoscopy.Suspect urethral source of bleeding given recent history of traumaticfoley attempt.Addendum 2125: Voided 300cc with PVR 28cc. Will not repeat cystoscopicattempt at placement today unless significant clinical changes.Case discussed with chief Dr. Brooke, to be discussed with [id number] with past medical history of FVL (on coumadin long-term) c/b DVT/PE('05, '06) and R TKA recovery c/b thigh abscess s/p 4 weeks ABx (vanco,ceftriaxone, linesolid, doxy) c/b DRESS syndrome with transaminitis andoliguric DAYNA requiring CVVHD; now recovering on steroid taper, also nowproducing urine, per renal consider etiology DRESS AIN vs more likelyhypotensive ATN (due to overall illness, acute blood loss). Recovery c/bRP bleed with supratheraputic INR (19.5) requiring many transfusions andcoumadin reversal. Now off all AC.This morning began having arce red gross hematuria + clots. [place] like hewas emptying his bladder well. No pain with urination. No suprapubictenderness, fever, or chills.Of note patient [facility] OSH was unable to place normal catheter,resulting in bleeding. Then attempted larger catheter with furtherbleeding. Finally a small catheter was placed without issue.He states his urine was light pink and finally clearing up until thismorning.One prior episode of gross hematuria, many years ago. He states he saw adoctor for it but unclear what workup was done. No previous issues withpoor flow of weak stream. Does not recall ever having seen a urologistbefore. No history of kidney stones. Never smoker. PAST MEDICAL HISTORYDiagnosis Date- Factor V Leiden (HCC)PAST SURGICAL HISTORYProcedure Laterality Date- TOTAL KNEE REPLACEMENT RightNo family history on file.Social HistorySubstance Use Topics- Smoking status: Not on file- Smokeless tobacco: Not on file- Alcohol use Not on fileMEDICATIONS:Prior to Admission Medications:No prescriptions on file.Current hospital medications:cefTRIAXone 1 g in D5W 100 mL MB+ (ROCEPHIN) 1 g INTRAVENOUS q 24 Hlidocaine urojet 2 % 6 mL topical gel (XYLOCAINE, GLYDO) 6 mL MUCOUSMEMBRANE ONCEmethylPREDNISolone 32 mg tab(s) (MEDROL) 32 mg ORAL DAILY[START ON 11/23/2017] methylPREDNISolone (MEDROL) tab(s) 24 mg 24 mg ORALDAILY[START ON 12/03/2017] methylPREDNISolone (MEDROL) tab(s) 12 mg 12 mg ORALDAILYpantoprazole 40 mg CUP (PROTONIX) 40 mg ORAL/FEEDING TUBE DAILY (6 AM)0.9% NaCl 10 mL 10 mL INTRAVENOUS q 12 H0.9% NaCl 20 mL 20 mL INTRAVENOUS PRNALLERGIES: Linezolid; VancomycinCOMPLETE REVIEW OF SYSTEMS:REVIEW OF SYSTEMSPAIN ASSESSMENT: Negative for pain, history of chronic pain, or currenttreatment for a chronic pain condition.GENERAL: No weight loss, malaise or feversHEENT: Negative for frequent or significant headachesNECK: Negative for lumps, goiter, pain and significant neck swellingRESPIRATORY: no coughCARDIOVASCULAR: no chest painGI: No nausea, vomiting, or diarrheaGU: See HPIMUSCULOSKELETAL: Negative for joint pain or swelling, back pain or musclepainSKIN: recent skin infectionPSYCH: Negative for sleep disturbance, mood disorder and recentpsychosocial stressorsHEMATOLOGY/LYMPHOLO GY: +FVL, on coumadinENDOCRINE: Negative for cold or heat intolerance, polyuria, polydipsia andgoiterNEURO: no headachesPHYSICAL EXAM: BP 132/67 Pulse 95 Temp 36.6 ?C (97.8 ?F) (Oral) Resp 18 Ht 188 cm (6' 2) Wt 93 kg (205 lb 0.4 oz) SpO2 98% BMI 26.32 kg/m?Gen: No apparent distress, appears stated age, well-nourished, supine inhospital bed, appropriate affectEyes: Anicteric, conjugate gazeHead/Neck: Normocephalic, atraumaticPulmonary: breathing unlaboredCardiac: Regular rateAbdomen: Soft, non-distended, non-tender in all quadrantsGU: MALE EXAM: no suprapubic distention or tenderness. Circumcised peniswith blood clot at the meatus. Testes normal bilaterally without masses.Non tender.Extremities: ++ bilateral lower extremity edemaNeuro: Alert and oriented x 3.IMAGING:Renal US 11/04/2017: no hydronephrosisMichael Waldemar, MAXGY-2, UrologyPager [phone] service station console operator after 5pm weekdays and all weekends: [id number] [id number] PMCHIEF RESIDENT ADDENDUMAgree with the note [id number] with past medical history of FVL (on coumadin long-term) c/b DVT/PE('05, '06) and R TKA recovery c/b thigh abscess s/p 4 weeks ABx (vanco,ceftriaxone, linesolid, doxy) c/b DRESS syndrome with transaminitis andoliguric DAYNA requiring CVVHD; now recovering on steroid taper, also nowproducing urine, per renal consider etiology DRESS AIN vs more likelyhypotensive ATN (due to overall illness, acute blood loss). Recovery c/bRP bleed with supratheraputic INR (19.5) requiring many transfusions andcoumadin reversal. Now off all AC.BP 139/75 Pulse 83 Temp 37.8 ?C (100 ?F) (Oral) Resp 16 Ht 188cm (6' 2) Wt 89.2 kg (196 lb 10.4 oz) SpO2 95% BMI 25.25 kg/m?Abd soft, nt, ndSCr 4.13 downtrendingHgb 9.0Urine is clear yellow this AMPlan per Dr. Medeiros aboveUrine is clear yellow this AMPVR overnight 28cc and 30cc - UOP 2.35LHgb stableSCr downtrendingWould favor no more urethral instrumentation at this time - has hadmultiple traumatic caths and now cystoscopically our team was unable toplace a Morejon - would allow healing before repeat cysto - at this timewith patient emptying well and SCr downtrending, no compelling indicationfor morejon - patient also adamantly doesn't want another cysto or cathNo need for RBUS currently as urine clear and SCr downtrendingWill need hematuria workup as outpatient - SCr precludes CT urogram -likely will need cystoscopy, bilateral retrograde pyelograms, urinecytology as outpatient - d/w patient - he [place] 1.5h[place] and willconsider getting urologist at home - we will set him up an appt with ourteam here and he will cancel as neededOk to DC home without Morejon from our perspectiveEmma Brooke M.D.Urology PGY-6Pager: [phone] 24, [phone] AMPLEASE FIRST PAGE THE PRIMARY SERVICE RESIDENT LISTED ABOVE Normal [facility] CONSULT PROGon 11-13-2017 Protein mass conc HNO ID: [id number] thor: Aubrey Miranda CallGeorgesrvice: NephrologyAuthor Type: PhysicianType: Consult Progress NoteFiled: 11/13/2017 3:02 PMNote Text:Renal Consults F/USept2017S: No major events. Seen at bedside with primary team. Still mildpolyuria.Current hospital medications:methylPREDNISolo ne 32 mg tab(s) (MEDROL) 32 mg ORAL DAILY[START ON 11/23/2017] methylPREDNISolone (MEDROL) tab(s) 24 mg 24 mg ORALDAILY[START ON 12/03/2017] methylPREDNISolone (MEDROL) tab(s) 12 mg 12 mg ORALDAILYpantoprazole 40 mg CUP (PROTONIX) 40 mg ORAL/FEEDING TUBE DAILY (6 AM)0.9% NaCl 10 mL 10 mL INTRAVENOUS q 12 H0.9% NaCl 20 mL 20 mL INTRAVENOUS PRNPHYSICAL EXAM:Patient Vitals for the past 24 hrs: BP Temp Temp src Pulse Resp SpO2 Wkqmqj10/23/18 1000 132/67 - - 95 - - -11/13/17 0900 126/86 36.6 ?C (97.8 ?F) Oral 104 18 98 % -11/13/17 0632 124/73 36.9 ?C (98.5 ?F) Oral 85 18 98 % 93 kg (205 lb 0.4oz)11/13/17 0200 126/73 36.7 ?C (98 ?F) Oral 79 18 98 % -11/12/17 2207 109/56 36.6 ?C (97.9 ?F) Oral 79 18 98 % -11/12/17 1800 131/71 36.6 ?C (97.8 ?F) Oral 71 18 99 % -VS: No data found.I/O:Intake/Output Summary (Last 24 hours) at 11/13/17 1500Last data filed at 11/13/17 1000 Gross per 24 hourIntake 973 mlOutput 2875 mlNet -1902 mlIntake/Output Summary (Last 24 hours) at 11/13/17 0659Last data filed at 11/13/17 0400 Gross per 24 hourIntake 1463 mlOutput 3280 mlNet -1817 mlGeneral: NADNeck: Trachea midline. No mass palpableLungs: Clear to auscultation, no crackles or wheezing.CV: normal, Regular rate and rhythm, no murmurs, clicks, or gallops.Abd: + bowel sounds, no distension.Neuro: no asterixis, no focal deficits.Ext: no edemaLABS:Recent Labs 11/13/1804CREAT -- 4.13* 4.83* 5.46*BUN -- 77* 84* 80*NA -- 144 141 141K -- 3.9 3.9 4.6CHLOR -- 107* 105 103CO2 -- *GLUC -- 77 82 79CA -- 8.7 8.4* 8.4*MG -- 2.0 2.0 2.0P -- 4.1 4.8 5.4*ALB -- 2.2* 2.0* 1.9*WBC -- 13.99* 14.18* 12.08*HB 9.0* 8.9* 8.3* 8.2*MCV -- 97.6 96.0 99.3PLT -- 316 284 283IMPRESSION: 57 year old male with h/o factor V leidin, s/p R TKA c/bpseudomonas UTI and right thigh abscess s/p multiple antibiotics c/bdesquamating rash concerning for DRESS vs SJS/TEN further c/b shock, DAYNA,transaminitis and RP bleed. Transferred to [facility] for furtther management.???Non oliguric DAYNA secondary to ischemic ATN from hypotension and RP bleed- Baseline SCr <1- Etiology likely 2/2 ?ischemic ATN in the setting of hypotension and RPbleed.- ?AIN vs parto of DRESS.- He did get steroids at the OSH after all antibiotics were stopped.- Patient also had proteinuria with UPC 3 gm at the OSH on 10/31.- started briefly on CVVHD 11/06 due to worsening solutes, hyperkalemia andoptimize volume.?Post ATN polyuria. Improved azotemia. Good PO intake. Ok to d/c homewith close renal labs follow up within one week. Advised on PO intake toavoid electrolyte issues with post ATN polyuria.Thank You for allowing us to participate in his care.Aubrey Tsai MD. FASN. [id number].Nephrology and Hypertension.November 13, 20173:00 PM Normal [facility] Comp Metabolic Panelon 11-13 Albumin mass conc 2.2 g/dL Low 3.9-4.9 [facility] Comment on above: Performed By: #### P T, PTT, LACT, CMP, MG1, PHOS, CBCDIF ####[facility] [address] [place], [place] [phone] ALP enzyme act/vol 270 U/L High 36-108 [facility] Comment on above: Performed By: #### P T, PTT, LACT, CMP, MG1, PHOS, CBCDIF ####[place] [phone] ALT enzyme act/vol 46 U/L Normal 10-54 [facility] Comment on above: Performed By: #### P T, PTT, LACT, CMP, MG1, PHOS, CBCDIF ####[place] [phone] Anion gap 3 molar conc 14 mmol/L Normal 9-18 [facility] Comment on above: Performed By: #### P T, PTT, LACT, CMP, MG1, PHOS, CBCDIF ####[place] [phone] AST enzyme act/vol 32 U/L Normal 14-40 [facility] Comment on above: Performed By: #### P T, PTT, LACT, CMP, MG1, PHOS, CBCDIF ####[place] [phone] Bilirubin mass conc 2.7 mg/dL High 0.2-1.3 [facility] Comment on above: Performed By: #### P T, PTT, LACT, CMP, MG1, PHOS, CBCDIF ####[place] [phone] Calcium mass conc 8.7 mg/dL Normal 8.5-10.2 [facility] Comment on above: Performed By: #### P T, PTT, LACT, CMP, MG1, PHOS, CBCDIF ####[address] [phone] Chloride molar conc 107 mmol/L High 97-105 [facility] Comment on above: Performed By: #### P T, PTT, LACT, CMP, MG1, PHOS, CBCDIF ####[facility] AveCSan [address], [place] [phone] CO2 molar conc 23 mmol/L Normal 22-30 [facility] Comment on above: Performed By: #### P T, PTT, LACT, CMP, MG1, PHOS, CBCDIF ####[facility], [place] [phone] Creatinine mass conc 4.13 mg/dL High 0.73-1.22 [facility] Comment on above: Performed By: #### P T, PTT, LACT, CMP, MG1, PHOS, CBCDIF ####[place] [address] [address] Av[address] [place] [phone] eGFR- Amer. 18 Normal [facility] Comment on above: Performed By: #### P T, PTT, LACT, CMP, MG1, PHOS, CBCDIF ####[place] [address], [place] [phone] GFR/1.73 sq M predicted among non-blacks MDRD vol rate/area (S/P/Bld) 15 . Normal [facility] Comment on above: Result Comment: eGFR (Estimated GFR) Units of measure: mL/min/1.73 meters squaredeGFR is derived from the reexpressed MDRD Study equation using the following parameters: serum creatinine, age, gender and race. The creatinine assay has been calibrated to be traceable to IDMS.An eGFR <60 mL/min/1.73m2 for >3 months is consistent with chronic kidney disease. Refer to KDOQI guidelines for clinical interpretation.In patients with unstable renal function, e.g. those with acute kidney injury, the eGFR may not accurately reflect actual GFR. Performed By: #### P T, PTT, LACT, CMP, MG1, PHOS, CBCDIF ####[address] [phone] Glucose mass conc 77 mg/dL Normal 74-99 [facility] Comment on above: Result Comment: The [place] Diabetes Association (ADA) provides guidance for cutoff values for fasting glucose and random glucose. The ADA defines fasting as no caloric intake for at least 8 hours. Fasting plasma glucose results between 100 to 125 mg/dL indicate increased risk for diabetes (prediabetes).Fasting plasma glucose results greater than or equal to 126 mg/dL meet the criteria for diagnosis of diabetes. In the absence of unequivocal hyperglycemia, results should be confirmed by repeat testing. In a patient with classic symptoms of hyperglycemia or hyperglycemic crisis, random plasma glucose results greater than or equal to 200 mg/dL meet the criteria for diagnosis of diabetes.Reference: Standards of Medical Care in Diabetes 2016, [place] Diabetes Association. Diabetes Care. 2016.39(Suppl 1). Performed By: #### P T, PTT, LACT, CMP, MG1, PHOS, CBCDIF ####[address] [phone] Potassium molar conc 3.9 mmol/L Normal 3.7-5.1 [facility] Comment on above: Performed By: #### P T, PTT, LACT, CMP, MG1, PHOS, CBCDIF ####[address] [phone] Protein mass conc 7.7 g/dL Normal 6.3-8.0 [facility] Comment on above: Performed By: #### P T, PTT, LACT, CMP, MG1, PHOS, CBCDIF ####[address] [phone] Sodium molar conc 144 mmol/L Normal 136-144 [facility] Comment on above: Performed By: #### P T, PTT, LACT, CMP, MG1, PHOS, CBCDIF ####[address] [phone] Urea nitrogen mass conc 77 mg/dL High 9-24 [facility] Comment on above: Performed By: #### P T, PTT, LACT, CMP, MG1, PHOS, CBCDIF ####[address] [phone] Hemoglobinon 11-13-2017 Hemoglobin mass conc (Bld) 9.0 g/dL Low 13.0-17.0 [facility] Comment on above: Performed By: #### P T, PTT, LACT, CMP, MG1, PHOS, CBCDIF ####[facility] [address] [place], [place] [phone] Magnesiumon 11-13-2017 Magnesium mass conc 2.0 mg/dL Normal 1.7-2.3 [facility] Comment on above: Performed By: #### P T, PTT, LACT, CMP, MG1, PHOS, CBCDIF ####[facility] [address], [place] [phone] PROGRESSon 11-13-2017 Protein mass conc HNO ID: [id number] thor: Toro CooperService: General Internal MedicineAuthor Type: PhysicianType: Progress NotesFiled: 11/13/2017 1:55 PMNote Text:[facility] DProgress NoteWeekdays 7 am - 5 pm/Weekend 7 am to 3 pm:Page [phone] (Felicia Romero MD) then Senior resident Ethan Davalos,at [phone] 5 pm to 7 am/Weekend 3 pm to 7 am:[employer] Platemaker Pager [phone] NAME: Hung PeckMRN: [id number] DAY: DATE: 11/13/2017SERVICE TIME: 5:48 AMPlan for Today- Large UO (polyuric recovery period of oliguric DAYNA); nephrologyfollowing, appreciate recommendations- No IVF for fluid replacement per Renal (perpetuate polyuria)- PT/OT for d/c planning- No prophylaxis/AC due to recent RP bleedInterval Events- KASI overnight. HDS and afebrile. S/p removal of RIJ line yesterday,tolerated well. Urine output remains significant.Medicationsrevie wedCunaval hospital [facility] Facility-Administered Medications:methylPREDNISolo ne 32 mg tab(s) (MEDROL) 32 mg ORAL DAILY[START ON 11/23/2017] methylPREDNISolone (MEDROL) tab(s) 24 mg 24 mg ORALDAILY[START ON 12/03/2017] methylPREDNISolone (MEDROL) tab(s) 12 mg 12 mg ORALDAILYpantoprazole 40 mg CUP (PROTONIX) 40 mg ORAL/FEEDING TUBE DAILY (6 AM)0.9% NaCl 10 mL 10 mL INTRAVENOUS q 12 H0.9% NaCl 20 mL 20 mL INTRAVENOUS PRNPhysical Exam 11/12/1817BP: 125/83 131/71 109/56 126/73Pulse: 78 71 79 79Resp: 18Temp: 37.1 ?C (98.7 ?F) 36.6 ?C (97.8 ?F) 36.6 ?C (97.9 ?F) 36.7 ?C (98?F)TempSrc: Oral Oral Oral OralSpO2: 98% 99% 98% 98%Weight:Height:General: No acute distress, EGSDZb5Dvup: supple, no LAD, no JVDEyes: PERRLA, EOMILungs: clear to auscultation bilaterally, no wheezing, rhonchi or ralesHeart: RRR, normal S1 and S2, no murmurs, rubs or gallopsAbdomen: Soft, non-tender, non-distended. Bowel sounds normal. No ascites.No masses or hepatosplenomegaly.Extremiti es: Pulses intact and symmetric.Skin: +pale pink-red, flaking rash over arms, hands, chest, with notablered rash to L upper arm with sharp margins in size/shape of blood pressurecuff - IMPROVED, color red-purple, blanching, dullNeuro: No focal neurological deficits. CN II-XII grossly intact. Sensationand Strength grossly intact.Fluid BalanceIntake/Output Summary (Last 24 hours) at 11/13/17 0548Last data filed at 11/13/17 0400 Gross per 24 hourIntake 1463 mlOutput 3530 mlNet -2067 mlLabsCBC, Coags, BMP, Mg, PhosRecent Labs 11/11/1805WBC 14.18* 12.08*HB 8.3* 8.2*HCT 26.1* 26.7*PLT 284 283INR 1.2 1.1NA 141 141K 3.9 4.6CHLOR 105 103CO2 22 21*BUN 84* 80*CREAT 4.83* 5.46*GLUC 82 79CA 8.4* 8.4*MG 2.0 2.0P 4.8 5.4*Assessment and Mzvt21qzH with past medical history of FVL (on coumadin long-term) c/b DVT/PE(, ) and R TKA recovery c/b thigh abscess s/p 4 weeks ABx (vanco,ceftriaxone, linesolid, doxy) c/b DRESS syndrome with transaminitis andoliguric DAYNA requiring CVVHD; now recovering on steroid taper, also nowproducing urine, per renal consider etiology DRESS AIN vs more likelyhypotensive ATN (due to overall illness, acute blood loss). Recovery c/bRP bleed with supratheraputic INR (19.5) requiring many transfusions andcoumadin reversal. Now off all AC. Monitoring Hb, renal status.Active Hospital Problems Diagnosis- Status post total right knee replacement Assessment: Unclear hx of PJI/thigh abscess. Patient had presented lateJuly with swelling and loss of mobility of joint. S/p IANDD 09/18 of thighfluid pocket, no revision to TKA, [facility]. S/p 4 weeks ABx (vanco, ceftriaxone, linezolid,doxy). CT OSH from 10/28 with reported right leg ?abscess/fluid collectionsuprapatellar space. No leukocytosis, no fevers, but + groin adenopathyseen on DVT studies. On PE, no signs erythema/swelling/pain.PLAN: ?-per patient/family, ID doctor informed them that they had completed allrequired ABx-R Knee XR UR-No ABX at this time- Mild protein-calorie malnutrition (HCC)- Retroperitoneal bleed Assessment:OSH CT A/P (11/03) with RP bleed in setting ofsupratherapeutic INR (19.5). S/p many transfusions at OSH and hereincluding PRBC, vitamin K, and FFP.PLAN:-Hb daily-IR consulted- no intervention at this time, continue medical management.-Vasc consulted - no intervention at this time, remain off ALL AC for 2-4weeks-F/u with Dr. Le (manages coumadin long-term) in 2 weeks-No evidence of DVT study 11/07; superficial thrombus noted LLE- DAYNA (acute kidney injury) (HCC) Assessment: Nonoliguric DAYNA/ATN secondary to hemodynamic instability vsDRESS syndrome. Normal SCr at baseline. Started on CVVHD on 11/06 forhyperkalemia not responding to medical management. CVVHD stopped early on11/07 due to clots in filter. Per renal, no need for CVVHD (11/10) willcontinue to monitor. Patient urinating.PLAN:-removal of RIJ per renal, UO polyuric-Avoid Nephrotoxic agents-Renally dose meds EGFR 13-50-Prllvyiqww following, appreciate input.- Hepatitis Assessment: Likely 2/2 to DRESS. US (11/01) thickened GB wall with asmall amt of pericholecystic fluid. Mild hepatomegaly with with mild fattyinfiltration. Transaminase trending down, hyperbilirubinemia improving.Acute hep panel significant for previous B exposure, Hep C antibody +. ?USwith appropriate flow, no biliary dilation, non-specific GB wallthickening. ?PLAN:- Trend LFTs- Hepatology following, appreciate input.- Given 2 doses of Vit K, 11/06 and 11/07.- Factor V Leiden (HCC) Assessment: H/o Factor V Leiden with h/o PE/DVT on coumadin.Supratherapetic INR of 19 on presentation to OSH 10/28.PLAN:- Holding anticoagulation in setting of supratherapeutic INR and acuteblood loss anemia.- PAS and SHINE rand.- Encourage ambulation.- Updated Dr. Glez [phone], local physician who manages coumadin;apt in 2 weeks to consider restarting without bridge- Drug induced rash with eosinophilia and systemic symptoms Assessment: Suspected DRESS at OSH with fever, desquamating rash,peripheral eosinophilia, DAYNA, hepatitis in setting ofvanco/linezolid/ceftriaxon e/doxy therapy in 08/2017 for thigh abscess.Timeline most suggestive of vanc/ceftriaxone being culprit; by the timepatient started linezolid/doxy, he was already +rash, swelling.PLAN:?- Supportive management- Methylprednisolone 40 mg daily ?- Taper by 10 mg q10 days per Derm recs- Derm consulted, appreciate recommendations- Has f/u appointment with Derm 11/29- Anemia due to blood loss Assessment: Due to RP bleed s/p many RBC, FFP transfusions.Plan:-Hb daily-Transfuse goal: Hb >7# Lines:Lines, Drains, and Airways Line Peripheral 11/09/17 1600 Left Arm 20 Gauge 3 days Peripheral 11/09/17 1600 Right Arm 22 Gauge 3 days# VTE PPx: compression stockings, pneumatic devices# GI PPx: pantoprazole# Diet: Regular# Dispo: to appropriate level of care when medically stable, per PT/OTconsidder home with PT however have not seen patient since 11/09# Code Status: Full codeCare plan coordinated under direct supervision of attending physician, Dr.Aaron Kenneth MD. Finalized addendum to follow.SIGNATURE: MAX AlanGY-1 IM Resident PATIENT NAME: Hung AhumadaoneDATE: November 13, 2017 : 5:48 AM Pager: [phone] STAFF PHYSICIAN NOTE OF PERSONAL INVOLVEMENT IN CAREI have reviewed the progress note obtained and documented by the residentand I personally participated in the madrigal components. I have discussed thecase and management of the patient's care. The following comments reviseor confirm relevant madrigal components of their note.Continued renal recovery. Encouraging po intake. Cr 4.1. UOP 3.3 L netneg 1.8LStable left leg swelling - no further imaging required.Hematuria noted at end of urination and at meatus. Hx of traumatic foleyduring this hospital course.May run this by urology.Preparing for d/c Likely tuesdayDr Shraddha to assume care for this patient as primary staff tomorrow amSIGNATURE: MAX ReavesAGER: [id number] of SERVICE: November 13, 2017TIME of SERVICE: 1:55 PM Normal [facility] Phosphoruson 11-13-2017 Phosphate mass conc 4.1 mg/dL Normal 2.7-4.8 [facility] Comment on above: Performed By: #### P T, PTT, LACT, CMP, MG1, PHOS, CBCDIF ####[facility] [place], [place] [phone] Protimeon 11-13-2017 INR Coag RelTime (Bld) 1.1 {INR} Normal 0.9-1.3 [facility] Comment on above: Result Comment: Nini min K Antagonist (VKA) Therapeutic Range: INR 2 to 3 (Target INR of 2.5)Note: For patients treated with VKA drugs, such as warfarin, the [place] [employer] 2012 Guideline recommends a therapeutic INR range of 2 to 3 (target INR of 2.5). This recommendation includes high-risk patients with antiphospholipid syndrome with previous arterial or venous thromboembolism, current-generation mechanical or bioprosthetic aortic heart valve replacement.Note: Patients with mechanical aortic valve replacement and additional risk factors for thromboembolic events (atrial fibrillation, previous thromboembolism, LV dysfunction, hypercoagulable conditions) or an older generation mechanical AVR (i.e., ball in-Cage) or any mechanical MVR should have a INR therapeutic range of 2.5 to 3.5 (target INR of 3).Raghav GH, et al. Chest 2012, 141:7S-47SNishcarolyn RA, et al. [facility] 2017, 70: 252-289 Performed By: #### P T, PTT, LACT, CMP, MG1, PHOS, CBCDIF ####[facility] [place], [place] [phone] PT Sec 11.9 sec Normal 9.7-13.0 [facility] Comment on above: Performed By: #### P T, PTT, LACT, CMP, MG1, PHOS, CBCDIF ####[facility] [place], [place] [phone] Urine Cultureon 11-13-2017 Bacteria identified Cx Nom (U) Sp. Request/Comment: - Specimen received in preservativeCulture Result - 10,000 - <50,000 CFU/ml Lactose negative gram negative bacilli --> ABNORMAL ALERT Insignificant colony count. No further workup. --> ABNORMAL ALERT <10,000 CFU/ml Normal urogenital mary Critically abnormal [facility] Comment on above: Performed By: #### P T, PTT, LACT, CMP, MG1, PHOS, CBCDIF ####[place] [address] [place] [phone] CBC and Differentialon 11-12 Abs Baso 0.13 k/uL High <0.11 [facility] Comment on above: Performed By: #### P T, PTT, LACT, CMP, MG1, PHOS, CBCDIF ####[place] [address] [place] [phone] Abs Haskell 1.01 k/uL High <0.87 [facility] Comment on above: Performed By: #### P T, PTT, LACT, CMP, MG1, PHOS, CBCDIF ####[place] [address] [place] [phone] Abs Neut 10.00 k/uL High 1.45-7.50 [facility] Comment on above: Performed By: #### P T, PTT, LACT, CMP, MG1, PHOS, CBCDIF ####[place] [address] [place] [phone] Anisocytosis Auto Ql (Bld) Present Normal [facility] Comment on above: Performed By: #### P T, PTT, LACT, CMP, MG1, PHOS, CBCDIF ####[place] [address] [place] [phone] Basophils/100 WBC Auto (Bld) 0.9 % Normal [facility] Comment on above: Performed By: #### P T, PTT, LACT, CMP, MG1, PHOS, CBCDIF ####[place] [address] [place] [phone] DTYPE Manual Diff Normal [facility] Comment on above: Performed By: #### P T, PTT, LACT, CMP, MG1, PHOS, CBCDIF ####[place] [address] [place] [phone] Eosinophils Auto #/vol (Bld) 2.16 10*3/uL High <0.46 [facility] Comment on above: Performed By: #### P T, PTT, LACT, CMP, MG1, PHOS, CBCDIF ####[place] [address] [place] [phone] Eosinophils/100 WBC Auto (Bld) 15.2 % Normal [facility] Comment on above: Performed By: #### P T, PTT, LACT, CMP, MG1, PHOS, CBCDIF ####[place] [address] [place] [phone] Erythrocyte distribution width Auto Ratio (RBC) 19.8 % High 11.5-15.0 [facility] Comment on above: Performed By: #### P T, PTT, LACT, CMP, MG1, PHOS, CBCDIF ####[place] [address] [place] [phone] Hematocrit Auto Volume Fraction (Bld) 26.1 % Low 39.0-51.0 [facility] Comment on above: Performed By: #### P T, PTT, LACT, CMP, MG1, PHOS, CBCDIF ####[place] [address] [place] [phone] Hemoglobin mass conc (Bld) 8.3 g/dL Low 13.0-17.0 [facility] Comment on above: Performed By: #### P T, PTT, LACT, CMP, MG1, PHOS, CBCDIF ####[place] [address] [place] [phone] Lymphocytes Auto #/vol (Bld) 0.89 10*3/uL Low 1.00-4.00 [facility] Comment on above: Performed By: #### P T, PTT, LACT, CMP, MG1, PHOS, CBCDIF ####[place] [address] [place] [phone] Lymphocytes/100 WBC Auto (Bld) 6.3 % Normal [facility] Comment on above: Performed By: #### P T, PTT, LACT, CMP, MG1, PHOS, CBCDIF ####[place] [address], [place] [phone] MCH Auto Entitic mass (RBC) 30.5 pG Normal 26.0-34.0 [facility] Comment on above: Performed By: #### P T, PTT, LACT, CMP, MG1, PHOS, CBCDIF ####[place] [address] [place], [place] [phone] MCHC Auto mass conc (RBC) 31.8 g/dL Normal 30.5-36.0 [facility] Comment on above: Performed By: #### P T, PTT, LACT, CMP, MG1, PHOS, CBCDIF ####[place] [address] [place] [phone] MCV Auto Entitic volume (RBC) 96.0 fL Normal 80.0-100.0 [facility] Comment on above: Performed By: #### P T, PTT, LACT, CMP, MG1, PHOS, CBCDIF ####[place] [address] [phone] Monocytes/100 WBC Auto (Bld) 7.1 % Normal [facility] Comment on above: Performed By: #### P T, PTT, LACT, CMP, MG1, PHOS, CBCDIF ####[place] [address] [place] [phone] Neutrophils/100 WBC Auto (Bld) 70.5 % Normal [facility] Comment on above: Performed By: #### P T, PTT, LACT, CMP, MG1, PHOS, CBCDIF ####[place] [address] [place] [phone] Platelet mean volume Auto Entitic volume (Bld) 10.8 fL Normal 9.0-12.7 [facility] Comment on above: Performed By: #### P T, PTT, LACT, CMP, MG1, PHOS, CBCDIF ####[address] [phone] Platelets Auto #/vol (Bld) Platelet estimate adequate Normal [facility] Comment on above: Performed By: #### P T, PTT, LACT, CMP, MG1, PHOS, CBCDIF ####[address] [phone] Platelets Auto #/vol (Bld) 284 10*3/uL Normal 150-400 [facility] Comment on above: Performed By: #### P T, PTT, LACT, CMP, MG1, PHOS, CBCDIF ####[address] [phone] Polychromasia Slight Normal [facility] Comment on above: Performed By: #### P T, PTT, LACT, CMP, MG1, PHOS, CBCDIF ####[address] [phone] RBC Auto #/vol (Bld) 2.72 10*6/uL Low 4.20-6.00 Cl [facility] Comment on above: Performed By: #### P T, PTT, LACT, CMP, MG1, PHOS, CBCDIF ####[address] [address] [phone] WBC Auto #/vol (Bld) 14.18 10*3/uL High 3.70-11.00 [facility] Comment on above: Performed By: #### P T, PTT, LACT, CMP, MG1, PHOS, CBCDIF ####[address] [phone] CONSULT Abel 11-12-2017 Protein mass conc HNO ID: [id number] thor: Aubrey Lizarraga: NephrologyAuthor Type: PhysicianType: Consult Progress NoteFiled: 11/12/2017 12:26 PMNote Text:Renal Consults F/USept2017S: No major events. Polyuric. Improved azotemia. No uremic symptomsCurrent hospital medications:NaCl 0.9% iv infusion 150 mL/hr INTRAVENOUS CONTINUOUS[START ON 11/13/2017] methylPREDNISolone 32 mg tab(s) (MEDROL) 32 mg ORALDAILY[START ON 11/23/2017] methylPREDNISolone (MEDROL) tab(s) 24 mg 24 mg ORALDAILY[START ON 12/03/2017] methylPREDNISolone (MEDROL) tab(s) 12 mg 12 mg ORALDAILYpantoprazole 40 mg CUP (PROTONIX) 40 mg ORAL/FEEDING TUBE DAILY (6 AM)0.9% NaCl 10 mL 10 mL INTRAVENOUS q 12 H0.9% NaCl 20 mL 20 mL INTRAVENOUS PRNPHYSICAL EXAM:Patient Vitals for the past 24 hrs: BP Temp Temp src Pulse Resp SpO2 Rnrpik15/22/18 1130 - - - - - 93 % -11/12/17 1000 128/75 36.9 ?C (98.5 ?F) Oral 98 18 97 % -11/12/17 0517 134/76 36.6 ?C (97.8 ?F) Oral 83 18 97 % 93 kg (205 lb 0.4oz)11/11/17 2116 130/70 36.7 ?C (98 ?F) Oral 72 18 98 % -11/11/17 1800 133/69 36.2 ?C (97.2 ?F) Oral 76 18 98 % -11/11/17 1349 121/74 36.3 ?C (97.3 ?F) Oral 85 18 100 % -VS: Patient Vitals for the past 4 hrs: BP Pulse Temp Resp AlT22511/12/17 1130 - - - - 93 %11/12/17 1000 128/75 98 36.9 ?C (98.5 ?F) 18 97 %I/O:Intake/Output Summary (Last 24 hours) at 11/12/17 1222Last data filed at 11/12/17 1100 Gross per 24 hourIntake 730 mlOutput 3480 mlNet -2750 mlIntake/Output Summary (Last 24 hours) at 11/12/17 0659Last data filed at 11/12/17 0600 Gross per 24 hourIntake 1245 mlOutput 3300 mlNet -2055 mlGeneral: NADNeck: Trachea midline. No mass palpableLungs: Clear to auscultation, no crackles or wheezing.CV: normal, Regular rate and rhythm, no murmurs, clicks, or gallops.ACCESS: RIJ temp. No secretions.Abd: + bowel sounds, no distension.Neuro: no asterixis, no focal deficits.Ext: no edemaLABS:Recent Labs 11/11/18055CREAT 4.83* 5.46* 5.98* 5.93* --BUN 84* 80* 79* 74* --NA 141 141 143 143 --K 3.9 4.6 4.4 4.4 --CHLOR 105 103 106* 106* --CO2 22 21* 22 21* --GLUC 82 79 108* 106* --CA 8.4* 8.4* 7.9* 7.9* --MG 2.0 2.0 2.2 -- --P 4.8 5.4* 5.7* -- --ALB 2.0* 1.9* 2.2* -- --WBC 14.18* 12.08* 11.73* -- 9.95HB 8.3* 8.2* 7.9* -- 8.4*MCV 96.0 99.3 95.3 -- 94.2PLT 284 283 271 -- 272IMPRESSION: 57 year old male with h/o factor V leidin, s/p R TKA c/bpseudomonas UTI and right thigh abscess s/p multiple antibiotics c/bdesquamating rash concerning for DRESS vs SJS/TEN further c/b shock, DAYNA,transaminitis and RP bleed. Transferred to [facility] for furtther management.???Non oliguric DAYNA secondary to ischemic ATN from hypotension and RP bleed- Baseline SCr <1- Etiology likely 2/2 ?ischemic ATN in the setting of hypotension and RPbleed.- ?AIN vs parto of DRESS.- He did get steroids at the OSH after all antibiotics were stopped.- Patient also had proteinuria with UPC 3 gm at the OSH on 10/31.- started briefly on CVVHD 11/06 due to worsening solutes, hyperkalemia andoptimize volume.Post ATN polyuria. Improved azotemia. Good PO intake. Would stop IVF asthis will only increase solute burden and will probably perpetuatepolyuria. Please remove dialysis catheter now.Thank You for allowing us to participate in his care.Aubrey Tsai MD. FASN. [id number].Nephrology and Hypertension.November 12, 201712:22 PM Normal [facility] Comp Metabolic Panelon 11-12 Albumin mass conc 2.0 g/dL Low 3.9-4.9 [facility] Comment on above: Performed By: #### P T, PTT, LACT, CMP, MG1, PHOS, CBCDIF ####[address] [phone] ALP enzyme act/vol 276 U/L High 36-108 [facility] Comment on above: Performed By: #### P T, PTT, LACT, CMP, MG1, PHOS, CBCDIF ####[facility] [place], [place] [phone] ALT enzyme act/vol 48 U/L Normal 10-54 [facility] Comment on above: Performed By: #### P T, PTT, LACT, CMP, MG1, PHOS, CBCDIF ####[facility], [place] [phone] Anion gap 3 molar conc 14 mmol/L Normal 9-18 [facility] Comment on above: Performed By: #### P T, PTT, LACT, CMP, MG1, PHOS, CBCDIF ####[facility] [place], [place] [phone] AST enzyme act/vol 28 U/L Normal 14-40 [facility] Comment on above: Performed By: #### P T, PTT, LACT, CMP, MG1, PHOS, CBCDIF ####[place] [address] [address] [place] [phone] Bilirubin mass conc 2.4 mg/dL High 0.2-1.3 [facility] Comment on above: Performed By: #### P T, PTT, LACT, CMP, MG1, PHOS, CBCDIF ####[place] [phone] Calcium mass conc 8.4 mg/dL Low 8.5-10.2 [facility] Comment on above: Performed By: #### P T, PTT, LACT, CMP, MG1, PHOS, CBCDIF ####[place] [phone] Chloride molar conc 105 mmol/L Normal 97-105 [facility] Comment on above: Performed By: #### P T, PTT, LACT, CMP, MG1, PHOS, CBCDIF ####[place] [phone] CO2 molar conc 22 mmol/L Normal 22-30 [facility] Comment on above: Performed By: #### P T, PTT, LACT, CMP, MG1, PHOS, CBCDIF ####[place] [phone] Creatinine mass conc 4.83 mg/dL High 0.73-1.22 [facility] Comment on above: Performed By: #### P T, PTT, LACT, CMP, MG1, PHOS, CBCDIF ####[place] [phone] eGFR- Amer. 15 Normal [facility] Comment on above: Performed By: #### P T, PTT, LACT, CMP, MG1, PHOS, CBCDIF ####[address], [place] [phone] GFR/1.73 sq M predicted among non-blacks MDRD vol rate/area (S/P/Bld) 13 . Normal [facility] Comment on above: Result Comment: eGFR (Estimated GFR) Units of measure: mL/min/1.73 meters squaredeGFR is derived from the reexpressed MDRD Study equation using the following parameters: serum creatinine, age, gender and race. The creatinine assay has been calibrated to be traceable to IDMS.An eGFR <60 mL/min/1.73m2 for >3 months is consistent with chronic kidney disease. Refer to KDOQI guidelines for clinical interpretation.In patients with unstable renal function, e.g. those with acute kidney injury, the eGFR may not accurately reflect actual GFR. Performed By: #### P T, PTT, LACT, CMP, MG1, PHOS, CBCDIF ####[facility] [place], [place] [phone] Glucose mass conc 82 mg/dL Normal 74-99 [facility] Comment on above: Result Comment: The [place] Diabetes Association (ADA) provides guidance for cutoff values for fasting glucose and random glucose. The ADA defines fasting as no caloric intake for at least 8 hours. Fasting plasma glucose results between 100 to 125 mg/dL indicate increased risk for diabetes (prediabetes).Fasting plasma glucose results greater than or equal to 126 mg/dL meet the criteria for diagnosis of diabetes. In the absence of unequivocal hyperglycemia, results should be confirmed by repeat testing. In a patient with classic symptoms of hyperglycemia or hyperglycemic crisis, random plasma glucose results greater than or equal to 200 mg/dL meet the criteria for diagnosis of diabetes.Reference: Standards of Medical Care in Diabetes 2016, [place] Diabetes Association. Diabetes Care. 2016.39(Suppl 1). Performed By: #### P T, PTT, LACT, CMP, MG1, PHOS, CBCDIF ####[facility] [place], [place] [phone] Potassium molar conc 3.9 mmol/L Normal 3.7-5.1 [facility] Comment on above: Performed By: #### P T, PTT, LACT, CMP, MG1, PHOS, CBCDIF ####[place] [address] [place], [place] [phone] Protein mass conc 7.1 g/dL Normal 6.3-8.0 [facility] Comment on above: Performed By: #### P T, PTT, LACT, CMP, MG1, PHOS, CBCDIF ####[place] [phone] Sodium molar conc 141 mmol/L Normal 136-144 [facility] Comment on above: Performed By: #### P T, PTT, LACT, CMP, MG1, PHOS, CBCDIF ####[address] [phone] Urea nitrogen mass conc 84 mg/dL High 9-24 [facility] Comment on above: Performed By: #### P T, PTT, LACT, CMP, MG1, PHOS, CBCDIF ####[address] [phone] Magnesiumon 11-12-2017 Magnesium mass conc 2.0 mg/dL Normal 1.7-2.3 [facility] Comment on above: Performed By: #### P T, PTT, LACT, CMP, MG1, PHOS, CBCDIF ####[place] [phone] NURSING PROGon 11-12-2017 Protein mass conc HNO ID: [id number] thor: Cindy Jacobs, RNService: (none)Author Type: Registered NurseType: Nursing Progress NoteFiled: 11/12/2017 7:30 PMNote Text: Nursing Progress NotePatient Name: Hung PeckN: [id number] Location: H080 001/M687-59 IJ dialysis removed by MD Anoop with Cindy Rn [facility]. Insertion site clean and intact with no redness, swelling, orpain. Catheter removed by MD in sterile fashion. Catheter and tip intact.Pt tolerated well. No s/s of complications. RN held pressure for 10minutes, no signs of bleeding. Educated pt on symptoms to report to RN.Notified shift superintendent caustic cresylate RN to continue monitoring insertion site perprotocol.Check dressing at::2018:3520:0020:3021:30 This note was completed by: Cindy Jacobs RN Normal [facility] PROGRESSon 11-12-2017 Protein mass conc HNO ID: [id number] thor: Toro CooperService: General Internal MedicineAuthor Type: PhysicianType: Progress NotesFiled: 11/12/2017 12:09 PMNote Text:[facility] - [place]io BProgress NoteWeekdays 7 am - 5 pm/Weekend 7 am to 3 pm:Page [phone] (Felicia Romero MD) then Senior resident Ethan Davalos,at [id number] 5 pm to 7 am/Weekend 3 pm to 7 am:[employer] Pager [phone] NAME: Hung PeckMRN: [id number] DAY: DATE: 11/12/2017SERVICE TIME: 8:15 AMPlan for Today- Speak with nephro re: removal of RIJ- Correct excess volume losses, goal is no more than net neg 1L to preventfurther renal injury- Work with PT OT for appropriate dispo planning- No ppx or AC for FVL due to recent RP bleed- f/u nephro recsInterval Events- KASI overnight. HDS and afebrile. Patient feeling improved.- Rash improved- 3.3L urine out, net neg 2L. Already out 500cc this am, repeat labspending- Hgb stable- Anxious to work with PT.MedicationsreviewedCurren t Facility-Administered Medications:NaCl 0.9% iv infusion 150 mL/hr INTRAVENOUS CONTINUOUS[START ON 11/13/2017] methylPREDNISolone 32 mg tab(s) (MEDROL) 32 mg ORALDAILY[START ON 11/23/2017] methylPREDNISolone (MEDROL) tab(s) 24 mg 24 mg ORALDAILY[START ON 12/03/2017] methylPREDNISolone (MEDROL) tab(s) 12 mg 12 mg ORALDAILYpantoprazole 40 mg CUP (PROTONIX) 40 mg ORAL/FEEDING TUBE DAILY (6 AM)0.9% NaCl 10 mL 10 mL INTRAVENOUS q 12 H0.9% NaCl 20 mL 20 mL INTRAVENOUS PRNPhysical Exam 11/12/1804BP: 130/70 134/76 128/75Pulse: 72 83 98Resp: 18 18 18Temp: 36.7 ?C (98 ?F) 36.6 ?C (97.8 ?F) 36.9 ?C (98.5 ?F)TempSrc: Oral Oral OralSpO2: 98% 97% 97% 93%Weight: 93 kg (205 lb 0.4 oz)Height:General: No acute distress, [id number]: supple, no LAD, no JVDEyes: PERRLA, EOMILungs: clear to auscultation bilaterally, no wheezing, rhonchi or ralesHeart: RRR, normal S1 and S2, no murmurs, rubs or gallopsAbdomen: Soft, non-tender, non-distended. Bowel sounds normal. No ascites.No masses or hepatosplenomegaly.Extremiti es: Pulses intact and symmetric.Skin: +pale pink-red, flaking rash over arms, hands, chest, with notablered rash to L upper arm with sharp margins in size/shape of blood pressurecuffNeuro: No focal neurological deficits. CN II-XII grossly intact. Sensationand Strength grossly intact.Fluid BalanceIntake/Output Summary (Last 24 hours) at 11/12/17 1154Last data filed at 11/12/17 1100 Gross per 24 hourIntake 730 mlOutput 3480 mlNet -2750 mlLabsCBC, Coags, BMP, Mg, PhosRecent Labs 11/11/18055WBC 14.18* 12.08* 11.73*HB 8.3* 8.2* 7.9*HCT 26.1* 26.7* 24.5*PLT 284 283 271INR 1.2 1.1 1.2NA 141 141 143K 3.9 4.6 4.4CHLOR 105 103 106*CO2 22 21* 22BUN 84* 80* 79*CREAT 4.83* 5.46* 5.98*GLUC 82 79 108*CA 8.4* 8.4* 7.9*MG 2.0 2.0 2.2P 4.8 5.4* 5.7*Assessment and [id number] with past medical history of FVL (on coumadin long-term) c/b DVT/PE(, ) and R TKA recovery c/b thigh abscess s/p 4 weeks ABx (vanco,ceftriaxone, linesolid, doxy) c/b DRESS syndrome with transaminitis andoliguric DAYNA requiring CVVHD; now recovering on steroid taper, also nowproducing urine, per renal consider etiology DRESS AIN vs hypotensive ATN(due to acute blood loss). Recovery c/b RP bleed with supratheraputic INR(19.5) requiring many transfusions and coumadin reversal. Now off all AC.Monitoring Hb, renal status.Active Hospital Problems Diagnosis- Status post total right knee replacement Assessment: Unclear hx of PJI/thigh abscess. Patient had presented lateJuly with swelling and loss of mobility of joint. S/p IANDD 09/18 of thighfluid pocket, no revision to TKA, [facility]. S/p 4 weeks ABx (vanco, ceftriaxone, linezolid,doxy). CT OSH from 10/28 with reported right leg ?abscess/fluid collectionsuprapatellar space. No leukocytosis, no fevers, but + groin adenopathyseen on DVT studies. On PE, no signs erythema/swelling/pain.PLAN: ?-per patient/family, ID doctor informed them that they had completed allrequired ABx-R Knee XR UR-No ABX at this time- Mild protein-calorie malnutrition (HCC)- Retroperitoneal bleed Assessment:OSH CT A/P (11/03) with RP bleed in setting ofsupratherapeutic INR (19.5). S/p many transfusions at OSH and hereincluding PRBC, vitamin K, and FFP.PLAN:-Hb daily-IR consulted- no intervention at this time, continue medical management.-Vasc consulted - no intervention at this time, remain off ALL AC for 2-4weeks-F/u with Dr. Le (manages coumadin long-term) in 2 weeks-No evidence of acute clots on DVT study 11/07.- DAYNA (acute kidney injury) (HCC) Assessment: Nonoliguric DAYNA/ATN secondary to hemodynamic instability vsDRESS syndrome. Normal SCr at baseline. Started on CVVHD on 11/06 forhyperkalemia not responding to medical management. CVVHD stopped early on11/07 due to clots in filter. Per renal, no need for CVVHD (11/10) willcontinue to monitor. Patient urinating.PLAN:-CVVHD per renal, UO improving-Avoid Nephrotoxic agents-Renally dose meds EGFR 74-77-Pnaxiwtizf following, appreciate input.- Hepatitis Assessment: Likely 2/2 to DRESS. US (11/01) thickened GB wall with asmall amt of pericholecystic fluid. Mild hepatomegaly with with mild fattyinfiltration. Transaminase trending down, hyperbilirubinemia improving.Acute hep panel significant for previous B exposure, Hep C antibody +. ?USwith appropriate flow, no biliary dilation, non-specific GB wallthickening. ?PLAN:- Trend LFTs- Hepatology following, appreciate input.- Given 2 doses of Vit K, 11/06 and 11/07.- Factor V Leiden (HCC) Assessment: H/o Factor V Leiden with h/o PE/DVT on coumadin.Supratherapetic INR of 19 on presentation to OSH 10/28.PLAN:- Holding anticoagulation in setting of supratherapeutic INR and acuteblood loss anemia.- PAS and SHINE rand.- Encourage ambulation.- Updated Dr. Glez [phone], local physician who manages coumadin;apt in 2 weeks to consider restarting without bridge- Drug induced rash with eosinophilia and systemic symptoms Assessment: Suspected DRESS at OSH with fever, desquamating rash,peripheral eosinophilia, DAYNA, hepatitis in setting ofvanco/linezolid/ceftriaxon e/doxy therapy in 08/2017 for thigh abscess.Timeline most suggestive of vanc/ceftriaxone being culprit; by the timepatient started linezolid/doxy, he was already +rash, swelling.PLAN:?- Supportive management- Methylprednisolone 40 mg daily ?- Taper by 10 mg q10 days per Derm recs- Derm consulted, appreciate recommendations- Will need to follow up with Dermatology in 4-6 weeks, ~15 December. Makeappointment prior to DC.- Anemia due to blood loss Assessment: Due to RP bleed s/p many RBC, FFP transfusions.Plan:-Hb daily-Transfuse goal: Hb >7# Lines:Lines, Drains, and Airways Line Dialysis / Apheresis Double Lumen 11/05/17 1900 Assessment Non-tunneledRight Neck 6 days Peripheral 11/09/17 1600 Left Arm 20 Gauge 2 days Peripheral 11/09/17 1600 Right Arm 22 Gauge 2 days# VTE PPx: compression stockings, pneumatic devices# GI PPx: pantoprazole# Diet: Regular# Dispo: to appropriate level of care when medically stable, per PT/OThome with home PT# Code Status: Full codeCare plan coordinated under direct supervision of attending physician, Dr.Aaron Kenneth MD. Finalized addendum to follow.SIGNATURE: STACY Barba-2 Internal Medicine Resident PATIENT NAME: Hung CervantesATE: November 12, 2017 : 8:15 AM Pager: [phone] STAFF PHYSICIAN NOTE OF PERSONAL INVOLVEMENT IN CAREI have reviewed the progress note obtained and documented by the residentand I personally participated in the madrigal components. I have discussed thecase and management of the patient's care. The following comments reviseor confirm relevant madrigal components of their note.Urinating a LOT - per patient and also confirmed in records.Cr down to 4.8 K ok>3L UOP and net negative 2L. Will follow and give 1L IVF today.Working with nephrology to determine when dialysis catheter can be removed- thinking today or tomorrow?Hb stableRash resolving.PT/OTLikely dc early this coming weekRest as aboveSIGNATURE: Toro Cooper, MDPAGER: [id number] of SERVICE: November 12, 2017TIME of SERVICE: 12:09 PM Normal [facility] Phosphoruson 11-12-2017 Phosphate mass conc 4.8 mg/dL Normal 2.7-4.8 [facility] Comment on above: Performed By: #### P T, PTT, LACT, CMP, MG1, PHOS, CBCDIF ####[facility] [place], [place] [phone] Protimeon 11-12-2017 INR Coag RelTime (Bld) 1.2 {INR} Normal 0.9-1.3 [facility] Comment on above: Result Comment: Nini min K Antagonist (VKA) Therapeutic Range: INR 2 to 3 (Target INR of 2.5)Note: For patients treated with VKA drugs, such as warfarin, the [place] [employer] 2012 Guideline recommends a therapeutic INR range of 2 to 3 (target INR of 2.5). This recommendation includes high-risk patients with antiphospholipid syndrome with previous arterial or venous thromboembolism, current-generation mechanical or bioprosthetic aortic heart valve replacement.Note: Patients with mechanical aortic valve replacement and additional risk factors for thromboembolic events (atrial fibrillation, previous thromboembolism, LV dysfunction, hypercoagulable conditions) or an older generation mechanical AVR (i.e., ball in-Cage) or any mechanical MVR should have a INR therapeutic range of 2.5 to 3.5 (target INR of 3).Raghav GH, et al. Chest 2012, 141:7S-47SNishcarolyn RA, et al. [facility] 2017, 70: 252-289 Performed By: #### P T, PTT, LACT, CMP, MG1, PHOS, CBCDIF ####[facility] [place], [place] [phone] PT Sec 12.2 sec Normal 9.7-13.0 [facility] Comment on above: Performed By: #### P T, PTT, LACT, CMP, MG1, PHOS, CBCDIF ####[facility] [place], [place] [phone] CBC and Differentialon 11-11 Abs Baso 0.03 k/uL Normal <0.11 [facility] Comment on above: Performed By: #### P T, PTT, LACT, CMP, MG1, PHOS, CBCDIF ####[place] [address] [address] [place] [phone] Abs Haskell 1.00 k/uL High <0.87 [facility] Comment on above: Performed By: #### P T, PTT, LACT, CMP, MG1, PHOS, CBCDIF ####[place] [address] [address] [place] [phone] Abs Neut 8.95 k/uL High 1.45-7.50 [facility] Comment on above: Performed By: #### P T, PTT, LACT, CMP, MG1, PHOS, CBCDIF ####[address] [place] [phone] Absolute nRBC <0.01 Normal <0.01 [facility] Comment on above: Performed By: #### P T, PTT, LACT, CMP, MG1, PHOS, CBCDIF ####[place] [address] [address] [place] [phone] Basophils/100 WBC Auto (Bld) 0.2 % Normal [facility] Comment on above: Performed By: #### P T, PTT, LACT, CMP, MG1, PHOS, CBCDIF ####[place] [address] [address] [place] [phone] DTYPE Auto Diff Normal [facility] Comment on above: Performed By: #### P T, PTT, LACT, CMP, MG1, PHOS, CBCDIF ####[place] [address] [address] [place] [phone] Eosinophils Auto #/vol (Bld) 0.56 10*3/uL High <0.46 [facility] Comment on above: Performed By: #### P T, PTT, LACT, CMP, MG1, PHOS, CBCDIF ####[place] [address] [address] [place] [phone] Eosinophils/100 WBC Auto (Bld) 4.6 % Normal [facility] Comment on above: Performed By: #### P T, PTT, LACT, CMP, MG1, PHOS, CBCDIF ####[place] [address] [address] [place] [phone] Erythrocyte distribution width Auto Ratio (RBC) 19.9 % High 11.5-15.0 [facility] Comment on above: Performed By: #### P T, PTT, LACT, CMP, MG1, PHOS, CBCDIF ####[place] [address] [address] [place] [phone] Hematocrit Auto Volume Fraction (Bld) 26.7 % Low 39.0-51.0 [facility] Comment on above: Performed By: #### P T, PTT, LACT, CMP, MG1, PHOS, CBCDIF ####[place] [address] [address] [place] [phone] Hemoglobin mass conc (Bld) 8.2 g/dL Low 13.0-17.0 [facility] Comment on above: Performed By: #### P T, PTT, LACT, CMP, MG1, PHOS, CBCDIF ####[place] [address] [address] [place] [phone] Lymphocytes Auto #/vol (Bld) 1.54 10*3/uL Normal 1.00-4.00 [facility] Comment on above: Performed By: #### P T, PTT, LACT, CMP, MG1, PHOS, CBCDIF ####[place] [address] [address] [place] [phone] Lymphocytes/100 WBC Auto (Bld) 12.7 % Normal [facility] Comment on above: Performed By: #### P T, PTT, LACT, CMP, MG1, PHOS, CBCDIF ####[place] [address] [address] [place] [phone] MCH Auto Entitic mass (RBC) 30.5 pG Normal 26.0-34.0 [facility] Comment on above: Performed By: #### P T, PTT, LACT, CMP, MG1, PHOS, CBCDIF ####[facility]CS[address] [place], [place] [phone] MCHC Auto mass conc (RBC) 30.7 g/dL Normal 30.5-36.0 [facility] Comment on above: Performed By: #### P T, PTT, LACT, CMP, MG1, PHOS, CBCDIF ####[place] [address] [address] [place] [phone] MCV Auto Entitic volume (RBC) 99.3 fL Normal 80.0-100.0 [facility] Comment on above: Performed By: #### P T, PTT, LACT, CMP, MG1, PHOS, CBCDIF ####[place] [address] [address] [place] [phone] Monocytes/100 WBC Auto (Bld) 8.3 % Normal [facility] Comment on above: Performed By: #### P T, PTT, LACT, CMP, MG1, PHOS, CBCDIF ####[place] [address] [address] [place] [phone] Neutrophils/100 WBC Auto (Bld) 74.2 % Normal [facility] Comment on above: Performed By: #### P T, PTT, LACT, CMP, MG1, PHOS, CBCDIF ####[facility] [place] [phone] NRBCs 0.0 /100 WBC Normal 0 [facility] Comment on above: Performed By: #### P T, PTT, LACT, CMP, MG1, PHOS, CBCDIF ####[place] [address] [place] [phone] Platelet mean volume Auto Entitic volume (Bld) 11.3 fL Normal 9.0-12.7 [facility] Comment on above: Performed By: #### P T, PTT, LACT, CMP, MG1, PHOS, CBCDIF ####[address] [phone] Platelets Auto #/vol (Bld) 283 10*3/uL Normal 150-400 [facility] Comment on above: Performed By: #### P T, PTT, LACT, CMP, MG1, PHOS, CBCDIF ####[address] [phone] RBC Auto #/vol (Bld) 2.69 10*6/uL Low 4.20-6.00 Cl [facility] Comment on above: Performed By: #### P T, PTT, LACT, CMP, MG1, PHOS, CBCDIF ####[address] [phone] WBC Auto #/vol (Bld) 12.08 10*3/uL High 3.70-11.00 [facility] Comment on above: Performed By: #### P T, PTT, LACT, CMP, MG1, PHOS, CBCDIF ####[place] [id number] [place], [place] [phone] CONSULT PROGon 11-11-2017 Protein mass conc HNO ID: [id number] thor: Aubrey Miranda CalleService: NephrologyAuthor Type: PhysicianType: Consult Progress NoteFiled: 11/11/2017 2:16 PMNote Text:CONSULT PROGRESS NOTENEPHROLOGY SERVICESubjectiveINTERVAL HISTORY:Patient in no acute distressContinues to have good urine output, 1580 ccMEDICATIONS:Current hospital medications:[START ON 11/13/2017] methylPREDNISolone 32 mg tab(s) (MEDROL) 32 mg ORALDAILY[START ON 11/23/2017] methylPREDNISolone (MEDROL) tab(s) 24 mg 24 mg ORALDAILY[START ON 12/03/2017] methylPREDNISolone (MEDROL) tab(s) 12 mg 12 mg ORALDAILYpantoprazole 40 mg CUP (PROTONIX) 40 mg ORAL/FEEDING TUBE DAILY (6 AM)0.9% NaCl 3-5 mL 3-5 mL INTRAVENOUS q 12 H0.9% NaCl 10 mL 10 mL INTRAVENOUS q 12 H0.9% NaCl 20 mL 20 mL INTRAVENOUS PRNmethylPREDNISolone (MEDROL) tab(s) 40 mg 40 mg ORAL DAILYObjectivePHYSICAL EXAM:BP 126/66 Pulse (!) 53 Temp 37.2 ?C (98.9 ?F) (Oral) Resp 16 Ht 188 cm (6' 2) Wt 93.2 kg (205 lb 7.5 oz) SpO2 97% BMI 26.38kg/m?Intake/Output Summary (Last 24 hours) at 11/11/17 0646Last data filed at 11/11/17 0600 Gross per 24 hourIntake 1544 mlOutput 1580 mlNet -36 mlConstitutional: No acute distress, Responsive, Normal habitus.Neck: Supple without lymphadenopathy,Cardiovascul ar: RRR, normal S1 and S2, no murmurs, rubs, or gallopsRespiratory: Normal respiratory effort. Lungs clear bilaterally.Abdomen: Soft, non-tender, non-distended. Normal bowel sounds.Psychiatric: Alert and oriented x 3, normal mood/affect.Extremities: 1+ pitting edema bilaterally, going up prison up the shins.Peripheral vascular: 2+ radial and dorsalis pedis pulses bilaterally.Access: [facility] - 11/06, no erythema or swellingDATA:?Renal U/S (11/03/2017): No hydronephrosis, trace ascitesU/S Abd (11/03/2017): LARGE COMPLEX COLLECTION ALONG THE POSTERIOR LEFTLOWER QUADRANT, COMPATIBLE WITH PATIENT'S KNOWN RETROPERITONEAL HEMATOMA.Recent Labs 11/09/1822NA 143 143 140 138 136 -- 140K 4.4 4.4 4.7 4.8 4.6 -- 5.2*CHLOR 106* 106* 103 102 99 -- 104CO2 22 21* 24 25 23 -- 21*BUN 79* 74* 65* 53* 52* -- 65*CREAT 5.98* 5.93* 5.46* 4.56* 4.38* -- 5.48*GLUC 108* 106* 121* 101* 197* -- 97ANION 15 16 13 11 14 -- 15CA 7.9* 7.9* 7.7* 7.0* 7.4* -- 7.5*P 5.7* -- 5.9* 5.5* -- 5.6* 6.3*MG 2.2 -- 2.1 2.1 -- 2.0 2.2Recent Labs 11/09/1816WBC 11.73* 9.95 9.40HB 7.9* 8.4* 7.7*HCT 24.5* 26.1* 23.9*PLT 271 272 235Recent Labs 11/08/1821INR 1.2 1.2 1.3Recent Labs 3COLOR Senia*CLARITY Cloudy*UGLUC NegativeUBILI NegativeUKET NegativeSPGR 1.012UHB 2+*UPH 6.0UPROT 30*NITRITES NegativeLEUKEST 1+*UWBC 11-25*URBC >25*Recent Labs LACT 2.0Recent Labs 11/06/1809FER -- -- 1,435.0*TRANSFERSAT -- -- 29HB 7.9* < > 8.2*< > = values in this interval not displayed.Recent Labs 5CA 7.9*P 5.7*ALB 2.2*No results for input(s): BUNRAT, BUNPR, BUNPO in the last 168 hours.Recent Labs [id number] Positive*Assessment/Plan57 year old male with h/o factor V leidin, s/p R TKA c/b pseudomonas UTIand right thigh abscess s/p multiple antibiotics c/b desquamating rashconcerning for DRESS vs SJS/TEN further c/b shock, DAYNA, transaminitis andRP bleed. Transferred to [facility] for furtther management.??Non oliguric DAYNA secondary to ischemic ATN from hypotension and RP bleed- Baseline SCr <1- Etiology likely 2/2 ischemic ATN in the setting of hypotension and RPbleed.- Possibly AIN (peripheral eosinophilia at the OSH, no urine eosinophildocumented).- He did get steroids at the OSH after all antibiotics were stopped.- Cr was improving on transfer here but has started worsening again likelyfrom RP bleed and acute anemia.- Patient also had proteinuria with UPC 3 gm at the OSH on 10/31.Autoimmune work up sent at the OSH pending (daughter will try to get usthe results).- started briefly on CVVHD 11/06 due to worsening solutes, hyperkalemia andoptimize volume.?PLAN- continue to hold HD- Monitor UO I/Os to assess renal recovery- Dose medications for eGFR 20-30ml/min- Renal Diet for now- Daily weightsConsent for DIRECTOR CAREER:DIRECTOR CAREER initiation date: 11/06Consent obtained and in EMR.Aguilar Blanca MDNephrology AND Hypertension Fellow, [id number] 20176:46 AMNEPHROLOGY STAFF PHYSICIAN NOTE OF PERSONAL INVOLVEMENT IN CAREI have reviewed the history and physical examination obtained anddocumented by Dr. Blanca and I personally participated in the keycomponents. I have discussed the case and management of the patient'scare. The following comments revise or confirm relevant madrigal components ofthe note.- Agree with above findings, assessment and plan of care, as amended.Continues non oliguric. No uremic symptoms. Slightly improved renalsolutes/azotemia. Will continue to hold on DIRECTOR CAREER for now.Thank You for allowing us to participate in his care.Aubrey Tsai MD. FASN. [id number] and Hypertension.November 11, 20172:15 PM Normal [facility] Comp Metabolic Panelon 11-11 Albumin mass conc 1.9 g/dL Low 3.9-4.9 [facility] Comment on above: Performed By: #### P T, PTT, LACT, CMP, MG1, PHOS, CBCDIF ####[facility] [place], [place] [phone] ALP enzyme act/vol 312 U/L High 36-108 [facility] Comment on above: Performed By: #### P T, PTT, LACT, CMP, MG1, PHOS, CBCDIF ####[address], [place] [phone] ALT enzyme act/vol 56 U/L High 10-54 [facility] Comment on above: Performed By: #### P T, PTT, LACT, CMP, MG1, PHOS, CBCDIF ####[address] [phone] Anion gap 3 molar conc 17 mmol/L Normal 9-18 [facility] Comment on above: Performed By: #### P T, PTT, LACT, CMP, MG1, PHOS, CBCDIF ####[address] [phone] AST enzyme act/vol 31 U/L Normal 14-40 [facility] Comment on above: Performed By: #### P T, PTT, LACT, CMP, MG1, PHOS, CBCDIF ####[place] [phone] Bilirubin mass conc 2.8 mg/dL High 0.2-1.3 [facility] Comment on above: Performed By: #### P T, PTT, LACT, CMP, MG1, PHOS, CBCDIF ####[place] [phone] Calcium mass conc 8.4 mg/dL Low 8.5-10.2 [facility] Comment on above: Performed By: #### P T, PTT, LACT, CMP, MG1, PHOS, CBCDIF ####[address] [phone] Chloride molar conc 103 mmol/L Normal 97-105 [facility] Comment on above: Performed By: #### P T, PTT, LACT, CMP, MG1, PHOS, CBCDIF ####[facility] Ave[address] [place], [place] [phone] CO2 molar conc 21 mmol/L Low 22-30 [facility] Comment on above: Performed By: #### P T, PTT, LACT, CMP, MG1, PHOS, CBCDIF ####[facility] [phone] Creatinine mass conc 5.46 mg/dL High 0.73-1.22 [facility] Comment on above: Performed By: #### P T, PTT, LACT, CMP, MG1, PHOS, CBCDIF ####[place] [address] [phone] eGFR- Amer. 13 [facility] Comment on above: Performed By: #### P T, PTT, LACT, CMP, MG1, PHOS, CBCDIF ####[facility]CS[address], [place] [phone] GFR/1.73 sq M predicted among non-blacks MDRD vol rate/area (S/P/Bld) 11 . Normal [facility] Comment on above: Result Comment: eGFR (Estimated GFR) Units of measure: mL/min/1.73 meters squaredeGFR is derived from the reexpressed MDRD Study equation using the following parameters: serum creatinine, age, gender and race. The creatinine assay has been calibrated to be traceable to IDMS.An eGFR <60 mL/min/1.73m2 for >3 months is consistent with chronic kidney disease. Refer to KDOQI guidelines for clinical interpretation.In patients with unstable renal function, e.g. those with acute kidney injury, the eGFR may not accurately reflect actual GFR. Performed By: #### P T, PTT, LACT, CMP, MG1, PHOS, CBCDIF ####[facility], [place] [phone] Glucose mass conc 79 mg/dL Normal 74-99 [facility] Comment on above: Result Comment: The [place] Diabetes Association (ADA) provides guidance for cutoff values for fasting glucose and random glucose. The ADA defines fasting as no caloric intake for at least 8 hours. Fasting plasma glucose results between 100 to 125 mg/dL indicate increased risk for diabetes (prediabetes).Fasting plasma glucose results greater than or equal to 126 mg/dL meet the criteria for diagnosis of diabetes. In the absence of unequivocal hyperglycemia, results should be confirmed by repeat testing. In a patient with classic symptoms of hyperglycemia or hyperglycemic crisis, random plasma glucose results greater than or equal to 200 mg/dL meet the criteria for diagnosis of diabetes.Reference: Standards of Medical Care in Diabetes 2016, [place] Diabetes Association. Diabetes Care. 2016.39(Suppl 1). Performed By: #### P T, PTT, LACT, CMP, MG1, PHOS, CBCDIF ####[address] [phone] Potassium molar conc 4.6 mmol/L Normal 3.7-5.1 [facility] Comment on above: Performed By: #### P T, PTT, LACT, CMP, MG1, PHOS, CBCDIF ####[address] [phone] Protein mass conc 7.3 g/dL Normal 6.3-8.0 [facility] Comment on above: Performed By: #### P T, PTT, LACT, CMP, MG1, PHOS, CBCDIF ####[facility] [place], [place] [phone] Sodium molar conc 141 mmol/L Normal 136-144 [facility] Comment on above: Performed By: #### P T, PTT, LACT, CMP, MG1, PHOS, CBCDIF ####[place] [address] [place], [place] [phone] Urea nitrogen mass conc 80 mg/dL High 9-24 [facility] Comment on above: Performed By: #### P T, PTT, LACT, CMP, MG1, PHOS, CBCDIF ####[facility] [address], [place] [phone] Magnesiumon 11-11-2017 Magnesium mass conc 2.0 mg/dL Normal 1.7-2.3 [facility] Comment on above: Performed By: #### P T, PTT, LACT, CMP, MG1, PHOS, CBCDIF ####[facility] [place], [place] [phone] NURSING PROGon 11-11-2017 Protein mass conc HNO ID: [id number] thor: Allen (Rn) Reji, RNService: NursingAuthor Type: Registered NurseType: Nursing Progress NoteFiled: 11/11/2017 2:37 AMNote Text: Nursing Progress NotePatient Name: Hung PeckMRN: [id number] Location: [place] [id number] Daily Note: Pt AANDOX3. Labs monitored daily. VSS WNL. Pt on continuouspulse ox. SAT's WNL. No c/o of pain at this time. Skin care in place. PtQ2 turn. Safety precautions in place. Bed in low position. Call light inreach. Pt remain stable. Will continue to monitorThis note was completed by: Allen Mendoza RN Normal [facility] NUTRITIONon 11-11-2017 NUTRITION HNO ID: [id number] thor: Rojas Leach) DimattioService: Nutrition TherapyAuthor Type: Registered DietitianType: NutritionFiled: 11/11/2017 2:13 PMNote Text:NUTRITION THERAPY PROGRESS NOTESERVICE DATE: 11/11/2017SERVICE TIME: 9:15amRECOMMENDED DIAGNOSIS: MILD PROTEIN-CALORIE MALNUTRITION per RegisteredDietitian on 11/07/17NUTRITION CARE PLANIntervention:1. Continue Renal diet as tolerated (Monitor ability to liberalize diet toregular)2. Continue Ensure Enlive (350 calories + 20gm protein) + Nepro QD (425calories + 19gm protein each) + Magic Cup BID (290 calories + 9gm proteineach)3. Encourage PO intake and diet complianceCoordination of Care:PCNAs- please record percentage of meal intakes and supplement intakes inI/Os for most accurate nutrient analysis - thank youMonitor and Evaluation:Goal: Meet >75% of estimated needsMonitor fluid/electrolyte balanceMonitor labs, I/Os, vital signs, weightDischarge Nutrition Recommendations:To be determinedInterval History: Pt seen at bedside reporting of a healthy appetite.Denied any chewing or swallowing difficulties, along with any nausea orvomiting. Pt is able to fee himself independently. Tolerating nutritionsupplements well. Will continue to monitor and encourage adequate energyintake and diet compliance.Nutritional Intake: Per Epic, pt is eating between 50-100% of documentedmeals and tolerating nutrition supplements well.UBW 200 lbs/90.9 kgDosing Weight: 90.9?kgEstimated kilocalorie needs: 4760-4653?kilocalories determined by25-30?kcal/kgEstimated protein needs: 109-137?grams determined by 1.2-1.5g/kg?Dosing?weightEst imated fluid needs: 2300?milliliters based on 1 mL per kcalCurrent Diet Order DIET RENAL Order Specific Question: Renal Answer: 90GM PRO / 2GM K / 2 GM NA / LOW PHOSPHORUSLines and Drains:Peripheral 11/09/17 1600 Right Arm 22 Gauge (Active)Peripheral 11/09/17 1600 Left Arm 20 Gauge (Active)Height: 188 cm (6' 2)Admission Weight: 94.9 kg (209 lb 3.5 oz)Current Weight: 93.2 kg (205 lb 7.5 oz)Body mass index is 26.38 kg/m?. overweightRecent Labs [id number] 79BUN 80*CREAT 5.46*NA 141K 4.6CHLOR 103CO2 21*ALB 1.9*P 5.4*HB 8.2*HCT 26.7*WBC 12.08*MG 2.0ALLERGIESAllergen Reactions- Linezolid Rash Concern of DRESS- Vancomycin Rash Concern of DRESSCurrent Facility-Administered Medications:pantoprazole 40 mg CUP (PROTONIX) 40 mg ORAL/FEEDING TUBE DAILY (6 AM)0.9% NaCl 10 mL 10 mL INTRAVENOUS q 12 H0.9% NaCl 20 mL 20 mL INTRAVENOUS PRNmethylPREDNISolone (MEDROL) tab(s) 40 mg 40 mg ORAL DAILYVitamin and Mineral Labs in the past year:Recent Labs [id number] 156*FE 46FER 1,435.0*MNT Billing Type: Re-assess/15 min 2 unitsSIGNATURE: Rojas Contreras RD PATIENT NAME: Hung AhumadaoneDATE: November 11, 2017 : 2:06 PM PAGER: [phone] Normal [facility] PROGRESSon 11-11-2017 Protein mass conc HNO ID: [id number] thor: Toro CooperService: General Internal MedicineAuthor Type: PhysicianType: Progress NotesFiled: 11/11/2017 12:30 PMNote Text:[facility] [place] - [place]tilio DProgress NoteWeekdays 7 am - 5 pm/Weekend 7 am to 3 pm:Page [phone] (Felicia Romero MD) then Senior resident Ethan Davalos,at [phone] 5 pm to 7 am/Weekend 3 pm to 7 am:Otilio [employer] Platem[employer] Pager [phone] NAME: Hung PeckMRN: [id number] DAY: 8 DATE: 11/11/2017SERVICE TIME: 7:15 AMPlan for Today- Continue to monitor vitals, Hb daily- No ppx or AC for FVL due to recent RP bleed- Monitor UO, electrolytes, volume status: no dialysis 11/10 per Renal,will continue to evaluateInterval Events- KASI overnight. HDS and afebrile. Patient feeling improved. Overall rashimproved per patient, notable red rash on arm reported to be where bloodpressure cuff was previously, clear margins consistent with this,/patient report was tight/wet for some days at OSH. Nephrologyrecommended no need for lasix yesterday. Patient producing good urine.MedicationsreviewedCur rent Facility-Administered Medications:[START ON 11/13/2017] methylPREDNISolone 32 mg tab(s) (MEDROL) 32 mg ORALDAILY[START ON 11/23/2017] methylPREDNISolone (MEDROL) tab(s) 24 mg 24 mg ORALDAILY[START ON 12/03/2017] methylPREDNISolone (MEDROL) tab(s) 12 mg 12 mg ORALDAILYpantoprazole 40 mg CUP (PROTONIX) 40 mg ORAL/FEEDING TUBE DAILY (6 AM)0.9% NaCl 3-5 mL 3-5 mL INTRAVENOUS q 12 H0.9% NaCl 10 mL 10 mL INTRAVENOUS q 12 H0.9% NaCl 20 mL 20 mL INTRAVENOUS PRNmethylPREDNISolone (MEDROL) tab(s) 40 mg 40 mg ORAL DAILYPhysical Exam 11/10/1816BP: 120/62 121/60 111/77 126/66Pulse: 75 68 61 (!) 53Resp: 18 18 18 16Temp: 36.2 ?C (97.1 ?F) 36.9 ?C (98.5 ?F) 36.8 ?C (98.3 ?F) 37.2 ?C (98.9?F)TempSrc: Oral Oral Oral OralSpO2: 98% 98% 97% 97%Weight:Height:General: No acute distress, TFTMRm6Lpwb: supple, no LAD, no JVDEyes: PERRLA, EOMILungs: clear to auscultation bilaterally, no wheezing, rhonchi or ralesHeart: RRR, normal S1 and S2, no murmurs, rubs or gallopsAbdomen: Soft, non-tender, non-distended. Bowel sounds normal. No ascites.No masses or hepatosplenomegaly.Extremiti es: Pulses intact and symmetric.Skin: +pale pink-red, flaking rash over arms, hands, chest, with notablered rash to L upper arm with sharp margins in size/shape of blood pressurecuffNeuro: No focal neurological deficits. CN II-XII grossly intact. Sensationand Strength grossly intact.Fluid BalanceIntake/Output Summary (Last 24 hours) at 11/11/17 0715Last data filed at 11/11/17 0600 Gross per 24 hourIntake 1544 mlOutput 1580 mlNet -36 mlLabsCBC, Coags, BMP, Mg, PhosRecent Labs 347 251WBC 11.73* -- 9.95 9.40HB 7.9* -- 8.4* 7.7*HCT 24.5* -- 26.1* 23.9*PLT 271 -- 272 235INR 1.2 -- -- 1.2NA 143 143 -- 140K 4.4 4.4 -- 4.7CHLOR 106* 106* -- 103CO2 22 21* -- 24BUN 79* 74* -- 65*CREAT 5.98* 5.93* -- 5.46*GLUC 108* 106* -- 121*CA 7.9* 7.9* -- 7.7*MG 2.2 -- -- 2.1P 5.7* -- -- 5.9*Assessment and Ggmc10vjB with past medical history of FVL (on coumadin long-term) c/b DVT/PE(', ) and R TKA recovery c/b thigh abscess s/p 4 weeks ABx (vanco,ceftriaxone, linesolid, doxy) c/b DRESS syndrome with transaminitis andoliguric DAYNA requiring CVVHD; now recovering on steroid taper, also nowproducing urine, per renal consider etiology DRESS AIN vs hypotensive ATN(due to acute blood loss). Recovery c/b RP bleed with supratheraputic INR(19.5) requiring many transfusions and coumadin reversal. Now off all AC.Monitoring Hb, renal status.Active Hospital Problems Diagnosis- Status post total right knee replacement Assessment: Unclear hx of PJI/thigh abscess. Patient had presented lateJuly with swelling and loss of mobility of joint. S/p IANDD 09/18 of thighfluid pocket, no revision to TKA, [facility]. S/p 4 weeks ABx (vanco, ceftriaxone, linezolid,doxy). CT OSH from 10/28 with reported right leg ?abscess/fluid collectionsuprapatellar space. No leukocytosis, no fevers, but + groin adenopathyseen on DVT studies. On PE, no signs erythema/swelling/pain.PLAN: ?-per patient/family, ID doctor informed them that they had completed allrequired ABx-R Knee XR UR-No ABX at this time- Mild protein-calorie malnutrition (HCC)- Retroperitoneal bleed Assessment:OSH CT A/P (11/03) with RP bleed in setting ofsupratherapeutic INR (19.5). S/p many transfusions at OSH and hereincluding PRBC, vitamin K, and FFP.PLAN:-Hb daily-IR consulted- no intervention at this time, continue medical management.-Vasc consulted - no intervention at this time, remain off ALL AC for 2-4weeks-F/u with Dr. Le (manages coumadin long-term) in 2 weeks-No evidence of acute clots on DVT study 11/07.- DAYNA (acute kidney injury) ([facility]) Assessment: Nonoliguric DAYNA/ATN secondary to hemodynamic instability vsDRESS syndrome. Normal SCr at baseline. Started on CVVHD on 11/06 forhyperkalemia not responding to medical management. CVVHD stopped early on11/07 due to clots in filter. Per renal, no need for CVVHD (11/10) willcontinue to monitor. Patient urinating.PLAN:-CVVHD per renal, UO improving-Avoid Nephrotoxic agents-Renally dose meds EGFR 00-08-Lxpteiwhgh following, appreciate input.- Hepatitis Assessment: Likely 2/2 to DRESS. US (11/01) thickened GB wall with asmall amt of pericholecystic fluid. Mild hepatomegaly with with mild fattyinfiltration. Transaminase trending down, hyperbilirubinemia improving.Acute hep panel significant for previous B exposure, Hep C antibody +. ?USwith appropriate flow, no biliary dilation, non-specific GB wallthickening. ?PLAN:- Trend LFTs- Hepatology following, appreciate input.- Given 2 doses of Vit K, 11/06 and 11/07.- Factor V Leiden (HCC) Assessment: H/o Factor V Leiden with h/o PE/DVT on coumadin.Supratherapetic INR of 19 on presentation to OSH 10/28.PLAN:- Holding anticoagulation in setting of supratherapeutic INR and acuteblood loss anemia.- PAS and SHINE rand.- Encourage ambulation.- Updated Dr. Glez [phone], local physician who manages coumadin;apt in 2 weeks to consider restarting without bridge- Drug induced rash with eosinophilia and systemic symptoms Assessment: Suspected DRESS at OSH with fever, desquamating rash,peripheral eosinophilia, DAYNA, hepatitis in setting ofvanco/linezolid/ceftriaxon e/doxy therapy in 08/2017 for thigh abscess.Timeline most suggestive of vanc/ceftriaxone being culprit; by the timepatient started linezolid/doxy, he was already +rash, swelling.PLAN:?- Supportive management- Methylprednisolone 40 mg daily ?- Taper by 10 mg q10 days per Derm recs- Derm consulted, appreciate recommendations- Will need to follow up with Dermatology in 4-6 weeks, ~15 December. Makeappointment prior to DC.- Anemia due to blood loss Assessment: Due to RP bleed s/p many RBC, FFP transfusions.Plan:-Hb daily-Transfuse goal: Hb >7# Lines:Lines, Drains, and Airways Line Dialysis / Apheresis Double Lumen 11/05/17 1900 Assessment Non-tunneledRight Neck 5 days Peripheral 11/09/17 1600 Left Arm 20 Gauge 1 day Peripheral 11/09/17 1600 Right Arm 22 Gauge 1 day# VTE PPx: compression stockings, pneumatic devices# GI PPx: pantoprazole# Diet: Regular# Dispo: to appropriate level of care when medically stable, per PT/OThome with home PT# Code Status: Full codeCare plan coordinated under direct supervision of attending physician, Dr.Aaron Kenneth MD. Finalized addendum to follow.SIGNATURE: MIGDALIA Alan-1 Resident PATIENT NAME: Hung AhumadaoneDATE: November 11, 2017 : 7:15 AM Pager: [phone] STAFF PHYSICIAN NOTE OF PERSONAL INVOLVEMENT IN CAREI have reviewed the progress note obtained and documented by the residentand I personally participated in the madrigal components. I have discussed thecase and management of the patient's care. The following comments reviseor confirm relevant madrigal components of their note.Continued renal recovery. Ok urine output. Will remove NT HD line in theright IJ in concert with nephrology - likely in 1-2 days.Hb stableRash improvingPT/OT rec home with home PT/OTRest as aboveSIGNATURE: Toro Cooper, MDPAGER: [phone] of SERVICE: November 11, 2017TIME of SERVICE: 12:30 PM Normal [facility] Phosphoruson 11-11-2017 Phosphate mass conc 5.4 mg/dL High 2.7-4.8 [facility] Comment on above: Performed By: #### P T, PTT, LACT, CMP, MG1, PHOS, CBCDIF ####[facility] [place], [place] [phone] Protimeon 11-11-2017 INR Coag RelTime (Bld) 1.1 {INR} Normal 0.9-1.3 [facility] Comment on above: Result Comment: Nini min K Antagonist (VKA) Therapeutic Range: INR 2 to 3 (Target INR of 2.5)Note: For patients treated with VKA drugs, such as warfarin, the [place] [employer] 2012 Guideline recommends a therapeutic INR range of 2 to 3 (target INR of 2.5). This recommendation includes high-risk patients with antiphospholipid syndrome with previous arterial or venous thromboembolism, current-generation mechanical or bioprosthetic aortic heart valve replacement.Note: Patients with mechanical aortic valve replacement and additional risk factors for thromboembolic events (atrial fibrillation, previous thromboembolism, LV dysfunction, hypercoagulable conditions) or an older generation mechanical AVR (i.e., ball in-Cage) or any mechanical MVR should have a INR therapeutic range of 2.5 to 3.5 (target INR of 3).Raghav GH, et al. Chest 2012, 141:7S-47SNishcarolyn RA, et al. [facility] 2017, 70: 252-289 Performed By: #### P T, PTT, LACT, CMP, MG1, PHOS, CBCDIF ####[facility] [place], [place] [phone] PT Sec 12.0 sec Normal 9.7-13.0 [facility] Comment on above: Performed By: #### P T, PTT, LACT, CMP, MG1, PHOS, CBCDIF ####[facility] [address] [place], [place] [phone] Basic Metabolic Panlon 11-10 Anion gap 3 molar conc 16 mmol/L Normal 9-18 Cl [facility] Comment on above: Performed By: #### P T, PTT, LACT, CMP, MG1, PHOS, CBCDIF ####[place] [address]CS[address] [place], [place] [phone] Calcium mass conc 7.9 mg/dL Low 8.5-10.2 [facility] Comment on above: Performed By: #### P T, PTT, LACT, CMP, MG1, PHOS, CBCDIF ####[place] [address] [address], [place] [phone] Chloride molar conc 106 mmol/L High 97-105 [facility] Comment on above: Performed By: #### P T, PTT, LACT, CMP, MG1, PHOS, CBCDIF ####[place] [address] [address], [place] [phone] CO2 molar conc 21 mmol/L Low 22-30 [facility] Comment on above: Performed By: #### P T, PTT, LACT, CMP, MG1, PHOS, CBCDIF ####[place] [address] [address], [place] [phone] Creatinine mass conc 5.93 mg/dL High 0.73-1.22 [facility] Comment on above: Performed By: #### P T, PTT, LACT, CMP, MG1, PHOS, CBCDIF ####[place] [address] [address] [place], [place] [phone] eGFR- Amer. 12 Normal [facility] Comment on above: Performed By: #### P T, PTT, LACT, CMP, MG1, PHOS, CBCDIF ####[place] [address] [address], [place] [phone] GFR/1.73 sq M predicted among non-blacks MDRD vol rate/area (S/P/Bld) 10 . Normal [facility] Comment on above: Result Comment: eGFR (Estimated GFR) Units of measure: mL/min/1.73 meters squaredeGFR is derived from the reexpressed MDRD Study equation using the following parameters: serum creatinine, age, gender and race. The creatinine assay has been calibrated to be traceable to IDMS.An eGFR <60 mL/min/1.73m2 for >3 months is consistent with chronic kidney disease. Refer to KDOQI guidelines for clinical interpretation.In patients with unstable renal function, e.g. those with acute kidney injury, the eGFR may not accurately reflect actual GFR. Performed By: #### P T, PTT, LACT, CMP, MG1, PHOS, CBCDIF ####[facility] [place], [place] [phone] Glucose mass conc 106 mg/dL High 74-99 [facility] Comment on above: Result Comment: The [place] Diabetes Association (ADA) provides guidance for cutoff values for fasting glucose and random glucose. The ADA defines fasting as no caloric intake for at least 8 hours. Fasting plasma glucose results between 100 to 125 mg/dL indicate increased risk for diabetes (prediabetes).Fasting plasma glucose results greater than or equal to 126 mg/dL meet the criteria for diagnosis of diabetes. In the absence of unequivocal hyperglycemia, results should be confirmed by repeat testing. In a patient with classic symptoms of hyperglycemia or hyperglycemic crisis, random plasma glucose results greater than or equal to 200 mg/dL meet the criteria for diagnosis of diabetes.Reference: Standards of Medical Care in Diabetes 2016, [place] Diabetes Association. Diabetes Care. 2016.39(Suppl 1). Performed By: #### P T, PTT, LACT, CMP, MG1, PHOS, CBCDIF ####[facility] [address], [place] [phone] Potassium molar conc 4.4 mmol/L Normal 3.7-5.1 [facility] Comment on above: Performed By: #### P T, PTT, LACT, CMP, MG1, PHOS, CBCDIF ####[facility], [place] [phone] Sodium molar conc 143 mmol/L Normal 136-144 [facility] Comment on above: Performed By: #### P T, PTT, LACT, CMP, MG1, PHOS, CBCDIF ####[facility] [place], [place] [phone] Urea nitrogen mass conc 74 mg/dL High 9-24 [facility] Comment on above: Performed By: #### P T, PTT, LACT, CMP, MG1, PHOS, CBCDIF ####[facility] [address] [place], [place] [phone] CASE MANAGEMon 11-10-2017 Protein mass conc HNO ID: [id number] thor: Cris (Maria Del Rosario) ChantelSer: (none)Author Type: Social WorkerType: Care Mgt Progress NoteFiled: 11/10/2017 12:20 PMNote Text:CARE MANAGEMENT PROGRESS NOTESERVICE DATE: 11/10/2017SERVICE TIME: 12:13 pm LOS: 7 daysNeeds Prior to Discharge: Home Care Order [facility] todayPatient is 57 yo male with a past medical history significant for 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.Referral sent.Will need home care orderSIGNATURE: LANCE Wong PATIENT NAME: Hung AhumadaoneDATE: November 10, 2017 : 12:13 PM PAGER/CONTACT #: [phone] Normal [facility] CBC and Differentialon 11-10 Abs Baso 0.03 k/uL Normal <0.11 [facility] Comment on above: Performed By: #### P T, PTT, LACT, CMP, MG1, PHOS, CBCDIF ####[facility] [address] [place], [place] [phone] Abs Haskell 1.16 k/uL High <0.87 [facility] Comment on above: Performed By: #### P T, PTT, LACT, CMP, MG1, PHOS, CBCDIF ####[address] [phone] Abs Neut 8.21 k/uL High 1.45-7.50 [facility] Comment on above: Performed By: #### P T, PTT, LACT, CMP, MG1, PHOS, CBCDIF ####[address] [phone] Absolute nRBC <0.01 Normal <0.01 [facility] Comment on above: Performed By: #### P T, PTT, LACT, CMP, MG1, PHOS, CBCDIF ####[place] [phone] Basophils/100 WBC Auto (Bld) 0.3 % Normal [facility] Comment on above: Performed By: #### P T, PTT, LACT, CMP, MG1, PHOS, CBCDIF ####[address] [phone] DTYPE Auto Diff Normal [facility] Comment on above: Performed By: #### P T, PTT, LACT, CMP, MG1, PHOS, CBCDIF ####[place] [phone] Eosinophils Auto #/vol (Bld) 0.64 10*3/uL High <0.46 [facility] Comment on above: Performed By: #### P T, PTT, LACT, CMP, MG1, PHOS, CBCDIF ####[address], [place] [phone] Eosinophils/100 WBC Auto (Bld) 5.5 % Normal [facility] Comment on above: Performed By: #### P T, PTT, LACT, CMP, MG1, PHOS, CBCDIF ####[place] [address] [address] [place] [phone] Erythrocyte distribution width Auto Ratio (RBC) 20.2 % High 11.5-15.0 [facility] Comment on above: Performed By: #### P T, PTT, LACT, CMP, MG1, PHOS, CBCDIF ####[place] [address] [address] [place] [phone] Hematocrit Auto Volume Fraction (Bld) 24.5 % Low 39.0-51.0 [facility] Comment on above: Performed By: #### P T, PTT, LACT, CMP, MG1, PHOS, CBCDIF ####[address], [place] [phone] Hemoglobin mass conc (Bld) 7.9 g/dL Low 13.0-17.0 [facility] Comment on above: Performed By: #### P T, PTT, LACT, CMP, MG1, PHOS, CBCDIF ####[address] [phone] Lymphocytes Auto #/vol (Bld) 1.69 10*3/uL Normal 1.00-4.00 [facility] Comment on above: Performed By: #### P T, PTT, LACT, CMP, MG1, PHOS, CBCDIF ####[place] [address] [address] [place] [phone] Lymphocytes/100 WBC Auto (Bld) 14.4 % Normal [facility] Comment on above: Performed By: #### P T, PTT, LACT, CMP, MG1, PHOS, CBCDIF ####[place] [address] [address] [place], [place] [phone] MCH Auto Entitic mass (RBC) 30.7 pG Normal 26.0-34.0 [facility] Comment on above: Performed By: #### P T, PTT, LACT, CMP, MG1, PHOS, CBCDIF ####[facility] [place] [phone] MCHC Auto mass conc (RBC) 32.2 g/dL Normal 30.5-36.0 [facility] Comment on above: Performed By: #### P T, PTT, LACT, CMP, MG1, PHOS, CBCDIF ####[place] [address] [place] [phone] MCV Auto Entitic volume (RBC) 95.3 fL Normal 80.0-100.0 [facility] Comment on above: Performed By: #### P T, PTT, LACT, CMP, MG1, PHOS, CBCDIF ####[place] [address] [place] [phone] Monocytes/100 WBC Auto (Bld) 9.9 % Normal [facility] Comment on above: Performed By: #### P T, PTT, LACT, CMP, MG1, PHOS, CBCDIF ####[place] [address] [place] [phone] Neutrophils/100 WBC Auto (Bld) 69.9 % Normal [facility] Comment on above: Performed By: #### P T, PTT, LACT, CMP, MG1, PHOS, CBCDIF ####[place] [address] [place] [phone] NRBCs 0.0 /100 WBC Normal 0 [facility] Comment on above: Performed By: #### P T, PTT, LACT, CMP, MG1, PHOS, CBCDIF ####[facility] [place] [phone] Platelet mean volume Auto Entitic volume (Bld) 11.0 fL Normal 9.0-12.7 [facility] Comment on above: Performed By: #### P T, PTT, LACT, CMP, MG1, PHOS, CBCDIF ####[place] [address] [address], [place] [phone] Platelets Auto #/vol (Bld) 271 10*3/uL Normal 150-400 [facility] Comment on above: Performed By: #### P T, PTT, LACT, CMP, MG1, PHOS, CBCDIF ####[facility] [place], [place] [phone] RBC Auto #/vol (Bld) 2.57 10*6/uL Low 4.20-6.00 [facility] Comment on above: Performed By: #### P T, PTT, LACT, CMP, MG1, PHOS, CBCDIF ####[facility] [place], [place] [phone] WBC Auto #/vol (Bld) 11.73 10*3/uL High 3.70-11.00 [facility] Comment on above: Performed By: #### P T, PTT, LACT, CMP, MG1, PHOS, CBCDIF ####[facility] [place], [place] [phone] CNCOon 11-10-2017 CNCO Letter TextHospital Discharge Appointments [facility] of [facility]2017Harris Hung No Zitabilly - [id number],Thank you for choosing [facility] for your healthcare.Upon discharge, we arranged for your care to be continued at the followingfacilities:Date Time Hospital/Location Provider Specialty Phone Number11/17/17 3:[address] [phone] Flex burnette [facility] Care Team Liaison Normal [facility] CONSULT PROGon 11-10-2017 Protein mass conc HNO ID: [id number] thor: Aubrey Miranda CalleService: NephrologyAuthor Type: PhysicianType: Consult Progress NoteFiled: 11/10/2017 1:53 PMNote Text:CONSULT PROGRESS NOTENEPHROLOGY SERVICESERVICE DATE: 11/10/2017SERVICE TIME: 8:24 AMSubjectiveINTERVAL HISTORY: Briefly this is a 57 y/o M in which Nephrology was consulted regardingAcute Kidney Injury. 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 States he started experiencing high fevers and anerythematous rash all around his body (he is not sure how/where itstarted), it was mildly itchy and he has not had that before. He wasdischarged this time around on ziavox and doxycycline for which he was onapproximately a week.He then presented on 10/28 to [facility] with swelling and bleeding of histongue, lethargy, swollen face and hands and a supra-therapeutic INR of19.5 and worsening of his rash with desquamation? His antibiotics werestopped and he was started on IV methylprednisone which he received for afew days. His labs were significant for an DAYNA (2.27 on admission, peakaround 2.5, and baseline is 0.7) with transaminitis. His hospital coursewas complicated by hypotension and he was discovered to have a RP hematomawith a Hgb of 5.4He was transferred to [facility] for further care and continued requiring bloodtransfusions an nephrology was consulted.Creatinine on admission: 2.7Creatinine at the time of initial Nephro Consult: 4.74Renal U/S: increased parenchymal echogenicity bilaterallyNo contrast exposureDiagnosed with oliguric DAYNA 2/2 to pre-renal azotemia vs ATN, possible AIN(peripheral eosinophilia, no urine eos documented)He was then stated on CVVHD after failing the lasix challenge on 11/06 andthe hyperkalemiastarted on CVVHD 11/06, QD 3000, UF 80, access RIJ temp DC 1 L UOP after 120 of lasixCVVHD was stopped d/t clots, no evidence of acute DVT.He is making greater lani 1L of UOP everyday, and is clearing his soluteswell with K of 4.4, Speech And Language Assistant og 5.98, and INR now is 1.2. UA on pyuria, andhematuria.MEDICATIONS:[facility] medications:[START ON 11/13/2017] methylPREDNISolone 32 mg tab(s) (MEDROL) 32 mg ORALDAILY[START ON 11/23/2017] methylPREDNISolone (MEDROL) tab(s) 24 mg 24 mg ORALDAILY[START ON 12/03/2017] methylPREDNISolone (MEDROL) tab(s) 12 mg 12 mg ORALDAILYpantoprazole 40 mg CUP (PROTONIX) 40 mg ORAL/FEEDING TUBE DAILY (6 AM)0.9% NaCl 3-5 mL 3-5 mL INTRAVENOUS q 12 H0.9% NaCl 10 mL 10 mL INTRAVENOUS q 12 H0.9% NaCl 20 mL 20 mL INTRAVENOUS PRNmethylPREDNISolone (MEDROL) tab(s) 40 mg 40 mg ORAL DAILYObjectivePHYSICAL EXAM:BP 117/68 Pulse 66 Temp 36.6 ?C (97.8 ?F) (Oral) Resp 20 Ht188 cm (6' 2) Wt 93.2 kg (205 lb 7.5 oz) SpO2 98% BMI 26.38kg/m?Intake/Output Summary (Last 24 hours) at 11/10/17 0824Last data filed at 11/10/17 0800 Gross per 24 hourIntake 780 mlOutput 1606 mlNet -826 mlConstitutional: No acute distress, Responsive, Normal habitus.Neck: Supple without lymphadenopathy, he has a triple lumen IJ on theright side of the neck.Cardiovascular: RRR, normal S1 and S2, no murmurs, rubs, or gallopsRespiratory: Normal respiratory effort. Lungs clear bilaterally.Abdomen: Soft, non-tender, non-distended. Normal bowel sounds.Psychiatric: Alert and oriented x 3, normal mood/affect.Extremities: 1+ pitting edema bilaterally, going up prison up the shins.Peripheral vascular: 2+ radial and dorsalis pedis pulses bilaterally.No complains of metallic taste, improving appetite.DATA:Diagnostic tests reviewed for today's visit:DVT Scan b/l (11/07/2017):RIGHT SIDE - DEEP VEINSNegative for acute deep vein thrombosis.Clinical correlation is advised; no previous scans for comparison; chronicpost-thrombotic change in the femoral vein at the mid thigh.Clinical correlation is advised; no previous scans for comparison; chronicpost-thrombotic change in the popliteal vein.Clinical correlation is advised; no previous scans for comparison; chronicpost-thrombotic change in the gastrocnemius veins at the knee crease.Duplicated femoral vein.Only segments visualized of the posterior tibial veins and peroneal veins.Multiple enlarged lymph nodes noted in the groin with the largestmeasuringapproximatel y: 2.5 x 1.6 x 0.9 cm.LEFT SIDE - DEEP VEINSTechnically limited study. Negative for acute deep vein thrombosis invesselsvisualized.Clinical correlation is advised; no previous scans for comparison; chronicpost-thrombotic change in the femoral vein from mid to distal.Clinical correlation is advised; no previous scans for comparison; chronicpost-thrombotic change in the popliteal vein.Clinical correlation is advised; no previous scans for comparison; chronicpost-thrombotic change in the gastrocnemius veins at the knee crease.Chronic deep?vein thrombosis noted in two sets of gastrocnemius veins in the kneecrease.Unable to visualize the posterior tibial veins from proximal to mid.Unable to visualize the peroneal veins.Multiple enlarged lymph nodes noted in the groin with the largestmeasuringapproximatel y: 2.3 x 1.8 x 0.9 cm.?Renal U/S (11/03/2017): No hydronephrosis, trace ascitesU/S Abd (11/03/2017): LARGE COMPLEX COLLECTION ALONG THE POSTERIOR LEFTLOWER QUADRANT, COMPATIBLE WITH PATIENT'S KNOWN RETROPERITONEAL HEMATOMA.Recent Labs 11/09/1822NA 143 143 140 138 136 -- 140K 4.4 4.4 4.7 4.8 4.6 -- 5.2*CHLOR 106* 106* 103 102 99 -- 104CO2 22 21* 24 25 23 -- 21*BUN 79* 74* 65* 53* 52* -- 65*CREAT 5.98* 5.93* 5.46* 4.56* 4.38* -- 5.48*GLUC 108* 106* 121* 101* 197* -- 97ANION 15 16 13 11 14 -- 15CA 7.9* 7.9* 7.7* 7.0* 7.4* -- 7.5*P 5.7* -- 5.9* 5.5* -- 5.6* 6.3*MG 2.2 -- 2.1 2.1 -- 2.0 2.2Recent Labs 11/09/1816WBC 11.73* 9.95 9.40HB 7.9* 8.4* 7.7*HCT 24.5* 26.1* 23.9*PLT 271 272 235Recent Labs 11/08/1821INR 1.2 1.2 1.3 < > 2.5*APTT -- -- -- -- 40.7*< > = values in this interval not displayed.Recent Labs OLOR Senia*CLARITY Cloudy*UGLUC NegativeUBILI NegativeUKET NegativeSPGR 1.012UHB 2+*UPH 6.0UPROT 30*NITRITES NegativeLEUKEST 1+*UWBC 11-25*URBC >25*Recent Labs 11/03/1813LACT 2.0 4.7* 4.9*Recent Labs 11/06/1809FER -- -- 1,435.0*TRANSFERSAT -- -- 29HB 7.9* < > 8.2*< > = values in this interval not displayed.Recent Labs 5CA 7.9*P 5.7*ALB 2.2*No results for input(s): BUNRAT, BUNPR, BUNPO in the last 168 hours.Recent Labs [id number] Positive*Assessment/Plan57 year old male with h/o factor V leidin, s/p R TKA c/b pseudomonas UTIand right thigh abscess s/p multiple antibiotics c/b desquamating rashconcerning for DRESS vs SJS/TEN further c/b shock, DAYNA, transaminitis andRP bleed. Transferred to [facility] for furtther management.??DAYNA , oliguric, UOP imrpved with lasix- Baseline Cr <1- Etiology likely 2/2 ischemic ATN in the setting of hypotension and RPbleed. Possibly AIN (peripheral eosinophilia at the OSH, no urine eosdocumented). He did get steroids at the OSH after all antibiotics werestopped. Cr was improving on transfer here but has started worsening againlikely from RP bleed and acute anemia. Intertestingly, the patient alsohad proteinuria with UPC 3 gm at the OSH on 10/31. Autoimmune work up sentat the OSH pending (daughter will try to get us the results).- started on CVVHD 11/06 due to worsening solutes, hyperkalemia andoptimize volume.?He is now doing well without CVVHD and without any additional lasixadministration. He is producing urine, no evidence of acidosis, andclearing his solutes well. He does not require any dialysis today, howeverit is uncertain whether or not he will do so in the future.?PLAN1. Check Maf and phos daily and replete as needed- Dose medications for eGFR 20-30ml/min- Renal Diet for now- Daily weights- Strict I/O- No need for dialysis today as mentioned above, however we will continueto follow along.Consent for DIRECTOR CAREER:DIRECTOR CAREER initiation date: 11/06Consent obtained and in EMR.SIGNATURE: Dimitris Sharma MD PATIENT NAME: Hung AhumadaoneDATE: November 10, 2017 : 8:24 AM PAGER: [id number] STAFF PHYSICIAN NOTE OF PERSONAL INVOLVEMENT IN CAREI have reviewed the history and physical examination obtained anddocumented by Dr. Sharma and I personally participated in the keycomponents. I have discussed the case and management of the patient'scare. The following comments revise or confirm relevant madrigal components ofthe note.- Agree with above findings, assessment and plan of care, as amended.Transferred from ICU. Non oliguric DAYNA now. Azotemia stable. No uremia. Will hold on DIRECTOR CAREER for now. Make sure he's on renal diet and also I/Osaccurately.Thank You for allowing us to participate in his care.Aubrey Tsai MD. FASN. [id number] and Hypertension.November 10, 20171:51 PM Normal [facility] Comp Metabolic Panelon 11-10 Albumin mass conc 2.2 g/dL Low 3.9-4.9 [facility] Comment on above: Performed By: #### P T, PTT, LACT, CMP, MG1, PHOS, CBCDIF ####[place] [address] [address], [place] [phone] ALP enzyme act/vol 369 U/L High 36-108 [facility] Comment on above: Performed By: #### P T, PTT, LACT, CMP, MG1, PHOS, CBCDIF ####[address] [place], [place] [phone] ALT enzyme act/vol 68 U/L High 10-54 [facility] Comment on above: Performed By: #### P T, PTT, LACT, CMP, MG1, PHOS, CBCDIF ####[place] [address], [place] [phone] Anion gap 3 molar conc 15 mmol/L Normal 9-18 [facility] Comment on above: Performed By: #### P T, PTT, LACT, CMP, MG1, PHOS, CBCDIF ####[address] [place], [place] [phone] AST enzyme act/vol 31 U/L Normal 14-40 [facility] Comment on above: Performed By: #### P T, PTT, LACT, CMP, MG1, PHOS, CBCDIF ####[place] [address] [place], [place] [phone] Bilirubin mass conc 2.9 mg/dL High 0.2-1.3 [facility] Comment on above: Performed By: #### P T, PTT, LACT, CMP, MG1, PHOS, CBCDIF ####[place] [address], [place] [phone] Calcium mass conc 7.9 mg/dL Low 8.5-10.2 [facility] Comment on above: Performed By: #### P T, PTT, LACT, CMP, MG1, PHOS, CBCDIF ####[place] [address], [place] [phone] Chloride molar conc 106 mmol/L High 97-105 [facility] Comment on above: Performed By: #### P T, PTT, LACT, CMP, MG1, PHOS, CBCDIF ####[place] [address], [place] [phone] CO2 molar conc 22 mmol/L Normal 22-30 [facility] Comment on above: Performed By: #### P T, PTT, LACT, CMP, MG1, PHOS, CBCDIF ####[address] [phone] Creatinine mass conc 5.98 mg/dL High 0.73-1.22 [facility] Comment on above: Performed By: #### P T, PTT, LACT, CMP, MG1, PHOS, CBCDIF ####[address] [place], [place] [phone] eGFR- Amer. 12 Normal [facility] Comment on above: Performed By: #### P T, PTT, LACT, CMP, MG1, PHOS, CBCDIF ####[place] [address] [place], [place] [phone] GFR/1.73 sq M predicted among non-blacks MDRD vol rate/area (S/P/Bld) 10 . Normal [facility] Comment on above: Result Comment: eGFR (Estimated GFR) Units of measure: mL/min/1.73 meters squaredeGFR is derived from the reexpressed MDRD Study equation using the following parameters: serum creatinine, age, gender and race. The creatinine assay has been calibrated to be traceable to IDMS.An eGFR <60 mL/min/1.73m2 for >3 months is consistent with chronic kidney disease. Refer to KDOQI guidelines for clinical interpretation.In patients with unstable renal function, e.g. those with acute kidney injury, the eGFR may not accurately reflect actual GFR. Performed By: #### P T, PTT, LACT, CMP, MG1, PHOS, CBCDIF ####[facility] [place], [place] [phone] Glucose mass conc 108 mg/dL High 74-99 [facility] Comment on above: Result Comment: The [place] Diabetes Association (ADA) provides guidance for cutoff values for fasting glucose and random glucose. The ADA defines fasting as no caloric intake for at least 8 hours. Fasting plasma glucose results between 100 to 125 mg/dL indicate increased risk for diabetes (prediabetes).Fasting plasma glucose results greater than or equal to 126 mg/dL meet the criteria for diagnosis of diabetes. In the absence of unequivocal hyperglycemia, results should be confirmed by repeat testing. In a patient with classic symptoms of hyperglycemia or hyperglycemic crisis, random plasma glucose results greater than or equal to 200 mg/dL meet the criteria for diagnosis of diabetes.Reference: Standards of Medical Care in Diabetes 2016, [place] [employer]. Diabetes Care. 2016.39(Suppl 1). Performed By: #### P T, PTT, LACT, CMP, MG1, PHOS, CBCDIF ####[facility] [place], [place] [phone] Potassium molar conc 4.4 mmol/L Normal 3.7-5.1 [facility] Comment on above: Performed By: #### P T, PTT, LACT, CMP, MG1, PHOS, CBCDIF ####[facility] [place], [place] [phone] Protein mass conc 7.4 g/dL Normal 6.3-8.0 [facility] Comment on above: Performed By: #### P T, PTT, LACT, CMP, MG1, PHOS, CBCDIF ####[facility] [place], [place] [phone] Sodium molar conc 143 mmol/L Normal 136-144 [facility] Comment on above: Performed By: #### P T, PTT, LACT, CMP, MG1, PHOS, CBCDIF ####[facility] [place], [place] [phone] Urea nitrogen mass conc 79 mg/dL High 9-24 [facility] Comment on above: Performed By: #### P T, PTT, LACT, CMP, MG1, PHOS, CBCDIF ####[facility] [address] [place], [place] [phone] HISTORY PHYSICALon HISTORY PHYSICAL HNO ID: [id number] thor: Toro CooperSerasime: General Internal MedicineAuthor Type: PhysicianType: HANDPFiled: 11/10/2017 11:42 AMNote Text: Medicine Laquey - TuckerHistory and Physical ExaminationPRIMARY SERVICE:PATIENT NAME: Hung PeckMRN: [id number] DATE: 11/10/2017SERVICE TIME: 12:04 AM HPI:Hung Peck is a 57 year old male with pertinent PMH of- Factor V Leiden c/b DVT and PE on coumadin- Right Total Knee Replacement 07/2017 c/b Pseudomonas UTI infection08/2017, reexploration 08/2017 d/t concern of joint infection. Negative forjoint infection, but found to have R. Thigh Abscess and d/c'ed onCeftriaxone and Vanco. All cultures have been negative.- Re-admitted to OSH in 09/2017 with fever and rash, concern for allergy toVanco. Antibiotics changed to Zyvox and Doxycycline PO and patient wasdischarged. Rash worsened, patient saw outpatient provider who wasconcerned for allergy to Zyvox, Zyvox was d/c'ed 10/19 d/t concern of SJS.Patient was continued on PO Doxycycline.Presented to OSH on 10/28 with increased lethargy, swollen hands, face,tongue, new fever. In the ED he was found to have INR of 19.5. He wasgiven Vit K and his coumadin was held. He was also noted to havetransaminitis. CT of the right lower extremity demonstrated again aconcern for abscess and was started on doxycyline and Zosyn. He was notedto be hypotensive, with sbp ~100's, received 3.5L of fluid and started onnorepi. He was admitted to the MICU for treatment of septic shock. Heremained on Doxy and Zosyn and transiently on pressor support fortreatment of treatment of abscess. All of his cultures were negative. Stan developed a desquamating rash concerning for DRESS vs SJS/TEN. He wasalso noted to have worsening eosinophilia, worsening transaminitis, DAYNA,proteinuria. All of his antibiotics were stopped and he was started onIV Methylpred 40mg daily. The patient continued to improve. His liverenzymes peaked on 10/31 with AST 2034/ ALT 863/ Alk Phos 553 and sCr peakedat 2.57. Except his t-bili continued. General surgery evaluated him d/tthickened gallbladder and pericholecystic fluid and did not think he hadacute cholecystitis.?He had a CT a/p on 11/03 and there was concern for R/P bleed. He was foundto have a hgb of 5.4 and received 2 units of PRBC and 2 of FFP for an INRof 7.9. He was transferred to [facility] for further management. ONadmission, he was HDS, not on pressors. He was placed on 50% VM.11/03: Admitted to MICU from OSH for RP bleed11/04: Hgb drop, transfused 1 PRBC, 2 FFP.11/05: Hgb fell to 6.4 overnight, transfused 1 unit PRBC11/06: Hgb 6.7 overnight, transfused 1U PRBCs, Cr and BUN continue toincrease, UOP decreasing, K 5.8, phos 6.3, LFTs trending down.11/07: Still dropping counts. Holding Vit K and consulting VascularMedicine. Following up with IR on options to control bleeding. Gettingsecond read on CT ABD given ongoing left sided abdominal pain. Started onCVVHD for hyperkalemia.11/08: CVVHD stopped d/t clots. No evidence of acute DVT. Per vascularmedicine, to follow up with Dr. Glez in several weeks and plan torestart coumadin in 3-4 weeks with out bridge.11/09: Doing well. No further drop in HGB, last transfused on 11/07. Stillwith some small amount of blood from urinary meatus, no post void bladderresidual, increasing urine output. Following up with ortho on CT femurreport from OSH re: abscess. Afebrile, no leukocytosis, no pain.Upon current presentation patinet was in no acute distress. He stated thathe felt fine and was glad to the out of the MICU. He states he felt ok.Denies any chest pain, fevers, ab pain, nausea, vomiting. PAST MEDICAL HISTORYDiagnosis Date- Factor V Leiden (HCC)PAST SURGICAL HISTORYProcedure Laterality Date- TOTAL KNEE REPLACEMENT Right No family history on file.Social HistorySubstance Use Topics- Smoking status: Not on file- Smokeless tobacco: Not on file- Alcohol use Not on fileALLERGIESAllergen Reactions- Linezolid Rash Concern of DRESS- Vancomycin Rash Concern of DRESS MEDICATIO NS:PRIOR TO ADMISSION MEDICATIONS:No prescriptions on file.INPATIENT MEDICATIONS:Current hospital medications:[APR Hold due to Transfer] methylPREDNISolone 32 mg tab(s) (MEDROL) 32 mgORAL DAILY[APR Hold due to Transfer] methylPREDNISolone (MEDROL) tab(s) 24 mg 24 mgORAL DAILY[APR Hold due to Transfer] methylPREDNISolone (MEDROL) tab(s) 12 mg 12 mgORAL DAILY[APR Hold due to Transfer] pantoprazole 40 mg CUP (PROTONIX) 40 mgORAL/FEEDING TUBE DAILY (6 AM)[APR Hold due to Transfer] potassium chloride ER 40 mEq tab(s) (K-DUR,KLOR-CON) 40 mEq ORAL/FEEDING TUBE q 2 H PRN[MAR Hold due to Transfer] magnesium sulfate in water 4-6 g in sterilewater 50 ml 4-6 g INTRAVENOUS PRN[APR Hold due to Transfer] 0.9% NaCl 3-5 mL 3-5 mL INTRAVENOUS q 12 H[APR Hold due to Transfer] 0.9% NaCl 10 mL 10 mL INTRAVENOUS q 12 H[APR Hold due to Transfer] 0.9% NaCl 20 mL 20 mL INTRAVENOUS PRN[MAR Hold due to Transfer] dextrose 50% in water 25-50 mL syringe 12.5-25g INTRAVENOUS PRN[MAR Hold due to Transfer] dextrose 40 % 15 g 15 g ORAL PRN[APR Hold due to Transfer] glucagon 1 mg injection (GLUCAGEN) 1 mgSUBCUTANEOUS PRN[APR Hold due to Transfer] oxyCODONE IR 5-10 mg tab(s) (ROXICODONE) 5-10mg ORAL/FEEDING TUBE q 4 H PRN[MAR Hold due to Transfer] HYDROmorphone 0.5-1 mg injection (DILAUDID)0.5-1 mg INTRAVENOUS q 4 H PRN[MAR Hold due to Transfer] methylPREDNISolone (MEDROL) tab(s) 40 mg 40 mgORAL DAILY REVIEW OF SYSTEMS:Constitutional: No weight loss, malaise or fevers.HEENT: Negative for frequent or significant headachesRespiratory: Negative for cough, wheezing, or shortness of breathCardiovascular: Positive for leg swellingGastrointestinal: Negative for abdominal discomfort, blood in stools orblack stools or change in bowel habitsGenitourinary: No history of dysuria, frequency, or incontinenceEndocrine: Negative for cold or heat intolerance, polyuria, polydipsiaand goiterHematologic: Negative for prolonged bleeding, bruising easily or swollennodesNeurologic: No history or headaches, syncope, paralysis, seizures ortremorsIntegumentary: Negative for lesions, rash, and itching. VITAL SIGNS:Patient Vitals for the past 24 hrs: BP Temp Temp src Pulse Resp SpO2 Nnrdas32/19/18 2200 133/63 - - 67 12 98 % -11/09/17 2100 134/72 - - 72 12 99 % -11/09/17 2000 131/68 37.5 ?C (99.5 ?F) Oral 80 13 97 % -11/09/17 1900 135/66 - - 86 14 100 % -11/09/17 1800 139/71 - - 83 17 100 % -11/09/17 1700 134/69 - - 78 19 96 % -11/09/17 1600 129/71 37.1 ?C (98.8 ?F) Oral 78 12 99 % -11/09/17 1500 131/74 - - 84 14 99 % -11/09/17 1400 147/78 - - 77 12 99 % -11/09/17 1300 122/68 - - 88 17 98 % -11/09/17 1200 114/60 36.7 ?C (98.1 ?F) Oral 81 - 97 % -11/09/17 1100 116/62 - - 85 - 99 % -11/09/17 1000 119/70 - - (!) 126 11 98 % -11/09/17 0900 123/65 - - 85 22 98 % -11/09/17 0800 122/65 36.9 ?C (98.4 ?F) Oral 67 13 97 % -11/09/17 0700 124/64 - - 66 27 99 % -11/09/17 0600 126/66 - - 75 18 97 % -11/09/17 0500 124/67 - - 71 21 96 % -11/09/17 0400 122/60 36.8 ?C (98.2 ?F) - 72 13 97 % -11/09/17 0300 117/70 - - 88 14 98 % -11/09/17 0200 121/65 - - 76 11 99 % -11/09/17 0100 126/63 - - 77 13 95 % 98.2 kg (216 lb 7.9 oz)Last 12 Encounter Wt Readings: Date: Wt: 11/03/2017 98.2 kg (216 lb 7.9 oz)PHYSICAL EXAM:GEN: White male appearing stated age in NADHEENT: MMM. Anicteric.NECK: No thyromegaly or nodularity. No JVD. No carotid bruits.CARDIAC: RRR. S1/S2, NMRGC.PULM: CTAB, no crackles or wheezes. Normal work of breathing.ABD: S, NT, Mildly distended.EXT: 2+ radial pulses. +1 pitting edemaSKIN: erythematous sloughing skinNEURO: Alert and oriented to person, place, time. Grossly non-focal motorand sensory exam.PSYCH: Appropriate mood and affect. LAB RESULTS:Recent Labs 11/08/1821WBC 9.95 9.40 9.02 8.68 -- 10.04 -- 10.65HB 8.4* 7.7* 7.8* 7.6* -- 8.1* < > 6.8*HCT 26.1* 23.9* 24.3* 22.5* -- 24.3* < > 20.2*PLT 272 235 217 209 -- 188 -- 212NA -- 140 -- 138 136 -- -- 140K -- 4.7 -- 4.8 4.6 -- -- 5.2*CHLOR -- 103 -- 102 99 -- -- 104CO2 -- 24 -- 25 23 -- -- 21*CREAT -- 5.46* -- 4.56* 4.38* -- -- 5.48*P -- 5.9* -- 5.5* -- 5.6* -- 6.3*BUN -- 65* -- 53* 52* -- -- 65*GLUC -- 121* -- 101* 197* -- -- 97TPROT -- 7.4 -- 7.0 -- -- -- 7.0ALB -- 2.1* -- 1.8* -- -- -- 1.8*MG -- 2.1 -- 2.1 -- 2.0 -- 2.2CA -- 7.7* -- 7.0* 7.4* -- -- 7.5*ALKPHOS -- 461* -- 506* -- -- -- 529*TBILI -- 3.4* -- 4.2* -- -- -- 5.7*AST -- 42* -- 49* -- -- -- 57*ALT -- 86* -- 98* -- -- -- 119*INR -- 1.2 -- 1.3 -- -- -- 1.4*< > = values in this interval not displayed.No results found for: TSHNo results found for: HBA1C Assessmen t AND Plan:Retroperitoneal bleed: OSH CT A/P (11/03) with RP bleed in setting ofsupratherapeutic INR (19.5) and liver injury secondary to DRESS.PLAN:- Trend HGB q 12 hours.- IR consulted- no intervention at this time, continue medical management.- Will plan to have a follow up visit with Dr. Glez several weeks postdischarge with a plan to restart coumadin in 3-4 weeks, without bridge.- No evidence of acute clots on DVT study 11/07.#Hepatitis: Likely 2/2 to DRESS. US (11/01) thickened GB wall with a smallamt of pericholecystic fluid. Mild hepatomegaly with with mild fattyinfiltration. Evaluated by surg at OSH with no recommended intervention.Transaminase trending down, hyperbilirubinemia improving. Acute hep panelsignificant for previous B exposure, Hep C antibody +. US withappropriate flow, no biliary dilation, non-specific GB wall thickening.PLAN:- Trend LFTs- F/u auto immune hepatitis w/u.- Send 24 hour copper.- Send DARIELA- Hepatology following, appreciate input.- Given 2 doses of Vit K, 11/06 and 11/07. INR 1.2#DAYNA: Nonoliguric DAYNA/ATN secondary to hemodynamic instability vs DRESSsyndrome. Normal SCr at baseline. SCr peaked at OSH (10/30) at 2.7-continues to worsen. Started on CVVHD on 11/06 for hyperkalemia notresponding to medical management. CVVHD stopped on 11/07 with clottingfilter.PLAN:- Increasing urine output. Holding off dialysis, no acute indicationstoday. Maintain temporary access for now.- Avoid Nephrotoxic agents- Renally dose meds.- Nephrology following, appreciate input.- Follow autoimmune work-up.#Factor V Leiden: H/o Factor V Leiden with h/o PE/DVT on coumadin.Supratherapetic INR of 19 on presentation to OSH 10/28.PLAN:- Holding anticoagulation in setting of supratherapeutic INR and acuteblood loss anemia.- Consult Vascular Medicine. Will plan to hold anticoagulation for 3-4weeks, no need to bridge per Vascular Medicine.- PAS and SHINE rand.- Encourage ambulation.- Updated Dr. Glez [phone], local physician who manages coumadin.#Anemia due to blood loss: 2/2 to RP bleed- Trend CBC q12#Abscess: CT OSH from 10/28 with reported right leg abscess suprapatellarspace. No leukocytosis, no fevers, but + groin adenopathy seen on DVTstudies. No join pain, able to walk.PLAN:- Discussed with Ortho, obtaining right knee xray.- Right thigh US.- No ABX.#Drug induced rash with eosinophilia and systemic symptoms: SuspectedDRESS at OSH with fever, desquamating rash, peripheral eosinophilia, DAYNA,hepatitis in setting of vanco therapy in 08/2017 for thigh abscessPLAN:- Supportive management- Methylprednisolone 40 mg daily - Taper by 10 mg q10 days per Derm recs- Appreciate Derm recs.- Will need to follow up with Dermatology in 4-6 weeks, ~15 December. Makeappointment prior to DC.This is a preliminary note which reflects the assessment of the authoringmedicine resident only. The patient remains to be seen by and discussedwith internal medicine staff, at which time the final assessment andrecommendations may be edited.Ankush Santoyo MDInternal Medicine [id number]/12:04 AMSenior Addendum: Please see excellent above note by Dr. Ankush Santoyo for fullhistory.?HISTORY AND PHYSICAL EXAMINATION?PATIENT NAME: Hung PeckMRN: [id number] DATE: 11/10/2017SERVICE TIME: 2:00am?CC: MICU transfer for DRESS?Brief History:Mr. Peck is a 57 year old male with a past medical history significantfor:?- Factor V Leiden c/b DVT and PE on coumadin @ home- Right Total Knee Replacement 07/2017 c/b Pseudomonas UTI infection08/2017, reexploration 08/2017 d/t concern of joint infection. Negative forjoint infection, but found to have R. Thigh Abscess and d/c'ed onCeftriaxone and Vanco. All cultures have been negative.- Re-admitted to OSH in 09/2017 with fever and rash, concern for allergy toVanco. Antibiotics changed to Zyvox and Doxycycline PO and patient wasdischarged. Rash worsened, patient saw outpatient provider who wasconcerned for allergy to?Zyvox, Zyvox?was d/c'ed 10/19 d/t concern of SJS.Patient was continued on PO Doxycycline.?He was admitted to an OSH 10/28 with lethargy and diffuse swelling(inclduing tongue and face), as well as fever. INR was 19.5, andtransaminitis was noted. CT RLE showed abscess and patient was placed onDoxy and Zosyn. He became hypotensive and was admitted to OSH MICU insepetic shock. While in MICU on Zosyn/Doxy, he developed a desquamatingrash over much of body concerning for DRESS vs SJS/TENS. Labs revealedeosinophilia, transaminintis, DAYNA, and UA showed proteinuria. Peak labswith AST 2034/ ALT 863/ Alk Phos 553 and sCr peaked at 2.57. OSH hospitalstarted on IV Methylpred. Hgb dropped on 11/03 to 5.4 and concern raisedfor RP bleed. INR at that time 7.9. He was transfused and [facility] on [facility] for further management.?Admitted to MICU 11/03-11/09. MICU course as below:?11/03: Admitted to MICU from OSH for RP bleed11/04: Hgb drop, transfused 1 PRBC, 2 FFP.11/05:?Hgb fell to 6.4 overnight, transfused 1 unit PRBC11/06:?Hgb 6.7 overnight, transfused 1U PRBCs, Cr and BUN continue toincrease, UOP decreasing, K 5.8, phos 6.3, LFTs trending down.11/07: Still dropping counts. Holding Vit K and consulting VascularMedicine. Following up with IR on options to control bleeding. Gettingsecond read on CT ABD given ongoing left sided abdominal pain. Started onCVVHD for hyperkalemia.11/08:?CVVHD stopped d/t clots. No evidence of acute DVT. Per vascularmedicine, to follow up with Dr. Glez in several weeks and plan torestart coumadin in 3-4 weeks with out bridge.11/09:?Doing well. No further drop in HGB, last transfused on 11/07. Stillwith some small amount of blood from urinary meatus, no post void bladderresidual, increasing urine output. Following up with ortho on CT femurreport from OSH re: abscess. Afebrile, no leukocytosis, no pain.?In total, he has received 9 units PRBC and 7 units FFP.?Consulting teams have included dermatology, nephrology, hepatology, andVM.-Per Derm: DRESS with cutaneous manifestations. Recs for methylpred taper.40mg daily. Recommend decreasing by 10mg every 10 days. (40mg for 10 days,30mg for 10 days, and so on). Needs outpatient follow up, which derm hasalready scheduled.-VM recommended complete reversal a/c. Recommend continuing to hold a/c2-4 weeks prior to considering resumption. Recommended IPC, PT andmobilization, as well as compression hose. Do not recommend bridging whenCoumadin re-started.-Nephro on board for ATN. Became hyperkalemic and oliguric with littleresponse to Lasix 120mg IV. Started on CVVHD 11/06 through RIJ line. UOPnow improving with 1.76 L UOP yesterday. Holding dialysis. Last rfzcjleo05/17.-Hepatology consulted for elevated transaminases. Recommended daily labchecks, MRCP, DARIELA, iron studies, ceruloplasmin, AMA, AFP, etc. Gave Vit K10mg IV x3 days. Recommended TJBX if no improvement.?At the time of transfer, patient afebrile, HDS, and on RA. Labs notablefor:-CBC with Hgb 8.4, platelet and WBC normal-INR 1.2-BMP with creatinine 5.93, BUN 74, Ca 7.9, K 4.4, Bicarb 21-Last LFT with T bili 3.4, alk phos 461, ALT 86, AST 42-HCV quant was unremarkable.-DARIELA normal, HSV negative, CMV negative, EBV negative, SM antibody titerpositive @ 1:320, Ceruloplasmin normal, AFP 45.9?Only current meds at time of transfer are steroid taper and Protonix. Rthigh u/s has not been done, but suggested by MICU. DVT scan showed noDVT, but enlarged lymph node R thigh and chronic post-thrombotic changes.??PHYSICAL EXAM:Vitals? 000 100 200 11/10/179900BP: 131/68 134/72 133/63 126/76Pulse: 80 72 67 80Resp: 13 12 12 20Temp: 37.5 ?C (99.5 ?F) ? ? 36.8 ?C (98.2 ?F)TempSrc: Oral ? ? OralSpO2: 97% 99% 98% 97%Weight: ? ? ? 93.3 kg (205 lb 11 oz)Height: ? ? ? 188 cm (6' 2)?Temp Av.9 ?C (98.5 ?F) Min: 36.7 ?C (98.1 ?F) Max: 37.5 ?C (99.5?F)Pulse Av.4 Min: 66 Max: 126No Data RecordedCuff BP Min: 114/60 Max: 147/78Body mass index is 26.41 kg/m?.?General: Alert and oriented, no acute distress.Skin: Skin red, some peeling throughout, however seems improved fromprior.Head: Normocephalic, atraumatic.Eyes: Anicteric sclera. Pupils equal, round, reactive to lightbilaterally. EOMI.Oral: Lips, mucosa, and tongue normal and gums normal.Neck: RIJ line in place. Appears cleanCardiovascular: RRR, no murmur, gallop, or rubs. No ectopy.Respiratory: Clear to auscultation bilaterally. No wheezing, rales,rhonchi. No respiratory distress.Abdomen: Soft, non-tender, non-distended. Bowel sounds normal. Noorganomegaly or masses.Genitourinary: No CVA tenderness.Back: No pain to palpation over spine.Extremities: Skin exam as above. Normal cap refill. R thigh dressed, butappears swollen.Musculoskeletal: No joint swelling, deformity, or tenderness.Neuro: Motor and sensory function grossly intact x 4Psych: Normal affect, conversant.??MAINTENANCE:DVT PROPHYLAXIS: None. ContraindicatedGI PROPHYLAXIS: Protonix (on high dose steroids)NUTRITION: Renal dietIVF's: NoneCODE STATUS: Full?ASSESSMENT AND PLAN:57 yo male with a past medical history significant for factor V Leidendeficiency on Coumadin, R TKA complicated by R thigh abscess,and recentadmission to OSH for concern DRESS, transaminitis, oliguric DAYNA, and RPbleed with acute drop in hgb. Transferred to our MICU 11/03 for furthermanagement. Now stable for transfer to [facility].?Retroperitoneal bleed:??OSH CT A/P (11/03) with RP bleed in setting ofsupratherapeutic INR (19.5) and liver injury secondary to DRESS.PLAN:- Trend HGB q 12 hours.- IR consulted- no intervention at this time, continue medical management.- Will plan to have a follow up visit with Dr. Glez?several weeks?postdischarge with a plan to restart coumadin in 3-4 weeks, without bridge.- No evidence of acute clots on DVT study 11/07.?#Hepatitis:?Likely 2/2 to DRESS. US (11/01) thickened GB wall with a smallamt of pericholecystic fluid. Mild hepatomegaly with with mild fattyinfiltration. Evaluated by surg at OSH with no recommended intervention.Transaminase trending down, hyperbilirubinemia improving. Acute hep panelsignificant for previous B exposure, Hep C antibody +. ?US withappropriate flow, no biliary dilation, non-specific GB wall thickening. ?PLAN:- Trend LFTs- F/u auto immune hepatitis w/u.- Hepatology following, appreciate input.- Given 2 doses of Vit K, 11/06 and 11/07. INR 1.2?#DAYNA:?Nonoliguric DAYNA/ATN secondary to hemodynamic instability vs DRESSsyndrome. Normal SCr at baseline. SCr peaked at OSH (10/30) at 2.7-continues to worsen. Started on CVVHD on 11/06 for hyperkalemia notresponding to medical management. CVVHD stopped on 11/07 with clottingfilter.PLAN:- Increasing urine output. Holding off dialysis, no acute indicationstoday. Maintain temporary access for now.- Avoid Nephrotoxic agents- Renally dose meds.- Nephrology following, appreciate input.- Follow autoimmune work-up.?#Factor V Leiden:?H/o Factor V Leiden with h/o PE/DVT on coumadin.Supratherapetic INR of 19 on presentation to OSH 10/28.PLAN:- Holding anticoagulation in setting of supratherapeutic INR and acuteblood loss anemia.- Consult Vascular Medicine. Will plan to hold anticoagulation for 3-4weeks, no need to bridge per Vascular Medicine.- FAISAL and SHINE rand.- Encourage ambulation.- Updated Dr. Glez [phone], local physician who manages coumadin.?#Anemia due to blood loss: 2/2 to RP bleed- Trend CBC q12?#Abscess:?CT OSH from 10/28 with reported right leg abscess suprapatellarspace. No leukocytosis, no fevers, but + groin adenopathy seen on DVTstudies. No join pain, able to walk.PLAN:?- Discussed with Ortho, obtaining right knee xray-->negative- Right thigh US.- No ABX.?#Drug induced rash with eosinophilia and systemic symptoms:?SuspectedDRESS at OSH with fever, desquamating rash, peripheral eosinophilia, DAYNA,hepatitis in setting of vanco therapy in 08/2017 for thigh abscess ?PLAN:?- Supportive management- Methylprednisolone 40 mg daily ?- Taper by 10 mg q10 days per Derm recs- Appreciate Derm recs.- Will need to follow up with Dermatology in 4-6 weeks, Appointment made?Hung Peck's plan is not final until discussed with andauthenticated by attending physician?SIGNATURE: Yasmine Johnson MD, PGY-2 Internal Medicine ResidentPAGER: [phone]: November 10, 2017TIME: 2:07 [facility] STAFF PHYSICIAN NOTE OF PERSONAL INVOLVEMENT IN CAREI have reviewed the history and physical examination obtained anddocumented by the resident and I personally participated in the keycomponents. I have discussed the case and management of the patient'scare. The following comments revise or confirm relevant madrigal components oftheir note.Man with DRESS after abx exposures for post surgical (right knee)infections. Likely culprit vancomycin possible linezolid. Diffuse rash,DAYNA requiring HD, transaminitis -> now all improving with steroids.Completed course of abx for right thigh abscess.experiencing renal recovery with supervisor picking crew in urine output. Lytes ok,volume ok - holding HDTapering steroids per derm recs - avoiding vanco and linezolid in futureLFTS improving - extensive w/u for liver disease completeHad RP bleed and transfusions - INR reversed (had been supratherapeutic)now stableFactor V Leiden - holding AC given bleed as above - will consider resumingwith outpatient physician Amaris.Rest as aboveSIGNATURE: Toro Cooper, MDPAGER: [phone] of SERVICE: November 10, 2017TIME of SERVICE: 11:42 AM [facility] Magnesiumon 11-10-2017 Magnesium mass conc 2.2 mg/dL Normal 1.7-2.3 [facility] Comment on above: Performed By: #### P T, PTT, LACT, CMP, MG1, PHOS, CBCDIF ####[facility] [address] [place], [place] [phone] NURSING PROGon 11-10-2017 Protein mass conc HNO ID: [id number] thor: Amanda (Rn) Yazmin, RNService: (none)Author Type: Registered NurseType: Nursing Progress NoteFiled: 11/10/2017 6:39 PMNote Text: Nursing Progress NotePatient Name: Hung PeckMRN: [id number] Location: [place] [id number] Daily Note: AOx3. VSS. No c/o of pain. Continuous pulse ox 97 at thistime, unlabored, regular rate. Has urine leaking, pt stated team is aware.Placed a towel over genital to help absorb. Using a urinal. Toleratingdiet.This note was completed by: Amanda Arce RN [facility] PLAN OF CAREon 11-10-2017 PLAN OF CARE HNO ID: [id number] thor: Ethan (Res) AnoopService: General Internal MedicineAuthor Type: ResidentType: Plan of CareFiled: 11/10/2017 7:35 AMNote Text:PLAN OF CARE COORDINATION:Hung Peck was admitted by the overnight team on 11/09/2017 and [facility]been [facility].For questions/concerns, please page:Weekdays 7 am - 5 pm/Weekend 7 am to 3 pm:Page [phone] (Dr. Felicia Romero MD) [place] [phone] (DO Mallorie)Weekdays 5 pm to 7 am/Weekend 3 pm to 7 am:[employer] Platemaker Pager [phone] [facility] PLAN OF CARE HNO ID: [id number] thor: Yasmine (Becca) CovertService: General Internal MedicineAuthor Type: ResidentType: Plan of CareFiled: 11/10/2017 12:22 AMNote Text:MICU to [facility] transfer:Patient being transferred to H80-01 from MICU. Will be on [facility] Bmedicine service.?For any issues tonight, please page [facility] nights @ [phone]. For any issuesafter 8am please page primary team @:?First page: Dr. Romero @ [phone] Page: Dr. Davalos @ [phone]?Thanks,Yasmine Johnson MDInternal Medicine?Resident PGY-2Pager: [email or web address] [facility] PLAN OF CARE HNO ID: [id number] thor: Britt Bangervice: Critical CareAuthor Type: PhysicianType: Plan of CareFiled: 11/09/2017 10:18 PMNote Text:MICU TRANSFER TO REGULAR NURSING FLOORPt seen and examined on rounds with MICU staff and is stable to transf[facility].Signout given to Med QB (or accepting specialty staff MD)Pt going to bed [id number] Issues: See madrigal issues documented in the previous progress note forthe treatment plan.Orders signed and held in [facility].SIGNATURE: Britt Townsend MD PATIENT NAME: Hung AhumadaoneDATE: November 09, 2017 : 10:17 PM PAGER/CONTACT #: [phone] Normal [facility] Phosphoruson 11-10-2017 Phosphate mass conc 5.7 mg/dL High 2.7-4.8 [facility] Comment on above: Performed By: #### P T, PTT, LACT, CMP, MG1, PHOS, CBCDIF ####[facility] [place], [place] [phone] Protimeon 11-10-2017 INR Coag RelTime (Bld) 1.2 {INR} Normal 0.9-1.3 [facility] Comment on above: Result Comment: Nini min K Antagonist (VKA) Therapeutic Range: INR 2 to 3 (Target INR of 2.5)Note: For patients treated with VKA drugs, such as warfarin, the [place] [employer] 2012 Guideline recommends a therapeutic INR range of 2 to 3 (target INR of 2.5). This recommendation includes high-risk patients with antiphospholipid syndrome with previous arterial or venous thromboembolism, current-generation mechanical or bioprosthetic aortic heart valve replacement.Note: Patients with mechanical aortic valve replacement and additional risk factors for thromboembolic events (atrial fibrillation, previous thromboembolism, LV dysfunction, hypercoagulable conditions) or an older generation mechanical AVR (i.e., ball in-Cage) or any mechanical MVR should have a INR therapeutic range of 2.5 to 3.5 (target INR of 3).Aneeshtt GH, et al. Chest 2012, 141:7S-47SNishimbill RA, et al. [facility] 2017, 70: 252-289 Performed By: #### P T, PTT, LACT, CMP, MG1, PHOS, CBCDIF ####[facility] [place], [place] [phone] PT Sec 12.2 sec Normal 9.7-13.0 [facility] Comment on above: Performed By: #### P T, PTT, LACT, CMP, MG1, PHOS, CBCDIF ####[facility] [place], [place] [phone] CASE MANAGEMon 11-09-2017 CASE MANAGEM HNO ID: [id number] thor: Uyen (Rn) JESSI Lottervice: Case ManagementAuthor Type: Registered NurseType: Care Mgt Progress NoteFiled: 11/09/2017 12:53 PMNote Text:CARE MANAGEMENT PROGRESS NOTESERVICE DATE: 11/09/2017SERVICE TIME: 12:52 PM LOS: 6 daysNeeds Prior to Discharge: To Be DeterminedAnticipate transfer to [facility]. D/C needs and date TBD.SIGNATURE: yUen Lott RN PATIENT NAME: Hung CervantesATE: November 09, 2017 : 12:52 PM PAGER/CONTACT #: [phone] Normal [facility] CBCon 11-09-2017 Absolute nRBC <0.01 Normal <0.01 [facility] Comment on above: Performed By: #### P T, PTT, LACT, CMP, MG1, PHOS, CBCDIF ####[place] [address] [address] [place] [phone] Erythrocyte distribution width Auto Ratio (RBC) 20.4 % High 11.5-15.0 [facility] Comment on above: Performed By: #### P T, PTT, LACT, CMP, MG1, PHOS, CBCDIF ####[place] [address] [address] [place] [phone] Hematocrit Auto Volume Fraction (Bld) 26.1 % Low 39.0-51.0 [facility] Comment on above: Performed By: #### P T, PTT, LACT, CMP, MG1, PHOS, CBCDIF ####[facility] [place] [phone] Hemoglobin mass conc (Bld) 8.4 g/dL Low 13.0-17.0 [facility] Comment on above: Performed By: #### P T, PTT, LACT, CMP, MG1, PHOS, CBCDIF ####[facility] [place] [phone] MCH Auto Entitic mass (RBC) 30.3 pG Normal 26.0-34.0 [facility] Comment on above: Performed By: #### P T, PTT, LACT, CMP, MG1, PHOS, CBCDIF ####[place] [id number] [place] [phone] MCHC Auto mass conc (RBC) 32.2 g/dL Normal 30.5-36.0 [facility] Comment on above: Performed By: #### P T, PTT, LACT, CMP, MG1, PHOS, CBCDIF ####[place] [address] [place], [place] [phone] MCV Auto Entitic volume (RBC) 94.2 fL Normal 80.0-100.0 [facility] Comment on above: Performed By: #### P T, PTT, LACT, CMP, MG1, PHOS, CBCDIF ####[place] [address], [place] [phone] Platelet mean volume Auto Entitic volume (Bld) 10.6 fL Normal 9.0-12.7 [facility] Comment on above: Performed By: #### P T, PTT, LACT, CMP, MG1, PHOS, CBCDIF ####[address], [place] [phone] Platelets Auto #/vol (Bld) 272 10*3/uL Normal 150-400 [facility] Comment on above: Performed By: #### P T, PTT, LACT, CMP, MG1, PHOS, CBCDIF ####[address] [phone] RBC Auto #/vol (Bld) 2.77 10*6/uL Low 4.20-6.00 [facility] Comment on above: Performed By: #### P T, PTT, LACT, CMP, MG1, PHOS, CBCDIF ####[place] [address] [address], [place] [phone] WBC Auto #/vol (Bld) 9.95 10*3/uL Normal 3.70-11.00 [facility] Comment on above: Performed By: #### P T, PTT, LACT, CMP, MG1, PHOS, CBCDIF ####[address]CSan [address], [place] [phone] CBC and Differentialon 11-09 Abs Baso <0.03 Normal <0.11 [facility] Comment on above: Performed By: #### P T, PTT, LACT, CMP, MG1, PHOS, CBCDIF ####[place] [address] [place] [phone] Abs Haskell 1.15 k/uL High <0.87 [facility] Comment on above: Performed By: #### P T, PTT, LACT, CMP, MG1, PHOS, CBCDIF ####[place] [address] [place] [phone] Abs Neut 6.69 k/uL Normal 1.45-7.50 [facility] Comment on above: Performed By: #### P T, PTT, LACT, CMP, MG1, PHOS, CBCDIF ####[address] Av[address] [place] [phone] Absolute nRBC <0.01 Normal <0.01 [facility] Comment on above: Performed By: #### P T, PTT, LACT, CMP, MG1, PHOS, CBCDIF ####[place] [address] [address] [place] [phone] Basophils/100 WBC Auto (Bld) 0.1 % Normal [facility] Comment on above: Performed By: #### P T, PTT, LACT, CMP, MG1, PHOS, CBCDIF ####[place] [phone] DTYPE Auto Diff Normal [facility] Comment on above: Performed By: #### P T, PTT, LACT, CMP, MG1, PHOS, CBCDIF ####[address] Av[address] [place] [phone] Eosinophils Auto #/vol (Bld) 0.18 10*3/uL Normal <0.46 [facility] Comment on above: Performed By: #### P T, PTT, LACT, CMP, MG1, PHOS, CBCDIF ####[address] [place] [phone] Eosinophils/100 WBC Auto (Bld) 1.9 % Normal [facility] Comment on above: Performed By: #### P T, PTT, LACT, CMP, MG1, PHOS, CBCDIF ####[address] [place] [phone] Erythrocyte distribution width Auto Ratio (RBC) 20.5 % High 11.5-15.0 [facility] Comment on above: Performed By: #### P T, PTT, LACT, CMP, MG1, PHOS, CBCDIF ####[place] [phone] Hematocrit Auto Volume Fraction (Bld) 23.9 % Low 39.0-51.0 [facility] Comment on above: Performed By: #### P T, PTT, LACT, CMP, MG1, PHOS, CBCDIF ####[address] [place] [phone] Hemoglobin mass conc (Bld) 7.7 g/dL Low 13.0-17.0 [facility] Comment on above: Performed By: #### P T, PTT, LACT, CMP, MG1, PHOS, CBCDIF ####[place] [phone] Lymphocytes Auto #/vol (Bld) 1.37 10*3/uL Normal 1.00-4.00 [facility] Comment on above: Performed By: #### P T, PTT, LACT, CMP, MG1, PHOS, CBCDIF ####[address] [place] [phone] Lymphocytes/100 WBC Auto (Bld) 14.6 % Normal [facility] Comment on above: Performed By: #### P T, PTT, LACT, CMP, MG1, PHOS, CBCDIF ####[place] [address] [address] [place] [phone] MCH Auto Entitic mass (RBC) 30.0 pG Normal 26.0-34.0 [facility] Comment on above: Performed By: #### P T, PTT, LACT, CMP, MG1, PHOS, CBCDIF ####[place] [address] [place] [phone] MCHC Auto mass conc (RBC) 32.2 g/dL Normal 30.5-36.0 [facility] Comment on above: Performed By: #### P T, PTT, LACT, CMP, MG1, PHOS, CBCDIF ####[address] [place] [phone] MCV Auto Entitic volume (RBC) 93.0 fL Normal 80.0-100.0 [facility] Comment on above: Performed By: #### P T, PTT, LACT, CMP, MG1, PHOS, CBCDIF ####[place] [address] [place] [phone] Monocytes/100 WBC Auto (Bld) 12.2 % Normal [facility] Comment on above: Performed By: #### P T, PTT, LACT, CMP, MG1, PHOS, CBCDIF ####[place] [address] [place] [phone] Neutrophils/100 WBC Auto (Bld) 71.2 % Normal [facility] Comment on above: Performed By: #### P T, PTT, LACT, CMP, MG1, PHOS, CBCDIF ####[place] [address] [place] [phone] NRBCs 0.0 /100 WBC Normal 0 [facility] Comment on above: Performed By: #### P T, PTT, LACT, CMP, MG1, PHOS, CBCDIF ####[place] [address] [place] [phone] Platelet mean volume Auto Entitic volume (Bld) 10.5 fL Normal 9.0-12.7 [facility] Comment on above: Performed By: #### P T, PTT, LACT, CMP, MG1, PHOS, CBCDIF ####[address] [phone] Platelets Auto #/vol (Bld) 235 10*3/uL Normal 150-400 [facility] Comment on above: Performed By: #### P T, PTT, LACT, CMP, MG1, PHOS, CBCDIF ####[address] [phone] RBC Auto #/vol (Bld) 2.57 10*6/uL Low 4.20-6.00 [facility] Comment on above: Performed By: #### P T, PTT, LACT, CMP, MG1, PHOS, CBCDIF ####[address] [phone] WBC Auto #/vol (Bld) 9.40 10*3/uL Normal 3.70-11.00 [facility] Comment on above: Performed By: #### P T, PTT, LACT, CMP, MG1, PHOS, CBCDIF ####[address] [phone] Comp Metabolic Panelon 11-09 Albumin mass conc 2.1 g/dL Low 3.9-4.9 [facility] Comment on above: Performed By: #### P T, PTT, LACT, CMP, MG1, PHOS, CBCDIF ####[address] [phone] ALP enzyme act/vol 461 U/L High 36-108 [facility] Comment on above: Performed By: #### P T, PTT, LACT, CMP, MG1, PHOS, CBCDIF ####[address] [phone] ALT enzyme act/vol 86 U/L High 10-54 [facility] Comment on above: Performed By: #### P T, PTT, LACT, CMP, MG1, PHOS, CBCDIF ####[address] [phone] Anion gap 3 molar conc 13 mmol/L Normal 9-18 [facility] Comment on above: Performed By: #### P T, PTT, LACT, CMP, MG1, PHOS, CBCDIF ####[address] [phone] AST enzyme act/vol 42 U/L High 14-40 [facility] Comment on above: Performed By: #### P T, PTT, LACT, CMP, MG1, PHOS, CBCDIF ####[place] [phone] Bilirubin mass conc 3.4 mg/dL High 0.2-1.3 [facility] Comment on above: Performed By: #### P T, PTT, LACT, CMP, MG1, PHOS, CBCDIF ####[place] [phone] Calcium mass conc 7.7 mg/dL Low 8.5-10.2 [facility] Comment on above: Performed By: #### P T, PTT, LACT, CMP, MG1, PHOS, CBCDIF ####[address] [phone] Chloride molar conc 103 mmol/L Normal 97-105 [facility] Comment on above: Performed By: #### P T, PTT, LACT, CMP, MG1, PHOS, CBCDIF ####[address] [phone] CO2 molar conc 24 mmol/L Normal 22-30 [facility] Comment on above: Performed By: #### P T, PTT, LACT, CMP, MG1, PHOS, CBCDIF ####[facility] [address] AveCSan [place], [place] [phone] Creatinine mass conc 5.46 mg/dL High 0.73-1.22 [facility] Comment on above: Performed By: #### P T, PTT, LACT, CMP, MG1, PHOS, CBCDIF ####[facility], [place] [phone] eGFR- Amer. 13 [facility] Comment on above: Performed By: #### P T, PTT, LACT, CMP, MG1, PHOS, CBCDIF ####[facility], [place] [phone] GFR/1.73 sq M predicted among non-blacks MDRD vol rate/area (S/P/Bld) 11 . Normal [facility] Comment on above: Result Comment: eGFR (Estimated GFR) Units of measure: mL/min/1.73 meters squaredeGFR is derived from the reexpressed MDRD Study equation using the following parameters: serum creatinine, age, gender and race. The creatinine assay has been calibrated to be traceable to IDMS.An eGFR <60 mL/min/1.73m2 for >3 months is consistent with chronic kidney disease. Refer to KDOQI guidelines for clinical interpretation.In patients with unstable renal function, e.g. those with acute kidney injury, the eGFR may not accurately reflect actual GFR. Performed By: #### P T, PTT, LACT, CMP, MG1, PHOS, CBCDIF ####[facility] [address] [place], [place] [phone] Glucose mass conc 121 mg/dL High 74-99 [facility] Comment on above: Result Comment: The [place] Diabetes Association (ADA) provides guidance for cutoff values for fasting glucose and random glucose. The ADA defines fasting as no caloric intake for at least 8 hours. Fasting plasma glucose results between 100 to 125 mg/dL indicate increased risk for diabetes (prediabetes).Fasting plasma glucose results greater than or equal to 126 mg/dL meet the criteria for diagnosis of diabetes. In the absence of unequivocal hyperglycemia, results should be confirmed by repeat testing. In a patient with classic symptoms of hyperglycemia or hyperglycemic crisis, random plasma glucose results greater than or equal to 200 mg/dL meet the criteria for diagnosis of diabetes.Reference: Standards of Medical Care in Diabetes 2016, [place] Diabetes Association. Diabetes Care. 2016.39(Suppl 1). Performed By: #### P T, PTT, LACT, CMP, MG1, PHOS, CBCDIF ####[address] [phone] Potassium molar conc 4.7 mmol/L Normal 3.7-5.1 [facility] Comment on above: Performed By: #### P T, PTT, LACT, CMP, MG1, PHOS, CBCDIF ####[address] [phone] Protein mass conc 7.4 g/dL Normal 6.3-8.0 [facility] Comment on above: Performed By: #### P T, PTT, LACT, CMP, MG1, PHOS, CBCDIF ####[address] [phone] Sodium molar conc 140 mmol/L Normal 136-144 [facility] Comment on above: Performed By: #### P T, PTT, LACT, CMP, MG1, PHOS, CBCDIF ####[address] [phone] Urea nitrogen mass conc 65 mg/dL High 9-24 [facility] Comment on above: Performed By: #### P T, PTT, LACT, CMP, MG1, PHOS, CBCDIF ####[address] [phone] Copper, Urine, 24hron 2017 Copper, Urine, 24hr 95 ug/24 hr High <60 [facility] Comment on above: Result Comment: Urin e copper results >200ug/24h may be indicative of Gerard's Disease.This test was developed and its performance characteristics determined by [facility]'s [facility] [place] ([facility]).It has not been cleared or approved by the FDA. -[facility] is regulated under CLIA as qualified to perform high-complexity testing.This test is used for clinical purposes. It should not be regarded as investigational or for research. Performed By: #### P T, PTT, LACT, CMP, MG1, PHOS, CBCDIF ####[facility] [place], [place] [phone] Magnesiumon 11-09-2017 Magnesium mass conc 2.1 mg/dL Normal 1.7-2.3 [facility] Comment on above: Performed By: #### P T, PTT, LACT, CMP, MG1, PHOS, CBCDIF ####[facility] [place], [place] [phone] PROGRESSon 11-09-2017 Protein mass conc HNO ID: [id number] thor: Majo Barrett ([facility]) DennisonService: Critical CareAuthor Type: Nurse PractitionerType: Progress NotesFiled: 11/09/2017 12:49 PMNote Text:SERVICE DATE: 11/09/2017SERVICE TIME: 12:48 PMMICU PROGRESS NOTEAdmission Date: 11/03/2017Hospital Day # 6SUBJECTIVEInterval Events: No blood transfusions for the last 36 hours. Increasingurine output.OBJECTIVEVital Signs (last filed) Range in last 24hTemp: 36.9 ?C (98.4 ?F) (11/09/17 0800) Temp Min: 36.8 ?C (98.2 ?F) Max:36.9 ?C (98.4 ?F)Pulse: (!) 126 (11/09/17 1000) Pulse Min: 66 Max: 126Resp: 11 (11/09/17 1000) Resp Min: 11 Max: 35BP: 119/70 (11/09/17 1000) BP Min: 116/67 Max: 126/66MAP Non Invasive (Mean Arterial Pressure): 88 (11/09/17 1000) MAP NonInvasive (Mean Arterial Pressure) Min: 84 Max: 92 No Data RecordedSpO2: 98 % (11/09/17 1000) SpO2 Min: 95 % Max: 100 %Pain Score: 0/10 (11/09/17 0925)Fluid Balance:Intake/Output Summary (Last 24 hours) at 11/09/17 0659Last data filed at 11/09/17 0600 Gross per 24 hourIntake 480 mlOutput 1460 mlNet -980 mlLast Weight: 98.2 kg (216 lb 7.9 oz) (11/09/17 0100)Admit Weight: 94.9 kg (209 lb 3.5 oz) (11/03/17 1407)DIET RENALLines, Drains, and Airways Line Central Line Single Lumen 09/20/17 Peripherally Inserted (PICC) Right Arm50 days Dialysis / Apheresis Double Lumen 11/05/17 1900 Assessment Non-tunneledRight Neck 3 daysVent/Oxygen: Room air.Physical Examination PerformedOral Mucosa: Dry mucous membranesEyes: PERRL Neck: UnremarkableCardiovascular: Regular rhythmRespiratory: Clear to auscultationAbdomen: Soft, Positive bowel sounds. Mildly distended, some pain when heturns to the left, better than yesterday.Extremities: Edema- Yes, 1 + pitting. Peripheral Pulses- 2+ radialpulsesSkin: Abnormalities- Yes, sloughing skin. Breakdown- See RNdocumentationNeurologic: Awake, oriented, Alert, Follows commands and Moving allextremitiesInfusion MedicationsDiagnostic tests reviewed today: Most recent labs and imaging results.PATIENT CHECKLIST? Are restraints necessary: No? Deep vein thrombosis prophylaxis administered? No. Contraindicated.? Stress ulcer prophylaxis? Yes? Nasogastric tube? No? Morejon catheter necessary? No? Is central line essential? Yes? Plan discussed with assigned RN? Yes? Family updated within last 24 hours? YesCARE COORDINATION:Patient Summary:57 year old male with PMHx of Factor V Leiden c/b DVT and PE on Coumadinand Right Total Knee Replacement 07/2017 who was transferred from an OSHd/t concern for DRESS vs SJS/TEN and RP bleed in the setting of elevatedINR (19.5 on admission to OSH ED).Major Interval Events:11/03: Admitted to MICU from OSH for RP bleed11/04: Hgb drop, transfused 1 PRBC, 2 FFP.11/05: Hgb fell to 6.4 overnight, transfused 1 unit PRBC11/06: Hgb 6.7 overnight, transfused 1U PRBCs, Cr and BUN continue toincrease, UOP decreasing, K 5.8, phos 6.3, LFTs trending down.11/07: Still dropping counts. Holding Vit K and consulting VascularMedicine. Following up with IR on options to control bleeding. Gettingsecond read on CT ABD given ongoing left sided abdominal pain. Started onCVVHD for hyperkalemia.11/08: CVVHD stopped d/t clots. No evidence of acute DVT. Per vascularmedicine, to follow up with Dr. Glez in several weeks and plan torestart coumadin in 3-4 weeks with out bridge.11/09: Doing well. No further drop in HGB, last transfused on 11/07. Stillwith some small amount of blood from urinary meatus, no post void bladderresidual, increasing urine output. Following up with ortho on CT femurreport from OSH re: abscess. Afebrile, no leukocytosis, no pain.Plan for the Day:- Increasing urine output. Holding off dialysis, no acute indicationstoday. Maintain temporary access for now.- Follow up with Ortho on report of abscess from OSH right femur CT 10/28.Groin lymphadenopathy reported on DVT studies, but no fevers, noleukocytosis, no pain with walking.- XR right knee per Ortho.- US of vastus medialis on right.- Complex fluid collection may need to be drained if an abscess. Hold fornow pending more studies.- Hold removing PICC until abscess question is answered.- Follow 24 hour copper.- Methylpred taper per derm recs, ordered.- Once plan for right thigh is clarified, OK to go to [facility].- Discussed with MICU staff.ASSESSMENT AND PLANOverview, Assessment AND Plan, all Hosp ProblemsActive Hospital Problems as of 11/09/2017 Noted - Resolved Gastrointestinal Retroperitoneal bleed 11/03/2017 - Present Current Assessment AND Plan Assessment: OSH CT A/P (11/03) with RP bleed in setting ofsupratherapeutic INR (19.5) and liver injury secondary to DRESS.PLAN:- Trend HGB q 12 hours.- IR consulted- no intervention at this time, continue medical management.- Vascular medicine consulted. Update Dr. Glez [phone], thephysician who manages the coumadin. Will plan to have a follow up visitwith Dr. Glez several weeks post discharge with a plan to restartcoumadin in 3-4 weeks, without bridge.- No evidence of acute clots on DVT study 11/07. Hepatitis 11/03/2017 - Present Current Assessment AND Plan Assessment: Likely 2/2 to DRESS. US (11/01) thickened GB wall with asmall amt of pericholecystic fluid. Mild hepatomegaly with with mild fattyinfiltration. Evaluated by surg at OSH with no recommended intervention.Transaminase trending down, hyperbilirubinemia improving. Acute hep panelsignificant for previous B exposure, Hep C antibody +. US withappropriate flow, no biliary dilation, non-specific GB wall thickening.PLAN:- Trend LFTs- F/u auto immune hepatitis w/u.- Send 24 hour copper.- Send DARIELA- Hepatology following, appreciate input.- Given 2 doses of Vit K, 11/06 and 11/07. INR 1.2 Mild protein-calorie malnutrition (HCC) 11/04/2017 - Present Current Assessment AND Plan PLAN:- Renal diet. Nephrology DAYNA (acute kidney injury) (HCC) 11/03/2017 - Present Current Assessment AND Plan Assessment: Nonoliguric DAYNA/ATN secondary to hemodynamic instability vsDRESS syndrome. Normal SCr at baseline. SCr peaked at OSH (10/30) at 2.7-continues to worsen. Started on CVVHD on 11/06 for hyperkalemia notresponding to medical management. CVVHD stopped on 11/07 with clottingfilter.PLAN:- No acute indications for DIRECTOR CAREER.- Avoid Nephrotoxic agents- Renally dose meds.- Nephrology following, appreciate input.- Follow autoimmune work-up. Hematology Factor V Leiden (HCC) 11/03/2017 - Present Current Assessment AND Plan Assessment: H/o Factor V Leiden with h/o PE/DVT on coumadin.Supratherapetic INR of 19 on presentation to OSH 10/28.PLAN:- Holding anticoagulation in setting of supratherapeutic INR and acuteblood loss anemia.- Consult Vascular Medicine. Will plan to hold anticoagulation for 3-4weeks, no need to bridge per Vascular Medicine.- PAS and SHINE rand.- Encourage ambulation.- Updated Dr. Glez [phone], local physician who manages coumadin. Anemia due to blood loss 11/03/2017 - Present Current Assessment AND Plan Assessment: Secondary to RP bleedPLAN:- Trend CBC q 12 hours. Infectious Disease Abscess 11/09/2017 - Present Current Assessment AND Plan Assessment: CT OSH from 10/28 with reported right leg abscesssuprapatellar space. No leukocytosis, no fevers, but + groin adenopathyseen on DVT studies. No join pain, able to walk.PLAN:- Discussed with Ortho, obtaining right knee xray.- Right thigh US.- No ABX. Dermatology Drug induced rash with eosinophilia and systemic symptoms 11/03/2017 -Present Current Assessment AND Plan Assessment: Suspected DRESS at OSH with fever, desquamating rash,peripheral eosinophilia, DAYNA, hepatitis in setting of vanco therapy in08/2017 for thigh abscessPLAN:- Supportive management- Methylprednisolone 40 mg daily - Taper by 10 mg q10 days per Derm recs- Appreciate Derm recs.- Will need to follow up with Dermatology in 4-6 weeks, ~15 December. Makeappointment prior to DC.Medication and Non-Pharmacologic VTE Prophylaxis/Gkucchouljjtae97 /17/18 1630 graduated compression stockings (ri,vt)11/04/17 1615 activity - mobilize patient ([place])11/03/17 1445 vte pharmacologic prophylaxis contraindicated (ri,vt)11/03/17 1445 pneumatic compression stockings ([place])11/03/17 1445 activity - mobilize patient ([place])VTE Prophylaxis: VTE prophylaxis appropriatePlan of care discussed with: ICU TeamSIGNATURE: Majo Herbert APRN.[employer] DEMONSTRATOR PATIENT NAME: Hung AhumadaoneDATE: November 09, 2017 : 12:48 PM PAGER/CONTACT #: [phone] Normal [facility] Protein mass conc HNO ID: [id number] thor: Loutfi S AboussouanService: Pulmonary DiseaseAuthor Type: PhysicianType: Progress NotesFiled: 11/09/2017 10:54 AMNote Text:MICU StaffWas able to walk aroundWBC 9.4, afebrileHemoglobin stable at 7.7BUN creatinine increased at 65/5.46, but urine output continues toincrease currently 1460 cc and in negative balance 980 ccALT AST total bilirubin all improved 86/42/3.4 respectivelyStill with bleeding from urethral areaASSESSMENTDrug rash with eosinophilia and systemic symptoms (DRESS) presenting withdesquamating rash while on doxycycline and linezolid (with priorvancomycin) for right thigh abcessTransaminitis in the context of DRESS without encephalopathy improvingAcute blood loss anemia (still active) with retroperitoneal bleed duringelevated INR 19.5 (on CT abd/pel 9.AKI no longer oliguricRt TKR , reexploration for possible joint infection(negative)Right thigh abcess 09/[address] RLE Pseudomonas UTI Factor V leiden with DVT and PE. No DVT on Doppler lower extremitySeptember 16 but superficial left from of phlebitis of perforating vein atmidcalfHep C positive and low ceruloplasminPLANUltrasound right thigh to follow up on radiographic findingsSteroids MP 40 daily with slow taperPlace foleyCheck urine copper (24 hours collected)Check DARIELA, iron studies, AFP, ASMA, AMA, IgGNephrology dermatology and hepatology follow upHold anticoagulation, no need for bridging, resume warfarin 3-4 weeksdepending on stability of blood countsCRRT for solute and volume management currently on hold with no acute needGet official read on his outside CT (right thigh abscess)Follow up H/HSignature: Rosalia Mao [facility] STAFF PHYSICIAN NOTE OF PERSONAL INVOLVEMENT IN CAREAttending NoteI have personally performed a face to face assessment of the patient andhave reviewed the PA/HIDE HANDLER note. My madrigal findings additions or changes areas above.Signature: Rosalia Mao MDDate: 11/09/2017 Normal [facility] Period and Volumeon 11-10-19 18 Period 24 hr Normal [facility] Comment on above: Performed By: #### P T, PTT, LACT, CMP, MG1, PHOS, CBCDIF ####[facility] [address] [place], [place] [phone] Volume 1729 mL Normal [facility] Comment on above: Performed By: #### P T, PTT, LACT, CMP, MG1, PHOS, CBCDIF ####[facility] [place], [place] [phone] Phosphoruson 11-09-2017 Phosphate mass conc 5.9 mg/dL High 2.7-4.8 [facility] Comment on above: Performed By: #### P T, PTT, LACT, CMP, MG1, PHOS, CBCDIF ####[facility] [place], [place] [phone] Protimeon 11-09-2017 INR Coag RelTime (Bld) 1.2 {INR} Normal 0.9-1.3 [facility] Comment on above: Result Comment: Nini min K Antagonist (VKA) Therapeutic Range: INR 2 to 3 (Target INR of 2.5)Note: For patients treated with VKA drugs, such as warfarin, the [place] [employer] 2012 Guideline recommends a therapeutic INR range of 2 to 3 (target INR of 2.5). This recommendation includes high-risk patients with antiphospholipid syndrome with previous arterial or venous thromboembolism, current-generation mechanical or bioprosthetic aortic heart valve replacement.Note: Patients with mechanical aortic valve replacement and additional risk factors for thromboembolic events (atrial fibrillation, previous thromboembolism, LV dysfunction, hypercoagulable conditions) or an older generation mechanical AVR (i.e., ball in-Cage) or any mechanical MVR should have a INR therapeutic range of 2.5 to 3.5 (target INR of 3).Raghav GH, et al. Chest 2012, 141:7S-47SNishimura RA, et al. [facility] 2017, 70: 252-289 Performed By: #### P T, PTT, LACT, CMP, MG1, PHOS, CBCDIF ####[facility] [place], [place] [phone] PT Sec 12.5 sec Normal 9.7-13.0 [facility] Comment on above: Performed By: #### P T, PTT, LACT, CMP, MG1, PHOS, CBCDIF ####[facility] [address] [place], [place] [phone] THERAPY NTon 11-09-2017 THERAPY NT HNO ID: [id number] thor: Alfreda (Pt) MagnerService: Physical TherapyAuthor Type: Physical TherapistType: Therapy (PT/OT/Speech/Resp)Filed: 11/09/2017 10:54 AMNote Text:Physical Therapy TreatmentSERVICE DATE: 11/09/2017SERVICE TIME: 924 to 1002ROOM: [id number] Discharge Disposition: Home PT due to decreased activitytolerance and balanceAnticipated Discharge Needs: UndeterminedPT Recommendations to Nursing: With assist of 1 person;Transfer to/fromchair;OOB for Meals;Ambulate with deviceDevice: Wheeled WalkerPT 6 Clicks Score: 20Precautions/Activity Restrictions: Fall RiskASSESSMENT :Improvements seen with increased activity tolerance and ability totolerate gait training 30 ft x 2 trials, WW and min assist. Recommendeddischarge to home with PT.Patient Disposition at Start of Session: Supine in BedPatient Disposition at End of Session: OOB in ChairTolerated Full SessionPhysical Therapy Problem List: Decreased Activity Tolerance;DecreasedStrength; Functional Mobility Impairment;Balance Impaired;Cognitive DeficitPatient /Caregiver Goals: Go HomeGoals for Plan of Care:Rolling with: Contact Guard AssistanceTransfer supine to/from sit with: Contact Guard AssistanceTransfer sit to/from stand with: Contact Guard AssistanceAmbulate with: Contact Guard AssistanceDistance: 50Device: Wheeled WalkerProgress Toward Goals: Progressing as expectedRehab Potential: Excellent Based on progress towards goalsPLAN:Treatment Frequency (times per week): 3 Current admissionTreatment Interventions: Education;Energy ConservationTraining;Strengt hening;Functional Mobility Training;Balance TrainingPlan of Care developed with: PatientTREATMENT INTERVENTIONS:Therapy Diagnosis: Reduced mobility-otherInterventions Provided: Gait Training (04157)Gait Training (23424) Treatment Minutes: 383 unitsSkilled Intervention(s): Education on the role of PT and the importance ofmobility. Bed mobility with VC for good Log roll technique and LEadvancement CGA provided to achieve full erect posture. Cueing for properuse of WW and good hand placement for safety. Sit to stand transfer fromvarious surfaces with verbal Cueing for proper hand placement and safety.Dynamic standing with forward leaning outside of SANDI. Gait training withWW and min assist for safety. Chair follow provided to increase patientconfidence. Seated and standing rest breaks provided to increase activitytolerance. Discussion on current level of mobility and discharge planning.Skilled intervention for ICU line/room setup for safe mobility environmentas well as for vital sign monitoring to assess hemodynamic and respiratoryresponse to activity to prescribe safe intensity and duration ofactivity/exercise during above interventions. Recommended discharge tohome with PT.Highest Level of Mobility (JH-HLM)This scale indicates the objective performance level this date and doesnot reflect clinical judgment of capability. Today the patient scored a 7on the JH-HLM. Explanations are noted in the chart below.?? Criteria ScoreWalk 250+ feet 8? 25+ feet 7? 10+ steps 6Stand > 1 minute 5Chair Transfer to chair 4Bed Sitting at EOB 3? Turning self/bed activity* 2? Only laying 1*Includes PROM/AROM, bed exercises and UE/LE movementTotal Timed Code Treatment Minutes: 38Total Treatment Time (minutes): 38FUNCTIONAL G CODE:PT 6 Clicks Score: 20 (11/09/17 0925)Mobility: Walking and Moving Around Current Status (G8978): CJ ()Mobility: Walking and Moving Around Goal Status (G8979): CI ()Based on clinical assessment and the score on the 6 Clicks FunctionalAssessment Tool, the G code and corresponding severity modifiers aredocumented above.SUBJECTIVE:Current Hospital Course: Chart reviewed and no significant medical updatesrelevant to therapy were notedPatient Report: I thought that would be much harder patient agreeable toPT sessionHome EnvironmentPatient Lives With: Significant OtherAssistance Available: 24 HourEntry To Home: StairsNumber Of Stairs Into Home: 2Prior Functional Level: Within Functional Limits (recently using a walkerafter last admit)OBJECTIVE:CURRENT FUNCTIONAL STATUS: further mobility deferred due to concernsfor patient safety and toleranceCurrent Functional Mobility Assist Level Additional InformationRolling Contact Guard AssistanceSupine to Sit Contact Guard AssistanceSit to Supine Contact Guard AssistanceScooting Contact Guard AssistanceSit to Stand Contact Guard AssistanceStand to Sit Contact Guard AssistanceBed to Chair Contact Guard Assistance Bed To Chair Transfer Type: StandPivotBed To Chair Transfer Equipment: Gait BeltToilet/CommodeGait Minimal Assistance Gait Device: Wheeled Walker Gait Distance (feet): 08e7LufvkuQnyo StepCar TransferGeneral Gait Deviations: Joyce decreased;Flexed trunk posture;NarrowBase of Support;Shuffling GaitPlease see discipline specific clinical documentation flowsheet forcomplete details for this therapy evaluation/treatment.SIGNATU RE: Alfreda Rajan, PT PATIENT NAME: Hung AhumadaoneDATE: November 09, 2017 : 10:50 AM Normal [facility] XR KNEE 2V AP/LAT RTon 11-09 Protein mass conc * * *Final Report* * *DATE OF EXAM: Nov 09 2017 1:33PM LAURA 5207 - XR KNEE 2V AP/LAT RT / REASON: Knee pain, persistent, > 6wks of conservative tx * * * * Physician Interpretation * * * * X-RAYS RIGHT KNEEHISTORY: . Knee pain, persistent, > 6wks of conservative txTECHNIQUE: 2 views of the right knee.COMPARISON: 11/03/2017RESULT:Postsurgica l changes of a right total knee arthroplasty with patellar resurfacing. Small amount of benign calcification likely developing heterotopic bone anterior to the distal femoral shaft.IMPRESSION:Right total knee arthroplasty without consultationTranscriptionist : PSCB Transcribe Date/Time: Nov 09 2017 2:13PDictated by : LACY CALL MDThis examination was interpreted and the report reviewed and electronically signed by: LACY CALL MD on Nov 09 2017 2:15PM [id number] Normal [facility] ANAon 11-08-2017 DARIELA by EIA 0.7 OD Ratio Normal [facility] Comment on above: Result Comment: OD R atio is interpreted as follows:Negative <1.0Positive >=1.0 Performed By: #### P T, PTT, LACT, CMP, MG1, PHOS, CBCDIF ####[place] [address] AveCSan [address], [place] [phone] DARIELA by EIA, Qual Negative Normal Negative [facility] Comment on above: Performed By: #### P T, PTT, LACT, CMP, MG1, PHOS, CBCDIF ####[address] AveCSan [address]andro, [place] [phone] CBCon 11-08-2017 Absolute nRBC <0.01 Normal <0.01 [facility] Comment on above: Performed By: #### P T, PTT, LACT, CMP, MG1, PHOS, CBCDIF ####[address] AvRandall [address]ille [phone] Erythrocyte distribution width Auto Ratio (RBC) 21.0 % High 11.5-15.0 [facility] Comment on above: Performed By: #### P T, PTT, LACT, CMP, MG1, PHOS, CBCDIF ####[place] [address] [phone] Hematocrit Auto Volume Fraction (Bld) 24.3 % Low 39.0-51.0 [facility] Comment on above: Performed By: #### P T, PTT, LACT, CMP, MG1, PHOS, CBCDIF ####[place] [phone] Hemoglobin mass conc (Bld) 7.8 g/dL Low 13.0-17.0 [facility] Comment on above: Performed By: #### P T, PTT, LACT, CMP, MG1, PHOS, CBCDIF ####[place] [address] [phone] MCH Auto Entitic mass (RBC) 29.5 pG Normal 26.0-34.0 [facility] Comment on above: Performed By: #### P T, PTT, LACT, CMP, MG1, PHOS, CBCDIF ####[address] [phone] MCHC Auto mass conc (RBC) 32.1 g/dL Normal 30.5-36.0 [facility] Comment on above: Performed By: #### P T, PTT, LACT, CMP, MG1, PHOS, CBCDIF ####[address] [phone] MCV Auto Entitic volume (RBC) 92.0 fL Normal 80.0-100.0 [facility] Comment on above: Performed By: #### P T, PTT, LACT, CMP, MG1, PHOS, CBCDIF ####[address] [phone] Platelet mean volume Auto Entitic volume (Bld) 10.2 fL Normal 9.0-12.7 [facility] Comment on above: Performed By: #### P T, PTT, LACT, CMP, MG1, PHOS, CBCDIF ####[address] [phone] Platelets Auto #/vol (Bld) 217 10*3/uL Normal 150-400 [facility] Comment on above: Performed By: #### P T, PTT, LACT, CMP, MG1, PHOS, CBCDIF ####[address] [phone] RBC Auto #/vol (Bld) 2.64 10*6/uL Low 4.20-6.00 [facility] Comment on above: Performed By: #### P T, PTT, LACT, CMP, MG1, PHOS, CBCDIF ####[address] [phone] WBC Auto #/vol (Bld) 9.02 10*3/uL Normal 3.70-11.00 [facility] Comment on above: Performed By: #### P T, PTT, LACT, CMP, MG1, PHOS, CBCDIF ####[place] [address], [place] [phone] CBC and Differentialon 11-08 Abs Baso <0.03 Normal <0.11 [facility] Comment on above: Performed By: #### P T, PTT, LACT, CMP, MG1, PHOS, CBCDIF ####[place] [address] [phone] Abs Haskell 0.96 k/uL High <0.87 [facility] Comment on above: Performed By: #### P T, PTT, LACT, CMP, MG1, PHOS, CBCDIF ####[address] [phone] Abs Neut 5.98 k/uL Normal 1.45-7.50 [facility] Comment on above: Performed By: #### P T, PTT, LACT, CMP, MG1, PHOS, CBCDIF ####[place] [phone] Absolute nRBC <0.01 Normal <0.01 [facility] Comment on above: Performed By: #### P T, PTT, LACT, CMP, MG1, PHOS, CBCDIF ####[address]CSan [address]andro, [place] [phone] Basophils/100 WBC Auto (Bld) 0.1 % Normal [facility] Comment on above: Performed By: #### P T, PTT, LACT, CMP, MG1, PHOS, CBCDIF ####[address] [phone] DTYPE Auto Diff Normal [facility] Comment on above: Performed By: #### P T, PTT, LACT, CMP, MG1, PHOS, CBCDIF ####[place] [address] [phone] Eosinophils Auto #/vol (Bld) 0.26 10*3/uL Normal <0.46 [facility] Comment on above: Performed By: #### P T, PTT, LACT, CMP, MG1, PHOS, CBCDIF ####[place] [address] [phone] Eosinophils/100 WBC Auto (Bld) 3.0 % Normal [facility] Comment on above: Performed By: #### P T, PTT, LACT, CMP, MG1, PHOS, CBCDIF ####[place] [address] [phone] Erythrocyte distribution width Auto Ratio (RBC) 20.8 % High 11.5-15.0 [facility] Comment on above: Performed By: #### P T, PTT, LACT, CMP, MG1, PHOS, CBCDIF ####[place] [address] [phone] Hematocrit Auto Volume Fraction (Bld) 22.5 % Low 39.0-51.0 [facility] Comment on above: Performed By: #### P T, PTT, LACT, CMP, MG1, PHOS, CBCDIF ####[place] [address]CS[address] [place], [place] [phone] Hemoglobin mass conc (Bld) 7.6 g/dL Low 13.0-17.0 [facility] Comment on above: Performed By: #### P T, PTT, LACT, CMP, MG1, PHOS, CBCDIF ####[place] [address] [phone] Lymphocytes Auto #/vol (Bld) 1.47 10*3/uL Normal 1.00-4.00 [facility] Comment on above: Performed By: #### P T, PTT, LACT, CMP, MG1, PHOS, CBCDIF ####[place] [address] [phone] Lymphocytes/100 WBC Auto (Bld) 16.9 % Normal [facility] Comment on above: Performed By: #### P T, PTT, LACT, CMP, MG1, PHOS, CBCDIF ####[address] [phone] MCH Auto Entitic mass (RBC) 30.6 pG Normal 26.0-34.0 [facility] Comment on above: Performed By: #### P T, PTT, LACT, CMP, MG1, PHOS, CBCDIF ####[address] [phone] MCHC Auto mass conc (RBC) 33.8 g/dL Normal 30.5-36.0 [facility] Comment on above: Performed By: #### P T, PTT, LACT, CMP, MG1, PHOS, CBCDIF ####[address] [phone] MCV Auto Entitic volume (RBC) 90.7 fL Normal 80.0-100.0 [facility] Comment on above: Performed By: #### P T, PTT, LACT, CMP, MG1, PHOS, CBCDIF ####[place] [address], [place] [phone] Monocytes/100 WBC Auto (Bld) 11.1 % Normal [facility] Comment on above: Performed By: #### P T, PTT, LACT, CMP, MG1, PHOS, CBCDIF ####[place] [address]CS[address] [place], [place] [phone] Neutrophils/100 WBC Auto (Bld) 68.9 % Normal [facility] Comment on above: Performed By: #### P T, PTT, LACT, CMP, MG1, PHOS, CBCDIF ####[address]CS[address], [place] [phone] NRBCs 0.0 /100 WBC Normal 0 [facility] Comment on above: Performed By: #### P T, PTT, LACT, CMP, MG1, PHOS, CBCDIF ####[address] [phone] Platelet mean volume Auto Entitic volume (Bld) 11.1 fL Normal 9.0-12.7 [facility] Comment on above: Performed By: #### P T, PTT, LACT, CMP, MG1, PHOS, CBCDIF ####[address] [phone] Platelets Auto #/vol (Bld) 209 10*3/uL Normal 150-400 [facility] Comment on above: Performed By: #### P T, PTT, LACT, CMP, MG1, PHOS, CBCDIF ####[address] [phone] RBC Auto #/vol (Bld) 2.48 10*6/uL Low 4.20-6.00 [facility] Comment on above: Performed By: #### P T, PTT, LACT, CMP, MG1, PHOS, CBCDIF ####[address] [phone] WBC Auto #/vol (Bld) 8.68 10*3/uL Normal 3.70-11.00 [facility] Comment on above: Performed By: #### P T, PTT, LACT, CMP, MG1, PHOS, CBCDIF ####[address] [phone] Comp Metabolic Panelon 11-08 Albumin mass conc 1.8 g/dL Low 3.9-4.9 [facility] Comment on above: Performed By: #### P T, PTT, LACT, CMP, MG1, PHOS, CBCDIF ####[address] [phone] ALP enzyme act/vol 506 U/L High 36-108 [facility] Comment on above: Performed By: #### P T, PTT, LACT, CMP, MG1, PHOS, CBCDIF ####[place] [phone] ALT enzyme act/vol 98 U/L High 10-54 [facility] Comment on above: Performed By: #### P T, PTT, LACT, CMP, MG1, PHOS, CBCDIF ####[place] [phone] Anion gap 3 molar conc 11 mmol/L Normal 9-18 [facility] Comment on above: Performed By: #### P T, PTT, LACT, CMP, MG1, PHOS, CBCDIF ####[place] [phone] AST enzyme act/vol 49 U/L High 14-40 [facility] Comment on above: Performed By: #### P T, PTT, LACT, CMP, MG1, PHOS, CBCDIF ####[place] [phone] Bilirubin mass conc 4.2 mg/dL High 0.2-1.3 [facility] Comment on above: Performed By: #### P T, PTT, LACT, CMP, MG1, PHOS, CBCDIF ####[place] [phone] Calcium mass conc 7.0 mg/dL Low 8.5-10.2 [facility] Comment on above: Performed By: #### P T, PTT, LACT, CMP, MG1, PHOS, CBCDIF ####[address] [phone] Chloride molar conc 102 mmol/L Normal 97-105 [facility] Comment on above: Performed By: #### P T, PTT, LACT, CMP, MG1, PHOS, CBCDIF ####[facility] [address] AveCSan [place], [place] [phone] CO2 molar conc 25 mmol/L Normal 22-30 [facility] Comment on above: Performed By: #### P T, PTT, LACT, CMP, MG1, PHOS, CBCDIF ####[facility] AveCS[address] [place], [place] [phone] Creatinine mass conc 4.56 mg/dL High 0.73-1.22 [facility] Comment on above: Performed By: #### P T, PTT, LACT, CMP, MG1, PHOS, CBCDIF ####[place] [address] [place] [phone] eGFR- Amer. 16 Normal [facility] Comment on above: Performed By: #### P T, PTT, LACT, CMP, MG1, PHOS, CBCDIF ####[facility]CS[address] [place], [place] [phone] GFR/1.73 sq M predicted among non-blacks MDRD vol rate/area (S/P/Bld) 13 . Normal [facility] Comment on above: Result Comment: eGFR (Estimated GFR) Units of measure: mL/min/1.73 meters squaredeGFR is derived from the reexpressed MDRD Study equation using the following parameters: serum creatinine, age, gender and race. The creatinine assay has been calibrated to be traceable to IDMS.An eGFR <60 mL/min/1.73m2 for >3 months is consistent with chronic kidney disease. Refer to KDOQI guidelines for clinical interpretation.In patients with unstable renal function, e.g. those with acute kidney injury, the eGFR may not accurately reflect actual GFR. Performed By: #### P T, PTT, LACT, CMP, MG1, PHOS, CBCDIF ####[facility]CS[address] [place], [place] [phone] Glucose mass conc 101 mg/dL High 74-99 [facility] Comment on above: Result Comment: The [place] Diabetes Association (ADA) provides guidance for cutoff values for fasting glucose and random glucose. The ADA defines fasting as no caloric intake for at least 8 hours. Fasting plasma glucose results between 100 to 125 mg/dL indicate increased risk for diabetes (prediabetes).Fasting plasma glucose results greater than or equal to 126 mg/dL meet the criteria for diagnosis of diabetes. In the absence of unequivocal hyperglycemia, results should be confirmed by repeat testing. In a patient with classic symptoms of hyperglycemia or hyperglycemic crisis, random plasma glucose results greater than or equal to 200 mg/dL meet the criteria for diagnosis of diabetes.Reference: Standards of Medical Care in Diabetes 2016, [place] [employer] Association. Diabetes Care. 2016.39(Suppl 1). Performed By: #### P T, PTT, LACT, CMP, MG1, PHOS, CBCDIF ####[address] [phone] Potassium molar conc 4.8 mmol/L Normal 3.7-5.1 [facility] Comment on above: Performed By: #### P T, PTT, LACT, CMP, MG1, PHOS, CBCDIF ####[address] [phone] Protein mass conc 7.0 g/dL Normal 6.3-8.0 [facility] Comment on above: Performed By: #### P T, PTT, LACT, CMP, MG1, PHOS, CBCDIF ####[address] [phone] Sodium molar conc 138 mmol/L Normal 136-144 [facility] Comment on above: Performed By: #### P T, PTT, LACT, CMP, MG1, PHOS, CBCDIF ####[address] [phone] Urea nitrogen mass conc 53 mg/dL High 9-24 [facility] Comment on above: Performed By: #### P T, PTT, LACT, CMP, MG1, PHOS, CBCDIF ####[place] [address] [place], [place] [phone] Hepatitis C RNAon 11-08-2017 Hepatitis C RNA HCV RNA not detected by PCR. Normal [facility] Comment on above: Result Comment: Refe rence Range: Negative for HCV RNAThe Linear Range of this assay is 15 IU/mL to 100,000,000 IU/mL. Performed By: #### P T, PTT, LACT, CMP, MG1, PHOS, CBCDIF ####[address] [phone] Herpes Simplex IgMon 018 Herpes Simplex IgM 0.63 OD Ratio Normal 0-0.90 [facility] Comment on above: Result Comment: INDE X VALUES/OD RATIOS ARE INTERPRETEDAS FOLLOWS:NEGATIVE SPECIMENS <=0.90EQUIVOCAL SPECIMENS 0.91 TO 1.09POSITIVE SPECIMENS >=1.10 Performed By: #### P T, PTT, LACT, CMP, MG1, PHOS, CBCDIF ####[address] [phone] HSV IgM Qualitative Negative Normal Negative [facility] Comment on above: Result Comment: No s ignificant amount of IgM antibodiesto HSV- 1 or HSV-2 detected. Negative result indicates no current orreactivated infection with HSV-1 or HSV-2. Performed By: #### P T, PTT, LACT, CMP, MG1, PHOS, CBCDIF ####[address] [phone] Magnesiumon 11-08-2017 Magnesium mass conc 2.1 mg/dL Normal 1.7-2.3 [facility] Comment on above: Performed By: #### P T, PTT, LACT, CMP, MG1, PHOS, CBCDIF ####[place] [id number] [place], [place] [phone] PROGRESSon 11-08-2017 Protein mass conc HNO ID: [id number] thor: Majo StJacques) DennisonService: Critical CareAuthor Type: Nurse PractitionerType: Progress NotesFiled: 11/08/2017 3:43 PMNote Text:SERVICE DATE: 11/08/2017SERVICE TIME: 3:42 PMMICU PROGRESS NOTEAdmission Date: 11/03/2017Hospital Day # 5SUBJECTIVEInterval Events: Still requiring transfusion support.OBJECTIVEVital Signs (last filed) Range in last 24hTemp: 36.5 ?C (97.7 ?F) (11/08/17 1200) Temp Min: 36.5 ?C (97.7 ?F) Max:36.8 ?C (98.3 ?F)Pulse: 84 (11/08/17 1300) Pulse Min: 77 Max: 108Resp: (!) 35 (11/08/17 1300) Resp Min: 11 Max: 41BP: 122/69 (11/08/17 1300) BP Min: 100/51 Max: 131/59MAP Non Invasive (Mean Arterial Pressure): 90 (11/08/17 1300) MAP NonInvasive (Mean Arterial Pressure) Min: 71 Max: 90 No Data RecordedSpO2: 99 % (11/08/17 1300) SpO2 Min: 92 % Max: 100 %Pain Score: 0/10 (11/08/17 1439)Fluid Balance:Intake/Output Summary (Last 24 hours) at 11/08/17 0659Last data filed at 11/08/17 0600 Gross per 24 hourIntake 0 mlOutput 1433 mlNet -1433 mlLast Weight: 100.9 kg (222 lb 7.1 oz) (11/08/17 0000)Admit Weight: 94.9 kg (209 lb 3.5 oz) (11/03/17 1407)DIET RENALLines, Drains, and Airways Line Central Line Single Lumen 09/20/17 Peripherally Inserted (PICC) Right Arm49 days Dialysis / Apheresis Double Lumen 11/05/17 1900 Assessment Non-tunneledRight Neck 2 daysVent/Oxygen: Room air.Physical Examination PerformedOral Mucosa: Dry mucous membranesEyes: PERRL Neck: UnremarkableCardiovascular: Regular rhythmRespiratory: Clear to auscultationAbdomen: Soft, Positive bowel sounds. Mildly distended, some pain when heturns to the left, better than yesterday.Extremities: Edema- Yes, 1 + pitting. Peripheral Pulses- 2+ radialpulsesSkin: Abnormalities- Yes, sloughing skin. Breakdown- See RNdocumentationNeurologic: Awake, oriented, Alert, Follows commands and Moving allextremitiesInfusion Medicationsinsulin regularDiagnostic tests reviewed today: Most recent labs and imaging results.PATIENT CHECKLIST? Are restraints necessary: No? Deep vein thrombosis prophylaxis administered? No. Contraindicated.? Stress ulcer prophylaxis? Yes? Nasogastric tube? No? Morejon catheter necessary? No? Is central line essential? Yes? Plan discussed with assigned RN? Yes? Family updated within last 24 hours? YesCARE COORDINATION:Patient Summary:57 year old male with PMHx of Factor V Leiden c/b DVT and PE on Coumadinand Right Total Knee Replacement 07/2017 who was transferred from an OS/t concern for DRESS vs SJS/TEN and RP bleed in the setting of elevatedINR (19.5 on admission to OSH ED).Major Interval Events:11/03: Admitted to MICU from OSH for RP bleed11/04: Hgb drop, transfused 1 PRBC, 2 FFP.11/05: Hgb fell to 6.4 overnight, transfused 1 unit PRBC11/06: Hgb 6.7 overnight, transfused 1U PRBCs, Cr and BUN continue toincrease, UOP decreasing, K 5.8, phos 6.3, LFTs trending down.11/07: Still dropping counts. Holding Vit K and consulting VascularMedicine. Following up with IR on options to control bleeding. Gettingsecond read on CT ABD given ongoing left sided abdominal pain. Started onCVVHD for hyperkalemia.11/08: CVVHD stopped d/t clots. No evidence of acute DVT. Per vascularmedicine, to follow up with Dr. Glez in several weeks and plan torestart coumadin in 3-4 weeks with out bridge.Plan for the Day:-Monitor off CVVHD. No acute indications for dialysis.- Given a second dose of Vit K on 11/07, today INR 1.3- Follow HGB q 8 hours.- Advance diet, renal.- Second read on CT ABD given that patient has ongoing sharp abdominalpain with turning to the left. Will also have them comment on right thighabscess.- IVMP taper per derm recs- Discussed with MICU staff.ASSESSMENT AND PLANOverview, Assessment AND Plan, all Hosp ProblemsActive Hospital Problems as of 11/08/2017 Noted - Resolved Gastrointestinal Retroperitoneal bleed 11/03/2017 - Present Current Assessment AND Plan Assessment: OSH CT A/P (11/03) with RP bleed in setting ofsupratherapeutic INR (19.5) and liver injury secondary to DRESS.PLAN:- Trend HGB q 8 hours.- IR consulted- no intervention at this time, continue medical management.- Vascular medicine consulted. Will plan to update Dr. [phone], the physician who manages the coumadin. Will plan to have afollow up visit with Dr. Glez several weeks post discharge with a planto restart coumadin in 3-4 weeks, without bridge.- No evidence of acute EVT on DVT study 11/07. Hepatitis 11/03/2017 - Present Current Assessment AND Plan Assessment: Likely 2/2 to DRESS. US (11/01) thickened GB wall with asmall amt of pericholecystic fluid. Mild hepatomegaly with with mild fattyinfiltration. Evaluated by surg at OSH with no recommended intervention.Transaminase trending down, hyperbilirubinemia improving. Acute hep panelsignificant for previous B exposure. US with appropriate flow, no biliarydilation, non-specific GB wall thickening.PLAN:- Trend LFTs- F/u auto immune hepatitis w/u.- Send 24 hour copper.- Send DARIELA- Hepatology following, appreciate input.- Given 2 doses of Vit K, 11/06 and 11/07. INR today 1.3 Mild protein-calorie malnutrition (HCC) 11/04/2017 - Present Current Assessment AND Plan PLAN:- Renal diet. Nephrology DAYNA (acute kidney injury) (HCC) 11/03/2017 - Present Current Assessment AND Plan Assessment: Nonoliguric DAYNA/ATN secondary to hemodynamic instability vsDRESS syndrome. Normal SCr at baseline. SCr peaked at OSH (10/30) at 2.7-continues to worsen. Started on CVVHD on 11/06 for hyperkalemia notresponding to medical management. CVVHD stopped on 11/07 with clottingfilter.PLAN:- No acute indications for DIRECTOR CAREER.- Avoid Nephrotoxic agents- Renally dose meds.- Nephrology following, appreciate input.- Follow autoimmune work-up. Hematology Factor V Leiden (HCC) 11/03/2017 - Present Current Assessment AND Plan Assessment: H/o Factor V Leiden with h/o PE/DVT on coumadin.Supratherapetic INR of 19 on presentation to OSH 10/28.PLAN:- Holding anticoagulation in setting of supratherapeutic INR and acuteblood loss anemia.- Consult Vascular Medicine. Will plan to hold anticoagulation for 3-4weeks, no need to bridge per Vascular Medicine.- PAS and SHINE rand.- Encourage ambulation.- Update Dr. Glez [phone], local physician who manages coumadin. Anemia due to blood loss 11/03/2017 - Present Current Assessment AND Plan Assessment: Secondary to RP bleedPLAN:- Trend CBC q 8 hours. Dermatology Drug induced rash with eosinophilia and systemic symptoms 11/03/2017 -Present Current Assessment AND Plan Assessment: Suspected DRESS at OSH with fever, desquamating rash,peripheral eosinophilia, DAYNA, hepatitis in setting of vanco therapy in08/2017 for thigh abscessPLAN:- Supportive management- Methylprednisolone 40 mg daily - Taper by 10 mg q10 days per Derm recs- Appreciate Derm recs.- Will need to follow up with Dermatology in 4-6 weeks, ~15 December. 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 PATIENT NAME: Hung AhumadaoneDATE: November 08, 2017 : 3:42 PM PAGER/CONTACT #: [id number] Normal [facility] Protein mass conc HNO ID: [id number] thor: Loutfi S AboussouanService: Pulmonary DiseaseAuthor Type: PhysicianType: Progress NotesFiled: 11/08/2017 11:02 AMNote Text:MICU StaffWBC 8.7 , AfebrileBlood found on sheets (likely from bladder)Off CVVHD due to clotsBUN/Cr increased 53/4.56 no acute indication for dialysis and his urineoutput is 950Hep C positiveCeruloplasmin lowHemoglobin 7.6 slightly dercreasedLiver enzymes and bilirubin continued to improve ALT and AST 98/4.9, totalbilirubin 4.2Appreciate input from vascular medicine with plans to resume warfarin in3-4 weeks without bridgingDoppler lower extremities negative for acute DVT GERD superficial leftthrombophlebitis of [facility].ASSESSMENTDrug rash with eosinophilia and systemic symptoms (DRESS) presenting withdesquamating rash while on doxycycline and linezolid (with priorvancomycin) for right thigh abcessTransaminitis in the context of DRESS without encephalopathy improvingAcute blood loss anemia (still active) with retroperitoneal bleed duringelevated INR 19.5 (on CT abd/pel 9.AKI no longer oliguricRt TKR , reexploration for possible joint infection(negative)Right thigh abcess 09/[address] RLS 9.2017Pseudomonas UTI Factor V leiden with DVT and PEPLANSteroids MP 40 daily with slow taperPlace foleyCheck urine copperCheck DARIELA, iron studies, AFP, ASMA, AMA, IgGNephrology dermatology and hepatology follow upHold anticoagulation, no need for bridging, resume warfarin 3-4 weeksdepending on stability of blood countsCRRT for solute and volume management currently on hold with no acute needGet official read on his outside CT (right thigh abscess)Follow up H/HSignature: Rosalia Mao, [facility] STAFF PHYSICIAN NOTE OF PERSONAL INVOLVEMENT IN CAREAttending NoteI have personally performed a face to face assessment of the patient andhave reviewed the PA/HIDE HANDLER note. My madrigal findings additions or changes areas above.I have reviewed the progress note obtained and documented by thefellow/resident, and I personally participated in the madrigal components. Myron discussed the case and management of the patient's care. The commentsin this separate note revise or confirm relevant madrigal components of thefellow/resident note. I have personally performed a face to faceassessment and examined the patient. My madrigal findings are as indicated inthis separate note. Other additions or changes: As editedThis patient has a high probability of sudden, clinically significantdeterioration, which requires the highest level of physician preparednessto intervene urgently. I managed/supervised life or organ supportinginterventions that required frequent physician assessment. I devoted myfull attention to the direct care of this patient for the amount of timeindicated below. Time I spent with family or surrogate(s) is includedonly if the patient was incapable of providing the necessary informationor participating in medical decision making. Time devoted to teaching andto any procedures I billed separately is not included.Critical Care Documentation: The patient has the following organ/systemimpairment(s): Complex life-threatening medical problem(s)Time spent providing critical care services: 30+ minutes.Signature: Rosalia Mao, MDDate: 11/08/2017Time: 11:00 AM Normal [facility] Protein mass conc HNO ID: [id number] thor: Tony Brownice: HepatologyAuthor Type: PhysicianType: Progress NotesFiled: 11/08/2017 1:15 PMNote Text:HEPATOLOGY CONSULT PROGRESS NOTEImpression:???Hung Peck is a 57 year old gentleman with history notable for VTEin the setting of F.V.Leiden defieciency on warfarin who underwent recent(R) TKR with post op course c/b (R) thigh abscess (08/2017) and concern forPJI prompting a re-exploration (not actually infected) as well aspseudomonal sepsis from urinary source discharged initially on vacomycin(rash and readmitted) then subsequent linezolid/doxycycline regimen thatwas discontinued after worsening of his desquamative rash, fever, andswelling of face / tongue / hands.?Patient now transferred from [facility] for further management afterpresenting with above symptoms (10/28/17), and since found to be sufferingfrom DRESS currently on prednisone 40 mg Qd (improvement in rash /peripheral eosinophilia) but also with profound coagulopathy (INR >?19aPTT >?180 on arrival), large RP hematoma, Acute liver injury, andoliguric acute renal failure. ??Hepatology consult service asked to evaluate Mr. Peck regarding hisacute liver injury without encephalopathy. ??Etiology of acute liver injury likely multifactorial in the setting ofactive DRESS (Occurs in 87% of patients; predominantly cholestatic)compounded by shock liver (hypotensive requiring pressors for ~ 12 hours)in the background of possible Chronic Hepatitis C (Ab + on acute heppanel). ?Current R Value of 0.48 which is cholestatic in nature but basedoff labs at time of acute worsening in setting of hypotension / pressorsupport was close to 3 which is a mixed picture injury (consistent withabove). ???Recommendations:?--- Continue to follow CMP and PT/INR Qd?-LFTs consistently improving--- Regular neuro checks.--- Will follow with pending serologic evaluation (AFP 45 likely fromliver regeneration, ASMA, AMA, IgG pending)- Ceruloplasmin 15, low, please check 24 h urine copper-TIBC 156, Iron 46, transferrin 29?- Also check acute markers for HSV (sent), CMV neg, EBV neg--- Agree with evaluation for coagulopathy (INR persistently elevateddespite days of FFP)?- INR improving 1.3 today--- Maintain on prednisone for management of DRESS per dermatologyrecommendationsWe will sign off at this time.Discussed with staff, Dr Hollis 5 pm and on weekends please call the GI Fellow medical information specialist which can befound in the On-Call Directory.I have seen and evaluated the patient and discussed the case with jg. I agree with the assessment and plan as documented in thefejose roberto's note. LFT's continue to trend down.Tony Byrd MDLabsCBC, Coags, BMP, Mg, PhosRecent Labs 3511/07/1817734WBC 8.68 -- 10.04 -- 10.65 --HB 7.6* -- 8.1* 7.9* 6.8* --HCT 22.5* -- 24.3* 23.3* 20.2* --PLT 209 -- 188 -- 212 --INR 1.3 -- -- -- 1.4* 1.6*NA 138 136 -- -- 140 --K 4.8 4.6 -- -- 5.2* --CHLOR 102 99 -- -- 104 --CO2 25 23 -- -- 21* --BUN 53* 52* -- -- 65* --CREAT 4.56* 4.38* -- -- 5.48* --GLUC 101* 197* -- -- 97 --CA 7.0* 7.4* -- -- 7.5* --MG 2.1 -- 2.0 -- 2.2 --P 5.5* -- 5.6* -- 6.3* --Liver Function, Amylase, AND LipaseRecent Labs 11/07/1799TPROT 7.0 7.0 6.8ALB 1.8* 1.8* 2.0*ALT 98* 119* 154*AST 49* 57* 85*ALKPHOS 506* 529* 708*TBILI 4.2* 5.7* 7.4*Kacy Crenshaw M.D.Fellow, Gastroenterology AND HepatologySeptember 20176:32 AM Normal [facility] Phosphoruson 11-08-2017 Phosphate mass conc 5.5 mg/dL High 2.7-4.8 [facility] Comment on above: Performed By: #### P T, PTT, LACT, CMP, MG1, PHOS, CBCDIF ####[facility] [address], [place] [phone] Protimeon 11-08-2017 INR Coag RelTime (Bld) 1.3 {INR} Normal 0.9-1.3 [facility] Comment on above: Result Comment: Nini min K Antagonist (VKA) Therapeutic Range: INR 2 to 3 (Target INR of 2.5)Note: For patients treated with VKA drugs, such as warfarin, the [place] [employer] 2012 Guideline recommends a therapeutic INR range of 2 to 3 (target INR of 2.5). This recommendation includes high-risk patients with antiphospholipid syndrome with previous arterial or venous thromboembolism, current-generation mechanical or bioprosthetic aortic heart valve replacement.Note: Patients with mechanical aortic valve replacement and additional risk factors for thromboembolic events (atrial fibrillation, previous thromboembolism, LV dysfunction, hypercoagulable conditions) or an older generation mechanical AVR (i.e., ball in-Cage) or any mechanical MVR should have a INR therapeutic range of 2.5 to 3.5 (target INR of 3).Raghav GH, et al. Chest 2012, 141:7S-47SNishimura RA, et al. [facility] 2017, 70: 252-289 Performed By: #### P T, PTT, LACT, CMP, MG1, PHOS, CBCDIF ####[facility] [place], [place] [phone] PT Sec 13.0 sec Normal 9.7-13.0 [facility] Comment on above: Performed By: #### P T, PTT, LACT, CMP, MG1, PHOS, CBCDIF ####[facility], [place] [phone] THERAPY NTon 11-08-2017 THERAPY NT HNO ID: [id number] thor: Coby (Ot/L) Kendallervice: Occupational TherapyAuthor Type: Occupational TherapistType: Therapy (PT/OT/Speech/Resp)Filed: 11/08/2017 3:56 PMNote Text:Occupational Therapy TreatmentSERVICE DATE: 11/08/2017SERVICE TIME: 1505 to 1515ROOM: [id number] Discharge Disposition: Unable to determine due to criticalcare statusJustification For Post Acute Needs: Anticipate that patient will requiredaily (5x/wk) skilled therapy in a post-acute facility setting at the timeof acute hospital dischargeAnticipated Discharge Needs: UndeterminedOT Recommendations to Nursing: Encourage patient participation with in-bedADL?s;Utilize bed in Chair Position;With assist of 2 peopleOT 6 Clicks Score: 16Precautions/Activity Restrictions: Fall RiskASSESSMENT:Patient demonstrates improved cognitive abilities from last session.Scored WFL per short blessed but demonstrates mild deficit in errorrecognition during clock draw assessment.Patient continues to benefit from additional skilled OT while admittedand from SNF upon discharge to maximize safety and independence withADL/IADL routines and assist in safe transition to home environmentPatient Disposition at Start of Session: OOB in Chair;Call Price in ReachPatient Disposition at End of Session: OOB in Chair;Call Price in ReachTolerated Full SessionOccupational Therapy Problem List: Cognitive Deficit;SafetyDeficits;Impai red Self Care;Decreased Activity Tolerance;DecreasedStrength; Functional Mobility Impairment;Balance ImpairedPatient /Caregiver Goals: Go HomeGoals for Plan of Care:Able to perform HEP with: Modified IndependentFeeding with: Modified IndependentGrooming with: Modified IndependentUpper Body Bathing with: SupervisionUpper Body Dressing with: Modified IndependentLower Body Bathing with: SupervisionLower Body Dressing with: SupervisionToilet Hygiene with: Modified IndependentToilet Transfer with: SupervisionTolerate (minutes of functional activity): 15Functional Activity with: SupervisionDemonstrate Positive Coping Strategies with: Modified IndependentDemonstrate Competence With Education with: Modified IndependentIncreased Awareness of Cognitive Impairments as Related to ADL's/IADL's:VerbalizedMedic ation Management with Strategies: Modified IndependentProgress Toward Goals: Progressing as expectedRehab Potential: GoodPLAN:Treatment Frequency (times per week): 2 Current admissionTreatment Interventions: Education;Self Care / Home Management;FunctionalMobilit y Training;Balance Training;Cognitive TrainingPlan of Care developed with: PatientTREATMENT INTERVENTIONS:Therapy Diagnosis: Decreased activities of daily living (ADL);Signs andSymptoms Involving Cognitive Functions and AwarenessInterventions Provided: Cognitive Training (02660 or G0515)Cognitive Training (G0515) Treatment Minutes (2018 Only): 10$ Cognitive Training (G0515) Billed Units (2018 Only): 1 unitSkilled Intervention(s):Administered short blessed test with performance documented below, patienteducated on purpose of and results of assessmentFacilitated clock draw for assessment of executive function and visualspatial awareness w min cuesTotal Timed Code Treatment Minutes: 10Total Treatment Time (minutes): 10FUNCTIONAL G CODE:OT 6 Clicks Score: 16 (11/08/17 1505)Self Care Current Status (G8987): CK (11/08/17 1505)Self Care Goal Status (G8988): CI (11/08/17 1505)Based on clinical assessment and the score on the 6 Clicks FunctionalAssessment Tool, the G code and corresponding severity modifiers aredocumented above.SUBJECTIVE:Current Hospital Course: Chart reviewed and no significant medical updatesrelevant to therapy were notedReason for Occupational Therapy Consult: decr cognition, decr adlperformanceRelevant Past Medical History: R TKR july 2017, DVT, PEPatient Report: people keep telling me I look better todayHome EnvironmentPatient Lives With: Significant OtherAssistance Available: 24 HourEntry To Home: StairsNumber Of Stairs Into Home: 2Prior Functional Level: Within Functional Limits (recently using a walkerafter last admit)OBJECTIVE:Orientation Deficits: Other: See Comment (resolved)Responsiveness: AlertFollows Commands: 3-step CommandsCueing to Follow Commands: (n/a)Attention Deficits: (n/a)Executive Function Deficits: Medication compliance (reading label/correctdose/time);Prob belia SolvingMedication Compliance Deficit: Minimal impairmentProblem Solving Deficit: (n/a)Psychosocial Deficit: mild anxietyShort Blessed Final Score: 0CURRENT FUNCTIONAL STATUS:Current Activities of Daily Living Assist LevelFeeding Set UpGrooming Contact Guard AssistanceBathing Upper Body Moderate AssistanceBathing Lower Body Moderate AssistanceDressing Upper Body Minimal AssistanceDressing Lower Body Moderate AssistanceToileting Maximal AssistanceInstrumental Activities of Daily Living Assist LevelMeal/Beverage PrepLight CleaningLaundryMedication Management with StrategiesFunctional Mobility Assist Level not assessed at this date, see PT notefor formal mobility assessmentRollingSupine to SitSit to SupineScootingSit to StandStand to SitBed to ChairToilet/CommodeFunctiona l MobilityPlease see discipline specific clinical documentation flowsheet forcomplete details for this therapy evaluation/treatment.SIGNHILLARY RE: Coby Gonzalez OT/L PATIENT NAME: Hung AhumadaoneDATE: November 08, 2017 : 3:53 PM Normal [facility] THERAPY NT HNO ID: [id number] thor: Alfreda (Pt) MagnerService: Physical TherapyAuthor Type: Physical TherapistType: Therapy (PT/OT/Speech/Resp)Filed: 11/08/2017 3:25 PMNote Text:Physical Therapy TreatmentSERVICE DATE: 11/08/2017SERVICE TIME: 1439 to 1502ROOM: [id number] Discharge Disposition: Unable to determine due to criticalcare statusAnticipated Discharge Needs: UndeterminedPT Recommendations to Nursing: With assist of 1 person;Transfer to/fromchair;OOB for Meals;Ambulate with deviceDevice: Wheeled WalkerPT 6 Clicks Score: 20Precautions/Activity Restrictions: Fall RiskASSESSMENT :Able to tolerate pivot transfer with CGA and WW for safety. Unable to fullassess mobility due to concerns for bleeding with mobility, nursing and MDaware. Will assess gait on next session.Patient Disposition at Start of Session: Supine in BedPatient Disposition at End of Session: OOB in ChairTolerated Full SessionPhysical Therapy Problem List: Decreased Activity Tolerance;DecreasedStrength; Balance Impaired;Functional Mobility Impairment;Cognitive DeficitPatient /Caregiver Goals: Go HomeGoals for Plan of Care:Rolling with: Contact Guard AssistanceTransfer supine to/from sit with: Contact Guard AssistanceTransfer sit to/from stand with: Contact Guard AssistanceAmbulate with: Contact Guard AssistanceDistance: 50Device: Wheeled WalkerProgress Toward Goals: Progressing as expectedRehab Potential: Excellent Based on progress towards goalsPLAN:Treatment Frequency (times per week): 3 Current admissionTreatment Interventions: Education;Energy ConservationTraining;Strengt hening;Functional Mobility Training;Balance TrainingPlan of Care developed with: PatientTREATMENT INTERVENTIONS:Therapy Diagnosis: Reduced mobility-otherInterventions Provided: Therapeutic Activity (96642)Therapeutic Activity (77193) Treatment Minutes: 232 unitsSkilled Intervention(s): Education on the role of PT and the importance ofmobility. Bed mobility with VC for good Log roll technique and LEadvancement CGA provided for safety. Seated therex ankle pumps x 10, LAQ x10 verbal cueing for slow controlled transitions for safety and todecrease dizziness. Pivot transfer with CGA and verbal cueing for weightshift and lateral stepping. Education on increasing OOB Activities anddiscussion on energy conservation. Skilled intervention for ICU line/roomsetup for safe mobility environment as well as for vital sign monitoringto assess hemodynamic and respiratory response to activity to prescribesafe intensity and duration of activity/exercise during aboveinterventions. Will determine discharge when appropriate.Highest Level of Mobility (JH-HLM)This scale indicates the objective performance level this date and doesnot reflect clinical judgment of capability. Today the patient scored a 5on the JH-HLM. Explanations are noted in the chart below.?? Criteria ScoreWalk 250+ feet 8? 25+ feet 7? 10+ steps 6Stand > 1 minute 5Chair Transfer to chair 4Bed Sitting at EOB 3? Turning self/bed activity* 2? Only laying 1*Includes PROM/AROM, bed exercises and UE/LE movementTotal Timed Code Treatment Minutes: 23Total Treatment Time (minutes): 23FUNCTIONAL G CODE:PT 6 Clicks Score: 20 (11/08/17 1439)Mobility: Walking and Moving Around Current Status (G8978): CJ ()Mobility: Walking and Moving Around Goal Status (G8979): CI ()Based on clinical assessment and the score on the 6 Clicks FunctionalAssessment Tool, the G code and corresponding severity modifiers aredocumented above.SUBJECTIVE:Current Hospital Course: Chart reviewed and no significant medical updatesrelevant to therapy were notedPatient Report: Did they figure anything out? patient agreeable to PTsessionHome EnvironmentPatient Lives With: Significant OtherAssistance Available: 24 HourEntry To Home: StairsNumber Of Stairs Into Home: 2Prior Functional Level: Within Functional Limits (recently using a walkerafter last admit)OBJECTIVE:CURRENT FUNCTIONAL STATUS: further mobility deferred due to concernsfor patient safety and toleranceCurrent Functional Mobility Assist Level Additional InformationRolling Contact Guard AssistanceSupine to Sit Contact Guard AssistanceSit to Supine Contact Guard AssistanceScooting Contact Guard AssistanceSit to Stand Contact Guard AssistanceStand to Sit Contact Guard AssistanceBed to Chair Contact Guard Assistance Bed To Chair Transfer Type: StandPivotBed To Chair Transfer Equipment: Gait BeltToilet/CommodeGaitStairs Curb StepCar TransferPlease see discipline specific clinical documentation flowsheet forcomplete details for this therapy evaluation/treatment.SIGNATU RE: Alfreda Rajan PT PATIENT NAME: Hung AhumadaoneDATE: November 08, 2017 : 3:23 PM Normal [facility] THERAPY NT HNO ID: [id number] thor: Alfreda (Pt) MagnerService: Physical TherapyAuthor Type: Physical TherapistType: Therapy (PT/OT/Speech/Resp)Filed: 11/08/2017 10:59 AMNote Text:Physical Therapy TreatmentSERVICE DATE: 11/08/2017SERVICE TIME: 0835 to 09ROOM: [id number] Discharge Disposition: Unable to determine due to criticalcare statusAnticipated Discharge Needs: UndeterminedPT Recommendations to Nursing: With assist of 1 person;Transfer to/fromchair;OOB for Meals;Ambulate with deviceDevice: Wheeled WalkerPT 6 Clicks Score: 19Precautions/Activity Restrictions: Fall RiskASSESSMENT :Unable to fully assess mobility due to increased bleeding with mobilitythis session, nursing and MD aware. Will determine discharge whenappropriate.Patient Disposition at Start of Session: Supine in BedPatient Disposition at End of Session: Supine in BedTolerated Full SessionPhysical Therapy Problem List: Decreased Activity Tolerance;DecreasedStrength; Balance Impaired;Functional Mobility Impairment;Cognitive DeficitPatient /Caregiver Goals: Go HomeGoals for Plan of Care:Rolling with: Contact Guard AssistanceTransfer supine to/from sit with: Contact Guard AssistanceTransfer sit to/from stand with: Contact Guard AssistanceAmbulate with: Contact Guard AssistanceDistance: 50Device: Wheeled WalkerProgress Toward Goals: Progressing as expectedRehab Potential: Excellent Based on progress towards goalsPLAN:Treatment Frequency (times per week): 3 Current admissionTreatment Interventions: Education;Energy ConservationTraining;Strengt hening;Functional Mobility Training;Balance TrainingPlan of Care developed with: PatientTREATMENT INTERVENTIONS:Therapy Diagnosis: Reduced mobility-otherInterventions Provided: Therapeutic Activity (96957)Therapeutic Activity (83976) Treatment Minutes: 453 unitsSkilled Intervention(s): Education on the role of PT and the importance ofmobility. Bed mobility with VC for good Log roll technique and LEadvancement CGA provided for safety. Seated therex ankle pumps x 10, LAQ X10, marches x 10, Cueing for proper use of WW and good hand placement forsafety. Sit to stand transfer x 3 trials with min assist and min verbalcueing for safety. Sit to supine with min assist. Bilateral rolling withCGA and verbal cueing for safety. Education on increasing independence andOOB Activities. Extra time required to increase independence. Skilledintervention for ICU line/room setup for safe mobility environment as wellas for vital sign monitoring to assess hemodynamic and respiratoryresponse to activity to prescribe safe intensity and duration ofactivity/exercise during above interventions. Will determine dischargewhen appropriate.Vital SignsPre Assessment: BPPre BP: 112/56Pre BP Position: SupineIntra Assessment 1: BP Intra 1Intra BP 1: 122/66Intra BP Position 1: SittingHighest Level of Mobility (-HLM)This scale indicates the objective performance level this date and doesnot reflect clinical judgment of capability. Today the patient scored a 5on the -HLM. Explanations are noted in the chart below.?? Criteria ScoreWalk 250+ feet 8? 25+ feet 7? 10+ steps 6Stand > 1 minute 5Chair Transfer to chair 4Bed Sitting at EOB 3? Turning self/bed activity* 2? Only laying 1*Includes PROM/AROM, bed exercises and UE/LE movementTotal Timed Code Treatment Minutes: 45Total Treatment Time (minutes): 45FUNCTIONAL G CODE:PT 6 Clicks Score: 19 (11/08/17 0835)Mobility: Walking and Moving Around Current Status (G8978): CK ()Mobility: Walking and Moving Around Goal Status (G8979): CI ()Based on clinical assessment and the score on the 6 Clicks FunctionalAssessment Tool, the G code and corresponding severity modifiers aredocumented above.SUBJECTIVE:Current Hospital Course: Chart reviewed; , 11/06: Hgb 6.7 overnight,transfused 1U PRBCs, Cr and BUN continue to increase, UOP decreasing, K5.8, phos 6.3, LFTs trending down.11/07: Still dropping counts. Holding Vit K and consulting VascularMedicine. Following up with IR on options to control bleeding. Gettingsecond read on CT ABD given ongoing left sided abdominal pain. Started onCVVHD for hyperkalemia.Patient Report: cover me up before my comes in patient agreeable toPT sessionHome EnvironmentPatient Lives With: Significant OtherAssistance Available: 24 HourEntry To Home: StairsNumber Of Stairs Into Home: 2Prior Functional Level: Within Functional Limits (recently using a walkerafter last admit)OBJECTIVE:CURRENT FUNCTIONAL STATUS: further mobility deferred due to concernsfor patient safety and toleranceCurrent Functional Mobility Assist Level Additional InformationRolling Contact Guard AssistanceSupine to Sit Contact Guard AssistanceSit to Supine Contact Guard AssistanceScooting Contact Guard AssistanceSit to Stand Minimal AssistanceStand to Sit Minimal Assistance N/A this dateBed to Chair Minimal Assistance N/A this date Bed To Chair Transfer Type: Stand PivotBed To Chair Transfer Equipment: Gait Belt;Wheeled WalkerToilet/CommodeGaitStai rsCurb StepCar TransferPlease see discipline specific clinical documentation flowsheet forcomplete details for this therapy evaluation/treatment.SIGNATU RE: Alfreda Rajan PT PATIENT NAME: Hung AhumadaoneDATE: November 08, 2017 : 10:53 AM Normal [facility] Basic Metabolic Panlon 11-07 Anion gap 3 molar conc 14 mmol/L Normal 9-18 [facility] Comment on above: Performed By: #### P T, PTT, LACT, CMP, MG1, PHOS, CBCDIF ####[facility] [place], [place] [phone] Calcium mass conc 7.4 mg/dL Low 8.5-10.2 [facility] Comment on above: Performed By: #### P T, PTT, LACT, CMP, MG1, PHOS, CBCDIF ####[facility] [place], [place] [phone] Chloride molar conc 99 mmol/L Normal 97-105 [facility] Comment on above: Performed By: #### P T, PTT, LACT, CMP, MG1, PHOS, CBCDIF ####[facility] [place], [place] [phone] CO2 molar conc 23 mmol/L Normal 22-30 [facility] Comment on above: Performed By: #### P T, PTT, LACT, CMP, MG1, PHOS, CBCDIF ####[facility] [address] AveCSan [place], [place] [phone] Creatinine mass conc 4.38 mg/dL High 0.73-1.22 [facility] Comment on above: Performed By: #### P T, PTT, LACT, CMP, MG1, PHOS, CBCDIF ####[facility] [place] [address] [phone] eGFR- Amer. 17 [facility] Comment on above: Performed By: #### P T, PTT, LACT, CMP, MG1, PHOS, CBCDIF ####[address] [phone] GFR/1.73 sq M predicted among non-blacks MDRD vol rate/area (S/P/Bld) 14 . Normal [facility] Comment on above: Result Comment: eGFR (Estimated GFR) Units of measure: mL/min/1.73 meters squaredeGFR is derived from the reexpressed MDRD Study equation using the following parameters: serum creatinine, age, gender and race. The creatinine assay has been calibrated to be traceable to IDMS.An eGFR <60 mL/min/1.73m2 for >3 months is consistent with chronic kidney disease. Refer to KDOQI guidelines for clinical interpretation.In patients with unstable renal function, e.g. those with acute kidney injury, the eGFR may not accurately reflect actual GFR. Performed By: #### P T, PTT, LACT, CMP, MG1, PHOS, CBCDIF ####[place] [address] [place], [place] [phone] Glucose mass conc 197 mg/dL High 74-99 [facility] Comment on above: Result Comment: The [place] Diabetes Association (ADA) provides guidance for cutoff values for fasting glucose and random glucose. The ADA defines fasting as no caloric intake for at least 8 hours. Fasting plasma glucose results between 100 to 125 mg/dL indicate increased risk for diabetes (prediabetes).Fasting plasma glucose results greater than or equal to 126 mg/dL meet the criteria for diagnosis of diabetes. In the absence of unequivocal hyperglycemia, results should be confirmed by repeat testing. In a patient with classic symptoms of hyperglycemia or hyperglycemic crisis, random plasma glucose results greater than or equal to 200 mg/dL meet the criteria for diagnosis of diabetes.Reference: Standards of Medical Care in Diabetes 2016, [place] Diabetes Association. Diabetes Care. 2016.39(Suppl 1). Performed By: #### P T, PTT, LACT, CMP, MG1, PHOS, CBCDIF ####[facility] [address], [place] [phone] Potassium molar conc 4.6 mmol/L Normal 3.7-5.1 [facility] Comment on above: Performed By: #### P T, PTT, LACT, CMP, MG1, PHOS, CBCDIF ####[facility], [place] [phone] Sodium molar conc 136 mmol/L Normal 136-144 [facility] Comment on above: Performed By: #### P T, PTT, LACT, CMP, MG1, PHOS, CBCDIF ####[facility] [address] [place], [place] [phone] Urea nitrogen mass conc 52 mg/dL High 9-24 [facility] Comment on above: Performed By: #### P T, PTT, LACT, CMP, MG1, PHOS, CBCDIF ####[facility] [place], [place] [phone] CASE MANAGEMon 11-07-2017 CASE MANAGEM HNO ID: [id number] thor: Uyen (Rn) JESSI Lottervice: Case ManagementAuthor Type: Registered NurseType: Care Mgt Progress NoteFiled: 11/07/2017 1:10 PMNote Text:CARE MANAGEMENT PROGRESS NOTESERVICE DATE: 11/07/2017SERVICE TIME: 1:09 PM LOS: 4 daysNeeds Prior to Discharge: To Be DeterminedScreening [facility] [employer] [facility].SIGNATURE: Uyen Lott RN PATIENT NAME: Hung AhumadaoneDATE: November 07, 2017 : 1:09 PM PAGER/CONTACT #: [phone] Normal [facility] CBCon 11-07-2017 Absolute nRBC <0.01 Normal <0.01 [facility] Comment on above: Performed By: #### P T, PTT, LACT, CMP, MG1, PHOS, CBCDIF ####[place] [address] [phone] Erythrocyte distribution width Auto Ratio (RBC) 20.7 % High 11.5-15.0 [facility] Comment on above: Performed By: #### P T, PTT, LACT, CMP, MG1, PHOS, CBCDIF ####[address] [phone] Hematocrit Auto Volume Fraction (Bld) 24.3 % Low 39.0-51.0 [facility] Comment on above: Performed By: #### P T, PTT, LACT, CMP, MG1, PHOS, CBCDIF ####[place] [address] [phone] Hemoglobin mass conc (Bld) 8.1 g/dL Low 13.0-17.0 [facility] Comment on above: Performed By: #### P T, PTT, LACT, CMP, MG1, PHOS, CBCDIF ####[place] [phone] MCH Auto Entitic mass (RBC) 30.0 pG Normal 26.0-34.0 [facility] Comment on above: Performed By: #### P T, PTT, LACT, CMP, MG1, PHOS, CBCDIF ####[place] [address] [phone] MCHC Auto mass conc (RBC) 33.3 g/dL Normal 30.5-36.0 [facility] Comment on above: Performed By: #### P T, PTT, LACT, CMP, MG1, PHOS, CBCDIF ####[address] [place], [place] [phone] MCV Auto Entitic volume (RBC) 90.0 fL Normal 80.0-100.0 [facility] Comment on above: Performed By: #### P T, PTT, LACT, CMP, MG1, PHOS, CBCDIF ####[address] [phone] Platelet mean volume Auto Entitic volume (Bld) 10.8 fL Normal 9.0-12.7 [facility] Comment on above: Performed By: #### P T, PTT, LACT, CMP, MG1, PHOS, CBCDIF ####[address] [phone] Platelets Auto #/vol (Bld) 188 10*3/uL Normal 150-400 [facility] Comment on above: Performed By: #### P T, PTT, LACT, CMP, MG1, PHOS, CBCDIF ####[address] [phone] RBC Auto #/vol (Bld) 2.70 10*6/uL Low 4.20-6.00 Cl [facility] Comment on above: Performed By: #### P T, PTT, LACT, CMP, MG1, PHOS, CBCDIF ####[address] [phone] WBC Auto #/vol (Bld) 10.04 10*3/uL Normal 3.70-11.00 C [facility] Comment on above: Performed By: #### P T, PTT, LACT, CMP, MG1, PHOS, CBCDIF ####[address] [phone] CBC and Differentialon 11-07 Abs Baso 0.00 k/uL Normal <0.11 [facility] Comment on above: Performed By: #### P T, CMP, MG1, PHOS, CBCDIF ####[facility] [phone] Abs Haskell 0.76 k/uL Normal <0.87 [facility] Comment on above: Performed By: #### P T, CMP, MG1, PHOS, CBCDIF ####[place] [address] [phone] Abs Neut 9.41 k/uL High 1.45-7.50 [facility] Comment on above: Performed By: #### P T, CMP, MG1, PHOS, CBCDIF ####[place] [address] [phone] Anisocytosis Auto Ql (Bld) Present Normal [facility] Comment on above: Performed By: #### P T, CMP, MG1, PHOS, CBCDIF ####[place] [address] [phone] Basophils/100 WBC Auto (Bld) 0.0 % Normal [facility] Comment on above: Performed By: #### P T, CMP, MG1, PHOS, CBCDIF ####[place] [address] [phone] DTYPE Manual Diff Normal [facility] Comment on above: Performed By: #### P T, CMP, MG1, PHOS, CBCDIF ####[place] [address] [phone] Eosinophils Auto #/vol (Bld) 0.10 10*3/uL Normal <0.46 [facility] Comment on above: Performed By: #### P T, CMP, MG1, PHOS, CBCDIF ####[place] [address] [phone] Eosinophils/100 WBC Auto (Bld) 0.9 % Normal [facility] Comment on above: Performed By: #### P T, CMP, MG1, PHOS, CBCDIF ####[place] [address] [phone] Erythrocyte distribution width Auto Ratio (RBC) 20.3 % High 11.5-15.0 [facility] Comment on above: Performed By: #### P T, CMP, MG1, PHOS, CBCDIF ####[place] [address] [phone] Hematocrit Auto Volume Fraction (Bld) 20.2 % Low 39.0-51.0 [facility] Comment on above: Performed By: #### P T, CMP, MG1, PHOS, CBCDIF ####[place] [address] [phone] Hemoglobin mass conc (Bld) 6.8 g/dL Low 13.0-17.0 [facility] Comment on above: Performed By: #### P T, CMP, MG1, PHOS, CBCDIF ####[place] [address] [phone] Lymphocytes Auto #/vol (Bld) 0.38 10*3/uL Low 1.00-4.00 [facility] Comment on above: Performed By: #### P T, CMP, MG1, PHOS, CBCDIF ####[place] [address] [phone] Lymphocytes/100 WBC Auto (Bld) 3.6 % Normal [facility] Comment on above: Performed By: #### P T, CMP, MG1, PHOS, CBCDIF ####[place] [address] [phone] MCH Auto Entitic mass (RBC) 30.4 pG Normal 26.0-34.0 [facility] Comment on above: Performed By: #### P T, CMP, MG1, PHOS, CBCDIF ####[place] [address] [place], [place] [phone] MCHC Auto mass conc (RBC) 33.7 g/dL Normal 30.5-36.0 [facility] Comment on above: Performed By: #### P T, CMP, MG1, PHOS, CBCDIF ####[place] [address] [place], [place] [phone] MCV Auto Entitic volume (RBC) 90.2 fL Normal 80.0-100.0 [facility] Comment on above: Performed By: #### P T, CMP, MG1, PHOS, CBCDIF ####[place] [address] [phone] Monocytes/100 WBC Auto (Bld) 7.1 % Normal [facility] Comment on above: Performed By: #### P T, CMP, MG1, PHOS, CBCDIF ####[place] [address] [phone] Neutrophils/100 WBC Auto (Bld) 88.4 % Normal [facility] Comment on above: Performed By: #### P T, CMP, MG1, PHOS, CBCDIF ####[place] [address], [place] [phone] Platelet mean volume Auto Entitic volume (Bld) 11.1 fL Normal 9.0-12.7 [facility] Comment on above: Performed By: #### P T, CMP, MG1, PHOS, CBCDIF ####[place] [address] [place], [place] [phone] Platelets Auto #/vol (Bld) 212 10*3/uL Normal 150-400 [facility] Comment on above: Performed By: #### P T, CMP, MG1, PHOS, CBCDIF ####[place] [address] [place], [place] [phone] Platelets Auto #/vol (Bld) Platelet estimate adequate Normal [facility] Comment on above: Performed By: #### P T, CMP, MG1, PHOS, CBCDIF ####[place] [address] [place], [place] [phone] Polychromasia Slight Normal [facility] Comment on above: Performed By: #### P T, CMP, MG1, PHOS, CBCDIF ####[place] [address], [place] [phone] RBC Auto #/vol (Bld) 2.24 10*6/uL Low 4.20-6.00 [facility] Comment on above: Performed By: #### P T, CMP, MG1, PHOS, CBCDIF ####[place] [address] [place], [place] [phone] RBC Fragments Few Normal [facility] Comment on above: Performed By: #### P T, CMP, MG1, PHOS, CBCDIF ####[place] [address] [place], [place] [phone] Target Cells Few Normal [facility] Comment on above: Performed By: #### P T, CMP, MG1, PHOS, CBCDIF ####[facility] [place], [place] [phone] WBC Auto #/vol (Bld) 10.65 10*3/uL Normal 3.70-11.00 C [facility] Comment on above: Performed By: #### P T, CMP, MG1, PHOS, CBCDIF ####[place] [address] [place], [place] [phone] CONSULTon 11-07-2017 CONSULT HNO ID: [id number] thor: Hung Felton: Vascular MedicineAuthor Type: PhysicianType: ConsultsFiled: 11/07/2017 2:01 PMNote Text:[facility] STAFF PHYSICIAN NOTE OF PERSONAL INVOLVEMENT IN CAREThe patient is a pleasant 57-year-old man with a reported history offactor V Leiden mutation, deep vein thrombosis in 2004 and pulmonaryembolism in 2005 for which he's been anticoagulated on warfarin eversince. 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 His right knee surgery was inJune followed by complicated urinary tract infection, right thigh abscess,need for IV antibiotics complicated by adverse reactions to theantibiotics. He developed a severely elevated INR (19.5) [facility] seen on CT scan(11/03/17). He's been treated with vitamin K and fresh frozen plasma andhas received 7 units of blood since admission on 11/03/17. His most recenthemoglobin was 7.9 g/dL early this morning. He denies any chest pain,shortness of breath, or pain in the extremities. He's also developedsevere renal impairment with a creatinine of 5.48 mg/dL (down from a highof 6.14 yesterday). He is receiving hemodialysis at the time of my visit. He has been hemodynamically stable with a most recent blood pressure of113/55 mmHg and heart rate of 86 bpm. There is been no follow-up imagingof the RP bleed. The outside facility CT scan images are uploaded and Ireviewed them. While I am not a radiologist, on the images I see a largefluid collection with varying degrees of attenuation posterior to the leftkidney causing anterior displacement of the kidney with extension ofhematoma into the pelvis. Interventional radiology was consulted andadvised no aggressive intervention and to monitor closely and correct thecoagulopathy given that the patient is hemodynamically stable. Thepatient denies any prior history of bleeding and has had no further venousthromboembolic events since 2005. On physical exam the patient is layingcomfortably in bed without pain. He is receiving hemodialysis. He isnormotensive. The abdomen is soft and nontender. No ecchymosis isvisible on either side. 1+ pitting edema is palpated pretibiallybilaterally. The extremities are warm and well perfused.Impression/recommen dations:Clearly anticoagulants are contraindicated. Complete reversal ofanticoagulation is recommended. Monitor coags closely and give additionalFFP and or vitamin K as needed. Continue to monitor for stabilization ofhemoglobin and hematocrit. I recommend continuing to hold anticoagulationfor at least 2-4 weeks prior to considering resuming it. Monitor for anysigns or symptoms of recurrent venous thromboembolism i.e. chest pain,shortness of breath, worsening extremity edema or pain. Recommendproviding careful nonpharmacologic VTE prophylaxis while hospitalized.Intermittent pneumatic compression pumps on the legsPhysical therapy evaluation and mobilization as soon as ableCompression SHINE hose on the bilateral lower extremitiesThe patient's Coumadin is followed by his primary care physician . The patient has been on Coumadin for years and has establishedprocesses for having his INR checked with results sent to his primary carephysician who in turn calls and advises on his Coumadin dosing. Irecommend updating Dr. Glez on the patient's status and plan of care.The patient should have follow-up arranged within a couple of weeks withDr. Glez with plans to resume his Coumadin in 3-4 weeks if hishemoglobin is stable and there are no further signs of bleeding. Bridgingis not recommended since it is been so long since his last venousthromboembolic event and higher risk of bleeding.Thank you for consulting, signing off.Please call back if additional questions arise.I have reviewed the documentation obtained and documented by the Residentand have reviewed and updated the problem list as appropriate. I havepersonally performed a face to face assessment of the patient and havepersonally participated in the madrigal components. I have discussed the caseand management of the patient's care.Hung Osborne D.O., LESTER, Angelia PhysicianRobyanely and Francisca Cao Department of Cardiovascular MedicineSecu health [facility] of [facility], Desk J3-5Phone: VASCULAR MEDICINE INITIAL CONSULTSERVICE DATE: 11/07/2017Opinion/advice regarding: Factor V Leiden recommendations in the settingof DRESS syndromeSubjectiveCHIEF COMPLAINT: increased lethargy, swollen hands, face, tongue, newfeverHPI: Hung Peck is a 57 YOM w/ a PMHx of Factor V Leiden (c/bunprovoked DVT 2004, 1 year of warfarin AC; then unprovoked PE 2005,indefinite warfarin), who recently underwent right total knee replacementc/b pseudamonas UTI c/b drug reactions 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, who isbeing consulted for Factor V Leiden AC management in the setting of aretroperitoneal hemorrhage.Right knee replacement (07/2017, c/b pseudomonas UTI 09/07, right thighabscess, Rx ceftriaxone --> vanco), vanco allergy (09/2017, Rx changed toZyvox AND doxy), rash concerning for SJS (Zyvox D/C, continued on doxy), whopresented with lethargy, swollen hands/face/tongue, and new fever to OSHw/ INR 19.5, course complicated by transaminitis and DRESS/SJS/TEN, andtransferred [facility] with concerns for RP bleed as per CT on 11/03.Assessment: OSH CT A/P (11/03) with RP bleed in setting of supratherapeuticINR- INR on admission to OSH 10/28 >19.5. S/p 3 units of FFP- INR on 11/03 prior to transfer 7.4 received 2 units of FPPPLAN:- Consult IR, images reviewed with IR, it is a venous bleed, will monitorfor now given that patient is HDS- Correct coagulopathyPatient reports having had an unproved right LE DVT in 2004, he was put onwarfarin for about a a year and then discontinued. 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 Current Assessment AND Plan? ? Assessment: Secondary to RP bleedPLAN:- Trend CBC. Blood product support as needed.? Factor V Leiden (HCC) 11/03/2017 - Present? Current Assessment AND Plan? ? Assessment: H/o Factor V Leiden with h/o PE/DVT on coumadin.Supratherapetic INR of 19 on presentation to OSH 10/28.PLAN:- Holding anticoagulation in setting of supratherapeutic INR and anemia- will correct coagulopathy given new RP bleed? Supratherapeutic INR 11/03/2017 - Present? Current Assessment AND Plan? ? Assessment: S/p vitamin K and 5 units FFP at OSH. Persistentsupratherapeutic INR thought to be secondary to liver dysfunctionPLAN:- Monitor INR.- Correct coagulopathyToday is MICU Day #4:11/03: Admitted to MICU from OSH for RP bleed11/04: Hgb drop, transfused 1 PRBC, 2 FFP.11/05: Hgb fell to 6.4 overnight, transfused 1 unit PRBC11/06: Hgb 6.7 overnight, transfused 1U PRBCs, Cr and BUN continue toincrease, UOP decreasing, K 5.8, phos 6.3, LFTs trending downPatient was given vit K 11/06, 4 day INR trend: 2.4 --> 2.5 --> 1.6 --> 1.4(today)Current PT 14.9, platelets 212, hgb 7.9Has been transfused 1U pRBC each night for last 4 days. 2U FFP yesterday.No past medical history on file.No past surgical history on file.SOCIAL HISTORY:Smoking: NoDrink alcohol: yes, 1-2 drinks per weekMarried: yesChildren: yes, 1 daughterWork outside the home: Yes, auto mechanicDrug abuse: noSTD's: noNo prescriptions on file.Current Facility-Administered Medications:0.9% NaCl 2-10 mL 2-10 mL INTRAVENOUS PRNsodium citrate 4% 3-6 mL catheter lock 3-6 mL INTRALUMINAL PRNphosphorus 500 mg tab(s) (K PHOS NEUTRAL) 500 mg ORAL/FEEDING TUBE PRNOrsodium phosphate 15 mmol in D5W 250 mL 15 mmol INTRAVENOUS PRNOrsodium phosphate 30 mmol in D5W 250 mL 30 mmol INTRAVENOUS PRNOrsodium phosphate 45 mmol in D5W 250 mL 45 mmol INTRAVENOUS PRNinsulin regular human injection (short acting) (NovoLIN R,HumuLIN R)SUBCUTANEOUS w MEALS AND HSpotassium chloride ER 40 mEq tab(s) (K-DUR, KLOR-CON) 40 mEq ORAL/FEEDINGTUBE q 2 H PRNmagnesium sulfate in water 4-6 g in sterile water 50 ml 4-6 g INTRAVENOUSPRN0.9% NaCl 3-5 mL 3-5 mL INTRAVENOUS q 12 H0.9% NaCl 10 mL 10 mL INTRAVENOUS q 12 H0.9% NaCl 20 mL 20 mL INTRAVENOUS PRNinsulin regular 250 units in NaCl 0.9% 250 mL iv infusion - ICU NOMOGRAM0.5-30 Units/hr INTRAVENOUS CONTINUOUSdextrose 50% in water 25-50 mL syringe 12.5-25 g INTRAVENOUS PRNdextrose 40 % 15 g 15 g ORAL PRNglucagon 1 mg injection (GLUCAGEN) 1 mg SUBCUTANEOUS PRNoxyCODONE IR 5-10 mg tab(s) (ROXICODONE) 5-10 mg ORAL/FEEDING TUBE q 4 HPRNAndHYDROmorphone 0.5-1 mg injection (DILAUDID) 0.5-1 mg INTRAVENOUS q 4 H PRNmethylPREDNISolone (MEDROL) tab(s) 40 mg 40 mg ORAL DAILYALLERGIESAllergen Reactions- Linezolid Rash Concern of DRESS- Vancomycin Rash Concern of DRESSObjectiveREVIEW OF SYSTEMS:General: (-) changes in weight, changes in appetite, weakness, fatigue,fever, chills, night sweatsHeme: (-) lumps/bumps, bleeding, bruising, infectionsSkin: (+) desquamating rashHead/eyes: (-) COLLAZO, trauma,changes in vision, eye pain, diplopia, floaters,flashesResp: (-) cough, phlegm, hemoptysis, pleurisy, wheezingCardiac: (-) angina, dyspnea; (+) LE edemaGI: (-) N, V, C, D, reflux, melena, hematochezia; (+) painGU: (-) dysuria, hematuriaNeuro: (-) paresthesias, paresis, tremor, seizures; (+) syncope x2 atbeginning of each hospital stayPHYSICAL EXAM:Vital Signs: BP 112/58 Pulse 73 Temp 36.4 ?C (97.5 ?F) (Oral) Resp 17 Ht 188 cm (6' 2) Wt 94.6 kg (208 lb 8.9 oz) SpO2 96% BMI 26.78 kg/m?General: Resting comfortably, no acute distress, AANDOx3, cooperative,pleasant demeanorNeck: supple, no LAD, no JVDEyes: PERRLA, no scleral icterusOropharynx: moist, without exudate or obvious lesionsLungs: clear to auscultation bilaterally, no wheezing, rhonchi, or stridorHeart: RRR without murmur, gallop, or rubsAbdomen: firm but non-rigid, non-distended; tender to deep palpation alongleft quadrantsExtremities: 1+ pitting pedal edema, good cap refillSkin: desquamating rash involving face; erythema of chest, abdomen, legs.Neurologic: no focal neurological deficits, sensation and strength grosslyintactImpression/Eduar mmendationsHung Peck is a 57 YOM w/ a PMHx of Factor V Leiden (c/b unprovokedDVT 2004, 1 year of warfarin AC; then unprovoked PE 2005, indefinitewarfarin), who recently underwent right total knee replacement c/bpseudamonas UTI c/b drug reactions 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, who is beingconsulted for Factor V Leiden AC management in the setting of aretroperitoneal hemorrhage.His high INR was likely 2/2 potentiation by DRESS/SJS/ vanco drugreaction. 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 Normal [facility] CONSULT PROGon 11-07-2017 Protein mass conc HNO ID: [id number] thor: Dung Sortoice: NephrologyAuthor Type: PhysicianType: Consult Progress NoteFiled: 11/07/2017 4:34 PMNote Text:CONSULT PROGRESS NOTENEPHROLOGY SERVICESERVICE DATE: 11/07/2017SERVICE TIME: 9:41 AMSUBJECTIVEINTERVAL HISTORY:- started on CVVHD 11/06, QD 3000, UF 80, access RIJ temp DC. Clotted 1time at 0820 today.- on RA, no pressors- UOP improved, 1 L, after 120 mg lasixMEDICATIONS:Current hospital medications:[START ON 11/08/2017] pantoprazole 40 mg CUP (PROTONIX) 40 mg ORAL/FEEDINGTUBE DAILY (6 AM)[START ON 11/13/2017] methylPREDNISolone sod succinate(PF) 30 mg injection(SOLU-Medrol) 30 mg INTRAVENOUS DAILY[START ON 11/23/2017] methylPREDNISolone sod succinate(PF) 20 mg injection(SOLU-Medrol) 20 mg INTRAVENOUS DAILY[START ON 12/03/2017] methylPREDNISolone sod succinate(PF) 10 mg injection(SOLU-Medrol) 10 mg INTRAVENOUS DAILY0.9% NaCl 2-10 mL 2-10 mL INTRAVENOUS PRNsodium citrate 4% 3-6 mL catheter lock 3-6 mL INTRALUMINAL PRNphosphorus 500 mg tab(s) (K PHOS NEUTRAL) 500 mg ORAL/FEEDING TUBE PRNsodium phosphate 15 mmol in D5W 250 mL 15 mmol INTRAVENOUS PRNsodium phosphate 30 mmol in D5W 250 mL 30 mmol INTRAVENOUS PRNsodium phosphate 45 mmol in D5W 250 mL 45 mmol INTRAVENOUS PRNinsulin regular human injection (short acting) (NovoLIN R,HumuLIN R)SUBCUTANEOUS w MEALS AND HSpotassium chloride ER 40 mEq tab(s) (K-DUR, KLOR-CON) 40 mEq ORAL/FEEDINGTUBE q 2 H PRNmagnesium sulfate in water 4-6 g in sterile water 50 ml 4-6 g INTRAVENOUSPRN0.9% NaCl 3-5 mL 3-5 mL INTRAVENOUS q 12 H0.9% NaCl 10 mL 10 mL INTRAVENOUS q 12 H0.9% NaCl 20 mL 20 mL INTRAVENOUS PRNinsulin regular 250 units in NaCl 0.9% 250 mL iv infusion - ICU NOMOGRAM0.5-30 Units/hr INTRAVENOUS CONTINUOUSdextrose 50% in water 25-50 mL syringe 12.5-25 g INTRAVENOUS PRNdextrose 40 % 15 g 15 g ORAL PRNglucagon 1 mg injection (GLUCAGEN) 1 mg SUBCUTANEOUS PRNoxyCODONE IR 5-10 mg tab(s) (ROXICODONE) 5-10 mg ORAL/FEEDING TUBE q 4 HPRNHYDROmorphone 0.5-1 mg injection (DILAUDID) 0.5-1 mg INTRAVENOUS q 4 H PRNmethylPREDNISolone (MEDROL) tab(s) 40 mg 40 mg ORAL DAILYOBJECTIVEPHYSICAL EXAM:BP 112/58 Pulse 73 Temp 36.4 ?C (97.5 ?F) (Oral) Resp 17 Ht188 cm (6' 2) Wt 94.6 kg (208 lb 8.9 oz) SpO2 96% BMI 26.78kg/m?Intake/Output Summary (Last 24 hours) at 11/07/17 0941Last data filed at 11/07/17 0800 Gross per 24 hourIntake 1088 mlOutput 1798 mlNet -710 mlConstitutional: No acute distressEyes: Conjunctiva clear, nl EOMNeck: trachea midline, no palpable massCardiovascular: RRR, nl S1/D5Jvviwpntdzt: normal inspiratory effort, CTA b/lAbdomen: soft, non tender, non distended, normal bowel soundsExtremities: no clubbing, +1 peripheral edemaNeurologic: non-focalPsychiatric: AAO x 3, normal affectVascular access: RIJ temp DCDATA:Diagnostic tests reviewed for today's visit:Recent Labs 11/06/1814NA 140 -- 138 139 140 142 < > 143K 5.2* -- 5.9* 5.8* 5.2* 5.0 < > 5.0CHLOR 104 -- 103 106* 109* 109* < > 110*CO2 21* -- 19* 19* 19* 21* < > 19*BUN 65* -- 73* 66* 60* 51* < > 32*CREAT 5.48* -- 6.14* 5.48* 4.74* 4.40* < > 2.48*GLUC 97 -- 158* 112* 97 109* < > 102*ANION 15 -- 16 14 12 12 < > 14CA 7.5* -- 7.2* 7.4* 7.1* 7.1* < > 8.1*P 6.3* 7.2* -- 6.3* 6.7* -- -- 6.9*MG 2.2 2.2 -- 2.3 2.2 -- -- 2.2< > = values in this interval not displayed.Recent Labs 11/07/1799WBC -- 10.65 12.50* 13.90*HB 7.9* 6.8* 8.2* 6.7*HCT 23.3* 20.2* 24.4* 19.8*PLT -- 212 220 180Recent Labs 3COLOR Senia*CLARITY Cloudy*UGLUC NegativeUBILI NegativeUKET NegativeSPGR 1.012UHB 2+*UPH 6.0UPROT 30*NITRITES NegativeLEUKEST 1+*UWBC 11-25*URBC >25*Recent Labs 11/03/1813LACT 2.0 4.7* 4.9*Recent Labs 11/06/1809FER -- -- 1,435.0*TRANSFERSAT -- -- 29HB 7.9* < > 8.2*< > = values in this interval not displayed.Recent Labs CA 7.5*P 6.3*ALB 1.8*Recent Labs [id number] Positive*GDTUJCNCOR79 year old male with h/o factor V leidin, s/p R TKA c/b pseudomonas UTIand right thigh abscess s/p multiple antibiotics c/b desquamating rashconcerning for DRESS vs SJS/TEN further c/b shock, DAYNA, transaminitis andRP bleed. Transferred to [facility] for furtther management.??DAYNA , oliguric, UOP imrpved with lasix- Baseline Cr <1- Etiology likely 2/2 ischemic ATN in the setting of hypotension and RPbleed. Possibly AIN (peripheral eosinophilia at the OSH, no urine eosdocumented). He did get steroids at the OSH after all antibiotics werestopped. Cr was improving on transfer here but has started worsening againlikely from RP bleed and acute anemia. Intertestingly, the patient alsohad proteinuria with UPC 3 gm at the OSH on 10/31. Autoimmune work up sentat the OSH pending (daughter will try to get us the results).- started on CVVHD 11/06 due to worsening solutes, hyperkalemia andoptimize volume?Hyperkalemia: improving with CVVHDmild hypervolemiaMild high anion gap metabolic acidosis due to renal failureRetroperitoneal hematomaShock liverDRESSPLAN- c/w CVVHD QD 3000 ml/hr (30 cc/kg/hr), UF 80, increase as tolerated,will stop by midnight and re-evaluate DIRECTOR CAREER needs especially improvement inUOP after lasix.- Check magnesium and phosphorus daily and replete as needed- Dose medications for eGFR 20 - 30 mL/min- Non renal feeds while on CRRT- Daily weights- Strict I/O's3:45 PMI was paged by commercial tire service technician, CVVHD with multiple clots, unable to useheparn due to retroperitoneal bleed. So will d/c CVVHD for now and getSTAT BMP.Please call nephrology fellow tasha if potassium is still elevated.Allegra Lr MDNephrology and Hypertension FellowP#[id number]/183:[id number] PMSIGNATURE: Allegra Lr MD, Fellow PATIENT NAME: Hung AhumadaoneDATE: November 07, 2017 : 9:41 AM PAGER: [phone] AFTER HOUR CONCERNS BETWEEN 5PM - 7AM CONTACT ON-CALL NEPHROLOGYFELLOW __Staff note:I have reviewed the progress note obtained and documented by the Fellowand I personally participated in the madrigal components. I have discussed thecase and management of the patient's care. The following comments reviseor confirm relevant madrigal components of the note.Patient is 57 year old male with factor V Leiden, and retroperitonealbleeding who was transferred to [facility] for further management.Kidney disease - acute tubular injury in the setting of shock - seen on continuous dialysis, orders confirmed - good clearances and stable electrolytes - continue current ratesDung YangALHAJI escamillaeptember 2017 Normal [facility] Comp Metabolic Panelon 11-07 Albumin mass conc 1.8 g/dL Low 3.9-4.9 [facility] Comment on above: Performed By: #### P T, CMP, MG1, PHOS, CBCDIF ####[place] [address] [place], [place] [phone] ALP enzyme act/vol 529 U/L High 36-108 [facility] Comment on above: Performed By: #### P T, CMP, MG1, PHOS, CBCDIF ####[address], [place] [phone] ALT enzyme act/vol 119 U/L High 10-54 [facility] Comment on above: Performed By: #### P T, CMP, MG1, PHOS, CBCDIF ####[address], [place] [phone] Anion gap 3 molar conc 15 mmol/L Normal 9-18 [facility] Comment on above: Performed By: #### P T, CMP, MG1, PHOS, CBCDIF ####[address], [place] [phone] AST enzyme act/vol 57 U/L High 14-40 [facility] Comment on above: Performed By: #### P T, CMP, MG1, PHOS, CBCDIF ####[address], [place] [phone] Bilirubin mass conc 5.7 mg/dL High 0.2-1.3 [facility] Comment on above: Performed By: #### P T, CMP, MG1, PHOS, CBCDIF ####[facility] [place], [place] [phone] Calcium mass conc 7.5 mg/dL Low 8.5-10.2 [facility] Comment on above: Performed By: #### P T, CMP, MG1, PHOS, CBCDIF ####[place] [address] [place] [phone] Chloride molar conc 104 mmol/L Normal 97-105 [facility] Comment on above: Performed By: #### P T, CMP, MG1, PHOS, CBCDIF ####[place] [address] [place] [phone] CO2 molar conc 21 mmol/L Low 22-30 [facility] Comment on above: Performed By: #### P T, CMP, MG1, PHOS, CBCDIF ####[place] [address] [place] [phone] Creatinine mass conc 5.48 mg/dL High 0.73-1.22 [facility] Comment on above: Performed By: #### P T, CMP, MG1, PHOS, CBCDIF ####[facility] [place] [phone] eGFR- Amer. 13 [facility] Comment on above: Performed By: #### P T, CMP, MG1, PHOS, CBCDIF ####[facility] [place], [place] [phone] GFR/1.73 sq M predicted among non-blacks MDRD vol rate/area (S/P/Bld) 11 . Normal [facility] Comment on above: Result Comment: eGFR (Estimated GFR) Units of measure: mL/min/1.73 meters squaredeGFR is derived from the reexpressed MDRD Study equation using the following parameters: serum creatinine, age, gender and race. The creatinine assay has been calibrated to be traceable to IDMS.An eGFR <60 mL/min/1.73m2 for >3 months is consistent with chronic kidney disease. Refer to KDOQI guidelines for clinical interpretation.In patients with unstable renal function, e.g. those with acute kidney injury, the eGFR may not accurately reflect actual GFR. Performed By: #### P T, CMP, MG1, PHOS, CBCDIF ####[facility] [address] [place], [place] [phone] Glucose mass conc 97 mg/dL Normal 74-99 [facility] Comment on above: Result Comment: The [place] Diabetes Association (ADA) provides guidance for cutoff values for fasting glucose and random glucose. The ADA defines fasting as no caloric intake for at least 8 hours. Fasting plasma glucose results between 100 to 125 mg/dL indicate increased risk for diabetes (prediabetes).Fasting plasma glucose results greater than or equal to 126 mg/dL meet the criteria for diagnosis of diabetes. In the absence of unequivocal hyperglycemia, results should be confirmed by repeat testing. In a patient with classic symptoms of hyperglycemia or hyperglycemic crisis, random plasma glucose results greater than or equal to 200 mg/dL meet the criteria for diagnosis of diabetes.Reference: Standards of Medical Care in Diabetes 2016, [place] Diabetes Association. Diabetes Care. 2016.39(Suppl 1). Performed By: #### P T, CMP, MG1, PHOS, CBCDIF ####[facility] [place], [place] [phone] Potassium molar conc 5.2 mmol/L High 3.7-5.1 [facility] Comment on above: Performed By: #### P T, CMP, MG1, PHOS, CBCDIF ####[facility] [address], [place] [phone] Protein mass conc 7.0 g/dL Normal 6.3-8.0 [facility] Comment on above: Performed By: #### P T, CMP, MG1, PHOS, CBCDIF ####[facility] [place], [place] [phone] Sodium molar conc 140 mmol/L Normal 136-144 [facility] Comment on above: Performed By: #### P T, CMP, MG1, PHOS, CBCDIF ####[place] [address] Av[address] [place] [phone] Urea nitrogen mass conc 65 mg/dL High 9-24 [facility] Comment on above: Performed By: #### P T, CMP, MG1, PHOS, CBCDIF ####[place] [address] [address] [place] [phone] Hematocriton 11-07-2017 Hematocrit Auto Volume Fraction (Bld) 23.3 % Low 39.0-51.0 [facility] Comment on above: Performed By: #### H CT, HGB ####[place] [address] [place] [phone] Hemoglobinon 11-07-2017 Hemoglobin mass conc (Bld) 7.9 g/dL Low 13.0-17.0 [facility] Comment on above: Performed By: #### H CT, HGB ####[place] [phone] Magnesiumon 11-07-2017 Magnesium mass conc 2.0 mg/dL Normal 1.7-2.3 [facility] Comment on above: Performed By: #### P T, PTT, LACT, CMP, MG1, PHOS, CBCDIF ####[place] [address] [phone] Magnesium mass conc 2.2 mg/dL Normal 1.7-2.3 [facility] Comment on above: Performed By: #### P T, CMP, MG1, PHOS, CBCDIF ####[facility] [place] [phone] NUTRITIONon 11-07-2017 NUTRITION HNO ID: [id number] thor: Eliane Sanderservice: NST-Nutrition Support TeamAuthor Type: Registered DietitianType: NutritionFiled: 11/07/2017 11:44 AMNote Text:NUTRITION SUPPORT TEAM PROGRESS NOTESERVICE DATE: 11/07/2017SERVICE TIME: 09:30 AMRECOMMENDED DIAGNOSIS: MILD PROTEIN-CALORIE MALNUTRITION per RegisteredDietitian on 11/04NUTRITION CARE PLANIntervention:1. Advance diet when medically appropriate to Regular2. Ensure Enlive with meals3. Magic cup once a day4. Will order Nepro (low electrolyte supplement) for HS snack (490 kcal,19 g protein)Monitor and Evaluation:Goal: Meet >75% of estimated needsDischarge Nutrition Recommendations:To be determinedPer HPI: Hung Peck is a 57 year old gentleman with history notablefor VTE in the setting of F.V.Leiden defieciency on warfarin who underwentrecent (R) TKR with post op course c/b (R) thigh abscess (08/2017) andconcern for PJI prompting a re-exploration (not actually infected) as wellas pseudomonal sepsis from urinary source discharged initially onvacomycin (rash and readmitted) then subsequent linezolid/doxycyclineregimen that was discontinued after worsening of his desquamative rash,fever, and swelling of face / tongue / hands.?Patient now transferred from [facility] for further management afterpresenting with above symptoms (10/28/17), and since found to be sufferingfrom DRESS currently on prednisone 40 mg Qd (improvement in rash /peripheral eosinophilia) but also with profound coagulopathy (INR >?19aPTT >?180 on arrival), large RP hematoma, Acute liver injury, andoliguric acute renal failure. ??Interval History: Remains on full liquid diet. Concern for GIB per d/w ICUteam due to drop in H/H. On CRRT due to elevated lytes. Patient statestolerating diet but appetite down. Drinking Ensure but only consuming 1-2per day. Encouraged patient to increase po as much as he can due toincreased demand for nutrients (CRRT, DRESS). Pt verbalized understanding.Nutritional Intake: Nutritional Intake Prior to Admission:<75% estimated energy needs over the past 11 day(s)11/07: PO intakes varies 40-80% meals x 3 days. No supplement intakedocumented but per patient drinking 1 or 2 per day (add'l 350-700 kcal)FINANCIAL ASSISTANT: poor po/appetite x 1 week d/t taste changes, dry mouth.Current Diet Order DIET LIQUID Order Specific Question: Liquid Diet Answer: FULL LIQUIDLines and Drains:Central Line Single Lumen 09/20/17 Peripherally Inserted (PICC) Right Arm(Active)Height: 188 cm (6' 2)Admission Weight: 94.9 kg (209 lb 3.5 oz)Current Weight: 94.6 kg (208 lb 8.9 oz)Body mass index is 26.78 kg/m?.UBW 200 lbs/90.9 kgDosing Weight: 90.9 kgEstimated kilocalorie needs: 4080-5510 kilocalories determined by 25-30kcal/kgEstimated protein needs: 109-137 grams determined by 1.2-1.5 g/kg DosingweightEstimated fluid needs: 2300 milliliters based on 1 mL per kcal?Recent Labs 11/07/1799GLUC -- 97BUN -- 65*CREAT -- 5.48*NA -- 140K -- 5.2*CHLOR -- 104CO2 -- 21*ALB -- 1.8*P -- 6.3*HB 7.9* 6.8*HCT 23.3* 20.2*WBC -- 10.65MG -- 2.2Current Facility-Administered Medications:0.9% NaCl 2-10 mL 2-10 mL INTRAVENOUS PRNsodium citrate 4% 3-6 mL catheter lock 3-6 mL INTRALUMINAL PRNphosphorus 500 mg tab(s) (K PHOS NEUTRAL) 500 mg ORAL/FEEDING TUBE PRNOrsodium phosphate 15 mmol in D5W 250 mL 15 mmol INTRAVENOUS PRNOrsodium phosphate 30 mmol in D5W 250 mL 30 mmol INTRAVENOUS PRNOrsodium phosphate 45 mmol in D5W 250 mL 45 mmol INTRAVENOUS PRNinsulin regular human injection (short acting) (NovoLIN R,HumuLIN R)SUBCUTANEOUS w MEALS AND HSpotassium chloride ER 40 mEq tab(s) (K-DUR, KLOR-CON) 40 mEq ORAL/FEEDINGTUBE q 2 H PRNmagnesium sulfate in water 4-6 g in sterile water 50 ml 4-6 g INTRAVENOUSPRN0.9% NaCl 3-5 mL 3-5 mL INTRAVENOUS q 12 H0.9% NaCl 10 mL 10 mL INTRAVENOUS q 12 H0.9% NaCl 20 mL 20 mL INTRAVENOUS PRNinsulin regular 250 units in NaCl 0.9% 250 mL iv infusion - ICU NOMOGRAM0.5-30 Units/hr INTRAVENOUS CONTINUOUSdextrose 50% in water 25-50 mL syringe 12.5-25 g INTRAVENOUS PRNdextrose 40 % 15 g 15 g ORAL PRNglucagon 1 mg injection (GLUCAGEN) 1 mg SUBCUTANEOUS PRNoxyCODONE IR 5-10 mg tab(s) (ROXICODONE) 5-10 mg ORAL/FEEDING TUBE q 4 HPRNAndHYDROmorphone 0.5-1 mg injection (DILAUDID) 0.5-1 mg INTRAVENOUS q 4 H PRNmethylPREDNISolone (MEDROL) tab(s) 40 mg 40 mg ORAL DAILYDate 11/06/17 0700 - 11/07/17 0659 11/07/17 0700 - 11/08/17 0659Shift 1013-2172 9199-0022 7211-2470 24 Hour Total 3777-6687 9108-23028378-6548 24 Hour TotalINTAKE PO 550 550 PO 550 550 Blood Products 487 351 838 PRBC Intake (mL) 350 350 FFP mL 487 487 Packed Red Blood Cells Number of Units 1 1 Shift Total 550 487 351 1388OUTPUT Urine 430 1 601 1032 200 200 Void (ml) 250 600 850 200 200 Urine Incontinence/Not Saved 2 x 2 x Urine Not Saved 1 1 2 Tube Output ([REMOVED] Indwelling Urinary Catheter 11/06/17 0953Foley 14 Fr 11/06/17 1900) 180 180 # of BMs Stool Incontinence 2 x 2 x Number of BMs 2 x 2 x 1 x 1 x Dialysis 87 629 716 176 176 Dialysis Output (Ultrafiltration) 87 629 716 176 176 Shift Total 950 52 0354 1748 376 376Weight (kg) 94.5 94.5 94.6 94.6 94.6 94.6 94.6 94.6Vitamin and Mineral Labs in the past year:Recent Labs [id number] 156*FE 46FER 1,435.0*MNT Billing Type: Re-assess/15 min 2 unitsSIGNATURE: Eliane Mccall RD, LD, CNSC PATIENT NAME: Hung AhumadaoneDATE: November 07, 2017 : 11:37 AM PAGER: [phone] [facility] PLAN OF CAREon 11-07-2017 PLAN OF CARE HNO ID: [id number] thor: Allegra Lr (Fel)Service: NephrologyAuthor Type: FellowType: Plan of CareFiled: 11/07/2017 8:30 PMNote Text:Urine Microscopy FindingsSept2017 8:29 PMRBCs- Average Number of Cells/HPF: 10-20/HPF Description: NormomorphicWBCs- Average Number of Cells/HPF: 1-3/HPFCASTS- Average Number/LPF: None SeenComments- Additional Findings: Epithelial CellsProvider: Allegra Lr, MDReference Range:WBC 0-5/HPFRBC 0-3/HPFCasts 0Bacteria NegativeYeast NegativeEpithelial Cells None SeenCrystals None SeenTrichomonas None SeenLab Address: [facility] [address] [place] [address] [facility] PROGRESSon 11-07-2017 Protein mass conc HNO ID: [id number] thor: Majo Barrett ([facility]) DennisonService: Critical CareAuthor Type: Nurse PractitionerType: Progress NotesFiled: 11/07/2017 2:15 PMNote Text:SERVICE DATE: 11/07/2017SERVICE TIME: 2:15 PMMICU PROGRESS NOTEAdmission Date: 11/03/2017Hospital Day # 4SUBJECTIVEInterval Events: Still requiring transfusion support.OBJECTIVEVital Signs (last filed) Range in last 24hTemp: 36.8 ?C (98.2 ?F) (11/07/17 1200) Temp Min: 36.3 ?C (97.4 ?F) Max:36.9 ?C (98.5 ?F)Pulse: 86 (11/07/17 1200) Pulse Min: 68 Max: 117Resp: 19 (11/07/17 1200) Resp Min: 12 Max: 25BP: 113/55 (11/07/17 1200) BP Min: 106/61 Max: 136/64MAP Non Invasive (Mean Arterial Pressure): 75 (11/07/17 1200) MAP NonInvasive (Mean Arterial Pressure) Min: 75 Max: 94 No Data RecordedSpO2: 95 % (11/07/17 1200) SpO2 Min: 92 % Max: 98 %Pain Score: 0/10 (11/07/17 1008)Fluid Balance:Intake/Output Summary (Last 24 hours) at 11/07/17 0659Last data filed at 11/07/17 0600 Gross per 24 hourIntake 1388 mlOutput 1748 mlNet -360 mlLast Weight: 94.6 kg (208 lb 8.9 oz) (11/07/17 0445)Admit Weight: 94.9 kg (209 lb 3.5 oz) (11/03/17 1407)DIET LIQUIDLines, Drains, and Airways Line Central Line Single Lumen 09/20/17 Peripherally Inserted (PICC) Right Arm48 days Dialysis / Apheresis Double Lumen 11/05/17 1900 Assessment Non-tunneledRight Neck 1 dayVent/Oxygen: Room air.Physical Examination PerformedOral Mucosa: Dry mucous membranesEyes: PERRL Neck: UnremarkableCardiovascular: Regular rhythmRespiratory: Clear to auscultationAbdomen: Soft, Positive bowel sounds. Mildly distended, sharp pain when heturns to the left.Extremities: Edema- Yes, 1 + pitting. Peripheral Pulses- 2+ radialpulsesSkin: Abnormalities- Yes, sloughing facial skin, improving per patientreport. Small areas of sloughing between fingers. Breakdown- See RNdocumentationNeurologic: Awake, oriented, Alert, Follows commands and Moving allextremitiesInfusion Medicationsinsulin regularDiagnostic tests reviewed today: Most recent labs and imaging results.PATIENT CHECKLIST? Are restraints necessary: No? Deep vein thrombosis prophylaxis administered? No. Contraindicated.? Stress ulcer prophylaxis? Yes? Nasogastric tube? No? Morejon catheter necessary? No? Is central line essential? Yes? Plan discussed with assigned RN? Yes? Family updated within last 24 hours? YesCARE COORDINATION:Patient Summary:57 year old male with PMHx of Factor V Leiden c/b DVT and PE on Coumadinand Right Total Knee Replacement 07/2017 who was transferred from an OSHd/t concern for DRESS vs SJS/TEN and RP bleed in the setting of elevatedINR (19.5 on admission to OSH ED).Major Interval Events:11/03: Admitted to MICU from OSH for RP bleed11/04: Hgb drop, transfused 1 PRBC, 2 FFP.11/05: Hgb fell to 6.4 overnight, transfused 1 unit PRBC11/06: Hgb 6.7 overnight, transfused 1U PRBCs, Cr and BUN continue toincrease, UOP decreasing, K 5.8, phos 6.3, LFTs trending down.11/07: Still dropping counts. Holding Vit K and consulting VascularMedicine. Following up with IR on options to control bleeding. Gettingsecond read on CT ABD given ongoing left sided abdominal pain. Started onCVVHD for hyperkalemia.Plan for the Day:- Started on CVVHD on 11/06, tolerating.- DC Vit K.- DVT studies. May need IVC filter.- Follow HGB q 8 hours.- Follow up on autoimmune work-up.- Second read on CT ABD given that patient has ongoing sharp abdominalpain with turning to the left. Will also have them comment on right thighabscess.- IVMP taper per derm recs- Discussed with MICU staff.ASSESSMENT AND PLANOverview, Assessment AND Plan, all Hosp ProblemsActive Hospital Problems as of 11/07/2017 Noted - Resolved Gastrointestinal Retroperitoneal bleed 11/03/2017 - Present Current Assessment AND Plan Assessment: OSH CT A/P (11/03) with RP bleed in setting ofsupratherapeutic INR (19.5) and liver injury secondary to DRESS.PLAN:- Trend HGB q 8 hours.- Correct coagulopathy, hold vitamin K.- IR consulted- no intervention at this time, continue medical management. Hepatitis 11/03/2017 - Present Current Assessment AND Plan Assessment: Likely 2/2 to DRESS. US (11/01) thickened GB wall with asmall amt of pericholecystic fluid. Mild hepatomegaly with with mild fattyinfiltration. Evaluated by surg at OSH with no recommended intervention.Transaminase trending down, hyperbilirubinemia improving. Acute hep panelsignificant for previous B exposure. US with appropriate flow, no biliarydilation, non-specific GB wall thickening.PLAN:- Trend LFTs- F/u auto immune hepatitis w/u- Hepatology following, appreciate input.- Hold Vit K supplementation, want to avoid increasing risk of clots. Mild protein-calorie malnutrition ([facility]) 11/04/2017 - Present Current Assessment AND Plan PLAN:- Full liquid diet - Advance as appropriate Nephrology DAYNA (acute kidney injury) ([facility]) 11/03/2017 - Present Current Assessment AND Plan Assessment: Nonoliguric DAYNA/ATN secondary to hemodynamic instability vsDRESS syndrome. Normal SCr at baseline. SCr peaked at OSH (10/30) at 2.7-continues to worsen. Started on CVVHD on 11/06 for hyperkalemia notresponding to medical management.PLAN:- Avoid Nephrotoxic agents- Renally dose meds, dose for CVVHD.- Nephrology following, appreciate input.- Follow autoimmune work-up. Hematology Factor V Leiden ([facility]) 11/03/2017 - Present Current Assessment AND Plan Assessment: H/o Factor V Leiden with h/o PE/DVT on coumadin.Supratherapetic INR of 19 on presentation to OSH 10/28.PLAN:- Holding anticoagulation in setting of supratherapeutic INR and acuteblood loss anemia.- Consult Vascular Medicine, hold Vit K for now. Should we consider aprovocation test in IR given high risk for clots off anticoagulation??- DVT studies. Will need to follow closely. May need IVC filter.- Encourage ambulation. Anemia due to blood loss 11/03/2017 - Present Current Assessment AND Plan Assessment: Secondary to RP bleedPLAN:- Trend CBC q 8 hours. Dermatology Drug induced rash with eosinophilia and systemic symptoms 11/03/2017 -Present Current Assessment AND Plan Assessment: Suspected DRESS at OSH with fever, desquamating rash,peripheral eosinophilia, DAYNA, hepatitis in setting of vanco therapy in08/2017 for thigh abscessPLAN:- Supportive management- Methylprednisolone 40 mg daily - Taper by 10 mg q10 days per Derm recs- Appreciate Derm recs.- Will need to follow up with Dermatology in 4-6 weeks, ~15 December. Makeappointment prior to DC.Medication and Non-Pharmacologic VTE Prophylaxis/Ricoldbkzctufb19 /14/18 1615 activity - mobilize patient (ri,oh)11/03/17 1445 vte pharmacologic prophylaxis contraindicated (ri,oh)11/03/17 1445 pneumatic compression stockings (ri,oh)11/03/17 1445 activity - mobilize patient (ri,oh)VTE Prophylaxis: VTE prophylaxis appropriatePlan of care discussed with: ICU TeamSIGNATURE: Majo Herbert APRN.CNP PATIENT NAME: Hung AhumadaoneDATE: November 07, 2017 : 2:15 PM PAGER/CONTACT #: [phone] [facility] Protein mass conc HNO ID: [id number] thor: Tony Garzarvice: HepatologyAuthor Type: PhysicianType: Progress NotesFiled: 11/07/2017 1:39 PMNote Text:HEPATOLOGY CONSULT PROGRESS NOTEImpression:Hung Peck is a 57 year old gentleman with history notable for VTEin the setting of F.V.Leiden defieciency on warfarin who underwent recent(R) TKR with post op course c/b (R) thigh abscess (08/2017) and concern forPJI prompting a re-exploration (not actually infected) as well aspseudomonal sepsis from urinary source discharged initially on vacomycin(rash and readmitted) then subsequent linezolid/doxycycline regimen thatwas discontinued after worsening of his desquamative rash, fever, andswelling of face / tongue / hands.?Patient now transferred from [facility] for further management afterpresenting with above symptoms (10/28/17), and since found to be sufferingfrom DRESS currently on prednisone 40 mg Qd (improvement in rash /peripheral eosinophilia) but also with profound coagulopathy (INR > 19aPTT > 180 on arrival), large RP hematoma, Acute liver injury, andoliguric acute renal failure.?Hepatology consult service asked to evaluate Mr. Peck regarding hisacute liver injury without encephalopathy.?Etiology of acute liver injury likely multifactorial in the setting ofactive DRESS (Occurs in 87% of patients; predominantly cholestatic)compounded by shock liver (hypotensive requiring pressors for ~ 12 hours)in the background of possible Chronic Hepatitis C (Ab + on acute heppanel). Current R Value of 0.48 which is cholestatic in nature but basedoff labs at time of acute worsening in setting of hypotension / pressorsupport was close to 3 which is a mixed picture injury (consistent withabove).?Recommendations: --- Continue to follow CMP and PT/INR Qd -LFTs improving - Otherwise RUQ US without nodular contour, but cannot excludepossibility of underlying chronic liver disease.--- Regular neuro checks.--- Will follow with pending serologic evaluation (AFP 45 likely fromliver regeneration, ASMA, AMA, IgG pending) - Would add DARIELA- Ceruloplasmin 15, low, please check 24 h urine copper-TIBC 156, Iron 46, transferrin 29 - Also check acute markers for HSV (sent), CMV, EBV--- Agree with evaluation for coagulopathy (INR persistently elevateddespite days of FFP) - Consider mixing study as well due to prolonged aPTT - Vitamin K 10 mg IV Qd x 3 days (day 2), INR improving 1.4 today - Defer further FFP unless active bleeding or plan for procedure--- If above evaluations unrevealing and hepatic function continues tachoandrea will consider TJLBx with pressure measurements.--- Maintain on prednisone for management of DRESS per dermatologyrecommendations?T roverto fernandes for allowing us to participate in the care of destin Adam continue to follow along.SUBJECTIVE:Interval History:Doing well today, on dialysis but tolerating wellObjectiveVITALS: BP 112/58 Pulse 73 Temp 36.4 ?C (97.5 ?F) (Oral) Resp 17 Ht 188 cm (6' 2) Wt 94.6 kg (208 lb 8.9 oz) SpO2 96% BMI 26.78kg/m?General appearance: well appearing, alert, in no acute distressSkin: Dry scaling rash across face, chest, shoulders and hands.Eyes: Mildly icteric sclera.ENT: Mucous membranes dryLungs: lungs clear to auscultation, no wheezing or rhonchiHeart: RRR without murmurAbdomen: Soft with mild tenderness throughout, without rebound orrigidityExtremities: Extremities normal.Musculoskeletal: Muscular strength grossly intactLabsCBC, Coags, BMP, Mg, PhosRecent Labs 11/07/1799WBC -- 10.65 -- -- -- 12.50* 13.90*HB 7.9* 6.8* -- -- -- 8.2* 6.7*HCT 23.3* 20.2* -- -- -- 24.4* 19.8*PLT -- 212 -- -- -- 220 180INR -- 1.4* 1.6* -- -- -- 2.5*NA -- 140 -- -- 138 -- 139K -- 5.2* -- -- 5.9* -- 5.8*CHLOR -- 104 -- -- 103 -- 106*CO2 -- 21* -- -- 19* -- 19*BUN -- 65* -- -- 73* -- 66*CREAT -- 5.48* -- -- 6.14* -- 5.48*GLUC -- 97 -- -- 158* -- 112*CA -- 7.5* -- -- 7.2* -- 7.4*MG -- 2.2 -- 2.2 -- -- 2.3P -- 6.3* -- 7.2* -- -- 6.3*Liver Function, Amylase, AND LipaseRecent Labs 11/05/1821054644KELKJ 7.0 6.8 6.6 --ALB 1.8* 2.0* 1.7* --ALT 119* 154* 183* --AST 57* 85* 104* --ALKPHOS 529* 708* 735* --TBILI 5.7* 7.4* 10.3* --LACT -- -- -- 2.0Patricia Erich Crenshaw.Fellow, Gastroenterology AND HepatologySeptember 20178:04 AM I have seen and evaluated the patient and discussed the case with jg. I agree with the assessment and plan as documented in thefejose roberto's note. Jaundice related ? DILI vs DRESS related vs other. LFT'strending down, awaiting liver serologies.Tony Byrd MD [facility] Protein mass conc HNO ID: [id number] thor: Rosalia S AboussouanService: Pulmonary DiseaseAuthor Type: PhysicianType: Progress NotesFiled: 11/07/2017 9:50 AMNote Text:MICU StaffWBC 10.6, afebrile, on room airHemoglobin up to 7.9 after transfusion from 6.8 (still dropping). INR 1.4BUN/creatinine 65/5.48, improved from 73/6.14 after initiation of CRRTALT and AST improving 119/57, total bilirubin improving 5.7 (from 7.4)No DVT LUEASSESSMENTDrug rash with eosinophilia and systemic symptoms (DRESS) presenting withdesquamating rash while on doxycycline and linezolid (with priorvancomycin) for right thigh abcessTransaminitis in the context of DRESS without encephalopathy improvingAcute blood loss anemia (still active) with retroperitoneal bleed duringelevated INR 19.5 (on CT abd/pel .AKI oliguricRt TKR , reexploration for possible joint infection(negative)Right thigh abcess 09/[address] RLS Pseudomonas UTI Factor V leiden with DVT and PEPLANSteroids MP 40 daily with slow taperCheck DARIELA, iron studies, cerulopasmin. AFP. ASMA< AMA, IgGNephrology dermatology and hepatology follow upVascular medicine consultCRRT for solute and volume managementDiuresisFollow up H/HIR consultCheck doppler LESignature: Rosalia Mao, [facility] STAFF PHYSICIAN NOTE OF PERSONAL INVOLVEMENT IN CAREAttending NoteI have personally performed a face to face assessment of the patient andhave reviewed the PA/HIDE HANDLER note. My madrigal findings additions or changes areas above.Signature: Rosalia Mao [facility]ITALate: 11/07/2017Time: 9:49 AMI have reviewed the progress note obtained and documented by thefellow/resident, and I personally participated in the madrigal components. Myron discussed the case and management of the patient's care. The commentsin this separate note revise or confirm relevant madrigal components of thefellow/resident note. I have personally performed a face to faceassessment and examined the patient. My madrigal findings are as indicated inthis separate note. Other additions or changes: As editedThis patient has a high probability of sudden, clinically significantdeterioration, which requires the highest level of physician preparednessto intervene urgently. I managed/supervised life or organ supportinginterventions that required frequent physician assessment. I devoted myfull attention to the direct care of this patient for the amount of timeindicated below. Time I spent with family or surrogate(s) is includedonly if the patient was incapable of providing the necessary informationor participating in medical decision making. Time devoted to teaching andto any procedures I billed separately is not included.Critical Care Documentation: The patient has the following organ/systemimpairment(s): Complex life-threatening medical problem(s)Time spent providing critical care services: 30+ minutes.SIGNATURE: CRYSTAL Arcos INSTITUTEPAGER:[id number]' [facility] Phosphoruson 11-07-2017 Phosphate mass conc 5.6 mg/dL High 2.7-4.8 [facility] Comment on above: Performed By: #### P T, PTT, LACT, CMP, MG1, PHOS, CBCDIF ####[facility] [address] [place], [place] [phone] Phosphate mass conc 6.3 mg/dL High 2.7-4.8 [facility] Comment on above: Performed By: #### P T, CMP, MG1, PHOS, CBCDIF ####[facility] [address] [place], [place] [phone] Protimeon 11-07-2017 INR Coag RelTime (Bld) 1.4 {INR} High 0.9-1.3 [facility] Comment on above: Result Comment: Nini min K Antagonist (VKA) Therapeutic Range: INR 2 to 3 (Target INR of 2.5)Note: For patients treated with VKA drugs, such as warfarin, the [employer] 2012 Guideline recommends a therapeutic INR range of 2 to 3 (target INR of 2.5). This recommendation includes high-risk patients with antiphospholipid syndrome with previous arterial or venous thromboembolism, current-generation mechanical or bioprosthetic aortic heart valve replacement.Note: Patients with mechanical aortic valve replacement and additional risk factors for thromboembolic events (atrial fibrillation, previous thromboembolism, LV dysfunction, hypercoagulable conditions) or an older generation mechanical AVR (i.e., ball in-Cage) or any mechanical MVR should have a INR therapeutic range of 2.5 to 3.5 (target INR of 3).Aneeshtt GH, et al. Chest 2012, 141:7S-47SNishimura RA, et al. [facility] 2017, 70: 252-289 Performed By: #### P T, CMP, MG1, PHOS, CBCDIF ####[facility] [place], [place] [phone] PT Sec 14.9 sec High 9.7-13.0 [facility] Comment on above: Performed By: #### P T, CMP, MG1, PHOS, CBCDIF ####[facility] [place], [place] [phone] THERAPY NTon 11-07-2017 THERAPY NT HNO ID: [id number] thor: Coby (Ot/L) GauntnerService: Occupational TherapyAuthor Type: Occupational TherapistType: Therapy (PT/OT/Speech/Resp)Filed: 11/07/2017 1:17 PMNote Text:Occupational Therapy EvaluationSERVICE DATE: 11/07/2017SERVICE TIME: 1008 to 1112ROOM: [id number] Discharge Disposition: Subacute/SNFJustification For Post Acute Needs: Anticipate that patient will requiredaily (5x/wk) skilled therapy in a post-acute facility setting at the timeof acute hospital dischargeAnticipated Discharge Needs: UndeterminedOT Recommendations to Nursing: Encourage patient participation with in-bedADL?s;Utilize bed in Chair Position;With assist of 2 peopleOT 6 Clicks Score: 16Precautions/Activity Restrictions: Fall RiskASSESSMENT:Highest Level of Mobility (JH-HLM)This scale indicates the objective performance level this date and doesnot reflect clinical judgment of capability. Today the patient scored a 5on the JH-HLM. Explanations are noted in the chart below. Criteria ScoreWalk 250+ feet 8 25+ feet 7 10+ steps 6Stand > 1 minute 5Chair Transfer to chair 4Bed Sitting at EOB 3 Turning self/bed activity* 2 Only laying 1*Includes PROM/AROM, bed exercises and UE/LE movementUpon assessment, patient presents with impaired Strength/Tone,Cognitive/Perc eptual, Balance, Coordination, Functional Mobility andActivity Tolerance, affecting their ability to complete ADLs/IADLs safelywithout assistance from caregivers. Patient requires min cues to redirectattention to functional tasking and for short term recall. Patientdemonstrates mild anxiety but responds well to verbal cueing for deepbreathing. Pt also requires monitoring of vital signs due to fluctuationswith activity and instructions/ education regarding safe activity dosing.Pt wishes to return home but needs exceed resources available at thistime. Pt requires skilled therapy to address current functionallimitations, identify coping skills to progress through currentimpairments as well as to increase independence with ADLs within safelimits. Multiple methods of instruction needed due to anxiety, criticalillness. Patient would benefit from additional skilled OT while admittedand from SNF upon discharge to maximize safety and independence withADL/IADL routines and assist in safe transition to home environment.Vital SignsPre Assessment: Heart Rate, BP, SpO2, O2 EquipmentPre Heart Rate: 85Pre BP: 95/61Pre BP Position: SupinePre SpO2: 95Pre O2 Equipment: Room AirIntra Assessment 1: BP Intra 1Intra BP 1: 141/65Intra BP Position 1: SittingPost Assessment: Heart Rate Post, BP Post, SpO2 Post, Oxygen EquipmentPostPost Heart Rate: 86Post BP: 130/66Post BP Position: SupinePost SpO2: 95Post O2 Equipment: Room AirPatient Disposition at Start of Session: Supine in Bed;Call Price in ReachPatient Disposition at End of Session: Supine in Bed;Call Price in ReachTolerated Full SessionOccupational Therapy Problem List: Cognitive Deficit;SafetyDeficits;Impai red Self Care;Decreased Activity Tolerance;DecreasedStrength; Functional Mobility Impairment;Balance ImpairedPatient /Caregiver Goals: Go HomeGoals for Plan of Care:Able to perform HEP with: Modified IndependentFeeding with: Modified IndependentGrooming with: Modified IndependentUpper Body Bathing with: SupervisionUpper Body Dressing with: Modified IndependentLower Body Bathing with: SupervisionLower Body Dressing with: SupervisionToilet Hygiene with: Modified IndependentToilet Transfer with: SupervisionTolerate (minutes of functional activity): 15Functional Activity with: SupervisionDemonstrate Positive Coping Strategies with: Modified IndependentDemonstrate Competence With Education with: Modified IndependentIncreased Awareness of Cognitive Impairments as Related to ADL's/IADL's:VerbalizedMedic ation Management with Strategies: Modified IndependentRehab Potential: GoodPLAN:Treatment Frequency (times per week): 2 Current admissionTreatment Interventions: Education;Self Care / Home Management;FunctionalMobilit y Training;Balance Training;Cognitive TrainingPlan of Care developed with: PatientTREATMENT INTERVENTIONS:Therapy Diagnosis: Decreased activities of daily living (ADL);Signs andSymptoms Involving Cognitive Functions and AwarenessInterventions Provided: Evaluation;Therapeutic Activity (00665);Self CareHome Management (23151)$ Evaluation-Moderate (08829) Billed Units: 1 unitTherapeutic Activity (88613) Treatment Minutes: 232 unitsFacilitated rolling at bed level x4 for bed mitchell use and yaya careInstructed patient in supine to sit pushing with upper extremities to situpInstructed patient in sit to supine using safe, effective techniqueInstruction in sit to stand technique with proper hand placement and bodypositioning at edge of bed/chair, completed x 3 w mod A from EOBInstruction in stand to sit technique with lower extremities touchingchair/bed and reaching back for surfaceFacilitated safety during side steps toward HOB w min cues to sequence +for safetyFacilitated positioning in supine after session for safety, comfort, andpressure relief:HOB 30 degrees.Positioned pt's BUE/LE in elevated on pillow to decrease risk of edema andskin breakdownFacilitation of therapeutic use of self, active listening, and therapeutictouch throughout session to promote and increase rapport, increasefeelings of control by providing choices, provide reassurance, positivereinforcement and encouragement to increase participation/motivation in OTsession.Facilitation of positive reinforcement and optimism regarding positivegains during session and promoting positive outlook during admissiondespite complicated medical barriersSelf Prison Management (24269) Treatment Minutes: 151 unitSkilled Intervention(s): Provided cuing for hand/oral hygiene to washhandsCues for sequencing in hygiene tasks for extensive yaya careFacilitation of therapeutic use of self, active listening, and therapeutictouch throughout session to promote and increase rapport, increasefeelings of control by providing choices, provide reassurance, positivereinforcement and encouragement to increase participation/motivation in OTsession.Facilitation of positive reinforcement and optimism regarding positivegains during session and promoting positive outlook during admissiondespite complicated medical barriersProvided intervention for line management and vital sign monitoringthroughout session to ensure safe mobility prescription and hemodynamictolerance during above interventions.Education in OT role, benefits of OOB, rehab POC, d/c recommendation,importance of participation in functional activity, call light use/up withassist onlyTotal Timed Code Treatment Minutes: 38Total Treatment Time (minutes): 64FUNCTIONAL G CODE:OT 6 Clicks Score: 16 (11/07/17 1008)Self Care Current Status (G8987): CK (11/07/17 1008)Self Care Goal Status (G8988): CI (11/07/17 1008)Based on clinical assessment and the score on the 6 Clicks FunctionalAssessment Tool, the G code and corresponding severity modifiers aredocumented above.SUBJECTIVE:Current Hospital Course: Chart reviewed; Patient is a 57 year old maleadmitted with RP bleed from OSH on 11/03 w DRESS, 11/04 hg dropped, 11/06 HG6.7, transfused, CVVHD startedReason for Occupational Therapy Consult: decr cognition, decr adlperformanceRelevant Past Medical History: R TKR july 2017, DVT, PEPatient Report: I got a little sleep, but I still feel loopyHome EnvironmentPatient Lives With: Significant OtherAssistance Available: 24 HourEntry To Home: StairsNumber Of Stairs Into Home: 2Prior Functional Level: Within Functional Limits (recently using a walkerafter last admit)OBJECTIVE:Orientation Deficits: Confused;Not oriented to TimeResponsiveness: AlertFollows Commands: 2-step Commands;Cueing NeededCueing to Follow Commands: MinimumAttention Deficits: DistractibleExecutive Function Deficits: Medication compliance (reading label/correctdose/time);Prob belia SolvingMedication Compliance Deficit: Minimal impairmentProblem Solving Deficit: Minimal impairmentPsychosocial Deficit: mild anxietyCURRENT FUNCTIONAL STATUS:Current Activities of Daily Living Assist LevelFeeding Set UpGrooming Contact Guard AssistanceBathing Upper Body Moderate AssistanceBathing Lower Body Moderate AssistanceDressing Upper Body Minimal AssistanceDressing Lower Body Moderate AssistanceToileting Maximal AssistanceInstrumental Activities of Daily Living Assist LevelMeal/Beverage PrepLight CleaningLaundryMedication Management with StrategiesFunctional Mobility Assist LevelRollingSupine to Sit Moderate AssistanceSit to SupineScooting Minimal AssistanceSit to Stand Moderate AssistanceStand to Sit Moderate AssistanceBed to ChairToilet/CommodeFunctiona l Mobility Moderate Assistance (sidestepsto HOB)Please see discipline specific clinical documentation flowsheet forcomplete details for this therapy evaluation/treatment.SIGNATU RE: Coby Gonzalez, OT/L PATIENT NAME: Hung TamkroneDATE: November 07, 2017 : 1:10 PM Normal [facility] Type and Screenon 11-07-2017 ABO/RH(D) Positive Normal [facility] Comment on above: Performed By: #### T SCR ####[address] [phone] Antibody Screen Negative Normal [facility] Comment on above: Performed By: #### T SCR ####[address] [phone] Basic Metabolic Panlon 11-06 Anion gap 3 molar conc 16 mmol/L Normal 9-18 Cl [facility] Comment on above: Performed By: #### P T, PTT, LACT, CMP, MG1, PHOS, CBCDIF ####[place] [address] [place], [place] [phone] Calcium mass conc 7.2 mg/dL Low 8.5-10.2 [facility] Comment on above: Performed By: #### P T, PTT, LACT, CMP, MG1, PHOS, CBCDIF ####[address] [phone] Chloride molar conc 103 mmol/L Normal 97-105 [facility] Comment on above: Performed By: #### P T, PTT, LACT, CMP, MG1, PHOS, CBCDIF ####[address] [phone] CO2 molar conc 19 mmol/L Low 22-30 [facility] Comment on above: Performed By: #### P T, PTT, LACT, CMP, MG1, PHOS, CBCDIF ####[facility] AveCSan [address], [place] [phone] Creatinine mass conc 6.14 mg/dL High 0.73-1.22 [facility] Comment on above: Performed By: #### P T, PTT, LACT, CMP, MG1, PHOS, CBCDIF ####[place] [address] AveCSan [address]andro, [place] [phone] eGFR- Amer. 11 [facility] Comment on above: Performed By: #### P T, PTT, LACT, CMP, MG1, PHOS, CBCDIF ####[address], [place] [phone] GFR/1.73 sq M predicted among non-blacks MDRD vol rate/area (S/P/Bld) 9 . Normal [facility] Comment on above: Result Comment: eGFR (Estimated GFR) Units of measure: mL/min/1.73 meters squaredeGFR is derived from the reexpressed MDRD Study equation using the following parameters: serum creatinine, age, gender and race. The creatinine assay has been calibrated to be traceable to IDMS.An eGFR <60 mL/min/1.73m2 for >3 months is consistent with chronic kidney disease. Refer to KDOQI guidelines for clinical interpretation.In patients with unstable renal function, e.g. those with acute kidney injury, the eGFR may not accurately reflect actual GFR. Performed By: #### P T, PTT, LACT, CMP, MG1, PHOS, CBCDIF ####[place] [address], [place] [phone] Glucose mass conc 158 mg/dL High 74-99 [facility] Comment on above: Result Comment: The [place] Diabetes Association (ADA) provides guidance for cutoff values for fasting glucose and random glucose. The ADA defines fasting as no caloric intake for at least 8 hours. Fasting plasma glucose results between 100 to 125 mg/dL indicate increased risk for diabetes (prediabetes).Fasting plasma glucose results greater than or equal to 126 mg/dL meet the criteria for diagnosis of diabetes. In the absence of unequivocal hyperglycemia, results should be confirmed by repeat testing. In a patient with classic symptoms of hyperglycemia or hyperglycemic crisis, random plasma glucose results greater than or equal to 200 mg/dL meet the criteria for diagnosis of diabetes.Reference: Standards of Medical Care in Diabetes 2016, [place] Diabetes Association. Diabetes Care. 2016.39(Suppl 1). Performed By: #### P T, PTT, LACT, CMP, MG1, PHOS, CBCDIF ####[address] [phone] Potassium molar conc 5.9 mmol/L High 3.7-5.1 [facility] Comment on above: Performed By: #### P T, PTT, LACT, CMP, MG1, PHOS, CBCDIF ####[address] [phone] Sodium molar conc 138 mmol/L Normal 136-144 [facility] Comment on above: Performed By: #### P T, PTT, LACT, CMP, MG1, PHOS, CBCDIF ####[address] [phone] Urea nitrogen mass conc 73 mg/dL High 9-24 [facility] Comment on above: Performed By: #### P T, PTT, LACT, CMP, MG1, PHOS, CBCDIF ####[address] [phone] CBCon 11-06-2017 Absolute nRBC 0.02 k/uL High <0.01 [facility] Comment on above: Performed By: #### P T, PTT, LACT, CMP, MG1, PHOS, CBCDIF ####[address] [phone] Erythrocyte distribution width Auto Ratio (RBC) 19.9 % High 11.5-15.0 [facility] Comment on above: Performed By: #### P T, PTT, LACT, CMP, MG1, PHOS, CBCDIF ####[place] [phone] Hematocrit Auto Volume Fraction (Bld) 24.4 % Low 39.0-51.0 [facility] Comment on above: Performed By: #### P T, PTT, LACT, CMP, MG1, PHOS, CBCDIF ####[place] [phone] Hemoglobin mass conc (Bld) 8.2 g/dL Low 13.0-17.0 [facility] Comment on above: Performed By: #### P T, PTT, LACT, CMP, MG1, PHOS, CBCDIF ####[place] [phone] MCH Auto Entitic mass (RBC) 29.9 pG Normal 26.0-34.0 [facility] Comment on above: Performed By: #### P T, PTT, LACT, CMP, MG1, PHOS, CBCDIF ####[place] [phone] MCHC Auto mass conc (RBC) 33.6 g/dL Normal 30.5-36.0 [facility] Comment on above: Performed By: #### P T, PTT, LACT, CMP, MG1, PHOS, CBCDIF ####[place] [phone] MCV Auto Entitic volume (RBC) 89.1 fL Normal 80.0-100.0 [facility] Comment on above: Performed By: #### P T, PTT, LACT, CMP, MG1, PHOS, CBCDIF ####[place] [phone] Platelet mean volume Auto Entitic volume (Bld) 10.3 fL Normal 9.0-12.7 [facility] Comment on above: Performed By: #### P T, PTT, LACT, CMP, MG1, PHOS, CBCDIF ####[address]CS[address], [place] [phone] Platelets Auto #/vol (Bld) 220 10*3/uL Normal 150-400 [facility] Comment on above: Performed By: #### P T, PTT, LACT, CMP, MG1, PHOS, CBCDIF ####[address] [phone] RBC Auto #/vol (Bld) 2.74 10*6/uL Low 4.20-6.00 Cl [facility] Comment on above: Performed By: #### P T, PTT, LACT, CMP, MG1, PHOS, CBCDIF ####[address] [phone] WBC Auto #/vol (Bld) 12.50 10*3/uL High 3.70-11.00 C [facility] Comment on above: Performed By: #### P T, PTT, LACT, CMP, MG1, PHOS, CBCDIF ####[address] [place], [place] [phone] CBC and Differentialon 11-06 Abs Baso 0.00 k/uL Normal <0.11 [facility] Comment on above: Performed By: #### P T, PTT, LACT, CMP, MG1, PHOS, CBCDIF ####[place] [address], [place] [phone] Abs Haskell 1.22 k/uL High <0.87 [facility] Comment on above: Performed By: #### P T, PTT, LACT, CMP, MG1, PHOS, CBCDIF ####[address], [place] [phone] Abs Neut 10.84 k/uL High 1.45-7.50 [facility] Comment on above: Performed By: #### P T, PTT, LACT, CMP, MG1, PHOS, CBCDIF ####[place] [address] [phone] Anisocytosis Auto Ql (Bld) Present Normal [facility] Comment on above: Performed By: #### P T, PTT, LACT, CMP, MG1, PHOS, CBCDIF ####[place] [address] [phone] Basophils/100 WBC Auto (Bld) 0.0 % Normal [facility] Comment on above: Performed By: #### P T, PTT, LACT, CMP, MG1, PHOS, CBCDIF ####[address] [place] [phone] DTYPE Manual Diff Normal [facility] Comment on above: Performed By: #### P T, PTT, LACT, CMP, MG1, PHOS, CBCDIF ####[place] [address] [phone] Eosinophils Auto #/vol (Bld) 0.25 10*3/uL Normal <0.46 [facility] Comment on above: Performed By: #### P T, PTT, LACT, CMP, MG1, PHOS, CBCDIF ####[place] [address] [phone] Eosinophils/100 WBC Auto (Bld) 1.8 % Normal [facility] Comment on above: Performed By: #### P T, PTT, LACT, CMP, MG1, PHOS, CBCDIF ####[place] [address] [phone] Erythrocyte distribution width Auto Ratio (RBC) 18.7 % High 11.5-15.0 [facility] Comment on above: Performed By: #### P T, PTT, LACT, CMP, MG1, PHOS, CBCDIF ####[place] [phone] Hematocrit Auto Volume Fraction (Bld) 19.8 % Low 39.0-51.0 [facility] Comment on above: Performed By: #### P T, PTT, LACT, CMP, MG1, PHOS, CBCDIF ####[place] [phone] Hemoglobin mass conc (Bld) 6.7 g/dL Low 13.0-17.0 [facility] Comment on above: Performed By: #### P T, PTT, LACT, CMP, MG1, PHOS, CBCDIF ####[place] [phone] Lymphocytes Auto #/vol (Bld) 1.33 10*3/uL Normal 1.00-4.00 [facility] Comment on above: Performed By: #### P T, PTT, LACT, CMP, MG1, PHOS, CBCDIF ####[place] [phone] Lymphocytes/100 WBC Auto (Bld) 9.6 % Normal [facility] Comment on above: Performed By: #### P T, PTT, LACT, CMP, MG1, PHOS, CBCDIF ####[place] [phone] MCH Auto Entitic mass (RBC) 29.8 pG Normal 26.0-34.0 [facility] Comment on above: Performed By: #### P T, PTT, LACT, CMP, MG1, PHOS, CBCDIF ####[place] [phone] MCHC Auto mass conc (RBC) 33.8 g/dL Normal 30.5-36.0 [facility] Comment on above: Performed By: #### P T, PTT, LACT, CMP, MG1, PHOS, CBCDIF ####[place] [address] [place], [place] [phone] MCV Auto Entitic volume (RBC) 88.0 fL Normal 80.0-100.0 [facility] Comment on above: Performed By: #### P T, PTT, LACT, CMP, MG1, PHOS, CBCDIF ####[place] [address] [place] [phone] Arrey% 1.8 % Normal [facility] Comment on above: Performed By: #### P T, PTT, LACT, CMP, MG1, PHOS, CBCDIF ####[place] [address] [phone] Monocytes/100 WBC Auto (Bld) 8.8 % Normal [facility] Comment on above: Performed By: #### P T, PTT, LACT, CMP, MG1, PHOS, CBCDIF ####[place] [address] [place] [phone] Neutrophils/100 WBC Auto (Bld) 78.0 % Normal [facility] Comment on above: Performed By: #### P T, PTT, LACT, CMP, MG1, PHOS, CBCDIF ####[address], [place] [phone] Platelet mean volume Auto Entitic volume (Bld) 10.6 fL Normal 9.0-12.7 [facility] Comment on above: Performed By: #### P T, PTT, LACT, CMP, MG1, PHOS, CBCDIF ####[place] [address] [place] [phone] Platelets Auto #/vol (Bld) 180 10*3/uL Normal 150-400 [facility] Comment on above: Performed By: #### P T, PTT, LACT, CMP, MG1, PHOS, CBCDIF ####[address] [phone] Platelets Auto #/vol (Bld) Platelet estimate adequate Normal [facility] Comment on above: Performed By: #### P T, PTT, LACT, CMP, MG1, PHOS, CBCDIF ####[address] [phone] Polychromasia Slight Normal [facility] Comment on above: Performed By: #### P T, PTT, LACT, CMP, MG1, PHOS, CBCDIF ####[address] [phone] RBC Auto #/vol (Bld) 2.25 10*6/uL Low 4.20-6.00 Cl [facility] Comment on above: Performed By: #### P T, PTT, LACT, CMP, MG1, PHOS, CBCDIF ####[address] [phone] RBC Fragments Few Normal [facility] Comment on above: Performed By: #### P T, PTT, LACT, CMP, MG1, PHOS, CBCDIF ####[address] [phone] Thyrotropin Qn Present Normal [facility] Comment on above: Performed By: #### P T, PTT, LACT, CMP, MG1, PHOS, CBCDIF ####[address] [phone] WBC Auto #/vol (Bld) 13.90 10*3/uL High 3.70-11.00 C [facility] Comment on above: Performed By: #### P T, PTT, LACT, CMP, MG1, PHOS, CBCDIF ####[address] [phone] CMV DNA Quant by PCRon 11-06 CMV DNA (IU/mL) CMV DNA not detected by PCR. Normal [facility] Comment on above: Result Comment: Line ar Range 137 - 9,100,000 IU/mL (2.14 - 6.96 log IU/mL)Reference Range: Negative for CMV DNA Performed By: #### P T, PTT, LACT, CMP, MG1, PHOS, CBCDIF ####[address] [phone] CMV IgM Antibodyon 8 CMV IgM Antibody <8.0 Normal [facility] Comment on above: Result Comment: AU/m L values are interpreted as follows:Negative: <30.0Equivocal: >=30.0 to <35.0Positive: >=35.0The magnitude of the measured result is not indicative of the amount of antibody present. Performed By: #### P T, PTT, LACT, CMP, MG1, PHOS, CBCDIF ####[address] [phone] CMV IgM, Qual Negative Normal Negative [facility] Comment on above: Result Comment: Abse nce of detectable CMV IgM antibodies. If clinical exposure to hCMV is suspected despite a negative finding, a second sample should be collected and tested no less than one or two weeks later. Performed By: #### P T, PTT, LACT, CMP, MG1, PHOS, CBCDIF ####[address] [phone] CONSULT PROGon 11-06-2017 Protein mass conc HNO ID: [id number] thor: Shane Altman: NephrologyAuthor Type: PhysicianType: Consult Progress NoteFiled: 11/06/2017 7:19 PMNote Text:CONSULT PROGRESS NOTENEPHROLOGY SERVICESERVICE DATE: 11/06/2017SERVICE TIME: 10:07 AMSubjectiveINTERVAL HISTORY:No acute events overnight.Hyperkalemia to 5.8 this AMSolutes worsening but no change in GFRMEDICATIONS:Current hospital medications:phytonadione (vitamin K1) 10 mg in D5W 50 mL 10 mg INTRAVENOUS DAILYfurosemide 120 mg injection (LASIX) 120 mg INTRAVENOUS ONCEinsulin regular human 5 Units injection (short acting) (NovoLIN R,HumuLINR) 5 Units INTRAVENOUS ONCEdextrose 50% in water 50 mL syringe 25 g INTRAVENOUS ONCEsodium bicarbonate 1 mEq/mL (8.4 %) 50 mEq injection 50 mEq INTRAVENOUSONCEinsulin regular human injection (short acting) (NovoLIN R,HumuLIN R)SUBCUTANEOUS w MEALS AND HSpotassium chloride ER 40 mEq tab(s) (K-DUR, KLOR-CON) 40 mEq ORAL/FEEDINGTUBE q 2 H PRNmagnesium sulfate in water 4-6 g in sterile water 50 ml 4-6 g INTRAVENOUSPRNsodium phosphate 45 mmol in NaCl 0.9% 250 mL 45 mmol INTRAVENOUS PRN0.9% NaCl 3-5 mL 3-5 mL INTRAVENOUS q 12 H0.9% NaCl 10 mL 10 mL INTRAVENOUS q 12 H0.9% NaCl 20 mL 20 mL INTRAVENOUS PRNinsulin regular 250 units in NaCl 0.9% 250 mL iv infusion - ICU NOMOGRAM0.5-30 Units/hr INTRAVENOUS CONTINUOUSdextrose 50% in water 25-50 mL syringe 12.5-25 g INTRAVENOUS PRNdextrose 40 % 15 g 15 g ORAL PRNglucagon 1 mg injection (GLUCAGEN) 1 mg SUBCUTANEOUS PRNoxyCODONE IR 5-10 mg tab(s) (ROXICODONE) 5-10 mg ORAL/FEEDING TUBE q 4 HPRNHYDROmorphone 0.5-1 mg injection (DILAUDID) 0.5-1 mg INTRAVENOUS q 4 H PRNpantoprazole 40 mg injection (PROTONIX) 40 mg INTRAVENOUS DAILY (6 AM)methylPREDNISolone (MEDROL) tab(s) 40 mg 40 mg ORAL DAILYObjectivePHYSICAL EXAM:BP 141/84 Pulse 89 Temp 36.6 ?C (97.9 ?F) (Axillary) Resp 29 Ht 188 cm (6' 2) Wt 94.5 kg (208 lb 5.4 oz) SpO2 95% BMI 26.75kg/m?Intake/Output Summary (Last 24 hours) at 11/06/17 1007Last data filed at 11/06/17 1000 Gross per 24 hourIntake 601 mlOutput 500 mlNet 101 mlConstitutional: No acute distress and ResponsiveNeck: Trachea midlineCardiovascular: Regular rate and rhythm; S1 + S2 + 0Respiratory: Normal respiratory effort.Abdomen: softPsychiatric: Alert and oriented x self, place, time, and settingDATA:Diagnostic tests reviewed for today's visit:Most recent labs and imaging results.Recent Labs 11/05/1808NA 139 140 142 143 -- 143K 5.8* 5.2* 5.0 5.1 -- 5.0CHLOR 106* 109* 109* 110* -- 110*CO2 19* 19* 21* 21* 21* 19*BUN 66* 60* 51* 38* -- 32*CREAT 5.48* 4.74* 4.40* 2.97* -- 2.48*GLUC 112* 97 109* 101* -- 102*ANION 14 12 12 12 -- 14CA 7.4* 7.1* 7.1* 7.4* -- 8.1*P 6.3* 6.7* -- -- -- 6.9*MG 2.3 2.2 -- -- -- 2.2Recent Labs 11/05/1808WBC 13.90* 13.68* 15.03*HB 6.7* 7.2* 6.4*HCT 19.8* 20.9* 18.7*PLT 180 163 159Assessment/Plan57 year old male with h/o factor V leidin, s/p R TKA c/b pseudomonas UTIand right thigh abscess s/p multiple antibiotics c/b desquamating rashconcerning for DRESS vs SJS/TEN further c/b shock, ADYNA, transaminitis andRP bleed. Transferred to [facility] for furtther management.1. Oliguric AKIBaseline Cr <1Etiology likely 2/2 pre-renal vs ischemic ATN in the setting ofhypotension and RP bleed. Possibly AIN (peripheral eosinophilia at theOSH, no urine eos documented). He did get steroids at the OSH after allantibiotics were stopped. Cr was improving on transfer here but hasstarted worsening again likely from RP bleed and acute anemia.Intertestingly, the patient also had proteinuria with UPC 3 gm at the OSHon 10/31. Autoimmune work up sent at the OSH pending (daughter will try toget us the results).- may need dialysis if continues to oliguric with worsening solutes andrefractory hyperkalemia?2. Electrolytes: hyperkalemia - medically manage first with insulin,dextrose, lasix 120mg3. Volume status:mild hypervolemia, needs condom cath for accurate I/Os4. Acid-base: mild acidosis?PLAN:- examine urinary sediment when sample available- lasix 120mg now and will monitor for response- may need dialysis if refractory hyperkalemia and no response to lasix.- christiano autoimmune work up from outside hospital- repeat UA and urine prot/cr ratio here.- Strict I/O's- Daily weights- Renal diet- Dose medications for eGFR <10 mL/min??Consent for DIRECTOR CAREER:DIRECTOR CAREER initiation date: NADr. Gurjit Albertsij (pager [phone]) will be covering the service after theeke.SIGNATURE: Rosemary Trinidad MD PATIENT NAME: Hung AhumadaoneDATE: November 06, 2017 : 10:07 AM PAGER: [phone] STAFF PHYSICIAN NOTE OF PERSONAL INVOLVEMENT IN CAREI have reviewed the progress note obtained and documented by the fellowand I personally participated in the madrigal components. I have discussed thecase and management of the patient's care. Additional comments revise orconfirm relevant madrigal components of the note.A/P:Pt with slowly worsening renal course. We will initiate CVVHDRobert Katie Ibarra, Nephrology and [id number] PMSeptember 2017 Normal [facility] Ceruloplasminon 11-06-2017 Ceruloplasmin 15 mg/dL Normal 15-30 [facility] Comment on above: Performed By: #### P T, PTT, LACT, CMP, MG1, PHOS, CBCDIF ####[facility] [id number] [place], [place] [phone] Comp Metabolic Panelon 11-06 Albumin mass conc 2.0 g/dL Low 3.9-4.9 [facility] Comment on above: Performed By: #### P T, PTT, LACT, CMP, MG1, PHOS, CBCDIF ####[place] [address] [place], [place] [phone] ALP enzyme act/vol 708 U/L High 36-108 [facility] Comment on above: Performed By: #### P T, PTT, LACT, CMP, MG1, PHOS, CBCDIF ####[address], [place] [phone] ALT enzyme act/vol 154 U/L High 10-54 [facility] Comment on above: Performed By: #### P T, PTT, LACT, CMP, MG1, PHOS, CBCDIF ####[address] [phone] Anion gap 3 molar conc 14 mmol/L Normal 9-18 [facility] Comment on above: Performed By: #### P T, PTT, LACT, CMP, MG1, PHOS, CBCDIF ####[address] [phone] AST enzyme act/vol 85 U/L High 14-40 [facility] Comment on above: Performed By: #### P T, PTT, LACT, CMP, MG1, PHOS, CBCDIF ####[address] [phone] Bilirubin mass conc 7.4 mg/dL High 0.2-1.3 [facility] Comment on above: Performed By: #### P T, PTT, LACT, CMP, MG1, PHOS, CBCDIF ####[address] [phone] Calcium mass conc 7.4 mg/dL Low 8.5-10.2 [facility] Comment on above: Performed By: #### P T, PTT, LACT, CMP, MG1, PHOS, CBCDIF ####[address], [place] [phone] Chloride molar conc 106 mmol/L High 97-105 [facility] Comment on above: Performed By: #### P T, PTT, LACT, CMP, MG1, PHOS, CBCDIF ####[address] [phone] CO2 molar conc 19 mmol/L Low 22-30 [facility] Comment on above: Performed By: #### P T, PTT, LACT, CMP, MG1, PHOS, CBCDIF ####[address] [phone] Creatinine mass conc 5.48 mg/dL High 0.73-1.22 [facility] Comment on above: Performed By: #### P T, PTT, LACT, CMP, MG1, PHOS, CBCDIF ####[address] [phone] eGFR- Amer. 13 [facility] Comment on above: Performed By: #### P T, PTT, LACT, CMP, MG1, PHOS, CBCDIF ####[address] [phone] GFR/1.73 sq M predicted among non-blacks MDRD vol rate/area (S/P/Bld) 11 . Normal [facility] Comment on above: Result Comment: eGFR (Estimated GFR) Units of measure: mL/min/1.73 meters squaredeGFR is derived from the reexpressed MDRD Study equation using the following parameters: serum creatinine, age, gender and race. The creatinine assay has been calibrated to be traceable to IDMS.An eGFR <60 mL/min/1.73m2 for >3 months is consistent with chronic kidney disease. Refer to KDOQI guidelines for clinical interpretation.In patients with unstable renal function, e.g. those with acute kidney injury, the eGFR may not accurately reflect actual GFR. Performed By: #### P T, PTT, LACT, CMP, MG1, PHOS, CBCDIF ####[facility] [place], [place] [phone] Glucose mass conc 112 mg/dL High 74-99 [facility] Comment on above: Result Comment: The [place] Diabetes Association (ADA) provides guidance for cutoff values for fasting glucose and random glucose. The ADA defines fasting as no caloric intake for at least 8 hours. Fasting plasma glucose results between 100 to 125 mg/dL indicate increased risk for diabetes (prediabetes).Fasting plasma glucose results greater than or equal to 126 mg/dL meet the criteria for diagnosis of diabetes. In the absence of unequivocal hyperglycemia, results should be confirmed by repeat testing. In a patient with classic symptoms of hyperglycemia or hyperglycemic crisis, random plasma glucose results greater than or equal to 200 mg/dL meet the criteria for diagnosis of diabetes.Reference: Standards of Medical Care in Diabetes 2016, [place] [employer]. Diabetes Care. 2016.39(Suppl 1). Performed By: #### P T, PTT, LACT, CMP, MG1, PHOS, CBCDIF ####[address] [phone] Potassium molar conc 5.8 mmol/L High 3.7-5.1 [facility] Comment on above: Performed By: #### P T, PTT, LACT, CMP, MG1, PHOS, CBCDIF ####[address] [phone] Protein mass conc 6.8 g/dL Normal 6.3-8.0 [facility] Comment on above: Performed By: #### P T, PTT, LACT, CMP, MG1, PHOS, CBCDIF ####[address] [phone] Sodium molar conc 139 mmol/L Normal 136-144 [facility] Comment on above: Performed By: #### P T, PTT, LACT, CMP, MG1, PHOS, CBCDIF ####[address] [phone] Urea nitrogen mass conc 66 mg/dL High 9 [facility] Comment on above: Performed By: #### P T, PTT, LACT, CMP, MG1, PHOS, CBCDIF ####[id number] [place], [place] [phone] EBV IgM Antibodyon 8 EBV VCA IgM <0.2 Normal [facility] Comment on above: Result Comment: AI V ALUES ARE INTERPRETED FOLLOWS:NEGATIVE SPECIMENS <=0.8EQUIVOCAL SPECIMENS 0.9 TO 1.0POSITIVE SPECIMENS >=1.1The magnitude of the reported IgM level cannot be correlated to an endpoint titer (or clinical status). Performed By: #### P T, PTT, LACT, CMP, MG1, PHOS, CBCDIF ####[id number] [place], [place] [phone] EBV VCA IgM, Qual Negative Normal Negative [facility] Comment on above: Result Comment: EBV VCA IgM antibodies are not detectable. Performed By: #### P T, PTT, LACT, CMP, MG1, PHOS, CBCDIF ####[address] [phone] ECG COMPLETE W INTERPRETATIO Non 11-06-2017 Protein mass conc NAME : FAUSTINA PECK LASPID : [id number] : 1960 Gender : MaleRace : CaucasianORD : [id number] Procedure Date : Nov 06 2017 11:01:17Edit Date : Nov 18 2017 10:38:19 Diagnosis:NORMAL SINUS RHYTHMANTEROLATERAL T WAVE ABNORMALITYABNORMAL ECGConfirmed by HALI MCGEE M.D. ([id number]) on 11/18/2017 10:38:14 AM Ventricular Rate : 100 BPMAtrial Rate : 100 BPMP-R Interval : 132 msQRS Duration : 76 msQ-T Interval : 334 msQTC Calculation(Bezet) : 430 msP [place] : 47 degreesR [place] : 3 degreesT [place] : 111 degrees Test Reason : BEST POSS Location : 68 : G61 [id number] Overread By : Bethany MCGEE M.D. By : ARELY Jones,MOUINReferred By : ,Acquired by : JOANNE ROMANO [facility] Ferritinon 11-06-2017 Ferritin 1435.0 ng/mL High 30.3-565.7 [facility] Comment on above: Performed By: #### P T, PTT, LACT, CMP, MG1, PHOS, CBCDIF ####[phone] HSV1,2/VZV Amplifon 11-07-19 18 HSV Type 1, HDA Unable to assay. Spe cimen improperly collected/handled. Normal [facility] Comment on above: Result Comment: Acco unt CreditedSENT RED TOPREQUIRES SWAB Performed By: #### P T, PTT, LACT, CMP, MG1, PHOS, CBCDIF ####[place] [phone] HSV Type 2, HDA Unable to assay. Spe cimen improperly collected/handled. Normal [facility] Comment on above: Result Comment: Acco unt CreditedSENT RED TOPREQUIRES SWAB Performed By: #### P T, PTT, LACT, CMP, MG1, PHOS, CBCDIF ####[place] [phone] Specimen source Nom (Unsp spec) Unable to assay. Specimen improperly collected/handled. Normal [facility] Comment on above: Result Comment: Acco unt CreditedSENT RED TOPREQUIRES SWABCorrected on 11/06 AT 1424: Previously reported as BLOOD RED TOP Performed By: #### P T, PTT, LACT, CMP, MG1, PHOS, CBCDIF ####[address] [phone] V Zoster Virus, HDA Unable to assay. Spe cimen improperly collected/handled. Normal [facility] Comment on above: Result Comment: Acco unt CreditedSENT RED TOPREQUIRES SWAB Performed By: #### P T, PTT, LACT, CMP, MG1, PHOS, CBCDIF ####[address], [place] [phone] Herpes Simplex IgMon 018 Herpes Simplex IgM 0.69 OD Ratio Normal 0-0.90 [facility] Comment on above: Result Comment: INDE X VALUES/OD RATIOS ARE INTERPRETEDAS FOLLOWS:NEGATIVE SPECIMENS <=0.90EQUIVOCAL SPECIMENS 0.91 TO 1.09POSITIVE SPECIMENS >=1.10 Performed By: #### P T, PTT, LACT, CMP, MG1, PHOS, CBCDIF ####[address] [phone] HSV IgM Qualitative Negative Normal Negative [facility] Comment on above: Result Comment: No s ignificant amount of IgM antibodiesto HSV- 1 or HSV-2 detected. Negative result indicates no current orreactivated infection with HSV-1 or HSV-2. Performed By: #### P T, PTT, LACT, CMP, MG1, PHOS, CBCDIF ####[address] [phone] Iron and TIBCon 11-06-2017 Iron mass conc 46 ug/dL Normal 41-186 [facility] Comment on above: Performed By: #### P T, PTT, LACT, CMP, MG1, PHOS, CBCDIF ####[address] [phone] TIBC 156 ug/dL Low 232-386 [facility] Comment on above: Performed By: #### P T, PTT, LACT, CMP, MG1, PHOS, CBCDIF ####[address] [phone] Transferrin Saturatn 29 % Normal 15-57 [facility] Comment on above: Performed By: #### P T, PTT, LACT, CMP, MG1, PHOS, CBCDIF ####[address] [place] [phone] Magnesiumon 11-06-2017 Magnesium mass conc 2.2 mg/dL Normal 1.7-2.3 [facility] Comment on above: Performed By: #### P T, PTT, LACT, CMP, MG1, PHOS, CBCDIF ####[facility] [address] [place], [place] [phone] Magnesium mass conc 2.3 mg/dL Normal 1.7-2.3 [facility] Comment on above: Performed By: #### P T, PTT, LACT, CMP, MG1, PHOS, CBCDIF ####[facility] [address] [place], [place] [phone] PLAN OF CAREon 11-06-2017 PLAN OF CARE HNO ID: [id number] thor: Shane Altman: NephrologyAuthor Type: PhysicianType: Plan of CareFiled: 11/06/2017 7:18 PMNote Text:Brief Nephrology Note:Given refractory hyperkalemia and only a small response to lasix, willstart CRRT to optimize solutes and volume.Rosemary Trinidad MDFellowNephrology and HypertensionPager: [phone] [phone] PM Normal [facility] PROCEDUREon 11-06-2017 Protein mass conc HNO ID: [id number] thor: Sukhwinder Nguyenice: Critical CareAuthor Type: PhysicianType: ProceduresFiled: 11/06/2017 7:30 PMNote Text:BEDSIDE PROCEDURE NOTEDIALYSIS CATHETERDate/Start Time: 11/06/2017 6:45 PMPerformed by: HAILE SANTOYOuthorized by: Wendy SANTOYO/Cavendish ProtocolWritten Consent Obtained: YesSign In Communication: CompletedTime Out completed: Team confirms correct patient, procedure, side/site,position (if applicable) and completion AND review of fire riskassessment/protocols (if appropriate)Affirmation of Time Out: YesSign Out Discussion: YesPre-procedure Details:Personnel directly involved with the procedure wore the appropriate PPE.PPE Used: Sterile gloves, sterile gown, mask and capThe area was prepped with chlorhexidine (Chloroprep) and allowed to dry.A sterile full body drape was applied following the usual aseptictechnique.[facility] Central Line Insertion Checklist Utilized: yesMedications:Local anesthesia Local Anesthesia (see MAR): Lidocaine 1%Procedure Details:Indication: HemodialysisPatient Position: TrendelenburgSite: Right internal jugular veinNew Stick: The vein was located with a small gauge finder needle andcannulated under direct ultrasound visualization with a single lumencatheter.An image was captured.A small skin incision was made and the tract was sequentially dilated withsemi-rigid tissue dilators.A 15 cm dual lumen, 14 Fr, non-tunneled catheter was advanced over theguidewire and left in situ while the guidewire was removed.Assessment: Blood return through all portsPost-procedure X-ray: PendingAll catheters, needles, and wires were accounted for and intactNumber of attempts: 1Successful Placement: YesPost-procedure Details:Patient tolerated the procedure well with no immediate complicationsEstimated Blood Loss: NoneSpecimens Sent: NoneSIGNATURE: Sukhwinder Santoyo MD PATIENT NAME: Hung TamkroneDATE: November 06, 2017 : 7:28 PM PAGER/CONTACT #: [phone] Normal [facility] PROGRESSon 11-06-2017 Protein mass conc HNO ID: [id number] thor: Lao (Pa) ScovilService: Critical CareAuthor Type: Physician AssistantType: Progress NotesFiled: 11/06/2017 1:07 PMNote Text:SERVICE DATE: 11/06/2017SERVICE TIME: 1:03 PMMICU PROGRESS NOTEAdmission Date: 11/03/2017Hospital Day # 3SUBJECTIVEInterval Events: No ChangeOBJECTIVEVital Signs (last filed) Range in last 24hTemp: 36.6 ?C (97.9 ?F) (11/06/17 0800) Temp Min: 36.4 ?C (97.5 ?F) Max:36.6 ?C (97.9 ?F)Pulse: 101 (11/06/17 1200) Pulse Min: 76 Max: 103Resp: 23 (11/06/17 1200) Resp Min: 12 Max: 31BP: 117/75 (11/06/17 1200) BP Min: 112/57 Max: 152/75MAP Non Invasive (Mean Arterial Pressure): 90 (11/06/17 1200) MAP NonInvasive (Mean Arterial Pressure) Min: 77 Max: 107 No Data RecordedSpO2: 97 % (11/06/17 1200) SpO2 Min: 72 % Max: 97 %Pain Score: 0/10 (11/06/17 0400)Fluid Balance:Intake/Output Summary (Last 24 hours) at 11/06/17 0659Last data filed at 11/06/17 0300 Gross per 24 hourIntake 851 mlOutput 250 mlNet 601 mlLast Weight: 94.5 kg (208 lb 5.4 oz) (11/04/17 0600)Admit Weight: 94.9 kg (209 lb 3.5 oz) (11/03/17 1407)DIET LIQUIDLines, Drains, and Airways Line Central Line Single Lumen 09/20/17 Peripherally Inserted (PICC) Right Arm47 daysVent/Oxygen: Supplemental Oxygen: NoNo Data RecordedPhysical Examination PerformedOral Mucosa: Dry mucous membranesEyes: PERRL Neck: UnremarkableCardiovascular: Regular rhythmRespiratory: Clear to auscultationAbdomen: Soft, Nontender and Positive bowel soundsExtremities: Edema- No Peripheral Pulses- 2+ radial pulsesSkin: Abnormalities- Yes Breakdown- See RN documentationNeurologic: Awake, oriented, Alert, Follows commands and Moving allextremitiesInfusion Medicationsinsulin regularDiagnostic tests reviewed today: Most recent labs and imaging results.PATIENT CHECKLIST? Are restraints necessary: No? Deep vein thrombosis prophylaxis administered? No. Contraindicated.? Stress ulcer prophylaxis? Yes? Nasogastric tube? No? Morejon catheter necessary? Yes? Is central line essential? Yes? Plan discussed with assigned RN? Yes? Family updated within last 24 hours? YesCARE COORDINATION:Patient Summary:57 year old male with PMHx of Factor V Leiden c/b DVT and PE on Coumadinand Right Total Knee Replacement 07/2017 who was transferred from an OSHd/t concern for DRESS vs SJS/TEN and RP bleed in the setting of elevatedINR (19.5 on admission to OSH ED).Major Interval Events:11/03: Admitted to MICU from OSH for RP bleed11/04: Hgb drop, transfused 1 PRBC, 2 FFP.11/05: Hgb fell to 6.4 overnight, transfused 1 unit PRBC11/06: Hgb 6.7 overnight, transfused 1U PRBCs, Cr and BUN continue toincrease, UOP decreasing, K 5.8, phos 6.3, LFTs trending downPlan for the Day:- per nephro will medically treat hyperkalemia for now, will likely needdialysis tomorrow- lasix 120mg x1- f/u acute liver injury w/u- IVMP taper per derm recsDispo:? Full code? Monitor in MICUASSESSMENT AND PLANOverview, Assessment AND Plan, all Hosp ProblemsActive Hospital Problems as of 11/06/2017 Noted - Resolved Retroperitoneal bleed 11/03/2017 - Present Current Assessment AND Plan Assessment: OSH CT A/P (11/03) with RP bleed in setting ofsupratherapeutic INR- INR on admission to OSH 10/28 >19.5. S/p 3 units of FFP- INR on 11/03 prior to transfer 7.4 received 2 units of FPP- 1 PRBC, 2 FFP overnightPLAN:? Trend HGB? Correct coagulopathy? IR consulted- no intervention at this time, continue medical management, Repeat CTA abdomen if decompensates DAYNA (acute kidney injury) (HCC) 11/03/2017 - Present Current Assessment AND Plan Assessment: Nonoliguric DAYNA/ATN secondary to hemodynamic instability vsDRESS syndrome.Normal SCr at baseline. SCr peaked at OSH (10/30) at 2.7- continues toworsenPLAN:? Closely monitor UOP, SCr AND lytes? Avoid Nephrotoxic agents? Renally dose meds? Nephrology following- likely will need dialysis tomorrow Hepatitis 11/03/2017 - Present Current Assessment AND Plan Assessment: likely 2/2 to DRESS vs shock liver. US (11/01) thickened GBwall with a small amt of pericholecystic fluid. Mild hepatomegaly withwith mild fatty infiltration. Evaluated by surg at OSH with no recommendedintervention.- transaminase trending down, acute hep panel significant for previous Bexposure, US with appropriate flow, no biliary dilation, non-specific GBwall thickeningPLAN:? Trend LFTs? F/u hepatitis w/u? Hepatology following Factor V Leiden (HCC) 11/03/2017 - Present Current Assessment AND Plan Assessment: H/o Factor V Leiden with h/o PE/DVT on coumadin.Supratherapetic INR of 19 on presentation to OSH 10/28.PLAN:? Holding anticoagulation in setting of supratherapeutic INR and anemia? Correct coagulopathy given new RP bleed Drug induced rash with eosinophilia and systemic symptoms 11/03/2017 -Present Current Assessment AND Plan Assessment: Suspected DRESS at OSH with fever, desquamating rash,peripheral eosinophilia, DAYNA, hepatitis in setting of vanco therapy in08/2017 for thigh abscessPLAN:? Supportive management? Methylprednisolone 40 mg daily - Taper by 10 mg q10 days per Derm recs? Appreciate Derm recs Anemia due to blood loss 11/03/2017 - Present Current Assessment AND Plan Assessment: Secondary to RP bleedPLAN:? Trend CBC. Blood product support as needed. Supratherapeutic INR 11/03/2017 - Present Current Assessment AND Plan Assessment: S/p vitamin K and 5 units FFP at OSH. Persistentsupratherapeutic INR thought to be secondary to liver dysfunctionPLAN:? Trend INR? Correct coagulopathy? Send TEG Mild protein-calorie malnutrition (HCC) 11/04/2017 - Present Current Assessment AND Plan PLAN:? Full liquid diet - Advance as appropriate Coagulopathy (HCC) 11/04/2017 - Present Current Assessment AND Plan PLAN:? Trend? Correct as indicatedMedication and Non-Pharmacologic VTE Prophylaxis/Vamirdjuajovnz00 /14/18 1615 activity - mobilize patient (ri,oh)11/03/17 1445 vte pharmacologic prophylaxis contraindicated (ri,oh)11/03/17 1445 pneumatic compression stockings (ri,oh)11/03/17 1445 activity - mobilize patient (ri,vt)VTE Prophylaxis: VTE prophylaxis appropriatePlan of care discussed with: Patient and ICU TeamSIGNATURE: Tashia Pickard PA-C PATIENT NAME: Hung AhumadaoneDATE: November 06, 2017 : 1:03 PM PAGER/CONTACT #: [phone] Normal [facility] Protein mass conc HNO ID: [id number] thor: Raed DweikService: Pulmonary DiseaseAuthor Type: PhysicianType: Progress NotesFiled: 11/06/2017 12:45 PMNote Text:[facility] STAFF PHYSICIAN NOTE OF PERSONAL INVOLVEMENT IN CAREI have reviewed the progress note obtained and documented by the physicianassistant and I personally participated in the madrigal components. I havediscussed the case and management of the patient's care. The followingcomments revise or confirm relevant madrigal components of the note.IMPRESSION:Mr. Peck is a 57 year old White male with PMHx of Factor V Leiden c/b DVT and PE on Coumadin and Right TotalKnee Replacement 07/2017 who was transferred from an OSH d/t concern forDRESS and RP bleed in the setting of elevated INR (19.5 on admission [facility] ED).Currently:Awake, alertBP 152/75 Pulse 76 Temp 36.6 ?C (97.9 ?F) (Axillary) Resp 13 Ht 188 cm (6' 2) Wt 94.5 kg (208 lb 5.4 oz) SpO2 96% BMI 26.75kg/m?No pressorsDerm confirming DRESSA:(J96.01) Acute respiratory failure with hypoxia (HCC)(N17.9) DAYNA (acute kidney injury) (HCC)(R94.5) Elevated LFTs(D68.51) Factor V Leiden (HCC)(R58) Retroperitoneal bleed(R79.1) Supratherapeutic INRDRESSPLAN:Derm and hepatology help appreciatedIV vit K per hepatology recommendationsWatch hhdiureserenal onboard to consider dialysis: rising BUN and creat and KThis patient has a high probability of sudden, clinically significantdeterioration, which requires the highest level of physician preparednessto intervene urgently. I managed/supervised life or organ supportinginterventions that required frequent physician assessment. I devoted myfull attention to the direct care of this patient for the amount of timeindicated below. Time I spent with family or surrogate(s) is includedonly if the patient was incapable of providing the necessary informationor participating in medical decision making. Time devoted to teaching andto any procedures I billed separately is not included.Critical Care Documentation: The patient has the following organ/systemimpairment(s): Complex life-threatening medical problem(s)Time spent providing critical care services: 30 minutes.Nichelle Ruiz MD Normal [facility] Phosphoruson 11-06-2017 Phosphate mass conc 7.2 mg/dL High 2.7-4.8 [facility] Comment on above: Performed By: #### P T, PTT, LACT, CMP, MG1, PHOS, CBCDIF ####[facility] [address] [place], [place] [phone] Phosphate mass conc 6.3 mg/dL High 2.7-4.8 [facility] Comment on above: Performed By: #### P T, PTT, LACT, CMP, MG1, PHOS, CBCDIF ####[facility] [address] [place], [place] [phone] Protimeon 11-06-2017 INR Coag RelTime (Bld) 1.6 {INR} High 0.9-1.3 [facility] Comment on above: Result Comment: Nini min K Antagonist (VKA) Therapeutic Range: INR 2 to 3 (Target INR of 2.5)Note: For patients treated with VKA drugs, such as warfarin, the [employer] 2012 Guideline recommends a therapeutic INR range of 2 to 3 (target INR of 2.5). This recommendation includes high-risk patients with antiphospholipid syndrome with previous arterial or venous thromboembolism, current-generation mechanical or bioprosthetic aortic heart valve replacement.Note: Patients with mechanical aortic valve replacement and additional risk factors for thromboembolic events (atrial fibrillation, previous thromboembolism, LV dysfunction, hypercoagulable conditions) or an older generation mechanical AVR (i.e., ball in-Cage) or any mechanical MVR should have a INR therapeutic range of 2.5 to 3.5 (target INR of 3).Raghav GH, et al. Chest 2012, 141:7S-47SNishimura RA, et al. [facility] 2017, 70: 252-289 Performed By: #### P T, PTT, LACT, CMP, MG1, PHOS, CBCDIF ####[facility] [address] [place], [place] [phone] PT Sec 16.1 sec High 9.7-13.0 [facility] Comment on above: Performed By: #### P T, PTT, LACT, CMP, MG1, PHOS, CBCDIF ####[facility] [place], [place] [phone] INR Coag RelTime (Bld) 2.5 {INR} High 0.9-1.3 [facility] Comment on above: Result Comment: Nini min K Antagonist (VKA) Therapeutic Range: INR 2 to 3 (Target INR of 2.5)Note: For patients treated with VKA drugs, such as warfarin, the [employer] 2012 Guideline recommends a therapeutic INR range of 2 to 3 (target INR of 2.5). This recommendation includes high-risk patients with antiphospholipid syndrome with previous arterial or venous thromboembolism, current-generation mechanical or bioprosthetic aortic heart valve replacement.Note: Patients with mechanical aortic valve replacement and additional risk factors for thromboembolic events (atrial fibrillation, previous thromboembolism, LV dysfunction, hypercoagulable conditions) or an older generation mechanical AVR (i.e., ball in-Cage) or any mechanical MVR should have a INR therapeutic range of 2.5 to 3.5 (target INR of 3).Guyatt GH, et al. Chest 2012, 141:7S-47SNishimura RA, et al. [facility] 2017, 70: 252-289 Performed By: #### P T, PTT, LACT, CMP, MG1, PHOS, CBCDIF ####[facility] [address] [place], [place] [phone] PT Sec 24.5 sec High 9.7-13.0 [facility] Comment on above: Performed By: #### P T, PTT, LACT, CMP, MG1, PHOS, CBCDIF ####[facility] [place], [place] [phone] THERAPY NTon 11-06-2017 THERAPY NT HNO ID: [id number] thor: Alfreda (Pt) MagnerService: Physical TherapyAuthor Type: Physical TherapistType: Therapy (PT/OT/Speech/Resp)Filed: 11/06/2017 1:19 PMNote Text:Physical Therapy EvaluationSERVICE DATE: 11/06/2017SERVICE TIME: 1005 to 1058ROOM: [id number] Discharge Disposition: Unable to determine due to criticalcare statusPT Recommendations to Nursing: With assist of 1 person;Transfer to/fromchair;OOB for Meals;Ambulate with deviceDevice: Wheeled WalkerPT 6 Clicks Score: 17ASSESSMENT :Patient presents with impaired Strength/Tone, Cognitive/Perceptual,Balance , Coordination, Functional Mobility and ActivityTolerance.impacting the ability to function without assistance fromcaregivers. Patient requires Min assist with all functional mobilityincluding Minimal: Tactile, Verbal for safety. Pt also requiresinstructions/ education regarding safe activity dosing. Pt wishes toreturn home but needs exceed resources available at this time. Ptrequires skilled therapy to address current functional limitations andimpairments as well as to progress activities within safe limits. Willdetermine discharge when appropriate. Patient will likely progress to homewith PT.Patient Disposition at Start of Session: Supine in BedPatient Disposition at End of Session: OOB in ChairTolerated Full SessionPhysical Therapy Problem List: Decreased Activity Tolerance;DecreasedStrength; Functional Mobility Impairment;Balance Impaired;CognitiveDeficit;Ed ucation DeficitPatient /Caregiver Goals: Go HomeGoals for Plan of Care:Rolling with: Contact Guard AssistanceTransfer supine to/from sit with: Contact Guard AssistanceTransfer sit to/from stand with: Contact Guard AssistanceAmbulate with: Contact Guard AssistanceDistance: 50Device: Wheeled WalkerRehab Potential: Excellent Based on progress towards goalsPLAN:Treatment Frequency (times per week): 3 Current admissionTreatment Interventions: Education;Energy ConservationTraining;Strengt hening;Functional Mobility Training;Balance TrainingPlan of Care developed with: PatientTREATMENT INTERVENTIONS:Therapy Diagnosis: Reduced mobility-otherInterventions Provided: Evaluation;Therapeutic Activity (17991)$ Evaluation-Moderate (72154) Billed Units: 1 unitTherapeutic Activity (41007) Treatment Minutes: 383 unitsSkilled Intervention(s): Education on the role of PT and the importance ofmobility. Bed mobility with VC for good Log roll technique and LEadvancement min assist provided to achieve erect posture. Seated therex todecrease dizziness ankle pumps x 10, LAQ x 10, marches x 10. Education onslow controlled transitions and deep breathing. Cueing for proper use ofWW and good hand placement for safety. Stand pivot transfer with minassist and verbal cueing for lateral stepping and balance. Extra timerequired due to increased anxiety with mobility. Patient and familyeducation on increasing OOB activities and increasing independence.Discussion on discharge planning and current level of mobility. Skilledintervention for ICU line/room setup for safe mobility environment as wellas for vital sign monitoring to assess hemodynamic and respiratoryresponse to activity to prescribe safe intensity and duration ofactivity/exercise during above interventions. Will determine dischargewhen appropriate.Highest Level of Mobility (-HLM)This scale indicates the objective performance level this date and doesnot reflect clinical judgment of capability. Today the patient scored a 5on the JH-HLM. Explanations are noted in the chart below.?? Criteria ScoreWalk 250+ feet 8? 25+ feet 7? 10+ steps 6Stand > 1 minute 5Chair Transfer to chair 4Bed Sitting at EOB 3? Turning self/bed activity* 2? Only laying 1*Includes PROM/AROM, bed exercises and UE/LE movementTotal Timed Code Treatment Minutes: 38Total Treatment Time (minutes): 53FUNCTIONAL G CODE:PT 6 Clicks Score: 17 (11/06/17 1005)Mobility: Walking and Moving Around Current Status (G8978): CK ()Mobility: Walking and Moving Around Goal Status (G8979): CJ ()Based on clinical assessment and the score on the 6 Clicks FunctionalAssessment Tool, the G code and corresponding severity modifiers aredocumented above.SUBJECTIVE:Current Hospital Course: Chart reviewed; , 57 year old male with PMHx ofFactor V Leiden c/b DVT and PE on Coumadin and Right Total KneeReplacement 07/2017 who was transferred from an OSH d/t concern for DRESSvs SJS/TEN and RP bleed in the setting of elevated INR (19.5 on admissionto OSH ED).?Major Interval Events:11/03: Admitted to MICU from OSH for RP bleed11/04: Hgb drop, transfused 1 PRBC, 2 FFP.11/05: Hgb fell to 6.4 overnight, transfused 1 unit PRBC11/06: Hgb 6.7 overnight, transfused 1U PRBCs, Cr and BUN continue toincrease, UOP decreasing, K 5.8, phos 6.3, LFTs trending downPatient Report: I feel like things are fuzzy patient agreeable to PTsessionHome EnvironmentPatient Lives With: Significant OtherAssistance Available: 24 HourEntry To Home: StairsNumber Of Stairs Into Home: 2Prior Functional Level: Within Functional Limits (recently using a walkerafter last admit)OBJECTIVE:CURRENT FUNCTIONAL STATUS: further mobility deferred due to concernsfor patient safety and toleranceCurrent Functional Mobility Assist Level Additional InformationRolling Minimal AssistanceSupine to Sit Minimal AssistanceSit to SupineScooting Minimal AssistanceSit to Stand Minimal AssistanceStand to Sit Minimal AssistanceBed to Chair Minimal Assistance Bed To Chair Transfer Type: Stand PivotBed To Chair Transfer Equipment: Gait Belt;Wheeled WalkerToilet/CommodeGaitStai rsCurb StepCar TransferPlease see discipline specific clinical documentation flowsheet forcomplete details for this therapy evaluation/treatment.SIGNATU RE: Alfreda Rajan PT PATIENT NAME: Hung AhumadaoneDATE: November 06, 2017 : 1:13 PM Normal [facility] XR CHEST 1V FRONTAL PORTon 0 11-06-2017 XR CHEST 1V FRONTAL PORT * * *Final Report* * *DATE OF EXAM: Nov 06 2017 7:43PM LAURA [id number] - XR CHEST 1V FRONTAL PORT / REASON: Evaluate tube, line or lead position * * * * Physician Interpretation * * * * EXAMINATION: CHEST RADIOGRAPH (PORTABLE SINGLE VIEW AP)Exam Date/Time: 11/06/2017 7:43 PMClinical History: Evaluate tube, line or lead position,MQ: [id number]: 11/03/2017RESULT:See impression.IMPRESSION:Lines, tubes, and devices: Right IJ venous catheter has been placed, with its tip in the mid SVC. Right PICC is unchanged in position.Lungs and pleura: Hazy opacity is noted at the left lung base, likely related to small left pleural effusion and adjacent atelectasis/consolidation. Also noted is trace right pleural effusion with adjacent atelectasis. Patchy perihilar opacities are likely related to venous congestion and mild interstitial edema. No pneumothorax.Cardiomediastin al silhouette: Cardiomediastinal silhouette is mildly enlarged.Other: Degenerative changes are noted in the thoracic spine.[employer] Operator: MARGARITA Transcribe Date/Time: Nov 06 2017 8:00PDictated by : AGUILAR NELSON MDThis examination was interpreted and the report reviewed and electronically signed by: AGUILAR NELSON MD on Nov 06 2017 8:00PM [id number] Normal [facility] Basic Metabolic Panlon 11-05 Anion gap 3 molar conc 12 mmol/L Normal 9-18 [facility] Comment on above: Performed By: #### P T, PTT, LACT, CMP, MG1, PHOS, CBCDIF ####[facility] [place] [address] [phone] Calcium mass conc 7.1 mg/dL Low 8.5-10.2 [facility] Comment on above: Performed By: #### P T, PTT, LACT, CMP, MG1, PHOS, CBCDIF ####[address] [phone] Chloride molar conc 109 mmol/L High 97-105 [facility] Comment on above: Performed By: #### P T, PTT, LACT, CMP, MG1, PHOS, CBCDIF ####[facility] [place], [place] [phone] CO2 molar conc 19 mmol/L Low 22-30 [facility] Comment on above: Performed By: #### P T, PTT, LACT, CMP, MG1, PHOS, CBCDIF ####[facility] [place], [place] [phone] Creatinine mass conc 4.74 mg/dL High 0.73-1.22 [facility] Comment on above: Performed By: #### P T, PTT, LACT, CMP, MG1, PHOS, CBCDIF ####[facility] [address] [place], [place] [phone] eGFR- Amer. 15 Normal [facility] Comment on above: Performed By: #### P T, PTT, LACT, CMP, MG1, PHOS, CBCDIF ####[facility] [place], [place] [phone] GFR/1.73 sq M predicted among non-blacks MDRD vol rate/area (S/P/Bld) 13 . Normal [facility] Comment on above: Result Comment: eGFR (Estimated GFR) Units of measure: mL/min/1.73 meters squaredeGFR is derived from the reexpressed MDRD Study equation using the following parameters: serum creatinine, age, gender and race. The creatinine assay has been calibrated to be traceable to IDMS.An eGFR <60 mL/min/1.73m2 for >3 months is consistent with chronic kidney disease. Refer to KDOQI guidelines for clinical interpretation.In patients with unstable renal function, e.g. those with acute kidney injury, the eGFR may not accurately reflect actual GFR. Performed By: #### P T, PTT, LACT, CMP, MG1, PHOS, CBCDIF ####[place] [address] [place], [place] [phone] Glucose mass conc 97 mg/dL Normal 74-99 [facility] Comment on above: Result Comment: The [place] Diabetes Association (ADA) provides guidance for cutoff values for fasting glucose and random glucose. The ADA defines fasting as no caloric intake for at least 8 hours. Fasting plasma glucose results between 100 to 125 mg/dL indicate increased risk for diabetes (prediabetes).Fasting plasma glucose results greater than or equal to 126 mg/dL meet the criteria for diagnosis of diabetes. In the absence of unequivocal hyperglycemia, results should be confirmed by repeat testing. In a patient with classic symptoms of hyperglycemia or hyperglycemic crisis, random plasma glucose results greater than or equal to 200 mg/dL meet the criteria for diagnosis of diabetes.Reference: Standards of Medical Care in Diabetes 2016, [place] Diabetes Association. Diabetes Care. 2016.39(Suppl 1). Performed By: #### P T, PTT, LACT, CMP, MG1, PHOS, CBCDIF ####[place] [address], [place] [phone] Potassium molar conc 5.2 mmol/L High 3.7-5.1 [facility] Comment on above: Performed By: #### P T, PTT, LACT, CMP, MG1, PHOS, CBCDIF ####[address] [phone] Sodium molar conc 140 mmol/L Normal 136-144 [facility] Comment on above: Performed By: #### P T, PTT, LACT, CMP, MG1, PHOS, CBCDIF ####[address] [phone] Urea nitrogen mass conc 60 mg/dL High 9-24 [facility] Comment on above: Performed By: #### P T, PTT, LACT, CMP, MG1, PHOS, CBCDIF ####[address] [phone] CBCon 11-05-2017 Absolute nRBC 0.09 k/uL High <0.01 [facility] Comment on above: Performed By: #### P T, PTT, LACT, CMP, MG1, PHOS, CBCDIF ####[address] [phone] Erythrocyte distribution width Auto Ratio (RBC) 16.4 % High 11.5-15.0 [facility] Comment on above: Performed By: #### P T, PTT, LACT, CMP, MG1, PHOS, CBCDIF ####[address], [place] [phone] Hematocrit Auto Volume Fraction (Bld) 20.9 % Low 39.0-51.0 [facility] Comment on above: Performed By: #### P T, PTT, LACT, CMP, MG1, PHOS, CBCDIF ####[place] [address] AveCSan [place], [place] [phone] Hemoglobin mass conc (Bld) 7.2 g/dL Low 13.0-17.0 [facility] Comment on above: Performed By: #### P T, PTT, LACT, CMP, MG1, PHOS, CBCDIF ####[address] [place], [place] [phone] MCH Auto Entitic mass (RBC) 30.0 pG Normal 26.0-34.0 [facility] Comment on above: Performed By: #### P T, PTT, LACT, CMP, MG1, PHOS, CBCDIF ####[place] [phone] MCHC Auto mass conc (RBC) 34.4 g/dL Normal 30.5-36.0 [facility] Comment on above: Performed By: #### P T, PTT, LACT, CMP, MG1, PHOS, CBCDIF ####[place] [phone] MCV Auto Entitic volume (RBC) 87.1 fL Normal 80.0-100.0 [facility] Comment on above: Performed By: #### P T, PTT, LACT, CMP, MG1, PHOS, CBCDIF ####[address] [phone] Platelet mean volume Auto Entitic volume (Bld) 10.5 fL Normal 9.0-12.7 [facility] Comment on above: Performed By: #### P T, PTT, LACT, CMP, MG1, PHOS, CBCDIF ####[address] [phone] Platelets Auto #/vol (Bld) 163 10*3/uL Normal 150-400 [facility] Comment on above: Performed By: #### P T, PTT, LACT, CMP, MG1, PHOS, CBCDIF ####[address] [phone] RBC Auto #/vol (Bld) 2.40 10*6/uL Low 4.20-6.00 Cl [facility] Comment on above: Performed By: #### P T, PTT, LACT, CMP, MG1, PHOS, CBCDIF ####[address] [phone] WBC Auto #/vol (Bld) 13.68 10*3/uL High 3.70-11.00 C [facility] Comment on above: Performed By: #### P T, PTT, LACT, CMP, MG1, PHOS, CBCDIF ####[address] [phone] CBC and Differentialon 11-05 Abs Baso 0.00 k/uL Normal <0.11 [facility] Comment on above: Performed By: #### P T, PTT, LACT, CMP, MG1, PHOS, CBCDIF ####[address] [phone] Abs Haskell 1.35 k/uL High <0.87 [facility] Comment on above: Performed By: #### P T, PTT, LACT, CMP, MG1, PHOS, CBCDIF ####[address] [phone] Abs Neut 10.97 k/uL High 1.45-7.50 [facility] Comment on above: Performed By: #### P T, PTT, LACT, CMP, MG1, PHOS, CBCDIF ####[address] [phone] ANC(includeSEG+BAND) 10.97 k/uL Normal [facility] Comment on above: Performed By: #### P T, PTT, LACT, CMP, MG1, PHOS, CBCDIF ####[place] [address] [address] AveC[address]Sh[address] [phone] Anisocytosis Auto Ql (Bld) Present Normal [facility] Comment on above: Performed By: #### P T, PTT, LACT, CMP, MG1, PHOS, CBCDIF ####[place] [address] [phone] Basophils/100 WBC Auto (Bld) 0.0 % Normal [facility] Comment on above: Performed By: #### P T, PTT, LACT, CMP, MG1, PHOS, CBCDIF ####[place] [address] [phone] DTYPE Manual Diff Normal [facility] Comment on above: Performed By: #### P T, PTT, LACT, CMP, MG1, PHOS, CBCDIF ####[place] [address] [phone] Eosinophils Auto #/vol (Bld) 0.45 10*3/uL Normal <0.46 [facility] Comment on above: Performed By: #### P T, PTT, LACT, CMP, MG1, PHOS, CBCDIF ####[place] [address] [phone] Eosinophils/100 WBC Auto (Bld) 3.0 % Normal [facility] Comment on above: Performed By: #### P T, PTT, LACT, CMP, MG1, PHOS, CBCDIF ####[place] [address] [phone] Erythrocyte distribution width Auto Ratio (RBC) 16.7 % High 11.5-15.0 [facility] Comment on above: Performed By: #### P T, PTT, LACT, CMP, MG1, PHOS, CBCDIF ####[place] [address] [phone] Hematocrit Auto Volume Fraction (Bld) 18.7 % Low 39.0-51.0 [facility] Comment on above: Performed By: #### P T, PTT, LACT, CMP, MG1, PHOS, CBCDIF ####[address] [phone] Hemoglobin mass conc (Bld) 6.4 g/dL Low 13.0-17.0 [facility] Comment on above: Performed By: #### P T, PTT, LACT, CMP, MG1, PHOS, CBCDIF ####[place] [phone] Lymphocytes Auto #/vol (Bld) 2.10 10*3/uL Normal 1.00-4.00 [facility] Comment on above: Performed By: #### P T, PTT, LACT, CMP, MG1, PHOS, CBCDIF ####[place] [phone] Lymphocytes/100 WBC Auto (Bld) 14.0 % Normal [facility] Comment on above: Performed By: #### P T, PTT, LACT, CMP, MG1, PHOS, CBCDIF ####[address] [phone] MCH Auto Entitic mass (RBC) 29.1 pG Normal 26.0-34.0 [facility] Comment on above: Performed By: #### P T, PTT, LACT, CMP, MG1, PHOS, CBCDIF ####[address] [phone] MCHC Auto mass conc (RBC) 34.2 g/dL Normal 30.5-36.0 [facility] Comment on above: Performed By: #### P T, PTT, LACT, CMP, MG1, PHOS, CBCDIF ####[address], [place] [phone] MCV Auto Entitic volume (RBC) 85.0 fL Normal 80.0-100.0 [facility] Comment on above: Performed By: #### P T, PTT, LACT, CMP, MG1, PHOS, CBCDIF ####[place] [address] [phone] Monocytes/100 WBC Auto (Bld) 9.0 % Normal [facility] Comment on above: Performed By: #### P T, PTT, LACT, CMP, MG1, PHOS, CBCDIF ####[place] [address] [phone] Myelo% 1.0 % Normal [facility] Comment on above: Performed By: #### P T, PTT, LACT, CMP, MG1, PHOS, CBCDIF ####[place] [address] [address] [place] [phone] Neutrophils/100 WBC Auto (Bld) 73.0 % Normal [facility] Comment on above: Performed By: #### P T, PTT, LACT, CMP, MG1, PHOS, CBCDIF ####[place] [phone] Ovalocytes Few Normal [facility] Comment on above: Performed By: #### P T, PTT, LACT, CMP, MG1, PHOS, CBCDIF ####[place] [phone] Platelet mean volume Auto Entitic volume (Bld) 11.4 fL Normal 9.0-12.7 [facility] Comment on above: Performed By: #### P T, PTT, LACT, CMP, MG1, PHOS, CBCDIF ####[address] [phone] Platelets Auto #/vol (Bld) 159 10*3/uL Normal 150-400 [facility] Comment on above: Performed By: #### P T, PTT, LACT, CMP, MG1, PHOS, CBCDIF ####[facility] AveCSan [place], [place] [phone] Platelets Auto #/vol (Bld) Platelet estimate adequate Normal [facility] Comment on above: Performed By: #### P T, PTT, LACT, CMP, MG1, PHOS, CBCDIF ####[facility] AveCSan [place], [place] [phone] Polychromasia Slight Normal [facility] Comment on above: Performed By: #### P T, PTT, LACT, CMP, MG1, PHOS, CBCDIF ####[address], [place] [phone] RBC Auto #/vol (Bld) 2.20 10*6/uL Low 4.20-6.00 Cl [facility] Comment on above: Performed By: #### P T, PTT, LACT, CMP, MG1, PHOS, CBCDIF ####[address], [place] [phone] Thyrotropin Qn Present Normal [facility] Comment on above: Performed By: #### P T, PTT, LACT, CMP, MG1, PHOS, CBCDIF ####[facility], [place] [phone] WBC Auto #/vol (Bld) 15.03 10*3/uL High 3.70-11.00 C [facility] Comment on above: Performed By: #### P T, PTT, LACT, CMP, MG1, PHOS, CBCDIF ####[facility]CS[address] [place], [place] [phone] CONSULTon 11-05-2017 CONSULT HNO ID: [id number] thor: Shane Altman: NephrologyAuthor Type: PhysicianType: ConsultsFiled: 11/05/2017 4:15 PMNote Text:CONSULT: NEPHROLOGY SERVICESERVICE DATE: 11/05/2017SERVICE TIME: 12:41 PMREASON FOR CONSULT: I am asked to see this patient in consultation for myopinion regarding DAYNA. My recommendations will be communicated by way ofshared medical record.REQUESTING PHYSICIAN:PRIMARY CARE PHYSICIAN: Monster Keating COMPLAINT:HPI: Mr. 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 He was found to have asupratherapeutic INR of 19.5. He was admitted to the MICU with shock inthe setting of concern for right LE abscess. Antibiotic treatment wascomplicated by desquamating rash concerning for DRESS vs SJS/TEN. Hiscourse at that time was complicated by DAYNA, transaminitis, proteinuria.All antibiotics were stopped and he was started on IV steroids. He had aCT A/P on 11/03 with concern for RP bleed. He was found to have a Hb of 5.4and was transfused (INR 7.9 at that time). [facility] forfurther management.As for his renal function, no prior labs available to establish baseline.Admitted with Cr of 2.48 and increased to 4.74 today. Renal US withincreased parenchymal echogenicity b/l.Per notes, his baseline Cr is normal and [facility] On [facility], pressures mildly low to late 90s-100s systolics. No contrastexposure. He did have a Hb drop to 5.9 on 11/04Since admission, he has been hemodynamically stbale, off pressors. UOP notcharted accurately? Duration (when): 1 week? Location (where): kidneys? Severity (ex: creat 4.5, BP 200/100): Cr 4.7? Quality (ex: sharp, dull): NA? Context (ex: activity at onset or related to condition): ?? Timing (ex: continuous, intermittent): continuous? Modifying factors (ex: medications, interventions): NA? Associated signs AND symptoms (ex: edema, SOB): NAPMH:Factor V leidinSH:S/p R TKAFH:No known history of kidney issues.Social HistorySubstance Use Topics- Smoking status: Not on file- Smokeless tobacco: Not on file- Alcohol use Not on fileMEDICATIONS: Prior to Admission MedicationsNo prescriptions prior to admission.Current hospital medications:potassium chloride ER 40 mEq tab(s) (K-DUR, KLOR-CON) 40 mEq ORAL/FEEDINGTUBE q 2 H PRNmagnesium sulfate in water 4-6 g in sterile water 50 ml 4-6 g INTRAVENOUSPRNsodium phosphate 45 mmol in NaCl 0.9% 250 mL 45 mmol INTRAVENOUS PRN0.9% NaCl 3-5 mL 3-5 mL INTRAVENOUS q 12 H0.9% NaCl 10 mL 10 mL INTRAVENOUS q 12 H0.9% NaCl 20 mL 20 mL INTRAVENOUS PRNinsulin regular human injection (short acting) (NovoLIN R,HumuLIN R)SUBCUTANEOUS q 6 Hinsulin regular 250 units in NaCl 0.9% 250 mL iv infusion - ICU NOMOGRAM0.5-30 Units/hr INTRAVENOUS CONTINUOUSdextrose 50% in water 25-50 mL syringe 12.5-25 g INTRAVENOUS PRNdextrose 40 % 15 g 15 g ORAL PRNglucagon 1 mg injection (GLUCAGEN) 1 mg SUBCUTANEOUS PRNoxyCODONE IR 5-10 mg tab(s) (ROXICODONE) 5-10 mg ORAL/FEEDING TUBE q 4 HPRNHYDROmorphone 0.5-1 mg injection (DILAUDID) 0.5-1 mg INTRAVENOUS q 4 H PRNpantoprazole 40 mg injection (PROTONIX) 40 mg INTRAVENOUS DAILY (6 AM)methylPREDNISolone (MEDROL) tab(s) 40 mg 40 mg ORAL DAILYALLERGIESAllergen Reactions- Linezolid Rash Concern of DRESS- Vancomycin Rash Concern of DRESSREVIEW OF SYSTEMS:Constitutional: No fever and No chillsEyes: No loss in vision and No photophobiaEar, Nose, and Throat: No oral ulcers and No epistaxisCardiovascular: No chest pain or pressure and No orthopneaRespiratory: No hemoptysisGastrointestinal: No diarrhea and No constipationGenitourinary: No nocturia and No hesitancyMusculoskeletal: No joint pain and No joint swellingSkin: No pruritis and No rashNeurological: No tremor and No headachePsychiatric: No depression and No anxietyEndocrine: No hypoglycemic events and No polydipsiaHematologic:No issues with bruising easily and No issues with bleedingeasilyObjectivePHYSI RIGOBERTO EXAM:BP 124/61 Pulse 96 Temp 36.6 ?C (97.9 ?F) (Oral) Resp 21 Ht188 cm (6' 2) Wt 94.5 kg (208 lb 5.4 oz) SpO2 94% BMI 26.75kg/m?Intake/Output Summary (Last 24 hours) at 11/05/17 1241Last data filed at 11/05/17 0600 Gross per 24 hourIntake 1186 mlOutput 200 mlNet 986 mlConstitutional: No acute distress, Responsive and OverweightEyes: Conjunctiva clearEar, Nose, and Throat: Hearing normal, Lips normal and Dentition normalNeck: Trachea midlineCardiovascular: Regular rate and rhythm; S1 + S2 + 0Respiratory: CTABAbdomen: softMusculoskeletal: No clubbing or cyanosis of digits. and Normocephalic.Neurologic: CN II-XII intactPsychiatric: Alert and oriented x self, place, time, and settingNormal mood/affectDATA:Diagnostic tests reviewed for today's visit:Most recent labs and imaging results.Recent Labs 11/05/1799NA 140 142 143 -- 143K 5.2* 5.0 5.1 -- 5.0CHLOR 109* 109* 110* -- 110*CO2 19* 21* 21* 21* 19*BUN 60* 51* 38* -- 32*CREAT 4.74* 4.40* 2.97* -- 2.48*GLUC 97 109* 101* -- 102*ANION 12 12 12 -- 14CA 7.1* 7.1* 7.4* -- 8.1*P 6.7* -- -- -- 6.9*MG 2.2 -- -- -- 2.2Recent Labs 3 430WBC 13.68* 15.03* 15.97*HB 7.2* 6.4* 7.6*HCT 20.9* 18.7* 22.3*PLT 163 159 168Assessment/Plan57 year old male with h/o factor V leidin, s/p R TKA c/b pseudomonas UTIand right thigh abscess s/p multiple antibiotics c/b desquamating rashconcerning for DRESS vs SJS/TEN further c/b shock, DAYNA, transaminitis andRP bleed. Transferred to [facility] for furtther management.1. Oliguric AKIBaseline Cr <1Etiology likely 2/2 pre-renal vs ischemic ATN in the setting ofhypotension and RP bleed. Possibly AIN (peripheral eosinophilia at theOSH, no urine eos documented). He did get steroids at the OSH after allantibiotics were stopped. Cr was improving on transfer here but hasstarted worsening again likely from RP bleed and acute anemia.Intertestingly, the patient also had proteinuria with UPC 3 gm at the OSHon 10/31. Autoimmune work up sent at the OSH pending (daughter will try toget us the results).- may need dialysis if continues to oliguric with worsening solutes.2. Electrolytes: mild hyperkalemia3. Volume status:mild hypervolemia4. Acid-base: mild acidosisPLAN:- examine urinary sediment- christiano autoimmune work up from outside hospital- repeat UA and urine prot/cr ratio here.- Strict I/O's- Daily weights- Renal diet- Dose medications for eGFR <10 mL/minConsent for DIRECTOR CAREER:DIRECTOR CAREER initiation date: NASIGNATURE: Rosemary Trinidad MD PATIENT NAME: Hung AhumadaoneDATE: November 05, 2017 : 12:41 PM PAGER: [phone] STAFF PHYSICIAN NOTE OF PERSONAL INVOLVEMENT IN CAREI have reviewed the consult note obtained and documented by the fellow Rajinder personally participated in the madrigal components. I have discussed the caseand management of the patient's care. Additional comments revise orconfirm relevant madrigal components of the note.A/P:patient with acute rise in renal solutes and no history of renal disease.Situation discussed with his and family at bedside. He is alsohaving acute rise in liver function tests. Likely this is related toischemic ATN. Continued urine output. No need for dialysis now but willwatch closely. Discussed possibilities with the patient.[facility] [place], Nephrology and [id number] PMSeptember 2017 Normal [facility] Jaramillo CONSULT HNO ID: [id number] thor: ALHAJI Jeronimoervice: HepatologyAuthor Type: PhysicianType: ConsultsFiled: 11/06/2017 9:21 AMNote Text:Department of Gastroenterology AND HepatologyInitial Consult NoteDate of Service: November 05, 2017Patient: Hung PeckMedical Record: [id number] for Admission / Consultation: Opinion/Advice regarding abnormal LFTHepatology Attending: Hilton Ag MDImpression:Hung Peck is a 57 year old gentleman with history notable for VTEin the setting of F.V.Leiden defieciency on warfarin who underwent recent(R) TKR with post op course c/b (R) thigh abscess (08/2017) and concern forPJI prompting a re-exploration (not actually infected) as well aspseudomonal sepsis from urinary source discharged initially on vacomycin(rash and readmitted) then subsequent linezolid/doxycycline regimen thatwas discontinued after worsening of his desquamative rash, fever, andswelling of face / tongue / hands.Patient now transferred from [facility] for further management afterpresenting with above symptoms (10/28/17), and since found to be sufferingfrom DRESS currently on prednisone 40 mg Qd (improvement in rash /peripheral eosinophilia) but also with profound coagulopathy (INR > 19aPTT > 180 on arrival), large RP hematoma, Acute liver injury, andoliguric acute renal failure.Hepatology consult service asked to evaluate Mr. Peck regarding hisacute liver injury without encephalopathy.Etiology of acute liver injury likely multifactorial in the setting ofactive DRESS (Occurs in 87% of patients; predominantly cholestatic)compounded by shock liver (hypotensive requiring pressors for ~ 12 hours)in the background of possible Chronic Hepatitis C (Ab + on acute heppanel). Current R Value of 0.48 which is cholestatic in nature but basedoff labs at time of acute worsening in setting of hypotension / pressorsupport was close to 3 which is a mixed picture injury (consistent withabove).Recommendations:- -- Continue to follow CMP and PT/INR Qd - Bilirubin now likely largely driven by resorption of large hematoma. - Otherwise RUQ US without nodular contour, but cannot excludepossibility of underlying chronic liver disease.--- Regular neuro checks.--- Obtain dedicated imaging with MRCP--- Will follow with pending serologic evaluation (AFP, ASMA, AMA, IgG) - Would add DARIELA, Iron studies, and ceruloplasmin - Also check acute markers for HSV, CMV, EBV--- Agree with evaluation for coagulopathy (INR persistently elevateddespite days of FFP) - Consider mixing study as well due to prolonged aPTT - Vitamin K 10 mg IV Qd x 3 days - Defer further FFP unless active bleeding or plan for procedure--- If above evaluations unrevealing and hepatic function continues toworsen will consider TJLBx with pressure measurements.--- Maintain on prednisone for management of DRESS per dermatologyrecommendationsTh prashanth fernandes for allowing us to participate in the care of Mr. Peck lizzieann continue to follow along.Iam Link DO MEdGastroenterology and Hepatology FellowWill discuss with staff. Histo ry of Present Illness:Hung Peck is a 57 year old gentleman with history notable for VTEin the setting of F.V.Leiden defieciency on warfarin who underwent recent(R) TKR with post op course c/b (R) thigh abscess (08/2017) and concern forPJI prompting a re-exploration (not actually infected) as well aspseudomonal sepsis from urinary source discharged initially on vacomycin(rash and readmitted) then subsequent linezolid/doxycycline regimen thatwas discontinued after worsening of his desquamative rash, fever, andswelling of face / tongue / hands.Patient now transferred from [facility] after presenting with abovesymptoms (10/28/17), and since found to be suffering from DRESS currently onprednisone 40 mg Qd (improvement in rash / peripheral eosinophilia) butalso with profound coagulopathy (INR > 19 aPTT > 180 on arrival), large RPhematoma, Acute liver injury, and oliguric acute renal failure.With regards to GI / Liver history- Maybe 1-2 drinks a week- No IVDA- No tattoos- No incarceration- , monogomous relationship without high risk sexual behaviors.- 20+ years in with foreign travel- No PRBC transfusions prior to 1989- No recent travel- Denies any hx of GIB- Last colonoscopy within past few years. Stated normal.Evaluation at local hospital- [facility] US: Thickened gallblader, mild hepatomegaly with mild fattyinfiltration.- AST / ALT elevated on admission but taya to a peak of SAT/ALT 2034 / 863on 10/31- Alkaline phosphatase at that time was 553.- T. Bili has continued to rise.Pertinent Review of Systems:GENERAL: No weight loss, malaise or fevers., SEE HPINECK: Negative for lumps, goiter, pain and significant neck swellingRESPIRATORY: Negative for cough, wheezing or shortness of breath.CARDIOVASCULAR: See HPIGI: See HPIMUSCULOSKELETAL: Negative for joint pain or swelling, back pain or musclepain.HEMATOLOGY/LYMPHO LOGY Negative for prolonged bleeding, bruising easily orswollen nodes.ENDOCRINE: Negative for cold or heat intolerance, polyuria, polydipsia andgoiter.NEURO: No history of headaches, syncope, paralysis, seizures or tremorsAll other reviewed and negative other than HPI.Past Medical History:No past medical history on file.Past Surgical History:No past surgical history on file.Family History:No family history on file.Social History:Social History Marital status: Spouse name: Years of education: Number of children:Social History Main Topics Drug use: UnknownAllergies:ALLERGIESAl lergen Reactions- Linezolid Rash Concern of DRESS- Vancomycin Rash Concern of DRESSMedications:Prior to Admission Medications:No prescriptions on file.Current hospital medications:potassium chloride ER 40 mEq tab(s) (K-DUR, KLOR-CON) 40 mEq ORAL/FEEDINGTUBE q 2 H PRNmagnesium sulfate in water 4-6 g in sterile water 50 ml 4-6 g INTRAVENOUSPRNsodium phosphate 45 mmol in NaCl 0.9% 250 mL 45 mmol INTRAVENOUS PRN0.9% NaCl 3-5 mL 3-5 mL INTRAVENOUS q 12 H0.9% NaCl 10 mL 10 mL INTRAVENOUS q 12 H0.9% NaCl 20 mL 20 mL INTRAVENOUS PRNinsulin regular human injection (short acting) (NovoLIN R,HumuLIN R)SUBCUTANEOUS q 6 Hinsulin regular 250 units in NaCl 0.9% 250 mL iv infusion - ICU NOMOGRAM0.5-30 Units/hr INTRAVENOUS CONTINUOUSdextrose 50% in water 25-50 mL syringe 12.5-25 g INTRAVENOUS PRNdextrose 40 % 15 g 15 g ORAL PRNglucagon 1 mg injection (GLUCAGEN) 1 mg SUBCUTANEOUS PRNoxyCODONE IR 5-10 mg tab(s) (ROXICODONE) 5-10 mg ORAL/FEEDING TUBE q 4 HPRNHYDROmorphone 0.5-1 mg injection (DILAUDID) 0.5-1 mg INTRAVENOUS q 4 H PRNpantoprazole 40 mg injection (PROTONIX) 40 mg INTRAVENOUS DAILY (6 AM)methylPREDNISolone (MEDROL) tab(s) 40 mg 40 mg ORAL DAILYPhysical Exam:Vital Signs 900 11/05/1810BP: 128/68 132/73 124/61Pulse: 90 91 96Resp: 14 14 21Temp: 36.6 ?C (97.9 ?F)TempSrc: OralSpO2: 95% 96% 94%Weight:Height:Intake/Outp ut Summary (Last 24 hours) at 11/05/17 1237Last data filed at 11/05/17 0600 Gross per 24 hourIntake 1186 mlOutput 200 mlNet 986 mlVITAL SIGNS: BP 124/61 Pulse 96 Temp (Src) 97.9 (Oral) Resp 21 Ht6' 2 (1.88m) Wt 208 lb 5.4 oz (94.5kg) SpO2 94% BMI 26.74 kg/(m2).General appearance: well appearing, alert, in no acute distressSkin: Dry scaling rash across face, chest, shoulders and hands. Less soin LE bilaterallyEyes: Mildly icteric sclera.ENT: Mucous membranes dryNeck: SuppleLymph nodes: No Submandibular lymphadenopathy presentLungs: lungs clear to auscultation, no wheezing or rhonchiHeart: RRR without murmurAbdomen: Soft with mild tenderness throughout, without rebound orrigidityExtremities: Extremities normal.Musculoskeletal: Muscular strength grossly intactNeuro: CN2-12 grossly intactLabs:CBC, Coags, BMP, Mg, PhosRecent Labs 11/05/1799WBC 13.68* 15.03* 15.97* 16.13* 16.16* -- 12.91*HB 7.2* 6.4* 7.6* 5.9* 6.1* -- 8.1*HCT 20.9* 18.7* 22.3* 16.9* 17.4* -- 24.5*PLT 163 159 168 157 154 -- 122*INR -- 2.5* -- 2.4* 3.0* -- 2.5*APTT -- -- -- -- -- -- 40.7*NA 140 142 -- -- 143 -- 143K 5.2* 5.0 -- -- 5.1 -- 5.0CHLOR 109* 109* -- -- 110* -- 110*CO2 19* 21* -- -- 21* 21* 19*BUN 60* 51* -- -- 38* -- 32*CREAT 4.74* 4.40* -- -- 2.97* -- 2.48*GLUC 97 109* -- -- 101* -- 102*IC -- -- -- -- -- 1.18 --CA 7.1* 7.1* -- -- 7.4* -- 8.1*MG 2.2 -- -- -- -- -- 2.2P 6.7* -- -- -- -- -- 6.9*Liver Function, Amylase, AND LipaseRecent Labs 11/04/1808/13/995218 [id number] 6.6 -- 6.4 -- 6.5ALB 1.7* -- 1.7* -- 1.7*ALT 183* -- 256* -- 294*AST 104* -- 168* -- 208*ALKPHOS 735* -- 508* -- 424*TBILI 10.3* -- 11.0* -- 10.8*LACT -- 2.0 -- 4.7* 4.9*SIGNATURE: Iam Link DO PATIENT NAME: Hung CervantesATE: November 05, 2017 : 12:37 PM PAGER/CONTACT #: [phone] STAFF PHYSICIAN NOTE OF PERSONAL INVOLVEMENT IN CAREI have reviewed the consult note obtained and documented by the fellow Rajinder personally participated in the madrigal components. I have discussed the caseand management of the patient's care. The following comments revise orconfirm relevant madrigal components of their note.IMPRESSION: This is a 57 year old male who presents with Hx of Factor VLeiden Def (on warfarin), s/p Rt Total knee replacement with a complicatedpost op course due to Rt thigh abscess, UTI sepsis (pseudomonal) for whichhe was started on multiple Abx from which he developed DRESS. On steroid.Also noted the retroperitoneal hematoma. LVUS showed patent hepaticvasculature. Hepatology is consulted for evaluation of liver enzymesabnormalities which can be secondary to DILI (drug induced liver injury)vs DRESS.Agree with Vit K. blood work to check for other underlying liver disease.Hold on liver Bx as liver enzymes and Bili are trending down.[place] MD Normal [facility] Comp Metabolic Panelon 11-05 Albumin mass conc 1.7 g/dL Low 3.9-4.9 [facility] Comment on above: Performed By: #### P T, PTT, LACT, CMP, MG1, PHOS, CBCDIF ####[facility] [address] [place], [place] [phone] ALP enzyme act/vol 735 U/L High 36-108 [facility] Comment on above: Performed By: #### P T, PTT, LACT, CMP, MG1, PHOS, CBCDIF ####[place] [phone] ALT enzyme act/vol 183 U/L High 10-54 [facility] Comment on above: Performed By: #### P T, PTT, LACT, CMP, MG1, PHOS, CBCDIF ####[place] [phone] Anion gap 3 molar conc 12 mmol/L Normal 9-18 Cl [facility] Comment on above: Performed By: #### P T, PTT, LACT, CMP, MG1, PHOS, CBCDIF ####[place] [phone] AST enzyme act/vol 104 U/L High 14-40 [facility] Comment on above: Performed By: #### P T, PTT, LACT, CMP, MG1, PHOS, CBCDIF ####[place] [phone] Bilirubin mass conc 10.3 mg/dL High 0.2-1.3 [facility] Comment on above: Performed By: #### P T, PTT, LACT, CMP, MG1, PHOS, CBCDIF ####[place] [phone] Calcium mass conc 7.1 mg/dL Low 8.5-10.2 [facility] Comment on above: Performed By: #### P T, PTT, LACT, CMP, MG1, PHOS, CBCDIF ####[place] [phone] Chloride molar conc 109 mmol/L High 97-105 [facility] Comment on above: Performed By: #### P T, PTT, LACT, CMP, MG1, PHOS, CBCDIF ####[facility] [address]CSan [address], [place] [phone] CO2 molar conc 21 mmol/L Low 22-30 [facility] Comment on above: Performed By: #### P T, PTT, LACT, CMP, MG1, PHOS, CBCDIF ####[facility]CS[address], [place] [phone] Creatinine mass conc 4.40 mg/dL High 0.73-1.22 [facility] Comment on above: Performed By: #### P T, PTT, LACT, CMP, MG1, PHOS, CBCDIF ####[facility]CS[address], [place] [phone] eGFR- Amer. 17 [facility] Comment on above: Performed By: #### P T, PTT, LACT, CMP, MG1, PHOS, CBCDIF ####[facility] [address]CSan [place]andro, [place] [phone] GFR/1.73 sq M predicted among non-blacks MDRD vol rate/area (S/P/Bld) 14 . Normal [facility] Comment on above: Result Comment: eGFR (Estimated GFR) Units of measure: mL/min/1.73 meters squaredeGFR is derived from the reexpressed MDRD Study equation using the following parameters: serum creatinine, age, gender and race. The creatinine assay has been calibrated to be traceable to IDMS.An eGFR <60 mL/min/1.73m2 for >3 months is consistent with chronic kidney disease. Refer to KDOQI guidelines for clinical interpretation.In patients with unstable renal function, e.g. those with acute kidney injury, the eGFR may not accurately reflect actual GFR. Performed By: #### P T, PTT, LACT, CMP, MG1, PHOS, CBCDIF ####[facility] [address]CS[address], [place] [phone] Glucose mass conc 109 mg/dL High 74-99 [facility] Comment on above: Result Comment: The [place] Diabetes Association (ADA) provides guidance for cutoff values for fasting glucose and random glucose. The ADA defines fasting as no caloric intake for at least 8 hours. Fasting plasma glucose results between 100 to 125 mg/dL indicate increased risk for diabetes (prediabetes).Fasting plasma glucose results greater than or equal to 126 mg/dL meet the criteria for diagnosis of diabetes. In the absence of unequivocal hyperglycemia, results should be confirmed by repeat testing. In a patient with classic symptoms of hyperglycemia or hyperglycemic crisis, random plasma glucose results greater than or equal to 200 mg/dL meet the criteria for diagnosis of diabetes.Reference: Standards of Medical Care in Diabetes 2016, [place] Diabetes Association. Diabetes Care. 2016.39(Suppl 1). Performed By: #### P T, PTT, LACT, CMP, MG1, PHOS, CBCDIF ####[address] [phone] Potassium molar conc 5.0 mmol/L Normal 3.7-5.1 [facility] Comment on above: Performed By: #### P T, PTT, LACT, CMP, MG1, PHOS, CBCDIF ####[address] [phone] Protein mass conc 6.6 g/dL Normal 6.3-8.0 [facility] Comment on above: Performed By: #### P T, PTT, LACT, CMP, MG1, PHOS, CBCDIF ####[address] [phone] Sodium molar conc 142 mmol/L Normal 136-144 [facility] Comment on above: Performed By: #### P T, PTT, LACT, CMP, MG1, PHOS, CBCDIF ####[address] [phone] Urea nitrogen mass conc 51 mg/dL High 9-24 [facility] Comment on above: Performed By: #### P T, PTT, LACT, CMP, MG1, PHOS, CBCDIF ####[address], [place] [phone] Magnesiumon 11-05-2017 Magnesium mass conc 2.2 mg/dL Normal 1.7-2.3 [facility] Comment on above: Performed By: #### P T, PTT, LACT, CMP, MG1, PHOS, CBCDIF ####[facility] [address] [place], [place] [phone] PROGRESSon 11-05-2017 Protein mass conc HNO ID: [id number] thor: Julisa (Potato Peeler) Jonaervice: Critical CareAuthor Type: Nurse PractitionerType: Progress NotesFiled: 11/05/2017 12:52 PMNote Text:SERVICE DATE: 11/05/2017SERVICE TIME: 12:52 PMMICU PROGRESS NOTEAdmission Date: 11/03/2017Hospital Day # 2HPISUBJECTIVEInterval Events: No ChangeOBJECTIVEVital Signs (last filed) Range in last 24hTemp: 36.6 ?C (97.9 ?F) (11/05/17 1200) Temp Min: 36.3 ?C (97.3 ?F) Max:36.8 ?C (98.2 ?F)Pulse: 96 (11/05/17 1100) Pulse Min: 85 Max: 96Resp: 21 (11/05/17 1100) Resp Min: 14 Max: 27BP: 124/61 (11/05/17 1100) BP Min: 113/63 Max: 135/73MAP Non Invasive (Mean Arterial Pressure): 84 (11/05/17 1100) MAP NonInvasive (Mean Arterial Pressure) Min: 80 Max: 98 No Data RecordedSpO2: 94 % (11/05/17 1100) SpO2 Min: 94 % Max: 97 %Pain Score: 0/10 (11/05/17 0800)Fluid Balance:Intake/Output Summary (Last 24 hours) at 11/05/17 0659Last data filed at 11/05/17 0600 Gross per 24 hourIntake 2417 mlOutput 200 mlNet 2217 mlLast Weight: 94.5 kg (208 lb 5.4 oz) (11/04/17 0600)Admit Weight: 94.9 kg (209 lb 3.5 oz) (11/03/17 1407)DIET LIQUIDLines, Drains, and Airways Line Central Line Single Lumen 09/20/17 Peripherally Inserted (PICC) Right Arm46 daysVent/Oxygen: Supplemental Oxygen: NoNo Data RecordedPhysical Examination PerformedOral Mucosa: Moist mucous membranesEyes: PERRLCardiovascular: Regular rhythmRespiratory: Clear to auscultationAbdomen: Soft, Tender and Positive bowel soundsExtremities: Edema- Yes Peripheral Pulses- Present all extremitiesCapillary Refill- less than 3 secondsNeurologic: Awake, oriented, Alert, Follows commands and Moving allextremitiesInfusion Medicationsinsulin regularDiagnostic tests reviewed today: Most recent labs and imaging results.PATIENT CHECKLIST? Are restraints necessary: No? Deep vein thrombosis prophylaxis administered? No. Contraindicated.? Stress ulcer prophylaxis? Yes? Nasogastric tube? No? Morejon catheter necessary? No? Is central line essential? No? Plan discussed with assigned RN? Yes? Family updated within last 24 hours? YesCARE COORDINATION:Patient Summary:57 year old male with PMHx of Factor V Leiden c/b DVT and PE on Coumadinand Right Total Knee Replacement 07/2017 who was transferred from an OSHd/t concern for DRESS vs SJS/TEN and RP bleed in the setting of elevatedINR (19.5 on admission to OSH ED).Major Interval Events:11/03: Admitted to MICU from OSH for RP bleed11/04: Hgb drop, transfused 1 PRBC, 2 FFP.11/05: Hgb fell to 6.4 overnight, transfused 1 unit PRBC.Dispo:? Full code? Monitor in MICUASSESSMENT AND PLANOverview, Assessment AND Plan, all Hosp ProblemsActive Hospital Problems as of 11/05/2017 Noted - Resolved Gastrointestinal Hepatitis 11/03/2017 - Present Current Assessment AND Plan Assessment: ? Secondary to DRESS. US (11/01) thickened GB wall with asmall amt of pericholecystic fluid. Mild hepatomegaly with with mild fattyinfiltration. Evaluated by surg at OSH with no recommended intervention.- transaminase trending down, acute hep panel significant for previous Bexposure, US with appropriate flow, no biliary dilation, non-specific GBwall thickeningPLAN:? Trend LFTs? AI work up? Consult Hepatology Mild protein-calorie malnutrition (HCC) 11/04/2017 - Present Current Assessment AND Plan PLAN:? Full liquid diet - Advance as appropriate Retroperitoneal bleed 11/03/2017 - Present Current Assessment AND Plan Assessment: OSH CT A/P (11/03) with RP bleed in setting ofsupratherapeutic INR- INR on admission to OSH 10/28 >19.5. S/p 3 units of FFP- INR on 11/03 prior to transfer 7.4 received 2 units of FPP- 1 PRBC, 2 FFP overnightPLAN:? Trend HGB, repeat low this AM will transfuse 2 U PRBC? Correct coagulopathy? Send TEG? IR consulted, will discuss re-evaluation if does not respond totransfusion Nephrology DAYNA (acute kidney injury) ([facility]) 11/03/2017 - Present Current Assessment AND Plan Assessment: Nonoliguric DAYNA/ATN secondary to hemodynamic instability vsDRESS syndrome.Normal SCr at baseline. SCr peaked at OSH (10/30) at 2.7PLAN:? Closely monitor UOP, SCr AND lytes? Avoid Nephrotoxic agents? Renally dose meds? Consult Nephrology Hematology Anemia due to blood loss 11/03/2017 - Present Current Assessment AND Plan Assessment: Secondary to RP bleedPLAN:? Trend CBC. Blood product support as needed. Coagulopathy ([facility]) 11/04/2017 - Present Current Assessment AND Plan PLAN:? Trend? Correct as indicated Factor V Leiden ([facility]) 11/03/2017 - Present Current Assessment AND Plan Assessment: H/o Factor V Leiden with h/o PE/DVT on coumadin.Supratherapetic INR of 19 on presentation to OSH 10/28.PLAN:? Holding anticoagulation in setting of supratherapeutic INR and anemia? Correct coagulopathy given new RP bleed? Send repeat TEG Supratherapeutic INR 11/03/2017 - Present Current Assessment AND Plan Assessment: S/p vitamin K and 5 units FFP at OSH. Persistentsupratherapeutic INR thought to be secondary to liver dysfunctionPLAN:? Trend INR? Correct coagulopathy? Send TEG Dermatology Drug induced rash with eosinophilia and systemic symptoms 11/03/2017 -Present Current Assessment AND Plan Assessment: Suspected DRESS at OSH with fever, desquamating rash,peripheral eosinophilia, DAYNA, hepatitis in setting of vanco therapy in08/2017 for thigh abscessPLAN:? Supportive management? Methylprednisolone 40 mg daily - Taper by 10 mg q10 days per Derm recs? Appreciate Derm recsMedication and Non-Pharmacologic VTE Prophylaxis/Ofyqyoxgatxdbk42 /14/18 1615 activity - mobilize patient (ri,oh)11/03/17 1445 vte pharmacologic prophylaxis contraindicated (ri,oh)11/03/17 1445 pneumatic compression stockings (ri,oh)11/03/17 1445 activity - mobilize patient (ri,vt)VTE Prophylaxis: VTE prophylaxis appropriatePlan of care discussed with: Attending and ICU TeamSIGNATURE: Julisa Dougherty APRN.[employer] DEMONSTRATOR PATIENT NAME: Hung AhumadaoneDATE: November 05, 2017 : 12:52 PM PAGER/CONTACT #: [phone] Normal [facility] Protein mass conc HNO ID: [id number] thor: Nichelle PattenkService: Pulmonary DiseaseAuthor Type: PhysicianType: Progress NotesFiled: 11/05/2017 4:57 PMNote Text:[facility] STAFF PHYSICIAN NOTE OF PERSONAL INVOLVEMENT IN CAREI have reviewed the progress note obtained and documented by the nursepractitioner and I personally participated in the madrigal components. I havediscussed the case and management of the patient's care. The followingcomments revise or confirm relevant madrigal components of the note.IMPRESSION:Mr. Peck is a 57 year old White male with PMHx of Factor V Leiden c/b DVT and PE on Coumadin and Right TotalKnee Replacement 07/2017 who was transferred from an OSH d/t concern forDRESS and RP bleed in the setting of elevated INR (19.5 on admission [facility] ED).Currently:Awake, alertOn room airBP 132/73 Pulse 91 Temp 36.3 ?C (97.3 ?F) (Oral) Resp 14 Ht188 cm (6' 2) Wt 94.5 kg (208 lb 5.4 oz) SpO2 96% BMI 26.75kg/m?No pressorsCBC, Coags, BMP, Mg, PhosRecent Labs 11/05/17993211/03/1813WBC 13.68* 15.03* 15.97* 16.13* 16.16* -- 12.91*HB 7.2* 6.4* 7.6* 5.9* 6.1* -- 8.1*HCT 20.9* 18.7* 22.3* 16.9* 17.4* -- 24.5*PLT 163 159 168 157 154 -- 122*INR -- 2.5* -- 2.4* 3.0* -- 2.5*APTT -- -- -- -- -- -- 40.7*NA 140 142 -- -- 143 -- 143K 5.2* 5.0 -- -- 5.1 -- 5.0CHLOR 109* 109* -- -- 110* -- 110*CO2 19* 21* -- -- 21* 21* 19*BUN 60* 51* -- -- 38* -- 32*CREAT 4.74* 4.40* -- -- 2.97* -- 2.48*GLUC 97 109* -- -- 101* -- 102*IC -- -- -- -- -- 1.18 --CA 7.1* 7.1* -- -- 7.4* -- 8.1*MG 2.2 -- -- -- -- -- 2.2P 6.7* -- -- -- -- -- 6.9*A:(J96.01) Acute respiratory failure with hypoxia (HCC)(N17.9) DAYNA (acute kidney injury) (HCC)(R94.5) Elevated LFTs(D68.51) Factor V Leiden (HCC)(R58) Retroperitoneal bleed(R79.1) Supratherapeutic INRPLAN:Watch INR, correctWatch hh, transfuse as neededWatch liver enzymesHepatology consultWatch kidney functionConsider renal consultThis patient has a high probability of sudden, clinically significantdeterioration, which requires the highest level of physician preparednessto intervene urgently. I managed/supervised life or organ supportinginterventions that required frequent physician assessment. I devoted myfull attention to the direct care of this patient for the amount of timeindicated below. Time I spent with family or surrogate(s) is includedonly if the patient was incapable of providing the necessary informationor participating in medical decision making. Time devoted to teaching andto any procedures I billed separately is not included.Critical Care Documentation: The patient has the following organ/systemimpairment(s): Complex life-threatening medical problem(s)Time spent providing critical care services: 40 minutes.Nichelle Ruiz MD Normal [facility] Phosphoruson 11-05-2017 Phosphate mass conc 6.7 mg/dL High 2.7-4.8 [facility] Comment on above: Performed By: #### P T, PTT, LACT, CMP, MG1, PHOS, CBCDIF ####[facility] [place], [place] [phone] Protimeon 11-05-2017 INR Coag RelTime (Bld) 2.5 {INR} High 0.9-1.3 [facility] Comment on above: Result Comment: Nini min K Antagonist (VKA) Therapeutic Range: INR 2 to 3 (Target INR of 2.5)Note: For patients treated with VKA drugs, such as warfarin, the [place] [employer] 2012 Guideline recommends a therapeutic INR range of 2 to 3 (target INR of 2.5). This recommendation includes high-risk patients with antiphospholipid syndrome with previous arterial or venous thromboembolism, current-generation mechanical or bioprosthetic aortic heart valve replacement.Note: Patients with mechanical aortic valve replacement and additional risk factors for thromboembolic events (atrial fibrillation, previous thromboembolism, LV dysfunction, hypercoagulable conditions) or an older generation mechanical AVR (i.e., ball in-Cage) or any mechanical MVR should have a INR therapeutic range of 2.5 to 3.5 (target INR of 3).Raghav GH, et al. Chest 2012, 141:7S-47SNishimura RA, et al. [facility] 2017, 70: 252-289 Performed By: #### P T, PTT, LACT, CMP, MG1, PHOS, CBCDIF ####[facility] [address] [place], [place] [phone] PT Sec 25.1 sec High 9.7-13.0 [facility] Comment on above: Performed By: #### P T, PTT, LACT, CMP, MG1, PHOS, CBCDIF ####[facility] [place], [place] [phone] Thrombograph Hepaseon 2017 Coagulation Ind(Hep) 1 Normal [facility] Comment on above: Result Comment: (NOT E)Reference Range: NEG 4 to 2The Coagulation Index, a secondary parameter, is labeled bythe insurance case manager as for research use only and is used perthe insurance case manager's instructions. Its performancecharacteristics were determined by [facility]'s [facility] [place] [facility] consistent with CLIA requirements. This test has notbeen cleared by the U.S. Food and Drug Administration. Performed By: #### T EGHPP ####[place] [id number] [place], [place] [phone] Degree Angle (Hep) 74.4 deg High 47.0-74.0 [facility] Comment on above: Performed By: #### T EGHPP ####[facility] [place], [place] [phone] Lysis Time 30 (Hep) 4.9 % Normal 0.0-5.0 [facility] Comment on above: Performed By: #### T EGHPP ####[facility], [place] [phone] Maximum Amplit (Hep) 63.7 mm Normal 51.0-69.0 [facility] Comment on above: Performed By: #### T EGHPP ####[place] [address]CSan [place], [place] [phone] R Value (Hep) 6.8 min Normal 4.0-10.0 [facility] Comment on above: Performed By: #### T EGHPP ####[facility]CS[address], [place] [phone] Thrombograph Int(Hep) (NOTE) Normal [facility] Comment on above: Result Comment: Perf orming Pathologist: Ignacia Galeano M.D., Ph.D.Abnormal - see comment below. A thromboelastograph (TEG) study was performed usingcitrate-anticoagulated whole blood treated with heparinase toneutralize a heparin effect. The R value, a measure of coagulationfunction, is within the normal range. This indicates normalcoagulation function. The Maximal Amplitude (MA), a measure ofplatelet function, is within the normal range. The Angle, a measureof fibrinogen function, is increased. This is indicative of increasedfibrinogen concentration or function. The Ly30, a measure offibrinolysis function, is normal. This is indicative of normalfibrinolytic function. The Coagulation Index (CI), a measure ofhemostasis function, is within the normal range. The CI is acalculated parameter based on the other TEG results. Performed By: #### T EGHPP ####[place] [phone] Urinalysis with Microscopico n 11-05-2017 Bilirubin, Urine Negative Normal Negative [facility] Comment on above: Performed By: #### P T, PTT, LACT, CMP, MG1, PHOS, CBCDIF ####[place] [phone] Clarity Cloudy Critically abnormal Clear [facility] Comment on above: Performed By: #### P T, PTT, LACT, CMP, MG1, PHOS, CBCDIF ####[place] [phone] Color Senia Critically abnormal Yellow [facility] Comment on above: Performed By: #### P T, PTT, LACT, CMP, MG1, PHOS, CBCDIF ####[address] [phone] Comments SEE COMMENT Normal [facility] Comment on above: Result Comment: N/A Performed By: #### P T, PTT, LACT, CMP, MG1, PHOS, CBCDIF ####[facility], [place] [phone] Epithelial Cells SEE COMMENT Normal [facility] Comment on above: Result Comment: FewS quamous Epithelial Cells Performed By: #### P T, PTT, LACT, CMP, MG1, PHOS, CBCDIF ####[facility] [phone] Glucose Ql (U) Negative Normal Negative [facility] Comment on above: Performed By: #### P T, PTT, LACT, CMP, MG1, PHOS, CBCDIF ####[place] [address] [place] [phone] Hemoglobin/Blood,Ur 2+ Critically abnormal Negative [facility] Comment on above: Performed By: #### P T, PTT, LACT, CMP, MG1, PHOS, CBCDIF ####[facility] [phone] INR Coag RelTime (Bld) {INR} Criticall y abnormal 0-3 [facility] Comment on above: Performed By: #### P T, PTT, LACT, CMP, MG1, PHOS, CBCDIF ####[facility] [place] [phone] Ketones Ql (U) Negative Normal Negative [facility] Comment on above: Performed By: #### P T, PTT, LACT, CMP, MG1, PHOS, CBCDIF ####[facility], [place] [phone] Leukest 1+ Critically abnormal Negative [facility] Comment on above: Performed By: #### P T, PTT, LACT, CMP, MG1, PHOS, CBCDIF ####[facility] [place], [place] [phone] Nitrites Negative Normal Negative [facility] Comment on above: Performed By: #### P T, PTT, LACT, CMP, MG1, PHOS, CBCDIF ####[address] [phone] pH 6.0 Normal 4.5-8.0 [facility] Comment on above: Performed By: #### P T, PTT, LACT, CMP, MG1, PHOS, CBCDIF ####[address] [phone] Protein, Urine 30 mg/dL Critically abnormal Negative [facility] Comment on above: Performed By: #### P T, PTT, LACT, CMP, MG1, PHOS, CBCDIF ####[place] [phone] Specific [place], Ur 1.012 Normal 1.005-1 .03 0 [facility] Comment on above: Performed By: #### P T, PTT, LACT, CMP, MG1, PHOS, CBCDIF ####[place] [phone] Urine Jabier Comment SEE COMMENT Normal [facility] Comment on above: Result Comment: N/A Performed By: #### P T, PTT, LACT, CMP, MG1, PHOS, CBCDIF ####[place] [phone] Urobilinogen Normal Normal Normal [facility] Comment on above: Performed By: #### P T, PTT, LACT, CMP, MG1, PHOS, CBCDIF ####[address] [phone] WBC 11-25 Critically abnormal 0-5 [facility] Comment on above: Performed By: #### P T, PTT, LACT, CMP, MG1, PHOS, CBCDIF ####[address] [phone] Yeast Few Critically abnormal 0 [facility] Comment on above: Result Comment: Budd ing Yeast Performed By: #### P T, PTT, LACT, CMP, MG1, PHOS, CBCDIF ####[facility] [address] [place], [place] [phone] AFPon 11-04-2017 AFP 45.9 ng/mL High <11 [facility] Comment on above: Performed By: #### P T, PTT, LACT, CMP, MG1, PHOS, CBCDIF ####[facility] [address] [place], [place] [phone] CASE MGT INIT ASSESon 2017 CASE MGT INIT ASSES HNO ID: [id number] thor: Uyen (Rn) Oren RNService: Case ManagementAuthor Type: Registered NurseType: Care Mgt Initial AssessmentFiled: 11/04/2017 2:26 PMNote Text:CARE MANAGEMENT: ASSESSMENT AND DISCHARGE PLANSERVICE DATE: 11/04/2017SERVICE TIME: 2:16 PMPRIMARY CARE PHYSICIAN:Dc Glez, [facility]OSPITALhone: [phone] STATUS: InpatientNeeds Prior to Discharge: To Be DeterminedMEDICAL:Patient/Re presentative Stated Goals:To improve my functional statusHealth Insurance: [facility] TownWizardCROSSROADS BE[facility] HE[facility] PLUSMedical [place] ServicesHealth Issues Impacting Discharge Plan: Retroperitoneal BleedLast Admission Date: noneIs this Within the Past 30 days? YesIs This a Planned Readmission? No: New symptoms of underlying diseaseFollowed Up with Appointment Prior to Admission: No appointment scheduledWhere Did the Patient Come From? HomeIntervention Taken to Avoid Future Readmission? .Advance Directive:Current Advance Directive: NoneCare Shower Room Attendant Attempted to Assist with AD Completion: YesAction: Patient UnwillingHealth Literacy:1. How often do you need to have someone help you when you readinstructions, pamphlets, or other written material from your doctor orpharmacy? Never - 12. How confident are you filling out medical forms by yourself? Extremely- 1If Patient scores > 3 on either question, the following interventions wereput into place:Use of plain language and active listening with Patient and familyFUNCTIONAL AND COGNITIVE/BEHAVIORALPRIOR TO ADMISSION:Baseline Mental Status: Alert AND Oriented, Person, Place , Time andSituationFunctional Status: IndependentDoes Patient Currently Receive Any Community Services or Home Care? NoneEquipment Prior to Admission: Cane - Terrell the Patient Been in a Chcf Facility in the Past 30 days? NoSOCIAL:Living Arrangement: HomeLives With: SpouseFinancial Resources: DisabledPrimary Contact: Extended Emergency Contact InformationPrimary Emergency Contact: Gregg Jules Iixfkemf: DaughterSupportive: YesOther Important Patient Contacts: NoneCaregiver Assessment:Caregiver is ready, willing and able to meet the patient's needs asrecommended by the inter-professional team? YesPatient's transition needs and plan for meeting these needs: Family willassist with needs.Does the patient have an acute stroke diagnosis, or has the patient had astroke during this admission? NoMedication Adherence:I am convinced of the importance of my prescription medication: Agreecompletely - 0I worry that my prescription medication will do more harm than good to meDisagree completely - 0I feel financially burdened by my abk-fl-uwfvby expenses for myprescription medication: Agree somewhat - 0Patient is categorized as low risk < 2Are you interested in bedside delivery of your medications? NoFood Concerns:In the Last Month, Have You had Trouble Getting Food? No trouble gettingfoodDuring the Last Month, Have You Worried Whether Your Food Would Run OutBefore You Had Enough Money to Buy More? NoIs the Patient Psychosocially Complex? NoASSESSMENT AND PLAN:Medical Needs: 2 or more chronic diseasesPsychosocial Needs: NoneFREEDOM OF CHOICE EXPLAINED:Yes [place] of Choice process explainedPOTENTIAL TRANSITION PLANSTo Be DeterminedInitial assessment completed at bedside. Role of Case Management andFreedom of Choice process explained. Pt AANDOx3 here for retroperitonealbleed. Pt reports living home with spouse. [facility]. If SNF isordered pt [facility]. D/C needs and date TBD. CaseManagement will follow for post hospital needs.SIGNATURE: Uyen Lott RN PATIENT NAME: Hung AhumadaoneDATE: November 04, 2017 : 2:16 PM PAGER/CONTACT #: [phone] Normal [facility] CBCon 11-04-2017 Absolute nRBC 0.15 k/uL High <0.01 [facility] Comment on above: Performed By: #### P T, PTT, LACT, CMP, MG1, PHOS, CBCDIF ####[facility] [place], [place] [phone] Erythrocyte distribution width Auto Ratio (RBC) 17.2 % High 11.5-15.0 [facility] Comment on above: Performed By: #### P T, PTT, LACT, CMP, MG1, PHOS, CBCDIF ####[place] [address] [place], [place] [phone] Hematocrit Auto Volume Fraction (Bld) 16.9 % Low 39.0-51.0 [facility] Comment on above: Performed By: #### P T, PTT, LACT, CMP, MG1, PHOS, CBCDIF ####[facility] [place], [place] [phone] Hemoglobin mass conc (Bld) 5.9 g/dL Critically low 13.0-17.0 [facility] Comment on above: Result Comment: Resu lt checked and verifiedNo clot detected.Called to and read back by:Leana [phone] Lizzie Performed By: #### P T, PTT, LACT, CMP, MG1, PHOS, CBCDIF ####[facility] [place], [place] [phone] MCH Auto Entitic mass (RBC) 29.8 pG Normal 26.0-34.0 [facility] Comment on above: Performed By: #### P T, PTT, LACT, CMP, MG1, PHOS, CBCDIF ####[facility]ClevelWharton, [place] [phone] MCHC Auto mass conc (RBC) 34.9 g/dL Normal 30.5-36.0 [facility] Comment on above: Performed By: #### P T, PTT, LACT, CMP, MG1, PHOS, CBCDIF ####[place] [address] [place], [place] [phone] Platelet mean volume Auto Entitic volume (Bld) 11.3 fL Normal 9.0-12.7 [facility] Comment on above: Performed By: #### P T, PTT, LACT, CMP, MG1, PHOS, CBCDIF ####[address], [place] [phone] Platelets Auto #/vol (Bld) 157 10*3/uL Normal 150-400 [facility] Comment on above: Performed By: #### P T, PTT, LACT, CMP, MG1, PHOS, CBCDIF ####[address], [place] [phone] RBC Auto #/vol (Bld) 1.98 10*6/uL Low 4.20-6.00 Cl [facility] Comment on above: Performed By: #### P T, PTT, LACT, CMP, MG1, PHOS, CBCDIF ####[address], [place] [phone] WBC Auto #/vol (Bld) 16.13 10*3/uL High 3.70-11.00 C [facility] Comment on above: Performed By: #### P T, PTT, LACT, CMP, MG1, PHOS, CBCDIF ####[address], [place] [phone] Absolute nRBC 0.04 k/uL High <0.01 [facility] Comment on above: Performed By: #### P T, PTT, LACT, CMP, MG1, PHOS, CBCDIF ####[address] [place], [place] [phone] Erythrocyte distribution width Auto Ratio (RBC) 17.4 % High 11.5-15.0 [facility] Comment on above: Performed By: #### P T, PTT, LACT, CMP, MG1, PHOS, CBCDIF ####[place] [phone] Hematocrit Auto Volume Fraction (Bld) 17.4 % Low 39.0-51.0 [facility] Comment on above: Performed By: #### P T, PTT, LACT, CMP, MG1, PHOS, CBCDIF ####[place] [phone] Hemoglobin mass conc (Bld) 6.1 g/dL Low 13.0-17.0 [facility] Comment on above: Performed By: #### P T, PTT, LACT, CMP, MG1, PHOS, CBCDIF ####[place] [phone] MCH Auto Entitic mass (RBC) 29.0 pG Normal 26.0-34.0 [facility] Comment on above: Performed By: #### P T, PTT, LACT, CMP, MG1, PHOS, CBCDIF ####[place] [phone] MCHC Auto mass conc (RBC) 35.1 g/dL Normal 30.5-36.0 [facility] Comment on above: Performed By: #### P T, PTT, LACT, CMP, MG1, PHOS, CBCDIF ####[place] [phone] MCV Auto Entitic volume (RBC) 82.9 fL Normal 80.0-100.0 [facility] Comment on above: Performed By: #### P T, PTT, LACT, CMP, MG1, PHOS, CBCDIF ####[place] [phone] Platelet mean volume Auto Entitic volume (Bld) 11.6 fL Normal 9.0-12.7 [facility] Comment on above: Performed By: #### P T, PTT, LACT, CMP, MG1, PHOS, CBCDIF ####[facility] [place], [place] [phone] Platelets Auto #/vol (Bld) 154 10*3/uL Normal 150-400 [facility] Comment on above: Performed By: #### P T, PTT, LACT, CMP, MG1, PHOS, CBCDIF ####[place] [address] [place], [place] [phone] RBC Auto #/vol (Bld) 2.10 10*6/uL Low 4.20-6.00 Cl [facility] Comment on above: Performed By: #### P T, PTT, LACT, CMP, MG1, PHOS, CBCDIF ####[place] [address] [place], [place] [phone] WBC Auto #/vol (Bld) 16.16 10*3/uL High 3.70-11.00 C [facility] Comment on above: Performed By: #### P T, PTT, LACT, CMP, MG1, PHOS, CBCDIF ####[facility] [place], [place] [phone] CONSULTon 11-04-2017 CONSULT HNO ID: [id number] thor: Trip (Becca) BealService: DermatologyAuthor Type: ResidentType: ConsultsFiled: 11/04/2017 3:54 PMNote Text: -Attestation signed by Jo Chambers at 11/04/2017 4:55 PMI have seen and examined Mr. Peck. I have discussed the case and themanagement of this patient's care with Dr. Russell. I also have reviewed and agreewith the assessment and plan as stated aboveand agree with all of its relevantcomponents.Jo Chambers MD DE RMATOLOGY HISTORY AND PHYSICAL EXAMINATIONCHIEF COMPLAINT: DRESSREQUESTING SERVICE: [facility]ITALUHPI:57 YOM w/ PMH: Factor V Leiden c/b DVT and PE on coumadin [facility] and DRESS syndrome.D/w patients daughter who is an ABATTOIR SUPERVISOR.Patient had R total knee replacement 07/2017 c/b Pseudomonas UTI infection08/2017. Pt had reexploration 08/2017 d/t concern of joint infection, whichwas negative. Did find right thigh abscess - all cultures negative. Pt w/tx w/ vanco AND ceftriaxone.OSH admitted 09/2017 w/ fever AND rash, concern for vanco allergy. Abxchanged to Zyvox AND Doxycycline PO AND patient was discharged. Rash worsened,Zyvox d/c'ed 10/19 d/t concern of SJS. Patient continued on PO Doxycycline.10/28 presented to OSH w/ lethargy, swollen hands, face, tongue; fever. INR19.5 in ED as well as transaminitis.CT of the right lower extremity: demonstrated again a concern for abscess.Pt started on doxycyline and Zosyn.Pt was hypotensive, received IVF, and pressors -> admitted to MICU. Ptkept on Linezolid AND doxy. All cultures neg. Developed desquamating rashconcerning for DRESS vs SJS. Pt's abx stopped and he was started on IVmethylpred 40mg daily.Transaminitis peaked 10/31, AST 2034/ ALT 863/ Alk Phos 553 and Cr peakedat 2.57.CT Abdomen/pelvis 11/03 concern for R/P bleed. Hb 5.4, tx w/ 2U PRBC and 2FFPOn transfer patient hemodynamically stable, required some O2.Results for HUNG PECK ( ) as of 11/03/2017 18:17 Ref. Range 11/03/2017 14:37Sodium Latest Ref Range: 136 - 144 mmol/L 143Potassium Latest Ref Range: 3.7 - 5.1 mmol/L 5.0Chloride Latest Ref Range: 97 - 105 mmol/L 110 (H)CO2 Latest Ref Range: 22 - 30 mmol/L 19 (L)BUN Latest Ref Range: 9 - 24 mg/dL 32 (H)Creatinine Latest Ref Range: 0.73 - 1.22 mg/dL 2.48 (H)Glucose Latest Ref Range: 74 - 99 mg/dL 102 (H)Protein, Total Latest Ref Range: 6.3 - 8.0 g/dL 6.5Calcium Latest Ref Range: 8.5 - 10.2 mg/dL 8.1 (L)Magnesium Latest Ref Range: 1.7 - 2.3 mg/dL 2.2Phosphorus Latest Ref Range: 2.7 - 4.8 mg/dL 6.9 (H)Albumin Latest Ref Range: 3.9 - 4.9 g/dL 1.7 (L)Bilirubin, Total Latest Ref Range: 0.2 - 1.3 mg/dL 10.8 (H)Alkaline Phosphatase Latest Ref Range: 36 - 108 U/L 424 (H)ALT Latest Ref Range: 10 - 54 U/L 294 (H)AST Latest Ref Range: 14 - 40 U/L 208 (H)Anion Gap Latest Ref Range: 9 - 18 mmol/L 14eGFR- Unknown 33eGFR-All Other Races Latest Units: . 27Hematocrit Latest Ref Range: 39.0 - 51.0 % 24.5 (L)Lactate Latest Ref Range: 0.5 - 2.2 mmol/L 4.9 (H)PAST MEDICAL HISTORY: No past medical history on file.PAST SURGICAL HISTORY: No past surgical history on file.FAMILY HISTORY: No family history on file.SOCIAL HISTORY:Social HistorySubstance Use Topics- Smoking status: Not on file- Smokeless tobacco: Not on file- Alcohol use Not on fileMEDICATIONS:Prior to Admission Medications:No prescriptions on file.Current hospital medications:potassium chloride ER 40 mEq tab(s) (K-DUR, KLOR-CON) 40 mEq ORAL/FEEDINGTUBE q 2 H PRNmagnesium sulfate in water 4-6 g in sterile water 50 ml 4-6 g INTRAVENOUSPRNsodium phosphate 45 mmol in NaCl 0.9% 250 mL 45 mmol INTRAVENOUS PRN0.9% NaCl 3-5 mL 3-5 mL INTRAVENOUS q 12 H0.9% NaCl 10 mL 10 mL INTRAVENOUS q 12 H0.9% NaCl 20 mL 20 mL INTRAVENOUS PRNinsulin regular human injection (short acting) (NovoLIN R,HumuLIN R)SUBCUTANEOUS q 6 Hinsulin regular 250 units in NaCl 0.9% 250 mL iv infusion - ICU NOMOGRAM0.5-30 Units/hr INTRAVENOUS CONTINUOUSinsulin regular human iv bolus 2-10 Units 2-10 Units INTRAVENOUS PRNdextrose 50% in water 25-50 mL syringe 12.5-25 g INTRAVENOUS PRNdextrose 40 % 15 g 15 g ORAL PRNglucagon 1 mg injection (GLUCAGEN) 1 mg SUBCUTANEOUS PRNoxyCODONE IR 5-10 mg tab(s) (ROXICODONE) 5-10 mg ORAL/FEEDING TUBE q 4 HPRNHYDROmorphone 0.5-1 mg injection (DILAUDID) 0.5-1 mg INTRAVENOUS q 4 H PRN[START ON 11/04/2017] pantoprazole 40 mg injection (PROTONIX) 40 mgINTRAVENOUS DAILY (6 AM)methylPREDNISolone (MEDROL) tab(s) 40 mg 40 mg ORAL DAILYALLERGIES:ALLERGIESAlle rgen Reactions- Linezolid Rash Concern of DRESS- Vancomycin Rash Concern of DRESSREVIEW OF SYSTEMS:General: no f/cSkin: as noted in HPIOtherwise negative excepted as noted in HPI.PHYSICAL EXAM: BP 106/61 Pulse 100 Temp 36.6 ?C (97.9 ?F) (Oral) Resp 15 Ht 188 cm (6' 2) Wt 94.9 kg (209 lb 3.5 oz) SpO2 99% BMI 26.86 kg/m?Gen: AANDOx3 in NADSkin exam performed including face, neck, chest, abdomen, back, arms,hands including nails, legs, feet, groin and noted findings of:- Diffuse scale over face- JaundiceDATA:Labs: reviewedASSESSMENT AND PLAN:57 YOM w/ PMH: Factor V Leiden c/b DVT and PE [facility].1. DRESS, cutaneous manifestations resolving. Sill w/ transaminitis ANDelevated CrTransaminitis can persistent months after DRESS, despite adequate therapy.- Continue methylpred 40mg daily. Recommend decreasing by 10mg every 10days. (40mg for 10 days, 30mg for 10 days, and so on)- Will schedule dermatology follow-up for patient in 4-6 weeks- Recommend hepatology assess patientWill sign offDiscussed w/ staff Dr. Jacques Russell, [facility] ASSOCIATIONeptember 2017 4:58 PMPlease use consult pager [phone], Mon-Fri 8am-5pm. Please call pocket flap creasing machine operator foron-call resident/pager during all other hours. Normal [facility] Comp Metabolic Panelon 11-04 Albumin mass conc 1.7 g/dL Low 3.9-4.9 [facility] Comment on above: Performed By: #### P T, PTT, LACT, CMP, MG1, PHOS, CBCDIF ####[facility] [place], [place] [phone] ALP enzyme act/vol 508 U/L High 36-108 [facility] Comment on above: Performed By: #### P T, PTT, LACT, CMP, MG1, PHOS, CBCDIF ####[facility] [address] [place], [place] [phone] ALT enzyme act/vol 256 U/L High 10-54 [facility] Comment on above: Performed By: #### P T, PTT, LACT, CMP, MG1, PHOS, CBCDIF ####[facility] [address] [place], [place] [phone] Anion gap 3 molar conc 12 mmol/L Normal 9-18 [facility] Comment on above: Performed By: #### P T, PTT, LACT, CMP, MG1, PHOS, CBCDIF ####[place] [address], [place] [phone] AST enzyme act/vol 168 U/L High 14-40 [facility] Comment on above: Performed By: #### P T, PTT, LACT, CMP, MG1, PHOS, CBCDIF ####[address] [phone] Bilirubin mass conc 11.0 mg/dL High 0.2-1.3 [facility] Comment on above: Performed By: #### P T, PTT, LACT, CMP, MG1, PHOS, CBCDIF ####[address] [phone] Calcium mass conc 7.4 mg/dL Low 8.5-10.2 [facility] Comment on above: Performed By: #### P T, PTT, LACT, CMP, MG1, PHOS, CBCDIF ####[address] [phone] Chloride molar conc 110 mmol/L High 97-105 [facility] Comment on above: Performed By: #### P T, PTT, LACT, CMP, MG1, PHOS, CBCDIF ####[address] [phone] CO2 molar conc 21 mmol/L Low 22-30 [facility] Comment on above: Performed By: #### P T, PTT, LACT, CMP, MG1, PHOS, CBCDIF ####[address] [phone] Creatinine mass conc 2.97 mg/dL High 0.73-1.22 [facility] Comment on above: Performed By: #### P T, PTT, LACT, CMP, MG1, PHOS, CBCDIF ####[address] [phone] eGFR- Amer. 27 [facility] Comment on above: Performed By: #### P T, PTT, LACT, CMP, MG1, PHOS, CBCDIF ####[facility] [place], [place] [phone] GFR/1.73 sq M predicted among non-blacks MDRD vol rate/area (S/P/Bld) 22 . Normal [facility] Comment on above: Result Comment: eGFR (Estimated GFR) Units of measure: mL/min/1.73 meters squaredeGFR is derived from the reexpressed MDRD Study equation using the following parameters: serum creatinine, age, gender and race. The creatinine assay has been calibrated to be traceable to IDMS.An eGFR <60 mL/min/1.73m2 for >3 months is consistent with chronic kidney disease. Refer to KDOQI guidelines for clinical interpretation.In patients with unstable renal function, e.g. those with acute kidney injury, the eGFR may not accurately reflect actual GFR. Performed By: #### P T, PTT, LACT, CMP, MG1, PHOS, CBCDIF ####[facility] [place], [place] [phone] Glucose mass conc 101 mg/dL High 74-99 [facility] Comment on above: Result Comment: The [place] Diabetes Association (ADA) provides guidance for cutoff values for fasting glucose and random glucose. The ADA defines fasting as no caloric intake for at least 8 hours. Fasting plasma glucose results between 100 to 125 mg/dL indicate increased risk for diabetes (prediabetes).Fasting plasma glucose results greater than or equal to 126 mg/dL meet the criteria for diagnosis of diabetes. In the absence of unequivocal hyperglycemia, results should be confirmed by repeat testing. In a patient with classic symptoms of hyperglycemia or hyperglycemic crisis, random plasma glucose results greater than or equal to 200 mg/dL meet the criteria for diagnosis of diabetes.Reference: Standards of Medical Care in Diabetes 2016, [place] [employer] Association. Diabetes Care. 2016.39(Suppl 1). Performed By: #### P T, PTT, LACT, CMP, MG1, PHOS, CBCDIF ####[facility], [place] [phone] Potassium molar conc 5.1 mmol/L Normal 3.7-5.1 [facility] Comment on above: Performed By: #### P T, PTT, LACT, CMP, MG1, PHOS, CBCDIF ####[facility], [place] [phone] Protein mass conc 6.4 g/dL Normal 6.3-8.0 [facility] Comment on above: Performed By: #### P T, PTT, LACT, CMP, MG1, PHOS, CBCDIF ####[place] [address]CSan [place]andro, [place] [phone] Sodium molar conc 143 mmol/L Normal 136-144 [facility] Comment on above: Performed By: #### P T, PTT, LACT, CMP, MG1, PHOS, CBCDIF ####[place] [address]CSan [place], [place] [phone] Urea nitrogen mass conc 38 mg/dL High 9-24 [facility] Comment on above: Performed By: #### P T, PTT, LACT, CMP, MG1, PHOS, CBCDIF ####[place] [address], [place] [phone] IgG Subclasses+Totalon 11-04 IgG mass conc 3220 mg/dL High 717-1411 [facility] Comment on above: Performed By: #### P T, PTT, LACT, CMP, MG1, PHOS, CBCDIF ####[facility], [place] [phone] IgG Subclass 1 1791.3 mg/dL High 396.0-965. 0 [facility] Comment on above: Performed By: #### P T, PTT, LACT, CMP, MG1, PHOS, CBCDIF ####[place] [address] [place], [place] [phone] IgG Subclass 2 667.0 mg/dL Normal 176.0-698. 0 [facility] Comment on above: Performed By: #### P T, PTT, LACT, CMP, MG1, PHOS, CBCDIF ####[facility], [place] [phone] IgG Subclass 3 544.5 mg/dL High 16.0-134.0 [facility] Comment on above: Performed By: #### P T, PTT, LACT, CMP, MG1, PHOS, CBCDIF ####[facility], [place] [phone] IgG Subclass 4 125.8 mg/dL Normal 5.0-131.0 [facility] Comment on above: Performed By: #### P T, PTT, LACT, CMP, MG1, PHOS, CBCDIF ####[facility] [place], [place] [phone] Lactateon 11-04-2017 Lactate molar conc 2.0 mmol/L Normal 0.5-2.2 [facility] Comment on above: Performed By: #### P T, PTT, LACT, CMP, MG1, PHOS, CBCDIF ####[facility], [place] [phone] Mitochondrial Ab Pnlon 11-04 Mitochondrial Ab Pnl Negative Normal Negative [facility] Comment on above: Result Comment: Norm al range : negative at a 1:20 serum dilution. Performed By: #### P T, PTT, LACT, CMP, MG1, PHOS, CBCDIF ####[facility], [place] [phone] NUTRITIONon 11-04-2017 NUTRITION HNO ID: [id number] thor: [address] RathService: NST-Nutrition Support TeamAuthor Type: Registered DietitianType: NutritionFiled: 11/04/2017 9:11 AMNote Text:NUTRITION SUPPORT TEAM INITIAL ASSESSMENTSERVICE DATE: 11/04/2017SERVICE TIME: 8:39 AMRECOMMENDED MALNUTRITION DIAGNOSIS: MILD PROTEIN-CALORIE MALNUTRITIONIn the context of Acute Illness or Injury based on:Insufficient Energy Intake: <75% for >7 daysIntervention:1. Advance oral diet as tolerated to Regular2. Ensure Enlive TID with meals (350 kcal, 20 g protein per serving)3. Magic Cup BID with meals (290 kcal, 8 g protien per serving)4. Recommend daily multivitamin with mineralsMonitor and Evaluation:Goal: Meet >75% of estimated needsDischarge Nutrition Recommendations:Diet: RegularPer HPI: This is a 57 year old male who presents with concern for RP bleedand DRESS Syndrome.?His pmhx is significant for:- Factor V Leiden c/b DVT and PE on coumadin- Right Total Knee Replacement 07/2017 c/b Pseudomonas UTI infection08/2017, reexploration 08/2017 d/t concern of joint infection. Negative forjoint infection, but found to have R. Thigh Abscess and d/c'ed onCeftriaxone and Vanco. All cultures have been negative.- Re-admitted to OSH in 09/2017 with fever and rash, concern for allergy toVanco. Antibiotics changed to Zyvox and Doxycycline PO and patient wasdischarged. Rash worsened, patient saw outpatient provider who wasconcerned for allergy to Zyvox, Zyvox was d/c'ed 10/19 d/t concern of SJS.Patient was continued on PO Doxycycline.Presented to OSH on 10/28 with increased lethargy, swollen hands, face,tongue, new fever. In the ED he was found to have INR of 19.5. He wasgiven Vit K and his coumadin was held. He was also noted to havetransaminitis. CT of the right lower extremity demonstrated again aconcern for abscess and was started on doxycyline and Zosyn. He was notedto be hypotensive, with sbp ~100's, received 3.5L of fluid and started onnorepi. He was admitted to the MICU for treatment of septic shock.Current Diet Order DIET LIQUID Order Specific Question: Liquid Diet Answer: FULL LIQUIDLines and Drains:Central Line Single Lumen 09/20/17 Peripherally Inserted (PICC) Right Arm(Active)Peripheral Assessment Short Right Forearm 18 Gauge (Active)Nutritional Intake Prior to Admission:Per d/w patient,appetite declined over the past week. having taste changesand dry mouth. was drinking Boost and had magic cup at OSH. Denieschewing/swallowing problems.GI symptoms: hypogeusia/dysgeusiaANTHROPO METRICSHeight: 188 cm (6' 2)Admission Weight: 94.9 kg (209 lb 3.5 oz)Current Weight: 94.5 kg (208 lb 5.4 oz)Body mass index is 26.75 kg/m?.Weight has increased due to fluidLast Wt11/04/17 : 94.5 kg (208 lb 5.4 oz)UBW 200 lbs/90.9 kgDosing Weight: 90.9 kgEstimated kilocalorie needs: 4973-6922 kilocalories determined by 25-30kcal/kgEstimated protein needs: 109-137 grams determined by 1.2-1.5 g/kg DosingweightEstimated fluid needs: 2300 milliliters based on 1 mL per kcalNUTRITION FOCUSED PHYSICAL EXAM:Subcutaneous Fat LossOrbital No fat lossTriceps No fat lossMid-axillary at the iliac crest Unable to determine at this timeMuscle Loss Locations:Temporalis MildPectoralis MildDeltoids No muscle lossInterosseous No muscle lossLatissimus dorsi, trapezius Unable to determine at this timeQuadriceps No muscle lossGastrocnemius Unable to determine at this timePotential micronutrient deficiency revealed in: Skin - dry and flakyEdema: Yes, BLE 4+Ascites: NoAssessment of Functional Status: Functional, yet not normal, able to be upand about with fairly normal activities for a duration of 1 weeksTemperature Max in 24 hours: Temp (24hrs), Av.5 ?C (97.7 ?F), Min:36.3?C (97.3 ?F), Max:36.7 ?C (98.1 ?F) BP 118/68 Pulse 90 Temp 36.4 ?C (97.5 ?F) (Oral) Resp 13 Ht188 cm (6' 2) Wt 94.5 kg (208 lb 5.4 oz) SpO2 99% BMI 26.75kg/m?Recent Labs 11/03/1813GLUC 101* -- 102*BUN 38* -- 32*CREAT 2.97* -- 2.48*NA 143 -- 143K 5.1 -- 5.0CHLOR 110* -- 110*CO2 21* < > 19*ALB 1.7* -- 1.7*P -- -- 6.9*HB 6.1* -- 8.1*HCT 17.4* -- 24.5*WBC 16.16* -- 12.91*MG -- -- 2.2< > = values in this interval not displayed.Potential Signs of Inflammation: leukocytosis, hypoalbuminemia, septicshockALLERGIESAllergen Reactions- Linezolid Rash Concern of DRESS- Vancomycin Rash Concern of DRESSCurrent Facility-Administered Medications:potassium chloride ER 40 mEq tab(s) (K-DUR, KLOR-CON) 40 mEq ORAL/FEEDINGTUBE q 2 H PRNmagnesium sulfate in water 4-6 g in sterile water 50 ml 4-6 g INTRAVENOUSPRNsodium phosphate 45 mmol in NaCl 0.9% 250 mL 45 mmol INTRAVENOUS PRN0.9% NaCl 3-5 mL 3-5 mL INTRAVENOUS q 12 H0.9% NaCl 10 mL 10 mL INTRAVENOUS q 12 H0.9% NaCl 20 mL 20 mL INTRAVENOUS PRNinsulin regular human injection (short acting) (NovoLIN R,HumuLIN R)SUBCUTANEOUS q 6 Hinsulin regular 250 units in NaCl 0.9% 250 mL iv infusion - ICU NOMOGRAM0.5-30 Units/hr INTRAVENOUS CONTINUOUSinsulin regular human iv bolus 2-10 Units 2-10 Units INTRAVENOUS PRNdextrose 50% in water 25-50 mL syringe 12.5-25 g INTRAVENOUS PRNdextrose 40 % 15 g 15 g ORAL PRNglucagon 1 mg injection (GLUCAGEN) 1 mg SUBCUTANEOUS PRNoxyCODONE IR 5-10 mg tab(s) (ROXICODONE) 5-10 mg ORAL/FEEDING TUBE q 4 HPRNAndHYDROmorphone 0.5-1 mg injection (DILAUDID) 0.5-1 mg INTRAVENOUS q 4 H PRNpantoprazole 40 mg injection (PROTONIX) 40 mg INTRAVENOUS DAILY (6 AM)methylPREDNISolone (MEDROL) tab(s) 40 mg 40 mg ORAL DAILYDate 11/03/17 0700 - 11/04/17 0659 11/04/17 0700 - 11/05/17 0659Shift 1977-8159 4522-0097 8250-9239 24 Hour Total 5054-1563 4144-92529081-5123 24 Hour TotalINTAKE Blood Products 1 996 997 PRBC Intake (mL) 350 350 FFP mL 643 643 Packed Red Blood Cells Number of Units 1 1 2 Fresh Frozen Plasma Number of Units 2 2 Other Amount Wasted PRBC 0 mL 0 mL Shift Total 1 996 997OUTPUT Urine 0 150 150 Void (ml) 0 150 150 # of BMs Number of BMs 0 x 0 x Shift Total 0 150 150Weight (kg) 94.9 94.9 94.5 94.5 94.5 94.5 94.5 94.5Vitamin and Mineral Labs in the past year:No results for input(s):CHROMIUM, COPPER, MANGANESE, SELENIUM, VITAMINA, VITB1, VITB2, VITB6, B12,METHYLMAL, VITD25, VITAMINE, VITAK, ZINC, TIBC, FE, JSEÚS in the last 8784hours.MNT Billing Type: Initial Assess/15 min 4 unitsSIGNATURE: Eliane Mccall, RD, LD, [facility] PATIENT NAME: Hung AhumadaoneDATE: November 04, 2017 : 7:44 AM PAGER: [phone] Normal [facility] PROGRESSon 11-04-2017 Protein mass conc HNO ID: [id number] thor: Tasia Galeas, MDService: Critical CareAuthor Type: PhysicianType: Progress NotesFiled: 11/04/2017 10:03 PMNote Text:SERVICE DATE: 11/04/2017SERVICE TIME: 10:48 AMMICU PROGRESS NOTEAdmission Date: 11/03/2017Hospital Day # 1HPISUBJECTIVEInterval Events: hgb drop, transfused 1 PRBC, 2 FFPOBJECTIVEVital Signs (last filed) Range in last 24hTemp: 36.4 ?C (97.5 ?F) (11/04/17 0800) Temp Min: 36.3 ?C (97.3 ?F) Max:36.7 ?C (98.1 ?F)Pulse: 93 (11/04/17 1000) Pulse Min: 90 Max: 106Resp: 25 (11/04/17 1000) Resp Min: 13 Max: 28BP: 98/54 (11/04/17 1000) BP Min: 96/52 Max: 122/65MAP Non Invasive (Mean Arterial Pressure): 70 (11/04/17 1000) MAP NonInvasive (Mean Arterial Pressure) Min: 68 Max: 88 No Data RecordedSpO2: 93 % (11/04/17 1000) SpO2 Min: 93 % Max: 100 %Pain Score: 0/10 (11/04/17 0800)Fluid Balance:Intake/Output Summary (Last 24 hours) at 11/04/17 0659Last data filed at 11/04/17 0400 Gross per 24 hourIntake 997 mlOutput 150 mlNet 847 mlLast Weight: 94.5 kg (208 lb 5.4 oz) (11/04/17 0600)Admit Weight: 94.9 kg (209 lb 3.5 oz) (11/03/17 1407)DIET LIQUIDLines, Drains, and Airways Line Peripheral Assessment Short Right Forearm 18 Gauge -- days Central Line Single Lumen 09/20/17 Peripherally Inserted (PICC) Right Arm45 daysVent/Oxygen: RAPhysical Examination PerformedOral Mucosa: Moist mucous membranesEyes: PERRLCardiovascular: Regular rhythmRespiratory: Clear to auscultationAbdomen: Soft and Positive bowel soundsExtremities: Edema- Yes Peripheral Pulses- Present all extremitiesCapillary Refill- less than 3 secondsNeurologic: Awake, oriented, Alert, Follows commands and Moving allextremitiesInfusion Medicationsinsulin regularDiagnostic tests reviewed today: Most recent labs and imaging results.PATIENT CHECKLIST? Are restraints necessary: No? Deep vein thrombosis prophylaxis administered? No. Contraindicated.? Stress ulcer prophylaxis? Yes? Nasogastric tube? No? Morejon catheter necessary? No? Is central line essential? No? Plan discussed with assigned RN? Yes? Family updated within last 24 hours? YesCARE COORDINATION:Patient Summary: 57 year old male with PMHx of Factor V Leiden c/b DVT andPE on Coumadin and Right Total Knee Replacement 07/2017 who was transferredfrom an OSH d/t concern for DRESS vs SJS/TEN and RP bleed in the settingof elevated INR (19.5 on admission to OSH ED).Major Interval Events:11/03: Admitted to MICU from OSH for RP bleed11/04: hgb drop, transfused 1 PRBC, 2 FFPFull codePlan to be discussed with MICU attendingASSESSMENT AND PLANOverview, Assessment AND Plan, all Hosp ProblemsActive Hospital Problems as of 11/04/2017 Noted - Resolved Hospital Retroperitoneal bleed 11/03/2017 - Present Current Assessment AND Plan Assessment: OSH CT A/P (11/03) with RP bleed in setting ofsupratherapeutic INR- INR on admission to OSH 10/28 >19.5. S/p 3 units of FFP- INR on 11/03 prior to transfer 7.4 received 2 units of FPP- 1 PRBC, 2 FFP overnightPLAN:- trend HGB, repeat low this AM will transfuse 2 U PRBC- Correct coagulopathy, send TEG- IR consulted, will discuss re-evaluation if does not respond totransfusion DAYNA (acute kidney injury) (HCC) 11/03/2017 - Present Current Assessment AND Plan Assessment: Nonoliguric DAYNA/ATN secondary to hemodynamic instability vsDRESS syndrome. Normal SCr at baseline. SCr peaked at OSH (10/30) at 2.7PLAN:- Strict IANDO's. Trend BMP. Elevated LFTs 11/03/2017 - Present Current Assessment AND Plan Assessment: ? Secondary to DRESS. US (11/01) thickened GB wall with asmall amt of pericholecystic fluid. Mild hepatomegaly with with mild fattyinfiltration. Evaluated by surg at OSH with no recommended intervention.- transaminase trending down, acute hep panel significant for previous Bexposure, US with appropriate flow, no biliary dilation, non-specific GBwall thickeningPLAN:- Trend LFTs- AI work up Factor V Leiden (HCC) 11/03/2017 - Present Current Assessment AND Plan Assessment: H/o Factor V Leiden with h/o PE/DVT on coumadin.Supratherapetic INR of 19 on presentation to OSH 10/28.PLAN:- Holding anticoagulation in setting of supratherapeutic INR and anemia- will correct coagulopathy given new RP bleed Hypersensitivity reaction 11/03/2017 - Present Current Assessment AND Plan Assessment: Suspected DRESS at OSH with fever, desquamating rash,peripheral eosinophilia, DAYNA, hepatitis in setting of vanc therapy in08/2017 for thigh abscessPLAN:- Supportive management- Continue Methylprednisolone 40 mg daily- Derm recs Anemia 11/03/2017 - Present Current Assessment AND Plan Assessment: Secondary to RP bleedPLAN:- Trend CBC. Blood product support as needed. Supratherapeutic INR 11/03/2017 - Present Current Assessment AND Plan Assessment: S/p vitamin K and 5 units FFP at OSH. Persistentsupratherapeutic INR thought to be secondary to liver dysfunctionPLAN:- Monitor INR.- Correct coagulopathy- send TEG Acute respiratory failure with hypoxia (HCC) 11/03/2017 - Present Current Assessment AND Plan Assessment:- 50% VM on admission- no known O2 requirements at homePLAN:- CXR- wean O2 as able Mild protein-calorie malnutrition (HCC) 11/04/2017 - PresentMedication and Non-Pharmacologic VTE Prophylaxis/Lnjevsbvszhiql05 /13/18 1445 vte pharmacologic prophylaxis contraindicated (ri,vt)11/03/17 1445 pneumatic compression stockings (ri,vt)11/03/17 1445 activity - mobilize patient ([place])VTE Prophylaxis: Contraindicated bleedingPlan of care discussed with: Patient and ICU TeamSIGNATURE: Dylon Levine PA-C PATIENT NAME: Hung AhumadaoneDATE: November 04, 2017 : 10:48 AM PAGER/CONTACT #: [id number] STAFF PHYSICIAN NOTE OF PERSONAL INVOLVEMENT IN CAREI have reviewed the note obtained and documented. I have personallyparticipated in the madrigal components. I have discussed the case andmanagement of the patient's care with the team including the ICU fellow.The following comments revise or confirm relevant madrigal components of thenote.IMPRESSION/PLAN:Vanita ent Active Hospital Problem List: Retroperitoneal bleed (11/03/2017) DAYNA (acute kidney injury) (HCC) (11/03/2017) Hepatitis (11/03/2017) Factor V Leiden (HCC) (11/03/2017) Drug induced rash with eosinophilia and systemic symptoms (11/03/2017) Anemia due to blood loss (11/03/2017) Supratherapeutic INR (11/03/2017) Mild protein-calorie malnutrition (HCC) (11/04/2017) Coagulopathy (HCC) (11/04/2017)He appears to have ongoing bleeding; Hb demario 5.9 and INR 2.5-3. Warfarinhas been held. Timing of liver dysfunction might not be due to DRESS andautoimmune hepatitis is a consideration.Transfuse prbc to goal Hb greater than 7FFP for coagulopathyAutoimmune evaluationNephrology consultThis patient has a high probability of sudden, clinically significantdeterioration, which requires the highest level of physician preparednessto intervene urgently. I managed/supervised life or organ supportinginterventions that required frequent physician assessment. I devoted myfull attention to the direct care of this patient for the amount of timeindicated below. Time I spent with family or surrogate(s) is includedonly if the patient was incapable of providing the necessary informationor participating in medical decision making. Time devoted to teaching andto any procedures I billed separately is not included.Critical Care Documentation: The patient has the following organ/systemimpairment(s): Acute blood loss, Acute kidney injury, Coagulopathy andComplex life-threatening medical problem(s)Time spent providing critical care services: 30 minutes.SIGNATURE: Tasia Galeas MD PHDCRITICAL CARE MEDICINEDATE of SERVICE: November 04, 2017 Normal [facility] Protimeon 11-04-2017 INR Coag RelTime (Bld) 2.4 {INR} High 0.9-1.3 Cl [facility] Comment on above: Result Comment: Nini min K Antagonist (VKA) Therapeutic Range: INR 2 to 3 (Target INR of 2.5)Note: For patients treated with VKA drugs, such as warfarin, the [place] [employer] 2012 Guideline recommends a therapeutic INR range of 2 to 3 (target INR of 2.5). This recommendation includes high-risk patients with antiphospholipid syndrome with previous arterial or venous thromboembolism, current-generation mechanical or bioprosthetic aortic heart valve replacement.Note: Patients with mechanical aortic valve replacement and additional risk factors for thromboembolic events (atrial fibrillation, previous thromboembolism, LV dysfunction, hypercoagulable conditions) or an older generation mechanical AVR (i.e., ball in-Cage) or any mechanical MVR should have a INR therapeutic range of 2.5 to 3.5 (target INR of 3).Raghav GH, et al. Chest 2012, 141:7S-47SNishcarolyn RA, et al. JACC 2017, 70: 252-289 Performed By: #### P T, PTT, LACT, CMP, MG1, PHOS, CBCDIF ####[facility] [place], [place] [phone] PT Sec 23.4 sec High 9.7-13.0 [facility] Comment on above: Performed By: #### P T, PTT, LACT, CMP, MG1, PHOS, CBCDIF ####[facility] [place], [place] [phone] INR Coag RelTime (Bld) 3.0 {INR} High 0.9-1.3 [facility] Comment on above: Result Comment: Nini min K Antagonist (VKA) Therapeutic Range: INR 2 to 3 (Target INR of 2.5)Note: For patients treated with VKA drugs, such as warfarin, the [place] [employer] 2012 Guideline recommends a therapeutic INR range of 2 to 3 (target INR of 2.5). This recommendation includes high-risk patients with antiphospholipid syndrome with previous arterial or venous thromboembolism, current-generation mechanical or bioprosthetic aortic heart valve replacement.Note: Patients with mechanical aortic valve replacement and additional risk factors for thromboembolic events (atrial fibrillation, previous thromboembolism, LV dysfunction, hypercoagulable conditions) or an older generation mechanical AVR (i.e., ball in-Cage) or any mechanical MVR should have a INR therapeutic range of 2.5 to 3.5 (target INR of 3).Raghav GH, et al. Chest 2012, 141:7S-47SMatthias RA, et al. [facility] 2017, 70: 252-289 Performed By: #### P T, PTT, LACT, CMP, MG1, PHOS, CBCDIF ####[facility] [place], [place] [phone] PT Sec 29.3 sec High 9.7-13.0 [facility] Comment on above: Performed By: #### P T, PTT, LACT, CMP, MG1, PHOS, CBCDIF ####[facility] [place], [place] [phone] Smooth Muscle Ab Pnlon 11-04 Smooth Muscle Ab Pnl Positive Critically abnormal Negative [facility] Comment on above: Result Comment: Norm al range : negative at a 1:20 serum dilution. Performed By: #### P T, PTT, LACT, CMP, MG1, PHOS, CBCDIF ####[address] [phone] Smooth Muscle Titer (For lab use only)on 11-04-2017 Smooth Muscle Titer (For lab use only) > 1:320 Critically abnormal Negative [facility] Comment on above: Performed By: #### P T, PTT, LACT, CMP, MG1, PHOS, CBCDIF ####[place] [phone] Staff Rev w CBCDIFon 018 Abs Baso 0.16 k/uL High <0.11 [facility] Comment on above: Performed By: #### P T, PTT, LACT, CMP, MG1, PHOS, CBCDIF ####[place] [phone] Abs Haskell 1.28 k/uL High <0.87 [facility] Comment on above: Performed By: #### P T, PTT, LACT, CMP, MG1, PHOS, CBCDIF ####[place] [phone] Abs Neut 11.02 k/uL High 1.45-7.50 [facility] Comment on above: Performed By: #### P T, PTT, LACT, CMP, MG1, PHOS, CBCDIF ####[place] [phone] Absolute nRBC 0.16 k/uL High <0.01 [facility] Comment on above: Performed By: #### P T, PTT, LACT, CMP, MG1, PHOS, CBCDIF ####[place] [address] [place], [place] [phone] ANC(includeSEG+BAND) 11.02 k/uL Normal [facility] Comment on above: Performed By: #### P T, PTT, LACT, CMP, MG1, PHOS, CBCDIF ####[place] [address]CS[address] [place], [place] [phone] Anisocytosis Auto Ql (Bld) Present Normal [facility] Comment on above: Performed By: #### P T, PTT, LACT, CMP, MG1, PHOS, CBCDIF ####[place] [address] [place] [phone] Basophils/100 WBC Auto (Bld) 1.0 % Normal [facility] Comment on above: Performed By: #### P T, PTT, LACT, CMP, MG1, PHOS, CBCDIF ####[place] [address] [place] [phone] DTYPE Manual Diff Normal [facility] Comment on above: Performed By: #### P T, PTT, LACT, CMP, MG1, PHOS, CBCDIF ####[place] [address] [place] [phone] Eosinophils Auto #/vol (Bld) 0.16 10*3/uL Normal <0.46 [facility] Comment on above: Performed By: #### P T, PTT, LACT, CMP, MG1, PHOS, CBCDIF ####[place] [address], [place] [phone] Eosinophils/100 WBC Auto (Bld) 1.0 % Normal [facility] Comment on above: Performed By: #### P T, PTT, LACT, CMP, MG1, PHOS, CBCDIF ####[place] [address] [place], [place] [phone] Erythrocyte distribution width Auto Ratio (RBC) 16.1 % High 11.5-15.0 [facility] Comment on above: Performed By: #### P T, PTT, LACT, CMP, MG1, PHOS, CBCDIF ####[place] [address] [place], [place] [phone] Hematocrit Auto Volume Fraction (Bld) 22.3 % Low 39.0-51.0 [facility] Comment on above: Performed By: #### P T, PTT, LACT, CMP, MG1, PHOS, CBCDIF ####[address] [place] [phone] Hemoglobin mass conc (Bld) 7.6 g/dL Low 13.0-17.0 [facility] Comment on above: Performed By: #### P T, PTT, LACT, CMP, MG1, PHOS, CBCDIF ####[place] [phone] Lymphocytes Auto #/vol (Bld) 2.87 10*3/uL Normal 1.00-4.00 [facility] Comment on above: Performed By: #### P T, PTT, LACT, CMP, MG1, PHOS, CBCDIF ####[place] [phone] Lymphocytes/100 WBC Auto (Bld) 18.0 % Normal [facility] Comment on above: Performed By: #### P T, PTT, LACT, CMP, MG1, PHOS, CBCDIF ####[address], [place] [phone] MCH Auto Entitic mass (RBC) 29.1 pG Normal 26.0-34.0 [facility] Comment on above: Performed By: #### P T, PTT, LACT, CMP, MG1, PHOS, CBCDIF ####[address], [place] [phone] MCHC Auto mass conc (RBC) 34.1 g/dL Normal 30.5-36.0 [facility] Comment on above: Performed By: #### P T, PTT, LACT, CMP, MG1, PHOS, CBCDIF ####[address] [phone] MCV Auto Entitic volume (RBC) 85.4 fL Normal 80.0-100.0 [facility] Comment on above: Performed By: #### P T, PTT, LACT, CMP, MG1, PHOS, CBCDIF ####[address] [place] [phone] Arrey% 1.0 % Normal [facility] Comment on above: Performed By: #### P T, PTT, LACT, CMP, MG1, PHOS, CBCDIF ####[place] [phone] Monocytes/100 WBC Auto (Bld) 8.0 % Normal [facility] Comment on above: Performed By: #### P T, PTT, LACT, CMP, MG1, PHOS, CBCDIF ####[place] [phone] Myelo% 2.0 % Normal [facility] Comment on above: Performed By: #### P T, PTT, LACT, CMP, MG1, PHOS, CBCDIF ####[place] [phone] Neutrophils/100 WBC Auto (Bld) 69.0 % Normal [facility] Comment on above: Result Comment: See Staff Review Performed By: #### P T, PTT, LACT, CMP, MG1, PHOS, CBCDIF ####[address] [place] [phone] NRBCs 1 /100 WBC High 0 [facility] Comment on above: Performed By: #### P T, PTT, LACT, CMP, MG1, PHOS, CBCDIF ####[address] [phone] Pathologist Cyto stain ID Nom (Cervical or vaginal smear or scraping) Reviewed by Ann Marie Gaffney M.D. ([id number]) Normal [facility] Comment on above: Performed By: #### P T, PTT, LACT, CMP, MG1, PHOS, CBCDIF ####[address] [phone] Platelet mean volume Auto Entitic volume (Bld) 11.1 fL Normal 9.0-12.7 [facility] Comment on above: Performed By: #### P T, PTT, LACT, CMP, MG1, PHOS, CBCDIF ####[address] [phone] Platelets Auto #/vol (Bld) Platelet estimate adequate Normal [facility] Comment on above: Performed By: #### P T, PTT, LACT, CMP, MG1, PHOS, CBCDIF ####[address] [phone] Platelets Auto #/vol (Bld) 168 10*3/uL Normal 150-400 [facility] Comment on above: Performed By: #### P T, PTT, LACT, CMP, MG1, PHOS, CBCDIF ####[address] [phone] Polychromasia Slight Normal [facility] Comment on above: Performed By: #### P T, PTT, LACT, CMP, MG1, PHOS, CBCDIF ####[address] [phone] RBC Auto #/vol (Bld) 2.61 10*6/uL Low 4.20-6.00 [facility] Comment on above: Performed By: #### P T, PTT, LACT, CMP, MG1, PHOS, CBCDIF ####[address] [place], [place] [phone] Staff Review SEE COMMENT Normal [facility] Comment on above: Result Comment: Norm ocytic Anemia With Slight PolychromasiaNeutrophilic Leukocytosis with Left ShiftAbsolute Monocytosis Performed By: #### P T, PTT, LACT, CMP, MG1, PHOS, CBCDIF ####[place] [address] [place], [place] [phone] Thyrotropin Qn Present Normal [facility] Comment on above: Performed By: #### P T, PTT, LACT, CMP, MG1, PHOS, CBCDIF ####[address] [phone] WBC Auto #/vol (Bld) 15.97 10*3/uL High 3.70-11.00 [facility] Comment on above: Performed By: #### P T, PTT, LACT, CMP, MG1, PHOS, CBCDIF ####[facility] [place], [place] [phone] Thrombograph Panelon 14- 018 Coagulation Index 1 Normal [facility] Comment on above: Result Comment: (NOT E)Reference range: NEG 4 to 2The Coagulation Index, a secondary parameter, is labeled bythe insurance case manager as for research use only and is used perthe insurance case manager's instructions. Its performancecharacteristics were determined by [facility] [place] [facility] consistent with CLIA requirements. This test has notbeen cleared by the U.S. Food and Drug Administration. Performed By: #### T EGPNP ####[facility] [place], [place] [phone] Degree Angle 77.4 deg High 47.0-74.0 [facility] Comment on above: Performed By: #### T EGPNP ####[address] [phone] Lysis Time 30 24.7 % High 0.0-5.0 [facility] Comment on above: Performed By: #### T EGPNP ####[facility] [place], [place] [phone] Maximum Amplitude 60.5 mm Normal 51.0-69.0 [facility] Comment on above: Performed By: #### T EGPNP ####[place] [address] [place], [place] [phone] R Value 5.8 min Normal 4.0-10.0 [facility] Comment on above: Performed By: #### T EGPNP ####[place] [address] [place], [place] [phone] Thrombograph Interp (NOTE) Normal [facility] Comment on above: Result Comment: Perf orming Pathologist: Shilo Orta M.D.Abnormal - see comment below. A thromboelastograph (TEG) study was performed usingcitrate-anticoagulated whole blood. The R value, a measure ofcoagulation function, is within the normal range. This indicatesnormal coagulation function. The Maximal Amplitude (MA), a measureof platelet function, is within the normal range. The Angle, ameasure of fibrinogen function, is increased. This is indicative ofincreased fibrinogen concentration or function. The Ly30, a measureof fibrinolysis function, is prolonged. This is indicative ofincreased fibrinolytic function. The Coagulation Index (CI), ameasure of hemostasis function, is within the normal range. The CI dina calculated parameter based on the other TEG results. Performed By: #### T EGPNP ####[facility] [place], [place] [phone] US DVT UPPER LTon 11-04-2017 US DVT UPPER LT * * *Final Report* * *DATE OF EXAM: Nov 04 2017 2:44PM U 1003 - US DVT UPPER LT / REASON: Arm swelling or pain, DVT suspected * * * * Physician Interpretation * * * * LEFT UPPER EXTREMITY DEEP VENOUS ULTRASOUND WITH DOPPLER IMAGINGCLINICAL HISTORY: 57 year old male?with PMH of factor V Leiden deficiency, recent knee replacement and episodes of fever and leukocytosis over the past 3 months. He now exhibits severe anemia, acute kidney injury, shock liver, continued coagulapathy with retroperitoneal hematoma. He is being transferred for further workup for his complex disease process. Had supratherapeutic INR being corrected with FFP and vitamin K.COMPARISON: NoneTECHNIQUE:Scott scale ultrasound with compression maneuvers where accessible, color and spectral Doppler of the left internal jugular, subclavian, axillary and brachial veins was performed. The right internal jugular and distal subclavian vein were imaged for comparison. Erickson scale with and without compression of the left basilic and cephalic veins was performed. Images were obtained and stored in a permanent archive.RESULT:LEFT UPPER EXTREMITY DEEP VEINS:Internal Jugular vein: Normal compression, normal spontaneous flow,Subclavian vein: Normal, spontaneous flow,Axillary vein: Normal compression, normal spontaneous flow,Brachial vein: Normal compression, normal spontaneous flow,LEFT UPPER EXTREMITY SUPERFICIAL VEINS:Basilic vein: Normal compressionCephalic vein: Normal compressionRIGHT UPPER EXTREMITY DEEP VEINS (FOR COMPARISON):Internal Jugular and distal subclavian veins:Normal compression, normal spontaneous flow. Note is made of a central venous catheter in the right subclavian vein.IMPRESSION:NEGATIVE STUDY FOR ACUTE DVT IN THE LEFT UPPER EXTREMITY.NEGATIVE STUDY FOR SUPERFICIAL THROMBOPHLEBITIS IN THE LEFT UPPER EXTREMITYTranscriptionist: MARGARITA Transcribe Date/Time: Nov 04 2017 3:01PDictated by : ANN MARIE NÚÑEZ MDThis examination was interpreted and the report reviewed and electronically signed by: NATHEN RICARDO MD on Nov 04 2017 3:57PM [id number] Normal [facility] KIDNEY/BLADDERon 11-05-19 18 US KIDNEY/BLADDER * * *Final Report* * *DATE OF EXAM: Nov 04 2017 2:44PM [facility] 1055 - US KIDNEY/BLADDER / REASON: Renal failure, acute (kidney injury) * * * * Physician Interpretation * * * * EXAMINATION: RENAL ULTRASOUNDCLINICAL HISTORY: Elevated creatinineTECHNIQUE: Sonography of the kidneys and urinary bladder was performed. Images were obtained and stored in a permanent archive.MQ: [id number]: NoneRESULT:Right Kidney: -Renal length: 12.3 cm -Parenchyma: Parenchyma echogenicity is mildly increased. Normal parenchymal thickness. -Collecting system: No hydronephrosis. -Calculus: No echogenic, shadowing calculus. -Lesion: None.Left Kidney: -Renal length: 13.4 cm -Parenchyma: Parenchyma echogenicity is mildly increased. Normal parenchymal thickness. -Collecting system: No hydronephrosis. -Calculus: No echogenic, shadowing calculus. -Lesion: None.Bladder: Incompletely distended, limiting evaluation.Trace ascites. Small left pleural effusion.IMPRESSION:NO HYDRONEPHROSIS.TRACE ASCITES. SMALL LEFT PLEURAL EFFUSION.[employer] Operator: MARGARITA Transcribe Date/Time: Nov 04 2017 3:06PDictated by : ANN MARIE NÚÑEZ MDThisamir examination was interpreted and the report reviewed and electronically signed by: NATHEN RICARDO MD on Nov 04 2017 3:59PM [id number] Normal [facility] APTTon 11-03-2017 aPTT Coag time (Bld) 40.7 s High 23.0-32.4 [facility] Comment on above: Result Comment: Unfr actionated Heparin Therapeutic Ranges:Standard Heparin Nomogram: 53 to 78 seconds (anti-Xa level of 0.3 to 0.7 U/ml)Low Dose/ACS Nomogram: 49 to 67 seconds (anti-Xa level of 0.2 to 0.5 U/ml)Stroke Treatment Nomogram: 49 to 67 seconds (anti-Xa level of 0.2 to 0.5 U/ml)Note: The APTT therapeutic range has been determined for the current lot of laboratory APTT reagent in use throughout the [facility]. Performed By: #### P T, PTT, LACT, CMP, MG1, PHOS, CBCDIF ####[facility] [place], [place] [phone] Bilirubin,Conjugatedon 11-03 Bilirubin,Conjugated 8.6 mg/dL High <0.2 [facility] Comment on above: Performed By: #### P T, PTT, LACT, CMP, MG1, PHOS, CBCDIF ####[facility] [place] [phone] CBC and Differentialon 11-03 Abs Baso 0.13 k/uL High <0.11 [facility] Comment on above: Performed By: #### P T, PTT, LACT, CMP, MG1, PHOS, CBCDIF ####[place] [address] [place], [place] [phone] Abs Haskell 1.16 k/uL High <0.87 [facility] Comment on above: Performed By: #### P T, PTT, LACT, CMP, MG1, PHOS, CBCDIF ####[place] [phone] Abs Neut 6.46 k/uL Normal 1.45-7.50 [facility] Comment on above: Performed By: #### P T, PTT, LACT, CMP, MG1, PHOS, CBCDIF ####[place] [phone] ANC(includeSEG+BAND) 6.46 k/uL Normal [facility] Comment on above: Performed By: #### P T, PTT, LACT, CMP, MG1, PHOS, CBCDIF ####[address] [place], [place] [phone] Anisocytosis Auto Ql (Bld) Present Normal [facility] Comment on above: Performed By: #### P T, PTT, LACT, CMP, MG1, PHOS, CBCDIF ####[place] [phone] Basophils/100 WBC Auto (Bld) 1.0 % Normal [facility] Comment on above: Performed By: #### P T, PTT, LACT, CMP, MG1, PHOS, CBCDIF ####[address] [place] [phone] DTYPE Manual Diff Normal [facility] Comment on above: Performed By: #### P T, PTT, LACT, CMP, MG1, PHOS, CBCDIF ####[place] [address] [address] [place] [phone] Eosinophils Auto #/vol (Bld) 0.26 10*3/uL Normal <0.46 [facility] Comment on above: Performed By: #### P T, PTT, LACT, CMP, MG1, PHOS, CBCDIF ####[place] [address] [address] [place] [phone] Eosinophils/100 WBC Auto (Bld) 2.0 % Normal [facility] Comment on above: Performed By: #### P T, PTT, LACT, CMP, MG1, PHOS, CBCDIF ####[place] [address] [place] [phone] Erythrocyte distribution width Auto Ratio (RBC) 18.4 % High 11.5-15.0 [facility] Comment on above: Performed By: #### P T, PTT, LACT, CMP, MG1, PHOS, CBCDIF ####[place] [address] [address] [place] [phone] Hematocrit Auto Volume Fraction (Bld) 24.5 % Low 39.0-51.0 [facility] Comment on above: Performed By: #### P T, PTT, LACT, CMP, MG1, PHOS, CBCDIF ####[place] [address] [address] [place] [phone] Hemoglobin mass conc (Bld) 8.1 g/dL Low 13.0-17.0 [facility] Comment on above: Performed By: #### P T, PTT, LACT, CMP, MG1, PHOS, CBCDIF ####[place] [address] [address] [place] [phone] Lymphocytes Auto #/vol (Bld) 4.52 10*3/uL High 1.00-4.00 [facility] Comment on above: Performed By: #### P T, PTT, LACT, CMP, MG1, PHOS, CBCDIF ####[place] [phone] Lymphocytes/100 WBC Auto (Bld) 35.0 % Normal [facility] Comment on above: Performed By: #### P T, PTT, LACT, CMP, MG1, PHOS, CBCDIF ####[address] [place] [place] [phone] Lymphocytes/100 WBC Auto (Bld) 1.0 % Normal [facility] Comment on above: Performed By: #### P T, PTT, LACT, CMP, MG1, PHOS, CBCDIF ####[place] [phone] MCH Auto Entitic mass (RBC) 27.8 pG Normal 26.0-34.0 [facility] Comment on above: Performed By: #### P T, PTT, LACT, CMP, MG1, PHOS, CBCDIF ####[place] [phone] MCHC Auto mass conc (RBC) 33.1 g/dL Normal 30.5-36.0 [facility] Comment on above: Performed By: #### P T, PTT, LACT, CMP, MG1, PHOS, CBCDIF ####[place] [phone] MCV Auto Entitic volume (RBC) 84.2 fL Normal 80.0-100.0 [facility] Comment on above: Performed By: #### P T, PTT, LACT, CMP, MG1, PHOS, CBCDIF ####[place] [phone] Monocytes/100 WBC Auto (Bld) 9.0 % Normal [facility] Comment on above: Performed By: #### P T, PTT, LACT, CMP, MG1, PHOS, CBCDIF ####[facility] AveCSan [place], [place] [phone] Myelo% 2.0 % Normal [facility] Comment on above: Performed By: #### P T, PTT, LACT, CMP, MG1, PHOS, CBCDIF ####[place] [address] [address] [place], [place] [phone] Neutrophils/100 WBC Auto (Bld) 50.0 % Normal [facility] Comment on above: Performed By: #### P T, PTT, LACT, CMP, MG1, PHOS, CBCDIF ####[address] [place] [phone] Ovalocytes Few Normal [facility] Comment on above: Performed By: #### P T, PTT, LACT, CMP, MG1, PHOS, CBCDIF ####[address], [place] [phone] Platelet mean volume Auto Entitic volume (Bld) 10.8 fL Normal 9.0-12.7 [facility] Comment on above: Performed By: #### P T, PTT, LACT, CMP, MG1, PHOS, CBCDIF ####[address] [place], [place] [phone] Platelets Auto #/vol (Bld) Platelet estimate decreased Normal [facility] Comment on above: Performed By: #### P T, PTT, LACT, CMP, MG1, PHOS, CBCDIF ####[address] [place], [place] [phone] Platelets Auto #/vol (Bld) 122 10*3/uL Low 150-400 [facility] Comment on above: Performed By: #### P T, PTT, LACT, CMP, MG1, PHOS, CBCDIF ####[place] [address] [address] [place], [place] [phone] Polychromasia Slight Normal [facility] Comment on above: Performed By: #### P T, PTT, LACT, CMP, MG1, PHOS, CBCDIF ####[place] [address] AveCS[address] [place], [place] [phone] RBC Auto #/vol (Bld) 2.91 10*6/uL Low 4.20-6.00 Cl [facility] Comment on above: Performed By: #### P T, PTT, LACT, CMP, MG1, PHOS, CBCDIF ####[place] [address] [address] [place], [place] [phone] Target Cells Few Normal [facility] Comment on above: Performed By: #### P T, PTT, LACT, CMP, MG1, PHOS, CBCDIF ####[facility] [place], [place] [phone] Thyrotropin Qn Present Normal [facility] Comment on above: Performed By: #### P T, PTT, LACT, CMP, MG1, PHOS, CBCDIF ####[place] [address] [address] [place], [place] [phone] WBC Auto #/vol (Bld) 12.91 10*3/uL High 3.70-11.00 [facility] Comment on above: Performed By: #### P T, PTT, LACT, CMP, MG1, PHOS, CBCDIF ####[facility], [place] [phone] CNCRITCRon 11-03-2017 CNCRITCR Critical Care Transp ort (CCT) -HUNG PECK ([id number]) 1960 MDate Time Provider Department11/03/17 STACEY LOPEZ (JACQUES) CCT During your visit today, we recorded the following information about you:Stacey Lopez APRN.CNP 11/03/2017 4:13 PM Signed Critical Care Transport NotePatient Name: Hung Peck Service Date: 11/03/2017Referring Physician: Bubba Accepting Physician: Eren Facility: [facility] Accepting Facility:[facility]mainSUBJECTIVE/ CHIEF COMPLAINT: weaknessREASON FOR TRANSPORT: services not available at current facilityHistory of Present Illness: The following history is what was known to CCT teamat time of given care and summarized through review of available medicalrecords, patient/family interview and from referring physician and nursingreport.Hung Peck is a 57 year old male with a past medical historysignificant for Factor V Leiden deficiency on coumadin. He presented [facility] on 10/28 for evaluation of fever, weakness andconfusion. In July the patient had a right knee replacement. In August he wasadmitted to the hospital with a pseudomonal UTI. In September He was admitted withright leg pain and fever. He was taken to surgery for potential infectedprosthesis and found to have no signs of infection but a right thigh abscesswas noted. Cultures of both were negative. He was started vancomycin andceftriaxone but developed a rash. Antibiotics were changed to zyvox anddoxycycline. 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 On10/28, he developed fever again with lethargy,swelling of his face and legs,peeling skin and intermittent nausea. WBC was 23.2, INR was >19.5 and lactatewas 2.1. He was started on doxycycline and Zosyn for possible sepsis. Fluidsand norepinephrine were started for hypotension. He was mitchell-cultured which allresults have come back negative. Fluids and norepinephrine were weaned off andantibiotics were stopped by 10/30. He was found to have elevated LFTs andbilirubin- LFTs have trended down but bilirubin remains elevated.He thendeveloped a desquamating rash concerning for DRESS vs SJS/TEN. He was alsonoted to have worsening eosinophilia, worsening transaminitis, DAYNA,proteinuria. He was started on IV Methylpred 40mg daily with some improvementnoted. He is chronically anemic but the morning he was hypotensive andhemoglobin dropped to 5.4 fron the 7's. He was also hypoxemic requiringnon-rebreather. He was transfused today 2 units PRBCs and 2 units FFP ( he hadbeen transfused 2 units PRBCs and 2 units FFP also on day of admission 10/28). AcCT of the abdomen revealed a retroperitoneal hematoma. 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 At this time, the physician managing the patient [facility] and/or quaternaryservices unavailable at the referring facility. Air transport requested butweather not permitting and will go by ground transport.The physician managing the patient [facility] Critical CareTransport Team transport and treat the patient for the purpose of tertiarycare, evaluation, and management of his medical condition(s). Patient conditionat time of exam was: Acutely ill and critically ill. Due to the uniquecircumstances of the patient, it was determined that this was the closest, mostappropriate facility by referring physician.ROS: A complete review of systems was performed and is negative except asnotedPAST MEDICAL HISTORY: No past medical history on file.Per daughter: Factor V Leiden deficiencyPAST SURGICAL HISTORY: No past surgical history on file.Per daughter:right knee replacement 07/2017Exploration of right knee replacement 08/2017ALLERGIES: Linezolid; Vancomycin sulfaSOCIAL HISTORY:Social HistorySubstance Use Topics- Smoking status: Not on file- Smokeless tobacco: Not on file- Alcohol use Not on fileFAMILY HISTORY: No family history on file.HOME MEDICATIONS: No prescriptions on file.Per daughter: coumadin and doxycyclineMedications Administered by Referring Facility:AcidophilusMethylpr ednisoloneVitamin KOBJECTIVE:Recent Labs, Diagnostics AND Procedure Reports reviewed as available. Referring Facility LabsCBC: WBC 16.6k, Hgb 5.4, Hct 16.9, Plt 179KCHEMISTRY: Na 146, K 4.6, Cl 112, CO2 20, BUN 28, SCr 2.32 ( baseline 1.0), Nnb504Uhpfs: INR 7.8Liver Enzymes: Total bili 9.7, AST 284, ALT 428, Alk Phos 474 Diagnostics AND Procedure ReportsECG: normal sinus rhythmCXR: Mild atelectasis per reportCT Scan right femur: Right total knee arthroplasty; abscess involvingsuprapatellar space extending along vastus medialis muscle with associatedperiosteal reactionCT scan Abdomen: no report- per verbal , retroperitoneal bleed notedInvasive Lines/Devices/Tubes Placed by Referring Facility:PIC line right upper arm- placed 08/2017PIVPHYSICAL EXAM: Upon CCT Arrival at Referring FacilityVital Signs: HR 98bpm, BP 98/69mmHg, RR 20, SpO2 100%Oxygen/Ventilator Settings: 15 liters per non-rebreatherGeneral appearance: pleasant, cooperative, frail, chronically ill.HEENT: normocephalic, EOMI, PERRL. Oropharynx clear, no plaques orexudates,Posterior Oropharynx symmetric,Mucous membranes dryRespiratory: clear to auscultation bilaterally,no respiratory distress,callum,no rhonchi,no wheezing.Cardiovascular: no murmurs, no rubs, regular rate and rhythm, peripheral pulsessymmetric.Gastrointest inal: distended with left flank pain which increases withpalpation, no rebound or guarding noted.Genitourinary: deferredMusculoskeletal: No deformity; generalized weakness, pulses equal x4, 1+ lowerextremity edema to knees bilaterallySkin: dry, flaky, warm, dry, mildly jaundiced.Heme/Lymph: No unusual bruising notedNeurologic: Awake and oriented; no focal deficits noted, generalized weaknessCRITICAL CARE COURSEUpon bedside arrival at referring facility the patient was assessed anddetailed physical exam performed. Initial exam findings as described above. Thepatient was placed on the transport monitor and all transport equipmenttransitioned in standard fashion. The patient was transferred to the transportcot and transported to the Ambulance and loaded without incident. The patientwas medically managed, monitored, and reassessed during transport.Medications Managed AND Administered by CCT: noneProcedures Performed by CCT: noneASSESSMENT/PLAN: Hung Peck is a 57 year old male with PMH of factor VLeiden deficiency, recent knee replacement and episodes of fever andleukocytosis over the past 3 months. He now exhibits severe anemia, acutekidney injury, shock liver, continued coagulapathy with retroperitonealhematoma. He is being transferred for further workup for his complex diseaseprocess.Retroperitone al bleed- noted today on CT- 2 units PRBCs and 2 units FFP completed prior to our arrivalAcute respiratory distress- currently on 15 liters oxygen per non-rebreather and comfortableSupratherapeutic INR- has received a total of 4 units FFP this admission along with Vitamin K- continues to be supratherapeutic despite discontinuance of coumadin sincelast and above mentioned therapyElevated LFTs and bilirubin- ultrasound had been done which showed thickening of the gall bladder- LFTs improving but bilirubin remaining highAcute on chronic anemia- total of 4 unit of PRBCs given during this admissionLeukocytosis- all cultures negative so far- improved during this admissionPossible DRES syndrome- latest working diagnosis at OSH- started on methylprednisolone 10/30Factor V Leiden deficiency- is normally on coumadin for this but has been discontinued since last Acute kidney injury- elevated creatinine this admission with no improvementThe transport was completed without significant incident or change in thepatient's status. The patient was transported to the the [facility] by Surface (Ground) for tertiary and/or quaternary evaluation andmanagement of his Critical Medical condition(s).Upon arrival to the receiving facility, a [id number] report was given [facility] staff in G61 and Resident / PA / TUBE SPLICER: Damaris WALL. Patientcare was transferred. The patient condition was Chronically Ill and Acutely Illat the time of transfer.Vital Signs at time care transferred to the receiving facility unit:HR 84bpm, Rhythm sinus, BP 107/73 mmHg, RR 20, SpO2 100% on FiO2 15 liters pernon-rebreatherSPECIAL EQUIPMENT: NoneMODE OF TRANSPORT: Surface (Ground)CRITICAL CARE TIME:I personally performed 45 minutes of critical care timeexclusive of separately billable procedures, ambulance charges and treatingother patients. This was necessary to treat or prevent further deteriorationof the following condition(s): respiratory compromise and hemodynamiccompromise with potential forCardiovascular impairment, Respiratory impairment,METAL SORTER impairment, Shock and Severe metabolic abnormality which the patient hadand/or had a high probability of suddenly developing.SIGNATURE:Stacey Lopez APRN.CNPAcute Care Nurse PractitionerElyria Memorial Hospital Critical Care Transport TeamAllergies As of Date: 11/03/2017 Noted Allergy ReactionLINEZOLID 11/03/2017 2 - Rash Comments: Concern of DRESSVANCOMYCIN 11/03/2017 2 - Rash Comments: Concern of DRESSDate Reviewed: 11/03/2017Reviewed by: Екатерина StRn) JG Rosario - Fully AssessedReason for Visit: Critical Care Transport [1718]Problem List As Of Date 11/03/2017 Noted Resolved Retroperitoneal bleed [R58] INVALID FOR* More... DAYNA (acute kidney injury) (HCC) [N17.9] INVALID FOR* More... Elevated LFTs [R94.5] INVALID FOR* More... Factor V Leiden (HCC) [D68.51] INVALID FOR* More... Hypersensitivity reaction [T78.40XA] INVALID FOR* More... Anemia [D64.9] INVALID FOR* More... Supratherapeutic INR [R79.1] INVALID FOR* More...Follow-up and Disposition History RecordedEncounter Number: [id number] Status:Closed by STACEY LOPEZ CNP on 11/03/17 Normal [facility] CONSULT PROGon 11-03-2017 Protein mass conc HNO ID: [id number] thor: ALHAJI Blanca (Fel)ervice: RadiologyAuthor Type: FellowType: Consult Progress NoteFiled: 11/03/2017 7:19 PMNote Text:CONSULT: INTERVENTIONAL RADIOLOGY SERVICESERVICE DATE: 11/03/2017SERVICE TIME: 7:11 PMREASON FOR CONSULT: retroperitoneal hemorrhageREQUESTING PHYSICIAN: Vilma CordobaWOMAN'S HOSPITAL CARE PHYSICIAN: No primary care provider on file.SubjectiveMr. Peck is a 57 year old male who presents for retroperitonealhemorrhageRev iew patient's labs, vital signs, and CT abdomen from OSH.Patient was on coumadin, for PE and DVT. After FFP and vitamin K weregiven, INR 2.5, APTT 40.7. Continue correcting coagulation is necessary.2Unit RBC given. Patient is stable now, and Hb 8.1.IR suggests to continue correcting coagulation, closely observe patientfor now. Repeat CTA abdomen if hemodynamics decompensated.Discussed with Vilma Cordoba.Thank you for consultation.SIGNATURE: Nellie Chaudhary MD PATIENT NAME: Hung AhumadaoneDATE: November 03, 2017 : 7:11 PM PAGER: [phone] Normal [facility] CT OUTSIDE CD DICOM IMPORT - NBNRon 11-03-2017 CT OUTSIDE CD DICOM IMPORT -NBNR Images were obtained outside of [facility] [id number] Normal [facility] CT OUTSIDE CD DICOM IMPORT -NBNR * * *Final Report* * *DATE OF EXAM: Nov 03 2017 12:00AM OUT 0002 - CT OUTSIDE CD DICOM IMPORT -NBNR / REASON: Previous report is inadequate. * * * * Physician Interpretation * * * * EXAMINATION: OUTSIDE IMAGE INTERPRETATIONIndication for the Request / Reason for Overread: Previous report is inadequate.Specific Issue(s) Discussed: no readImages Reviewed: CT of abdomen and pelvis without contrast performed on 11/03/2017 12:00 AMImage Quality: technically adequate imagesOverread Date: 11/08/2017 9:55 AMMQ: Over_2Comparison: None of the abdomen and pelvis; comparison made to OSH right femur CT 11/07/2017Additional Clinical History: Presented to OSH on 10/28 with increased lethargy, swollen hands, face, tongue, new fever. In the ED he was found to have INR of 19.5.RESULT:Liver: No mass.Biliary: No bile duct dilation. Gallbladder present with circumferential mural edema, nonspecific.Spleen: No mass. No splenomegaly.Pancreas: UnremarkableAdrenals: No mass.Kidneys: Some curvilinear foci of increased attenuation along left upper pole calyces and infundibula, probably from hemorrhage. No radiopaque calculus. No hydronephrosis.GI tract: No dilated bowel.Lymph nodes: Scattered prominent lymph nodes in retroperitoneum. There are few mildly enlarged pelvic lymph nodes, such as a conglomerate measuring 1.5 x 5.1 cm in right external iliac chain. These are nonspecific, perhaps reactive.Mesentery/Peritoneu m: Some edematous changes along sigmoid mesocolon and caudal mesentery, perhaps reactive. Trace perihepatic ascites.Retroperitoneum: Multiple retroperitoneal collections with mixed internal attenuation, likely hyperdense and fluid components, probably blood products of various stages of evolution. Large collection in left retroperitoneum measures 9.2 x 1.4 cm in greatest axial dimension on 2:129. More cephalad, there is a 7.4 x 8.9 cm collection along the left posterior pararenal space on 2:90. There is a 3.8 x 2.8 cm right intramuscular collection in psoas muscle on 2:134.Vasculature: No abdominal aortic aneurysm.Pelvis: Urinary bladder partially distended, which exaggerates apparent wall thickness. No pelvic soft tissue mass. There is nonorganized fluid along extraperitoneal pelvis an presacral space, which may be from hemorrhage or reactive edema.Bones/Soft Tissues: Degenerative changes. No destructive osseous lesion.Lower thorax: Unremarkable bilateral pleural effusions with concomitant basilar atelectasis.IMPRESSION:MULTI FOCAL RETROPERITONEAL HEMORRHAGE DESCRIBED, PRESUMABLY FROM REPORTED SUPRA-THERAPEUTIC INR. FOLLOW UP IMAGING COULD BE OBTAINED IF INDICATED TO ENSURE RESOLUTION.ENLARGED RIGHT PELVIC LYMPH NODES, PROBABLY REACTIVE.NONSPECIFIC GALLBLADDER MURAL EDEMA, PERHAPS FROM VOLUME STATUS. Transcripti onist: PSCB Transcribe Date/Time: Nov 08 2017 9:55ADictated by : GEORGE RAMIREZ MDThis examination was interpreted and the report reviewed and electronically signed by: GEORGE RAMIREZ MD on Nov 08 2017 10:11AM EST Normal [facility] Comp Metabolic Panelon 11-03 Albumin mass conc 1.7 g/dL Low 3.9-4.9 [facility] Comment on above: Performed By: #### P T, PTT, LACT, CMP, MG1, PHOS, CBCDIF ####[facility] [place], [place] [phone] ALP enzyme act/vol 424 U/L High 36-108 [facility] Comment on above: Performed By: #### P T, PTT, LACT, CMP, MG1, PHOS, CBCDIF ####[facility] [place], [place] [phone] ALT enzyme act/vol 294 U/L High 10-54 [facility] Comment on above: Performed By: #### P T, PTT, LACT, CMP, MG1, PHOS, CBCDIF ####[place] [address] AveCSan [place], [place] [phone] Anion gap 3 molar conc 14 mmol/L Normal 9-18 Cl [facility] Comment on above: Performed By: #### P T, PTT, LACT, CMP, MG1, PHOS, CBCDIF ####[address], [place] [phone] AST enzyme act/vol 208 U/L High 14-40 [facility] Comment on above: Performed By: #### P T, PTT, LACT, CMP, MG1, PHOS, CBCDIF ####[address], [place] [phone] Bilirubin mass conc 10.8 mg/dL High 0.2-1.3 [facility] Comment on above: Performed By: #### P T, PTT, LACT, CMP, MG1, PHOS, CBCDIF ####[address] [phone] Calcium mass conc 8.1 mg/dL Low 8.5-10.2 [facility] Comment on above: Performed By: #### P T, PTT, LACT, CMP, MG1, PHOS, CBCDIF ####[address] [phone] Chloride molar conc 110 mmol/L High 97-105 [facility] Comment on above: Performed By: #### P T, PTT, LACT, CMP, MG1, PHOS, CBCDIF ####[place] [address]CS[address], [place] [phone] CO2 molar conc 19 mmol/L Low 22-30 [facility] Comment on above: Performed By: #### P T, PTT, LACT, CMP, MG1, PHOS, CBCDIF ####[place] [address], [place] [phone] Creatinine mass conc 2.48 mg/dL High 0.73-1.22 [facility] Comment on above: Performed By: #### P T, PTT, LACT, CMP, MG1, PHOS, CBCDIF ####[facility] [address] [place], [place] [phone] eGFR- Amer. 33 [facility] Comment on above: Performed By: #### P T, PTT, LACT, CMP, MG1, PHOS, CBCDIF ####[facility] [address] [place], [place] [phone] GFR/1.73 sq M predicted among non-blacks MDRD vol rate/area (S/P/Bld) 27 . Normal [facility] Comment on above: Result Comment: eGFR (Estimated GFR) Units of measure: mL/min/1.73 meters squaredeGFR is derived from the reexpressed MDRD Study equation using the following parameters: serum creatinine, age, gender and race. The creatinine assay has been calibrated to be traceable to IDMS.An eGFR <60 mL/min/1.73m2 for >3 months is consistent with chronic kidney disease. Refer to KDOQI guidelines for clinical interpretation.In patients with unstable renal function, e.g. those with acute kidney injury, the eGFR may not accurately reflect actual GFR. Performed By: #### P T, PTT, LACT, CMP, MG1, PHOS, CBCDIF ####[facility] [address] [place], [place] [phone] Glucose mass conc 102 mg/dL High 74-99 [facility] Comment on above: Result Comment: The [place] Diabetes Association (ADA) provides guidance for cutoff values for fasting glucose and random glucose. The ADA defines fasting as no caloric intake for at least 8 hours. Fasting plasma glucose results between 100 to 125 mg/dL indicate increased risk for diabetes (prediabetes).Fasting plasma glucose results greater than or equal to 126 mg/dL meet the criteria for diagnosis of diabetes. In the absence of unequivocal hyperglycemia, results should be confirmed by repeat testing. In a patient with classic symptoms of hyperglycemia or hyperglycemic crisis, random plasma glucose results greater than or equal to 200 mg/dL meet the criteria for diagnosis of diabetes.Reference: Standards of Medical Care in Diabetes 2016, [place] Diabetes Association. Diabetes Care. 2016.39(Suppl 1). Performed By: #### P T, PTT, LACT, CMP, MG1, PHOS, CBCDIF ####[place] [address], [place] [phone] Potassium molar conc 5.0 mmol/L Normal 3.7-5.1 [facility] Comment on above: Performed By: #### P T, PTT, LACT, CMP, MG1, PHOS, CBCDIF ####[address] [phone] Protein mass conc 6.5 g/dL Normal 6.3-8.0 [facility] Comment on above: Performed By: #### P T, PTT, LACT, CMP, MG1, PHOS, CBCDIF ####[address] [phone] Sodium molar conc 143 mmol/L Normal 136-144 [facility] Comment on above: Performed By: #### P T, PTT, LACT, CMP, MG1, PHOS, CBCDIF ####[address] [phone] Urea nitrogen mass conc 32 mg/dL High 9-24 [facility] Comment on above: Performed By: #### P T, PTT, LACT, CMP, MG1, PHOS, CBCDIF ####[address] [phone] Confirm Blood Typeon 018 ABO/RH(D) Positive Normal [facility] Comment on above: Performed By: #### P T, PTT, LACT, CMP, MG1, PHOS, CBCDIF ####[address] [phone] GASV + ALLon 11-03-2017 Base Excess Negative Normal [facility] Comment on above: Performed By: #### V ALLBG ####[place] [address] [place] [phone] Body temperature 98.6 [degF] Normal [facility] Comment on above: Performed By: #### V ALLBG ####[place] [address] [place] [phone] Calcium mass conc 1.18 mmol/L Normal 1.08-1.30 [facility] Comment on above: Performed By: #### V ALLBG ####[address] [place] [phone] Carboxyhemoglobin,Jovani 0.7 % Normal <2.0 [facility] Comment on above: Performed By: #### V ALLBG ####[place] [address] [place] [phone] CO2 molar conc 21 mmol/L Low 25-29 [facility] Comment on above: Performed By: #### V ALLBG ####[place] [address] [phone] Glucose mass conc 101 mg/dL Normal 60-105 [facility] Comment on above: Performed By: #### V ALLBG ####[place] [address] [place] [phone] HCO3 molar conc (Bld) 20 mmol/L Low 24-28 [facility] Comment on above: Performed By: #### V ALLBG ####[place] [address] [place] [phone] Hematocrit Auto Volume Fraction (Bld) 19 % Low 39.0-51.0 [facility] Comment on above: Performed By: #### V ALLBG ####[place] [address] [phone] Hemoglobin mass conc (Bld) 6.0 g/dL Low 13.0-17.0 [facility] Comment on above: Performed By: #### V ALLBG ####[place] [address] [phone] Lactate molar conc 4.7 mmol/L High 0.5-2.2 [facility] Comment on above: Performed By: #### V ALLBG ####[place] [address] [phone] Methemoglobin 1.0 % Normal 0.4-1.5 [facility] Comment on above: Performed By: #### V ALLBG ####[place] [address] [phone] Oxygen ppres (BldA) 29 mm Hg Low 35-45 [facility] Comment on above: Performed By: #### V ALLBG ####[place] [address] [phone] Oxyhemoglobin, Jovani. 48 % Low 60-85 [facility] Comment on above: Performed By: #### V ALLBG ####[place] [address] [phone] pCO2 34 mm Hg Low 42-55 [facility] Comment on above: Performed By: #### V ALLBG ####[place] [address] [phone] pCO2, Temp Correct 34 mm Hg Normal [facility] Comment on above: Performed By: #### V ALLBG ####[place] [address] [phone] pH (Bld) 7.38 [pH] Normal 7.32-7.42 [facility] Comment on above: Performed By: #### V ALLBG ####[place] [address] [phone] pH, Temp Corrected 7.38 Normal 7.32-7.42 [facility] Comment on above: Performed By: #### V ALLBG ####[facility] [address] [place], [place] [phone] pO2, Temp Corrected 29 mm Hg Normal [facility] Comment on above: Performed By: #### V ALLBG ####[facility] [address], [place] [phone] Potassium molar conc 4.8 mmol/L Normal 3.5-5.0 [facility] Comment on above: Performed By: #### V ALLBG ####[facility], [place] [phone] Sodium molar conc 143 mmol/L Normal 135-146 [facility] Comment on above: Performed By: #### V ALLBG ####[facility] [place], [place] [phone] HISTORY PHYSICALon 8 HISTORY PHYSICAL HNO ID: [id number] thor: Tasia Galeas, MDService: Critical CareAuthor Type: PhysicianType: HANDPFiled: 11/03/2017 11:54 PMNote Text:HISTORY AND PHYSICAL EXAMINATIONSERVICE DATE: 11/03/2017PRIMARY CARE PHYSICIAN: No primary care provider on file.SubjectiveCHIEF COMPLAINT: Hemorrhagic shock 2/2 RP BleedHPI: This is a 57 year old male who presents with concern for RP bleed andDRESS Syndrome.His pmhx is significant for:- Factor V Leiden c/b DVT and PE on coumadin- Right Total Knee Replacement 07/2017 c/b Pseudomonas UTI infection08/2017, reexploration 08/2017 d/t concern of joint infection. Negative forjoint infection, but found to have R. Thigh Abscess and d/c'ed onCeftriaxone and Vanco. All cultures have been negative.- Re-admitted to OS in 09/2017 with fever and rash, concern for allergy toVanco. Antibiotics changed to Zyvox and Doxycycline PO and patient wasdischarged. Rash worsened, patient saw outpatient provider who wasconcerned for allergy to Zyvox, Zyvox was d/c'ed 10/19 d/t concern of SJS.Patient was continued on PO Doxycycline.Presented to OSH on 10/28 with increased lethargy, swollen hands, face,tongue, new fever. In the ED he was found to have INR of 19.5. He wasgiven Vit K and his coumadin was held. He was also noted to havetransaminitis. CT of the right lower extremity demonstrated again aconcern for abscess and was started on doxycyline and Zosyn. He was notedto be hypotensive, with sbp ~100's, received 3.5L of fluid and started onnorepi. He was admitted to the MICU for treatment of septic shock. Heremained on Doxy and Zosyn and transiently on pressor support fortreatment of treatment of abscess. All of his cultures were negative. Stan developed a desquamating rash concerning for DRESS vs SJS/TEN. He wasalso noted to have worsening eosinophilia, worsening transaminitis, DAYNA,proteinuria. All of his antibiotics were stopped and he was started onIV Methylpred 40mg daily. The patient continued to improve. His liverenzymes peaked on 10/31 with AST 2034/ ALT 863/ Alk Phos 553 and sCr peakedat 2.57. Except his t-bili continued. General surgery evaluated him d/tthickened gallbladder and pericholecystic fluid and did not think he hadacute cholecystitis.He had a CT a/p on 11/03 and there was concern for R/P bleed. He was foundto have a hgb of 5.4 and received 2 units of PRBC and 2 of FFP for an INRof 7.9. He was transferred to [facility] for further management. ONadmission, he was HDS, not on pressors. He was placed on 50% VM.No past medical history on file.No past surgical history on file.No family history on file.Social HistorySubstance Use Topics- Smoking status: Not on file- Smokeless tobacco: Not on file- Alcohol use Not on fileNo prescriptions prior to admission.ALLERGIESAllergies not on fileCOMPLETE REVIEW OF SYSTEMS:GENERAL: No weight loss, malaise or feversRESPIRATORY: Negative for cough, hemoptysis, wheezing, COPD, dyspnea orshortness of breathCARDIOVASCULAR: Negative for chest pain, leg swelling, hypertension, CHFor palpitationsGI: No nausea, vomiting, or diarrheaMUSCULOSKELETAL: Negative for joint pain or swelling, back pain or musclepainSKIN: (+) Rash that's improvingNEURO: No history of headaches, syncope, paralysis, seizures or tremorsObjectivePHYSICAL EXAM:Physical Exam Performed:GENERAL: Alert, no distress, cooperativeSKIN: No erythema noted. But sloughing on face.OROPHARYNX: Lips, mucosa, and tongue normal. Teeth and gums normal.Oropharynx normal.LUNGS: Lungs clear to auscultation, Good diaphragmatic excursionCARDIAC: Normal rate and rhythmABDOMEN: Abdomen soft, non-tender, BS normal, No masses or organomegalyEXTREMITIES: Extremities normal, no deformities, edema, clubbing or skindiscoloration. Good capillary refill., No ulcersPULSES: 2+ radial, 2+ dorsalis pedisThere were no vitals taken for this visit.DATA:Diagnostic tests reviewed for today's visit:Most recent labs and imaging results.Assessment/PlanActiv e Hospital Problems as of 11/03/2017 Noted - Resolved Pulmonary Acute respiratory failure with hypoxia (HCC) 11/03/2017 - Present Current Assessment AND Plan Assessment:- 50% VM on admission- no known O2 requirements at homePLAN:- CXR- wean O2 as able Gastrointestinal Elevated LFTs 11/03/2017 - Present Current Assessment AND Plan Assessment: ? Secondary to DRESS. US (11/01) thickened GB wall with asmall amt of pericholecystic fluid. Mild hepatomegaly with with mild fattyinfiltration. Evaluated by surg at OSH with no recommended intervention.PLAN:- Trend LFTs- send acute hep panel- RUQ u/s- requesting outpatient records for past 2 months to see hepatic trend Retroperitoneal bleed 11/03/2017 - Present Current Assessment AND Plan Assessment: OSH CT A/P (11/03) with RP bleed in setting ofsupratherapeutic INR- INR on admission to OSH 10/28 >19.5. S/p 3 units of FFP- INR on 11/03 prior to transfer 7.4 received 2 units of FPPPLAN:- Consult IR, images reviewed with IR, it is a venous bleed, will monitorfor now given that patient is HDS- Correct coagulopathy Nephrology DAYNA (acute kidney injury) ([facility]) 11/03/2017 - Present Current Assessment AND Plan Assessment: Nonoliguric DAYNA/ATN secondary to hemodynamic instability vsDRESS syndrome. Normal SCr at baseline. SCr peaked at OSH (10/30) at 2.7PLAN:- Strict IANDO's. Trend BMP. Hematology Anemia 11/03/2017 - Present Current Assessment AND Plan Assessment: Secondary to RP bleedPLAN:- Trend CBC. Blood product support as needed. Factor V Leiden ([facility]) 11/03/2017 - Present Current Assessment AND Plan Assessment: H/o Factor V Leiden with h/o PE/DVT on coumadin.Supratherapetic INR of 19 on presentation to OSH 10/28.PLAN:- Holding anticoagulation in setting of supratherapeutic INR and anemia- will correct coagulopathy given new RP bleed Supratherapeutic INR 11/03/2017 - Present Current Assessment AND Plan Assessment: S/p vitamin K and 5 units FFP at OSH. Persistentsupratherapeutic INR thought to be secondary to liver dysfunctionPLAN:- Monitor INR.- Correct coagulopathy Allergy/Immunology Hypersensitivity reaction 11/03/2017 - Present Current Assessment AND Plan Assessment: Suspected DRESS at OSH with fever, desquamating rash,peripheral eosinophilia, DAYNA, hepatitis in setting of vanc therapy in08/2017 for thigh abscessPLAN:- Supportive management- Continue Methylprednisolone 40 mg daily- Consult dermMedication and Non-Pharmacologic VTE Prophylaxis/AnticoagulantsVT E Prophylaxis: Contraindicated Elevated INRSIGNATURE: Vilma Cordoba PA-C PATIENT NAME: Hung AhumadaoneDATE: November 03, 2017 : 1:15 PM PAGER/CONTACT #: [phone] STAFF PHYSICIAN NOTE OF PERSONAL INVOLVEMENT IN CAREI have reviewed the note obtained and documented. I have personallyparticipated in the madrigal components. I have discussed the case andmanagement of the patient's care with the team including the ICU fellow.The following comments revise or confirm relevant madrigal components of thenote.?57yo with complicated medical history as detailed in note transferredfrom [facility] for ongoing management of RPB in setting of warfarin use andrecent supratherapeutic INR.Agree with exam above.??IMPRESSION/PLAN:?Pat ient Active Hospital Problem List: Retroperitoneal bleed (11/03/2017) DAYNA (acute kidney injury) (HCC) (11/03/2017) Elevated LFTs (11/03/2017) Factor V Leiden (HCC) (11/03/2017) Hypersensitivity reaction (11/03/2017) Anemia (11/03/2017) Supratherapeutic INR (11/03/2017)???Reverse anticoagulationTrend HbContinue steroidsWean oxygen, CXRRUQ US?This patient has a high probability of sudden, clinically significantdeterioration, which requires the highest level of physician preparednessto intervene urgently. I managed/supervised life or organ supportinginterventions that required frequent physician assessment. I devoted myfull attention to the direct care of this patient for the amount of timeindicated below. Time I spent with family or surrogate(s) is includedonly if the patient was incapable of providing the necessary informationor participating in medical decision making. Time devoted to teaching andto any procedures I billed separately is not included.?Critical Care Documentation: The patient has the following organ/systemimpairment(s): Coagulopathy and Complex life-threatening medicalproblem(s)?Time spent providing critical care services: 30 minutes.?SIGNATURE: Tasia Galeas MD PHDOHIOHEALTH RIVERSIDE METHODIST HOSPITALTICAL CARE MEDICINEDATE of SERVICE: November 03, 2017 Normal [facility] Hepatitis Acute RNAon 2017 Body surface area Derived from formula Negative Normal Negative [facility] Comment on above: Performed By: #### P T, PTT, LACT, CMP, MG1, PHOS, CBCDIF ####[facility] [address] [place], [place] [phone] Hep B Core Ab, IgM Negative Normal Negative [facility] Comment on above: Performed By: #### P T, PTT, LACT, CMP, MG1, PHOS, CBCDIF ####[facility] [place], [place] [phone] Hepatitis A Ab IgM Negative Normal Negative [facility] Comment on above: Performed By: #### P T, PTT, LACT, CMP, MG1, PHOS, CBCDIF ####[address] [phone] Hepatitis C RNA HCV RNA not detected by PCR. Normal [facility] Comment on above: Result Comment: Refe rence Range: Negative for HCV RNAThe Linear Range of this assay is 15 IU/mL to 100,000,000 IU/mL. Performed By: #### P T, PTT, LACT, CMP, MG1, PHOS, CBCDIF ####[address] [phone] Hepatitis Remote Panelon Hep B Core Ab,Total Negative Normal Negative [facility] Comment on above: Performed By: #### P T, PTT, LACT, CMP, MG1, PHOS, CBCDIF ####[address] [phone] Hepatitis C Ab IA Positive Critically abnormal Negative [facility] Comment on above: Result Comment: Conf irmation with Hepatitis C RNA has been ordered and charged. Performed By: #### P T, PTT, LACT, CMP, MG1, PHOS, CBCDIF ####[address] [phone] HepB Surface Ab,Qual Positive Critically abnormal Negative [facility] Comment on above: Result Comment: Thes e results are consistent with previous exposure and/or immunity to the hepatitis B virus antigen. Performed By: #### P T, PTT, LACT, CMP, MG1, PHOS, CBCDIF ####[address] [phone] Lactateon 11-03-2017 Lactate molar conc 4.9 mmol/L High 0.5-2.2 [facility] Comment on above: Performed By: #### P T, PTT, LACT, CMP, MG1, PHOS, CBCDIF ####[address] [phone] Magnesiumon 11-03-2017 Magnesium mass conc 2.2 mg/dL Normal 1.7-2.3 [facility] Comment on above: Performed By: #### P T, PTT, LACT, CMP, MG1, PHOS, CBCDIF ####[facility] [address] [place], [place] [phone] PROGRESSon 11-03-2017 Protein mass conc HNO ID: [id number] thor: Stacey Everett ([facility]) PrewittService: (none)Author Type: Nurse PractitionerType: Progress NotesFiled: 11/03/2017 4:13 PMNote Text: Critical Care Transport NotePatient Name: Hung Peck Service Date: 11/03/2017Referring Physician: Bubba Accepting Physician: Eren Facility: [facility] AcceptingFacility: [facility]-mainSUBJECTIVE/CHIEF COMPLAINT: weaknessREASON FOR TRANSPORT: services not available at current facilityHistory of Present Illness: The following history is what was known to [facility] at time of given care and summarized through review of availablemedical records, patient/family interview and from referring physician andnursing report.Hung Peck is a 57 year old male with a past medical historysignificant for Factor V Leiden deficiency on coumadin. He presented [facility] on 10/28 for evaluation of fever, weakness andconfusion. In July the patient had a right knee replacement. In August hewas admitted to the hospital with a pseudomonal UTI. In September He wasadmitted with right leg pain and fever. He was taken to surgery forpotential infected prosthesis and found to have no signs of infection buta right thigh abscess was noted. Cultures of both were negative. He wasstarted vancomycin and ceftriaxone but developed a rash. Antibiotics werechanged to zyvox and doxycycline. Zyvox was stopped due to concern forStevens-Alan syndrome. On 10/28, he developed fever again withlethargy,swelling of his face and legs, peeling skin and intermittentnausea. WBC was 23.2, INR was >19.5 and lactate was 2.1. He was started ondoxycycline and Zosyn for possible sepsis. Fluids and norepinephrine werestarted for hypotension. He was mitchell-cultured which all results have comeback negative. Fluids and norepinephrine were weaned off and antibioticswere stopped by 10/30. He was found to have elevated LFTs and bilirubin-LFTs have trended down but bilirubin remains elevated.He then developed adesquamating rash concerning for DRESS vs SJS/TEN. He was also noted tohave worsening eosinophilia, worsening transaminitis, DAYNA, proteinuria. Hewas started on IV Methylpred 40mg daily with some improvement noted. He ischronically anemic but the morning he was hypotensive and hemoglobindropped to 5.4 fron the 7's. He was also hypoxemic requiringnon-rebreather. He was transfused today 2 units PRBCs and 2 units FFP ( hehad been transfused 2 units PRBCs and 2 units FFP also on day of admission10/28). Ac CT of the abdomen revealed a retroperitoneal hematoma. There isconcern for DRES syndrome. At this time, the physician managing thepatient [facility]ti[facility] and/or quaternary services unavailable at the referring facility.Air transport requested but weather not permitting and will go by groundtransport.The physician managing the patient requested the [facility] CriticalCare Transport Team transport and treat the patient for the purpose oftertiary care, evaluation, and management of his medical condition(s).Patient condition at time of exam was: Acutely ill and critically ill. Dueto the unique circumstances of the patient, it was determined that thiswas the closest, most appropriate facility by referring physician.ROS: A complete review of systems was performed and is negative except asnotedPAST MEDICAL HISTORY: No past medical history on file.Per daughter: Factor V Leiden deficiencyPAST SURGICAL HISTORY: No past surgical history on file.Per daughter:right knee replacement 07/2017Exploration of right knee replacement 08/2017ALLERGIES: Linezolid; Vancomycin sulfaSOCIAL HISTORY:Social HistorySubstance Use Topics- Smoking status: Not on file- Smokeless tobacco: Not on file- Alcohol use Not on fileFAMILY HISTORY: No family history on file.HOME MEDICATIONS: No prescriptions on file.Per daughter: coumadin and doxycyclineMedications Administered by Referring Facility:AcidophilusMethylpr ednisoloneVitamin KOBJECTIVE:Recent Labs, Diagnostics AND Procedure Reports reviewed as available. Referring Facility LabsCBC: WBC 16.6k, Hgb 5.4, Hct 16.9, Plt 179KCHEMISTRY: Na 146, K 4.6, Cl 112, CO2 20, BUN 28, SCr 2.32 ( baseline1.0), Glu 115Coags: INR 7.8Liver Enzymes: Total bili 9.7, AST 284, ALT 428, Alk Phos 474 Diagnostics AND Procedure ReportsECG: normal sinus rhythmCXR: Mild atelectasis per reportCT Scan right femur: Right total knee arthroplasty; abscess involvingsuprapatellar space extending along vastus medialis muscle with associatedperiosteal reactionCT scan Abdomen: no report- per verbal , retroperitoneal bleed notedInvasive Lines/Devices/Tubes Placed by Referring Facility:PIC line right upper arm- placed 08/2017PIVPHYSICAL EXAM: Upon CCT Arrival at Referring FacilityVital Signs: HR 98bpm, BP 98/69mmHg, RR 20, SpO2 100%Oxygen/Ventilator Settings: 15 liters per non-rebreatherGeneral appearance: pleasant, cooperative, frail, chronically ill.HEENT: normocephalic, EOMI, PERRL. Oropharynx clear, no plaques orexudates,Posterior Oropharynx symmetric,Mucous membranes dryRespiratory: clear to auscultation bilaterally,no respiratory distress,callum,no rhonchi,no wheezing.Cardiovascular: no murmurs, no rubs, regular rate and rhythm, peripheralpulses symmetric.Gastrointestinal: distended with left flank pain which increases withpalpation, no rebound or guarding noted.Genitourinary: deferredMusculoskeletal: No deformity; generalized weakness, pulses equal x4, 1+lower extremity edema to knees bilaterallySkin: dry, flaky, warm, dry, mildly jaundiced.Heme/Lymph: No unusual bruising notedNeurologic: Awake and oriented; no focal deficits noted, generalizedweaknessCRITICAL CARE COURSEUpon bedside arrival at referring facility the patient was assessed anddetailed physical exam performed. Initial exam findings as describedabove. The patient was placed on the transport monitor and all transportequipment transitioned in standard fashion. The patient was transferred tot transport cot and transported to the Ambulance and loaded withoutincident. The patient was medically managed, monitored, and reassessedduring transport.Medications Managed AND Administered by CCT: noneProcedures Performed by CCT: noneASSESSMENT/PLAN: Hung Peck is a 57 year old male with PMH offactor V Leiden deficiency, recent knee replacement and episodes of feverand leukocytosis over the past 3 months. He now exhibits severe anemia,acute kidney injury, shock liver, continued coagulapathy withretroperitoneal hematoma. He is being transferred for further workup forhis complex disease process.Retroperitoneal bleed- noted today on CT- 2 units PRBCs and 2 units FFP completed prior to our arrivalAcute respiratory distress- currently on 15 liters oxygen per non-rebreather and comfortableSupratherapeutic INR- has received a total of 4 units FFP this admission along with Vitamin K- continues to be supratherapeutic despite discontinuance of coumadinsince last and above mentioned therapyElevated LFTs and bilirubin- ultrasound had been done which showed thickening of the gall bladder- LFTs improving but bilirubin remaining highAcute on chronic anemia- total of 4 unit of PRBCs given during this admissionLeukocytosis- all cultures negative so far- improved during this admissionPossible DRES syndrome- latest working diagnosis at OSH- started on methylprednisolone 10/30Factor V Leiden deficiency- is normally on coumadin for this but has been discontinued since Acute kidney injury- elevated creatinine this admission with no improvementThe transport was completed without significant incident or change in thepatient's status. The patient was transported to the the [facility] by Surface (Ground) for tertiary and/or quaternary evaluationand management of his Critical Medical condition(s).Upon arrival to the receiving facility, a [id number] report [facility] and Resident / PA / TUBE SPLICER: Damaris WALL.Patient care was transferred. The patient condition was Chronically Illand Acutely Ill at the time of transfer.Vital Signs at time care transferred to the receiving facility unit:HR 84bpm, Rhythm sinus, BP 107/73 mmHg, RR 20, SpO2 100% on FiO2 15 litersper non-rebreatherSPECIAL EQUIPMENT: NoneMODE OF TRANSPORT: Surface (Ground)CRITICAL CARE TIME:I personally performed 45 minutes of critical care time exclusive of separately billable procedures, ambulance charges andtreating other patients. This was necessary to treat or prevent furtherdeterioration of the following condition(s): respiratory compromise andhemodynamic compromise with potential forCardiovascular impairment,Respiratory impairment, METAL SORTER impairment, Shock and Severe metabolicabnormality which the patient had and/or had a high probability ofsuddenly developing.SIGNATURE:Stacey Lopez APRN.CNPAcute Care Nurse PractitionerElyria [facility] Hospital Critical Care Transport Team Normal [facility] Phosphoruson 11-03-2017 Phosphate mass conc 6.9 mg/dL High 2.7-4.8 [facility] Comment on above: Performed By: #### P T, PTT, LACT, CMP, MG1, PHOS, CBCDIF ####[facility] [place], [place] [phone] Protimeon 11-03-2017 INR Coag RelTime (Bld) 2.5 {INR} High 0.9-1.3 [facility] Comment on above: Result Comment: Nini min K Antagonist (VKA) Therapeutic Range: INR 2 to 3 (Target INR of 2.5)Note: For patients treated with VKA drugs, such as warfarin, the [employer] 2012 Guideline recommends a therapeutic INR range of 2 to 3 (target INR of 2.5). This recommendation includes high-risk patients with antiphospholipid syndrome with previous arterial or venous thromboembolism, current-generation mechanical or bioprosthetic aortic heart valve replacement.Note: Patients with mechanical aortic valve replacement and additional risk factors for thromboembolic events (atrial fibrillation, previous thromboembolism, LV dysfunction, hypercoagulable conditions) or an older generation mechanical AVR (i.e., ball in-Cage) or any mechanical MVR should have a INR therapeutic range of 2.5 to 3.5 (target INR of 3).Raghav GH, et al. Chest 2012, 141:7S-47SNishimura RA, et al. [facility] 2017, 70: 252-289 Performed By: #### P T, PTT, LACT, CMP, MG1, PHOS, CBCDIF ####[facility] [address] [place], [place] [phone] PT Sec 24.8 sec High 9.7-13.0 [facility] Comment on above: Performed By: #### P T, PTT, LACT, CMP, MG1, PHOS, CBCDIF ####[facility] [place], [place] [phone] SR-Abdomen/Pel W ORAL Cont O nly IMPORTon 11-03-2017 SR-Abdomen/Pel W ORAL Cont Only IMPORT Images were obtained outside of [facility] [id number] Normal [facility] Staph aureus PCRon 8 MRSA PCR Negative Normal [facility] Comment on above: Performed By: #### P T, PTT, LACT, CMP, MG1, PHOS, CBCDIF ####[facility] [place], [place] [phone] S aureus Spec Source Nasal Normal [facility] Comment on above: Performed By: #### P T, PTT, LACT, CMP, MG1, PHOS, CBCDIF ####[facility], [place] [phone] Staph aureus PCR Negative Normal [facility] Comment on above: Performed By: #### P T, PTT, LACT, CMP, MG1, PHOS, CBCDIF ####[facility], [place] [phone] Type and Screenon 11-03-2017 ABO/RH(D) Positive Normal [facility] Comment on above: Performed By: #### P T, PTT, LACT, CMP, MG1, PHOS, CBCDIF ####[facility] [address] [place], [place] [phone] Antibody Screen Negative Normal [facility] Comment on above: Performed By: #### P T, PTT, LACT, CMP, MG1, PHOS, CBCDIF ####[facility] [address] [place], [place] [phone] US ABD LIVER VASCULARon 10-22 US ABD LIVER VASCULAR * * *Final Report* * *DATE OF EXAM: Nov 03 2017 7:32PM U 1233 - US ABD LIVER VASCULAR / REASON: Liver disease, chronic, fibrosis suspected * * * * Physician Interpretation * * * * LIVER VASCULAR ULTRASOUND WITH DOPPLER IMAGINGHISTORY: 57-year-old male with history of retroperitoneal bleed and elevated LFTs.COMPARISON: None.TECHNIQUE: Sonography of the liver with color and spectral Doppler imaging of the hepatic vasculature was performed. Images were obtained and stored in a permanent archive.RESULT:SONOGRAPHIC FINDINGS:Pancreas: Normal sonographic appearance where visualized. Portions obscured: Tail.Liver: Echotexture: Normal, homogeneous. Echogenicity: Normal Surface contour: Smooth Lesions: 0.6 cm left hepatic lobe cyst.Biliary: No intrahepatic biliary duct dilation. CBD: 0.4 cm at the hilum. Gallbladder: Nonspecific gallbladder wall thickening, likely secondary to ascites.Right Kidney: No hydronephrosis. Measures 14.8 cm in length.Spleen: The craniocaudal length of the spleen is 9.2 cm, normal. There are no splenic lesions.Other: Small volume abdominal ascites. Bilateral pleural effusions. There is a 19.6 x 9.7 x 10.5 cm heterogeneously hypoechoic, complex collection extending along the posterior left lower quadrant, likely correlating with reported hematoma.HEPATIC VASCULATURE:PORTAL SYSTEM: -Splenic Vein: Patent with antegrade flow (towards the liver). -Main PV: Patent with normal, phasic antegrade flow (towards liver). 38 cm/sec -Right anterior PV: Patent with phasic antegrade flow (towards liver). -Right posterior PV: Patent with phasic antegrade flow (towards liver). -Left PV: Patent with phasic antegrade flow (towards liver).Splenorenal shunt: NoRecannulized paraumbilical vein: NoHEPATIC ARTERIES: - Main COLLAZO: Brisk up-stroke with increased diastolic flow PSV: 158 cm/sec. RI: 0.59 - Right anterior COLLAZO: Brisk up-stroke with increased diastolic flow - Right posterior COLLAZO: Brisk up-stroke with increased diastolic flow - Left COLLAZO: Brisk up-stroke with increased diastolic flowHepatic Veins: -Left: Patent with triphasic waveform. -Middle: Patent with triphasic waveform. -Right: Patent with triphasic waveform.IVC: Patent with normal, phasic waveform where visualized.IMPRESSION:PATENT HEPATIC VASCULATURE WITH APPROPRIATELY DIRECTED FLOW.UNREMARKABLE SONOGRAPHIC APPEARANCE OF THE LIVER.LARGE COMPLEX COLLECTION ALONG THE POSTERIOR LEFT LOWER QUADRANT, COMPATIBLE WITH PATIENT'S KNOWN RETROPERITONEAL HEMATOMA.SMALL VOLUME ASCITES.BILATERAL PLEURAL EFFUSIONS.URGENT RESULTS: Findings of large retroperitoneal hematoma communicated with Vilma Moreirarupalijose angel on 11/03/2017 at 20:54.Security Operations Center Operator: MARGARITA Transcribe Date/Time: Nov 03 2017 8:02PDictated by : Garth DOMINGUEZ examination was interpreted and the report reviewed and electronically signed by: CORDELL AMAYA DO on Nov 03 2017 11:35PM [id number] Normal [facility] US DOPPLER COMPLETEon 2017 US DOPPLER COMPLETE * * *Final Report* * *DATE OF EXAM: Nov 03 2017 7:32PM [facility] 1033 - US DOPPLER COMPLETE / REASON: Abd pain, acute, no prior med hx * * * * Physician Interpretation * * * * LIVER VASCULAR ULTRASOUND WITH DOPPLER IMAGINGHISTORY: 57-year-old male with history of retroperitoneal bleed and elevated LFTs.COMPARISON: None.TECHNIQUE: Sonography of the liver with color and spectral Doppler imaging of the hepatic vasculature was performed. Images were obtained and stored in a permanent archive.RESULT:SONOGRAPHIC FINDINGS:Pancreas: Normal sonographic appearance where visualized. Portions obscured: Tail.Liver: Echotexture: Normal, homogeneous. Echogenicity: Normal Surface contour: Smooth Lesions: 0.6 cm left hepatic lobe cyst.Biliary: No intrahepatic biliary duct dilation. CBD: 0.4 cm at the hilum. Gallbladder: Nonspecific gallbladder wall thickening, likely secondary to ascites.Right Kidney: No hydronephrosis. Measures 14.8 cm in length.Spleen: The craniocaudal length of the spleen is 9.2 cm, normal. There are no splenic lesions.Other: Small volume abdominal ascites. Bilateral pleural effusions. There is a 19.6 x 9.7 x 10.5 cm heterogeneously hypoechoic, complex collection extending along the posterior left lower quadrant, likely correlating with reported hematoma.HEPATIC VASCULATURE:PORTAL SYSTEM: -Splenic Vein: Patent with antegrade flow (towards the liver). -Main PV: Patent with normal, phasic antegrade flow (towards liver). 38 cm/sec -Right anterior PV: Patent with phasic antegrade flow (towards liver). -Right posterior PV: Patent with phasic antegrade flow (towards liver). -Left PV: Patent with phasic antegrade flow (towards liver).Splenorenal shunt: NoRecannulized paraumbilical vein: NoHEPATIC ARTERIES: - Main COLLAZO: Brisk up-stroke with increased diastolic flow PSV: 158 cm/sec. RI: 0.59 - Right anterior COLLAZO: Brisk up-stroke with increased diastolic flow - Right posterior COLLAZO: Brisk up-stroke with increased diastolic flow - Left COLLAZO: Brisk up-stroke with increased diastolic flowHepatic Veins: -Left: Patent with triphasic waveform. -Middle: Patent with triphasic waveform. -Right: Patent with triphasic waveform.IVC: Patent with normal, phasic waveform where visualized.IMPRESSION:PATENT HEPATIC VASCULATURE WITH APPROPRIATELY DIRECTED FLOW.UNREMARKABLE SONOGRAPHIC APPEARANCE OF THE LIVER.LARGE COMPLEX COLLECTION ALONG THE POSTERIOR LEFT LOWER QUADRANT, COMPATIBLE WITH PATIENT'S KNOWN RETROPERITONEAL HEMATOMA.SMALL VOLUME ASCITES.BILATERAL PLEURAL EFFUSIONS.URGENT RESULTS: Findings of large retroperitoneal hematoma communicated with Vilma Cordoba on 11/03/2017 at 20:54.Security Operations Center Operator: MARGARITA Transcribe Date/Time: Nov 03 2017 8:02PDictated by : ANN MARIE AGUIRRE MDThisamir examination was interpreted and the report reviewed and electronically signed by: CORDELL AMAYA DO on Nov 03 2017 11:35PM [id number] Normal [facility] XR CHEST 1V FRONTAL PORTon 0 11-03-2017 XR CHEST 1V FRONTAL PORT * * *Final Report* * *DATE OF EXAM: Nov 03 2017 5:18PM [facility]A 5376 - XR CHEST 1V FRONTAL PORT / REASON: Acute respiratory illness * * * * Physician Interpretation * * * * EXAMINATION: CHEST RADIOGRAPH (PORTABLE SINGLE VIEW AP)Exam Date/Time: 11/03/2017 5:18 PMClinical History: Acute respiratory illness,MQ: [id number]: NoneRESULT:See impression.IMPRESSION:Lines, tubes, and devices: Right-sided PICC line terminates in distal SVC..Lungs and pleura: Vague opacities are noted in the perihilar and basilar regions, suggesting partial atelectasis with possible superimposed edema and/or inflammation. Underlying small pleural effusions remain, left more than right. Follow-up is recommended.Cardiomediastina l silhouette: Heart borderline. Thoracic aorta is tortuous.Other: .Security Operations Center Operator: MARGARITA Transcribe Date/Time: Nov 03 2017 5:26PDictated by : Garth STEPHENSON examination was interpreted and the report reviewed and electronically signed by: TEZ ACEVEDO MD on Nov 03 2017 5:26PM [id number] Normal [facility] XR FEMUR 2V AP/LAT LTon 10-22 XR FEMUR 2V AP/LAT LT * * *Final Report* * *DATE OF EXAM: Nov 03 2017 5:52PM [facility] 5332 - XR FEMUR 2V AP/LAT LT / REASON: Upper leg erythema, swelling, cellulitis suspected * * * * Physician Interpretation * * * * HISTORY: portable bilateral femer xrays pt sts no injury. Thigh or groin pain, bisphosphonates tx 3-5yrs, initial exam.TECHNIQUE: XR FEMUR 2V AP/LAT RT, XR FEMUR 2V AP/LAT LT Laterality: RIGHT (accession [id number]), LEFT (accession [id number]) Number of different views (projections): 2 of each sideCOMPARISON: NoneRESULT:Portable examination. No soft tissue gas. Total knee arthroplasty on the right side. 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 Thigh or groin pain, bisphosphonates tx 3-5yrs, initial exam.TECHNIQUE: XR FEMUR 2V AP/LAT RT, XR FEMUR 2V AP/LAT LT Laterality: RIGHT (accession [id number]), LEFT (accession [id number]) Number of different views (projections): 2 of each sideCOMPARISON: NoneRESULT:Portable examination. No soft tissue gas. Total knee arthroplasty on the right side. 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 [id number] Normal [facility] US-Gallbladder IMPORTon 10-22 US-Gallbladder IMPORT Images were obtain ed outside of [facility] [id number] Normal [facility] CT OUTSIDE CD DICOM IMPORT - NBNRon 10-28-2017 CT OUTSIDE CD DICOM IMPORT -NBNR Images were obtained outside of [facility] [id number] Normal [facility] SR-Extremity Lower without C ontra IMPORTon 10-28-2017 SR-Extremity Lower without Contra IMPORT Images were obtained outside of [facility] [id number] Normal [facility] US OUTSIDE CD DICOM IMPORT - NBNRon 10-28-2017 US OUTSIDE CD DICOM IMPORT -NBNR Images were obtained outside of [facility] [id number] Normal [facility] XR OUTSIDE CD DICOM IMPORT - NBNRon 10-28-2017 XR OUTSIDE CD DICOM IMPORT -NBNR Images were obtained outside of [facility] [id number] Normal [facility] PT/INR Capillaryon 8 INR Coag RelTime (Bld) 2.0 {INR} High 1.0-1.2 [facility] Comment on above: Result Comment: Sour ce Capillary Performed By: #### 8 [id number] ####MY POC Ghuxhepuxn2482 [place] [address] PT POC 23.0 second(s) High 8.0-11.0 [facility] Comment on above: Performed By: #### 8 [id number] ####MY POC Phuklcwbst8116 [place] [address] PT/INR POC Orderon 8 INR Coag RelTime (Bld) Collected Normal [facility] Comment on above: Performed By: #### 8 [id number] ####MY POC [address] [place] [address] 55089 PT/INR Capillaryon 8 INR Coag RelTime (Bld) 2.1 {INR} High 1.0-1.2 [facility] Comment on above: Result Comment: Sour ce Capillary Performed By: #### 8 [id number] ####MY POC [address]ff[address] [place] [address] 62294 PT POC 24.0 second(s) High 8.0-11.0 [facility] Comment on above: Performed By: #### 8 [id number] ####MY POC Swdrpljcwi[address] [place] [address] 29500 PT/INR POC Orderon 8 INR Coag RelTime (Bld) Collected Normal [facility] Comment on above: Performed By: #### 8 [id number] ####YM POC Vryszcwsql4510 [place] [address] PT/INR Capillaryon 8 INR Coag RelTime (Bld) 3.0 {INR} High 1.0-1.2 [facility] Comment on above: Result Comment: Sour ce Capillary Performed By: #### 8 [id number] ####MY POC T[address]znaknjj[address] [place] [address] 69540 PT POC 34.0 second(s) High 8.0-11.0 [facility] Comment on above: Performed By: #### 8 [id number] ####MY POC Bdhknvoyos4915 [place] [address] PT/INR POC Orderon 8 INR Coag RelTime (Bld) Collected Normal [facility] Comment on above: Performed By: #### 8 [id number] ####MY POC Lbjlqaudri1440 [place] [address] PT/INR Capillaryon 8 INR Coag RelTime (Bld) 4.0 {INR} High 1.0-1.2 [facility] Comment on above: Result Comment: Sour ce Capillary Performed By: #### 8 [id number] ####MY POC [address]flmximoi[address] [place] [address] 52251 PT POC 45.0 second(s) High 8.0-11.0 [facility] Comment on above: Performed By: #### 8 [id number] ####MY POC G[address]oyqhhht5[address] [place] [address] 61986 PT/INR POC Orderon 8 INR Coag RelTime (Bld) Collected Normal [facility] Comment on above: Performed By: #### 8 [id number] ####MY POC Inzcoqvdov7406[address] [place] [address] 07955 PT/INR POC Orderon 8 INR Coag RelTime (Bld) Collected Normal [facility] Comment on above: Performed By: #### 8 [id number] ####MY POC Iogskesifv9613[address] [place] [address] 36454 PT/INR Capillaryon 8 INR Coag RelTime (Bld) 3.6 {INR} High 1.0-1.2 [facility] Comment on above: Result Comment: Sour ce Capillary Performed By: #### 8 [id number] ####MY POC Dtmdmwdffs[address] [place] [address] 27831 PT POC 40.0 second(s) High 8.0-11.0 [facility] Comment on above: Performed By: #### 8 [id number] ####MY POC Apldhfxbxh[address] [place] [address] 47679 PT/INR Capillaryon 8 INR Coag RelTime (Bld) 2.1 {INR} High 1.0-1.2 [facility] Comment on above: Result Comment: Sour ce Capillary Performed By: #### 8 [id number] ####MY POC Bpzfdpdtzy8264[address] [place] [address] 80634 PT POC 24.0 second(s) High 8.0-11.0 [facility] Comment on above: Performed By: #### 8 [id number] ####MY POC Lgbkqklvkw6498[address] [place] [address] 53540 PT/INR POC Orderon 8 INR Coag RelTime (Bld) Collected Normal [facility] Comment on above: Performed By: #### 8 [id number] ####MY POC Pckoamdkzh213[address] [place] [address] 97702 PT/INR Capillaryon 8 INR Coag RelTime (Bld) 1.7 {INR} High 1.0-1.2 [facility] Comment on above: Result Comment: Sour ce Capillary Performed By: #### 8 [id number] ####MY POC Cpkmnqjqik5511[address] [place] [address] 74144 PT POC 20.0 second(s) High 8.0-11.0 [facility] Comment on above: Performed By: #### 8 [id number] ####MY POC Zdrfsdbwth3882[address] [place] [address] 40981 PT/INR POC Orderon 8 INR Coag RelTime (Bld) Collected Normal [facility] Comment on above: Performed By: #### 8 [id number] ####MY POC Jjdhnhlopq9229[address] [place] [address] 56149 PT/INR POC Orderon 8 INR Coag RelTime (Bld) Collected Normal [facility] Comment on above: Performed By: #### 8 [id number] ####MY POC Jtlaobjoaf4729[address] [place] [address] 17669 PT/INR Capillaryon 8 INR Coag RelTime (Bld) 1.7 {INR} High 1.0-1.2 [facility] Comment on above: Result Comment: Sour ce Capillary Performed By: #### 8 [id number] ####MY POC Vohquojudp7123 [place] [address] PT POC 20.0 second(s) High 8.0-11.0 [facility] Comment on above: Performed By: #### 8 [id number] ####MY POC Djetofpwfa6913 [place] [address] PT/INR POC Orderon 8 INR Coag RelTime (Bld) Collected Normal [facility] Comment on above: Performed By: #### 8 [id number] ####MY POC Klrojeqgtc3797 [place] [address] Confirmation PT/INRon 2017 INR Coag RelTime (PPP) 7.7 {INR} Criticall y abnormal 1.0-1.2 [facility] Comment on above: Result Comment: Crit ical Result INR:7.7 Called to MAXINE TINAJERO at: 12:04:43 by:CRISTELA BOWDEN Read back by:MAXINE CHIUR Recommended Therapeuptic Ranges: Prophylaxis/treatment of DVT and PE?2.0-3.0 Prevention of systemic embolism?.2.0-3.0 Mechanical prosthetic values?2.5-3.5 CRITICAL VALUES?.>4.0 Performed By: #### 8 [id number] ####MY POC Wiwogsccqb[address] [place] [address] 74663 Prothrombin time (PT) Coag time (PPP) 59.9 second(s) High 11.6-14.6 [facility] Comment on above: Result Comment: Crit ical Result PT:59.9 Called to MAXINE TINAJERO at: 12:04:43 by:CRISTELA BOWDEN Read back by:MAXINE TINAJERO Performed By: #### 8 [id number] ####MY POC Uwzpdtpuem8545 [place] [address] PT/INR POC Orderon 8 INR Coag RelTime (Bld) Collected Normal [facility] Comment on above: Performed By: #### 8 [id number] ####MY POC Tqbsnzwfbm0647 [place] [address] PT/INR Capillaryon 8 INR Coag RelTime (Bld) 2.5 {INR} High 1.0-1.2 [facility] Comment on above: Result Comment: Sour ce Capillary Performed By: #### 8 [id number] ####MY POC Usibyhatrn4439 [place] [address] PT POC 29.0 second(s) High 8.0-11.0 [facility] Comment on above: Performed By: #### 8 [id number] ####MY POC Boivatnfoc0499 [place] [address] PT/INR Capillaryon 8 INR Coag RelTime (Bld) 2.2 {INR} High 1.0-1.2 [facility] Comment on above: Result Comment: Sour ce Capillary Performed By: #### 8 [id number] ####MY POC W[address]tvplntm[address] [place] [address] 32712 PT POC 25.0 second(s) High 8.0-11.0 [facility] Comment on above: Performed By: #### 8 [id number] ####MY POC Cmdzmmdjhd1304[address] [place] [address] 59329 PT/INR POC Orderon 8 INR Coag RelTime (Bld) Collected Normal [facility] Comment on above: Performed By: #### 8 [id number] ####MY POC Yztmkrcnpi5368[address] [place] [address] 04791 PT/INR Capillaryon 8 INR Coag RelTime (Bld) 2.1 {INR} High 1.0-1.2 [facility] Comment on above: Result Comment: Sour ce Capillary Performed By: #### 8 [id number] ####MY POC Twjsobyssk[address]53[address] [place] [address] 33361 PT POC 24.0 second(s) High 8.0-11.0 [facility] Comment on above: Performed By: #### 8 [id number] ####MY POC Lhedqtqaqf6[address] [place] [address] 33460 PT/INR POC Orderon 8 INR Coag RelTime (Bld) Collected Normal [facility] Comment on above: Performed By: #### 8 [id number] ####MY POC Qyyotpkjfr0411[address] [place] [address] 73630 PT/INR Capillaryon 8 INR Coag RelTime (Bld) 1.6 {INR} High 1.0-1.2 [facility] Comment on above: Result Comment: Sour ce Capillary Performed By: #### 8 [id number] ####MY POC Dnihuledsv459[address] [place] [address] 52950 PT POC 19.0 second(s) High 8.0-11.0 [facility] Comment on above: Performed By: #### 8 [id number] ####MY POC Xnngdzcdrs6821[address] [place] [address] 89351 PT/INR POC Orderon 8 INR Coag RelTime (Bld) Collected Normal [facility] Comment on above: Performed By: #### 8 [id number] ####MY POC Jfqjcihbjt6357[address] [place] [address] 09200 PT/INR Capillaryon 8 INR Coag RelTime (Bld) 1.8 {INR} High 1.0-1.2 [facility] Comment on above: Result Comment: Sour ce Capillary Performed By: #### 8 [id number] ####MY POC Daombdrotx2146[address] [place] [address] 26618 PT POC 21.0 second(s) High 8.0-11.0 [facility] Comment on above: Performed By: #### 8 [id number] ####MY POC Ujatnetmpz603[address] [place] [address] 88792 PT/INR POC Orderon 8 INR Coag RelTime (Bld) Collected Normal [facility] Comment on above: Performed By: #### 8 [id number] ####MY POC Neiexuecjs9205[address] [place] [address] 15904 PT/INR POCon 03-23-2017 INR Coag RelTime (Bld) 2.3 {INR} High 1.0-1.2 [facility] Comment on above: Performed By: #### 8 [id number] ####MY POC Inzhjigqxh1888 [place] [address] PT POC 26.0 second(s) High 8.0-11.0 [facility] Comment on above: Performed By: #### 8 [id number] ####MY POC Wnmtmprgnd0079[address] [place] [address] 58852 PT/INR POC Orderon 8 INR Coag RelTime (Bld) Collected Normal [facility] Comment on above: Performed By: #### 8 [id number] ####MY POC Lziplorhbz8019[address] [place] [address] 62472 PT/INR POCon 03-14-2017 INR Coag RelTime (Bld) 1.6 {INR} High 1.0-1.2 [facility] Comment on above: Performed By: #### 8 [id number] ####MY POC Ysevbczryz[address] [place] [address] 87864 PT POC 19.0 second(s) High 8.0-11.0 [facility] Comment on above: Performed By: #### 8 [id number] ####MY POC Euivtlnjqu6632[address] [place] [address] 30650 PT/INR POC Orderon 8 INR Coag RelTime (Bld) Collected Normal [facility] Comment on above: Performed By: #### 8 [id number] ####MY POC Wksoeaoexp1151[address] [place] [address] 86350 PT/INR POC Orderon 8 INR Coag RelTime (Bld) Collected Normal [facility] Comment on above: Performed By: #### 8 [id number] ####MY POC Uwbpvloxev3324[address] [place] [address] 72099 PT/INR POCon 03-07-2017 INR Coag RelTime (Bld) 1.1 {INR} Normal 1.0-1.2 [facility] Comment on above: Performed By: #### 8 [id number] ####MY POC Qkfpwhamoj8313[address] [place] [address] 49763 PT POC 13.0 second(s) High 8.0-11.0 [facility] Comment on above: Performed By: #### 8 [id number] ####MY POC Kqvjkajyck5930 [place] [address] PT/INR POCon 03-03-2017 INR Coag RelTime (Bld) 1.2 {INR} Normal 1.0-1.2 [facility] Comment on above: Performed By: #### 8 [id number] ####MY POC Irmhvluhtl2406 [place] [address] PT POC 14.0 second(s) High 8.0-11.0 [facility] Comment on above: Performed By: #### 8 [id number] ####MY POC Iyccdzmnsu3055 [place] [address] PT/INR POC Orderon 8 INR Coag RelTime (Bld) Collected Normal [facility] Comment on above: Performed By: #### 8 [id number] ####MY POC Vhdjgtrxza4590 [place] [address] PT/INR POCon 02-16-2017 INR Coag RelTime (Bld) 1.3 {INR} High 1.0-1.2 [facility] Comment on above: Performed By: #### 8 [id number] ####MY POC Nzjvyjctnw1476[address] [place] [address] 51329 PT POC 16.0 second(s) High 8.0-11.0 [facility] Comment on above: Performed By: #### 8 [id number] ####MY POC Qbjpeybiuj6039 [place] [address] PT/INR POC Orderon 7 INR Coag RelTime (Bld) Collected Normal [facility] Comment on above: Performed By: #### 8 [id number] ####MY POC Ahvwjjlhrk0333 [place] [address] PT/INR POC Orderon 7 INR Coag RelTime (Bld) Collected Normal [facility] Comment on above: Performed By: #### 8 [id number] ####MY POC Rtwxsndauf6445 [place] [address] PT/INR POCon 02-09-2017 INR Coag RelTime (Bld) 2.7 {INR} High 1.0-1.2 [facility] Comment on above: Performed By: #### 8 [id number] ####MY POC Egyonxyyyr4149 [place] [address] PT POC 31.0 second(s) High 8.0-11.0 [facility] Comment on above: Performed By: #### 8 [id number] ####MY POC Hioggqfuic6420 [place] [address] PT/INR POCon 02-07-2017 INR Coag RelTime (Bld) 4.0 {INR} High 1.0-1.2 [facility] Comment on above: Performed By: #### 8 [id number] ####MY POC Pddpttowvv5495 [place] [address] PT POC 45.0 second(s) High 8.0-11.0 [facility] Comment on above: Performed By: #### 8 [id number] ####MY POC Wlimoqyyzl7518 [place] [address] PT/INR POC Orderon 7 INR Coag RelTime (Bld) Collected Normal [facility] Comment on above: Performed By: #### 8 [id number] ####MY POC Gxgntbwawe6073 [place] [address] COVID-19 virus antigen assay SARS-CoV-2 (COVID-19) Ag IA.rapid Ql (Resp) [facility] Work Phone: Vital Signs Date Time Vital Sign Value Performing Clinician Faci lity 2024 11:56-0400 Body height 187.[address] Dc Glez MD Work Phone: [facility] 07-11-2024 06:53-0400 Body height 187.[address] Dc Glez MD Work Phone: [facility] 07-11-2024 06:53-0400 Body mass index (BMI) [Ratio] 29.4 kg/m2 Dr. Dc Glez MD Work Phone: [facility] 07-11-2024 06:53-0400 Body weight 103.[address] Dc Glez MD Work Phone: [facility] 07-11-2024 06:53-0400 Diastolic blood pressure 78 mm[Hg] Dr. Dc Glez MD Work Phone: [facility] 07-11-2024 06:53-0400 Heart rate 80 /min Dr. Dc Glez MD Work Phone: [facility] 07-11-2024 06:53-0400 Respiratory rate 18 /min Dr. Dc Glez MD Work Phone: [facility] 07-11-2024 06:53-0400 SaO2% (BldA) [Mass fraction] 96 % Dr. Dc Glez MD Work Phone: 2(434)686-610483 [place] [address] 07-11-2024 06:53-0400 Systolic blood pressure 141 mm[Hg] Dr. Dc Glez MD Work Phone: 4(998)535-405383 [place] [address] 05-16-2024 11:09-0400 Body height 187.[address] Dc Glez MD Work Phone: 6(715)246-715283 [place] [address] 05-16-2024 11:09-0400 Body weight 103.[address] Dc Glez MD Work Phone: 5(829)154-994102 [address] 05-15-2024 09:05-0400 Body mass index (BMI) [Ratio] 29.4 kg/m2 Dr. Dc Glez MD Work Phone: 3(481)233-192183 [place] [address] 05-04-2024 07:48-0400 Body mass index (BMI) [Ratio] 29.4 kg/m2 Dr. Dc Glez MD Work Phone: [facility] 05-04-2024 07:48-0400 Body weight 103.[address] Dc Glez MD Work Phone: 8(960)732-718783 [place] [address] 05-04-2024 07:48-0400 Diastolic blood pressure 81 mm[Hg] Dr. Dc Glez MD Work Phone: 8(861)184-309783 [place] [address] 05-04-2024 07:48-0400 Heart rate 75 /min Dr. Dc Glez MD Work Phone: 7(126)961-078483 [place] [address] 05-04-2024 07:48-0400 Respiratory rate 18 /min Dr. Dc Glez MD Work Phone: [facility] 05-04-2024 07:48-0400 SaO2% (BldA) [Mass fraction] 94 % Dr. Dc Glez MD Work Phone: [facility] 05-04-2024 07:48-0400 Systolic blood pressure 126 mm[Hg] Dr. Dc Glez MD Work Phone: 5(145)466-069202 [address] 01-11-2024 14:28-0500 Body height 187.[address] Dc Glez MD Work Phone: 9(256)520-268102 [address] 01-11-2024 14:28-0500 Body mass index (BMI) [Ratio] 30 kg/m2 Dr. Dc Glez MD Work Phone: 2(020)940-732002 [address] 01-11-2024 14:28-0500 Body weight 106.[address] Dc Glez MD Work Phone: 7(222)567-383383 [place] [address] 01-11-2024 14:28-0500 Diastolic blood pressure 75 mm[Hg] Dr. Dc Glez MD Work Phone: 1(857)650-358883 [place] [address] 01-11-2024 14:28-0500 Respiratory rate 18 /min Dr. Dc Glez MD Work Phone: 9(312)333-629283 [place] [address] 01-11-2024 14:28-0500 Systolic blood pressure 116 mm[Hg] Dr. Dc Glez MD Work Phone: [facility] 05-15-2023 09:49-0400 Body temperature 97.8 [degF] Dr. Dc Glez Work Phone: [facility] 05-15-2023 09:49-0400 Diastolic blood pressure 81 mm[Hg] Dr. Dc Glez Work Phone: [facility] 05-15-2023 09:49-0400 Heart rate 64 /min Dr. Dc Glez Work Phone: [facility] 05-15-2023 09:49-0400 Respiratory rate 16 /min Dr. Dc Glez Work Phone: [facility] 05-15-2023 09:49-0400 SaO2% (BldA) [Mass fraction] 95 % Dr. Dc Glez Work Phone: [facility] 05-15-2023 09:49-0400 Systolic blood pressure 112 mm[Hg] Dr. Dc Glez Work Phone: [facility] 05-13-2023 13:26-0400 Body height 187.[address] Dc Glez Work Phone: [facility] 05-13-2023 13:26-0400 Body mass index (BMI) [Ratio] 29.9 kg/m2 Dr. Dc Glez Work Phone: [facility] 05-13-2023 13:26-0400 Body weight 105.[address] Dc Glez Work Phone: [facility] 04-08-2023 10:45-0500 Body mass index (BMI) [Ratio] 29.7 kg/m2 Dr. Dc Glez Work Phone: [facility] 04-08-2023 10:45-0500 Body weight 105.[address] Dc Glez Work Phone: [facility] 04-08-2023 10:45-0500 Diastolic blood pressure 87 mm[Hg] Dr. Dc Glez Work Phone: [facility] 04-08-2023 10:45-0500 Heart rate 97 /min Dr. Dc Glez Work Phone: [facility] 04-08-2023 10:45-0500 Respiratory rate 18 /min Dr. Dc Glez Work Phone: [facility] 04-08-2023 10:45-0500 SaO2% (BldA) [Mass fraction] 98 % Dr. Dc Glez Work Phone: [facility] 04-08-2023 10:45-0500 Systolic blood pressure 129 mm[Hg] Dr. Dc Glez Work Phone: [facility] 03-12-2023 14:09-0500 Diastolic blood pressure 73 mm[Hg] Dr. Dc Glez Work Phone: [facility] 03-12-2023 14:09-0500 Heart rate 69 /min Dr. Dc Glez Work Phone: [facility] 03-12-2023 14:09-0500 Systolic blood pressure 111 mm[Hg] Dr. Dc Glez Work Phone: [facility] 03-12-2023 08:46-0500 Body temperature 97.8 [degF] Dr. Dc Glez Work Phone: 7(450)733-166802 [address] 03-12-2023 08:46-0500 Respiratory rate 16 /min Dr. Dc Glez Work Phone: 4(203)764-002402 [address] 03-12-2023 08:46-0500 SaO2% (BldA) [Mass fraction] 95 % Dr. Dc Glez Work Phone: [facility] 03-12-2023 05:22-0500 Body mass index (BMI) [Ratio] 29.8 kg/m2 Dr. Dc Glez Work Phone: 3(596)746-824602 [address] 03-12-2023 05:22-0500 Body weight 105.[address] Dc Glez Work Phone: 9(957)169-386383 [place] [address] 03-12-2023 02:25-0500 Body height 187.[address] Dc Glez Work Phone: [facility] 03-12-2023 01:56-0500 Diastolic blood pressure 61 mm[Hg] Dr. Dc Glez Work Phone: 6(786)363-058683 [place] [address] 03-12-2023 01:56-0500 Heart rate 112 /min Dr. Dc Glez Work Phone: [facility] 03-12-2023 01:56-0500 SaO2% (BldA) [Mass fraction] 91 % Dr. Dc Glez Work Phone: 5(627)500-561983 [place] [address] 03-12-2023 01:56-0500 Systolic blood pressure 91 mm[Hg] Dr. Dc Glez Work Phone: [facility] 03-12-2023 01:50-0500 Respiratory rate 20 /min Dr. Dc Glez Work Phone: [facility] 03-11-2023 23:01-0500 Body temperature 98.3 [degF] Dr. Dc Glez Work Phone: [facility] 03-11-2023 22:03-0500 Body height 187.[address] Dc Glez Work Phone: [facility] 03-11-2023 22:03-0500 Body mass index (BMI) [Ratio] 29.9 kg/m2 Dr. Dc Glez Work Phone: [facility] 03-11-2023 22:03-0500 Body weight 105.[address] Dc Glez Work Phone: [facility] 12-13-2022 10:28-0400 Body height 187.[address] Dc Glez Work Phone: [facility] 12-13-2022 10:28-0400 Body weight 102.[address] Dc Glez Work Phone: [facility] 12-10-2022 08:17-0400 Body mass index (BMI) [Ratio] 29 kg/m2 Dr. Dc Glez Work Phone: [facility] 10-15-2022 14:12-0400 Body height 187.[address] Dc Glez Work Phone: [facility] 10-15-2022 14:12-0400 Body mass index (BMI) [Ratio] 29 kg/m2 Dr. Dc Glez Work Phone: [facility] 10-15-2022 14:12-0400 Body weight 102.[address] Dc Glez Work Phone: [facility] 10-15-2022 14:12-0400 Diastolic blood pressure 79 mm[Hg] Dr. Dc Glez Work Phone: [facility] 10-15-2022 14:12-0400 Heart rate 81 /min Dr. Dc Glez Work Phone: [facility] 10-15-2022 14:12-0400 Respiratory rate 16 /min Dr. Dc Glez Work Phone: [facility] 10-15-2022 14:12-0400 Systolic blood pressure 117 mm[Hg] Dr. Dc Glez Work Phone: [facility] 09-18-2022 12:31-0400 Diastolic blood pressure 66 mm[Hg] Dr. Dc Glez Work Phone: [facility] 09-18-2022 12:31-0400 Heart rate 100 /min Dr. Dc Glez Work Phone: [facility] 09-18-2022 12:31-0400 Respiratory rate 18 /min Dr. Dc Glez Work Phone: [facility] 09-18-2022 12:31-0400 SaO2% (BldA) [Mass fraction] 98 % Dr. Dc Glez Work Phone: [facility] 09-18-2022 12:31-0400 Systolic blood pressure 124 mm[Hg] Dr. Dc Glez Work Phone: [facility] 09-18-2022 10:08-0400 Body mass index (BMI) [Ratio] 29.4 kg/m2 Dr. Dc Glez Work Phone: [facility] 09-18-2022 10:08-0400 Body weight 103.[address] Dc Glez Work Phone: [facility] 09-18-2022 09:56-0400 Body height 187.[address] Dc Glez Work Phone: [facility] 09-18-2022 09:56-0400 Body temperature 97.8 [degF] Dr. Dc Glez Work Phone: [facility] 04-09-2022 10:46-0500 Body height 187.[address] Dc Glez Work Phone: [facility] 04-09-2022 10:46-0500 Body mass index (BMI) [Ratio] 28.6 kg/m2 Dr. Dc Glez Work Phone: [facility] 04-09-2022 10:46-0500 Body weight 101.[address] Dc Glez Work Phone: [facility] 04-09-2022 10:46-0500 Diastolic blood pressure 79 mm[Hg] Dr. Dc Glez Work Phone: [facility] 04-09-2022 10:46-0500 Heart rate 63 /min Dr. Dc Glez Work Phone: [facility] 04-09-2022 10:46-0500 Respiratory rate 18 /min Dr. Dc Glez Work Phone: [facility] 04-09-2022 10:46-0500 SaO2% (BldA) [Mass fraction] 97 % Dr. Dc Glez Work Phone: [facility] 04-09-2022 10:46-0500 Systolic blood pressure 128 mm[Hg] Dr. Dc Glez Work Phone: [facility] 02-06-2022 15:17-0500 Respiratory rate 18 /min Dr. Dc Glez Work Phone: [facility] 02-06-2022 14:00-0500 Diastolic blood pressure 76 mm[Hg] Dr. Dc Glez Work Phone: [facility] 02-06-2022 14:00-0500 Systolic blood pressure 112 mm[Hg] Dr. Dc Glez Work Phone: [facility] 02-06-2022 12:34-0500 Heart rate 72 /min Dr. Dc Glez Work Phone: [facility] 02-06-2022 12:34-0500 SaO2% (BldA) [Mass fraction] 93 % Dr. Dc Glez Work Phone: [facility] 02-06-2022 09:44-0500 Body height 187.[address] Dc Glez Work Phone: [facility] Work Phone: 02-06-2022 09:44-0500 Body mass index (BMI) [Ratio] 26.2 kg/m2 Dr. Dc Glez Work Phone: [facility] 02-06-2022 09:44-0500 Body temperature 97.2 [degF] Dr. Dc Glez Work Phone: [facility] 02-06-2022 09:44-0500 Body weight 92.[address] Dc Glez Work Phone: [facility] 01-01-2022 08:49-0500 Body mass index (BMI) [Ratio] 26.6 kg/m2 Dr. Dc Glez Work Phone: [facility] Work Phone: 01-01-2022 08:49-0500 Body weight 94.[address] Dc Glez Work Phone: [facility] Work Phone: 01-01-2022 08:36-0500 Diastolic blood pressure 81 mm[Hg] Dr. Dc Glez Work Phone: [facility] Work Phone: 01-01-2022 08:36-0500 Heart rate 64 /min Dr. Dc Glez Work Phone: [facility] Work Phone: 01-01-2022 08:36-0500 Respiratory rate 14 /min Dr. Dc Glez Work Phone: [facility] Work Phone: 01-01-2022 08:36-0500 Systolic blood pressure 127 mm[Hg] Dr. Dc Glez Work Phone: [facility] Work Phone: 11-20-2021 08:30-0400 Body temperature 97.8 [degF] Dr. Dc Glez Work Phone: [facility] Work Phone: 11-20-2021 08:30-0400 Diastolic blood pressure 90 mm[Hg] Dr. Dc Glez Work Phone: [facility] Work Phone: 11-20-2021 08:30-0400 Heart rate 67 /min Dr. Dc Glez Work Phone: [facility] Work Phone: 11-20-2021 08:30-0400 Respiratory rate 18 /min Dr. Dc Glez Work Phone: [facility] Work Phone: 11-20-2021 08:30-0400 SaO2% (BldA) [Mass fraction] 96 % Dr. Dc Glez Work Phone: [facility] Work Phone: 11-20-2021 08:30-0400 Systolic blood pressure 148 mm[Hg] Dr. Dc Glez Work Phone: [facility] Work Phone: 11-19-2021 13:15-0400 Body height 187.[address] Dc Glez Work Phone: [facility] Work Phone: 11-19-2021 13:15-0400 Body mass index (BMI) [Ratio] 24.7 kg/m2 Dr. Dc Glez Work Phone: [facility] Work Phone: 11-19-2021 13:15-0400 Body weight 87.[address] Dc Glez Work Phone: [facility] Work Phone: 11-14-2021 15:06-0400 Diastolic blood pressure 70 mm[Hg] Dr. Dc Glez Work Phone: [facility] Work Phone: 11-14-2021 15:06-0400 Heart rate 62 /min Dr. Dc Glez Work Phone: [facility] Work Phone: 11-14-2021 15:06-0400 Respiratory rate 17 /min Dr. Dc Glez Work Phone: [facility] Work Phone: 11-14-2021 15:06-0400 SaO2% (BldA) [Mass fraction] 97 % Dr. Dc Glez Work Phone: [facility] Work Phone: 11-14-2021 15:06-0400 Systolic blood pressure 135 mm[Hg] Dr. Dc Glez Work Phone: [facility] Work Phone: 11-14-2021 10:20-0400 Body height 187.[address] Dc Glez Work Phone: [facility] Work Phone: 11-14-2021 10:20-0400 Body mass index (BMI) [Ratio] 25.2 kg/m2 Dr. Dc Glez Work Phone: [facility] Work Phone: 11-14-2021 10:20-0400 Body temperature 98.5 [degF] Dr. Dc Glez Work Phone: [facility] Work Phone: 11-14-2021 10:20-0400 Body weight 89.[address] Dc Glez Work Phone: [facility] Work Phone: 11-13-2021 10:10-0400 Body temperature 97.5 [degF] Dr. Dc Glez Work Phone: [facility] Work Phone: 11-13-2021 10:10-0400 Diastolic blood pressure 69 mm[Hg] Dr. Dc Glez Work Phone: [facility] Work Phone: 11-13-2021 10:10-0400 Heart rate 56 /min Dr. Dc Glez Work Phone: [facility] Work Phone: 11-13-2021 10:10-0400 Respiratory rate 18 /min Dr. Dc Glez Work Phone: [facility] Work Phone: 11-13-2021 10:10-0400 SaO2% (BldA) [Mass fraction] 96 % Dr. Dc Glez Work Phone: [facility] Work Phone: 11-13-2021 10:10-0400 Systolic blood pressure 117 mm[Hg] Dr. Dc Glez Work Phone: [facility] Work Phone: 11-13-2021 05:57-0400 Body weight 86.[address] Dc Glez Work Phone: [facility] Work Phone: 11-10-2021 21:24-0400 Body height 187.[address] Dc Glez Work Phone: [facility] Work Phone: 11-10-2021 21:24-0400 Body mass index (BMI) [Ratio] 24.1 kg/m2 Dr. Dc Glez Work Phone: [facility] Work Phone: 11-10-2021 20:52-0400 Body temperature 98.1 [degF] Dr. Dc Glez Work Phone: [facility] Work Phone: 11-10-2021 20:52-0400 Diastolic blood pressure 90 mm[Hg] Dr. Dc Glez Work Phone: [facility] Work Phone: 11-10-2021 20:52-0400 Heart rate 39 /min Dr. Dc Glez Work Phone: [facility] Work Phone: 11-10-2021 20:52-0400 Respiratory rate 18 /min Dr. Dc Glez Work Phone: [facility] Work Phone: 11-10-2021 20:52-0400 SaO2% (BldA) [Mass fraction] 98 % Dr. Dc Glez Work Phone: [facility] Work Phone: 11-10-2021 20:52-0400 Systolic blood pressure 125 mm[Hg] Dr. Dc Glez Work Phone: [facility] Work Phone: 11-10-2021 16:01-0400 Body height 187.[address] Dc Glez Work Phone: [facility] Work Phone: 11-10-2021 16:01-0400 Body mass index (BMI) [Ratio] 25.2 kg/m2 Dr. Dc Glez Work Phone: [facility] Work Phone: 11-10-2021 16:01-0400 Body weight 89.[address] Dc Glez Work Phone: [facility] Work Phone: 09-29-2021 09:43-0400 Body mass index (BMI) [Ratio] 25 kg/m2 Dr. Dc Glez Work Phone: [facility] Work Phone: 09-29-2021 09:43-0400 Body weight 88.[address] Dc Glez Work Phone: [facility] Work Phone: 09-29-2021 09:43-0400 Diastolic blood pressure 64 mm[Hg] Dr. Dc Glez Work Phone: [facility] Work Phone: 09-29-2021 09:43-0400 Heart rate 40 /min Dr. Dc Glez Work Phone: [facility] Work Phone: 09-29-2021 09:43-0400 Respiratory rate 18 /min Dr. Dc Glez Work Phone: [facility] Work Phone: 09-29-2021 09:43-0400 Systolic blood pressure 128 mm[Hg] Dr. Dc Glez Work Phone: [facility] Work Phone: Encounters Encounter Date Encounter Type Care Provider Facility Start: 11-14-2024 End: 11-14-[address] Dc Glez MD Work Phone: [facility] Start: 11-14-2024 End: 11-14-[address] Trae Cano MD -[facility] Work Phone: Start: 2024 End: [address] Amado Howard MD -[facility] Work Phone: Start: 2024 End: [address] Dc Glez MD Work Phone: [facility] Start: 08-15-2024 End: 08-15-[address] Dc Glez MD Work Phone: [facility] Start: 08-15-2024 End: 08-15-[address] Trae Cano MD -[facility] Work Phone: Start: 07-26-2024 End: 07-26-[address] Dc Glez MD Work Phone: [facility] Work Phone: Start: 07-26-2024 End: 07-26-[address] Dc Glez MD -[facility] Start: 07-26-2024 End: 07-26-2024 ambulatory Dc Glez Facility:[facility] Start: 07-11-2024 End: 07-11-2024 Patient encounter procedure Karri Dubois MAE -[facility] Work Phone: Start: 07-11-2024 End: 07-11-[address] Dc Glez MD Work Phone: [facility] Work Phone: Start: 06-11-2024 End: 06-11-2024 ambulatory [facility] Start: 06-01-2024 End: 06-01-2024 ambulatory [facility] Start: 05-28-2024 End: 05-28-2024 ambulatory [facility] Start: 05-25-2024 End: 05-25-2024 ambulatory [facility] Start: 05-24-2024 End: 05-24-[address] Trae Cano MD -[facility] Work Phone: Start: 05-24-2024 End: 05-24-2024 ambulatory Dc Glez Facility:[facility] Start: 05-21-2024 End: 05-21-2024 ambulatory [facility] Start: 05-16-2024 ambulatory Trae Cano Facility:[facility] Start: 05-16-2024 Non-patient / Non-visit Dr. Rochelle CONDON -[facility] Start: 05-16-2024 End: 05-16-2024 Admission to same day surgery center Dr. Trae Cano MD -[facility] Work Phone: Start: 05-16-2024 End: 05-16-[address] Dc Glez MD Work Phone: [facility] Work Phone: Start: 05-16-2024 End: 05-16-2024 ambulatory Trae Cano Facility:[facility] Start: 05-16-2024 End: 05-16-[address] Trae Cano MD -[facility] Work Phone: Start: 05-14-2024 End: 05-14-2024 ambulatory [facility] Start: 05-11-2024 End: 05-11-2024 ambulatory [facility] Start: 05-04-2024 End: 05-04-2024 Patient encounter procedure Kia WALL -Radiology, [facility] Work Phone: Start: 05-04-2024 End: 05-04-[address] Dc Glez MD Work Phone: [facility] Work Phone: Start: 05-04-2024 End: 05-04-2024 ambulatory Kia WALL Facility:[facility] Start: 04-25-2024 End: 04-25-[address] Dc Glez MD Work Phone: [facility] Work Phone: Start: 04-25-2024 End: 04-25-[address] [facility] Start: 04-25-2024 End: 04-25-2024 ambulatory Dc Glez Facility:[facility] Start: 03-19-2024 End: 03-19-2024 ambulatory Trae Cano Facility:[facility] Start: 03-19-2024 End: 03-19-[address] Trae Cano MD -[facility] Work Phone: Start: 02-17-2024 End: 02-17-2024 ambulatory Trae Cano Facility:[facility] Start: 02-17-2024 End: 02-17-[address] Trae Cano MD -[facility] Work Phone: Start: 02-15-2024 End: 02-15-2024 ambulatory Trae Cano Facility:[facility] Start: 02-15-2024 End: 02-15-[address] Trae Cano MD -[facility] Work Phone: Start: 02-13-2024 End: 02-13-2024 ambulatory Trae Cano Facility:[facility] Start: 02-13-2024 End: 02-13-[address] Trae Cano MD -[facility] Work Phone: Start: 01-11-2024 End: 01-11-2024 ambulatory Dc Glez Facility:[facility] Start: 01-11-2024 End: 01-11-2024 [facility] Start: 01-10-2024 End: 01-10-2024 ambulatory Trae Jerome Facility:[facility] Start: 01-10-2024 End: 01-10-[address] Trae Cano MD -[facility] Work Phone: Start: 01-04-2024 ambulatory Dc Glez Facility:[facility] Start: 12-20-2023 End: 12-20-2023 ambulatory [place] Facility:[facility] Start: 05-14-2023 Non-patient / Non-visit Dr. Mae Glez Work Phone: [facility] Start: 05-13-2023 Non-patient / Non-visit Dr. Mae Glez Work Phone: [facility] Start: 05-13-2023 End: 05-15-2023 Evaluation and management of inpatient Dr. Dc Glez Work Phone: [facility]-Progressive Care Unit Work Phone: Start: 05-11-2023 Non-patient / Non-visit Dr. Mae Glez Work Phone: [facility] Start: 04-26-2023 End: 04-26-[address] Dc Glez Work Phone: [facility] Work Phone: Start: 04-08-2023 End: 04-08-[address] Dc Glez Work Phone: [facility] Work Phone: Start: 03-12-2023 Non-patient / Non-visit Dr. Mae Glez Work Phone: [facility] Start: 03-12-2023 End: 03-12-2023 Evaluation and management of inpatient Dr. Dc Glez Work Phone: [facility] Work Phone: Start: 03-12-2023 End: 03-12-[address] Dc Glez Work Phone: [facility] Work Phone: Start: 03-04-2023 End: 03-04-[address] Dc Glez Work Phone: [facility] Work Phone: Start: 03-02-2023 End: 03-02-[address] Dc Glez Work Phone: [facility] Work Phone: Start: 03-02-2023 End: 03-02-[address] Dc Glez Work Phone: [facility]-Laboratory Work Phone: Start: 12-20-2022 End: 12-20-[address] Dc Glez Work Phone: [facility] Work Phone: Start: 12-13-2022 Non-patient / Non-visit Dr. Mae Glez Work Phone: [facility] Start: 12-13-2022 Non-patient / Non-visit Dr. Mae Glez Work Phone: [facility] Start: 12-13-2022 End: 12-13-2022 Admission to same day surgery center Dr. Dc Glez Work Phone: [facility] Work Phone: Start: 12-13-2022 End: 12-13-[address] Dc Glez Work Phone: [facility] Work Phone: Start: 11-23-2022 Non-patient / Non-visit Dr. Mae Glez Work Phone: [facility] Start: 11-17-2022 End: 11-17-[address] Dc Glez Work Phone: [facility] Start: 11-11-2022 End: 11-11-[address] Dc lGez Work Phone: [facility] Work Phone: Start: 11-11-2022 End: 11-11-[address] Dc Glez Work Phone: [facility] Start: 10-15-2022 End: 10-15-[address] Dc Glez Work Phone: [facility] Work Phone: Start: 09-18-2022 End: 09-18-2022 Emergency department patient visit [facility] Dc [facility] Start: 08-13-2022 End: 08-13-[address] Dc Glez Work Phone: [facility] Work Phone: Start: 07-21-2022 End: 07-21-[address] Dc Glez Work Phone: [facility] Work Phone: Start: 06-17-2022 End: 06-17-[address] Dc Glez Work Phone: [facility] Work Phone: Start: 06-17-2022 End: 06-17-[address] Dc Glez Work Phone: [facility]-Physical Therapy Start: 05-20-2022 End: 05-20-[address] Dc Glez Work Phone: [facility] Work Phone: Start: 05-20-2022 End: 05-20-[address] Dc Glez Work Phone: [facility] Start: 04-09-2022 End: 04-09-[address] Dc Glez Work Phone: [facility] Start: 04-09-2022 End: 04-09-[address] Dc Glez Work Phone: [facility] Start: 02-06-2022 End: 02-06-2022 Emergency department patient visit Dr. Dc Glez Work Phone: [facility]-Emergency Department Start: 01-01-2022 End: 01-01-[address] Dc Glez Work Phone: [facility] Start: 11-27-2021 End: 11-27-[address] Dc Glez Work Phone: [facility] Start: 11-20-2021 Non-patient / Non-visit Dr. Mae Glez Work Phone: [facility] Start: 11-20-2021 End: 11-20-[address] Dc Glez Work Phone: [facility] Start: 11-19-2021 End: 11-20-2021 Admission to same day surgery center Dr. Dc Glez Work Phone: [facility] Start: 11-19-2021 End: 11-20-[address] Dc Glez Work Phone: [facility] Work Phone: Start: 11-18-2021 Non-patient / Non-visit Dr. Mae Glez Work Phone: [facility] Start: 11-16-2021 End: 11-16-[address] Dc Glez Work Phone: [facility] Start: 11-14-2021 End: 11-14-2021 Emergency department patient visit Dr. Dc Glez Work Phone: [facility]-Emergency Department Start: 11-13-2021 Non-patient / Non-visit Dr. Mae Glez Work Phone: [facility] Start: 11-13-2021 Non-patient / Non-visit Dr. Mae Glez Work Phone: [facility] Start: 11-12-2021 Non-patient / Non-visit Dr. Mae Glez Work Phone: [facility] Start: 11-12-2021 Non-patient / Non-visit Dr. Mae Glez Work Phone: [facility] Start: 11-11-2021 Non-patient / Non-visit Dr. Mae Glez Work Phone: [facility] Start: 11-10-2021 End: 11-13-2021 Evaluation and management of inpatient Dr. Dc Glez Work Phone: [facility]-Progressive Care Unit Start: 11-10-[address] Dc Glez Work Phone: [facility] Work Phone: Start: 09-29-2021 End: 09-29-[address] Dc Glez Work Phone: [facility] Start: 09-16-2021 End: 09-16-[address] Dc Glez Work Phone: [facility]-Pulmonary Services/Neurology Start: 09-01-2021 End: 09-01-2021 Patient encounter procedure [facility]Cardiovascula r Services Start: 07-31-2021 End: 07-31-2021 Patient encounter procedure [facility] Start: 12-30-2017 End: 12-31-2017 Patient encounter procedure Stuart Mckeon Facility:[facility] Start: 11-17-2017 End: 11-17-2017 [facility] Start: 11-14-2017 End: 11-14-2017 Patient encounter MARNI [facility] Start: 11-07-2017 End: 11-07-2017 Patient encounter SARAVANAN (PA-C) ALEJANDRO [facility] Start: 11-03-2017 End: 11-17-2017 Evaluation and management of inpatient JACKY FERNANDO [facility] Start: 07-14-2017 End: 11-28-2017 Patient encounter procedure Dc Glez Facility:[facility] Procedures Date Procedure Procedure Detail Performing Clinician Start: 07-11-2024 Evaluation of diagno stic study results Dr. Dc Glez MD Work Phone: Start: 05-24-2024 Evaluation of diagno stic study results Dr. Dc Glez MD Work Phone: Start: 05-04-2024 X-ray of chest, PA a nd lateral views Dr. Dc Glez MD Work Phone: Start: 05-04-2024 Evaluation of diagno stic study results Dr. Dc Glez MD Work Phone: Start: 04-25-2024 X-ray of knee, four or more views Dr. Dc Glez MD Work Phone: Start: 04-25-2024 Assay of prostate sp ecific antigen total Dr. Dc Glez MD Work Phone: Comment on above: This test was perfor med using the [employer] tPSA method. Measured values of a patient sample can vary depending on the testing procedure used. PSA values determined on patient samples by different testing procedures cannot be used interchangeably. If there is a change in PSA assays while monitoring therapy, sequential testing should be performed to confirm baseline values. Start: 01-11-2024 Evaluation of diagno stic study results Dr. Dc Glez MD Work Phone: Start: 03-11-2023 Plain chest X-ray Dr. Gregorio Glez Work Phone: Start: 03-11-2023 Bacteria identified in Blood by Culture Dr. Dc Glez Work Phone: Start: 03-11-2023 SARS-CoV-2, Influenz a & RSV (PCR) Dr. Dc Glez Work Phone: Start: 11-20-2021 Plain chest X-ray Dr. Gregorio Glez Work Phone: Start: 11-19-2021 Plain chest X-ray Dr. Gregorio Glez Work Phone: Start: 11-12-2021 CT cervical spine wi thout contrast Dr. Dc Glez Work Phone: Start: 11-12-2021 CT of head without contrast Dr. Dc Glez Work Phone: Start: 11-10-2021 Plain chest X-ray Dr. Gregorio Glze Work Phone: Viral antigen assay Dr. Dc Glez Work Phone: Plan of Treatment Date Care Activity Detail Author Start: 2024 12 Lead EKG performed by MARLENI 12 Lead EKG performed by MARLENI [facility] Start: 2024 End: 2024 Evaluation of diagnostic study results [facility] Start: 07-11-2024 Patient referral [facility] Work Phone: Start: 07-11-2024 Evaluation of diagnostic study results 12 Lead EKG performed by [facility] Start: 05-16-2024 Patient discharge [facility] Start: 05-04-2024 Evaluation of diagnostic study results 12 Lead EKG performed by [facility] Start: 05-15-2023 Patient discharge [facility] Start: 05-14-2023 End: 05-14-2023 Notification of physician [facility] Start: 05-14-2023 End: 05-14-2023 [facility] Start: 05-13-2023 Following clinical pathway protocol [facility] Start: 05-13-2023 Notification of physician [facility] Start: 05-13-2023 Admission procedure [facility] Start: 05-13-2023 Ambulation without limitation [facility] Start: 05-13-2023 Assessment of risk of venous thromboembolism [facility] Start: 05-13-2023 Insertion of catheter into peripheral vein [facility] Start: 05-13-2023 Measuring intake and output [facility] Start: 05-13-2023 Providing care according to standard [facility] Start: 05-13-2023 End: 05-13-2023 [facility] Start: 03-12-2023 Patient discharge [facility] Start: 03-12-2023 Following clinical pathway protocol [facility] Start: 03-12-2023 Assessment of risk of venous thromboembolism [facility] Start: 03-12-2023 Incentive spirometry [facility] Start: 03-12-2023 Insertion of catheter into peripheral vein [facility] Start: 03-12-2023 Measuring intake and output [facility] Start: 03-12-2023 Oxygen therapy [facility] Start: 03-12-2023 Providing care according to standard [facility] Start: 03-12-2023 Provision of activity privileges [facility] Start: 03-12-2023 Referral to station air traffic control specialist [facility] Start: 03-12-2023 Referral to occupational therapist [facility] Start: 03-12-2023 Referral to service [facility] Start: 03-12-2023 [facility] Start: 03-12-2023 Verification routine [facility] Start: 03-12-2023 Admission procedure [facility] Start: 03-12-2023 Hospital admission, emergency, from emergency room, medical nature [facility] Start: 03-12-2023 [facility] Start: 03-11-2023 Blood culture [facility] Start: 03-11-2023 [facility] Start: 03-11-2023 Bacteria identified in Blood by Culture Blood Culture [facility] Start: 03-02-2023 Procedure [facility] Start: 12-13-2022 Patient discharge [facility] Start: 11-20-2021 Patient discharge [facility] Work Phone: Start: 11-19-2021 Admission procedure [facility] Work Phone: Start: 11-19-2021 Assessment of risk of venous thromboembolism [facility] Work Phone: Start: 11-19-2021 Insertion of catheter into peripheral vein [facility] Work Phone: Start: 11-19-2021 Measuring intake and output [facility] Work Phone: Start: 11-19-2021 Providing care according to standard [facility] Work Phone: Start: 11-19-2021 [facility] Work Phone: Start: 11-19-2021 Following clinical pathway protocol [facility] Work Phone: Start: 11-19-2021 Scheduling [facility] Work Phone: Start: 11-19-2021 Bedrest [facility] Work Phone: Start: 11-19-2021 Elevation of head of bed [facility] Work Phone: Start: 11-19-2021 Assessment of risk of venous thromboembolism [facility] Work Phone: Start: 11-19-2021 Taking patient vital signs [facility] Work Phone: Start: 11-19-2021 Wound care [facility] Work Phone: Start: 11-19-2021 End: 11-19-2021 [facility] Work Phone: Start: 11-14-2021 Blood chemistry [facility] Work Phone: Start: 11-13-2021 Patient discharge [facility] Work Phone: Start: 11-12-2021 [facility] Work Phone: Start: 11-12-2021 Notification of physician [facility] Work Phone: Start: 11-12-2021 Patient education [facility] Work Phone: Start: 11-12-2021 Pulse taking [facility] Work Phone: Start: 11-12-2021 Taking patient vital signs [facility] Work Phone: Start: 11-12-2021 Wound care [facility] Work Phone: Start: 11-12-2021 [facility] Work Phone: Start: 11-11-2021 Catheterization of vein [facility] Work Phone: Start: 11-11-2021 Medication not administered [facility] Work Phone: Start: 11-11-2021 Preoperative care [facility] Work Phone: Start: 11-11-2021 [facility] Work Phone: Start: 11-10-2021 Application of intermittent pneumatic compression device [facility] Work Phone: Start: 11-10-2021 Following clinical pathway protocol [facility] Work Phone: Start: 11-10-2021 Assessment of risk of venous thromboembolism [facility] Work Phone: Start: 11-10-2021 Fall prevention [facility] Work Phone: Start: 11-10-2021 Inhalation therapy procedure [facility] Work Phone: Start: 11-10-2021 Insertion of catheter into peripheral vein [facility] Work Phone: Start: 11-10-2021 Introduction of urinary catheter [facility] Work Phone: Start: 11-10-2021 Measuring intake and output [facility] Work Phone: Start: 11-10-2021 Oxygen therapy [facility] Work Phone: Start: 11-10-2021 Providing care according to standard [facility] Work Phone: Start: 11-10-2021 Provision of activity privileges [facility] Work Phone: Start: 11-10-2021 Referral to station air traffic control specialist [facility] Work Phone: Start: 11-10-2021 [facility] [facility] Work Phone: Start: 11-10-2021 Admission procedure [facility] Work Phone: Start: 11-10-2021 Verification routine [facility] Work Phone: Start: 11-10-2021 [facility] Work Phone: Start: 11-10-2021 [facility] Work Phone: Cardioversion [facility] Complement C1 estera se inhibitor.functional/Comple ment C1 esterase inhibitor.total in Serum or Plasma [facility] Complement C4 [Mass/ volume] in Serum or Plasma [facility] Cortisol [Mass/volum e] in Serum or Plasma [facility] Hematocrit [Volume Fraction] of Blood [facility] Work Phone: Hemoglobin [Mass/vol ume] in Blood [facility] Work Phone: Leukocytes [#/volume ] in Blood [facility] Work Phone: Magnesium [Mass/volu me] in Serum or Plasma [facility] Work Phone: Mean corpuscular hem oglobin concentration determination [facility] Work Phone: Mean corpuscular hem oglobin determination [facility] Work Phone: Neutrophil count [facility] Work Phone: Neutrophil percent differential count [facility] Work Phone: Patient Education [facility] Work Phone: Patient referral [facility] Work Phone: Platelets [#/volume] in Blood [facility] Work Phone: Red blood cell count [facility] Work Phone: Red cell distributio n width determination [facility] Work Phone: Tryptase [Mass/volum e] in Serum or Plasma [facility] Immunizations Immunization Date Immunization Notes Care Provider Fa mili 12-12-2017 influenza, injectabl e, quadrivalent, preservative free Dr. Dc Glez Work Phone: [facility] 12-12-2017 influenza, seasonal, injectable [facility] Payers Date Payer Category Payer [employer] ( and others) [id number] 2023 Self-pay [id number] 2022 [employer] ( and others) [id number] 2017 Unknown 1960 Unknown [id number] 2.16.840.1.215435.3.579. 2.717 1960 Unknown [id number] 2.16.840.1.325094.3.579. 2.717 1960 Unknown [id number] 2.16.840.1.705167.3.579. 2.1243 1960 Unknown [id number] 2.16.840.1.089733.3.579. 2.1243 1960 Unknown [id number] 2.16.840.1.140110.3.579. 2.1243 1960 Unknown [id number] 2.840.1.774998.3.579. 2.1243 1960 Unknown [id number] 2.840.1.998385.3.579. 2.1243 1960 Unknown [id number] 2.840.1.513905.3.579. 2.1243 1960 Unknown [id number] 2.840.1.863694.3.579. 2.1243 Department [facility] ( and others) [id number] Unknown [employer] [id number] Unknown [id number] Unknown ANTHEM [id number] Unknown [employer] 1 [id number] Unknown [id number] Unknown [facility] [id number] Unknown [facility] [id number] Unknown [id number] 2.840.1.120289.3.579. 2.462 Unknown [id number] 2.840.1.588114.3.579. 2.462 Unknown [id number] 2.840.1.821498.3.579. 2.462 Unknown [id number] 2.840.1.052204.3.579. 2.462 Unknown [id number] 2.16.840.1.357511.3.579. 2.462 Unknown [id number] 2.16.840.1.936966.3.579. 2.462 Unknown [id number] 2.16.840.1.800752.3.579. 2.462 Unknown [id number] 2.16.840.1.246148.3.579. 2.462 Unknown [id number] 2.16.840.1.203663.3.579. 2.462 Unknown [id number] 2.16.840.1.190055.3.579. 2.462 Unknown [id number] 2.16.840.1.588394.3.579. 2.462 Unknown [id number] 2.16.840.1.822232.3.579. 2.462 Unknown [id number] 2.16.840.1.953797.3.579. 2.462 Unknown [id number] 2.16.840.1.089295.3.579. 2.462 Unknown [id number] 2.16.840.1.906677.3.579. 2.462 Unknown [id number] 2.16.840.1.624568.3.579. 2.462 Unknown [id number] 2.16.840.1.912883.3.579. 2.462 Unknown [id number] 2.16.840.1.632665.3.579. 2.462 Unknown [id number] 2.16.840.1.133413.3.579. 2.462 Unknown [id number] 2.16840.1.207248.3.579. 2.462 Unknown [id number] 2.16840.1.436557.3.579. 2.462 Unknown [id number] 2.16.840.1.613755.3.579. 2.462 Social History Date Type Detail Facility Start: 12-26-2020 End: 05-13-2023 Tobacco smoking status NHIS Unknown if ever smoked [facility] Start: 12-12-2017 Occasional [facility] Start: 12-12-2017 Spouse/ Signif icant Other [facility] Start: 1960 Sex Assigned At Male W [facility] Start: 11-03-2017 None [facility] Start: 11-21-2023 End: 05-16-2024 Tobacco smoking status NHIS Never smoked tobacco (finding) [facility] Start: 05-09-2024 End: 05-16-2024 Sex Male (finding) [facility] Sex Male [facility] Equipment Procedure Code Equipment Code Equipment Origin al Text Equipment Identifier Dates DOUGH,CEMENT 6191-1-010 FDA Start: 08-15-2017 DOUGH,CEMENT 6191-1-010 FDA Start: 08-15-2017 TRIATHLON CRUC R ET FEM COMP FDA Start: 08-15-2017 TRIATHLON PRIM T IB BASEPLATE FDA Start: 08-15-2017 TRIATHLON X3 PATELLA FDA Star t: 08-15-2017 TRIATHLON X3 TIB IAL INSERT-CS FDA Start: 08-15-2017 TRIATHLON X3 TIB IAL INSERT-CS FDA Start: 09-19-2017 DOUGH,CEMENT 6191-1-010 FDA Start: 08-15-2017 DOUGH,CEMENT 6191-1-010 FDA Start: 08-15-2017 TRIATHLON CRUC R ET FEM COMP FDA Start: 08-15-2017 TRIATHLON PRIM T IB BASEPLATE FDA Start: 08-15-2017 TRIATHLON X3 PATELLA FDA Star t: 08-15-2017 TRIATHLON X3 TIB IAL INSERT-CS FDA Start: 08-15-2017 TRIATHLON X3 TIB IAL INSERT-CS FDA Start: 09-19-2017 DOUGH,CEMENT 6191-1-010 FDA Start: 08-15-2017 DOUGH,CEMENT 6191-1-010 FDA Start: 08-15-2017 TRIATHLON CRUC R ET FEM COMP FDA Start: 08-15-2017 TRIATHLON PRIM T IB BASEPLATE FDA Start: 08-15-2017 TRIATHLON X3 PATELLA FDA Star t: 08-15-2017 TRIATHLON X3 TIB IAL INSERT-CS FDA Start: 08-15-2017 TRIATHLON X3 TIB IAL INSERT-CS FDA Start: 09-19-2017 DOUGH,CEMENT 6191-1-010 FDA Start: 08-15-2017 DOUGH,CEMENT 6191-1-010 FDA Start: 08-15-2017 TRIATHLON CRUC R ET FEM COMP FDA Start: 08-15-2017 TRIATHLON PRIM T IB BASEPLATE FDA Start: 08-15-2017 TRIATHLON X3 PATELLA FDA Star t: 08-15-2017 TRIATHLON X3 TIB IAL INSERT-CS FDA Start: 08-15-2017 TRIATHLON X3 TIB IAL INSERT-CS FDA Start: 09-19-2017 DOUGH,CEMENT 6191-1-010 FDA Start: 08-15-2017 DOUGH,CEMENT 6191-1-010 FDA Start: 08-15-2017 TRIATHLON CRUC R ET FEM COMP FDA Start: 08-15-2017 TRIATHLON PRIM T IB BASEPLATE FDA Start: 08-15-2017 TRIATHLON X3 PATELLA FDA Star t: 08-15-2017 TRIATHLON X3 TIB IAL INSERT-CS FDA Start: 08-15-2017 TRIATHLON X3 TIB IAL INSERT-CS FDA Start: 09-19-2017 DOUGH,CEMENT 6191-1-010 FDA Start: 08-15-2017 DOUGH,CEMENT 6191-1-010 FDA Start: 08-15-2017 TRIATHLON CRUC R ET FEM COMP FDA Start: 08-15-2017 TRIATHLON PRIM T IB BASEPLATE FDA Start: 08-15-2017 TRIATHLON X3 PATELLA FDA Star t: 08-15-2017 TRIATHLON X3 TIB IAL INSERT-CS FDA Start: 08-15-2017 TRIATHLON X3 TIB IAL INSERT-CS FDA Start: 09-19-2017 ([id number]) Dual-chamber implantable pacemaker, rate-responsive ()[id number] FDA Start: 11-19-2021 ([id number]) Endocardial paci ng lead [id number] FDA Start: 11-19-2021 ([id number]) Augustina le lead [id number] FDA Start: 11-19-2021 DOUGH,CEMENT 6191-1-010 FDA Start: 08-15-2017 DOUGH,CEMENT 6191-1-010 FDA Start: 08-15-2017 TRIATHLON CRUC R ET FEM COMP FDA Start: 08-15-2017 TRIATHLON PRIM T IB BASEPLATE FDA Start: 08-15-2017 TRIATHLON X3 PATELLA FDA Star t: 08-15-2017 TRIATHLON X3 TIB IAL INSERT-CS FDA Start: 08-15-2017 TRIATHLON X3 TIB IAL INSERT-CS FDA Start: 09-19-2017 DOUGH,CEMENT 6191-1-010 FDA Start: 08-15-2017 DOUGH,CEMENT 6191-1-010 FDA Start: 08-15-2017 TRIATHLON CRUC R ET FEM COMP FDA Start: 08-15-2017 TRIATHLON PRIM T IB BASEPLATE FDA Start: 08-15-2017 TRIATHLON X3 PATELLA FDA Star t: 08-15-2017 TRIATHLON X3 TIB IAL INSERT-CS FDA Start: 08-15-2017 TRIATHLON X3 TIB IAL INSERT-CS FDA Start: 09-19-2017 DOUGH,CEMENT 6191-1-010 FDA Start: 08-15-2017 DOUGH,CEMENT 6191-1-010 FDA Start: 08-15-2017 TRIATHLON CRUC R ET FEM COMP FDA Start: 08-15-2017 TRIATHLON PRIM T IB BASEPLATE FDA Start: 08-15-2017 TRIATHLON X3 PATELLA FDA Star t: 08-15-2017 TRIATHLON X3 TIB IAL INSERT-CS FDA Start: 08-15-2017 TRIATHLON X3 TIB IAL INSERT-CS FDA Start: 09-19-2017 DOUGH,CEMENT 6191-1-010 FDA Start: 08-15-2017 DOUGH,CEMENT 6191-1-010 FDA Start: 08-15-2017 TRIATHLON CRUC R ET FEM COMP FDA Start: 08-15-2017 TRIATHLON PRIM T IB BASEPLATE FDA Start: 08-15-2017 TRIATHLON X3 PATELLA FDA Star t: 08-15-2017 TRIATHLON X3 TIB IAL INSERT-CS FDA Start: 08-15-2017 TRIATHLON X3 TIB IAL INSERT-CS FDA Start: 09-19-2017 DOUGH,CEMENT 6191-1-010 FDA Start: 08-15-2017 DOUGH,CEMENT 6191-1-010 FDA Start: 08-15-2017 TRIATHLON CRUC R ET FEM COMP FDA Start: 08-15-2017 TRIATHLON PRIM T IB BASEPLATE FDA Start: 08-15-2017 TRIATHLON X3 PATELLA FDA Star t: 08-15-2017 TRIATHLON X3 TIB IAL INSERT-CS FDA Start: 08-15-2017 TRIATHLON X3 TIB IAL INSERT-CS FDA Start: 09-19-2017 DOUGH,CEMENT 6191-1-010 FDA Start: 08-15-2017 DOUGH,CEMENT 6191-1-010 FDA Start: 08-15-2017 TRIATHLON CRUC R ET FEM COMP FDA Start: 08-15-2017 TRIATHLON PRIM T IB BASEPLATE FDA Start: 08-15-2017 TRIATHLON X3 PATELLA FDA Star t: 08-15-2017 TRIATHLON X3 TIB IAL INSERT-CS FDA Start: 08-15-2017 TRIATHLON X3 TIB IAL INSERT-CS FDA Start: 09-19-2017 DOUGH,CEMENT 6191-1-010 FDA Start: 08-15-2017 DOUGH,CEMENT 6191-1-010 FDA Start: 08-15-2017 TRIATHLON CRUC R ET FEM COMP FDA Start: 08-15-2017 TRIATHLON PRIM T IB BASEPLATE FDA Start: 08-15-2017 TRIATHLON X3 PATELLA FDA Star t: 08-15-2017 TRIATHLON X3 TIB IAL INSERT-CS FDA Start: 08-15-2017 TRIATHLON X3 TIB IAL INSERT-CS FDA Start: 09-19-2017 DOUGH,CEMENT 6191-1-010 FDA Start: 08-15-2017 DOUGH,CEMENT 6191-1-010 FDA Start: 08-15-2017 TRIATHLON CRUC R ET FEM COMP FDA Start: 08-15-2017 TRIATHLON PRIM T IB BASEPLATE FDA Start: 08-15-2017 TRIATHLON X3 PATELLA FDA Star t: 08-15-2017 TRIATHLON X3 TIB IAL INSERT-CS FDA Start: 08-15-2017 TRIATHLON X3 TIB IAL INSERT-CS FDA Start: 09-19-2017 DOUGH,CEMENT 6191-1-010 FDA Start: 08-15-2017 DOUGH,CEMENT 6191-1-010 FDA Start: 08-15-2017 TRIATHLON CRUC R ET FEM COMP FDA Start: 08-15-2017 TRIATHLON PRIM T IB BASEPLATE FDA Start: 08-15-2017 TRIATHLON X3 PATELLA FDA Star t: 08-15-2017 TRIATHLON X3 TIB IAL INSERT-CS FDA Start: 08-15-2017 TRIATHLON X3 TIB IAL INSERT-CS FDA Start: 09-19-2017 DOUGH,CEMENT 6191-1-010 FDA Start: 08-15-2017 DOUGH,CEMENT 6191-1-010 FDA Start: 08-15-2017 TRIATHLON CRUC R ET FEM COMP FDA Start: 08-15-2017 TRIATHLON PRIM T IB BASEPLATE FDA Start: 08-15-2017 TRIATHLON X3 PATELLA FDA Star t: 08-15-2017 TRIATHLON X3 TIB IAL INSERT-CS FDA Start: 08-15-2017 TRIATHLON X3 TIB IAL INSERT-CS FDA Start: 09-19-2017 DOUGH,CEMENT 6191-1-010 FDA Start: 08-15-2017 DOUGH,CEMENT 6191-1-010 FDA Start: 08-15-2017 TRIATHLON CRUC R ET FEM COMP FDA Start: 08-15-2017 TRIATHLON PRIM T IB BASEPLATE FDA Start: 08-15-2017 TRIATHLON X3 PATELLA FDA Star t: 08-15-2017 TRIATHLON X3 TIB IAL INSERT-CS FDA Start: 08-15-2017 TRIATHLON X3 TIB IAL INSERT-CS FDA Start: 09-19-2017 DOUGH,CEMENT 6191-1-010 FDA Start: 08-15-2017 DOUGH,CEMENT 6191-1-010 FDA Start: 08-15-2017 TRIATHLON CRUC R ET FEM COMP FDA Start: 08-15-2017 TRIATHLON PRIM T IB BASEPLATE FDA Start: 08-15-2017 TRIATHLON X3 PATELLA FDA Star t: 08-15-2017 TRIATHLON X3 TIB IAL INSERT-CS FDA Start: 08-15-2017 TRIATHLON X3 TIB IAL INSERT-CS FDA Start: 09-19-2017 DOUGH,CEMENT 6191-1-010 FDA Start: 08-15-2017 DOUGH,CEMENT 6191-1-010 FDA Start: 08-15-2017 TRIATHLON CRUC R ET FEM COMP FDA Start: 08-15-2017 TRIATHLON PRIM T IB BASEPLATE FDA Start: 08-15-2017 TRIATHLON X3 PATELLA FDA Star t: 08-15-2017 TRIATHLON X3 TIB IAL INSERT-CS FDA Start: 08-15-2017 TRIATHLON X3 TIB IAL INSERT-CS FDA Start: 09-19-2017 DOUGH,CEMENT 6191-1-010 FDA Start: 08-15-2017 DOUGH,CEMENT 6191-1-010 FDA Start: 08-15-2017 TRIATHLON CRUC R ET FEM COMP FDA Start: 08-15-2017 TRIATHLON PRIM T IB BASEPLATE FDA Start: 08-15-2017 TRIATHLON X3 PATELLA FDA Star t: 08-15-2017 TRIATHLON X3 TIB IAL INSERT-CS FDA Start: 08-15-2017 TRIATHLON X3 TIB IAL INSERT-CS FDA Start: 09-19-2017 DOUGH,CEMENT 6191-1-010 FDA Start: 08-15-2017 DOUGH,CEMENT 6191-1-010 FDA Start: 08-15-2017 TRIATHLON CRUC R ET FEM COMP FDA Start: 08-15-2017 TRIATHLON PRIM T IB BASEPLATE FDA Start: 08-15-2017 TRIATHLON X3 PATELLA FDA Star t: 08-15-2017 TRIATHLON X3 TIB IAL INSERT-CS FDA Start: 08-15-2017 TRIATHLON X3 TIB IAL INSERT-CS FDA Start: 09-19-2017 DOUGH,CEMENT 6191-1-010 FDA Start: 08-15-2017 DOUGH,CEMENT 6191-1-010 FDA Start: 08-15-2017 TRIATHLON CRUC R ET FEM COMP FDA Start: 08-15-2017 TRIATHLON PRIM T IB BASEPLATE FDA Start: 08-15-2017 TRIATHLON X3 PATELLA FDA Star t: 08-15-2017 TRIATHLON X3 TIB IAL INSERT-CS FDA Start: 08-15-2017 TRIATHLON X3 TIB IAL INSERT-CS FDA Start: 09-19-2017 FABRIZIO REED 6191-1-010 FDA Start: 08-15-2017 FABRIZIO REED 6191-1-010 FDA Start: 08-15-2017 TRIATHLON CRUC R ET FEM COMP FDA Start: 08-15-2017 TRIATHLON PRIM T IB BASEPLATE FDA Start: 08-15-2017 TRIATHLON X3 PATELLA FDA Star t: 08-15-2017 TRIATHLON X3 TIB IAL INSERT-CS FDA Start: 08-15-2017 TRIATHLON X3 TIB IAL INSERT-CS FDA Start: 09-19-2017 Goals Date Patient Goal Desired Activity /State Functional Status Date Assessment Result Facility 05-15-2023 Functional status Up ad aundrea [facility] Work Phone: 03-12-2023 Functional status Activity Abili ty Unable to Assess [facility] Work Phone: 11-20-2021 Functional status Bedrest [facility] Work Phone: 11-13-2021 Functional status Ambulates [facility] Work Phone: Mental Status Date Assessment Result Facility 05-15-2023 Cognitive function Level Of Cons ciousness Awake;Alert [facility] Work Phone: 05-14-2023 Cognitive function Voice/Name [facility] Work Phone: 03-12-2023 Cognitive function Voice/Name [facility] Work Phone: 03-11-2023 Cognitive function Level Of Cons ciousness Awake;Alert;Appropriate [facility] Work Phone: 11-20-2021 Cognitive function Voice/Name [facility] Work Phone: 11-13-2021 Cognitive function Voice/Name [facility] Work Phone: 11-10-2021 Cognitive function Level Of Cons ciousness Awake;Alert;Appropriate [facility] Work Phone: Clinical Notes 10-22-2021 to 2024 Note Date & Type Note Facility 2024 Evaluation note Diagnosis Onset Date Resolution Persistent atrial fibrillation acute October 11 11:30am Presence of cardiac pacemaker chronic October 11 11:30am Sick sinus syndrome resolved Augus t 2024 11:30am [facility] Work Phone: 1(606) 557-156905-21-2025 Evaluation note* Diagnosis Onset Date Resolution Status Admit Date Orthostatic hypotension acute M 2024 2:40pm Persistent atrial fibrillation acute July 11, 2024 2:40pm Presence of cardiac pacemaker chroni c July 11, 2024 2:40pm [facility] Work Phone: 1(487) 904-361803-26-2025 Procedure note [facility] Medical Records Department [address] [place] [address] Procedure Report 05/16/24 1248 MR#: [id number] Acct: [id number] Name: HUNG PECK Rep #:[id number] : 1960 63 From: Sanjiv Bowden DO PCP: Dr. Dc Glez MD Status:REG S DC Location: [facility] Procedures Pulmonary Pulmonary Procedures /Diagnostic Testin Con Sedation Non-invasive Procedural Procedure Information Date of Procedure: 05/16/24 Description of procedure: CONSCIOUS SEDATION REPORT DATE OF SERVICE: May 16, 2024 BRIEF HISTORY OF PRESENT ILLNESS: The patient is a 63-year-old male who presented to [facility] for elective outpatient cardioversion due to a history of atrial fibrillation. The patient did undergo a prior cardioversion in April 2023, during which time, propofol was utilized for sedation purposes. The patient denied any prior anesthetic complications. He is systemically anticoagulated on Xarelto. His last surfaceechocardiogram demonstrated an ejection fraction of approximately 60%. PHYSICAL EXAMINATION: VITAL SIGNS: Reviewed and were acceptable. GENERAL: The patient is a male, in no apparent distress, speaking in full sentences. HEENT: Normocephalic, atraumatic. Mucous membranes are moist and pink. Good mouth opening noted. Trachea is midline. Good neck mobility. CHEST: S1, S2 irregularly irregular. No murmurs, rubs or gallops were noted. LUNGS: Clear to auscultation bilaterally without appreciable wheezes, rales or rhonchi. ABDOMEN: Soft, nontender, nondistended. Positive bowel sounds. EXTREMITIES: There is no clubbing, cyanosis or edema. ASA Class: II DESCRIPTION OF PROCEDURE: After confirmation of informed consent, the patient's anesthesia plan was reviewed in detail. Propofol was chosen. Risks and benefits were reviewed and the patient agreed to proceed. At 1220, the patient was given 50 mg of propofol. The patient achieved an appropriate level of sedation and was given a200 joule synchronized cardioversion by Dr. Cano at the bedside. This was successful in achieving normal sinus rhythm. The patient was monitored until 1235, at which time he reached his baseline mental status and function. The patient tolerated the procedure well. COMPLICATIONS: None ESTIMATED BLOOD LOSS: None RECOMMENDATIONS: Okay to recover in usual fashion. 05/16/24 1252 Cosigner Signature (if applicable): CC: Dr. Trae Cano MD; Dr. Sanjiv Bowden DO; Dr. Dc Glez MD~ Signed [facility]03-26-2025 [facility] Medical Records Department [address] [place] [address] History and Physical 05/16/24 1031 MR#: [id number] Acct: [id number] Name: HUNG PECK Rep #: [id number] : 1960 63 From: Trae Cano MD PCP: Dr. Dc Glez MD Status:[facility] Location: [facility] History of Present Illness Details: HUNG PECK, is a 63 year old white male with a hx of syncope, PACs/PVCs, atrial fibrillation, wide-complex tachycardia with differential of a ventricular rhythm versus atrial fibrillation with aberrancy, and factor V Leiden deficiency with previous thromboembolic events. Patient was admitted and evaluated at [facility] in October 2021 for symptomatic bradycardia. Echocardiogram on 11/10/2021 showed ejection fraction 60%, mildly enlarged left atrium, mild mitral valve insufficiency, and RVSP of 36 mmHg. Heart catheterization on 11/12/2021 showed single-vessel mild coronary artery disease of the LAD. He underwent pacemaker placement on 11/19/[address] Rios for sick sinus syndrome. He did undergo a DCCV 12/13/22. Pt was hospitalized in February 2023 for near-syncope and atrial fibrillation with RVR. Remote report from 03/04/2023 showed 60% cumulative atrial arrhythmia burden with 2274 high ventricular rate episodes. His metoprolol was reduced on account of orthostatic changes and reduced systolic blood pressure at 70 mmHg. It is noted that he is intolerant to amiodarone. He underwent DC cardioversion successfully and also underwent sotalol loading. In September patient was noted to be in atrial fibrillation. He was not aware of this. Patient was initially scheduled to undergo a cardioversion in November 22, 2023. At that time he was noted to be in sinus rhythm. Patient was seen in the office in December 2023. He had returned to atrial fibrillation at the end of November. He has remained in atrial fibrillation. We did talk about a cardioversion at that time however his was undergoing back surgery and he felt that he needed to take care of her before he pursued this. He is here today to now discuss undergoing a cardioversion. Pt does feel that he is more fatigued with his Afib. His remote checks still indicate Afib. Intake Vital Signs 01/10/2414:28 05/04/2506:48 Height 6 ft 2 in 6 ft 2 in Weight: 229 lb BMI 29.4 BP 126/81 H Blood Pressure Location Lt brachial Position Sitting Respiration 18 Pulse 75 Pulse Source Monitor Pulse Oximetry (%) 94 Intake Visit Reasons: DCCV Discussion/EKG Maintenance Engineer Required: No Is patient in pain?: No Allergies ciprofloxacin Allergy (Unknown, Verified 05/04/24 13:21) Rashceftriaxone Allergy (Verified 05/04/24 13:21) RashIodinated Contrast Media (contrast dye - iodinated) Allergy (Verified 05/04/24 13:21) Angioedemalinezolid Allergy (Verified 05/04/24 13:21) RashSulfa (Sulfonamide Antibiotics) Allergy (Verified 05/04/24 13:21) Unknownvancomycin Allergy (Verified 05/04/24 13:21) Fever and skin rash Medications ???Medication ???Instructions ???Recorded ???Confirmed ???Type epinephrine 0.3 mg/0.3 mL 0.3 mg (0.3 mL) IM Q10M PRN PRN 02/06/22 05/04/24 Rx injection, auto-injector (EpiPen anaphylaxis #2 ea 2-[place]) fludrocortisone 0.1 mg tablet 0.1 mg PO DAILY hypotension #90 10/05/23 05/04/24 Rx tabs tamsulosin 0.4 mg capsule (Flomax) 0.4 mg PO QHS 10/07/23 05/04/24 History rivaroxaban 20 mg tablet 20 mg PO DAILY blood thinner #90 10/31/23 05/04/24 Rx tabs sotalol 120 mg tablet 120 mg PO BID 90 days #180 tabs 02/20/24 05/04/24 Rx rosuvastatin 5 mg tablet 5 mg PO QDAY 05/04/24 05/04/24 History sildenafil 50 mg tablet 50 mg PO QDAY 05/04/24 05/04/24 History Ejection fraction %: 60 Have you fallen in the past year?: No Nurse's Note: patient is on a cholesterol medication, but does not know what it is. [facility] Medical History Persistent atrial fibrillation History of cardioversion Atrial flutter with rapid ventricular response Atrial flutter Presence of cardiac pacemaker History of left heart catheterization (LHC) ( 11/12/21) Syncope and collapse halfway 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 amiodarone Paroxysmal atrial fibrillation Wide-complex tachycardia Asymptomatic premature ventricular contractions Premature atrial contraction Syncope and collapse Hematuria Factor V Leiden Abscess of right thigh DAYNA (acute kidney injury) Coagulopathy Septic shock Fever with exanthematous rash 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 knee joint Atrial fibrillation with RVR Elevated LFTs Acute cystitis Severe sepsis Anemia History of pulmonary embolism History of DVT (deep vein thrombosis) Surgical History History of ankle surgery Status post total right knee replacement Family H (more content not included)...[facility]03-14-2025 Evaluation note* Diagnosis Onset Date Resolution Status Admit Date Persistent atrial fibrillation acute May 04, 2024 1:16pm Presence of cardiac pacemaker chroni c May 04, 2024 1:16pm Wide-complex tachycardia chronic May 04, 2024 1:16pm [facility] Work Phone: 1(232) 777-203003-14-2025 Evaluation note* Diagnosis Onset Date Resolution Status Admit Date Persistent atrial fibrillation acute May 04, 2024 1:16pm Presence of cardiac pacemaker chroni c May 04, 2024 1:16pm Wide-complex tachycardia chronic May 04, 2024 1:16pm Orthostatic hypotension acute M 2024 2:40pm Persistent atrial fibrillation acute July 11, 2024 2:40pm Presence of cardiac pacemaker chroni c July 11, 2024 2:40pm [facility] Work Phone: 1(498) 457-539903-14-2025 Radiology Diagnostic study note [facility] Imaging Services [address] [place] [address] Chest PA and Lateral MR#: [id number] Acct: [id number] Name: HUNG PECK Rep #: [id number] : 1960 M 63 From: Fariba Perdue MD PCP: Dr. cD Glez MD Status: REG C MARYELLEN Study:Chest PA and Lateral Date of Exam: 05/04/24 Exam# [id number] Ordering Dr: Kia Patiño PA EXAM: XR Chest, 2 Views CLINICAL INDICATION: SOB TECHNIQUE: Frontal and lateral views of the chest. COMPARISON: XR Chest dated 11/09/2023 FINDINGS: LUNGS AND PLEURAL SPACES: Pulmonary venous congestion. No consolidation. No pneumothorax. HEART: Unremarkable. No cardiomegaly. MEDIASTINUM: Unremarkable. Normal mediastinal contour. BONES/JOINTS: Unremarkable. No acute fracture. TUBES, LINES AND DEVICES: Left-sided cardiac pacemaker. RAD/Chest PA and Lateral IMPRESSION: Pulmonary venous congestion. No significant change from the prior exam. Reading Location: [facility] CC: Dr. Dc Glez MD; MAE Hernández ~ Security Operations Center Operator: Signed [facility]03-05-2025 Radiology Diagnostic study note [facility] Imaging Services [address] [place] [address] Knee 4 or More Views MR#: [id number] Acct: [id number] Name: HUNG PECK Rep #: [id number] : 1960 M 63 From: Rocio Littlejohn MD PCP: Dr. Dc Glez MD Status: LASHON BOJORQUEZ Study:Knee 4 or More Views Date of Exam: 04/25/24 Exam# [id number] Ordering Dr: Dc Glez MD PROCEDURE: KNEE 4 OR MORE VIEWS REASON FOR EXAM: Left knee pain, swelling TECHNIQUE: 4 view(s) of the left knee COMPARISON: None. FINDINGS: No fracture. No suspicious bone lesion. Severe tricompartmental degenerative changes No effusion. Soft tissues are unremarkable. RAD/Knee 4 or More Views IMPRESSION: Severe degenerative changes in the left knee with no acute osseous abnormality. [facility] CC: Dr. Dc Glez MD ~ [employer] Operator: Signed [facility]11-20-2024 Evaluation note* Diagnosis Onset Date Resolution Status Admit Date Paroxysmal atrial fibrillation chron ic January 11, 2024 2:26pm Presence of cardiac pacemaker chroni c January 11, 2024 2:26pm Wide-complex tachycardia chronic January 11, 2024 2:26pm Persistent atrial fibrillation acute May 04, 2024 1:16pm Presence of cardiac pacemaker chroni c May 04, 2024 1:16pm Wide-complex tachycardia chronic May 04, 2024 1:16pm [facility] Work Phone: 1(748) 151-266903-23-2024 Progress note Author Reece Preston [facility] May 14, 2023 4:22pm Note Date/Time May 14, 2023 4:2 2pm [facility] Medical Records Department [address] [place] [address] Progress Note - Cardiology 05/14/23 1618 MR#: [id number] Acct: [id number] Name: HUNG PECK Rep #:[id number] : 1960 62 From: Reece Preston MD PCP: Dr. Dc Glez MD Status:ADM I N Location: [place] [address] Subjective Subjective Seen and evaluated at bedside along with the nursing staff Comfortable no symptoms reported. Objective Data Vital Signs: Vital Signs Temp Pulse Resp BP Pulse Ox O2 Del Method 97.8 F 60 16 103/75 94 Room Air 05/14/23 15:21 05/14/23 15:21 05/14/23 15:21 05/14/23 15:21 05/14/23 15:21 05/14/23 15:21 Oxygen Delivery Method Room Air Weight: 232 lb 12.8 oz Body Mass Index (BMI) 29.9 Intake & Output: Intake and Output for Last 24 Hours 05/12/23 05/13/23 05/14/23 23:59 23:59 23:59 Intake Total 420 / 420 Balance 420 / 420 Lab / Micro Data 05/14/23 05:32 Labs: Laboratory Results - last 24 hr 05/14/23 05:32: Sodium 140, Potassium 4.1, Chloride 108 H, Carbon Dioxide 28.0, Anion Gap 4 L, BUN 20 H, Creatinine 1.00, Estim Creat Clear Calc 99.19, Est GFR (MDRD) Af Amer 97, Est GFR (MDRD) Non-Af 80, BUN/Creatinine Ratio 20.0, Glucose 96, Calcium 8.3 L, Phosphorus 2.7, Magnesium 2.4 Cardiology Labs/Tests 05/14/23 05:32: Sodium 140, Potassium 4.1, Chloride 108 H, Carbon Dioxide 28.0, Anion Gap 4 L, BUN 20 H, Creatinine 1.00, Est GFR (MDRD) Af Amer 97, Est GFR (MDRD) Non-Af 80, BUN/Creatinine Ratio 20.0, Glucose 96, Calcium 8.3 L, Phosphorus 2.7, Magnesium 2.4 Rhythm: EKG: ECHO: Stress Test: Cardiac Cath: PCI: CT Surgery: Holter monitor: EPS: PPM: CXR: Chest CT Scan: Physical Exam Cardio Cardio Narrative: Review court recording monitor showed normal sinus rhythm With a paced atrial rhythm episode of 6 beats of nonsustained V. tach Stable hemodynamically cardiac exam S1-S2 is regular Chest exam clear auscultation bilateral. Assessment & Plan Assessment/Plan (1) Persistent atrial fibrillation: (2) Chronic anticoagulation: (3) Factor V Leiden: (4) Sick sinus syndrome: (5) Presence of cardiac pacemaker: PLAN: Plan 62-year-old patient admitted following elective DCCVB Has a history of persistent atrial fibrillation Patient started on sotalol therapy Has a underlying sick sinus syndrome with a permanent pacemaker. He remains stable on sotalol maintaining normal sinus rhythm and intermittent atrial paced rhythm With episode of nonsustained ventricular tachycardia of 6 beats Electrolytes were normal including magnesium and potassium and patient has been stable hemodynamically. Cardiac care plan recommendation. Will continue to monitor his electrolytes and renal function The creatinine has been within normal The dosage of sotalol discussed which is 80 mg twice daily in addition patient is on chronic anticoagulation using rivaroxaban 20 mg at bedtime. Patient to follow-up with his primary station air traffic control specialist Dr. Sadler for continuation ofcardiac care and for monitoring antiarrhythmic medication sotalol 05/14/23 1622 <Electronically signed by Reece Preston MD> Cosigner Signature (if applicable): CC: ~ Signed [facility] Work Phone: 1(555) 431-744503-23-2024 Discharge summary [facility] May 14, 2023 4:11pm Note Date/Time May 14, 2023 4:0 6pm [facility] Medical Records Department [address] [place] [address] Instructions for Home/Discharge Instructions 05/14/23 1605 MR#: [id number] Acct: [id number] Name: HUNG PECK Rep #:[id number] : 1960 62 From: Reece Preston MD PCP: Dr. Dc Glez MD Status:ADM I N Discharge Instructions Diet Discharge Diet: No restrictions Activity Discharge Activity: Return to Normal Activity Weight Bearing Status: Full weight bearing Follow Up Care Test Results: Test results from this visit will be discussed in further detail at your follow- up appointment, if applicable. Discharge Plan Admission Admit Date/Time: 05/13/23 12:12 Primary Reason for Your Visit: A fib DCCV Attending Provider: Trae Cano Primary Care Provider: Dc Glez Consulting Providers: Kia Kirkpatrick Discharge Orders/Prescriptions Prescriptions: New sotalol 80 mg Tablet 80 mg PO BID Qty: 60 0RF Continued epinephrine [EpiPen 2-Franklin] 0.3 mg/0.3 mL auto-injector 0.3 mg IM Q10M PRN PRN (Reason: anaphylaxis) Qty: 2 0RF Rx Instructions: for 2 doses rivaroxaban 20 mg tablet 20 mg PO DAILY Qty: 90 3RF Hold Instructions: Resume on 11/27/21. If pacemaker / wound check stable. Rx Instructions: Hold after dose on 11/17/2021 for pacemaker placement fludrocortisone 0.1 mg tablet 0.1 mg PO DAILY Qty: 90 3RF Discontinued metoprolol tartrate 25 mg tablet 25 mg PO BID Qty: 180 3RF Referrals / Follow Up: Dc Glez MD [Primary Care Provider] - Trae Cano MD [Med Staff - Active Staff] - Within 1 Week Disposition Disposition (needs filled in before D/C Order can be placed): Home, Self Care 05/14/23 1611<Electronically signed by Reece Preston MD>Reece Preston MD CC: Dr. Dc Glez MD; MAE Hernández ~ Signed [facility] Work Phone: 1(793) 375-190803-22-2024 History and physical note Author Trae Cano [facility] May 13, 2023 2:23pm Note Date/Time May 13, 2023 1:2 5pm [facility] Medical Records Department [address] [place] [address] H&P Exam - Cardiology 05/13/23 1319 MR#: [id number] Acct: [id number] Name: HUNG PECK Rep #:[id number] : 1960 62 From: Trae Cano MD PCP: Dr. Dc Glez MD Status:ADM I N Location: [place] [address] HPI - General General Date of Admission: 05/13/23 Chief Complaint: Afib HPI Narrative HUNG PECK, is a 62 M who presents here today for a DCCV and the initiation of sotalol therapy. He has a hx of syncope, PACs/PVCs, atrial fibrillation, wide- complex tachycardia with differential of a ventricular rhythmversus atrial fibrillation with aberrancy, and factor V Leiden deficiency with previous thromboembolic events. Patient was admitted and evaluated at [facility] in October 2021 for symptomatic bradycardia. Echocardiogram on 11/10/2021 showed ejection fraction 60%, mildly enlarged left atrium, mild mitral valve insufficiency, and RVSP of 36 mmHg. Heart catheterization on 11/12/2021 showed single-vessel mild coronary artery disease of the LAD. He underwent pacemaker placement on 11/19/[address] Rios for sick sinus syndrome. He did undergo a DCCV 12/13/22. Pt was hospitalized in February 2023 for near-syncope and atrial fibrillation with RVR. Remote report from 03/04/2023 showed 60% cumulative atrial arrhythmia burden with 2274 high ventricular rate episodes. His metoprolol was reduced on account of orthostatic changes and reduced systolic blood pressure at 70 mmHg. It is noted that he is intolerant to amiodarone. During a phone call after he was discharged home it was discussed antiarrhythmic therapy such as sotalol/Tikosyn therapy versus EP evaluation for ablation. Prior to pursuing ablation, patient wished to try sotalol therapy. [facility] Medical History (Updated 05/13/23 @ 13:23 by Kia WALL, PA) Abscess of right thigh Acute cystitis DAYNA (acute kidney injury) Anemia Asymptomatic premature ventricular contractions Atrial fibrillation with RVR Atrial flutter Atrial flutter with rapid ventricular response Coagulopathy Elevated LFTs Factor V Leiden Fever with exanthematous rash Hematuria History of DVT (deep vein thrombosis) History of left heart catheterization (LHC) (~11/12/21) History of pulmonary embolism 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 knee joint halfway 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 amiodarone Paroxysmal atrial fibrillation Persistent atrial fibrillation Premature atrial contraction Presence of cardiac pacemaker Septic shock Severe sepsis Syncope and collapse Syncope and collapse Wide-complex tachycardia Home Medications epinephrine 0.3 mg/0.3 mL injection, auto-injector (EpiPen 2-Franklin) 0.3 mg (0.3 mL) IM Q10M PRN PRN anaphylaxis #2 ea 02/06/22 [Rx Last Taken Unknown] rivaroxaban 20 mg tablet 20 mg PO DAILY blood thinner #90 tabs 06/29/22 [Rx Last Taken 05/12/23 17:00] fludrocortisone 0.1 mg tablet 0.1 mg PO DAILY hypotension #90 tabs 07/13/22 [Rx Last Taken Unknown] metoprolol tartrate 25 mg tablet 25 mg PO BID #180 tabs 04/15/23 [Rx Last Taken 05/13/23] Allergy/AdvReac Type Severity Reaction Status Date / Time ciprofloxacin Allergy Unknown Rash Verified 04/08/23 15:19 ceftriaxone Allergy Rash Verified 04/08/23 15:19 Iodinated Contrast Media Allergy Angioedema Verified 04/08/23 15:19 [contrast dye - iodinated] linezolid Allergy Rash Verified 04/08/23 15:19 Sulfa (Sulfonamide Allergy Unknown Verified 04/08/23 15:19 Antibiotics) vancomycin Allergy Fever and Verified 04/08/23 15:19 skin rash Family History Mother Ulcerative colitis Grandfather No problems noted. 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 pets and animals: Yes (cat) Smoking Status: Never smoker alcohol intake: current details: occasional substance use type: does not use caffeine: No Vital Signs Vital Signs Vital Signs: Weight Weight: 226 lb Body Mass Index (BMI) 29.0 Physical Exam Const alert, oriented x3, no apparent distress and healthy appearing HEENT normocephalic, head/scalp atraumatic, hearing grossly normal bilaterally, external ears normal, external nose normal and moist oral mucous membranes Eyes PERRL, EOMs intact bilaterally, conjunctivae normal and no scleral icterus Neck no lymphadenopathy, supple and no JVD Cardio regular rate, regular rhythm, S1 normal heart sound, S2 normal heart sound, no murmurs, no rub, no gallops, no clicks, no JVD and peripheral pulses 2+ throughout GI normal to inspection, nondistended, normoactive bowel sounds, soft to palpation,non-tender and non-distended Extremity normal to inspection, normal capillary refill, no clubbing, cyanosis or edema and no pedal edema Neuro oriented x3, CN's II-XII intact bilaterally, moves all extremities and no focal motor deficits Psych cooperative and affect normal Cardiology Labs/Tests Cardiology Labs/Tests: Rhythm: EKG: ECHO: Stress Test: Cardiac Cath: PCI: CT Surgery: Holter monitor: EPS: PPM: CXR: Chest CT Scan: Assessment & Plan Assessment/Plan (1) Persistent atrial fibrillation: PLAN: Patient did undergo a cardioversion prior to be admitted to PCU. He did convert to sinus rhythm. Will stop his metoprolol and start him on sotalol. Hewill continue with his Xarelto. Did speak with pharmacy, they will adjust the timing of his medicines so that he is able to get 2 doses of his sotalol in today. This way he will be able to be discharged home on Tuesday. Will obtain daily EKGs. (2) Chronic hypotension: PLAN: Patient is on Florinef. Will continue to monitor. (3) Presence of cardiac pacemaker: PLAN: Patient is having his pacemaker interrogated in the outpatient setting. Charges/Coding Visit Charges Inpatient E&M: 71561 Init Hosp L3 05/13/23 1423 <Electronically signed by Trae Cano MD> Cosigner Signature (if applicable): 05/13/23 1325 <Electronically signed by Kia WALL> CC: Dr. Trae Cano MD; Dr. Dc Glez MD; MAE Hernández~ Signed [facility] Work Phone: 1(238) 627-191903-22-2024 Procedure [facility] 05-13-2023 Procedure [facility]03-20-2024 History and physical note Author Kia Kirkpatrick [facility] May 11, 2023 4:04pm Note Date/Time May 11, 2023 4:0 4pm [facility] Medical Records Department [address] [place] [address] H&P Exam - Cardiology 05/11/23 1555 MR#: [id number] Acct: [id number] Name: HUNG PECK Rep #:[id number] : 1960 62 From: Kia WALL PCP: Dr. Dc Glez MD Status:PRE S DC Location: [facility] HPI - General General Date of Admission: 05/13/23 Chief Complaint: Afib HPI Narrative HUNG PECK, is a 62 M who presents here today for a DCCV and the initiation of sotalol therapy. He has a hx of syncope, PACs/PVCs, atrial fibrillation, wide- complex tachycardia with differential of a ventricular rhythmversus atrial fibrillation with aberrancy, and factor V Leiden deficiency with previous thromboembolic events. Patient was admitted and evaluated at [facility] in October 2021 for symptomatic bradycardia. Echocardiogram on 11/10/2021 showed ejection fraction 60%, mildly enlarged left atrium, mild mitral valve insufficiency, and RVSP of 36 mmHg. Heart catheterization on 11/12/2021 showed single-vessel mild coronary artery disease of the LAD. He underwent pacemaker placement on 11/19/[address] Rios for sick sinus syndrome. He did undergo a DCCV 12/13/22. Pt was hospitalized in February 2023 for near-syncope and atrial fibrillation with RVR. Remote report from 03/04/2023 showed 60% cumulative atrial arrhythmia burden with 2274 high ventricular rate episodes. His metoprolol was reduced on account of orthostatic changes and reduced systolic blood pressure at 70 mmHg. It is noted that he is intolerant to amiodarone. During a phone call after he was discharged home it was discussed antiarrhythmic therapy such as sotalol/Tikosyn therapy versus EP evaluation for ablation. Prior to pursuing ablation, patient wished to try sotalol therapy. 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 amiodarone Paroxysmal atrial fibrillation Premature atrial contraction Presence of cardiac pacemaker Septic shock Severe sepsis Syncope and collapse Syncope and collapse Wide-complex tachycardia Home Medications epinephrine 0.3 mg/0.3 mL injection, auto-injector (EpiPen 2-Franklin) 0.3 mg (0.3 mL) IM Q10M PRN PRN anaphylaxis #2 ea 02/06/22 [Rx Last Taken Unknown] rivaroxaban 20 mg tablet 20 mg PO DAILY blood thinner #90 tabs 06/29/22 [Rx Last Taken 12/12/22] fludrocortisone 0.1 mg tablet 0.1 mg PO DAILY hypotension #90 tabs 07/13/22 [Rx Last Taken Unknown] metoprolol tartrate 25 mg tablet 25 mg PO BID #180 tabs 04/15/23 [Rx Last Taken Unknown] Allergy/AdvReac Type Severity Reaction Status Date / Time ciprofloxacin Allergy Unknown Rash Verified 04/08/23 15:19 ceftriaxone Allergy Rash Verified 04/08/23 15:19 Iodinated Contrast Media Allergy Angioedema Verified 04/08/23 15:19 [contrast dye - iodinated] linezolid Allergy Rash Verified 04/08/23 15:19 Sulfa (Sulfonamide Allergy Unknown Verified 04/08/23 15:19 Antibiotics) vancomycin Allergy Fever and Verified 04/08/23 15:19 skin rash Family History Mother Ulcerative colitis Grandfather No problems noted. 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 pets and animals: Yes (cat) Smoking Status: Never smoker alcohol intake: current details: occasional substance use type: does not use caffeine: No ROS Constitutional Constitutional: Reports fatigue; Denies frequent falls Eyes Eyes: Denies acute decrease in peripheral vision, blurry vision or change in vision ENT HEENT: Denies dizziness, epistaxis, tinnitus or vertigo Cardiovascular Cardiovascular: Denies chest pain at rest, chest pain with activity, claudication, dyspnea at rest, dyspnea on exertion or edema Respiratory/Chest Respiratory/Chest: Denies cough, dyspnea, dyspnea on exertion, tachypnea or wheezing Gastrointestinal Gastrointestinal: Denies abdominal pain, coffee ground emesis, diarrhea, heartburn, hematochezia, melena or nausea Genitourinary Genitourinary: Denies hematuria Musculoskeletal Musculoskeletal: Denies myalgias, numbness or tingling Physical Exam Const alert, oriented x3, no apparent distress and healthy appearing HEENT normocephalic, head/scalp atraumatic, hearing grossly normal bilaterally, external ears normal, external nose normal and moist oral mucous membranes Eyes PERRL, EOMs intact bilaterally, conjunctivae normal and no scleral icterus Neck no lymphadenopathy, supple and no JVD Cardio regular rate, S1 normal heart sound, S2 normal heart sound, no murmurs, no rub, no gallops, no clicks, no JVD and peripheral pulses 2+ throughout Cardio Narrative: Irregularly irregular GI normal to inspection, nondistended, normoactive bowel sounds, soft to palpation,non-tender and non-distended Extremity normal to inspection, normal capillary refill, no clubbing, cyanosis or edema and no pedal edema Neuro oriented x3, CN's II-XII intact bilaterally, moves all extremities and no focal motor deficits Psych cooperative and affect normal Cardiology Labs/Tests Cardiology Labs/Tests: Rhythm: EKG: ECHO: Stress Test: Cardiac Cath: PCI: CT Surgery: Holter monitor: EPS: PPM: CXR: Chest CT Scan: Assessment & Plan Assessment/Plan (1) Atrial fibrillation with rapid ventricular response: PLAN: Patient will undergo a cardioversion. He will then be admitted to PCU forinitiation of sotalol therapy. His Xarelto has not been interrupted. (2) Presence of cardiac pacemaker: 05/11/23 1604 <Electronically signed by Kia WALL> Cosigner Signature (if applicable): CC: Dr. Trae Cano MD; Dr. Dc Glez MD; MAE Hernández~ Signed [facility] Work Phone: 1(263) 318-329401-20-2024 History and physical note Author Ann Marie Colindres [facility] March 12, 2023 6:58am Note Date/Time March 12, 2023 1 :04am [facility] Medical Records Department [address] [place] [address] H&P Exam - Hospitalist 03/12/23 0038 MR#: [id number] Acct: [id number] Name: HUNG PECK Rep #:[id number] : 1960 62 From: Ann Marie Graves DO PCP: Dr. Dc Glez MD Status:ADM I NO Location: [place] [address] HPI - General General Date of Admission: 03/12/23 Date of Service: 03/12/23 Chief Complaint: Near Syncope. HPI Narrative HUNG PECK, is a 62 M with a past medical history of essential hypertension, obesity; with BMI of 30 this admission, adrenal insufficiency; on fludrocortisone 0.1 mg daily, Qwrint-Q-Mmxdbh disorder; with history of DVT/PE, paroxysmal atrial fibrillation; on Apixaban with patient intolerant to Amiodarone and followed by [facility], history of arrhythmia; s/p PPM, 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 Mr. Peck reports his symptoms began approximately 18:45 hours yesterday evening with a near syncopal event. He denies associated chest pain, chest pressure, SOB, diaphoresis, nausea, vomiting, recent illness or recent medication changes. He admits his symptoms are similar to his previous syncopal episodes except that he did not have a complete LOC. In the ER he was diagnosed with Atrial Fibrillation; with RVR @ ~136 bpm with a normal blood pressure of 115/66 mm Hg saturating 94% on RA- but he was noted to be orthostatic with his blood pressure dropping to 72/61 mm Hg with standing up for which he was treated with IV Cardizem and IVF's and he was then admitted to the CDU under observation status for ongoing care for a stay that is expected to be less than 48 hours. 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 amiodarone Paroxysmal atrial fibrillation Premature atrial contraction Presence of cardiac pacemaker Septic shock Severe sepsis Syncope and collapse Syncope and collapse Wide-complex tachycardia Home Medications epinephrine 0.3 mg/0.3 mL injection, auto-injector (EpiPen 2-Franklin) 0.3 mg (0.3 mL) IM Q10M PRN PRN anaphylaxis #2 ea 02/06/22 [Rx Last Taken Unknown] rivaroxaban 20 mg tablet 20 mg PO DAILY blood thinner #90 tabs 06/29/22 [Rx Last Taken 12/12/22] fludrocortisone 0.1 mg tablet 0.1 mg PO DAILY hypotension #90 tabs 07/13/22 [Rx Last Taken Unknown] metoprolol tartrate 50 mg tablet 50 mg PO BID #180 tabs 08/13/22 [Rx Last Taken 12/13/22] Allergy/AdvReac Type Severity Reaction Status Date / Time ciprofloxacin Allergy Unknown Rash Verified 03/11/23 22:03 ceftriaxone Allergy Rash Verified 03/11/23 22:03 Iodinated Contrast Media Allergy Angioedema Verified 03/11/23 22:03 [contrast dye - iodinated] linezolid Allergy Rash Verified 03/11/23 22:03 Sulfa (Sulfonamide Allergy Unknown Verified 03/11/23 22:03 Antibiotics) vancomycin Allergy Fever and Verified 03/11/23 22:03 skin rash Family History Mother Ulcerative colitis Grandfather No problems noted. 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 pets and animals: Yes (cat) Smoking Status: Never smoker alcohol intake: current details: occasional substance use type: does not use caffeine: No ROS ROS Narrative Review of systems: Constitutional: Vital Signs Vital Signs Vital Signs: 03/11/23 22:03 03/11/23 22:10 03/11/23 22:53 Temperature 98.3 F Temperature Source Temporal Pulse Rate 136 H Pulse Rate [Lying] Pulse Rate [Sitting (for 1 minute prior to obtaining)] Pulse Rate [Standing (for 1 minute prior to obtaining)] Respiratory Rate 25 H Respiratory Pattern Normal Blood Pressure 115/66 Blood Pressure [Lying] Blood Pressure [Sitting (for 1 minute prior to obtaining)] Blood Pressure [Standing (for 1 minute prior to obtaining)] Blood Pressure Mean 82 Blood Pressure Mean [Lying] Blood Pressure Mean [Sitting (for 1 minute prior to obtaining)] Blood Pressure Mean [Standing (for 1 minute prior to obtaining)] Pulse Ox 94 Oxygen Delivery Method Room Air Room Air 03/11/23 22:15 03/11/23 23:01 Temperature 98.3 F Temperature Source Oral Pulse Rate Pulse Rate [Lying] 80 Pulse Rate [Sitting (for 1 minute prior to obtaining)] 81 Pulse Rate [Standing (for 1 minute prior to obtaining)] 128 H Respiratory Rate Respiratory Pattern Blood Pressure Blood Pressure [Lying] 93/60 Blood Pressure [Sitting (for 1 minute prior to obtaining)] 89/69 L Blood Pressure [Standing (for 1 minute prior to obtaining)] 72/61 L Blood Pressure Mean Blood Pressure Mean [Lying] 71 Blood Pressure Mean [Sitting (for 1 minute prior to obtaining)] 75 Blood Pressure Mean [Standing (for 1 minute prior to obtaining)] 64 Pulse Ox Oxygen Delivery Method Weight Weight: 233 lb 7.512 oz Body Mass Index (BMI) 29.9 Physical Exam Const alert, oriented x3, no apparent distress, average body habitus and healthy appearing General Appearance: cooperative HEENT normocephalic, head/scalp atraumatic, hearing grossly normal bilaterally, moist oral mucous membranes and oropharynx normal Eyes PERRL and EOMs intact bilaterally Neck no lymphadenopathy and supple Resp normal respiratory effort, no retractions, no use of accessory muscles and clearto auscultation bilaterally Cardio Cardio Narrative: Iregularly irregular. GI normal to inspection, nondistended, normoactive bowel sounds, soft to palpation,non-tender and non-distended Extremity normal to inspection and full ROM Skin Skin Narrative: Patient has no evidence of rash at this time. Neuro oriented x3, CN's II-XII intact bilaterally, moves all extremities and no focal motor deficits Sensorium / Orientation: awake, alert, oriented to person, oriented to place andoriented to time Speech: speech normal Motor Exam: strength 5/5 throughout Psych affect normal Results Medical Records Data Attestation: I reviewed the patient's medical records Lab / Micro Data Attestation: I reviewed the patient's lab results. 03/12/23 06:33 03/11/23 22:37 Labs: Laboratory Results - last 24 hr 03/11/23 22:37: WBC 8.4, RBC 6.17, Hgb 17.9 H, Hct 56.5 H, MCV 91.6, MCH 29.0, MCHC 31.7 L, RDW Std Deviation 43.6, RDW Coeff of Donna 12.8, Plt Count 175, MPV 10.9, Immature Gran % (Auto) 0.200, Neut % (Auto) 77.6 H, Lymph % (Auto) 11.6 L,Haskell % (Auto) 6.5, Eos % (Auto) 3.6, Baso % (Auto) 0.5, Absolute Neuts (auto) 6.5, Absolute Lymphs (auto) 0.97, Nucleated RBC % 0, Sodium 137, Potassium 3.7, Chloride 103, Carbon Dioxide 28.0, Anion Gap 6, BUN 16, Creatinine 1.13, Estim Creat Clear Calc 87.89, Est GFR (MDRD) Af Amer 85, Est GFR (MDRD) Non-Af 70, BUN/Creatinine Ratio 14.2, Glucose 124 H, Calcium 8.9, Troponin I High Sens 10 Micro: Microbiology 03/11/23 23:07 Mucosa - Nose SARS-CoV-2, Influenza & RSV (PCR) - Final Rhythm Strip Rhythm Strip: A-fib Rate: 111 Ectopy: PVC(s) Imagaing Radiology Impression Chest X-Ray 03/11/23 22:39 IMPRESSION: No radiographic evidence of acute cardiopulmonary disease. Electronically Signed: Burke Luis DO at 23:47 EST Reading Location ID and State: [address] [place] [address] Tel [phone], Service support , Assessment & Plan Assessment/Plan (1) Atrial fibrillation with rapid ventricular response: (2) Near syncope: (3) Hx of adrenal insufficiency: (4) Presence of cardiac pacemaker: PLAN: Plan 1. Atrial Fibrillation; with RVR - Admit to CDU under observation status. StopIV Cardizem now in favor of IV Digoxin to get good rate control without increased risk for hypotension. Check echocardiogram to evaluate LVEF. Avoid Amiodarone with a history of intolerance to this agent. Finally, we will consult cardiology to see this patient on-rounds in the AM for further recommendations with help appreciated in advance. 2. Near Syncope secondary to Orthostatic Hypotension in the setting of known adrenal insufficiency complicating #1 - Continue fludrocortisone as previous andconsider increasing dose and possibly adding midodrine of okay with cardiology. Check carotid doppler to evaluate for stenosis. Check 8:00 AM cortisol. 3. Essential hypertension - Continue Metoprolol at 50% of the current dose in light of #1 & #2. 4. Ohmndn-S-Vrgqmp disorder; with history of DVT/PE - Noted. Continue Rivaroxaban as previous. 5. Obesity; with BMI of 30 this admission - Weight loss will be recommended. Check TSH. 6. History of arrhythmia; s/p PPM - Noted. 7. History of infected prosthetic knee joint with sepsis - Noted. 8. History of Wide Complex Tachycardia and history of syncope with collapse - Noted. 9. DVT prophylaxis - Patient on Xarelto for #1 which will be continued. Total time: Approximately 45 minutes. Charges/Coding Visit Charges OBSV E&M: 31033 Observ/hosp same date L1 03/12/23 0658 <Electronically signed by Ann Marie Castellano DO> Cosigner Signature (if applicable): CC: Dr. Ann Marie Castellano DO; Dr. Dc Glez MD~ Signed [facility] Work Phone: 1(885) 580-186401-20-2024 Discharge summary Author Rene Gunter [facility] March 12, 2023 4:31am Note Date/Time March 11, 2023 1 0:23pm [facility] Medical Records Department [address] [place] [address] Emergency Department Summary 03/11/23 MR#: [id number] Acct: [id number] Name: HUNG PECK Rep #:[id number] : 1960 62 From: Rene Gunter MD PCP: Dr. Dc Glez MD Status:ADM I NO Location: [place] [address] HPI History of Present Illness Chief Complaint: Syncope Detail of Chief Complaint: Near syncope. No LOC. Informant: patient and family Onset/Context/Timing Onset: Today Context: Sudden Onset Current Severity: Gone Maximum Severity: Moderate Narrative Narrative: 62-year-old male history of A-fib, DVT, factor V on Xarelto. Pacemaker. Adrenal insufficiency. Had a near syncopal event around 845 tonight. Denies any chest pain. No shortness of breath. No abdominal pain. Denies nausea, vomiting or diarrhea. Denies fever or chills. Denies dysuria or melena. No recent illness. 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 amiodarone Paroxysmal atrial fibrillation Premature atrial contraction Presence of cardiac pacemaker Septic shock Severe sepsis Syncope and collapse Syncope and collapse Wide-complex tachycardia Home Medications epinephrine 0.3 mg/0.3 mL injection, auto-injector (EpiPen 2-Franklin) 0.3 mg (0.3 mL) IM Q10M PRN PRN anaphylaxis #2 ea 02/06/22 [Rx Last Taken Unknown] rivaroxaban 20 mg tablet 20 mg PO DAILY blood thinner #90 tabs 06/29/22 [Rx Last Taken 12/12/22] fludrocortisone 0.1 mg tablet 0.1 mg PO DAILY hypotension #90 tabs 07/13/22 [Rx Last Taken Unknown] metoprolol tartrate 50 mg tablet 50 mg PO BID #180 tabs 08/13/22 [Rx Last Taken 12/13/22] Allergy/AdvReac Type Severity Reaction Status Date / Time ciprofloxacin Allergy Unknown Rash Verified 03/11/23 22:03 ceftriaxone Allergy Rash Verified 03/11/23 22:03 Iodinated Contrast Media Allergy Angioedema Verified 03/11/23 22:03 [contrast dye - iodinated] linezolid Allergy Rash Verified 03/11/23 22:03 Sulfa (Sulfonamide Allergy Unknown Verified 03/11/23 22:03 Antibiotics) vancomycin Allergy Fever and Verified 03/11/23 22:03 skin rash Family History Mother Ulcerative colitis Grandfather No problems noted. 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 Review of Systems ROS Unobtainable: Denies due to encephalopathy Constitutional Constitutional ED: Denies chills or fever(s) Eyes Eyes: Denies blurry vision ENT ENT ED: Denies ear pain Cardiovascular Cardiovascular: Denies chest pain or palpitations Respiratory/Chest Respiratory/Chest: Denies cough or dyspnea Gastrointestinal Gastrointestinal: Denies abdominal pain Genitourinary Genitourinary ED: Denies dysuria or hematuria Musculoskeletal Musculoskeletal: Denies arthralgias or back pain Integumentary Denies abscess or Abrasions Neurologic Neurologic: Reports headache(s) Psychiatric Psychiatric: Denies anxiety Endocrine Endocrinology: Denies cold intolerance or heat intolerance Hematologic/Lymphatic Hematologic/Lymphatic: Reports none Allergic/Immunologic Allergic/Immunologic ED: Denies mouth swelling, tongue swelling or urticaria EXAM Physical Exam Narrative Exam Narrative: 62-year-old male vital signs are stable except he is in A-fib RVR when I am in the room his heart rate is 111. On triage it was 136. Initial blood pressure 115/66. Pulse ox 94% on room air. H EENT exam unremarkable. Pupils round reactive light. No facial droop. No trauma. Nontender. Lungs clear to auscultation bilaterally. Heart A-fib rapid rate about 111 no murmur. Chest wall nontender. Abdomen soft nontender. Moving all 4 extremities. Nontender no edema. Neurologically is awake and alert with no focal motor deficits. Const Vital Signs: 03/11/23 22:03 03/11/23 22:10 03/11/23 22:53 Temperature 98.3 F Temperature Source Temporal Pulse Rate 136 H Pulse Rate [Lying] Pulse Rate [Sitting (for 1 minute prior to obtaining)] Pulse Rate [Standing (for 1 minute prior to obtaining)] Respiratory Rate 25 H Respiratory Pattern Normal Blood Pressure 115/66 Blood Pressure [Lying] Blood Pressure [Sitting (for 1 minute prior to obtaining)] Blood Pressure [Standing (for 1 minute prior to obtaining)] Blood Pressure Mean 82 Blood Pressure Mean [Lying] Blood Pressure Mean [Sitting (for 1 minute prior to obtaining)] Blood Pressure Mean [Standing (for 1 minute prior to obtaining)] Pulse Ox 94 Oxygen Delivery Method Room Air Room Air 03/11/23 22:15 03/11/23 23:01 Temperature 98.3 F Temperature Source Oral Pulse Rate Pulse Rate [Lying] 80 Pulse Rate [Sitting (for 1 minute prior to obtaining)] 81 Pulse Rate [Standing (for 1 minute prior to obtaining)] 128 H Respiratory Rate Respiratory Pattern Blood Pressure Blood Pressure [Lying] 93/60 Blood Pressure [Sitting (for 1 minute prior to obtaining)] 89/69 L Blood Pressure [Standing (for 1 minute prior to obtaining)] 72/61 L Blood Pressure Mean Blood Pressure Mean [Lying] 71 Blood Pressure Mean [Sitting (for 1 minute prior to obtaining)] 75 Blood Pressure Mean [Standing (for 1 minute prior to obtaining)] 64 Pulse Ox Oxygen Delivery Method Positive well nourished and well developed; Negative for obese, cachectic, contractures or unkempt General Appearance ED: well developed and NAD; Negative for unkempt, cachectic, contractures or diaphoretic Nutritional Appearance: Negative for cachectic or obese HEENT Reports moist mucous membranes; Denies dry mucous membranes Negative for trauma or tenderness Mouth ED: No dry mucous membranes Mouth: No dry mucous membranes Eyes PERRL and EOMs intact bilaterally General Eye ED: Negative for pale conjunctiva, scleral icterus or other Neck no lymphadenopathy, supple and No no JVD General: Negative for tenderness Lymph Lymphatic: Negative for other Chest Wall inspection of chest normal and palpation of chest normal Chest: Negative for other Resp normal respiratory effort and clear to auscultation bilaterally Effort and Inspection: Negative for retractions Auscultation: Negative for rales, rhonchi or wheezes Cardio Negative for regular rate or regular rhythm Rate: tachycardic Rhythm: abnormal rhythm GI normal to inspection, nondistended, normoactive bowel sounds, non-tender and no masses Auscultation: normoactive bowel sounds Palpation: soft; Negative for tender or guarding Back/Spine no CVA tenderness General Back: Negative for CVA tenderness Cervical Spine: Negative for cervical spine tenderness Lumbar Spine / Lower Back: Negative for lumbar spinal tenderness Extremity normal to inspection General Extremety ED: Negative for edema or tenderness General Extremity: Negative for edema Neuro oriented x3 and CN's II-XII intact bilaterally Sensorium / Orientation: alert; Negative for orientation impaired, lethargic or stuporous Motor Exam: strength 5/5 throughout; Negative for general weakness or strength abnormal Psych mental status grossly normal Appearance: Negative for unkempt Mood & Affect: Negative for depressed, anxious or tearful Skin No no rashes or lesions noted, no wounds and skin turgor normal General Skin Exam: Negative for jaundice Lesions: No lesion noted Rashes: rashes noted Trauma: Negative for abrasion Wounds: Negative for wounds noted MDM MDM MDM Narrative Medical decision making narrative: 62-year-old male extensive past medical history of the near syncopal episode today. Occurred about 845. He is on blood thinner Xarelto he has a history of A-fib and currently is in A-fib RVR. Cardiac and infectious workup will be pursued. Currently he is afebrile. Repeat exam at 12 1:20 AM he remains in A-fib but is getting controlled rate. After the IV Cardizem. Currently he is in A-fib still and his rates around 100-110. We placed on a Cardizem drip. Given IV fluid bolus. I will speak to the hospitalist about admission. History & Record Review Discussion w/independent historian: Patient and Family Additional record(s) reviewed:: Prior inpatient record, Prior outpatient record,Prior ED visit and Prior labs Lab Data Attestation: I reviewed the patient's lab results. Lab results narrative: CBC shows a white count 8. H&H is 17 and 56. Platelets 175. Electrolytes show a gap of 6. Normal BUN of 16 and creatinine 1.1. Glucose 124. Troponin 10. COVID, flu and RSV are all negative. Labs: Laboratory Results - last 24 hr 03/11/23 22:37 WBC 8.4 RBC 6.17 Hgb 17.9 H Hct 56.5 H MCV 91.6 MCH 29.0 MCHC 31.7 L RDW Std Deviation 43.6 RDW Coeff of Donna 12.8 Plt Count 175 MPV 10.9 Immature Gran % (Auto) 0.200 Neut % (Auto) 77.6 H Lymph % (Auto) 11.6 L Haskell % (Auto) 6.5 Eos % (Auto) 3.6 Baso % (Auto) 0.5 Absolute Neuts (auto) 6.5 Absolute Lymphs (auto) 0.97 Nucleated RBC % 0 Sodium 137 Potassium 3.7 Chloride 103 Carbon Dioxide 28.0 Anion Gap 6 BUN 16 Creatinine 1.13 Estim Creat Clear Calc 87.89 Est GFR (MDRD) Af Amer 85 Est GFR (MDRD) Non-Af 70 BUN/Creatinine Ratio 14.2 Glucose 124 H Calcium 8.9 Troponin I High Sens 10 Radiography Chest X-Ray - ED: 1 View, Read by ED Physician, Heart, Lungs, Mediastinum, Bony Structures, No Acute Disease and Chronic Changes Diagnostic Testing: Clinical Impression(s) from Imaging Studies Chest X-Ray 03/11/23 22:39 IMPRESSION: No radiographic evidence of acute cardiopulmonary disease. Electronically Signed: Burke Luis DO at 23:47 EST Reading Location ID and State: [facility] / [place] Tel [phone], Service support , Chest x-ray, portable, single view shows no acute abnormality. Normal cardiac silhouette. Left-sided pacemaker. No infiltrates. No effusions. Interpreted by myself. Rhythm Strip Rhythm Strip: A-fib Rate: 111 Ectopy: PVC(s) EKG Initial EKG: Attestation: I personally reviewed and interpreted this EKG as follows: Interpretation: No Acute Injury Pattern and Atrial Fibrillation Comments: A-fib RVR rate 111. No acute signs of IN or ischemia. PVCs. Follow-up EKG: Attestation: I personally reviewed and interpreted this EKG as follows: Interpretation: No Acute Injury Pattern and Atrial Fibrillation Comments: Repeat EKG after he received Cardizem. It was questionable if he was back in sinus rhythm but he is not. He remains in A-fib but his rate is 95. He has occasional PVCs. Prior EKG tracings: available for review Prior: Unchanged Discharge Plan Triage Chief Complaint: Syncope Other Complaint: Rash ED Provider: Rene Gunter Dx/Rx/DC Orders Clinical Impression: Hx of adrenal insufficiency, Chronic hypotension, Chronic anticoagulation, Nearsyncope, Atrial fibrillation with rapid ventricular response Prescriptions: No Action epinephrine [EpiPen 2-Franklin] 0.3 mg/0.3 mL auto-injector 0.3 mg IM Q10M PRN PRN (Reason: anaphylaxis) Qty: 2 0RF Rx Instructions: for 2 doses rivaroxaban 20 mg tablet 20 mg PO DAILY Qty: 90 3RF Hold Instructions: Resume on 11/27/21. If pacemaker / wound check stable. Rx Instructions: Hold after dose on 11/17/2021 for pacemaker placement fludrocortisone 0.1 mg tablet 0.1 mg PO DAILY Qty: 90 3RF metoprolol tartrate 50 mg tablet 50 mg PO BID Qty: 180 3RF Primary Care Provider: Dc Glez Referrals: Dc Glez MD [Primary Care Provider] - Disposition Disposition: Acute Care Hospital [facility] What to do if you have Problems For any increased pain, shortness of breath, bleeding, nausea or vomiting, chestpain, or any unexpected problems, contact your Primary Care Provider. Call [facility] ([phone]) or report to the closest Emergency Room. Call 911 if necessary. 03/12/23 0431 <Electronically signed by Rene Gunter MD> Cosigner Signature (if applicable): CC: Dr. Dc Glez MD ~ Signed [facility] Work Phone: 1(416) 553-800010-23-2023 Procedure [facility] 11-23-2022 History and physical note Author Trae Cano [facility] November 23, 2022 3:56pm Note Date/Time November 23, 2022 9: 04am [facility] Medical Records Department [address] [place] [address] History & Physical Exam 11/23/22 0900 MR#: [id number] Acct: [id number] Name: HUNG PECK Rep #:[id number] : 1960 62 From: Trae Cano MD PCP: Dr. 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 He has a history of syncope, PACs/PVCs, atrial fibrillation, wide-complex tachycardia with differential of a ventricular rhythmversus atrial fibrillation with aberrancy, and factor V Leiden deficiency with previous thromboembolic events. Patient was admitted and evaluated at [facility] in October 2021 for symptomatic bradycardia. Echocardiogram on 11/10/2021 showed ejection fraction 60%, mildly enlarged left atrium, mild mitral valve insufficiency, and RVSP of 36 mmHg. Heart catheterization on 11/12/2021 showed single-vessel mild coronary artery disease of the LAD. He underwent pacemaker placement on 11/19/[address] Rios for sick sinus syndrome. He denies chest, arm, jaw, or neck discomfort. He acknowledges palpitations that he describes as fast and fluttery. He denies bilateral lower extremity edema. He denies claudication. He states shortness of breath with activity such as going up the steps or exertion such as moving furniture. He denies shortness of breath at rest, orthopnea, or PND. He denies chronic cough. He denies significant, sudden weight gain. He states two episodes of dizziness. He denies lightheadedness, near- syncope, or syncope. He denies blood in urine, blood in stool, or epistaxis. He denies fever or chills. He denies myalgia. He states fatigue with activity. His exercise level has remained stable. 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 pets and animals: Yes (cat) Smoking Status: Never smoker alcohol intake: current details: occasional substance use type: does not use caffeine: No ROS Const Const: Negative for fatigue, weakness, headache(s), daytime sleepiness or difficulty sleeping Eyes Eyes: Negative for change in vision ENT ENT: Negative for headache(s), dizziness or Nosebleed/epistaxis Cardio Chest Pain: No Palpitations: Yes feels like its: fast and other (fluttery) Edema: None Muscle aches with walking: None Resp Respiratory: Positive for SOB with activity; Negative for SOB at rest, SOB orthopnea\SOB lying down or Cough GI GI: Negative nausea, vomiting or heartburn : Negative for hematuria or frequent nighttime urination/ nocturia Musc Musc: Negative for muscle aches/ myalgia Skin Skin: Negative non-healing lesions or rash Neuro Neuro: Negative for dizziness, lightheadedness, near syncope, headache(s) or weakness Endo Endo: Negative for fatigue Allergy Allergy/Immunology: Negative for rash Cardiology Exam Const Appearance: cooperative, healthy appearing, comfortable and no acute distress Nutritional Appearance: well nourished and overweight Orientation: alert, awake and oriented x3 Head Head: normal to inspection Ears: hearing grossly normal bilaterally Nose: external nose normal Face and Sinus: face symmetric Mouth: moist mucous membranes Eyes General: appearance normal, both eyes and all related structures Eyelids: eyelids normal EOM: EOM intact bilaterally Neck Neck: normal visual inspection and no JVD Carotids: normal carotid upstroke Chest Chest inspection: normal inspection of the chest, symmetric chest movement and normal respiratory effort; Negative cough Auscultation: Bilateral: Clear to Auscultation Cardio Rate: regular rate Rhythm: regular rhythm Heart sounds: S1 normal and S2 normal; Negative rub, gallop or murmur GI GI: normal to inspection Neuro General: patient alert, patient awake, patient oriented x3 and CN's II-XI intactbilaterally Skin Skin: no rashes or lesions noted Extremities Pulses: Normal: Right Posterior Tibial Pulse, Left Posterior Tibial Pulse, RightRadial Pulse and Left Radial Pulse Lower Extremity Edema: None: Bilateral Psych Psychological: normal affect Supplemental Info Supplemental Information Echocardiogram from 11/10/2021: Interpretation Summary Left ventricular systolic function is normal. The estimated ejection fraction is 60 %. The left atrium is mildly enlarged. Mild (1+) mitral valve insufficiency. Mild tricuspid valve insufficiency. Trivial pulmonic valve insufficiency. Right ventricular systolic pressure estimated to be 36 mmHg. Diastolic function is indeterminate. Echocardiogram from 07/10/2020: Interpretation Summary The study was technically difficult. Left ventricular systolic function is normal. The estimated ejection fraction is 65 %. The left atrium is mildly enlarged. The right atrium is mildly enlarged. Trivial mitral valve insufficiency. Mild tricuspid valve insufficiency. Right ventricular systolic pressure estimated to be 30 mmHg. Unable to assess diastolic dysfunction. Echocardiogram from 12/12/2017: Interpretation Summary Left ventricular systolic function is normal. The estimated ejection fraction is 70 %. The left atrium is mildly enlarged. Trivial mitral valve insufficiency. Trivial tricuspid valve insufficiency. Trivial pulmonic valve insufficiency. Right ventricular systolic pressure estimated to be 30 mmHg. No evidence for diastolic dysfunction. Bubble contrast study negative for right to left interatrial shunt. Heart catheterization from 11/12/2021: CONCLUSIONS Elevated Left Ventricular End Diastolic Pressure Single vessel CAD of the LAD: mild luminal irregularities RECOMMENDATIONS Risk factor modification Medical therapy CORONARY ANGIOGRAPHY DOMINANCE: Co- Dominant LEFT HEART ASSESSMENT Left Ventricular Ejection Fraction: Not assessed Elevated Left Ventricular End Diastolic Pressure LVEDP: 21 mmHg LEFT MAIN: Angiographically normal LEFT ANTERIOR DESCENDING ARTERY: MID LAD: Mild luminal irregularities (s/p SP) CIRCUMFLEX ARTERY: Angiographically normal RIGHT CORONARY ARTERY: Angiographically normal COMPLICATIONS No Complications Stress Test Report Date: 11-13-2021 Procedure: Exercise tolerance test Indications: Cardiac dysrhythmia; syncope Consent: Per the patient Procedure: The patient exercised on a Modified Avinash protocol for 6 minutes completing Stage II achieving a peak heart rate of 122 bpm (76% predicted maximal heart rate) with a peak blood pressure 164/80 mmHg and a peak MET capacity of approximately 3 MET's. The baseline ECG demonstrated sinus bradycardia; nonspecific ST/T wave abnormality. The peak exercise ECG demonstrated somatic/motion artifact with continued nonspecific ST/T wave abnormality at the heart rate achieved. There was a rare PVC during exercise/recovery. The functional capacity was considered decreased. The patient had no complaint of chest discomfort during exercise or recovery. The examination was discontinued secondary to dyspnea and fatigue. Impression: 1. Technically inadequate (percent predicted maximal heart rate less than 85%) exercise tolerance test 2. Peak exercise ECG with continued somatic/motion artifact with continued nonspecific ST/T wave abnormality at the heart rate achieved 3. There was a rare PVC during exercise and recovery 24-hour Holter monitor from August 2021: Minimum heart rate 30 bpm at 11:03 AM. Average heart rate 43 beats minute. Maximal heart rate 66 bpm at 7:18 AM. Ventricular ectopy 0.0%. Supraventricular ectopy 0.1%. Atrial fibrillation 0.0%. Longest R to R interval 2.1 seconds. The patient kept a 24-hour diary and noted 1 episode of chest pain/palpitations which did not correlate with the scan. Assessment and Plan Assessment and Plan (1) Paroxysmal atrial fibrillation: Status: Chronic Plan: Patient has a history of atrial fibrillation/flutter. His echocardiogram in October 2021 showed an ejection fraction of 60% and mildly enlarged left atrium. Twelve- lead ECG on 10/15/2022 shows electronic paced rhythm with underlying atrial fibrillation. On 08/13/2022 he was noted be in atrial flutter and appears to have remained in it since. Would like to proceed with cardioversion. 11/23/22 1556 <Electronically signed by Trae Cano MD> Cosigner Signature (if applicable): 11/23/22 0904 <Electronically signed by Julisa CHIN> CC: ELSY Howard; Dr. Trae Cano MD; Dr. Dc Glez MD~ Signed [facility] Work Phone: 1(957) 916-608904-27-2023 Discharge summary Author Dhruv Moscoso [facility] June 17, 2022 11:13am Note Date/Time June 17, 2022 11: 13am [facility] [address] [place] [address] [address] [place] [address] / REHABILITATION SERVICES DISCHARGE SUMMARY MR#: [id number] Acct: [id number] Name: HUNG PECK Rep #: [id number] : 1960 61 From: Dhruv Moscoso DPT, OCS, CSCS Referring Dr.: Dr. Dc Glez MD Status: REG RCR Insurance: [facility] [employer] PAY INSURANCE It has been my pleasure to treat HUNG PECK referred by Dr. Dc Glez MD, with the diagnosis of imbalance and dizzyness for a total of 4 visit(s). Discharge Date: 06/17/22 Please see the following information for a summary of their discharge status. Subjective: Legs feel a little stronger. Not sure much difference is made yet. has home exercises to get him stronger. Dizzyness(lightheadedness) one time while sitting in chair without moving this week. No passing out. Working with doctors on this. 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 % Improvement: 15 Objective/Function: FGA +1. VOr today without symptoms. Goal 1:: I appropriate HEp for LE and postural strength to limit future problems Goal Progress: Goal Met Goal 2:: Pt feel 50% better overall mobility Goal Progress: 15% Plan: d/c Discharge Comments: Will continue HEP. If there are questions or concerns regarding this patient's physical therapy, please feel free to call me at [phone]. Thank you for the referral of thispatient. Sincerely, Dhruv Moscoso, DPT, OCS, CSCS Balance/Gait/Functional tests - Balance/Special Test Scores Functional Gait Assessment Score: 29 % Disability: 3.3400 CATSIB Score (Max score 120 seconds): 120 Lower Extremity Functional Score: 46 <Electronically signed by Dhruv Moscoso DPT, OCS, CSCS> 06/17/22 1116 CC: Dr. Dc Glez MD ~ EBG Signed [facility] Work Phone: 1(282) 228-737809-01-2022 Evaluation note* Diagnosis Onset Date Resolution Status Atrial fibrillation with rap id ventricular response acute Atrial flutter acute Chronic anticoagulation acut e History of left heart catheterization (LHC) October, acute Hx of adrenal insufficiency acute Near syncope acute Chronic hypotension chronic Paroxysmal atrial fibrillation chronic Presence of cardiac pacemaker chronic Sick sinus syndrome resolved [facility] Work Phone: 1(214) 855-165509-01-2022 Evaluation note* Diagnosis Onset Date Resolution Status Atrial fibrillation with rap id ventricular response acute Atrial flutter acute Chronic anticoagulation acut e History of left heart catheterization (LHC) October, acute Hx of adrenal insufficiency acute Near syncope acute Chronic hypotension chronic Paroxysmal atrial fibrillation chronic Presence of cardiac pacemaker chronic Sick sinus syndrome resolved Asymptomatic premature ventricular contractions chronic Factor V Leiden chronic Paroxysmal atrial fibrillation chronic Presence of cardiac pacemaker chronic Wide-complex tachycardia chr onic Atrial fibrillation with rap id ventricular response acute Chronic anticoagulation acut e Persistent atrial fibrillation acute Chronic hypotension chronic Factor V Leiden chronic Presence of cardiac pacemaker chronic Sick sinus syndrome resolved [facility] Work Phone: Discharge summary Author Chaparro Gaines [facility] March 12, 2023 3:03pm Note Date/Time March 12, 2023 2 :52pm [facility] Medical Records Department [address] [place] [address] Instructions for Home/Discharge Instructions 03/12/23 1451 MR#: [id number] Acct: [id number] Name: HUNG PECK Rep #:[id number] : 1960 62 From: Chaparro ledezma MD PCP: Dr. Dc Glez MD Status:ADM I NO Discharge Instructions Diet Discharge Diet: Low fat / Low cholesterol Activity Discharge Activity: Return to Normal Activity Dressing / Incision Call your doctor if you observe: Fever of 101 or Higher, Shortness of breath, Dizziness, Fainting spells, Swelling in the ankles, Chest pain and Increased palpitations (irregular heartbeat) Follow Up Care Test Results: Test results from this visit will be discussed in further detail at your follow- up appointment, if applicable. Discharge Plan Admission Admit Date/Time: 03/12/23 01:04 Attending Provider: Chaparro Gaines Primary Care Provider: Dc Glez Consulting Providers: Julisa Banda; Daija Cortes; Ko Sanchez; Olivier Bullock; Claude Carcamo; Trae Cano; Talat Rios; Dhruv Rosas; Reece Preston; Shlomo Neely; Memo Gallo; Jeni Harkins; Kike Ritchie; Dc Mazariegos; Varinder Luciano; Butch Gamble; Trevor Prieto; Robbie Sullivan NP; Julisa Howard NP;Kia Kirkpatrick; Ann Marie Castellano Instructions Additional Instructions / Restrictions: Please remain hydrated and we lowered her metoprolol from 50 mg p.o. twice dailyto 25 mg p.o. twice daily. If you notice any palpitations please return to the hospital. Discharge Orders/Prescriptions Prescriptions: New metoprolol tartrate 25 mg Tablet 25 mg PO BID 30 Days Qty: 60 0RF Continued epinephrine [EpiPen 2-Franklin] 0.3 mg/0.3 mL auto-injector 0.3 mg IM Q10M PRN PRN (Reason: anaphylaxis) Qty: 2 0RF Rx Instructions: for 2 doses rivaroxaban 20 mg tablet 20 mg PO DAILY Qty: 90 3RF Hold Instructions: Resume on 11/27/21. If pacemaker / wound check stable. Rx Instructions: Hold after dose on 11/17/2021 for pacemaker placement fludrocortisone 0.1 mg tablet 0.1 mg PO DAILY Qty: 90 3RF Discontinued metoprolol tartrate 50 mg tablet 50 mg PO BID Qty: 180 3RF Referrals / Follow Up: Dc Glez MD [Primary Care Provider] - Within 1 Week Robbie Sullivan NP, NICOLE-C [Med Staff - [facility]] - Within 1 Month Disposition Disposition (needs filled in before D/C Order can be placed): Home, Self Care 03/12/23 1503<Electronically signed by Chaparro Gaines MD>Chaparro Gaines MD CC: ELSY Sullivan; ELSY Howard; Claude Carcamo MD; Dr. Daija Cortes MD; Dr. Ko Sanchez MD; Dr. Olivier Bullock MD; Dr. Trae Cano MD; Dr. Ann Marie Castellano DO; Dr. Talat Rios MD; Dr. Dhruv Rosas MD; Dr. Reece Preston MD; Dr. Shlomo eNely MD; Dr. Jeni Harkins MD; Dr. Memo Gallo MD; Dr. Cindy MD; Dr. Dc Mazariegos MD; Dr. Dc Glez MD; Dr. Butch Gamble MD; Dr. Varinder Luciano MD; Dr. Trevor Prieto MD; Julisa Banda; MAE Castillo ~ Signed [facility] Work Phone: Discharge summary Author Chaparro Gaines [facility] March 12, 2023 3:12pm Note Date/Time March 12, 2023 3 :12pm [facility] Medical Records Department [address] [place] [address] Discharge Summary 03/12/23 1506 MR#: [id number] Acct: [id number] Name: HUNG PECK Rep #:[id number] : 1960 62 From: Chaparro ledezma MD PCP: Dr. Dc Glez MD Status:ADM I NO Location: [place] [address] Providers Date of Admission: 03/12/23 Primary Care Physician: Dr. Dc Glez MD Consultations 03/12/23 02:08 Consult: Cardiology Routine Consulting Provider: [facility] Reason for Consult: Near Syncope, AFIB with RVR and Orthostatic + EMERGENT Consult: No MD Notified: Yes Date Notified: 03/12/23 Time Notified: 06:35 Method of Notification: Text Method of Consult:: In-Person Reason For Visit: NEAR SYNCOPE, AFIB WITH RVR AND ORTHOSTATIC Diagnosis Discharge Diagnosis (1) Hx of adrenal insufficiency: Status: Acute Code(s): Z86.39 - Personal history of other endocrine, nutritional and metabolic disease (2) Atrial flutter: Status: Acute Code(s): I48.92 - Unspecified atrial flutter (3) Paroxysmal atrial fibrillation: Status: Chronic Code(s): I48.0 - Paroxysmal atrial fibrillation (4) Presence of cardiac pacemaker: Status: Chronic Code(s): Z95.0 - Presence of cardiac pacemaker (5) Sick sinus syndrome: Status: Resolved Code(s): I49.5 - Sick sinus syndrome (6) History of left heart catheterization (LHC): Status: Acute Code(s): Z98.890 - Other specified postprocedural states (7) Near syncope: Status: Acute Code(s): R55 - Syncope and collapse (8) Atrial fibrillation with rapid ventricular response: Status: Acute Code(s): I48.91 - Unspecified atrial fibrillation Medications at Discharge Home Medications epinephrine 0.3 mg/0.3 mL injection, auto-injector (EpiPen 2-Franklin) 0.3 mg (0.3 mL) IM Q10M PRN PRN anaphylaxis #2 ea 02/06/22 rivaroxaban 20 mg tablet 20 mg PO DAILY blood thinner #90 tabs 06/29/22 fludrocortisone 0.1 mg tablet 0.1 mg PO DAILY hypotension #90 tabs 07/13/22 metoprolol tartrate 25 mg tablet 25 mg PO BID 30 days #60 tabs 03/12/23 Hospital Course Operations None Procedures None Summary of Care Provided Minutes Spent on Discharge: 36 Hospital Course: Per HPI: HUNG PECK, is a 62 M with a past medical history of essential hypertension, obesity; with BMI of 30 this admission, adrenal insufficiency; on fludrocortisone 0.1 mg daily, Qygjww-P-Svtsaw disorder; with history of DVT/PE, paroxysmal atrial fibrillation; on Apixaban with patient intolerant to Amiodarone and followed by [facility], history of arrhythmia; s/p PPM, 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 Mr. Peck reports his symptoms began approximately 18:45 hours yesterday evening with a near syncopal event. He denies associated chest pain, chest pressure, SOB, diaphoresis, nausea, vomiting, recent illness or recent medication changes. He admits his symptoms are similar to his previous syncopal episodes except that he did not have a complete LOC. In the ER he was diagnosed with Atrial Fibrillation; with RVR @ ~136 bpm with a normal blood pressure of 115/66 mm Hg saturating 94% on RA- but he was noted to be orthostatic with his blood pressure dropping to 72/61 mm Hg with standing up for which he was treated with IV Cardizem and IVF's and he was then admitted to the CDU under observation status for ongoing care for a stay that is expected to be less than 48 hours. Hospital Course: 1. A-fib with RVR/near syncope with orthostatic hypotension in the setting of adrenal insufficiency/pacemaker for sick sinus syndrome?60-year-old male who hasextensive cardiac history presented to the hospital with near syncope and palpitations. His RVR resolved with a dose of Cardizem and his metoprolol was decreased from 50 mg p.o. twice daily to 25 mg p.o. twice daily by the admittingphysician. He has not had palpitations for the rest of the day, he was given initial dose of digoxin x 1 as well. He has an intolerance to amiodarone. Cardiology was consulted and felt that he was stable for discharge today that hewould likely need to follow-up as an outpatient with electrophysiology for possible ablation for his A-fib. He does have a pacemaker in place for sick sinus syndrome and he did have a cardioversion for his A-fib back in November. Will continue him on his Xarelto. He did have orthostatic vital signs obtained again after IV fluids were given today and his orthostatic vital signs were normal so will not change his fludrocortisone dosage either. I discussed with him the plan for discharge she expressed understanding of the risk benefits of going home and would like to go home today. 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 2. Hypertension, factor V Leiden are chronic medical conditions which complicate his care. His home medications were continued where appropriate Physical Exam Narrative General: Alert, Oriented x3, Cooperative, No apparent distress HEENT: Atraumatic, PERRLA, EOMI, Normocephalic Oral: Moist Mucosa Neck: Supple, No JVD Lungs: Diminished, Normal air movement, No rhonchi, No wheeze, No rales Cardiovascular: Regular rate, Regular Rhythm, Normal S1, Normal S2, No murmurs Abdomen: Soft, Non Tender, Non-Distended, No Hepato-splenomegaly Extremities: No edema, Capillary Refill Less than 3 Seconds Skin: No rashes, No breakdown Musculoskeletal: No Tenderness to Palpation of Joints or Extremities Neurological: Cranial nerves II-XII grossly intact, Motor Exam 5/5 strength throughout, Sensory exam intact to light touch and pain Psych/Mental Status: Normal Affect, Appropriate Weight / BMI Weight Weight: 232 lb 9.403 oz Body Mass Index (BMI) 29.8 ABG / Lab / Microbiology Data 03/12/23 06:33 03/12/23 06:33 Laboratory: Laboratory Results - last 24 hr 03/11/23 22:37: WBC 8.4, RBC 6.17, Hgb 17.9 H, Hct 56.5 H, MCV 91.6, MCH 29.0, MCHC 31.7 L, RDW Std Deviation 43.6, RDW Coeff of Donna 12.8, Plt Count 175, MPV 10.9, Immature Gran % (Auto) 0.200, Neut % (Auto) 77.6 H, Lymph % (Auto) 11.6 L,Haskell % (Auto) 6.5, Eos % (Auto) 3.6, Baso % (Auto) 0.5, Absolute Neuts (auto) 6.5, Absolute Lymphs (auto) 0.97, Nucleated RBC % 0, Sodium 137, Potassium 3.7, Chloride 103, Carbon Dioxide 28.0, Anion Gap 6, BUN 16, Creatinine 1.13, Estim Creat Clear Calc 87.89, Est GFR (MDRD) Af Amer 85, Est GFR (MDRD) Non-Af 70, BUN/Creatinine Ratio 14.2, Glucose 124 H, Calcium 8.9, Troponin I High Sens 10 03/12/23 06:33: WBC 6.6, RBC 5.62, Hgb 16.5, Hct 51.1, MCV 90.9, MCH 29.4, MCHC 32.3, RDW Std Deviation 43.6, RDW Coeff of Donna 13.0, Plt Count 156, MPV 10.4, Immature Gran % (Auto) 0.500, Neut % (Auto) 73.7 H, Lymph % (Auto) 12.5 L, Haskell % (Auto) 6.0, Eos % (Auto) 7.0 H, Baso % (Auto) 0.3, Absolute Neuts (auto) 4.8, Absolute Lymphs (auto) 0.82 L, Nucleated RBC % 0, Sodium 137, Potassium 4.7, Chloride 109 H, Carbon Dioxide 23.0, Anion Gap 5, BUN 15, Creatinine 1.07, EstimCreat Clear Calc 92.66, Est GFR (MDRD) Af Amer 90, Est GFR (MDRD) Non-Af 74, BUN/Creatinine Ratio 14.0, Glucose 108 H, Calcium 8.7, Phosphorus 3.2, Magnesium2.3, Total Bilirubin 1.40 H, AST 15, ALT 16, Alkaline Phosphatase 95, Total Protein 6.5, Albumin 2.9 L, Globulin 3.6, Albumin/Globulin Ratio 0.8 L, TSH 0.91, Cortisol 21.90 Microbiology: Microbiology 03/11/23 23:07 Mucosa - Nose SARS-CoV-2, Influenza & RSV (PCR) - Final Radiography Diagnostic Testing: Radiology Impression Chest X-Ray 03/11/23 22:39 IMPRESSION: No radiographic evidence of acute cardiopulmonary disease. Electronically Signed: Burke Luis DO at 23:47 EST Reading Location ID and State: [facility] / ID Tel [phone], Service support , D/C Instructions Discharge Diet: Low fat / Low cholesterol Call your doctor if you observe: Fever of 101 or Higher, Shortness of breath, Dizziness, Fainting spells, Swelling in the ankles, Chest pain and Increased palpitations (irregular heartbeat) Meaningful Use Info Meaningful Use Diagnoses (Choose all that apply): None applicable Discharge Plan Admission Admit Date/Time: 03/12/23 01:04 Attending Provider: Chaparro Gaines Primary Care Provider: Dc Glez Consulting Providers: Julisa Banda; Daija Cortes; Ko Sanchez; Olivier Bullock; Claude Carcamo; Trae Cano; Talat Rios; Dhruv Rosas; Reece Preston; Shlomo Neely; Memo Gallo; Jeni Harkins; Kike Ritchie; Dc Mazariegos; Varinder Luciano; Butch Gamble; Trevor Prieto; Robbie Sullivan NP; Julisa Howard NP;Kia Kirkpatrick; Ann Marie Castellano Instructions Additional Instructions / Restrictions: Please remain hydrated and we lowered her metoprolol from 50 mg p.o. twice dailyto 25 mg p.o. twice daily. If you notice any palpitations please return to the hospital. Discharge Orders/Prescriptions Prescriptions: New metoprolol tartrate 25 mg Tablet 25 mg PO BID 30 Days Qty: 60 0RF Continued epinephrine [EpiPen 2-Franklin] 0.3 mg/0.3 mL auto-injector 0.3 mg IM Q10M PRN PRN (Reason: anaphylaxis) Qty: 2 0RF Rx Instructions: for 2 doses rivaroxaban 20 mg tablet 20 mg PO DAILY Qty: 90 3RF Hold Instructions: Resume on 11/27/21. If pacemaker / wound check stable. Rx Instructions: Hold after dose on 11/17/2021 for pacemaker placement fludrocortisone 0.1 mg tablet 0.1 mg PO DAILY Qty: 90 3RF Discontinued metoprolol tartrate 50 mg tablet 50 mg PO BID Qty: 180 3RF Referrals / Follow Up: Dc Glez MD [Primary Care Provider] - Within 1 Week Robbie Sullivan NP, TUBE SPLICER-C [Med Staff - [facility] Practice Prof] - Within 1 Month Disposition Disposition (needs filled in before D/C Order can be placed): Home, Self Care Charges/Coding Visit Charges Inpatient E&M: 80442 Disch Hosp >30min 03/12/23 1512 <Electronically signed by Chaparro Gaines MD> Cosigner Signature (if applicable): CC: Dr. Chaparro Gaines MD; Dr. Dc Glez MD~ Signed [facility] Work Phone: evaluation noteNo assessment information available [facility] Work Phone: evaluation note* Diagnosis Onset Date Resolution Status Hypersomnolence acute director long term care 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 amiodarone acute Asymptomatic premature ventricular contractions chronic Factor V Leiden chronic Paroxysmal atrial fibrillation chronic Wide-complex tachycardia chr onic Bradycardia acute Syncope and collapse acute [facility] Work Phone: evaluation note* Diagnosis Onset Date Resolution Status halfway 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 amiodarone acute Asymptomatic premature ventricular contractions chronic Factor V Leiden chronic Paroxysmal atrial fibrillation chronic Wide-complex tachycardia chr onic Bradycardia acute halfway 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 amiodarone acute halfway 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 anticoagulant acute Occipital scalp laceration a cute Syncope and collapse acute Asymptomatic premature ventricular contractions chronic Factor V Leiden chronic Paroxysmal atrial fibrillation chronic Premature atrial contraction chronic Wide-complex tachycardia chr onic [facility] Work Phone: evaluation note* Diagnosis Onset Date Resolution Status director long term care 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 amiodarone acute Asymptomatic premature ventricular contractions chronic Factor V Leiden chronic Paroxysmal atrial fibrillation chronic Wide-complex tachycardia chr onic Bradycardia acute halfway 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 amiodarone acute director long term care 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 anticoagulant acute Occipital scalp laceration a cute Syncope and collapse acute Asymptomatic premature ventricular contractions chronic Factor V Leiden chronic Paroxysmal atrial fibrillation chronic Premature atrial contraction chronic Wide-complex tachycardia chr onic Bradycardia acute Sick sinus syndrome acute Syncope and collapse acute Sick sinus syndrome acute Paroxysmal atrial fibrillation chronic [facility] Work Phone: evaluation note* Diagnosis Onset Date Resolution Status Bradycardia acute Factor V Leiden acute Occipital scalp laceration a cute Paroxysmal atrial fibrillation acute Wide-complex tachycardia acu te Bradycardia acute Paroxysmal atrial fibrillation acute Sick sinus syndrome acute Bradycardia acute Paroxysmal atrial fibrillation acute Presence of cardiac pacemaker acute Presence of cardiac pacemaker acute Sick sinus syndrome acute Factor V Leiden acute Paroxysmal atrial fibrillation acute Presence of cardiac pacemaker acute Sick sinus syndrome acute Wide-complex tachycardia acu te Paroxysmal atrial fibrillation acute Presence of cardiac pacemaker acute Sick sinus syndrome acute Wide-complex tachycardia acu te [facility] Work Phone: Evaluation note* Diagnosis Onset Date Resolution Status Paroxysmal atrial fibrillation acute Presence of cardiac pacemaker acute Sick sinus syndrome acute Factor V Leiden acute Paroxysmal atrial fibrillation acute Presence of cardiac pacemaker acute Sick sinus syndrome acute Wide-complex tachycardia acu te Dizziness chronic [facility] Work Phone: Evaluation note* Diagnosis Onset Date Resolution Status Paroxysmal atrial fibrillation acute Presence of cardiac pacemaker acute Sick sinus syndrome acute Atrial flutter acute Presence of cardiac pacemaker acute Sick sinus syndrome acute Atrial flutter acute Presence of cardiac pacemaker acute Sick sinus syndrome acute [facility] Work Phone: Evaluation note* Diagnosis Onset Date Resolution Status Paroxysmal atrial fibrillation chronic Presence of cardiac pacemaker chronic Sick sinus syndrome resolved Atrial flutter acute Presence of cardiac pacemaker chronic Sick sinus syndrome resolved Atrial flutter acute Presence of cardiac pacemaker chronic Sick sinus syndrome resolved Asymptomatic premature ventricular contractions chronic Factor V Leiden chronic Paroxysmal atrial fibrillation chronic Presence of cardiac pacemaker chronic Wide-complex tachycardia chr onic Dizziness resolved Sick sinus syndrome resolved [facility] Work Phone: Evaluation note* Diagnosis Onset Date Resolution Status Asymptomatic premature ventricular contractions chronic Factor V Leiden chronic Paroxysmal atrial fibrillation chronic Presence of cardiac pacemaker chronic Wide-complex tachycardia chr onic Dizziness resolved Sick sinus syndrome resolved [facility] Work Phone: Evaluation note* Diagnosis Onset Date Resolution Status Atrial fibrillation with rapid ventricular response acute Chronic anticoagulation acut e Hx of adrenal insufficiency acute Near syncope acute Chronic hypotension chronic Presence of cardiac pacemaker chronic [facility] Work Phone: Hospital Discharge instructions Additional Instructions Please remain hydrated and we lowered her metoprolol from 50 mg p.o. twice daily to 25 mg p.o. twice daily. If you notice any palpitations please return to the hospital.[facility] Work Phone: Hospital Discharge instructionsAmbulatory Orders* Electrophysiology Location: None Selected [facility] Work Phone: Reason for referral (narrative)No reason for referral information availableWProMed[facility] Work Phone: Summary Purpose Family History No Family History Records Found Relationship Condition Age at Onset Recorded Date/T bertha Unknown Family History?- Unknown November 10:24am Family History?- Unknown November 10:24am Family History?Diabetes Unknown Octo 2017 10:24am Relationship Condition Age at Onset Recorded Date/T bertha mother Ulcerative colitis Unknown father Diabetes mellitus Unknown Hypertension Unknown Benign prostatic hyperplasia Unknown Advance Directives No Advanced Directives Records Found Advance Directive Response Recorded Date/ Time Living Will No December 22 2:43pm Power of Tankroom Worker No December 22, 2020 2:43pm Advance Directive Response Recorded Date/ Time Living Will No November 10, 2021 7:22pm Power of Tankroom Worker No October 7:22pm Advance Directive Response Recorded Date/ Time Living Will No November 10, 2021 9:24pm Power of Tankroom Worker No October 9:24pm Advance Directive Response Recorded Date/ Time Living Will No November 14, 2021 10:58am Power of Tankroom Worker No October 10:58am Advance Directive Response Recorded Date/ Time Advance Directives No October 9:32am Living Will No November 19, 2021 1:24pm Power of Tankroom Worker No October 1:24pm Advance Directive Response Recorded Date/ Time Advance Directives No October 8:32am Living Will No February 06 9:46am Power of Tankroom Worker No February 06, 2022 9:46am Advance Directive Response Recorded Date/ Time Advance Directives No October 9:32am Living Will No February 06 10:46am Power of Tankroom Worker No February 06, 2022 10:46am Advance Directive Response Recorded Date/ Time Advance Directives No October 9:32am Living Will No September 18, 2022 10:06am Power of Tankroom Worker No September 18 10:06am Advance Directive Response Recorded Date/ Time Advance Directives No December 13, 2022 10:28am Living Will No December 13 10:28am Power of Tankroom Worker No December 13, 2022 10:28am Advance Directive Response Recorded Date/ Time Advance Directives No December 13, 2022 9:28am Living Will No December 13 9:28am Power of Tankroom Worker No December 13, 2022 9:28am Advance Directive Response Recorded Date/ Time Advance Directives No December 13, 2022 9:28am Living Will No March 11 10:10pm Power of Tankroom Worker No March 11, 2023 10:10pm Advance Directive Response Recorded Date/ Time Advance Directives No December 13, 2022 9:28am Living Will No March 12 2:25am Power of Tankroom Worker No March 12, 2023 2:25am Advance Directive Response Recorded Date/ Time Advance Directives No May 12 024 10:33am Living Will No May 13, 2023 1:35pm Power of Tankroom Worker No May 12 1:35pm Advance Directive Response Recorded Date/ Time Living Will No May 13, 2023 1:35pm Power of Tankroom Worker No May 12 1:35pm Advance Directives No October 9:32am Advance Directive Response Recorded Date/ Time Advance Directives No May 15 025 9:06am Advance Directive Response Recorded Date/ Time Living Will No May 16, 2024 11:09am Do you have a [facility] Power of Tankroom Worker? No May 16, 2024 11:09am Advance Directives No May 16 025 11:09am Advance Directive Response Recorded Date/ Time Advance Directives No May 16 025 11:09am Chief Complaint and Reason for Visit Chief Complaint LEG PAIN Chief Complaint LEG PAIN DIZZINESS F/U syncope, holter labs Je SYNCOPE, BRADYCARDIA Reason for Visit Hypersomnolence director long term care 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 amiodarone Asymptomatic premature ventricular contractions Factor V Leiden Paroxysmal atrial fibrillation Wide-complex tachycardia Bradycardia Syncope and collapse Chief Complaint LEG PAIN DIZZINESS F/U syncope, holter labs Je SYNCOPE, BRADYCARDIA SYNCOPE, BRADYCARDIA SYNCOPE, BRADYCARDIA SYNCOPE, BRADYCARDIA SYNCOPE, BRADYCARDIA SYNCOPE, BRADYCARDIA SYNCOPE, BRADYCARDIA Reason for Visit director long term care current us e of amiodarone Asymptomatic premature ventricular contractions Factor V Leiden Paroxysmal atrial fibrillation Wide-complex tachycardia Bradycardia halfway 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 amiodarone director long term care 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 anticoagulant Occipital scalp laceration Syncope and collapse Asymptomatic premature ventricular contractions Factor V Leiden Paroxysmal atrial fibrillation Premature atrial contraction Wide-complex tachycardia Chief Complaint LEG PAIN DIZZINESS F/U syncope, holter labs L.[place]orson SYNCOPE, BRADYCARDIA SYNCOPE, BRADYCARDIA SYNCOPE, BRADYCARDIA SYNCOPE, BRADYCARDIA SYNCOPE, BRADYCARDIA SYNCOPE, BRADYCARDIA SYNCOPE, BRADYCARDIA ALLERGIC REACTION Reason for Visit halfway current us e of amiodarone Asymptomatic premature ventricular contractions Factor V Leiden Paroxysmal atrial fibrillation Wide-complex tachycardia Bradycardia halfway 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 amiodarone halfway 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 anticoagulant Occipital scalp laceration Syncope and collapse Asymptomatic premature ventricular contractions Factor V Leiden Paroxysmal atrial fibrillation Premature atrial contraction Wide-complex tachycardia Chief Complaint LEG PAIN DIZZINESS F/U syncope, holter labs L.[place]orson SYNCOPE, BRADYCARDIA SYNCOPE, BRADYCARDIA SYNCOPE, BRADYCARDIA SYNCOPE, BRADYCARDIA SYNCOPE, BRADYCARDIA SYNCOPE, BRADYCARDIA SYNCOPE, BRADYCARDIA ALLERGIC REACTION PPM teaching for DPPM on 11/19/21 ALLERGIC REACTION SSS, PAF IMPATIENT 1st day post implant check SSS, PAF Reason for Visit director long term care current us e of amiodarone Asymptomatic premature ventricular contractions Factor V Leiden Paroxysmal atrial fibrillation Wide-complex tachycardia Bradycardia director long term care 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 amiodarone halfway 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 anticoagulant Occipital scalp laceration Syncope and collapse Asymptomatic premature ventricular contractions Factor V Leiden Paroxysmal atrial fibrillation Premature atrial contraction Wide-complex tachycardia Bradycardia Sick sinus syndrome Syncope and collapse Sick sinus syndrome Paroxysmal atrial fibrillation Chief Complaint SYNCOPE, BRADYCARDIA SYNCOPE, BRADYCARDIA SYNCOPE, BRADYCARDIA SYNCOPE, BRADYCARDIA SYNCOPE, BRADYCARDIA SYNCOPE, BRADYCARDIA SYNCOPE, BRADYCARDIA ALLERGIC REACTION PPM teaching for DPPM on 11/19/21 ALLERGIC REACTION SSS, PAF IMPATIENT 1st day post implant check SSS, PAF 1 wk s/p PPM implant wound check 6 wk post PPM implant f/u Sees [facility] @ 8:30am allergic reaction Reason for Visit Bradycardia Factor V Leiden Occipital scalp laceration Paroxysmal atrial fibrillation Wide-complex tachycardia Bradycardia Paroxysmal atrial fibrillation Sick sinus syndrome Bradycardia Paroxysmal atrial fibrillation Presence of cardiac pacemaker Presence of cardiac pacemaker Sick sinus syndrome Factor V Leiden Paroxysmal atrial fibrillation Presence of cardiac pacemaker Sick sinus syndrome Wide-complex tachycardia Paroxysmal atrial fibrillation Presence of cardiac pacemaker Sick sinus syndrome Wide-complex tachycardia Chief Complaint allergic reaction 3 mos remote PPM f/u 3 m fu Reason for Visit Paroxysmal atrial fi brillation Presence of cardiac pacemaker Sick sinus syndrome Factor V Leiden Paroxysmal atrial fibrillation Presence of cardiac pacemaker Sick sinus syndrome Wide-complex tachycardia Dizziness Chief Complaint 3 mos remote PPM f/u 3 m fu BALANCE & DIZZINESS. RX HERE Reason for Visit Paroxysmal atrial fi brillation Presence of cardiac pacemaker Sick sinus syndrome Factor V Leiden Paroxysmal atrial fibrillation Presence of cardiac pacemaker Sick sinus syndrome Wide-complex tachycardia Dizziness Chief Complaint BALANCE & DIZZINESS. RX HERE 6 mos remote PPM f/u remote ALERT for AT/AF burden ALERT, REMOTE PPM F/U allergic reaction Reason for Visit Paroxysmal atrial fi brillation Presence of cardiac pacemaker Sick sinus syndrome Atrial flutter Presence of cardiac pacemaker Sick sinus syndrome Atrial flutter Presence of cardiac pacemaker Sick sinus syndrome Chief Complaint 6 mos remote PPM f/u remote ALERT for AT/AF burden ALERT, REMOTE PPM F/U allergic reaction 2 M FU Reason for Visit Paroxysmal atrial fi brillation Presence of cardiac pacemaker Sick sinus syndrome Atrial flutter Presence of cardiac pacemaker Sick sinus syndrome Atrial flutter Presence of cardiac pacemaker Sick sinus syndrome Asymptomatic premature ventricular contractions Factor V Leiden Paroxysmal atrial fibrillation Presence of cardiac pacemaker Wide-complex tachycardia Dizziness Sick sinus syndrome Chief Complaint allergic reaction 2 M FU PAROXYSMAL ATRIAL FIBRILLATION PAROXYSMAL ATRIAL FIBRILLATION PAROXYSMAL ATRIAL FIBRILLATION Reason for Visit Asymptomatic prematu re ventricular contractions Factor V Leiden Paroxysmal atrial fibrillation Presence of cardiac pacemaker Wide-complex tachycardia Dizziness Sick sinus syndrome Chief Complaint PAROXYSMAL ATRIAL FI BRILLATION PAROXYSMAL ATRIAL FIBRILLATION PAROXYSMAL ATRIAL FIBRILLATION PAROXYSMAL ATRIAL FIBRILLATION S/P DCCV 1 WK EKG Chief Complaint PAROXYSMAL ATRIAL FI BRILLATION PAROXYSMAL ATRIAL FIBRILLATION PAROXYSMAL ATRIAL FIBRILLATION PAROXYSMAL ATRIAL FIBRILLATION S/P DCCV 1 WK EKG NEAR SYNCOPE, AFIB WITH RVR AND ORTHOSTATIC Reason for Visit Atrial fibrillation with rapid ventricular response Chronic anticoagulation Hx of adrenal insufficiency Near syncope Chronic hypotension Presence of cardiac pacemaker Chief Complaint PAROXYSMAL ATRIAL FI BRILLATION PAROXYSMAL ATRIAL FIBRILLATION PAROXYSMAL ATRIAL FIBRILLATION PAROXYSMAL ATRIAL FIBRILLATION S/P DCCV 1 WK EKG NEAR SYNCOPE, AFIB WITH RVR AND ORTHOSTATIC Reason for Visit Atrial fibrillation with rapid ventricular response Atrial flutter Chronic anticoagulation History of left heart catheterization (LHC) Hx of adrenal insufficiency Near syncope Chronic hypotension Paroxysmal atrial fibrillation Presence of cardiac pacemaker Sick sinus syndrome Chief Complaint Pacer Check Remote NEAR SYNCOPE, AFIB WITH RVR AND ORTHOSTATIC NEAR SYNCOPE, AFIB WITH RVR AND ORTHOSTATIC S/P [facility] 03/12 Pacer Check Remote Atrial fibrillation AFIB Atrial fibrillation Atrial fibrillation Atrial fibrillation Reason for Visit Atrial fibrillation with rapid ventricular response Atrial flutter Chronic anticoagulation History of left heart catheterization (LHC) Hx of adrenal insufficiency Near syncope Chronic hypotension Paroxysmal atrial fibrillation Presence of cardiac pacemaker Sick sinus syndrome Asymptomatic premature ventricular contractions Factor V Leiden Paroxysmal atrial fibrillation Presence of cardiac pacemaker Wide-complex tachycardia Atrial fibrillation with rapid ventricular response Chronic anticoagulation Persistent atrial fibrillation Chronic hypotension Factor V Leiden Presence of cardiac pacemaker Sick sinus syndrome Chief Complaint Admit Date Pacer Check Remote January 10, 2024 2:50am 3 M FU January 11, 2024 2:26pm Pacer Check Remote February 13, 2024 6:31am Pacer Check Remote February 15, 2024 7:35am Pacer Check Remote February 17, 2024 8:40am Pacer Check Remote March 19, 2024 8 :51am DCCV Discussion/EKG May 04, 2024 1:1 6pm Reason for Visit Admit Date Paroxysmal atrial fibrillation January 11, 2024 2:26pm Presence of cardiac pacemaker December 232023 2:26pm Wide-complex tachycardia January 11, 2024 2:26pm Persistent atrial fibrillation April 1:16pm Presence of cardiac pacemaker April 1:16pm Wide-complex tachycardia May 04 1:16pm Chief Complaint Admit Date Pacer Check Remote February 13, 2024 6:31am Pacer Check Remote February 15, 2024 7:35am Pacer Check Remote February 17, 2024 8:40am Pacer Check Remote March 19, 2024 8 :51am DCCV Discussion/EKG May 04, 2024 1:1 6pm Reason for Visit Admit Date Persistent atrial fibrillation April 1:16pm Presence of cardiac pacemaker April 1:16pm Wide-complex tachycardia May 04 1:16pm Chief Complaint Admit Date Pacer Check Remote February 13, 2024 6:31am Pacer Check Remote February 15, 2024 7:35am Pacer Check Remote February 17, 2024 8:40am Pacer Check Remote March 19, 2024 8 :51am DCCV Discussion/EKG May 04, 2024 1:1 6pm AFIB May 16, 2024 10: 31am Atrial fibrillation May 16, 2024 12: 48pm Atrial fibrillation May 16, 2024 1:0 1pm Chief Complaint Admit Date Pacer Check Remote March 19, 2024 8 :51am DCCV Discussion/EKG May 04, 2024 1:1 6pm Pacer Check Remote May 16, 2024 6:1 9am AFIB May 16, 2024 10: 31am Atrial fibrillation May 16, 2024 12: 48pm Atrial fibrillation May 16, 2024 1:0 1pm 1 W DCCV May 24, 2024 1:06 pm 6 M FU July 11, 2024 2:40p m Chief Complaint Admit Date DCCV Discussion/EKG May 04, 2024 1:1 6pm Pacer Check Remote May 16, 2024 6:1 9am AFIB May 16, 2024 10: 31am Atrial fibrillation May 16, 2024 12: 48pm Atrial fibrillation May 16, 2024 1:0 1pm 1 W DCCV May 24, 2024 1:06 pm 6 M FU July 11, 2024 2:40p m Reason for Visit Admit Date Persistent atrial fibrillation April 1:16pm Presence of cardiac pacemaker April 1:16pm Wide-complex tachycardia May 04 1:16pm Orthostatic hypotension July 11, 2024 2 :40pm Persistent atrial fibrillation July 11, 2024 2:40pm Presence of cardiac pacemaker July 11, 2024 2:40pm Chief Complaint Admit Date DCCV Discussion/EKG May 04, 2024 1:1 6pm Pacer Check Remote May 16, 2024 6:1 9am AFIB May 16, 2024 10: 31am Atrial fibrillation May 16, 2024 12: 48pm Atrial fibrillation May 16, 2024 1:0 1pm 1 W DCCV May 24, 2024 1:06 pm 6 M FU July 11, 2024 2:40p m Pacer Check Remote August 15, 2024 2:11 am Chief Complaint Admit Date 6 M FU July 11, 2024 2:40p m Pacer Check Remote August 15, 2024 2:11 am ESTABLISH 2024 11 :30am Reason for Visit Admit Date Orthostatic hypotension July 11, 2024 2 :40pm Persistent atrial fibrillation July 11, 2024 2:40pm Presence of cardiac pacemaker July 11, 2024 2:40pm Chief Complaint Admit Date Pacer Check Remote August 15, 2024 2:11 am ESTABLISH 2024 11 :30am Pacer Check Remote November 14, 2024 7:49am Reason for Visit Admit Date Persistent atrial fibrillation October 112024 11:30am Presence of cardiac pacemaker September 11:30am Sick sinus syndrome 2024 11 :30am Additional Source Comments (unrecognized sect ion and content) No Status Records FoundNo Status Records FoundNo Status Records FoundNo Status Records FoundNo Status Records Found INFORMATION SOURCE (unrecogn ized section and content) DATE CREATED AUTHOR 12/20/2017 [facility] DATE CREATED AUTHOR AUTHOR'S ORGANIZ ATION 01/31/2018 [facility] DATE CREATED AUTHOR AUTHOR'S ORGANIZ ATION 05/16/2020 [facility] DATE CREATED AUTHOR AUTHOR'S ORGANIZ ATION 09/22/2024 [facility] DATE CREATED AUTHOR AUTHOR'S ORGANIZ ATION 12/08/2024 [facility] Goals (unrecognized section and content) Goals may be documented in a n alternate sectionGoals may be documented in an alternate sectionGoals may be documented in an alternate sectionGoals may be documented in an alternate sectionGoals may be documented in an alternate sectionGoals may be documented in an alternate sectionGoals may be documented in an alternate sectionGoals may be documented in an alternate sectionGoals may be documented in an alternate sectionGoals may be documented in an alternate sectionGoals may be documented in an alternate sectionGoals may be documented in an alternate sectionGoals may be documented in an alternate sectionGoals may be documented in an alternate sectionGoals may be documented in an alternate sectionGoals may be documented in an alternate sectionGoals may be documented in an alternate section Care Teams (unrecognized sec tion and content) Team Status: Active Member Role Status Dates Dr. Dc Glez MD Family Provider Active Dr. Dc Glez MD Primary Care Provider Active Team Status: Inactive Member Role Status Dates Dr. Dc Glez MD Primary Care Provider, Referring Provider Active Francisca Longoria Attending Provider Active Team Status: Inactive Member Role Status Dates Dr. Dc Glez MD Primary Care Provider, Referring Provider Active Robbie Sullivan TUBE SPLICER, TUBE SPLICER-C Attending Provider Active Team Status: Inactive Member Role Status Dates Dr. Dc Glez MD Primary Care Provider Active Dr. Sukhwinder Rashid DO Attending Provider, Emergency Provider Active Team Status: Inactive Member Role Status Dates Dr. Dc Glez MD Primary Care Provi shila, Attending Provider, Referring Provider Active Team Status: Inactive Member Role Status Dates Dr. Dc Glez MD Primary Care Provider Active Francisca Longoria Active Dr. Trae Cano MD Attending Provider, Referring Pro vider Active Team Status: Inactive Member Role Status Dates Dr. Dc Glez MD Primary Care Provider Active Dr. Caryl Vann MD Emergency Provider Active Team Status: Inactive Member Role Status Dates Dr. Dc Glez MD Primary Care Provider, Attending Provider Active Team Status: Inactive Member Role Status Dates Dr. Dc Glez MD Primary Care Provider Active Dr. Caryl Vann MD Attending Provider, Emergency Provider Active Team Status: Active Member Role Status Dates Dr. Dc Glez MD Primary Care Provider Active Dr. Trae Cano MD Attending Provider, Other Provide r Active Team Status: Active Member Role Status Dates Dr. Dc Glez MD Primary Care Provider Active Dr. Trae Cano MD Attending Provider, Referring Provider, Other Provider Active Team Status: Inactive Member Role Status Dates Dr. Dc Glez MD Primary Care Provider Active Dr. Trae Cano MD Attending Provider, Referring Pro vider Active Team Status: Inactive Member Role Status Dates Dr. Dc Glez MD Primary Care Provider, Referring Provider Active Dr. Trae Cano MD Attending Provider Active Team Status: Active Member Role Status Dates Dr. Dc Glez MD Primary Care Provider Active Dr. Trae Cano MD Referring Provider, Other Provide r Active Dr. Avinash Wilson MD Attending Provider Active Team Status: Inactive Member Role Status Dates Dr. Dc Glez MD Primary Care Provider Active Dr. Duncan Spencer MD Attending Provider, Referring P rovider Active Team Status: Active Member Role Status Dates Dr. Dc Glez MD Primary Care Provider Active Dr. Rene Gunter MD Emergency Provider Active Dr. Ann Marie Castellano DO Admit Provider , Attending Provider, Referring Provider Active Team Status: Inactive Member Role Status Dates Dr. Dc Glez MD Primary Care Provider Active Dr. Rene Gunter MD Emergency Provider Active Dr. Ann Marie Castellano DO Admit Provider , Referring Provider, Other Provider Active Julisa Banda Other Provider Active Dr. Daija Cortes MD Other Provider Active Dr. Ko Sanchez MD Other Provider Active Dr. Olivier Bullock MD Other Provider Active Dr. Claude Carcamo MD Other Provider Active Dr. Trae Cano MD Other Provider Active Dr. Talat Rios MD Other Provider Active Dr. Dhruv Rosas MD Other Provider Active Dr. Reece Preston MD Other Provider Active Dr. Shlomo Neely MD Other Provider Active Dr. Memo Gallo MD Other Provider Active Dr. Jeni Harkins MD Other Provider Active Dr. Kike Ritchie MD Other Provider Active Dr. Dc Mazariegos MD Other Provider Active Dr. Varinder Luciano MD Other Provider Active Dr. Butch Gamble MD Other Provider Active Dr. Trevor Prieto MD Other Provider Active Robbie Sullivan TUBE SPLICER, TUBE SPLICER-C Other Provider Active Julisa Howard TUBE SPLICER, TUBE SPLICER-C Other Provider Active Kia Kirkpatrick PA, PA Other Provider Active Dr. Chaparro Gaines MD Attending Provider Active Team Status: Active Member Role Status Dates Dr. Dc Glez MD Primary Care Provider Active Dr. Rene Gunter MD Emergency Provider Active Dr. Ann Marie Castellano DO Admit Provider , Referring Provider, Other Provider Active Julisa Banda Other Provider Active Dr. Daija Cortes MD Other Provider Active Dr. Ko Sanchez MD Other Provider Active Dr. Olivier Bullock MD Other Provider Active Dr. Claude Carcamo MD Other Provider Active Dr. Trae Cano MD Other Provider Active Dr. Talat Rios MD Other Provider Active Dr. Dhruv Rosas MD Other Provider Active Dr. Reece Preston MD Attending Provider, Other Provid er Active Dr. Shlomo Neley MD Other Provider Active Dr. Memo Gallo MD Other Provider Active Dr. Jeni Harkins MD Other Provider Active Dr. Kike Ritchie MD Other Provider Active Dr. Dc Mazariegos MD Other Provider Active Dr. Varinder Luciano MD Other Provider Active Dr. Butch Gamble MD Other Provider Active Dr. Trevor Prieto MD Other Provider Active Robbie Sullivan TUBE SPLICER, TUBE SPLICER-C Other Provider Active Julisa Howard TUBE SPLICER, TUBE SPLICER-C Other Provider Active Kia Kirkpatrick PA, PA Other Provider Active Dr. Chaparro Gaines MD Other Provider Active Team Status: Inactive Member Role Status Dates Dr. Dc Glez MD Primary Care Provider, Referring Provider Active Kia Kirkpatrick PA, PA Attending Provider Active Team Status: Active Member Role Status Dates Dr. Dc Glez MD Primary Care Provider Active Dr. Trae Cano MD Referring Provider, Other Provide r Active Kia Kirkpatrick PA, PA Attending Provider, Other Provider Active Team Status: Active Member Role Status Dates Dr. Dc Glez MD Primary Care Provider Active Dr. Trae Cano MD Attending Provider, Referring Provider, Other Provider Active Kia Kirkpatrick PA, PA Other Provider Active Team Status: Active Member Role Status Dates Dr. Dc Glez MD Primary Care Provider Active Dr. Trae Cano MD Referring Provider, Other Provide r Active Kia Kirkpatrick PA, PA Other Provider Active Dr. Sanjiv Bowden DO Attending Provider Active Team Status: Active Member Role Status Dates Dr. Dc Glez MD Primary Care Provider Active Dr. Trae Cano MD Admit Provider, Ref erring Provider, Other Provider Active Kia Kirkpatrick PA, PA Other Provider Active Dr. Reece Preston MD Attending Provider Active Team Status: Inactive Member Role Status Dates Dr. Dc Glez MD Primary Care Provider Active Dr. Trae Cano MD Admit Provider, Att ending Provider, Referring Provider Active Kia Kirkpatrick PA, PA Other Provider Active Team Status: Active Member Role Status Dates Dr. Dc Glez MD Primary Care Provider Active Team Status: Inactive Member Role Status Dates Dr. Dc Glez MD Primary Care Provider Active Start: January 10, 2024 End: January 10, 2024 Dr. Trae Cano MD Attending Provider Active S tart: January 10, 2024 End: January 10, 2024 Dr. Trae Cano MD Referring Provider Active S tart: January 10, 2024 End: January 10, 2024 Team Status: Inactive Member Role Status Dates Dr. Dc Glez MD Primary Care Provider Active Start: January 11, 2024 End: January 11, 2024 Dr. Dc Glez MD Referring Provider Active Start: January 11, 2024 End: January 11, 2024 Kia Kirkpatrick PA, PA Attending Provider Active Start: January 11, 2024 End: January 11, 2024 Team Status: Inactive Member Role Status Dates Dr. Dc Glez MD Primary Care Provider Active Start: February 13, 2024 End: February 13, 2024 Dr. Trae Cano MD Attending Provider Active S tart: February 13, 2024 End: February 13, 2024 Dr. Trae Cano MD Referring Provider Active S tart: February 13, 2024 End: February 13, 2024 Team Status: Inactive Member Role Status Dates Dr. Dc Glez MD Primary Care Provider Active Start: February 15, 2024 End: February 15, 2024 Dr. rTae Cano MD Attending Provider Active S tart: February 15, 2024 End: February 15, 2024 Dr. Trae Cano MD Referring Provider Active S tart: February 15, 2024 End: February 15, 2024 Team Status: Inactive Member Role Status Dates Dr. Dc Glez MD Primary Care Provider Active Start: February 17, 2024 End: February 17, 2024 Dr. Trae Cano MD Attending Provider Active S tart: February 17, 2024 End: February 17, 2024 Dr. Trae Cano MD Referring Provider Active S tart: February 17, 2024 End: February 17, 2024 Team Status: Inactive Member Role Status Dates Dr. Dc Glez MD Primary Care Provider Active Start: March 19, 2024 End: March 19, 2024 Dr. Trae Cano MD Attending Provider Active S tart: March 19, 2024 End: March 19, 2024 Dr. Trae Cano MD Referring Provider Active S tart: March 19, 2024 End: March 19, 2024 Team Status: Inactive Member Role Status Dates Dr. Dc Glez MD Primary Care Provider Active Start: April 25, 2024 End: April 25, 2024 Dr. Dc Glez MD Attending Provider Active Start: April 25, 2024 End: April 25, 2024 Dr. Dc Glez MD Referring Provider Active Start: April 25, 2024 End: April 25, 2024 Team Status: Inactive Member Role Status Dates Dr. Dc Glez MD Primary Care Provider Active Start: May 04, 2024 End: May 04, 2024 Dr. Dc Glez MD Referring Provider Active Start: May 04, 2024 End: May 04, 2024 Kia Kirkpatrick PA, PA Attending Provider Active Start: May 04, 2024 End: May 04, 2024 Team Status: Active Member Role Status Dates Dr. Dc Glez MD Primary Care Provider Active Start: May 04, 2024 Kia Kirkpatrick PA, PA Attending Provider Active Start: May 04, 2024 Kia Kirkpatrick PA, PA Referring Provider Active Start: May 04, 2024 Team Status: Inactive Member Role Status Dates Dr. Dc Glez MD Primary Care Provider Active Start: May 04, 2024 End: May 04, 2024 Kia Kirkpatrick PA, PA Attending Provider Active Start: May 04, 2024 End: May 04, 2024 Kia Kirkpatrick PA, PA Referring Provider Active Start: May 04, 2024 End: May 04, 2024 Team Status: Inactive Member Role Status Dates Dr. Dc Glez MD Primary Care Provider Active Start: May 16, 2024 End: May 16, 2024 Dr. Trae Cano MD Attending Provider Active S tart: May 16, 2024 End: May 16, 2024 Dr. Trae Cano MD Referring Provider Active S tart: May 16, 2024 End: May 16, 2024 Team Status: Active Member Role Status Dates Dr. Dc Glez MD Primary Care Provider Active Start: May 16, 2024 Dr. Trae Cano MD Referring Provider Active S tart: May 16, 2024 Dr. Trae Cano MD Other Provider Active Start : May 16, 2024 Dr. Sanjiv Bowden DO Attending Provider Active S tart: May 16, 2024 Team Status: Active Member Role Status Dates Dr. Dc Glez MD Primary Care Provider Active Start: May 16, 2024 Dr. Trae Cano MD Attending Provider Active S tart: May 16, 2024 Dr. Trae Cano MD Referring Provider Active S tart: May 16, 2024 Dr. Trae Cano MD Other Provider Active Start : May 16, 2024 Team Status: Inactive Member Role Status Dates Dr. Dc Glez MD Primary Care Provider Active Start: May 24, 2024 End: May 24, 2024 Dr. Dc Glez MD Referring Provider Active Start: May 24, 2024 End: May 24, 2024 Dr. Trae Cano MD Attending Provider Active S tart: May 24, 2024 End: May 24, 2024 Team Status: Inactive Member Role Status Dates Dr. Dc Glez MD Primary Care Provider Active Start: July 11, 2024 End: July 11, 2024 Dr. Dc Glez MD Referring Provider Active Start: July 11, 2024 End: July 11, 2024 MAE Asencio Attending Provider Active St art: July 11, 2024 End: July 11, 2024 Team Status: Inactive Member Role Status Dates Dr. Dc Glez MD Primary Care Provider Active Start: July 26, 2024 End: July 26, 2024 Dr. Dc Glez MD Attending Provider Active Start: July 26, 2024 End: July 26, 2024 Dr. Dc Glez MD Referring Provider Active Start: July 26, 2024 End: July 26, 2024 Team Status: Active Member Role/Relationship Status Dates Dr. Dc Glez MD Primary Care Provider Active Team Status: Inactive Member Role/Relationship Status Dates Dr. Dc Glez MD Primary Care Provider Active Start: April 25, 2024 End: April 25, 2024 Dr. Dc Glez MD Attending Provider Active Start: April 25, 2024 End: April 25, 2024 Dr. Dc Glez MD Referring Provider Active Start: April 25, 2024 End: April 25, 2024 Team Status: Inactive Member Role/Relationship Status Dates Dr. Dc Glez MD Primary Care Provider Active Start: May 04, 2024 End: May 04, 2024 Dr. Dc Glez MD Referring Provider Active Start: May 04, 2024 End: May 04, 2024 Kia WALL, PA Attending Provider Active Start: May 04, 2024 End: May 04, 2024 Team Status: Inactive Member Role/Relationship Status Dates Dr. Dc Glez MD Primary Care Provider Active Start: May 04, 2024 End: May 04, 2024 Kia WALL PA Attending Provider Active Start: May 04, 2024 End: May 04, 2024 Kia WALL PA Referring Provider Active Start: May 04, 2024 End: May 04, 2024 Team Status: Inactive Member Role/Relationship Status Dates Dr. Dc Glez MD Primary Care Provider Active Start: May 16, 2024 End: May 16, 2024 Dr. Trae Cano MD Attending Provider Active S tart: May 16, 2024 End: May 16, 2024 Dr. Trae Cano MD Referring Provider Active S tart: May 16, 2024 End: May 16, 2024 Team Status: Inactive Member Role/Relationship Status Dates Dr. Dc Glez MD Primary Care Provider Active Start: May 16, 2024 End: May 16, 2024 Dr. Trae Cano MD Attending Provider Active S tart: May 16, 2024 End: May 16, 2024 Dr. Trae Cano MD Referring Provider Active S tart: May 16, 2024 End: May 16, 2024 Team Status: Active Member Role/Relationship Status Dates Dr. Dc Glez MD Primary Care Provider Active Start: May 16, 2024 Dr. Trae Cano MD Referring Provider Active S tart: May 16, 2024 Dr. Trae Cano MD Other Provider Active Start : May 16, 2024 Dr. Sanjiv Bowden DO Attending Provider Active S tart: May 16, 2024 Team Status: Active Member Role/Relationship Status Dates Dr. Dc Glez MD Primary Care Provider Active Start: May 16, 2024 Dr. Trae Cano MD Attending Provider Active S tart: May 16, 2024 Dr. Trae Cano MD Referring Provider Active S tart: May 16, 2024 Dr. Trae Cano MD Other Provider Active Start : May 16, 2024 Team Status: Inactive Member Role/Relationship Status Dates Dr. Dc Glez MD Primary Care Provider Active Start: May 24, 2024 End: May 24, 2024 Dr. Dc Glez MD Referring Provider Active Start: May 24, 2024 End: May 24, 2024 Dr. Trae Cano MD Attending Provider Active S tart: May 24, 2024 End: May 24, 2024 Team Status: Inactive Member Role/Relationship Status Dates Dr. Dc Glez MD Primary Care Provider Active Start: July 11, 2024 End: July 11, 2024 Dr. Dc Glez MD Referring Provider Active Start: July 11, 2024 End: July 11, 2024 MAE Asencio Attending Provider Active St art: July 11, 2024 End: July 11, 2024 Team Status: Inactive Member Role/Relationship Status Dates Dr. Dc Glez MD Primary Care Provider Active Start: July 26, 2024 End: July 26, 2024 Dr. Dc Glez MD Attending Provider Active Start: July 26, 2024 End: July 26, 2024 Dr. Dc Glez MD Referring Provider Active Start: July 26, 2024 End: July 26, 2024 Team Status: Inactive Member Role/Relationship Status Dates Dr. Dc Glez MD Primary Care Provider Active Start: August 15, 2024 End: August 15, 2024 Dr. Trae Cano MD Attending Provider Active S tart: August 15, 2024 End: August 15, 2024 Team Status: Inactive Member Role/Relationship Status Dates Dr. Dc Glez MD Primary Care Provider Active Start: July 11, 2024 End: July 11, 2024 Dr. Dc Glez MD Referring Provider Active Start: July 11, 2024 End: July 11, 2024 MAE Asencio Attending Provider Active St art: July 11, 2024 End: July 11, 2024 Team Status: Inactive Member Role/Relationship Status Dates Dr. Dc Glez MD Primary Care Provider Active Start: July 26, 2024 End: July 26, 2024 Dr. Dc Glez MD Attending Provider Active Start: July 26, 2024 End: July 26, 2024 Dr. Dc Glez MD Referring Provider Active Start: July 26, 2024 End: July 26, 2024 Team Status: Inactive Member Role/Relationship Status Dates Dr. Dc Glez MD Primary Care Provider Active Start: August 15, 2024 End: August 15, 2024 Dr. Trae Cano MD Attending Provider Active S tart: August 15, 2024 End: August 15, 2024 Team Status: Inactive Member Role/Relationship Status Dates Dr. Dc Glez MD Primary Care Provider Active Start: 2024 End: 2024 Dr. Dc Glez MD Referring Provider Active Start: 2024 End: 2024 Dr. Amado Howard MD Attending Provider Active Start: 2024 End: 2024 Team Status: Active Member Role/Relationship Status Dates Dr. Dc Glez MD Primary care physician Active Team Status: Inactive Member Role/Relationship Status Dates Dr. Dc Glez MD Primary care physician Active Start: July 26, 2024 End: July 26, 2024 Dr. Dc Glez MD Attending physician Active Start: July 26, 2024 End: July 26, 2024 Dr. Dc Glez MD Referring Provider Active Start: July 26, 2024 End: July 26, 2024 Team Status: Inactive Member Role/Relationship Status Dates Dr. Dc Glez MD Primary care physician Active Start: August 15, 2024 End: August 15, 2024 Dr. Trae Cano MD Attending physician Active Start: August 15, 2024 End: August 15, 2024 Team Status: Inactive Member Role/Relationship Status Dates Dr. Dc Glez MD Primary care physician Active Start: 2024 End: 2024 Dr. Dc Glez MD Referring Provider Active Start: 2024 End: 2024 Dr. Amado Howard MD Attending physician Active Start: 2024 End: 2024 Team Status: Inactive Member Role/Relationship Status Dates Dr. Dc Glez MD Primary care physician Active Start: November 14, 2024 End: November 14, 2024 Dr. Trae Cano MD Attending physician Active Start: November 14, 2024 End: November 14, 2024 FOR RECORDS PERTAINING TO PATIENTS WHO ARE OR HAVE BEEN ENROLLED IN A CHEMICAL DEPENDENCY/SUBSTANCEABUSE PROGRAM, SOME INFORMATION MAY BE OMITTED. This clinical summary was aggregated from multiple sources. Caution should be exercised in using it in the provision of clinical care. This summary normalizes information from multiple sources, and as a consequence, information in this document may materially change the coding, format and clinical context of patient data. In addition, data may be omitted in some cases. CLINICAL DECISIONS SHOULD BE BASED ON THE PRIMARY CLINICAL RECORDS. [facility] provides no warranty or guarantee of the accuracy or completeness of information in this document.
[2025-02-10] MEDS: Lidocaine 1% (20 ml mdv) 20 ML Vial INFILT (22:02)
--- NOTE | 2025-02-10 22:11 | EX.ED.GENINJ ---
HPI History of Present Illness Chief Complaint: Laceration Informant: patient Narrative Narrative: Patient 64-year-old male with history of chronic anticoagulation on Xarelto presenting with laceration to his left index finger. Is [id number]. Was trying to use his pocket knife to cut open a bag of trail mix and accidentally stabbed the pad of his right finger. States there is a flap. Cannot get the bleeding to stop. Came in for further evaluation. Has some localized pain at this area but no other complaints. No other injuries reported. No numbness or tingling reported. 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 Wide-complex tachycardia Asymptomatic premature ventricular contractions Premature atrial contraction Syncope and collapse Hematuria Factor V Leiden Abscess of right thigh DAYNA (acute kidney injury) Coagulopathy Septic shock Fever with exanthematous rash 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 knee joint Atrial fibrillation with RVR Elevated LFTs Acute cystitis Severe sepsis Anemia History of pulmonary embolism History of DVT (deep vein thrombosis) Home Medications ?Medication ?Instructions ?Recorded ?Last Taken ?Type epinephrine 0.3 mg/0.3 mL 0.3 mg (0.3 mL) IM Q10M PRN PRN 02/06/22 Unknown Rx injection, auto-injector (EpiPen anaphylaxis #2 ea 2-Franklin) tamsulosin 0.4 mg capsule (Flomax) 0.4 mg PO QHS 10/07/23 Unknown History rosuvastatin 5 mg tablet 5 mg PO QDAY 05/04/24 05/16/24 History fludrocortisone 0.1 mg tablet 0.1 mg PO DAILY hypotension #90 07/26/24 Unknown Rx tabs sildenafil 50 mg tablet 50 mg PO QDAY PRN 10/11/24 Unknown History rivaroxaban 20 mg tablet 20 mg PO DAILY blood thinner #90 12/10/24 Unknown Rx tabs sotalol 120 mg tablet 120 mg PO BID #60 tabs 01/18/25 Unknown Rx Allergy/AdvReac Type Severity Reaction Status Date / Time ciprofloxacin Allergy Unknown Rash Verified 02/10/25 21:31 ceftriaxone Allergy Rash Verified 02/10/25 21:31 Iodinated Contrast Media Allergy Angioedema Verified 02/10/25 21:31 (contrast dye - iodinated) linezolid Allergy Rash Verified 02/10/25 21:31 Sulfa (Sulfonamide Allergy Unknown Verified 02/10/25 21:31 Antibiotics) vancomycin Allergy Fever and Verified 02/10/25 21:31 skin rash Family History Mother Ulcerative colitis Grandfather No problems noted. 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 pets and animals: Yes (cat) Smoking Status: Never smoker alcohol intake: current details: occasional substance use type: does not use caffeine: No ROS ROS ED Constitutional Constitutional ED: Denies chills or fever(s) Musculoskeletal Musculoskeletal: Reports other Details: Left index finger pain Integumentary Reports other Details: Laceration to left index finger Neurologic Neurologic: Denies paresthesias or weakness Hematologic/Lymphatic Hematologic/Lymphatic: Reports easy bleeding, easy bruising and other Details: On Xarelto EXAM Physical Exam Const Vital Signs: 02/10/25 21:30 12 23:20 Temperature 97.6 F L Temperature Source Oral Pulse Rate 46 L 65 Respiratory Rate 12 14 Blood Pressure 131/110 H Blood Pressure Mean 117 Pulse Ox 97 94 Oxygen Delivery Method Room Air Positive well nourished and well developed General Appearance ED: well developed and NAD HEENT atraumatic Resp normal respiratory effort Cardio Cardio Narrative: 2+ radial pulses Extremity Extremity Narrative: Normal flexion and extension. No deformity of the finger. Intact nailbed. Neuro oriented x3, moves all extremities and no sensory deficits noted Psych mental status grossly normal Skin Skin Narrative: V-shaped full-thickness 1.5 cm laceration on the pad of the index finger, radial aspect. Oozing blood. PROC Procedures Lacerations Left index finger: Length: 0.59 in Depth: Skin Shape: Flap Prep: Shure-Clens Laceration repair: Digital block, Irrigated, Lidocaine and Skin sutures Irrigated (ml): 100 Number of Sutures/[place]: 3 Suture Information: Ethilon, Simple and 5-0 MDM MDM MDM Narrative Medical decision making narrative: Patient evaluated for laceration to his left index finger. Involves pad of the finger. Do not think he requires x-rays and low suspicion for bony involvement. I does have a flap that is oozing venous blood. Is neuro vastly intact. No signs of any tendon injury. Digital nerve block performed. Flap is tacked down with 3 simple interrupted sutures. Localized pressure applied to stop bleeding. Tetanus is updated. Patient be discharged home. Given wound care precautions. Counseled sutures to be removed in 14 days. Discharged home in stable condition. Discharge Plan Triage Chief Complaint: Laceration ED Provider: Bianca Mejia Dx/Rx/DC Orders Clinical Impression: Laceration of left index finger, Chronic anticoagulation, Need for [id number] (Tdap) vaccine Instructions: ED Hand Laceration- All Closures Prescriptions: No Action tamsulosin [Flomax] 0.4 mg capsule 0.4 mg PO QHS rosuvastatin 5 mg tablet 5 mg PO QDAY sildenafil 50 mg tablet 50 mg PO QDAY PRN epinephrine [EpiPen 2-Franklin] 0.3 mg/0.3 mL auto-injector 0.3 mg IM Q10M PRN PRN (Reason: anaphylaxis) Qty: 2 0RF Rx Instructions: for 2 doses fludrocortisone 0.1 mg tablet 0.1 mg PO DAILY Qty: 90 3RF rivaroxaban 20 mg tablet 20 mg PO DAILY Qty: 90 3RF sotalol 120 mg tablet 120 mg PO BID Qty: 60 3RF Primary Care Provider: Dc Glez Referrals: Dc Glez MD [Primary Care Provider, Family Practice] Activity Restrictions/Additional Instructions: Take Tylenol as needed for pain. 3 sutures were placed. They should be removed in 10 to 14 days. Follow-up sooner for wound check if there is further concerns. You do not need antibiotics at this time. Keep bandage for the next 24 to 48 hours to help scab form and stop from bleeding again. Apply [id number] bacitracin ointment with bandage changes. Print Language: Turkish Disposition Disposition: Home, Self Care Discharge Date/Time: 02/10/25 23:48
[2025-02-10 23:20] VITALS: PULSE 65; RESP 14; O2SAT 94
== END 2025-02-10 23:48 | disposition home or self-care (01) ==
PROVIDERS: Emergency Provider Emergency Medicine; PCP Family Medicine; Visit Provider Emergency Medicine
DX: S61.211A Laceration without foreign body of left index finger without damage to nail, initial encounter (principal); Z86.711 Personal history of pulmonary embolism; Z79.01 Long term (current) use of anticoagulants; Z86.718 Personal history of other venous thrombosis and embolism; X58.XXXA Exposure to other specified factors, initial encounter; Z95.0 Presence of cardiac pacemaker
CPT/HCPCS: 12001; 90715; 99282